=== PATIENT | female | born 1990 | race Caucasian/White ===

== ENCOUNTER 2016-08-09 14:54 | Emergency (ER) | payer MEDICAID ==
[~2016-08-09] VITALS: Ht 142.2 cm; Wt 40.8 kg
[~2016-08-09 14:54] MED LIST: ACET160E11 GT; CEFD250S3 PO; CETI10TA17 PO; CPR250T PO; DCS100C PO; DEPO-PROVERA; DEXL60CA5 PO; DIAZ2.5K GT; DIAZ2.5K PO; DOCU100T7 PO; GLYC1TAB11 PO; LACT1CAP62 PO; METO5TAB79 PO; MULT-608 PO; MULT-974 PO; NF-LEVELIQ GT; NITR-65 PO; NITR25OR6 GT; OMEP-10 GT; ONDA4SOL11 GT; ONDA4SOL2 GT; ONDN4T PO; OXCA600T3 PO; PANT40TA PO; PHEN100O GT; POLY17PO23 GT; PRM25T PR; SCR1T PO; SERT50TA PO; TOPI100T2 PO; TOPI200T19 PO; TPR100T PO; TRL300 PO; [UNRECOGNIZED DRUG - CODE] PO; [UNRECOGNIZED DRUG - OTHER]
--- OUTSIDE RECORDS SUMMARY | 2016-08-09 14:59 | XMS REPORT | Continuity of Care Document ---
Author Author [facility] Organization [facility] Address Unknown Phone Unavailable Care Team Providers Care Inspector Machined Parts Name Role Phone Cyril Ambrocio PCP [phone] Source Comments Some departments are not documenting in the electronic medical record. If you do not see the information that you expected, contact Release of Information in the Health Information Management department at [phone] for further assistance in locating additional records.[facility] Active Allergies and Adverse Reactions No Known Allergies Current Medications Prescription Sig. Disp. Refills Start End Date Status Date OXcarbazepine (TRILEPTAL) Take by mouth twice Active 300 mg/5 mL susp oral daily. 13.5 ml po in the suspension am and 15ml in the evening. pantoprazole DR Take 40 mg by mouth Active (PROTONIX) 40 mg tablet daily. lactulose 10 gram/15 mL Take 10 g by mouth twice Active oral solution daily. sertraline (ZOLOFT) 50 mg Take 50 mg by mouth Active tablet daily. diazepam (VALIUM) 5 mg Take 2.5 mg by mouth Active tablet daily. 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 Social History Tobacco Use Types Packs/Day Years Used Date Never Smoker Smokeless Tobacco: Never Used Tobacco Cessation: Counseling Given: Yes Comments: Alcohol Use Drinks/Week oz/Week Comments No 0 Standard 0.0 drinks or equivalent Last Filed Vital Signs Vital Sign Reading Time Taken Blood Pressure 144/100 10/15/2014 6:30 AM CDT Pulse 103 10/15/2014 6:30 AM CDT Temperature 36.7 C (98 F) 10/15/2014 6:30 AM CDT Respiratory Rate - - Height 1.295 m (4' 3") 01/29/2015 9:10 AM CDT Weight 38.556 kg (85 lb) 01/29/2015 9:10 AM CDT Body Mass Index 22.99 01/29/2015 9:10 AM CDT Oxygen Saturation 93% 10/15/2014 6:30 AM CDT Plan of Care Health Maintenance Due Date Last Done Comments Physical (Comprehensive) 1995 Exam Pertussis Vaccine 1999 Tetanus Vaccine 2005 Cervical Cancer Screening 2009 Influenza Vaccine 03/05/2016 Results from Last 3 Months Not on file
[2016-08-09] MEDS ORDERED: fentaNYL INJECTION 100 MCG/2 ML AMP IVP ONE (15:45)
[2016-08-09] MEDS ORDERED: ONDANSETRON 4 MG/2 ML (SDV) Z0FRAN IVP ONE (15:45)
[2016-08-09] MEDS ORDERED: NS IV 1000 ML 1,000 ML IV SCH (15:45)
--- NOTE | 2016-08-09 15:49 | ED Abdominal Pain ---
General Chief Complaint: -Female Stated Complaint: VOMITING/UNABLE TO URINATE Nursing Triage Note: MOTHER REPORTS PT HAS NOT BEEN VOIDING LIKE USUAL AND HAS HAD N/V TODAY. PT IS MR, BUT CRIES IN PAIN. PT HAS HX OF KIDNEY STONES. Sepsis Screen: No Definite Risk Source of Information: Patient, Caregiver, Family Exam Limitations: Physical Impairments History of Present Illness Time Seen By Provider: 15:47 Initial Comments This 18-year-old female presents with a history of foul-smelling urine for the last 2 days now with associated abdominal pain nausea and vomiting. Past medical history of significance includes ingestion of metallic objects in the past as well as previous kidney stones. Allergies and Home Medications Allergies Coded Allergies: No Known Drug Allergies (Verified , 04/03/15) Home Medications Acetaminophen 160 Mg/5 Ml Btl 320 MG PO Q6HR PRN (Reported) Cefdinir 250 Mg/5 Ml Susp.recon #90 1 TSP PO BID Prescribed by: JULITO NELSON on 11/18/14 1245 Cetirizine Hcl 10 Mg Tablet 10 MG PO DAILY (Reported) Diazepam 2.5 Mg/Kit Kit 20 MG RC PRN (Reported) Diazepam 2.5 Mg/Kit Kit 2.5 MG RC NEEDED (Reported) Docusate Sodium 100 Mg Capsule #30 100 MG PO DAILY Prescribed by: CLEMENCIA PETER on 12/27/13 1323 Lactobacillus Acidophilus 1 Each Capsule 1 EACH PO DAILY (Reported) Multivitamin 1 Each Tablet 1 EACH PO DAILY (Reported) Nitrofurantoin 25 Mg/5 Ml Oral.susp #400 20 ML GT BID Prescribed by: NUNO FLORES on 02/17/151939 Ondansetron HCl 4 Mg/5 Ml Solution #30 4 MG GT Q6H Prescribed by: NUNO FLORES on 02/17/151939 Ondansetron Hcl 4 Mg Tab #20 1 TAB PO QID PRN PRN (Reported) Oxcarbazepine 600 Mg Tablet 600 MG PO DAILY (Reported) Oxcarbazepine 600 Mg Tablet 700 MG PO HS (Reported) Sertraline Hcl 50 Mg Tablet 50 MG PO HS (Reported) Review of Systems Constitutional: No chills, No fever Past Pvgitmv-Sddhqk-Sxfzpt Hx Patient Social History Alcohol Use: Denies Use Recreational Drug Use: No Smoking Status: Never a Smoker 2nd Hand Smoke Exposure: No Recent Foreign Travel: No Contact w/Someone Who Travel: No Recent Infectious Disease Expo: No Recent Hopitalizations: Yes Immunizations Up To Date Tetanus Booster (TDap): Less than 5yrs Date of Pneumonia Vaccine: Dec 27, 2013 Date of Influenza Vaccine: Apr 04, 2014 Seasonal Allergies Seasonal Allergies: Yes Surgeries HX Surgeries: Yes (NEPHROSTOMY, G-TUBE, SALIVARY GLAND, MULTIPLE ORTHO SURGERIES, BMT'S,EGD'S ) Surgeries: Ear Surgery, Eye Surgery, Gallbladder, Orthopedic Respiratory Hx Respiratory Disorders: Yes Respiratory Disorders: Pneumonia Cardiovascular Hx Cardiac Disorders: No Neurological Hx Neurological Disorders: Yes (SEVERE MR) Neurological Disorders: Cerebral Palsy, Developmental Disorder, Seizure Disorder Reproductive System Hx Reproductive Disorders: No (RECIEVES SHOTS EVERY 3 MONTHS) Genitourinary Hx Genitourinary Disorders: Yes Genitourinary Disorders: Kidney Stones, UTI-Chronic Gastrointestinal Hx Gastrointestinal Disorders: Yes (S/P NABEEL) Gastrointestinal Disorders: Pancreatitis, Ulcer, Gall Bladder Disease Musculoskeletal Hx Musculoskeletal Disorders: Yes (LOW MUSCLE TONE, POINTS TOES DOWN, MULTIPLE HIP DISLOCATIONS) Endocrine Hx Endocrine Disorders: No HEENT HX ENT Disorders: Yes (CONSTANT DROOLING--S/P SALIVARY GLAND SURGERY) HEENT Disorders: Chronic Ear Infection Cancer Hx Cancer: No Psychosocial Hx Psychiatric Problems: Yes (MR/DEVELOPMENTAL DELAY) Integumentary HX Skin/Integumentary Disorder: No Blood Transfusions Hx Blood Disorders: No Family Medical History Family Medial History: Cancer Dementia Family history: Allergy Family history: Arthritis Family history: Asthma Family history: Breast disease Family history: Cardiovascular disease Family history: Diabetes mellitus Family history: Gastrointestinal disease Family history: Hypertension Family history: Osteoporosis Hearing loss Heart disease Stroke No Family History of: Abdominal aortic aneurysm Mccracken's disease Alcoholism Aphasia Cancer of colon Cataract Chest pain Congenital heart disease Congestive heart failure Cystic fibrosis Dysphagia Family history: Alzheimer's disease Family history: Coronary thrombosis Family history: Glaucoma Family history: Thyroid disorder Headache Hereditary disease History of - anemia History of - disorder History of - respiratory disease History of drug abuse Human immunodeficiency virus (HIV) seropositivity Hypercholesterolemia Infertile Kidney disease Malignant neoplasm of lung Myocardial infarction Parkinson's disease Prostate cancer Psychotic disorder Seizure disorder Tuberculosis Visual impairment Physical Exam Vital Signs VS - Last 72 Hours, by Label 08/09/16 15:35 Temp 96.0 Pulse 70 Resp 16 B/P 155/103 Pulse Ox 98 O2 Delivery Room Air Capillary Refill : Less Than 3 Seconds General Appearance: WD/WN mild distress Progress/Results/Core Measures Results/Orders Lab Results Laboratory Tests Test 08/09/16 15:25 Range/Units Alanine Aminotransferase (ALT/SGPT) 23 0-55 U/L Albumin 4.1 3.2-4.5 G/DL Alkaline Phosphatase 84 40-136 U/L Anion Gap 16 H 5-14 MMOL/L Aspartate Amino Transf (AST/SGOT) 33 5-34 U/L BUN/Creatinine Ratio 21 Basophils # (Auto) 0.0 0.0-0.1 10^3/uL Basophils (%) (Auto) 0 0-10 % Blood Urea Nitrogen 13 7-18 MG/DL Calcium Level 8.8 8.5-10.1 MG/DL Carbon Dioxide Level 15 L 21-32 MMOL/L Chloride Level 106 98-107 MMOL/L Creatinine 0.63 0.60-1.30 MG/DL Eosinophils # (Auto) 0.0 0.0-0.3 10^3/uL Eosinophils (%) (Auto) 0 0-10 % Estimat Glomerular Filtration Rate > 60 Glucose Level 155 H 70-105 MG/DL Hematocrit 41 35-52 % Hemoglobin 14.4 11.5-16.0 G/DL Lipase 145 H 8-78 U/L Lymphocytes # (Auto) 1.3 1.0-4.0 X 10^3 Lymphocytes (%) (Auto) 13 12-44 % Mean Corpuscular Hemoglobin 32 25-34 PG Mean Corpuscular Hemoglobin Concent 35 32-36 G/DL Mean Corpuscular Volume 90 80-99 FL Mean Platelet Volume 9.1 7.4-10.4 FL Monocytes # (Auto) 0.8 0.0-1.0 X 10^3 Monocytes (%) (Auto) 9 0-12 % Neutrophils # (Auto) 7.4 1.8-7.8 X 10^3 Neutrophils (%) (Auto) 78 H 42-75 % Platelet Count 292 130-400 10^3/uL Potassium Level 3.4 L 3.6-5.0 MMOL/L Red Blood Count 4.56 4.35-5.85 10^6/uL Red Cell Distribution Width 13.3 10.0-14.5 % Sodium Level 137 135-145 MMOL/L Total Bilirubin 0.3 0.1-1.0 MG/DL Total Protein 7.0 6.4-8.2 G/DL Urine Amorphous Sediment MOD RICHARD URATES H /LPF Urine Bacteria NONE /HPF Urine Bilirubin NEGATIVE NEGATIVE Urine Casts NONE /LPF Urine Clarity CLEAR Urine Color YELLOW Urine Crystals PRESENT H /LPF Urine Culture Indicated NO Urine Glucose (UA) NEGATIVE NEGATIVE Urine Ketones 3+ H NEGATIVE Urine Leukocyte Esterase 1+ H NEGATIVE Urine Mucus NEGATIVE /LPF Urine Nitrite NEGATIVE NEGATIVE Urine Protein 1+ H NEGATIVE Urine RBC NONE /HPF Urine RBC (Auto) NEGATIVE NEGATIVE Urine Specific [place] 1.015 L 1.016-1.022 Urine Squamous Epithelial Cells 0-2 /HPF Urine Urobilinogen NORMAL NORMAL MG/DL Urine WBC 0-2 /HPF Urine pH 6.5 5-9 White Blood Count 9.5 4.3-11.0 10^3/uL My Orders Orders-BRINA COPELAND MD Cbc With Automated Diff (08/09/16 15:45) Comprehensive Metabolic Panel (08/09/16 15:45) Ua Culture If Indicated (08/09/16 15:45) Ct Abdomen/Pelvis W (08/09/16 15:45) Lipase (08/09/16 15:45) Ns Iv 1000 Ml (Sodium Chloride 0.9%) (08/09/16 15:45) Ondansetron Injection (Zofran Injectio (08/09/16 15:45) Fentanyl Injection (Sublimaze Injection (08/09/16 15:45) Iohexol Injection (Omnipaque 350 Mg/Ml 1 (08/09/16 16:00) Ns (Ivpb) (Sodium Chloride 0.9% Ivpb Bag (08/09/16 16:00) Medications Given in ED Current Medications Medications Dose Ordered Sig/Fawad Route Start Time Stop Time Status Last Admin Dose Admin Fentanyl Citrate 50 mcg ONCE ONCE IVP 08/09/16 15:45 08/09/16 15:47 DC 08/09/16 15:56 50 MCG Iohexol 50 ml ONCE ONCE IV 08/09/16 16:00 08/09/16 16:01 DC 08/09/16 16:09 50 ML Ondansetron HCl 4 mg ONCE ONCE IVP 08/09/16 15:45 08/09/16 15:47 DC 08/09/16 15:55 4 MG Sodium Chloride 100 ml ONCE ONCE IV 08/09/16 16:00 08/09/16 16:01 DC 08/09/16 16:09 80 ML Vital Signs/I&O Vital Sign - Last 12Hours 08/09/16 15:35 Temp 96.0 Pulse 70 Resp 16 B/P 155/103 Pulse Ox 98 O2 Delivery Room Air Blood Pressure Mean: 120 Progress Note : Time: 18:18 Progress Note Patient's laboratory evaluation CT films demonstrate evidence of acute pathology. There was no evidence of UTI. There is no evidence of ureterolithiasis. The patient's lipase was elevated at 145. The patient's mother relates that the patient has had episodes of pancreatitis in the past without having dramatic elevation of lipase. Patient's pain and nausea subsided with fentanyl and Zofran. I discussed at length treatment options with the patient's mother. We settled on scripts of Zofran and hydrocodone for nausea and pain should they recur. Mother is planning on following up closely with her physician, Dr. Arango, on Wednesday. She will return to the emergency department in the interim if there are any further problems or questions Departure Impression Impression: Primary Impression: Abdominal pain Qualified Code: R10.84 - Generalized abdominal pain Disposition: HOME, SELF-CARE Condition: Improved Departure-Patient Inst. Decision time for Depature: 18:21 Referrals: VIJAY ARANGO DO (PCP/Family) Primary Care Physician Patient Instructions: Acute Pain, Adult Add. Discharge Instructions: Zofran and Vicodin as needed. Follow-up with your doctor on Wednesday for recheck. Return if any problems or questions in the interim. All discharge instructions reviewed with patient and/or family. Voiced understanding. BRINA COPELAND MD Aug 09, 2016 15:49
[2016-08-09 15:52] LABS: BASOPHILS % (AUTO) 0 % (0-10); EOSINOPHILS % (AUTO) 0 % (0-10); LYMPHOCYTES # (AUTO) 1.3 X 10^3 (1.0-4.0); LYMPHOCYTES % (AUTO) 13 % (12-44); MEAN CORPUSCULAR HEMOGLOBIN 32 PG (25-34); MEAN CORPUSCULAR HGB CONC 35 G/DL (32-36); MEAN CORPUSCULAR VOLUME 90 FL (80-99); MEAN PLATELET VOLUME 9.1 FL (7.4-10.4); MONOCYTES # (AUTO) 0.8 X 10^3 (0.0-1.0); MONOCYTES % (AUTO) 9 % (0-12); NEUTROPHILS # (AUTO) 7.4 X 10^3 (1.8-7.8); NEUTROPHILS % (AUTO) 78 % (42-75); PLATELET COUNT 292 10^3/uL (130-400); RED BLOOD COUNT 4.56 10^6/uL (4.35-5.85); RED CELL DISTRIBUTION WIDTH 13.3 % (10.0-14.5); WHITE BLOOD COUNT 9.5 10^3/uL (4.3-11.0)
[2016-08-09 15:53] LABS: BILIRUBIN,URINE NEGATIVE (NEGATIVE); KETONES,URINE 3+ (NEGATIVE); LEUKOCYTE ESTERASE ,URINE 1+ (NEGATIVE); NITRITE,URINE NEGATIVE (NEGATIVE); PH,URINE 6.5 (5-9); PROTEIN,URINE 1+ (NEGATIVE); UROBILINOGEN,URINE NORMAL (NORMAL)
[2016-08-09] MEDS ORDERED: IOHEXOL 350 MG/ML 100 ML (OMNIPAQUE 350) VIAL IV ONE (16:00)
[2016-08-09] MEDS ORDERED: NS 100 ML (IVPB) BAG IV ONE (16:00)
[2016-08-09 16:01] LABS: SQUAMOUS EPITHELIAL CELL,UR 0-2 /HPF; WBC,URINE 0-2 /HPF
[2016-08-09 16:08] LABS: ALANINE AMINOTRANSFERASE 23 U/L (0-55); ALBUMIN 4.1 G/DL (3.2-4.5); ANION GAP 16 MMOL/L (5-14); ASPARTATE AMINO TRANSFERASE 33 U/L (5-34); BILIRUBIN,TOTAL 0.3 MG/DL (0.1-1.0); BLOOD UREA NITROGEN 13 MG/DL (7-18); BUN/CREATININE RATIO 21; CALCIUM 8.8 MG/DL (8.5-10.1); CARBON DIOXIDE 15 MMOL/L (21-32); CHLORIDE 106 MMOL/L (98-107); CREATININE SERUM 0.63 MG/DL (0.60-1.30); GFR ESTIMATED > 60; GLUCOSE 155 MG/DL (70-105); LIPASE 145 U/L (8-78); POTASSIUM 3.4 MMOL/L (3.6-5.0); SODIUM 137 MMOL/L (135-145)
--- NOTE | 2016-08-09 16:54 | Diagnostic Imaging Report ---
Clinical indication: Patient with irregular voiding today with nausea and vomiting. Patient has history of stones. Patient has feeding tube in place. Exam: CT scan of the abdomen and pelvis performed with 50 cc of Omnipaque 300 IV contrast. Portal venous and delayed phase were obtained. Coronal reformatted images were created. Comparison: CT scan of the abdomen and pelvis performed with IV contrast dated 02/17/2015. Findings: Visualized lung bases are clear. Bones show no significant abnormality. There is interval increased size of the cyst involving the mid right kidney which now measures 6.8 cm in greatest dimension compared to the prior study measured at 6.0 cm. Stable small 5 mm hypoechoic area within the right lobe of the liver, likely representing a cyst. There is no hydronephrosis. There is a 2 mm nonobstructive stone within the inferior pole of the left kidney. Otherwise, the liver, spleen, pancreas, adrenal glands and both kidneys show no other significant abnormality. Gallbladder is surgically resected. Gastrostomy tube is again seen. There is no evidence of intestinal obstruction. Appendix is unremarkable. There is a small amount of stool within the colon. There is no intra-abdominal free air or free fluid. There is a 1.8 cm cystic structure in the right adnexa region. Otherwise, the uterus and adnexal structures are otherwise unremarkable. The bladder is partially fluid distended with no gross abnormality seen. Impression: 1: Nonobstructive left nephrolithiasis. 2: Interval increased size of the right renal cyst. 3: Stable liver cyst. 4: 1.8 cm cystic structure within the right adnexal region. Dictated by: Dictated on workstation # [id number]
[2016-08-09 18:30] VITALS: BP 130/74
== END 2016-08-09 18:30 | disposition home or self-care (01) ==
LOC: EDUNIT# 14:54 → ER 14:55
DX: R10.84 Generalized abdominal pain (principal); N20.0 Calculus of kidney; N83.201 Unspecified ovarian cyst, right side; N28.1 Cyst of kidney, acquired; K76.89 Other specified diseases of liver; G80.9 Cerebral palsy, unspecified; F72 Severe intellectual disabilities; Z93.1 Gastrostomy status; Z93.6 Other artificial openings of urinary tract status
CPT/HCPCS: 36415; 51701; 74177; 80053; 81000; 83690; 85025; 96361; 96374; 96375; 99284

== ENCOUNTER → 2016-08-11 | Outpatient (CLI) | payer MEDICAID ==
[~2016-08-11] MED LIST changes: +LACT10SO46 GT; +OXCA300O5 GT; +RANI150T15 PO
--- OUTSIDE RECORDS SUMMARY | 2016-08-11 13:46 | XMS REPORT | Continuity of Care Document ---
Author Author [facility] Organization [facility] Address Unknown Phone Unavailable Care Team Providers Care Biodiesel Process Control Technician Name Role Phone Cyril Ambrocio PCP [phone] Source Comments Some departments are not documenting in the electronic medical record. If you do not see the information that you expected, contact Release of Information in the Health Information Management department at [phone] for further assistance in locating additional records.[facility] Active Allergies and Adverse Reactions No Known [...]
[2016-08-11 14:03] LABS: MEAN PLATELET VOLUME 8.6 FL (7.4-10.4); RED BLOOD COUNT 4.43 10^6/uL (4.35-5.85); RED CELL DISTRIBUTION WIDTH 13.4 % (10.0-14.5)
[2016-08-11 14:18] LABS: ALANINE AMINOTRANSFERASE 39 U/L (0-55); AMYLASE 94 U/L (25-125); ANION GAP 6 MMOL/L (5-14); ASPARTATE AMINO TRANSFERASE 52 U/L (5-34); BILIRUBIN,TOTAL 0.2 MG/DL (0.1-1.0); BLOOD UREA NITROGEN 12 MG/DL (7-18); BUN/CREATININE RATIO 18; CALCIUM 8.6 MG/DL (8.5-10.1); CARBON DIOXIDE 28 MMOL/L (21-32); CHLORIDE 106 MMOL/L (98-107); CREATININE SERUM 0.66 MG/DL (0.60-1.30); GFR ESTIMATED > 60; GLUCOSE 91 MG/DL (70-105); LIPASE 65 U/L (8-78); POTASSIUM 3.2 MMOL/L (3.6-5.0); SODIUM 140 MMOL/L (135-145); TOTAL PROTEIN 6.5 G/DL (6.4-8.2)
== END ==
LOC: LAB 13:41
PROVIDERS: ATTEND Family Medicine
DX: R50.9 Fever, unspecified (principal); R10.9 Unspecified abdominal pain
CPT/HCPCS: 36415; 80053; 82150; 83690; 85027; 87804

== ENCOUNTER → 2016-09-08 | Outpatient (CLI) | payer MEDICAID ==
[~2016-09-08] VITALS: Ht 142.2 cm; Wt 40.8 kg
--- OUTSIDE RECORDS SUMMARY | 2016-09-08 08:39 | XMS REPORT | Continuity of Care Document ---
Author Author [facility] Organization [facility] Address Unknown Phone Unavailable Care Team Providers Care Digital Content Marketing Manager Name Role Phone Cyril Ambrocio PCP [phone] Source Comments Some departments are not documenting in the electronic medical record. If you do not see the information that you expected, contact Release of Information in the Health Information Management department at [phone] for further assistance in locating additional records.[facility] Active Allergies and Adverse Reactions No Known [...]
[2016-09-08 09:03] VITALS: BP 121/77
[2016-09-08 16:46] LABS: BILIRUBIN,URINE NEGATIVE (NEGATIVE); KETONES,URINE NEGATIVE (NEGATIVE); LEUKOCYTE ESTERASE ,URINE NEGATIVE (NEGATIVE); NITRITE,URINE NEGATIVE (NEGATIVE); PH,URINE 6.5 (5-9); PROTEIN,URINE 1+ (NEGATIVE); UROBILINOGEN,URINE NORMAL (NORMAL)
== END ==
LOC: SDC 08:36
PROVIDERS: ATTEND Family Medicine
DX: R32 Unspecified urinary incontinence (principal); R35.8 Other polyuria
CPT/HCPCS: 81000; 87077; 87088; 87186

== ENCOUNTER 2016-09-26 13:42 | Emergency (ER) | payer MEDICAID ==
[~2016-09-26] VITALS: Ht 142.2 cm; Wt 40.8 kg
[~2016-09-26 13:42] MED LIST changes: -LACT10SO46 GT; -OXCA300O5 GT; -RANI150T15 PO
[2016-09-26 14:17] LABS: BASOPHILS % (AUTO) 0 % (0-10); EOSINOPHILS % (AUTO) 0 % (0-10); LYMPHOCYTES # (AUTO) 1.8 X 10^3 (1.0-4.0); LYMPHOCYTES % (AUTO) 18 % (12-44); MEAN CORPUSCULAR HEMOGLOBIN 31 PG (25-34); MEAN CORPUSCULAR HGB CONC 34 G/DL (32-36); MEAN CORPUSCULAR VOLUME 93 FL (80-99); MEAN PLATELET VOLUME 8.5 FL (7.4-10.4); MONOCYTES # (AUTO) 0.8 X 10^3 (0.0-1.0); MONOCYTES % (AUTO) 8 % (0-12); NEUTROPHILS # (AUTO) 7.7 X 10^3 (1.8-7.8); NEUTROPHILS % (AUTO) 75 % (42-75); PLATELET COUNT 246 10^3/uL (130-400); RED BLOOD COUNT 4.46 10^6/uL (4.35-5.85); WHITE BLOOD COUNT 10.3 10^3/uL (4.3-11.0)
[2016-09-26 14:22] LABS: BILIRUBIN,URINE NEGATIVE (NEGATIVE); KETONES,URINE NEGATIVE (NEGATIVE); LEUKOCYTE ESTERASE ,URINE 1+ (NEGATIVE); NITRITE,URINE NEGATIVE (NEGATIVE); PH,URINE 6 (5-9); PROTEIN,URINE 1+ (NEGATIVE); UROBILINOGEN,URINE NORMAL (NORMAL)
[2016-09-26 14:30] LABS: SQUAMOUS EPITHELIAL CELL,UR 0-2 /HPF
[2016-09-26] MEDS ORDERED: fentaNYL INJECTION 100 MCG/2 ML AMP IVP ONE (14:30)
--- NOTE | 2016-09-26 15:37 | Diagnostic Imaging Report ---
PROCEDURE: CT urinary tract, rule out kidney stone. TECHNIQUE: Multiple contiguous axial images were obtained through the abdomen and pelvis without the use of intravenous contrast. INDICATION: Nausea and vomiting. COMPARISON: 08/09/2016. FINDINGS: Lung bases remain clear. A 2 mm calculus noted in the lower pole calyx of the left kidney is present and unchanged. There is no hydronephrosis. Large cyst in the right kidney is also present and unchanged. The liver appears normal. Bile ducts are not dilated. Pancreas and spleen are normal. The adrenal glands are normal. A gastric tube is present in good position. The small bowel is not distended. The colon shows normal stool and gas pattern. There is moderate volume of stool in the rectum suggesting some impaction. Bladder is filled with urine though not over distended. No pelvic masses. There is no free air or free fluid. IMPRESSION: 1. There has been significant increase in stool volume since previous exam. 2. No evidence of bowel obstruction. 3. Small calculus in lower pole calyx of the left kidney is unchanged with no evidence of hydronephrosis. Large cyst in right kidney, unchanged. 4. The gastric tube appears in good position. Stomach is not distended. Dictated by: Dictated on workstation # [id number]
--- NOTE | 2016-09-26 16:05 | ED Abdominal Pain ---
General Chief Complaint: Abdominal/GI Problems Stated Complaint: VOMITING, POSS KIDNEY STONES Nursing Triage Note: MOTHER REPORTS ABD PAIN, N/V SINCE THIS AM. PT HAS HX OF KIDNEY STONES. Sepsis Screen: No Definite Risk Source of Information: Caregiver Exam Limitations: No Limitations History of Present Illness Time Seen By Provider: 15:30 Initial Comments The patient is a 26-year-old white female who is intellectually and developmentally challenged. She was brought to the emergency room by her parents today they felt that she was having pain. Her past history includes kidney stones with obstruction as well as a sequence of chronic vomiting which ultimately proved to be as a function of pancreatitis and duodenal ulcer disease. She is also known to have a cyst on her right kidney. Previous CT scans suggested a intraparenchymal stone on the left kidney. She is fed by a implanted feeding tube Timing/Duration: 4-6 Hours Allergies and Home Medications Allergies Coded Allergies: No Known Drug Allergies (Verified , 04/03/15) Home Medications Acetaminophen 160 Mg/5 Ml Btl, 320 MG PO Q6HR PRN, (Reported) Cefdinir 250 Mg/5 Ml Susp.recon, 1 TSP PO BID, #90 Prescribed by: JULITO NELSON on 11/18/14 1245 Cetirizine Hcl 10 Mg Tablet, 10 MG PO DAILY, (Reported) Diazepam 2.5 Mg/Kit Kit, 20 MG RC PRN, (Reported) Diazepam 2.5 Mg/Kit Kit, 2.5 MG RC NEEDED, (Reported) Docusate Sodium 100 Mg Capsule, 100 MG PO DAILY, #30 Prescribed by: CLEMENCIA PETER on 12/27/13 1323 Lactobacillus Acidophilus 1 Each Capsule, 1 EACH PO DAILY, (Reported) Multivitamin 1 Each Tablet, 1 EACH PO DAILY, (Reported) Nitrofurantoin 25 Mg/5 Ml Oral.susp, 20 ML GT BID, #400 Prescribed by: NUNO FLORES on 02/17/151939 Ondansetron HCl 4 Mg/5 Ml Solution, 4 MG GT Q6H, #30 Prescribed by: NUNO FLORES on 02/17/151939 Ondansetron Hcl 4 Mg Tab, 1 TAB PO QID PRN, #20 (Reported) Oxcarbazepine 600 Mg Tablet, 600 MG PO DAILY, (Reported) Oxcarbazepine 600 Mg Tablet, 700 MG PO HS, (Reported) Sertraline Hcl 50 Mg Tablet, 50 MG PO HS, (Reported) Review of Systems Constitutional: see HPI EENTM: No Symptoms Reported Respiratory: No Symptoms Reported Cardiovascular: No Symptoms Reported Gastrointestinal: See HPI Genitourinary: See HPI Musculoskeletal: no symptoms reported Skin: no symptoms reported Psychiatric/Neurological: No Symptoms Reported Endocrine: No Symptoms Reported Hematologic/Lymphatic: No Symptoms Reported Past Lvyilbb-Seobls-Jkltno Hx Patient Social History Alcohol Use: Denies Use Recreational Drug Use: No Smoking Status: Never a Smoker 2nd Hand Smoke Exposure: No Recent Foreign Travel: No Contact w/Someone Who Travel: No Recent Infectious Disease Expo: No Recent Hopitalizations: No Immunizations Up To Date Tetanus Booster (TDap): Less than 5yrs Date of Pneumonia Vaccine: Dec 27, 2013 Date of Influenza Vaccine: Apr 04, 2014 Seasonal Allergies Seasonal Allergies: Yes Surgeries HX Surgeries: Yes (NEPHROSTOMY, G-TUBE, SALIVARY GLAND, MULTIPLE ORTHO SURGERIES, BMT'S,EGD'S ) Surgeries: Ear Surgery, Eye Surgery, Gallbladder, Orthopedic Respiratory Hx Respiratory Disorders: Yes Respiratory Disorders: Pneumonia Cardiovascular Hx Cardiac Disorders: No Neurological Hx Neurological Disorders: Yes (SEVERE MR) Neurological Disorders: Cerebral Palsy, Developmental Disorder, Seizure Disorder Reproductive System Hx Reproductive Disorders: No (RECIEVES SHOTS EVERY 3 MONTHS) Genitourinary Hx Genitourinary Disorders: Yes Genitourinary Disorders: Kidney Stones, UTI-Chronic Gastrointestinal Hx Gastrointestinal Disorders: Yes (S/P NABEEL) Gastrointestinal Disorders: Pancreatitis, Ulcer, Gall Bladder Disease Musculoskeletal Hx Musculoskeletal Disorders: Yes (LOW MUSCLE TONE, POINTS TOES DOWN, MULTIPLE HIP DISLOCATIONS) Endocrine Hx Endocrine Disorders: No HEENT HX ENT Disorders: Yes (CONSTANT DROOLING--S/P SALIVARY GLAND SURGERY) HEENT Disorders: Chronic Ear Infection Cancer Hx Cancer: No Psychosocial Hx Psychiatric Problems: Yes (MR/DEVELOPMENTAL DELAY) Integumentary HX Skin/Integumentary Disorder: No Blood Transfusions Hx Blood Disorders: No Family Medical History Family Medial History: Cancer Dementia Family history: Allergy Family history: Arthritis Family history: Asthma Family history: Breast disease Family history: Cardiovascular disease Family history: Diabetes mellitus Family history: Gastrointestinal disease Family history: Hypertension Family history: Osteoporosis Hearing loss Heart disease Stroke No Family History of: Abdominal aortic aneurysm Hugo's disease Alcoholism Aphasia Cancer of colon Cataract Chest pain Congenital heart disease Congestive heart failure Cystic fibrosis Dysphagia Family history: Alzheimer's disease Family history: Coronary thrombosis Family history: Glaucoma Family history: Thyroid disorder Headache Hereditary disease History of - anemia History of - disorder History of - respiratory disease History of drug abuse Human immunodeficiency virus (HIV) seropositivity Hypercholesterolemia Infertile Kidney disease Malignant neoplasm of lung Myocardial infarction Parkinson's disease Prostate cancer Psychotic disorder Seizure disorder Tuberculosis Visual impairment Physical Exam Vital Signs VS - Last 72 Hours, by Label 09/26/16 13:57 Temp 97.3 Pulse 82 Resp 16 B/P (MAP) 132/96 Pulse Ox 99 O2 Delivery Room Air Capillary Refill : Less Than 3 Seconds General Appearance: mild distress Neck: full range of motion Respiratory: chest non-tender, lungs clear, normal breath sounds, no respiratory distress, no accessory muscle use Cardiovascular: normal peripheral pulses, regular rate, rhythm, no edema, no gallop, no JVD, no murmur Gastrointestinal: abnormal bowel sounds Extremities: normal range of motion, non-tender, normal inspection, no pedal edema, no calf tenderness, normal capillary refill, pelvis stable Skin: normal color, warm/dry Lymphatic: no adenopathy Progress/Results/Core Measures Results/Orders Lab Results Laboratory Tests Test 09/26/16 14:10 09/26/16 14:12 Range/Units White Blood Count 10.3 4.3-11.0 10^3/uL Red Blood Count 4.46 4.35-5.85 10^6/uL Hemoglobin 14.0 11.5-16.0 G/DL Hematocrit 42 35-52 % Mean Corpuscular Volume 93 80-99 FL Mean Corpuscular Hemoglobin 31 25-34 PG Mean Corpuscular Hemoglobin Concent 34 32-36 G/DL Red Cell Distribution Width 13.0 10.0-14.5 % Platelet Count 246 130-400 10^3/uL Mean Platelet Volume 8.5 7.4-10.4 FL Neutrophils (%) (Auto) 75 42-75 % Lymphocytes (%) (Auto) 18 12-44 % Monocytes (%) (Auto) 8 0-12 % Eosinophils (%) (Auto) 0 0-10 % Basophils (%) (Auto) 0 0-10 % Neutrophils # (Auto) 7.7 1.8-7.8 X 10^3 Lymphocytes # (Auto) 1.8 1.0-4.0 X 10^3 Monocytes # (Auto) 0.8 0.0-1.0 X 10^3 Eosinophils # (Auto) 0.0 0.0-0.3 10^3/uL Basophils # (Auto) 0.0 0.0-0.1 10^3/uL Lipase 172 H 8-78 U/L Urine Color YELLOW Urine Clarity SLIGHTLY CLOUDY Urine pH 6 5-9 Urine Specific Jenkins 1.025 H 1.016-1.022 Urine Protein 1+ H NEGATIVE Urine Glucose (UA) NEGATIVE NEGATIVE Urine Ketones NEGATIVE NEGATIVE Urine Nitrite NEGATIVE NEGATIVE Urine Bilirubin NEGATIVE NEGATIVE Urine Urobilinogen NORMAL NORMAL MG/DL Urine Leukocyte Esterase 1+ H NEGATIVE Urine RBC (Auto) NEGATIVE NEGATIVE Urine RBC NONE /HPF Urine WBC 2-5 /HPF Urine Squamous Epithelial Cells 0-2 /HPF Urine Crystals NONE /LPF Urine Bacteria TRACE /HPF Urine Casts NONE /LPF Urine Mucus NEGATIVE /LPF Urine Culture Indicated NO My Orders Orders - JULITO NELSON MD Cbc With Automated Diff (09/26/16 13:46) Ua Culture If Indicated (09/26/16 13:46) Fentanyl Injection (Sublimaze Injection (09/26/16 14:30) Ct Abd/Pelvis Wo(Kidney Stone) (09/26/16 14:50) Lipase (09/26/16 15:57) Medications Given in ED Current Medications Medications Dose Ordered Sig/Fawad Route Start Time Stop Time Status Last Admin Dose Admin Fentanyl Citrate 50 mcg ONCE ONCE IVP 09/26/16 14:30 09/26/16 14:31 DC 09/26/16 14:28 50 MCG Vital Signs/I&O Vital Sign - Last 12Hours 09/26/16 13:57 Temp 97.3 Pulse 82 Resp 16 B/P (MAP) 132/96 Pulse Ox 99 O2 Delivery Room Air Blood Pressure Mean: 108 Departure Impression Impression: Primary Impression: Abdominal pain Additional Impression: constipation Disposition: 01 HOME, SELF-CARE Condition: Stable/Unchanged Departure-Patient Inst. Referrals: VIJAY GALVEZ DO (PCP/Family) Primary Care Physician Add. Discharge Instructions: All discharge instructions reviewed with patient and/or family. Voiced understanding. Use a rectal suppository tonight. Consult your provider for additional suggestions JULITO NELSON MD Sep 26, 2016 16:05
[2016-09-26 16:30] VITALS: BP 132/96
--- OUTSIDE RECORDS SUMMARY | 2016-10-13 11:47 | XMS REPORT | Continuity of Care Document ---
Author Author [facility] Organization [facility] Address Unknown Phone Unavailable Care Team Providers Care Controller Operations And Hr Manager Name Role Phone Cyril Ambrocio PCP [phone] Source Comments Some departments are not documenting in the electronic medical record. If you do not see the information that you expected, contact Release of Information in the Health Information Management department at [phone] for further assistance in locating additional records.[facility] [...] 2005 Cervical Cancer Screening 2009 Influenza Vaccine 03/05/2017 Results from Last 3 Months Not on file
--- OUTSIDE RECORDS SUMMARY | 2016-10-13 11:48 | XMS REPORT | Continuity of Care Document ---
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 mean corpuscular hemoglobin concentration measurement ( mass/volume) 34 g/dL 32-36 Automated erythrocyte distribution width ratio 12.9 % 10.0-14.5 Automated blood platelet count (count/volume) 271 10*3/uL 130-400 Automated blood platelet mean volume measurement 8.7 [foz_us ] 7.4-10.4 Automated blood neutrophils/100 leukocytes 40 % 42-75 Automated blood lymphocytes/100 leukocytes 43 % 12-44 Blood monocytes/100 leukocytes 15 % 0-12 Automated blood eosinophils/100 leukocytes 2 % 0-10 Automated blood basophils/100 leukocytes 0 % 0-10 Blood neutrophils automated count (number/volume) 1.9 10*3 1.8-7.8 Blood lymphocytes automated count (number/volume) 2.0 10*3 1.0-4.0 Blood monocytes automated count (number/volume) 0.7 10*3 0.0-1.0 Automated eosinophil count 0.1 10*3/uL 0.0-0.3 Automated blood basophil count (count/volume) 0.0 10*3/uL 0.0-0.1 Complete blood count (CBC) with automated white blood cell (WBC) differential - 08/09/16 15:25 Blood leukocytes automated count (number/volume) 9.5 10*3/ uL 4.3-11.0 Blood erythrocytes automated count (number/volume) 4.56 10*6 /uL 4.35-5.85 Venous blood hemoglobin measurement (mass/volume) 14.4 g/dL 11.5-16.0 Blood hematocrit (volume fraction) 41 % 35-52 Automated erythrocyte mean corpuscular volume 90 [foz_us] 80-99 Automated erythrocyte mean corpuscular hemoglobin (mass per erythrocyte) 32 pg 25-34 Automated erythrocyte mean corpuscular hemoglobin concentration measurement ( mass/volume) 35 g/dL 32-36 Automated erythrocyte distribution width ratio 13.3 % 10.0-14.5 Automated blood platelet count (count/volume) 292 10*3/uL 130-400 Automated blood platelet mean volume measurement 9.1 [foz_us ] 7.4-10.4 Automated blood neutrophils/100 leukocytes 78 % 42-75 Automated blood lymphocytes/100 leukocytes 13 % 12-44 Blood monocytes/100 leukocytes 9 % 0-12 Automated blood eosinophils/100 leukocytes 0 % 0-10 Automated blood basophils/100 leukocytes 0 % 0-10 Blood neutrophils automated count (number/volume) 7.4 10*3 1.8-7.8 Blood lymphocytes automated count (number/volume) 1.3 10*3 1.0-4.0 Blood monocytes automated count (number/volume) 0.8 10*3 0.0-1.0 Automated eosinophil count 0.0 10*3/uL 0.0-0.3 Automated blood basophil count (count/volume) 0.0 10*3/uL 0.0-0.1 Complete urinalysis with reflex to culture - 08/09/16 15:25 Urine color determination YELLOW NRG Urine clarity determination CLEAR NRG Urine pH measurement by test strip 6.5 5 -9 Specific gravity of urine by test strip 1.015 1.016-1.022 Urine protein assay by test strip, semi-quantitative 1+ NEGATIVE Urine glucose detection by automated test strip NEGATIVE NEGATIVE Erythrocytes detection in urine sediment by light microscopy NEGATIVE NEGATIVE Urine ketones detection by automated test strip 3+ NEGATIVE Urine nitrite detection by test strip NEGATIVE NEGATIVE Urine total bilirubin detection by test strip NEGATIVE NEGATIVE Urine urobilinogen measurement by automated test strip (mass/volume) NORMAL NORMAL Urine leukocyte esterase detection by dipstick 1+ NEGATIVE Automated urine sediment erythrocyte count by microscopy (number/high power field) NONE NRG Automated urine sediment leukocyte count by microscopy (number/high power field ) [HPF] NRG Bacteria detection in urine sediment by light microscopy NONE NRG Squamous epithelial cells detection in urine sediment by light microscopy 0-2 NRG Crystals detection in urine sediment by light microscopy PRESENT NRG Casts detection in urine sediment by light microscopy NONE NRG Mucus detection in urine sediment by light microscopy NEGATIVE NRG Complete urinalysis with reflex to culture NO NRG Amorphous sediment detection in urine sediment by light microscopy [facility] Comprehensive metabolic panel - 08/09/16 15:25 Serum or plasma sodium measurement (moles/volume) 137 mmol/ L 135-145 Serum or plasma potassium measurement (moles/volume) 3.4 mmol/L 3.6-5.0 Serum or plasma chloride measurement (moles/volume) 106 mmol /L 98-107 Carbon dioxide 15 mmol/L 21-32 Serum or plasma anion gap determination (moles/volume) 16 mmol/L 5-14 Serum or plasma urea nitrogen measurement (mass/volume) 13 mg/dL 7-18 Serum or plasma creatinine measurement (mass/volume) 0.63 mg /dL 0.60-1.30 Serum or plasma urea nitrogen/creatinine mass ratio 21 NRG Serum or plasma creatinine measurement with calculation of estimated glomerular filtration rate > NRG Serum or plasma glucose measurement (mass/volume) 155 mg/dL 70-105 Serum or plasma calcium measurement (mass/volume) 8.8 mg/dL 8.5-10.1 Serum or plasma total bilirubin measurement (mass/volume) 0.3 mg/dL 0.1-1.0 Serum or plasma alkaline phosphatase measurement (enzymatic activity/volume) 84 U/L 40-136 Serum or plasma aspartate aminotransferase measurement (enzymatic activity/ volume) 33 U/L 5-34 Serum or plasma alanine aminotransferase measurement (enzymatic activity/volume ) 23 U/L 0-55 Serum or plasma protein measurement (mass/volume) 7.0 g/dL 6.4-8.2 Serum or plasma albumin measurement (mass/volume) 4.1 g/dL 3.2-4.5 Lipase - 02/05/17 15:25 Lipase 145 U/L 8-78 Comprehensive metabolic panel - 08/11/16 13:50 Serum or plasma sodium measurement (moles/volume) 140 mmol/ L 135-145 Serum or plasma potassium measurement (moles/volume) 3.2 mmol/L 3.6-5.0 Serum or plasma chloride measurement (moles/volume) 106 mmol /L 98-107 Carbon dioxide 28 mmol/L 21-32 Serum or plasma anion gap determination (moles/volume) 6 mmol/L 5-14 Serum or plasma urea nitrogen measurement (mass/volume) 12 mg/dL 7-18 Serum or plasma creatinine measurement (mass/volume) 0.66 mg /dL 0.60-1.30 Serum or plasma urea nitrogen/creatinine mass ratio 18 NRG Serum or plasma creatinine measurement with calculation of estimated glomerular filtration rate > NRG Serum or plasma glucose measurement (mass/volume) 91 mg/dL 70-105 Serum or plasma calcium measurement (mass/volume) 8.6 mg/dL 8.5-10.1 Serum or plasma total bilirubin measurement (mass/volume) 0.2 mg/dL 0.1-1.0 Serum or plasma alkaline phosphatase measurement (enzymatic activity/volume) 70 U/L 40-136 Serum or plasma aspartate aminotransferase measurement (enzymatic activity/ volume) 52 U/L 5-34 Serum or plasma alanine aminotransferase measurement (enzymatic activity/volume ) 39 U/L 0-55 Serum or plasma protein measurement (mass/volume) 6.5 g/dL 6.4-8.2 Serum or plasma albumin measurement (mass/volume) 4.0 g/dL 3.2-4.5 Serum or plasma amylase measurement (enzymatic activity/volume) - 08/11/16 13: 50 Serum or plasma amylase measurement (enzymatic activity/volume) 94 U/L 25-125 Lipase - 08/11/16 13:50 Lipase 65 U/L 878 Automated blood complete blood count (hemogram) panel - 08/11/16 13:56 Blood leukocytes automated count (number/volume) 4.0 10*3/ uL 4.3-11.0 Blood erythrocytes automated count (number/volume) 4.43 10*6 /uL 4.35-5.85 Venous blood hemoglobin measurement (mass/volume) 13.8 g/dL 11.5-16.0 Blood hematocrit (volume fraction) 41 % 35-52 Automated erythrocyte mean corpuscular volume 93 [foz_us] 80-99 Automated erythrocyte mean corpuscular hemoglobin (mass per erythrocyte) 31 pg 25-34 Automated erythrocyte mean corpuscular hemoglobin concentration measurement ( mass/volume) 34 g/dL 32-36 Automated erythrocyte distribution width ratio 13.4 % 10.0-14.5 Automated blood platelet count (count/volume) 291 10*3/uL 130-400 Automated blood platelet mean volume measurement 8.6 [foz_us ] 7.4-10.4 Influenza virus A and B antigen detection - 08/11/16 13:56 FLU RESULT NEGATIVE FOR INFLUENZA A AND B ANTIGENS BY IA NRG Complete urinalysis with reflex to culture - 09/08/16 09:00 Urine color determination YELLOW NRG Urine clarity determination CLEAR NRG Urine pH measurement by test strip 6.5 5 -9 Specific gravity of urine by test strip 1.015 1.016-1.022 Urine protein assay by test strip, semi-quantitative 1+ NEGATIVE Urine glucose detection by automated test strip NEGATIVE NEGATIVE Erythrocytes detection in urine sediment by light microscopy NEGATIVE NEGATIVE Urine ketones detection by automated test strip NEGATIVE NEGATIVE Urine nitrite detection by test strip NEGATIVE NEGATIVE Urine total bilirubin detection by test strip NEGATIVE NEGATIVE Urine urobilinogen measurement by automated test strip (mass/volume) NORMAL NORMAL Urine leukocyte esterase detection by dipstick NEGATIVE NEGATIVE Automated urine sediment erythrocyte count by microscopy (number/high power field) RARE NRG Automated urine sediment leukocyte count by microscopy (number/high power field ) [HPF] NRG Bacteria detection in urine sediment by light microscopy NONE NRG Squamous epithelial cells detection in urine sediment by light microscopy 2-5 NRG Crystals detection in urine sediment by light microscopy NONE NRG Casts detection in urine sediment by light microscopy NONE NRG Mucus detection in urine sediment by light microscopy SMALL NRG Complete urinalysis with reflex to culture NO NRG Bacterial urine culture - 09/08/16 09:00 Bacterial urine culture [id number] NRG COLONY COUNT 10,000/ML - 100,000/ML NRG FTX;REPORTABLE SENSITIVITY REPORTED 09/10/16 10:45 NRG Bacterial susceptibility panel - 09/08/16 09:00 Oxacillin susceptibility test by minimum inhibitory concentration >= NRG Gentamicin susceptibility test by minimum inhibitory concentration <= NRG Trimethoprim/sulfamethoxazole susceptibility test by minimum inhibitoryconcentration <= NRG Vancomycin susceptibility test by minimum inhibitory concentration 1 NRG Levofloxacin susceptibility test by minimum inhibitory concentration >= NRG Rifampin susceptibility test by minimum inhibitory concentration <= NRG Tetracycline susceptibility test by minimum inhibitory concentration <= NRG Ciprofloxacin susceptibility test by minimum inhibitory concentration R NRG Complete blood count (CBC) with automated white blood cell (WBC) differential - 09/26/16 14:10 Blood leukocytes automated count (number/volume) 10.3 10*3/ uL 4.3-11.0 Blood erythrocytes automated count (number/volume) 4.46 10*6 /uL 4.35-5.85 Venous blood hemoglobin measurement (mass/volume) 14.0 g/dL 11.5-16.0 Blood hematocrit (volume fraction) 42 % 35-52 Automated erythrocyte mean corpuscular volume 93 [foz_us] 80-99 Automated erythrocyte mean corpuscular hemoglobin (mass per erythrocyte) 31 pg 25-34 Automated erythrocyte mean corpuscular hemoglobin concentration measurement ( mass/volume) 34 g/dL 32-36 Automated erythrocyte distribution width ratio 13.0 % 10.0-14.5 Automated blood platelet count (count/volume) 246 10*3/uL 130-400 Automated blood platelet mean volume measurement 8.5 [foz_us ] 7.4-10.4 Automated blood neutrophils/100 leukocytes 75 % 42-75 Automated blood lymphocytes/100 leukocytes 18 % 12-44 Blood monocytes/100 leukocytes 8 % 0-12 Automated blood eosinophils/100 leukocytes 0 % 0-10 Automated blood basophils/100 leukocytes 0 % 0-10 Blood neutrophils automated count (number/volume) 7.7 10*3 1.8-7.8 Blood lymphocytes automated count (number/volume) 1.8 10*3 1.0-4.0 Blood monocytes automated count (number/volume) 0.8 10*3 0.0-1.0 Automated eosinophil count 0.0 10*3/uL 0.0-0.3 Automated blood basophil count (count/volume) 0.0 10*3/uL 0.0-0.1 Lipase - 09/26/16 14:10 Lipase 172 U/L 8-78 Complete urinalysis with reflex to culture - 09/26/16 14:12 Urine color determination YELLOW NRG Urine clarity determination SLIGHTLY CLOUDY NRG Urine pH measurement by test strip 6 5- 9 Specific gravity of urine by test strip 1.025 1.016-1.022 Urine protein assay by test strip, semi-quantitative 1+ NEGATIVE Urine glucose detection by automated test strip NEGATIVE NEGATIVE Erythrocytes detection in urine sediment by light microscopy NEGATIVE NEGATIVE Urine ketones detection by automated test strip NEGATIVE NEGATIVE Urine nitrite detection by test strip NEGATIVE NEGATIVE Urine total bilirubin detection by test strip NEGATIVE NEGATIVE Urine urobilinogen measurement by automated test strip (mass/volume) NORMAL NORMAL Urine leukocyte esterase detection by dipstick 1+ NEGATIVE Automated urine sediment erythrocyte count by microscopy (number/high power field) NONE NRG Automated urine sediment leukocyte count by microscopy (number/high power field ) [HPF] NRG Bacteria detection in urine sediment by light microscopy TRACE NRG Squamous epithelial cells detection in urine sediment by light microscopy 0-2 NRG Crystals detection in urine sediment by light microscopy NONE NRG Casts detection in urine sediment by light microscopy NONE NRG Mucus detection in urine sediment by light microscopy NEGATIVE NRG Complete urinalysis with reflex to culture NO NRG Encounters ACCT No. Visit Date/Time Discharge Status Pt. Type Provider Facility Loc./Unit Complaint [id number] 04/25/2012 21:48:00 2011 15:24:00 DIS Inpatient Nicko Redd DO [facility] on [address]
== END 2016-09-26 16:30 | disposition home or self-care (01) ==
LOC: EDUNIT# 13:42 → ER 13:43
DX: R10.9 Unspecified abdominal pain (principal); K59.00 Constipation, unspecified; G80.9 Cerebral palsy, unspecified; G40.909 Epilepsy, unspecified, not intractable, without status epilepticus; F79 Unspecified intellectual disabilities; Z93.6 Other artificial openings of urinary tract status; Z93.1 Gastrostomy status
CPT/HCPCS: 36415; 51701; 74176; 81000; 83690; 85025; 96374

== ENCOUNTER → 2016-10-22 | Outpatient (CLI) | payer MEDICAID ==
[~2016-10-22] VITALS: Ht 142.2 cm; Wt 40.8 kg
[~2016-10-22] MED LIST changes: +LACT10SO46 GT; +OXCA300O5 GT; +RANI150T15 PO; +TRIAMCINOLONE ACET (KENALOG-40) 40 MG/ML 1 ML VIAL IM ONE
[2016-10-22 11:30] VITALS: BP 130/89
== END ==
LOC: SDC 11:05
PROVIDERS: ATTEND Family Medicine
DX: J30.9 Allergic rhinitis, unspecified (principal)
CPT/HCPCS: 96372

== ENCOUNTER 2016-11-11 05:39 | Outpatient (CLI) | payer MEDICAID ==
[~2016-11-11] VITALS: Ht 142.2 cm; Wt 39.5 kg
[~2016-11-11 05:39] MED LIST changes: -LACT10SO46 GT; -OXCA300O5 GT; -RANI150T15 PO; -TRIAMCINOLONE ACET (KENALOG-40) 40 MG/ML 1 ML VIAL IM ONE
[2016-11-11] MEDS ORDERED: OXCA300O5 GT ×2 (14:16→14:17)
[2016-11-11] MEDS ORDERED: RANI150T15 PO (14:17)
[2016-11-11] MEDS ORDERED: LACT10SO46 GT (14:17)
== END 2016-11-11 14:19 ==
LOC: PREOP 05:39
PROVIDERS: ATTEND Surgery Pediatric Surgery
DX: Z01.818 Encounter for other preprocedural examination (principal); K94.23 Gastrostomy malfunction

== ENCOUNTER 2016-11-13 11:30 | Day surgery (SDC) | payer MEDICAID ==
[~2016-11-13] VITALS: Ht 142.2 cm; Wt 39.5 kg
[~2016-11-13 11:30] MED LIST changes: +LACT10SO46 GT; +OXCA300O5 GT; +RANI150T15 PO
[2016-11-13] MEDS ORDERED: NALOXONE 0.4 MG/ML 1 ML (NARCAN) VIAL IVP PRN (11:45)
[2016-11-13] MEDS ORDERED: LIDOCAINE JELLY 2% (XYLOCAINE) 5 ML TUBE MM PRN (11:45)
[2016-11-13] MEDS ORDERED: FLUMAZENIL (ROMAZICON) 0.1 MG/ML 5 ML VIAL INJ PRN (11:45)
[2016-11-13] MEDS ORDERED: fentaNYL INJECTION 100 MCG/2 ML AMP IVP PRN (11:45)
[2016-11-13] MEDS ORDERED: HURRICAINE EXT TUBE (BENZOCAINE) XX PRN (11:45)
[2016-11-13 11:56] VITALS: BP 130/86
[2016-11-13] MEDS ORDERED: NS IV 500 ML 500 ML IV PRN (12:00)
[2016-11-13] MEDS ORDERED: NS IV 500 ML 500 ML ONE (13:09)
[2016-11-13] MEDS ORDERED: MIDAZOLAM 2 MG/2 ML (VERSED) VIAL ONE ×2 (13:21)
[2016-11-13 13:25] VITALS: BP 130/86
[2016-11-13] MEDS: MIDAZOLAM 2 MG/2 ML (VERSED) VIAL IVP PRN ×2 (13:28→13:30)
--- NOTE | 2016-11-13 13:57 | Conscious Sedation/ASA ---
Conscious Sedation Pre-Proced Time Reviewed: 12:30 ASA Class: 3 Airway Mallampati Classification: (zuni appropriate class) I. II. III, IV Lungs Heart ASA score ASA 1: a normal healthy patient ASA 2: a patient with a mild systemic disease (mid diabetes, controlled hypertension, obesity ASA 3: a patient with a severe systemic disease that limits activity (angina , COPD, prior Myocardial infarction) ASA 4: a patient with an incapacitating disease that is a constant threat to life (CHF, renal failure) ASA 5: a moribund patient not expected to survive 24 hrs. (ruptured aneurysm) ASA 6: a declared brain patient whose organs are being harvested. For emergent operations, add the letter E after the classification Grade 3 Sedation Plan: Analgesia, Amnesia, Plan communicated to team members, Discussed options with patient/fam, Discussed risks with patient/fam Note The patient is an appropriate candidate to undergo the planned procedure, sedation, and anesthesia. The patient immediately re-assessed prior to indication. LEE ALVAREZ MD November 13, 2016 1:57 pm
--- NOTE | 2016-11-13 13:59 | Progress Note-Post Operative ---
Post-Operative Progess Note Surgeon (s)/Geriatric Nurse Assistant (s) Surgeon LEE ALVAREZ MD Geriatric Nurse Assistant: none Pre-Operative Diagnosis dysphagia, developmental delay Post-Operative Diagnosis same Procedure & Operative Findings Date of Procedure 11/13/16 Procedure Preformed/Findings gastrostomy tube replacement under conscious sedation(14 Fr, 2.0cm length VANESSA- WATERS). Anesthesia Type CS Estimated Blood Loss Estimated blood loss (mL): minimal Specimens/Packing Specimens Removed none Packing: none LEE ALVAREZ MD November 13, 2016 1:59 pm
[2016-11-13 14:05] VITALS: BP 145/89
[2016-11-13 14:25] VITALS: BP 148/88
--- NOTE | 2016-11-14 14:25 | OPERATIVE REPORT ---
DATE OF SERVICE: 11/13/2016 ATTENDING PRIMARY CARE PHYSICIAN: Dr. Ambrocio PREPROCEDURE DIAGNOSES: Dysphagia and developmental delay. POSTPROCEDURE DIAGNOSES: Dysphagia and developmental delay. PROCEDURE: Replacement of VANESSA-WATERS low profile gastrostomy feeding tube under conscious sedation. SURGEON: Lee Alvarez MD ANESTHESIA: Conscious sedation. ESTIMATED BLOOD LOSS: Minimal. DISPOSITION: The patient tolerated the procedure well. INDICATIONS: The patient is a 26-year-old female known to us. She has had a longstanding history of dysphagia secondary to a progressive developmental delay. She has had gastrostomy tubes placed before in the past, which were switched over to a low profile gastrostomy tube. The last one was done approximately 1 year ago and has stopped functioning. We will proceed with replacement of the low profile gastrostomy tube. The current gastrostomy tube is a 20-Mauritan[place] 2 cm length 5 mm capacity balloon. DESCRIPTION OF PROCEDURE: The patient was brought to the endoscopy suite, left supine on her cart. Under conscious sedation anesthesia, we then proceeded with approximately 3 mg of Versed in a stepwise fashion with stable vital signs. Once calm, the current gastrostomy tube was removed intact. This was then replaced with the same gastrostomy tube, and the balloon insufflated to 5 mm. Good hemostasis was observed. The patient tolerated the procedure well. The tube may be accessed and used at any time. Job ID: [id number] DocumentID: [id number] Dictated Date: 11/13/2016 13:42:58 Caramel Candy Maker Helper Date: 11/14/2016 14:25:03 Dictated By: LEE ALVAREZ MD MTDD
== END 2016-11-13 14:25 | disposition home or self-care (01) ==
LOC: ENDO 11:30
PROVIDERS: ATTEND Surgery Pediatric Surgery
DX: K94.23 Gastrostomy malfunction (principal); R13.10 Dysphagia, unspecified; R62.50 Unspecified lack of expected normal physiological development in childhood; R56.9 Unspecified convulsions; Z79.899 Other long term (current) drug therapy

== ENCOUNTER → 2016-12-17 | Outpatient (CLI) | payer MEDICAID ==
--- NOTE | 2016-12-17 14:01 | Diagnostic Imaging Report ---
INDICATION: Constipation and previous ingested foreign object. Supine views of the abdomen reveal gastrostomy tube in left upper quadrant. Surgical clips are seen in the gallbladder fossa. There is moderate amount of stool throughout the colon. There is no transition point to indicate an obstruction. Sigmoid colon may be displaced superiorly. This may be on the basis of urinary bladder distention. There is no evidence of free air or intraperitoneal gas. IMPRESSION: Moderate stool content throughout colon likely reflects constipation. There is no unexpected radiopaque foreign body identified. Dictated by: Dictated on workstation # [id number]
== END ==
LOC: RAD 12:12
PROVIDERS: ATTEND Family Medicine
DX: K59.00 Constipation, unspecified (principal)
CPT/HCPCS: 74000

== ENCOUNTER → 2017-03-01 | Outpatient (CLI) | payer MEDICAID ==
[~2017-03-01] VITALS: Ht 142.2 cm; Wt 39.5 kg
[~2017-03-01] MED LIST changes: +CATHETER FLUSH 10 ML SYR IV PRN; +DIATRIZOATE MEGLUM/SODIUM 37% 120 ML (GASTROGRAFIN) PO ONE; +IOHEXOL 350 MG/ML 100 ML (OMNIPAQUE 350) VIAL IV ONE; +LIDOCAINE 1% 10 MG/ML 0.2 ML SYR (FOR IV START) ONE; +NS 100 ML (IVPB) BAG IV ONE
[2017-03-01 12:37] LABS: ALANINE AMINOTRANSFERASE 19 U/L (0-55); ALBUMIN 3.8 GM/DL (3.2-4.5); AMYLASE 77 U/L (25-125); ANION GAP 9 MMOL/L (5-14); ASPARTATE AMINO TRANSFERASE 21 U/L (5-34); BILIRUBIN,TOTAL 0.2 MG/DL (0.1-1.0); BLOOD UREA NITROGEN 11 MG/DL (7-18); BUN/CREATININE RATIO 19; CARBON DIOXIDE 26 MMOL/L (21-32); CHLORIDE 107 MMOL/L (98-107); CREATININE SERUM 0.58 MG/DL (0.60-1.30); GFR ESTIMATED > 60; GLUCOSE 104 MG/DL (70-105); LIPASE 48 U/L (8-78); POTASSIUM 3.9 MMOL/L (3.6-5.0); SODIUM 142 MMOL/L (135-145); TOTAL PROTEIN 6.3 GM/DL (6.4-8.2)
[2017-03-01 12:40] LABS: MEAN PLATELET VOLUME 9.1 FL (7.4-10.4); RED BLOOD COUNT 4.39 10^6/uL (4.35-5.85); WHITE BLOOD COUNT 4.1 10^3/uL (4.3-11.0)
[2017-03-01 12:58] LABS: BILIRUBIN,URINE NEGATIVE (NEGATIVE); KETONES,URINE NEGATIVE (NEGATIVE); LEUKOCYTE ESTERASE ,URINE 1+ (NEGATIVE); NITRITE,URINE NEGATIVE (NEGATIVE); PH,URINE 8 (5-9); PROTEIN,URINE NEGATIVE (NEGATIVE); UROBILINOGEN,URINE NORMAL (NORMAL)
[2017-03-01 13:00] VITALS: BP 110/82
[2017-03-01 13:08] LABS: SQUAMOUS EPITHELIAL CELL,UR RARE /HPF
--- NOTE | 2017-03-01 14:28 | Diagnostic Imaging Report ---
PROCEDURE: CT abdomen and pelvis with and without contrast. TECHNIQUE: Precontrast acquisitions were acquired through the abdomen and pelvis. Multiple contiguous axial images were obtained through the abdomen and pelvis after the administration of intravenous contrast. INDICATION: Abdominal pain with vomiting. COMPARISON: 09/26/2016. FINDINGS: Lower chest: The lung bases are clear. No pericardial or pleural effusion. Peritoneum: No free intraperitoneal air or fluid. Liver and biliary system: The liver is normal. Status post cholecystectomy. No biliary duct dilatation. Spleen and Pancreas: Spleen is normal. The pancreas enhances normally without mass lesion or peripancreatic inflammatory changes. Adrenals: Normal. tract: The kidneys enhance normally without suspicious mass or obstruction. Stable large cyst in the right kidney measuring up to 7 cm. Precontrast imaging demonstrates no renal or ureteral calculi. Urinary bladder is distended without wall thickening. Uterus and ovaries are normal in appearance for patient's age. GI tract: Unchanged circumferential wall thickening of the distal esophagus. Percutaneous gastrostomy tube is in place with tip in the lumen of the stomach. No gastric wall thickening. No bowel obstruction. No pericolonic inflammatory changes. Normal appendix. Vasculature and Lymph nodes: Normal caliber aorta. No abdominal or pelvic lymphadenopathy. Musculoskeletal: No concerning osseous lesion. IMPRESSION: 1. No bowel destruction. Circumferential wall thickening of the distal esophagus is unchanged since 09/26/2016 examination and may relate to chronic inflammation or neoplastic process. Correlation with patient's history is advised. 2. Percutaneous gastrostomy tube has tip appropriately positioned in the gastric lumen. 3. No urinary tract calculi or obstructive uropathy. Dictated by: Dictated on workstation # [id number]
== END ==
LOC: RAD 11:49
PROVIDERS: ATTEND Nurse Practitioner Family
DX: K22.9 Disease of esophagus, unspecified (principal); Z93.1 Gastrostomy status
CPT/HCPCS: 36415; 74178; 80053; 81000; 82150; 83690; 85027; 85652

== ENCOUNTER → 2017-03-12 | Outpatient (CLI) | payer MEDICAID ==
[~2017-03-12] MED LIST changes: -CATHETER FLUSH 10 ML SYR IV PRN; -DIATRIZOATE MEGLUM/SODIUM 37% 120 ML (GASTROGRAFIN) PO ONE; -IOHEXOL 350 MG/ML 100 ML (OMNIPAQUE 350) VIAL IV ONE; -LIDOCAINE 1% 10 MG/ML 0.2 ML SYR (FOR IV START) ONE; -NS 100 ML (IVPB) BAG IV ONE
--- NOTE | 2017-03-12 10:00 | Diagnostic Imaging Report ---
PROCEDURE: CT head without contrast. TECHNIQUE: Multiple contiguous axial images were obtained through the brain without the use of intravenous contrast. INDICATION: Dizziness. There are no prior studies available for comparison. There is no mass, shift of the midline, or hemorrhage to suggest an acute intracranial abnormality. However, the lateral ventricles and the third ventricle do seem dilated. The fourth ventricle is normal in size. This finding is of uncertain etiology but could be secondary to aqueductal stenosis either acquired or congenital. If previous CT head examinations are available they would be helpful for comparison. If there are no prior exams, then MRI would be recommended for additional study. There is also mild cortical atrophy. The degree of atrophy is somewhat greater than expected for a patient of this age. The bone window show no evidence for a fracture or for a destructive lesion. The internal auditory canals appear symmetrical. The orbits are unremarkable for an acute abnormality. The sinuses where visualized are clear. IMPRESSION: 1. There is no acute intracranial abnormality noted, and there is no sign of a mass. 2. The third and lateral ventricles are dilated, and this appearance does raise the question of aqueductal stenosis. Recommendations as above. 3. These results will be discussed with Emely at Dr. Arango's office. Dictated by: Dictated on workstation # [id number]
== END ==
LOC: RAD 09:00
PROVIDERS: ATTEND Family Medicine
DX: R93.0 Abnormal findings on diagnostic imaging of skull and head, not elsewhere classified (principal); R42 Dizziness and giddiness
CPT/HCPCS: 70450

== ENCOUNTER → 2017-04-24 | Outpatient (CLI) | payer MEDICAID ==
--- NOTE | 2017-04-24 15:24 | Diagnostic Imaging Report ---
PROCEDURE: MR imaging of the brain without contrast. TECHNIQUE: Multiplanar, multisequence MR imaging of the brain was performed without contrast. INDICATION: Dizziness. COMPARISON: There are no previous MRI examinations available for comparison. The CT head exam performed on 03/12/17 failed to show any sign of an acute intracranial abnormality. The CT head exam did note that there was dilatation of the lateral ventricles, particularly the right lateral ventricle, as well as the third ventricle. These findings did suggest aqueductal stenosis. On this exam, the lateral ventricles are again dilated, particularly the right lateral ventricle. The third ventricle is also slightly dilated. The fourth ventricle is normal in size. These findings may well be secondary to aqueductal stenosis, either congenital or acquired. There is no sign of a mass involving the aqueduct. No other mass is identified. There is no sign of hemorrhage. There is no abnormal signal arising from the brain on the diffusion series to indicate an area of acute ischemia. There are a few small areas of increased signal in the periventricular white matter, bilaterally, on the FLAIR series. These are nonspecific in appearance. The sella is not enlarged and the expected carotid flow voids are evident, bilaterally. The orbits are symmetrical and within normal limits. The sinuses are generally clear. The seventh and eighth nerve complexes are unremarkable. The cerebellar tonsils are low-lying but there is no evidence for a Chiari malformation. IMPRESSION: 1. There is no acute intracranial abnormality. 2. As noted on the prior exam, the lateral ventricles are dilated, particularly the right lateral ventricle. 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 3. These results will be discussed with Dr. Arango. Dictated on workstation # [id number]
== END ==
LOC: RAD 13:51
PROVIDERS: ATTEND Family Medicine
DX: R42 Dizziness and giddiness (principal); R11.10 Vomiting, unspecified
CPT/HCPCS: 70551

== ENCOUNTER → 2017-08-03 | Outpatient (CLI) | payer MEDICAID ==
[~2017-08-03] VITALS: Ht 142.2 cm; Wt 39.5 kg
[2017-08-03 10:44] VITALS: BP 125/100
[2017-08-03 10:50] LABS: BILIRUBIN,URINE NEGATIVE (NEGATIVE); CLARITY,URINE CLEAR; COLOR,URINE YELLOW; GLUCOSE, URINE (UA) NEGATIVE (NEGATIVE); KETONES,URINE NEGATIVE (NEGATIVE); LEUKOCYTE ESTERASE ,URINE 1+ (NEGATIVE); NITRITE,URINE POSITIVE (NEGATIVE); PH,URINE 7 (5-9); PROTEIN,URINE 1+ (NEGATIVE); UROBILINOGEN,URINE 1 MG/DL (NORMAL)
[2017-08-03 10:54] LABS: BACTERIA,URINE TRACE /HPF; WBC,URINE 0-2 /HPF
--- NOTE | 2017-08-04 13:33 | Physician Query-Final Dx ---
BERONICA DO 08/04/17 1333: Clinic Account Progress/Dx Physician Query: Please specify the location of the patients abd pain thank you Date of Service Aug 03, 2017 at 10:09 VIJAY GALVEZ DO 08/06/17 1322: Clinic Account Progress/Dx DIAGNOSIS: Diagnosis Generalized Abdominal Pain BERONICA DO Aug 04, 2017 13:33 VIJAY GALVEZ DO Aug 06, 2017 13:22
== END ==
LOC: SDC 10:09
PROVIDERS: ATTEND Family Medicine
DX: R50.9 Fever, unspecified (principal); R10.84 Generalized abdominal pain
CPT/HCPCS: 81000; 87088; 99212

== ENCOUNTER 2017-09-14 16:32 | Emergency (ER) | payer MEDICAID ==
[~2017-09-14] VITALS: Ht 152.4 cm; Wt 43.1 kg
--- NOTE | 2017-09-14 16:46 | ED Lower Extremity ---
General Stated Complaint: LEFT FOOT INJ;MULTIPLE SEIZURES Source: family Exam Limitations: no limitations History of Present Illness Date Seen by Provider: Sep 14, 2017 Time Seen by Provider: 16:43 Initial Comments This is intellectually developmentally disabled 27-year-old presents to ER accompanied by mother with reports of a left foot injury. Patient has seizures a couple times a week, today during one of her seizures she was sitting in a chair and struck the left foot against a stationary object and then began to shiver. Typically shivering indicates pain in her. Mother gave one of the patient's own prescribed Lortab from a prior ankle injury and brought her to the emergency room. She also had to be given 10 mg of Valium rectally at home to abort the seizure. Onset: just prior to arrival Severity: moderate Pain/Injury Location: left foot Method of Injury: direct blow Modifying Factors: Worse With Movement Allergies and Home Medications Allergies Coded Allergies: No Known Drug Allergies (Verified , 04/03/15) Home Medications Acetaminophen 160 Mg/5 Ml Btl, 320 MG GT Q6HR PRN, (Reported) Cetirizine Hcl 10 Mg Tablet, 10 MG PO DAILY, (Reported) Diazepam 2.5 Mg/Kit Kit, 2.5-10 MG GT PRN, (Reported) Diazepam 2.5 Mg/Kit Kit, 2.5 MG PO DAILY@1700, (Reported) Lactobacillus Acidophilus 1 Each Capsule, 1 EACH PO DAILY, (Reported) Lactulose 10 Gm/15 Ml Solution, 8-10 ML GT BID, (Reported) Multivitamin 1 Each Tablet, 1 EACH PO DAILY, (Reported) Ondansetron HCl 4 Mg/5 Ml Solution, 4 MG GT Q6H Prescribed by: NUNO FLORES on 02/17/15 1940 Oxcarbazepine 300 Mg/5 Ml Oral.susp, 13.5 ML GT DAILY, (Reported) Oxcarbazepine 300 Mg/5 Ml Oral.susp, 15 ML GT HS, (Reported) Ranitidine HCl 150 Mg Tablet, 150 MG PO DAILY, (Reported) Sertraline Hcl 50 Mg Tablet, 50 MG PO HS, (Reported) Patient Home Medication List Home Medication List Reviewed: Yes Constitutional: see HPI EENTM: see HPI Respiratory: no symptoms reported Cardiovascular: no symptoms reported Genitourinary: no symptoms reported Musculoskeletal: see HPI Skin: no symptoms reported Psychiatric/Neurological: No Symptoms Reported Past Xlcbffp-Lhyjte-Hskczv Hx Patient Social History 2nd Hand Smoke Exposure: No Recent Foreign Travel: No Contact w/Someone Who Travel: No Recent Hopitalizations: No Immunizations Up To Date Tetanus Booster (TDap): Less than 5yrs Date of Pneumonia Vaccine: Dec 27, 2013 Date of Influenza Vaccine: Apr 04, 2014 Seasonal Allergies Seasonal Allergies: Yes Surgeries Surgeries: Ear Surgery, Eye Surgery, Gallbladder, Orthopedic Respiratory Respiratory Disorders: Pneumonia Neurological Neurological Disorders: Developmental Disorder, Seizure Disorder Reproductive System Hx Reproductive Disorders: No (RECIEVES SHOTS EVERY 3 MONTHS) Genitourinary Genitourinary Disorders: Kidney Stones, UTI-Chronic Gastrointestinal Gastrointestinal Disorders: Pancreatitis, Ulcer HEENT HEENT Disorders: Chronic Ear Infection Family Medical History Family Medial History: Cancer Dementia Family history: Allergy Family history: Arthritis Family history: Asthma Family history: Breast disease Family history: Cardiovascular disease Family history: Diabetes mellitus Family history: Gastrointestinal disease Family history: Hypertension Family history: Osteoporosis Hearing loss Heart disease Stroke No Family History of: Abdominal aortic aneurysm [place]'s disease Alcoholism Aphasia Cancer of colon Cataract Chest pain Congenital heart disease Congestive heart failure Cystic fibrosis Dysphagia Family history: Alzheimer's disease Family history: Coronary thrombosis Family history: Glaucoma Family history: Thyroid disorder Headache Hereditary disease History of - anemia History of - disorder History of - respiratory disease History of drug abuse Human immunodeficiency virus (HIV) seropositivity Hypercholesterolemia Infertile Kidney disease Malignant neoplasm of lung Myocardial infarction Parkinson's disease Prostate cancer Psychotic disorder Seizure disorder Tuberculosis Visual impairment Physical Exam Vital Signs Vital Signs - First Documented 09/14/17 16:40 Temp 97.5 Pulse 106 Resp 18 B/P (MAP) 155/84 (107) Pulse Ox 99 O2 Delivery Room Air Capillary Refill : General Appearance: WD/WN, no apparent distress HEENT: PERRL/EOMI, normal ENT inspection Neck: non-tender, full range of motion Cardiovascular: regular rate, rhythm, no murmur Respiratory: normal breath sounds, no respiratory distress, no accessory muscle use Gastrointestinal: normal bowel sounds, non tender Hips: bilateral hip non-tender, bilateral hip normal inspection, bilateral hip normal range of motion Legs: bilateral leg non-tender, bilateral leg normal inspection, bilateral leg normal range of motion, bilateral leg other (the left tibia/fibula is normal in appearance without ecchymosis, abrasion, deformity, erythema or tenderness to palpation.) Knees: bilateral knee non-tender, bilateral knee normal inspection, bilateral knee normal range of motion Ankles: bilateral ankle non-tender, bilateral ankle normal inspection, bilateral ankle normal range of motion Feet: bilateral foot non-tender, right foot normal inspection, bilateral foot normal range of motion, bilateral foot other (there may be a hint of ecchymosis to the medial aspect of the left great toe but there is no deformity to any portion of the foot or ankle, no abrasion, ecchymosis, erythema or swelling to any portion of the foot or ankle other than the aforementioned medial aspect of left great toe) Neurologic/Psychiatric: alert, normal mood/affect, oriented x 3 Skin: normal color, warm/dry Progress/Results/Core Measures Results/Orders My Orders Orders - CARLYN DESIR APRN Foot, Left, 3 Views (09/14/17 16:41) Tibia/Fibula, Left, 2 Views (09/14/17 16:41) Vital Signs/I&O Vital Sign - Last 12Hours 09/14/17 16:40 Temp 97.5 Pulse 106 Resp 18 B/P (MAP) 155/84 (107) Pulse Ox 99 O2 Delivery Room Air Departure Impression Impression: Primary Impression: Contusion of foot Qualified Codes: S90.32XA - Contusion of left foot, initial encounter Disposition: 01 HOME, SELF-CARE Condition: Stable Departure-Patient Inst. Decision time for Depature: 17:10 Referrals: VIJAY GALVEZ DO (PCP/Family) Primary Care Physician Patient Instructions: Contusion (DC) Add. Discharge Instructions: 1. Return to ER for any concerns 2. Follow-up with your doctor next week 3. Copy Copies To 1: VIJAY GALVEZ PETER J APRN Sep 14, 2017 16:46
--- NOTE | 2017-09-14 17:35 | Diagnostic Imaging Report ---
INDICATION: Left lower leg pain. FINDINGS: AP and lateral views of the left tibia and fibula show no fracture or dislocation. IMPRESSION: Negative left tibia and fibula. Dictated by: Dictated on workstation # [id number]
--- NOTE | 2017-09-14 17:35 | Diagnostic Imaging Report ---
INDICATION: Left foot injury FINDINGS: Three views of the left foot show postop changes from arthrodesis of the hindfoot with screws and paola. There is no acute fracture or dislocation. Hardware appears to be intact. IMPRESSION: Postsurgical changes from fusion of the hindfoot. No acute abnormality is seen. Dictated by: Dictated on workstation # [id number]
[2017-09-14 17:55] VITALS: BP 155/84
== END 2017-09-14 17:50 | disposition home or self-care (01) ==
LOC: EDUNIT# 16:32 → ER 16:34
DX: S90.32XA Contusion of left foot, initial encounter (principal); G40.909 Epilepsy, unspecified, not intractable, without status epilepticus; Z87.442 Personal history of urinary calculi; Z87.19 Personal history of other diseases of the digestive system; Z98.890 Other specified postprocedural states; W22.09XA Striking against other stationary object, initial encounter
CPT/HCPCS: 73590; 73630

== ENCOUNTER → 2017-09-22 | Outpatient (CLI) | payer MEDICAID ==
--- NOTE | 2017-09-22 15:01 | RADIOLOGY REPORT ---
NAME: AMBROCIO PASCUAL [facility] REC#: [id number] PT STATUS: REG CLI : 1990 PHYSICIAN: CECILIO D ASILVA MD ADMIT DATE: 09/22/17/RAD Signed Date of Exam:09/22/17 CT ABDOMEN/PELVIS WO PROCEDURE: CT abdomen and pelvis without contrast. TECHNIQUE: Multiple contiguous axial images were obtained through the abdomen and pelvis without the use of intravenous contrast. INDICATION: Followup renal stone. COMPARISON: 03/01/2017. FINDINGS: The lung bases are clear. The liver appears unremarkable. There is a gastrostomy tube in the stomach. The gallbladder appears absent. The pancreas, spleen, and adrenal glands appear unremarkable. There is a 2 mm nonobstructive stone in the inferior pole of the left kidney. There is a 6.9 cm cortical cyst off the right kidney, similar to the prior study. No obstructive change is seen. There is a large amount of stool throughout the colon. No evidence of bowel obstruction or focal inflammatory process. The appendix appears normal. There is no free fluid, free air, or adenopathy. Uterus and adnexa appear unremarkable. Bladder is mildly distended but otherwise unremarkable. Abdominal aorta appears normal in caliber. The osseous structures appear unremarkable. IMPRESSION: 1. Nonobstructive left nephrolithiasis and large right renal cyst are similar to the prior study. 2. Gastrostomy tube is again seen in the stomach. 3. There is a large amount of stool in the colon. Dictated by: Dictated on workstation # [id number] Dict: 09/22/17 1326 Trans: 09/22/17 1430 [id number] Interpreted by: JAN AGUIRRE DO Electronically signed by: JAN AGUIRRE DO 09/22/17 1430 [email or web address]
== END ==
LOC: RAD 12:06
PROVIDERS: ATTEND Urology
DX: N20.0 Calculus of kidney (principal); N28.1 Cyst of kidney, acquired; Z93.1 Gastrostomy status
CPT/HCPCS: 74176

== ENCOUNTER → 2017-10-12 | Outpatient (CLI) | payer MEDICAID ==
[~2017-10-12] VITALS: Ht 142.2 cm; Wt 43.1 kg
[~2017-10-12] MED LIST changes: +DEXAMETHASONE 4 MG/ML SDV (DECADRON) IM ONE; +DEXAMETHASONE 4 MG/ML SDV (DECADRON) ONE; -RANI150T15 PO; +RANI150T46 PO
[2017-10-12 10:58] VITALS: BP 132/88
== END ==
LOC: SDC 10:23
PROVIDERS: ATTEND Nurse Practitioner Family
DX: J30.89 Other allergic rhinitis (principal)
CPT/HCPCS: 96372

== ENCOUNTER 2018-01-04 10:49 | Outpatient (CLI) | payer MEDICAID ==
[~2018-01-04] VITALS: Ht 142.2 cm; Wt 43.1 kg
[~2018-01-04 10:49] MED LIST changes: -DEXAMETHASONE 4 MG/ML SDV (DECADRON) IM ONE; -DEXAMETHASONE 4 MG/ML SDV (DECADRON) ONE
[2018-01-04 10:55] VITALS: BP 135/77
[2018-01-04 11:34] LABS: BACTERIA,URINE NEGATIVE /HPF; BILIRUBIN,URINE NEGATIVE (NEGATIVE); CLARITY,URINE CLEAR; COLOR,URINE YELLOW; GLUCOSE, URINE (UA) NEGATIVE (NEGATIVE); KETONES,URINE NEGATIVE (NEGATIVE); LEUKOCYTE ESTERASE ,URINE 1+ (NEGATIVE); NITRITE,URINE NEGATIVE (NEGATIVE); PH,URINE 8 (5-9); PROTEIN,URINE 1+ (NEGATIVE); UROBILINOGEN,URINE NORMAL (NORMAL); WBC,URINE 0-2 /HPF
[2018-01-04 11:35] LABS: AMORPHOUS SEDIMENT,UR MOD AMOR PHOSPHATE /LPF
== END 2018-01-04 11:25 | disposition home or self-care (01) ==
LOC: SDC 10:49
PROVIDERS: ATTEND Nurse Practitioner Family
DX: R34 Anuria and oliguria (principal); R53.83 Other fatigue; R11.10 Vomiting, unspecified
CPT/HCPCS: 81000

== ENCOUNTER 2018-07-13 05:40 | Outpatient (CLI) | payer MEDICAID ==
[~2018-07-13] VITALS: Ht 142.2 cm; Wt 41.7 kg
[2018-07-15] MEDS ORDERED: CEPH500C PO (19:48)
[2018-07-18] MEDS ORDERED: DIAZ5TAB3 PO (12:57)
[2018-07-18] MEDS ORDERED: MONT10TA24 PO (12:57)
[2018-07-18] MEDS ORDERED: LACT10SO46 PO (12:57)
[2018-07-18] MEDS ORDERED: MECL12.579 PO (12:57)
[2018-07-18] MEDS ORDERED: PANT40TA3 PO (12:57)
[2018-07-18] MEDS ORDERED: SERT50TA9 PO (12:57)
[2018-07-18] MEDS ORDERED: LACT1CAP87 PO (12:57)
[2018-07-18] MEDS ORDERED: CETI10TA23 PO (12:57)
== END 2018-07-18 13:01 | disposition home or self-care (01) ==
LOC: PREOP 05:40
PROVIDERS: ATTEND Surgery
DX: Z01.818 Encounter for other preprocedural examination (principal)

== ENCOUNTER 2018-07-15 17:38 | Emergency (ER) | payer MEDICAID ==
[~2018-07-15] VITALS: Ht 142.2 cm; Wt 41.3 kg
[2018-07-15] MEDS ORDERED: NS IV 1000 ML 1,000 ML IV SCH (17:55)
[2018-07-15] MEDS ORDERED: ONDANSETRON 4 MG/2 ML (SDV) Z0FRAN IVP ONE ×2 (18:00→18:15)
[2018-07-15] MEDS ORDERED: LACTATED RINGERS 1,000 ML IV ONE (18:03)
--- NOTE | 2018-07-15 18:10 | ED GU-Female ---
General Chief Complaint: Abdominal/GI Problems Stated Complaint: VOMITING Source: patient Exam Limitations: no limitations History of Present Illness Date Seen by Provider: Jul 15, 2018 Time Seen by Provider: 17:56 Initial Comments Patient presents to ER by private conveyance with her mother and chief complaint that she has been experiencing nausea vomiting all day today. She has a problem with motion sickness and they just drove home from [place] so I thought that might be part of her problems however she is received 3 doses of meclizine 2 trials of Zofran by mouth sublingual and Phenergan per rectum at 2: 00 in the afternoon. Every time she got the Zofran or any of her other medicines she threw them up. She does significantly and a history of Down syndrome and seizure disorder in mom is concerned that she will not be able to keep her antiseizure medicines down. For the past week she's been acting with some malaise but nothing they could point to. She has been having increased number of seizures this last week as well. Mom says she also noticed when she got her home that she sat on the toilet and as she was going to the bathroom she was moaning with a lot of pain and thought she might also have a urinary tract infection. Historically the patient does have a history of kidney stones and had to have lithotripsy before. She's having no hematuria that mom is aware of. Allergies and Home Medications Allergies Coded Allergies: No Known Drug Allergies (Verified , 07/13/18) Home Medications Acetaminophen 160 Mg/5 Ml Btl, 320 MG GT Q6HR PRN, (Reported) Cephalexin 500 Mg Capsule, 500 MG PO BID Prescribed by: DIANA ONEILL on 07/15/181947 Cetirizine Hcl 10 Mg Tablet, 10 MG PO DAILY, (Reported) Diazepam 2.5 Mg/Kit Kit, 2.5-10 MG GT PRN, (Reported) Diazepam 2.5 Mg/Kit Kit, 2.5 MG PO DAILY@1700, (Reported) Lactobacillus Acidophilus 1 Each Capsule, 1 EACH PO DAILY, (Reported) Lactulose 10 Gm/15 Ml Solution, 8-10 ML GT BID, (Reported) Multivitamin 1 Each Tablet, 1 EACH PO DAILY, (Reported) Ondansetron HCl 4 Mg/5 Ml Solution, 4 MG GT Q6H Prescribed by: NUNO FLORES on 02/17/151939 Oxcarbazepine 300 Mg/5 Ml Oral.susp, 13.5 ML GT DAILY, (Reported) Oxcarbazepine 300 Mg/5 Ml Oral.susp, 15 ML GT HS, (Reported) Ranitidine HCl 150 Mg Tablet, 150 MG PO DAILY, (Reported) Sertraline Hcl 50 Mg Tablet, 50 MG PO HS, (Reported) Patient Home Medication List Home Medication List Reviewed: Yes Review of Systems Review of Systems Constitutional: see HPI (review of systems difficult to obtain as the patient is nonverbal.); No chills, No diaphoresis EENTM: No ear pain, No eye pain Respiratory: No cough, No short of breath Cardiovascular: No chest pain, No edema Gastrointestinal: No abdominal pain, No constipation; nausea, vomiting Genitourinary: denies burning, denies discharge; dysuria : No Musculoskeletal: No back pain, No joint pain Skin: No pruritus, No rash Past Ceonnuo-Spifnq-Clvphu Hx Patient Social History Alcohol Use: Denies Use Recreational Drug Use: No Smoking Status: Never a Smoker 2nd Hand Smoke Exposure: No Recent Foreign Travel: No Contact w/Someone Who Travel: No Recent Hopitalizations: No Immunizations Up To Date Tetanus Booster (TDap): Less than 5yrs Date of Pneumonia Vaccine: Dec 27, 2013 Date of Influenza Vaccine: Apr 11, 2018 Seasonal Allergies Seasonal Allergies: Yes Past Medical History Surgeries: Yes (NEPHROSTOMY, G-TUBE, SALIVARY GLAND, MULTIPLE ORTHO SURGERIES, BMT'S,EGD'S ) Ear Surgery, Eye Surgery, Gallbladder, Orthopedic Respiratory: No Pneumonia Cardiac: No Neurological: Yes (SEVERE MR) Developmental Disorder, Seizure Disorder, Vertigo Reproductive Disorders: No (RECIEVES SHOTS EVERY 3 MONTHS) Genitourinary: Yes Kidney Stones, UTI-Chronic Gastrointestinal: Yes (PEG tube) Pancreatitis, Ulcer Musculoskeletal: Yes (LOW MUSCLE TONE, POINTS TOES DOWN, MULTIPLE HIP DISLOCATIONS) Endocrine: No HEENT: Yes Chronic Ear Infection Cancer: No Psychosocial: Yes (MR/DEVELOPMENTAL DELAY) Integumentary: No Blood Disorders: No Adverse Reaction/Blood Tranf: No Family Medical History Cancer Dementia Family history: Allergy Family history: Arthritis Family history: Asthma Family history: Breast disease Family history: Cardiovascular disease Family history: Diabetes mellitus Family history: Gastrointestinal disease Family history: Hypertension Family history: Osteoporosis Hearing loss Heart disease Stroke No Family History of: Abdominal aortic aneurysm [place]'s disease Alcoholism Aphasia Cancer of colon Cataract Chest pain Congenital heart disease Congestive heart failure Cystic fibrosis Dysphagia Family history: Alzheimer's disease Family history: Coronary thrombosis Family history: Glaucoma Family history: Thyroid disorder Headache Hereditary disease History of - anemia History of - disorder History of - respiratory disease History of drug abuse Human immunodeficiency virus (HIV) seropositivity Hypercholesterolemia Infertile Kidney disease Malignant neoplasm of lung Myocardial infarction Parkinson's disease Prostate cancer Psychotic disorder Seizure disorder Tuberculosis Visual impairment Physical Exam Vital Signs Vital Signs - First Documented 07/15/18 17:40 Temp 97.3 Pulse 84 Resp 18 B/P (MAP) 130/78 (95) Pulse Ox 100 O2 Delivery Room Air Capillary Refill : Height, Weight, BMI Height: 4'8.00" Weight: 92lbs. 0.0oz. [id number]; 20.6 BMI Method:Estimated General Appearance: WD/WN, no apparent distress HEENT: PERRL/EOMI, pharynx normal (mucosa is moist) Cardiovascular: normal peripheral pulses, regular rate, rhythm, no edema Respiratory: lungs clear, normal breath sounds, no respiratory distress, no accessory muscle use Gastrointestinal: normal bowel sounds, non tender, soft Back: no CVA tenderness, no vertebral tenderness Extremities: normal inspection, no pedal edema, normal capillary refill Neurologic/Psychiatric: alert, normal mood/affect Skin: normal color, warm/dry Progress/Results/Core Measures Suspected Sepsis SIRS Temperature: Pulse: Respiratory Rate: Laboratory Tests 07/15/18 18:16: White Blood Count 9.6 Blood Pressure / Mean: Laboratory Tests 07/15/18 18:16: Creatinine 0.63, Platelet Count 270, Total Bilirubin 0.2 Results/Orders Lab Results Laboratory Tests Test 07/15/18 18:16 Range/Units White Blood Count 9.6 4.3-11.0 10^3/uL Red Blood Count 4.47 4.35-5.85 10^6/uL Hemoglobin 13.2 11.5-16.0 G/DL Hematocrit 40 35-52 % Mean Corpuscular Volume 89 80-99 FL Mean Corpuscular Hemoglobin 30 25-34 PG Mean Corpuscular Hemoglobin Concent 33 32-36 G/DL Red Cell Distribution Width 14.1 10.0-14.5 % Platelet Count 270 130-400 10^3/uL Mean Platelet Volume 9.6 7.4-10.4 FL Neutrophils (%) (Auto) 87 H 42-75 % Lymphocytes (%) (Auto) 6 L 12-44 % Monocytes (%) (Auto) 7 0-12 % Eosinophils (%) (Auto) 0 0-10 % Basophils (%) (Auto) 0 0-10 % Neutrophils # (Auto) 8.3 H 1.8-7.8 X 10^3 Lymphocytes # (Auto) 0.6 L 1.0-4.0 X 10^3 Monocytes # (Auto) 0.7 0.0-1.0 X 10^3 Eosinophils # (Auto) 0.0 0.0-0.3 10^3/uL Basophils # (Auto) 0.0 0.0-0.1 10^3/uL Neutrophils % (Manual) 85 % Lymphocytes % (Manual) 7 % Monocytes % (Manual) 8 % Blood Morphology Comment NORMAL Urine Color AI H Urine Clarity SLIGHTLY CLOUDY Urine pH 7 5-9 Urine Specific [place] 1.015 L 1.016-1.022 Urine Protein 2+ H NEGATIVE Urine Glucose (UA) 1+ H NEGATIVE Urine Ketones 3+ H NEGATIVE Urine Nitrite POSITIVE H NEGATIVE Urine Bilirubin 2+ H NEGATIVE Urine Urobilinogen 8 H NORMAL MG/DL Urine Leukocyte Esterase 2+ H NEGATIVE Urine RBC (Auto) NEGATIVE NEGATIVE Urine RBC NONE /HPF Urine WBC 2-5 /HPF Urine Squamous Epithelial Cells RARE /HPF Urine Crystals NONE /LPF Urine Amorphous Sediment MOD RICHARD URATES H /LPF Urine Bacteria TRACE /HPF Urine Casts NONE /LPF Urine Mucus NEGATIVE /LPF Urine Culture Indicated NO Sodium Level 141 135-145 MMOL/L Potassium Level 3.3 L 3.6-5.0 MMOL/L Chloride Level 107 98-107 MMOL/L Carbon Dioxide Level 21 21-32 MMOL/L Anion Gap 13 5-14 MMOL/L Blood Urea Nitrogen 14 7-18 MG/DL Creatinine 0.63 0.60-1.30 MG/DL Estimat Glomerular Filtration Rate > 60 BUN/Creatinine Ratio 22 Glucose Level 105 70-105 MG/DL Calcium Level 8.8 8.5-10.1 MG/DL Corrected Calcium 8.4 L 8.5-10.1 MG/DL Total Bilirubin 0.2 0.1-1.0 MG/DL Aspartate Amino Transf (AST/SGOT) 24 5-34 U/L Alanine Aminotransferase (ALT/SGPT) 18 0-55 U/L Alkaline Phosphatase 73 40-136 U/L Total Protein 7.3 6.4-8.2 GM/DL Albumin 4.5 3.2-4.5 GM/DL My Orders Orders - DIANA ONEILL Ondansetron Injection (Zofran Injectio (07/15/18 18:15) Lactated Ringers (Lr 1000 Ml Iv Solution (07/15/18 18:03) Saline Lock/Iv-Start (07/15/18 18:03) Diphenhydramine Injection (Benadryl Inje (07/15/18 18:45) Ceftriaxone For Iv Use (Rocephin For I (07/15/18 18:45) Diphenhydramine Injection (Benadryl Inje (07/15/18 18:34) Diphenhydramine Injection (Benadryl Inje (07/15/18 18:45) Medications Given in ED Current Medications Medications Dose Ordered Sig/Fawad Route Start Time Stop Time Status Last Admin Dose Admin Lactated Ringer's 1,000 ml @ 0 mls/hr Q0M ONCE IV 07/15/18 18:03 07/15/18 18:05 DC 07/15/18 18:20 1,000 MLS/HR Ondansetron HCl 4 mg ONCE ONCE IVP 07/15/18 18:00 07/15/18 18:01 DC 07/15/18 18:21 4 MG Ondansetron HCl 4 mg ONCE ONCE IVP 07/15/18 18:15 07/15/18 18:16 DC 07/15/18 18:26 4 MG Vital Signs/I&O 07/15/18 17:40 Temp 97.3 Pulse 84 Resp 18 B/P (MAP) 130/78 (95) Pulse Ox 100 O2 Delivery Room Air Capillary Refill : Progress Note #1: Time: 18:22 Progress Note (Enteritis versus maybe a UTI. She is not very tender on her abdomen. We'll get a urine specimen by straight catheter and some blood work while giving her a bag of lactated Ringer's and 8 mg of Zofran for short observation period. Progress Note #2: Time: 18:38 Progress Note After the patient had her IV fluids started and some Zofran 8 mg IV given she began to develop on her right arm so lateral to the IV site in her right antecubital space some irregular, well demarcated, blanchable, erythematous, nonraised, nonpruritic rash is approximately 1 cm diameter. She's had no change in her respiratory status, stridor or other evidence of any anaphylaxis. She has not received any medicines besides Zofran which she has been taking in the past. Her urine has positive nitrites clinically and start her on some antibiotics and give her some Benadryl for the red rash. She does not seem to be at all uncomfortable. 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 Departure Impression Primary Impression: UTI (urinary tract infection) Qualified Codes: N30.01 - Acute cystitis with hematuria Additional Impressions: Dehydration Nausea & vomiting Qualified Codes: R11.2 - Nausea with vomiting, unspecified Rash Disposition: HOME, SELF-CARE Condition: Improved Departure-Patient Inst. Decision time for Depature: 20:31 Referrals: VIJAY GALVEZ DO (PCP/Family) Primary Care Physician Patient Instructions: Urinary Tract Infection, Adult (DC) Add. Discharge Instructions: Drink plenty of fluids. Use the Zofran and Phenergan as necessary to keep her nausea under control. supervisor partial denture department the antibiotics and start taking one capsule of Keflex twice a day for the next 5 days. If she is not getting better follow-up with primary care. If you cannot control her nausea and/or vomiting then return to the ER. All discharge instructions reviewed with patient and/or family. Voiced understanding. Scripts Cephalexin (Cephalexin) 500 Mg Capsule 500 MG PO BID for 5 Days, #10 CAP 0 Refills Prov: DIANA ONEILL 07/15/18 DIANA ONEILL Jul 15, 2018 18:10
[2018-07-15 18:22] LABS: BASOPHILS % (AUTO) 0 % (0-10); EOSINOPHILS % (AUTO) 0 % (0-10); HEMATOCRIT 40 % (35-52); HEMOGLOBIN 13.2 G/DL (11.5-16.0); LYMPHOCYTES # (AUTO) 0.6 X 10^3 (1.0-4.0); LYMPHOCYTES % (AUTO) 6 % (12-44); MEAN CORPUSCULAR HEMOGLOBIN 30 PG (25-34); MEAN CORPUSCULAR HGB CONC 33 G/DL (32-36); MEAN CORPUSCULAR VOLUME 89 FL (80-99); MEAN PLATELET VOLUME 9.6 FL (7.4-10.4); MONOCYTES # (AUTO) 0.7 X 10^3 (0.0-1.0); MONOCYTES % (AUTO) 7 % (0-12); NEUTROPHILS # (AUTO) 8.3 X 10^3 (1.8-7.8); NEUTROPHILS % (AUTO) 87 % (42-75); PLATELET COUNT 270 10^3/uL (130-400); RED BLOOD COUNT 4.47 10^6/uL (4.35-5.85); RED CELL DISTRIBUTION WIDTH 14.1 % (10.0-14.5); WHITE BLOOD COUNT 9.6 10^3/uL (4.3-11.0)
[2018-07-15 18:23] LABS: CLARITY,URINE SLIGHTLY CLOUDY; COLOR,URINE AMBER; GLUCOSE, URINE (UA) 1+ (NEGATIVE); KETONES,URINE 3+ (NEGATIVE); LEUKOCYTE ESTERASE ,URINE 2+ (NEGATIVE); NITRITE,URINE POSITIVE (NEGATIVE); PH,URINE 7 (5-9); PROTEIN,URINE 2+ (NEGATIVE); UROBILINOGEN,URINE 8 MG/DL (NORMAL)
[2018-07-15 18:30] LABS: AMORPHOUS SEDIMENT,UR MOD AMOR URATES /LPF; BACTERIA,URINE TRACE /HPF; BILIRUBIN,URINE 2+ (NEGATIVE); SQUAMOUS EPITHELIAL CELL,UR RARE /HPF
[2018-07-15] MEDS ORDERED: diphenhydrAMINE 50 MG/ML INJ (BENADRYL) ONE (18:34)
[2018-07-15 18:45] LABS: ALANINE AMINOTRANSFERASE 18 U/L (0-55); ALBUMIN 4.5 GM/DL (3.2-4.5); ALKALINE PHOSPHATASE 73 U/L (40-136); BILIRUBIN,TOTAL 0.2 MG/DL (0.1-1.0); BUN/CREATININE RATIO 22; CALCIUM 8.8 MG/DL (8.5-10.1); CARBON DIOXIDE 21 MMOL/L (21-32); CHLORIDE 107 MMOL/L (98-107); CREATININE SERUM 0.63 MG/DL (0.60-1.30); GFR ESTIMATED > 60; GLUCOSE 105 MG/DL (70-105); POTASSIUM 3.3 MMOL/L (3.6-5.0); SODIUM 141 MMOL/L (135-145); TOTAL PROTEIN 7.3 GM/DL (6.4-8.2)
[2018-07-15] MEDS ORDERED: diphenhydrAMINE 50 MG/ML INJ (BENADRYL) IM ONE (18:45)
[2018-07-15] MEDS ORDERED: cefTRIAXone FOR IV USE 1,000 MG in NS (IVPB) 50 ML IV ONE (18:45)
[2018-07-15] MEDS ORDERED: diphenhydrAMINE 50 MG/ML INJ (BENADRYL) IVP ONE (18:45)
[2018-07-15 18:49] LABS: LYMPHOCYTES % (MANUAL) 7 %; MONOCYTES % (MANUAL) 8 %; NEUTROPHILS % (MANUAL) 85 %; RBC MORPH NORMAL
[2018-07-15] MEDS ORDERED: CEPH500C PO (19:48)
[2018-07-15] MEDS ORDERED: LORazepam INJ 2 MG/ML (ATIVAN) VIAL IVP ONE (21:00)
[2018-07-15 21:46] VITALS: BP 130/78
== END 2018-07-15 21:47 | disposition home or self-care (01) ==
LOC: EDUNIT# 17:38 → ER 17:39
DX: N39.0 Urinary tract infection, site not specified (principal); E86.0 Dehydration; R21 Rash and other nonspecific skin eruption; Q90.9 Down syndrome, unspecified; G40.909 Epilepsy, unspecified, not intractable, without status epilepticus; Z82.49 Family history of ischemic heart disease and other diseases of the circulatory system; Z87.19 Personal history of other diseases of the digestive system; Z87.442 Personal history of urinary calculi; Z98.890 Other specified postprocedural states; Z93.6 Other artificial openings of urinary tract status; Z87.01 Personal history of pneumonia (recurrent)
CPT/HCPCS: 36415; 51701; 80053; 81000; 85007; 85027; 96361; 96365; 96375

== ENCOUNTER → 2018-07-20 | Day surgery (SDC) | payer MEDICAID ==
[~2018-07-20] VITALS: Ht 142.2 cm; Wt 41.3 kg
[~2018-07-20] MED LIST changes: +CEPH500C PO; +CETI10TA23 PO; +DIAZ5TAB3 PO; +LACT10SO46 PO; +LACT1CAP87 PO; +MECL12.579 PO; +MONT10TA24 PO; +PANT40TA3 PO; +SERT50TA9 PO
[2018-07-20 10:30] VITALS: BP 118/89
--- NOTE | 2018-07-20 11:58 | Progress Note-Post Operative ---
Post-Operative Progess Note Surgeon (s)/Hotel Housekeeper (s) Surgeon LEE ALVAREZ MD Hotel Housekeeper: none Pre-Operative Diagnosis dysphagia, developmental delay, malfunctioning g-tube Post-Operative Diagnosis same Procedure & Operative Findings Date of Procedure 07/20/18 Procedure Performed/Findings removal replacement qi-henry g-tube. Anesthesia Type none Estimated Blood Loss Estimated blood loss (mL): minimal Specimens/Packing Specimens Removed none LEE ALVAREZ MD Jul 20, 2018 11:58
[2018-07-20 12:42] VITALS: BP 118/89
--- OUTSIDE RECORDS SUMMARY | 2018-07-20 14:55 | XMS REPORT | Clinical Summary ---
Author Author [facility] Organization [facility] Address Unknown Phone Unavailable Care Team Providers Care Coffee Grower Name Role Phone Garth Peterson MD Unavailable Cyril Ambrocio MD PCP Gretta Herbert RN Unavailable Unavailable Aylin Tavera RN Unavailable Unavailable Geovanna Nagel APRN Unavailable Source Comments Some departments are not documenting in the electronic medical record. If you do not see the information that you expected, contact Release of Information in the Health Information Management department at [phone] for further assistance in locating additional records.[facility] Allergies No Known Allergies Medications End Date Status Medication Sig Dispensed Refills Start Date Active OXcarbazepine (TRILEPTAL) Take by 0 300 mg/5 mL susp oral mouth twice suspension daily. 13.5 ml po in the am and 15ml in the evening. Active pantoprazole DR Take 40 mg by 0 (PROTONIX) 40 mg tablet mouth daily. Active lactulose 10 gram/15 mL Take 10 g by 0 oral solution mouth twice daily. Active sertraline (ZOLOFT) 50 mg Take 50 mg by 0 tablet mouth daily. Active diazepam (VALIUM) 5 mg Take 2.5 mg 0 tablet by mouth daily. 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 Social History Date Tobacco Use Types Packs/Day Years Used Never Smoker Smokeless Tobacco: Never Used Tobacco Cessation: Counseling Given: Yes Alcohol Use Drinks/Week oz/Week Comments No 0 Standard 0.0 drinks or equivalent Sex Assigned at Date Recorded Not on file Industry Job Start Date Occupation Not on file Not on file Not on file Travel End Travel History Travel Start No recent travel history available. Last Filed Vital Signs Time Taken Vital Sign Reading 10/15/2014 6:30 AM CDT Blood Pressure 144/100 10/15/2014 6:30 AM CDT Pulse 103 10/15/2014 6:30 AM CDT Temperature 36.7 C (98 F) - Respiratory Rate - 10/15/2014 6:30 AM CDT Oxygen Saturation 93% - Inhaled Oxygen - Concentration 01/29/2015 9:10 AM CDT Weight 38.6 kg (85 lb) 01/29/2015 9:10 AM CDT Height 129.5 cm (4' 3") 01/29/2015 9:10 AM CDT Body Mass Index 22.98 Plan of Treatment Health Maintenance Due Date Last Done Comments PHYSICAL (COMPREHENSIVE) 1995 EXAM HIV SCREENING 2003 DTAP/TDAP VACCINES (1 - 2006 Tdap) INFLUENZA VACCINE 02/02/2018 CERVICAL CANCER SCREENING 2018 Results Not on filefrom Last 3 Months Advance Directives Patient has advance care planning documents, and code status on file. For more information, please contact: [facility] [address] [place] [address] Date Inactivated Comments Code Status Date Activated 10/15/2014 1:53 PM Full Code 10/12/2014 2:35 PM Provider has discussed Code Status No, discussion not w/Patient or Family? necessary based on Dx
--- OUTSIDE RECORDS SUMMARY | 2018-07-20 14:59 | XMS REPORT | Continuity of Care Document ---
Author Author [facility] Organization [facility] Address Unknown Phone Unavailable Allergies Active Description Code Type Severity Reaction Onset Reported/Identified Relationship to Patient Clinical Status Yes No Known Drug Allergies Drug Allergy 04/26/2012 Yes No Known Allergies No Known Allergies Drug Allergy Unknown N/A 2013 Yes No Known Drug Allergy Drug Allergy Unknown N/A 09/28/2016 Yes No Known Drug Allergies [id number] Drug Allergy Unknown N/A 07/13/2018 Medications Medication Packaging Start Date Stop Date Route Dosage Sig Stool Softener 100 mg capsule Capsule 09/28/2016 100 mg take 1 (one) Capsule by Oral route daily diazePAM 2.5 mg rectal kit Kit 2.5 mg take 1 (one) Kit by Rectal route daily montelukast 10 mg tablet Blister 09/28/2016 10 mg take 1 (one) Tablet by Oral route daily OXcarbazepine 150 mg tablet Tablet 09/28/2016 150 mg take 1 (one) Tablet by Oral route daily Zoloft 100 mg tablet Tablet 201609/28/2016 100 mg take 1 (one) Tablet by Oral route daily ZyrTEC 10 mg capsule Capsule 2016 10 mg take 1 ( one) Capsule by Oral route daily Generlac 10 gram/15 mL oral solution Bottle 09/27/2017 10 gram/15 mL 10 Milliliter(s) by Oral route daily meclizine 12.5 mg tablet Tablet 12.5 mg take 1 (one) Tablet by Oral route daily Problems Date Dx Coded Attending Type Code [...] Ot 789.00 ABDOMINAL PAIN, UNSPECIFIED SITE 12/27/2013 DANICA JOHNSTON MD R Ot 276.8 HYPOPOTASSEMIA 12/27/2013 DANICA JOHNSTON MD Ot 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 12/27/2013 DANICA JOHNSTON MD Ot 564.00 UNSPEC CONSTIPATION 12/27/2013 DANICA JOHNSTON MD Ot 787.01 NAUSEA WITH VOMITING 12/27/2013 DANICA JOHNSTON MD Ot 936 FB IN INTESTINE COLON 12/27/2013 DANICA JOHNSTON MD Ot E915 FB ENTERING [facility] 12/27/2013 DANIAC JOHNSTON MD Ot V44.1 GASTROSTOMY STATUS 04/03/2014 MARY EM [...] 07/23/2014 Ot 593.89 07/23/2014 Ot V13.01 07/23/2014 MANAV TORRES, MARY Schilling Ot 788.1 07/23/2014 MANAV TORRES, MARY Schilling Ot V13.01 07/23/2014 MANAV TORRES, MARY Schilling Ot 592.0 07/23/2014 MANAV TORRES, MARY Schilling Ot V13.02 07/23/2014 MANAV TORRES, MARY Schilling Ot 593.2 07/23/2014 MANAV TORRES, MARY Schilling Ot 599.0 07/23/2014 MANAV TORRES, MARY Schilling Ot V13.01 07/23/2014 MANAV TORRES, MARY Schilling Ot 599.0 07/23/2014 Ot 599.0 07/23/2014 MARY EM MD Ot 788.1 07/23/2014 MANAV TORRES, MARY Schilling Ot 593.89 07/23/2014 MARY EM MD Ot 787.01 07/23/2014 MANAV TORRES, MARY Schilling Ot 788.1 07/23/2014 MANAV TORRES, MARY Schilling Ot 788.1 07/23/2014 MARY EM MD Ot 787.91 07/23/2014 WEI TORRES, ENEDINA Ny Ot 577.0 07/23/2014 WEI TORRES, ENEDINA Ny Ot 592.0 07/23/2014 MANAV TORRES, MARY Schilling Ot 599.0 07/23/2014 WEI TORRES, ENEDINA W Ot 319 07/23/2014 WEI TORRES, ENEDINA Ny Ot 530.81 07/23/2014 WEI TORRES, ENEDINA Ny Ot 787.03 07/23/2014 WEI TORRES, ENEDINA Ny Ot V44.1 07/23/2014 MANAV TORRES, MARY Schilling Ot 789.00 07/23/2014 Ot 783.5 07/23/2014 MANAV TORRES, MARY Schilling Ot 593.2 07/23/2014 MANAV TORRES, MARY Schilling Ot 787.01 07/23/2014 MANAV TORRES, MARY Schilling Ot 788.30 07/23/2014 WEI TORRES, ENEDINA Ny Ot 787.01 07/23/2014 WEI TORRES, ENEIDNA Ny Ot V44.1 07/23/2014 ELI DO, CHANDROUTIE Ot 936 07/23/2014 ELI DO, CHANDROUTIE Ot E915 07/23/2014 ELI DO, CHANDROUTIE Ot 938 07/23/2014 EIL DO, CHANDROUTIE Ot E915 07/23/2014 MANAV TORRES, MARY Schilling Ot 789.00 07/23/2014 Ot 388.60 07/23/2014 MANAV TORRES, MARY Schilling Ot 789.00 08/04/2014 MANAV TORRES, MARY Schilling Ot 780.60 08/11/2014 JULITO NELSON MD Ot 780.60 FEVER, UNSPECIFIED 08/14/2014 JULITO NELSON MD Ot 733.00 08/14/2014 JULITO NELSON MD Ot 755.9 08/14/2014 JULITO NELSON MD Ot 758.0 08/23/2014 JULITO NELSON MD Ot 733.00 08/23/2014 JULITO NELSON MD Ot 755.9 08/23/2014 JULITO NELSON MD Ot 758.0 10/09/2014 MANAV TORRES, MARY Schilling Ot 276.8 10/09/2014 MARY EM MD Ot [...] UNSPECIFIED 01/02/2015 LEE ALVAREZ MD Ot V58.69 OT MED,LT,CURRENT USE 01/14/2015 MARY EM MD Ot 788.1 01/28/2015 MARY EM MD Ot 788.1 02/17/2015 NUNO FLORES DO Ot 599.0 URIN TRACT INFECTION NOS 02/17/2015 NUNO FLORES DO Ot 787.01 NAUSEA WITH VOMITING 02/20/2015 MARY EM MD Ot 788.1 04/03/2015 Ot V13.01 04/03/2015 Ot 599.0 04/03/2015 Ot 783.5 04/03/2015 Ot 388.60 04/12/2015 LEE ALVAREZ MD Ot 345.90 04/12/2015 LEE ALVAREZ MD Ot 536.42 04/12/2015 LEE ALVAREZ MD Ot 787.20 04/12/2015 LEE ALVAREZ MD Ot V58.69 04/19/2015 LEE ALVAREZ MD Ot 345.90 04/19/2015 LEE ALVAREZ MD Ot 536.42 04/19/2015 LEE ALVAREZ MD Ot 787.20 04/19/2015 LEE ALVAREZ MD Ot V58.69 04/25/2015 MARY EM MD Ot R50.9 04/25/2015 MANAV TORRES, MARY Schilling Ot R56.9 07/02/2015 MANAV TORRES, MARY Schilling Ot N39.0 07/31/2015 MANAV TORRES, MARY Schilling Ot R30.0 07/31/2015 MARY EM MD Ot N20.0 08/13/2015 Ot K92.0 08/13/2015 Ot Z53.21 02/27/2016 SAIRA SANJIV N CORPORATE STATISTICAL FINANCIAL ANALYST Ot R10.84 GENERALIZED ABDOMINAL PAIN 02/27/2016 SAIRA SANJIV N CORPORATE STATISTICAL FINANCIAL ANALYST Ot R30.0 DYSURIA 02/27/2016 SAIRA SANJIV N CORPORATE STATISTICAL FINANCIAL ANALYST Ot R53.83 OTHER FATIGUE 03/06/2016 SAIRA SANJIV N CORPORATE STATISTICAL FINANCIAL ANALYST Ot R10.84 GENERALIZED ABDOMINAL PAIN 03/06/2016 SAIRA SANJIV N CORPORATE STATISTICAL FINANCIAL ANALYST Ot R30.0 DYSURIA 03/06/2016 SAIRA SANJIV Aristeo CORPORATE STATISTICAL FINANCIAL ANALYST Ot R53.83 OTHER FATIGUE 03/20/2016 Ot 087.9 [...] URINARY (TRACT) INFECT 03/20/2016 Ot V58.69 OTH MED,LT, CURRENT USE 03/20/2016 Ot 592.0 CALCULUS OF KIDNEY 03/20/2016 Ot V72.84 EXAM PRE- OPERATIVE NOS 03/20/2016 Ot 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 [...] INFECTION NOS 03/20/2016 MARY EM MD Ot 788.1 DYSURIA 03/20/2016 MARY EM MD Ot 593.89 RENAL URETERAL DIS NEC 03/20/2016 MARY EM MD Ot 787.01 NAUSEA WITH VOMITING 03/20/2016 MARY EM MD Ot 788.1 DYSURIA 03/20/2016 MARY EM MD Ot 788.1 DYSURIA 03/20/2016 MARY EM MD Ot 787.91 DIARRHEA 03/20/2016 ENEDINA CARVAJAL MD Ot 577.0 ACUTE PANCREATITIS 03/20/2016 ENEDINA CARVAJAL MD Ot 592.0 CALCULUS OF KIDNEY 03/20/2016 MARY EM MD Ot 599.0 URIN TRACT INFECTION NOS 03/20/2016 ENEDINA CARVAJAL MD Ot 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 03/20/2016 ENEDINA CARVAJAL MD Ot 530.81 ESOPHAGEAL REFLUX 03/20/2016 ENEDINA CARVAJAL MD Ot 787.03 VOMITING ALONE 03/20/2016 ENEDINA CARVAJAL MD Ot V44.1 GASTROSTOMY STATUS 03/20/2016 MANAV TORRES, MARY Schilling Ot 789.00 ABDOMINAL PAIN, UNSPECIFIED SITE 03/20/2016 Ot 783.5 POLYDIPSIA 03/20/2016 MARY EM MD Ot 593.2 CYST OF KIDNEY, ACQUIRED 03/20/2016 MARY EM MD Ot 787.01 NAUSEA WITH VOMITING 03/20/2016 MARY EM MD Ot 788.30 UNSPECIFIED URINARY INCONTINENCE 03/20/2016 ENEDINA CARVAJAL MD Ot 787.01 NAUSEA WITH VOMITING 03/20/2016 ENEDINA [...] EM MD Ot 780.60 FEVER, UNSPECIFIED 03/20/2016 JULITO NELSON MD Ot 733.00 OSTEOPOROSIS NOS 03/20/2016 JULITO NELSON [...] MD Ot V72.84 EXAM PRE-OPERATIVE NOS 03/20/2016 MANAV TORRES, MARY Schilling Ot 788.1 DYSURIA 03/20/2016 MARY EM MD [...] OUT D/T PT LV BEF SEE 03/20/2016 SANJIV CHÁVEZ APRN Ot R10.84 GENERALIZED ABDOMINAL PAIN 03/20/2016 SANJIV CHÁVEZ CORPORATE STATISTICAL FINANCIAL ANALYST Ot R30.0 DYSURIA 03/20/2016 SANJIV CHÁVEZ CORPORATE STATISTICAL FINANCIAL ANALYST Ot R53.83 OTHER FATIGUE 03/20/2016 SANJIV CHÁVEZ CORPORATE STATISTICAL FINANCIAL ANALYST Ot R30.0 DYSURIA 03/20/2016 SANJIV CHÁVEZ CORPORATE STATISTICAL FINANCIAL ANALYST Ot R33.9 RETENTION OF URINE, UNSPECIFIED 03/20/2016 SANJIV CHÁVEZ CORPORATE STATISTICAL FINANCIAL ANALYST Ot R30.0 DYSURIA 03/20/2016 SANJIV CHÁVEZ CORPORATE STATISTICAL FINANCIAL ANALYST Ot R33.9 RETENTION OF URINE, UNSPECIFIED 03/20/2016 SANJIV CHÁVEZ CORPORATE STATISTICAL FINANCIAL ANALYST Ot N39.0 URINARY TRACT INFECTION, SITE NOT SPECIF 03/24/2016 KEILY ARANGO DO Ot N39.0 URINARY TRACT INFECTION, SITE NOT SPECIF 03/26/2016 SANJIV CHÁVEZ CORPORATE STATISTICAL FINANCIAL ANALYST Ot N39.0 URINARY TRACT INFECTION, SITE NOT SPECIF 03/30/2016 SANJIV CHÁVEZ CORPORATE STATISTICAL FINANCIAL ANALYST Ot R21 RASH AND OTHER NONSPECIFIC SKIN ERUPTION 04/01/2016 SANJIV CHÁVEZ CORPORATE STATISTICAL FINANCIAL ANALYST Ot R30.0 DYSURIA 04/01/2016 SANJIV CHÁVEZ CORPORATE STATISTICAL FINANCIAL ANALYST Ot R33.9 RETENTION OF URINE, UNSPECIFIED 04/01/2016 SANJIV CHÁVEZ CORPORATE STATISTICAL FINANCIAL ANALYST Ot N39.0 URINARY TRACT INFECTION, SITE NOT SPECIF 04/08/2016 SANJIV CHÁVEZ CORPORATE STATISTICAL FINANCIAL ANALYST Ot R21 RASH AND OTHER NONSPECIFIC SKIN ERUPTION 04/16/2016 KIM TORRES, LEE Ot Z01.818 ENCOUNTER FOR OTHER PREPROCEDURAL EXAMIN 04/17/2016 ORENDER DO, KEILY S Ot N39.0 URINARY TRACT INFECTION, SITE NOT SPECIF 05/20/2016 ORENDER DO, KEILY S Ot M79.672 PAIN IN LEFT FOOT 05/20/2016 ORENDER DO, KEILY S Ot M79.89 OTHER SPECIFIED SOFT TISSUE DISORDERS 06/01/2016 ORENDER DO, KEILY S Ot M79.672 PAIN IN LEFT FOOT 06/01/2016 ORENDER DO, KEILY S Ot M79.89 OTHER SPECIFIED SOFT TISSUE DISORDERS 06/21/2016 ORENDER DO, KEILY S Ot N39.0 URINARY TRACT INFECTION, SITE NOT SPECIF 06/22/2016 ORENDER DO, KEILY S Ot N39.0 URINARY TRACT INFECTION, SITE NOT SPECIF 08/09/2016 DINORAH TORRES, BRINA Mcrae Ot F72 SEVERE INTELLECTUAL DISABILITIES 08/09/2016 BRINA COPELAND MD Ot G80.9 CEREBRAL PALSY, UNSPECIFIED 08/09/2016 BRINA COPELAND MD Ot K76.89 OTHER SPECIFIED DISEASES OF LIVER 08/09/2016 BRINA COPELAND MD Ot N20.0 CALCULUS OF KIDNEY 08/09/2016 BRINA COPELAND MD Ot N28.1 CYST OF KIDNEY, ACQUIRED 08/09/2016 BRINA COPELAND MD Ot N83.201 UNSPECIFIED OVARIAN CYST, RIGHT SIDE 08/09/2016 BRINA COPELAND MD Ot R10.84 GENERALIZED ABDOMINAL PAIN 08/09/2016 BRINA COPELAND MD Ot R11.2 NAUSEA WITH VOMITING, UNSPECIFIED 08/09/2016 DINORAH TORRES, BRINA Mcrae Ot Z93.1 GASTROSTOMY STATUS 08/09/2016 DINORAH TORRES, BRINA Mcrae Ot 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 08/11/2016 DINORAH TORRES, BRINA Mcrae Ot F72 SEVERE INTELLECTUAL DISABILITIES 08/11/2016 DINORAH TORRES, BRINA Mcrae Ot G80.9 CEREBRAL PALSY, UNSPECIFIED 08/11/2016 DINORAH TORRES, BRINA Mcrae Ot K76.89 OTHER SPECIFIED DISEASES OF LIVER 08/11/2016 DINORAH TORRES, BRINA Mcrae Ot N20.0 CALCULUS OF KIDNEY 08/11/2016 DINORAH TORRES, BRINA Mcrae Ot N28.1 CYST OF KIDNEY, ACQUIRED 08/11/2016 DINORAH TORRES, BRINA Mcrae Ot N83.201 UNSPECIFIED OVARIAN CYST, RIGHT SIDE 08/11/2016 BRINA COPELAND MD Ot R10.84 GENERALIZED ABDOMINAL PAIN 08/11/2016 BRINA COPELAND MD Ot R11.2 NAUSEA WITH VOMITING, UNSPECIFIED 08/11/2016 BRINA COPELAND MD Ot Z93.1 GASTROSTOMY STATUS 08/11/2016 DINORAH TORRES, BRINA Mcrae Ot 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 08/12/2016 ORENDER DO, KEILY S Ot R10.9 UNSPECIFIED ABDOMINAL PAIN 08/12/2016 YOVANYNDER DO, KEILY S Ot R50.9 FEVER, UNSPECIFIED 08/18/2016 DINORAH TORRES, BRINA Mcrae Ot F72 SEVERE INTELLECTUAL DISABILITIES 08/18/2016 DINORAH TORRES, BRNIA Mcrae Ot G80.9 CEREBRAL PALSY, UNSPECIFIED 08/18/2016 DINORAH TORRES, BRINA Mcrae Ot K76.89 OTHER SPECIFIED DISEASES OF LIVER 08/18/2016 BRINA COPELAND MD Ot N20.0 CALCULUS OF KIDNEY 08/18/2016 BRINA COPELAND MD Ot N28.1 CYST OF KIDNEY, ACQUIRED 08/18/2016 BRINA COPELAND MD Ot N83.201 UNSPECIFIED OVARIAN CYST, RIGHT SIDE 08/18/2016 BRINA COPELAND MD Ot R10.84 GENERALIZED ABDOMINAL PAIN 08/18/2016 BRINA COPELAND MD Ot R11.2 NAUSEA WITH VOMITING, UNSPECIFIED 08/18/2016 BRINA COPELAND MD Ot Z93.1 GASTROSTOMY STATUS 08/18/2016 DINORAH TORRES, BRINA Mcrae Ot 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 08/25/2016 ORENDER DO, KEILY S Ot R10.9 UNSPECIFIED ABDOMINAL PAIN 08/25/2016 YOVANYNDER DO, KEILY S Ot R50.9 FEVER, UNSPECIFIED 09/18/2016 ORENDER DO, KEILY S Ot R32 UNSPECIFIED URINARY INCONTINENCE 09/18/2016 YOVANYNDER DO, KEILY S Ot R35.8 OTHER POLYURIA 09/26/2016 JULITO NELSON MD Ot F79 UNSPECIFIED INTELLECTUAL DISABILITIES 09/26/2016 JULITO NELSON MD Ot G40.909 EPILEPSY, UNSP, NOT INTRACTABLE, WITHOUT 09/26/2016 JULITO NELSON MD Ot G80.9 CEREBRAL PALSY, UNSPECIFIED 09/26/2016 JULITO NELSON MD Ot K59.00 CONSTIPATION, UNSPECIFIED 09/26/2016 JULITO NELSON MD Ot R10.9 UNSPECIFIED ABDOMINAL PAIN 09/26/2016 JULITO NELSON MD Ot Z93.1 GASTROSTOMY STATUS 09/26/2016 JULITO NELSON MD Ot 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 09/30/2016 REKHA TORRES, CECILIO Hodges F84.8 Other pervasive developmental disorders REKHA TORRES, CECILIO Hodges 09/30/2016 CECILIO DA SILVA MD N20.0 Calculus of kidney CECILIO DA SILVA MD 09/30/2016 CECILIO DA SILVA MD 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 CECILIO DA SILVA MD 11/05/2016 KEILY ARANGO DO S Ot J30.9 ALLERGIC RHINITIS, UNSPECIFIED 11/11/2016 LEE ALVAREZ MD Ot K94.23 GASTROSTOMY MALFUNCTION 11/11/2016 LEE ALVAREZ MD Ot Z01.818 ENCOUNTER FOR OTHER PREPROCEDURAL EXAMIN 11/13/2016 LEE ALVAREZ MD Ot K94.23 GASTROSTOMY MALFUNCTION 11/13/2016 LEE ALVAREZ MD Ot R13.10 DYSPHAGIA, UNSPECIFIED 11/13/2016 LEE ALVARZE MD, Ot R56.9 UNSPECIFIED CONVULSIONS 11/13/2016 LEE ALVAREZ MD Ot R62.50 UNSP LACK OF EXPECTED NORMAL PHYSIOL DEV 11/13/2016 LEE ALVAREZ MD Ot Z79.899 OTHER FPC (CURRENT) DRUG THERAPY 11/16/2016 LEE ALVAREZ MD Ot K94.23 GASTROSTOMY MALFUNCTION 11/16/2016 LEE ALVAREZ MD Ot R13.10 DYSPHAGIA, UNSPECIFIED 11/16/2016 LEE ALVAREZ MD Ot R56.9 UNSPECIFIED CONVULSIONS 11/16/2016 LEE ALVAREZ MD Ot R62.50 UNSP LACK OF EXPECTED NORMAL PHYSIOL DEV 11/16/2016 LEE ALVAREZ MD, Ot 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 12/10/2016 LEE ALVAREZ MD Ot K94.23 GASTROSTOMY MALFUNCTION 12/10/2016 LEE ALVAREZ MD Ot R13.10 DYSPHAGIA, UNSPECIFIED 12/10/2016 LEE ALVAREZ MD Ot R56.9 UNSPECIFIED CONVULSIONS 12/10/2016 LEE ALVAREZ MD Ot Z79.899 OTHER FPC (CURRENT) DRUG THERAPY 12/16/2016 LEE ALVAREZ MD Ot K94.23 GASTROSTOMY MALFUNCTION 12/16/2016 LEE ALVAREZ MD Ot R13.10 DYSPHAGIA, UNSPECIFIED 12/16/2016 LEE ALVAREZ MD Ot R56.9 UNSPECIFIED CONVULSIONS 12/16/2016 LEE ALVAREZ MD Ot 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 12/29/2016 KEILY ARANGO DO Ot K59.00 CONSTIPATION, UNSPECIFIED 03/04/2017 KYRA LIPSCOMB Ot K22.9 DISEASE OF ESOPHAGUS, UNSPECIFIED 03/04/2017 KYRA LIPSCOMB Ot Z93.1 GASTROSTOMY STATUS 03/15/2017 KEILY ARANGO DO Ot R42 DIZZINESS AND GIDDINESS 03/15/2017 KEILY ARANGO DO Ot R93.0 ABNORMAL FINDINGS ON DX IMAGING OF SKULL 03/30/2017 KYRA LIPSCOMB Ot K22.9 DISEASE OF ESOPHAGUS, UNSPECIFIED 03/30/2017 KYRA LIPSCOMB Ot Z93.1 GASTROSTOMY STATUS 04/06/2017 ORENDER DO, KEILY S Ot R42 DIZZINESS AND GIDDINESS 04/06/2017 ORENDER DO, KEILY S Ot R93.0 ABNORMAL FINDINGS ON DX IMAGING OF SKULL 04/27/2017 ORENDER DO, KEILY S Ot R11.10 VOMITING, UNSPECIFIED 04/27/2017 ORENDER DO, KEILY S Ot R42 DIZZINESS AND GIDDINESS 04/30/2017 ORENDER DO, KEILY S Ot R11.10 VOMITING, UNSPECIFIED 04/30/2017 ORENDER DO, KEILY S Ot R42 DIZZINESS AND GIDDINESS 05/25/2017 ORENDER DO, KEILY S Ot R11.10 VOMITING, UNSPECIFIED 05/25/2017 ORENDER DO, KEILY S Ot R42 DIZZINESS AND GIDDINESS 06/07/2017 ORENDER DO, KEILY S Ot R11.10 VOMITING, UNSPECIFIED 06/07/2017 ORENDER DO, KEILY S Ot R42 DIZZINESS AND GIDDINESS 08/17/2017 ORENDER DO, KEILY S Ot R10.84 GENERALIZED ABDOMINAL PAIN 08/17/2017 ORENDER DO, KEILY S Ot R50.9 FEVER, UNSPECIFIED 09/14/2017 CARLYN DESIR APRN Ot G40.909 EPILEPSY, UNSP, NOT INTRACTABLE, WITHOUT 09/14/2017 CARLYN DESIR APRN Ot S90.32XA CONTUSION OF LEFT FOOT, INITIAL ENCOUNTE 09/14/2017 CARLYN DESIR APRN Ot S99.922A UNSPECIFIED INJURY OF LEFT FOOT, INITIAL 09/14/2017 CARLYN DESIR APRN Ot W22.09XA STRIKING AGAINST OTHER STATIONARY OBJECT 09/14/2017 CARLYN DESIR APRN Ot Z87.19 PERSONAL HISTORY OF OTHER DISEASES OF TH 09/14/2017 CARLYN DESIR APRN Ot Z87.442 PERSONAL HISTORY OF URINARY CALCULI 09/14/2017 CARLYN DESIR APRN Ot Z98.890 OTHER SPECIFIED POSTPROCEDURAL STATES 09/16/2017 CARLYN DESIR APRN Ot G40.909 EPILEPSY, UNSP, NOT INTRACTABLE, WITHOUT 09/16/2017 DESIR, PETER J CORPORATE STATISTICAL FINANCIAL ANALYST Ot S90.32XA CONTUSION OF LEFT FOOT, INITIAL ENCOUNTE 09/16/2017 CARLYN DESIR CORPORATE STATISTICAL FINANCIAL ANALYST Ot S99.922A UNSPECIFIED INJURY OF LEFT FOOT, INITIAL 09/16/2017 CARLYN DESIR CORPORATE STATISTICAL FINANCIAL ANALYST Ot W22.09XA STRIKING AGAINST OTHER STATIONARY OBJECT 09/16/2017 CARLYN DESIR CORPORATE STATISTICAL FINANCIAL ANALYST Ot Z87.19 PERSONAL HISTORY OF OTHER DISEASES OF TH 09/16/2017 CARLYN DESIR CORPORATE STATISTICAL FINANCIAL ANALYST Ot Z87.442 PERSONAL HISTORY OF URINARY CALCULI 09/16/2017 CARLYN DESIR CORPORATE STATISTICAL FINANCIAL ANALYST Ot Z98.890 OTHER SPECIFIED POSTPROCEDURAL STATES 09/23/2017 CECILIO DA SILVA MD F Ot N20.0 CALCULUS OF KIDNEY 09/23/2017 CECILIO DA SILVA MD F Ot N28.1 CYST OF KIDNEY, ACQUIRED 09/23/2017 CECILIO DA SILVA MD F Ot Z93.1 GASTROSTOMY STATUS 09/24/2017 CECILIO DA SILVA MD F Ot N20.0 CALCULUS OF KIDNEY 09/24/2017 CECILIO DA SILVA MD F Ot N28.1 CYST OF KIDNEY, ACQUIRED 09/24/2017 CECILIO DA SILVA MD F Ot Z93.1 GASTROSTOMY STATUS 09/28/2017 REKHA TORRES, CECILIO F F84.8 Other pervasive developmental disorders REKHA TORRES, CECILIO F 09/28/2017 CECILIO DA SILVA MD F N20.0 Calculus of kidney CHARLIE DA SILVA MDORY F 09/28/2017 CECILIO DA SILVA MD F N28.1 Cyst of kidney, acquired DA SILVACECILIO BOWLES MD F 09/28/2017 CECILIO DA SILVA MD F Ot N20.0 CALCULUS OF KIDNEY 09/28/2017 CECILIO DA SILVA MD F Ot N28.1 CYST OF KIDNEY, ACQUIRED 09/28/2017 CECILIO DA SILVA MD F Ot Z93.1 GASTROSTOMY STATUS 11/02/2017 VERITO BECERRA CORPORATE STATISTICAL FINANCIAL ANALYST Ot J30.89 OTHER ALLERGIC RHINITIS 11/09/2017 VERITO BECERRA R CORPORATE STATISTICAL FINANCIAL ANALYST Ot J30.89 OTHER ALLERGIC RHINITIS 01/04/2018 VERITO BECERRA CORPORATE STATISTICAL FINANCIAL ANALYST Ot R11.10 VOMITING, UNSPECIFIED 01/04/2018 VERITO BECERRA R CORPORATE STATISTICAL FINANCIAL ANALYST Ot R34 ANURIA AND OLIGURIA 01/04/2018 VERITO BECERRA R CORPORATE STATISTICAL FINANCIAL ANALYST Ot R53.83 OTHER FATIGUE 01/06/2018 HERNANVERITO TEJADA R CORPORATE STATISTICAL FINANCIAL ANALYST Ot R11.10 VOMITING, UNSPECIFIED 01/06/2018 BLAINE BECERRAON R CORPORATE STATISTICAL FINANCIAL ANALYST Ot R34 ANURIA AND OLIGURIA 01/06/2018 HERNANVERITO TEJADA R CORPORATE STATISTICAL FINANCIAL ANALYST Ot R53.83 OTHER FATIGUE 07/13/2018 Ot 783.5 POLYDIPSIA 07/13/2018 Ot 388.60 OTORRHEA NOS 07/13/2018 LEONOR HURLEY, KEILY S Ot N39.0 URINARY TRACT INFECTION, SITE NOT SPECIF 07/14/2018 KIM TORRES, LEE Ot Z01.818 ENCOUNTER FOR OTHER PREPROCEDURAL EXAMIN 07/15/2018 MANAV TORRES, MARY Schilling Ot 788.1 DYSURIA 07/15/2018 MANAV TORRES, MARY Schilling Ot 593.89 RENAL URETERAL DIS NEC 07/15/2018 MANAV TORRES, MARY Schilling Ot 787.01 NAUSEA WITH VOMITING 07/15/2018 MANAV TORRES, MARY Schilling Ot 788.1 DYSURIA 07/15/2018 MANAV TORRES, MARY Schilling Ot 788.1 DYSURIA 07/15/2018 MANAV TORRES, MARY Schilling Ot 787.91 DIARRHEA 07/15/2018 WEI TORRES, ENEDINA Ny Ot 577.0 ACUTE PANCREATITIS 07/15/2018 WEI TORRES, ENEDINA Ny Ot 592.0 CALCULUS OF KIDNEY 07/15/2018 MANAV TORRES, MARY Schilling Ot 599.0 URIN TRACT INFECTION NOS 07/15/2018 WEI TORRES, ENEDINA Ny Ot 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 07/15/2018 ENEDINA CARVAJAL MD Ot 530.81 ESOPHAGEAL REFLUX 07/15/2018 ENEDINA CARVAJAL MD Ot 787.03 VOMITING ALONE 07/15/2018 ENEDINA CARVAJAL MD Ot V44.1 GASTROSTOMY STATUS 07/15/2018 MANAV TORRES, MARY Schilling Ot 789.00 ABDOMINAL PAIN, UNSPECIFIED SITE 07/15/2018 Ot 783.5 POLYDIPSIA 07/15/2018 MANAV TORRES, MARY Schilling Ot 593.2 CYST OF KIDNEY, ACQUIRED 07/15/2018 MANAV TORRES, MARY Schilling Ot 787.01 NAUSEA WITH VOMITING 07/15/2018 MANAV TORRES, MARY Schilling Ot 788.30 UNSPECIFIED URINARY INCONTINENCE 07/15/2018 WEI TORRES, ENEDINA Ny Ot 787.01 NAUSEA WITH VOMITING 07/15/2018 WEI TORRES, ENEDINA Ny Ot V44.1 GASTROSTOMY STATUS 07/15/2018 KENNEY BENITEZ DO Ot 936 FB IN INTESTINE COLON 07/15/2018 ELIKENNEY PATIÑO DO Ot E915 FB ENTERING OTH ORIFICE 07/15/2018 ELIKENNEY PATIÑO DO Ot 938 FOREIGN BODY GI NOS 07/15/2018 ELIKENNEY PATIÑO DO Ot E915 FB ENTERING OT ORIFICE 07/15/2018 MANAV TORRES, MARY Schilling Ot 789.00 ABDOMINAL PAIN, UNSPECIFIED SITE 07/15/2018 Ot 388.60 OTORRHEA NOS 07/15/2018 MANAV TORRES, MARY Schilling Ot 789.00 ABDOMINAL PAIN, UNSPECIFIED SITE 07/15/2018 MANAV TORRES, MARY Schilling Ot 780.60 FEVER, UNSPECIFIED 07/15/2018 LESLIE TORRES, JULITO Carr Ot 733.00 OSTEOPOROSIS NOS 07/15/2018 LESLIE TORRES, JULITO Carr Ot 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 07/15/2018 LESLIE TORRES, JULITO Carr Ot 758.0 DOWN'S SYNDROME 07/15/2018 MANAV TORRES, MARY Schilling Ot 276.8 HYPOPOTASSEMIA 07/15/2018 MANAV TORRES, MARY Schilling Ot 288.00 NEUTROPENIA, UNSPECIFIED 07/15/2018 MANAV TORRES, MARY Schilling Ot 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 07/15/2018 MARY EM MD Ot 780.39 OTHER CONVULSIONS 07/15/2018 MARY EM MD Ot 788.1 DYSURIA 07/15/2018 LEE ALVAREZ MD Ot V72.84 EXAM PRE-OPERATIVE NOS 07/15/2018 MARY EM MD Ot 788.1 DYSURIA 07/15/2018 MARY EM MD Ot 788.1 DYSURIA 07/15/2018 LEE ALVAREZ MD Ot 345.90 EPILEPSY UNSPEC W/O MENTION INTRACTABLE 07/15/2018 KIM TORRES, LEE Ot 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 07/15/2018 KIM TORRES, LEE Ot 787.20 DYSPHAGIA, UNSPECIFIED 07/15/2018 KIM TORRES, LEE Ot V58.69 OTH MED,LT,CURRENT USE 07/15/2018 MANAV TORRES, MARY Schilling Ot R50.9 FEVER, UNSPECIFIED 07/15/2018 MANAV TORRES, MARY Schilling Ot R56.9 UNSPECIFIED CONVULSIONS 07/15/2018 MARY EM MD Ot N39.0 URINARY TRACT INFECTION, SITE NOT SPECIF 07/15/2018 MARY EM MD Ot R30.0 DYSURIA 07/15/2018 MARY EM MD Ot N20.0 CALCULUS OF KIDNEY 07/15/2018 Ot K92.0 HEMATEMESIS 07/15/2018 Ot Z53.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 SEE 07/15/2018 SANJIV CHÁVEZ [employer]PORATE STATISTICAL FINANCIAL ANALYST Ot R10.84 GENERALIZED ABDOMINAL PAIN 07/15/2018 SANJIV CHÁVEZ [employer]PORATE STATISTICAL FINANCIAL ANALYST Ot R30.0 DYSURIA 07/15/2018 SANJIV CHÁVEZ [employer]PORATE STATISTICAL FINANCIAL ANALYST Ot R53.83 OTHER FATIGUE 07/15/2018 SANJIV CHÁVEZ [employer]PORATE STATISTICAL FINANCIAL ANALYST Ot R30.0 DYSURIA 07/15/2018 SANJIV CHÁVEZ CORPORATE STATISTICAL FINANCIAL ANALYST Ot R33.9 RETENTION OF URINE, UNSPECIFIED 07/15/2018 SANJIV CHÁVEZ [employer]PORATE STATISTICAL FINANCIAL ANALYST Ot N39.0 URINARY TRACT INFECTION, SITE NOT SPECIF 07/15/2018 SANJIV CHÁVEZ [employer]PORATE STATISTICAL FINANCIAL ANALYST Ot R21 RASH AND OTHER NONSPECIFIC SKIN ERUPTION 07/15/2018 KIM TORRES, LEE Ot Z01.818 ENCOUNTER FOR OTHER PREPROCEDURAL EXAMIN 07/15/2018 KEILY ARANGO DO Ot M79.672 PAIN IN LEFT FOOT 07/15/2018 KEILY ARANGO DO S Ot M79.89 OTHER SPECIFIED SOFT TISSUE DISORDERS 07/15/2018 KEILY ARANGO DO S Ot N39.0 URINARY TRACT INFECTION, SITE NOT SPECIF 07/15/2018 ORENDER DO, KEILY S Ot R10.9 UNSPECIFIED ABDOMINAL PAIN 07/15/2018 ORENDER DO, KEILY S Ot R50.9 FEVER, UNSPECIFIED 07/15/2018 ORENDER DO, KEILY S Ot R32 UNSPECIFIED URINARY INCONTINENCE 07/15/2018 ORENDER DO, KEILY S Ot R35.8 OTHER POLYURIA 07/15/2018 ORENDER DO, KEILY S Ot J30.9 ALLERGIC RHINITIS, UNSPECIFIED 07/15/2018 ORENDER DO, KEILY S Ot K59.00 CONSTIPATION, UNSPECIFIED 07/15/2018 KYRA LIPSCOMB Ot K22.9 DISEASE OF ESOPHAGUS, UNSPECIFIED 07/15/2018 KYRA LIPSCOMB Ot Z93.1 GASTROSTOMY STATUS 07/15/2018 ORENDER DO, KEILY S Ot R42 DIZZINESS AND GIDDINESS 07/15/2018 ORENDER DO, KEILY S Ot R93.0 ABNORMAL FINDINGS ON DX IMAGING OF SKULL 07/15/2018 ORENDER DO, KEILY S Ot R11.10 VOMITING, UNSPECIFIED 07/15/2018 ORENDER DO, KEILY S Ot R42 DIZZINESS AND GIDDINESS 07/15/2018 ORENDER DO, KEILY S Ot R10.84 GENERALIZED ABDOMINAL PAIN 07/15/2018 YOVANYNDER DO, KEILY S Ot R50.9 FEVER, UNSPECIFIED 07/15/2018 CECILIO DA SILVA MD Ot N20.0 CALCULUS OF KIDNEY 07/15/2018 CECILIO DA SILVA MD Ot N28.1 CYST OF KIDNEY, ACQUIRED 07/15/2018 CECILIO DA SILVA MD Ot Z93.1 GASTROSTOMY STATUS 07/15/2018 VERITO BECERRA APRN Ot J30.89 OTHER ALLERGIC RHINITIS 07/15/2018 KIM TORRES, LEE Ot Z01.818 ENCOUNTER FOR OTHER PREPROCEDURAL EXAMIN 07/15/2018 NINO TORRES, DIANA Schilling Ot E86.0 DEHYDRATION 07/15/2018 NINO TORRES, DIANA Schilling Ot G40.909 EPILEPSY, UNSP, NOT INTRACTABLE, WITHOUT 07/15/2018 NINO TORRES, DIANA Schilling Ot N39.0 URINARY TRACT INFECTION, SITE NOT SPECIF 07/15/2018 DIANA ONEILL MD Ot Q90.9 DOWN SYNDROME, UNSPECIFIED 07/15/2018 DIANA ONEILL MD Ot R11.2 NAUSEA WITH VOMITING, UNSPECIFIED 07/15/2018 DIANA ONEILL MD Ot R21 RASH AND OTHER NONSPECIFIC SKIN ERUPTION 07/15/2018 DIANA ONEILL MD Ot Z82.49 FAMILY HX OF ISCHEM HEART DIS AND OTH DI 07/15/2018 DIANA ONEILL MD Ot Z87.01 PERSONAL HISTORY OF PNEUMONIA (RECURRENT 07/15/2018 DIANA ONEILL MD Ot Z87.19 PERSONAL HISTORY OF OTHER DISEASES OF TH 07/15/2018 DIANA ONEILL MD Ot Z87.442 PERSONAL HISTORY OF URINARY CALCULI 07/15/2018 DIANA ONEILL MD Ot 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 07/15/2018 DIANA ONEILL MD Ot Z98.890 OTHER SPECIFIED POSTPROCEDURAL STATES 07/18/2018 LEE ALVAREZ MD Ot Z01.818 ENCOUNTER FOR OTHER PREPROCEDURAL EXAMIN 07/19/2018 DIANA ONEILL MD Ot E86.0 DEHYDRATION 07/19/2018 DIANA ONEILL MD Ot G40.909 EPILEPSY, UNSP, NOT INTRACTABLE, WITHOUT 07/19/2018 DIANA ONEILL MD Ot N39.0 URINARY TRACT INFECTION, SITE NOT SPECIF 07/19/2018 DIANA ONEILL MD Ot Q90.9 DOWN SYNDROME, UNSPECIFIED 07/19/2018 DIANA ONEILL MD Ot R11.2 NAUSEA WITH VOMITING, UNSPECIFIED 07/19/2018 DIANA ONEILL MD Ot R21 RASH AND OTHER NONSPECIFIC SKIN ERUPTION 07/19/2018 DIANA ONEILL MD Ot Z82.49 FAMILY HX OF ISCHEM HEART DIS AND OTH DI 07/19/2018 DIANA ONEILL MD Ot Z87.01 PERSONAL HISTORY OF PNEUMONIA (RECURRENT 07/19/2018 DIANA ONEILL MD Ot Z87.19 PERSONAL HISTORY OF OTHER DISEASES OF TH 07/19/2018 DIANA ONEILL MD Ot Z87.442 PERSONAL HISTORY OF URINARY CALCULI 07/19/2018 DIANA ONEILL MD Ot 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 07/19/2018 DIANA ONEILL MD Ot Z98.890 OTHER SPECIFIED POSTPROCEDURAL STATES 07/19/2018 MANAV TORRES, MARY Schilling Ot 788.1 DYSURIA 07/19/2018 MARY ME MD Ot 593.89 RENAL URETERAL DIS NEC 07/19/2018 MARY EM MD Ot 787.01 NAUSEA WITH VOMITING 07/19/2018 MARY EM MD Ot 788.1 DYSURIA 07/19/2018 MARY EM MD Ot 788.1 DYSURIA 07/19/2018 MARY EM MD Ot 787.91 DIARRHEA 07/19/2018 ENEDINA CARVAJAL MD Ot 577.0 ACUTE PANCREATITIS 07/19/2018 ENEDINA CARVAJAL MD Ot 592.0 CALCULUS OF KIDNEY 07/19/2018 MARY EM MD Ot 599.0 URIN TRACT INFECTION NOS 07/19/2018 WEI TORRES, ENEDINA Ny Ot 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 07/19/2018 WEI TORRES, ENEDINA Ny Ot 530.81 ESOPHAGEAL REFLUX 07/19/2018 ENEDINA CARVAJAL MD Ot 787.03 VOMITING ALONE 07/19/2018 ENEDINA CARVAJAL MD Ot V44.1 GASTROSTOMY STATUS 07/19/2018 MARY EM MD Ot 789.00 ABDOMINAL PAIN, UNSPECIFIED SITE 07/19/2018 Ot 783.5 POLYDIPSIA 07/19/2018 MARY EM MD Ot 593.2 CYST OF KIDNEY, ACQUIRED 07/19/2018 MARY EM MD Ot 787.01 NAUSEA WITH VOMITING 07/19/2018 MARY EM MD Ot 788.30 UNSPECIFIED URINARY INCONTINENCE 07/19/2018 ENEDINA CARVAJAL MD Ot 787.01 NAUSEA WITH VOMITING 07/19/2018 ENEDINA CARVAJAL MD Ot V44.1 GASTROSTOMY STATUS 07/19/2018 KENNEY BENITEZ DO Ot 936 FB IN INTESTINE COLON 07/19/2018 KENNEY BENITEZ DO Ot E915 FB ENTERING OTH ORIFICE 07/19/2018 KENNEY BENITEZ DO Ot 938 FOREIGN BODY GI NOS 07/19/2018 KENNEY BENITEZ DO Ot E915 FB ENTERING OTH ORIFICE 07/19/2018 MARY EM MD Ot 789.00 ABDOMINAL PAIN, UNSPECIFIED SITE 07/19/2018 Ot 388.60 OTORRHEA NOS 07/19/2018 MARY EM MD Ot 789.00 ABDOMINAL PAIN, UNSPECIFIED SITE 07/19/2018 MARY EM MD Ot 780.60 FEVER, UNSPECIFIED 07/19/2018 JULITO NELSON MD Ot 733.00 OSTEOPOROSIS NOS 07/19/2018 JULITO NELSON MD Ot 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 07/19/2018 JULITO NELSON MD Ot 758.0 DOWN'S SYNDROME 07/19/2018 MARY EM MD Ot 276.8 HYPOPOTASSEMIA 07/19/2018 MARY EM MD Ot 288.00 NEUTROPENIA, UNSPECIFIED 07/19/2018 MARY EM MD Ot 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 07/19/2018 MARY EM MD Ot 780.39 OTHER CONVULSIONS 07/19/2018 MARY EM MD Ot 788.1 DYSURIA 07/19/2018 LEE ALVAREZ MD Ot V72.84 EXAM PRE-OPERATIVE NOS 07/19/2018 MARY EM MD Ot 788.1 DYSURIA 07/19/2018 MARY EM MD Ot 788.1 DYSURIA 07/19/2018 LEE ALVAREZ MD Ot 345.90 EPILEPSY UNSPEC W/O MENTION INTRACTABLE 07/19/2018 LEE ALVAREZ MD Ot 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 07/19/2018 LEE ALVAREZ MD Ot 787.20 DYSPHAGIA, UNSPECIFIED 07/19/2018 LEE ALVAREZ MD Ot V58.69 OT MED,LT,CURRENT USE 07/19/2018 MARY EM MD Ot R50.9 FEVER, UNSPECIFIED 07/19/2018 MARY EM MD Ot R56.9 UNSPECIFIED CONVULSIONS 07/19/2018 MARY EM MD Ot N39.0 URINARY TRACT INFECTION, SITE NOT SPECIF 07/19/2018 MARY EM MD J Ot R30.0 DYSURIA 07/19/2018 MANAV TORRES, MARY Schilling Ot N20.0 CALCULUS OF KIDNEY 07/19/2018 Ot K92.0 HEMATEMESIS 07/19/2018 Ot Z53.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 SEE 07/19/2018 SAIRA SANJIV N CORPORATE STATISTICAL FINANCIAL ANALYST Ot R10.84 GENERALIZED ABDOMINAL PAIN 07/19/2018 SAIRA SANJIV N CORPORATE STATISTICAL FINANCIAL ANALYST Ot R30.0 DYSURIA 07/19/2018 SAIRA SANJIV N CORPORATE STATISTICAL FINANCIAL ANALYST Ot R53.83 OTHER FATIGUE 07/19/2018 SAIRA SANJIV N CORPORATE STATISTICAL FINANCIAL ANALYST Ot R30.0 DYSURIA 07/19/2018 SAIRA SANJIV N CORPORATE STATISTICAL FINANCIAL ANALYST Ot R33.9 RETENTION OF URINE, UNSPECIFIED 07/19/2018 SAIRA SANJIV N CORPORATE STATISTICAL FINANCIAL ANALYST Ot N39.0 URINARY TRACT INFECTION, SITE NOT SPECIF 07/19/2018 SAIRA SANJIV N CORPORATE STATISTICAL FINANCIAL ANALYST Ot R21 RASH AND OTHER NONSPECIFIC SKIN ERUPTION 07/19/2018 KIM TORRES, LEE Ot Z01.818 ENCOUNTER FOR OTHER PREPROCEDURAL EXAMIN 07/19/2018 YOVANYNDER , KEILY S Ot M79.672 PAIN IN LEFT FOOT 07/19/2018 YOVANYNDER DO, KEILY S Ot M79.89 OTHER SPECIFIED SOFT TISSUE DISORDERS 07/19/2018 YOVANYNDER DO, KEILY S Ot N39.0 URINARY TRACT INFECTION, SITE NOT SPECIF 07/19/2018 YOVANYNDER RENE HURLEYKEILY S Ot R10.9 UNSPECIFIED ABDOMINAL PAIN 07/19/2018 YOVANYNDOFELIA HURLEY KEILY S Ot R50.9 FEVER, UNSPECIFIED 07/19/2018 YOVANYNDER DO, KEILY S Ot R32 UNSPECIFIED URINARY INCONTINENCE 07/19/2018 YOVANYNDER DO KEILY S Ot R35.8 OTHER POLYURIA 07/19/2018 YOVANYNDER DO KEILY S Ot J30.9 ALLERGIC RHINITIS, UNSPECIFIED 07/19/2018 YOVANYNDER DO KEILY S Ot K59.00 CONSTIPATION, UNSPECIFIED 07/19/2018 KYRA LIPSCOMB Ot K22.9 DISEASE OF ESOPHAGUS, UNSPECIFIED 07/19/2018 KYRA LIPSCOMB Ot Z93.1 GASTROSTOMY STATUS 07/19/2018 ORENDER DO, KEILY S Ot R42 DIZZINESS AND GIDDINESS 07/19/2018 ORENDER DO, KEILY S Ot R93.0 ABNORMAL FINDINGS ON DX IMAGING OF SKULL 07/19/2018 ORENDER DO, KEILY S Ot R11.10 VOMITING, UNSPECIFIED 07/19/2018 ORENDER DO, KEILY S Ot R42 DIZZINESS AND GIDDINESS 07/19/2018 ORENDER DO, KEILY S Ot R10.84 GENERALIZED ABDOMINAL PAIN 07/19/2018 ORENDER DO, KEILY S Ot R50.9 FEVER, UNSPECIFIED 07/19/2018 REKHA TORRES, CECILIO Hodges Ot N20.0 CALCULUS OF KIDNEY 07/19/2018 CECILIO DA SILVA MD Ot N28.1 CYST OF KIDNEY, ACQUIRED 07/19/2018 CECILIO DA SILVA MD Ot Z93.1 GASTROSTOMY STATUS 07/19/2018 VERITO BECERRA APRN Ot J30.89 OTHER ALLERGIC RHINITIS 07/20/2018 MANAV TORRES, MARY Schilling Ot 788.1 DYSURIA 07/20/2018 MANAV TORRES, MARY Schilling Ot 593.89 RENAL URETERAL DIS NEC 07/20/2018 MANAV TORRES, MARY Schilling Ot 787.01 NAUSEA WITH VOMITING 07/20/2018 MANAV TORRES, MARY Schilling Ot 788.1 DYSURIA 07/20/2018 MANAV TORRES, MARY Schilling Ot 788.1 DYSURIA 07/20/2018 MANAV TORRES, MARY Schilling Ot 787.91 DIARRHEA 07/20/2018 WEI TORRES, ENEDINA Ny Ot 577.0 ACUTE PANCREATITIS 07/20/2018 ENEDINA CARVAJAL MD Ot 592.0 CALCULUS OF KIDNEY 07/20/2018 MARY EM MD Ot 599.0 URIN TRACT INFECTION NOS 07/20/2018 ENEDINA CARVAJAL MD Ot 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 07/20/2018 ENEDINA CARVAJAL MD Ot 530.81 ESOPHAGEAL REFLUX 07/20/2018 ENEDINA CARVAJAL MD Ot 787.03 VOMITING ALONE 07/20/2018 ENEDINA CARVAJAL MD Ot V44.1 GASTROSTOMY STATUS 07/20/2018 MANAV TORRES, MARY Schliling Ot 789.00 ABDOMINAL PAIN, UNSPECIFIED SITE 07/20/2018 Ot 783.5 POLYDIPSIA 07/20/2018 MANAV TORRES, MARY Schilling Ot 593.2 CYST OF KIDNEY, ACQUIRED 07/20/2018 MANAV TORRES, MARY Shcilling Ot 787.01 NAUSEA WITH VOMITING 07/20/2018 MANAV TORRES, MARY Schilling Ot 788.30 UNSPECIFIED URINARY INCONTINENCE 07/20/2018 WEI TORRES, ENEDINA Ny Ot 787.01 NAUSEA WITH VOMITING 07/20/2018 WEI TORRES, ENEDINA Ny Ot V44.1 GASTROSTOMY STATUS 07/20/2018 KENNEY BENITEZ DO Ot 936 FB IN INTESTINE COLON 07/20/2018 KENNEY BENITEZ DO Ot E915 FB ENTERING OTH ORIFICE 07/20/2018 KENNEY BENITEZ DO Ot 938 FOREIGN BODY GI NOS 07/20/2018 KENNEY BENITEZ DO Ot E915 FB ENTERING OTH ORIFICE 07/20/2018 MANAV TORRES, MARY Schilling Ot 789.00 ABDOMINAL PAIN, UNSPECIFIED SITE 07/20/2018 Ot 388.60 OTORRHEA NOS 07/20/2018 MARY EM MD Ot 789.00 ABDOMINAL PAIN, UNSPECIFIED SITE 07/20/2018 MANAV TORRES, MARY Schilling Ot 780.60 FEVER, UNSPECIFIED 07/20/2018 JULITO NELSON MD Ot 733.00 OSTEOPOROSIS NOS 07/20/2018 JULITO NELSON MD Ot 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 07/20/2018 JULITO NELSON MD Ot 758.0 DOWN'S SYNDROME 07/20/2018 MARY EM MD Ot 276.8 HYPOPOTASSEMIA 07/20/2018 MARY EM MD Ot 288.00 NEUTROPENIA, UNSPECIFIED 07/20/2018 MARY EM MD Ot 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 07/20/2018 MARY EM MD Ot 780.39 OTHER CONVULSIONS 07/20/2018 MARY EM MD Ot 788.1 DYSURIA 07/20/2018 LEE ALVAREZ MD Ot V72.84 EXAM PRE-OPERATIVE NOS 07/20/2018 MANAV TORRES, MARY Schilling Ot 788.1 DYSURIA 07/20/2018 MARY EM MD Ot 788.1 DYSURIA 07/20/2018 LEE ALVAREZ MD Ot 345.90 EPILEPSY UNSPEC W/O MENTION INTRACTABLE 07/20/2018 LEE ALVAREZ MD Ot 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 07/20/2018 LEE ALVAREZ MD Ot 787.20 DYSPHAGIA, UNSPECIFIED 07/20/2018 LEE ALVAREZ MD, Ot V58.69 OTH MED,LT,CURRENT USE 07/20/2018 MARY EM MD Ot R50.9 FEVER, UNSPECIFIED 07/20/2018 MARY EM MD Ot R56.9 UNSPECIFIED CONVULSIONS 07/20/2018 MARY EM MD Ot N39.0 URINARY TRACT INFECTION, SITE NOT SPECIF 07/20/2018 MARY EM MD Ot R30.0 DYSURIA 07/20/2018 MARY EM MD Ot N20.0 CALCULUS OF KIDNEY 07/20/2018 Ot K92.0 HEMATEMESIS 07/20/2018 Ot Z53.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 SEE 07/20/2018 SANJIV CHÁVEZ APRN Ot R10.84 GENERALIZED ABDOMINAL PAIN 07/20/2018 SANJIV CHÁVEZ APRN Ot R30.0 DYSURIA 07/20/2018 SANJIV CHÁVEZ APRN Ot R53.83 OTHER FATIGUE 07/20/2018 SANJIV CHÁVEZ CORPORATE STATISTICAL FINANCIAL ANALYST Ot R30.0 DYSURIA 07/20/2018 SANJIV CHÁVEZ APRN Ot R33.9 RETENTION OF URINE, UNSPECIFIED 07/20/2018 SANJIV CHÁVEZ APRN Ot N39.0 URINARY TRACT INFECTION, SITE NOT SPECIF 07/20/2018 SANJIV CHÁVEZ APRN Ot R21 RASH AND OTHER NONSPECIFIC SKIN ERUPTION 07/20/2018 LEE ALVAREZ MD Ot Z01.818 ENCOUNTER FOR OTHER PREPROCEDURAL EXAMIN 07/20/2018 KEILY ARANGO DO Ot M79.672 PAIN IN LEFT FOOT 07/20/2018 YOVANYNDER , KEILY S Ot M79.89 OTHER SPECIFIED SOFT TISSUE DISORDERS 07/20/2018 YOVANYNDER DO, KEILY S Ot N39.0 URINARY TRACT INFECTION, SITE NOT SPECIF 07/20/2018 YOVANYNDER DO, KEILY S Ot R10.9 UNSPECIFIED ABDOMINAL PAIN 07/20/2018 YOVANYNDER DO, KEILY S Ot R50.9 FEVER, UNSPECIFIED 07/20/2018 ORENDER DO, KEILY S Ot R32 UNSPECIFIED URINARY INCONTINENCE 07/20/2018 YOVANYNDER DO, KEILY S Ot R35.8 OTHER POLYURIA 07/20/2018 YOVANYNDER DO, KEILY S Ot J30.9 ALLERGIC RHINITIS, UNSPECIFIED 07/20/2018 YOVANYNDER DO, KEILY S Ot K59.00 CONSTIPATION, UNSPECIFIED 07/20/2018 KYRA LIPSCOMB Ot K22.9 DISEASE OF ESOPHAGUS, UNSPECIFIED 07/20/2018 KYRA LIPSCOMB Ot Z93.1 GASTROSTOMY STATUS 07/20/2018 YOVANYNDER DO, KEILY S Ot R42 DIZZINESS AND GIDDINESS 07/20/2018 YOVANYNDER DO, KEILY S Ot R93.0 ABNORMAL FINDINGS ON DX IMAGING OF SKULL 07/20/2018 YOVANYNDER , KEILY S Ot R11.10 VOMITING, UNSPECIFIED 07/20/2018 ORENDER DO, KEILY S Ot R42 DIZZINESS AND GIDDINESS 07/20/2018 YOVANYNDER DO, KEILY S Ot R10.84 GENERALIZED ABDOMINAL PAIN 07/20/2018 YOVANYNDER DO, KEILY S Ot R50.9 FEVER, UNSPECIFIED 07/20/2018 CECILIO DA SILVA MD Ot N20.0 CALCULUS OF KIDNEY 07/20/2018 CECILIO DA SILVA MD Ot N28.1 CYST OF KIDNEY, ACQUIRED 07/20/2018 CECILIO DA SILVA MD Ot Z93.1 GASTROSTOMY STATUS 07/20/2018 VERITO BECERRA APRN Ot J30.89 OTHER ALLERGIC RHINITIS Procedures Code Description Performed By Performed On 38.93 04/24/2012 45.16 ESOPHAGOGASTRODUODENOSCOPY [ EGD] W/CLOSE 04/04/2013 43.11 PERCUTANEOUS [ENDOSCOPIC] GASTROSTOMY [PEG] 01/15/2014 45.13 OTHER ENDOSCOPY OF SM INTEST 01/15/2014 51.23 LAPAROSCOPIC CHOLECYSTECTOMY 01/15/2014 [id number] OFFICE OR OTHER OUTPATIENT VISIT FOR THE EVALUATION AND MANAGEMENT OF ANEW PATIENT, WHICH REQUIRES CECILIO TIDWELL MD 10/08/2016 [id number] OFFICE OR OTHER OUTPATIENT VISIT FOR THE EVALUATION AND MANAGEMENT OF ANESTABLISHED PATIENT, WHICH CECILIO ACEVEDO MD 09/28/2017 [id number] OFFICE OR OTHER OUTPATIENT VISIT FOR THE EVALUATION AND MANAGEMENT OF ANESTABLISHED PATIENT, WHICH CECILIO ACEVEDO MD 10/08/2017 Results Test Result Range GLUCOSE (POC) - [...] Urine pH measurement by test strip 6 5-9 Specific gravity of urine by test strip 1.020 1.016- 1.022 Urine protein assay by test strip, semi-quantitative [...] 10:40 Blood leukocytes automated count (number/volume) 4.5 10*3/uL 4.3-11.0 Blood erythrocytes automated count (number/volume) 4.43 10*6/uL 4.35-5.85 Venous blood hemoglobin measurement (mass/volume) 14.0 [...] Automated blood platelet mean volume measurement 9.1 [foz_us] 7.4-10.4 Automated blood neutrophils/100 leukocytes 36 % [...] Serum or plasma sodium measurement (moles/volume) 139 mmol/L 135-145 Serum or plasma potassium measurement (moles/volume) 3.3 mmol/L 3.6-5.0 Serum or plasma chloride measurement (moles/volume) 107 mmol/L 98-107 Carbon dioxide 21 mmol/L 21-32 Serum or plasma anion gap determination (moles/volume) 11 mmol/L 5-14 Serum or plasma urea nitrogen measurement (mass/volume) 13 mg/dL 7-18 Serum or plasma creatinine measurement (mass/volume) 0.64 mg/dL 0.60-1.30 Serum or plasma urea nitrogen/creatinine mass [...] Urine pH measurement by test strip 6 5-9 Specific gravity of urine by test strip 1.025 1.016- 1.022 Urine protein assay by test strip, semi-quantitative [...] culture - 03/19/16 11:45 Bacterial urine culture [id number] NRG COLONY COUNT 10,000/ML - 100,000/ML NRG Complete blood count (CBC) with automated white blood cell (WBC) differential - 03/27/16 12:00 Blood leukocytes automated count (number/volume) 4.6 10*3/uL 4.3-11.0 Blood erythrocytes automated count (number/volume) 4.47 10*6/uL 4.35-5.85 Venous blood hemoglobin measurement (mass/volume) 14.2 [...] Automated blood platelet mean volume measurement 8.7 [foz_us] 7.4-10.4 Automated blood neutrophils/100 leukocytes 40 % [...] 15:25 Blood leukocytes automated count (number/volume) 9.5 10*3/uL 4.3-11.0 Blood erythrocytes automated count (number/volume) 4.56 10*6/uL 4.35-5.85 Venous blood hemoglobin measurement (mass/volume) 14.4 [...] Automated blood platelet mean volume measurement 9.1 [foz_us] 7.4-10.4 Automated blood neutrophils/100 leukocytes 78 % [...] Urine pH measurement by test strip 6.5 5-9 Specific gravity of urine by test strip 1.015 1.016- 1.022 Urine protein assay by test strip, semi-quantitative [...] sediment by light microscopy MOD RICHARD URATES [facility] Comprehensive metabolic panel - 08/09/16 15:25 Serum or plasma sodium measurement (moles/volume) 137 mmol/L 135-145 Serum or plasma potassium measurement (moles/volume) 3.4 mmol/L 3.6-5.0 Serum or plasma chloride measurement (moles/volume) 106 mmol/L 98-107 Carbon dioxide 15 mmol/L 21-32 Serum or plasma anion gap determination (moles/volume) 16 mmol/L 5-14 Serum or plasma urea nitrogen measurement (mass/volume) 13 mg/dL 7-18 Serum or plasma creatinine measurement (mass/volume) 0.63 mg/dL 0.60-1.30 Serum or plasma urea nitrogen/creatinine mass [...] measurement (mass/volume) 4.1 g/dL 3.2-4.5 Lipase - 08/09/16 15:25 Lipase 145 U/L 8-78 Comprehensive metabolic panel - 08/11/16 13:50 Serum or plasma sodium measurement (moles/volume) 140 mmol/L 135-145 Serum or plasma potassium measurement (moles/volume) 3.2 mmol/L 3.6-5.0 Serum or plasma chloride measurement (moles/volume) 106 mmol/L 98-107 Carbon dioxide 28 mmol/L 21-32 Serum or plasma anion gap determination (moles/volume) 6 mmol/L 5-14 Serum or plasma urea nitrogen measurement (mass/volume) 12 mg/dL 7-18 Serum or plasma creatinine measurement (mass/volume) 0.66 mg/dL 0.60-1.30 Serum or plasma urea nitrogen/creatinine mass [...] or plasma amylase measurement (enzymatic activity/volume) 94 U /L 25-125 Lipase - 08/11/16 13:50 Lipase 65 U/L 8-78 Automated blood complete blood count (hemogram) panel - 08/11/16 13:56 Blood leukocytes automated count (number/volume) 4.0 10*3/uL 4.3-11.0 Blood erythrocytes automated count (number/volume) 4.43 10*6/uL 4.35-5.85 Venous blood hemoglobin measurement (mass/volume) 13.8 [...] Automated blood platelet mean volume measurement 8.6 [foz_us] 7.4-10.4 Influenza virus A and B antigen detection - 08/11/16 13:56 FLU RESULT NEGATIVE FOR INFLUENZA A AND B ANTIGENS BY IA NRG Complete urinalysis with reflex to culture - 09/08/16 09:00 Urine color determination YELLOW NRG Urine clarity determination CLEAR NRG Urine pH measurement by test strip 6.5 5-9 Specific gravity of urine by test strip 1.015 1.016- 1.022 Urine protein assay by test strip, semi-quantitative [...] culture - 09/08/16 09:00 Bacterial urine culture [id number] NRG COLONY COUNT 10,000/ML - 100,000/ML NRG FTX;REPORTABLE SENSITIVITY REPORTED 09/10/16 10:45 NRG Bacterial susceptibility panel - 09/08/16 09:00 Oxacillin susceptibility test by minimum inhibitory concentration > = NRG Gentamicin susceptibility test by minimum inhibitory concentration < = NRG Trimethoprim/sulfamethoxazole susceptibility test by minimum inhibitoryconcentration [...] 14:10 Blood leukocytes automated count (number/volume) 10.3 10*3/uL 4.3-11.0 Blood erythrocytes automated count (number/volume) 4.46 10*6/uL 4.35-5.85 Venous blood hemoglobin measurement (mass/volume) 14.0 [...] Automated blood platelet mean volume measurement 8.5 [foz_us] 7.4-10.4 Automated blood neutrophils/100 leukocytes 75 % [...] Urine pH measurement by test strip 6 5-9 Specific gravity of urine by test strip 1.025 1.016- 1.022 Urine protein assay by test strip, semi-quantitative [...] urinalysis with reflex to culture NO NRG Automated blood complete blood count (hemogram) panel - 03/01/17 12:11 Blood leukocytes automated count (number/volume) 4.1 10*3/uL 4.3-11.0 Blood erythrocytes automated count (number/volume) 4.39 10*6/uL 4.35-5.85 Venous blood hemoglobin measurement (mass/volume) 13.7 g/dL 11.5-16.0 Blood hematocrit (volume fraction) 42 % 35-52 Automated erythrocyte mean corpuscular volume 96 [foz_us] 80-99 Automated erythrocyte mean corpuscular hemoglobin (mass per erythrocyte) 31 pg 25-34 Automated erythrocyte mean corpuscular hemoglobin concentration measurement ( mass/volume) 33 g/dL 32-36 Automated erythrocyte distribution width ratio 13.0 % 10.0-14.5 Automated blood platelet count (count/volume) 257 10*3/uL 130-400 Automated blood platelet mean volume measurement 9.1 [foz_us] 7.4-10.4 Erythrocyte sedimentation rate by westergren method - 03/01/17 12:11 Erythrocyte sedimentation rate by westergren method 8 mm 0-20 Complete urinalysis with reflex to culture - 03/01/17 12:45 Urine color determination YELLOW NRG Urine clarity determination CLEAR NRG Urine pH measurement by test strip 8 5-9 Specific gravity of urine by test strip 1.010 1.016- 1.022 Urine protein assay by test strip, semi-quantitative NEGATIVE NEGATIVE Urine glucose detection by automated test [...] count by microscopy (number/high power field ) NONE NRG Bacteria detection in urine sediment by light microscopy NEGATIVE NRG Squamous epithelial cells detection in urine sediment by light microscopy RARE NRG Crystals detection in urine sediment by light microscopy NONE NRG Casts detection in urine sediment by light microscopy NONE NRG Mucus detection in urine sediment by light microscopy NEGATIVE NRG Complete urinalysis with reflex to culture NO NRG Amorphous sediment detection in urine sediment by light microscopy MOD RICHARD PHOSPHATE NRG Complete urinalysis with reflex to culture - 08/03/17 10:35 Urine color determination YELLOW NRG Urine clarity determination CLEAR NRG Urine pH measurement by test strip 7 5-9 Specific gravity of urine by test strip 1.015 1.016- 1.022 Urine protein assay by test strip, semi-quantitative 1+ NEGATIVE Urine glucose detection by automated test strip NEGATIVE NEGATIVE Erythrocytes detection in urine sediment by light microscopy NEGATIVE NEGATIVE Urine ketones detection by automated test strip NEGATIVE NEGATIVE Urine nitrite detection by test strip POSITIVE NEGATIVE Urine total bilirubin detection by test strip NEGATIVE NEGATIVE Urine urobilinogen measurement by automated test strip (mass/volume) 1 mg/dL NORMAL Urine leukocyte esterase detection by dipstick [...] culture NO NRG Bacterial urine culture - 08/03/17 10:35 Bacterial urine culture NG NRG Complete urinalysis with reflex to culture - 01/04/18 11:10 Urine color determination YELLOW NRG Urine clarity determination CLEAR NRG Urine pH measurement by test strip 8 5-9 Specific gravity of urine by test strip 1.015 1.016- 1.022 Urine protein assay by test strip, semi-quantitative [...] urine sediment by light microscopy NEGATIVE NRG Squamous epithelial cells detection in urine sediment by light microscopy NONE NRG Crystals detection in urine sediment by light microscopy NONE NRG Casts detection in urine sediment by light microscopy NONE NRG Mucus detection in urine sediment by light microscopy NEGATIVE NRG Complete urinalysis with reflex to culture NO NRG Amorphous sediment detection in urine sediment by light microscopy MOD RICHARD PHOSPHATE NRG Complete blood count (CBC) with automated white blood cell (WBC) differential - 07/15/18 18:16 Blood leukocytes automated count (number/volume) 9.6 10*3/uL 4.3-11.0 Blood erythrocytes automated count (number/volume) 4.47 10*6/uL 4.35-5.85 Venous blood hemoglobin measurement (mass/volume) 13.2 g/dL 11.5-16.0 Blood hematocrit (volume fraction) 40 % 35-52 Automated erythrocyte mean corpuscular volume 89 [foz_us] 80-99 Automated erythrocyte mean corpuscular hemoglobin (mass per erythrocyte) 30 pg 25-34 Automated erythrocyte mean corpuscular hemoglobin concentration measurement ( mass/volume) 33 g/dL 32-36 Automated erythrocyte distribution width ratio 14.1 % 10.0-14.5 Automated blood platelet count (count/volume) 270 10*3/uL 130-400 Automated blood platelet mean volume measurement 9.6 [foz_us] 7.4-10.4 Automated blood neutrophils/100 leukocytes 87 % 42-75 Automated blood lymphocytes/100 leukocytes 6 % 12-44 Blood monocytes/100 leukocytes 7 % 0-12 Automated blood eosinophils/100 leukocytes 0 % 0-10 Automated blood basophils/100 leukocytes 0 % 0-10 Blood neutrophils automated count (number/volume) 8.3 10*3 1.8-7.8 Blood lymphocytes automated count (number/volume) 0.6 10*3 1.0-4.0 Blood monocytes automated count (number/volume) 0.7 10*3 0.0-1.0 Automated eosinophil count 0.0 10*3/uL 0.0-0.3 Automated blood basophil count (count/volume) 0.0 10*3/uL 0.0-0.1 Complete urinalysis with reflex to culture - 07/15/18 18:16 Urine color determination AI NRG Urine clarity determination SLIGHTLY CLOUDY NRG Urine pH measurement by test strip 7 5-9 Specific gravity of urine by test strip 1.015 1.016- 1.022 Urine protein assay by test strip, semi-quantitative 2+ NEGATIVE Urine glucose detection by automated test strip 1+ NEGATIVE Erythrocytes detection in urine sediment by light microscopy NEGATIVE NEGATIVE Urine ketones detection by automated test strip 3+ NEGATIVE Urine nitrite detection by test strip POSITIVE NEGATIVE Urine total bilirubin detection by test strip 2+ NEGATIVE Urine urobilinogen measurement by automated test strip (mass/volume) 8 mg/dL NORMAL Urine leukocyte esterase detection by dipstick 2+ NEGATIVE Automated urine sediment erythrocyte count by microscopy (number/high power field) NONE NRG Automated urine sediment leukocyte count by microscopy (number/high power field ) [HPF] NRG Bacteria detection in urine sediment by light microscopy TRACE NRG Squamous epithelial cells detection in urine sediment by light microscopy RARE NRG Crystals detection in urine sediment by light microscopy NONE NRG Casts detection in urine sediment by light microscopy NONE NRG Mucus detection in urine sediment by light microscopy NEGATIVE NRG Complete urinalysis with reflex to culture NO NRG Amorphous sediment detection in urine sediment by light microscopy MOD RICHARD URATES NRG Comprehensive metabolic panel - 07/15/18 18:16 Serum or plasma sodium measurement (moles/volume) 141 mmol/L 135-145 Serum or plasma potassium measurement (moles/volume) 3.3 mmol/L 3.6-5.0 Serum or plasma chloride measurement (moles/volume) 107 mmol/L 98-107 Carbon dioxide 21 mmol/L 21-32 Serum or plasma anion gap determination (moles/volume) 13 mmol/L 5-14 Serum or plasma urea nitrogen measurement (mass/volume) 14 mg/dL 7-18 Serum or plasma creatinine measurement (mass/volume) 0.63 mg/dL 0.60-1.30 Serum or plasma urea nitrogen/creatinine mass ratio 22 NRG Serum or plasma creatinine measurement with calculation of estimated glomerular filtration rate > NRG Serum or plasma glucose measurement (mass/volume) 105 mg/dL 70-105 Serum or plasma calcium measurement (mass/volume) 8.8 mg/dL 8.5-10.1 Serum or plasma total bilirubin measurement (mass/volume) 0.2 mg/dL 0.1-1.0 Serum or plasma alkaline phosphatase measurement (enzymatic activity/volume) 73 U/L 40-136 Serum or plasma aspartate aminotransferase measurement (enzymatic activity/ volume) 24 U/L 5-34 Serum or plasma alanine aminotransferase measurement (enzymatic activity/volume ) 18 U/L 0-55 Serum or plasma protein measurement (mass/volume) 7.3 g/dL 6.4-8.2 Serum or plasma albumin measurement (mass/volume) 4.5 g/dL 3.2-4.5 CALCIUM CORRECTED 8.4 mg/dL 8.5-10.1 Blood manual differential performed detection - 07/15/18 18:16 Blood monocytes/100 leukocytes 8 % NRG Manual blood segmented neutrophils/100 leukocytes 85 % NRG Manual blood lymphocytes/100 leukocytes 7 % NRG Blood erythrocyte morphology finding identification NORMAL NRG Encounters ACCT No. Visit Date/Time Discharge Status Pt. Type Provider Facility Loc./Unit Complaint [id number] 04/25/2012 21:48:00 05/23/2012 15:24:00 DIS Inpatient Nicko Redd DO [facility] on Amol J5IM [id number] 04/12/2015 11:23:35 ACT Document Registration [id number] 06/13/2018 15:07:15 06/13/2018 23:59:59 CLS Outpatient Keily Arango [id number] 07/13/2018 05:40:00 07/18/2018 13:01:00 DIS Outpatient LEE ALVAREZ MD [facility] PREOP EGD [id number] 07/15/2018 17:39:00 07/15/2018 21:47:00 DIS Emergency DIANA ONEILL MD [facility] ER VOMITING [id number] 01/04/2018 10:49:00 01/04/2018 11:25:00 DIS Outpatient VERITO BECERRA CORPORATE STATISTICAL FINANCIAL ANALYST Via [facility] ANURIA,FATIGUE, VOMITING [id number] 10/12/2017 10:23:00 10/12/2017 23:59:59 CLS Outpatient VERITO BECERRA CORPORATE STATISTICAL FINANCIAL ANALYST Via [facility] ALLERGY RELIEF [id number] 09/22/2017 12:06:00 09/22/2017 23:59:59 CLS Outpatient CECILIO DA SILVA MD [facility] RAD N20.0 HX OF KIDNEY [id number] 09/14/2017 16:34:00 09/14/2017 17:50:00 DIS Emergency CARLYN DESIR CORPORATE STATISTICAL FINANCIAL ANALYST [facility] ER LEFT FOOT INJ;MULTIPLE SEIZURES [id number] 08/03/2017 10:09:00 08/03/2017 23:59:59 CLS Outpatient KEILY ARANGO DO S [facility] FEBRILE ILLNESS, ABD PAIN [id number] 04/24/2017 13:51:00 04/24/2017 23:59:59 CLS Outpatient BLANCA ARANGO DOLINE S [facility] RAD VERTIGO W/ INTRACTABLE VOMITING [id number] 03/12/2017 09:00:00 03/12/2017 23:59:59 CLS Outpatient KEILY ARANGO DO S [facility] RAD DIZZINESS [id number] 03/01/2017 11:49:00 03/01/2017 23:59:59 CLS Outpatient KYRA LIPSCOMB [facility] RAD VOMITING X 5 DAYS , ABD PAIN, R RENAL CALC [id number] 12/17/2016 12:12:00 12/17/2016 23:59:59 CLS Outpatient BLANCA ARANGO DOLINE S [facility] RAD K59.00 [id number] 11/13/2016 11:30:00 11/13/2016 14:25:00 DIS Outpatient LEE ALVAREZ MD [facility] ENDO NON-FUNCTIONING PEP TUBE [id number] 11/11/2016 05:39:00 11/11/2016 14:19:00 DIS Outpatient LEE ALVAREZ MD [facility] PREOP NON-FUNCTIONING PEG TUBE [id number] 10/22/2016 11:05:00 10/22/2016 23:59:59 CLS Outpatient ANNAER DO KEILY S [facility] ALERGIC RHINITIS [id number] 09/26/2016 13:43:00 09/26/2016 16:30:00 DIS Emergency JULITO NELSON MD [facility] ER VOMITING, POSS KIDNEY STONES [id number] 09/08/2016 08:36:00 09/08/2016 23:59:59 CLS Outpatient LEONOR HURLEY KEILY S [facility] R32,R35-8 [id number] 08/11/2016 13:41:00 08/11/2016 23:59:59 CLS Outpatient YOVANYNDER DO KEILY S [facility] LAB FEBRILE ILLNESS, ABD PAIN [id number] 08/09/2016 14:55:00 08/09/2016 18:30:00 DIS Emergency DINORAH TORRES, BRINA Mcrae [facility] ER VOMITING/UNABLE TO URINATE [id number] 06/22/2016 00:09:00 06/22/2016 23:59:59 CLS Preadmit LEONOR HURLEY KEILY S [facility] UTI [id number] 03/24/2016 11:57:00 06/21/2016 00:01:00 DIS Outpatient YOVANYNDER DO KEILY S [facility] UTI [id number] 05/19/2016 14:09:00 05/19/2016 23:59:59 CLS Outpatient YOVANYNDOFELIA HURLEY KEILY S [facility] RAD LT FOOT PAIN [id number] 04/14/2016 06:34:00 04/14/2016 23:59:59 CLS Outpatient LEE ALVAREZ MD [facility] PREOP NONFUNCTIONING PEG TUBE [id number] 03/27/2016 11:54:00 03/27/2016 23:59:59 CLS Outpatient SANJIV CHÁVEZ CORPORATE STATISTICAL FINANCIAL ANALYST [facility] LAB RASH [id number] 03/20/2016 12:51:00 03/20/2016 23:59:59 CLS Outpatient SANJIV CHÁVEZ CORPORATE STATISTICAL FINANCIAL ANALYST [facility] URINARY TRACK INFECTION [id number] 03/19/2016 11:28:00 03/19/2016 23:59:59 CLS Outpatient SANJIV CHÁVEZ CORPORATE STATISTICAL FINANCIAL ANALYST [facility] DYSUNIA,URINARY RETENTION [id number] 02/24/2016 09:48:00 02/24/2016 23:59:59 CLS Outpatient SANJIV CHÁVEZ CORPORATE STATISTICAL FINANCIAL ANALYST [facility] FATIGUE,GENERALIZED ABD PAIN [id number] 09/21/2015 10:39:00 09/21/2015 23:59:59 CLS Preadmit SANJIV CHÁVEZ CORPORATE STATISTICAL FINANCIAL ANALYST [facility] R OTITIS MEDIA [id number] 07/19/2015 10:06:00 07/19/2015 23:59:59 CLS Outpatient MARY EM MD [facility] RAD ABDOMINAL PAIN - HISTORY OF KIDNEY STONES [id number] 07/18/2015 15:03:00 07/18/2015 23:59:59 CLS Outpatient MARY EM MD [facility] LAB DYSURIA [id number] 06/19/2015 12:14:00 06/19/2015 23:59:59 CLS Outpatient MARY EM MD [facility] URINARY TRACT INFECTION [id number] 04/12/2015 11:21:00 04/12/2015 23:59:59 CLS Outpatient MARY EM MD [facility] LAB FEVER [id number] 04/03/2015 08:30:00 04/03/2015 23:59:59 CLS Outpatient LEE ALVAREZ MD [facility] SDC MALFUNCTIONING GASTROSTOMY TUBE [id number] 02/17/2015 15:18:00 02/17/2015 20:16:00 DIS Emergency NUNO FLORES DO [facility] ER VOMITING [id number] 02/08/2015 11:27:00 02/08/2015 23:59:59 CLS Outpatient MARY EM MD [facility] LAB DYSURIA [id number] 01/15/2015 14:45:00 01/15/2015 23:59:59 CLS Outpatient MARY EM MD [facility] LAB DYSURIA [id number] 01/02/2015 09:33:00 01/02/2015 13:15:00 DIS Outpatient LEE ALVAREZ MD [facility] SDC MALFUNCTIONING TUBE [id number] 01/01/2015 06:40:00 01/01/2015 23:59:59 CLS Outpatient LEE ALVAREZ MD [facility] PREOP MALFUNCTIONING TUBE [id number] 12/31/2014 11:18:00 12/31/2014 23:59:59 CLS Outpatient MARY EM MD [facility] LAB DYSURIA [id number] 11/18/2014 10:21:00 11/18/2014 12:58:00 DIS Emergency JULITO NELSON MD [facility] ER FEVER VOMITING [id number] 10/25/2014 11:30:00 10/25/2014 23:59:59 CLS Outpatient MARY EM MD [facility] HH CEREBRAL PALSY, CONVULSIONS [id number] 09/26/2014 10:46:00 09/26/2014 23:59:59 CLS Outpatient MARY EM MD [facility] LAB NEUTROPENIA, HYPOTALEMIA [id number] 08/11/2014 11:28:00 08/11/2014 23:59:59 CLS Outpatient JULITO NELSON MD [facility] RAD DOWNS SYNDROME/ CONGENITAL [id number] 08/11/2014 09:12:00 08/11/2014 11:52:00 DIS Emergency LESLIE TORRES, JULITO Carr [facility] ER FEVER [id number] 07/23/2014 10:12:00 07/23/2014 23:59:59 CLS Outpatient MARY EM MD [facility] RAD FEVER [id number] 04/06/2014 11:39:00 04/06/2014 23:59:59 CLS Outpatient MARY EM MD [facility] LAB ABD PAIN [id number] 01/03/2014 11:29:00 04/03/2014 00:01:00 DIS Outpatient MARY EM MD [facility] LAB EAR DRAINAGE [id number] 01/11/2014 16:23:00 01/11/2014 23:59:59 CLS Outpatient MARY EM MD [facility] LAB ABD PAIN [id number] 01/09/2014 09:05:00 01/09/2014 23:59:59 CLS Outpatient ENEDINA CARVAJAL MD [facility] CARD NAUSEA VOMITING [id number] 12/29/2013 16:04:00 12/29/2013 23:59:59 CLS Outpatient KENNEY BENITEZ DO [facility] RAD FORIEGN BODY IN BODY PASSAGE [id number] 12/28/2013 18:14:00 12/28/2013 23:59:59 CLS Outpatient KENNEY BENITEZ DO [facility] RAD FOREIGN BODY F/U [id number] 12/24/2013 02:06:00 12/27/2013 15:45:00 DIS Inpatient PRESTON TORRES, DANICA Hunter [facility] SURGICAL GI FOREIGN BODY; NAUSEA + VOMITING [id number] 12/04/2013 09:23:00 12/04/2013 23:59:59 CLS Outpatient MARY EM MD [facility] LAB URINARY INCONTINENCE [id number] 11/06/2013 11:12:00 11/06/2013 23:59:59 CLS Outpatient MARY EM MD [facility] RAD NAUSEA/VOMITING [id number] 10/21/2013 12:27:00 10/21/2013 14:05:00 DIS Emergency RUFUS SIOMN MD [facility] ER UTI [id number] 07/07/2013 11:08:00 10/05/2013 00:01:00 DIS Outpatient MARY EM MD [facility] LAB POLYDIPSIA [id number] 09/19/2013 10:14:00 09/19/2013 23:59:59 CLS Outpatient MARY EM MD [facility] LAB ABD PAIN [id number] 09/05/2013 08:30:00 09/05/2013 23:59:59 CLS Outpatient ENEDINA CARVAJAL MD [facility] RAD REGURGITATION [id number] 08/17/2013 07:31:00 08/17/2013 23:59:59 CLS Outpatient ENEDINA CARVAJAL MD [facility] RAD STONE RISK, PANCREATITIS [id number] 08/08/2013 14:17:00 08/08/2013 23:59:59 CLS Outpatient MARY EM MD [facility] LAB RECURRENT UTI [id number] 08/04/2013 19:31:00 08/04/2013 23:59:59 CLS Outpatient MARY EM MD [facility] LAB DIARRHEA [id number] 07/25/2013 14:41:00 07/25/2013 23:59:59 CLS Outpatient MARY EM MD [facility] LAB DYSURIA [id number] 06/19/2013 10:55:00 06/19/2013 23:59:59 CLS Outpatient MARY EM MD [facility] LAB DYSURIA [id number] 05/28/2013 17:41:00 05/28/2013 19:29:00 DIS Emergency HODAN HERNANDEZ MD [facility] ER LOSS OF APPETITE/ VOMITING [id number] 04/29/2013 15:25:00 04/29/2013 16:44:00 DIS Emergency RUFUS SIMON MD [facility] ER L LEG PAIN [id number] 03/31/2013 19:17:00 04/04/2013 18:55:00 DIS Inpatient MARY EM MD [facility] 4TH ACUTE PANCREATITIS, ASPIRATION PNEUMONIA [id number] 03/07/2013 13:39:00 03/07/2013 23:59:59 CLS Outpatient MARY EM MD [facility] RAD LET RENAL PELVIC ELARGEMENT,VOMITING [id number] 02/03/2013 11:00:00 02/03/2013 23:59:59 CLS Outpatient MARY EM MD [facility] LAB DYSURIA [id number] 12/26/2012 08:27:00 12/26/2012 10:19:00 DIS Emergency RUFUS SIMON MD [facility] ER SEIZURE [id number] 12/20/2012 11:34:00 12/20/2012 23:59:59 CLS Outpatient MARY EM MD [facility] LAB UTI [id number] 11/23/2012 14:00:00 11/23/2012 23:59:59 CLS Outpatient MARY EM MD [facility] RAD HX OF NEPHROLITHIASIS WITH UTI [id number] 11/16/2012 09:51:00 11/16/2012 23:59:59 CLS Outpatient MARY EM MD [facility] LAB RECURRENT INFECTION [id number] 11/01/2012 11:45:00 11/01/2012 23:59:59 CLS Outpatient MARY EM MD [facility] LAB DYSURIA,HX OF MEPHROLITHIASIS [id number] 07/20/2018 10:27:00 ACT Outpatient LEE ALVAREZ MD [facility] ENDO NON FUNCTIONING PEG TUBE [id number] 08/13/2015 07:32:00 Document Registration [id number] 07/23/2014 10:37:00 Document Registration [id number] 07/23/2014 10:37:00 Document Registration [id number] 04/04/2014 00:00:00 Document Registration [id number] 10/06/2013 00:00:00 Document Registration [id number] 12/27/2012 00:00:00 Document Registration [id number] 10/06/2012 00:00:00 Document Registration [id number] 09/27/2012 13:45:00 Document Registration [id number] 09/12/2012 09:08:00 Document Registration [id number] 09/08/2012 15:35:00 Document Registration [id number] 09/08/2012 13:58:00 Document Registration [id number] 08/26/2012 11:05:00 Document Registration [id number] 07/12/2012 14:04:00 Document Registration [id number] 07/07/2012 12:13:00 Document Registration [id number] 07/01/2012 12:44:00 Document Registration [id number] 06/03/2012 11:30:00 Document Registration [id number] 06/01/2012 00:28:00 Document Registration [id number] 04/23/2012 14:00:00 Document Registration [id number] 04/20/2012 05:39:00 Document Registration [id number] 04/19/2012 13:32:00 Document Registration [id number] 04/11/2012 12:36:00 Document Registration [id number] 2012 14:09:00 Document Registration [id number] 2012 09:14:00 Document Registration [id number] 04/05/2012 23:28:00 Document Registration [id number] 04/03/2012 11:54:00 Document Registration [id number] 08/23/2010 13:45:00 Document Registration [id number] 09/28/2017 13:06:00 09/28/2017 23:59:59 CLS Outpatient REKHA TORRES, CECILIO Hodges [id number] 01/15/2014 13:07:00 01/16/2014 17:00:00 DIS Outpatient Fracisco TORRES, [facility] W.FOXA [id number] 12/24/2013 00:00:00 12/24/2013 00:00:00 Tej Amaral DO [facility] [id number]
--- NOTE | 2018-07-21 06:20 | OPERATIVE REPORT ---
DATE OF SERVICE: ATTENDING PRIMARY CARE PHYSICIAN: Dr. Ambrocio. PREPROCEDURE DIAGNOSES: Dysphagia, developmental delay and nonfunctioning gastrostomy tube. POSTPROCEDURE DIAGNOSES: Dysphagia, developmental delay and nonfunctioning gastrostomy tube. PROCEDURE: Removal and replacement of VANESSA-WATERS low profile gastrostomy tube, 20-[place] and 2 cm in length. SURGEON: Lee Alvarez MD. ANESTHESIA: None. ESTIMATED BLOOD LOSS: Minimal. DISPOSITION: The patient tolerated the procedure well. INDICATIONS: The patient is a 28-year-old female known to us. She has had a longstanding history of dysphagia secondary to progressive developmental delay. She has had gastrostomy tubes placed before in the past, which were eventually switched over the low profile gastrostomy tubes. She currently has a VANESSA-WATERS low profile gastrostomy tube, which is 20-[place] in luminal diameter and 2 cm in length. DESCRIPTION OF PROCEDURE: The patient remained on her cart in outpatient endoscopy. The balloon on the previous tube was then decompressed and the tube removed intact. A replacement tube of same size was then placed without any resistance and the balloon insufflated with sterile water without any resistance. Good hemostasis was observed. The patient tolerated the procedure well. The tube may be accessed and used at any time. Job ID: [id number] DocumentID: [id number] Dictated Date: 07/20/2018 12:03:18 Pool Table Operator Date: 07/20/2018 16:00:19 Dictated By: LEE ALVAREZ MD
== END | disposition home or self-care (01) ==
LOC: ENDO 10:27
PROVIDERS: ATTEND Surgery
DX: K94.23 Gastrostomy malfunction (principal); R13.10 Dysphagia, unspecified; R62.50 Unspecified lack of expected normal physiological development in childhood; R56.9 Unspecified convulsions; Z79.899 Other long term (current) drug therapy; Z87.442 Personal history of urinary calculi; Z99.3 Dependence on wheelchair; Z87.11 Personal history of peptic ulcer disease

== ENCOUNTER → 2018-11-24 | Outpatient (CLI) | payer MEDICAID ==
[~2018-11-24] VITALS: Ht 142.2 cm; Wt 41.3 kg
[2018-11-24 13:54] LABS: BILIRUBIN,URINE NEGATIVE (NEGATIVE); CLARITY,URINE CLEAR; COLOR,URINE YELLOW; GLUCOSE, URINE (UA) NEGATIVE (NEGATIVE); KETONES,URINE NEGATIVE (NEGATIVE); LEUKOCYTE ESTERASE ,URINE 1+ (NEGATIVE); NITRITE,URINE NEGATIVE (NEGATIVE); PH,URINE 6.5 (5-9); PROTEIN,URINE 1+ (NEGATIVE); UROBILINOGEN,URINE NORMAL (NORMAL)
[2018-11-24 14:01] LABS: AMORPHOUS SEDIMENT,UR FEW AMOR URATES /LPF; BACTERIA,URINE NEGATIVE /HPF
[2018-11-24 15:51] VITALS: BP 133/97
== END ==
LOC: SDC 13:10
PROVIDERS: ATTEND Family Medicine
DX: R41.82 Altered mental status, unspecified (principal); Z87.440 Personal history of urinary (tract) infections
CPT/HCPCS: 81000

== ENCOUNTER → 2018-11-25 | Outpatient (CLI) | payer MEDICAID ==
[2018-11-25 10:27] LABS: BASOPHILS % (AUTO) 0 % (0-10); EOSINOPHILS # (AUTO) 0.2 10^3/uL (0.0-0.3); EOSINOPHILS % (AUTO) 4 % (0-10); HEMATOCRIT 44 % (35-52); HEMOGLOBIN 14.8 G/DL (11.5-16.0); LYMPHOCYTES # (AUTO) 1.5 X 10^3 (1.0-4.0); LYMPHOCYTES % (AUTO) 41 % (12-44); MEAN CORPUSCULAR HEMOGLOBIN 32 PG (25-34); MEAN CORPUSCULAR HGB CONC 34 G/DL (32-36); MEAN CORPUSCULAR VOLUME 94 FL (80-99); MEAN PLATELET VOLUME 9.3 FL (7.4-10.4); MONOCYTES # (AUTO) 0.6 X 10^3 (0.0-1.0); MONOCYTES % (AUTO) 15 % (0-12); NEUTROPHILS # (AUTO) 1.5 X 10^3 (1.8-7.8); NEUTROPHILS % (AUTO) 40 % (42-75); PLATELET COUNT 236 10^3/uL (130-400); RED CELL DISTRIBUTION WIDTH 13.4 % (10.0-14.5); WHITE BLOOD COUNT 3.7 10^3/uL (4.3-11.0)
[2018-11-25 10:52] LABS: ALANINE AMINOTRANSFERASE 26 U/L (0-55); ALBUMIN 4.4 GM/DL (3.2-4.5); ALKALINE PHOSPHATASE 58 U/L (40-136); BILIRUBIN,TOTAL 0.3 MG/DL (0.1-1.0); BUN/CREATININE RATIO 22; CALCIUM 9.7 MG/DL (8.5-10.1); CARBON DIOXIDE 18 MMOL/L (21-32); CHLORIDE 111 MMOL/L (98-107); CREATININE SERUM 0.74 MG/DL (0.60-1.30); GFR ESTIMATED > 60; GLUCOSE 91 MG/DL (70-105); POTASSIUM 4.3 MMOL/L (3.6-5.0); SODIUM 139 MMOL/L (135-145); TOTAL PROTEIN 7.5 GM/DL (6.4-8.2)
[2018-11-25 10:54] LABS: ERYTHROCYTE SEDIMENTATION RATE 8 MM/HR (0-20)
== END ==
LOC: LAB 10:02
PROVIDERS: ATTEND Nurse Practitioner Family
DX: R33.9 Retention of urine, unspecified (principal); G80.9 Cerebral palsy, unspecified
CPT/HCPCS: 36415; 80053; 85025; 85652

== ENCOUNTER → 2019-02-17 | Outpatient (CLI) | payer MEDICAID ==
[~2019-02-17] VITALS: Ht 142.2 cm; Wt 41.3 kg
[~2019-02-17] MED LIST changes: +RANI-613 PO; -RANI150T46 PO
[2019-02-17 14:10] VITALS: BP 134/93
[2019-02-17 14:16] LABS: BILIRUBIN,URINE NEGATIVE (NEGATIVE); CLARITY,URINE CLEAR; COLOR,URINE YELLOW; GLUCOSE, URINE (UA) NEGATIVE (NEGATIVE); KETONES,URINE NEGATIVE (NEGATIVE); LEUKOCYTE ESTERASE ,URINE 2+ (NEGATIVE); NITRITE,URINE NEGATIVE (NEGATIVE); PH,URINE 6 (5-9); PROTEIN,URINE NEGATIVE (NEGATIVE); UROBILINOGEN,URINE NORMAL (NORMAL)
[2019-02-17 14:22] LABS: BACTERIA,URINE LARGE /HPF; RBC,URINE 0-2 /HPF; SQUAMOUS EPITHELIAL CELL,UR RARE /HPF
== END ==
LOC: SDC 13:45
PROVIDERS: ATTEND Nurse Practitioner Family
DX: Z01.89 Encounter for other specified special examinations (principal); Z87.440 Personal history of urinary (tract) infections
CPT/HCPCS: 81000; 87077; 87088; 87186

== ENCOUNTER 2019-05-03 14:05 | Emergency (ER) | payer MEDICAID ==
[~2019-05-03] VITALS: Ht 120 cm; Wt 41.3 kg
[2019-05-03] MEDS ORDERED: NS IV 1000 ML 1,000 ML IV ONE (14:49)
[2019-05-03] MEDS ORDERED: ONDANSETRON 4 MG/2 ML (SDV) Z0FRAN IVP ONE (15:00)
[2019-05-03 15:43] LABS: BASOPHILS % (AUTO) 0 % (0-10); EOSINOPHILS % (AUTO) 0 % (0-10); HEMATOCRIT 42 % (35-52); HEMOGLOBIN 13.8 G/DL (11.5-16.0); LYMPHOCYTES # (AUTO) 0.7 X 10^3 (1.0-4.0); LYMPHOCYTES % (AUTO) 8 % (12-44); MEAN CORPUSCULAR HEMOGLOBIN 31 PG (25-34); MEAN CORPUSCULAR HGB CONC 33 G/DL (32-36); MEAN CORPUSCULAR VOLUME 94 FL (80-99); MEAN PLATELET VOLUME 8.6 FL (7.4-10.4); MONOCYTES # (AUTO) 0.1 X 10^3 (0.0-1.0); MONOCYTES % (AUTO) 1 % (0-12); NEUTROPHILS # (AUTO) 7.4 X 10^3 (1.8-7.8); NEUTROPHILS % (AUTO) 91 % (42-75); PLATELET COUNT 297 10^3/uL (130-400); RED CELL DISTRIBUTION WIDTH 13.7 % (10.0-14.5); WHITE BLOOD COUNT 8.1 10^3/uL (4.3-11.0)
[2019-05-03 16:04] LABS: ALANINE AMINOTRANSFERASE 21 U/L (0-55); ALBUMIN 4.6 GM/DL (3.2-4.5); ALKALINE PHOSPHATASE 84 U/L (40-136); BILIRUBIN,TOTAL 0.2 MG/DL (0.1-1.0); BUN/CREATININE RATIO 22; CARBON DIOXIDE 24 MMOL/L (21-32); CHLORIDE 107 MMOL/L (98-107); CREATININE SERUM 0.69 MG/DL (0.60-1.30); GFR ESTIMATED > 60; GLUCOSE 194 MG/DL (70-105); POTASSIUM 3.4 MMOL/L (3.6-5.0); SODIUM 142 MMOL/L (135-145); TOTAL PROTEIN 7.4 GM/DL (6.4-8.2)
[2019-05-03 16:06] LABS: BAND NEUTROPHILS 2 %; LYMPHOCYTES % (MANUAL) 5 %; NEUTROPHILS % (MANUAL) 92 %
[2019-05-03 16:07] LABS: RBC MORPH NORMAL
[2019-05-03 16:26] LABS: BILIRUBIN,URINE NEGATIVE (NEGATIVE); CLARITY,URINE CLEAR; COLOR,URINE YELLOW; GLUCOSE, URINE (UA) 4+ (NEGATIVE); KETONES,URINE 4+ (NEGATIVE); LEUKOCYTE ESTERASE ,URINE NEGATIVE (NEGATIVE); NITRITE,URINE NEGATIVE (NEGATIVE); PH,URINE 6.5 (5-9); PROTEIN,URINE 2+ (NEGATIVE)
[2019-05-03 16:39] LABS: AMORPHOUS SEDIMENT,UR FEW AMOR URATES /LPF; BACTERIA,URINE NEGATIVE /HPF; RBC,URINE RARE /HPF; SQUAMOUS EPITHELIAL CELL,UR 0-2 /HPF; WBC,URINE RARE /HPF
[2019-05-03] MEDS ORDERED: HOLD METFORMIN - RECEIVED CONTRAST 20 ML VIAL IV SCH (17:15)
[2019-05-03] MEDS ORDERED: CATHETER FLUSH 10 ML SYR IV PRN (17:15)
[2019-05-03] MEDS ORDERED: IOHEXOL 350 MG/ML 100 ML (OMNIPAQUE 350) VIAL IV ONE (17:15)
[2019-05-03] MEDS ORDERED: NS 100 ML (IVPB) BAG IV ONE (17:15)
--- NOTE | 2019-05-03 18:29 | Diagnostic Imaging Report ---
PROCEDURE: CT head and maxillofacial without contrast. TECHNIQUE: Multiple contiguous axial images were obtained through the head and facial bones without the use of intravenous contrast. Auto Exposure Controls were utilized during the CT exam to meet ALARA standards for radiation dose reduction. INDICATION: Seizure and fall. Comparison made with CT head from 03/12/2017. 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 This is unchanged since the previous exam. The frontal horns are not significantly dilated. The third ventricle and fourth ventricle are not dilated. There is no evidence of intracranial hemorrhage. Cortical gyral pattern is unchanged from previous exam. No extra-axial fluid collection. Basal cisterns are clear. Pituitary is not enlarged. The mastoid air cells and paranasal sinuses are clear. No calvarial fracture. IMPRESSION: 1. No acute intracranial abnormalities when compared with previous examination. 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 CT FACIAL BONES: The paranasal sinuses are well aerated and clear. No evidence of facial bone fractures. Orbital rims are intact. Nasal septum is midline. The temporomandibular joints are in good alignment bilaterally. There is advanced degenerative change noted of the TMJs with flattening of the mandibular condyles bilaterally. IMPRESSION: No acute abnormalities noted of the facial bones. Dictated by: Dictated on workstation # [id number]
--- NOTE | 2019-05-03 18:32 | Diagnostic Imaging Report ---
PROCEDURE: CT chest, abdomen, and pelvis without contrast. TECHNIQUE: Multiple contiguous axial images were obtained through the chest, abdomen, and pelvis without the use of intravenous contrast. Auto Exposure Controls were utilized during the CT exam to meet ALARA standards for radiation dose reduction. INDICATION: Abdominal pain and emesis. COMPARISON: Comparison is made to previous abdominal and pelvic CT dated 09/22/2017. FINDINGS: CT chest: There is mild left basilar density likely representing pneumonitis or atypical pneumonia. There is no consolidation. No significant pleural or pericardial fluid identified. There is mural thickening within the distal esophagus with mild hiatal hernia. Gastrostomy tube is in place within the stomach. There is no significant pleural or pericardial fluid. No pathologic adenopathy is identified. There is an approximately 0.9 cm hyperdense nodule in the deep lateral right breast. IMPRESSION: Mild left basilar pneumonitis or atypical pneumonia. Note is made of an approximately 0.9 cm nodule in the right breast. This could represent hemorrhagic cyst or possible fibroadenoma. Clinical correlation with physical exam would be useful. Ultrasonography may also be of value. CT abdomen and pelvis: There is no evidence of hepatic, pancreatic or splenic abnormality on the noncontrast study. The stomach is distended with gas and fluid with gastrostomy tube in place. Gallbladder is surgically absent. Dominant 8 cm cyst is noted in the right kidney. Kidneys are otherwise unremarkable. There is no evidence of free fluid within the abdomen or pelvis. There is an approximately 0.4 cm nonobstructing stone in the lower pole of the left kidney. No ureteric stone is identified. Bladder is unremarkable on noncontrasted study. There is no evidence of acute osseous abnormality. IMPRESSION: Nonobstructing left lower pole renal calculus and persistent dominant cyst in the right kidney. Otherwise, no acute abnormality or adverse change is identified. There is mural thickening in the distal esophagus which may represent esophagitis. Dictated by: Dictated on workstation # [id number]
--- NOTE | 2019-05-03 18:51 | ED General ---
General Chief Complaint: Neurological Problems Stated Complaint: SEIZURES;VOMITING Nursing Triage Note: MOM STATES PT IS VOMITING DUE TO SEASONAL ALLERGIES AND IS UNABLE TO KEEP HER SEIZURE MEDICATIONS DOWN. X3 WEEKS AGO PT HAD E-COLI IN HER URINE AND IS BEING TREATED FOR THAT AND WAS SEEN BY HER DR THIS AM BUT HAS BECAME WORSE. MOM STATES SHE IS IN PAIN AND NEVER CRIES BUT IS CRYING NOW. Nursing Sepsis Screen: Possible Severe Sepsis Risk Source of Information: Patient Exam Limitations: No Limitations History of Present Illness Date Seen by Provider: May 03, 2019 Time Seen by Provider: 14:48 Initial Comments This 29-year-old young lady with intellectual and developmental disabilities is brought to the emergency room by her mother with concerns about vomiting and general illness worsening over the past 2-3 weeks. She seems to be in pain at times. She has been afebrile. She has had decreased urine output as well as decreased intake. She does receive some tube feeds. Patient was seen in the clinic today and started on amoxicillin. However, she began to vomit and did not keep medication in. There was concern she may have an ear infection. She has had increased seizure activity recently as well. Allergies and Home Medications Allergies Coded Allergies: No Known Drug Allergies (Verified , 07/13/18) Home Medications Cetirizine HCl 10 Mg Tab.chew, 10 MG PO DAILY, (Reported) Diazepam 5 Mg Tablet, 2.5 MG PO HS, (Reported) Lactobacillus Acidophilus 1 Each Capsule, 1 EACH PO DAILY, (Reported) Lactulose 10 Gm/15 Ml Solution, 10 GM PO BID, (Reported) Meclizine HCl 12.5 Mg Tablet, PO TID, (Reported) Montelukast Sodium 10 Mg Tablet, 10 MG PO DAILY, (Reported) Ondansetron HCl 4 Mg/5 Ml Solution, 4 MG PO Q4H PRN for NAUSEA/VOMITING Prescribed by: HODAN GRIMALDO on 05/03/191918 Oxcarbazepine 300 Mg/5 Ml Oral.susp, 13.5 ML GT DAILY, (Reported) Oxcarbazepine 300 Mg/5 Ml Oral.susp, 15 ML GT HS, (Reported) Pantoprazole Sodium 40 Mg Tablet.dr, 40 MG PO DAILY, (Reported) Sertraline HCl 50 Mg Tablet, 50 MG PO HS, (Reported) Patient Home Medication List Home Medication List Reviewed: Yes Review of Systems Review of Systems Constitutional: no symptoms reported EENTM: no symptoms reported Respiratory: no symptoms reported Cardiovascular: no symptoms reported Gastrointestinal: see HPI Genitourinary: no symptoms reported : No Musculoskeletal: no symptoms reported Skin: no symptoms reported Psychiatric/Neurological: See HPI Hematologic/Lymphatic: No Symptoms Reported Past Kjacoag-Lvazpl-Icmlza Hx Past Med/Social Hx: Reviewed and Corrections made Patient Social History 2nd Hand Smoke Exposure: No Recent Foreign Travel: No Contact w/Someone Who Travel: No Recent Infectious Disease Expo: No Recent Hopitalizations: No Physical Abuse: No Sexual Abuse: No Mistreated: No Fear: No Immunizations Up To Date Tetanus Booster (TDap): Less than 5yrs Date of Pneumonia Vaccine: Dec 27, 2013 Date of Influenza Vaccine: Apr 11, 2018 Seasonal Allergies Seasonal Allergies: Yes Past Medical History Surgeries: Yes (NEPHROSTOMY, G-TUBE, SALIVARY GLAND, MULTIPLE ORTHO SURGERIES, BMT'S,EGD'S ) Ear Surgery, Eye Surgery, Gallbladder, Orthopedic Respiratory: Yes Pneumonia Cardiac: No Neurological: Yes (SEVERE MR) Developmental Disorder, Seizure Disorder, Vertigo Reproductive Disorders: No (RECIEVES SHOTS EVERY 3 MONTHS) Genitourinary: Yes Kidney Stones, UTI-Chronic Gastrointestinal: Yes (PEG tube) Pancreatitis, Ulcer Musculoskeletal: Yes (LOW MUSCLE TONE, POINTS TOES DOWN, MULTIPLE HIP DISLOCATIONS) Endocrine: No HEENT: Yes Chronic Ear Infection Cancer: No Psychosocial: Yes (MR/DEVELOPMENTAL DELAY) Integumentary: No Blood Disorders: No Adverse Reaction/Blood Tranf: No Family Medical History Cancer Dementia Family history: Allergy Family history: Arthritis Family history: Asthma Family history: Breast disease Family history: Cardiovascular disease Family history: Diabetes mellitus Family history: Gastrointestinal disease Family history: Hypertension Family history: Osteoporosis Hearing loss Heart disease Stroke No Family History of: Abdominal aortic aneurysm [place]'s disease Alcoholism Aphasia Cancer of colon Cataract Chest pain Congenital heart disease Congestive heart failure Cystic fibrosis Dysphagia Family history: Alzheimer's disease Family history: Coronary thrombosis Family history: Glaucoma Family history: Thyroid disorder Headache Hereditary disease History of - anemia History of - disorder History of - respiratory disease History of drug abuse Human immunodeficiency virus (HIV) seropositivity Hypercholesterolemia Infertile Kidney disease Malignant neoplasm of lung Myocardial infarction Parkinson's disease Prostate cancer Psychotic disorder Seizure disorder Tuberculosis Visual impairment Physical Exam Vital Signs Vital Signs - First Documented 05/03/19 14:30 Temp 35.9 Pulse 97 Resp 16 B/P (MAP) 129/84 (99) Pulse Ox 100 O2 Delivery Room Air Capillary Refill : Less Than 3 Seconds Height, Weight, BMI Height: 4'8.00" Weight: 91lbs. 0.0oz. 41.274826ox; 28.00 BMI Method:Stated General Appearance: WD/WN, Mild Distress (Intermittently appears in pain) HEENT: PERRL/EOMI, Normal ENT Inspection, Pharynx Normal, Other (Right TM has localized destruction which appears chronic in nature without acute inflammation) Neck: Normal Inspection, Non Tender Respiratory: Lungs Clear, Normal Breath Sounds, No Accessory Muscle Use, No Respiratory Distress Cardiovascular: Regular Rate, Rhythm, No Edema, No Murmur Gastrointestinal: Normal Bowel Sounds, Non Tender, Soft Extremity: Normal Inspection, No Pedal Edema Neurologic/Psychiatric: Alert, No Motor/Sensory Deficits, Normal Mood/Affect, Other (Nystagmus and other chronic neurologic deficits) Skin: Normal Color, Warm/Dry Progress/Results/Core Measures Suspected Sepsis Recent Fever Within 48 Hours: No Infection Criteria Present: Documented Infection New/Unexplained Altered Menta: No Sepsis Screen: Possible Severe Sepsis Risk SIRS Temperature: Pulse: 97 Respiratory Rate: 16 Laboratory Tests 05/03/19 15:30: White Blood Count 8.1 Blood Pressure 129 /84 Mean: 99 Laboratory Tests 05/03/19 15:30: Creatinine 0.69, Platelet Count 297, Total Bilirubin 0.2 Results/Orders Lab Results Laboratory Tests Test 05/03/19 15:30 05/03/19 16:15 05/03/19 17:00 Range/Units White Blood Count 8.1 4.3-11.0 10^3/uL Red Blood Count 4.45 4.35-5.85 10^6/uL Hemoglobin 13.8 11.5-16.0 G/DL Hematocrit 42 35-52 % Mean Corpuscular Volume 94 80-99 FL Mean Corpuscular Hemoglobin 31 25-34 PG Mean Corpuscular Hemoglobin Concent 33 32-36 G/DL Red Cell Distribution Width 13.7 10.0-14.5 % Platelet Count 297 130-400 10^3/uL Mean Platelet Volume 8.6 7.4-10.4 FL Neutrophils (%) (Auto) 91 H 42-75 % Lymphocytes (%) (Auto) 8 L 12-44 % Monocytes (%) (Auto) 1 0-12 % Eosinophils (%) (Auto) 0 0-10 % Basophils (%) (Auto) 0 0-10 % Neutrophils # (Auto) 7.4 1.8-7.8 X 10^3 Lymphocytes # (Auto) 0.7 L 1.0-4.0 X 10^3 Monocytes # (Auto) 0.1 0.0-1.0 X 10^3 Eosinophils # (Auto) 0.0 0.0-0.3 10^3/uL Basophils # (Auto) 0.0 0.0-0.1 10^3/uL Neutrophils % (Manual) 92 % Lymphocytes % (Manual) 5 % Band Neutrophils 2 % Blood Morphology Comment NORMAL Sodium Level 142 135-145 MMOL/L Potassium Level 3.4 L 3.6-5.0 MMOL/L Chloride Level 107 98-107 MMOL/L Carbon Dioxide Level 24 21-32 MMOL/L Anion Gap 11 5-14 MMOL/L Blood Urea Nitrogen 15 7-18 MG/DL Creatinine 0.69 0.60-1.30 MG/DL Estimat Glomerular Filtration Rate > 60 BUN/Creatinine Ratio 22 Glucose Level 194 H 70-105 MG/DL Calcium Level 9.0 8.5-10.1 MG/DL Corrected Calcium 8.5-10.1 MG/DL Total Bilirubin 0.2 0.1-1.0 MG/DL Aspartate Amino Transf (AST/SGOT) 25 5-34 U/L Alanine Aminotransferase (ALT/SGPT) 21 0-55 U/L Alkaline Phosphatase 84 40-136 U/L C-Reactive Protein High Sensitivity 0.42 0.00-0.50 MG/DL Total Protein 7.4 6.4-8.2 GM/DL Albumin 4.6 H 3.2-4.5 GM/DL Urine Color YELLOW Urine Clarity CLEAR Urine pH 6.5 5-9 Urine Specific [place] 1.020 1.016-1.022 Urine Protein 2+ H NEGATIVE Urine Glucose (UA) 4+ H NEGATIVE Urine Ketones 4+ H NEGATIVE Urine Nitrite NEGATIVE NEGATIVE Urine Bilirubin NEGATIVE NEGATIVE Urine Urobilinogen NORMAL NORMAL MG/DL Urine Leukocyte Esterase NEGATIVE NEGATIVE Urine RBC (Auto) NEGATIVE NEGATIVE Urine RBC RARE /HPF Urine WBC RARE /HPF Urine Squamous Epithelial Cells 0-2 /HPF Urine Crystals PRESENT H /LPF Urine Amorphous Sediment FEW RICHARD URATES H /LPF Urine Bacteria NEGATIVE /HPF Urine Casts NONE /LPF Urine Mucus SMALL H /LPF Urine Culture Indicated NO Lipase 155 H 8-78 U/L My Orders Orders - HODAN HERNANDEZ MD Cbc With Automated Diff (05/03/19 14:49) Comprehensive Metabolic Panel (05/03/19 14:49) Hs C Reactive Protein (05/03/19 14:49) Ua Culture If Indicated (05/03/19 14:49) Ed Iv/Invasive Line Start (05/03/19 14:49) Ondansetron Injection (Zofran Injectio (05/03/19 15:00) Ns Iv 1000 Ml (Sodium Chloride 0.9%) (05/03/19 14:49) Manual Differential (05/03/19 15:30) Ct Head/Maxillofacial Wo (05/03/19 17:08) Received Contrast (Hold Metformin- Contr (05/03/19 17:15) Sodium Chloride Flush (Catheter Flush Sy (05/03/19 17:15) Lipase (05/03/19 17:44) Ct Chest/Abdomen/Pelvis Wo (05/03/19 17:44) Ceftriaxone For Iv Use (Rocephin For I (05/03/19 19:15) Pantoprazole Injection (Protonix Injecti (05/03/19 19:30) Famotidine Injection (Pepcid Injection) (05/03/19 19:30) Medications Given in ED Current Medications Medications Dose Ordered Sig/Fawad Route Start Time Stop Time Status Last Admin Dose Admin Ceftriaxone Sodium 1000 mg/ Sterile Water 10 ml @ 200 mls/hr ONCE ONCE IV 05/03/19 19:15 05/03/19 19:17 DC 05/03/19 19:31 200 MLS/HR Ondansetron HCl 4 mg ONCE ONCE IVP 05/03/19 15:00 05/03/19 15:01 DC 05/03/19 15:37 4 MG Sodium Chloride 1,000 ml @ 0 mls/hr Q0M ONCE IV 05/03/19 14:49 05/03/19 14:51 DC 05/03/19 15:38 500 MLS/HR Vital Signs/I&O 05/03/19 05/03/19 14:30 19:42 Temp 35.9 35.9 Pulse 97 97 Resp 16 16 B/P (MAP) 129/84 (99) 129/84 (99) Pulse Ox 100 100 O2 Delivery Room Air Capillary Refill : Less Than 3 Seconds Blood Pressure Mean: 99 POS Progress Note : Progress Note Lab work revealed mild elevation in lipase and elevated blood sugar that was not diagnostic for diabetes. Patient was treated with IV fluids and Zofran. She had no further vomiting while in the emergency room. Catheter urine specimen was unremarkable except for glucose and ketones. Ketones suggested hypokalemia. Because of the nondescript perception of pain and no obvious source on exam, I discussed imaging possibilities with patient's mother. We decided to CT the head and facial bones to screen for possible infectious issues related to her chronic ear problems as well as CT the chest abdomen and pelvis because of her history of swallowing foreign objects and pancreatitis. Imaging studies revealed findings as below. He has of pneumonitis on the chest CT, Rocephin was administered. There was a right breast lesion that may need followed with ultrasound. Patient is to continue on the antibiotics and observe a clear liquid diet for 24 hours. They're to check in with Dr. Arango's office tomorrow. Blood sugar could be checked again when she is feeling better and better hydrated. Diagnostic Imaging Diagonstic Imaging: CT Plain Films/CT/US/NM/MRI: facial bones, head Comments CT head and maxillofacial bones reviewed by me and report reviewed. See report below: NAME: AMBROCIO PASCUAL [facility] REC#: [id number] PT STATUS: REG ER : 1990 PHYSICIAN: HODAN HERNANDEZ MD ADMIT DATE: 05/03/19/ER Signed POSDate of Exam:05/03/19 CT HEAD/MAXILLOFACIAL WO PROCEDURE: CT head and maxillofacial without contrast. TECHNIQUE: Multiple contiguous axial images were obtained through the head and facial bones without the use of intravenous contrast. Auto Exposure Controls were utilized during the CT exam to meet ALARA standards for radiation dose reduction. INDICATION: Seizure and fall. Comparison made with CT head from 03/12/2017. 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 This is unchanged since the previous exam. The frontal horns are not significantly dilated. The third ventricle and fourth ventricle are not dilated. There is no evidence of intracranial hemorrhage. Cortical gyral pattern is unchanged from previous exam. No extra-axial fluid collection. Basal cisterns are clear. Pituitary is not enlarged. The mastoid air cells and paranasal sinuses are clear. No calvarial fracture. IMPRESSION: 1. No acute intracranial abnormalities when compared with previous examination. 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 CT FACIAL BONES: The paranasal sinuses are well aerated and clear. No evidence of facial bone fractures. Orbital rims are intact. Nasal septum is midline. The temporomandibular joints are in good alignment bilaterally. There is advanced degenerative change noted of the TMJs with flattening of the mandibular condyles bilaterally. IMPRESSION: No acute abnormalities noted of the facial bones. Dictated by: Dictated on workstation # [id number] Dict: 05/03/19 182 Trans: 05/03/191833 [facility] [id number] Interpreted by: MALGORZATA WERNER MD Electronically signed by: MALGORZATA WERNER MD 05/03/191833 Diagonstic Imaging: CT Plain Films/CT/US/NM/MRI: chest, abdomen, pelvis Comments CT chest, abdomen and pelvis viewed by me and report reviewed. See report below: NAME: AMBROCIO PASCUAL [facility] REC#: [id number] PT STATUS: REG ER : 1990 PHYSICIAN: HODAN HERNANDEZ MD ADMIT DATE: 05/03/19/ER Draft POSDate of Exam:05/03/19 CT CHEST/ABDOMEN/PELVIS WO PROCEDURE: CT chest, abdomen, and pelvis without contrast. TECHNIQUE: Multiple contiguous axial images were obtained through the chest, abdomen, and pelvis without the use of intravenous contrast. Auto Exposure Controls were utilized during the CT exam to meet ALARA standards for radiation dose reduction. INDICATION: Abdominal pain and emesis. COMPARISON: Comparison is made to previous abdominal and pelvic CT dated 09/22/2017. FINDINGS: CT chest: There is mild left basilar density likely representing pneumonitis or atypical pneumonia. There is no consolidation. No significant pleural or pericardial fluid identified. There is mural thickening within the distal esophagus with mild hiatal hernia. Gastrostomy tube is in place within the stomach. There is no significant pleural or pericardial fluid. No pathologic adenopathy is identified. There is an approximately 0.9 cm hyperdense nodule in the deep lateral right breast. IMPRESSION: Mild left basilar pneumonitis or atypical pneumonia. Note is made of an approximately 0.9 cm nodule in the right breast. This could represent hemorrhagic cyst or possible fibroadenoma. Clinical correlation with physical exam would be useful. Ultrasonography may also be of value. CT abdomen and pelvis: There is no evidence of hepatic, pancreatic or splenic abnormality on the noncontrast study. The stomach is distended with gas and fluid with gastrostomy tube in place. Gallbladder is surgically absent. Dominant 8 cm cyst is noted in the right kidney. Kidneys are otherwise unremarkable. There is no evidence of free fluid within the abdomen or pelvis. There is an approximately 0.4 cm nonobstructing stone in the lower pole of the left kidney. No ureteric stone is identified. Bladder is unremarkable on noncontrasted study. There is no evidence of acute osseous abnormality. IMPRESSION: Nonobstructing left lower pole renal calculus and persistent dominant cyst in the right kidney. Otherwise, no acute abnormality or adverse change is identified. There is mural thickening in the distal esophagus which may represent esophagitis. Dictated on workstation # [id number] Dict: 05/03/19 1821 Trans: 05/03/19 1832 [facility] [id number] Interpreted by: TRUPTI RODRIGUEZ MD Departure Impression Primary Impression: Nausea and vomiting Additional Impressions: Pneumonitis Pancreatitis Qualified Codes: K85.90 - Acute pancreatitis without necrosis or infection, unspecified Breast lesion Hypovolemia Disposition: 01 HOME, SELF-CARE Condition: Improved Departure-Patient Inst. Decision time for Depature: 19:17 Referrals: VIJAY ARANGO DO (PCP/Family) Primary Care Physician Patient Instructions: Pancreatitis Add. Discharge Instructions: Observe a clear liquid diet for the next 24 hours. Then gradually advance diet as tolerated. Continue antibiotics as prescribed. Give your next dose of antibiotics tomorrow evening. Use Zofran per feeding tube as necessary for nausea and vomiting. Call Dr. Arango's office in the morning to provide an update and arrange follow-up.. Return to the emergency room as needed for uncontrolled symptoms or worsening symptoms. All discharge instructions reviewed with patient and/or family. Voiced un derstanding. Scripts Ondansetron HCl (Ondansetron HCl) 4 Mg/5 Ml Solution 4 MG PO Q4H PRN for NAUSEA/VOMITING, #100 ML Prov: HODAN HERNANDEZ MD 05/03/19 Copy Copies To 1: VIJAY ARANGO JOSHUA T MD May 03, 2019 18:51 POS
[2019-05-03] MEDS ORDERED: cefTRIAXone FOR IV USE 1,000 MG in WATER (STERILE) FOR INJECTION 10 ML IV ONE (19:15)
[2019-05-03] MEDS ORDERED: ONDA4SOL11 PO (19:19)
[2019-05-03] MEDS ORDERED: FAMOTIDINE 20MG/2ML IV (PEPCID) IVP ONE (19:30)
[2019-05-03] MEDS ORDERED: PANTOPRAZOLE 40 MG (PROTONIX) VIAL IV ONE (19:30)
--- NOTE | 2019-05-03 19:35 | NUR ---
PT PULLED OUT HER SECOND IV AFTER THE ROCEPHIN WAS ADMINISTERED. DR. HERNANDEZ ADVISED MOTHER TO BE SURE PT GOT ANTACID MEDICATION TONIGHT WHEN SHE GOT HOME AND MOTHER STATED UNDERSTANDING.
[2019-05-03 19:42] VITALS: BP 129/84
== END 2019-05-03 19:42 | disposition home or self-care (01) ==
LOC: EDUNIT# 14:05 → ER 14:06
DX: J18.9 Pneumonia, unspecified organism (principal); K85.90 Acute pancreatitis without necrosis or infection, unspecified; N64.89 Other specified disorders of breast; E86.1 Hypovolemia; G40.909 Epilepsy, unspecified, not intractable, without status epilepticus; Z87.440 Personal history of urinary (tract) infections; Z87.442 Personal history of urinary calculi; Z93.1 Gastrostomy status; Z82.49 Family history of ischemic heart disease and other diseases of the circulatory system
CPT/HCPCS: 36415; 70450; 70486; 71250; 74176; 80053; 81000; 83690; 85007; 85027; 86141; 96361; 96374; 96375

== ENCOUNTER → 2019-05-17 | Outpatient (CLI) | payer MEDICAID ==
[~2019-05-17] MED LIST changes: +ONDA4SOL11 PO
--- NOTE | 2019-05-17 12:05 | Diagnostic Imaging Report ---
INDICATION: Right breast density noted on recent CT chest. The study is performed for further evaluation. Correlation is made with CT chest study from 05/03/2019. FINDINGS: Sonographic interrogation of the outer right breast was performed. There is an ovoid cyst at the 9 o'clock location, 3 cm from the nipple measuring 13 mm x 5 mm x 11 mm. This may account for the CT density. No other masses are seen. This appears to be fairly simple. IMPRESSION: Simple cyst at the 9 o'clock location of the right breast, likely accounting for the density noted on CT. ACR BI-RADS Category 2: Benign findings. Result letter will be mailed to the patient. Note: At least 10% of breast cancer is not imaged by mammography. Dictated by: Dictated on workstation # [id number]
== END ==
LOC: RAD 10:50
PROVIDERS: ATTEND Family Medicine
DX: N60.01 Solitary cyst of right breast (principal); N63.10 Unspecified lump in the right breast, unspecified quadrant

== ENCOUNTER → 2019-05-23 | Outpatient (CLI) | payer MEDICAID ==
[2019-05-23 14:40] LABS: BILIRUBIN,URINE NEGATIVE (NEGATIVE); CLARITY,URINE SL CLOUDY; COLOR,URINE YELLOW; GLUCOSE, URINE (UA) NEGATIVE (NEGATIVE); KETONES,URINE NEGATIVE (NEGATIVE); LEUKOCYTE ESTERASE ,URINE NEGATIVE (NEGATIVE); NITRITE,URINE NEGATIVE (NEGATIVE); PH,URINE 6.5 (5-9); PROTEIN,URINE NEGATIVE (NEGATIVE)
[2019-05-23 14:46] LABS: AMORPHOUS SEDIMENT,UR MOD AMOR URATES /LPF; BACTERIA,URINE NEGATIVE /HPF
[2019-05-23 14:47] LABS: BASOPHILS % (AUTO) 0 % (0-10); EOSINOPHILS # (AUTO) 0.2 10^3/uL (0.0-0.3); EOSINOPHILS % (AUTO) 6 % (0-10); HEMATOCRIT 39 % (35-52); HEMOGLOBIN 12.5 G/DL (11.5-16.0); LYMPHOCYTES # (AUTO) 1.5 X 10^3 (1.0-4.0); LYMPHOCYTES % (AUTO) 42 % (12-44); MEAN CORPUSCULAR HEMOGLOBIN 31 PG (25-34); MEAN CORPUSCULAR HGB CONC 33 G/DL (32-36); MEAN CORPUSCULAR VOLUME 97 FL (80-99); MEAN PLATELET VOLUME 8.7 FL (7.4-10.4); MONOCYTES # (AUTO) 0.4 X 10^3 (0.0-1.0); MONOCYTES % (AUTO) 10 % (0-12); NEUTROPHILS # (AUTO) 1.5 X 10^3 (1.8-7.8); NEUTROPHILS % (AUTO) 42 % (42-75); PLATELET COUNT 268 10^3/uL (130-400); RED CELL DISTRIBUTION WIDTH 13.4 % (10.0-14.5); WHITE BLOOD COUNT 3.6 10^3/uL (4.3-11.0)
[2019-05-23 14:55] VITALS: BP 96/77
[2019-05-23 15:08] LABS: AMYLASE 103 U/L (25-125); BUN/CREATININE RATIO 21; CALCIUM 8.6 MG/DL (8.5-10.1); CARBON DIOXIDE 26 MMOL/L (21-32); CHLORIDE 108 MMOL/L (98-107); CREATININE SERUM 0.63 MG/DL (0.60-1.30); GFR ESTIMATED > 60; GLUCOSE 105 MG/DL (70-105); LIPASE 85 U/L (8-78); POTASSIUM 3.9 MMOL/L (3.6-5.0); SODIUM 143 MMOL/L (135-145)
--- NOTE | 2019-05-23 16:14 | Diagnostic Imaging Report ---
INDICATION: Pneumonia. EXAMINATION: PA and lateral chest. FINDINGS: The heart size and pulmonary vascularity are normal. The lungs are clear. There are no effusions or pneumothoraces. IMPRESSION: Negative chest. Dictated by: Dictated on workstation # [id number]
== END ==
LOC: SDC 14:04
PROVIDERS: ATTEND Family Medicine
DX: J18.9 Pneumonia, unspecified organism (principal); N39.0 Urinary tract infection, site not specified; R74.8 Abnormal levels of other serum enzymes
CPT/HCPCS: 36415; 71046; 80048; 81000; 82150; 83690; 85025

== ENCOUNTER → 2019-07-13 | Outpatient (CLI) | payer MEDICAID ==
[2019-07-13 14:43] LABS: ALANINE AMINOTRANSFERASE 17 U/L (0-55); ALBUMIN 4.3 GM/DL (3.2-4.5); ALKALINE PHOSPHATASE 55 U/L (40-136); AMYLASE 114 U/L (25-125); BILIRUBIN,TOTAL 0.1 MG/DL (0.1-1.0); BUN/CREATININE RATIO 17; CALCIUM 9.3 MG/DL (8.5-10.1); CARBON DIOXIDE 21 MMOL/L (21-32); CHLORIDE 106 MMOL/L (98-107); CREATININE SERUM 0.63 MG/DL (0.60-1.30); GFR ESTIMATED > 60; GLUCOSE 98 MG/DL (70-105); LIPASE 113 U/L (8-78); POTASSIUM 3.8 MMOL/L (3.6-5.0); SODIUM 138 MMOL/L (135-145); TOTAL PROTEIN 6.6 GM/DL (6.4-8.2)
== END ==
LOC: LAB 14:04
PROVIDERS: ATTEND Family Medicine
DX: K86.1 Other chronic pancreatitis (principal)
CPT/HCPCS: 36415; 80053; 82150; 83690

== ENCOUNTER 2019-11-10 19:13 | Emergency (ER) | payer MEDICAID ==
[~2019-11-10] VITALS: Ht 120 cm; Wt 41.3 kg
[~2019-11-10 19:13] MED LIST changes: -DIAZ5TAB3 PO; +DIAZ5TAB49 PO; +MECL-172 PO; -MECL12.579 PO; -MONT10TA24 PO; +MONT10TA26 PO
[2019-11-10] MEDS ORDERED: LIDOCAINE UROJET 2% GEL 10 ML PKG ONE (19:15)
[2019-11-10] MEDS ORDERED: LIPA1CAP70 (19:23)
[2019-11-10] MEDS ORDERED: NF-CIPDEC (19:23)
[2019-11-10 19:24] VITALS: BP 124/86
--- OUTSIDE RECORDS SUMMARY | 2019-11-10 19:26 | XMS REPORT | Clinical Summary ---
Author Author [facility] Organization [facility] Address Unknown Phone Unavailable Care Team Providers Care Child Psychology Teacher Name Role Phone Garth Peterson MD Unavailable Cyril Ambrocio MD PCP Gretta Herbert RN Unavailable Unavailable Aylin Tavera RN Unavailable Unavailable Geovanna Nagel APRN Unavailable Source Comments Some departments are not documenting in the electronic medical record. If you d o not see the information that you expected, contact Release of Information in [facility] [employer] Information Management department at [phone] for further assistan ce in locating additional records.[facility] Allergies No Known Allergies Medications End Date [...] Never Used Tobacco Cessation: Counseling Given: Yes Drinks/Week oz/Week Comments Alcohol Use 0 Standard drinks or equivalent 0.0 No Sex Assigned at Date Recorded Not on file Industry Job Start Date Occupation Not on file Not on file Not on file Travel End Travel History Travel Start No recent travel history available. Last Filed Vital Signs Reading Time Taken Comments Vital Sign 144/100 10/15/2014 6:30 AM CDT Blood Pressure 103 10/15/2014 6:30 AM CDT Pulse 36.7 C (98 F) 10/15/2014 6:30 AM CDT Temperature - - Respiratory Rate 93% 10/15/2014 6:30 AM CDT Oxygen Saturation - - Inhaled Oxygen Concentration 38.6 kg (85 lb) 01/29/2015 9:10 AM CDT Weight 129.5 cm (4' 3") 01/29/2015 9:10 AM CDT Height 22.98 01/29/2015 9:10 AM CDT Body Mass Index Plan of Treatment Health Maintenance Due Date Last Done Comments HIV SCREENING 2003 DTAP/TDAP VACCINES (1 - 2006 Tdap) HEPATITIS C SCREENING 2006 PHYSICAL (COMPREHENSIVE) 2006 EXAM CERVICAL CANCER SCREENING 2009 INFLUENZA VACCINE 04/04/2020 Results Not on filefrom Last 3 Months Advance Directives Patient Testing Analyst Explanation Type Date Recorded Advance 09/24/2014 11:22 AM Directive/DPOA Date Inactivated Comments Code Status Date Activated 10/15/2014 1:53 PM Full Code 10/12/2014 2:35 PM Provider has discussed Code Status No, discussion no t w/Patient or Family? necessary based on Dx
--- OUTSIDE RECORDS SUMMARY | 2019-11-10 19:27 | XMS REPORT | CCD ---
Author Author Belkys Arango D.O. 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 Name Role Phone Keily Arango D.O., PP Unavailable CCM Unavailable Summary Purpose Interface Exchange Insurance Providers Payer name Policy type / Coverage type Covered republican ID Effective Begin Date Effective End Date [employer] [facility] Medicaid [id number] U nknown Family History Family History data not found Social History Social History Element Codes Description Effective Dates Marital status Unknown Single 08/21/2015 Employment Unknown Currently unemployed Physically handicapped 08/21/[address]: 780077831 Has never smoked or chewed tobacco 08/21/[address]: 464183611 Never drinks alcohol 2015 Allergies, Adverse Reactions, Alerts Substance Reaction Codes Entered Date Inactivated Date Status * NO KNOWN FOOD ALLERGIES Unknown 08/21/2015 No Inactiv e Date Active * NO KNOWN DRUG ALLERGIES Unknown 08/21/2015 No Inactiv e Date Active _ Unknown 08/21/2015 No Inactive Date Active Problems Condition Codes Effective Dates Condition Status Otalgia, bilateral ICD-9: 388.70 ICD-10: H92.03 10/23/2019 Active Allergic rhinitis, unspecified ICD-9: 477.9 ICD-10: J30.9 12/15/2015 Active Sinusitis ICD-9: 473.9 ICD-10: J32.9 07/25/2019 Active Cerebral palsy, unspecified ICD-9: 343.9 ICD-10: G80.9 08/20/2015 Active Chronic pancreatitis ICD-9: 577.1 ICD-10: K86.1 06/12/2019 Active Encounter for general adult medical examination with a bnormal findings ICD-9: V70.0 ICD-10: Z00.01 06/12/2019 Active Breast mass, right ICD-9: 611.72 ICD-10: N63.10 05/08/2019 Active Pneumonia, organism unspecified ICD-9: 486 ICD-10: J18.9 05/08/2019 Active Allergic rhinitis due to pollen ICD-9: 477.9 ICD-10: J30.1 11/10/2016 Active Irritability and anger ICD-9: 799.22 ICD-10: R45.4 11/25/2018 Active Acute suppurative otitis media without s pontaneous rupture of ear drum, bilateral ICD-9: 382.00 ICD-10: H66.003 06/13/2018 Active Acute gastritis without bleeding ICD-9: 535.00 ICD-10: K29.00 01/04/2018 Active Anuria and oliguria ICD-9: 788.5 ICD-10: R34 01/04/2018 Active Other fatigue ICD-9: 780.79 ICD-10: R53.83 02/23/2016 Active Acute bronchitis, unspecified ICD-9: 466.0 ICD-10: J20.9 12/31/2017 Active Encounter for general adult medical examination withou t abnormal findings ICD-9: V70.9 ICD-10: Z00.00 12/14/2017 Active Epilepsy, unspecified, intractable, without status epi lepticus ICD-9: 345.91 ICD-10: G40.919 08/20/2015 Active Gastric ulcer, unspecified as acute or c hronic, without hemorrhage or perforation ICD-9: 531.90 ICD-10: K25.9 08/20/2015 Active Gastro-esophageal reflux disease without esophagitis I CD-9: 530.81 ICD-10: K21.9 12/14/2017 Active Severe intellectual disabilities ICD-9: 318.1 ICD-10: F72 08/20/2015 Active Other allergic rhinitis ICD-9: 477.8 ICD-10: J30.89 10/12/2017 Active Acute suppurative otitis media without s pontaneous rupture of ear drum, recurrent, left ear ICD-9: 382.00 ICD-10: H66.005 09/17/2017 Active Hesitancy of micturition ICD-9: 788.64 ICD-10: R39.11 09/17/2017 Active Otitis media, unspecified, left ear ICD-9: 380.14 ICD-10: H66.92 08/06/2017 Active Urinary tract infection, site not specified ICD-9: 599 .0 ICD-10: N39.0 03/22/2016 Active Cyclical vomiting, intractable ICD-9: 536.2 ICD-10: G43.A1 04/21/2017 Active Dizziness and giddiness ICD-9: 780.4 ICD-10: R42 03/09/2017 Active Altered mental status, unspecified ICD-9: 780.97 ICD-10: R41.82 03/09/2017 Active Vomiting, unspecified ICD-9: 787.03 ICD-10: R11.10 03/01/2017 Active Vertigo of central origin, unspecified ear ICD-9: 386. 2 ICD-10: H81.49 04/01/2017 Active Calculus of kidney ICD-9: 592.0 ICD-10: N20.0 08/13/2016 Active Intestinal adhesions [bands] with obstruction (postpro cedural) (postinfection) ICD-9: 560.81 ICD-10: K56.5 03/01/2017 Active Personal history of urinary calculi ICD-9: V13.01 ICD-10: Z87.442 03/01/2017 Active Constipation, unspecified ICD-9: 564.00 ICD-10: K59.00 03/18/2016 Active Acute and subacute allergic otitis media (mucoid) (sanguinous) (serous), left ear ICD-9: 381.05 ICD-10: H65.112 11/10/2016 Active Other polyuria ICD-9: 788.42 ICD-10: R35.8 09/07/2016 Active Unspecified urinary incontinence ICD-9: 788.30 ICD-10: R32 09/07/2016 Active Cyst of kidney, acquired ICD-9: 753.10 ICD-10: N28.1 08/13/2016 Active Unspecified ovarian cyst, right side ICD-9: 620.2 ICD-10: N83.201 08/13/2016 Active Pain in left foot ICD-9: 729.5 ICD-10: M79.672 05/18/2016 Active Rash and other nonspecific skin eruption ICD-9: 782.1 ICD-10: R21 03/26/2016 Active Dysuria ICD-9: 788.1 ICD-10: R30.0 03/18/2016 Active Retention of urine, unspecified ICD-9: 788.20 ICD-10: R33.9 03/18/2016 Active Acute sinusitis, unspecified ICD-9: 461.9 ICD-10: J01.90 03/01/2016 Active Generalized abdominal pain ICD-9: 789.07 ICD-10: R10.84 02/23/2016 Active 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 02/23/2016 Active Chronic mucoid otitis media, right ear ICD-9: 381.20 ICD-10: H65.31 12/15/2015 Active Functional dyspepsia ICD-9: 536.8 ICD-10: K30 12/15/2015 Active Acute recurrent sinusitis, unspecified ICD-9: 461.9 ICD-10: J01.91 11/11/2015 Active Epigastric pain ICD-9: 789.06 ICD-10: R10.13 10/15/2015 Active Nausea with vomiting, unspecified ICD-9: 787.01 ICD-10: R11.2 10/15/2015 Active Other seasonal allergic rhinitis ICD-9: 477.9 ICD-10: J30.2 10/15/2015 Active Encounter for follow-up examination afte r completed treatment for conditions other than malignant neoplasm ICD-9: V67.59 ICD-10: Z09 09/22/2015 Active Generalized abdominal pain ICD-9: 789.00 ICD-10: R10.84 09/22/2015 Active Otitis media, unspecified, right ear ICD-9: 382.9 ICD-10: H66.91 09/19/2015 Active Unspecified perforation of tympanic membrane, right ea r ICD-9: 384.20 ICD-10: H72.91 09/09/2015 Active Medications Medication Codes Instructions Start Date Stop Date Status Fill Instructions meclizine 12.5 mg tablet RxNorm: 108546 TAKE 1 TABLET B Y MOUTH THREE TIMES DAILY NEEDED 10/30/2019 12/28/2019 Active cefdinir 250 mg/5 mL oral suspension RxNorm: 213008 12 Milliliter(s) Oral QD though PEG tube 10/23/2019 11/01/2019 Active Lortab Elixir 10 mg-300 mg/15 mL oral solution RxNorm: 16782 45 8 Milliliter(s) Oral Q6-8H as needed 10/23/2019 10/23/2019 Inactive Protonix 40 mg tablet,delayed release RxNorm: 838309 1 Tablet(s) Oral or per feeding tube two times a day 10/16/2019 04/12/2020 Active Zenpep 40,000 unit-126,000 unit-168,000 unit capsule,d elayed release RxNorm: 7395231 1 Capsule(s) Oral AC 10/16/2019 02/12/2020 Active Ciprodex 0.3 %-0.1 % ear drops,suspension RxNorm: 655176 SHAKE LIQUID AND INSTILL 4 DROPS IN AFFECTED EAR(S) TWICE DAILY 09/22/2019 10/15/2019 I nactive diazepam 10 mg tablet RxNorm: 787013 TAKE 1 TABLET BY M OUTH EVERY NIGHT AT BEDTIME NEEDED 09/11/2019 10/10/2019 Inactive meclizine 12.5 mg tablet RxNorm: 874327 TAKE 1 TABLET B Y MOUTH THREE TIMES DAILY NEEDED 08/31/2019 10/29/2019 Inactive Ciprodex 0.3 %-0.1 % ear drops,suspension RxNorm: 943976 SHAKE LIQUID AND INSTILL 4 DROPS IN AFFECTED EAR(S) TWICE DAILY 08/31/2019 09/07/2019 I nactive Ciprodex 0.3 %-0.1 % ear drops,suspension RxNorm: 715250 SHAKE LIQUID AND INSTILL 4 DROPS IN AFFECTED EAR(S) TWICE DAILY 08/11/2019 08/18/2019 I nactive meclizine 12.5 mg tablet RxNorm: 997375 TAKE 1 TABLET B Y MOUTH THREE TIMES DAILY NEEDED 08/04/2019 08/30/2019 Inactive cefdinir 250 mg/5 mL oral suspension RxNorm: 879740 12 Milliliter(s) Oral QD though PEG tube 07/25/2019 08/03/2019 Inactive Zenpep 40,000 unit-126,000 unit-168,000 unit capsule,d elayed release RxNorm: 8655962 1 Capsule(s) Oral AC 07/10/2019 10/15/2019 Inactive famotidine 20 mg tablet RxNorm: 718207 TAKE 1 TABLET BY MOUTH EVERY NIGHT AT BEDTIME 07/09/2019 01/04/2020 Active sertraline 50 mg tablet RxNorm: 406711 TAKE 1 TABLET BY MOUTH EVERY NIGHT AT BEDTIME 07/09/2019 09/06/2019 Inactive Zenpep 40,000 unit-126,000 unit-168,000 unit capsule,d elayed release RxNorm: 6116081 1 Capsule(s) Oral AC 06/12/2019 07/09/2019 Inactive Zenpep 40,000 unit-126,000 unit-168,000 unit capsule,d elayed release RxNorm: 1533052 1 Capsule(s) Oral AC 05/24/2019 05/23/2019 Inactive Zenpep 40,000 unit-126,000 unit-168,000 unit capsule,d elayed release RxNorm: 3198572 1 Capsule(s) Oral AC 05/24/2019 10/16/2019 Inactive Ciprodex 0.3 %-0.1 % ear drops,suspension RxNorm: 463881 DROP(S) 4 DROP(S) OTIC BID 05/22/2019 06/18/2019 Inactive oxcarbazepine 300 mg/5 mL (60 mg/mL) oral suspension RxNorm: 289731 15 Milliliter(s) Oral two times a day 05/08/2019 11/03/2019 Active meclizine 12.5 mg tablet RxNorm: 763096 1 TABLET(S) PO TID NEEDE D 05/05/2019 08/02/2019 Inactive change in quantity Zithromax 200 mg/5 mL oral suspension RxNorm: 381633 12.5 Dilcia liter(s) Oral QD 05/04/2019 05/09/2019 Inactive amoxicillin 400 mg/5 mL oral suspension RxNorm: 914520 10 Milliliter(s) Oral two times a day 05/03/2019 05/13/2019 Inactive Singulair 10 mg tablet RxNorm: 992830 1 TABLET(S) PO QD 03/28/2019 Inactive Macrobid 100 mg capsule RxNorm: 545012 1 Capsule(s) PO BID 03/16/2003/22/2019 Inactive meclizine 12.5 mg tablet RxNorm: 593777 1 Tablet(s) PO TID as neede d 03/10/2019 05/04/2019 Inactive change in quantity Ciprodex 0.3 %-0.1 % ear drops,suspension RxNorm: 452467 DROP(S) 4 DROP(S) OTIC BID 03/08/2019 04/04/2019 Inactive oxcarbazepine 300 mg/5 mL (60 mg/mL) oral suspension RxNorm: 873436 15 Milliliter(s) PO BID 03/07/2019 05/07/2019 Inactive Macrobid 100 mg capsule RxNorm: 809693 1 Capsule(s) PO BID 02/21/2003/01/2019 Inactive Macrobid 100 mg capsule RxNorm: 654509 1 Capsule(s) PO BID 02/21/2002/19/2019 Inactive meclizine 12.5 mg tablet RxNorm: 846254 1 Tablet(s) PO TID as neede d 02/06/2019 03/07/2019 Inactive change in quantity Ciprodex 0.3 %-0.1 % ear drops,suspension RxNorm: 286418 DROP(S) 4 DROP(S) OTIC BID 01/30/2019 02/12/2019 Inactive diazepam 10 mg tablet RxNorm: 311803 1 Tablet(s) PO QHS as needed 0 01/27/2019 09/10/2019 Inactive sertraline 50 mg tablet RxNorm: 066226 1 Tablet(s) PO QHS 12/29/2018 06/26/2019 Inactive famotidine 20 mg tablet RxNorm: 098269 1 Tablet(s) PO QHS 12/29/2018 06/26/2019 Inactive Ciprodex 0.3 %-0.1 % ear drops,suspension RxNorm: 563246 DROP(S) 4 DROP(S) OTIC BID 12/14/2018 12/27/2018 Inactive Generlac 10 gram/15 mL oral solution RxNorm: 372379 15 Milliliter(s) PO TWO TO THREE TIMES DAILY 12/06/2018 06/03/2019 Inactive Protonix 40 mg tablet,delayed release RxNorm: 972473 1 Tablet(s) PO or per feeding tube BID 11/24/2018 10/15/2019 Inactive meclizine 12.5 mg tablet RxNorm: 301722 1 Tablet(s) PO TID as neede d 11/11/2018 02/06/2019 Inactive change in quantity Ciprodex 0.3 %-0.1 % ear drops,suspension RxNorm: 127403 DROP(S) 4 DROP(S) OTIC BID 11/08/2018 11/21/2018 Inactive diazepam 10 mg tablet RxNorm: 510232 1 Tablet(s) PO QHS as needed 0 10/21/2018 11/19/2018 Inactive Generlac 10 gram/15 mL oral solution RxNorm: 401605 Mil liliter(s) 15 MILLILITER(S) PO TWO TO THREE TIMES DAILY 10/07/2018 11/05/2018 Inacti ve Ciprodex 0.3 %-0.1 % ear drops,suspension RxNorm: 741457 DROP(S) DROP(S) 4 DROP(S) OTIC BID 08/26/2018 03/15/2019 Inactive meclizine 12.5 mg tablet RxNorm: 322414 1 TABLET(S) PO TID NEEDE D 07/25/2018 10/22/2018 Inactive change in quantity oxcarbazepine 300 mg/5 mL (60 mg/mL) oral suspension RxNorm: 932159 15 Milliliter(s) PO BID 07/08/2018 07/07/2018 Inactive oxcarbazepine 300 mg/5 mL (60 mg/mL) oral suspension RxNorm: 339117 15 Milliliter(s) PO BID 07/08/2018 01/03/2019 Inactive sertraline 50 mg tablet RxNorm: 467008 1 TABLET(S) PO QHS 07/06/2018 12/28/2018 Inactive Singulair 10 mg tablet RxNorm: 435231 1 TABLET(S) PO QD 06/24/2018 Inactive Ciprodex 0.3 %-0.1 % ear drops,suspension RxNorm: 503610 DROP(S) 4 DROP(S) OTIC BID 06/20/2018 06/19/2018 Inactive Ciprodex 0.3 %-0.1 % ear drops,suspension RxNorm: 248114 Drop(s) DROP(S) 4 DROP(S) OTIC BID 06/20/2018 07/03/2018 Inactive cefdinir 250 mg/5 mL oral suspension RxNorm: 355808 12 Milliliter(s) PO QD though PEG tube 06/13/2018 06/22/2018 Inactive famotidine 20 mg tablet RxNorm: 465739 1 Tablet(s) PO QHS 05/31/2018 11/26/2018 Inactive famotidine 40 mg/5 mL (8 mg/mL) oral suspension RxNorm: 3102 74 2.5 Milliliter(s) PO QHS 04/29/2018 06/12/2018 Inactive meclizine 12.5 mg tablet RxNorm: 989507 1 TABLET(S) PO TID NEEDE D 04/25/2018 07/23/2018 Inactive change in quantity Generlac 10 gram/15 mL oral solution RxNorm: 154050 Mil liliter(s) 15 MILLILITER(S) PO TWO TO THREE TIMES DAILY 04/04/2018 05/03/2018 Inacti ve Ciprodex 0.3 %-0.1 % ear drops,suspension RxNorm: 481648 Drop(s) 4 DROP(S) OTIC BID 04/04/2018 04/17/2018 Inactive diazepam 10 mg tablet RxNorm: 539952 1 Tablet(s) PO QHS as needed 1 05/03/2018 Inactive famotidine 40 mg/5 mL (8 mg/mL) oral suspension RxNorm: 3102 74 2.5 Milliliter(s) PO QHS 04/04/2018 04/28/2018 Inactive Generlac 10 gram/15 mL oral solution RxNorm: 076882 15 MILLILITER(S) PO TWO TO THREE TIMES DAILY 03/24/2018 04/03/2018 Inactive Singulair 10 mg tablet RxNorm: 478289 1 TABLET(S) PO QD 03/18/2018 Inactive Ciprodex 0.3 %-0.1 % ear drops,suspension RxNorm: 298163 Drop(s) 4 DROP(S) OTIC BID 03/08/2018 03/21/2018 Inactive Generlac 10 gram/15 mL oral solution RxNorm: 784270 15 Milliliter(s) PO two to three times daily 03/03/2018 03/23/2018 Inactive meclizine 12.5 mg tablet RxNorm: 353531 1 Tablet(s) PO TID as neede d 02/10/2018 04/10/2018 Inactive change in quantity meclizine 12.5 mg tablet RxNorm: 224265 1 Tablet(s) PO BID as neede d 02/07/2018 02/09/2018 Inactive change in quantity Ciprodex 0.3 %-0.1 % ear drops,suspension RxNorm: 993568 Drop(s) 4 DROP(S) OTIC BID 02/02/2018 03/08/2018 Inactive sertraline 50 mg tablet RxNorm: 488106 1 TABLET(S) PO QHS 01/25/2018 07/05/2018 Inactive Zithromax 200 mg/5 mL oral suspension RxNorm: 773680 12.5 Dilcia liter(s) PO QD 12/31/2017 01/04/2018 Inactive Pepcid 20 mg tablet RxNorm: 611070 TABLET(S) 1 TABLET(S) PO QHS 04/29/2018 Inactive famotidine 40 mg/5 mL (8 mg/mL) oral suspension RxNorm: 3102 74 2.5 Milliliter(s) PO QHS 12/28/2017 12/27/2017 Inactive famotidine 40 mg/5 mL (8 mg/mL) oral suspension RxNorm: 3102 74 2.5 Milliliter(s) PO QHS 12/28/2017 04/03/2018 Inactive Ciprodex 0.3 %-0.1 % ear drops,suspension RxNorm: 469345 Drop(s) 4 DROP(S) OTIC BID 12/27/2017 02/02/2018 Inactive meclizine 12.5 mg tablet RxNorm: 121897 1 Tablet(s) PO BID as neede d 12/23/2017 02/06/2018 Inactive change in quantity Protonix 40 mg tablet,delayed release RxNorm: 300168 1 Tablet(s) PO or per feeding tube BID 12/16/2017 07/13/2018 Inactive oxcarbazepine 300 mg/5 mL (60 mg/mL) oral suspension RxNorm: 549805 15 Milliliter(s) PO BID 12/16/2017 07/08/2018 Inactive meclizine 12.5 mg tablet RxNorm: 346416 1 Tablet(s) PO BID as neede d 12/15/2017 02/07/2018 Inactive change in quantity Pepcid 40 mg/5 mL (8 mg/mL) oral suspension RxNorm: 489290 5 Milliliter(s) PO QHS to replace nighttime pantoprazole dose 12/14/2017 12/27/2017 Inact марина meclizine 12.5 mg tablet RxNorm: 490918 1 Tablet(s) PO BID as neede d 12/13/2017 12/23/2017 Inactive diazepam 10 mg tablet RxNorm: 862379 1 Tablet(s) PO QHS as needed 0 12/02/2017 03/01/2018 Inactive prednisolone 15 mg/5 mL oral solution RxNorm: 186701 5 Milliliter(s) PO BID for 3 days then 5ml daily for 3 days then 2.5ml daily for 3 days 12/02/2017 12/13/2017 Inactive sertraline 50 mg tablet RxNorm: 475289 1 Tablet(s) PO QHS 11/04/2017 01/24/2018 Inactive Ciprodex 0.3 %-0.1 % ear drops,suspension RxNorm: 503297 Drop(s) 4 DROP(S) OTIC BID 10/18/2017 10/31/2017 Inactive Ciprodex 0.3 %-0.1 % ear drops,suspension RxNorm: 011149 Drop(s) 4 DROP(S) OTIC BID 10/18/2017 12/27/2017 Inactive Singulair 10 mg tablet RxNorm: 977335 1 Tablet(s) PO QD 09/30/2017 Inactive diazepam 5 mg/5 mL (1 mg/mL) oral solution RxNorm: 378041 2.5 Milliliter(s) PO QD give additional 5 mg dose if seizure occurs 09/17/2017 No Stop Date A ctive Bactrim DS 800 mg-160 mg tablet RxNorm: 538487 1 Tablet(s) PO BID 0 09/17/2017 09/23/2017 Inactive Ciprodex 0.3 %-0.1 % ear drops,suspension RxNorm: 997285 4 DROP (S) OTIC BID 09/13/2017 10/18/2017 Inactive cefdinir 250 mg/5 mL oral suspension RxNorm: 032588 12 Milliliter(s) PO QD though PEG tube 08/06/2017 08/15/2017 Inactive sertraline 50 mg tablet RxNorm: 759216 1 Tablet(s) PO QHS 08/02/2017 11/04/2017 Inactive Ciprodex 0.3 %-0.1 % ear drops,suspension RxNorm: 631847 4 DROP (S) OTIC BID 07/22/2017 08/11/2017 Inactive Singulair 10 mg tablet RxNorm: 813866 1 Tablet(s) PO QD 06/30/2017 Inactive diazepam 10 mg tablet RxNorm: 585819 TAKE 1 TABLET BY M OUTH EVERY NIGHT AT BEDTIME NEEDED 06/04/2017 07/03/2017 Inactive oxcarbazepine 300 mg/5 mL (60 mg/mL) oral suspension RxNorm: 315360 15 MILLILITER(S) PO BID 05/03/2017 12/16/2017 Inactive sertraline 50 mg tablet RxNorm: 970867 1 Tablet(s) PO QHS 05/03/2017 08/02/2017 Inactive Protonix 40 mg tablet,delayed release RxNorm: 336016 1 Tablet(s) PO or per feeding tube BID 04/26/2017 12/16/2017 Inactive Ciprodex 0.3 %-0.1 % ear drops,suspension RxNorm: 065405 4 DROP (S) OTIC BID 04/26/2017 05/23/2017 Inactive Generlac 10 gram/15 mL oral solution RxNorm: 081214 Mil liliter(s) TAKE 15 ML BY MOUTH TWO-THREE TIMES DAILY 04/08/2017 03/03/2018 Inactive Singulair 10 mg tablet RxNorm: 894999 1 Tablet(s) PO QD 03/03/2017 Inactive diazepam 10 mg tablet RxNorm: 031356 1 Tablet(s) PO QHS as needed 0 02/15/2017 06/04/2017 Inactive Singulair 10 mg tablet RxNorm: 819052 1 Tablet(s) PO QD 12/01/2016 Inactive Diflucan 150 mg tablet RxNorm: 869787 Tablet(s) Give 1 tab PO now and then repeat dose in 5 days 11/10/2016 03/31/2017 Inactive Zithromax 200 mg/5 mL oral suspension RxNorm: 917087 12.5 Dilcia liter(s) PO QD 11/10/2016 11/14/2016 Inactive Singulair 10 mg tablet RxNorm: 358285 TAKE 1 TABLET BY MOUTH ON CE DAILY 11/02/2016 12/01/2016 Inactive diazepam 10 mg tablet RxNorm: 015039 TAKE 1 TABLET BY M OUTH EVERY NIGHT AT BEDTIME NEEDED 10/21/2016 11/19/2016 Inactive sertraline 50 mg tablet RxNorm: 344353 1 Tablet(s) PO QHS 10/12/2016 01/09/2017 Inactive fluconazole 100 mg tablet RxNorm: 123020 1 Tablet(s) PO QD 09/23/19 17 09/24/2016 Inactive fluconazole 100 mg tablet RxNorm: 752387 1 Tablet(s) PO QD 09/23/19 17 09/21/2016 Inactive Bactrim DS 800 mg-160 mg tablet RxNorm: 807771 1 Tablet(s) PO BID 0 09/10/2016 09/09/2016 Inactive Bactrim DS 800 mg-160 mg tablet RxNorm: 453446 1 Tablet(s) PO BID 0 09/10/2016 09/16/2016 Inactive oxcarbazepine 300 mg/5 mL (60 mg/mL) oral suspension RxNorm: 473856 15 Milliliter(s) PO BID 09/07/2016 03/05/2017 Inactive sertraline 50 mg tablet RxNorm: 963991 1 Tablet(s) PO QHS 07/06/2016 10/03/2016 Inactive Pepcid 20 mg tablet RxNorm: 948528 Tablet(s) 1 TABLET(S) PO QHS 08/201603/08/2017 Inactive sertraline 50 mg tablet RxNorm: 913539 1 Tablet(s) PO QHS 06/08/2016 05/03/2017 Inactive Generlac 10 gram/15 mL oral solution RxNorm: 143263 Mil liliter(s) TAKE 15 ML BY MOUTH TWO-THREE TIMES DAILY 06/08/2016 09/08/2016 Inactive Pepcid 20 mg tablet RxNorm: 607369 1 TABLET(S) PO QHS 06/04/201607/2016 Inactive fluconazole 100 mg tablet RxNorm: 695491 1 Tablet(s) QD through PEG tube 05/13/2016 12/01/2017 Inactive Diflucan 150 mg tablet RxNorm: 905441 Give 1 tab PO now and then repeat dose in 5 days 03/19/2016 11/09/2016 Inactive ceftriaxone 1 gram solution for injection RxNorm: 6035166 1 Gram(s) IM QD Wednesday and Wednesday03/19/2016 11/09/2016 Inactive lidocaine 10 mg/mL (1 %) injection solution RxNorm: 1469983 Use as directed to reconstitute Rocephin when needed 03/19/2016 12/13/2017 Inactive Generlac 10 gram/15 mL oral solution RxNorm: 467555 JOE E 15 ML BY MOUTH TWO- THREE TIMES DAILY 03/19/2016 06/07/2016 Inactive oxcarbazepine 300 mg/5 mL oral suspension RxNorm: 510670 15 Milliliter(s) PO BID 03/13/2016 09/07/2016 Inactive Ciprodex 0.3 %-0.1 % ear drops,suspension RxNorm: 850354 4 DROP (S) OTIC BID 03/09/2016 03/15/2016 Inactive cefdinir 250 mg/5 mL oral suspension RxNorm: 620052 11. 75 Milliliter(s) PO QD though PEG tube 03/02/2016 03/08/2016 Inactive cefdinir 250 mg/5 mL oral suspension RxNorm: 941310 11. 75 Milliliter(s) PO QD though PEG tube 02/24/2016 03/01/2016 Inactive cefdinir 250 mg/5 mL oral suspension RxNorm: 621852 11. 75 Milliliter(s) PO QD though PEG tube 02/24/2016 02/23/2016 Inactive Ciprodex 0.3 %-0.1 % ear drops,suspension RxNorm: 567968 4 Drop (s) OTIC BID 02/24/2016 03/01/2016 Inactive Generlac 10 gram/15 mL oral solution RxNorm: 477089 JOE E 15 ML BY MOUTH TWICE DAILY 02/17/2016 03/18/2016 Inactive Generlac 10 gram/15 mL oral solution RxNorm: 109987 15 Millilit er(s) PO BID 01/23/2016 02/16/2016 Inactive Pepcid 20 mg tablet RxNorm: 199922 1 TABLET(S) PO QHS 01/13/201605/07 Inactive Ciprodex 0.3 %-0.1 % ear drops,suspension RxNorm: 103736 4 Drop (s) OTIC BID 12/23/2015 12/29/2015 Inactive sertraline 50 mg tablet RxNorm: 435766 1 Tablet(s) PO QHS 12/16/2015 06/07/2016 Inactive Zithromax 500 mg tablet RxNorm: 130224 1 Tablet(s) PO QD 12/16/2015 0 12/22/2015 Inactive Pepcid 20 mg tablet RxNorm: 731252 1 Tablet(s) PO QHS 12/16/201501/02 Inactive Zithromax 500 mg tablet RxNorm: 974629 1 Tablet(s) PO QD 11/12/2015 0 11/18/2015 Inactive Singulair 10 mg tablet RxNorm: 340052 1 Tablet(s) PO BID 10/16/2015 0 11/11/2015 Inactive diazepam 10 mg tablet RxNorm: 897991 1 Tablet(s) PO QHS 10/07/2015 Inactive diazepam 10 mg tablet RxNorm: 435980 1 Tablet(s) PO QHS 10/07/2015 Inactive fexofenadine 30 mg/5 mL oral suspension RxNorm: 872495 10 Milliliter(s) PO one to two times daily PRN allergies 09/20/2015 12/15/2015 Inactive ceftriaxone 1 gram solution for injection RxNorm: 9139317 1 Gram (s) IM QD 09/20/2015 09/21/2015 Inactive Ciprodex 0.3 %-0.1 % ear drops,suspension RxNorm: 551854 4 Drop (s) OTIC BID 09/20/2015 10/03/2015 Inactive Protonix 40 mg tablet,delayed release RxNorm: 303643 1 Tablet(s) PO or per feeding tube BID 08/21/2015 12/18/2015 Inactive Carafate 100 mg/mL oral suspension RxNorm: 765797 10 Mi lliliter(s) Miscellaneous per feeding tube AC & HS 08/21/2015 09/19/2015 Inactive Zyrtec 10 mg tablet RxNorm: 6226505 1 Tablet(s) PO QD No Start Date Active diazepam 20 mg rectal kit RxNorm: 412560 RTL as needed No Start Date Active ondansetron HCl 4 mg/5 mL oral solution RxNorm: 388423 10 Milliliter(s) PO as needed and through tube No Start Date Active sertraline 50 mg tablet RxNorm: 048200 1 Tablet(s) PO QD No Start D ate 12/15/2015 Inactive Brittany 180 mg tablet RxNorm: 838544 1 Tablet(s) PO QD No Start Date 06/12/2018 Inactive Generlac 10 gram/15 mL oral solution RxNorm: 307546 15 Millilit er(s) PO BID No Start Date 01/22/2016 Inactive oxcarbazepine 300 mg/5 mL oral suspension RxNorm: 971373 13.5 Milliliter(s) PO QAM and 15ml in the evening No Start Date 12/15/2015 Inactive Singulair 10 mg tablet RxNorm: 688858 1 Tablet(s) PO QD No Start Da te 11/30/2016 Inactive meclizine 12.5 mg tablet RxNorm: 717265 1 Tablet(s) PO TID as needed for dizziness No Start Date 09/13/2017 Inactive meclizine 12.5 mg tablet RxNorm: 684999 1 Tablet(s) PO BID No Start Date 12/12/2017 Inactive fluconazole 100 mg tablet RxNorm: 322622 1 Tablet(s) QD through PEG tube No Start Date 05/12/2016 Inactive Lortab Elixir 10 mg-300 mg/15 mL oral solution RxNorm: 72641 45 8 PO Q6-8H as needed No Start Date 10/22/2019 Inactive Flomax 0.4 mg capsule RxNorm: 095023 1 Capsule(s) PO QD No Start Da te 06/12/2018 Inactive diazepam 10 mg tablet RxNorm: 288750 1 Tablet(s) PO QHS as needed N o Start Date 02/14/2017 Inactive Generlac 10 gram/15 mL oral solution RxNorm: 997944 15 Milliliter(s) PO two to three times daily No Start Date 03/02/2018 Inactive oxcarbazepine 300 mg/5 mL oral suspension RxNorm: 166453 15 Milliliter(s) PO BID No Start Date 12/15/2017 Inactive Medication Administered No Medication Administered data Immunizations Vaccine Codes Date Status Influenza CVX: 141 04/21/2019 Results No Results data Procedures Procedure Codes Date DEXAMETHASONE SODIUM PHOS CPT-4: J1100 10/06/2019 THER/PROPH/DIAG INJ SC/IM CPT-4: 61381 10/06/2019 DEXAMETHASONE SODIUM PHOS CPT-4: J1100 05/03/2019 THER/PROPH/DIAG INJ SC/IM CPT-4: 30381 05/03/2019 CEFTRIAXONE SODIUM INJECTION CPT-4: J0696 03/19/2016 THER/PROPH/DIAG INJ SC/IM CPT-4: 11833 03/19/2016 DEXAMETHASONE SODIUM PHOS CPT-4: J1100 11/12/2015 THER/PROPH/DIAG INJ SC/IM CPT-4: 00300 11/12/2015 CEFTRIAXONE SODIUM INJECTION CPT-4: J0696 09/20/2015 THER/PROPH/DIAG INJ SC/IM CPT-4: 86237 09/20/2015 THER/PROPH/DIAG INJ SC/IM CPT-4: 09916 09/10/2015 METHYLPREDNISOLONE 40 MG INJ CPT-4: J1030 09/10/2015 TRIAMCINOLONE ACET INJ NOS CPT-4: J3301 09/10/2015 Vital Signs Date Vital 07/25/2019 Blood Pressure 1: 116/80 Code: 8480-6 BMI: 23.2 Code: 11569-8 Heart Rate 1: 81 bpm Height: 4'5" Respiratory Rate: 16 bpm SpO2: 100% Tempera ture: 36.8 (C) / 98.2 (F) Weight: 92 lbs 06/12/2019 Blood Pressure 1: 112/74 Code: 8480-6 BMI: 23.2 Code: 64668-3 Heart Rate 1: 102 bpm Height: 4'5" Respiratory Rate: 20 bpm SpO2: 95% Tempera ture: 37.0 (C) / 98.6 (F) Weight: 92 lbs 05/08/2019 Blood Pressure 1: 114/72 Code: 8480-6 Heart Rate 1: 104 bpm Respiratory Rate: 20 bpm SpO2: 96% Temperature: 36.8 (C) / 98.2 (F) 05/03/2019 Blood Pressure 1: 124/80 Code: 8480-6 Heart Rate 1: 115 bpm SpO2: 97% Temperature: 36.4 (C) / 97.5 (F) Weight: 91 lbs 11/25/2018 Blood Pressure 1: 132/82 Code: 8480-6 Heart Rate 1: 124 bpm Temperature: 37.0 (C) / 98.6 (F) Weight: 91 lbs 06/13/2018 Blood Pressure 1: 104/70 Code: 8480-6 Heart Rate 1: 84 bpm Respiratory Rate: 20 bpm SpO2: 92% Temperature: 36.6 (C) / 97.8 (F) We ight: 94 lbs 01/04/2018 Blood Pressure 1: 100/66 Code: 8480-6 Heart Rate 1: 88 bpm Respiratory Rate: 24 bpm SpO2: 98% Temperature: 36.6 (C) / 97.9 (F) 12/31/2017 Blood Pressure 1: 96/48 Code: 8480-6 Heart Rate 1: 96 bpm Respiratory Rate: 22 bpm SpO2: 97% Temperature: 36.4 (C) / 97.6 (F) Weight: 95 lbs 12/14/2017 Blood Pressure 1: 124/74 Code: 8480-6 Heart Rate 1: 126 bpm Temperature: 36.8 (C) / 98.3 (F) Weight: 98 lbs 12/02/2017 Blood Pressure 1: 146/92 Code: 8480-6 Heart Rate 1: 126 bpm Temperature: 36.8 (C) / 98.3 (F) Weight: 95 lbs 10/12/2017 Heart Rate 1: 92 bpm Temperature: 36.7 (C) / 98. 1 (F) Weight: 95 lbs 09/17/2017 Blood Pressure 1: 114/68 Code: 8480-6 Heart Rate 1: 104 bpm Temperature: 36.7 (C) / 98.0 (F) 08/06/2017 Blood Pressure 1: 122/88 Code: 8480-6 Heart Rate 1: 84 bpm Respiratory Rate: 24 bpm SpO2: 96% Temperature: 36.6 (C) / 97.8 (F) We ight: 94 lbs 04/01/2017 Blood Pressure 1: 92/60 Code: 8480-6 Heart Rate 1: 92 bpm Temperature: 37.0 (C) / 98.6 (F) Weight: 90 lbs 03/01/2017 Blood Pressure 1: 114/72 Code: 8480-6 Heart Rate 1: 92 bpm Temperature: 36.8 (C) / 98.2 (F) Weight: 88 lbs 11/10/2016 Blood Pressure 1: 124/78 Code: 8480-6 Heart Rate 1: 10 0 bpm Height: Respiratory Rate: 20 bpm SpO2: 95% Temperature: 36.9 (C) / 98.4 (F) We ight: 86 lbs 08/13/2016 Blood Pressure 1: 114/68 Code: 8480-6 Heart Rate 1: 72 bpm SpO2: 99% Temperature: 36.9 (C) / 98.4 (F) Weight: 86 lbs 03/27/2016 Heart Rate 1: 86 bpm Respiratory Rate: 24 bpm Te mperature: 36.4 (C) / 97.6 (F) Weight: 92 lbs 03/23/2016 Blood Pressure 1: 124/70 Code: 8480-6 Heart Rate 1: 10 0 bpm Height: Respiratory Rate: 20 bpm Temperature: 37.0 (C) / 98.6 (F) Weight: 03/19/2016 Heart Rate 1: 84 bpm Height: Respiratory Rate: 20 bpm S pO2: 97% Temperature: 36.4 (C) / 97.6 (F) Weight: 03/02/2016 Blood Pressure 1: 102/78 Code: 8480-6 Heart Rate 1: 98 bpm Height: Respiratory Rate: 24 bpm SpO2: 98% Temperature: 35.9 (C) / 96.7 (F) We ight: 02/24/2016 Blood Pressure 1: 114/78 Code: 8480-6 Heart Rate 1: 88 bpm Respiratory Rate: 22 bpm SpO2: 94% Temperature: 35.9 (C) / 96.7 (F) We ight: 12/16/2015 Blood Pressure 1: 116/68 Code: 8480-6 Heart Rate 1: 88 bpm Respiratory Rate: 20 bpm Temperature: 36.7 (C) / 98.1 (F) Weight: 89 lbs 11/12/2015 Blood Pressure 1: 106/64 Code: 8480-6 Heart Rate 1: 84 bpm Respiratory Rate: 24 bpm SpO2: 96% Temperature: 35.9 (C) / 96.7 (F) We ight: 94 lbs 10/16/2015 Heart Rate 1: 92 bpm Respiratory Rate: 22 bpm SpO2: 97 % Temperature: 36.4 (C) / 97.6 (F) Weight: 90 lbs 09/23/2015 Blood Pressure 1: 114/70 Code: 8480-6 Heart Rate 1: 76 bpm Respiratory Rate: 20 bpm Temperature: 36.6 (C) / 97.8 (F) Weight: 102 lbs 09/20/2015 Heart Rate 1: 92 bpm Height: Respiratory Rate: 22 bpm S pO2: 99% Temperature: 35.8 (C) / 96.4 (F) Weight: 102 lbs 09/10/2015 Heart Rate 1: 88 bpm Height: Respiratory Rate: 24 bpm Temperature: 36.3 (C) / 97.4 (F) Weight: 08/21/2015 Blood Pressure 1: 114/70 Code: 8480-6 BMI: 23.1 Code: 42842-8 Heart Rate 1: 80 bpm Height: 4'6" Respiratory Rate: 20 bpm Temperature: 36 .5 (C) / 97.7 (F) Weight: 96 lbs Functional Status No Functional Status data Reason For Visit Reason For Visit Effective Dates Notes follow up 10/23/2019 nasal allergies 10/05/2019 postnasal drip 07/25/2019 well woman exam (18-39 years) 06/12/2019 Annual Wel lness follow up 05/08/2019 seizure 05/03/2019 decreased fluids, ur ination, and decrease in appetite. pain, generalized 11/25/2018 Mother says patient is just off with increased agitation. She acts like she is in pain somewhere seizure 06/13/2018 gets these when she does not feel well follow up 01/04/2018 Patient was seen las t Wednesday for acute bronchitis. Patient given zithromax and to continue allergy medications. She has been having trouble urinating intermittently this weekend. According to mother, has not urinated since 0345 this am. She has also been vomiting and irritable/uncomfortable. They were able to give her her seizure medications last night. fatigue 12/31/2017 Per mother patient h as been going "down hill for the last week". She only seems to perk up when given prednisone. She is more lethargic, is drooling more, and not wanting to eat. She is also pulling/picking at both of her ears nasal allergies 12/14/2017 seizure 12/02/2017 otalgia 10/12/2017 seizure 09/17/2017 Mother has concerns of UTI or ear infection. Stated she has had weight increase so seizure medication may need adjusted fussiness 08/06/2017 follow up 04/01/2017 vomiting 03/01/2017 nasal discharge 11/10/2016 Mother has concerns of sore throat due to not eating as well follow up 08/13/2016 rash 03/27/2016 follow up 03/23/2016 urinary retention/hesitancy 03/19/2016 Mom states s he has hving increased episodes follow up 03/02/2016 Patient finished off the Cephelexin seizure 02/24/2016 follow up 12/16/2015 4mo fwup follow up 11/12/2015 Patient's mother sta matty she messes with her ears and lip quivers with discomfort. Patient was prescribed Singulair last visit but mother does not want to proceed with that at this time follow up 10/16/2015 Patient's mother sta matty she has been pulling at ears nonstop. She inquired about possibly getting allergy injections weekly or being tested. follow up 09/23/2015 follow up 09/20/2015 otalgia 09/10/2015 ~generic 08/21/2015 New Patient----estab lishing visit Encounters Encounter Performer Location Codes Date ([id number]) OFFICE/OUTPATIENT VISIT EST Diagnosis: Otalgia, bilateral[ICD10: H92.03] Fatou Jeromedi [employer] CPT-4: 30999 10/23/2019 ([id number]) NURSE/OUTPATIENT VISIT EST Diagnosis: Allergic rhinitis, unspecified[ICD10: J30.9] Keily LINARES [employer] CPT-4: 86706 10/06/2019 ([id number]) OFFICE/OUTPATIENT VISIT EST Diagnosis: Allergic rhinitis[ICD10: J30.9] Fatou Jeromedi [employer] CPT-4: 46000 10/05/2019 ([id number]) OFFICE/OUTPATIENT VISIT EST Diagnosis: Sinusitis[ICD10: J32.9] Fatou Jemimaleno LINARES [employer] CPT-4: 73347 07/25/2019 ([id number]) PREV VISIT EST AGE 18-39 Diagnosis: Encounter for general adult medical examination with abnormal findings[ICD10: Z00.01] Diagnosis: Chronic pancreatitis[ICD10: K86.1] Diagnosis: Cerebral palsy, unspecified[ICD10: G80.9] Keily LINARES SAlicia [employer] CPT-4: 85245 06/12/2019 ([id number]) OFFICE/OUTPATIENT VISIT EST Diagnosis: Pneumonia, organism unspecified[ICD10: J18.9] Diagnosis: Breast mass, right[ICD10: N63.10] Keily ARANGO [employer] [facility] CPT-4: 29178 05/08/2019 ([id number]) OFFICE/OUTPATIENT VISIT EST Diagnosis: Allergic rhinitis due to pollen[ICD10: J30.1] Diagnosis: Otitis media, unspecified, right ear[ICD10: H66.91] Fatou ARANGO [employer] [facility] CPT-4: 95808 05/03/2019 ([id number]) OFFICE/OUTPATIENT VISIT EST Diagnosis: Irritability and anger[ICD10: R45.4] Nataliia ARANGO [employer] [facility] CPT-4: 03692 11/25/2018 ([id number]) OFFICE/OUTPATIENT VISIT EST Diagnosis: Acute suppurative otitis media without spontaneous rupture of ear drum, bilateral[ICD10: H66.003] Fatou ARANGO [employer] [facility] CPT-4: 22115 06/13/2018 ([id number]) OFFICE/OUTPATIENT VISIT EST Diagnosis: Other fatigue[ICD10: R53.83] Diagnosis: Anuria and oliguria[ICD10: R34] Diagnosis: Acute gastritis without bleeding[ICD10: K29.00] Fatou ARANGO [employer] [facility] CPT-4: 70139 01/04/2018 ([id number]) OFFICE/OUTPATIENT VISIT EST Diagnosis: Acute bronchitis, unspecified[ICD10: J20.9] Fatou ARANGO [employer] [facility] CPT-4: 94052 12/31/2017 ([id number]) PREV VISIT EST AGE 18-39 Diagnosis: Encounter for general adult medical examination without abnormal findings[ICD10: Z00.00] Diagnosis: Severe intellectual disabilities[ICD10: F72] Diagnosis: Allergic rhinitis due to pollen[ICD10: J30.1] Diagnosis: Epilepsy, unspecified, intractable, without status epilepticus[ICD10: G40.919] Diagnosis: Gastro-esophageal reflux disease without esophagitis[ICD10: K21.9] [facility]: 32087 12/14/2017 ([id number]) OFFICE/OUTPATIENT VISIT EST Diagnosis: Allergic rhinitis due to pollen[ICD10: J30.1] Diagnosis: Epilepsy, unspecified, intractable, without status epilepticus[ICD10: G40.919] [facility]ily [facility] CPT-4: 88671 12/02/2017 ([id number]) OFFICE/OUTPATIENT VISIT EST Diagnosis: Other allergic rhinitis[ICD10: J30.89] Fatou [facility] CPT-4: 93132 10/12/2017 OFFICE/OUTPATIENT VISIT EST Diagnosis: Acute suppurative otitis media without spontaneous rupture of ear drum, recurrent, left ear[ICD10: H66.005] Diagnosis: Epilepsy, unspecified, intractable, without status epilepticus[ICD10: G40.919] Diagnosis: Hesitancy of micturition[ICD10: R39.11] Fatou [facility] CPT-4: 19154 09/17/2017 OFFICE/OUTPATIENT VISIT EST Diagnosis: Otitis media, unspecified, left ear[ICD10: H66.92] Fatou [facility] CPT-4: 74116 08/06/2017 ([id number]) OFFICE/OUTPATIENT VISIT EST Diagnosis: Vertigo of central origin, 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.49] Diagnosis: Dizziness and giddiness[ICD10: R42] Keily [facility] CPT-4: 84650 04/01/2017 OFFICE/OUTPATIENT VISIT EST Diagnosis: Vomiting, unspecified[ICD10: R11.10] Diagnosis: 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)[ICD10: K56.5] Diagnosis: Personal history of urinary calculi[ICD10: Z87.442] Emely Hdz KEILY [facility] CPT-4: 17339 03/01/2017 ([id number]) OFFICE/OUTPATIENT VISIT EST Diagnosis: Allergic rhinitis due to pollen[ICD10: J30.1] Diagnosis: Acute and subacute allergic otitis media (mucoid) (sanguinous) (serous), left ear[ICD10: H65.112] Keily [facility] CPT-4: 66327 11/10/2016 ([id number]) OFFICE/OUTPATIENT VISIT EST Diagnosis: 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] Diagnosis: Unspecified ovarian cyst, right side[ICD10: N83.201] Diagnosis: Cyst of kidney, 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] Keily [facility] CPT-4: 40929 08/13/2016 ([id number]) OFFICE/OUTPATIENT VISIT EST Diagnosis: Rash and other nonspecific skin eruption[ICD10: R21] Aziza Magallanes KEILY [facility] CPT-4: 42909 03/27/2016 ([id number]) OFFICE/OUTPATIENT VISIT EST Diagnosis: Urinary tract infection, site not specified[ICD10: N39.0] Keily [facility] CPT-4: 33042 03/23/2016 ([id number]) OFFICE/OUTPATIENT VISIT EST Diagnosis: Retention of urine, unspecified[ICD10: R33.9] Diagnosis: Dysuria[ICD10: R30.0] Diagnosis: Constipation, unspecified[ICD10: K59.00] Aziza LAWTON Diamante [facility] CPT-4: 52595 03/19/2016 ([id number]) OFFICE/OUTPATIENT VISIT EST Diagnosis: Acute sinusitis, unspecified[ICD10: J01.90] Keily ARANGO [facility] CPT-4: 47120 03/02/2016 OFFICE/OUTPATIENT VISIT EST Diagnosis: Other fatigue[ICD10: R53.83] Diagnosis: Retention of urine, unspecified[ICD10: R33.9] Diagnosis: Dysuria[ICD10: R30.0] Diagnosis: Generalized abdominal pain[ICD10: R10.84] 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] Aziza LÓPEZQUELINE Diamante [facility] CPT-4: 55466 02/24/2016 ([id number]) OFFICE/OUTPATIENT VISIT EST Diagnosis: Chronic mucoid otitis media, right ear[ICD10: H65.31] Diagnosis: Allergic rhinitis, unspecified[ICD10: J30.9] Diagnosis: 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] Keily ARANGO [facility] CPT-4: 30484 12/16/2015 ([id number]) OFFICE/OUTPATIENT VISIT EST Diagnosis: Allergic rhinitis, unspecified[ICD10: J30.9] Diagnosis: Acute recurrent sinusitis, unspecified[ICD10: J01.91] Keily ARANGO [facility] CPT-4: 77617 11/12/2015 ([id number]) OFFICE/OUTPATIENT VISIT EST Diagnosis: Other seasonal allergic rhinitis[ICD10: J30.2] Diagnosis: Nausea with vomiting, unspecified[ICD10: R11.2] Diagnosis: Epigastric pain[ICD10: R10.13] Aziza ARANGO [facility] CPT-4: 08685 10/16/2015 OFFICE/OUTPATIENT VISIT EST Diagnosis: Encounter for follow-up examination after completed treatment for conditions other than malignant neoplasm[ICD10: Z09] Diagnosis: Generalized abdominal pain[ICD10: R10.84] Keily [facility] CPT-4: 04010 09/23/2015 ([id number]) OFFICE/OUTPATIENT VISIT EST Diagnosis: Otitis media, unspecified, right ear[ICD10: H66.91] Diagnosis: Constipation, unspecified[ICD10: K59.00] Diagnosis: Allergic rhinitis, unspecified[ICD10: J30.9] Aziza [facility] CPT-4: 32887 09/20/2015 OFFICE/OUTPATIENT VISIT EST Diagnosis: Allergic rhinitis, unspecified[ICD10: J30.9] Diagnosis: Unspecified perforation of tympanic membrane, right ear[ICD10: H72.91] Bibiana Garg KEILY ARANGO [facility] CPT-4: 69691 09/10/2015 OFFICE/OUTPATIENT VISIT NEW Diagnosis: Epilepsy, unspecified, intractable, without status epilepticus[ICD10: G40.919] Diagnosis: Gastric ulcer, unspecified as acute or chronic, without hemorrhage or perforation[ICD10: K25.9] Diagnosis: Severe intellectual disabilities[ICD10: F72] Keily LONGORIA CPT-4: 25975 08/21/2015 Plan of Care Planned Activity Notes Codes Status Date Visit Diagnosis Plan: Otalgia, bilateral Discussion: d ue to patient's history of recurrent ear infections and her decreased appetite/increased seizure activity, cefdinir prescribed to cover for ear infection/throat/urine infection. lortab w as refilled for patient as well since she is not sleeping well due to pain and very fussy. instructed to not give along with tylenol but can alternate tylenol and lortab every 6 hours to reduce risk of overmedication of tylenol. patient's previous lortab rx over a year ago and mother will only give to her on rare occasions. ICD-9 : 388.70 ICD-10 : H92.03 10/23/2019 Appointment: Fatou Onofre [address] [id number] pt requested [facility] TELEMEDICINE 10/23/2019 Patient Education: cefdinir- [employer] [id number] [email or web address]/resources/getResource/61/[email or web address]-[email or web address] Completed 10/23/2019 Appointment: Keily Arango [facility]el[facility] [phone] [id number] [facility] 10/06/2019 Visit Diagnosis Plan: Allergic rhinitis Discussion: in structed to bring patient in for injection. informed mother that we can give patient a shot in the parking lot so no one needs to come into the building. mother reports that she will br ing her in the morning to prevent insomnia from the injection. call office on wednesday if worsening or no improvement. continue to stay away from others to avoid getting more sick. ICD-9 : 477.9 ICD-10 : J30.9 10/05/2019 Appointment: Fatou Onofre [address] [id number] TELEMEDICINE 10/05/2019 Visit Diagnosis Plan: Sinusitis Discussion: due to [facility] of illness and symptoms, cefdinir prescribed to take as directed. call office with any new or worsening symptoms. ICD-9 : 473.9 ICD-10 : J32.9 07/25/2019 Appointment: Fatou Onofre [address] ACUTE ILLNESS 07/25/2019 Patient Education: cefdinir- [employer] C[employer]on [id number] [email or web address]/[email or web address]/resources/getResource/61/[email or web address] Completed 07/25/2019 Visit Diagnosis Plan: Chronic pancreatitis Discussion: Continue zenpep and recheck CMP with amylase/lipase in 1 month ICD-9 : 577.1 ICD-10 : K86.1 06/12/2019 Appointment: Keily Arango WPtel: [facility] Annual Well Visit 06/12/2019 Visit Diagnosis Plan: Breast mass, right Discussion: B reast US as patient would not be able to accomplish mammogram--could not understand holding breath and the discomfort with the mammogram would be very distressing to the patient Did also discuss breast MRI but patient would be unable to hold still for MRI unless she was sedated Discussed biopsy if lesion looks suspicious but will await US results and then discuss options ICD-9 : 611.72 ICD-10 : N63.10 05/08/2019 Visit Diagnosis Plan: Pneumonia, organism unspecified Discussion: Finish abx ICD-9 : 486 ICD-10 : J18.9 05/08/2019 Appointment: Keily Arango WPtel: [phone] [facility] Hospital Follow Up 05/08/2019 Visit Diagnosis Plan: Otitis media, unspecified, right ear Discussion: amoxil bid for 10 days. discussed that most likely cause of her decrease in appetite, increase in drooling, and decrease in sleep. continue with ciprodex. call office with any new or worsening symptoms or if no improvement by wednesday. to ED over the weekend with worsening ICD-9 : 382.9 ICD-10 : H66.91 05/03/2019 Visit Diagnosis Plan: Allergic rhinitis due to pollen Discussion: dexamethasone 4 mg im given in office. ICD-9 : 477.9 ICD-10 : J30.1 05/03/2019 Appointment: Fatou Onofre [address] ACUTE ILLNESS 05/03/2019 Patient Education: amoxicillin- [employer] C[employer]on [id number] [email or web address].Wyle/samplemd/resources/getResource/61/[email or web address] Completed 05/03/2019 Visit Diagnosis Plan: Irritability and anger Discussio n: Patient's mother and caregiver state she has been much more irritable over the past week. Usually her irritability indicates pain somewhere. Her UA was clear yesterday. Exam benign- ears and throat ok no pain with palpation of belly and lungs clear. Patient to proceed with labwork- CBC, CMP, ESR. Mother states understanding. ICD-9 : 799.22 ICD-10 : R45.4 11/25/2018 Appointment: Nataliia Hsieh [facility] [address] ACUTE ILLNESS 11/25/2018 Visit Diagnosis Plan: Acute suppurative otitis media without spontaneous rupture of ear drum, bilateral Discussion: cefdinir for 10 days. if wor sening symptoms later this week, call clinic. push fluids and tylenol/ibuprofen prn pain or fever. ICD-9 : 382.00 ICD-10 : H66.003 06/13/2018 Appointment: Fatou Onofre [address] [address] ACUTE ILLNESS 06/13/2018 Visit Diagnosis Plan: Anuria and oliguria Discussion: patietn sent to hospital for outpatient straight cath with C&S if indicated. will review initial urine and order additional treatments as needed. ICD-9 : 788.5 ICD-10 : R34 01/04/2018 Visit Diagnosis Plan: Acute gastritis without bleeding Discussion: see other plans. ICD-9 : 535.00 ICD-10 : K29.00 01/04/2018 Visit Diagnosis Plan: Other fatigue Discussion: conges tion and ears improved since last visit. but see other plan. ICD-9 : 780.79 ICD-10 : R53.83 01/04/2018 Appointment: Fatou Onofre 504 [facility] ACUTE ILLNESS 01/04/2018 Patient Education: Patient Medication Summary Completed 01/04/2018 Visit Diagnosis Plan: Acute bronchitis, unspecified Di scussion: zithromax prescribed to take as directed. continue with allergy meds including flonase to help dry congestion. call office next week if new or worsening symptoms. ICD-9 : 466.0 ICD-10 : J20.9 12/31/2017 Appointment: Fatou Onofre [address] [address] ACUTE ILLNESS 12/31/2017 Patient Education: Patient Medication Summary Completed 12/31/2017 Visit Diagnosis Plan: Epilepsy, unspecif ied, intractable, without status epilepticus Discussion: Stable on current regimen ICD-9 : 345.91 ICD-10 : G40.919 12/14/2017 Visit Diagnosis Plan: Encounter for [facility] medical examination without abnormal findings Discussion: Had recent lab done Follow Up: 3 months ICD-9 : V70.9 ICD-10 : Z00.00 12/14/2017 Visit Diagnosis Plan: Allergic rhinitis due to pollen Discussion: Continue current meds Change night time protonix to pepcid for total histamine blockade ICD-9 : 477.9 ICD-10 : J30.1 12/14/2017 Appointment: Keily Arango WPtel: [address] [place] [address] CHECK UP 12/14/2017 Patient Education: Patient Medication Summary Completed 12/14/2017 Visit Diagnosis Plan: Epilepsy, unspecif ied, intractable, without status epilepticus Discussion: Lab discussed If any infecti on, looks viral with WBC count being minimally decreased--will see if improves with above treatment and have fwup in 2weeks ICD-9 : 345.91 ICD-10 : G40.919 12/02/2017 Visit Diagnosis Plan: Allergic rhinitis due to pollen Discussion: Prednisilone taper and will see if symptoms improved ICD-9 : 477.9 ICD-10 : J30.1 12/02/2017 Appointment: Keily Arango WPtel: [address] [place] [address] ACUTE ILLNESS 12/02/2017 Patient Education: Patient Medication Summary Completed 12/02/2017 Visit Diagnosis Plan: Other allergic rhinitis Discussi on: symptoms most likely caused from allergies. patient sent to hospital for decadron injection. instructed to restart patient's flonase at home. if new or worsening symptoms, call or rtc. ICD-9 : 477.8 ICD-10 : J30.89 10/12/2017 Appointment: Fatou Onofre [address] [address] ACUTE ILLNESS 10/12/2017 Patient Education: Patient Medication Summary Completed 10/12/2017 Visit Diagnosis Plan: Acute suppurative otitis media without spontaneous rupture of ear drum, recurrent, left ear Discussion: bactrim ds bid for 10 days t o be given to cover for ear infection and uti. ICD-9 : 382.00 ICD-10 : H66.005 09/17/2017 Visit Diagnosis Plan: Hesitancy of micturition Discuss ion: bactrim ds bid for 10 days to cover uti and ear infection, no need for straight cath at this time but if no improvement, will perform straight cath. if worsening symptoms, go to ED. ICD-9 : 788.64 ICD-10 : R39.11 09/17/2017 Visit Diagnosis Plan: Epilepsy, unspecif ied, intractable, without status epilepticus Discussion: instructed mother and caregi vers to call us next week if no improvement. informed them that seizures most likely r/t infection but to call if no improvement after being on antibiotics. diazepam liquid refilled/called out for patient for seizure prevention/seizure management. if worsening symptoms over the weekend, go to hospital. ICD-9 : 345.91 ICD-10 : G40.919 09/17/2017 Appointment: Fatou Onofre [address] [facility] ACUTE ILLNESS 09/17/2017 Patient Education: Patient Medication Summary Completed 09/17/2017 Visit Diagnosis Plan: Otitis media, unspecified, left ear Discussion: cefdinir prescribed daily for 10 days. instructed to administer tylenol/ibuprofen for pain or fever. if no improvement, or worsening symptoms, call or rtc. ICD-9 : 380.14 ICD-10 : H66.92 08/06/2017 Appointment: Fatou Onofre [address] [place], [place] [id number] ACUTE ILLNESS 08/06/2017 Patient Education: Patient Medication Summary Completed 08/06/2017 Patient Education: Patient Medication Summary Completed 08/02/2017 Patient Education: Patient Medication Summary Completed 04/21/2017 Care Plan: MRI BRAIN STEM W/O DYE LOINC : 04325-7 Pending 04/21/2017 Patient Education: Patient Medication Summary Completed 04/20/2017 Care Plan: MRI BRAIN STEM W/O DYE LOINC : 23252-0 Pending 04/20/2017 Visit Diagnosis Plan: Vertigo of central origin, unspe cified ear Discussion: Continue meclizine at 12.5mg po BID for 2 more weeks then go to 12.5mg daily for 2 weeks then 6.25mg daily for 2 weeks then stop Notify if any symptoms return with weaning process ICD-9 : 386.2 ICD-10 : H81.49 04/01/2017 Appointment: Keily Arango [facility]Ptel: [phone] [facility] FOLLOW UP 04/01/2017 Patient Education: Patient Medication Summary Completed 04/01/2017 Patient Education: Patient Medication Summary Completed 03/09/2017 Care Plan: CT HEAD/BRAIN W/O DYE LOINC : 88973-0 Pending 03/09/2017 Visit Plan: It's difficult to evaluate t his patient and level of distress. Sent to for labs: CBC, CMP, Amylase, Lipase, ESR, Cath UA CT of abdomen/pelvis w/wo contrast (IV), with oral If no abnormalities found, discussed to let us know if pain continues and vomiting continues or any change for the worse in condition. Has Zofran at home for nausea. Will await results to determine if additional medications indicated. 03/01/2017 Appointment: Emely Hdz WPtel: [phone] [facility] ACUTE ILLNESS 03/01/2017 Patient Education: Patient Medication Summary Completed 03/01/2017 Patient Education: Patient Medication Summary Completed 12/17/2016 Visit Diagnosis Plan: Acute and subacute allergic otitis media (mucoid) (sanguinous) (serous), left ear Discussion: Zithromax ICD-9 : 381.05 ICD-10 : H65.112 11/10/2016 Visit Diagnosis Plan: Allergic rhinitis due to pollen Discussion: Continue zyrtec/singulair ICD-9 : 477.9 ICD-10 : J30.1 11/10/2016 Appointment: Keily Arango WPtel: [address] [place] [address] ACUTE ILLNESS 11/10/2016 Patient Education: Patient Medication Summary Completed 11/10/2016 Patient Education: Patient Medication Summary Completed 09/07/2016 Care Plan: URINALYSIS AUTO W/O SCOPE [place] : 50073-1 Pending 09/07/2016 Visit Diagnosis Plan: Cyst of kidney, acquired Discuss ion: Renal US in 6mos to assess stability ICD-9 : 753.10 ICD-10 : N28.1 08/13/2016 Visit Diagnosis Plan: Calculus of kidney Discussion: F inraegan cipro Finish flomax Will observe for now since pain is resolved ICD-9 : 592.0 ICD-10 : N20.0 08/13/2016 Visit Diagnosis Plan: Unspecified ovarian cyst, right side Discussion: Pain resolved so will only get pelvic US if pain or vomiting return ICD-9 : 620.2 ICD-10 : N83.201 08/13/2016 Appointment: Keily Arango WPtel: [address] [place] [address] 08/12 confirmed-sp FOLLOW UP 08/13/2016 Patient Education: Patient Medication Summary Completed 08/13/2016 Patient Education: Patient Medication Summary Completed 05/19/2016 Care Plan: X-RAY EXAM OF FOOT left foot LOINC : 26 095-0 Pending 05/19/2016 Visit Plan: Discussed with Dr Conchita MAGANA C to be drawn Order sent to Will call with results 03/27/2016 Appointment: Aziza Magallanes [address] ACUTE ILLNESS 03/27/2016 Patient Education: Patient Medication Summary Completed 03/27/2016 Visit Plan: Go for dose of rocephin 1gm IM today and tomorrow then done Diflucan 150mg x1 today Discussed with mom via phone about urology fwup--she will talk with her and let us know 03/23/2016 Appointment: Keily Arangotel: [phone] [facility] 03/23 confirmed ~sl FOLLOW UP 03/23/2016 Patient Education: Patient Medication Summary Completed 03/23/2016 Visit Plan: Per Dr Arango, straight cat h for UA and culture today Ok to have a standing order for further UA needs at for straight cath Rocephin IM today and daily through Wednesday Mom has arranged a family friend that is an [employer] to give Wednesday and Sundays injections - rxs for rocephin and lido sent to [facility] cannot order the lido in the qty patient needs) Dr Arango wants patient to be re-evaluated on Wednesday in clinic Referral to Urology for recurrent UTIs and urinary retention - mom wants to research who she wants her sent to and let us know 03/19/2016 Appointment: Aziza Magallanes [address] [place] [address] ACUTE ILLNESS 03/19/2016 Patient Education: Patient Medication Summary Completed 03/19/2016 Visit Plan: 1 more week of cefdinir 03/02/2016 Appointment: Keily Arango WPtel: [facility] 03/02 confirmed~sl WORK IN 03/02/2016 Patient Education: Patient Medication Summary Completed 03/02/2016 Visit Plan: Mom reports after discussion of patient seeming uncomfortable with abdominal exam, that she has a history of eating objects - nail clippers, brisa needles, etc Will get CXR and abdominal/KUB Straight cath, cbc and cmp All ordered stat so hopefully can call mom back today with results Addendum: Results reviewed and Lab, CXR, Abdominal X-ray all normal but UA shows leukocytes and bacteria so called out omnicef to start today and will await urine culture results but will need seen if worsening 02/24/2016 Appointment: Aziza Magallanes [address] [place], [place] [id number] ACUTE ILLNESS 02/24/2016 Patient Education: Patient Medication Summary Completed 02/24/2016 Care Plan: CHEST X-RAY 2VW FRONTAL&LATL LOINC : 37521-3 Pending 02/24/2016 Care Plan: X-RAY EXAM OF ABDOMEN LOINC : 20380-8 Pending 02/24/2016 Visit Plan: Repeat zithromax x1 week Cip rodex to right ear x1 week Add Pepcid q HS x2-4 weeks for total histamine blockade and for extra stomach protection while on zithromax 12/16/2015 Appointment: Keily Arango WPtel: [phone] [facility] US 6/9 lm~sl 6/10 lm ~sl FOLLOW UP 12/16/2015 Patient Education: Patient Medication Summary Completed 12/16/2015 Patient Education: [facility] - Saving [employer] - Sertraline HCL - 18-64 - Dynamic Portal ID Completed 12/16/2015 Visit Plan: Saline nasal flushes prn. Ty lenol/Motrin prn headache. 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 - mom states Dr Jensen is aware of both of these issues Trial limiting certain foods - dairy, gluten, etc - while awaiting to get back into previous GI and GS specialist Mom will contact us with their names so we can help arrange updated office visits for Bel[facility] 10/16/2015 [facility]ointment: [facility] [facility] 10/16/2015 Patient Education: Patient Medication Summary Completed 10/16/2015 Appointment: [facility]anes [facility] [facility] [facility] canceled, feeling better CANCELED 016 Visit Plan: No further abx needed Go mariela k to [facility] for next 3 days and restart carafate Notify if abdominal pain worsens 09/23/2015 Appointment: Keily Arango WPtel: [phone] [facility] 09/19 confirmed-sp FOLLOW UP 09/23/2015 Patient Education: Patient Medication Summary Completed 09/23/2015 Visit Plan: Mom would prefer IM antibiot ic so the oral doesn't affect her stomach. She reports Dr Salgado has treated with rocephin IM x 3 days and Belkys has done well with that. Will get 1st dose of rocephin here - orders written for [facility] to given Rocephin tomorrow and Wednesday. Mom would prefer to get rx for that to be done at home since her is a Dr and that is what they have done in the past. Order sent to [facility] since [facility] does not have in stock. Recheck in office with Dr Arango early next week to see how the right ear is doing. Try changing zyrtec over to allergra to see if any more effective for her chronic allergies. If still failing, can try adding singulair as well. Mom to work on constipation issues at home - this is a chronic complaint and she has remedies proven effective in the past to try for now. 09/20/2015 Appointment: [facility] [facility] [facility] 09/20/2015 Patient Education: Patient Medication Summary Completed 09/20/2015 Visit Plan: Depo Medrol 40mg/ Kenalog 40 mg IM today Resume Ciprodex otic gtts. bid to Rt. ear 09/10/2015 Appointment: Bibiana Garg [facility]Ptel: [phone] [facility] 09/08 confirmed-sp ACUTE ILLNESS 09/10/2015 Patient Education: Patient Medication Summary Completed 09/10/2015 Visit Plan: Increase Protonix to 40mg po BID for 1month Continue carafate at q AC dosing for full month then wean off Jevity for 2 more days then advance diet if able Continue current meds 08/21/2015 Appointment: Keily Arango [facility]Ptel: [phone] [facility] [place] NEW PATIENT 08/21/2015 Patient Education: Patient Medication Summary Completed 08/21/2015 Instructions Comment . It's difficult to evaluate this patien t and level of distress. Sent to for labs: CBC, CMP, Amylase, Lipase, ESR, Cath UA CT of abdomen/pelvis w/wo contrast (IV), with oral If no abnormalities found, discussed to let us know if pain continues and vomiting continues or any change for the worse in condition. Has Zofran at home for nausea. Will await results to determine if additional medications indicated. . Discussed with Dr Arango CBC to be drawn Order sent to Will call with results . Go for dose of rocephin 1gm IM today a nd tomorrow then done Diflucan 150mg x1 today Discussed with mom via phone about urology fwup--she will talk with her and let us know . Per Dr Arango, straight cath for UA a nd culture today Ok to have a standing order for further UA needs at for straight cath Rocephin IM today and daily through Wednesday Mom has arranged a family friend that is an [employer] to give Wednesday and Sundays injections - rxs for rocephin and lido sent to [facility] cannot order the lido in the qty patient needs) Dr Arango wants patient to be re-evaluated on Wednesday in clinic Referral to Urology for recurrent UTIs and urinary retention - mom wants to research who she wants her sent to and let us know . 1 more week of cefdinir . Mom reports after discussion of patien t seeming uncomfortable with abdominal exam, that she has a history of eating objects - nail clippers, brisa needles, etc Will get CXR and abdominal/KUB Straight cath, cbc and cmp All ordered stat so hopefully can call mom back today with results Addendum: Results reviewed and Lab, CXR, Abdominal X-ray all normal but UA shows leukocytes and bacteria so called out omnicef to start today and will await urine culture results but will need seen if worsening . Repeat zithromax x1 week Ciprodex to right ear x1 week Add Pepcid q HS x2-4 weeks for total histamine blockade and for extra stomach protection while on zithromax . Saline nasal flushes prn. Tylenol/Motr in prn headache. Notify if persists/symptoms worsens Dexamethasone given . 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 No further abx needed Go back to jevity for next 3 days and restart carafate Notify if abdominal pain worsens . Mom would prefer IM antibiotic so the oral doesn't affect her stomach. She reports Dr Salgado has treated with rocephin IM x 3 days and Belkys has done well with that. Will get 1st dose of rocephin here - orders written for [facility] to given Rocephin tomorrow and Wednesday. Mom would prefer to get rx for that to be done at home since her is a Dr and that is what they have done in the past. Order sent to [facility] since [facility] does not have in stock. Recheck in office with Dr Arango early next week to see how the right ear is doing. Try changing zyrtec over to allergra to see if any more effective for her chronic allergies. If still failing, can try adding singulair as well. Mom to work on constipation issues at home - this is a chronic complaint and she has remedies proven effective in the past to try for now. . Depo Medrol 40mg/ Kenalog 40 mg IM tod ay Resume Ciprodex otic gtts. bid to Rt. ear . Increase Protonix to 40mg po BID for 1 month Continue carafate at q AC dosing for full month then wean off Jevity for 2 more days then advance diet if able Continue current meds Medical Equipment No Medical Equipment data Health Concerns Section Health Concerns data not found Goals Section Goals data not found Interventions Section Interventions data not found Health Status Evaluations/Outcomes Section Health Status Evaluations/Outcomes data not found Advance Directives No Advance Directive data
--- OUTSIDE RECORDS SUMMARY | 2019-11-10 19:27 | XMS REPORT | CCD ---
Author Author Belkys Arango D.O. 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 Name Role Phone Keily Arango D.O., PP Unavailable CCM Unavailable Summary Purpose Interface Exchange Insurance Providers Payer name Policy type / Coverage type Covered libertarian ID Effective Begin Date Effective End Date [employer] [facility] [place] Medicaid [id number] U nknown Family History Family History data not found Social History Social History Element Codes Description Effective Dates Marital status Unknown Single 08/21/2015 Employment Unknown Currently unemployed Physically handicapped 08/21/[address]: 872519228 Has never smoked or chewed tobacco 08/21/[address]: 403731104 Never drinks alcohol 2015 Allergies, Adverse Reactions, [...] Start Date Stop Date Status Fill Instructions Lortab Elixir 10 mg-300 mg/15 mL oral solution RxNorm: 95108 45 8 Milliliter(s) Oral Q6-8H as needed 10/23/2019 10/23/2019 Inactive cefdinir 250 mg/5 mL oral suspension RxNorm: 513200 12 Milliliter(s) Oral QD though PEG tube 10/23/2019 11/01/2019 Active Protonix 40 mg tablet,delayed release RxNorm: 479341 1 Tablet(s) Oral or per feeding tube two times a day 10/16/2019 04/12/2020 Active Zenpep 40,000 unit-126,000 unit-168,000 unit capsule,d elayed release RxNorm: 3165730 1 Capsule(s) Oral AC 10/16/2019 02/12/2020 Active Ciprodex 0.3 %-0.1 % ear drops,suspension RxNorm: 607794 SHAKE LIQUID AND INSTILL 4 DROPS IN AFFECTED EAR(S) TWICE DAILY 09/22/2019 10/15/2019 I nactive diazepam 10 mg tablet RxNorm: 029923 TAKE 1 TABLET BY M OUTH EVERY NIGHT AT BEDTIME NEEDED 09/11/2019 10/10/2019 Inactive meclizine 12.5 mg tablet RxNorm: 230090 TAKE 1 TABLET B Y MOUTH THREE TIMES DAILY NEEDED 08/31/2019 10/29/2019 Active Ciprodex 0.3 %-0.1 % ear drops,suspension RxNorm: 572141 SHAKE LIQUID AND INSTILL 4 DROPS IN AFFECTED EAR(S) TWICE DAILY 08/31/2019 09/07/2019 I nactive Ciprodex 0.3 %-0.1 % ear drops,suspension RxNorm: 573020 SHAKE LIQUID AND INSTILL 4 DROPS IN AFFECTED EAR(S) TWICE DAILY 08/11/2019 08/18/2019 I nactive meclizine 12.5 mg tablet RxNorm: 122080 TAKE 1 TABLET B Y MOUTH THREE TIMES DAILY NEEDED 08/04/2019 08/30/2019 Inactive cefdinir 250 mg/5 mL oral suspension RxNorm: 689851 12 Milliliter(s) Oral QD though PEG tube 07/25/2019 08/03/2019 Inactive Zenpep 40,000 unit-126,000 unit-168,000 unit capsule,d elayed release RxNorm: 8863764 1 Capsule(s) Oral AC 07/10/2019 10/15/2019 Inactive famotidine 20 mg tablet RxNorm: 558038 TAKE 1 TABLET BY MOUTH EVERY NIGHT AT BEDTIME 07/09/2019 01/04/2020 Active sertraline 50 mg tablet RxNorm: 355389 TAKE 1 TABLET BY MOUTH EVERY NIGHT AT BEDTIME 07/09/2019 09/06/2019 Inactive Zenpep 40,000 unit-126,000 unit-168,000 unit capsule,d elayed release RxNorm: 7532765 1 Capsule(s) Oral AC 06/12/2019 07/09/2019 Inactive Zenpep 40,000 unit-126,000 unit-168,000 unit capsule,d elayed release RxNorm: 1243332 1 Capsule(s) Oral AC 05/24/2019 05/23/2019 Inactive Zenpep 40,000 unit-126,000 unit-168,000 unit capsule,d elayed release RxNorm: 9156536 1 Capsule(s) Oral AC 05/24/2019 10/16/2019 Inactive Ciprodex 0.3 %-0.1 % ear drops,suspension RxNorm: 462873 DROP(S) 4 DROP(S) OTIC BID 05/22/2019 06/18/2019 Inactive oxcarbazepine 300 mg/5 mL (60 mg/mL) oral suspension RxNorm: 327415 15 Milliliter(s) Oral two times a day 05/08/2019 11/03/2019 Active meclizine 12.5 mg tablet RxNorm: 635803 1 TABLET(S) PO TID NEEDE D 05/05/2019 08/02/2019 Inactive change in quantity Zithromax 200 mg/5 mL oral suspension RxNorm: 279945 12.5 Dilcia liter(s) Oral QD 05/04/2019 05/09/2019 Inactive amoxicillin 400 mg/5 mL oral suspension RxNorm: 390609 10 Milliliter(s) Oral two times a day 05/03/2019 05/13/2019 Inactive Singulair 10 mg tablet RxNorm: 610289 1 TABLET(S) PO QD 03/28/2019 Inactive Macrobid 100 mg capsule RxNorm: 032242 1 Capsule(s) PO BID 03/16/2003/22/2019 Inactive meclizine 12.5 mg tablet RxNorm: 161966 1 Tablet(s) PO TID as neede d 03/10/2019 05/04/2019 Inactive change in quantity Ciprodex 0.3 %-0.1 % ear drops,suspension RxNorm: 797340 DROP(S) 4 DROP(S) OTIC BID 03/08/2019 04/04/2019 Inactive oxcarbazepine 300 mg/5 mL (60 mg/mL) oral suspension RxNorm: 667608 15 Milliliter(s) PO BID 03/07/2019 05/07/2019 Inactive Macrobid 100 mg capsule RxNorm: 618931 1 Capsule(s) PO BID 02/21/2003/01/2019 Inactive Macrobid 100 mg capsule RxNorm: 063051 1 Capsule(s) PO BID 02/21/2002/19/2019 Inactive meclizine 12.5 mg tablet RxNorm: 007179 1 Tablet(s) PO TID as neede d 02/06/2019 03/07/2019 Inactive change in quantity Ciprodex 0.3 %-0.1 % ear drops,suspension RxNorm: 554446 DROP(S) 4 DROP(S) OTIC BID 01/30/2019 02/12/2019 Inactive diazepam 10 mg tablet RxNorm: 596124 1 Tablet(s) PO QHS as needed 0 01/27/2019 09/10/2019 Inactive sertraline 50 mg tablet RxNorm: 968808 1 Tablet(s) PO QHS 12/29/2018 06/26/2019 Inactive famotidine 20 mg tablet RxNorm: 868008 1 Tablet(s) PO QHS 12/29/2018 06/26/2019 Inactive Ciprodex 0.3 %-0.1 % ear drops,suspension RxNorm: 588603 DROP(S) 4 DROP(S) OTIC BID 12/14/2018 12/27/2018 Inactive Generlac 10 gram/15 mL oral solution RxNorm: 160679 15 Milliliter(s) PO TWO TO THREE TIMES DAILY 12/06/2018 06/03/2019 Inactive Protonix 40 mg tablet,delayed release RxNorm: 874118 1 Tablet(s) PO or per feeding tube BID 11/24/2018 10/15/2019 Inactive meclizine 12.5 mg tablet RxNorm: 817530 1 Tablet(s) PO TID as neede d 11/11/2018 02/06/2019 Inactive change in quantity Ciprodex 0.3 %-0.1 % ear drops,suspension RxNorm: 032208 DROP(S) 4 DROP(S) OTIC BID 11/08/2018 11/21/2018 Inactive diazepam 10 mg tablet RxNorm: 101307 1 Tablet(s) PO QHS as needed 0 10/21/2018 11/19/2018 Inactive Generlac 10 gram/15 mL oral solution RxNorm: 245537 Mil liliter(s) 15 MILLILITER(S) PO TWO TO THREE TIMES DAILY 10/07/2018 11/05/2018 Inacti ve Ciprodex 0.3 %-0.1 % ear drops,suspension RxNorm: 206394 DROP(S) DROP(S) 4 DROP(S) OTIC BID 08/26/2018 03/15/2019 Inactive meclizine 12.5 mg tablet RxNorm: 760672 1 TABLET(S) PO TID NEEDE D 07/25/2018 10/22/2018 Inactive change in quantity oxcarbazepine 300 mg/5 mL (60 mg/mL) oral suspension RxNorm: 693083 15 Milliliter(s) PO BID 07/08/2018 07/07/2018 Inactive oxcarbazepine 300 mg/5 mL (60 mg/mL) oral suspension RxNorm: 992012 15 Milliliter(s) PO BID 07/08/2018 01/03/2019 Inactive sertraline 50 mg tablet RxNorm: 437531 1 TABLET(S) PO QHS 07/06/2018 12/28/2018 Inactive Singulair 10 mg tablet RxNorm: 467524 1 TABLET(S) PO QD 06/24/2018 Inactive Ciprodex 0.3 %-0.1 % ear drops,suspension RxNorm: 837123 DROP(S) 4 DROP(S) OTIC BID 06/20/2018 06/19/2018 Inactive Ciprodex 0.3 %-0.1 % ear drops,suspension RxNorm: 777625 Drop(s) DROP(S) 4 DROP(S) OTIC BID 06/20/2018 07/03/2018 Inactive cefdinir 250 mg/5 mL oral suspension RxNorm: 358645 12 Milliliter(s) PO QD though PEG tube 06/13/2018 06/22/2018 Inactive famotidine 20 mg tablet RxNorm: 812758 1 Tablet(s) PO QHS 05/31/2018 11/26/2018 Inactive famotidine 40 mg/5 mL (8 mg/mL) oral suspension RxNorm: 3102 74 2.5 Milliliter(s) PO QHS 04/29/2018 06/12/2018 Inactive meclizine 12.5 mg tablet RxNorm: 551055 1 TABLET(S) PO TID NEEDE D 04/25/2018 07/23/2018 Inactive change in quantity Generlac 10 gram/15 mL oral solution RxNorm: 084422 Mil liliter(s) 15 MILLILITER(S) PO TWO TO THREE TIMES DAILY 04/04/2018 05/03/2018 Inacti ve Ciprodex 0.3 %-0.1 % ear drops,suspension RxNorm: 311363 Drop(s) 4 DROP(S) OTIC BID 04/04/2018 04/17/2018 Inactive diazepam 10 mg tablet RxNorm: 800953 1 Tablet(s) PO QHS as needed 1 05/03/2018 Inactive famotidine 40 mg/5 mL (8 mg/mL) oral suspension RxNorm: 3102 74 2.5 Milliliter(s) PO QHS 04/04/2018 04/28/2018 Inactive Generlac 10 gram/15 mL oral solution RxNorm: 321517 15 MILLILITER(S) PO TWO TO THREE TIMES DAILY 03/24/2018 04/03/2018 Inactive Singulair 10 mg tablet RxNorm: 106012 1 TABLET(S) PO QD 03/18/2018 Inactive Ciprodex 0.3 %-0.1 % ear drops,suspension RxNorm: 629828 Drop(s) 4 DROP(S) OTIC BID 03/08/2018 03/21/2018 Inactive Generlac 10 gram/15 mL oral solution RxNorm: 383113 15 Milliliter(s) PO two to three times daily 03/03/2018 03/23/2018 Inactive meclizine 12.5 mg tablet RxNorm: 804548 1 Tablet(s) PO TID as neede d 02/10/2018 04/10/2018 Inactive change in quantity meclizine 12.5 mg tablet RxNorm: 302195 1 Tablet(s) PO BID as neede d 02/07/2018 02/09/2018 Inactive change in quantity Ciprodex 0.3 %-0.1 % ear drops,suspension RxNorm: 009011 Drop(s) 4 DROP(S) OTIC BID 02/02/2018 03/08/2018 Inactive sertraline 50 mg tablet RxNorm: 142929 1 TABLET(S) PO QHS 01/25/2018 07/05/2018 Inactive Zithromax 200 mg/5 mL oral suspension RxNorm: 972870 12.5 Dilcia liter(s) PO QD 12/31/2017 01/04/2018 Inactive Pepcid 20 mg tablet RxNorm: 321851 TABLET(S) 1 TABLET(S) PO QHS 04/29/2018 Inactive famotidine 40 mg/5 mL (8 mg/mL) oral suspension RxNorm: 3102 74 2.5 Milliliter(s) PO QHS 12/28/2017 12/27/2017 Inactive famotidine 40 mg/5 mL (8 mg/mL) oral suspension RxNorm: 3102 74 2.5 Milliliter(s) PO QHS 12/28/2017 04/03/2018 Inactive Ciprodex 0.3 %-0.1 % ear drops,suspension RxNorm: 522459 Drop(s) 4 DROP(S) OTIC BID 12/27/2017 02/02/2018 Inactive meclizine 12.5 mg tablet RxNorm: 509399 1 Tablet(s) PO BID as neede d 12/23/2017 02/06/2018 Inactive change in quantity Protonix 40 mg tablet,delayed release RxNorm: 367790 1 Tablet(s) PO or per feeding tube BID 12/16/2017 07/13/2018 Inactive oxcarbazepine 300 mg/5 mL (60 mg/mL) oral suspension RxNorm: 838750 15 Milliliter(s) PO BID 12/16/2017 07/08/2018 Inactive meclizine 12.5 mg tablet RxNorm: 242877 1 Tablet(s) PO BID as neede d 12/15/2017 02/07/2018 Inactive change in quantity Pepcid 40 mg/5 mL (8 mg/mL) oral suspension RxNorm: 736457 5 Milliliter(s) PO QHS to replace nighttime pantoprazole dose 12/14/2017 12/27/2017 Inact марина meclizine 12.5 mg tablet RxNorm: 999439 1 Tablet(s) PO BID as neede d 12/13/2017 12/23/2017 Inactive diazepam 10 mg tablet RxNorm: 849385 1 Tablet(s) PO QHS as needed 0 12/02/2017 03/01/2018 Inactive prednisolone 15 mg/5 mL oral solution RxNorm: 670509 5 Milliliter(s) PO BID for 3 days then 5ml daily for 3 days then 2.5ml daily for 3 days 12/02/2017 12/13/2017 Inactive sertraline 50 mg tablet RxNorm: 785309 1 Tablet(s) PO QHS 11/04/2017 01/24/2018 Inactive Ciprodex 0.3 %-0.1 % ear drops,suspension RxNorm: 683552 Drop(s) 4 DROP(S) OTIC BID 10/18/2017 10/31/2017 Inactive Ciprodex 0.3 %-0.1 % ear drops,suspension RxNorm: 291470 Drop(s) 4 DROP(S) OTIC BID 10/18/2017 12/27/2017 Inactive Singulair 10 mg tablet RxNorm: 486897 1 Tablet(s) PO QD 09/30/2017 Inactive diazepam 5 mg/5 mL (1 mg/mL) oral solution RxNorm: 210150 2.5 Milliliter(s) PO QD give additional 5 mg dose if seizure occurs 09/17/2017 No Stop Date A ctive Bactrim DS 800 mg-160 mg tablet RxNorm: 215878 1 Tablet(s) PO BID 0 09/17/2017 09/23/2017 Inactive Ciprodex 0.3 %-0.1 % ear drops,suspension RxNorm: 737506 4 DROP (S) OTIC BID 09/13/2017 10/18/2017 Inactive cefdinir 250 mg/5 mL oral suspension RxNorm: 751151 12 Milliliter(s) PO QD though PEG tube 08/06/2017 08/15/2017 Inactive sertraline 50 mg tablet RxNorm: 954039 1 Tablet(s) PO QHS 08/02/2017 11/04/2017 Inactive Ciprodex 0.3 %-0.1 % ear drops,suspension RxNorm: 881961 4 DROP (S) OTIC BID 07/22/2017 08/11/2017 Inactive Singulair 10 mg tablet RxNorm: 628617 1 Tablet(s) PO QD 06/30/2017 Inactive diazepam 10 mg tablet RxNorm: 152828 TAKE 1 TABLET BY M OUTH EVERY NIGHT AT BEDTIME NEEDED 06/04/2017 07/03/2017 Inactive oxcarbazepine 300 mg/5 mL (60 mg/mL) oral suspension RxNorm: 929693 15 MILLILITER(S) PO BID 05/03/2017 12/16/2017 Inactive sertraline 50 mg tablet RxNorm: 345966 1 Tablet(s) PO QHS 05/03/2017 08/02/2017 Inactive Protonix 40 mg tablet,delayed release RxNorm: 009358 1 Tablet(s) PO or per feeding tube BID 04/26/2017 12/16/2017 Inactive Ciprodex 0.3 %-0.1 % ear drops,suspension RxNorm: 643367 4 DROP (S) OTIC BID 04/26/2017 05/23/2017 Inactive Generlac 10 gram/15 mL oral solution RxNorm: 967849 Mil liliter(s) TAKE 15 ML BY MOUTH TWO-THREE TIMES DAILY 04/08/2017 03/03/2018 Inactive Singulair 10 mg tablet RxNorm: 481728 1 Tablet(s) PO QD 03/03/2017 Inactive diazepam 10 mg tablet RxNorm: 181635 1 Tablet(s) PO QHS as needed 0 02/15/2017 06/04/2017 Inactive Singulair 10 mg tablet RxNorm: 050455 1 Tablet(s) PO QD 12/01/2016 Inactive Diflucan 150 mg tablet RxNorm: 517146 Tablet(s) Give 1 tab PO now and then repeat dose in 5 days 11/10/2016 03/31/2017 Inactive Zithromax 200 mg/5 mL oral suspension RxNorm: 465865 12.5 Dilcia liter(s) PO QD 11/10/2016 11/14/2016 Inactive Singulair 10 mg tablet RxNorm: 663426 TAKE 1 TABLET BY MOUTH ON CE DAILY 11/02/2016 12/01/2016 Inactive diazepam 10 mg tablet RxNorm: 737435 TAKE 1 TABLET BY M OUTH EVERY NIGHT AT BEDTIME NEEDED 10/21/2016 11/19/2016 Inactive sertraline 50 mg tablet RxNorm: 874228 1 Tablet(s) PO QHS 10/12/2016 01/09/2017 Inactive fluconazole 100 mg tablet RxNorm: 992972 1 Tablet(s) PO QD 09/23/19 17 09/24/2016 Inactive fluconazole 100 mg tablet RxNorm: 933639 1 Tablet(s) PO QD 09/23/19 17 09/21/2016 Inactive Bactrim DS 800 mg-160 mg tablet RxNorm: 609422 1 Tablet(s) PO BID 0 09/10/2016 09/09/2016 Inactive Bactrim DS 800 mg-160 mg tablet RxNorm: 892779 1 Tablet(s) PO BID 0 09/10/2016 09/16/2016 Inactive oxcarbazepine 300 mg/5 mL (60 mg/mL) oral suspension RxNorm: 160148 15 Milliliter(s) PO BID 09/07/2016 03/05/2017 Inactive sertraline 50 mg tablet RxNorm: 420020 1 Tablet(s) PO QHS 07/06/2016 10/03/2016 Inactive Pepcid 20 mg tablet RxNorm: 017384 Tablet(s) 1 TABLET(S) PO QHS 08/201603/08/2017 Inactive sertraline 50 mg tablet RxNorm: 129335 1 Tablet(s) PO QHS 06/08/2016 05/03/2017 Inactive Generlac 10 gram/15 mL oral solution RxNorm: 824099 Mil liliter(s) TAKE 15 ML BY MOUTH TWO-THREE TIMES DAILY 06/08/2016 09/08/2016 Inactive Pepcid 20 mg tablet RxNorm: 235623 1 TABLET(S) PO QHS 06/04/201607/2016 Inactive fluconazole 100 mg tablet RxNorm: 322186 1 Tablet(s) QD through PEG tube 05/13/2016 12/01/2017 Inactive Diflucan 150 mg tablet RxNorm: 632686 Give 1 tab PO now and then repeat dose in 5 days 03/19/2016 11/09/2016 Inactive ceftriaxone 1 gram solution for injection RxNorm: 5320773 1 Gram(s) IM QD Wednesday and Wednesday03/19/2016 11/09/2016 Inactive lidocaine 10 mg/mL (1 %) injection solution RxNorm: 3463712 Use as directed to reconstitute Rocephin when needed 03/19/2016 12/13/2017 Inactive Generlac 10 gram/15 mL oral solution RxNorm: 381534 JOE E 15 ML BY MOUTH TWO- THREE TIMES DAILY 03/19/2016 06/07/2016 Inactive oxcarbazepine 300 mg/5 mL oral suspension RxNorm: 776440 15 Milliliter(s) PO BID 03/13/2016 09/07/2016 Inactive Ciprodex 0.3 %-0.1 % ear drops,suspension RxNorm: 678934 4 DROP (S) OTIC BID 03/09/2016 03/15/2016 Inactive cefdinir 250 mg/5 mL oral suspension RxNorm: 682151 11. 75 Milliliter(s) PO QD though PEG tube 03/02/2016 03/08/2016 Inactive cefdinir 250 mg/5 mL oral suspension RxNorm: 611242 11. 75 Milliliter(s) PO QD though PEG tube 02/24/2016 03/01/2016 Inactive cefdinir 250 mg/5 mL oral suspension RxNorm: 931871 11. 75 Milliliter(s) PO QD though PEG tube 02/24/2016 02/23/2016 Inactive Ciprodex 0.3 %-0.1 % ear drops,suspension RxNorm: 271735 4 Drop (s) OTIC BID 02/24/2016 03/01/2016 Inactive Generlac 10 gram/15 mL oral solution RxNorm: 855135 JOE E 15 ML BY MOUTH TWICE DAILY 02/17/2016 03/18/2016 Inactive Generlac 10 gram/15 mL oral solution RxNorm: 124788 15 Millilit er(s) PO BID 01/23/2016 02/16/2016 Inactive Pepcid 20 mg tablet RxNorm: 737433 1 TABLET(S) PO QHS 01/13/201605/07 Inactive Ciprodex 0.3 %-0.1 % ear drops,suspension RxNorm: 700069 4 Drop (s) OTIC BID 12/23/2015 12/29/2015 Inactive sertraline 50 mg tablet RxNorm: 405295 1 Tablet(s) PO QHS 12/16/2015 06/07/2016 Inactive Zithromax 500 mg tablet RxNorm: 477540 1 Tablet(s) PO QD 12/16/2015 0 12/22/2015 Inactive Pepcid 20 mg tablet RxNorm: 829453 1 Tablet(s) PO QHS 12/16/201501/02 Inactive Zithromax 500 mg tablet RxNorm: 657269 1 Tablet(s) PO QD 11/12/2015 0 11/18/2015 Inactive Singulair 10 mg tablet RxNorm: 555414 1 Tablet(s) PO BID 10/16/2015 0 11/11/2015 Inactive diazepam 10 mg tablet RxNorm: 292742 1 Tablet(s) PO QHS 10/07/2015 Inactive diazepam 10 mg tablet RxNorm: 135321 1 Tablet(s) PO QHS 10/07/2015 Inactive fexofenadine 30 mg/5 mL oral suspension RxNorm: 688617 10 Milliliter(s) PO one to two times daily PRN allergies 09/20/2015 12/15/2015 Inactive ceftriaxone 1 gram solution for injection RxNorm: 8886506 1 Gram (s) IM QD 09/20/2015 09/21/2015 Inactive Ciprodex 0.3 %-0.1 % ear drops,suspension RxNorm: 525577 4 Drop (s) OTIC BID 09/20/2015 10/03/2015 Inactive Protonix 40 mg tablet,delayed release RxNorm: 810300 1 Tablet(s) PO or per feeding tube BID 08/21/2015 12/18/2015 Inactive Carafate 100 mg/mL oral suspension RxNorm: 484306 10 Mi lliliter(s) Miscellaneous per feeding tube AC & HS 08/21/2015 09/19/2015 Inactive Zyrtec 10 mg tablet RxNorm: 7848278 1 Tablet(s) PO QD No Start Date Active diazepam 20 mg rectal kit RxNorm: 596501 RTL as needed No Start Date Active ondansetron HCl 4 mg/5 mL oral solution RxNorm: 407516 10 Milliliter(s) PO as needed and through tube No Start Date Active sertraline 50 mg tablet RxNorm: 148374 1 Tablet(s) PO QD No Start D ate 12/15/2015 Inactive Brittany 180 mg tablet RxNorm: 808915 1 Tablet(s) PO QD No Start Date 06/12/2018 Inactive Generlac 10 gram/15 mL oral solution RxNorm: 060856 15 Millilit er(s) PO BID No Start Date 01/22/2016 Inactive oxcarbazepine 300 mg/5 mL oral suspension RxNorm: 526427 13.5 Milliliter(s) PO QAM and 15ml in the evening No Start Date 12/15/2015 Inactive Singulair 10 mg tablet RxNorm: 104124 1 Tablet(s) PO QD No Start Da te 11/30/2016 Inactive meclizine 12.5 mg tablet RxNorm: 767151 1 Tablet(s) PO TID as needed for dizziness No Start Date 09/13/2017 Inactive meclizine 12.5 mg tablet RxNorm: 327463 1 Tablet(s) PO BID No Start Date 12/12/2017 Inactive fluconazole 100 mg tablet RxNorm: 191032 1 Tablet(s) QD through PEG tube No Start Date 05/12/2016 Inactive Lortab Elixir 10 mg-300 mg/15 mL oral solution RxNorm: 43017 45 8 PO Q6-8H as needed No Start Date 10/22/2019 Inactive Flomax 0.4 mg capsule RxNorm: 025584 1 Capsule(s) PO QD No Start Da te 06/12/2018 Inactive diazepam 10 mg tablet RxNorm: 561615 1 Tablet(s) PO QHS as needed N o Start Date 02/14/2017 Inactive Generlac 10 gram/15 mL oral solution RxNorm: 887392 15 Milliliter(s) PO two to three times daily No Start Date 03/02/2018 Inactive oxcarbazepine 300 mg/5 mL oral suspension RxNorm: 674727 15 Milliliter(s) PO BID No Start Date 12/15/2017 Inactive Medication Administered No Medication Administered data Immunizations Vaccine Codes Date Status Influenza CVX: 141 04/21/2019 Results No Results data Procedures Procedure Codes Date DEXAMETHASONE SODIUM PHOS CPT-4: J1100 10/06/2019 THER/PROPH/DIAG INJ SC/IM CPT-4: 18334 10/06/2019 DEXAMETHASONE SODIUM PHOS CPT-4: J1100 05/03/2019 THER/PROPH/DIAG INJ SC/IM CPT-4: 82500 05/03/2019 CEFTRIAXONE SODIUM INJECTION CPT-4: J0696 03/19/2016 THER/PROPH/DIAG INJ SC/IM CPT-4: 16776 03/19/2016 DEXAMETHASONE SODIUM PHOS CPT-4: J1100 11/12/2015 THER/PROPH/DIAG INJ SC/IM CPT-4: 30588 11/12/2015 CEFTRIAXONE SODIUM INJECTION CPT-4: J0696 09/20/2015 THER/PROPH/DIAG INJ SC/IM CPT-4: 70942 09/20/2015 THER/PROPH/DIAG INJ SC/IM CPT-4: 85507 09/10/2015 METHYLPREDNISOLONE 40 MG INJ CPT-4: J1030 09/10/2015 TRIAMCINOLONE ACET INJ NOS CPT-4: J3301 09/10/2015 Vital Signs Date Vital 07/25/2019 Blood Pressure 1: 116/80 Code: 8480-6 BMI: 23.2 Code: 16450-4 Heart Rate 1: 81 bpm Height: 4'5" Respiratory Rate: 16 bpm SpO2: 100% Tempera ture: 36.8 (C) / 98.2 (F) Weight: 92 lbs 06/12/2019 Blood Pressure 1: 112/74 Code: 8480-6 BMI: 23.2 Code: 95651-4 Heart Rate 1: 102 bpm Height: 4'5" [...] 1: 114/70 Code: 8480-6 BMI: 23.1 Code: 65654-8 Heart Rate 1: 80 bpm Height: 4'6" [...] has been having trouble urinating intermittently this . According to mother, has not urinated since [...] 4mo fwup follow up 11/12/2015 Patient's mother feliz starr she messes with her ears and lip [...] visit Encounters Encounter Performer Location Codes Date ([id number]) OFFICE/OUTPATIENT VISIT EST Diagnosis: Otalgia, bilateral[ICD10: H92.03] Fatou Onofre [facility] CPT-4: 38809 10/23/2019 ([id number]) NURSE/OUTPATIENT VISIT EST Diagnosis: Allergic rhinitis, unspecified[ICD10: J30.9] Keily LINARES [employer] [employer] CPT-4: 29517 10/06/2019 ([id number]) OFFICE/OUTPATIENT VISIT EST Diagnosis: Allergic rhinitis[ICD10: J30.9] Fatou Onofre [facility] CPT-4: 37246 10/05/2019 ([id number]) OFFICE/OUTPATIENT VISIT EST Diagnosis: Sinusitis[ICD10: J32.9] Fatou RIOSLINE [employer]IS[facility] [employer] CPT-4: 13091 07/25/2019 ([id number]) PREV VISIT EST AGE 18-39 Diagnosis: Encounter for general adult medical examination with abnormal findings[ICD10: Z00.01] Diagnosis: Chronic pancreatitis[ICD10: K86.1] Diagnosis: Cerebral palsy, unspecified[ICD10: G80.9] Keily LINARES SAlicia VinfolioMISHAER [employer] CPT-4: 72985 06/12/2019 ([id number]) OFFICE/OUTPATIENT VISIT EST Diagnosis: Pneumonia, organism unspecified[ICD10: J18.9] Diagnosis: Breast mass, right[ICD10: N63.10] Keily ARANGO [facility] CPT-4: 61731 05/08/2019 ([id number]) OFFICE/OUTPATIENT VISIT EST Diagnosis: Allergic rhinitis due to pollen[ICD10: J30.1] Diagnosis: Otitis media, unspecified, right ear[ICD10: H66.91] Fatou ARANGO [facility] CPT-4: 27127 05/03/2019 ([id number]) OFFICE/OUTPATIENT VISIT EST Diagnosis: Irritability and anger[ICD10: R45.4] Nataliia ARANGO [facility] CPT-4: 12105 11/25/2018 ([id number]) OFFICE/OUTPATIENT VISIT EST Diagnosis: Acute suppurative otitis media without spontaneous rupture of ear drum, bilateral[ICD10: H66.003] Fatou ARANGO [facility] CPT-4: 75865 06/13/2018 ([id number]) OFFICE/OUTPATIENT VISIT EST Diagnosis: Other fatigue[ICD10: R53.83] Diagnosis: Anuria and oliguria[ICD10: R34] Diagnosis: Acute gastritis without bleeding[ICD10: K29.00] Fatou ARANGO [facility] CPT-4: 17733 01/04/2018 ([id number]) OFFICE/OUTPATIENT VISIT EST Diagnosis: Acute bronchitis, unspecified[ICD10: J20.9] Fatou [facility]ANGO [facility] CPT-4: 29849 12/31/2017 ([id number]) PREV VISIT EST AGE 18-39 Diagnosis: Encounter for general adult medical examination without abnormal findings[ICD10: Z00.00] Diagnosis: Severe intellectual disabilities[ICD10: F72] Diagnosis: Allergic rhinitis due to pollen[ICD10: J30.1] Diagnosis: Epilepsy, unspecified, intractable, without status epilepticus[ICD10: G40.919] Diagnosis: Gastro-esophageal reflux disease without esophagitis[ICD10: K21.9] Keily ARANGO [facility] CPT-4: 42701 12/14/2017 ([id number]) OFFICE/OUTPATIENT VISIT EST Diagnosis: Allergic rhinitis due to pollen[ICD10: J30.1] Diagnosis: Epilepsy, unspecified, intractable, without status epilepticus[ICD10: G40.919] Keily Burtondominique KEILY Bobby [facility] CPT-4: 47383 12/02/2017 ([id number]) OFFICE/OUTPATIENT VISIT EST Diagnosis: Other allergic rhinitis[ICD10: J30.89] Fatou Bobby [facility] CPT-4: 51121 10/12/2017 OFFICE/OUTPATIENT VISIT EST Diagnosis: Acute suppurative otitis media without spontaneous rupture of ear drum, recurrent, left ear[ICD10: H66.005] Diagnosis: Epilepsy, unspecified, intractable, without status epilepticus[ICD10: G40.919] Diagnosis: Hesitancy of micturition[ICD10: R39.11] [facility] 34697 09/17/2017 OFFICE/OUTPATIENT VISIT EST Diagnosis: Otitis media, unspecified, left ear[ICD10: H66.92] [facility] 14618 08/06/2017 ([id number]) OFFICE/OUTPATIENT VISIT EST Diagnosis: Vertigo of central origin, 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.49] Diagnosis: Dizziness and giddiness[ICD10: R42] Keily Arango RENEJODI [facility] CPT-4: 36376 04/01/2017 OFFICE/OUTPATIENT VISIT EST Diagnosis: Vomiting, unspecified[ICD10: R11.10] Diagnosis: 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)[ICD10: K56.5] Diagnosis: Personal history of urinary calculi[ICD10: Z87.442] Emely Hdz KEILY Bobby [facility] CPT-4: 61617 03/01/2017 ([id number]) OFFICE/OUTPATIENT VISIT EST Diagnosis: Allergic rhinitis due to pollen[ICD10: J30.1] Diagnosis: Acute and subacute allergic otitis media (mucoid) (sanguinous) (serous), left ear[ICD10: H65.112] Keily [facility] CPT-4: 00183 11/10/2016 ([id number]) OFFICE/OUTPATIENT VISIT EST Diagnosis: 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] Diagnosis: Unspecified ovarian cyst, right side[ICD10: N83.201] Diagnosis: Cyst of kidney, 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] [facility] 60945 08/13/2016 ([id number]) OFFICE/OUTPATIENT VISIT EST Diagnosis: Rash and other nonspecific skin eruption[ICD10: R21] [facility]: 97674 03/27/2016 ([id number]) OFFICE/OUTPATIENT VISIT EST Diagnosis: Urinary tract infection, site not specified[ICD10: N39.0] [facility]: 74699 03/23/2016 ([id number]) OFFICE/OUTPATIENT VISIT EST Diagnosis: Retention of urine, unspecified[ICD10: R33.9] Diagnosis: Dysuria[ICD10: R30.0] Diagnosis: Constipation, unspecified[ICD10: K59.00] Aziza Magallanes SIOMARA LAWTON Diamante [facility]: 40249 03/19/2016 ([id number]) OFFICE/OUTPATIENT VISIT EST Diagnosis: Acute sinusitis, unspecified[ICD10: J01.90] [facility]: 17806 03/02/2016 OFFICE/OUTPATIENT VISIT EST Diagnosis: Other fatigue[ICD10: R53.83] Diagnosis: Retention of urine, unspecified[ICD10: R33.9] Diagnosis: Dysuria[ICD10: R30.0] Diagnosis: Generalized abdominal pain[ICD10: R10.84] 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] [facility]: 57223 02/24/2016 ([id number]) OFFICE/OUTPATIENT VISIT EST Diagnosis: Chronic mucoid otitis media, right ear[ICD10: H65.31] Diagnosis: Allergic rhinitis, unspecified[ICD10: J30.9] Diagnosis: 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] Keily [facility] CPT-4: 50204 12/16/2015 ([id number]) OFFICE/OUTPATIENT VISIT EST Diagnosis: Allergic rhinitis, unspecified[ICD10: J30.9] Diagnosis: Acute recurrent sinusitis, unspecified[ICD10: J01.91] Keily ARANGO [facility] CPT-4: 45759 11/12/2015 ([id number]) OFFICE/OUTPATIENT VISIT EST Diagnosis: Other seasonal allergic rhinitis[ICD10: J30.2] Diagnosis: Nausea with vomiting, unspecified[ICD10: R11.2] Diagnosis: Epigastric pain[ICD10: R10.13] [facility]: 28731 10/16/2015 OFFICE/OUTPATIENT VISIT EST Diagnosis: Encounter for follow-up examination after completed treatment for conditions other than malignant neoplasm[ICD10: Z09] Diagnosis: Generalized abdominal pain[ICD10: R10.84] [facility]: 94527 09/23/2015 ([id number]) OFFICE/OUTPATIENT VISIT EST Diagnosis: Otitis media, unspecified, right ear[ICD10: H66.91] Diagnosis: Constipation, unspecified[ICD10: K59.00] Diagnosis: Allergic rhinitis, unspecified[ICD10: J30.9] [facility]PT[facility]: 18366 09/20/2015 OFFICE/OUTPATIENT VISIT EST Diagnosis: Allergic rhinitis, unspecified[ICD10: J30.9] Diagnosis: Unspecified perforation of tympanic membrane, right ear[ICD10: H72.91] Bibiana Garg [facility] CPT-[facility]: 57578 09/10/2015 OFFICE/OUTPATIENT VISIT NEW Diagnosis: Epilepsy, unspecified, intractable, without status epilepticus[ICD10: G40.919] Diagnosis: Gastric ulcer, unspecified as acute or chronic, without hemorrhage or perforation[ICD10: K25.9] Diagnosis: Severe intellectual disabilities[ICD10: F72] Keily [facility] CPT-4: 04995 08/21/2015 Plan of Care Planned Activity Notes Codes Status Date Visit Diagnosis Plan: Otalgia, bilateral Discussion: renee ue to patient's history of recurrent ear [...] ICD-9 : 388.70 ICD-10 : H92.03 10/23/2019 Patient Education: cefdinir- [employer] Coupon [id number] https://[email or web address].WorkHands/samplemd/resources/getResource/61/[email or web address] Completed 10/23/2019 Appointment: Keily Arango WPtel: [phone] [facility] [place] INJECTION 10/06/2019 Visit Diagnosis Plan: Allergic [...] : J30.9 10/05/2019 Appointment: Fatou Onofre [address] [facility] TELEMEDICINE 10/05/2019 Visit Diagnosis Plan: Sinusitis Discussion: due to dean h of illness and symptoms, cefdinir prescribed to take as directed. call office with any new or worsening symptoms. ICD-9 : 473.9 ICD-10 : J32.9 07/25/2019 Appointment: Fatou Onofre [address] ACUTE ILLNESS 07/25/2019 Patient Education: cefdinir- [employer] Coupon [id number] [email or web address].[email or web address].com/samplemd/resources/getResource/61/[email or web address]-[email or web address] Completed 07/25/2019 Visit Diagnosis Plan: Chronic pancreatitis Discussion: Continue zenpep and recheck CMP with amylase/lipase in 1 month ICD-9 : 577.1 ICD-10 : K86.1 06/12/2019 Appointment: Keily Arango WPtel: [phone] Annual Well Visit 06/12/2019 Visit Diagnosis [...] : J18.9 05/08/2019 Appointment: Keily Arango WPtel: [facility] [address] Hospital Follow Up 05/08/2019 Visit Diagnosis Plan: [...] ICD-10 : J30.1 05/03/2019 Appointment: Fatou Onofre [address] [place] [address] ACUTE ILLNESS 05/03/2019 Patient Education: amoxicillin- [employer] Coupon [id number] https://www.[email or web address].com/samplemd/resources/getResource/61/[email or web address] Completed 05/03/2019 Visit Diagnosis Plan: Irritability and [...] ICD-10 : R45.4 11/25/2018 Appointment: Nataliia Hsieh [address] [place] [address] ACUTE ILLNESS 11/25/2018 Visit Diagnosis Plan: Acute suppurative otitis media without spontaneous rupture of ear drum, bilateral Discussion: cefdinir for 10 days. if wor sening symptoms later this week, call clinic. push fluids and tylenol/ibuprofen prn pain or fever. ICD-9 : 382.00 ICD-10 : H66.003 06/13/2018 Appointment: Fatou Onofre [address] [place] [address] ACUTE ILLNESS 06/13/2018 Visit Diagnosis Plan: Anuria and oliguria Discussion: marcelinan sent to hospital for outpatient straight cath [...] ICD-10 : R53.83 01/04/2018 Appointment: Fatou Onofre [address] [place] [address] ACUTE ILLNESS 01/04/2018 Patient Education: Patient Medication Summary Completed 01/04/2018 Visit Diagnosis Plan: Acute bronchitis, unspecified Di scussion: zithromax prescribed to take as directed. continue with allergy meds including flonase to help dry congestion. call office next week if new or worsening symptoms. ICD-9 : 466.0 ICD-10 : J20.9 12/31/2017 Appointment: Fatou Onofre [address] [place] [address] ACUTE ILLNESS 12/31/2017 Patient Education: Patient Medication Summary Completed 12/31/2017 Visit Diagnosis Plan: Epilepsy, unspecif ied, intractable, without status epilepticus Discussion: Stable on current regimen ICD-9 : 345.91 ICD-10 : G40.919 12/14/2017 Visit Diagnosis Plan: Encounter for [facility] medical examination without abnormal findings Discussion: Had recent lab done Follow Up: 3 months ICD-9 : V70.9 ICD-10 : Z00.00 12/14/2017 Visit Diagnosis Plan: Allergic rhinitis due to pollen Discussion: Continue current meds Change night time protonix to pepcid for total histamine blockade ICD-9 : 477.9 ICD-10 : J30.1 12/14/2017 Appointment: Keily Arango WPtel: [address] [place] [address] CHECK UP 12/14/2017 Patient Education: Patient Medication [...] : J30.1 12/02/2017 Appointment: Keily Arango WPtel: [facility] ACUTE ILLNESS 12/02/2017 Patient Education: Patient Medication Summary Completed 12/02/2017 Visit Diagnosis Plan: Other allergic rhinitis Discussi on: symptoms most likely caused from allergies. patient sent to hospital for decadron injection. instructed to restart patient's flonase at home. if new or worsening symptoms, call or rtc. ICD-9 : 477.8 ICD-10 : J30.89 10/12/2017 Appointment: Fatou Onofre [address] [place] [address] ACUTE ILLNESS 10/12/2017 Patient Education: Patient Medication [...] ICD-10 : G40.919 09/17/2017 Appointment: Fatou Onofre [address] [place] [address] ACUTE ILLNESS 09/17/2017 Patient Education: Patient Medication Summary Completed 09/17/2017 Visit Diagnosis Plan: Otitis media, unspecified, left ear Discussion: cefdinir prescribed daily for 10 days. instructed to administer tylenol/ibuprofen for pain or fever. if no improvement, or worsening symptoms, call or rtc. ICD-9 : 380.14 ICD-10 : H66.92 08/06/2017 Appointment: Fatou Onofre [address] [place] [address] ACUTE ILLNESS 08/06/2017 Patient Education: Patient Medication Summary Completed 08/06/2017 Patient Education: Patient Medication Summary Completed 08/02/2017 Patient Education: Patient Medication Summary Completed 04/21/2017 Care Plan: MRI BRAIN STEM W/O DYE [facility] : 58843-6 Pending 04/21/2017 Patient Education: Patient Medication Summary Completed 04/20/2017 Care Plan: MRI BRAIN STEM W/O DYE LOINC : 97279-8 Pending 04/20/2017 Visit Diagnosis Plan: Vertigo of central origin, unspe cified ear Discussion: Continue meclizine at 12.5mg po BID for 2 more weeks then go to 12.5mg daily for 2 weeks then 6.25mg daily for 2 weeks then stop Notify if any symptoms return with weaning process ICD-9 : 386.2 ICD-10 : H81.49 04/01/2017 Appointment: Keily Arango WPtel: [address] [place], [place] [phone] FOLLOW UP 04/01/2017 Patient Education: Patient Medication Summary Completed 04/01/2017 Patient Education: Patient Medication Summary Completed 03/09/2017 Care Plan: CT HEAD/BRAIN W/O DYE LOINC : 29873-2 Pending 03/09/2017 Visit Plan: It's difficult to [...] medications indicated. 03/01/2017 Appointment: Emely Hdz WPtel: [address] [place], [place] [phone] ACUTE ILLNESS 03/01/2017 Patient Education: Patient Medication Summary Completed 03/01/2017 Patient Education: Patient Medication Summary Completed 12/17/2016 Visit Diagnosis Plan: Allergic rhinitis due to pollen Discussion: Continue zyrtec/singulair ICD-9 : 477.9 ICD-10 : J30.1 11/10/2016 Visit Diagnosis Plan: Acute and subacute allergic otitis media (mucoid) (sanguinous) (serous), left ear Discussion: Zithromax ICD-9 : 381.05 ICD-10 : H65.112 11/10/2016 Appointment: Keily Arango WPtel: [facility] [place], [place] [phone] ACUTE ILLNESS 11/10/2016 Patient Education: Patient Medication Summary Completed 11/10/2016 Patient Education: Patient Medication Summary Completed 09/07/2016 Care Plan: URINALYSIS [place] : 82087-9 Pending 09/07/2016 Visit Diagnosis Plan: Unspecified ovarian cyst, right side Discussion: Pain resolved so will only get pelvic US if pain or vomiting return ICD-9 : 620.2 ICD-10 : N83.201 08/13/2016 Visit Diagnosis Plan: Cyst of kidney, acquired Discuss ion: Renal US in 6mos to assess stability ICD-9 : 753.10 ICD-10 : N28.1 08/13/2016 Visit Diagnosis Plan: Calculus of kidney Discussion: F inraegan velez Finish flomax Will observe for now since pain is resolved ICD-9 : 592.0 ICD-10 : N20.0 08/13/2016 Appointment: Keily Arango WPtel: [address] [place], [place] [address] 08/12 confirmed-sp FOLLOW UP 08/13/2016 Patient Education: Patient Medication Summary Completed 08/13/2016 Patient Education: Patient Medication Summary Completed 05/19/2016 Care Plan: X-RAY EXAM OF FOOT left foot LOINC : 26 095-0 Pending 05/19/2016 Visit Plan: Discussed with Dr Conchita MAGANA C to be drawn Order sent to Will call with results 03/27/2016 Appointment: Elpidio Aziza [address] [id number] ACUTE ILLNESS 03/27/2016 Patient Education: Patient Medication Summary Completed 03/27/2016 Visit Plan: Go for dose of rocephin 1gm IM today and tomorrow then done Diflucan 150mg x1 today Discussed with mom via phone about urology fwup--she will talk with her and let us know 03/23/2016 Appointment: Keily Arango WPtel: [address] [place], [place] [phone] 03/23 confirmed ~sl FOLLOW UP 03/23/2016 Patient Education: Patient Medication Summary Completed 03/23/2016 Visit Plan: Per Dr Arango, straight cat h for UA and culture today Ok to have a standing order for further UA needs at for straight cath Rocephin IM today and daily through Wednesday Mom has arranged a family friend that is an BUTT [employer] to give Wednesday and Sundays injections - rxs for rocephin and lido sent [facility] cannot order the lido in the qty patient needs) Dr Arango wants patient to be re-evaluated on Wednesday in clinic Referral to Urology for recurrent UTIs and urinary retention - mom wants to research who she wants her sent to and let us know 03/19/2016 Appointment: Aziza Magallanes [address] [place], [place] [phone] ACUTE ILLNESS 03/19/2016 Patient Education: Patient Medication Summary Completed 03/19/2016 Visit Plan: 1 more week of cefdinir 03/02/2016 Appointment: Keily Arango WPtel: [address] [place], [place] [phone] 03/02 confirmed~sl WORK IN 03/02/2016 Patient Education: [...] seen if worsening 02/24/2016 Appointment: Aziza Magallanes [address] [facility] ACUTE ILLNESS 02/24/2016 Patient Education: Patient Medication Summary Completed 02/24/2016 Care Plan: CHEST X-RAY 2VW FRONTAL&LATL LOINC : 97730-3 Pending 02/24/2016 Care Plan: X-RAY EXAM OF ABDOMEN LOINC : 48886-6 Pending 02/24/2016 Visit Plan: Repeat zithromax x1 week Cip rodex to right ear x1 week Add Pepcid q HS x2-4 weeks for total histamine blockade and for extra stomach protection while on zithromax 12/16/2015 Appointment: Keily Arango WPtel: [phone] [facility] [place] 6/9 lm~sl 6/10 lm ~sl FOLLOW UP 12/16/2015 Patient Education: Patient Medication Summary Completed 12/16/2015 Patient Education: [facility] - Saving [employer] - Sertraline HCL - 18-64 - Dynamic Portal ID Completed 12/16/2015 Visit Plan: Saline nasal flushes prn. Ty lenol/Motrin prn headache. Notify if persists/symptoms worsens Dexamethasone given 11/12/2015 Appointment: Keily Arango WPtel: [phone] [facility] [place] 5/9 lm~sl 5/10 lm~sl 5/10 confirm-sp FOLLOW UP 11/12/2015 Patient Education: Patient Medication Summary Completed 11/12/2015 Visit Plan: Lengthy visit Trial singulai r in addition to zyrtec and flonase If [...] visits for Belkys 10/16/2015 Appointment: Aziza Magallanes [address] [facility] ACUTE ILLNESS 10/16/2015 Patient Education: Patient Medication Summary Completed 10/16/2015 Appointment: Aziza Magallanes [address] [facility] [place] canceled, feeling better CANCELED 016 Visit Plan: No further abx needed [facility] restart carafate Notify if abdominal pain worsens 09/23/2015 Appointment: Keily Arango WPtel: [phone] [facility] [place] 09/19 confirmed-sp FOLLOW UP 09/23/2015 Patient Education: Patient Medication Summary Completed 09/23/2015 Visit Plan: Mom would prefer IM antibiot ic so the oral doesn't affect her stomach. She reports Dr Saglado has treated with rocephin IM x 3 [...] done in the past. Order sent to [facility] since [facility] does not have in stock. Recheck in [...] try for now. 09/20/2015 Appointment: Aziza Magallanes [address] ACUTE ILLNESS 09/20/2015 Patient Education: Patient Medication Summary Completed 09/20/2015 Visit Plan: Depo Medrol 40mg/ Kenalog 40 mg IM today Resume Ciprodex otic gtts. bid to Rt. ear 09/10/2015 Appointment: Bibiana Garg WPtel: [phone] [facility] 09/08 confirmed-sp ACUTE ILLNESS 09/10/2015 Patient Education: Patient Medication Summary Completed 09/10/2015 Visit Plan: Increase Protonix to 40mg po BID for 1month Continue carafate at q AC dosing for full month then wean off Jevity for 2 more days then advance diet if able Continue current meds 08/21/2015 Appointment: Keily Arango WPtel: [phone] [facility] NEW PATIENT 08/21/2015 Patient Education: Patient Medication [...] arranged a family friend that is an [employer] to give Wednesday and Sundays injections - rxs for rocephin and lido sent to [facility] cannot order the lido in [...] done in the past. Order sent to [facility] since [facility] does not have in stock. [...]
--- OUTSIDE RECORDS SUMMARY | 2019-11-10 19:28 | XMS REPORT | CCD ---
Author Author Belkys Arango D.O. 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 Role Phone Keily Arango D.O., PP Unavailable CCM Unavailable Summary Purpose Interface Exchange Insurance Providers Payer name Policy type / Coverage type Covered democrat ID Effective Begin Date Effective End Date [employer] [facility] Medicaid [id number] U nknown Family History Family History data not found Social History Social History Element Codes Description Effective Dates Marital status Unknown Single 08/21/2015 Employment Unknown Currently unemployed Physically handicapped 08/21/[address]: 154249533 Has never smoked or chewed tobacco 08/21/[address]: 727072589 Never drinks alcohol 2015 Allergies, Adverse Reactions, [...] 10 mg-300 mg/15 mL oral solution RxNorm: 98906 45 8 Milliliter(s) Oral Q6-8H as needed 10/23/2019 10/23/2019 Inactive cefdinir 250 mg/5 mL oral suspension RxNorm: 540003 12 Milliliter(s) Oral QD though PEG tube 10/23/2019 11/01/2019 Active Protonix 40 mg tablet,delayed release RxNorm: 249416 1 Tablet(s) Oral or per feeding tube two times a day 10/16/2019 04/12/2020 Active Zenpep 40,000 unit-126,000 unit-168,000 unit capsule,d elayed release RxNorm: 2476383 1 Capsule(s) Oral AC 10/16/2019 02/12/2020 Active Ciprodex 0.3 %-0.1 % ear drops,suspension RxNorm: 971489 SHAKE LIQUID AND INSTILL 4 DROPS IN AFFECTED EAR(S) TWICE DAILY 09/22/2019 10/15/2019 I nactive diazepam 10 mg tablet RxNorm: 381003 TAKE 1 TABLET BY M OUTH EVERY NIGHT AT BEDTIME NEEDED 09/11/2019 10/10/2019 Inactive meclizine 12.5 mg tablet RxNorm: 289052 TAKE 1 TABLET B Y MOUTH THREE TIMES DAILY NEEDED 08/31/2019 10/29/2019 Active Ciprodex 0.3 %-0.1 % ear drops,suspension RxNorm: 915218 SHAKE LIQUID AND INSTILL 4 DROPS IN AFFECTED EAR(S) TWICE DAILY 08/31/2019 09/07/2019 I nactive Ciprodex 0.3 %-0.1 % ear drops,suspension RxNorm: 947956 SHAKE LIQUID AND INSTILL 4 DROPS IN AFFECTED EAR(S) TWICE DAILY 08/11/2019 08/18/2019 I nactive meclizine 12.5 mg tablet RxNorm: 791145 TAKE 1 TABLET B Y MOUTH THREE TIMES DAILY NEEDED 08/04/2019 08/30/2019 Inactive cefdinir 250 mg/5 mL oral suspension RxNorm: 584923 12 Milliliter(s) Oral QD though PEG tube 07/25/2019 08/03/2019 Inactive Zenpep 40,000 unit-126,000 unit-168,000 unit capsule,d elayed release RxNorm: 7733838 1 Capsule(s) Oral AC 07/10/2019 10/15/2019 Inactive famotidine 20 mg tablet RxNorm: 845054 TAKE 1 TABLET BY MOUTH EVERY NIGHT AT BEDTIME 07/09/2019 01/04/2020 Active sertraline 50 mg tablet RxNorm: 601936 TAKE 1 TABLET BY MOUTH EVERY NIGHT AT BEDTIME 07/09/2019 09/06/2019 Inactive Zenpep 40,000 unit-126,000 unit-168,000 unit capsule,d elayed release RxNorm: 7919215 1 Capsule(s) Oral AC 06/12/2019 07/09/2019 Inactive Zenpep 40,000 unit-126,000 unit-168,000 unit capsule,d elayed release RxNorm: 8912269 1 Capsule(s) Oral AC 05/24/2019 05/23/2019 Inactive Zenpep 40,000 unit-126,000 unit-168,000 unit capsule,d elayed release RxNorm: 4216472 1 Capsule(s) Oral AC 05/24/2019 10/16/2019 Inactive Ciprodex 0.3 %-0.1 % ear drops,suspension RxNorm: 897929 DROP(S) 4 DROP(S) OTIC BID 05/22/2019 06/18/2019 Inactive oxcarbazepine 300 mg/5 mL (60 mg/mL) oral suspension RxNorm: 389242 15 Milliliter(s) Oral two times a day 05/08/2019 11/03/2019 Active meclizine 12.5 mg tablet RxNorm: 066756 1 TABLET(S) PO TID NEEDE D 05/05/2019 08/02/2019 Inactive change in quantity Zithromax 200 mg/5 mL oral suspension RxNorm: 442034 12.5 Dilcia liter(s) Oral QD 05/04/2019 05/09/2019 Inactive amoxicillin 400 mg/5 mL oral suspension RxNorm: 941570 10 Milliliter(s) Oral two times a day 05/03/2019 05/13/2019 Inactive Singulair 10 mg tablet RxNorm: 777835 1 TABLET(S) PO QD 03/28/2019 Inactive Macrobid 100 mg capsule RxNorm: 025196 1 Capsule(s) PO BID 03/16/2003/22/2019 Inactive meclizine 12.5 mg tablet RxNorm: 367463 1 Tablet(s) PO TID as neede d 03/10/2019 05/04/2019 Inactive change in quantity Ciprodex 0.3 %-0.1 % ear drops,suspension RxNorm: 240485 DROP(S) 4 DROP(S) OTIC BID 03/08/2019 04/04/2019 Inactive oxcarbazepine 300 mg/5 mL (60 mg/mL) oral suspension RxNorm: 425717 15 Milliliter(s) PO BID 03/07/2019 05/07/2019 Inactive Macrobid 100 mg capsule RxNorm: 384599 1 Capsule(s) PO BID 02/21/2003/01/2019 Inactive Macrobid 100 mg capsule RxNorm: 757675 1 Capsule(s) PO BID 02/21/2002/19/2019 Inactive meclizine 12.5 mg tablet RxNorm: 831696 1 Tablet(s) PO TID as neede d 02/06/2019 03/07/2019 Inactive change in quantity Ciprodex 0.3 %-0.1 % ear drops,suspension RxNorm: 302742 DROP(S) 4 DROP(S) OTIC BID 01/30/2019 02/12/2019 Inactive diazepam 10 mg tablet RxNorm: 261947 1 Tablet(s) PO QHS as needed 0 01/27/2019 09/10/2019 Inactive sertraline 50 mg tablet RxNorm: 869355 1 Tablet(s) PO QHS 12/29/2018 06/26/2019 Inactive famotidine 20 mg tablet RxNorm: 607771 1 Tablet(s) PO QHS 12/29/2018 06/26/2019 Inactive Ciprodex 0.3 %-0.1 % ear drops,suspension RxNorm: 054807 DROP(S) 4 DROP(S) OTIC BID 12/14/2018 12/27/2018 Inactive Generlac 10 gram/15 mL oral solution RxNorm: 108848 15 Milliliter(s) PO TWO TO THREE TIMES DAILY 12/06/2018 06/03/2019 Inactive Protonix 40 mg tablet,delayed release RxNorm: 841571 1 Tablet(s) PO or per feeding tube BID 11/24/2018 10/15/2019 Inactive meclizine 12.5 mg tablet RxNorm: 118699 1 Tablet(s) PO TID as neede d 11/11/2018 02/06/2019 Inactive change in quantity Ciprodex 0.3 %-0.1 % ear drops,suspension RxNorm: 307425 DROP(S) 4 DROP(S) OTIC BID 11/08/2018 11/21/2018 Inactive diazepam 10 mg tablet RxNorm: 966050 1 Tablet(s) PO QHS as needed 0 10/21/2018 11/19/2018 Inactive Generlac 10 gram/15 mL oral solution RxNorm: 074273 Mil liliter(s) 15 MILLILITER(S) PO TWO TO THREE TIMES DAILY 10/07/2018 11/05/2018 Inacti ve Ciprodex 0.3 %-0.1 % ear drops,suspension RxNorm: 459887 DROP(S) DROP(S) 4 DROP(S) OTIC BID 08/26/2018 03/15/2019 Inactive meclizine 12.5 mg tablet RxNorm: 056462 1 TABLET(S) PO TID NEEDE D 07/25/2018 10/22/2018 Inactive change in quantity oxcarbazepine 300 mg/5 mL (60 mg/mL) oral suspension RxNorm: 763393 15 Milliliter(s) PO BID 07/08/2018 07/07/2018 Inactive oxcarbazepine 300 mg/5 mL (60 mg/mL) oral suspension RxNorm: 389131 15 Milliliter(s) PO BID 07/08/2018 01/03/2019 Inactive sertraline 50 mg tablet RxNorm: 863094 1 TABLET(S) PO QHS 07/06/2018 12/28/2018 Inactive Singulair 10 mg tablet RxNorm: 808091 1 TABLET(S) PO QD 06/24/2018 Inactive Ciprodex 0.3 %-0.1 % ear drops,suspension RxNorm: 225780 DROP(S) 4 DROP(S) OTIC BID 06/20/2018 06/19/2018 Inactive Ciprodex 0.3 %-0.1 % ear drops,suspension RxNorm: 151443 Drop(s) DROP(S) 4 DROP(S) OTIC BID 06/20/2018 07/03/2018 Inactive cefdinir 250 mg/5 mL oral suspension RxNorm: 844351 12 Milliliter(s) PO QD though PEG tube 06/13/2018 06/22/2018 Inactive famotidine 20 mg tablet RxNorm: 072073 1 Tablet(s) PO QHS 05/31/2018 11/26/2018 Inactive famotidine 40 mg/5 mL (8 mg/mL) oral suspension RxNorm: 3102 74 2.5 Milliliter(s) PO QHS 04/29/2018 06/12/2018 Inactive meclizine 12.5 mg tablet RxNorm: 845039 1 TABLET(S) PO TID NEEDE D 04/25/2018 07/23/2018 Inactive change in quantity Generlac 10 gram/15 mL oral solution RxNorm: 356268 Mil liliter(s) 15 MILLILITER(S) PO TWO TO THREE TIMES DAILY 04/04/2018 05/03/2018 Inacti ve Ciprodex 0.3 %-0.1 % ear drops,suspension RxNorm: 607175 Drop(s) 4 DROP(S) OTIC BID 04/04/2018 04/17/2018 Inactive diazepam 10 mg tablet RxNorm: 545730 1 Tablet(s) PO QHS as needed 1 05/03/2018 Inactive famotidine 40 mg/5 mL (8 mg/mL) oral suspension RxNorm: 3102 74 2.5 Milliliter(s) PO QHS 04/04/2018 04/28/2018 Inactive Generlac 10 gram/15 mL oral solution RxNorm: 647999 15 MILLILITER(S) PO TWO TO THREE TIMES DAILY 03/24/2018 04/03/2018 Inactive Singulair 10 mg tablet RxNorm: 906429 1 TABLET(S) PO QD 03/18/2018 Inactive Ciprodex 0.3 %-0.1 % ear drops,suspension RxNorm: 533435 Drop(s) 4 DROP(S) OTIC BID 03/08/2018 03/21/2018 Inactive Generlac 10 gram/15 mL oral solution RxNorm: 100277 15 Milliliter(s) PO two to three times daily 03/03/2018 03/23/2018 Inactive meclizine 12.5 mg tablet RxNorm: 273140 1 Tablet(s) PO TID as neede d 02/10/2018 04/10/2018 Inactive change in quantity meclizine 12.5 mg tablet RxNorm: 707044 1 Tablet(s) PO BID as neede d 02/07/2018 02/09/2018 Inactive change in quantity Ciprodex 0.3 %-0.1 % ear drops,suspension RxNorm: 327017 Drop(s) 4 DROP(S) OTIC BID 02/02/2018 03/08/2018 Inactive sertraline 50 mg tablet RxNorm: 415671 1 TABLET(S) PO QHS 01/25/2018 07/05/2018 Inactive Zithromax 200 mg/5 mL oral suspension RxNorm: 160705 12.5 Dilcia liter(s) PO QD 12/31/2017 01/04/2018 Inactive Pepcid 20 mg tablet RxNorm: 207497 TABLET(S) 1 TABLET(S) PO QHS 04/29/2018 Inactive famotidine 40 mg/5 mL (8 mg/mL) oral suspension RxNorm: 3102 74 2.5 Milliliter(s) PO QHS 12/28/2017 12/27/2017 Inactive famotidine 40 mg/5 mL (8 mg/mL) oral suspension RxNorm: 3102 74 2.5 Milliliter(s) PO QHS 12/28/2017 04/03/2018 Inactive Ciprodex 0.3 %-0.1 % ear drops,suspension RxNorm: 890829 Drop(s) 4 DROP(S) OTIC BID 12/27/2017 02/02/2018 Inactive meclizine 12.5 mg tablet RxNorm: 220977 1 Tablet(s) PO BID as neede d 12/23/2017 02/06/2018 Inactive change in quantity Protonix 40 mg tablet,delayed release RxNorm: 252515 1 Tablet(s) PO or per feeding tube BID 12/16/2017 07/13/2018 Inactive oxcarbazepine 300 mg/5 mL (60 mg/mL) oral suspension RxNorm: 457938 15 Milliliter(s) PO BID 12/16/2017 07/08/2018 Inactive meclizine 12.5 mg tablet RxNorm: 249503 1 Tablet(s) PO BID as neede d 12/15/2017 02/07/2018 Inactive change in quantity Pepcid 40 mg/5 mL (8 mg/mL) oral suspension RxNorm: 310982 5 Milliliter(s) PO QHS to replace nighttime pantoprazole dose 12/14/2017 12/27/2017 Inact марина meclizine 12.5 mg tablet RxNorm: 495882 1 Tablet(s) PO BID as neede d 12/13/2017 12/23/2017 Inactive diazepam 10 mg tablet RxNorm: 850954 1 Tablet(s) PO QHS as needed 0 12/02/2017 03/01/2018 Inactive prednisolone 15 mg/5 mL oral solution RxNorm: 550045 5 Milliliter(s) PO BID for 3 days then 5ml daily for 3 days then 2.5ml daily for 3 days 12/02/2017 12/13/2017 Inactive sertraline 50 mg tablet RxNorm: 926128 1 Tablet(s) PO QHS 11/04/2017 01/24/2018 Inactive Ciprodex 0.3 %-0.1 % ear drops,suspension RxNorm: 251968 Drop(s) 4 DROP(S) OTIC BID 10/18/2017 10/31/2017 Inactive Ciprodex 0.3 %-0.1 % ear drops,suspension RxNorm: 655630 Drop(s) 4 DROP(S) OTIC BID 10/18/2017 12/27/2017 Inactive Singulair 10 mg tablet RxNorm: 286498 1 Tablet(s) PO QD 09/30/2017 Inactive diazepam 5 mg/5 mL (1 mg/mL) oral solution RxNorm: 239206 2.5 Milliliter(s) PO QD give additional 5 mg dose if seizure occurs 09/17/2017 No Stop Date A ctive Bactrim DS 800 mg-160 mg tablet RxNorm: 039889 1 Tablet(s) PO BID 0 09/17/2017 09/23/2017 Inactive Ciprodex 0.3 %-0.1 % ear drops,suspension RxNorm: 317097 4 DROP (S) OTIC BID 09/13/2017 10/18/2017 Inactive cefdinir 250 mg/5 mL oral suspension RxNorm: 681211 12 Milliliter(s) PO QD though PEG tube 08/06/2017 08/15/2017 Inactive sertraline 50 mg tablet RxNorm: 839315 1 Tablet(s) PO QHS 08/02/2017 11/04/2017 Inactive Ciprodex 0.3 %-0.1 % ear drops,suspension RxNorm: 660664 4 DROP (S) OTIC BID 07/22/2017 08/11/2017 Inactive Singulair 10 mg tablet RxNorm: 455685 1 Tablet(s) PO QD 06/30/2017 Inactive diazepam 10 mg tablet RxNorm: 934358 TAKE 1 TABLET BY M OUTH EVERY NIGHT AT BEDTIME NEEDED 06/04/2017 07/03/2017 Inactive oxcarbazepine 300 mg/5 mL (60 mg/mL) oral suspension RxNorm: 888885 15 MILLILITER(S) PO BID 05/03/2017 12/16/2017 Inactive sertraline 50 mg tablet RxNorm: 983785 1 Tablet(s) PO QHS 05/03/2017 08/02/2017 Inactive Protonix 40 mg tablet,delayed release RxNorm: 215904 1 Tablet(s) PO or per feeding tube BID 04/26/2017 12/16/2017 Inactive Ciprodex 0.3 %-0.1 % ear drops,suspension RxNorm: 126066 4 DROP (S) OTIC BID 04/26/2017 05/23/2017 Inactive Generlac 10 gram/15 mL oral solution RxNorm: 432470 Mil liliter(s) TAKE 15 ML BY MOUTH TWO-THREE TIMES DAILY 04/08/2017 03/03/2018 Inactive Singulair 10 mg tablet RxNorm: 510341 1 Tablet(s) PO QD 03/03/2017 Inactive diazepam 10 mg tablet RxNorm: 516061 1 Tablet(s) PO QHS as needed 0 02/15/2017 06/04/2017 Inactive Singulair 10 mg tablet RxNorm: 187136 1 Tablet(s) PO QD 12/01/2016 Inactive Diflucan 150 mg tablet RxNorm: 859273 Tablet(s) Give 1 tab PO now and then repeat dose in 5 days 11/10/2016 03/31/2017 Inactive Zithromax 200 mg/5 mL oral suspension RxNorm: 095094 12.5 Dilcia liter(s) PO QD 11/10/2016 11/14/2016 Inactive Singulair 10 mg tablet RxNorm: 148836 TAKE 1 TABLET BY MOUTH ON CE DAILY 11/02/2016 12/01/2016 Inactive diazepam 10 mg tablet RxNorm: 772538 TAKE 1 TABLET BY M OUTH EVERY NIGHT AT BEDTIME NEEDED 10/21/2016 11/19/2016 Inactive sertraline 50 mg tablet RxNorm: 989781 1 Tablet(s) PO QHS 10/12/2016 01/09/2017 Inactive fluconazole 100 mg tablet RxNorm: 207866 1 Tablet(s) PO QD 09/23/19 17 09/24/2016 Inactive fluconazole 100 mg tablet RxNorm: 161307 1 Tablet(s) PO QD 09/23/19 17 09/21/2016 Inactive Bactrim DS 800 mg-160 mg tablet RxNorm: 374032 1 Tablet(s) PO BID 0 09/10/2016 09/09/2016 Inactive Bactrim DS 800 mg-160 mg tablet RxNorm: 928190 1 Tablet(s) PO BID 0 09/10/2016 09/16/2016 Inactive oxcarbazepine 300 mg/5 mL (60 mg/mL) oral suspension RxNorm: 671164 15 Milliliter(s) PO BID 09/07/2016 03/05/2017 Inactive sertraline 50 mg tablet RxNorm: 990293 1 Tablet(s) PO QHS 07/06/2016 10/03/2016 Inactive Pepcid 20 mg tablet RxNorm: 024999 Tablet(s) 1 TABLET(S) PO QHS 08/201603/08/2017 Inactive sertraline 50 mg tablet RxNorm: 126886 1 Tablet(s) PO QHS 06/08/2016 05/03/2017 Inactive Generlac 10 gram/15 mL oral solution RxNorm: 083622 Mil liliter(s) TAKE 15 ML BY MOUTH TWO-THREE TIMES DAILY 06/08/2016 09/08/2016 Inactive Pepcid 20 mg tablet RxNorm: 488561 1 TABLET(S) PO QHS 06/04/201607/2016 Inactive fluconazole 100 mg tablet RxNorm: 623251 1 Tablet(s) QD through PEG tube 05/13/2016 12/01/2017 Inactive Diflucan 150 mg tablet RxNorm: 098501 Give 1 tab PO now and then repeat dose in 5 days 03/19/2016 11/09/2016 Inactive ceftriaxone 1 gram solution for injection RxNorm: 7791227 1 Gram(s) IM QD Wednesday and Wednesday03/19/2016 11/09/2016 Inactive lidocaine 10 mg/mL (1 %) injection solution RxNorm: 8579019 Use as directed to reconstitute Rocephin when needed 03/19/2016 12/13/2017 Inactive Generlac 10 gram/15 mL oral solution RxNorm: 243227 JOE E 15 ML BY MOUTH TWO- THREE TIMES DAILY 03/19/2016 06/07/2016 Inactive oxcarbazepine 300 mg/5 mL oral suspension RxNorm: 072012 15 Milliliter(s) PO BID 03/13/2016 09/07/2016 Inactive Ciprodex 0.3 %-0.1 % ear drops,suspension RxNorm: 128670 4 DROP (S) OTIC BID 03/09/2016 03/15/2016 Inactive cefdinir 250 mg/5 mL oral suspension RxNorm: 993812 11. 75 Milliliter(s) PO QD though PEG tube 03/02/2016 03/08/2016 Inactive cefdinir 250 mg/5 mL oral suspension RxNorm: 189708 11. 75 Milliliter(s) PO QD though PEG tube 02/24/2016 03/01/2016 Inactive cefdinir 250 mg/5 mL oral suspension RxNorm: 508339 11. 75 Milliliter(s) PO QD though PEG tube 02/24/2016 02/23/2016 Inactive Ciprodex 0.3 %-0.1 % ear drops,suspension RxNorm: 586184 4 Drop (s) OTIC BID 02/24/2016 03/01/2016 Inactive Generlac 10 gram/15 mL oral solution RxNorm: 250537 JOE E 15 ML BY MOUTH TWICE DAILY 02/17/2016 03/18/2016 Inactive Generlac 10 gram/15 mL oral solution RxNorm: 227865 15 Millilit er(s) PO BID 01/23/2016 02/16/2016 Inactive Pepcid 20 mg tablet RxNorm: 493870 1 TABLET(S) PO QHS 01/13/201605/07 Inactive Ciprodex 0.3 %-0.1 % ear drops,suspension RxNorm: 935239 4 Drop (s) OTIC BID 12/23/2015 12/29/2015 Inactive sertraline 50 mg tablet RxNorm: 353624 1 Tablet(s) PO QHS 12/16/2015 06/07/2016 Inactive Zithromax 500 mg tablet RxNorm: 525035 1 Tablet(s) PO QD 12/16/2015 0 12/22/2015 Inactive Pepcid 20 mg tablet RxNorm: 935498 1 Tablet(s) PO QHS 12/16/201501/02 Inactive Zithromax 500 mg tablet RxNorm: 536659 1 Tablet(s) PO QD 11/12/2015 0 11/18/2015 Inactive Singulair 10 mg tablet RxNorm: 168336 1 Tablet(s) PO BID 10/16/2015 0 11/11/2015 Inactive diazepam 10 mg tablet RxNorm: 769589 1 Tablet(s) PO QHS 10/07/2015 Inactive diazepam 10 mg tablet RxNorm: 400887 1 Tablet(s) PO QHS 10/07/2015 Inactive fexofenadine 30 mg/5 mL oral suspension RxNorm: 773631 10 Milliliter(s) PO one to two times daily PRN allergies 09/20/2015 12/15/2015 Inactive ceftriaxone 1 gram solution for injection RxNorm: 1456402 1 Gram (s) IM QD 09/20/2015 09/21/2015 Inactive Ciprodex 0.3 %-0.1 % ear drops,suspension RxNorm: 799905 4 Drop (s) OTIC BID 09/20/2015 10/03/2015 Inactive Protonix 40 mg tablet,delayed release RxNorm: 620339 1 Tablet(s) PO or per feeding tube BID 08/21/2015 12/18/2015 Inactive Carafate 100 mg/mL oral suspension RxNorm: 288246 10 Mi lliliter(s) Miscellaneous per feeding tube AC & HS 08/21/2015 09/19/2015 Inactive Zyrtec 10 mg tablet RxNorm: 8951182 1 Tablet(s) PO QD No Start Date Active diazepam 20 mg rectal kit RxNorm: 286857 RTL as needed No Start Date Active ondansetron HCl 4 mg/5 mL oral solution RxNorm: 840497 10 Milliliter(s) PO as needed and through tube No Start Date Active sertraline 50 mg tablet RxNorm: 038394 1 Tablet(s) PO QD No Start D ate 12/15/2015 Inactive Brittany 180 mg tablet RxNorm: 623843 1 Tablet(s) PO QD No Start Date 06/12/2018 Inactive Generlac 10 gram/15 mL oral solution RxNorm: 970382 15 Millilit er(s) PO BID No Start Date 01/22/2016 Inactive oxcarbazepine 300 mg/5 mL oral suspension RxNorm: 005702 13.5 Milliliter(s) PO QAM and 15ml in the evening No Start Date 12/15/2015 Inactive Singulair 10 mg tablet RxNorm: 819612 1 Tablet(s) PO QD No Start Da te 11/30/2016 Inactive meclizine 12.5 mg tablet RxNorm: 023100 1 Tablet(s) PO TID as needed for dizziness No Start Date 09/13/2017 Inactive meclizine 12.5 mg tablet RxNorm: 883476 1 Tablet(s) PO BID No Start Date 12/12/2017 Inactive fluconazole 100 mg tablet RxNorm: 839215 1 Tablet(s) QD through PEG tube No Start Date 05/12/2016 Inactive Lortab Elixir 10 mg-300 mg/15 mL oral solution RxNorm: 99760 45 8 PO Q6-8H as needed No Start Date 10/22/2019 Inactive Flomax 0.4 mg capsule RxNorm: 522579 1 Capsule(s) PO QD No Start Da te 06/12/2018 Inactive diazepam 10 mg tablet RxNorm: 428977 1 Tablet(s) PO QHS as needed N o Start Date 02/14/2017 Inactive Generlac 10 gram/15 mL oral solution RxNorm: 127319 15 Milliliter(s) PO two to three times daily No Start Date 03/02/2018 Inactive oxcarbazepine 300 mg/5 mL oral suspension RxNorm: 425330 15 Milliliter(s) PO BID No Start Date 12/15/2017 Inactive Medication Administered No Medication Administered data Immunizations Vaccine Codes Date Status Influenza CVX: 141 04/21/2019 Results No Results data Procedures Procedure Codes Date DEXAMETHASONE SODIUM PHOS CPT-4: J1100 10/06/2019 THER/PROPH/DIAG INJ SC/IM CPT-4: 62396 10/06/2019 DEXAMETHASONE SODIUM PHOS CPT-4: J1100 05/03/2019 THER/PROPH/DIAG INJ SC/IM CPT-4: 47962 05/03/2019 CEFTRIAXONE SODIUM INJECTION CPT-4: J0696 03/19/2016 THER/PROPH/DIAG INJ SC/IM CPT-4: 00754 03/19/2016 DEXAMETHASONE SODIUM PHOS CPT-4: J1100 11/12/2015 THER/PROPH/DIAG INJ SC/IM CPT-4: 75481 11/12/2015 CEFTRIAXONE SODIUM INJECTION CPT-4: J0696 09/20/2015 THER/PROPH/DIAG INJ SC/IM CPT-4: 41464 09/20/2015 THER/PROPH/DIAG INJ SC/IM CPT-4: 93179 09/10/2015 METHYLPREDNISOLONE 40 MG INJ CPT-4: J1030 09/10/2015 TRIAMCINOLONE ACET INJ NOS CPT-4: J3301 09/10/2015 Vital Signs Date Vital 07/25/2019 Blood Pressure 1: 116/80 Code: 8480-6 BMI: 23.2 Code: 22261-7 Heart Rate 1: 81 bpm Height: 4'5" Respiratory Rate: 16 bpm SpO2: 100% Tempera ture: 36.8 (C) / 98.2 (F) Weight: 92 lbs 06/12/2019 Blood Pressure 1: 112/74 Code: 8480-6 BMI: 23.2 Code: 41574-1 Heart Rate 1: 102 bpm Height: 4'5" [...] 1: 114/70 Code: 8480-6 BMI: 23.1 Code: 86863-9 Heart Rate 1: 80 bpm Height: 4'6" [...] visit Encounters Encounter Performer Location Codes Date ([id number]) OFFICE/OUTPATIENT VISIT EST Diagnosis: Otalgia, bilateral[ICD10: H92.03] Fatou Onofre [employer] CPT-4: 33920 10/23/2019 ([id number]) NURSE/OUTPATIENT VISIT EST Diagnosis: Allergic rhinitis, unspecified[ICD10: J30.9] Keily LINARES [facility] [employer] CPT-4: 30285 10/06/2019 ([id number]) OFFICE/OUTPATIENT VISIT EST Diagnosis: Allergic rhinitis[ICD10: J30.9] Fatou Onofre [employer] CPT-4: 03730 10/05/2019 ([id number]) OFFICE/OUTPATIENT VISIT EST Diagnosis: Sinusitis[ICD10: J32.9] Fatou RIOSLINE [facility] [employer] [place] CPT-4: 22860 07/25/2019 ([id number]) PREV VISIT EST AGE 18-39 Diagnosis: Encounter for general adult medical examination with abnormal findings[ICD10: Z00.01] Diagnosis: Chronic pancreatitis[ICD10: K86.1] Diagnosis: Cerebral palsy, unspecified[ICD10: G80.9] Keily LINARES [employer] CPT-4: 31576 06/12/2019 ([id number]) OFFICE/OUTPATIENT VISIT EST Diagnosis: Pneumonia, organism unspecified[ICD10: J18.9] Diagnosis: Breast mass, right[ICD10: N63.10] Keily ARANGO OB[facility] CPT-4: 63838 05/08/2019 ([id number]) OFFICE/OUTPATIENT VISIT EST Diagnosis: Allergic rhinitis due to pollen[ICD10: J30.1] Diagnosis: Otitis media, unspecified, right ear[ICD10: H66.91] Fatou ARANGO DO [facility] CPT-4: 71184 05/03/2019 ([id number]) OFFICE/OUTPATIENT VISIT EST Diagnosis: Irritability and anger[ICD10: R45.4] Nataliia ARANGO [facility] CPT-4: 30145 11/25/2018 ([id number]) OFFICE/OUTPATIENT VISIT EST Diagnosis: Acute suppurative otitis media without spontaneous rupture of ear drum, bilateral[ICD10: H66.003] Fatou ARANGO OB[facility] CPT-4: 04636 06/13/2018 ([id number]) OFFICE/OUTPATIENT VISIT EST Diagnosis: Other fatigue[ICD10: R53.83] Diagnosis: Anuria and oliguria[ICD10: R34] Diagnosis: Acute gastritis without bleeding[ICD10: K29.00] Fatou ARANGO OB[facility] CPT-4: 67671 01/04/2018 ([id number]) OFFICE/OUTPATIENT VISIT EST Diagnosis: Acute bronchitis, unspecified[ICD10: J20.9] Fatou ARANGO DO [facility] CPT-4: 17261 12/31/2017 ([id number]) PREV VISIT EST AGE 18-39 Diagnosis: Encounter for general adult medical examination without abnormal findings[ICD10: Z00.00] Diagnosis: Severe intellectual disabilities[ICD10: F72] Diagnosis: Allergic rhinitis due to pollen[ICD10: J30.1] Diagnosis: Epilepsy, unspecified, intractable, without status epilepticus[ICD10: G40.919] Diagnosis: Gastro-esophageal reflux disease without esophagitis[ICD10: K21.9] Keily ARANGO OB[facility] CPT-4: 22154 12/14/2017 ([id number]) OFFICE/OUTPATIENT VISIT EST Diagnosis: Allergic rhinitis due to pollen[ICD10: J30.1] Diagnosis: Epilepsy, unspecified, intractable, without status epilepticus[ICD10: G40.919] Keily Burtondominique KEILY Bobby [facility] CPT-4: 01645 12/02/2017 ([id number]) OFFICE/OUTPATIENT VISIT EST Diagnosis: Other allergic rhinitis[ICD10: J30.89] Fatou Bobby [facility] CPT-4: 72145 10/12/2017 OFFICE/OUTPATIENT VISIT EST Diagnosis: Acute suppurative otitis media without spontaneous rupture of ear drum, recurrent, left ear[ICD10: H66.005] Diagnosis: Epilepsy, unspecified, intractable, without status epilepticus[ICD10: G40.919] Diagnosis: Hesitancy of micturition[ICD10: R39.11] [facility] 09/17/2017 OFFICE/OUTPATIENT VISIT EST Diagnosis: Otitis media, unspecified, left ear[ICD10: H66.92] [facility] 37995 08/06/2017 ([id number]) OFFICE/OUTPATIENT VISIT EST Diagnosis: Vertigo of central origin, 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.49] Diagnosis: Dizziness and giddiness[ICD10: R42] Keily Arango [facility] CPT-4: 54255 04/01/2017 OFFICE/OUTPATIENT VISIT EST Diagnosis: Vomiting, unspecified[ICD10: R11.10] Diagnosis: 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)[ICD10: K56.5] Diagnosis: Personal history of urinary calculi[ICD10: Z87.442] Emely Hdz KEILY Bobby [facility] CPT-4: 71628 03/01/2017 ([id number]) OFFICE/OUTPATIENT VISIT EST Diagnosis: Allergic rhinitis due to pollen[ICD10: J30.1] Diagnosis: Acute and subacute allergic otitis media (mucoid) (sanguinous) (serous), left ear[ICD10: H65.112] Keily [facility] CPT-4: 51188 11/10/2016 ([id number]) OFFICE/OUTPATIENT VISIT EST Diagnosis: 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] Diagnosis: Unspecified ovarian cyst, right side[ICD10: N83.201] Diagnosis: Cyst of kidney, 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] Keily [facility] CPT-4: 56506 08/13/2016 ([id number]) OFFICE/OUTPATIENT VISIT EST Diagnosis: Rash and other nonspecific skin eruption[ICD10: R21] Aziza [facility] CPT-4: 44678 03/27/2016 ([id number]) OFFICE/OUTPATIENT VISIT EST Diagnosis: Urinary tract infection, site not specified[ICD10: N39.0] Keily [facility] CPT-4: 88300 03/23/2016 ([id number]) OFFICE/OUTPATIENT VISIT EST Diagnosis: Retention of urine, unspecified[ICD10: R33.9] Diagnosis: Dysuria[ICD10: R30.0] Diagnosis: Constipation, unspecified[ICD10: K59.00] Aziza Magallanes SIOMARA LAWTON Diamante [facility] CPT-4: 24045 03/19/2016 ([id number]) OFFICE/OUTPATIENT VISIT EST Diagnosis: Acute sinusitis, unspecified[ICD10: J01.90] Keily [facility] CPT-4: 96849 03/02/2016 OFFICE/OUTPATIENT VISIT EST Diagnosis: Other fatigue[ICD10: R53.83] Diagnosis: Retention of urine, unspecified[ICD10: R33.9] Diagnosis: Dysuria[ICD10: R30.0] Diagnosis: Generalized abdominal pain[ICD10: R10.84] 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] Aziza [facility] CPT-4: 02293 02/24/2016 ([id number]) OFFICE/OUTPATIENT VISIT EST Diagnosis: Chronic mucoid otitis media, right ear[ICD10: H65.31] Diagnosis: Allergic rhinitis, unspecified[ICD10: J30.9] Diagnosis: 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] Keily [facility] CPT-4: 84352 12/16/2015 ([id number]) OFFICE/OUTPATIENT VISIT EST Diagnosis: Allergic rhinitis, unspecified[ICD10: J30.9] Diagnosis: Acute recurrent sinusitis, unspecified[ICD10: J01.91] Keily [facility] CPT-4: 11687 11/12/2015 ([id number]) OFFICE/OUTPATIENT VISIT EST Diagnosis: Other seasonal allergic rhinitis[ICD10: J30.2] Diagnosis: Nausea with vomiting, unspecified[ICD10: R11.2] Diagnosis: Epigastric pain[ICD10: R10.13] Aziza [facility] CPT-4: 36019 10/16/2015 OFFICE/OUTPATIENT VISIT EST Diagnosis: Encounter for follow-up examination after completed treatment for conditions other than malignant neoplasm[ICD10: Z09] Diagnosis: Generalized abdominal pain[ICD10: R10.84] Keily [facility] CPT-4: 99650 09/23/2015 ([id number]) OFFICE/OUTPATIENT VISIT EST Diagnosis: Otitis media, unspecified, right ear[ICD10: H66.91] Diagnosis: Constipation, unspecified[ICD10: K59.00] Diagnosis: Allergic rhinitis, unspecified[ICD10: J30.9] [facility] CPT-4: 39094 09/20/2015 OFFICE/OUTPATIENT VISIT EST Diagnosis: Allergic rhinitis, unspecified[ICD10: J30.9] Diagnosis: Unspecified perforation of tympanic membrane, right ear[ICD10: H72.91] Bibiana Garg KEILY [facility] CPT-4: 56879 09/10/2015 OFFICE/OUTPATIENT VISIT NEW Diagnosis: Epilepsy, unspecified, intractable, without status epilepticus[ICD10: G40.919] Diagnosis: Gastric ulcer, unspecified as acute or chronic, without hemorrhage or perforation[ICD10: K25.9] Diagnosis: Severe intellectual disabilities[ICD10: F72] Keily [facility] CPT-4: 49981 08/21/2015 Plan of Care Planned Activity Notes [...] H92.03 10/23/2019 Patient Education: cefdinir- [employer] Coupon [id number] [email or web address]/samplemd/resources/getResource/61/[email or web address]-92 Completed 10/23/2019 Appointment: Keily Arango WPtel: [phone] [facility] [place] INJECTION 10/06/2019 Visit Diagnosis Plan: Allergic [...] : J30.9 10/05/2019 Appointment: Fatou Onofre [address] [facility] TELEMEDICINE 10/05/2019 Visit Diagnosis Plan: Sinusitis Discussion: due to dean h of illness and symptoms, cefdinir prescribed to take as directed. call office with any new or worsening symptoms. ICD-9 : 473.9 ICD-10 : J32.9 07/25/2019 Appointment: Fatou Onofre [address] ACUTE ILLNESS 07/25/2019 Patient Education: cefdinir- [employer] Coupon [id number] https://[email or web address]/samplemd/resources/getResource/61/rd3l1oul-9097-5426-8z Completed 07/25/2019 Visit Diagnosis Plan: Chronic pancreatitis Discussion: Continue zenpep and recheck CMP with amylase/lipase in 1 month ICD-9 : 577.1 ICD-10 : K86.1 06/12/2019 Appointment: Keily Arango WPtel: [phone] Annual Well Visit 06/12/2019 Visit Diagnosis [...] : J18.9 05/08/2019 Appointment: Keily Arango WPtel: [facility] [address] Hospital Follow Up 05/08/2019 Visit Diagnosis [...] ICD-10 : J30.1 05/03/2019 Appointment: Fatou Onofre [address] [place] [address] ACUTE ILLNESS 05/03/2019 Patient Education: amoxicillin- [employer] Coupon [id number] https://[email or web address]/samplemd/resources/getResource/61/dxf89823-70r7-7165-01 Completed 05/03/2019 Visit Diagnosis Plan: Irritability and [...] ICD-10 : R45.4 11/25/2018 Appointment: Nataliia Hsieh [address] [place] [address] ACUTE ILLNESS 11/25/2018 Visit Diagnosis Plan: Acute suppurative otitis media without spontaneous rupture of ear drum, bilateral Discussion: cefdinir for 10 days. if wor sening symptoms later this week, call clinic. push fluids and tylenol/ibuprofen prn pain or fever. ICD-9 : 382.00 ICD-10 : H66.003 06/13/2018 Appointment: Fatou Onofre [address] [place] [address] ACUTE ILLNESS 06/13/2018 Visit Diagnosis Plan: Anuria [...] ICD-10 : R53.83 01/04/2018 Appointment: Fatou Onofre [address] [place] [address] ACUTE ILLNESS 01/04/2018 Patient Education: Patient Medication Summary Completed 01/04/2018 Visit Diagnosis Plan: Acute bronchitis, unspecified Di scussion: zithromax prescribed to take as directed. continue with allergy meds including flonase to help dry congestion. call office next week if new or worsening symptoms. ICD-9 : 466.0 ICD-10 : J20.9 12/31/2017 Appointment: Fatou Onofre [address] [place] [address] ACUTE ILLNESS 12/31/2017 Patient Education: Patient Medication Summary Completed 12/31/2017 Visit Diagnosis Plan: Epilepsy, unspecif ied, intractable, without status epilepticus Discussion: Stable on current regimen ICD-9 : 345.91 ICD-10 : G40.919 12/14/2017 Visit Diagnosis Plan: Encounter for [facility] medical examination without abnormal findings Discussion: Had recent lab done Follow Up: 3 months ICD-9 : V70.9 ICD-10 : Z00.00 12/14/2017 Visit Diagnosis Plan: Allergic rhinitis due to pollen Discussion: Continue current meds Change night time protonix to pepcid for total histamine blockade ICD-9 : 477.9 ICD-10 : J30.1 12/14/2017 Appointment: Keily Arango WPtel: [address] [place] [address] CHECK UP 12/14/2017 Patient Education: Patient Medication [...] : J30.1 12/02/2017 Appointment: Keily Arango WPtel: [facility] [address] ACUTE ILLNESS 12/02/2017 Patient Education: Patient Medication Summary Completed 12/02/2017 Visit Diagnosis Plan: Other allergic rhinitis Discussi on: symptoms most likely caused from allergies. patient sent to hospital for decadron injection. instructed to restart patient's flonase at home. if new or worsening symptoms, call or rtc. ICD-9 : 477.8 ICD-10 : J30.89 10/12/2017 Appointment: Fatou Onofre [address] [place] [address] ACUTE ILLNESS 10/12/2017 Patient Education: Patient Medication [...] ICD-10 : G40.919 09/17/2017 Appointment: Fatou Onofre [address] [place] [address] ACUTE ILLNESS 09/17/2017 Patient Education: Patient Medication Summary Completed 09/17/2017 Visit Diagnosis Plan: Otitis media, unspecified, left ear Discussion: cefdinir prescribed daily for 10 days. instructed to administer tylenol/ibuprofen for pain or fever. if no improvement, or worsening symptoms, call or rtc. ICD-9 : 380.14 ICD-10 : H66.92 08/06/2017 Appointment: Fatou Onofre [address] [place] [address] ACUTE ILLNESS 08/06/2017 Patient Education: Patient Medication Summary Completed 08/06/2017 Patient Education: Patient Medication Summary Completed 08/02/2017 Patient Education: Patient Medication Summary Completed 04/21/2017 Care Plan: MRI BRAIN STEM W/O DYE [facility] : 88794-9 Pending 04/21/2017 Patient Education: Patient Medication Summary Completed 04/20/2017 Care Plan: MRI BRAIN STEM W/O DYE LOINC : 76941-2 Pending 04/20/2017 Visit Diagnosis Plan: Vertigo of central origin, unspe cified ear Discussion: Continue meclizine at 12.5mg po BID for 2 more weeks then go to 12.5mg daily for 2 weeks then 6.25mg daily for 2 weeks then stop Notify if any symptoms return with weaning process ICD-9 : 386.2 ICD-10 : H81.49 04/01/2017 Appointment: Keily Arango WPtel: [address] [place], [place] [phone] FOLLOW UP 04/01/2017 Patient Education: Patient Medication Summary Completed 04/01/2017 Patient Education: Patient Medication Summary Completed 03/09/2017 Care Plan: CT HEAD/BRAIN W/O DYE LOINC : 86023-8 Pending 03/09/2017 Visit Plan: It's difficult to [...] medications indicated. 03/01/2017 Appointment: Emely Hdz WPtel: [address] [place], [place] [phone] ACUTE ILLNESS 03/01/2017 Patient Education: Patient Medication Summary Completed 03/01/2017 Patient Education: Patient Medication Summary Completed 12/17/2016 Visit Diagnosis Plan: Allergic rhinitis due to pollen Discussion: Continue zyrtec/singulair ICD-9 : 477.9 ICD-10 : J30.1 11/10/2016 Visit Diagnosis Plan: Acute and subacute allergic otitis media (mucoid) (sanguinous) (serous), left ear Discussion: Zithromax ICD-9 : 381.05 ICD-10 : H65.112 11/10/2016 Appointment: Keily Arango WPtel: [facility] [place], [place] [phone] ACUTE ILLNESS 11/10/2016 Patient Education: Patient Medication Summary Completed 11/10/2016 Patient Education: Patient Medication Summary Completed 09/07/2016 Care Plan: URINALYSIS [place] : 77662-6 Pending 09/07/2016 Visit Diagnosis Plan: Unspecified ovarian [...] : N20.0 08/13/2016 Appointment: Keily Arango WPtel: [address] [place], [place] [address] 08/12 confirmed-sp FOLLOW UP 08/13/2016 Patient Education: Patient Medication Summary Completed 08/13/2016 Patient Education: Patient Medication Summary Completed 05/19/2016 Care Plan: X-RAY EXAM OF FOOT left foot LOINC : 26 095-0 Pending 05/19/2016 Visit Plan: Discussed with Dr Conchita MAGANA C to be drawn Order sent to Will call with results 03/27/2016 Appointment: Elpidio Aziza [address] [id number] ACUTE ILLNESS 03/27/2016 Patient Education: Patient Medication Summary Completed 03/27/2016 Visit Plan: Go for dose of rocephin 1gm IM today and tomorrow then done Diflucan 150mg x1 today Discussed with mom via phone about urology fwup--she will talk with her and let us know 03/23/2016 Appointment: Keliy Arango WPtel: [address] [place], [place] [phone] 03/23 confirmed ~sl FOLLOW UP 03/23/2016 Patient Education: Patient Medication Summary Completed 03/23/2016 Visit Plan: Per Dr Arango, straight cat h for UA and culture today Ok to have a standing order for further UA needs at for straight cath Rocephin IM today and daily through Wednesday Mom has arranged a family friend that is an [employer] to give Wednesday and Sundays injections - [...] let us know 03/19/2016 Appointment: Aziza Magallanes [address] [place], [place] [phone] ACUTE ILLNESS 03/19/2016 Patient Education: Patient Medication Summary Completed 03/19/2016 Visit Plan: 1 more week of cefdinir 03/02/2016 Appointment: Keily Arango WPtel: [address] [place], [place] [phone] 03/02 confirmed~sl WORK IN 03/02/2016 Patient Education: [...] if worsening 02/24/2016 Appointment: Aziza Magallanes [address] [facility] ACUTE ILLNESS 02/24/2016 Patient Education: Patient Medication Summary Completed 02/24/2016 Care Plan: CHEST X-RAY 2VW FRONTAL&LATL LOINC : 25249-4 Pending 02/24/2016 Care Plan: X-RAY EXAM OF ABDOMEN LOINC : 18075-6 Pending 02/24/2016 Visit Plan: Repeat zithromax x1 week Cip rodex to right ear x1 week Add Pepcid q HS x2-4 weeks for total histamine blockade and for extra stomach protection while on zithromax 12/16/2015 Appointment: Keily Arango WPtel: [phone] [facility] [place] 6/9 lm~sl 6/10 lm ~sl FOLLOW UP 12/16/2015 Patient Education: Patient Medication Summary Completed 12/16/2015 Patient Education: [facility] - Saving [employer] - Sertraline HCL - 18-64 - Dynamic Portal ID Completed 12/16/2015 Visit Plan: Saline nasal flushes prn. Ty lenol/Motrin prn headache. Notify if persists/symptoms worsens Dexamethasone given 11/12/2015 Appointment: Keily Arango WPtel: [phone] [facility] US 5/9 lm~sl 5/10 lm~sl 5/10 confirm-sp [...] for Belkys 10/16/2015 Appointment: Aziza Magallanes [address] [facility] ACUTE ILLNESS 10/16/2015 Patient Education: Patient Medication Summary Completed 10/16/2015 Appointment: Aziza Magallanes [address] [facility] [place] canceled, feeling better CANCELED 016 Visit Plan: No further abx needed [facility] restart carafate Notify if abdominal pain worsens 09/23/2015 Appointment: Keily Arango WPtel: [phone] [facility] [place] 09/19 confirmed-sp FOLLOW UP 09/23/2015 Patient [...] done in the past. Order sent to [facility] since [facility] does not have in stock. [...] for now. 09/20/2015 Appointment: Aziza Magallanes [address] ACUTE ILLNESS 09/20/2015 Patient Education: Patient Medication Summary Completed 09/20/2015 Visit Plan: Depo Medrol 40mg/ Kenalog 40 mg IM today Resume Ciprodex otic gtts. bid to Rt. ear 09/10/2015 Appointment: Bibiana Garg WPtel: [phone] [facility] 09/08 confirmed-sp ACUTE ILLNESS 09/10/2015 Patient Education: Patient Medication Summary Completed 09/10/2015 Visit Plan: Increase Protonix to 40mg po BID for 1month Continue carafate at q AC dosing for full month then wean off Jevity for 2 more days then advance diet if able Continue current meds 08/21/2015 Appointment: Keily Arango WPtel: [phone] [facility] NEW PATIENT 08/21/2015 Patient Education: Patient Medication [...] arranged a family friend that is an [employer] to give Wednesday and Sundays injections - [...] not helpful, will need to see Dr Jensne again Per mom, ear drums are always [...] done in the past. Order sent to [facility] since [facility] does not have in [...]
--- OUTSIDE RECORDS SUMMARY | 2019-11-10 19:28 | XMS REPORT | CCD ---
Author Author Belkys Arango D.O. Organization [facility] Address [address] [place] [address] Phone Care Team Providers Care Agronomist Name Role Phone Keily Arango D.O., PP Unavailable CCM Unavailable Summary Purpose Interface Exchange Insurance Providers Payer name Policy type / Coverage type Covered alliance party ID Effective Begin Date Effective End Date [employer] [facility] Medicaid [id number] U nknown Family History Family History data not found Social History Social History Element Codes Description Effective Dates Marital status Unknown Single 08/21/2015 Employment Unknown Currently unemployed Physically handicapped 08/21/[address]: 650395761 Has never smoked or chewed tobacco 08/21/[address]: 839120107 Never drinks alcohol 2015 Allergies, Adverse Reactions, [...] 10 mg-300 mg/15 mL oral solution RxNorm: 54749 45 8 Milliliter(s) Oral Q6-8H as needed 10/23/2019 10/23/2019 Inactive cefdinir 250 mg/5 mL oral suspension RxNorm: 200907 12 Milliliter(s) Oral QD though PEG tube 10/23/2019 11/01/2019 Active Protonix 40 mg tablet,delayed release RxNorm: 021282 1 Tablet(s) Oral or per feeding tube two times a day 10/16/2019 04/12/2020 Active Zenpep 40,000 unit-126,000 unit-168,000 unit capsule,d elayed release RxNorm: 8441068 1 Capsule(s) Oral AC 10/16/2019 02/12/2020 Active Ciprodex 0.3 %-0.1 % ear drops,suspension RxNorm: 281448 SHAKE LIQUID AND INSTILL 4 DROPS IN AFFECTED EAR(S) TWICE DAILY 09/22/2019 10/15/2019 I nactive diazepam 10 mg tablet RxNorm: 297101 TAKE 1 TABLET BY M OUTH EVERY NIGHT AT BEDTIME NEEDED 09/11/2019 10/10/2019 Inactive meclizine 12.5 mg tablet RxNorm: 730984 TAKE 1 TABLET B Y MOUTH THREE TIMES DAILY NEEDED 08/31/2019 10/29/2019 Active Ciprodex 0.3 %-0.1 % ear drops,suspension RxNorm: 292369 SHAKE LIQUID AND INSTILL 4 DROPS IN AFFECTED EAR(S) TWICE DAILY 08/31/2019 09/07/2019 I nactive Ciprodex 0.3 %-0.1 % ear drops,suspension RxNorm: 562224 SHAKE LIQUID AND INSTILL 4 DROPS IN AFFECTED EAR(S) TWICE DAILY 08/11/2019 08/18/2019 I nactive meclizine 12.5 mg tablet RxNorm: 132636 TAKE 1 TABLET B Y MOUTH THREE TIMES DAILY NEEDED 08/04/2019 08/30/2019 Inactive cefdinir 250 mg/5 mL oral suspension RxNorm: 919796 12 Milliliter(s) Oral QD though PEG tube 07/25/2019 08/03/2019 Inactive Zenpep 40,000 unit-126,000 unit-168,000 unit capsule,d elayed release RxNorm: 2298037 1 Capsule(s) Oral AC 07/10/2019 10/15/2019 Inactive famotidine 20 mg tablet RxNorm: 063219 TAKE 1 TABLET BY MOUTH EVERY NIGHT AT BEDTIME 07/09/2019 01/04/2020 Active sertraline 50 mg tablet RxNorm: 006521 TAKE 1 TABLET BY MOUTH EVERY NIGHT AT BEDTIME 07/09/2019 09/06/2019 Inactive Zenpep 40,000 unit-126,000 unit-168,000 unit capsule,d elayed release RxNorm: 8514699 1 Capsule(s) Oral AC 06/12/2019 07/09/2019 Inactive Zenpep 40,000 unit-126,000 unit-168,000 unit capsule,d elayed release RxNorm: 4933910 1 Capsule(s) Oral AC 05/24/2019 05/23/2019 Inactive Zenpep 40,000 unit-126,000 unit-168,000 unit capsule,d elayed release RxNorm: 9768032 1 Capsule(s) Oral AC 05/24/2019 10/16/2019 Inactive Ciprodex 0.3 %-0.1 % ear drops,suspension RxNorm: 010158 DROP(S) 4 DROP(S) OTIC BID 05/22/2019 06/18/2019 Inactive oxcarbazepine 300 mg/5 mL (60 mg/mL) oral suspension RxNorm: 559828 15 Milliliter(s) Oral two times a day 05/08/2019 11/03/2019 Active meclizine 12.5 mg tablet RxNorm: 646135 1 TABLET(S) PO TID NEEDE D 05/05/2019 08/02/2019 Inactive change in quantity Zithromax 200 mg/5 mL oral suspension RxNorm: 219392 12.5 Dilcia liter(s) Oral QD 05/04/2019 05/09/2019 Inactive amoxicillin 400 mg/5 mL oral suspension RxNorm: 068735 10 Milliliter(s) Oral two times a day 05/03/2019 05/13/2019 Inactive Singulair 10 mg tablet RxNorm: 518189 1 TABLET(S) PO QD 03/28/2019 Inactive Macrobid 100 mg capsule RxNorm: 176390 1 Capsule(s) PO BID 03/16/2003/22/2019 Inactive meclizine 12.5 mg tablet RxNorm: 108490 1 Tablet(s) PO TID as neede d 03/10/2019 05/04/2019 Inactive change in quantity Ciprodex 0.3 %-0.1 % ear drops,suspension RxNorm: 053216 DROP(S) 4 DROP(S) OTIC BID 03/08/2019 04/04/2019 Inactive oxcarbazepine 300 mg/5 mL (60 mg/mL) oral suspension RxNorm: 489789 15 Milliliter(s) PO BID 03/07/2019 05/07/2019 Inactive Macrobid 100 mg capsule RxNorm: 405099 1 Capsule(s) PO BID 02/21/2003/01/2019 Inactive Macrobid 100 mg capsule RxNorm: 256288 1 Capsule(s) PO BID 02/21/2002/19/2019 Inactive meclizine 12.5 mg tablet RxNorm: 530343 1 Tablet(s) PO TID as neede d 02/06/2019 03/07/2019 Inactive change in quantity Ciprodex 0.3 %-0.1 % ear drops,suspension RxNorm: 164270 DROP(S) 4 DROP(S) OTIC BID 01/30/2019 02/12/2019 Inactive diazepam 10 mg tablet RxNorm: 810946 1 Tablet(s) PO QHS as needed 0 01/27/2019 09/10/2019 Inactive sertraline 50 mg tablet RxNorm: 957133 1 Tablet(s) PO QHS 12/29/2018 06/26/2019 Inactive famotidine 20 mg tablet RxNorm: 305138 1 Tablet(s) PO QHS 12/29/2018 06/26/2019 Inactive Ciprodex 0.3 %-0.1 % ear drops,suspension RxNorm: 069281 DROP(S) 4 DROP(S) OTIC BID 12/14/2018 12/27/2018 Inactive Generlac 10 gram/15 mL oral solution RxNorm: 725331 15 Milliliter(s) PO TWO TO THREE TIMES DAILY 12/06/2018 06/03/2019 Inactive Protonix 40 mg tablet,delayed release RxNorm: 555770 1 Tablet(s) PO or per feeding tube BID 11/24/2018 10/15/2019 Inactive meclizine 12.5 mg tablet RxNorm: 333829 1 Tablet(s) PO TID as neede d 11/11/2018 02/06/2019 Inactive change in quantity Ciprodex 0.3 %-0.1 % ear drops,suspension RxNorm: 999007 DROP(S) 4 DROP(S) OTIC BID 11/08/2018 11/21/2018 Inactive diazepam 10 mg tablet RxNorm: 674854 1 Tablet(s) PO QHS as needed 0 10/21/2018 11/19/2018 Inactive Generlac 10 gram/15 mL oral solution RxNorm: 515066 Mil liliter(s) 15 MILLILITER(S) PO TWO TO THREE TIMES DAILY 10/07/2018 11/05/2018 Inacti ve Ciprodex 0.3 %-0.1 % ear drops,suspension RxNorm: 838520 DROP(S) DROP(S) 4 DROP(S) OTIC BID 08/26/2018 03/15/2019 Inactive meclizine 12.5 mg tablet RxNorm: 173097 1 TABLET(S) PO TID NEEDE D 07/25/2018 10/22/2018 Inactive change in quantity oxcarbazepine 300 mg/5 mL (60 mg/mL) oral suspension RxNorm: 061273 15 Milliliter(s) PO BID 07/08/2018 07/07/2018 Inactive oxcarbazepine 300 mg/5 mL (60 mg/mL) oral suspension RxNorm: 342505 15 Milliliter(s) PO BID 07/08/2018 01/03/2019 Inactive sertraline 50 mg tablet RxNorm: 950614 1 TABLET(S) PO QHS 07/06/2018 12/28/2018 Inactive Singulair 10 mg tablet RxNorm: 741197 1 TABLET(S) PO QD 06/24/2018 Inactive Ciprodex 0.3 %-0.1 % ear drops,suspension RxNorm: 534393 DROP(S) 4 DROP(S) OTIC BID 06/20/2018 06/19/2018 Inactive Ciprodex 0.3 %-0.1 % ear drops,suspension RxNorm: 695333 Drop(s) DROP(S) 4 DROP(S) OTIC BID 06/20/2018 07/03/2018 Inactive cefdinir 250 mg/5 mL oral suspension RxNorm: 417137 12 Milliliter(s) PO QD though PEG tube 06/13/2018 06/22/2018 Inactive famotidine 20 mg tablet RxNorm: 984043 1 Tablet(s) PO QHS 05/31/2018 11/26/2018 Inactive famotidine 40 mg/5 mL (8 mg/mL) oral suspension RxNorm: 3102 74 2.5 Milliliter(s) PO QHS 04/29/2018 06/12/2018 Inactive meclizine 12.5 mg tablet RxNorm: 634854 1 TABLET(S) PO TID NEEDE D 04/25/2018 07/23/2018 Inactive change in quantity Generlac 10 gram/15 mL oral solution RxNorm: 794656 Mil liliter(s) 15 MILLILITER(S) PO TWO TO THREE TIMES DAILY 04/04/2018 05/03/2018 Inacti ve Ciprodex 0.3 %-0.1 % ear drops,suspension RxNorm: 400346 Drop(s) 4 DROP(S) OTIC BID 04/04/2018 04/17/2018 Inactive diazepam 10 mg tablet RxNorm: 400735 1 Tablet(s) PO QHS as needed 1 05/03/2018 Inactive famotidine 40 mg/5 mL (8 mg/mL) oral suspension RxNorm: 3102 74 2.5 Milliliter(s) PO QHS 04/04/2018 04/28/2018 Inactive Generlac 10 gram/15 mL oral solution RxNorm: 391919 15 MILLILITER(S) PO TWO TO THREE TIMES DAILY 03/24/2018 04/03/2018 Inactive Singulair 10 mg tablet RxNorm: 418437 1 TABLET(S) PO QD 03/18/2018 Inactive Ciprodex 0.3 %-0.1 % ear drops,suspension RxNorm: 766217 Drop(s) 4 DROP(S) OTIC BID 03/08/2018 03/21/2018 Inactive Generlac 10 gram/15 mL oral solution RxNorm: 394787 15 Milliliter(s) PO two to three times daily 03/03/2018 03/23/2018 Inactive meclizine 12.5 mg tablet RxNorm: 323246 1 Tablet(s) PO TID as neede d 02/10/2018 04/10/2018 Inactive change in quantity meclizine 12.5 mg tablet RxNorm: 599857 1 Tablet(s) PO BID as neede d 02/07/2018 02/09/2018 Inactive change in quantity Ciprodex 0.3 %-0.1 % ear drops,suspension RxNorm: 401120 Drop(s) 4 DROP(S) OTIC BID 02/02/2018 03/08/2018 Inactive sertraline 50 mg tablet RxNorm: 052460 1 TABLET(S) PO QHS 01/25/2018 07/05/2018 Inactive Zithromax 200 mg/5 mL oral suspension RxNorm: 622994 12.5 Dilcia liter(s) PO QD 12/31/2017 01/04/2018 Inactive Pepcid 20 mg tablet RxNorm: 092197 TABLET(S) 1 TABLET(S) PO QHS 04/29/2018 Inactive famotidine 40 mg/5 mL (8 mg/mL) oral suspension RxNorm: 3102 74 2.5 Milliliter(s) PO QHS 12/28/2017 12/27/2017 Inactive famotidine 40 mg/5 mL (8 mg/mL) oral suspension RxNorm: 3102 74 2.5 Milliliter(s) PO QHS 12/28/2017 04/03/2018 Inactive Ciprodex 0.3 %-0.1 % ear drops,suspension RxNorm: 167733 Drop(s) 4 DROP(S) OTIC BID 12/27/2017 02/02/2018 Inactive meclizine 12.5 mg tablet RxNorm: 395554 1 Tablet(s) PO BID as neede d 12/23/2017 02/06/2018 Inactive change in quantity Protonix 40 mg tablet,delayed release RxNorm: 166697 1 Tablet(s) PO or per feeding tube BID 12/16/2017 07/13/2018 Inactive oxcarbazepine 300 mg/5 mL (60 mg/mL) oral suspension RxNorm: 376257 15 Milliliter(s) PO BID 12/16/2017 07/08/2018 Inactive meclizine 12.5 mg tablet RxNorm: 370556 1 Tablet(s) PO BID as neede d 12/15/2017 02/07/2018 Inactive change in quantity Pepcid 40 mg/5 mL (8 mg/mL) oral suspension RxNorm: 032926 5 Milliliter(s) PO QHS to replace nighttime pantoprazole dose 12/14/2017 12/27/2017 Inact марина meclizine 12.5 mg tablet RxNorm: 195406 1 Tablet(s) PO BID as neede d 12/13/2017 12/23/2017 Inactive diazepam 10 mg tablet RxNorm: 672343 1 Tablet(s) PO QHS as needed 0 12/02/2017 03/01/2018 Inactive prednisolone 15 mg/5 mL oral solution RxNorm: 522784 5 Milliliter(s) PO BID for 3 days then 5ml daily for 3 days then 2.5ml daily for 3 days 12/02/2017 12/13/2017 Inactive sertraline 50 mg tablet RxNorm: 447141 1 Tablet(s) PO QHS 11/04/2017 01/24/2018 Inactive Ciprodex 0.3 %-0.1 % ear drops,suspension RxNorm: 034948 Drop(s) 4 DROP(S) OTIC BID 10/18/2017 10/31/2017 Inactive Ciprodex 0.3 %-0.1 % ear drops,suspension RxNorm: 357283 Drop(s) 4 DROP(S) OTIC BID 10/18/2017 12/27/2017 Inactive Singulair 10 mg tablet RxNorm: 286063 1 Tablet(s) PO QD 09/30/2017 Inactive diazepam 5 mg/5 mL (1 mg/mL) oral solution RxNorm: 934635 2.5 Milliliter(s) PO QD give additional 5 mg dose if seizure occurs 09/17/2017 No Stop Date A ctive Bactrim DS 800 mg-160 mg tablet RxNorm: 264425 1 Tablet(s) PO BID 0 09/17/2017 09/23/2017 Inactive Ciprodex 0.3 %-0.1 % ear drops,suspension RxNorm: 760688 4 DROP (S) OTIC BID 09/13/2017 10/18/2017 Inactive cefdinir 250 mg/5 mL oral suspension RxNorm: 953539 12 Milliliter(s) PO QD though PEG tube 08/06/2017 08/15/2017 Inactive sertraline 50 mg tablet RxNorm: 436590 1 Tablet(s) PO QHS 08/02/2017 11/04/2017 Inactive Ciprodex 0.3 %-0.1 % ear drops,suspension RxNorm: 023543 4 DROP (S) OTIC BID 07/22/2017 08/11/2017 Inactive Singulair 10 mg tablet RxNorm: 997849 1 Tablet(s) PO QD 06/30/2017 Inactive diazepam 10 mg tablet RxNorm: 286974 TAKE 1 TABLET BY M OUTH EVERY NIGHT AT BEDTIME NEEDED 06/04/2017 07/03/2017 Inactive oxcarbazepine 300 mg/5 mL (60 mg/mL) oral suspension RxNorm: 990383 15 MILLILITER(S) PO BID 05/03/2017 12/16/2017 Inactive sertraline 50 mg tablet RxNorm: 016268 1 Tablet(s) PO QHS 05/03/2017 08/02/2017 Inactive Protonix 40 mg tablet,delayed release RxNorm: 134815 1 Tablet(s) PO or per feeding tube BID 04/26/2017 12/16/2017 Inactive Ciprodex 0.3 %-0.1 % ear drops,suspension RxNorm: 993494 4 DROP (S) OTIC BID 04/26/2017 05/23/2017 Inactive Generlac 10 gram/15 mL oral solution RxNorm: 601037 Mil liliter(s) TAKE 15 ML BY MOUTH TWO-THREE TIMES DAILY 04/08/2017 03/03/2018 Inactive Singulair 10 mg tablet RxNorm: 393633 1 Tablet(s) PO QD 03/03/2017 Inactive diazepam 10 mg tablet RxNorm: 892390 1 Tablet(s) PO QHS as needed 0 02/15/2017 06/04/2017 Inactive Singulair 10 mg tablet RxNorm: 050087 1 Tablet(s) PO QD 12/01/2016 Inactive Diflucan 150 mg tablet RxNorm: 812992 Tablet(s) Give 1 tab PO now and then repeat dose in 5 days 11/10/2016 03/31/2017 Inactive Zithromax 200 mg/5 mL oral suspension RxNorm: 387303 12.5 Dilcia liter(s) PO QD 11/10/2016 11/14/2016 Inactive Singulair 10 mg tablet RxNorm: 258359 TAKE 1 TABLET BY MOUTH ON CE DAILY 11/02/2016 12/01/2016 Inactive diazepam 10 mg tablet RxNorm: 684156 TAKE 1 TABLET BY M OUTH EVERY NIGHT AT BEDTIME NEEDED 10/21/2016 11/19/2016 Inactive sertraline 50 mg tablet RxNorm: 934572 1 Tablet(s) PO QHS 10/12/2016 01/09/2017 Inactive fluconazole 100 mg tablet RxNorm: 083334 1 Tablet(s) PO QD 09/23/19 17 09/24/2016 Inactive fluconazole 100 mg tablet RxNorm: 717846 1 Tablet(s) PO QD 09/23/19 17 09/21/2016 Inactive Bactrim DS 800 mg-160 mg tablet RxNorm: 522419 1 Tablet(s) PO BID 0 09/10/2016 09/09/2016 Inactive Bactrim DS 800 mg-160 mg tablet RxNorm: 861306 1 Tablet(s) PO BID 0 09/10/2016 09/16/2016 Inactive oxcarbazepine 300 mg/5 mL (60 mg/mL) oral suspension RxNorm: 777927 15 Milliliter(s) PO BID 09/07/2016 03/05/2017 Inactive sertraline 50 mg tablet RxNorm: 088372 1 Tablet(s) PO QHS 07/06/2016 10/03/2016 Inactive Pepcid 20 mg tablet RxNorm: 819744 Tablet(s) 1 TABLET(S) PO QHS 08/201603/08/2017 Inactive sertraline 50 mg tablet RxNorm: 600370 1 Tablet(s) PO QHS 06/08/2016 05/03/2017 Inactive Generlac 10 gram/15 mL oral solution RxNorm: 896429 Mil liliter(s) TAKE 15 ML BY MOUTH TWO-THREE TIMES DAILY 06/08/2016 09/08/2016 Inactive Pepcid 20 mg tablet RxNorm: 599347 1 TABLET(S) PO QHS 06/04/201607/2016 Inactive fluconazole 100 mg tablet RxNorm: 388269 1 Tablet(s) QD through PEG tube 05/13/2016 12/01/2017 Inactive Diflucan 150 mg tablet RxNorm: 076280 Give 1 tab PO now and then repeat dose in 5 days 03/19/2016 11/09/2016 Inactive ceftriaxone 1 gram solution for injection RxNorm: 9760375 1 Gram(s) IM QD Wednesday and Wednesday03/19/2016 11/09/2016 Inactive lidocaine 10 mg/mL (1 %) injection solution RxNorm: 8310978 Use as directed to reconstitute Rocephin when needed 03/19/2016 12/13/2017 Inactive Generlac 10 gram/15 mL oral solution RxNorm: 510478 JOE E 15 ML BY MOUTH TWO- THREE TIMES DAILY 03/19/2016 06/07/2016 Inactive oxcarbazepine 300 mg/5 mL oral suspension RxNorm: 355261 15 Milliliter(s) PO BID 03/13/2016 09/07/2016 Inactive Ciprodex 0.3 %-0.1 % ear drops,suspension RxNorm: 000231 4 DROP (S) OTIC BID 03/09/2016 03/15/2016 Inactive cefdinir 250 mg/5 mL oral suspension RxNorm: 797654 11. 75 Milliliter(s) PO QD though PEG tube 03/02/2016 03/08/2016 Inactive cefdinir 250 mg/5 mL oral suspension RxNorm: 783250 11. 75 Milliliter(s) PO QD though PEG tube 02/24/2016 03/01/2016 Inactive cefdinir 250 mg/5 mL oral suspension RxNorm: 124855 11. 75 Milliliter(s) PO QD though PEG tube 02/24/2016 02/23/2016 Inactive Ciprodex 0.3 %-0.1 % ear drops,suspension RxNorm: 198513 4 Drop (s) OTIC BID 02/24/2016 03/01/2016 Inactive Generlac 10 gram/15 mL oral solution RxNorm: 581615 JOE E 15 ML BY MOUTH TWICE DAILY 02/17/2016 03/18/2016 Inactive Generlac 10 gram/15 mL oral solution RxNorm: 581693 15 Millilit er(s) PO BID 01/23/2016 02/16/2016 Inactive Pepcid 20 mg tablet RxNorm: 806344 1 TABLET(S) PO QHS 01/13/201605/07 Inactive Ciprodex 0.3 %-0.1 % ear drops,suspension RxNorm: 417352 4 Drop (s) OTIC BID 12/23/2015 12/29/2015 Inactive sertraline 50 mg tablet RxNorm: 214493 1 Tablet(s) PO QHS 12/16/2015 06/07/2016 Inactive Zithromax 500 mg tablet RxNorm: 003252 1 Tablet(s) PO QD 12/16/2015 0 12/22/2015 Inactive Pepcid 20 mg tablet RxNorm: 578821 1 Tablet(s) PO QHS 12/16/201501/02 Inactive Zithromax 500 mg tablet RxNorm: 989958 1 Tablet(s) PO QD 11/12/2015 0 11/18/2015 Inactive Singulair 10 mg tablet RxNorm: 954315 1 Tablet(s) PO BID 10/16/2015 0 11/11/2015 Inactive diazepam 10 mg tablet RxNorm: 695690 1 Tablet(s) PO QHS 10/07/2015 Inactive diazepam 10 mg tablet RxNorm: 178472 1 Tablet(s) PO QHS 10/07/2015 Inactive fexofenadine 30 mg/5 mL oral suspension RxNorm: 811491 10 Milliliter(s) PO one to two times daily PRN allergies 09/20/2015 12/15/2015 Inactive ceftriaxone 1 gram solution for injection RxNorm: 0353640 1 Gram (s) IM QD 09/20/2015 09/21/2015 Inactive Ciprodex 0.3 %-0.1 % ear drops,suspension RxNorm: 559094 4 Drop (s) OTIC BID 09/20/2015 10/03/2015 Inactive Protonix 40 mg tablet,delayed release RxNorm: 674742 1 Tablet(s) PO or per feeding tube BID 08/21/2015 12/18/2015 Inactive Carafate 100 mg/mL oral suspension RxNorm: 385854 10 Mi lliliter(s) Miscellaneous per feeding tube AC & HS 08/21/2015 09/19/2015 Inactive Zyrtec 10 mg tablet RxNorm: 4261213 1 Tablet(s) PO QD No Start Date Active diazepam 20 mg rectal kit RxNorm: 905059 RTL as needed No Start Date Active ondansetron HCl 4 mg/5 mL oral solution RxNorm: 842701 10 Milliliter(s) PO as needed and through tube No Start Date Active sertraline 50 mg tablet RxNorm: 315654 1 Tablet(s) PO QD No Start D ate 12/15/2015 Inactive Brittany 180 mg tablet RxNorm: 337937 1 Tablet(s) PO QD No Start Date 06/12/2018 Inactive Generlac 10 gram/15 mL oral solution RxNorm: 087698 15 Millilit er(s) PO BID No Start Date 01/22/2016 Inactive oxcarbazepine 300 mg/5 mL oral suspension RxNorm: 048937 13.5 Milliliter(s) PO QAM and 15ml in the evening No Start Date 12/15/2015 Inactive Singulair 10 mg tablet RxNorm: 070654 1 Tablet(s) PO QD No Start Da te 11/30/2016 Inactive meclizine 12.5 mg tablet RxNorm: 615365 1 Tablet(s) PO TID as needed for dizziness No Start Date 09/13/2017 Inactive meclizine 12.5 mg tablet RxNorm: 342478 1 Tablet(s) PO BID No Start Date 12/12/2017 Inactive fluconazole 100 mg tablet RxNorm: 307396 1 Tablet(s) QD through PEG tube No Start Date 05/12/2016 Inactive Lortab Elixir 10 mg-300 mg/15 mL oral solution RxNorm: 08615 45 8 PO Q6-8H as needed No Start Date 10/22/2019 Inactive Flomax 0.4 mg capsule RxNorm: 370958 1 Capsule(s) PO QD No Start Da te 06/12/2018 Inactive diazepam 10 mg tablet RxNorm: 310304 1 Tablet(s) PO QHS as needed N o Start Date 02/14/2017 Inactive Generlac 10 gram/15 mL oral solution RxNorm: 844836 15 Milliliter(s) PO two to three times daily No Start Date 03/02/2018 Inactive oxcarbazepine 300 mg/5 mL oral suspension RxNorm: 586496 15 Milliliter(s) PO BID No Start Date 12/15/2017 Inactive Medication Administered No Medication Administered data Immunizations Vaccine Codes Date Status Influenza CVX: 141 04/21/2019 Results No Results data Procedures Procedure Codes Date DEXAMETHASONE SODIUM PHOS CPT-4: J1100 10/06/2019 THER/PROPH/DIAG INJ SC/IM CPT-4: 07226 10/06/2019 DEXAMETHASONE SODIUM PHOS CPT-4: J1100 05/03/2019 THER/PROPH/DIAG INJ SC/IM CPT-4: 33208 05/03/2019 CEFTRIAXONE SODIUM INJECTION CPT-4: J0696 03/19/2016 THER/PROPH/DIAG INJ SC/IM CPT-4: 47897 03/19/2016 DEXAMETHASONE SODIUM PHOS CPT-4: J1100 11/12/2015 THER/PROPH/DIAG INJ SC/IM CPT-4: 26043 11/12/2015 CEFTRIAXONE SODIUM INJECTION CPT-4: J0696 09/20/2015 THER/PROPH/DIAG INJ SC/IM CPT-4: 34776 09/20/2015 THER/PROPH/DIAG INJ SC/IM CPT-4: 91283 09/10/2015 METHYLPREDNISOLONE 40 MG INJ CPT-4: J1030 09/10/2015 TRIAMCINOLONE ACET INJ NOS CPT-4: J3301 09/10/2015 Vital Signs Date Vital 07/25/2019 Blood Pressure 1: 116/80 Code: 8480-6 BMI: 23.2 Code: 49957-0 Heart Rate 1: 81 bpm Height: 4'5" Respiratory Rate: 16 bpm SpO2: 100% Tempera ture: 36.8 (C) / 98.2 (F) Weight: 92 lbs 06/12/2019 Blood Pressure 1: 112/74 Code: 8480-6 BMI: 23.2 Code: 33494-1 Heart Rate 1: 102 bpm Height: 4'5" [...] 1: 114/70 Code: 8480-6 BMI: 23.1 Code: 12466-0 Heart Rate 1: 80 bpm Height: 4'6" [...] visit Encounters Encounter Performer Location Codes Date ([id number]) OFFICE/OUTPATIENT VISIT EST Diagnosis: Otalgia, bilateral[ICD10: H92.03] Fatou Onofre [employer] CPT-4: 64660 10/23/2019 ([id number]) NURSE/OUTPATIENT VISIT EST Diagnosis: Allergic rhinitis, unspecified[ICD10: J30.9] Keily LINARES [employer] CPT-4: 68864 10/06/2019 ([id number]) OFFICE/OUTPATIENT VISIT EST Diagnosis: Allergic rhinitis[ICD10: J30.9] Fatou Onofre [employer] CPT-4: 27306 10/05/2019 ([id number]) OFFICE/OUTPATIENT VISIT EST Diagnosis: Sinusitis[ICD10: J32.9] Fatou RIOSLINE [employer] [employer] CPT-4: 18342 07/25/2019 ([id number]) PREV VISIT EST AGE 18-39 Diagnosis: Encounter for general adult medical examination with abnormal findings[ICD10: Z00.01] Diagnosis: Chronic pancreatitis[ICD10: K86.1] Diagnosis: Cerebral palsy, unspecified[ICD10: G80.9] Keily LINARES SAlicia VSHOREMISHAER [employer] CPT-4: 33788 06/12/2019 ([id number]) OFFICE/OUTPATIENT VISIT EST Diagnosis: Pneumonia, organism unspecified[ICD10: J18.9] Diagnosis: Breast mass, right[ICD10: N63.10] Keily ARANGO [employer] [facility] CPT-4: 87457 05/08/2019 ([id number]) OFFICE/OUTPATIENT VISIT EST Diagnosis: Allergic rhinitis due to pollen[ICD10: J30.1] Diagnosis: Otitis media, unspecified, right ear[ICD10: H66.91] Fatou ARANGO DO [facility] CPT-4: 38870 05/03/2019 ([id number]) OFFICE/OUTPATIENT VISIT EST Diagnosis: Irritability and anger[ICD10: R45.4] Nataliia ARANGO [employer] [facility] CPT-4: 90843 11/25/2018 ([id number]) OFFICE/OUTPATIENT VISIT EST Diagnosis: Acute suppurative otitis media without spontaneous rupture of ear drum, bilateral[ICD10: H66.003] Fatou ARANGO [employer] [facility] CPT-4: 22841 06/13/2018 ([id number]) OFFICE/OUTPATIENT VISIT EST Diagnosis: Other fatigue[ICD10: R53.83] Diagnosis: Anuria and oliguria[ICD10: R34] Diagnosis: Acute gastritis without bleeding[ICD10: K29.00] Fatou ARANGO [employer] [facility] CPT-4: 56859 01/04/2018 ([id number]) OFFICE/OUTPATIENT VISIT EST Diagnosis: Acute bronchitis, unspecified[ICD10: J20.9] Fatou ARANGO DO [facility] CPT-4: 69747 12/31/2017 ([id number]) PREV VISIT EST AGE 18-39 Diagnosis: Encounter for general adult medical examination without abnormal findings[ICD10: Z00.00] Diagnosis: Severe intellectual disabilities[ICD10: F72] Diagnosis: Allergic rhinitis due to pollen[ICD10: J30.1] Diagnosis: Epilepsy, unspecified, intractable, without status epilepticus[ICD10: G40.919] Diagnosis: Gastro-esophageal reflux disease without esophagitis[ICD10: K21.9] Keily ARANGO [employer] [facility] CPT-4: 78608 12/14/2017 ([id number]) OFFICE/OUTPATIENT VISIT EST Diagnosis: Allergic rhinitis due to pollen[ICD10: J30.1] Diagnosis: Epilepsy, unspecified, intractable, without status epilepticus[ICD10: G40.919] Keily Burtondominique KEILY Bobby [facility] CPT-4: 22804 12/02/2017 ([id number]) OFFICE/OUTPATIENT VISIT EST Diagnosis: Other allergic rhinitis[ICD10: J30.89] Fatou Bobby [facility] CPT-4: 42710 10/12/2017 OFFICE/OUTPATIENT VISIT EST Diagnosis: Acute suppurative otitis media without spontaneous rupture of ear drum, recurrent, left ear[ICD10: H66.005] Diagnosis: Epilepsy, unspecified, intractable, without status epilepticus[ICD10: G40.919] Diagnosis: Hesitancy of micturition[ICD10: R39.11] [facility] 39260 09/17/2017 OFFICE/OUTPATIENT VISIT EST Diagnosis: Otitis media, unspecified, left ear[ICD10: H66.92] [facility]PT[facility]: 79362 08/06/2017 ([id number]) OFFICE/OUTPATIENT VISIT EST Diagnosis: Vertigo of central origin, 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.49] Diagnosis: Dizziness and giddiness[ICD10: R42] Keily Arango [facility] CPT-4: 74754 04/01/2017 OFFICE/OUTPATIENT VISIT EST Diagnosis: Vomiting, unspecified[ICD10: R11.10] Diagnosis: 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)[ICD10: K56.5] Diagnosis: Personal history of urinary calculi[ICD10: Z87.442] Emely Hdz KEILY Bobby [facility] CPT-4: 96750 03/01/2017 ([id number]) OFFICE/OUTPATIENT VISIT EST Diagnosis: Allergic rhinitis due to pollen[ICD10: J30.1] Diagnosis: Acute and subacute allergic otitis media (mucoid) (sanguinous) (serous), left ear[ICD10: H65.112] Keily CASTILLO [facility] CPT-4: 44688 11/10/2016 ([id number]) OFFICE/OUTPATIENT VISIT EST Diagnosis: 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] Diagnosis: Unspecified ovarian cyst, right side[ICD10: N83.201] Diagnosis: Cyst of kidney, 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] Keily [facility] CPT-4: 94460 08/13/2016 ([id number]) OFFICE/OUTPATIENT VISIT EST Diagnosis: Rash and other nonspecific skin eruption[ICD10: R21] Aziza [facility] CPT-4: 97093 03/27/2016 ([id number]) OFFICE/OUTPATIENT VISIT EST Diagnosis: Urinary tract infection, site not specified[ICD10: N39.0] Keily [facility] CPT-4: 88607 03/23/2016 ([id number]) OFFICE/OUTPATIENT VISIT EST Diagnosis: Retention of urine, unspecified[ICD10: R33.9] Diagnosis: Dysuria[ICD10: R30.0] Diagnosis: Constipation, unspecified[ICD10: K59.00] Aziza Magallanes SIOMARA LAWTON Diamante [facility] CPT-4: 00005 03/19/2016 ([id number]) OFFICE/OUTPATIENT VISIT EST Diagnosis: Acute sinusitis, unspecified[ICD10: J01.90] Keily [facility] CPT-4: 48695 03/02/2016 OFFICE/OUTPATIENT VISIT EST Diagnosis: Other fatigue[ICD10: R53.83] Diagnosis: Retention of urine, unspecified[ICD10: R33.9] Diagnosis: Dysuria[ICD10: R30.0] Diagnosis: Generalized abdominal pain[ICD10: R10.84] 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] Aziza [facility] CPT-4: 04129 02/24/2016 ([id number]) OFFICE/OUTPATIENT VISIT EST Diagnosis: Chronic mucoid otitis media, right ear[ICD10: H65.31] Diagnosis: Allergic rhinitis, unspecified[ICD10: J30.9] Diagnosis: 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] Keily ARANGO [facility] CPT-4: 04734 12/16/2015 ([id number]) OFFICE/OUTPATIENT VISIT EST Diagnosis: Allergic rhinitis, unspecified[ICD10: J30.9] Diagnosis: Acute recurrent sinusitis, unspecified[ICD10: J01.91] Keily ARANGO [facility] CPT-4: 68817 11/12/2015 ([id number]) OFFICE/OUTPATIENT VISIT EST Diagnosis: Other seasonal allergic rhinitis[ICD10: J30.2] Diagnosis: Nausea with vomiting, unspecified[ICD10: R11.2] Diagnosis: Epigastric pain[ICD10: R10.13] Aziza [facility] CPT-4: 71125 10/16/2015 OFFICE/OUTPATIENT VISIT EST Diagnosis: Encounter for follow-up examination after completed treatment for conditions other than malignant neoplasm[ICD10: Z09] Diagnosis: Generalized abdominal pain[ICD10: R10.84] Keily [facility] CPT-4: 76657 09/23/2015 ([id number]) OFFICE/OUTPATIENT VISIT EST Diagnosis: Otitis media, unspecified, right ear[ICD10: H66.91] Diagnosis: Constipation, unspecified[ICD10: K59.00] Diagnosis: Allergic rhinitis, unspecified[ICD10: J30.9] Aziza [facility] CPT-4: 00829 09/20/2015 OFFICE/OUTPATIENT VISIT EST Diagnosis: Allergic rhinitis, unspecified[ICD10: J30.9] Diagnosis: Unspecified perforation of tympanic membrane, right ear[ICD10: H72.91] Bibiana Garg KEILY [facility] CPT-4: 12610 09/10/2015 OFFICE/OUTPATIENT VISIT NEW Diagnosis: Epilepsy, unspecified, intractable, without status epilepticus[ICD10: G40.919] Diagnosis: Gastric ulcer, unspecified as acute or chronic, without hemorrhage or perforation[ICD10: K25.9] Diagnosis: Severe intellectual disabilities[ICD10: F72] Keily [facility] CPT-4: 93296 08/21/2015 Plan of Care Planned Activity Notes [...] H92.03 10/23/2019 Patient Education: cefdinir- [employer] Coupon [id number] https://www.Mundi.[employer]/samplemd/resources/getResource/61/2155771y-r9jf-11eh-89 Completed 10/23/2019 Appointment: Keily Arango WPtel: [address] [facility] US INJECTION 10/06/2019 Visit Diagnosis Plan: Allergic [...] : J30.9 10/05/2019 Appointment: Fatou Onofre [facility] TELEMEDICINE 10/05/2019 Visit Diagnosis Plan: Sinusitis Discussion: due to dean h of illness and symptoms, cefdinir prescribed to take as directed. call office with any new or worsening symptoms. ICD-9 : 473.9 ICD-10 : J32.9 07/25/2019 Appointment: Fatou Onofre [address] ACUTE ILLNESS 07/25/2019 Patient Education: cefdinir- [employer] Coupon [id number] https://www.[employer]undi.com/samplemd/resources/getResource/61/my5z8ufg-9036-2533-1q Completed 07/25/2019 Visit Diagnosis Plan: Chronic pancreatitis Discussion: Continue zenpep and recheck CMP with amylase/lipase in 1 month ICD-9 : 577.1 ICD-10 : K86.1 06/12/2019 Appointment: Keily Arango WPtel: [phone] Annual Well Visit 06/12/2019 Visit Diagnosis [...] : J18.9 05/08/2019 Appointment: Keily Arango WPtel: [facility] [place] [address] Hospital Follow Up 05/08/2019 Visit Diagnosis [...] ICD-10 : J30.1 05/03/2019 Appointment: Fatou Onofre [address] [place] [address] ACUTE ILLNESS 05/03/2019 Patient Education: amoxicillin- [employer] Coupon [id number] https://www.Mundi.com/samplemd/resources/getResource/61/cew73982-92r9-4062-37 Completed 05/03/2019 Visit Diagnosis Plan: Irritability and [...] ICD-10 : R45.4 11/25/2018 Appointment: Nataliia Hsieh [address] [place] [address] ACUTE ILLNESS 11/25/2018 Visit Diagnosis Plan: Acute suppurative otitis media without spontaneous rupture of ear drum, bilateral Discussion: cefdinir for 10 days. if wor sening symptoms later this week, call clinic. push fluids and tylenol/ibuprofen prn pain or fever. ICD-9 : 382.00 ICD-10 : H66.003 06/13/2018 Appointment: Fatou Onofre [address] [place] [address] ACUTE ILLNESS 06/13/2018 Visit Diagnosis Plan: Anuria [...] ICD-10 : R53.83 01/04/2018 Appointment: Fatou Onofre [address] [place] [address] ACUTE ILLNESS 01/04/2018 Patient Education: Patient Medication Summary Completed 01/04/2018 Visit Diagnosis Plan: Acute bronchitis, unspecified Di scussion: zithromax prescribed to take as directed. continue with allergy meds including flonase to help dry congestion. call office next week if new or worsening symptoms. ICD-9 : 466.0 ICD-10 : J20.9 12/31/2017 Appointment: Fatou Onofre [address] [place] [address] ACUTE ILLNESS 12/31/2017 Patient Education: Patient Medication Summary Completed 12/31/2017 Visit Diagnosis Plan: Epilepsy, unspecif ied, intractable, without status epilepticus Discussion: Stable on current regimen ICD-9 : 345.91 ICD-10 : G40.919 12/14/2017 Visit Diagnosis Plan: Encounter for general acute hospital medical examination without abnormal findings Discussion: Had recent lab done Follow Up: 3 months ICD-9 : V70.9 ICD-10 : Z00.00 12/14/2017 Visit Diagnosis Plan: Allergic rhinitis due to pollen Discussion: Continue current meds Change night time protonix to pepcid for total histamine blockade ICD-9 : 477.9 ICD-10 : J30.1 12/14/2017 Appointment: Keily Arango WPtel: [address] [place] [address] CHECK UP 12/14/2017 Patient Education: Patient Medication [...] : J30.1 12/02/2017 Appointment: Keily Arango WPtel: [facility] [place] [address] ACUTE ILLNESS 12/02/2017 Patient Education: Patient Medication Summary Completed 12/02/2017 Visit Diagnosis Plan: Other allergic rhinitis Discussi on: symptoms most likely caused from allergies. patient sent to hospital for decadron injection. instructed to restart patient's flonase at home. if new or worsening symptoms, call or rtc. ICD-9 : 477.8 ICD-10 : J30.89 10/12/2017 Appointment: Fatou Onofre [address] [place] [address] ACUTE ILLNESS 10/12/2017 Patient Education: Patient Medication [...] ICD-10 : G40.919 09/17/2017 Appointment: Fatou Onofre [address] [place] [address] ACUTE ILLNESS 09/17/2017 Patient Education: Patient Medication Summary Completed 09/17/2017 Visit Diagnosis Plan: Otitis media, unspecified, left ear Discussion: cefdinir prescribed daily for 10 days. instructed to administer tylenol/ibuprofen for pain or fever. if no improvement, or worsening symptoms, call or rtc. ICD-9 : 380.14 ICD-10 : H66.92 08/06/2017 Appointment: Fatou Onofre [address] [place] [address] ACUTE ILLNESS 08/06/2017 Patient Education: Patient Medication Summary Completed 08/06/2017 Patient Education: Patient Medication Summary Completed 08/02/2017 Patient Education: Patient Medication Summary Completed 04/21/2017 Care Plan: MRI BRAIN STEM W/O DYE [facility] : 41663-4 Pending 04/21/2017 Patient Education: Patient Medication Summary Completed 04/20/2017 Care Plan: MRI BRAIN STEM W/O DYE LOINC : 36951-6 Pending 04/20/2017 Visit Diagnosis Plan: Vertigo of central origin, unspe cified ear Discussion: Continue meclizine at 12.5mg po BID for 2 more weeks then go to 12.5mg daily for 2 weeks then 6.25mg daily for 2 weeks then stop Notify if any symptoms return with weaning process ICD-9 : 386.2 ICD-10 : H81.49 04/01/2017 Appointment: Keily Arango WPtel: [address] [place], [place] [phone] FOLLOW UP 04/01/2017 Patient Education: Patient Medication Summary Completed 04/01/2017 Patient Education: Patient Medication Summary Completed 03/09/2017 Care Plan: CT HEAD/BRAIN W/O DYE LOINC : 11979-6 Pending 03/09/2017 Visit Plan: It's difficult to [...] medications indicated. 03/01/2017 Appointment: Emely Hdz WPtel: [address] [place], [place] [phone] ACUTE ILLNESS 03/01/2017 Patient Education: Patient Medication Summary Completed 03/01/2017 Patient Education: Patient Medication Summary Completed 12/17/2016 Visit Diagnosis Plan: Allergic rhinitis due to pollen Discussion: Continue zyrtec/singulair ICD-9 : 477.9 ICD-10 : J30.1 11/10/2016 Visit Diagnosis Plan: Acute and subacute allergic otitis media (mucoid) (sanguinous) (serous), left ear Discussion: Zithromax ICD-9 : 381.05 ICD-10 : H65.112 11/10/2016 Appointment: Keily Arango WPtel: [facility] [place] [place], [place] [phone] ACUTE ILLNESS 11/10/2016 Patient Education: Patient Medication Summary Completed 11/10/2016 Patient Education: Patient Medication Summary Completed 09/07/2016 Care Plan: URINALYSIS [place] : 46480-6 Pending 09/07/2016 Visit Diagnosis Plan: Unspecified ovarian [...] : N20.0 08/13/2016 Appointment: Keily Arango WPtel: [address] [place], [place] [phone] 08/12 confirmed-sp FOLLOW UP 08/13/2016 Patient Education: Patient Medication Summary Completed 08/13/2016 Patient Education: Patient Medication Summary Completed 05/19/2016 Care Plan: X-RAY EXAM OF FOOT left foot LOINC : 26 095-0 Pending 05/19/2016 Visit Plan: Discussed with Dr Conchita MAGANA C to be drawn Order sent to Will call with results 03/27/2016 Appointment: Elpidio Aziza [address] [id number] ACUTE ILLNESS 03/27/2016 Patient Education: Patient Medication Summary Completed 03/27/2016 Visit Plan: Go for dose of rocephin 1gm IM today and tomorrow then done Diflucan 150mg x1 today Discussed with mom via phone about urology fwup--she will talk with her and let us know 03/23/2016 Appointment: Keily Arango WPtel: [address] [place], [place] [phone] 03/23 confirmed ~sl FOLLOW UP 03/23/2016 Patient Education: Patient Medication Summary Completed 03/23/2016 Visit Plan: Per Dr Arango, straight cat h for UA and culture today Ok to have a standing order for further UA needs at for straight cath Rocephin IM today and daily through Wednesday Mom has arranged a family friend that is an HOSPITAL WELLNESS COORDINATOR to give Wednesday and Sundays injections - [...] let us know 03/19/2016 Appointment: Aziza Magallanes [address] [place], [place] [id number] ACUTE ILLNESS 03/19/2016 Patient Education: Patient Medication Summary Completed 03/19/2016 Visit Plan: 1 more week of cefdinir 03/02/2016 Appointment: Keily Arango WPtel: [address] [place], [place] [phone] 03/02 confirmed~sl WORK IN 03/02/2016 Patient Education: [...] if worsening 02/24/2016 Appointment: Aziza Magallanes [address] [facility] ACUTE ILLNESS 02/24/2016 Patient Education: Patient Medication Summary Completed 02/24/2016 Care Plan: CHEST X-RAY 2VW FRONTAL&LATL LOINC : 84512-0 Pending 02/24/2016 Care Plan: X-RAY EXAM OF ABDOMEN LOINC : 00041-0 Pending 02/24/2016 Visit Plan: Repeat zithromax x1 week Cip rodex to right ear x1 week Add Pepcid q HS x2-4 weeks for total histamine blockade and for extra stomach protection while on zithromax 12/16/2015 Appointment: Keily Arango WPtel: [address] [facility] US 6/9 lm~sl 6/10 lm ~sl FOLLOW UP 12/16/2015 Patient Education: Patient Medication Summary Completed 12/16/2015 Patient Education: [facility] - Saving Auto[employer] - Sertraline HCL - 18-64 - Dynamic Portal ID Completed 12/16/2015 Visit Plan: Saline nasal flushes prn. Ty lenol/Motrin prn headache. Notify if persists/symptoms worsens Dexamethasone given 11/12/2015 Appointment: Keily Arango WPtel: [address] [facility] US 5/9 lm~sl 5/10 lm~sl 5/10 confirm-sp [...] for Belkys 10/16/2015 Appointment: Aziza Magallanes [address] [facility] ACUTE ILLNESS 10/16/2015 Patient Education: Patient Medication Summary Completed 10/16/2015 Appointment: Aziza Magallanes [address] [facility] US canceled, feeling better CANCELED 016 Visit Plan: No further abx needed [facility] restart carafate Notify if abdominal pain worsens 09/23/2015 Appointment: Keily Arango WPtel: [address] [facility] [place] 09/19 confirmed-sp FOLLOW UP 09/23/2015 Patient [...] done in the past. Order sent to [facility] since [facility] does not have in stock. [...] for now. 09/20/2015 Appointment: Aziza Magallanes [address] ACUTE ILLNESS 09/20/2015 Patient Education: Patient Medication Summary Completed 09/20/2015 Visit Plan: Depo Medrol 40mg/ Kenalog 40 mg IM today Resume Ciprodex otic gtts. bid to Rt. ear 09/10/2015 Appointment: Bibiana Garg WPtel: [address] [facility] 09/08 confirmed-sp ACUTE ILLNESS 09/10/2015 Patient Education: Patient Medication Summary Completed 09/10/2015 Visit Plan: Increase Protonix to 40mg po BID for 1month Continue carafate at q AC dosing for full month then wean off Jevity for 2 more days then advance diet if able Continue current meds 08/21/2015 Appointment: Keily Arango WPtel: [address] [facility] NEW PATIENT 08/21/2015 Patient Education: Patient Medication [...] arranged a family friend that is an HOSPITAL WELLNESS COORDINATOR to give Wednesday and Sundays injections - [...] done in the past. Order sent to [facility] since [facility] does not have in stock. [...]
--- NOTE | 2019-11-10 19:29 | ED GI ---
General Chief Complaint: Catheter/Drain/Tube Problems Stated Complaint: SATNAM BUTTON CAME OUT Source of Information: Patient Exam Limitations: No Limitations History of Present Illness Date Seen by Provider: November 10, 2019 Time Seen by Provider: 19:25 Initial Comments To ER with reports that Satnam button came out. It fell out from Her chair about 20 minutes ago, unsure if it actually fell out of her abdomen at that time or if which it just fell out of her shirt Timing/Duration: 1-2 Days Severity/Quality: Moderate Radiation: No Radiation Activities at Onset: None Allergies and Home Medications Allergies Coded Allergies: No Known Drug Allergies (Verified , 07/13/18) Home Medications Cetirizine HCl 10 Mg Tab.chew, 10 MG PO DAILY, (Reported) Diazepam 5 Mg Tablet, 2.5 MG PO HS, (Reported) Lactobacillus Acidophilus 1 Each Capsule, 1 EACH PO DAILY, (Reported) Lactulose 10 Gm/15 Ml Solution, 10 GM PO BID, (Reported) Meclizine HCl 12.5 Mg Tablet, PO TID, (Reported) Montelukast Sodium 10 Mg Tablet, 10 MG PO DAILY, (Reported) Ondansetron HCl 4 Mg/5 Ml Solution, 4 MG PO Q4H PRN for NAUSEA/VOMITING Prescribed by: HODAN GRIMALDO on 05/03/191918 Oxcarbazepine 300 Mg/5 Ml Oral.susp, 13.5 ML GT DAILY, (Reported) Oxcarbazepine 300 Mg/5 Ml Oral.susp, 15 ML GT HS, (Reported) Pantoprazole Sodium 40 Mg Tablet.dr, 40 MG PO DAILY, (Reported) Sertraline HCl 50 Mg Tablet, 50 MG PO HS, (Reported) Patient Home Medication List Home Medication List Reviewed: Yes Review of Systems Review of Systems Constitutional: see HPI EENTM: No Symptoms Reported Respiratory: No Symptoms Reported Cardiovascular: See HPI Gastrointestinal: See HPI, Abdominal Pain Genitourinary: No Symptoms Reported Musculoskeletal: no symptoms reported Skin: no symptoms reported Psychiatric/Neurological: No Symptoms Reported Endocrine: No Symptoms Reported Hematologic/Lymphatic: No Symptoms Reported Past Biefrwp-Kimpet-Zoxlzz Hx Patient Social History 2nd Hand Smoke Exposure: No Recent Foreign Travel: No Contact w/Someone Who Travel: No Recent Hopitalizations: No Immunizations Up To Date Tetanus Booster (TDap): Less than 5yrs Date of Pneumonia Vaccine: Dec 27, 2013 Date of Influenza Vaccine: Apr 11, 2018 Seasonal Allergies Seasonal Allergies: Yes Past Medical History Surgeries: Yes (NEPHROSTOMY, G-TUBE, SALIVARY GLAND, MULTIPLE ORTHO SURGERIES, BMT'S,EGD'S ) Ear Surgery, Eye Surgery, Gallbladder, Orthopedic Respiratory: Yes Pneumonia Cardiac: No Neurological: Yes (SEVERE MR) Developmental Disorder, Seizure Disorder, Vertigo Reproductive Disorders: No (RECIEVES SHOTS EVERY 3 MONTHS) Genitourinary: Yes Kidney Stones, UTI-Chronic Gastrointestinal: Yes (PEG tube) Pancreatitis, Ulcer Musculoskeletal: Yes (LOW MUSCLE TONE, POINTS TOES DOWN, MULTIPLE HIP DISLOCATIONS) Endocrine: No HEENT: Yes Chronic Ear Infection Cancer: No Psychosocial: Yes (MR/DEVELOPMENTAL DELAY) Integumentary: No Blood Disorders: No Adverse Reaction/Blood Tranf: No Family Medical History Cancer Dementia Family history: Allergy Family history: Arthritis Family history: Asthma Family history: Breast disease Family history: Cardiovascular disease Family history: Diabetes mellitus Family history: Gastrointestinal disease Family history: Hypertension Family history: Osteoporosis Hearing loss Heart disease Stroke No Family History of: Abdominal aortic aneurysm Roxbury's disease Alcoholism Aphasia Cancer of colon Cataract Chest pain Congenital heart disease Congestive heart failure Cystic fibrosis Dysphagia Family history: Alzheimer's disease Family history: Coronary thrombosis Family history: Glaucoma Family history: Thyroid disorder Headache Hereditary disease History of - anemia History of - disorder History of - respiratory disease History of drug abuse Human immunodeficiency virus (HIV) seropositivity Hypercholesterolemia Infertile Kidney disease Malignant neoplasm of lung Myocardial infarction Parkinson's disease Prostate cancer Psychotic disorder Seizure disorder Tuberculosis Visual impairment Physical Exam Vital Signs Vital Signs - First Documented 11/10/19 19:24 Temp 36.6 Pulse 83 Resp 20 B/P (MAP) 124/86 (99) Pulse Ox 97 O2 Delivery Room Air Capillary Refill : Height/Weight/BMI Height: 4'8.00" Weight: 91lbs. 0.0oz. 41.726179ii; 28.00 BMI Method:Stated General Appearance: WD/WN, no apparent distress, other (developmentally delayed,) Neck: non-tender, full range of motion Respiratory: no respiratory distress, no accessory muscle use Gastrointestinal: normal bowel sounds, soft, other (unable to insert the 20 [place] Satnam button that she brought from home. I've applied Urojet topically, we'll use Hodgeman sounds to dilate the tract and then insert the PEG tube.) Extremities: normal range of motion, non-tender Skin: normal color, warm/dry Exam Comments History provided by mother. Progress/Results/Core Measures Results/Orders My Orders Orders - CARLYN DESIR APRN Peg Tube Check (11/10/19 19:20) Lidocaine 2% (Urojet) (Xylocaine Urojet) (11/10/19 19:30) Lidocaine 2% (Urojet) (Xylocaine Urojet) (11/10/19 19:15) Medications Given in ED Current Medications Medications Dose Ordered Sig/Fawad Route Start Time Stop Time Status Last Admin Dose Admin Lidocaine HCl 10 ml ONCE ONCE TOP 11/10/19 19:30 11/10/19 19:31 DC 11/10/19 19:24 10 ML Vital Signs/I&O 11/10/19 19:24 Temp 36.6 Pulse 83 Resp 20 B/P (MAP) 124/86 (99) Pulse Ox 97 O2 Delivery Room Air Departure Communication (Admissions) Using only the smallest dilator inserted to about 2-3 inches, I was then able to get the Satnam button gastrostomy tube in place, balloon was filled with 6 L of sterile saline. Sent over to x-ray for PEG tube check Impression Primary Impression: PEG tube malfunction Disposition: 01 HOME, SELF-CARE Condition: Stable Departure-Patient Inst. Decision time for Depature: 19:35 Referrals: VIJAY GALVEZ DO (PCP/Family) Primary Care Physician Patient Instructions: How to Care for Your PEG Tube Add. Discharge Instructions: 1. Return to ER for any concerns All discharge instructions reviewed with patient and/or family. Voiced understanding. CARLYN DESIR APRN November 10, 2019 19:29
--- OUTSIDE RECORDS SUMMARY | 2019-11-10 19:29 | XMS REPORT | CCD ---
Author Author Belkys Arango D.O. Organization KEILY ARANGO DO [facility] Address [address] [place] [address] Phone Care Team Providers Care Ink Printer Name Role Phone Keily Arango D.O., PP Unavailable CCM Unavailable Summary Purpose Interface Exchange Insurance Providers Payer name Policy type / Coverage type Covered alliance party ID Effective Begin Date Effective End Date [employer] [facility] Medicaid [id number] U nknown Family History Family History data not found Social History Social History Element Codes Description Effective Dates Marital status Unknown Single 08/21/2015 Employment Unknown Currently unemployed Physically handicapped 08/21/[address]: 665014991 Has never smoked or chewed tobacco 08/21/[address]: 769116952 Never drinks alcohol 2015 Allergies, Adverse Reactions, [...] 10 mg-300 mg/15 mL oral solution RxNorm: 64745 45 8 Milliliter(s) Oral Q6-8H as needed 10/23/2019 10/23/2019 Inactive cefdinir 250 mg/5 mL oral suspension RxNorm: 910612 12 Milliliter(s) Oral QD though PEG tube 10/23/2019 11/01/2019 Active Protonix 40 mg tablet,delayed release RxNorm: 852268 1 Tablet(s) Oral or per feeding tube two times a day 10/16/2019 04/12/2020 Active Zenpep 40,000 unit-126,000 unit-168,000 unit capsule,d elayed release RxNorm: 4462779 1 Capsule(s) Oral AC 10/16/2019 02/12/2020 Active Ciprodex 0.3 %-0.1 % ear drops,suspension RxNorm: 412148 SHAKE LIQUID AND INSTILL 4 DROPS IN AFFECTED EAR(S) TWICE DAILY 09/22/2019 10/15/2019 I nactive diazepam 10 mg tablet RxNorm: 554364 TAKE 1 TABLET BY M OUTH EVERY NIGHT AT BEDTIME NEEDED 09/11/2019 10/10/2019 Inactive meclizine 12.5 mg tablet RxNorm: 017878 TAKE 1 TABLET B Y MOUTH THREE TIMES DAILY NEEDED 08/31/2019 10/29/2019 Active Ciprodex 0.3 %-0.1 % ear drops,suspension RxNorm: 958695 SHAKE LIQUID AND INSTILL 4 DROPS IN AFFECTED EAR(S) TWICE DAILY 08/31/2019 09/07/2019 I nactive Ciprodex 0.3 %-0.1 % ear drops,suspension RxNorm: 691132 SHAKE LIQUID AND INSTILL 4 DROPS IN AFFECTED EAR(S) TWICE DAILY 08/11/2019 08/18/2019 I nactive meclizine 12.5 mg tablet RxNorm: 565751 TAKE 1 TABLET B Y MOUTH THREE TIMES DAILY NEEDED 08/04/2019 08/30/2019 Inactive cefdinir 250 mg/5 mL oral suspension RxNorm: 296460 12 Milliliter(s) Oral QD though PEG tube 07/25/2019 08/03/2019 Inactive Zenpep 40,000 unit-126,000 unit-168,000 unit capsule,d elayed release RxNorm: 3914080 1 Capsule(s) Oral AC 07/10/2019 10/15/2019 Inactive famotidine 20 mg tablet RxNorm: 230341 TAKE 1 TABLET BY MOUTH EVERY NIGHT AT BEDTIME 07/09/2019 01/04/2020 Active sertraline 50 mg tablet RxNorm: 660611 TAKE 1 TABLET BY MOUTH EVERY NIGHT AT BEDTIME 07/09/2019 09/06/2019 Inactive Zenpep 40,000 unit-126,000 unit-168,000 unit capsule,d elayed release RxNorm: 3576752 1 Capsule(s) Oral AC 06/12/2019 07/09/2019 Inactive Zenpep 40,000 unit-126,000 unit-168,000 unit capsule,d elayed release RxNorm: 9250228 1 Capsule(s) Oral AC 05/24/2019 05/23/2019 Inactive Zenpep 40,000 unit-126,000 unit-168,000 unit capsule,d elayed release RxNorm: 7724533 1 Capsule(s) Oral AC 05/24/2019 10/16/2019 Inactive Ciprodex 0.3 %-0.1 % ear drops,suspension RxNorm: 654791 DROP(S) 4 DROP(S) OTIC BID 05/22/2019 06/18/2019 Inactive oxcarbazepine 300 mg/5 mL (60 mg/mL) oral suspension RxNorm: 844728 15 Milliliter(s) Oral two times a day 05/08/2019 11/03/2019 Active meclizine 12.5 mg tablet RxNorm: 742010 1 TABLET(S) PO TID NEEDE D 05/05/2019 08/02/2019 Inactive change in quantity Zithromax 200 mg/5 mL oral suspension RxNorm: 651923 12.5 Dilcia liter(s) Oral QD 05/04/2019 05/09/2019 Inactive amoxicillin 400 mg/5 mL oral suspension RxNorm: 393184 10 Milliliter(s) Oral two times a day 05/03/2019 05/13/2019 Inactive Singulair 10 mg tablet RxNorm: 913920 1 TABLET(S) PO QD 03/28/2019 Inactive Macrobid 100 mg capsule RxNorm: 817569 1 Capsule(s) PO BID 03/16/2003/22/2019 Inactive meclizine 12.5 mg tablet RxNorm: 936949 1 Tablet(s) PO TID as neede d 03/10/2019 05/04/2019 Inactive change in quantity Ciprodex 0.3 %-0.1 % ear drops,suspension RxNorm: 621694 DROP(S) 4 DROP(S) OTIC BID 03/08/2019 04/04/2019 Inactive oxcarbazepine 300 mg/5 mL (60 mg/mL) oral suspension RxNorm: 600311 15 Milliliter(s) PO BID 03/07/2019 05/07/2019 Inactive Macrobid 100 mg capsule RxNorm: 225918 1 Capsule(s) PO BID 02/21/2003/01/2019 Inactive Macrobid 100 mg capsule RxNorm: 482909 1 Capsule(s) PO BID 02/21/2002/19/2019 Inactive meclizine 12.5 mg tablet RxNorm: 732954 1 Tablet(s) PO TID as neede d 02/06/2019 03/07/2019 Inactive change in quantity Ciprodex 0.3 %-0.1 % ear drops,suspension RxNorm: 546730 DROP(S) 4 DROP(S) OTIC BID 01/30/2019 02/12/2019 Inactive diazepam 10 mg tablet RxNorm: 343364 1 Tablet(s) PO QHS as needed 0 01/27/2019 09/10/2019 Inactive sertraline 50 mg tablet RxNorm: 065940 1 Tablet(s) PO QHS 12/29/2018 06/26/2019 Inactive famotidine 20 mg tablet RxNorm: 523065 1 Tablet(s) PO QHS 12/29/2018 06/26/2019 Inactive Ciprodex 0.3 %-0.1 % ear drops,suspension RxNorm: 550437 DROP(S) 4 DROP(S) OTIC BID 12/14/2018 12/27/2018 Inactive Generlac 10 gram/15 mL oral solution RxNorm: 455551 15 Milliliter(s) PO TWO TO THREE TIMES DAILY 12/06/2018 06/03/2019 Inactive Protonix 40 mg tablet,delayed release RxNorm: 418951 1 Tablet(s) PO or per feeding tube BID 11/24/2018 10/15/2019 Inactive meclizine 12.5 mg tablet RxNorm: 083748 1 Tablet(s) PO TID as neede d 11/11/2018 02/06/2019 Inactive change in quantity Ciprodex 0.3 %-0.1 % ear drops,suspension RxNorm: 315365 DROP(S) 4 DROP(S) OTIC BID 11/08/2018 11/21/2018 Inactive diazepam 10 mg tablet RxNorm: 165716 1 Tablet(s) PO QHS as needed 0 10/21/2018 11/19/2018 Inactive Generlac 10 gram/15 mL oral solution RxNorm: 626777 Mil liliter(s) 15 MILLILITER(S) PO TWO TO THREE TIMES DAILY 10/07/2018 11/05/2018 Inacti ve Ciprodex 0.3 %-0.1 % ear drops,suspension RxNorm: 177912 DROP(S) DROP(S) 4 DROP(S) OTIC BID 08/26/2018 03/15/2019 Inactive meclizine 12.5 mg tablet RxNorm: 647601 1 TABLET(S) PO TID NEEDE D 07/25/2018 10/22/2018 Inactive change in quantity oxcarbazepine 300 mg/5 mL (60 mg/mL) oral suspension RxNorm: 633300 15 Milliliter(s) PO BID 07/08/2018 07/07/2018 Inactive oxcarbazepine 300 mg/5 mL (60 mg/mL) oral suspension RxNorm: 891192 15 Milliliter(s) PO BID 07/08/2018 01/03/2019 Inactive sertraline 50 mg tablet RxNorm: 085718 1 TABLET(S) PO QHS 07/06/2018 12/28/2018 Inactive Singulair 10 mg tablet RxNorm: 370455 1 TABLET(S) PO QD 06/24/2018 Inactive Ciprodex 0.3 %-0.1 % ear drops,suspension RxNorm: 608326 DROP(S) 4 DROP(S) OTIC BID 06/20/2018 06/19/2018 Inactive Ciprodex 0.3 %-0.1 % ear drops,suspension RxNorm: 437327 Drop(s) DROP(S) 4 DROP(S) OTIC BID 06/20/2018 07/03/2018 Inactive cefdinir 250 mg/5 mL oral suspension RxNorm: 395667 12 Milliliter(s) PO QD though PEG tube 06/13/2018 06/22/2018 Inactive famotidine 20 mg tablet RxNorm: 092911 1 Tablet(s) PO QHS 05/31/2018 11/26/2018 Inactive famotidine 40 mg/5 mL (8 mg/mL) oral suspension RxNorm: 3102 74 2.5 Milliliter(s) PO QHS 04/29/2018 06/12/2018 Inactive meclizine 12.5 mg tablet RxNorm: 292653 1 TABLET(S) PO TID NEEDE D 04/25/2018 07/23/2018 Inactive change in quantity Generlac 10 gram/15 mL oral solution RxNorm: 668332 Mil liliter(s) 15 MILLILITER(S) PO TWO TO THREE TIMES DAILY 04/04/2018 05/03/2018 Inacti ve Ciprodex 0.3 %-0.1 % ear drops,suspension RxNorm: 725846 Drop(s) 4 DROP(S) OTIC BID 04/04/2018 04/17/2018 Inactive diazepam 10 mg tablet RxNorm: 829660 1 Tablet(s) PO QHS as needed 1 05/03/2018 Inactive famotidine 40 mg/5 mL (8 mg/mL) oral suspension RxNorm: 3102 74 2.5 Milliliter(s) PO QHS 04/04/2018 04/28/2018 Inactive Generlac 10 gram/15 mL oral solution RxNorm: 009794 15 MILLILITER(S) PO TWO TO THREE TIMES DAILY 03/24/2018 04/03/2018 Inactive Singulair 10 mg tablet RxNorm: 326549 1 TABLET(S) PO QD 03/18/2018 Inactive Ciprodex 0.3 %-0.1 % ear drops,suspension RxNorm: 340588 Drop(s) 4 DROP(S) OTIC BID 03/08/2018 03/21/2018 Inactive Generlac 10 gram/15 mL oral solution RxNorm: 373022 15 Milliliter(s) PO two to three times daily 03/03/2018 03/23/2018 Inactive meclizine 12.5 mg tablet RxNorm: 007386 1 Tablet(s) PO TID as neede d 02/10/2018 04/10/2018 Inactive change in quantity meclizine 12.5 mg tablet RxNorm: 415040 1 Tablet(s) PO BID as neede d 02/07/2018 02/09/2018 Inactive change in quantity Ciprodex 0.3 %-0.1 % ear drops,suspension RxNorm: 374912 Drop(s) 4 DROP(S) OTIC BID 02/02/2018 03/08/2018 Inactive sertraline 50 mg tablet RxNorm: 411642 1 TABLET(S) PO QHS 01/25/2018 07/05/2018 Inactive Zithromax 200 mg/5 mL oral suspension RxNorm: 065039 12.5 Dilcia liter(s) PO QD 12/31/2017 01/04/2018 Inactive Pepcid 20 mg tablet RxNorm: 542215 TABLET(S) 1 TABLET(S) PO QHS 04/29/2018 Inactive famotidine 40 mg/5 mL (8 mg/mL) oral suspension RxNorm: 3102 74 2.5 Milliliter(s) PO QHS 12/28/2017 12/27/2017 Inactive famotidine 40 mg/5 mL (8 mg/mL) oral suspension RxNorm: 3102 74 2.5 Milliliter(s) PO QHS 12/28/2017 04/03/2018 Inactive Ciprodex 0.3 %-0.1 % ear drops,suspension RxNorm: 883374 Drop(s) 4 DROP(S) OTIC BID 12/27/2017 02/02/2018 Inactive meclizine 12.5 mg tablet RxNorm: 260396 1 Tablet(s) PO BID as neede d 12/23/2017 02/06/2018 Inactive change in quantity Protonix 40 mg tablet,delayed release RxNorm: 198885 1 Tablet(s) PO or per feeding tube BID 12/16/2017 07/13/2018 Inactive oxcarbazepine 300 mg/5 mL (60 mg/mL) oral suspension RxNorm: 792235 15 Milliliter(s) PO BID 12/16/2017 07/08/2018 Inactive meclizine 12.5 mg tablet RxNorm: 087699 1 Tablet(s) PO BID as neede d 12/15/2017 02/07/2018 Inactive change in quantity Pepcid 40 mg/5 mL (8 mg/mL) oral suspension RxNorm: 727981 5 Milliliter(s) PO QHS to replace nighttime pantoprazole dose 12/14/2017 12/27/2017 Inact марина meclizine 12.5 mg tablet RxNorm: 004219 1 Tablet(s) PO BID as neede d 12/13/2017 12/23/2017 Inactive diazepam 10 mg tablet RxNorm: 934139 1 Tablet(s) PO QHS as needed 0 12/02/2017 03/01/2018 Inactive prednisolone 15 mg/5 mL oral solution RxNorm: 825926 5 Milliliter(s) PO BID for 3 days then 5ml daily for 3 days then 2.5ml daily for 3 days 12/02/2017 12/13/2017 Inactive sertraline 50 mg tablet RxNorm: 968575 1 Tablet(s) PO QHS 11/04/2017 01/24/2018 Inactive Ciprodex 0.3 %-0.1 % ear drops,suspension RxNorm: 649493 Drop(s) 4 DROP(S) OTIC BID 10/18/2017 10/31/2017 Inactive Ciprodex 0.3 %-0.1 % ear drops,suspension RxNorm: 648827 Drop(s) 4 DROP(S) OTIC BID 10/18/2017 12/27/2017 Inactive Singulair 10 mg tablet RxNorm: 463863 1 Tablet(s) PO QD 09/30/2017 Inactive diazepam 5 mg/5 mL (1 mg/mL) oral solution RxNorm: 074095 2.5 Milliliter(s) PO QD give additional 5 mg dose if seizure occurs 09/17/2017 No Stop Date A ctive Bactrim DS 800 mg-160 mg tablet RxNorm: 749629 1 Tablet(s) PO BID 0 09/17/2017 09/23/2017 Inactive Ciprodex 0.3 %-0.1 % ear drops,suspension RxNorm: 812980 4 DROP (S) OTIC BID 09/13/2017 10/18/2017 Inactive cefdinir 250 mg/5 mL oral suspension RxNorm: 445979 12 Milliliter(s) PO QD though PEG tube 08/06/2017 08/15/2017 Inactive sertraline 50 mg tablet RxNorm: 572708 1 Tablet(s) PO QHS 08/02/2017 11/04/2017 Inactive Ciprodex 0.3 %-0.1 % ear drops,suspension RxNorm: 398455 4 DROP (S) OTIC BID 07/22/2017 08/11/2017 Inactive Singulair 10 mg tablet RxNorm: 100682 1 Tablet(s) PO QD 06/30/2017 Inactive diazepam 10 mg tablet RxNorm: 393766 TAKE 1 TABLET BY M OUTH EVERY NIGHT AT BEDTIME NEEDED 06/04/2017 07/03/2017 Inactive oxcarbazepine 300 mg/5 mL (60 mg/mL) oral suspension RxNorm: 870164 15 MILLILITER(S) PO BID 05/03/2017 12/16/2017 Inactive sertraline 50 mg tablet RxNorm: 774142 1 Tablet(s) PO QHS 05/03/2017 08/02/2017 Inactive Protonix 40 mg tablet,delayed release RxNorm: 378352 1 Tablet(s) PO or per feeding tube BID 04/26/2017 12/16/2017 Inactive Ciprodex 0.3 %-0.1 % ear drops,suspension RxNorm: 594300 4 DROP (S) OTIC BID 04/26/2017 05/23/2017 Inactive Generlac 10 gram/15 mL oral solution RxNorm: 226648 Mil liliter(s) TAKE 15 ML BY MOUTH TWO-THREE TIMES DAILY 04/08/2017 03/03/2018 Inactive Singulair 10 mg tablet RxNorm: 346858 1 Tablet(s) PO QD 03/03/2017 Inactive diazepam 10 mg tablet RxNorm: 545781 1 Tablet(s) PO QHS as needed 0 02/15/2017 06/04/2017 Inactive Singulair 10 mg tablet RxNorm: 544931 1 Tablet(s) PO QD 12/01/2016 Inactive Diflucan 150 mg tablet RxNorm: 125797 Tablet(s) Give 1 tab PO now and then repeat dose in 5 days 11/10/2016 03/31/2017 Inactive Zithromax 200 mg/5 mL oral suspension RxNorm: 671599 12.5 Dilcia liter(s) PO QD 11/10/2016 11/14/2016 Inactive Singulair 10 mg tablet RxNorm: 443993 TAKE 1 TABLET BY MOUTH ON CE DAILY 11/02/2016 12/01/2016 Inactive diazepam 10 mg tablet RxNorm: 379849 TAKE 1 TABLET BY M OUTH EVERY NIGHT AT BEDTIME NEEDED 10/21/2016 11/19/2016 Inactive sertraline 50 mg tablet RxNorm: 636362 1 Tablet(s) PO QHS 10/12/2016 01/09/2017 Inactive fluconazole 100 mg tablet RxNorm: 316630 1 Tablet(s) PO QD 09/23/19 17 09/24/2016 Inactive fluconazole 100 mg tablet RxNorm: 915311 1 Tablet(s) PO QD 09/23/19 17 09/21/2016 Inactive Bactrim DS 800 mg-160 mg tablet RxNorm: 661495 1 Tablet(s) PO BID 0 09/10/2016 09/09/2016 Inactive Bactrim DS 800 mg-160 mg tablet RxNorm: 522454 1 Tablet(s) PO BID 0 09/10/2016 09/16/2016 Inactive oxcarbazepine 300 mg/5 mL (60 mg/mL) oral suspension RxNorm: 508905 15 Milliliter(s) PO BID 09/07/2016 03/05/2017 Inactive sertraline 50 mg tablet RxNorm: 019126 1 Tablet(s) PO QHS 07/06/2016 10/03/2016 Inactive Pepcid 20 mg tablet RxNorm: 554508 Tablet(s) 1 TABLET(S) PO QHS 08/201603/08/2017 Inactive sertraline 50 mg tablet RxNorm: 996481 1 Tablet(s) PO QHS 06/08/2016 05/03/2017 Inactive Generlac 10 gram/15 mL oral solution RxNorm: 452325 Mil liliter(s) TAKE 15 ML BY MOUTH TWO-THREE TIMES DAILY 06/08/2016 09/08/2016 Inactive Pepcid 20 mg tablet RxNorm: 988410 1 TABLET(S) PO QHS 06/04/201607/2016 Inactive fluconazole 100 mg tablet RxNorm: 506533 1 Tablet(s) QD through PEG tube 05/13/2016 12/01/2017 Inactive Diflucan 150 mg tablet RxNorm: 402720 Give 1 tab PO now and then repeat dose in 5 days 03/19/2016 11/09/2016 Inactive ceftriaxone 1 gram solution for injection RxNorm: 9616778 1 Gram(s) IM QD Wednesday and Wednesday03/19/2016 11/09/2016 Inactive lidocaine 10 mg/mL (1 %) injection solution RxNorm: 8053227 Use as directed to reconstitute Rocephin when needed 03/19/2016 12/13/2017 Inactive Generlac 10 gram/15 mL oral solution RxNorm: 467098 JOE E 15 ML BY MOUTH TWO- THREE TIMES DAILY 03/19/2016 06/07/2016 Inactive oxcarbazepine 300 mg/5 mL oral suspension RxNorm: 770712 15 Milliliter(s) PO BID 03/13/2016 09/07/2016 Inactive Ciprodex 0.3 %-0.1 % ear drops,suspension RxNorm: 606491 4 DROP (S) OTIC BID 03/09/2016 03/15/2016 Inactive cefdinir 250 mg/5 mL oral suspension RxNorm: 823740 11. 75 Milliliter(s) PO QD though PEG tube 03/02/2016 03/08/2016 Inactive cefdinir 250 mg/5 mL oral suspension RxNorm: 526338 11. 75 Milliliter(s) PO QD though PEG tube 02/24/2016 03/01/2016 Inactive cefdinir 250 mg/5 mL oral suspension RxNorm: 257770 11. 75 Milliliter(s) PO QD though PEG tube 02/24/2016 02/23/2016 Inactive Ciprodex 0.3 %-0.1 % ear drops,suspension RxNorm: 244608 4 Drop (s) OTIC BID 02/24/2016 03/01/2016 Inactive Generlac 10 gram/15 mL oral solution RxNorm: 504240 JOE E 15 ML BY MOUTH TWICE DAILY 02/17/2016 03/18/2016 Inactive Generlac 10 gram/15 mL oral solution RxNorm: 670777 15 Millilit er(s) PO BID 01/23/2016 02/16/2016 Inactive Pepcid 20 mg tablet RxNorm: 658425 1 TABLET(S) PO QHS 01/13/201605/07 Inactive Ciprodex 0.3 %-0.1 % ear drops,suspension RxNorm: 935621 4 Drop (s) OTIC BID 12/23/2015 12/29/2015 Inactive sertraline 50 mg tablet RxNorm: 735145 1 Tablet(s) PO QHS 12/16/2015 06/07/2016 Inactive Zithromax 500 mg tablet RxNorm: 234810 1 Tablet(s) PO QD 12/16/2015 0 12/22/2015 Inactive Pepcid 20 mg tablet RxNorm: 834471 1 Tablet(s) PO QHS 12/16/201501/02 Inactive Zithromax 500 mg tablet RxNorm: 545162 1 Tablet(s) PO QD 11/12/2015 0 11/18/2015 Inactive Singulair 10 mg tablet RxNorm: 448437 1 Tablet(s) PO BID 10/16/2015 0 11/11/2015 Inactive diazepam 10 mg tablet RxNorm: 290814 1 Tablet(s) PO QHS 10/07/2015 Inactive diazepam 10 mg tablet RxNorm: 899912 1 Tablet(s) PO QHS 10/07/2015 Inactive fexofenadine 30 mg/5 mL oral suspension RxNorm: 125972 10 Milliliter(s) PO one to two times daily PRN allergies 09/20/2015 12/15/2015 Inactive ceftriaxone 1 gram solution for injection RxNorm: 7121200 1 Gram (s) IM QD 09/20/2015 09/21/2015 Inactive Ciprodex 0.3 %-0.1 % ear drops,suspension RxNorm: 177947 4 Drop (s) OTIC BID 09/20/2015 10/03/2015 Inactive Protonix 40 mg tablet,delayed release RxNorm: 874453 1 Tablet(s) PO or per feeding tube BID 08/21/2015 12/18/2015 Inactive Carafate 100 mg/mL oral suspension RxNorm: 498539 10 Mi lliliter(s) Miscellaneous per feeding tube AC & HS 08/21/2015 09/19/2015 Inactive Zyrtec 10 mg tablet RxNorm: 6166539 1 Tablet(s) PO QD No Start Date Active diazepam 20 mg rectal kit RxNorm: 184517 RTL as needed No Start Date Active ondansetron HCl 4 mg/5 mL oral solution RxNorm: 980541 10 Milliliter(s) PO as needed and through tube No Start Date Active sertraline 50 mg tablet RxNorm: 699197 1 Tablet(s) PO QD No Start D ate 12/15/2015 Inactive Brittany 180 mg tablet RxNorm: 690723 1 Tablet(s) PO QD No Start Date 06/12/2018 Inactive Generlac 10 gram/15 mL oral solution RxNorm: 839001 15 Millilit er(s) PO BID No Start Date 01/22/2016 Inactive oxcarbazepine 300 mg/5 mL oral suspension RxNorm: 194890 13.5 Milliliter(s) PO QAM and 15ml in the evening No Start Date 12/15/2015 Inactive Singulair 10 mg tablet RxNorm: 180718 1 Tablet(s) PO QD No Start Da te 11/30/2016 Inactive meclizine 12.5 mg tablet RxNorm: 845803 1 Tablet(s) PO TID as needed for dizziness No Start Date 09/13/2017 Inactive meclizine 12.5 mg tablet RxNorm: 790663 1 Tablet(s) PO BID No Start Date 12/12/2017 Inactive fluconazole 100 mg tablet RxNorm: 737440 1 Tablet(s) QD through PEG tube No Start Date 05/12/2016 Inactive Lortab Elixir 10 mg-300 mg/15 mL oral solution RxNorm: 39465 45 8 PO Q6-8H as needed No Start Date 10/22/2019 Inactive Flomax 0.4 mg capsule RxNorm: 818402 1 Capsule(s) PO QD No Start Da te 06/12/2018 Inactive diazepam 10 mg tablet RxNorm: 383966 1 Tablet(s) PO QHS as needed N o Start Date 02/14/2017 Inactive Generlac 10 gram/15 mL oral solution RxNorm: 685258 15 Milliliter(s) PO two to three times daily No Start Date 03/02/2018 Inactive oxcarbazepine 300 mg/5 mL oral suspension RxNorm: 751727 15 Milliliter(s) PO BID No Start Date 12/15/2017 Inactive Medication Administered No Medication Administered data Immunizations Vaccine Codes Date Status Influenza CVX: 141 04/21/2019 Results No Results data Procedures Procedure Codes Date DEXAMETHASONE SODIUM PHOS CPT-4: J1100 10/06/2019 THER/PROPH/DIAG INJ SC/IM CPT-4: 54924 10/06/2019 DEXAMETHASONE SODIUM PHOS CPT-4: J1100 05/03/2019 THER/PROPH/DIAG INJ SC/IM CPT-4: 59716 05/03/2019 CEFTRIAXONE SODIUM INJECTION CPT-4: J0696 03/19/2016 THER/PROPH/DIAG INJ SC/IM CPT-4: 34436 03/19/2016 DEXAMETHASONE SODIUM PHOS CPT-4: J1100 11/12/2015 THER/PROPH/DIAG INJ SC/IM CPT-4: 90050 11/12/2015 CEFTRIAXONE SODIUM INJECTION CPT-4: J0696 09/20/2015 THER/PROPH/DIAG INJ SC/IM CPT-4: 04313 09/20/2015 THER/PROPH/DIAG INJ SC/IM CPT-4: 88795 09/10/2015 METHYLPREDNISOLONE 40 MG INJ CPT-4: J1030 09/10/2015 TRIAMCINOLONE ACET INJ NOS CPT-4: J3301 09/10/2015 Vital Signs Date Vital 07/25/2019 Blood Pressure 1: 116/80 Code: 8480-6 BMI: 23.2 Code: 82874-4 Heart Rate 1: 81 bpm Height: 4'5" Respiratory Rate: 16 bpm SpO2: 100% Tempera ture: 36.8 (C) / 98.2 (F) Weight: 92 lbs 06/12/2019 Blood Pressure 1: 112/74 Code: 8480-6 BMI: 23.2 Code: 10725-6 Heart Rate 1: 102 bpm Height: 4'5" [...] 1: 114/70 Code: 8480-6 BMI: 23.1 Code: 94916-0 Heart Rate 1: 80 bpm Height: 4'6" [...] visit Encounters Encounter Performer Location Codes Date ([id number]) OFFICE/OUTPATIENT VISIT EST Diagnosis: Otalgia, bilateral[ICD10: H92.03] Fatou Onofre [employer] CPT-4: 06522 10/23/2019 ([id number]) NURSE/OUTPATIENT VISIT EST Diagnosis: Allergic rhinitis, unspecified[ICD10: J30.9] Keily LINARES [facility] [employer] CPT-4: 26531 10/06/2019 ([id number]) OFFICE/OUTPATIENT VISIT EST Diagnosis: Allergic rhinitis[ICD10: J30.9] Fatou Onofre [employer] CPT-4: 93328 10/05/2019 ([id number]) OFFICE/OUTPATIENT VISIT EST Diagnosis: Sinusitis[ICD10: J32.9] Fatou RIOSLINE VONTRAVELAlicia [employer] CPT-4: 69388 07/25/2019 ([id number]) PREV VISIT EST AGE 18-39 Diagnosis: Encounter for general adult medical examination with abnormal findings[ICD10: Z00.01] Diagnosis: Chronic pancreatitis[ICD10: K86.1] Diagnosis: Cerebral palsy, unspecified[ICD10: G80.9] Keily LINARES SAlicia [employer] CPT-4: 01693 06/12/2019 ([id number]) OFFICE/OUTPATIENT VISIT EST Diagnosis: Pneumonia, organism unspecified[ICD10: J18.9] Diagnosis: Breast mass, right[ICD10: N63.10] Keily ARANGO [facility] CPT-4: 14230 05/08/2019 ([id number]) OFFICE/OUTPATIENT VISIT EST Diagnosis: Allergic rhinitis due to pollen[ICD10: J30.1] Diagnosis: Otitis media, unspecified, right ear[ICD10: H66.91] Fatou ARANGO DO [facility] CPT-4: 46170 05/03/2019 ([id number]) OFFICE/OUTPATIENT VISIT EST Diagnosis: Irritability and anger[ICD10: R45.4] Nataliia ARANGO [facility] CPT-4: 27058 11/25/2018 ([id number]) OFFICE/OUTPATIENT VISIT EST Diagnosis: Acute suppurative otitis media without spontaneous rupture of ear drum, bilateral[ICD10: H66.003] Fatou ARANGO [facility] CPT-4: 82173 06/13/2018 ([id number]) OFFICE/OUTPATIENT VISIT EST Diagnosis: Other fatigue[ICD10: R53.83] Diagnosis: Anuria and oliguria[ICD10: R34] Diagnosis: Acute gastritis without bleeding[ICD10: K29.00] Fatou ARANGO [facility] CPT-4: 28034 01/04/2018 ([id number]) OFFICE/OUTPATIENT VISIT EST Diagnosis: Acute bronchitis, unspecified[ICD10: J20.9] Fatou ARANGO DO [facility] CPT-4: 11789 12/31/2017 ([id number]) PREV VISIT EST AGE 18-39 Diagnosis: Encounter for general adult medical examination without abnormal findings[ICD10: Z00.00] Diagnosis: Severe intellectual disabilities[ICD10: F72] Diagnosis: Allergic rhinitis due to pollen[ICD10: J30.1] Diagnosis: Epilepsy, unspecified, intractable, without status epilepticus[ICD10: G40.919] Diagnosis: Gastro-esophageal reflux disease without esophagitis[ICD10: K21.9] Keily ARANGO [facility] CPT-4: 48993 12/14/2017 ([id number]) OFFICE/OUTPATIENT VISIT EST Diagnosis: Allergic rhinitis due to pollen[ICD10: J30.1] Diagnosis: Epilepsy, unspecified, intractable, without status epilepticus[ICD10: G40.919] Keily Burtondominique KEILY Bobby [facility] CPT-4: 74338 12/02/2017 ([id number]) OFFICE/OUTPATIENT VISIT EST Diagnosis: Other allergic rhinitis[ICD10: J30.89] Fatou Bobby [facility] CPT-4: 01221 10/12/2017 OFFICE/OUTPATIENT VISIT EST Diagnosis: Acute suppurative otitis media without spontaneous rupture of ear drum, recurrent, left ear[ICD10: H66.005] Diagnosis: Epilepsy, unspecified, intractable, without status epilepticus[ICD10: G40.919] Diagnosis: Hesitancy of micturition[ICD10: R39.11] [facility] 45189 09/17/2017 OFFICE/OUTPATIENT VISIT EST Diagnosis: Otitis media, unspecified, left ear[ICD10: H66.92] 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)[ICD10: K56.5] Diagnosis: Personal history of urinary calculi[ICD10: Z87.442] Emely Hdz KEILY Bobby [facility] CPT-4: 41876 03/01/2017 ([id number]) OFFICE/OUTPATIENT VISIT EST Diagnosis: Allergic rhinitis due to pollen[ICD10: J30.1] Diagnosis: Acute and subacute allergic otitis media (mucoid) (sanguinous) (serous), left ear[ICD10: H65.112] Keily [facility] CPT-4: 30951 11/10/2016 ([id number]) OFFICE/OUTPATIENT VISIT EST Diagnosis: 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] Diagnosis: Unspecified ovarian cyst, right side[ICD10: N83.201] Diagnosis: Cyst of kidney, 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] [facility] CPT-[facility]: 31931 08/13/2016 ([id number]) OFFICE/OUTPATIENT VISIT EST Diagnosis: Rash and other nonspecific skin eruption[ICD10: R21] Aziza [facility] CPT-4: 54571 03/27/2016 ([id number]) OFFICE/OUTPATIENT VISIT EST Diagnosis: Urinary tract infection, site not specified[ICD10: N39.0] Keily [facility] CPT-4: 59411 03/23/2016 ([id number]) OFFICE/OUTPATIENT VISIT EST Diagnosis: Retention of urine, unspecified[ICD10: R33.9] Diagnosis: Dysuria[ICD10: R30.0] Diagnosis: Constipation, unspecified[ICD10: K59.00] Aziza Magallanes SIOMARA LAWTON Diamante [facility] CPT-4: 84895 03/19/2016 ([id number]) OFFICE/OUTPATIENT VISIT EST Diagnosis: Acute sinusitis, unspecified[ICD10: J01.90] Keily [facility] CPT-4: 99613 03/02/2016 OFFICE/OUTPATIENT VISIT EST Diagnosis: Other fatigue[ICD10: R53.83] Diagnosis: Retention of urine, unspecified[ICD10: R33.9] Diagnosis: Dysuria[ICD10: R30.0] Diagnosis: Generalized abdominal pain[ICD10: R10.84] 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] Aziza [facility] CPT-4: 39279 02/24/2016 ([id number]) OFFICE/OUTPATIENT VISIT EST Diagnosis: Chronic mucoid otitis media, right ear[ICD10: H65.31] Diagnosis: Allergic rhinitis, unspecified[ICD10: J30.9] Diagnosis: 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] Keily [facility] CPT-4: 19516 12/16/2015 ([id number]) OFFICE/OUTPATIENT VISIT EST Diagnosis: Allergic rhinitis, unspecified[ICD10: J30.9] Diagnosis: Acute recurrent sinusitis, unspecified[ICD10: J01.91] Keily [facility]ANGO [facility] CPT-4: 59875 11/12/2015 ([id number]) OFFICE/OUTPATIENT VISIT EST Diagnosis: Other seasonal allergic rhinitis[ICD10: J30.2] Diagnosis: Nausea with vomiting, unspecified[ICD10: R11.2] Diagnosis: Epigastric pain[ICD10: R10.13] Aziza [facility] CPT-4: 34055 10/16/2015 OFFICE/OUTPATIENT VISIT EST Diagnosis: Encounter for follow-up examination after completed treatment for conditions other than malignant neoplasm[ICD10: Z09] Diagnosis: Generalized abdominal pain[ICD10: R10.84] Keily [facility] CPT-4: 99123 09/23/2015 ([id number]) OFFICE/OUTPATIENT VISIT EST Diagnosis: Otitis media, unspecified, right ear[ICD10: H66.91] Diagnosis: Constipation, unspecified[ICD10: K59.00] Diagnosis: Allergic rhinitis, unspecified[ICD10: J30.9] Aziza [facility] CPT-4: 79495 09/20/2015 OFFICE/OUTPATIENT VISIT EST Diagnosis: Allergic rhinitis, unspecified[ICD10: J30.9] Diagnosis: Unspecified perforation of tympanic membrane, right ear[ICD10: H72.91] Bibiana Garg KEILY [facility] CPT-4: 14298 09/10/2015 OFFICE/OUTPATIENT VISIT NEW Diagnosis: Epilepsy, unspecified, intractable, without status epilepticus[ICD10: G40.919] Diagnosis: Gastric ulcer, unspecified as acute or chronic, without hemorrhage or perforation[ICD10: K25.9] Diagnosis: Severe intellectual disabilities[ICD10: F72] Keily [facility] CPT-4: 15790 08/21/2015 Plan of Care Planned Activity Notes [...] H92.03 10/23/2019 Patient Education: cefdinir- Optimize[employer] Coupon [id number] https://www.Prosper.Intelipost/samplemd/resources/getResource/61/2138254e-a9bh-82vk-88 Completed 10/23/2019 Appointment: Keily Arango WPtel: [phone] [facility] US INJECTION 10/06/2019 Visit Diagnosis Plan: [...] : J30.9 10/05/2019 Appointment: Fatou Onofre 504 [facility] TELEMEDICINE 10/05/2019 Visit Diagnosis Plan: Sinusitis Discussion: due to dean h of illness and symptoms, cefdinir prescribed to take as directed. call office with any new or worsening symptoms. ICD-9 : 473.9 ICD-10 : J32.9 07/25/2019 Appointment: Fatou Onofre [address] ACUTE ILLNESS 07/25/2019 Patient Education: cefdinir- [employer] Coupon [id number] https://www.Prosper.com/samplemd/resources/getResource/61/li1o8wru-3703-1851-6o Completed 07/25/2019 Visit Diagnosis Plan: Chronic pancreatitis Discussion: Continue zenpep and recheck CMP with amylase/lipase in 1 month ICD-9 : 577.1 ICD-10 : K86.1 06/12/2019 Appointment: Keily Arango WPtel: [phone] Annual Well Visit 06/12/2019 Visit Diagnosis [...] : J18.9 05/08/2019 Appointment: Keily Arango WPtel: [facility] [address] Hospital Follow Up 05/08/2019 Visit Diagnosis [...] ICD-10 : J30.1 05/03/2019 Appointment: Fatou Onofre [address] [place] [address] ACUTE ILLNESS 05/03/2019 Patient Education: amoxicillin- [employer] Coupon [id number] https://www.Prosper.com/samplemd/resources/getResource/61/jki85964-03w0-2219-94 Completed 05/03/2019 Visit Diagnosis Plan: Irritability and [...] ICD-10 : R45.4 11/25/2018 Appointment: Nataliia Hsieh [address] [place] [address] ACUTE ILLNESS 11/25/2018 Visit Diagnosis Plan: Acute suppurative otitis media without spontaneous rupture of ear drum, bilateral Discussion: cefdinir for 10 days. if wor sening symptoms later this week, call clinic. push fluids and tylenol/ibuprofen prn pain or fever. ICD-9 : 382.00 ICD-10 : H66.003 06/13/2018 Appointment: Fatou Onofre [address] [place] [address] ACUTE ILLNESS 06/13/2018 Visit Diagnosis Plan: Anuria and oliguria Discussion: marcelinan sent to hospital for outpatient straight cath with C&S if indicated. will review initial urine and order additional treatments as needed. ICD-9 : 788.5 ICD-10 : R34 01/04/2018 Visit Diagnosis Plan: Other fatigue Discussion: conges tion and ears improved since last visit. but see other plan. ICD-9 : 780.79 ICD-10 : R53.83 01/04/2018 Visit Diagnosis Plan: Acute gastritis without bleeding Discussion: see other plans. ICD-9 : 535.00 ICD-10 : K29.00 01/04/2018 Appointment: Fatou Onofre [address] [place] [address] ACUTE ILLNESS 01/04/2018 Patient Education: Patient Medication Summary Completed 01/04/2018 Visit Diagnosis Plan: Acute bronchitis, unspecified Di scussion: zithromax prescribed to take as directed. continue with allergy meds including flonase to help dry congestion. call office next week if new or worsening symptoms. ICD-9 : 466.0 ICD-10 : J20.9 12/31/2017 Appointment: Fatou Onofre [address] [place] [address] ACUTE ILLNESS 12/31/2017 Patient Education: Patient Medication Summary Completed 12/31/2017 Visit Diagnosis Plan: Allergic rhinitis due to pollen Discussion: Continue current meds Change night time protonix to pepcid for total histamine blockade ICD-9 : 477.9 ICD-10 : J30.1 12/14/2017 Visit Diagnosis Plan: Epilepsy, unspecif ied, intractable, without status epilepticus Discussion: Stable on current regimen ICD-9 : 345.91 ICD-10 : G40.919 12/14/2017 Visit Diagnosis Plan: [facility]counter for [facility] medical examination without abnormal findings Discussion: Had recent lab done Follow Up: 3 months ICD-9 : V70.9 ICD-10 : Z00.00 12/14/2017 Appointment: Keily Arango WPtel: [address] [place] [address] CHECK UP 12/14/2017 Patient Education: Patient Medication [...] : J30.1 12/02/2017 Appointment: Keily Arango WPtel: [phone] ACUTE ILLNESS 12/02/2017 Patient Education: Patient Medication Summary Completed 12/02/2017 Visit Diagnosis Plan: Other allergic rhinitis Discussi on: symptoms most likely caused from allergies. patient sent to hospital for decadron injection. instructed to restart patient's flonase at home. if new or worsening symptoms, call or rtc. ICD-9 : 477.8 ICD-10 : J30.89 10/12/2017 Appointment: Fatou Onofre [address] [place] [address] ACUTE ILLNESS 10/12/2017 Patient Education: Patient Medication [...] ICD-10 : G40.919 09/17/2017 Appointment: Fatou Onofre [address] [place] [address] ACUTE ILLNESS 09/17/2017 Patient Education: Patient Medication Summary Completed 09/17/2017 Visit Diagnosis Plan: Otitis media, unspecified, left ear Discussion: cefdinir prescribed daily for 10 days. instructed to administer tylenol/ibuprofen for pain or fever. if no improvement, or worsening symptoms, call or rtc. ICD-9 : 380.14 ICD-10 : H66.92 08/06/2017 Appointment: Fatou Onofre [address] [place] [address] ACUTE ILLNESS 08/06/2017 Patient Education: Patient Medication Summary Completed 08/06/2017 Patient Education: Patient Medication Summary Completed 08/02/2017 Patient Education: Patient Medication Summary Completed 04/21/2017 Care Plan: MRI BRAIN STEM W/O DYE [facility] : 10129-8 Pending 04/21/2017 Patient Education: Patient Medication Summary Completed 04/20/2017 Care Plan: MRI BRAIN STEM W/O DYE LOINC : 45075-1 Pending 04/20/2017 Visit Diagnosis Plan: Vertigo of central origin, unspe cified ear Discussion: Continue meclizine at 12.5mg po BID for 2 more weeks then go to 12.5mg daily for 2 weeks then 6.25mg daily for 2 weeks then stop Notify if any symptoms return with weaning process ICD-9 : 386.2 ICD-10 : H81.49 04/01/2017 Appointment: Keily Arango WPtel: [address] [place], [place] [phone] FOLLOW UP 04/01/2017 Patient Education: Patient Medication Summary Completed 04/01/2017 Patient Education: Patient Medication Summary Completed 03/09/2017 Care Plan: CT HEAD/BRAIN W/O DYE LOINC : 68754-4 Pending 03/09/2017 Visit Plan: It's difficult to [...] medications indicated. 03/01/2017 Appointment: Emely Hdz WPtel: [address] [place], [place] [phone] ACUTE ILLNESS 03/01/2017 Patient Education: Patient Medication Summary Completed 03/01/2017 Patient Education: Patient Medication Summary Completed 12/17/2016 Visit Diagnosis Plan: Acute and subacute allergic otitis media (mucoid) (sanguinous) (serous), left ear Discussion: Zithromax ICD-9 : 381.05 ICD-10 : H65.112 11/10/2016 Visit Diagnosis Plan: Allergic rhinitis due to pollen Discussion: Continue zyrtec/singulair ICD-9 : 477.9 ICD-10 : J30.1 11/10/2016 Appointment: Keily Arango WPtel: [facility] ACUTE ILLNESS 11/10/2016 Patient Education: Patient Medication Summary Completed 11/10/2016 Patient Education: Patient Medication Summary Completed 09/07/2016 Care Plan: URINALYSIS [place] : 84756-0 Pending 09/07/2016 Visit Diagnosis Plan: Cyst of [...] : N83.201 08/13/2016 Appointment: Keily Arango WPtel: [address] [place], [place] [address] 08/12 confirmed-sp FOLLOW UP 08/13/2016 Patient Education: Patient Medication Summary Completed 08/13/2016 Patient Education: Patient Medication Summary Completed 05/19/2016 Care Plan: X-RAY EXAM OF FOOT left foot LOINC : 26 095-0 Pending 05/19/2016 Visit Plan: Discussed with Dr Conchita MAGANA C to be drawn Order sent to Will call with results 03/27/2016 Appointment: Elpidio Aziza [address] [facility] ACUTE ILLNESS 03/27/2016 Patient Education: Patient Medication Summary Completed 03/27/2016 Visit Plan: Go for dose of rocephin 1gm IM today and tomorrow then done Diflucan 150mg x1 today Discussed with mom via phone about urology fwup--she will talk with her and let us know 03/23/2016 Appointment: Keily Arango WPtel: [address] [place], [place] [phone] 03/23 confirmed ~sl FOLLOW UP 03/23/2016 Patient Education: Patient Medication Summary Completed 03/23/2016 Visit Plan: Per Dr Arango, straight cat h for UA and culture today Ok to have a standing order for further UA needs at for straight cath Rocephin IM today and daily through Wednesday Mom has arranged a family friend that is an HEMOTHERAPIST to give Wednesday and Sundays injections - [...] let us know 03/19/2016 Appointment: Aziza Magallanes [address] [place], [place] [phone] ACUTE ILLNESS 03/19/2016 Patient Education: Patient Medication Summary Completed 03/19/2016 Visit Plan: 1 more week of cefdinir 03/02/2016 Appointment: Keily Arango WPtel: [address] [place], [place] [phone] 03/02 confirmed~sl WORK IN 03/02/2016 Patient Education: [...] if worsening 02/24/2016 Appointment: Aziza Magallanes [address] [facility] ACUTE ILLNESS 02/24/2016 Patient Education: Patient Medication Summary Completed 02/24/2016 Care Plan: CHEST X-RAY 2VW FRONTAL&LATL LOINC : 26834-4 Pending 02/24/2016 Care Plan: X-RAY EXAM OF ABDOMEN LOINC : 17273-0 Pending 02/24/2016 Visit Plan: Repeat zithromax x1 week Cip rodex to right ear x1 week Add Pepcid q HS x2-4 weeks for total histamine blockade and for extra stomach protection while on zithromax 12/16/2015 Appointment: Keily Arango WPtel: [phone] [facility] US 6/9 lm~sl 6/10 lm ~sl FOLLOW UP 12/16/2015 Patient Education: Patient Medication Summary Completed 12/16/2015 Patient Education: [facility] - Saving AutoInj - Sertraline HCL - 18-64 - Dynamic Portal ID Completed 12/16/2015 Visit Plan: Saline nasal flushes prn. Ty lenol/Motrin prn headache. Notify if persists/symptoms worsens Dexamethasone given 11/12/2015 Appointment: Keily Arango WPtel: [phone] [facility] US 5/9 lm~sl 5/10 lm~sl 5/10 [...] for Belkys 10/16/2015 Appointment: Aziza Magallanes [address] [facility] ACUTE ILLNESS 10/16/2015 Patient Education: Patient Medication Summary Completed 10/16/2015 Appointment: Aziza Magallanes [address] [facility] US canceled, feeling better CANCELED 016 Visit Plan: No further abx needed [facility] and restart carafate Notify if abdominal pain worsens 09/23/2015 Appointment: Keily Arango WPtel: [phone] [facility] [place] 09/19 confirmed-sp FOLLOW UP 09/23/2015 [...] done in the past. Order sent to [facility] since [facility] does not have in [...] for now. 09/20/2015 Appointment: Aziza Magallanes [address] ACUTE ILLNESS 09/20/2015 Patient Education: Patient Medication Summary Completed 09/20/2015 Visit Plan: Depo Medrol 40mg/ Kenalog 40 mg IM today Resume Ciprodex otic gtts. bid to Rt. ear 09/10/2015 Appointment: Bibiana Garg WPtel: [phone] [facility] 09/08 confirmed-sp ACUTE ILLNESS 09/10/2015 Patient Education: Patient Medication Summary Completed 09/10/2015 Visit Plan: Increase Protonix to 40mg po BID for 1month Continue carafate at q AC dosing for full month then wean off Jevity for 2 more days then advance diet if able Continue current meds 08/21/2015 Appointment: Keily Arango WPtel: [phone] [facility] NEW PATIENT 08/21/2015 Patient Education: Patient [...] arranged a family friend that is an HEMOTHERAPIST to give Wednesday and Sundays injections - [...] done in the past. Order sent to [facility] since [facility] does not have in [...]
[2019-11-10] MEDS ORDERED: LIDOCAINE UROJET 2% GEL 10 ML PKG TOP ONE (19:30)
--- NOTE | 2019-11-10 19:30 | NUR ---
costa button replaced by erendira garber. pt tolerated well.
--- OUTSIDE RECORDS SUMMARY | 2019-11-10 19:30 | XMS REPORT | CCD ---
Author Author Belkys Arango D.O. Organization KEILY ARANGO DO 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 Role Phone Keily Arango D.O., PP Unavailable CCM Unavailable Summary Purpose Interface Exchange Insurance Providers Payer name Policy type / Coverage type Covered constitution party ID Effective Begin Date Effective End Date [employer] [facility] Medicaid [id number] U nknown Family History Family History data not found Social History Social History Element Codes Description Effective Dates Marital status Unknown Single 08/21/2015 Employment Unknown Currently unemployed Physically handicapped 08/21/[address]: 181379165 Has never smoked or chewed tobacco 08/21/[address]: 942496132 Never drinks alcohol 2015 Allergies, Adverse Reactions, [...] 10 mg-300 mg/15 mL oral solution RxNorm: 78189 45 8 Milliliter(s) Oral Q6-8H as needed 10/23/2019 10/23/2019 Inactive cefdinir 250 mg/5 mL oral suspension RxNorm: 132556 12 Milliliter(s) Oral QD though PEG tube 10/23/2019 11/01/2019 Active Protonix 40 mg tablet,delayed release RxNorm: 454406 1 Tablet(s) Oral or per feeding tube two times a day 10/16/2019 04/12/2020 Active Zenpep 40,000 unit-126,000 unit-168,000 unit capsule,d elayed release RxNorm: 7008908 1 Capsule(s) Oral AC 10/16/2019 02/12/2020 Active Ciprodex 0.3 %-0.1 % ear drops,suspension RxNorm: 865982 SHAKE LIQUID AND INSTILL 4 DROPS IN AFFECTED EAR(S) TWICE DAILY 09/22/2019 10/15/2019 I nactive diazepam 10 mg tablet RxNorm: 433939 TAKE 1 TABLET BY M OUTH EVERY NIGHT AT BEDTIME NEEDED 09/11/2019 10/10/2019 Inactive meclizine 12.5 mg tablet RxNorm: 496582 TAKE 1 TABLET B Y MOUTH THREE TIMES DAILY NEEDED 08/31/2019 10/29/2019 Active Ciprodex 0.3 %-0.1 % ear drops,suspension RxNorm: 133478 SHAKE LIQUID AND INSTILL 4 DROPS IN AFFECTED EAR(S) TWICE DAILY 08/31/2019 09/07/2019 I nactive Ciprodex 0.3 %-0.1 % ear drops,suspension RxNorm: 005540 SHAKE LIQUID AND INSTILL 4 DROPS IN AFFECTED EAR(S) TWICE DAILY 08/11/2019 08/18/2019 I nactive meclizine 12.5 mg tablet RxNorm: 760360 TAKE 1 TABLET B Y MOUTH THREE TIMES DAILY NEEDED 08/04/2019 08/30/2019 Inactive cefdinir 250 mg/5 mL oral suspension RxNorm: 429176 12 Milliliter(s) Oral QD though PEG tube 07/25/2019 08/03/2019 Inactive Zenpep 40,000 unit-126,000 unit-168,000 unit capsule,d elayed release RxNorm: 6845463 1 Capsule(s) Oral AC 07/10/2019 10/15/2019 Inactive famotidine 20 mg tablet RxNorm: 036822 TAKE 1 TABLET BY MOUTH EVERY NIGHT AT BEDTIME 07/09/2019 01/04/2020 Active sertraline 50 mg tablet RxNorm: 872498 TAKE 1 TABLET BY MOUTH EVERY NIGHT AT BEDTIME 07/09/2019 09/06/2019 Inactive Zenpep 40,000 unit-126,000 unit-168,000 unit capsule,d elayed release RxNorm: 8155735 1 Capsule(s) Oral AC 06/12/2019 07/09/2019 Inactive Zenpep 40,000 unit-126,000 unit-168,000 unit capsule,d elayed release RxNorm: 9004476 1 Capsule(s) Oral AC 05/24/2019 05/23/2019 Inactive Zenpep 40,000 unit-126,000 unit-168,000 unit capsule,d elayed release RxNorm: 2035211 1 Capsule(s) Oral AC 05/24/2019 10/16/2019 Inactive Ciprodex 0.3 %-0.1 % ear drops,suspension RxNorm: 050880 DROP(S) 4 DROP(S) OTIC BID 05/22/2019 06/18/2019 Inactive oxcarbazepine 300 mg/5 mL (60 mg/mL) oral suspension RxNorm: 635817 15 Milliliter(s) Oral two times a day 05/08/2019 11/03/2019 Active meclizine 12.5 mg tablet RxNorm: 699918 1 TABLET(S) PO TID NEEDE D 05/05/2019 08/02/2019 Inactive change in quantity Zithromax 200 mg/5 mL oral suspension RxNorm: 999227 12.5 Dilcia liter(s) Oral QD 05/04/2019 05/09/2019 Inactive amoxicillin 400 mg/5 mL oral suspension RxNorm: 886319 10 Milliliter(s) Oral two times a day 05/03/2019 05/13/2019 Inactive Singulair 10 mg tablet RxNorm: 363111 1 TABLET(S) PO QD 03/28/2019 Inactive Macrobid 100 mg capsule RxNorm: 142160 1 Capsule(s) PO BID 03/16/2003/22/2019 Inactive meclizine 12.5 mg tablet RxNorm: 131490 1 Tablet(s) PO TID as neede d 03/10/2019 05/04/2019 Inactive change in quantity Ciprodex 0.3 %-0.1 % ear drops,suspension RxNorm: 452935 DROP(S) 4 DROP(S) OTIC BID 03/08/2019 04/04/2019 Inactive oxcarbazepine 300 mg/5 mL (60 mg/mL) oral suspension RxNorm: 126210 15 Milliliter(s) PO BID 03/07/2019 05/07/2019 Inactive Macrobid 100 mg capsule RxNorm: 294910 1 Capsule(s) PO BID 02/21/2003/01/2019 Inactive Macrobid 100 mg capsule RxNorm: 096199 1 Capsule(s) PO BID 02/21/2002/19/2019 Inactive meclizine 12.5 mg tablet RxNorm: 613199 1 Tablet(s) PO TID as neede d 02/06/2019 03/07/2019 Inactive change in quantity Ciprodex 0.3 %-0.1 % ear drops,suspension RxNorm: 640270 DROP(S) 4 DROP(S) OTIC BID 01/30/2019 02/12/2019 Inactive diazepam 10 mg tablet RxNorm: 102138 1 Tablet(s) PO QHS as needed 0 01/27/2019 09/10/2019 Inactive sertraline 50 mg tablet RxNorm: 730887 1 Tablet(s) PO QHS 12/29/2018 06/26/2019 Inactive famotidine 20 mg tablet RxNorm: 291949 1 Tablet(s) PO QHS 12/29/2018 06/26/2019 Inactive Ciprodex 0.3 %-0.1 % ear drops,suspension RxNorm: 367356 DROP(S) 4 DROP(S) OTIC BID 12/14/2018 12/27/2018 Inactive Generlac 10 gram/15 mL oral solution RxNorm: 383028 15 Milliliter(s) PO TWO TO THREE TIMES DAILY 12/06/2018 06/03/2019 Inactive Protonix 40 mg tablet,delayed release RxNorm: 792999 1 Tablet(s) PO or per feeding tube BID 11/24/2018 10/15/2019 Inactive meclizine 12.5 mg tablet RxNorm: 575974 1 Tablet(s) PO TID as neede d 11/11/2018 02/06/2019 Inactive change in quantity Ciprodex 0.3 %-0.1 % ear drops,suspension RxNorm: 076993 DROP(S) 4 DROP(S) OTIC BID 11/08/2018 11/21/2018 Inactive diazepam 10 mg tablet RxNorm: 245650 1 Tablet(s) PO QHS as needed 0 10/21/2018 11/19/2018 Inactive Generlac 10 gram/15 mL oral solution RxNorm: 184262 Mil liliter(s) 15 MILLILITER(S) PO TWO TO THREE TIMES DAILY 10/07/2018 11/05/2018 Inacti ve Ciprodex 0.3 %-0.1 % ear drops,suspension RxNorm: 959194 DROP(S) DROP(S) 4 DROP(S) OTIC BID 08/26/2018 03/15/2019 Inactive meclizine 12.5 mg tablet RxNorm: 048705 1 TABLET(S) PO TID NEEDE D 07/25/2018 10/22/2018 Inactive change in quantity oxcarbazepine 300 mg/5 mL (60 mg/mL) oral suspension RxNorm: 189847 15 Milliliter(s) PO BID 07/08/2018 07/07/2018 Inactive oxcarbazepine 300 mg/5 mL (60 mg/mL) oral suspension RxNorm: 524504 15 Milliliter(s) PO BID 07/08/2018 01/03/2019 Inactive sertraline 50 mg tablet RxNorm: 919050 1 TABLET(S) PO QHS 07/06/2018 12/28/2018 Inactive Singulair 10 mg tablet RxNorm: 662148 1 TABLET(S) PO QD 06/24/2018 Inactive Ciprodex 0.3 %-0.1 % ear drops,suspension RxNorm: 912267 DROP(S) 4 DROP(S) OTIC BID 06/20/2018 06/19/2018 Inactive Ciprodex 0.3 %-0.1 % ear drops,suspension RxNorm: 418760 Drop(s) DROP(S) 4 DROP(S) OTIC BID 06/20/2018 07/03/2018 Inactive cefdinir 250 mg/5 mL oral suspension RxNorm: 355792 12 Milliliter(s) PO QD though PEG tube 06/13/2018 06/22/2018 Inactive famotidine 20 mg tablet RxNorm: 561682 1 Tablet(s) PO QHS 05/31/2018 11/26/2018 Inactive famotidine 40 mg/5 mL (8 mg/mL) oral suspension RxNorm: 3102 74 2.5 Milliliter(s) PO QHS 04/29/2018 06/12/2018 Inactive meclizine 12.5 mg tablet RxNorm: 289340 1 TABLET(S) PO TID NEEDE D 04/25/2018 07/23/2018 Inactive change in quantity Generlac 10 gram/15 mL oral solution RxNorm: 379120 Mil liliter(s) 15 MILLILITER(S) PO TWO TO THREE TIMES DAILY 04/04/2018 05/03/2018 Inacti ve Ciprodex 0.3 %-0.1 % ear drops,suspension RxNorm: 773491 Drop(s) 4 DROP(S) OTIC BID 04/04/2018 04/17/2018 Inactive diazepam 10 mg tablet RxNorm: 420735 1 Tablet(s) PO QHS as needed 1 05/03/2018 Inactive famotidine 40 mg/5 mL (8 mg/mL) oral suspension RxNorm: 3102 74 2.5 Milliliter(s) PO QHS 04/04/2018 04/28/2018 Inactive Generlac 10 gram/15 mL oral solution RxNorm: 563565 15 MILLILITER(S) PO TWO TO THREE TIMES DAILY 03/24/2018 04/03/2018 Inactive Singulair 10 mg tablet RxNorm: 761914 1 TABLET(S) PO QD 03/18/2018 Inactive Ciprodex 0.3 %-0.1 % ear drops,suspension RxNorm: 973970 Drop(s) 4 DROP(S) OTIC BID 03/08/2018 03/21/2018 Inactive Generlac 10 gram/15 mL oral solution RxNorm: 050957 15 Milliliter(s) PO two to three times daily 03/03/2018 03/23/2018 Inactive meclizine 12.5 mg tablet RxNorm: 153082 1 Tablet(s) PO TID as neede d 02/10/2018 04/10/2018 Inactive change in quantity meclizine 12.5 mg tablet RxNorm: 988703 1 Tablet(s) PO BID as neede d 02/07/2018 02/09/2018 Inactive change in quantity Ciprodex 0.3 %-0.1 % ear drops,suspension RxNorm: 271447 Drop(s) 4 DROP(S) OTIC BID 02/02/2018 03/08/2018 Inactive sertraline 50 mg tablet RxNorm: 850906 1 TABLET(S) PO QHS 01/25/2018 07/05/2018 Inactive Zithromax 200 mg/5 mL oral suspension RxNorm: 429708 12.5 Dilcia liter(s) PO QD 12/31/2017 01/04/2018 Inactive Pepcid 20 mg tablet RxNorm: 676363 TABLET(S) 1 TABLET(S) PO QHS 04/29/2018 Inactive famotidine 40 mg/5 mL (8 mg/mL) oral suspension RxNorm: 3102 74 2.5 Milliliter(s) PO QHS 12/28/2017 12/27/2017 Inactive famotidine 40 mg/5 mL (8 mg/mL) oral suspension RxNorm: 3102 74 2.5 Milliliter(s) PO QHS 12/28/2017 04/03/2018 Inactive Ciprodex 0.3 %-0.1 % ear drops,suspension RxNorm: 634484 Drop(s) 4 DROP(S) OTIC BID 12/27/2017 02/02/2018 Inactive meclizine 12.5 mg tablet RxNorm: 043763 1 Tablet(s) PO BID as neede d 12/23/2017 02/06/2018 Inactive change in quantity Protonix 40 mg tablet,delayed release RxNorm: 090947 1 Tablet(s) PO or per feeding tube BID 12/16/2017 07/13/2018 Inactive oxcarbazepine 300 mg/5 mL (60 mg/mL) oral suspension RxNorm: 331912 15 Milliliter(s) PO BID 12/16/2017 07/08/2018 Inactive meclizine 12.5 mg tablet RxNorm: 871285 1 Tablet(s) PO BID as neede d 12/15/2017 02/07/2018 Inactive change in quantity Pepcid 40 mg/5 mL (8 mg/mL) oral suspension RxNorm: 045394 5 Milliliter(s) PO QHS to replace nighttime pantoprazole dose 12/14/2017 12/27/2017 Inact марина meclizine 12.5 mg tablet RxNorm: 364365 1 Tablet(s) PO BID as neede d 12/13/2017 12/23/2017 Inactive diazepam 10 mg tablet RxNorm: 825304 1 Tablet(s) PO QHS as needed 0 12/02/2017 03/01/2018 Inactive prednisolone 15 mg/5 mL oral solution RxNorm: 420313 5 Milliliter(s) PO BID for 3 days then 5ml daily for 3 days then 2.5ml daily for 3 days 12/02/2017 12/13/2017 Inactive sertraline 50 mg tablet RxNorm: 005075 1 Tablet(s) PO QHS 11/04/2017 01/24/2018 Inactive Ciprodex 0.3 %-0.1 % ear drops,suspension RxNorm: 139667 Drop(s) 4 DROP(S) OTIC BID 10/18/2017 10/31/2017 Inactive Ciprodex 0.3 %-0.1 % ear drops,suspension RxNorm: 550225 Drop(s) 4 DROP(S) OTIC BID 10/18/2017 12/27/2017 Inactive Singulair 10 mg tablet RxNorm: 535136 1 Tablet(s) PO QD 09/30/2017 Inactive diazepam 5 mg/5 mL (1 mg/mL) oral solution RxNorm: 553242 2.5 Milliliter(s) PO QD give additional 5 mg dose if seizure occurs 09/17/2017 No Stop Date A ctive Bactrim DS 800 mg-160 mg tablet RxNorm: 397541 1 Tablet(s) PO BID 0 09/17/2017 09/23/2017 Inactive Ciprodex 0.3 %-0.1 % ear drops,suspension RxNorm: 174451 4 DROP (S) OTIC BID 09/13/2017 10/18/2017 Inactive cefdinir 250 mg/5 mL oral suspension RxNorm: 646853 12 Milliliter(s) PO QD though PEG tube 08/06/2017 08/15/2017 Inactive sertraline 50 mg tablet RxNorm: 599662 1 Tablet(s) PO QHS 08/02/2017 11/04/2017 Inactive Ciprodex 0.3 %-0.1 % ear drops,suspension RxNorm: 657070 4 DROP (S) OTIC BID 07/22/2017 08/11/2017 Inactive Singulair 10 mg tablet RxNorm: 843326 1 Tablet(s) PO QD 06/30/2017 Inactive diazepam 10 mg tablet RxNorm: 768207 TAKE 1 TABLET BY M OUTH EVERY NIGHT AT BEDTIME NEEDED 06/04/2017 07/03/2017 Inactive oxcarbazepine 300 mg/5 mL (60 mg/mL) oral suspension RxNorm: 492081 15 MILLILITER(S) PO BID 05/03/2017 12/16/2017 Inactive sertraline 50 mg tablet RxNorm: 857416 1 Tablet(s) PO QHS 05/03/2017 08/02/2017 Inactive Protonix 40 mg tablet,delayed release RxNorm: 241437 1 Tablet(s) PO or per feeding tube BID 04/26/2017 12/16/2017 Inactive Ciprodex 0.3 %-0.1 % ear drops,suspension RxNorm: 998255 4 DROP (S) OTIC BID 04/26/2017 05/23/2017 Inactive Generlac 10 gram/15 mL oral solution RxNorm: 669854 Mil liliter(s) TAKE 15 ML BY MOUTH TWO-THREE TIMES DAILY 04/08/2017 03/03/2018 Inactive Singulair 10 mg tablet RxNorm: 736618 1 Tablet(s) PO QD 03/03/2017 Inactive diazepam 10 mg tablet RxNorm: 731869 1 Tablet(s) PO QHS as needed 0 02/15/2017 06/04/2017 Inactive Singulair 10 mg tablet RxNorm: 092312 1 Tablet(s) PO QD 12/01/2016 Inactive Diflucan 150 mg tablet RxNorm: 846077 Tablet(s) Give 1 tab PO now and then repeat dose in 5 days 11/10/2016 03/31/2017 Inactive Zithromax 200 mg/5 mL oral suspension RxNorm: 673196 12.5 Dilcia liter(s) PO QD 11/10/2016 11/14/2016 Inactive Singulair 10 mg tablet RxNorm: 976994 TAKE 1 TABLET BY MOUTH ON CE DAILY 11/02/2016 12/01/2016 Inactive diazepam 10 mg tablet RxNorm: 510350 TAKE 1 TABLET BY M OUTH EVERY NIGHT AT BEDTIME NEEDED 10/21/2016 11/19/2016 Inactive sertraline 50 mg tablet RxNorm: 476811 1 Tablet(s) PO QHS 10/12/2016 01/09/2017 Inactive fluconazole 100 mg tablet RxNorm: 514477 1 Tablet(s) PO QD 09/23/19 17 09/24/2016 Inactive fluconazole 100 mg tablet RxNorm: 976862 1 Tablet(s) PO QD 09/23/19 17 09/21/2016 Inactive Bactrim DS 800 mg-160 mg tablet RxNorm: 608579 1 Tablet(s) PO BID 0 09/10/2016 09/09/2016 Inactive Bactrim DS 800 mg-160 mg tablet RxNorm: 050124 1 Tablet(s) PO BID 0 09/10/2016 09/16/2016 Inactive oxcarbazepine 300 mg/5 mL (60 mg/mL) oral suspension RxNorm: 766819 15 Milliliter(s) PO BID 09/07/2016 03/05/2017 Inactive sertraline 50 mg tablet RxNorm: 348703 1 Tablet(s) PO QHS 07/06/2016 10/03/2016 Inactive Pepcid 20 mg tablet RxNorm: 427622 Tablet(s) 1 TABLET(S) PO QHS 08/201603/08/2017 Inactive sertraline 50 mg tablet RxNorm: 664041 1 Tablet(s) PO QHS 06/08/2016 05/03/2017 Inactive Generlac 10 gram/15 mL oral solution RxNorm: 937284 Mil liliter(s) TAKE 15 ML BY MOUTH TWO-THREE TIMES DAILY 06/08/2016 09/08/2016 Inactive Pepcid 20 mg tablet RxNorm: 776350 1 TABLET(S) PO QHS 06/04/201607/2016 Inactive fluconazole 100 mg tablet RxNorm: 673329 1 Tablet(s) QD through PEG tube 05/13/2016 12/01/2017 Inactive Diflucan 150 mg tablet RxNorm: 352411 Give 1 tab PO now and then repeat dose in 5 days 03/19/2016 11/09/2016 Inactive ceftriaxone 1 gram solution for injection RxNorm: 7303254 1 Gram(s) IM QD Wednesday and Wednesday03/19/2016 11/09/2016 Inactive lidocaine 10 mg/mL (1 %) injection solution RxNorm: 8477080 Use as directed to reconstitute Rocephin when needed 03/19/2016 12/13/2017 Inactive Generlac 10 gram/15 mL oral solution RxNorm: 916245 JOE E 15 ML BY MOUTH TWO- THREE TIMES DAILY 03/19/2016 06/07/2016 Inactive oxcarbazepine 300 mg/5 mL oral suspension RxNorm: 116169 15 Milliliter(s) PO BID 03/13/2016 09/07/2016 Inactive Ciprodex 0.3 %-0.1 % ear drops,suspension RxNorm: 871007 4 DROP (S) OTIC BID 03/09/2016 03/15/2016 Inactive cefdinir 250 mg/5 mL oral suspension RxNorm: 049338 11. 75 Milliliter(s) PO QD though PEG tube 03/02/2016 03/08/2016 Inactive cefdinir 250 mg/5 mL oral suspension RxNorm: 396941 11. 75 Milliliter(s) PO QD though PEG tube 02/24/2016 03/01/2016 Inactive cefdinir 250 mg/5 mL oral suspension RxNorm: 713527 11. 75 Milliliter(s) PO QD though PEG tube 02/24/2016 02/23/2016 Inactive Ciprodex 0.3 %-0.1 % ear drops,suspension RxNorm: 190846 4 Drop (s) OTIC BID 02/24/2016 03/01/2016 Inactive Generlac 10 gram/15 mL oral solution RxNorm: 060629 JOE E 15 ML BY MOUTH TWICE DAILY 02/17/2016 03/18/2016 Inactive Generlac 10 gram/15 mL oral solution RxNorm: 942442 15 Millilit er(s) PO BID 01/23/2016 02/16/2016 Inactive Pepcid 20 mg tablet RxNorm: 954713 1 TABLET(S) PO QHS 01/13/201605/07 Inactive Ciprodex 0.3 %-0.1 % ear drops,suspension RxNorm: 218405 4 Drop (s) OTIC BID 12/23/2015 12/29/2015 Inactive sertraline 50 mg tablet RxNorm: 021241 1 Tablet(s) PO QHS 12/16/2015 06/07/2016 Inactive Zithromax 500 mg tablet RxNorm: 169179 1 Tablet(s) PO QD 12/16/2015 0 12/22/2015 Inactive Pepcid 20 mg tablet RxNorm: 624699 1 Tablet(s) PO QHS 12/16/201501/02 Inactive Zithromax 500 mg tablet RxNorm: 896782 1 Tablet(s) PO QD 11/12/2015 0 11/18/2015 Inactive Singulair 10 mg tablet RxNorm: 573446 1 Tablet(s) PO BID 10/16/2015 0 11/11/2015 Inactive diazepam 10 mg tablet RxNorm: 583218 1 Tablet(s) PO QHS 10/07/2015 Inactive diazepam 10 mg tablet RxNorm: 276554 1 Tablet(s) PO QHS 10/07/2015 Inactive fexofenadine 30 mg/5 mL oral suspension RxNorm: 908510 10 Milliliter(s) PO one to two times daily PRN allergies 09/20/2015 12/15/2015 Inactive ceftriaxone 1 gram solution for injection RxNorm: 0888051 1 Gram (s) IM QD 09/20/2015 09/21/2015 Inactive Ciprodex 0.3 %-0.1 % ear drops,suspension RxNorm: 784523 4 Drop (s) OTIC BID 09/20/2015 10/03/2015 Inactive Protonix 40 mg tablet,delayed release RxNorm: 193793 1 Tablet(s) PO or per feeding tube BID 08/21/2015 12/18/2015 Inactive Carafate 100 mg/mL oral suspension RxNorm: 808566 10 Mi lliliter(s) Miscellaneous per feeding tube AC & HS 08/21/2015 09/19/2015 Inactive Zyrtec 10 mg tablet RxNorm: 0148490 1 Tablet(s) PO QD No Start Date Active diazepam 20 mg rectal kit RxNorm: 277016 RTL as needed No Start Date Active ondansetron HCl 4 mg/5 mL oral solution RxNorm: 785599 10 Milliliter(s) PO as needed and through tube No Start Date Active sertraline 50 mg tablet RxNorm: 008387 1 Tablet(s) PO QD No Start D ate 12/15/2015 Inactive Brittany 180 mg tablet RxNorm: 185957 1 Tablet(s) PO QD No Start Date 06/12/2018 Inactive Generlac 10 gram/15 mL oral solution RxNorm: 835370 15 Millilit er(s) PO BID No Start Date 01/22/2016 Inactive oxcarbazepine 300 mg/5 mL oral suspension RxNorm: 720061 13.5 Milliliter(s) PO QAM and 15ml in the evening No Start Date 12/15/2015 Inactive Singulair 10 mg tablet RxNorm: 103896 1 Tablet(s) PO QD No Start Da te 11/30/2016 Inactive meclizine 12.5 mg tablet RxNorm: 332651 1 Tablet(s) PO TID as needed for dizziness No Start Date 09/13/2017 Inactive meclizine 12.5 mg tablet RxNorm: 613992 1 Tablet(s) PO BID No Start Date 12/12/2017 Inactive fluconazole 100 mg tablet RxNorm: 024105 1 Tablet(s) QD through PEG tube No Start Date 05/12/2016 Inactive Lortab Elixir 10 mg-300 mg/15 mL oral solution RxNorm: 88860 45 8 PO Q6-8H as needed No Start Date 10/22/2019 Inactive Flomax 0.4 mg capsule RxNorm: 985800 1 Capsule(s) PO QD No Start Da te 06/12/2018 Inactive diazepam 10 mg tablet RxNorm: 341698 1 Tablet(s) PO QHS as needed N o Start Date 02/14/2017 Inactive Generlac 10 gram/15 mL oral solution RxNorm: 763324 15 Milliliter(s) PO two to three times daily No Start Date 03/02/2018 Inactive oxcarbazepine 300 mg/5 mL oral suspension RxNorm: 449987 15 Milliliter(s) PO BID No Start Date 12/15/2017 Inactive Medication Administered No Medication Administered data Immunizations Vaccine Codes Date Status Influenza CVX: 141 04/21/2019 Results No Results data Procedures Procedure Codes Date DEXAMETHASONE SODIUM PHOS CPT-4: J1100 10/06/2019 THER/PROPH/DIAG INJ SC/IM CPT-4: 31175 10/06/2019 DEXAMETHASONE SODIUM PHOS CPT-4: J1100 05/03/2019 THER/PROPH/DIAG INJ SC/IM CPT-4: 57572 05/03/2019 CEFTRIAXONE SODIUM INJECTION CPT-4: J0696 03/19/2016 THER/PROPH/DIAG INJ SC/IM CPT-4: 95745 03/19/2016 DEXAMETHASONE SODIUM PHOS CPT-4: J1100 11/12/2015 THER/PROPH/DIAG INJ SC/IM CPT-4: 24074 11/12/2015 CEFTRIAXONE SODIUM INJECTION CPT-4: J0696 09/20/2015 THER/PROPH/DIAG INJ SC/IM CPT-4: 21007 09/20/2015 THER/PROPH/DIAG INJ SC/IM CPT-4: 91007 09/10/2015 METHYLPREDNISOLONE 40 MG INJ CPT-4: J1030 09/10/2015 TRIAMCINOLONE ACET INJ NOS CPT-4: J3301 09/10/2015 Vital Signs Date Vital 07/25/2019 Blood Pressure 1: 116/80 Code: 8480-6 BMI: 23.2 Code: 05193-8 Heart Rate 1: 81 bpm Height: 4'5" Respiratory Rate: 16 bpm SpO2: 100% Tempera ture: 36.8 (C) / 98.2 (F) Weight: 92 lbs 06/12/2019 Blood Pressure 1: 112/74 Code: 8480-6 BMI: 23.2 Code: 08439-9 Heart Rate 1: 102 bpm Height: 4'5" [...] 1: 114/70 Code: 8480-6 BMI: 23.1 Code: 87174-2 Heart Rate 1: 80 bpm Height: 4'6" [...] visit Encounters Encounter Performer Location Codes Date ([id number]) OFFICE/OUTPATIENT VISIT EST Diagnosis: Otalgia, bilateral[ICD10: H92.03] [facility] CPT-[facility]: 30399 10/23/2019 ([id number]) NURSE/OUTPATIENT VISIT EST Diagnosis: Allergic rhinitis, unspecified[ICD10: J30.9] Keily LINARES [employer] CPT-4: 88776 10/06/2019 ([id number]) OFFICE/OUTPATIENT VISIT EST Diagnosis: Allergic rhinitis[ICD10: J30.9] Fatou Onofre [employer] CPT-4: 31991 10/05/2019 ([id number]) OFFICE/OUTPATIENT VISIT EST Diagnosis: Sinusitis[ICD10: J32.9] Fatou RIOSLINE [employer] [employer] [employer] CPT-4: 60723 07/25/2019 ([id number]) PREV VISIT EST AGE 18-39 Diagnosis: Encounter for general adult medical examination with abnormal findings[ICD10: Z00.01] Diagnosis: Chronic pancreatitis[ICD10: K86.1] Diagnosis: Cerebral palsy, unspecified[ICD10: G80.9] Keily LINARES [employer] [email or web address] CPT-4: 77555 06/12/2019 ([id number]) OFFICE/OUTPATIENT VISIT EST Diagnosis: Pneumonia, organism unspecified[ICD10: J18.9] Diagnosis: Breast mass, right[ICD10: N63.10] Keily ARANGO [facility] [employer] [facility] CPT-4: 59077 05/08/2019 ([id number]) OFFICE/OUTPATIENT VISIT EST Diagnosis: Allergic rhinitis due to pollen[ICD10: J30.1] Diagnosis: Otitis media, unspecified, right ear[ICD10: H66.91] Fatou ARANGO DO [facility] CPT-4: 25470 05/03/2019 ([id number]) OFFICE/OUTPATIENT VISIT EST Diagnosis: Irritability and anger[ICD10: R45.4] Nataliia ARANGO [employer] CPT-4: 31834 11/25/2018 ([id number]) OFFICE/OUTPATIENT VISIT EST Diagnosis: Acute suppurative otitis media without spontaneous rupture of ear drum, bilateral[ICD10: H66.003] Fatou ARANGO [employer] CPT-4: 16275 06/13/2018 ([id number]) OFFICE/OUTPATIENT VISIT EST Diagnosis: Other fatigue[ICD10: R53.83] Diagnosis: Anuria and oliguria[ICD10: R34] Diagnosis: Acute gastritis without bleeding[ICD10: K29.00] Fatou ARANGO [employer] CPT-4: 70597 01/04/2018 ([id number]) OFFICE/OUTPATIENT VISIT EST Diagnosis: Acute bronchitis, unspecified[ICD10: J20.9] Fatou ARANGO DO [facility] CPT-4: 31447 12/31/2017 ([id number]) PREV VISIT EST AGE 18-39 Diagnosis: Encounter for general adult medical examination without abnormal findings[ICD10: Z00.00] Diagnosis: Severe intellectual disabilities[ICD10: F72] Diagnosis: Allergic rhinitis due to pollen[ICD10: J30.1] Diagnosis: Epilepsy, unspecified, intractable, without status epilepticus[ICD10: G40.919] Diagnosis: Gastro-esophageal reflux disease without esophagitis[ICD10: K21.9] Keily ARANGO [employer] CPT-4: 89961 12/14/2017 ([id number]) OFFICE/OUTPATIENT VISIT EST Diagnosis: Allergic rhinitis due to pollen[ICD10: J30.1] Diagnosis: Epilepsy, unspecified, intractable, without status epilepticus[ICD10: G40.919] Keily Burtondominique KEILY Bobby [facility] CPT-4: 32769 12/02/2017 ([id number]) OFFICE/OUTPATIENT VISIT EST Diagnosis: Other allergic rhinitis[ICD10: J30.89] Fatou Bobby [facility] CPT-4: 90782 10/12/2017 OFFICE/OUTPATIENT VISIT EST Diagnosis: Acute suppurative otitis media without spontaneous rupture of ear drum, recurrent, left ear[ICD10: H66.005] Diagnosis: Epilepsy, unspecified, intractable, without status epilepticus[ICD10: G40.919] Diagnosis: Hesitancy of micturition[ICD10: R39.11] [facility] 14054 09/17/2017 OFFICE/OUTPATIENT VISIT EST Diagnosis: Otitis media, unspecified, left ear[ICD10: H66.92] [facility]: 54522 08/06/2017 ([id number]) OFFICE/OUTPATIENT VISIT EST Diagnosis: Vertigo of central origin, 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.49] Diagnosis: Dizziness and giddiness[ICD10: R42] Keily Arango RENEJODI NARANJO [facility] CPT-4: 73742 04/01/2017 OFFICE/OUTPATIENT VISIT EST Diagnosis: Vomiting, unspecified[ICD10: R11.10] Diagnosis: 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)[ICD10: K56.5] Diagnosis: Personal history of urinary calculi[ICD10: Z87.442] Emely Hdz KEILY Bobby [facility] CPT-4: 45319 03/01/2017 ([id number]) OFFICE/OUTPATIENT VISIT EST Diagnosis: Allergic rhinitis due to pollen[ICD10: J30.1] Diagnosis: Acute and subacute allergic otitis media (mucoid) (sanguinous) (serous), left ear[ICD10: H65.112] Keily CASTILLO [facility] CPT-4: 95472 11/10/2016 ([id number]) OFFICE/OUTPATIENT VISIT EST Diagnosis: 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] Diagnosis: Unspecified ovarian cyst, right side[ICD10: N83.201] Diagnosis: Cyst of kidney, 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] [facility]: 25542 08/13/2016 ([id number]) OFFICE/OUTPATIENT VISIT EST Diagnosis: Rash and other nonspecific skin eruption[ICD10: R21] [facility]PT[facility]: 36290 03/27/2016 ([id number]) OFFICE/OUTPATIENT VISIT EST Diagnosis: Urinary tract infection, site not specified[ICD10: N39.0] [facility]: 00637 03/23/2016 ([id number]) OFFICE/OUTPATIENT VISIT EST Diagnosis: Retention of urine, unspecified[ICD10: R33.9] Diagnosis: Dysuria[ICD10: R30.0] Diagnosis: Constipation, unspecified[ICD10: K59.00] Aziza Magallanes SIOMARA LAWTON Diamante [facility] CPT-[facility]: 24472 03/19/2016 ([id number]) OFFICE/OUTPATIENT VISIT EST Diagnosis: Acute sinusitis, unspecified[ICD10: J01.90] [facility]PT[facility]: 23162 03/02/2016 OFFICE/OUTPATIENT VISIT EST Diagnosis: Other fatigue[ICD10: R53.83] Diagnosis: Retention of urine, unspecified[ICD10: R33.9] Diagnosis: Dysuria[ICD10: R30.0] Diagnosis: Generalized abdominal pain[ICD10: R10.84] 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] Aziza [facility]PT[facility]: 09502 02/24/2016 ([id number]) OFFICE/OUTPATIENT VISIT EST Diagnosis: Chronic mucoid otitis media, right ear[ICD10: H65.31] Diagnosis: Allergic rhinitis, unspecified[ICD10: J30.9] Diagnosis: 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] Keily ARANGO [facility] CPT-4: 15574 12/16/2015 ([id number]) OFFICE/OUTPATIENT VISIT EST Diagnosis: Allergic rhinitis, unspecified[ICD10: J30.9] Diagnosis: Acute recurrent sinusitis, unspecified[ICD10: J01.91] Keily ARANGO [facility] CPT-4: 75743 11/12/2015 ([id number]) OFFICE/OUTPATIENT VISIT EST Diagnosis: Other seasonal allergic rhinitis[ICD10: J30.2] Diagnosis: Nausea with vomiting, unspecified[ICD10: R11.2] Diagnosis: Epigastric pain[ICD10: R10.13] [facility]PT-[facility]: 67639 10/16/2015 OFFICE/OUTPATIENT VISIT EST Diagnosis: Encounter for follow-up examination after completed treatment for conditions other than malignant neoplasm[ICD10: Z09] Diagnosis: Generalized abdominal pain[ICD10: R10.84] [facility]: 23008 09/23/2015 ([id number]) OFFICE/OUTPATIENT VISIT EST Diagnosis: Otitis media, unspecified, right ear[ICD10: H66.91] Diagnosis: Constipation, unspecified[ICD10: K59.00] Diagnosis: Allergic rhinitis, unspecified[ICD10: J30.9] [facility] CPT-[facility]: 30064 09/20/2015 OFFICE/OUTPATIENT VISIT EST Diagnosis: Allergic rhinitis, unspecified[ICD10: J30.9] Diagnosis: Unspecified perforation of tympanic membrane, right ear[ICD10: H72.91] Bibiana Garg KEILY [facility] CPT-4: 11083 09/10/2015 OFFICE/OUTPATIENT VISIT NEW Diagnosis: Epilepsy, unspecified, intractable, without status epilepticus[ICD10: G40.919] Diagnosis: Gastric ulcer, unspecified as acute or chronic, without hemorrhage or perforation[ICD10: K25.9] Diagnosis: Severe intellectual disabilities[ICD10: F72] Keily [facility]ES [facility] CPT-4: 22648 08/21/2015 Plan of Care Planned Activity Notes [...] H92.03 10/23/2019 Patient Education: cefdinir- [employer] Coupon [id number] [email or web address]/samplemd/resources/getResource/61/[email or web address] Completed 10/23/2019 Appointment: Keily Arango WPtel: [phone] [facility] [place] INJECTION 10/06/2019 Visit Diagnosis Plan: Allergic [...] : J30.9 10/05/2019 Appointment: Fatou Onofre [address] [facility] TELEMEDICINE 10/05/2019 Visit Diagnosis Plan: Sinusitis Discussion: due to dean h of illness and symptoms, cefdinir prescribed to take as directed. call office with any new or worsening symptoms. ICD-9 : 473.9 ICD-10 : J32.9 07/25/2019 Appointment: Fatou Onofre [address] ACUTE ILLNESS 07/25/2019 Patient Education: cefdinir- [employer] Coupon [id number] https://www.[employer].com/samplemd/resources/getResource/61/vb9z1bnh-[email or web address] Completed 07/25/2019 Visit Diagnosis Plan: Chronic pancreatitis Discussion: Continue zenpep and recheck CMP with amylase/lipase in 1 month ICD-9 : 577.1 ICD-10 : K86.1 06/12/2019 Appointment: Keily Arango WPtel: [phone] Annual Well Visit 06/12/2019 Visit Diagnosis [...] : J18.9 05/08/2019 Appointment: Keily Arango WPtel: [facility] [address] Hospital Follow Up 05/08/2019 Visit Diagnosis [...] ICD-10 : J30.1 05/03/2019 Appointment: Fatou Onofre [address] [place] [address] ACUTE ILLNESS 05/03/2019 Patient Education: amoxicillin- [employer] Coupon [phone] https://www.[employer].com/samplemd/resources/getResource/61/[email or web address] Completed 05/03/2019 Visit Diagnosis Plan: Irritability and [...] ICD-10 : R45.4 11/25/2018 Appointment: Nataliia Hsieh [address] [place] [address] ACUTE ILLNESS 11/25/2018 Visit Diagnosis Plan: Acute suppurative otitis media without spontaneous rupture of ear drum, bilateral Discussion: cefdinir for 10 days. if wor sening symptoms later this week, call clinic. push fluids and tylenol/ibuprofen prn pain or fever. ICD-9 : 382.00 ICD-10 : H66.003 06/13/2018 Appointment: Fatou Onofre [address] [place] [address] ACUTE ILLNESS 06/13/2018 Visit Diagnosis Plan: Anuria [...] ICD-10 : R53.83 01/04/2018 Appointment: Fatou Onofre [address] [place] [address] ACUTE ILLNESS 01/04/2018 Patient Education: Patient Medication Summary Completed 01/04/2018 Visit Diagnosis Plan: Acute bronchitis, unspecified Di scussion: zithromax prescribed to take as directed. continue with allergy meds including flonase to help dry congestion. call office next week if new or worsening symptoms. ICD-9 : 466.0 ICD-10 : J20.9 12/31/2017 Appointment: Fatou Onofre [address] [place] [address] ACUTE ILLNESS 12/31/2017 Patient Education: Patient Medication Summary Completed 12/31/2017 Visit Diagnosis Plan: Epilepsy, unspecif ied, intractable, without status epilepticus Discussion: Stable on current regimen ICD-9 : 345.91 ICD-10 : G40.919 12/14/2017 Visit Diagnosis Plan: Encounter for [facility] medical examination without abnormal findings Discussion: Had recent lab done Follow Up: 3 months ICD-9 : V70.9 ICD-10 : Z00.00 12/14/2017 Visit Diagnosis Plan: Allergic rhinitis due to pollen Discussion: Continue current meds Change night time protonix to pepcid for total histamine blockade ICD-9 : 477.9 ICD-10 : J30.1 12/14/2017 Appointment: Keily Arango WPtel: [address] [place] [address] CHECK UP 12/14/2017 Patient Education: Patient Medication [...] : J30.1 12/02/2017 Appointment: Keily Arango WPtel: [facility] ACUTE ILLNESS 12/02/2017 Patient Education: Patient Medication Summary Completed 12/02/2017 Visit Diagnosis Plan: Other allergic rhinitis Discussi on: symptoms most likely caused from allergies. patient sent to hospital for decadron injection. instructed to restart patient's flonase at home. if new or worsening symptoms, call or rtc. ICD-9 : 477.8 ICD-10 : J30.89 10/12/2017 Appointment: Fatou Onofre [address] [place] [address] ACUTE ILLNESS 10/12/2017 Patient Education: Patient Medication [...] ICD-10 : G40.919 09/17/2017 Appointment: Fatou Onofre [address] [place] [address] ACUTE ILLNESS 09/17/2017 Patient Education: Patient Medication Summary Completed 09/17/2017 Visit Diagnosis Plan: Otitis media, unspecified, left ear Discussion: cefdinir prescribed daily for 10 days. instructed to administer tylenol/ibuprofen for pain or fever. if no improvement, or worsening symptoms, call or rtc. ICD-9 : 380.14 ICD-10 : H66.92 08/06/2017 Appointment: Fatou Onofre [address] [place] [address] ACUTE ILLNESS 08/06/2017 Patient Education: Patient Medication Summary Completed 08/06/2017 Patient Education: Patient Medication Summary Completed 08/02/2017 Patient Education: Patient Medication Summary Completed 04/21/2017 Care Plan: MRI BRAIN STEM W/O DYE [facility] : 90358-4 Pending 04/21/2017 Patient Education: Patient Medication Summary Completed 04/20/2017 Care Plan: MRI BRAIN STEM W/O DYE LOINC : 69004-7 Pending 04/20/2017 Visit Diagnosis Plan: Vertigo of central origin, unspe cified ear Discussion: Continue meclizine at 12.5mg po BID for 2 more weeks then go to 12.5mg daily for 2 weeks then 6.25mg daily for 2 weeks then stop Notify if any symptoms return with weaning process ICD-9 : 386.2 ICD-10 : H81.49 04/01/2017 Appointment: Keily Arango WPtel: [address] [place], [place] [phone] FOLLOW UP 04/01/2017 Patient Education: Patient Medication Summary Completed 04/01/2017 Patient Education: Patient Medication Summary Completed 03/09/2017 Care Plan: CT HEAD/BRAIN W/O DYE LOINC : 41454-1 Pending 03/09/2017 Visit Plan: It's difficult to [...] medications indicated. 03/01/2017 Appointment: Emely Hdz WPtel: [address] [place], [place] [phone] ACUTE ILLNESS 03/01/2017 Patient Education: Patient Medication Summary Completed 03/01/2017 Patient Education: Patient Medication Summary Completed 12/17/2016 Visit Diagnosis Plan: Allergic rhinitis due to pollen Discussion: Continue zyrtec/singulair ICD-9 : 477.9 ICD-10 : J30.1 11/10/2016 Visit Diagnosis Plan: Acute and subacute allergic otitis media (mucoid) (sanguinous) (serous), left ear Discussion: Zithromax ICD-9 : 381.05 ICD-10 : H65.112 11/10/2016 Appointment: Keily Arango WPtel: [facility] [place], [place] [phone] ACUTE ILLNESS 11/10/2016 Patient Education: Patient Medication Summary Completed 11/10/2016 Patient Education: Patient Medication Summary Completed 09/07/2016 Care Plan: URINALYSIS [place] : 98006-9 Pending 09/07/2016 Visit Diagnosis Plan: Unspecified ovarian [...] : N20.0 08/13/2016 Appointment: Keily Arango WPtel: [address] [place], [place] [phone] 08/12 confirmed-sp FOLLOW UP 08/13/2016 Patient Education: Patient Medication Summary Completed 08/13/2016 Patient Education: Patient Medication Summary Completed 05/19/2016 Care Plan: X-RAY EXAM OF FOOT left foot LOINC : 26 095-0 Pending 05/19/2016 Visit Plan: Discussed with Dr Conchita MAGANA C to be drawn Order sent to Will call with results 03/27/2016 Appointment: Elpidio Aziza [address] [id number] [place] ACUTE ILLNESS 03/27/2016 Patient Education: Patient Medication Summary Completed 03/27/2016 Visit Plan: Go for dose of rocephin 1gm IM today and tomorrow then done Diflucan 150mg x1 today Discussed with mom via phone about urology fwup--she will talk with her and let us know 03/23/2016 Appointment: Keily Arango WPtel: [address] [place], [place] [phone] 03/23 confirmed ~sl FOLLOW UP 03/23/2016 Patient Education: Patient Medication Summary Completed 03/23/2016 Visit Plan: Per Dr Arango, straight cat h for UA and culture today Ok to have a standing order for further UA needs at for straight cath Rocephin IM today and daily through Wednesday Mom has arranged a family friend that is an [employer] to give Wednesday and Sundays injections - [...] let us know 03/19/2016 Appointment: Aziza Magallanes [address] [place], [place] [phone] ACUTE ILLNESS 03/19/2016 Patient Education: Patient Medication Summary Completed 03/19/2016 Visit Plan: 1 more week of cefdinir 03/02/2016 Appointment: Keily Arango WPtel: [address] [place], [place] [phone] 03/02 confirmed~sl WORK IN 03/02/2016 Patient Education: [...] if worsening 02/24/2016 Appointment: Aziza Magallanes [address] [facility] ACUTE ILLNESS 02/24/2016 Patient Education: Patient Medication Summary Completed 02/24/2016 Care Plan: CHEST X-RAY 2VW FRONTAL&LATL LOINC : 63633-5 Pending 02/24/2016 Care Plan: X-RAY EXAM OF ABDOMEN LOINC : 09193-0 Pending 02/24/2016 Visit Plan: Repeat zithromax x1 week Cip rodex to right ear x1 week Add Pepcid q HS x2-4 weeks for total histamine blockade and for extra stomach protection while on zithromax 12/16/2015 Appointment: Keily Arango WPtel: [phone] [facility] [place] 6/9 lm~sl 6/10 lm ~sl FOLLOW UP 12/16/2015 Patient Education: Patient Medication Summary Completed 12/16/2015 Patient Education: [facility] - Saving AutoInj - Sertraline HCL - 18-64 - Dynamic Portal ID Completed 12/16/2015 Visit Plan: Saline nasal flushes prn. Ty lenol/Motrin prn headache. Notify if persists/symptoms worsens Dexamethasone given 11/12/2015 Appointment: Keily Arango WPtel: [phone] [facility] US 5/9 lm~sl 5/10 lm~sl 5/10 confirm-sp [...] for Belkys 10/16/2015 Appointment: Aziza Magallanes [address] [facility] ACUTE ILLNESS 10/16/2015 Patient Education: Patient Medication Summary Completed 10/16/2015 Appointment: Aziza Magallanes [address] [facility] US canceled, feeling better CANCELED 016 Visit Plan: No further abx needed [facility] restart carafate Notify if abdominal pain worsens 09/23/2015 Appointment: Keily Arango WPtel: [phone] [facility] [place] 09/19 confirmed-sp FOLLOW UP 09/23/2015 Patient [...] done in the past. Order sent to [facility] since [facility] does not have in [...] for now. 09/20/2015 Appointment: Aziza Magallanes [address] ACUTE ILLNESS 09/20/2015 Patient Education: Patient Medication Summary Completed 09/20/2015 Visit Plan: Depo Medrol 40mg/ Kenalog 40 mg IM today Resume Ciprodex otic gtts. bid to Rt. ear 09/10/2015 Appointment: Bibiana Garg WPtel: [phone] [facility] 09/08 confirmed-sp ACUTE ILLNESS 09/10/2015 Patient Education: Patient Medication Summary Completed 09/10/2015 Visit Plan: Increase Protonix to 40mg po BID for 1month Continue carafate at q AC dosing for full month then wean off Jevity for 2 more days then advance diet if able Continue current meds 08/21/2015 Appointment: Keily Arango WPtel: [phone] [facility] NEW PATIENT 08/21/2015 Patient Education: Patient Medication [...] arranged a family friend that is an [employer] to give Wednesday and Sundays injections - [...] done in the past. Order sent to [facility] since [facility] does not have in [...]
--- OUTSIDE RECORDS SUMMARY | 2019-11-10 19:30 | XMS REPORT | CCD ---
Author Author Belkys Arango D.O. Organization [facility] Address [address] [place] [address] Phone Care Team Providers Care Teacher Aide Name Role Phone Keily Arango D.O., PP Unavailable CCM Unavailable Summary Purpose Interface Exchange Insurance Providers Payer name Policy type / Coverage type Covered democrat ID Effective Begin Date Effective End Date [employer] [facility] Medicaid [id number] U nknown Family History Family History data not found Social History Social History Element Codes Description Effective Dates Marital status Unknown Single 08/21/2015 Employment Unknown Currently unemployed Physically handicapped 08/21/[address]: 141617925 Has never smoked or chewed tobacco 08/21/[address]: 679372821 Never drinks alcohol 2015 Allergies, Adverse Reactions, [...] 10 mg-300 mg/15 mL oral solution RxNorm: 49651 45 8 Milliliter(s) Oral Q6-8H as needed 10/23/2019 10/23/2019 Inactive cefdinir 250 mg/5 mL oral suspension RxNorm: 430900 12 Milliliter(s) Oral QD though PEG tube 10/23/2019 11/01/2019 Active Protonix 40 mg tablet,delayed release RxNorm: 495236 1 Tablet(s) Oral or per feeding tube two times a day 10/16/2019 04/12/2020 Active Zenpep 40,000 unit-126,000 unit-168,000 unit capsule,d elayed release RxNorm: 7272137 1 Capsule(s) Oral AC 10/16/2019 02/12/2020 Active Ciprodex 0.3 %-0.1 % ear drops,suspension RxNorm: 659909 SHAKE LIQUID AND INSTILL 4 DROPS IN AFFECTED EAR(S) TWICE DAILY 09/22/2019 10/15/2019 I nactive diazepam 10 mg tablet RxNorm: 046522 TAKE 1 TABLET BY M OUTH EVERY NIGHT AT BEDTIME NEEDED 09/11/2019 10/10/2019 Inactive meclizine 12.5 mg tablet RxNorm: 842550 TAKE 1 TABLET B Y MOUTH THREE TIMES DAILY NEEDED 08/31/2019 10/29/2019 Active Ciprodex 0.3 %-0.1 % ear drops,suspension RxNorm: 487167 SHAKE LIQUID AND INSTILL 4 DROPS IN AFFECTED EAR(S) TWICE DAILY 08/31/2019 09/07/2019 I nactive Ciprodex 0.3 %-0.1 % ear drops,suspension RxNorm: 262877 SHAKE LIQUID AND INSTILL 4 DROPS IN AFFECTED EAR(S) TWICE DAILY 08/11/2019 08/18/2019 I nactive meclizine 12.5 mg tablet RxNorm: 285559 TAKE 1 TABLET B Y MOUTH THREE TIMES DAILY NEEDED 08/04/2019 08/30/2019 Inactive cefdinir 250 mg/5 mL oral suspension RxNorm: 646270 12 Milliliter(s) Oral QD though PEG tube 07/25/2019 08/03/2019 Inactive Zenpep 40,000 unit-126,000 unit-168,000 unit capsule,d elayed release RxNorm: 4460562 1 Capsule(s) Oral AC 07/10/2019 10/15/2019 Inactive famotidine 20 mg tablet RxNorm: 201291 TAKE 1 TABLET BY MOUTH EVERY NIGHT AT BEDTIME 07/09/2019 01/04/2020 Active sertraline 50 mg tablet RxNorm: 012610 TAKE 1 TABLET BY MOUTH EVERY NIGHT AT BEDTIME 07/09/2019 09/06/2019 Inactive Zenpep 40,000 unit-126,000 unit-168,000 unit capsule,d elayed release RxNorm: 0695904 1 Capsule(s) Oral AC 06/12/2019 07/09/2019 Inactive Zenpep 40,000 unit-126,000 unit-168,000 unit capsule,d elayed release RxNorm: 5487669 1 Capsule(s) Oral AC 05/24/2019 05/23/2019 Inactive Zenpep 40,000 unit-126,000 unit-168,000 unit capsule,d elayed release RxNorm: 1513610 1 Capsule(s) Oral AC 05/24/2019 10/16/2019 Inactive Ciprodex 0.3 %-0.1 % ear drops,suspension RxNorm: 431246 DROP(S) 4 DROP(S) OTIC BID 05/22/2019 06/18/2019 Inactive oxcarbazepine 300 mg/5 mL (60 mg/mL) oral suspension RxNorm: 585998 15 Milliliter(s) Oral two times a day 05/08/2019 11/03/2019 Active meclizine 12.5 mg tablet RxNorm: 089284 1 TABLET(S) PO TID NEEDE D 05/05/2019 08/02/2019 Inactive change in quantity Zithromax 200 mg/5 mL oral suspension RxNorm: 635056 12.5 Dilcia liter(s) Oral QD 05/04/2019 05/09/2019 Inactive amoxicillin 400 mg/5 mL oral suspension RxNorm: 036446 10 Milliliter(s) Oral two times a day 05/03/2019 05/13/2019 Inactive Singulair 10 mg tablet RxNorm: 981883 1 TABLET(S) PO QD 03/28/2019 Inactive Macrobid 100 mg capsule RxNorm: 621076 1 Capsule(s) PO BID 03/16/2003/22/2019 Inactive meclizine 12.5 mg tablet RxNorm: 976434 1 Tablet(s) PO TID as neede d 03/10/2019 05/04/2019 Inactive change in quantity Ciprodex 0.3 %-0.1 % ear drops,suspension RxNorm: 030886 DROP(S) 4 DROP(S) OTIC BID 03/08/2019 04/04/2019 Inactive oxcarbazepine 300 mg/5 mL (60 mg/mL) oral suspension RxNorm: 257204 15 Milliliter(s) PO BID 03/07/2019 05/07/2019 Inactive Macrobid 100 mg capsule RxNorm: 070960 1 Capsule(s) PO BID 02/21/2003/01/2019 Inactive Macrobid 100 mg capsule RxNorm: 955974 1 Capsule(s) PO BID 02/21/2002/19/2019 Inactive meclizine 12.5 mg tablet RxNorm: 255433 1 Tablet(s) PO TID as neede d 02/06/2019 03/07/2019 Inactive change in quantity Ciprodex 0.3 %-0.1 % ear drops,suspension RxNorm: 393056 DROP(S) 4 DROP(S) OTIC BID 01/30/2019 02/12/2019 Inactive diazepam 10 mg tablet RxNorm: 595432 1 Tablet(s) PO QHS as needed 0 01/27/2019 09/10/2019 Inactive sertraline 50 mg tablet RxNorm: 429858 1 Tablet(s) PO QHS 12/29/2018 06/26/2019 Inactive famotidine 20 mg tablet RxNorm: 915249 1 Tablet(s) PO QHS 12/29/2018 06/26/2019 Inactive Ciprodex 0.3 %-0.1 % ear drops,suspension RxNorm: 360731 DROP(S) 4 DROP(S) OTIC BID 12/14/2018 12/27/2018 Inactive Generlac 10 gram/15 mL oral solution RxNorm: 799677 15 Milliliter(s) PO TWO TO THREE TIMES DAILY 12/06/2018 06/03/2019 Inactive Protonix 40 mg tablet,delayed release RxNorm: 411266 1 Tablet(s) PO or per feeding tube BID 11/24/2018 10/15/2019 Inactive meclizine 12.5 mg tablet RxNorm: 443301 1 Tablet(s) PO TID as neede d 11/11/2018 02/06/2019 Inactive change in quantity Ciprodex 0.3 %-0.1 % ear drops,suspension RxNorm: 095661 DROP(S) 4 DROP(S) OTIC BID 11/08/2018 11/21/2018 Inactive diazepam 10 mg tablet RxNorm: 693976 1 Tablet(s) PO QHS as needed 0 10/21/2018 11/19/2018 Inactive Generlac 10 gram/15 mL oral solution RxNorm: 318510 Mil liliter(s) 15 MILLILITER(S) PO TWO TO THREE TIMES DAILY 10/07/2018 11/05/2018 Inacti ve Ciprodex 0.3 %-0.1 % ear drops,suspension RxNorm: 107298 DROP(S) DROP(S) 4 DROP(S) OTIC BID 08/26/2018 03/15/2019 Inactive meclizine 12.5 mg tablet RxNorm: 632169 1 TABLET(S) PO TID NEEDE D 07/25/2018 10/22/2018 Inactive change in quantity oxcarbazepine 300 mg/5 mL (60 mg/mL) oral suspension RxNorm: 788137 15 Milliliter(s) PO BID 07/08/2018 07/07/2018 Inactive oxcarbazepine 300 mg/5 mL (60 mg/mL) oral suspension RxNorm: 768752 15 Milliliter(s) PO BID 07/08/2018 01/03/2019 Inactive sertraline 50 mg tablet RxNorm: 507598 1 TABLET(S) PO QHS 07/06/2018 12/28/2018 Inactive Singulair 10 mg tablet RxNorm: 938474 1 TABLET(S) PO QD 06/24/2018 Inactive Ciprodex 0.3 %-0.1 % ear drops,suspension RxNorm: 794660 DROP(S) 4 DROP(S) OTIC BID 06/20/2018 06/19/2018 Inactive Ciprodex 0.3 %-0.1 % ear drops,suspension RxNorm: 270859 Drop(s) DROP(S) 4 DROP(S) OTIC BID 06/20/2018 07/03/2018 Inactive cefdinir 250 mg/5 mL oral suspension RxNorm: 940813 12 Milliliter(s) PO QD though PEG tube 06/13/2018 06/22/2018 Inactive famotidine 20 mg tablet RxNorm: 232410 1 Tablet(s) PO QHS 05/31/2018 11/26/2018 Inactive famotidine 40 mg/5 mL (8 mg/mL) oral suspension RxNorm: 3102 74 2.5 Milliliter(s) PO QHS 04/29/2018 06/12/2018 Inactive meclizine 12.5 mg tablet RxNorm: 582560 1 TABLET(S) PO TID NEEDE D 04/25/2018 07/23/2018 Inactive change in quantity Generlac 10 gram/15 mL oral solution RxNorm: 874219 Mil liliter(s) 15 MILLILITER(S) PO TWO TO THREE TIMES DAILY 04/04/2018 05/03/2018 Inacti ve Ciprodex 0.3 %-0.1 % ear drops,suspension RxNorm: 658659 Drop(s) 4 DROP(S) OTIC BID 04/04/2018 04/17/2018 Inactive diazepam 10 mg tablet RxNorm: 401939 1 Tablet(s) PO QHS as needed 1 05/03/2018 Inactive famotidine 40 mg/5 mL (8 mg/mL) oral suspension RxNorm: 3102 74 2.5 Milliliter(s) PO QHS 04/04/2018 04/28/2018 Inactive Generlac 10 gram/15 mL oral solution RxNorm: 357384 15 MILLILITER(S) PO TWO TO THREE TIMES DAILY 03/24/2018 04/03/2018 Inactive Singulair 10 mg tablet RxNorm: 450168 1 TABLET(S) PO QD 03/18/2018 Inactive Ciprodex 0.3 %-0.1 % ear drops,suspension RxNorm: 839789 Drop(s) 4 DROP(S) OTIC BID 03/08/2018 03/21/2018 Inactive Generlac 10 gram/15 mL oral solution RxNorm: 748726 15 Milliliter(s) PO two to three times daily 03/03/2018 03/23/2018 Inactive meclizine 12.5 mg tablet RxNorm: 762882 1 Tablet(s) PO TID as neede d 02/10/2018 04/10/2018 Inactive change in quantity meclizine 12.5 mg tablet RxNorm: 857648 1 Tablet(s) PO BID as neede d 02/07/2018 02/09/2018 Inactive change in quantity Ciprodex 0.3 %-0.1 % ear drops,suspension RxNorm: 364955 Drop(s) 4 DROP(S) OTIC BID 02/02/2018 03/08/2018 Inactive sertraline 50 mg tablet RxNorm: 980207 1 TABLET(S) PO QHS 01/25/2018 07/05/2018 Inactive Zithromax 200 mg/5 mL oral suspension RxNorm: 714333 12.5 Dilcia liter(s) PO QD 12/31/2017 01/04/2018 Inactive Pepcid 20 mg tablet RxNorm: 759724 TABLET(S) 1 TABLET(S) PO QHS 04/29/2018 Inactive famotidine 40 mg/5 mL (8 mg/mL) oral suspension RxNorm: 3102 74 2.5 Milliliter(s) PO QHS 12/28/2017 12/27/2017 Inactive famotidine 40 mg/5 mL (8 mg/mL) oral suspension RxNorm: 3102 74 2.5 Milliliter(s) PO QHS 12/28/2017 04/03/2018 Inactive Ciprodex 0.3 %-0.1 % ear drops,suspension RxNorm: 822002 Drop(s) 4 DROP(S) OTIC BID 12/27/2017 02/02/2018 Inactive meclizine 12.5 mg tablet RxNorm: 013453 1 Tablet(s) PO BID as neede d 12/23/2017 02/06/2018 Inactive change in quantity Protonix 40 mg tablet,delayed release RxNorm: 072383 1 Tablet(s) PO or per feeding tube BID 12/16/2017 07/13/2018 Inactive oxcarbazepine 300 mg/5 mL (60 mg/mL) oral suspension RxNorm: 713794 15 Milliliter(s) PO BID 12/16/2017 07/08/2018 Inactive meclizine 12.5 mg tablet RxNorm: 170855 1 Tablet(s) PO BID as neede d 12/15/2017 02/07/2018 Inactive change in quantity Pepcid 40 mg/5 mL (8 mg/mL) oral suspension RxNorm: 652183 5 Milliliter(s) PO QHS to replace nighttime pantoprazole dose 12/14/2017 12/27/2017 Inact марина meclizine 12.5 mg tablet RxNorm: 434673 1 Tablet(s) PO BID as neede d 12/13/2017 12/23/2017 Inactive diazepam 10 mg tablet RxNorm: 077964 1 Tablet(s) PO QHS as needed 0 12/02/2017 03/01/2018 Inactive prednisolone 15 mg/5 mL oral solution RxNorm: 415092 5 Milliliter(s) PO BID for 3 days then 5ml daily for 3 days then 2.5ml daily for 3 days 12/02/2017 12/13/2017 Inactive sertraline 50 mg tablet RxNorm: 907795 1 Tablet(s) PO QHS 11/04/2017 01/24/2018 Inactive Ciprodex 0.3 %-0.1 % ear drops,suspension RxNorm: 372926 Drop(s) 4 DROP(S) OTIC BID 10/18/2017 10/31/2017 Inactive Ciprodex 0.3 %-0.1 % ear drops,suspension RxNorm: 055596 Drop(s) 4 DROP(S) OTIC BID 10/18/2017 12/27/2017 Inactive Singulair 10 mg tablet RxNorm: 830410 1 Tablet(s) PO QD 09/30/2017 Inactive diazepam 5 mg/5 mL (1 mg/mL) oral solution RxNorm: 393196 2.5 Milliliter(s) PO QD give additional 5 mg dose if seizure occurs 09/17/2017 No Stop Date A ctive Bactrim DS 800 mg-160 mg tablet RxNorm: 570647 1 Tablet(s) PO BID 0 09/17/2017 09/23/2017 Inactive Ciprodex 0.3 %-0.1 % ear drops,suspension RxNorm: 232419 4 DROP (S) OTIC BID 09/13/2017 10/18/2017 Inactive cefdinir 250 mg/5 mL oral suspension RxNorm: 619527 12 Milliliter(s) PO QD though PEG tube 08/06/2017 08/15/2017 Inactive sertraline 50 mg tablet RxNorm: 411412 1 Tablet(s) PO QHS 08/02/2017 11/04/2017 Inactive Ciprodex 0.3 %-0.1 % ear drops,suspension RxNorm: 983414 4 DROP (S) OTIC BID 07/22/2017 08/11/2017 Inactive Singulair 10 mg tablet RxNorm: 256415 1 Tablet(s) PO QD 06/30/2017 Inactive diazepam 10 mg tablet RxNorm: 726423 TAKE 1 TABLET BY M OUTH EVERY NIGHT AT BEDTIME NEEDED 06/04/2017 07/03/2017 Inactive oxcarbazepine 300 mg/5 mL (60 mg/mL) oral suspension RxNorm: 583474 15 MILLILITER(S) PO BID 05/03/2017 12/16/2017 Inactive sertraline 50 mg tablet RxNorm: 972866 1 Tablet(s) PO QHS 05/03/2017 08/02/2017 Inactive Protonix 40 mg tablet,delayed release RxNorm: 375682 1 Tablet(s) PO or per feeding tube BID 04/26/2017 12/16/2017 Inactive Ciprodex 0.3 %-0.1 % ear drops,suspension RxNorm: 309273 4 DROP (S) OTIC BID 04/26/2017 05/23/2017 Inactive Generlac 10 gram/15 mL oral solution RxNorm: 232740 Mil liliter(s) TAKE 15 ML BY MOUTH TWO-THREE TIMES DAILY 04/08/2017 03/03/2018 Inactive Singulair 10 mg tablet RxNorm: 516494 1 Tablet(s) PO QD 03/03/2017 Inactive diazepam 10 mg tablet RxNorm: 535813 1 Tablet(s) PO QHS as needed 0 02/15/2017 06/04/2017 Inactive Singulair 10 mg tablet RxNorm: 874231 1 Tablet(s) PO QD 12/01/2016 Inactive Diflucan 150 mg tablet RxNorm: 490895 Tablet(s) Give 1 tab PO now and then repeat dose in 5 days 11/10/2016 03/31/2017 Inactive Zithromax 200 mg/5 mL oral suspension RxNorm: 194770 12.5 Dilcia liter(s) PO QD 11/10/2016 11/14/2016 Inactive Singulair 10 mg tablet RxNorm: 404870 TAKE 1 TABLET BY MOUTH ON CE DAILY 11/02/2016 12/01/2016 Inactive diazepam 10 mg tablet RxNorm: 726390 TAKE 1 TABLET BY M OUTH EVERY NIGHT AT BEDTIME NEEDED 10/21/2016 11/19/2016 Inactive sertraline 50 mg tablet RxNorm: 595799 1 Tablet(s) PO QHS 10/12/2016 01/09/2017 Inactive fluconazole 100 mg tablet RxNorm: 342895 1 Tablet(s) PO QD 09/23/19 17 09/24/2016 Inactive fluconazole 100 mg tablet RxNorm: 014296 1 Tablet(s) PO QD 09/23/19 17 09/21/2016 Inactive Bactrim DS 800 mg-160 mg tablet RxNorm: 552911 1 Tablet(s) PO BID 0 09/10/2016 09/09/2016 Inactive Bactrim DS 800 mg-160 mg tablet RxNorm: 854685 1 Tablet(s) PO BID 0 09/10/2016 09/16/2016 Inactive oxcarbazepine 300 mg/5 mL (60 mg/mL) oral suspension RxNorm: 033767 15 Milliliter(s) PO BID 09/07/2016 03/05/2017 Inactive sertraline 50 mg tablet RxNorm: 512081 1 Tablet(s) PO QHS 07/06/2016 10/03/2016 Inactive Pepcid 20 mg tablet RxNorm: 016194 Tablet(s) 1 TABLET(S) PO QHS 08/201603/08/2017 Inactive sertraline 50 mg tablet RxNorm: 939461 1 Tablet(s) PO QHS 06/08/2016 05/03/2017 Inactive Generlac 10 gram/15 mL oral solution RxNorm: 031254 Mil liliter(s) TAKE 15 ML BY MOUTH TWO-THREE TIMES DAILY 06/08/2016 09/08/2016 Inactive Pepcid 20 mg tablet RxNorm: 752349 1 TABLET(S) PO QHS 06/04/201607/2016 Inactive fluconazole 100 mg tablet RxNorm: 612767 1 Tablet(s) QD through PEG tube 05/13/2016 12/01/2017 Inactive Diflucan 150 mg tablet RxNorm: 415406 Give 1 tab PO now and then repeat dose in 5 days 03/19/2016 11/09/2016 Inactive ceftriaxone 1 gram solution for injection RxNorm: 0344148 1 Gram(s) IM QD Wednesday and Wednesday03/19/2016 11/09/2016 Inactive lidocaine 10 mg/mL (1 %) injection solution RxNorm: 8180814 Use as directed to reconstitute Rocephin when needed 03/19/2016 12/13/2017 Inactive Generlac 10 gram/15 mL oral solution RxNorm: 976592 JOE E 15 ML BY MOUTH TWO- THREE TIMES DAILY 03/19/2016 06/07/2016 Inactive oxcarbazepine 300 mg/5 mL oral suspension RxNorm: 138585 15 Milliliter(s) PO BID 03/13/2016 09/07/2016 Inactive Ciprodex 0.3 %-0.1 % ear drops,suspension RxNorm: 043535 4 DROP (S) OTIC BID 03/09/2016 03/15/2016 Inactive cefdinir 250 mg/5 mL oral suspension RxNorm: 550907 11. 75 Milliliter(s) PO QD though PEG tube 03/02/2016 03/08/2016 Inactive cefdinir 250 mg/5 mL oral suspension RxNorm: 138482 11. 75 Milliliter(s) PO QD though PEG tube 02/24/2016 03/01/2016 Inactive cefdinir 250 mg/5 mL oral suspension RxNorm: 728349 11. 75 Milliliter(s) PO QD though PEG tube 02/24/2016 02/23/2016 Inactive Ciprodex 0.3 %-0.1 % ear drops,suspension RxNorm: 783484 4 Drop (s) OTIC BID 02/24/2016 03/01/2016 Inactive Generlac 10 gram/15 mL oral solution RxNorm: 020131 JOE E 15 ML BY MOUTH TWICE DAILY 02/17/2016 03/18/2016 Inactive Generlac 10 gram/15 mL oral solution RxNorm: 161079 15 Millilit er(s) PO BID 01/23/2016 02/16/2016 Inactive Pepcid 20 mg tablet RxNorm: 416178 1 TABLET(S) PO QHS 01/13/201605/07 Inactive Ciprodex 0.3 %-0.1 % ear drops,suspension RxNorm: 110023 4 Drop (s) OTIC BID 12/23/2015 12/29/2015 Inactive sertraline 50 mg tablet RxNorm: 416850 1 Tablet(s) PO QHS 12/16/2015 06/07/2016 Inactive Zithromax 500 mg tablet RxNorm: 610587 1 Tablet(s) PO QD 12/16/2015 0 12/22/2015 Inactive Pepcid 20 mg tablet RxNorm: 181728 1 Tablet(s) PO QHS 12/16/201501/02 Inactive Zithromax 500 mg tablet RxNorm: 173260 1 Tablet(s) PO QD 11/12/2015 0 11/18/2015 Inactive Singulair 10 mg tablet RxNorm: 549878 1 Tablet(s) PO BID 10/16/2015 0 11/11/2015 Inactive diazepam 10 mg tablet RxNorm: 129011 1 Tablet(s) PO QHS 10/07/2015 Inactive diazepam 10 mg tablet RxNorm: 992047 1 Tablet(s) PO QHS 10/07/2015 Inactive fexofenadine 30 mg/5 mL oral suspension RxNorm: 009375 10 Milliliter(s) PO one to two times daily PRN allergies 09/20/2015 12/15/2015 Inactive ceftriaxone 1 gram solution for injection RxNorm: 2340495 1 Gram (s) IM QD 09/20/2015 09/21/2015 Inactive Ciprodex 0.3 %-0.1 % ear drops,suspension RxNorm: 551246 4 Drop (s) OTIC BID 09/20/2015 10/03/2015 Inactive Protonix 40 mg tablet,delayed release RxNorm: 246304 1 Tablet(s) PO or per feeding tube BID 08/21/2015 12/18/2015 Inactive Carafate 100 mg/mL oral suspension RxNorm: 136891 10 Mi lliliter(s) Miscellaneous per feeding tube AC & HS 08/21/2015 09/19/2015 Inactive Zyrtec 10 mg tablet RxNorm: 8210999 1 Tablet(s) PO QD No Start Date Active diazepam 20 mg rectal kit RxNorm: 051862 RTL as needed No Start Date Active ondansetron HCl 4 mg/5 mL oral solution RxNorm: 896222 10 Milliliter(s) PO as needed and through tube No Start Date Active sertraline 50 mg tablet RxNorm: 307857 1 Tablet(s) PO QD No Start D ate 12/15/2015 Inactive Birttany 180 mg tablet RxNorm: 997661 1 Tablet(s) PO QD No Start Date 06/12/2018 Inactive Generlac 10 gram/15 mL oral solution RxNorm: 140655 15 Millilit er(s) PO BID No Start Date 01/22/2016 Inactive oxcarbazepine 300 mg/5 mL oral suspension RxNorm: 967897 13.5 Milliliter(s) PO QAM and 15ml in the evening No Start Date 12/15/2015 Inactive Singulair 10 mg tablet RxNorm: 075509 1 Tablet(s) PO QD No Start Da te 11/30/2016 Inactive meclizine 12.5 mg tablet RxNorm: 062740 1 Tablet(s) PO TID as needed for dizziness No Start Date 09/13/2017 Inactive meclizine 12.5 mg tablet RxNorm: 511117 1 Tablet(s) PO BID No Start Date 12/12/2017 Inactive fluconazole 100 mg tablet RxNorm: 721389 1 Tablet(s) QD through PEG tube No Start Date 05/12/2016 Inactive Lortab Elixir 10 mg-300 mg/15 mL oral solution RxNorm: 99395 45 8 PO Q6-8H as needed No Start Date 10/22/2019 Inactive Flomax 0.4 mg capsule RxNorm: 633556 1 Capsule(s) PO QD No Start Da te 06/12/2018 Inactive diazepam 10 mg tablet RxNorm: 759281 1 Tablet(s) PO QHS as needed N o Start Date 02/14/2017 Inactive Generlac 10 gram/15 mL oral solution RxNorm: 190293 15 Milliliter(s) PO two to three times daily No Start Date 03/02/2018 Inactive oxcarbazepine 300 mg/5 mL oral suspension RxNorm: 683042 15 Milliliter(s) PO BID No Start Date 12/15/2017 Inactive Medication Administered No Medication Administered data Immunizations Vaccine Codes Date Status Influenza CVX: 141 04/21/2019 Results No Results data Procedures Procedure Codes Date DEXAMETHASONE SODIUM PHOS CPT-4: J1100 10/06/2019 THER/PROPH/DIAG INJ SC/IM CPT-4: 66491 10/06/2019 DEXAMETHASONE SODIUM PHOS CPT-4: J1100 05/03/2019 THER/PROPH/DIAG INJ SC/IM CPT-4: 28305 05/03/2019 CEFTRIAXONE SODIUM INJECTION CPT-4: J0696 03/19/2016 THER/PROPH/DIAG INJ SC/IM CPT-4: 43426 03/19/2016 DEXAMETHASONE SODIUM PHOS CPT-4: J1100 11/12/2015 THER/PROPH/DIAG INJ SC/IM CPT-4: 19185 11/12/2015 CEFTRIAXONE SODIUM INJECTION CPT-4: J0696 09/20/2015 THER/PROPH/DIAG INJ SC/IM CPT-4: 79327 09/20/2015 THER/PROPH/DIAG INJ SC/IM CPT-4: 19331 09/10/2015 METHYLPREDNISOLONE 40 MG INJ CPT-4: J1030 09/10/2015 TRIAMCINOLONE ACET INJ NOS CPT-4: J3301 09/10/2015 Vital Signs Date Vital 07/25/2019 Blood Pressure 1: 116/80 Code: 8480-6 BMI: 23.2 Code: 40722-6 Heart Rate 1: 81 bpm Height: 4'5" Respiratory Rate: 16 bpm SpO2: 100% Tempera ture: 36.8 (C) / 98.2 (F) Weight: 92 lbs 06/12/2019 Blood Pressure 1: 112/74 Code: 8480-6 BMI: 23.2 Code: 46047-5 Heart Rate 1: 102 bpm Height: 4'5" [...] 1: 114/70 Code: 8480-6 BMI: 23.1 Code: 45859-3 Heart Rate 1: 80 bpm Height: 4'6" [...] visit Encounters Encounter Performer Location Codes Date ([id number]) OFFICE/OUTPATIENT VISIT EST Diagnosis: Otalgia, bilateral[ICD10: H92.03] Fatou Onofre [facility] [employer] [facility] CPT-4: 67269 10/23/2019 ([id number]) NURSE/OUTPATIENT VISIT EST Diagnosis: Allergic rhinitis, unspecified[ICD10: J30.9] Keily LINARES [employer] CPT-4: 39598 10/06/2019 ([id number]) OFFICE/OUTPATIENT VISIT EST Diagnosis: Allergic rhinitis[ICD10: J30.9] Fatou Onofre [employer] CPT-4: 72996 10/05/2019 ([id number]) OFFICE/OUTPATIENT VISIT EST Diagnosis: Sinusitis[ICD10: J32.9] Fatou RIOSLINE [employer] CPT-4: 78341 07/25/2019 ([id number]) PREV VISIT EST AGE 18-39 Diagnosis: Encounter for general adult medical examination with abnormal findings[ICD10: Z00.01] Diagnosis: Chronic pancreatitis[ICD10: K86.1] Diagnosis: Cerebral palsy, unspecified[ICD10: G80.9] Keily LINARES [employer] CPT-4: 59529 06/12/2019 ([id number]) OFFICE/OUTPATIENT VISIT EST Diagnosis: Pneumonia, organism unspecified[ICD10: J18.9] Diagnosis: Breast mass, right[ICD10: N63.10] Keily ARANGO [place] [facility] CPT-4: 66313 05/08/2019 ([id number]) OFFICE/OUTPATIENT VISIT EST Diagnosis: Allergic rhinitis due to pollen[ICD10: J30.1] Diagnosis: Otitis media, unspecified, right ear[ICD10: H66.91] Fatou ARANGO DO [facility] CPT-4: 57383 05/03/2019 ([id number]) OFFICE/OUTPATIENT VISIT EST Diagnosis: Irritability and anger[ICD10: R45.4] Nataliia ARANGO [place] [facility] CPT-4: 07608 11/25/2018 ([id number]) OFFICE/OUTPATIENT VISIT EST Diagnosis: Acute suppurative otitis media without spontaneous rupture of ear drum, bilateral[ICD10: H66.003] Fatou ARANGO [place] [facility] CPT-4: 78198 06/13/2018 ([id number]) OFFICE/OUTPATIENT VISIT EST Diagnosis: Other fatigue[ICD10: R53.83] Diagnosis: Anuria and oliguria[ICD10: R34] Diagnosis: Acute gastritis without bleeding[ICD10: K29.00] Fatou ARANGO [place] [facility] CPT-4: 91216 01/04/2018 ([id number]) OFFICE/OUTPATIENT VISIT EST Diagnosis: Acute bronchitis, unspecified[ICD10: J20.9] Fatou ARANGO DO [facility] CPT-4: 98012 12/31/2017 ([id number]) PREV VISIT EST AGE 18-39 Diagnosis: Encounter for general adult medical examination without abnormal findings[ICD10: Z00.00] Diagnosis: Severe intellectual disabilities[ICD10: F72] Diagnosis: Allergic rhinitis due to pollen[ICD10: J30.1] Diagnosis: Epilepsy, unspecified, intractable, without status epilepticus[ICD10: G40.919] Diagnosis: Gastro-esophageal reflux disease without esophagitis[ICD10: K21.9] Keily ARANGO [place] [facility] CPT-4: 47286 12/14/2017 ([id number]) OFFICE/OUTPATIENT VISIT EST Diagnosis: Allergic rhinitis due to pollen[ICD10: J30.1] Diagnosis: Epilepsy, unspecified, intractable, without status epilepticus[ICD10: G40.919] Keily Burtondominique KEILY Bobby [facility] CPT-4: 84169 12/02/2017 ([id number]) OFFICE/OUTPATIENT VISIT EST Diagnosis: Other allergic rhinitis[ICD10: J30.89] Fatou Bobby [facility] CPT-4: 91569 10/12/2017 OFFICE/OUTPATIENT VISIT EST Diagnosis: Acute suppurative otitis media without spontaneous rupture of ear drum, recurrent, left ear[ICD10: H66.005] Diagnosis: Epilepsy, unspecified, intractable, without status epilepticus[ICD10: G40.919] Diagnosis: Hesitancy of micturition[ICD10: R39.11] [facility] 12970 09/17/2017 OFFICE/OUTPATIENT VISIT EST Diagnosis: Otitis media, unspecified, left ear[ICD10: H66.92] [facility] 82665 08/06/2017 ([id number]) OFFICE/OUTPATIENT VISIT EST Diagnosis: Vertigo of central origin, 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.49] Diagnosis: Dizziness and giddiness[ICD10: R42] Keily Arango RENEJODI [facility] CPT-4: 26247 04/01/2017 OFFICE/OUTPATIENT VISIT EST Diagnosis: Vomiting, unspecified[ICD10: R11.10] Diagnosis: 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)[ICD10: K56.5] Diagnosis: Personal history of urinary calculi[ICD10: Z87.442] Emely Hdz KEILY Bobby [facility] CPT-4: 25255 03/01/2017 ([id number]) OFFICE/OUTPATIENT VISIT EST Diagnosis: Allergic rhinitis due to pollen[ICD10: J30.1] Diagnosis: Acute and subacute allergic otitis media (mucoid) (sanguinous) (serous), left ear[ICD10: H65.112] Keily [facility] CPT-4: 32723 11/10/2016 ([id number]) OFFICE/OUTPATIENT VISIT EST Diagnosis: 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] Diagnosis: Unspecified ovarian cyst, right side[ICD10: N83.201] Diagnosis: Cyst of kidney, 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] [facility]: 04512 08/13/2016 ([id number]) OFFICE/OUTPATIENT VISIT EST Diagnosis: Rash and other nonspecific skin eruption[ICD10: R21] [facility]: 28343 03/27/2016 ([id number]) OFFICE/OUTPATIENT VISIT EST Diagnosis: Urinary tract infection, site not specified[ICD10: N39.0] [facility]PT[facility]: 98697 03/23/2016 ([id number]) OFFICE/OUTPATIENT VISIT EST Diagnosis: Retention of urine, unspecified[ICD10: R33.9] Diagnosis: Dysuria[ICD10: R30.0] Diagnosis: Constipation, unspecified[ICD10: K59.00] Aziza Magallanes SIOMARA LAWTON Diamante [facility] CPT-[facility]: 06423 03/19/2016 ([id number]) OFFICE/OUTPATIENT VISIT EST Diagnosis: Acute sinusitis, unspecified[ICD10: J01.90] [facility] CPT[facility]: 74853 03/02/2016 OFFICE/OUTPATIENT VISIT EST Diagnosis: Other fatigue[ICD10: R53.83] Diagnosis: Retention of urine, unspecified[ICD10: R33.9] Diagnosis: Dysuria[ICD10: R30.0] Diagnosis: Generalized abdominal pain[ICD10: R10.84] 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] Aziza [facility] CPT[facility]: 35265 02/24/2016 ([id number]) OFFICE/OUTPATIENT VISIT EST Diagnosis: Chronic mucoid otitis media, right ear[ICD10: H65.31] Diagnosis: Allergic rhinitis, unspecified[ICD10: J30.9] Diagnosis: 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] Keily [facility] CPT-4: 88415 12/16/2015 ([id number]) OFFICE/OUTPATIENT VISIT EST Diagnosis: Allergic rhinitis, unspecified[ICD10: J30.9] Diagnosis: Acute recurrent sinusitis, unspecified[ICD10: J01.91] Keily [facility] CPT-4: 60842 11/12/2015 ([id number]) OFFICE/OUTPATIENT VISIT EST Diagnosis: Other seasonal allergic rhinitis[ICD10: J30.2] Diagnosis: Nausea with vomiting, unspecified[ICD10: R11.2] Diagnosis: Epigastric pain[ICD10: R10.13] Aziza [facility] CPT-[facility]: 48799 10/16/2015 OFFICE/OUTPATIENT VISIT EST Diagnosis: Encounter for follow-up examination after completed treatment for conditions other than malignant neoplasm[ICD10: Z09] Diagnosis: Generalized abdominal pain[ICD10: R10.84] [facility] CPT-[facility]: 61747 09/23/2015 ([id number]) OFFICE/OUTPATIENT VISIT EST Diagnosis: Otitis media, unspecified, right ear[ICD10: H66.91] Diagnosis: Constipation, unspecified[ICD10: K59.00] Diagnosis: Allergic rhinitis, unspecified[ICD10: J30.9] Aziza [facility] CPT-4: 45163 09/20/2015 OFFICE/OUTPATIENT VISIT EST Diagnosis: Allergic rhinitis, unspecified[ICD10: J30.9] Diagnosis: Unspecified perforation of tympanic membrane, right ear[ICD10: H72.91] Bibiana Garg KEILY [facility] CPT-4: 65135 09/10/2015 OFFICE/OUTPATIENT VISIT NEW Diagnosis: Epilepsy, unspecified, intractable, without status epilepticus[ICD10: G40.919] Diagnosis: Gastric ulcer, unspecified as acute or chronic, without hemorrhage or perforation[ICD10: K25.9] Diagnosis: Severe intellectual disabilities[ICD10: F72] Keily [facility] CPT-4: 97443 08/21/2015 Plan of Care Planned Activity Notes [...] H92.03 10/23/2019 Patient Education: cefdinir- [employer] Coupon [id number] https://www.[email or web address]/samplemd/resources/getResource/61/0675962f-e9bx-51pf-20 Completed 10/23/2019 Appointment: Keily Arango WPtel: [phone] [facility] US INJECTION 10/06/2019 Visit Diagnosis Plan: [...] : J30.9 10/05/2019 Appointment: Fatou Onofre [address] [facility] TELEMEDICINE 10/05/2019 Visit Diagnosis Plan: Sinusitis Discussion: due to dean h of illness and symptoms, cefdinir prescribed to take as directed. call office with any new or worsening symptoms. ICD-9 : 473.9 ICD-10 : J32.9 07/25/2019 Appointment: Fatou Onofre [address] ACUTE ILLNESS 07/25/2019 Patient Education: cefdinir- [employer] Coupon [id number] https://www.[employer].com/samplemd/resources/getResource/61/rw5l1jmp-4366-3695-6e Completed 07/25/2019 Visit Diagnosis Plan: Chronic pancreatitis Discussion: Continue zenpep and recheck CMP with amylase/lipase in 1 month ICD-9 : 577.1 ICD-10 : K86.1 06/12/2019 Appointment: Keily Arango WPtel: [phone] Annual Well Visit 06/12/2019 Visit Diagnosis [...] : J18.9 05/08/2019 Appointment: Keily Arango WPtel: [facility] [address] Hospital Follow Up 05/08/2019 Visit Diagnosis [...] : J30.1 05/03/2019 Appointment: Fatou Onofre [address] [place] [address] ACUTE ILLNESS 05/03/2019 Patient Education: amoxicillin- [employer] Coupon [id number] https://www.[employer].com/samplemd/resources/getResource/61/zpr27501-18l8-5164-81 Completed 05/03/2019 Visit Diagnosis Plan: Irritability and [...] ICD-10 : R45.4 11/25/2018 Appointment: Nataliia Hsieh [address] [place] [address] ACUTE ILLNESS 11/25/2018 Visit Diagnosis Plan: Acute suppurative otitis media without spontaneous rupture of ear drum, bilateral Discussion: cefdinir for 10 days. if wor sening symptoms later this week, call clinic. push fluids and tylenol/ibuprofen prn pain or fever. ICD-9 : 382.00 ICD-10 : H66.003 06/13/2018 Appointment: Fatou Onofre [address] [place] [address] ACUTE ILLNESS 06/13/2018 Visit Diagnosis Plan: Anuria [...] ICD-10 : R53.83 01/04/2018 Appointment: Fatou Onofre [address] [place] [address] ACUTE ILLNESS 01/04/2018 Patient Education: Patient Medication Summary Completed 01/04/2018 Visit Diagnosis Plan: Acute bronchitis, unspecified Di scussion: zithromax prescribed to take as directed. continue with allergy meds including flonase to help dry congestion. call office next week if new or worsening symptoms. ICD-9 : 466.0 ICD-10 : J20.9 12/31/2017 Appointment: Fatou Onofre [address] [place] [address] ACUTE ILLNESS 12/31/2017 Patient Education: Patient Medication Summary Completed 12/31/2017 Visit Diagnosis Plan: Epilepsy, unspecif ied, intractable, without status epilepticus Discussion: Stable on current regimen ICD-9 : 345.91 ICD-10 : G40.919 12/14/2017 Visit Diagnosis Plan: Encounter for [facility] medical examination without abnormal findings Discussion: Had recent lab done Follow Up: 3 months ICD-9 : V70.9 ICD-10 : Z00.00 12/14/2017 Visit Diagnosis Plan: Allergic rhinitis due to pollen Discussion: Continue current meds Change night time protonix to pepcid for total histamine blockade ICD-9 : 477.9 ICD-10 : J30.1 12/14/2017 Appointment: Keily Arango WPtel: [address] [place] [address] CHECK UP 12/14/2017 Patient Education: Patient Medication [...] : J30.1 12/02/2017 Appointment: Keily Arango WPtel: [facility] [address] ACUTE ILLNESS 12/02/2017 Patient Education: Patient Medication Summary Completed 12/02/2017 Visit Diagnosis Plan: Other allergic rhinitis Discussi on: symptoms most likely caused from allergies. patient sent to hospital for decadron injection. instructed to restart patient's flonase at home. if new or worsening symptoms, call or rtc. ICD-9 : 477.8 ICD-10 : J30.89 10/12/2017 Appointment: Fatou Onofre [address] [place] [address] ACUTE ILLNESS 10/12/2017 Patient Education: Patient Medication [...] : G40.919 09/17/2017 Appointment: Fatou Onofre [address] [place] [address] ACUTE ILLNESS 09/17/2017 Patient Education: Patient Medication Summary Completed 09/17/2017 Visit Diagnosis Plan: Otitis media, unspecified, left ear Discussion: cefdinir prescribed daily for 10 days. instructed to administer tylenol/ibuprofen for pain or fever. if no improvement, or worsening symptoms, call or rtc. ICD-9 : 380.14 ICD-10 : H66.92 08/06/2017 Appointment: Fatou Onofre [address] [place] [address] ACUTE ILLNESS 08/06/2017 Patient Education: Patient Medication Summary Completed 08/06/2017 Patient Education: Patient Medication Summary Completed 08/02/2017 Patient Education: Patient Medication Summary Completed 04/21/2017 Care Plan: MRI BRAIN STEM W/O DYE [facility] : 37017-6 Pending 04/21/2017 Patient Education: Patient Medication Summary Completed 04/20/2017 Care Plan: MRI BRAIN STEM W/O DYE LOINC : 44390-3 Pending 04/20/2017 Visit Diagnosis Plan: Vertigo of central origin, unspe cified ear Discussion: Continue meclizine at 12.5mg po BID for 2 more weeks then go to 12.5mg daily for 2 weeks then 6.25mg daily for 2 weeks then stop Notify if any symptoms return with weaning process ICD-9 : 386.2 ICD-10 : H81.49 04/01/2017 Appointment: Keily Arango WPtel: [address] [place], [place] [phone] FOLLOW UP 04/01/2017 Patient Education: Patient Medication Summary Completed 04/01/2017 Patient Education: Patient Medication Summary Completed 03/09/2017 Care Plan: CT HEAD/BRAIN W/O DYE LOINC : 07614-7 Pending 03/09/2017 Visit Plan: It's difficult to [...] medications indicated. 03/01/2017 Appointment: Emely Hdz WPtel: [address] [place], [place] [phone] ACUTE ILLNESS 03/01/2017 Patient Education: Patient Medication Summary Completed 03/01/2017 Patient Education: Patient Medication Summary Completed 12/17/2016 Visit Diagnosis Plan: Allergic rhinitis due to pollen Discussion: Continue zyrtec/singulair ICD-9 : 477.9 ICD-10 : J30.1 11/10/2016 Visit Diagnosis Plan: Acute and subacute allergic otitis media (mucoid) (sanguinous) (serous), left ear Discussion: Zithromax ICD-9 : 381.05 ICD-10 : H65.112 11/10/2016 Appointment: Keily Arango WPtel: [facility] [place], [place] [phone] ACUTE ILLNESS 11/10/2016 Patient Education: Patient Medication Summary Completed 11/10/2016 Patient Education: Patient Medication Summary Completed 09/07/2016 Care Plan: URINALYSIS [place] : 18414-1 Pending 09/07/2016 Visit Diagnosis Plan: Unspecified ovarian [...] : N20.0 08/13/2016 Appointment: Keily Arango WPtel: [address] [place], [place] [phone] 08/12 confirmed-sp FOLLOW UP 08/13/2016 Patient Education: Patient Medication Summary Completed 08/13/2016 Patient Education: Patient Medication Summary Completed 05/19/2016 Care Plan: X-RAY EXAM OF FOOT left foot LOINC : 26 095-0 Pending 05/19/2016 Visit Plan: Discussed with Dr Conchita MAGANA C to be drawn Order sent to Will call with results 03/27/2016 Appointment: Elpidio Aziza [address] [id number] ACUTE ILLNESS 03/27/2016 Patient Education: Patient Medication Summary Completed 03/27/2016 Visit Plan: Go for dose of rocephin 1gm IM today and tomorrow then done Diflucan 150mg x1 today Discussed with mom via phone about urology fwup--she will talk with her and let us know 03/23/2016 Appointment: Keily Arango WPtel: [address] [place], [place] [phone] 03/23 confirmed ~sl FOLLOW UP 03/23/2016 Patient Education: Patient Medication Summary Completed 03/23/2016 Visit Plan: Per Dr Arango, straight cat h for UA and culture today Ok to have a standing order for further UA needs at for straight cath Rocephin IM today and daily through Wednesday Mom has arranged a family friend that is an [employer] to give Wednesday and Sundays injections - [...] let us know 03/19/2016 Appointment: Aziza Magallanes [address] [place], [place] [phone] ACUTE ILLNESS 03/19/2016 Patient Education: Patient Medication Summary Completed 03/19/2016 Visit Plan: 1 more week of cefdinir 03/02/2016 Appointment: Keily Arango WPtel: [address] [place], [place] [phone] 03/02 confirmed~sl WORK IN 03/02/2016 Patient Education: [...] will need seen if worsening 02/24/2016 Appointment: zAiza Magallanes [address] [facility] ACUTE ILLNESS 02/24/2016 Patient Education: Patient Medication Summary Completed 02/24/2016 Care Plan: CHEST X-RAY 2VW FRONTAL&LATL LOINC : 68095-6 Pending 02/24/2016 Care Plan: X-RAY EXAM OF ABDOMEN LOINC : 91467-7 Pending 02/24/2016 Visit Plan: Repeat zithromax x1 week Cip rodex to right ear x1 week Add Pepcid q HS x2-4 weeks for total histamine blockade and for extra stomach protection while on zithromax 12/16/2015 Appointment: Keily Arango WPtel: [phone] [facility] US 6/9 lm~sl 6/10 lm ~sl FOLLOW UP 12/16/2015 Patient Education: Patient Medication Summary Completed 12/16/2015 Patient Education: [facility] - Saving AutoInj - Sertraline HCL - 18-64 - Dynamic Portal ID Completed 12/16/2015 Visit Plan: Saline nasal flushes prn. Ty lenol/Motrin prn headache. Notify if persists/symptoms worsens Dexamethasone given 11/12/2015 Appointment: Keily Arango WPtel: [phone] [facility] US 5/9 lm~sl 5/10 lm~sl 5/10 [...] for Belkys 10/16/2015 Appointment: Aziza Magallanes [address] [facility] ACUTE ILLNESS 10/16/2015 Patient Education: Patient Medication Summary Completed 10/16/2015 Appointment: Aziza Magallanes [address] [facility] US canceled, feeling better CANCELED 016 Visit Plan: No further abx needed [facility] restart carafate Notify if abdominal pain worsens 09/23/2015 Appointment: Keily Arango WPtel: [phone] [facility] [place] 09/19 confirmed-sp FOLLOW UP 09/23/2015 [...] done in the past. Order sent to [facility] since [facility] does not have in [...] for now. 09/20/2015 Appointment: Aziza Magallanes [address] ACUTE ILLNESS 09/20/2015 Patient Education: Patient Medication Summary Completed 09/20/2015 Visit Plan: Depo Medrol 40mg/ Kenalog 40 mg IM today Resume Ciprodex otic gtts. bid to Rt. ear 09/10/2015 Appointment: Bibiana Garg WPtel: [phone] [facility] 09/08 confirmed-sp ACUTE ILLNESS 09/10/2015 Patient Education: Patient Medication Summary Completed 09/10/2015 Visit Plan: Increase Protonix to 40mg po BID for 1month Continue carafate at q AC dosing for full month then wean off Jevity for 2 more days then advance diet if able Continue current meds 08/21/2015 Appointment: Keily Arango WPtel: [phone] [facility] NEW PATIENT 08/21/2015 Patient Education: Patient [...] arranged a family friend that is an [employer] to give Wednesday and Sundays injections - [...] done in the past. Order sent to [facility] since [facility] does not have in [...]
--- OUTSIDE RECORDS SUMMARY | 2019-11-10 19:31 | XMS REPORT | CCD ---
Author Author Belkys Arango D.O. 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 Role Phone Keily Arango D.O., PP Unavailable CCM Unavailable Summary Purpose Interface Exchange Insurance Providers Payer name Policy type / Coverage type Covered green party ID Effective Begin Date Effective End Date [employer] [facility] Medicaid [id number] U nknown Family History Family History data not found Social History Social History Element Codes Description Effective Dates Marital status Unknown Single 08/21/2015 Employment Unknown Currently unemployed Physically handicapped 08/21/[address]: 337755429 Has never smoked or chewed tobacco 08/21/[address]: 371910340 Never drinks alcohol 2015 Allergies, Adverse Reactions, Alerts Substance Reaction Codes Entered Date Inactivated Date Status * NO KNOWN FOOD ALLERGIES Unknown 08/21/2015 No Inactiv e Date Active * NO KNOWN DRUG ALLERGIES Unknown 08/21/2015 No Inactiv e Date Active _ Unknown 08/21/2015 No Inactive Date Active Problems Condition Codes Effective Dates Condition Status Allergic rhinitis, unspecified ICD-9: 477.9 ICD-10: J30.9 [...] Start Date Stop Date Status Fill Instructions Protonix 40 mg tablet,delayed release RxNorm: 850228 1 Tablet(s) Oral or per feeding tube two times a day 10/16/2019 04/12/2020 Active Zenpep 40,000 unit-126,000 unit-168,000 unit capsule,d elayed release RxNorm: 8633806 1 Capsule(s) Oral AC 10/16/2019 02/12/2020 Active Ciprodex 0.3 %-0.1 % ear drops,suspension RxNorm: 515764 SHAKE LIQUID AND INSTILL 4 DROPS IN AFFECTED EAR(S) TWICE DAILY 09/22/2019 10/15/2019 I nactive diazepam 10 mg tablet RxNorm: 971831 TAKE 1 TABLET BY M OUTH EVERY NIGHT AT BEDTIME NEEDED 09/11/2019 10/10/2019 Inactive meclizine 12.5 mg tablet RxNorm: 727281 TAKE 1 TABLET B Y MOUTH THREE TIMES DAILY NEEDED 08/31/2019 10/29/2019 Active Ciprodex 0.3 %-0.1 % ear drops,suspension RxNorm: 534315 SHAKE LIQUID AND INSTILL 4 DROPS IN AFFECTED EAR(S) TWICE DAILY 08/31/2019 09/07/2019 I nactive Ciprodex 0.3 %-0.1 % ear drops,suspension RxNorm: 510228 SHAKE LIQUID AND INSTILL 4 DROPS IN AFFECTED EAR(S) TWICE DAILY 08/11/2019 08/18/2019 I nactive meclizine 12.5 mg tablet RxNorm: 115196 TAKE 1 TABLET B Y MOUTH THREE TIMES DAILY NEEDED 08/04/2019 08/30/2019 Inactive cefdinir 250 mg/5 mL oral suspension RxNorm: 293354 12 Milliliter(s) Oral QD though PEG tube 07/25/2019 08/03/2019 Inactive Zenpep 40,000 unit-126,000 unit-168,000 unit capsule,d elayed release RxNorm: 4807384 1 Capsule(s) Oral AC 07/10/2019 10/15/2019 Inactive famotidine 20 mg tablet RxNorm: 703439 TAKE 1 TABLET BY MOUTH EVERY NIGHT AT BEDTIME 07/09/2019 01/04/2020 Active sertraline 50 mg tablet RxNorm: 074371 TAKE 1 TABLET BY MOUTH EVERY NIGHT AT BEDTIME 07/09/2019 09/06/2019 Inactive Zenpep 40,000 unit-126,000 unit-168,000 unit capsule,d elayed release RxNorm: 6237282 1 Capsule(s) Oral AC 06/12/2019 07/09/2019 Inactive Zenpep 40,000 unit-126,000 unit-168,000 unit capsule,d elayed release RxNorm: 0803486 1 Capsule(s) Oral AC 05/24/2019 10/16/2019 Inactive Zenpep 40,000 unit-126,000 unit-168,000 unit capsule,d elayed release RxNorm: 8423586 1 Capsule(s) Oral AC 05/24/2019 05/23/2019 Inactive Ciprodex 0.3 %-0.1 % ear drops,suspension RxNorm: 490161 DROP(S) 4 DROP(S) OTIC BID 05/22/2019 06/18/2019 Inactive oxcarbazepine 300 mg/5 mL (60 mg/mL) oral suspension RxNorm: 793732 15 Milliliter(s) Oral two times a day 05/08/2019 11/03/2019 Active meclizine 12.5 mg tablet RxNorm: 724971 1 TABLET(S) PO TID NEEDE D 05/05/2019 08/02/2019 Inactive change in quantity Zithromax 200 mg/5 mL oral suspension RxNorm: 339693 12.5 Dilcia liter(s) Oral QD 05/04/2019 05/09/2019 Inactive amoxicillin 400 mg/5 mL oral suspension RxNorm: 340239 10 Milliliter(s) Oral two times a day 05/03/2019 05/13/2019 Inactive Singulair 10 mg tablet RxNorm: 780241 1 TABLET(S) PO QD 03/28/2019 Inactive Macrobid 100 mg capsule RxNorm: 938276 1 Capsule(s) PO BID 03/16/2003/22/2019 Inactive meclizine 12.5 mg tablet RxNorm: 717436 1 Tablet(s) PO TID as neede d 03/10/2019 05/04/2019 Inactive change in quantity Ciprodex 0.3 %-0.1 % ear drops,suspension RxNorm: 589671 DROP(S) 4 DROP(S) OTIC BID 03/08/2019 04/04/2019 Inactive oxcarbazepine 300 mg/5 mL (60 mg/mL) oral suspension RxNorm: 834973 15 Milliliter(s) PO BID 03/07/2019 05/07/2019 Inactive Macrobid 100 mg capsule RxNorm: 136626 1 Capsule(s) PO BID 02/21/2003/01/2019 Inactive Macrobid 100 mg capsule RxNorm: 116588 1 Capsule(s) PO BID 02/21/20 19 02/19/2019 Inactive meclizine 12.5 mg tablet RxNorm: 449112 1 Tablet(s) PO TID as neede d 02/06/2019 03/07/2019 Inactive change in quantity Ciprodex 0.3 %-0.1 % ear drops,suspension RxNorm: 060156 DROP(S) 4 DROP(S) OTIC BID 01/30/2019 02/12/2019 Inactive diazepam 10 mg tablet RxNorm: 870405 1 Tablet(s) PO QHS as needed 0 01/27/2019 09/10/2019 Inactive sertraline 50 mg tablet RxNorm: 484476 1 Tablet(s) PO QHS 12/29/2018 06/26/2019 Inactive famotidine 20 mg tablet RxNorm: 791133 1 Tablet(s) PO QHS 12/29/2018 06/26/2019 Inactive Ciprodex 0.3 %-0.1 % ear drops,suspension RxNorm: 597749 DROP(S) 4 DROP(S) OTIC BID 12/14/2018 12/27/2018 Inactive Generlac 10 gram/15 mL oral solution RxNorm: 962308 15 Milliliter(s) PO TWO TO THREE TIMES DAILY 12/06/2018 06/03/2019 Inactive Protonix 40 mg tablet,delayed release RxNorm: 647156 1 Tablet(s) PO or per feeding tube BID 11/24/2018 10/15/2019 Inactive meclizine 12.5 mg tablet RxNorm: 682743 1 Tablet(s) PO TID as neede d 11/11/2018 02/06/2019 Inactive change in quantity Ciprodex 0.3 %-0.1 % ear drops,suspension RxNorm: 910250 DROP(S) 4 DROP(S) OTIC BID 11/08/2018 11/21/2018 Inactive diazepam 10 mg tablet RxNorm: 985727 1 Tablet(s) PO QHS as needed 0 10/21/2018 11/19/2018 Inactive Generlac 10 gram/15 mL oral solution RxNorm: 023267 Mil liliter(s) 15 MILLILITER(S) PO TWO TO THREE TIMES DAILY 10/07/2018 11/05/2018 Inacti ve Ciprodex 0.3 %-0.1 % ear drops,suspension RxNorm: 308354 DROP(S) DROP(S) 4 DROP(S) OTIC BID 08/26/2018 03/15/2019 Inactive meclizine 12.5 mg tablet RxNorm: 184976 1 TABLET(S) PO TID NEEDE D 07/25/2018 10/22/2018 Inactive change in quantity oxcarbazepine 300 mg/5 mL (60 mg/mL) oral suspension RxNorm: 371303 15 Milliliter(s) PO BID 07/08/2018 07/07/2018 Inactive oxcarbazepine 300 mg/5 mL (60 mg/mL) oral suspension RxNorm: 169212 15 Milliliter(s) PO BID 07/08/2018 01/03/2019 Inactive sertraline 50 mg tablet RxNorm: 788977 1 TABLET(S) PO QHS 07/06/2018 12/28/2018 Inactive Singulair 10 mg tablet RxNorm: 301610 1 TABLET(S) PO QD 06/24/2018 Inactive Ciprodex 0.3 %-0.1 % ear drops,suspension RxNorm: 294306 DROP(S) 4 DROP(S) OTIC BID 06/20/2018 06/19/2018 Inactive Ciprodex 0.3 %-0.1 % ear drops,suspension RxNorm: 854106 Drop(s) DROP(S) 4 DROP(S) OTIC BID 06/20/2018 07/03/2018 Inactive cefdinir 250 mg/5 mL oral suspension RxNorm: 975475 12 Milliliter(s) PO QD though PEG tube 06/13/2018 06/22/2018 Inactive famotidine 20 mg tablet RxNorm: 338994 1 Tablet(s) PO QHS 05/31/2018 11/26/2018 Inactive famotidine 40 mg/5 mL (8 mg/mL) oral suspension RxNorm: 3102 74 2.5 Milliliter(s) PO QHS 04/29/2018 06/12/2018 Inactive meclizine 12.5 mg tablet RxNorm: 249777 1 TABLET(S) PO TID NEEDE D 04/25/2018 07/23/2018 Inactive change in quantity Generlac 10 gram/15 mL oral solution RxNorm: 482854 Mil liliter(s) 15 MILLILITER(S) PO TWO TO THREE TIMES DAILY 04/04/2018 05/03/2018 Inacti ve Ciprodex 0.3 %-0.1 % ear drops,suspension RxNorm: 955425 Drop(s) 4 DROP(S) OTIC BID 04/04/2018 04/17/2018 Inactive diazepam 10 mg tablet RxNorm: 241707 1 Tablet(s) PO QHS as needed 1 05/03/2018 Inactive famotidine 40 mg/5 mL (8 mg/mL) oral suspension RxNorm: 3102 74 2.5 Milliliter(s) PO QHS 04/04/2018 04/28/2018 Inactive Generlac 10 gram/15 mL oral solution RxNorm: 196215 15 MILLILITER(S) PO TWO TO THREE TIMES DAILY 03/24/2018 04/03/2018 Inactive Singulair 10 mg tablet RxNorm: 735024 1 TABLET(S) PO QD 03/18/2018 Inactive Ciprodex 0.3 %-0.1 % ear drops,suspension RxNorm: 054713 Drop(s) 4 DROP(S) OTIC BID 03/08/2018 03/21/2018 Inactive Generlac 10 gram/15 mL oral solution RxNorm: 612978 15 Milliliter(s) PO two to three times daily 03/03/2018 03/23/2018 Inactive meclizine 12.5 mg tablet RxNorm: 067061 1 Tablet(s) PO TID as neede d 02/10/2018 04/10/2018 Inactive change in quantity meclizine 12.5 mg tablet RxNorm: 973822 1 Tablet(s) PO BID as neede d 02/07/2018 02/09/2018 Inactive change in quantity Ciprodex 0.3 %-0.1 % ear drops,suspension RxNorm: 429364 Drop(s) 4 DROP(S) OTIC BID 02/02/2018 03/08/2018 Inactive sertraline 50 mg tablet RxNorm: 657543 1 TABLET(S) PO QHS 01/25/2018 07/05/2018 Inactive Zithromax 200 mg/5 mL oral suspension RxNorm: 097049 12.5 Dilcia liter(s) PO QD 12/31/2017 01/04/2018 Inactive Pepcid 20 mg tablet RxNorm: 511728 TABLET(S) 1 TABLET(S) PO QHS 04/29/2018 Inactive famotidine 40 mg/5 mL (8 mg/mL) oral suspension RxNorm: 3102 74 2.5 Milliliter(s) PO QHS 12/28/2017 12/27/2017 Inactive famotidine 40 mg/5 mL (8 mg/mL) oral suspension RxNorm: 3102 74 2.5 Milliliter(s) PO QHS 12/28/2017 04/03/2018 Inactive Ciprodex 0.3 %-0.1 % ear drops,suspension RxNorm: 278911 Drop(s) 4 DROP(S) OTIC BID 12/27/2017 02/02/2018 Inactive meclizine 12.5 mg tablet RxNorm: 843206 1 Tablet(s) PO BID as neede d 12/23/2017 02/06/2018 Inactive change in quantity Protonix 40 mg tablet,delayed release RxNorm: 411545 1 Tablet(s) PO or per feeding tube BID 12/16/2017 07/13/2018 Inactive oxcarbazepine 300 mg/5 mL (60 mg/mL) oral suspension RxNorm: 296355 15 Milliliter(s) PO BID 12/16/2017 07/08/2018 Inactive meclizine 12.5 mg tablet RxNorm: 767949 1 Tablet(s) PO BID as neede d 12/15/2017 02/07/2018 Inactive change in quantity Pepcid 40 mg/5 mL (8 mg/mL) oral suspension RxNorm: 188291 5 Milliliter(s) PO QHS to replace nighttime pantoprazole dose 12/14/2017 12/27/2017 Inact марина meclizine 12.5 mg tablet RxNorm: 746914 1 Tablet(s) PO BID as neede d 12/13/2017 12/23/2017 Inactive diazepam 10 mg tablet RxNorm: 960648 1 Tablet(s) PO QHS as needed 0 12/02/2017 03/01/2018 Inactive prednisolone 15 mg/5 mL oral solution RxNorm: 267327 5 Milliliter(s) PO BID for 3 days then 5ml daily for 3 days then 2.5ml daily for 3 days 12/02/2017 12/13/2017 Inactive sertraline 50 mg tablet RxNorm: 792918 1 Tablet(s) PO QHS 11/04/2017 01/24/2018 Inactive Ciprodex 0.3 %-0.1 % ear drops,suspension RxNorm: 088782 Drop(s) 4 DROP(S) OTIC BID 10/18/2017 10/31/2017 Inactive Ciprodex 0.3 %-0.1 % ear drops,suspension RxNorm: 986949 Drop(s) 4 DROP(S) OTIC BID 10/18/2017 12/27/2017 Inactive Singulair 10 mg tablet RxNorm: 986783 1 Tablet(s) PO QD 09/30/2017 Inactive diazepam 5 mg/5 mL (1 mg/mL) oral solution RxNorm: 064788 2.5 Milliliter(s) PO QD give additional 5 mg dose if seizure occurs 09/17/2017 No Stop Date A ctive Bactrim DS 800 mg-160 mg tablet RxNorm: 186759 1 Tablet(s) PO BID 0 09/17/2017 09/23/2017 Inactive Ciprodex 0.3 %-0.1 % ear drops,suspension RxNorm: 402335 4 DROP (S) OTIC BID 09/13/2017 10/18/2017 Inactive cefdinir 250 mg/5 mL oral suspension RxNorm: 784455 12 Milliliter(s) PO QD though PEG tube 08/06/2017 08/15/2017 Inactive sertraline 50 mg tablet RxNorm: 936487 1 Tablet(s) PO QHS 08/02/2017 11/04/2017 Inactive Ciprodex 0.3 %-0.1 % ear drops,suspension RxNorm: 396572 4 DROP (S) OTIC BID 07/22/2017 08/11/2017 Inactive Singulair 10 mg tablet RxNorm: 408734 1 Tablet(s) PO QD 06/30/2017 Inactive diazepam 10 mg tablet RxNorm: 513223 TAKE 1 TABLET BY M OUTH EVERY NIGHT AT BEDTIME NEEDED 06/04/2017 07/03/2017 Inactive oxcarbazepine 300 mg/5 mL (60 mg/mL) oral suspension RxNorm: 611589 15 MILLILITER(S) PO BID 05/03/2017 12/16/2017 Inactive sertraline 50 mg tablet RxNorm: 584515 1 Tablet(s) PO QHS 05/03/2017 08/02/2017 Inactive Protonix 40 mg tablet,delayed release RxNorm: 019215 1 Tablet(s) PO or per feeding tube BID 04/26/2017 12/16/2017 Inactive Ciprodex 0.3 %-0.1 % ear drops,suspension RxNorm: 525007 4 DROP (S) OTIC BID 04/26/2017 05/23/2017 Inactive Generlac 10 gram/15 mL oral solution RxNorm: 072738 Mil liliter(s) TAKE 15 ML BY MOUTH TWO-THREE TIMES DAILY 04/08/2017 03/03/2018 Inactive Singulair 10 mg tablet RxNorm: 616671 1 Tablet(s) PO QD 03/03/2017 Inactive diazepam 10 mg tablet RxNorm: 624015 1 Tablet(s) PO QHS as needed 0 02/15/2017 06/04/2017 Inactive Singulair 10 mg tablet RxNorm: 568114 1 Tablet(s) PO QD 12/01/2016 Inactive Diflucan 150 mg tablet RxNorm: 008602 Tablet(s) Give 1 tab PO now and then repeat dose in 5 days 11/10/2016 03/31/2017 Inactive Zithromax 200 mg/5 mL oral suspension RxNorm: 870453 12.5 Dilcia liter(s) PO QD 11/10/2016 11/14/2016 Inactive Singulair 10 mg tablet RxNorm: 344615 TAKE 1 TABLET BY MOUTH ON CE DAILY 11/02/2016 12/01/2016 Inactive diazepam 10 mg tablet RxNorm: 550646 TAKE 1 TABLET BY M OUTH EVERY NIGHT AT BEDTIME NEEDED 10/21/2016 11/19/2016 Inactive sertraline 50 mg tablet RxNorm: 217798 1 Tablet(s) PO QHS 10/12/2016 01/09/2017 Inactive fluconazole 100 mg tablet RxNorm: 156893 1 Tablet(s) PO QD 09/23/19 17 09/24/2016 Inactive fluconazole 100 mg tablet RxNorm: 831534 1 Tablet(s) PO QD 09/23/19 17 09/21/2016 Inactive Bactrim DS 800 mg-160 mg tablet RxNorm: 279495 1 Tablet(s) PO BID 0 09/10/2016 09/09/2016 Inactive Bactrim DS 800 mg-160 mg tablet RxNorm: 165183 1 Tablet(s) PO BID 0 09/10/2016 09/16/2016 Inactive oxcarbazepine 300 mg/5 mL (60 mg/mL) oral suspension RxNorm: 460662 15 Milliliter(s) PO BID 09/07/2016 03/05/2017 Inactive sertraline 50 mg tablet RxNorm: 628089 1 Tablet(s) PO QHS 07/06/2016 10/03/2016 Inactive Pepcid 20 mg tablet RxNorm: 829190 Tablet(s) 1 TABLET(S) PO QHS 08/201603/08/2017 Inactive sertraline 50 mg tablet RxNorm: 404714 1 Tablet(s) PO QHS 06/08/2016 05/03/2017 Inactive Generlac 10 gram/15 mL oral solution RxNorm: 311254 Mil liliter(s) TAKE 15 ML BY MOUTH TWO-THREE TIMES DAILY 06/08/2016 09/08/2016 Inactive Pepcid 20 mg tablet RxNorm: 587438 1 TABLET(S) PO QHS 06/04/201607/2016 Inactive fluconazole 100 mg tablet RxNorm: 196220 1 Tablet(s) QD through PEG tube 05/13/2016 12/01/2017 Inactive Diflucan 150 mg tablet RxNorm: 582912 Give 1 tab PO now and then repeat dose in 5 days 03/19/2016 11/09/2016 Inactive ceftriaxone 1 gram solution for injection RxNorm: 2936920 1 Gram(s) IM QD Wednesday and Wednesday03/19/2016 11/09/2016 Inactive lidocaine 10 mg/mL (1 %) injection solution RxNorm: 9238627 Use as directed to reconstitute Rocephin when needed 03/19/2016 12/13/2017 Inactive Generlac 10 gram/15 mL oral solution RxNorm: 751221 JOE E 15 ML BY MOUTH TWO- THREE TIMES DAILY 03/19/2016 06/07/2016 Inactive oxcarbazepine 300 mg/5 mL oral suspension RxNorm: 771469 15 Milliliter(s) PO BID 03/13/2016 09/07/2016 Inactive Ciprodex 0.3 %-0.1 % ear drops,suspension RxNorm: 373604 4 DROP (S) OTIC BID 03/09/2016 03/15/2016 Inactive cefdinir 250 mg/5 mL oral suspension RxNorm: 209341 11. 75 Milliliter(s) PO QD though PEG tube 03/02/2016 03/08/2016 Inactive cefdinir 250 mg/5 mL oral suspension RxNorm: 333812 11. 75 Milliliter(s) PO QD though PEG tube 02/24/2016 03/01/2016 Inactive cefdinir 250 mg/5 mL oral suspension RxNorm: 218861 11. 75 Milliliter(s) PO QD though PEG tube 02/24/2016 02/23/2016 Inactive Ciprodex 0.3 %-0.1 % ear drops,suspension RxNorm: 578964 4 Drop (s) OTIC BID 02/24/2016 03/01/2016 Inactive Generlac 10 gram/15 mL oral solution RxNorm: 186521 JOE E 15 ML BY MOUTH TWICE DAILY 02/17/2016 03/18/2016 Inactive Generlac 10 gram/15 mL oral solution RxNorm: 328804 15 Millilit er(s) PO BID 01/23/2016 02/16/2016 Inactive Pepcid 20 mg tablet RxNorm: 880216 1 TABLET(S) PO QHS 01/13/201605/07 Inactive Ciprodex 0.3 %-0.1 % ear drops,suspension RxNorm: 521640 4 Drop (s) OTIC BID 12/23/2015 12/29/2015 Inactive sertraline 50 mg tablet RxNorm: 664636 1 Tablet(s) PO QHS 12/16/2015 06/07/2016 Inactive Zithromax 500 mg tablet RxNorm: 998520 1 Tablet(s) PO QD 12/16/2015 0 12/22/2015 Inactive Pepcid 20 mg tablet RxNorm: 775416 1 Tablet(s) PO QHS 12/16/201501/02 Inactive Zithromax 500 mg tablet RxNorm: 471645 1 Tablet(s) PO QD 11/12/2015 0 11/18/2015 Inactive Singulair 10 mg tablet RxNorm: 043861 1 Tablet(s) PO BID 10/16/2015 0 11/11/2015 Inactive diazepam 10 mg tablet RxNorm: 467419 1 Tablet(s) PO QHS 10/07/2015 Inactive diazepam 10 mg tablet RxNorm: 067411 1 Tablet(s) PO QHS 10/07/2015 Inactive fexofenadine 30 mg/5 mL oral suspension RxNorm: 245611 10 Milliliter(s) PO one to two times daily PRN allergies 09/20/2015 12/15/2015 Inactive ceftriaxone 1 gram solution for injection RxNorm: 5124116 1 Gram (s) IM QD 09/20/2015 09/21/2015 Inactive Ciprodex 0.3 %-0.1 % ear drops,suspension RxNorm: 995156 4 Drop (s) OTIC BID 09/20/2015 10/03/2015 Inactive Protonix 40 mg tablet,delayed release RxNorm: 621444 1 Tablet(s) PO or per feeding tube BID 08/21/2015 12/18/2015 Inactive Carafate 100 mg/mL oral suspension RxNorm: 022498 10 Mi lliliter(s) Miscellaneous per feeding tube AC & HS 08/21/2015 09/19/2015 Inactive Zyrtec 10 mg tablet RxNorm: 8817437 1 Tablet(s) PO QD No Start Date Active diazepam 20 mg rectal kit RxNorm: 646812 RTL as needed No Start Date Active Lortab Elixir 10 mg-300 mg/15 mL oral solution RxNorm: 38030 45 8 PO Q6-8H as needed No Start Date Active ondansetron HCl 4 mg/5 mL oral solution RxNorm: 923868 10 Milliliter(s) PO as needed and through tube No Start Date Active sertraline 50 mg tablet RxNorm: 156054 1 Tablet(s) PO QD No Start D ate 12/15/2015 Inactive Brittany 180 mg tablet RxNorm: 242604 1 Tablet(s) PO QD No Start Date 06/12/2018 Inactive Generlac 10 gram/15 mL oral solution RxNorm: 403176 15 Millilit er(s) PO BID No Start Date 01/22/2016 Inactive oxcarbazepine 300 mg/5 mL oral suspension RxNorm: 026114 13.5 Milliliter(s) PO QAM and 15ml in the evening No Start Date 12/15/2015 Inactive Singulair 10 mg tablet RxNorm: 237516 1 Tablet(s) PO QD No Start Da te 11/30/2016 Inactive meclizine 12.5 mg tablet RxNorm: 577383 1 Tablet(s) PO TID as needed for dizziness No Start Date 09/13/2017 Inactive meclizine 12.5 mg tablet RxNorm: 948480 1 Tablet(s) PO BID No Start Date 12/12/2017 Inactive fluconazole 100 mg tablet RxNorm: 176260 1 Tablet(s) QD through PEG tube No Start Date 05/12/2016 Inactive Flomax 0.4 mg capsule RxNorm: 504493 1 Capsule(s) PO QD No Start Da te 06/12/2018 Inactive diazepam 10 mg tablet RxNorm: 501594 1 Tablet(s) PO QHS as needed N o Start Date 02/14/2017 Inactive Generlac 10 gram/15 mL oral solution RxNorm: 377756 15 Milliliter(s) PO two to three times daily No Start Date 03/02/2018 Inactive oxcarbazepine 300 mg/5 mL oral suspension RxNorm: 278042 15 Milliliter(s) PO BID No Start Date 12/15/2017 Inactive Medication Administered No Medication Administered data Immunizations Vaccine Codes Date Status Influenza CVX: 141 04/21/2019 Results No Results data Procedures Procedure Codes Date DEXAMETHASONE SODIUM PHOS CPT-4: J1100 10/06/2019 THER/PROPH/DIAG INJ SC/IM CPT-4: 12447 10/06/2019 DEXAMETHASONE SODIUM PHOS CPT-4: J1100 05/03/2019 THER/PROPH/DIAG INJ SC/IM CPT-4: 94027 05/03/2019 CEFTRIAXONE SODIUM INJECTION CPT-4: J0696 03/19/2016 THER/PROPH/DIAG INJ SC/IM CPT-4: 72148 03/19/2016 DEXAMETHASONE SODIUM PHOS CPT-4: J1100 11/12/2015 THER/PROPH/DIAG INJ SC/IM CPT-4: 64237 11/12/2015 CEFTRIAXONE SODIUM INJECTION CPT-4: J0696 09/20/2015 THER/PROPH/DIAG INJ SC/IM CPT-4: 82594 09/20/2015 THER/PROPH/DIAG INJ SC/IM CPT-4: 45866 09/10/2015 METHYLPREDNISOLONE 40 MG INJ CPT-4: J1030 09/10/2015 TRIAMCINOLONE ACET INJ NOS CPT-4: J3301 09/10/2015 Vital Signs Date Vital 07/25/2019 Blood Pressure 1: 116/80 Code: 8480-6 BMI: 23.2 Code: 56110-5 Heart Rate 1: 81 bpm Height: 4'5" Respiratory Rate: 16 bpm SpO2: 100% Tempera ture: 36.8 (C) / 98.2 (F) Weight: 92 lbs 06/12/2019 Blood Pressure 1: 112/74 Code: 8480-6 BMI: 23.2 Code: 17154-4 Heart Rate 1: 102 bpm Height: 4'5" [...] 1: 114/70 Code: 8480-6 BMI: 23.1 Code: 56068-9 Heart Rate 1: 80 bpm Height: 4'6" Respiratory Rate: 20 bpm Temperature: 36 .5 (C) / 97.7 (F) Weight: 96 lbs Functional Status No Functional Status data Reason For Visit Reason For Visit Effective Dates Notes nasal allergies 10/05/2019 postnasal drip 07/25/2019 well [...] visit Encounters Encounter Performer Location Codes Date ([id number]) NURSE/OUTPATIENT VISIT EST Diagnosis: Allergic rhinitis, unspecified[ICD10: J30.9] Keily LINARES [facility] [employer] CPT-4: 47787 10/06/2019 ([id number]) OFFICE/OUTPATIENT VISIT EST Diagnosis: Allergic rhinitis[ICD10: J30.9] Fatou Onofre [facility] CPT-4: 06709 10/05/2019 ([id number]) OFFICE/OUTPATIENT VISIT EST Diagnosis: Sinusitis[ICD10: J32.9] Fatou RIOSLINE [facility] ANNA [facility] [employer] CPT-4: 66995 07/25/2019 ([id number]) PREV VISIT EST AGE 18-39 Diagnosis: Encounter for general adult medical examination with abnormal findings[ICD10: Z00.01] Diagnosis: Chronic pancreatitis[ICD10: K86.1] Diagnosis: Cerebral palsy, unspecified[ICD10: G80.9] Keily LINARES [facility] [employer] CPT-4: 87533 06/12/2019 ([id number]) OFFICE/OUTPATIENT VISIT EST Diagnosis: Pneumonia, organism unspecified[ICD10: J18.9] Diagnosis: Breast mass, right[ICD10: N63.10] Keily Vallejo [facility] [employer] CPT-4: 65509 05/08/2019 ([id number]) OFFICE/OUTPATIENT VISIT EST Diagnosis: Allergic rhinitis due to pollen[ICD10: J30.1] Diagnosis: Otitis media, unspecified, right ear[ICD10: H66.91] Fatou RIOSLINE [facility] [employer] CPT-4: 27489 05/03/2019 ([id number]) OFFICE/OUTPATIENT VISIT EST Diagnosis: Irritability and anger[ICD10: R45.4] Nataliia MCHUGH [facility] CPT-4: 88164 11/25/2018 ([id number]) OFFICE/OUTPATIENT VISIT EST Diagnosis: Acute suppurative otitis media without spontaneous rupture of ear drum, bilateral[ICD10: H66.003] Fatou ARANGO DO [facility] CPT-4: 90438 06/13/2018 ([id number]) OFFICE/OUTPATIENT VISIT EST Diagnosis: Other fatigue[ICD10: R53.83] Diagnosis: Anuria and oliguria[ICD10: R34] Diagnosis: Acute gastritis without bleeding[ICD10: K29.00] Fatou ARANGO DO [facility] CPT-4: 88911 01/04/2018 ([id number]) OFFICE/OUTPATIENT VISIT EST Diagnosis: Acute bronchitis, unspecified[ICD10: J20.9] Fatou ARANGO DO [facility] CPT-4: 71111 12/31/2017 ([id number]) PREV VISIT EST AGE 18-39 Diagnosis: Encounter for general adult medical examination without abnormal findings[ICD10: Z00.00] Diagnosis: Severe intellectual disabilities[ICD10: F72] Diagnosis: Allergic rhinitis due to pollen[ICD10: J30.1] Diagnosis: Epilepsy, unspecified, intractable, without status epilepticus[ICD10: G40.919] Diagnosis: Gastro-esophageal reflux disease without esophagitis[ICD10: K21.9] Keily ARANGO [employer] [employer] CPT-4: 92504 12/14/2017 ([id number]) OFFICE/OUTPATIENT VISIT EST Diagnosis: Allergic rhinitis due to pollen[ICD10: J30.1] Diagnosis: Epilepsy, unspecified, intractable, without status epilepticus[ICD10: G40.919] Keily ARANGO [facility] CPT-4: 18242 12/02/2017 ([id number]) OFFICE/OUTPATIENT VISIT EST Diagnosis: Other allergic rhinitis[ICD10: J30.89] Fatou ARANGO [facility] CPT-4: 71786 10/12/2017 OFFICE/OUTPATIENT VISIT EST Diagnosis: Acute suppurative otitis media without spontaneous rupture of ear drum, recurrent, left ear[ICD10: H66.005] Diagnosis: Epilepsy, unspecified, intractable, without status epilepticus[ICD10: G40.919] Diagnosis: Hesitancy of micturition[ICD10: R39.11] Fatou Bobby [facility] CPT-4: 33056 09/17/2017 OFFICE/OUTPATIENT VISIT EST Diagnosis: Otitis media, unspecified, left ear[ICD10: H66.92] Fatou Bobby [facility] CPT-4: 39028 08/06/2017 ([id number]) OFFICE/OUTPATIENT VISIT EST Diagnosis: Vertigo of central origin, 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.49] Diagnosis: Dizziness and giddiness[ICD10: R42] Keily NARANJO 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)[ICD10: K56.5] Diagnosis: Personal history of urinary calculi[ICD10: Z87.442] Emely Hdz KEILY Diamante [facility] [facility]ALTH CPT-4: 28729 03/01/2017 ([id number]) OFFICE/OUTPATIENT VISIT EST Diagnosis: Allergic rhinitis due to pollen[ICD10: J30.1] Diagnosis: Acute and subacute allergic otitis media (mucoid) (sanguinous) (serous), left ear[ICD10: H65.112] [facility] 22619 11/10/2016 ([id number]) OFFICE/OUTPATIENT VISIT EST Diagnosis: 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] Diagnosis: Unspecified ovarian cyst, right side[ICD10: N83.201] Diagnosis: Cyst of kidney, 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] Keily CERON Alicia [facility] CPT-4: 90676 08/13/2016 ([id number]) OFFICE/OUTPATIENT VISIT EST Diagnosis: Rash and other nonspecific skin eruption[ICD10: R21] Aziza LINARES Alicia [facility] CPT-4: 02232 03/27/2016 ([id number]) OFFICE/OUTPATIENT VISIT EST Diagnosis: Urinary tract infection, site not specified[ICD10: N39.0] Keily ARANGO [employer] [facility] CPT-4: 51783 03/23/2016 ([id number]) OFFICE/OUTPATIENT VISIT EST Diagnosis: Retention of urine, unspecified[ICD10: R33.9] Diagnosis: Dysuria[ICD10: R30.0] Diagnosis: Constipation, unspecified[ICD10: K59.00] Aziza Magallanes SIOMARA ELIZABETHOSMANY ARANGO [employer] [facility] CPT-4: 16103 03/19/2016 ([id number]) OFFICE/OUTPATIENT VISIT EST Diagnosis: Acute sinusitis, unspecified[ICD10: J01.90] Keily ARANGO 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] Aziza ARANGO [employer] [facility] CPT-4: 72018 02/24/2016 ([id number]) OFFICE/OUTPATIENT VISIT EST Diagnosis: Chronic mucoid otitis media, right ear[ICD10: H65.31] Diagnosis: Allergic rhinitis, unspecified[ICD10: J30.9] Diagnosis: 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] Keily ARANGO [employer] [facility] CPT-4: 58880 12/16/2015 ([id number]) OFFICE/OUTPATIENT VISIT EST Diagnosis: Allergic rhinitis, unspecified[ICD10: J30.9] Diagnosis: Acute recurrent sinusitis, unspecified[ICD10: J01.91] Keily ARANGO [employer] [facility] CPT-4: 35180 11/12/2015 ([id number]) OFFICE/OUTPATIENT VISIT EST Diagnosis: Other seasonal allergic rhinitis[ICD10: J30.2] Diagnosis: Nausea with vomiting, unspecified[ICD10: R11.2] Diagnosis: Epigastric pain[ICD10: R10.13] Aziza ARANGO DO [facility] CPT-4: 71788 10/16/2015 OFFICE/OUTPATIENT VISIT EST Diagnosis: Encounter for follow-up examination after completed treatment for conditions other than malignant neoplasm[ICD10: Z09] Diagnosis: Generalized abdominal pain[ICD10: R10.84] Keily Conchita ARANGO DO [facility] CPT-4: 37847 09/23/2015 ([id number]) OFFICE/OUTPATIENT VISIT EST Diagnosis: Otitis media, unspecified, right ear[ICD10: H66.91] Diagnosis: Constipation, unspecified[ICD10: K59.00] Diagnosis: Allergic rhinitis, unspecified[ICD10: J30.9] Aziza ARANGO DO [facility] CPT-4: 97619 09/20/2015 OFFICE/OUTPATIENT VISIT EST Diagnosis: Allergic rhinitis, unspecified[ICD10: J30.9] Diagnosis: Unspecified perforation of tympanic membrane, right ear[ICD10: H72.91] Bibiana ARANGO DO [facility] CPT-4: 31345 09/10/2015 OFFICE/OUTPATIENT VISIT NEW Diagnosis: Epilepsy, unspecified, intractable, without status epilepticus[ICD10: G40.919] Diagnosis: Gastric ulcer, unspecified as acute or chronic, without hemorrhage or perforation[ICD10: K25.9] Diagnosis: Severe intellectual disabilities[ICD10: F72] Keily Pepejamesdominique RIOSKEILY ThorAlicia CONCHITA HURLEY [facility] CPT-4: 95932 08/21/2015 Plan of Care Planned Activity Notes Codes Status Date Appointment: Conchita Keily Bobby WPtel: [phone] [facility] [place] INJECTION 10/06/2019 Visit Diagnosis Plan: Allergic [...] : J30.9 10/05/2019 Appointment: [facility]ou [facility]ofre [facility] [facility]LE[facility]ICINE 10/05/2019 Visit Diagnosis Plan: Sinusitis Discussion: due to [facility] of illness and symptoms, cefdinir prescribed to take as directed. call office with any new or worsening symptoms. ICD-9 : 473.9 ICD-10 : J32.9 07/25/2019 Appointment: Fatou Onofre [address] [facility] ACUTE ILLNESS 07/25/2019 Patient Education: cefdinir- [employer] Coupon [id number] https://www.[employer].Hot Hotels/sampleClustrix/resources/getResource/61/[email or web address]-[email or web address] Completed 07/25/2019 Visit Diagnosis Plan: Chronic pancreatitis Discussion: Continue zenpep and recheck CMP with amylase/lipase in 1 month ICD-9 : 577.1 ICD-10 : K86.1 06/12/2019 Appointment: Keily Arango WPtel: [facility] Annual Well Visit 06/12/2019 Visit Diagnosis [...] : J18.9 05/08/2019 Appointment: Keily Arango WPtel: [facility] Hospital Follow Up 05/08/2019 Visit Diagnosis [...] ICD-10 : J30.1 05/03/2019 Appointment: Fatou Onofre [address] [place] [address] ACUTE ILLNESS 05/03/2019 Patient Education: amoxicillin- [employer] Coupon [phone] https://www.[employer] Hotels/[employer]/resources/getResource/61/[email or web address] Completed 05/03/2019 Visit Diagnosis Plan: Irritability and [...] ICD-10 : R45.4 11/25/2018 Appointment: Nataliia Hsieh [address] [place] [address] ACUTE ILLNESS 11/25/2018 Visit Diagnosis Plan: Acute suppurative otitis media without spontaneous rupture of ear drum, bilateral Discussion: cefdinir for 10 days. if wor sening symptoms later this week, call clinic. push fluids and tylenol/ibuprofen prn pain or fever. ICD-9 : 382.00 ICD-10 : H66.003 06/13/2018 Appointment: Fatou Onofre [address] [place], [place] [id number] ACUTE ILLNESS 06/13/2018 Visit Diagnosis Plan: Anuria [...] : R53.83 01/04/2018 Appointment: Fatou Onofre [address] [place], [place] [id number] ACUTE ILLNESS 01/04/2018 Patient Education: Patient Medication Summary Completed 01/04/2018 Visit Diagnosis Plan: Acute bronchitis, unspecified Di scussion: zithromax prescribed to take as directed. continue with allergy meds including flonase to help dry congestion. call office next week if new or worsening symptoms. ICD-9 : 466.0 ICD-10 : J20.9 12/31/2017 Appointment: Fatou Oonfre [address] [place] [address] ACUTE ILLNESS 12/31/2017 Patient Education: Patient Medication Summary Completed 12/31/2017 Visit Diagnosis Plan: Epilepsy, unspecif ied, intractable, without status epilepticus Discussion: Stable on current regimen ICD-9 : 345.91 ICD-10 : G40.919 12/14/2017 Visit Diagnosis Plan: Encounter for [facility] medical examination without abnormal findings Discussion: Had recent lab done Follow Up: 3 months ICD-9 : V70.9 ICD-10 : Z00.00 12/14/2017 Visit Diagnosis Plan: Allergic rhinitis due to pollen Discussion: Continue current meds Change night time protonix to pepcid for total histamine blockade ICD-9 : 477.9 ICD-10 : J30.1 12/14/2017 Appointment: Keily Arango WPtel: [facility]8 [facility] CHECK UP 12/14/2017 Patient Education: Patient Medication [...] J30.1 12/02/2017 Appointment: Keily Arango WPtel: [phone] [id number] ACUTE ILLNESS 12/02/2017 Patient Education: Patient Medication Summary Completed 12/02/2017 Visit Diagnosis Plan: Other allergic rhinitis Discussi on: symptoms most likely caused from allergies. patient sent to hospital for decadron injection. instructed to restart patient's flonase at home. if new or worsening symptoms, call or rtc. ICD-9 : 477.8 ICD-10 : J30.89 10/12/2017 Appointment: Fatou Onofre [address] [place] [address] ACUTE ILLNESS 10/12/2017 Patient Education: Patient Medication [...] ICD-10 : G40.919 09/17/2017 Appointment: Fatou Onofre [place] [id number] ACUTE ILLNESS 09/17/2017 Patient Education: Patient Medication Summary Completed 09/17/2017 Visit Diagnosis Plan: Otitis media, unspecified, left ear Discussion: cefdinir prescribed daily for 10 days. instructed to administer tylenol/ibuprofen for pain or fever. if no improvement, or worsening symptoms, call or rtc. ICD-9 : 380.14 ICD-10 : H66.92 08/06/2017 Appointment: Fatou Onofre [address] [place] [address] ACUTE ILLNESS 08/06/2017 Patient Education: Patient Medication Summary Completed 08/06/2017 Patient Education: Patient Medication Summary Completed 08/02/2017 Patient Education: Patient Medication Summary Completed 04/21/2017 Care Plan: MRI BRAIN STEM W/O DYE LOINC : 61067-8 Pending 04/21/2017 Patient Education: Patient Medication Summary Completed 04/20/2017 Care Plan: MRI BRAIN STEM W/O DYE LOINC : 03515-4 Pending 04/20/2017 Visit Diagnosis Plan: Vertigo of central origin, unspe cified ear Discussion: Continue meclizine at 12.5mg po BID for 2 more weeks then go to 12.5mg daily for 2 weeks then 6.25mg daily for 2 weeks then stop Notify if any symptoms return with weaning process ICD-9 : 386.2 ICD-10 : H81.49 04/01/2017 Appointment: Keily Arango WPtel: [phone] FOLLOW UP 04/01/2017 Patient Education: Patient Medication Summary Completed 04/01/2017 Patient Education: Patient Medication Summary Completed 03/09/2017 Care Plan: CT HEAD/BRAIN W/O DYE LOINC : 65766-1 Pending 03/09/2017 Visit Plan: It's difficult to [...] indicated. 03/01/2017 Appointment: Emely Hdz WPtel: [phone] ACUTE ILLNESS 03/01/2017 Patient Education: Patient Medication Summary Completed 03/01/2017 Patient Education: Patient Medication Summary Completed 12/17/2016 Visit Diagnosis Plan: Allergic rhinitis due to pollen Discussion: Continue zyrtec/singulair ICD-9 : 477.9 ICD-10 : J30.1 11/10/2016 Visit Diagnosis Plan: Acute and subacute allergic otitis media (mucoid) (sanguinous) (serous), left ear Discussion: Zithromax ICD-9 : 381.05 ICD-10 : H65.112 11/10/2016 Appointment: Keily Arango WPtel: [address] [place] [address] ACUTE ILLNESS 11/10/2016 Patient Education: Patient Medication Summary Completed 11/10/2016 Patient Education: Patient Medication Summary Completed 09/07/2016 Care Plan: URINALYSIS AUTO W/[place] : 79480-1 Pending 09/07/2016 Visit Diagnosis Plan: Unspecified ovarian [...] : N20.0 08/13/2016 Appointment: Keily Arango WPtel: [address] [place], [place] [id number] 08/12 confirmed-sp FOLLOW UP 08/13/2016 Patient Education: Patient Medication Summary Completed 08/13/2016 Patient Education: Patient Medication Summary Completed 05/19/2016 Care Plan: X-RAY EXAM OF FOOT left foot LOINC : 26 095-0 Pending 05/19/2016 Visit Plan: Discussed with Dr Conchita MAGANA C to be drawn Order sent to Will call with results 03/27/2016 Appointment: Aziza Magallanes [address] [place], [place] [id number] ACUTE ILLNESS 03/27/2016 Patient Education: Patient Medication Summary Completed 03/27/2016 Visit Plan: Go for dose of rocephin 1gm IM today and tomorrow then done Diflucan 150mg x1 today Discussed with mom via phone about urology fwup--she will talk with her and let us know 03/23/2016 Appointment: Keily Arango WPtel: [phone] [facility] 03/23 confirmed ~sl FOLLOW UP 03/23/2016 Patient Education: Patient Medication Summary Completed 03/23/2016 Visit Plan: Per Dr Arango, straight cat h for UA and culture today Ok to have a standing order for further UA needs at for straight cath Rocephin IM today and daily through Wednesday Mom has arranged a family friend that is an [employer] to give Wednesday and Sundays injections - [...] us know 03/19/2016 Appointment: Aziza Magallanes [address] [place], [place] [address] ACUTE ILLNESS 03/19/2016 Patient Education: Patient Medication Summary Completed 03/19/2016 Visit Plan: 1 more week of cefdinir 03/02/2016 Appointment: Keily Arango WPtel: [phone] [facility] 03/02 confirmed~sl WORK IN 03/02/2016 Patient Education: [...] seen if worsening 02/24/2016 Appointment: Aziza Magallanes [address] [place], [place] [id number] ACUTE ILLNESS 02/24/2016 Patient Education: Patient Medication Summary Completed 02/24/2016 Care Plan: CHEST X-RAY 2VW FRONTAL&LATL LOINC : 53861-7 Pending 02/24/2016 Care Plan: X-RAY EXAM OF ABDOMEN LOINC : 43075-1 Pending 02/24/2016 Visit Plan: Repeat zithromax x1 week Cip rodex to right ear x1 week Add Pepcid q HS x2-4 weeks for total histamine blockade and for extra stomach protection while on zithromax 12/16/2015 Appointment: Keily Arango WPtel: [address] [place] [address] [place] 6/9 lm~sl 6/10 lm ~sl FOLLOW UP 12/16/2015 Patient Education: Patient Medication Summary Completed 12/16/2015 Patient Education: [facility] - Saving [employer] - Sertraline HCL - 18-64 - Dynamic Portal ID Completed 12/16/2015 Visit Plan: Saline nasal flushes prn. Ty lenol/Motrin prn headache. Notify if persists/symptoms worsens Dexamethasone given 11/12/2015 Appointment: Keily Arango WPtel: [address] [place], [place] [phone] [place] 5/9 lm~sl 5/10 lm~sl 5/10 confirm-sp [...] visits for Belkys 10/16/2015 Appointment: Aziza Magallanes [address] [place], [place] [phone] ACUTE ILLNESS 10/16/2015 Patient Education: Patient Medication Summary Completed 10/16/2015 Appointment: [facility] [facility] canceled, feeling better CANCELED 016 Visit Plan: No further abx needed Go mariela k to jevity for next 3 days and restart carafate Notify if abdominal pain worsens 09/23/2015 Appointment: Keily Arango WPtel: [phone] [facility] 09/19 confirmed-sp FOLLOW UP 09/23/2015 Patient Education: [...] done in the past. Order sent to [facility] since [facility] does not have in stock. Recheck in [...] try for now. 09/20/2015 Appointment: [facility] [address] [facility] [facility] 09/20/2015 Patient Education: Patient Medication Summary Completed 09/20/2015 Visit Plan: Depo Medrol 40mg/ Kenalog 40 mg IM today Resume Ciprodex otic gtts. bid to Rt. ear 09/10/2015 Appointment: Bibiana Garg [facility]Ptel[phone] [facility] 09/08 confirmed-sp ACUTE ILLNESS 09/10/2015 Patient Education: Patient Medication Summary Completed 09/10/2015 Visit Plan: Increase Protonix to 40mg po BID for 1month Continue carafate at q AC dosing for full month then wean off Jevity for 2 more days then advance diet if able Continue current meds 08/21/2015 Appointment: Keily Arango WPtel: [phone] [place] [place] NEW PATIENT 08/21/2015 Patient Education: Patient [...] CBC to be drawn Order sent to [facility] Will call with results . Go for [...] arranged a family friend that is an [employer] to give Wednesday and Sundays injections - [...] done in the past. Order sent to [facility] since [facility] does not have in stock. Recheck in [...]
--- OUTSIDE RECORDS SUMMARY | 2019-11-10 19:31 | XMS REPORT | CCD ---
Author Author Belkys Arango D.O. Organization [facility] ARANGO [facility] Address [address] [place] [address] Phone Care Team Providers Care Senior Support Engineer Name Role Phone Keily Arango D.O., PP Unavailable CCM Unavailable Summary Purpose Interface Exchange Insurance Providers Payer name Policy type / Coverage type Covered democrat ID Effective Begin Date Effective End Date [employer] [facility] Medicaid [id number] U nknown Family History Family History data not found Social History Social History Element Codes Description Effective Dates Marital status Unknown Single 08/21/2015 Employment Unknown Currently unemployed Physically handicapped 08/21/[address]: 709325489 Has never smoked or chewed tobacco 08/21/[address]: 145888976 Never drinks alcohol 2015 Allergies, Adverse Reactions, [...] Start Date Stop Date Status Fill Instructions Zenpep 40,000 unit-126,000 unit-168,000 unit capsule,d elayed release RxNorm: 9867814 1 Capsule(s) Oral AC 10/16/2019 02/12/2020 Active Ciprodex 0.3 %-0.1 % ear drops,suspension RxNorm: 116849 SHAKE LIQUID AND INSTILL 4 DROPS IN AFFECTED EAR(S) TWICE DAILY 09/22/2019 10/15/2019 I nactive diazepam 10 mg tablet RxNorm: 712760 TAKE 1 TABLET BY M OUTH EVERY NIGHT AT BEDTIME NEEDED 09/11/2019 10/10/2019 Inactive meclizine 12.5 mg tablet RxNorm: 606293 TAKE 1 TABLET B Y MOUTH THREE TIMES DAILY NEEDED 08/31/2019 10/29/2019 Active Ciprodex 0.3 %-0.1 % ear drops,suspension RxNorm: 346217 SHAKE LIQUID AND INSTILL 4 DROPS IN AFFECTED EAR(S) TWICE DAILY 08/31/2019 09/07/2019 I nactive Ciprodex 0.3 %-0.1 % ear drops,suspension RxNorm: 961473 SHAKE LIQUID AND INSTILL 4 DROPS IN AFFECTED EAR(S) TWICE DAILY 08/11/2019 08/18/2019 I nactive meclizine 12.5 mg tablet RxNorm: 061455 TAKE 1 TABLET B Y MOUTH THREE TIMES DAILY NEEDED 08/04/2019 08/30/2019 Inactive cefdinir 250 mg/5 mL oral suspension RxNorm: 712143 12 Milliliter(s) Oral QD though PEG tube 07/25/2019 08/03/2019 Inactive Zenpep 40,000 unit-126,000 unit-168,000 unit capsule,d elayed release RxNorm: 1657061 1 Capsule(s) Oral AC 07/10/2019 10/15/2019 Inactive famotidine 20 mg tablet RxNorm: 522554 TAKE 1 TABLET BY MOUTH EVERY NIGHT AT BEDTIME 07/09/2019 01/04/2020 Active sertraline 50 mg tablet RxNorm: 394448 TAKE 1 TABLET BY MOUTH EVERY NIGHT AT BEDTIME 07/09/2019 09/06/2019 Inactive Zenpep 40,000 unit-126,000 unit-168,000 unit capsule,d elayed release RxNorm: 1176089 1 Capsule(s) Oral AC 06/12/2019 07/09/2019 Inactive Zenpep 40,000 unit-126,000 unit-168,000 unit capsule,d elayed release RxNorm: 5258338 1 Capsule(s) Oral AC 05/24/2019 10/16/2019 Inactive Zenpep 40,000 unit-126,000 unit-168,000 unit capsule,d elayed release RxNorm: 3676649 1 Capsule(s) Oral AC 05/24/2019 05/23/2019 Inactive Ciprodex 0.3 %-0.1 % ear drops,suspension RxNorm: 063441 DROP(S) 4 DROP(S) OTIC BID 05/22/2019 06/18/2019 Inactive oxcarbazepine 300 mg/5 mL (60 mg/mL) oral suspension RxNorm: 313693 15 Milliliter(s) Oral two times a day 05/08/2019 11/03/2019 Active meclizine 12.5 mg tablet RxNorm: 135547 1 TABLET(S) PO TID NEEDE D 05/05/2019 08/02/2019 Inactive change in quantity Zithromax 200 mg/5 mL oral suspension RxNorm: 216814 12.5 Dilcia liter(s) Oral QD 05/04/2019 05/09/2019 Inactive amoxicillin 400 mg/5 mL oral suspension RxNorm: 408569 10 Milliliter(s) Oral two times a day 05/03/2019 05/13/2019 Inactive Singulair 10 mg tablet RxNorm: 349330 1 TABLET(S) PO QD 03/28/2019 Inactive Macrobid 100 mg capsule RxNorm: 689663 1 Capsule(s) PO BID 03/16/2003/22/2019 Inactive meclizine 12.5 mg tablet RxNorm: 626842 1 Tablet(s) PO TID as neede d 03/10/2019 05/04/2019 Inactive change in quantity Ciprodex 0.3 %-0.1 % ear drops,suspension RxNorm: 486515 DROP(S) 4 DROP(S) OTIC BID 03/08/2019 04/04/2019 Inactive oxcarbazepine 300 mg/5 mL (60 mg/mL) oral suspension RxNorm: 850586 15 Milliliter(s) PO BID 03/07/2019 05/07/2019 Inactive Macrobid 100 mg capsule RxNorm: 160257 1 Capsule(s) PO BID 02/21/2003/01/2019 Inactive Macrobid 100 mg capsule RxNorm: 888468 1 Capsule(s) PO BID 02/21/2002/19/2019 Inactive meclizine 12.5 mg tablet RxNorm: 513836 1 Tablet(s) PO TID as neede d 02/06/2019 03/07/2019 Inactive change in quantity Ciprodex 0.3 %-0.1 % ear drops,suspension RxNorm: 079486 DROP(S) 4 DROP(S) OTIC BID 01/30/2019 02/12/2019 Inactive diazepam 10 mg tablet RxNorm: 185099 1 Tablet(s) PO QHS as needed 0 01/27/2019 09/10/2019 Inactive sertraline 50 mg tablet RxNorm: 415948 1 Tablet(s) PO QHS 12/29/2018 06/26/2019 Inactive famotidine 20 mg tablet RxNorm: 265693 1 Tablet(s) PO QHS 12/29/2018 06/26/2019 Inactive Ciprodex 0.3 %-0.1 % ear drops,suspension RxNorm: 119501 DROP(S) 4 DROP(S) OTIC BID 12/14/2018 12/27/2018 Inactive Generlac 10 gram/15 mL oral solution RxNorm: 444445 15 Milliliter(s) PO TWO TO THREE TIMES DAILY 12/06/2018 06/03/2019 Inactive Protonix 40 mg tablet,delayed release RxNorm: 097924 1 Tablet(s) PO or per feeding tube BID 11/24/2018 05/22/2019 Inactive meclizine 12.5 mg tablet RxNorm: 435907 1 Tablet(s) PO TID as neede d 11/11/2018 02/06/2019 Inactive change in quantity Ciprodex 0.3 %-0.1 % ear drops,suspension RxNorm: 010035 DROP(S) 4 DROP(S) OTIC BID 11/08/2018 11/21/2018 Inactive diazepam 10 mg tablet RxNorm: 199642 1 Tablet(s) PO QHS as needed 0 10/21/2018 11/19/2018 Inactive Generlac 10 gram/15 mL oral solution RxNorm: 464112 Mil liliter(s) 15 MILLILITER(S) PO TWO TO THREE TIMES DAILY 10/07/2018 11/05/2018 Inacti ve Ciprodex 0.3 %-0.1 % ear drops,suspension RxNorm: 866131 DROP(S) DROP(S) 4 DROP(S) OTIC BID 08/26/2018 03/15/2019 Inactive meclizine 12.5 mg tablet RxNorm: 246912 1 TABLET(S) PO TID NEEDE D 07/25/2018 10/22/2018 Inactive change in quantity oxcarbazepine 300 mg/5 mL (60 mg/mL) oral suspension RxNorm: 339166 15 Milliliter(s) PO BID 07/08/2018 07/07/2018 Inactive oxcarbazepine 300 mg/5 mL (60 mg/mL) oral suspension RxNorm: 363354 15 Milliliter(s) PO BID 07/08/2018 01/03/2019 Inactive sertraline 50 mg tablet RxNorm: 628860 1 TABLET(S) PO QHS 07/06/2018 12/28/2018 Inactive Singulair 10 mg tablet RxNorm: 659880 1 TABLET(S) PO QD 06/24/2018 Inactive Ciprodex 0.3 %-0.1 % ear drops,suspension RxNorm: 150934 DROP(S) 4 DROP(S) OTIC BID 06/20/2018 06/19/2018 Inactive Ciprodex 0.3 %-0.1 % ear drops,suspension RxNorm: 565861 Drop(s) DROP(S) 4 DROP(S) OTIC BID 06/20/2018 07/03/2018 Inactive cefdinir 250 mg/5 mL oral suspension RxNorm: 856092 12 Milliliter(s) PO QD though PEG tube 06/13/2018 06/22/2018 Inactive famotidine 20 mg tablet RxNorm: 807319 1 Tablet(s) PO QHS 05/31/2018 11/26/2018 Inactive famotidine 40 mg/5 mL (8 mg/mL) oral suspension RxNorm: 3102 74 2.5 Milliliter(s) PO QHS 04/29/2018 06/12/2018 Inactive meclizine 12.5 mg tablet RxNorm: 432424 1 TABLET(S) PO TID NEEDE D 04/25/2018 07/23/2018 Inactive change in quantity Generlac 10 gram/15 mL oral solution RxNorm: 815562 Mil liliter(s) 15 MILLILITER(S) PO TWO TO THREE TIMES DAILY 04/04/2018 05/03/2018 Inacti ve Ciprodex 0.3 %-0.1 % ear drops,suspension RxNorm: 107991 Drop(s) 4 DROP(S) OTIC BID 04/04/2018 04/17/2018 Inactive diazepam 10 mg tablet RxNorm: 704590 1 Tablet(s) PO QHS as needed 1 05/03/2018 Inactive famotidine 40 mg/5 mL (8 mg/mL) oral suspension RxNorm: 3102 74 2.5 Milliliter(s) PO QHS 04/04/2018 04/28/2018 Inactive Generlac 10 gram/15 mL oral solution RxNorm: 470278 15 MILLILITER(S) PO TWO TO THREE TIMES DAILY 03/24/2018 04/03/2018 Inactive Singulair 10 mg tablet RxNorm: 526070 1 TABLET(S) PO QD 03/18/2018 Inactive Ciprodex 0.3 %-0.1 % ear drops,suspension RxNorm: 922769 Drop(s) 4 DROP(S) OTIC BID 03/08/2018 03/21/2018 Inactive Generlac 10 gram/15 mL oral solution RxNorm: 214271 15 Milliliter(s) PO two to three times daily 03/03/2018 03/23/2018 Inactive meclizine 12.5 mg tablet RxNorm: 401325 1 Tablet(s) PO TID as neede d 02/10/2018 04/10/2018 Inactive change in quantity meclizine 12.5 mg tablet RxNorm: 843201 1 Tablet(s) PO BID as neede d 02/07/2018 02/09/2018 Inactive change in quantity Ciprodex 0.3 %-0.1 % ear drops,suspension RxNorm: 877127 Drop(s) 4 DROP(S) OTIC BID 02/02/2018 03/08/2018 Inactive sertraline 50 mg tablet RxNorm: 383821 1 TABLET(S) PO QHS 01/25/2018 07/05/2018 Inactive Zithromax 200 mg/5 mL oral suspension RxNorm: 535055 12.5 Dilcia liter(s) PO QD 12/31/2017 01/04/2018 Inactive Pepcid 20 mg tablet RxNorm: 095008 TABLET(S) 1 TABLET(S) PO QHS 04/29/2018 Inactive famotidine 40 mg/5 mL (8 mg/mL) oral suspension RxNorm: 3102 74 2.5 Milliliter(s) PO QHS 12/28/2017 12/27/2017 Inactive famotidine 40 mg/5 mL (8 mg/mL) oral suspension RxNorm: 3102 74 2.5 Milliliter(s) PO QHS 12/28/2017 04/03/2018 Inactive Ciprodex 0.3 %-0.1 % ear drops,suspension RxNorm: 340266 Drop(s) 4 DROP(S) OTIC BID 12/27/2017 02/02/2018 Inactive meclizine 12.5 mg tablet RxNorm: 081569 1 Tablet(s) PO BID as neede d 12/23/2017 02/06/2018 Inactive change in quantity Protonix 40 mg tablet,delayed release RxNorm: 911245 1 Tablet(s) PO or per feeding tube BID 12/16/2017 07/13/2018 Inactive oxcarbazepine 300 mg/5 mL (60 mg/mL) oral suspension RxNorm: 663468 15 Milliliter(s) PO BID 12/16/2017 07/08/2018 Inactive meclizine 12.5 mg tablet RxNorm: 543332 1 Tablet(s) PO BID as neede d 12/15/2017 02/07/2018 Inactive change in quantity Pepcid 40 mg/5 mL (8 mg/mL) oral suspension RxNorm: 545420 5 Milliliter(s) PO QHS to replace nighttime pantoprazole dose 12/14/2017 12/27/2017 Inact марина meclizine 12.5 mg tablet RxNorm: 576246 1 Tablet(s) PO BID as neede d 12/13/2017 12/23/2017 Inactive diazepam 10 mg tablet RxNorm: 858083 1 Tablet(s) PO QHS as needed 0 12/02/2017 03/01/2018 Inactive prednisolone 15 mg/5 mL oral solution RxNorm: 681301 5 Milliliter(s) PO BID for 3 days then 5ml daily for 3 days then 2.5ml daily for 3 days 12/02/2017 12/13/2017 Inactive sertraline 50 mg tablet RxNorm: 129629 1 Tablet(s) PO QHS 11/04/2017 01/24/2018 Inactive Ciprodex 0.3 %-0.1 % ear drops,suspension RxNorm: 787065 Drop(s) 4 DROP(S) OTIC BID 10/18/2017 10/31/2017 Inactive Ciprodex 0.3 %-0.1 % ear drops,suspension RxNorm: 397812 Drop(s) 4 DROP(S) OTIC BID 10/18/2017 12/27/2017 Inactive Singulair 10 mg tablet RxNorm: 561538 1 Tablet(s) PO QD 09/30/2017 Inactive diazepam 5 mg/5 mL (1 mg/mL) oral solution RxNorm: 314061 2.5 Milliliter(s) PO QD give additional 5 mg dose if seizure occurs 09/17/2017 No Stop Date A ctive Bactrim DS 800 mg-160 mg tablet RxNorm: 842050 1 Tablet(s) PO BID 0 09/17/2017 09/23/2017 Inactive Ciprodex 0.3 %-0.1 % ear drops,suspension RxNorm: 410206 4 DROP (S) OTIC BID 09/13/2017 10/18/2017 Inactive cefdinir 250 mg/5 mL oral suspension RxNorm: 474846 12 Milliliter(s) PO QD though PEG tube 08/06/2017 08/15/2017 Inactive sertraline 50 mg tablet RxNorm: 211971 1 Tablet(s) PO QHS 08/02/2017 11/04/2017 Inactive Ciprodex 0.3 %-0.1 % ear drops,suspension RxNorm: 114393 4 DROP (S) OTIC BID 07/22/2017 08/11/2017 Inactive Singulair 10 mg tablet RxNorm: 092358 1 Tablet(s) PO QD 06/30/2017 Inactive diazepam 10 mg tablet RxNorm: 171608 TAKE 1 TABLET BY M OUTH EVERY NIGHT AT BEDTIME NEEDED 06/04/2017 07/03/2017 Inactive oxcarbazepine 300 mg/5 mL (60 mg/mL) oral suspension RxNorm: 488071 15 MILLILITER(S) PO BID 05/03/2017 12/16/2017 Inactive sertraline 50 mg tablet RxNorm: 501790 1 Tablet(s) PO QHS 05/03/2017 08/02/2017 Inactive Protonix 40 mg tablet,delayed release RxNorm: 899225 1 Tablet(s) PO or per feeding tube BID 04/26/2017 12/16/2017 Inactive Ciprodex 0.3 %-0.1 % ear drops,suspension RxNorm: 994640 4 DROP (S) OTIC BID 04/26/2017 05/23/2017 Inactive Generlac 10 gram/15 mL oral solution RxNorm: 293997 Mil liliter(s) TAKE 15 ML BY MOUTH TWO-THREE TIMES DAILY 04/08/2017 03/03/2018 Inactive Singulair 10 mg tablet RxNorm: 052698 1 Tablet(s) PO QD 03/03/2017 Inactive diazepam 10 mg tablet RxNorm: 252465 1 Tablet(s) PO QHS as needed 0 02/15/2017 06/04/2017 Inactive Singulair 10 mg tablet RxNorm: 428272 1 Tablet(s) PO QD 12/01/2016 Inactive Diflucan 150 mg tablet RxNorm: 521605 Tablet(s) Give 1 tab PO now and then repeat dose in 5 days 11/10/2016 03/31/2017 Inactive Zithromax 200 mg/5 mL oral suspension RxNorm: 646721 12.5 Dilcia liter(s) PO QD 11/10/2016 11/14/2016 Inactive Singulair 10 mg tablet RxNorm: 502824 TAKE 1 TABLET BY MOUTH ON CE DAILY 11/02/2016 12/01/2016 Inactive diazepam 10 mg tablet RxNorm: 030462 TAKE 1 TABLET BY M OUTH EVERY NIGHT AT BEDTIME NEEDED 10/21/2016 11/19/2016 Inactive sertraline 50 mg tablet RxNorm: 965904 1 Tablet(s) PO QHS 10/12/2016 01/09/2017 Inactive fluconazole 100 mg tablet RxNorm: 071674 1 Tablet(s) PO QD 09/23/19 17 09/24/2016 Inactive fluconazole 100 mg tablet RxNorm: 792128 1 Tablet(s) PO QD 09/23/19 17 09/21/2016 Inactive Bactrim DS 800 mg-160 mg tablet RxNorm: 019271 1 Tablet(s) PO BID 0 09/10/2016 09/09/2016 Inactive Bactrim DS 800 mg-160 mg tablet RxNorm: 518144 1 Tablet(s) PO BID 0 09/10/2016 09/16/2016 Inactive oxcarbazepine 300 mg/5 mL (60 mg/mL) oral suspension RxNorm: 507216 15 Milliliter(s) PO BID 09/07/2016 03/05/2017 Inactive sertraline 50 mg tablet RxNorm: 103489 1 Tablet(s) PO QHS 07/06/2016 10/03/2016 Inactive Pepcid 20 mg tablet RxNorm: 434766 Tablet(s) 1 TABLET(S) PO QHS 08/201603/08/2017 Inactive sertraline 50 mg tablet RxNorm: 043971 1 Tablet(s) PO QHS 06/08/2016 05/03/2017 Inactive Generlac 10 gram/15 mL oral solution RxNorm: 757510 Mil liliter(s) TAKE 15 ML BY MOUTH TWO-THREE TIMES DAILY 06/08/2016 09/08/2016 Inactive Pepcid 20 mg tablet RxNorm: 076880 1 TABLET(S) PO QHS 06/04/201607/2016 Inactive fluconazole 100 mg tablet RxNorm: 292240 1 Tablet(s) QD through PEG tube 05/13/2016 12/01/2017 Inactive Diflucan 150 mg tablet RxNorm: 444164 Give 1 tab PO now and then repeat dose in 5 days 03/19/2016 11/09/2016 Inactive ceftriaxone 1 gram solution for injection RxNorm: 9713596 1 Gram(s) IM QD Wednesday and Wednesday03/19/2016 11/09/2016 Inactive lidocaine 10 mg/mL (1 %) injection solution RxNorm: 2227012 Use as directed to reconstitute Rocephin when needed 03/19/2016 12/13/2017 Inactive Generlac 10 gram/15 mL oral solution RxNorm: 478808 JOE E 15 ML BY MOUTH TWO- THREE TIMES DAILY 03/19/2016 06/07/2016 Inactive oxcarbazepine 300 mg/5 mL oral suspension RxNorm: 541619 15 Milliliter(s) PO BID 03/13/2016 09/07/2016 Inactive Ciprodex 0.3 %-0.1 % ear drops,suspension RxNorm: 185745 4 DROP (S) OTIC BID 03/09/2016 03/15/2016 Inactive cefdinir 250 mg/5 mL oral suspension RxNorm: 152816 11. 75 Milliliter(s) PO QD though PEG tube 03/02/2016 03/08/2016 Inactive cefdinir 250 mg/5 mL oral suspension RxNorm: 380470 11. 75 Milliliter(s) PO QD though PEG tube 02/24/2016 03/01/2016 Inactive cefdinir 250 mg/5 mL oral suspension RxNorm: 862851 11. 75 Milliliter(s) PO QD though PEG tube 02/24/2016 02/23/2016 Inactive Ciprodex 0.3 %-0.1 % ear drops,suspension RxNorm: 221736 4 Drop (s) OTIC BID 02/24/2016 03/01/2016 Inactive Generlac 10 gram/15 mL oral solution RxNorm: 894965 JOE E 15 ML BY MOUTH TWICE DAILY 02/17/2016 03/18/2016 Inactive Generlac 10 gram/15 mL oral solution RxNorm: 926478 15 Millilit er(s) PO BID 01/23/2016 02/16/2016 Inactive Pepcid 20 mg tablet RxNorm: 522455 1 TABLET(S) PO QHS 01/13/201605/07 Inactive Ciprodex 0.3 %-0.1 % ear drops,suspension RxNorm: 158331 4 Drop (s) OTIC BID 12/23/2015 12/29/2015 Inactive sertraline 50 mg tablet RxNorm: 742963 1 Tablet(s) PO QHS 12/16/2015 06/07/2016 Inactive Zithromax 500 mg tablet RxNorm: 139462 1 Tablet(s) PO QD 12/16/2015 0 12/22/2015 Inactive Pepcid 20 mg tablet RxNorm: 970629 1 Tablet(s) PO QHS 12/16/201501/02 Inactive Zithromax 500 mg tablet RxNorm: 968953 1 Tablet(s) PO QD 11/12/2015 0 11/18/2015 Inactive Singulair 10 mg tablet RxNorm: 748576 1 Tablet(s) PO BID 10/16/2015 0 11/11/2015 Inactive diazepam 10 mg tablet RxNorm: 755990 1 Tablet(s) PO QHS 10/07/2015 Inactive diazepam 10 mg tablet RxNorm: 348929 1 Tablet(s) PO QHS 10/07/2015 Inactive fexofenadine 30 mg/5 mL oral suspension RxNorm: 790087 10 Milliliter(s) PO one to two times daily PRN allergies 09/20/2015 12/15/2015 Inactive ceftriaxone 1 gram solution for injection RxNorm: 5688184 1 Gram (s) IM QD 09/20/2015 09/21/2015 Inactive Ciprodex 0.3 %-0.1 % ear drops,suspension RxNorm: 034959 4 Drop (s) OTIC BID 09/20/2015 10/03/2015 Inactive Protonix 40 mg tablet,delayed release RxNorm: 805883 1 Tablet(s) PO or per feeding tube BID 08/21/2015 12/18/2015 Inactive Carafate 100 mg/mL oral suspension RxNorm: 169392 10 Mi lliliter(s) Miscellaneous per feeding tube AC & HS 08/21/2015 09/19/2015 Inactive Zyrtec 10 mg tablet RxNorm: 7474444 1 Tablet(s) PO QD No Start Date Active diazepam 20 mg rectal kit RxNorm: 851628 RTL as needed No Start Date Active Lortab Elixir 10 mg-300 mg/15 mL oral solution RxNorm: 88097 45 8 PO Q6-8H as needed No Start Date Active ondansetron HCl 4 mg/5 mL oral solution RxNorm: 507085 10 Milliliter(s) PO as needed and through tube No Start Date Active sertraline 50 mg tablet RxNorm: 329374 1 Tablet(s) PO QD No Start D ate 12/15/2015 Inactive Brittany 180 mg tablet RxNorm: 329229 1 Tablet(s) PO QD No Start Date 06/12/2018 Inactive Generlac 10 gram/15 mL oral solution RxNorm: 528717 15 Millilit er(s) PO BID No Start Date 01/22/2016 Inactive oxcarbazepine 300 mg/5 mL oral suspension RxNorm: 333142 13.5 Milliliter(s) PO QAM and 15ml in the evening No Start Date 12/15/2015 Inactive Singulair 10 mg tablet RxNorm: 822254 1 Tablet(s) PO QD No Start Da te 11/30/2016 Inactive meclizine 12.5 mg tablet RxNorm: 296979 1 Tablet(s) PO TID as needed for dizziness No Start Date 09/13/2017 Inactive meclizine 12.5 mg tablet RxNorm: 742820 1 Tablet(s) PO BID No Start Date 12/12/2017 Inactive fluconazole 100 mg tablet RxNorm: 090139 1 Tablet(s) QD through PEG tube No Start Date 05/12/2016 Inactive Flomax 0.4 mg capsule RxNorm: 188302 1 Capsule(s) PO QD No Start Da te 06/12/2018 Inactive diazepam 10 mg tablet RxNorm: 646298 1 Tablet(s) PO QHS as needed N o Start Date 02/14/2017 Inactive Generlac 10 gram/15 mL oral solution RxNorm: 147192 15 Milliliter(s) PO two to three times daily No Start Date 03/02/2018 Inactive oxcarbazepine 300 mg/5 mL oral suspension RxNorm: 824193 15 Milliliter(s) PO BID No Start Date 12/15/2017 Inactive Medication Administered No Medication Administered data Immunizations Vaccine Codes Date Status Influenza CVX: 141 04/21/2019 Results No Results data Procedures Procedure Codes Date DEXAMETHASONE SODIUM PHOS CPT-4: J1100 10/06/2019 THER/PROPH/DIAG INJ SC/IM CPT-4: 09290 10/06/2019 DEXAMETHASONE SODIUM PHOS CPT-4: J1100 05/03/2019 THER/PROPH/DIAG INJ SC/IM CPT-4: 87601 05/03/2019 CEFTRIAXONE SODIUM INJECTION CPT-4: J0696 03/19/2016 THER/PROPH/DIAG INJ SC/IM CPT-4: 04027 03/19/2016 DEXAMETHASONE SODIUM PHOS CPT-4: J1100 11/12/2015 THER/PROPH/DIAG INJ SC/IM CPT-4: 99225 11/12/2015 CEFTRIAXONE SODIUM INJECTION CPT-4: J0696 09/20/2015 THER/PROPH/DIAG INJ SC/IM CPT-4: 63555 09/20/2015 THER/PROPH/DIAG INJ SC/IM CPT-4: 63693 09/10/2015 METHYLPREDNISOLONE 40 MG INJ CPT-4: J1030 09/10/2015 TRIAMCINOLONE ACET INJ NOS CPT-4: J3301 09/10/2015 Vital Signs Date Vital 07/25/2019 Blood Pressure 1: 116/80 Code: 8480-6 BMI: 23.2 Code: 94370-6 Heart Rate 1: 81 bpm Height: 4'5" Respiratory Rate: 16 bpm SpO2: 100% Tempera ture: 36.8 (C) / 98.2 (F) Weight: 92 lbs 06/12/2019 Blood Pressure 1: 112/74 Code: 8480-6 BMI: 23.2 Code: 08295-2 Heart Rate 1: 102 bpm Height: 4'5" [...] 1: 114/70 Code: 8480-6 BMI: 23.1 Code: 08936-8 Heart Rate 1: 80 bpm Height: 4'6" [...] visit Encounters Encounter Performer Location Codes Date ([id number]) NURSE/OUTPATIENT VISIT EST Diagnosis: Allergic rhinitis, unspecified[ICD10: J30.9] Keily RIOSLINE Diamante ARAN[address] CPT-4: 99760 10/06/2019 ([id number]) OFFICE/OUTPATIENT VISIT EST Diagnosis: Allergic rhinitis[ICD10: J30.9] Fatou Onofre Located Within [facility] CPT-4: 40180 10/05/2019 ([id number]) OFFICE/OUTPATIENT VISIT EST Diagnosis: Sinusitis[ICD10: J32.9] Fatou GILBERT [address] CPT-4: 12917 07/25/2019 ([id number]) PREV VISIT EST AGE 18-39 Diagnosis: Encounter for general adult medical examination with abnormal findings[ICD10: Z00.01] Diagnosis: Chronic pancreatitis[ICD10: K86.1] Diagnosis: Cerebral palsy, unspecified[ICD10: G80.9] Keily Pepemishadominique RIOSKEILY Diamante [facility] CPT-4: 50237 06/12/2019 ([id number]) OFFICE/OUTPATIENT VISIT EST Diagnosis: Pneumonia, organism unspecified[ICD10: J18.9] Diagnosis: Breast mass, right[ICD10: N63.10] Keily Pepemishadominique RIOSMI Vallejo Diamante [facility] CPT-4: 45869 05/08/2019 ([id number]) OFFICE/OUTPATIENT VISIT EST Diagnosis: Allergic rhinitis due to pollen[ICD10: J30.1] Diagnosis: Otitis media, unspecified, right ear[ICD10: H66.91] Fatou [address] CPT-4: 11761 05/03/2019 ([id number]) OFFICE/OUTPATIENT VISIT EST Diagnosis: Irritability and anger[ICD10: R45.4] Nataliia Hsieh BLANCA KYUNG Diamante [address] CPT-4: 24369 11/25/2018 ([id number]) OFFICE/OUTPATIENT VISIT EST Diagnosis: Acute suppurative otitis media without spontaneous rupture of ear drum, bilateral[ICD10: H66.003] Fatou ARANGO DO [facility] CPT-4: 48383 06/13/2018 ([id number]) OFFICE/OUTPATIENT VISIT EST Diagnosis: Other fatigue[ICD10: R53.83] Diagnosis: Anuria and oliguria[ICD10: R34] Diagnosis: Acute gastritis without bleeding[ICD10: K29.00] Fatou ARANGO DO [facility] CPT-4: 56853 01/04/2018 ([id number]) OFFICE/OUTPATIENT VISIT EST Diagnosis: Acute bronchitis, unspecified[ICD10: J20.9] Fatou ARANGO DO [facility] CPT-4: 45286 12/31/2017 ([id number]) PREV VISIT EST AGE 18-39 Diagnosis: Encounter for general adult medical examination without abnormal findings[ICD10: Z00.00] Diagnosis: Severe intellectual disabilities[ICD10: F72] Diagnosis: Allergic rhinitis due to pollen[ICD10: J30.1] Diagnosis: Epilepsy, unspecified, intractable, without status epilepticus[ICD10: G40.919] Diagnosis: Gastro-esophageal reflux disease without esophagitis[ICD10: K21.9] Keily ARANGO Alicanto [facility] CPT-4: 84384 12/14/2017 ([id number]) OFFICE/OUTPATIENT VISIT EST Diagnosis: Allergic rhinitis due to pollen[ICD10: J30.1] Diagnosis: Epilepsy, unspecified, intractable, without status epilepticus[ICD10: G40.919] Keily ARANGO Alicanto [facility] CPT-4: 40059 12/02/2017 ([id number]) OFFICE/OUTPATIENT VISIT EST Diagnosis: Other allergic rhinitis[ICD10: J30.89] Fatou ARANGO Alicanto [facility] CPT-4: 24710 10/12/2017 OFFICE/OUTPATIENT VISIT EST Diagnosis: Acute suppurative otitis media without spontaneous rupture of ear drum, recurrent, left ear[ICD10: H66.005] Diagnosis: Epilepsy, unspecified, intractable, without status epilepticus[ICD10: G40.919] Diagnosis: Hesitancy of micturition[ICD10: R39.11] [facility]: 32234 09/17/2017 OFFICE/OUTPATIENT VISIT EST Diagnosis: Otitis media, unspecified, left ear[ICD10: H66.92] Fatou [facility] CPT[facility]: 50486 08/06/2017 ([id number]) OFFICE/OUTPATIENT VISIT EST Diagnosis: Vertigo of central origin, 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.49] Diagnosis: Dizziness and giddiness[ICD10: R42] Keily RIOSAliya Bobby [facility] CPT-4: 45216 04/01/2017 OFFICE/OUTPATIENT VISIT EST Diagnosis: Vomiting, unspecified[ICD10: R11.10] Diagnosis: 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)[ICD10: K56.5] Diagnosis: Personal history of urinary calculi[ICD10: Z87.442] Emely Hdz KEILY Bobby [facility] CPT-4: 21507 03/01/2017 ([id number]) OFFICE/OUTPATIENT VISIT EST Diagnosis: Allergic rhinitis due to pollen[ICD10: J30.1] Diagnosis: Acute and subacute allergic otitis media (mucoid) (sanguinous) (serous), left ear[ICD10: H65.112] Keily LÓPEZQUELINE Diamante [facility] CPT-4: 88950 11/10/2016 ([id number]) OFFICE/OUTPATIENT VISIT EST Diagnosis: 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] Diagnosis: Unspecified ovarian cyst, right side[ICD10: N83.201] Diagnosis: Cyst of kidney, 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] Keily CERON Diamante [facility] CPT-4: 61357 08/13/2016 ([id number]) OFFICE/OUTPATIENT VISIT EST Diagnosis: Rash and other nonspecific skin eruption[ICD10: R21] Aziza Magallanes KEILY Bobby [facility] CPT-4: 42978 03/27/2016 ([id number]) OFFICE/OUTPATIENT VISIT EST Diagnosis: Urinary tract infection, site not specified[ICD10: N39.0] Keilykyung [facility]AN[facility] CPT-4: 69363 03/23/2016 ([id number]) OFFICE/OUTPATIENT VISIT EST Diagnosis: Retention of urine, unspecified[ICD10: R33.9] Diagnosis: Dysuria[ICD10: R30.0] Diagnosis: Constipation, unspecified[ICD10: K59.00] Aziza Magallanes SIOMARA ELIZABETHKARTHIKEYANMARCELLA Diamante [facility] CPT-4: 18848 03/19/2016 ([id number]) OFFICE/OUTPATIENT VISIT EST Diagnosis: Acute sinusitis, unspecified[ICD10: J01.90] Keily [facility] CPT-4: 99202 03/02/2016 OFFICE/OUTPATIENT VISIT EST Diagnosis: Other fatigue[ICD10: R53.83] Diagnosis: Retention of urine, unspecified[ICD10: R33.9] Diagnosis: Dysuria[ICD10: R30.0] Diagnosis: Generalized abdominal pain[ICD10: R10.84] 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] Aziza [facility] CPT-4: 48051 02/24/2016 ([id number]) OFFICE/OUTPATIENT VISIT EST Diagnosis: Chronic mucoid otitis media, right ear[ICD10: H65.31] Diagnosis: Allergic rhinitis, unspecified[ICD10: J30.9] Diagnosis: 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] Keily [facility] CPT-4: 45197 12/16/2015 ([id number]) OFFICE/OUTPATIENT VISIT EST Diagnosis: Allergic rhinitis, unspecified[ICD10: J30.9] Diagnosis: Acute recurrent sinusitis, unspecified[ICD10: J01.91] Keily [facility] CPT-4: 17365 11/12/2015 ([id number]) OFFICE/OUTPATIENT VISIT EST Diagnosis: Other seasonal allergic rhinitis[ICD10: J30.2] Diagnosis: Nausea with vomiting, unspecified[ICD10: R11.2] Diagnosis: Epigastric pain[ICD10: R10.13] Aziza [facility] CPT-4: 07018 10/16/2015 OFFICE/OUTPATIENT VISIT EST Diagnosis: Encounter for follow-up examination after completed treatment for conditions other than malignant neoplasm[ICD10: Z09] Diagnosis: Generalized abdominal pain[ICD10: R10.84] Keily Conchita McraeAlicia CONCHITA HURLEY [facility] CPT-4: 17337 09/23/2015 ([id number]) OFFICE/OUTPATIENT VISIT EST Diagnosis: Otitis media, unspecified, right ear[ICD10: H66.91] Diagnosis: Constipation, unspecified[ICD10: K59.00] Diagnosis: Allergic rhinitis, unspecified[ICD10: J30.9] Aziza Magallanes KEILY ThorAlicia CONCHITA Alicanto [facility] CPT-4: 02003 09/20/2015 OFFICE/OUTPATIENT VISIT EST Diagnosis: Allergic rhinitis, unspecified[ICD10: J30.9] Diagnosis: Unspecified perforation of tympanic membrane, right ear[ICD10: H72.91] Bibiana RiosAprilmason KEILY ThorAlicia CONCHITA Alicanto [facility] CPT-4: 20112 09/10/2015 OFFICE/OUTPATIENT VISIT NEW Diagnosis: Epilepsy, unspecified, intractable, without status epilepticus[ICD10: G40.919] Diagnosis: Gastric ulcer, unspecified as acute or chronic, without hemorrhage or perforation[ICD10: K25.9] Diagnosis: Severe intellectual disabilities[ICD10: F72] Keily Conchita RIOSLINE ThorAlicia CONCHITA Alicanto [facility] CPT-4: 10446 08/21/2015 Plan of Care Planned Activity Notes Codes Status Date Appointment: Keily [phone] [facility] [place] [facility] 10/06/2019 Visit Diagnosis Plan: Allergic [...] ICD-10 : J30.9 10/05/2019 Appointment: Fatou Onofre [address] [place], [place] [id number] US TELEMEDICINE 10/05/2019 Visit Diagnosis Plan: Sinusitis Discussion: due to [facility] of illness and symptoms, cefdinir prescribed to take as directed. call office with any new or worsening symptoms. ICD-9 : 473.9 ICD-10 : J32.9 07/25/2019 Appointment: Fatou Onofre [address] [id number] US ACUTE ILLNESS 07/25/2019 Patient Education: cefdinir- [employer] Coupon [id number] [email or web address]/getResource/61/[email or web address] Completed 07/25/2019 Visit Diagnosis Plan: Chronic pancreatitis Discussion: Continue zenpep and recheck CMP with amylase/lipase in 1 month ICD-9 : 577.1 ICD-10 : K86.1 06/12/2019 Appointment: Keily Arango WPtel: [facility] Annual Well Visit 06/12/2019 Visit [...] J18.9 05/08/2019 Appointment: Keily Arango WPtel: [phone] Hospital Follow Up 05/08/2019 Visit Diagnosis Plan: Allergic rhinitis due to pollen Discussion: dexamethasone 4 mg im given in office. ICD-9 : 477.9 ICD-10 : J30.1 05/03/2019 Visit Diagnosis Plan: Otitis media, unspecified, right ear Discussion: amoxil bid for 10 days. discussed that most likely cause of her decrease in appetite, increase in drooling, and decrease in sleep. continue with ciprodex. call office with any new or worsening symptoms or if no improvement by wednesday. to ED over the weekend with worsening ICD-9 : 382.9 ICD-10 : H66.91 05/03/2019 Appointment: Fatou Onofre [address] [place] [address] ACUTE ILLNESS 05/03/2019 Patient Education: amoxicillin- [employer] Coupon [id number] [email or web address]/resources/getResource/61/[email or web address] Completed 05/03/2019 Visit Diagnosis Plan: Irritability and [...] ICD-10 : R45.4 11/25/2018 Appointment: Nataliia Hsieh [address] [place] [address] ACUTE ILLNESS 11/25/2018 Visit Diagnosis Plan: Acute suppurative otitis media without spontaneous rupture of ear drum, bilateral Discussion: cefdinir for 10 days. if wor sening symptoms later this week, call clinic. push fluids and tylenol/ibuprofen prn pain or fever. ICD-9 : 382.00 ICD-10 : H66.003 06/13/2018 Appointment: Fatou Onofre [address] [place] [address] ACUTE ILLNESS 06/13/2018 Visit Diagnosis Plan: Anuria [...] ICD-10 : K29.00 01/04/2018 Appointment: Fatou Onofre [address] [place] [address] ACUTE ILLNESS 01/04/2018 Patient Education: Patient Medication Summary Completed 01/04/2018 Visit Diagnosis Plan: Acute bronchitis, unspecified Di scussion: zithromax prescribed to take as directed. continue with allergy meds including flonase to help dry congestion. call office next week if new or worsening symptoms. ICD-9 : 466.0 ICD-10 : J20.9 12/31/2017 Appointment: Fatou Onofre [address] ACUTE ILLNESS 12/31/2017 Patient Education: Patient Medication [...] G40.919 12/14/2017 Visit Diagnosis Plan: Encounter for [facility] medical examination without abnormal findings Discussion: Had recent lab done Follow Up: 3 months ICD-9 : V70.9 ICD-10 : Z00.00 12/14/2017 Appointment: Keily Arango WPtel: [address] [place] [address] CHECK UP 12/14/2017 Patient Education: Patient Medication [...] : J30.1 12/02/2017 Appointment: Keily Arango WPtel: [facility] [place] [address] ACUTE ILLNESS 12/02/2017 Patient Education: Patient Medication Summary Completed 12/02/2017 Visit Diagnosis Plan: Other allergic rhinitis Discussi on: symptoms most likely caused from allergies. patient sent to hospital for decadron injection. instructed to restart patient's flonase at home. if new or worsening symptoms, call or rtc. ICD-9 : 477.8 ICD-10 : J30.89 10/12/2017 Appointment: Fatou Onofre [address] ACUTE ILLNESS 10/12/2017 Patient Education: Patient Medication [...] ICD-10 : G40.919 09/17/2017 Appointment: Fatou Onofre [facility] ACUTE ILLNESS 09/17/2017 Patient Education: Patient Medication Summary Completed 09/17/2017 Visit Diagnosis Plan: Otitis media, unspecified, left ear Discussion: cefdinir prescribed daily for 10 days. instructed to administer tylenol/ibuprofen for pain or fever. if no improvement, or worsening symptoms, call or rtc. ICD-9 : 380.14 ICD-10 : H66.92 08/06/2017 Appointment: Jemima, Fatou R. [address] [place], [place] [address] ACUTE ILLNESS 08/06/2017 Patient Education: Patient Medication Summary Completed 08/06/2017 Patient Education: Patient Medication Summary Completed 08/02/2017 Patient Education: Patient Medication Summary Completed 04/21/2017 Care Plan: MRI BRAIN STEM W/O DYE LOINC : 99995-8 Pending 04/21/2017 Patient Education: Patient Medication Summary Completed 04/20/2017 Care Plan: MRI BRAIN STEM W/O DYE LOINC : 06753-7 Pending 04/20/2017 Visit Diagnosis Plan: Vertigo of central origin, unspe cified ear Discussion: Continue meclizine at 12.5mg po BID for 2 more weeks then go to 12.5mg daily for 2 weeks then 6.25mg daily for 2 weeks then stop Notify if any symptoms return with weaning process ICD-9 : 386.2 ICD-10 : H81.49 04/01/2017 Appointment: Keily Arango WPtel: [phone] [place] [phone] FOLLOW UP 04/01/2017 Patient Education: Patient Medication Summary Completed 04/01/2017 Patient Education: Patient Medication Summary Completed 03/09/2017 Care Plan: CT HEAD/BRAIN W/O DYE LOINC : 45011-4 Pending 03/09/2017 Visit Plan: It's difficult to [...] indicated. 03/01/2017 Appointment: Emely Hdz WPtel: [phone] [facility] ACUTE ILLNESS 03/01/2017 Patient Education: Patient Medication Summary Completed 03/01/2017 Patient Education: Patient Medication Summary Completed 12/17/2016 Visit Diagnosis Plan: Acute and subacute allergic otitis media (mucoid) (sanguinous) (serous), left ear Discussion: Zithromax ICD-9 : 381.05 ICD-10 : H65.112 11/10/2016 Visit Diagnosis Plan: Allergic rhinitis due to pollen Discussion: Continue zyrtec/singulair ICD-9 : 477.9 ICD-10 : J30.1 11/10/2016 Appointment: Keily Arango WPtel: [address] [place] [address] ACUTE ILLNESS 11/10/2016 Patient Education: Patient Medication Summary Completed 11/10/2016 Patient Education: Patient Medication Summary Completed 09/07/2016 Care Plan: URINALYSIS [place] W/[place] : 63417-6 Pending 09/07/2016 Visit Diagnosis Plan: Cyst of [...] : N83.201 08/13/2016 Appointment: Keily Arango WPtel: [address] [place] [address] 08/12 confirmed-sp FOLLOW UP 08/13/2016 Patient Education: Patient Medication Summary Completed 08/13/2016 Patient Education: Patient Medication Summary Completed 05/19/2016 Care Plan: X-RAY EXAM OF FOOT left foot LOINC : 26 095-0 Pending 05/19/2016 Visit Plan: Discussed with Dr Conchita MAGANA C to be drawn Order sent to Will call with results 03/27/2016 Appointment: Aziza Magallanes [address] [place] [address] ACUTE ILLNESS 03/27/2016 Patient Education: Patient Medication Summary Completed 03/27/2016 Visit Plan: Go for dose of rocephin 1gm IM today and tomorrow then done Diflucan 150mg x1 today Discussed with mom via phone about urology fwup--she will talk with her and let us know 03/23/2016 Appointment: Keily Arango WPtel: [phone] [facility] 03/23 confirmed ~sl FOLLOW UP 03/23/2016 Patient Education: Patient Medication Summary Completed 03/23/2016 Visit Plan: Per Dr Arango, straight cat h for UA and culture today Ok to have a standing order for further UA needs at for straight cath Rocephin IM today and daily through Wednesday Mom has arranged a family friend that is an [employer] to give Wednesday and Sundays injections - [...] let us know 03/19/2016 Appointment: Aziza Magallanes [address] [place] [address] ACUTE ILLNESS 03/19/2016 Patient Education: Patient Medication Summary Completed 03/19/2016 Visit Plan: 1 more week of cefdinir 03/02/2016 Appointment: Keily Arango WPtel: [facility] 03/02 confirmed~sl WORK IN 03/02/2016 Patient Education: [...] seen if worsening 02/24/2016 Appointment: Aziza Magallanes [address] [place] [address] ACUTE ILLNESS 02/24/2016 Patient Education: Patient Medication Summary Completed 02/24/2016 Care Plan: CHEST X-RAY 2VW FRONTAL&LATL LOINC : 39598-7 Pending 02/24/2016 Care Plan: X-RAY EXAM OF ABDOMEN LOINC : 68395-4 Pending 02/24/2016 Visit Plan: Repeat zithromax x1 week Cip rodex to right ear x1 week Add Pepcid q HS x2-4 weeks for total histamine blockade and for extra stomach protection while on zithromax 12/16/2015 Appointment: Keily [phone] [facility] [place] 6/9 lm~sl 6/10 lm ~sl FOLLOW UP 12/16/2015 Patient Education: Patient Medication Summary Completed 12/16/2015 Patient Education: [facility] [employer] - Sertraline HCL - 18-64 - Dynamic Portal ID Completed 12/16/2015 Visit Plan: Saline nasal flushes prn. Ty lenol/Motrin prn headache. Notify if persists/symptoms worsens Dexamethasone given 11/12/2015 Appointment: Keily Arango [facility]Ptel: [phone] [facility] [place] 5/9 lm~sl 5/10 lm~sl 5/10 confirm-sp [...] visits for Belkys 10/16/2015 Appointment: Aziza Magallanes [address] [place], [place] [id number] ACUTE ILLNESS 10/16/2015 Patient Education: Patient Medication Summary Completed 10/16/2015 Appointment: Aziza Magallanes [address] [place], [place] [id number] canceled, feeling better CANCELED 016 Visit Plan: No further abx needed Go mariela k to jevity for next 3 days and restart carafate Notify if abdominal pain worsens 09/23/2015 Appointment: Keily Arango [facility]el: [phone] [facility] 09/19 confirmed-sp FOLLOW UP 09/23/2015 Patient Education: [...] done in the past. Order sent to [facility] since [facility] does not have in [...] try for now. 09/20/2015 Appointment: Aziza Magallanes [address] [facility] ACUTE ILLNESS 09/20/2015 Patient Education: Patient Medication Summary Completed 09/20/2015 Visit Plan: Depo Medrol 40mg/ Kenalog 40 mg IM today Resume Ciprodex otic gtts. bid to Rt. ear 09/10/2015 Appointment: Bibiana [phone] 09/08 confirmed-sp ACUTE ILLNESS 09/10/2015 Patient [...] arranged a family friend that is an [employer] to give Wednesday and Sundays injections - rxs for rocephin and lido sent to [facility] cannot order the lido in the qty patient needs) Dr Arango wants patient to be re-evaluated on Wednesday in clinic Referral to Urology for recurrent UTIs and urinary retention - mom wants to research who she wants her sent to and let us know . 1 more week of cefdinir . Mom reports after discussion of patikuldip pittman seeming uncomfortable with abdominal exam, that she [...] done in the past. Order sent to [facility] since [facility] does not have in [...]
--- OUTSIDE RECORDS SUMMARY | 2019-11-10 19:32 | XMS REPORT | CCD ---
Author Author Belkys Arango D.O. Organization KEILY ARANGO DO [facility] Address [address] [place] [address] Phone Care Team Providers Care Enamel Buffer Name Role Phone Keily Arango D.O., PP Unavailable CCM Unavailable Summary Purpose Interface Exchange Insurance Providers Payer name Policy type / Coverage type Covered green party ID Effective Begin Date Effective End Date [employer] [facility] [place] Medicaid [id number] U nknown Family History Family History data not found Social History Social History Element Codes Description Effective Dates Marital status Unknown Single 08/21/2015 Employment Unknown Currently unemployed Physically handicapped 08/21/[address]: 127220712 Has never smoked or chewed tobacco 08/21/[address]: 285618466 Never drinks alcohol 2015 Allergies, Adverse Reactions, [...] Start Date Stop Date Status Fill Instructions Ciprodex 0.3 %-0.1 % ear drops,suspension RxNorm: 562850 SHAKE LIQUID AND INSTILL 4 DROPS IN AFFECTED EAR(S) TWICE DAILY 09/22/2019 10/15/2019 A ctive diazepam 10 mg tablet RxNorm: 962575 TAKE 1 TABLET BY M OUTH EVERY NIGHT AT BEDTIME NEEDED 09/11/2019 10/10/2019 Active meclizine 12.5 mg tablet RxNorm: 553826 TAKE 1 TABLET B Y MOUTH THREE TIMES DAILY NEEDED 08/31/2019 10/29/2019 Active Ciprodex 0.3 %-0.1 % ear drops,suspension RxNorm: 205222 SHAKE LIQUID AND INSTILL 4 DROPS IN AFFECTED EAR(S) TWICE DAILY 08/31/2019 09/07/2019 I nactive Ciprodex 0.3 %-0.1 % ear drops,suspension RxNorm: 088746 SHAKE LIQUID AND INSTILL 4 DROPS IN AFFECTED EAR(S) TWICE DAILY 08/11/2019 08/18/2019 I nactive meclizine 12.5 mg tablet RxNorm: 229355 TAKE 1 TABLET B Y MOUTH THREE TIMES DAILY NEEDED 08/04/2019 08/30/2019 Inactive cefdinir 250 mg/5 mL oral suspension RxNorm: 212680 12 Milliliter(s) Oral QD though PEG tube 07/25/2019 08/03/2019 Inactive Zenpep 40,000 unit-126,000 unit-168,000 unit capsule,d elayed release RxNorm: 6712098 1 Capsule(s) Oral AC 07/10/2019 11/06/2019 Active famotidine 20 mg tablet RxNorm: 946512 TAKE 1 TABLET BY MOUTH EVERY NIGHT AT BEDTIME 07/09/2019 01/04/2020 Active sertraline 50 mg tablet RxNorm: 179147 TAKE 1 TABLET BY MOUTH EVERY NIGHT AT BEDTIME 07/09/2019 09/06/2019 Inactive Zenpep 40,000 unit-126,000 unit-168,000 unit capsule,d elayed release RxNorm: 3109392 1 Capsule(s) Oral AC 06/12/2019 07/09/2019 Inactive Zenpep 40,000 unit-126,000 unit-168,000 unit capsule,d elayed release RxNorm: 2252696 1 Capsule(s) Oral AC 05/24/2019 05/23/2019 Inactive Zenpep 40,000 unit-126,000 unit-168,000 unit capsule,d elayed release RxNorm: 7520452 1 Capsule(s) Oral AC 05/24/2019 06/11/2019 Inactive Ciprodex 0.3 %-0.1 % ear drops,suspension RxNorm: 736093 DROP(S) 4 DROP(S) OTIC BID 05/22/2019 06/18/2019 Inactive oxcarbazepine 300 mg/5 mL (60 mg/mL) oral suspension RxNorm: 529685 15 Milliliter(s) Oral two times a day 05/08/2019 11/03/2019 Active meclizine 12.5 mg tablet RxNorm: 670881 1 TABLET(S) PO TID NEEDE D 05/05/2019 08/02/2019 Inactive change in quantity Zithromax 200 mg/5 mL oral suspension RxNorm: 154932 12.5 Dilcia liter(s) Oral QD 05/04/2019 05/09/2019 Inactive amoxicillin 400 mg/5 mL oral suspension RxNorm: 195202 10 Milliliter(s) Oral two times a day 05/03/2019 05/13/2019 Inactive Singulair 10 mg tablet RxNorm: 032710 1 TABLET(S) PO QD 03/28/2019 Inactive Macrobid 100 mg capsule RxNorm: 764409 1 Capsule(s) PO BID 03/16/2003/22/2019 Inactive meclizine 12.5 mg tablet RxNorm: 378497 1 Tablet(s) PO TID as neede d 03/10/2019 05/04/2019 Inactive change in quantity Ciprodex 0.3 %-0.1 % ear drops,suspension RxNorm: 149705 DROP(S) 4 DROP(S) OTIC BID 03/08/2019 04/04/2019 Inactive oxcarbazepine 300 mg/5 mL (60 mg/mL) oral suspension RxNorm: 201207 15 Milliliter(s) PO BID 03/07/2019 05/07/2019 Inactive Macrobid 100 mg capsule RxNorm: 213731 1 Capsule(s) PO BID 02/21/2003/01/2019 Inactive Macrobid 100 mg capsule RxNorm: 973679 1 Capsule(s) PO BID 02/21/2002/19/2019 Inactive meclizine 12.5 mg tablet RxNorm: 929123 1 Tablet(s) PO TID as neede d 02/06/2019 03/07/2019 Inactive change in quantity Ciprodex 0.3 %-0.1 % ear drops,suspension RxNorm: 989651 DROP(S) 4 DROP(S) OTIC BID 01/30/2019 02/12/2019 Inactive diazepam 10 mg tablet RxNorm: 347528 1 Tablet(s) PO QHS as needed 0 01/27/2019 09/10/2019 Inactive sertraline 50 mg tablet RxNorm: 216190 1 Tablet(s) PO QHS 12/29/2018 06/26/2019 Inactive famotidine 20 mg tablet RxNorm: 265527 1 Tablet(s) PO QHS 12/29/2018 06/26/2019 Inactive Ciprodex 0.3 %-0.1 % ear drops,suspension RxNorm: 358687 DROP(S) 4 DROP(S) OTIC BID 12/14/2018 12/27/2018 Inactive Generlac 10 gram/15 mL oral solution RxNorm: 740092 15 Milliliter(s) PO TWO TO THREE TIMES DAILY 12/06/2018 06/03/2019 Inactive Protonix 40 mg tablet,delayed release RxNorm: 308384 1 Tablet(s) PO or per feeding tube BID 11/24/2018 05/22/2019 Inactive meclizine 12.5 mg tablet RxNorm: 914459 1 Tablet(s) PO TID as neede d 11/11/2018 02/06/2019 Inactive change in quantity Ciprodex 0.3 %-0.1 % ear drops,suspension RxNorm: 955862 DROP(S) 4 DROP(S) OTIC BID 11/08/2018 11/21/2018 Inactive diazepam 10 mg tablet RxNorm: 953981 1 Tablet(s) PO QHS as needed 0 10/21/2018 11/19/2018 Inactive Generlac 10 gram/15 mL oral solution RxNorm: 405493 Mil liliter(s) 15 MILLILITER(S) PO TWO TO THREE TIMES DAILY 10/07/2018 11/05/2018 Inacti ve Ciprodex 0.3 %-0.1 % ear drops,suspension RxNorm: 097212 DROP(S) DROP(S) 4 DROP(S) OTIC BID 08/26/2018 03/15/2019 Inactive meclizine 12.5 mg tablet RxNorm: 229333 1 TABLET(S) PO TID NEEDE D 07/25/2018 10/22/2018 Inactive change in quantity oxcarbazepine 300 mg/5 mL (60 mg/mL) oral suspension RxNorm: 901469 15 Milliliter(s) PO BID 07/08/2018 07/07/2018 Inactive oxcarbazepine 300 mg/5 mL (60 mg/mL) oral suspension RxNorm: 411703 15 Milliliter(s) PO BID 07/08/2018 01/03/2019 Inactive sertraline 50 mg tablet RxNorm: 278218 1 TABLET(S) PO QHS 07/06/2018 12/28/2018 Inactive Singulair 10 mg tablet RxNorm: 905544 1 TABLET(S) PO QD 06/24/2018 Inactive Ciprodex 0.3 %-0.1 % ear drops,suspension RxNorm: 538949 DROP(S) 4 DROP(S) OTIC BID 06/20/2018 06/19/2018 Inactive Ciprodex 0.3 %-0.1 % ear drops,suspension RxNorm: 187092 Drop(s) DROP(S) 4 DROP(S) OTIC BID 06/20/2018 07/03/2018 Inactive cefdinir 250 mg/5 mL oral suspension RxNorm: 153151 12 Milliliter(s) PO QD though PEG tube 06/13/2018 06/22/2018 Inactive famotidine 20 mg tablet RxNorm: 167488 1 Tablet(s) PO QHS 05/31/2018 11/26/2018 Inactive famotidine 40 mg/5 mL (8 mg/mL) oral suspension RxNorm: 3102 74 2.5 Milliliter(s) PO QHS 04/29/2018 06/12/2018 Inactive meclizine 12.5 mg tablet RxNorm: 551145 1 TABLET(S) PO TID NEEDE D 04/25/2018 07/23/2018 Inactive change in quantity Generlac 10 gram/15 mL oral solution RxNorm: 301295 Mil liliter(s) 15 MILLILITER(S) PO TWO TO THREE TIMES DAILY 04/04/2018 05/03/2018 Inacti ve Ciprodex 0.3 %-0.1 % ear drops,suspension RxNorm: 417019 Drop(s) 4 DROP(S) OTIC BID 04/04/2018 04/17/2018 Inactive diazepam 10 mg tablet RxNorm: 486792 1 Tablet(s) PO QHS as needed 1 05/03/2018 Inactive famotidine 40 mg/5 mL (8 mg/mL) oral suspension RxNorm: 3102 74 2.5 Milliliter(s) PO QHS 04/04/2018 04/28/2018 Inactive Generlac 10 gram/15 mL oral solution RxNorm: 857184 15 MILLILITER(S) PO TWO TO THREE TIMES DAILY 03/24/2018 04/03/2018 Inactive Singulair 10 mg tablet RxNorm: 462002 1 TABLET(S) PO QD 03/18/2018 Inactive Ciprodex 0.3 %-0.1 % ear drops,suspension RxNorm: 076461 Drop(s) 4 DROP(S) OTIC BID 03/08/2018 03/21/2018 Inactive Generlac 10 gram/15 mL oral solution RxNorm: 482482 15 Milliliter(s) PO two to three times daily 03/03/2018 03/23/2018 Inactive meclizine 12.5 mg tablet RxNorm: 008288 1 Tablet(s) PO TID as neede d 02/10/2018 04/10/2018 Inactive change in quantity meclizine 12.5 mg tablet RxNorm: 888192 1 Tablet(s) PO BID as neede d 02/07/2018 02/09/2018 Inactive change in quantity Ciprodex 0.3 %-0.1 % ear drops,suspension RxNorm: 991297 Drop(s) 4 DROP(S) OTIC BID 02/02/2018 03/08/2018 Inactive sertraline 50 mg tablet RxNorm: 201755 1 TABLET(S) PO QHS 01/25/2018 07/05/2018 Inactive Zithromax 200 mg/5 mL oral suspension RxNorm: 826152 12.5 Dilcia liter(s) PO QD 12/31/2017 01/04/2018 Inactive Pepcid 20 mg tablet RxNorm: 327986 TABLET(S) 1 TABLET(S) PO QHS 04/29/2018 Inactive famotidine 40 mg/5 mL (8 mg/mL) oral suspension RxNorm: 3102 74 2.5 Milliliter(s) PO QHS 12/28/2017 12/27/2017 Inactive famotidine 40 mg/5 mL (8 mg/mL) oral suspension RxNorm: 3102 74 2.5 Milliliter(s) PO QHS 12/28/2017 04/03/2018 Inactive Ciprodex 0.3 %-0.1 % ear drops,suspension RxNorm: 866233 Drop(s) 4 DROP(S) OTIC BID 12/27/2017 02/02/2018 Inactive meclizine 12.5 mg tablet RxNorm: 455111 1 Tablet(s) PO BID as neede d 12/23/2017 02/06/2018 Inactive change in quantity Protonix 40 mg tablet,delayed release RxNorm: 961865 1 Tablet(s) PO or per feeding tube BID 12/16/2017 07/13/2018 Inactive oxcarbazepine 300 mg/5 mL (60 mg/mL) oral suspension RxNorm: 789193 15 Milliliter(s) PO BID 12/16/2017 07/08/2018 Inactive meclizine 12.5 mg tablet RxNorm: 552245 1 Tablet(s) PO BID as neede d 12/15/2017 02/07/2018 Inactive change in quantity Pepcid 40 mg/5 mL (8 mg/mL) oral suspension RxNorm: 423198 5 Milliliter(s) PO QHS to replace nighttime pantoprazole dose 12/14/2017 12/27/2017 Inact марина meclizine 12.5 mg tablet RxNorm: 296843 1 Tablet(s) PO BID as neede d 12/13/2017 12/23/2017 Inactive diazepam 10 mg tablet RxNorm: 812101 1 Tablet(s) PO QHS as needed 0 12/02/2017 03/01/2018 Inactive prednisolone 15 mg/5 mL oral solution RxNorm: 736656 5 Milliliter(s) PO BID for 3 days then 5ml daily for 3 days then 2.5ml daily for 3 days 12/02/2017 12/13/2017 Inactive sertraline 50 mg tablet RxNorm: 765334 1 Tablet(s) PO QHS 11/04/2017 01/24/2018 Inactive Ciprodex 0.3 %-0.1 % ear drops,suspension RxNorm: 255422 Drop(s) 4 DROP(S) OTIC BID 10/18/2017 10/31/2017 Inactive Ciprodex 0.3 %-0.1 % ear drops,suspension RxNorm: 734547 Drop(s) 4 DROP(S) OTIC BID 10/18/2017 12/27/2017 Inactive Singulair 10 mg tablet RxNorm: 945567 1 Tablet(s) PO QD 09/30/2017 Inactive diazepam 5 mg/5 mL (1 mg/mL) oral solution RxNorm: 608922 2.5 Milliliter(s) PO QD give additional 5 mg dose if seizure occurs 09/17/2017 No Stop Date A ctive Bactrim DS 800 mg-160 mg tablet RxNorm: 274441 1 Tablet(s) PO BID 0 09/17/2017 09/23/2017 Inactive Ciprodex 0.3 %-0.1 % ear drops,suspension RxNorm: 328848 4 DROP (S) OTIC BID 09/13/2017 10/18/2017 Inactive cefdinir 250 mg/5 mL oral suspension RxNorm: 278417 12 Milliliter(s) PO QD though PEG tube 08/06/2017 08/15/2017 Inactive sertraline 50 mg tablet RxNorm: 300252 1 Tablet(s) PO QHS 08/02/2017 11/04/2017 Inactive Ciprodex 0.3 %-0.1 % ear drops,suspension RxNorm: 428991 4 DROP (S) OTIC BID 07/22/2017 08/11/2017 Inactive Singulair 10 mg tablet RxNorm: 549361 1 Tablet(s) PO QD 06/30/2017 Inactive diazepam 10 mg tablet RxNorm: 882983 TAKE 1 TABLET BY M OUTH EVERY NIGHT AT BEDTIME NEEDED 06/04/2017 07/03/2017 Inactive oxcarbazepine 300 mg/5 mL (60 mg/mL) oral suspension RxNorm: 008223 15 MILLILITER(S) PO BID 05/03/2017 12/16/2017 Inactive sertraline 50 mg tablet RxNorm: 193146 1 Tablet(s) PO QHS 05/03/2017 08/02/2017 Inactive Protonix 40 mg tablet,delayed release RxNorm: 663067 1 Tablet(s) PO or per feeding tube BID 04/26/2017 12/16/2017 Inactive Ciprodex 0.3 %-0.1 % ear drops,suspension RxNorm: 042092 4 DROP (S) OTIC BID 04/26/2017 05/23/2017 Inactive Generlac 10 gram/15 mL oral solution RxNorm: 171722 Mil liliter(s) TAKE 15 ML BY MOUTH TWO-THREE TIMES DAILY 04/08/2017 03/03/2018 Inactive Singulair 10 mg tablet RxNorm: 736233 1 Tablet(s) PO QD 03/03/2017 Inactive diazepam 10 mg tablet RxNorm: 521103 1 Tablet(s) PO QHS as needed 0 02/15/2017 06/04/2017 Inactive Singulair 10 mg tablet RxNorm: 833435 1 Tablet(s) PO QD 12/01/2016 Inactive Diflucan 150 mg tablet RxNorm: 794943 Tablet(s) Give 1 tab PO now and then repeat dose in 5 days 11/10/2016 03/31/2017 Inactive Zithromax 200 mg/5 mL oral suspension RxNorm: 525897 12.5 Dilcia liter(s) PO QD 11/10/2016 11/14/2016 Inactive Singulair 10 mg tablet RxNorm: 729003 TAKE 1 TABLET BY MOUTH ON CE DAILY 11/02/2016 12/01/2016 Inactive diazepam 10 mg tablet RxNorm: 891571 TAKE 1 TABLET BY M OUTH EVERY NIGHT AT BEDTIME NEEDED 10/21/2016 11/19/2016 Inactive sertraline 50 mg tablet RxNorm: 600309 1 Tablet(s) PO QHS 10/12/2016 01/09/2017 Inactive fluconazole 100 mg tablet RxNorm: 184582 1 Tablet(s) PO QD 09/23/19 17 09/24/2016 Inactive fluconazole 100 mg tablet RxNorm: 142314 1 Tablet(s) PO QD 09/23/19 17 09/21/2016 Inactive Bactrim DS 800 mg-160 mg tablet RxNorm: 184845 1 Tablet(s) PO BID 0 09/10/2016 09/09/2016 Inactive Bactrim DS 800 mg-160 mg tablet RxNorm: 304462 1 Tablet(s) PO BID 0 09/10/2016 09/16/2016 Inactive oxcarbazepine 300 mg/5 mL (60 mg/mL) oral suspension RxNorm: 732596 15 Milliliter(s) PO BID 09/07/2016 03/05/2017 Inactive sertraline 50 mg tablet RxNorm: 693227 1 Tablet(s) PO QHS 07/06/2016 10/03/2016 Inactive Pepcid 20 mg tablet RxNorm: 494706 Tablet(s) 1 TABLET(S) PO QHS 08/201603/08/2017 Inactive sertraline 50 mg tablet RxNorm: 859202 1 Tablet(s) PO QHS 06/08/2016 05/03/2017 Inactive Generlac 10 gram/15 mL oral solution RxNorm: 036056 Mil liliter(s) TAKE 15 ML BY MOUTH TWO-THREE TIMES DAILY 06/08/2016 09/08/2016 Inactive Pepcid 20 mg tablet RxNorm: 675293 1 TABLET(S) PO QHS 06/04/201607/2016 Inactive fluconazole 100 mg tablet RxNorm: 920232 1 Tablet(s) QD through PEG tube 05/13/2016 12/01/2017 Inactive Diflucan 150 mg tablet RxNorm: 600156 Give 1 tab PO now and then repeat dose in 5 days 03/19/2016 11/09/2016 Inactive ceftriaxone 1 gram solution for injection RxNorm: 4869176 1 Gram(s) IM QD Wednesday and Wednesday03/19/2016 11/09/2016 Inactive lidocaine 10 mg/mL (1 %) injection solution RxNorm: 1695627 Use as directed to reconstitute Rocephin when needed 03/19/2016 12/13/2017 Inactive Generlac 10 gram/15 mL oral solution RxNorm: 717791 JOE E 15 ML BY MOUTH TWO- THREE TIMES DAILY 03/19/2016 06/07/2016 Inactive oxcarbazepine 300 mg/5 mL oral suspension RxNorm: 333796 15 Milliliter(s) PO BID 03/13/2016 09/07/2016 Inactive Ciprodex 0.3 %-0.1 % ear drops,suspension RxNorm: 586717 4 DROP (S) OTIC BID 03/09/2016 03/15/2016 Inactive cefdinir 250 mg/5 mL oral suspension RxNorm: 354685 11. 75 Milliliter(s) PO QD though PEG tube 03/02/2016 03/08/2016 Inactive cefdinir 250 mg/5 mL oral suspension RxNorm: 580753 11. 75 Milliliter(s) PO QD though PEG tube 02/24/2016 03/01/2016 Inactive cefdinir 250 mg/5 mL oral suspension RxNorm: 243421 11. 75 Milliliter(s) PO QD though PEG tube 02/24/2016 02/23/2016 Inactive Ciprodex 0.3 %-0.1 % ear drops,suspension RxNorm: 290665 4 Drop (s) OTIC BID 02/24/2016 03/01/2016 Inactive Generlac 10 gram/15 mL oral solution RxNorm: 213539 JOE E 15 ML BY MOUTH TWICE DAILY 02/17/2016 03/18/2016 Inactive Generlac 10 gram/15 mL oral solution RxNorm: 345213 15 Millilit er(s) PO BID 01/23/2016 02/16/2016 Inactive Pepcid 20 mg tablet RxNorm: 005054 1 TABLET(S) PO QHS 01/13/201605/07 Inactive Ciprodex 0.3 %-0.1 % ear drops,suspension RxNorm: 983947 4 Drop (s) OTIC BID 12/23/2015 12/29/2015 Inactive sertraline 50 mg tablet RxNorm: 808882 1 Tablet(s) PO QHS 12/16/2015 06/07/2016 Inactive Zithromax 500 mg tablet RxNorm: 191586 1 Tablet(s) PO QD 12/16/2015 0 12/22/2015 Inactive Pepcid 20 mg tablet RxNorm: 852856 1 Tablet(s) PO QHS 12/16/201501/02 Inactive Zithromax 500 mg tablet RxNorm: 967701 1 Tablet(s) PO QD 11/12/2015 0 11/18/2015 Inactive Singulair 10 mg tablet RxNorm: 585312 1 Tablet(s) PO BID 10/16/2015 0 11/11/2015 Inactive diazepam 10 mg tablet RxNorm: 780821 1 Tablet(s) PO QHS 10/07/2015 Inactive diazepam 10 mg tablet RxNorm: 248960 1 Tablet(s) PO QHS 10/07/2015 Inactive fexofenadine 30 mg/5 mL oral suspension RxNorm: 550259 10 Milliliter(s) PO one to two times daily PRN allergies 09/20/2015 12/15/2015 Inactive ceftriaxone 1 gram solution for injection RxNorm: 2609898 1 Gram (s) IM QD 09/20/2015 09/21/2015 Inactive Ciprodex 0.3 %-0.1 % ear drops,suspension RxNorm: 296351 4 Drop (s) OTIC BID 09/20/2015 10/03/2015 Inactive Protonix 40 mg tablet,delayed release RxNorm: 475132 1 Tablet(s) PO or per feeding tube BID 08/21/2015 12/18/2015 Inactive Carafate 100 mg/mL oral suspension RxNorm: 414144 10 Mi lliliter(s) Miscellaneous per feeding tube AC & HS 08/21/2015 09/19/2015 Inactive Zyrtec 10 mg tablet RxNorm: 9497458 1 Tablet(s) PO QD No Start Date Active diazepam 20 mg rectal kit RxNorm: 683020 RTL as needed No Start Date Active Lortab Elixir 10 mg-300 mg/15 mL oral solution RxNorm: 90715 45 8 PO Q6-8H as needed No Start Date Active ondansetron HCl 4 mg/5 mL oral solution RxNorm: 614231 10 Milliliter(s) PO as needed and through tube No Start Date Active sertraline 50 mg tablet RxNorm: 734230 1 Tablet(s) PO QD No Start D ate 12/15/2015 Inactive Brittany 180 mg tablet RxNorm: 912720 1 Tablet(s) PO QD No Start Date 06/12/2018 Inactive Generlac 10 gram/15 mL oral solution RxNorm: 428942 15 Millilit er(s) PO BID No Start Date 01/22/2016 Inactive oxcarbazepine 300 mg/5 mL oral suspension RxNorm: 296208 13.5 Milliliter(s) PO QAM and 15ml in the evening No Start Date 12/15/2015 Inactive Singulair 10 mg tablet RxNorm: 204237 1 Tablet(s) PO QD No Start Da te 11/30/2016 Inactive meclizine 12.5 mg tablet RxNorm: 735436 1 Tablet(s) PO TID as needed for dizziness No Start Date 09/13/2017 Inactive meclizine 12.5 mg tablet RxNorm: 010124 1 Tablet(s) PO BID No Start Date 12/12/2017 Inactive fluconazole 100 mg tablet RxNorm: 277977 1 Tablet(s) QD through PEG tube No Start Date 05/12/2016 Inactive Flomax 0.4 mg capsule RxNorm: 373506 1 Capsule(s) PO QD No Start Da te 06/12/2018 Inactive diazepam 10 mg tablet RxNorm: 978552 1 Tablet(s) PO QHS as needed N o Start Date 02/14/2017 Inactive Generlac 10 gram/15 mL oral solution RxNorm: 641129 15 Milliliter(s) PO two to three times daily No Start Date 03/02/2018 Inactive oxcarbazepine 300 mg/5 mL oral suspension RxNorm: 727127 15 Milliliter(s) PO BID No Start Date 12/15/2017 Inactive Medication Administered No Medication Administered data Immunizations Vaccine Codes Date Status Influenza CVX: 141 04/21/2019 Results No Results data Procedures Procedure Codes Date DEXAMETHASONE SODIUM PHOS CPT-4: J1100 10/06/2019 THER/PROPH/DIAG INJ SC/IM CPT-4: 33901 10/06/2019 DEXAMETHASONE SODIUM PHOS CPT-4: J1100 05/03/2019 THER/PROPH/DIAG INJ SC/IM CPT-4: 01716 05/03/2019 CEFTRIAXONE SODIUM INJECTION CPT-4: J0696 03/19/2016 THER/PROPH/DIAG INJ SC/IM CPT-4: 12256 03/19/2016 DEXAMETHASONE SODIUM PHOS CPT-4: J1100 11/12/2015 THER/PROPH/DIAG INJ SC/IM CPT-4: 20387 11/12/2015 CEFTRIAXONE SODIUM INJECTION CPT-4: J0696 09/20/2015 THER/PROPH/DIAG INJ SC/IM CPT-4: 83925 09/20/2015 THER/PROPH/DIAG INJ SC/IM CPT-4: 12553 09/10/2015 METHYLPREDNISOLONE 40 MG INJ CPT-4: J1030 09/10/2015 TRIAMCINOLONE ACET INJ NOS CPT-4: J3301 09/10/2015 Vital Signs Date Vital 07/25/2019 Blood Pressure 1: 116/80 Code: 8480-6 BMI: 23.2 Code: 98337-4 Heart Rate 1: 81 bpm Height: 4'5" Respiratory Rate: 16 bpm SpO2: 100% Tempera ture: 36.8 (C) / 98.2 (F) Weight: 92 lbs 06/12/2019 Blood Pressure 1: 112/74 Code: 8480-6 BMI: 23.2 Code: 04433-2 Heart Rate 1: 102 bpm Height: 4'5" [...] 1: 114/70 Code: 8480-6 BMI: 23.1 Code: 10814-6 Heart Rate 1: 80 bpm Height: 4'6" [...] visit Encounters Encounter Performer Location Codes Date ([id number]) NURSE/OUTPATIENT VISIT EST Diagnosis: Allergic rhinitis, unspecified[ICD10: J30.9] Keily ARANGO DO [facility] CPT-4: 79135 10/06/2019 ([id number]) OFFICE/OUTPATIENT VISIT EST Diagnosis: Allergic rhinitis[ICD10: J30.9] Fatou [facility] CPT-4: 85284 10/05/2019 ([id number]) OFFICE/OUTPATIENT VISIT EST Diagnosis: Sinusitis[ICD10: J32.9] Fatou GILBERT [employer] [facility] CPT-4: 93531 07/25/2019 ([id number]) PREV VISIT EST AGE 18-39 Diagnosis: Encounter for general adult medical examination with abnormal findings[ICD10: Z00.01] Diagnosis: Chronic pancreatitis[ICD10: K86.1] Diagnosis: Cerebral palsy, unspecified[ICD10: G80.9] Keily ARANGO [employer] [facility] CPT-4: 78949 06/12/2019 ([id number]) OFFICE/OUTPATIENT VISIT EST Diagnosis: Pneumonia, organism unspecified[ICD10: J18.9] Diagnosis: Breast mass, right[ICD10: N63.10] Keily ARANGO [employer] [facility] CPT-4: 69900 05/08/2019 ([id number]) OFFICE/OUTPATIENT VISIT EST Diagnosis: Allergic rhinitis due to pollen[ICD10: J30.1] Diagnosis: Otitis media, unspecified, right ear[ICD10: H66.91] Fatou ARANGO DO [facility] CPT-4: 26384 05/03/2019 ([id number]) OFFICE/OUTPATIENT VISIT EST Diagnosis: Irritability and anger[ICD10: R45.4] Nataliia Hsieh BLANCA ARANGO [employer] [facility] CPT-4: 38529 11/25/2018 ([id number]) OFFICE/OUTPATIENT VISIT EST Diagnosis: Acute suppurative otitis media without spontaneous rupture of ear drum, bilateral[ICD10: H66.003] Fatou ARANGO DO [facility] CPT-4: 01433 06/13/2018 ([id number]) OFFICE/OUTPATIENT VISIT EST Diagnosis: Other fatigue[ICD10: R53.83] Diagnosis: Anuria and oliguria[ICD10: R34] Diagnosis: Acute gastritis without bleeding[ICD10: K29.00] Fatou ARANGO DO [facility] CPT-4: 55249 01/04/2018 ([id number]) OFFICE/OUTPATIENT VISIT EST Diagnosis: Acute bronchitis, unspecified[ICD10: J20.9] Fatou ARANGO DO [facility] CPT-4: 96404 12/31/2017 ([id number]) PREV VISIT EST AGE 18-39 Diagnosis: Encounter for general adult medical examination without abnormal findings[ICD10: Z00.00] Diagnosis: Severe intellectual disabilities[ICD10: F72] Diagnosis: Allergic rhinitis due to pollen[ICD10: J30.1] Diagnosis: Epilepsy, unspecified, intractable, without status epilepticus[ICD10: G40.919] Diagnosis: Gastro-esophageal reflux disease without esophagitis[ICD10: K21.9] [facility] 07883 12/14/2017 ([id number]) OFFICE/OUTPATIENT VISIT EST Diagnosis: Allergic rhinitis due to pollen[ICD10: J30.1] Diagnosis: Epilepsy, unspecified, intractable, without status epilepticus[ICD10: G40.919] [facility]: 75502 12/02/2017 ([id number]) OFFICE/OUTPATIENT VISIT EST Diagnosis: Other allergic rhinitis[ICD10: J30.89] [facility]PT[facility]: 94739 10/12/2017 OFFICE/OUTPATIENT VISIT EST Diagnosis: Acute suppurative otitis media without spontaneous rupture of ear drum, recurrent, left ear[ICD10: H66.005] Diagnosis: Epilepsy, unspecified, intractable, without status epilepticus[ICD10: G40.919] Diagnosis: Hesitancy of micturition[ICD10: R39.11] Fatou ARANGO DO [facility] CPT-4: 78360 09/17/2017 OFFICE/OUTPATIENT VISIT EST Diagnosis: Otitis media, unspecified, left ear[ICD10: H66.92] [facility] 87836 08/06/2017 ([id number]) OFFICE/OUTPATIENT VISIT EST Diagnosis: Vertigo of central origin, 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.49] Diagnosis: Dizziness and giddiness[ICD10: R42] Keily NARANJO Diamante [facility] CPT-[facility]: 80466 04/01/2017 OFFICE/OUTPATIENT VISIT EST Diagnosis: Vomiting, unspecified[ICD10: R11.10] Diagnosis: 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)[ICD10: K56.5] Diagnosis: Personal history of urinary calculi[ICD10: Z87.442] Emely Hdz KEILY [facility] CPT-[facility]: 01917 03/01/2017 ([id number]) OFFICE/OUTPATIENT VISIT EST Diagnosis: Allergic rhinitis due to pollen[ICD10: J30.1] Diagnosis: Acute and subacute allergic otitis media (mucoid) (sanguinous) (serous), left ear[ICD10: H65.112] [facility] CPT[facility]: 22924 11/10/2016 ([id number]) OFFICE/OUTPATIENT VISIT EST Diagnosis: 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] Diagnosis: Unspecified ovarian cyst, right side[ICD10: N83.201] Diagnosis: Cyst of kidney, 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] Keily CERON [facility]amante [facility] CPT-[facility]: 86754 08/13/2016 ([id number]) OFFICE/OUTPATIENT VISIT EST Diagnosis: Rash and other nonspecific skin eruption[ICD10: R21] Aziza Magallanes KEILY Diamante [facility] CPT-[facility]: 07069 03/27/2016 ([id number]) OFFICE/OUTPATIENT VISIT EST Diagnosis: Urinary tract infection, site not specified[ICD10: N39.0] Keily [facility] CPT[facility]: 91919 03/23/2016 ([id number]) OFFICE/OUTPATIENT VISIT EST Diagnosis: Retention of urine, unspecified[ICD10: R33.9] Diagnosis: Dysuria[ICD10: R30.0] Diagnosis: Constipation, unspecified[ICD10: K59.00] Aziza Magallanes SIOMARA LAWTON Diamante [facility] CPT-4: 35630 03/19/2016 ([id number]) OFFICE/OUTPATIENT VISIT EST Diagnosis: Acute sinusitis, unspecified[ICD10: J01.90] Keily [facility] CPT-4: 63137 03/02/2016 OFFICE/OUTPATIENT VISIT EST Diagnosis: Other fatigue[ICD10: R53.83] Diagnosis: Retention of urine, unspecified[ICD10: R33.9] Diagnosis: Dysuria[ICD10: R30.0] Diagnosis: Generalized abdominal pain[ICD10: R10.84] 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] Aziza [facility] CPT-4: 10479 02/24/2016 ([id number]) OFFICE/OUTPATIENT VISIT EST Diagnosis: Chronic mucoid otitis media, right ear[ICD10: H65.31] Diagnosis: Allergic rhinitis, unspecified[ICD10: J30.9] Diagnosis: 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] Keily [facility] CPT-4: 32933 12/16/2015 ([id number]) OFFICE/OUTPATIENT VISIT EST Diagnosis: Allergic rhinitis, unspecified[ICD10: J30.9] Diagnosis: Acute recurrent sinusitis, unspecified[ICD10: J01.91] Keily [facility] CPT-4: 48619 11/12/2015 ([id number]) OFFICE/OUTPATIENT VISIT EST Diagnosis: Other seasonal allergic rhinitis[ICD10: J30.2] Diagnosis: Nausea with vomiting, unspecified[ICD10: R11.2] Diagnosis: Epigastric pain[ICD10: R10.13] Aziza [facility] CPT-4: 05085 10/16/2015 OFFICE/OUTPATIENT VISIT EST Diagnosis: Encounter for follow-up examination after completed treatment for conditions other than malignant neoplasm[ICD10: Z09] Diagnosis: Generalized abdominal pain[ICD10: R10.84] Keily [facility] [employer] [facility] CPT-4: 56893 09/23/2015 ([id number]) OFFICE/OUTPATIENT VISIT EST Diagnosis: Otitis media, unspecified, right ear[ICD10: H66.91] Diagnosis: Constipation, unspecified[ICD10: K59.00] Diagnosis: Allergic rhinitis, unspecified[ICD10: J30.9] Aziza ARAN[facility] [employer] [facility] CPT-4: 63350 09/20/2015 OFFICE/OUTPATIENT VISIT EST Diagnosis: Allergic rhinitis, unspecified[ICD10: J30.9] Diagnosis: Unspecified perforation of tympanic membrane, right ear[ICD10: H72.91] Bibiana [facility] [employer] [facility] CPT-4: 25881 09/10/2015 OFFICE/OUTPATIENT VISIT NEW Diagnosis: Epilepsy, unspecified, intractable, without status epilepticus[ICD10: G40.919] Diagnosis: Gastric ulcer, unspecified as acute or chronic, without hemorrhage or perforation[ICD10: K25.9] Diagnosis: Severe intellectual disabilities[ICD10: F72] Keily [facility]AN[facility] [employer] [facility] CPT-4: 14141 08/21/2015 Plan of Care Planned Activity Notes Codes Status Date Visit Diagnosis Plan: Allergic rhinitis Discussion: in [...] ICD-10 : J30.9 10/05/2019 Appointment: Fatou Onofre [address] [place], [place] [address]a [address] TELEMEDICINE 10/05/2019 Visit Diagnosis Plan: Sinusitis Discussion: due to dean h of illness and symptoms, cefdinir prescribed to take as directed. call office with any new or worsening symptoms. ICD-9 : 473.9 ICD-10 : J32.9 07/25/2019 Appointment: Fatou Onofre [address] [place], [place] [address] [address] ACUTE ILLNESS 07/25/2019 Patient Education: cefdinir- [employer] Coupon [id number] [email or web address].com/samplemd/resources/getResource/61/lk2f0exw-[email or web address] Completed 07/25/2019 Visit Diagnosis Plan: Chronic pancreatitis Discussion: Continue zenpep and recheck CMP with amylase/lipase in 1 month ICD-9 : 577.1 ICD-10 : K86.1 06/12/2019 Appointment: Keily [facility] [phone] [facility] [facility] 06/12/2019 Visit Diagnosis Plan: [...] : J18.9 05/08/2019 Appointment: Keily Arango [facility]el: [facility] [facility] Up 05/08/2019 Visit Diagnosis Plan: [...] ICD-10 : J30.1 05/03/2019 Appointment: Fatou Onofre [address] [place], [place] [address] ACUTE ILLNESS 05/03/2019 Patient Education: amoxicillin- [employer] Coupon [id number] https://www.[employer]/samplevt/resources/getResource/61/[email or web address] Completed 05/03/2019 Visit Diagnosis Plan: Irritability and [...] ICD-10 : R45.4 11/25/2018 Appointment: Nataliia Hsieh [facility] [address] ACUTE ILLNESS 11/25/2018 Visit Diagnosis Plan: Acute suppurative otitis media without spontaneous rupture of ear drum, bilateral Discussion: cefdinir for 10 days. if wor sening symptoms later this week, call clinic. push fluids and tylenol/ibuprofen prn pain or fever. ICD-9 : 382.00 ICD-10 : H66.003 06/13/2018 Appointment: Fatou Onofre [address] [place] [address] ACUTE ILLNESS 06/13/2018 Visit Diagnosis Plan: Anuria and oliguria Discussion: [place] sent to hospital for outpatient straight cath [...] ICD-10 : R53.83 01/04/2018 Appointment: Fatou Onofre [address] [place] [address] ACUTE ILLNESS 01/04/2018 Patient Education: Patient Medication Summary Completed 01/04/2018 Visit Diagnosis Plan: Acute bronchitis, unspecified Di scussion: zithromax prescribed to take as directed. continue with allergy meds including flonase to help dry congestion. call office next week if new or worsening symptoms. ICD-9 : 466.0 ICD-10 : J20.9 12/31/2017 Appointment: Fatou Onofre [address] [place] [address] ACUTE ILLNESS 12/31/2017 Patient Education: Patient Medication Summary Completed 12/31/2017 Visit Diagnosis Plan: Epilepsy, unspecif ied, intractable, without status epilepticus Discussion: Stable on current regimen ICD-9 : 345.91 ICD-10 : G40.919 12/14/2017 Visit Diagnosis Plan: Encounter for [facility] medical examination without abnormal findings Discussion: Had recent lab done Follow Up: 3 months ICD-9 : V70.9 ICD-10 : Z00.00 12/14/2017 Visit Diagnosis Plan: Allergic rhinitis due to pollen Discussion: Continue current meds Change night time protonix to pepcid for total histamine blockade ICD-9 : 477.9 ICD-10 : J30.1 12/14/2017 Appointment: Keily Arango WPtel: [address] [place] [address] CHECK UP 12/14/2017 Patient Education: Patient Medication [...] J30.1 12/02/2017 Appointment: Keily Arango WPtel: [phone] ACUTE ILLNESS 12/02/2017 Patient Education: Patient Medication Summary Completed 12/02/2017 Visit Diagnosis Plan: Other allergic rhinitis Discussi on: symptoms most likely caused from allergies. patient sent to hospital for decadron injection. instructed to restart patient's flonase at home. if new or worsening symptoms, call or rtc. ICD-9 : 477.8 ICD-10 : J30.89 10/12/2017 Appointment: Fatou Onofre [address] [place], [place] [address] ACUTE ILLNESS 10/12/2017 Patient Education: Patient Medication [...] ICD-10 : G40.919 09/17/2017 Appointment: Fatou Onofre [address] [place] [address] ACUTE ILLNESS 09/17/2017 Patient Education: Patient Medication Summary Completed 09/17/2017 Visit Diagnosis Plan: Otitis media, unspecified, left ear Discussion: cefdinir prescribed daily for 10 days. instructed to administer tylenol/ibuprofen for pain or fever. if no improvement, or worsening symptoms, call or rtc. ICD-9 : 380.14 ICD-10 : H66.92 08/06/2017 Appointment: Fatou Onofre [address] [place] [address] ACUTE ILLNESS 08/06/2017 Patient Education: Patient Medication Summary Completed 08/06/2017 Patient Education: Patient Medication Summary Completed 08/02/2017 Patient Education: Patient Medication Summary Completed 04/21/2017 Care Plan: MRI BRAIN STEM W/O DYE [facility] : 04966-7 Pending 04/21/2017 Patient Education: Patient Medication Summary Completed 04/20/2017 Care Plan: MRI BRAIN STEM W/O DYE LOINC : 77982-8 Pending 04/20/2017 Visit Diagnosis Plan: Vertigo of central origin, unspe cified ear Discussion: Continue meclizine at 12.5mg po BID for 2 more weeks then go to 12.5mg daily for 2 weeks then 6.25mg daily for 2 weeks then stop Notify if any symptoms return with weaning process ICD-9 : 386.2 ICD-10 : H81.49 04/01/2017 Appointment: Keily Arango WPtel: [address] [place], [place] [phone] FOLLOW UP 04/01/2017 Patient Education: Patient Medication Summary Completed 04/01/2017 Patient Education: Patient Medication Summary Completed 03/09/2017 Care Plan: CT HEAD/BRAIN W/O DYE LOINC : 97882-5 Pending 03/09/2017 Visit Plan: It's difficult to [...] medications indicated. 03/01/2017 Appointment: Emely Hdz WPtel: [address] [place] [address] ACUTE ILLNESS 03/01/2017 Patient Education: Patient Medication Summary Completed 03/01/2017 Patient Education: Patient Medication Summary Completed 12/17/2016 Visit Diagnosis Plan: Allergic rhinitis due to pollen Discussion: Continue zyrtec/singulair ICD-9 : 477.9 ICD-10 : J30.1 11/10/2016 Visit Diagnosis Plan: Acute and subacute allergic otitis media (mucoid) (sanguinous) (serous), left ear Discussion: Zithromax ICD-9 : 381.05 ICD-10 : H65.112 11/10/2016 Appointment: Keily Arango WPtel: [facility] [place] [phone] ACUTE ILLNESS 11/10/2016 Patient Education: Patient Medication Summary Completed 11/10/2016 Patient Education: Patient Medication Summary Completed 09/07/2016 Care Plan: URINALYSIS AUTO W/[place] : 46234-6 Pending 09/07/2016 Visit Diagnosis Plan: Unspecified ovarian cyst, right side Discussion: Pain resolved so will only get pelvic US if pain or vomiting return ICD-9 : 620.2 ICD-10 : N83.201 08/13/2016 Visit Diagnosis Plan: Cyst of kidney, acquired Discuss ion: Renal US in 6mos to assess stability ICD-9 : 753.10 ICD-10 : N28.1 08/13/2016 Visit Diagnosis Plan: Calculus of kidney Discussion: F inish cipro Finish flomax Will observe for now since pain is resolved ICD-9 : 592.0 ICD-10 : N20.0 08/13/2016 Appointment: Keily Arango WPtel: [address] [place] [address] 08/12 confirmed-sp FOLLOW UP 08/13/2016 Patient Education: Patient Medication Summary Completed 08/13/2016 Patient Education: Patient Medication Summary Completed 05/19/2016 Care Plan: X-RAY EXAM OF FOOT left foot LOINC : 26 095-0 Pending 05/19/2016 Visit Plan: Discussed with Dr Conchita MAGANA C to be drawn Order sent to Will call with results 03/27/2016 Appointment: Aziza Magallanes [address] [place] [address] ACUTE ILLNESS 03/27/2016 Patient Education: Patient Medication Summary Completed 03/27/2016 Visit Plan: Go for dose of rocephin 1gm IM today and tomorrow then done Diflucan 150mg x1 today Discussed with mom via phone about urology fwup--she will talk with her and let us know 03/23/2016 Appointment: Keily Arango WPtel: [address] [place], [place] [phone] 03/23 confirmed ~sl FOLLOW UP 03/23/2016 Patient Education: Patient Medication Summary Completed 03/23/2016 Visit Plan: Per Dr Arango, straight cat h for UA and culture today Ok to have a standing order for further UA needs at for straight cath Rocephin IM today and daily through Wednesday Mom has arranged a family friend that is an HEALTH SCREENER to give Wednesday and Sundays injections - [...] let us know 03/19/2016 Appointment: Aziza Magallanes [address] [facility] ACUTE ILLNESS 03/19/2016 Patient Education: Patient Medication Summary Completed 03/19/2016 Visit Plan: 1 more week of cefdinir 03/02/2016 Appointment: Keily Arango WPtel: [address] [place], [place] [phone] 03/02 confirmed~sl WORK IN 03/02/2016 Patient Education: [...] seen if worsening 02/24/2016 Appointment: Aziza Magallanes [address] [place] [phone] ACUTE ILLNESS 02/24/2016 Patient Education: Patient Medication Summary Completed 02/24/2016 Care Plan: CHEST X-RAY 2VW FRONTAL&LATL LOINC : 66632-1 Pending 02/24/2016 Care Plan: X-RAY EXAM OF ABDOMEN LOINC : 36763-8 Pending 02/24/2016 Visit Plan: Repeat zithromax x1 week Cip rodex to right ear x1 week Add Pepcid q HS x2-4 weeks for total histamine blockade and for extra stomach protection while on zithromax 12/16/2015 Appointment: Keily Arango WPtel: [phone] [facility] US 6/9 lm~sl 6/10 lm ~sl FOLLOW UP 12/16/2015 Patient Education: Patient Medication Summary Completed 12/16/2015 Patient Education: [facility] - Saving [employer] - Sertraline HCL - 18-64 - Dynamic Portal ID Completed 12/16/2015 Visit Plan: Saline nasal flushes prn. Ty lenol/Motrin prn headache. Notify if persists/symptoms worsens Dexamethasone given 11/12/2015 Appointment: Keily Arango WPtel: [phone] [facility] US 5/9 lm~sl 5/10 lm~sl 5/10 confirm-sp [...] visits for Belkys 10/16/2015 Appointment: Aziza Magallanes [address] [place], [place] [id number] ACUTE ILLNESS 10/16/2015 Patient Education: Patient Medication Summary Completed 10/16/2015 Appointment: Aziza Magallanes [address] [place], [place] [phone] [place] canceled, feeling better CANCELED 016 Visit Plan: No further abx needed Go mariela k to jevity for next 3 days and restart carafate Notify if abdominal pain worsens 09/23/2015 Appointment: Keily Arango WPtel: [phone] [facility] 09/19 confirmed-sp FOLLOW UP 09/23/2015 Patient Education: [...] done in the past. Order sent to [facility] since [facility] does not have in [...] try for now. 09/20/2015 Appointment: Aziza Magallanes [address] [place] [id number] ACUTE ILLNESS 09/20/2015 Patient Education: Patient Medication Summary Completed 09/20/2015 Visit Plan: Depo Medrol 40mg/ Kenalog 40 mg IM today Resume Ciprodex otic gtts. bid to Rt. ear 09/10/2015 Appointment: Bibiana Garg WPtel: [phone] [facility] 09/08 confirmed-sp ACUTE ILLNESS 09/10/2015 Patient Education: Patient Medication Summary Completed 09/10/2015 Visit Plan: Increase Protonix to 40mg po BID for 1month Continue carafate at q AC dosing for full month then wean off Jevity for 2 more days then advance diet if able Continue current meds 08/21/2015 Appointment: Keily Arango WPtel: [phone] [facility] [place] NEW PATIENT 08/21/2015 Patient Education: Patient [...] arranged a family friend that is an HEALTH SCRE[employer] to give Wednesday and Sundays injections - rxs for rocephin and lido sent to [facility] cannot order the lido in the qty [...] done in the past. Order sent to [facility] since [facility] does not have in [...]
--- OUTSIDE RECORDS SUMMARY | 2019-11-10 19:32 | XMS REPORT | CCD ---
Author Author Belkys Arango D.O. Organization [facility] ARANGO [facility] Address [address] [place] [address] Phone Care Team Providers Care Seo Executive Name Role Phone Keily Arango D.O., PP Unavailable CCM Unavailable Summary Purpose Interface Exchange Insurance Providers Payer name Policy type / Coverage type Covered republican ID Effective Begin Date Effective End Date [employer] [facility] [place] Medicaid [id number] U nknown Family History Family History data not found Social History Social History Element Codes Description Effective Dates Marital status Unknown Single 08/21/2015 Employment Unknown Currently unemployed Physically handicapped 08/21/[address]: 062724021 Has never smoked or chewed tobacco 08/21/[address]: 947732221 Never drinks alcohol 2015 Allergies, Adverse Reactions, [...] Ciprodex 0.3 %-0.1 % ear drops,suspension RxNorm: 436778 SHAKE LIQUID AND INSTILL 4 DROPS IN AFFECTED EAR(S) TWICE DAILY 09/22/2019 10/15/2019 A ctive diazepam 10 mg tablet RxNorm: 811592 TAKE 1 TABLET BY M OUTH EVERY NIGHT AT BEDTIME NEEDED 09/11/2019 10/10/2019 Active meclizine 12.5 mg tablet RxNorm: 594399 TAKE 1 TABLET B Y MOUTH THREE TIMES DAILY NEEDED 08/31/2019 10/29/2019 Active Ciprodex 0.3 %-0.1 % ear drops,suspension RxNorm: 534193 SHAKE LIQUID AND INSTILL 4 DROPS IN AFFECTED EAR(S) TWICE DAILY 08/31/2019 09/07/2019 I nactive Ciprodex 0.3 %-0.1 % ear drops,suspension RxNorm: 176398 SHAKE LIQUID AND INSTILL 4 DROPS IN AFFECTED EAR(S) TWICE DAILY 08/11/2019 08/18/2019 I nactive meclizine 12.5 mg tablet RxNorm: 567206 TAKE 1 TABLET B Y MOUTH THREE TIMES DAILY NEEDED 08/04/2019 08/30/2019 Inactive cefdinir 250 mg/5 mL oral suspension RxNorm: 243128 12 Milliliter(s) Oral QD though PEG tube 07/25/2019 08/03/2019 Inactive Zenpep 40,000 unit-126,000 unit-168,000 unit capsule,d elayed release RxNorm: 8166469 1 Capsule(s) Oral AC 07/10/2019 11/06/2019 Active famotidine 20 mg tablet RxNorm: 975929 TAKE 1 TABLET BY MOUTH EVERY NIGHT AT BEDTIME 07/09/2019 01/04/2020 Active sertraline 50 mg tablet RxNorm: 688015 TAKE 1 TABLET BY MOUTH EVERY NIGHT AT BEDTIME 07/09/2019 09/06/2019 Inactive Zenpep 40,000 unit-126,000 unit-168,000 unit capsule,d elayed release RxNorm: 9027193 1 Capsule(s) Oral AC 06/12/2019 07/09/2019 Inactive Zenpep 40,000 unit-126,000 unit-168,000 unit capsule,d elayed release RxNorm: 9950663 1 Capsule(s) Oral AC 05/24/2019 05/23/2019 Inactive Zenpep 40,000 unit-126,000 unit-168,000 unit capsule,d elayed release RxNorm: 1810847 1 Capsule(s) Oral AC 05/24/2019 06/11/2019 Inactive Ciprodex 0.3 %-0.1 % ear drops,suspension RxNorm: 223268 DROP(S) 4 DROP(S) OTIC BID 05/22/2019 06/18/2019 Inactive oxcarbazepine 300 mg/5 mL (60 mg/mL) oral suspension RxNorm: 379432 15 Milliliter(s) Oral two times a day 05/08/2019 11/03/2019 Active meclizine 12.5 mg tablet RxNorm: 697953 1 TABLET(S) PO TID NEEDE D 05/05/2019 08/02/2019 Inactive change in quantity Zithromax 200 mg/5 mL oral suspension RxNorm: 300314 12.5 Dilcia liter(s) Oral QD 05/04/2019 05/09/2019 Inactive amoxicillin 400 mg/5 mL oral suspension RxNorm: 984105 10 Milliliter(s) Oral two times a day 05/03/2019 05/13/2019 Inactive Singulair 10 mg tablet RxNorm: 440240 1 TABLET(S) PO QD 03/28/2019 Inactive Macrobid 100 mg capsule RxNorm: 006972 1 Capsule(s) PO BID 03/16/2003/22/2019 Inactive meclizine 12.5 mg tablet RxNorm: 061157 1 Tablet(s) PO TID as neede d 03/10/2019 05/04/2019 Inactive change in quantity Ciprodex 0.3 %-0.1 % ear drops,suspension RxNorm: 646133 DROP(S) 4 DROP(S) OTIC BID 03/08/2019 04/04/2019 Inactive oxcarbazepine 300 mg/5 mL (60 mg/mL) oral suspension RxNorm: 588753 15 Milliliter(s) PO BID 03/07/2019 05/07/2019 Inactive Macrobid 100 mg capsule RxNorm: 404139 1 Capsule(s) PO BID 02/21/2003/01/2019 Inactive Macrobid 100 mg capsule RxNorm: 677311 1 Capsule(s) PO BID 02/21/2002/19/2019 Inactive meclizine 12.5 mg tablet RxNorm: 575020 1 Tablet(s) PO TID as neede d 02/06/2019 03/07/2019 Inactive change in quantity Ciprodex 0.3 %-0.1 % ear drops,suspension RxNorm: 061010 DROP(S) 4 DROP(S) OTIC BID 01/30/2019 02/12/2019 Inactive diazepam 10 mg tablet RxNorm: 309207 1 Tablet(s) PO QHS as needed 0 01/27/2019 09/10/2019 Inactive sertraline 50 mg tablet RxNorm: 818769 1 Tablet(s) PO QHS 12/29/2018 06/26/2019 Inactive famotidine 20 mg tablet RxNorm: 476049 1 Tablet(s) PO QHS 12/29/2018 06/26/2019 Inactive Ciprodex 0.3 %-0.1 % ear drops,suspension RxNorm: 850996 DROP(S) 4 DROP(S) OTIC BID 12/14/2018 12/27/2018 Inactive Generlac 10 gram/15 mL oral solution RxNorm: 077709 15 Milliliter(s) PO TWO TO THREE TIMES DAILY 12/06/2018 06/03/2019 Inactive Protonix 40 mg tablet,delayed release RxNorm: 500476 1 Tablet(s) PO or per feeding tube BID 11/24/2018 05/22/2019 Inactive meclizine 12.5 mg tablet RxNorm: 724860 1 Tablet(s) PO TID as neede d 11/11/2018 02/06/2019 Inactive change in quantity Ciprodex 0.3 %-0.1 % ear drops,suspension RxNorm: 451788 DROP(S) 4 DROP(S) OTIC BID 11/08/2018 11/21/2018 Inactive diazepam 10 mg tablet RxNorm: 891186 1 Tablet(s) PO QHS as needed 0 10/21/2018 11/19/2018 Inactive Generlac 10 gram/15 mL oral solution RxNorm: 458878 Mil liliter(s) 15 MILLILITER(S) PO TWO TO THREE TIMES DAILY 10/07/2018 11/05/2018 Inacti ve Ciprodex 0.3 %-0.1 % ear drops,suspension RxNorm: 980379 DROP(S) DROP(S) 4 DROP(S) OTIC BID 08/26/2018 03/15/2019 Inactive meclizine 12.5 mg tablet RxNorm: 341208 1 TABLET(S) PO TID NEEDE D 07/25/2018 10/22/2018 Inactive change in quantity oxcarbazepine 300 mg/5 mL (60 mg/mL) oral suspension RxNorm: 816021 15 Milliliter(s) PO BID 07/08/2018 07/07/2018 Inactive oxcarbazepine 300 mg/5 mL (60 mg/mL) oral suspension RxNorm: 501669 15 Milliliter(s) PO BID 07/08/2018 01/03/2019 Inactive sertraline 50 mg tablet RxNorm: 576280 1 TABLET(S) PO QHS 07/06/2018 12/28/2018 Inactive Singulair 10 mg tablet RxNorm: 821931 1 TABLET(S) PO QD 06/24/2018 Inactive Ciprodex 0.3 %-0.1 % ear drops,suspension RxNorm: 617352 DROP(S) 4 DROP(S) OTIC BID 06/20/2018 06/19/2018 Inactive Ciprodex 0.3 %-0.1 % ear drops,suspension RxNorm: 164115 Drop(s) DROP(S) 4 DROP(S) OTIC BID 06/20/2018 07/03/2018 Inactive cefdinir 250 mg/5 mL oral suspension RxNorm: 315204 12 Milliliter(s) PO QD though PEG tube 06/13/2018 06/22/2018 Inactive famotidine 20 mg tablet RxNorm: 050755 1 Tablet(s) PO QHS 05/31/2018 11/26/2018 Inactive famotidine 40 mg/5 mL (8 mg/mL) oral suspension RxNorm: 3102 74 2.5 Milliliter(s) PO QHS 04/29/2018 06/12/2018 Inactive meclizine 12.5 mg tablet RxNorm: 726872 1 TABLET(S) PO TID NEEDE D 04/25/2018 07/23/2018 Inactive change in quantity Generlac 10 gram/15 mL oral solution RxNorm: 478964 Mil liliter(s) 15 MILLILITER(S) PO TWO TO THREE TIMES DAILY 04/04/2018 05/03/2018 Inacti ve Ciprodex 0.3 %-0.1 % ear drops,suspension RxNorm: 806257 Drop(s) 4 DROP(S) OTIC BID 04/04/2018 04/17/2018 Inactive diazepam 10 mg tablet RxNorm: 511057 1 Tablet(s) PO QHS as needed 1 05/03/2018 Inactive famotidine 40 mg/5 mL (8 mg/mL) oral suspension RxNorm: 3102 74 2.5 Milliliter(s) PO QHS 04/04/2018 04/28/2018 Inactive Generlac 10 gram/15 mL oral solution RxNorm: 367576 15 MILLILITER(S) PO TWO TO THREE TIMES DAILY 03/24/2018 04/03/2018 Inactive Singulair 10 mg tablet RxNorm: 441809 1 TABLET(S) PO QD 03/18/2018 Inactive Ciprodex 0.3 %-0.1 % ear drops,suspension RxNorm: 613251 Drop(s) 4 DROP(S) OTIC BID 03/08/2018 03/21/2018 Inactive Generlac 10 gram/15 mL oral solution RxNorm: 923184 15 Milliliter(s) PO two to three times daily 03/03/2018 03/23/2018 Inactive meclizine 12.5 mg tablet RxNorm: 455832 1 Tablet(s) PO TID as neede d 02/10/2018 04/10/2018 Inactive change in quantity meclizine 12.5 mg tablet RxNorm: 878406 1 Tablet(s) PO BID as neede d 02/07/2018 02/09/2018 Inactive change in quantity Ciprodex 0.3 %-0.1 % ear drops,suspension RxNorm: 258177 Drop(s) 4 DROP(S) OTIC BID 02/02/2018 03/08/2018 Inactive sertraline 50 mg tablet RxNorm: 760798 1 TABLET(S) PO QHS 01/25/2018 07/05/2018 Inactive Zithromax 200 mg/5 mL oral suspension RxNorm: 608507 12.5 Dilcia liter(s) PO QD 12/31/2017 01/04/2018 Inactive Pepcid 20 mg tablet RxNorm: 495246 TABLET(S) 1 TABLET(S) PO QHS 04/29/2018 Inactive famotidine 40 mg/5 mL (8 mg/mL) oral suspension RxNorm: 3102 74 2.5 Milliliter(s) PO QHS 12/28/2017 12/27/2017 Inactive famotidine 40 mg/5 mL (8 mg/mL) oral suspension RxNorm: 3102 74 2.5 Milliliter(s) PO QHS 12/28/2017 04/03/2018 Inactive Ciprodex 0.3 %-0.1 % ear drops,suspension RxNorm: 690150 Drop(s) 4 DROP(S) OTIC BID 12/27/2017 02/02/2018 Inactive meclizine 12.5 mg tablet RxNorm: 598148 1 Tablet(s) PO BID as neede d 12/23/2017 02/06/2018 Inactive change in quantity Protonix 40 mg tablet,delayed release RxNorm: 152359 1 Tablet(s) PO or per feeding tube BID 12/16/2017 07/13/2018 Inactive oxcarbazepine 300 mg/5 mL (60 mg/mL) oral suspension RxNorm: 375002 15 Milliliter(s) PO BID 12/16/2017 07/08/2018 Inactive meclizine 12.5 mg tablet RxNorm: 798922 1 Tablet(s) PO BID as neede d 12/15/2017 02/07/2018 Inactive change in quantity Pepcid 40 mg/5 mL (8 mg/mL) oral suspension RxNorm: 265511 5 Milliliter(s) PO QHS to replace nighttime pantoprazole dose 12/14/2017 12/27/2017 Inact марина meclizine 12.5 mg tablet RxNorm: 531562 1 Tablet(s) PO BID as neede d 12/13/2017 12/23/2017 Inactive diazepam 10 mg tablet RxNorm: 471224 1 Tablet(s) PO QHS as needed 0 12/02/2017 03/01/2018 Inactive prednisolone 15 mg/5 mL oral solution RxNorm: 081437 5 Milliliter(s) PO BID for 3 days then 5ml daily for 3 days then 2.5ml daily for 3 days 12/02/2017 12/13/2017 Inactive sertraline 50 mg tablet RxNorm: 634077 1 Tablet(s) PO QHS 11/04/2017 01/24/2018 Inactive Ciprodex 0.3 %-0.1 % ear drops,suspension RxNorm: 670422 Drop(s) 4 DROP(S) OTIC BID 10/18/2017 10/31/2017 Inactive Ciprodex 0.3 %-0.1 % ear drops,suspension RxNorm: 630728 Drop(s) 4 DROP(S) OTIC BID 10/18/2017 12/27/2017 Inactive Singulair 10 mg tablet RxNorm: 020107 1 Tablet(s) PO QD 09/30/2017 Inactive diazepam 5 mg/5 mL (1 mg/mL) oral solution RxNorm: 999191 2.5 Milliliter(s) PO QD give additional 5 mg dose if seizure occurs 09/17/2017 No Stop Date A ctive Bactrim DS 800 mg-160 mg tablet RxNorm: 284576 1 Tablet(s) PO BID 0 09/17/2017 09/23/2017 Inactive Ciprodex 0.3 %-0.1 % ear drops,suspension RxNorm: 099979 4 DROP (S) OTIC BID 09/13/2017 10/18/2017 Inactive cefdinir 250 mg/5 mL oral suspension RxNorm: 033149 12 Milliliter(s) PO QD though PEG tube 08/06/2017 08/15/2017 Inactive sertraline 50 mg tablet RxNorm: 557528 1 Tablet(s) PO QHS 08/02/2017 11/04/2017 Inactive Ciprodex 0.3 %-0.1 % ear drops,suspension RxNorm: 055666 4 DROP (S) OTIC BID 07/22/2017 08/11/2017 Inactive Singulair 10 mg tablet RxNorm: 424495 1 Tablet(s) PO QD 06/30/2017 Inactive diazepam 10 mg tablet RxNorm: 158057 TAKE 1 TABLET BY M OUTH EVERY NIGHT AT BEDTIME NEEDED 06/04/2017 07/03/2017 Inactive oxcarbazepine 300 mg/5 mL (60 mg/mL) oral suspension RxNorm: 887969 15 MILLILITER(S) PO BID 05/03/2017 12/16/2017 Inactive sertraline 50 mg tablet RxNorm: 747631 1 Tablet(s) PO QHS 05/03/2017 08/02/2017 Inactive Protonix 40 mg tablet,delayed release RxNorm: 916753 1 Tablet(s) PO or per feeding tube BID 04/26/2017 12/16/2017 Inactive Ciprodex 0.3 %-0.1 % ear drops,suspension RxNorm: 267924 4 DROP (S) OTIC BID 04/26/2017 05/23/2017 Inactive Generlac 10 gram/15 mL oral solution RxNorm: 038199 Mil liliter(s) TAKE 15 ML BY MOUTH TWO-THREE TIMES DAILY 04/08/2017 03/03/2018 Inactive Singulair 10 mg tablet RxNorm: 536690 1 Tablet(s) PO QD 03/03/2017 Inactive diazepam 10 mg tablet RxNorm: 520824 1 Tablet(s) PO QHS as needed 0 02/15/2017 06/04/2017 Inactive Singulair 10 mg tablet RxNorm: 095472 1 Tablet(s) PO QD 12/01/2016 Inactive Diflucan 150 mg tablet RxNorm: 043285 Tablet(s) Give 1 tab PO now and then repeat dose in 5 days 11/10/2016 03/31/2017 Inactive Zithromax 200 mg/5 mL oral suspension RxNorm: 473733 12.5 Dilcia liter(s) PO QD 11/10/2016 11/14/2016 Inactive Singulair 10 mg tablet RxNorm: 972312 TAKE 1 TABLET BY MOUTH ON CE DAILY 11/02/2016 12/01/2016 Inactive diazepam 10 mg tablet RxNorm: 127995 TAKE 1 TABLET BY M OUTH EVERY NIGHT AT BEDTIME NEEDED 10/21/2016 11/19/2016 Inactive sertraline 50 mg tablet RxNorm: 308787 1 Tablet(s) PO QHS 10/12/2016 01/09/2017 Inactive fluconazole 100 mg tablet RxNorm: 018233 1 Tablet(s) PO QD 09/23/19 17 09/24/2016 Inactive fluconazole 100 mg tablet RxNorm: 682485 1 Tablet(s) PO QD 09/23/19 17 09/21/2016 Inactive Bactrim DS 800 mg-160 mg tablet RxNorm: 755421 1 Tablet(s) PO BID 0 09/10/2016 09/09/2016 Inactive Bactrim DS 800 mg-160 mg tablet RxNorm: 926043 1 Tablet(s) PO BID 0 09/10/2016 09/16/2016 Inactive oxcarbazepine 300 mg/5 mL (60 mg/mL) oral suspension RxNorm: 461231 15 Milliliter(s) PO BID 09/07/2016 03/05/2017 Inactive sertraline 50 mg tablet RxNorm: 516969 1 Tablet(s) PO QHS 07/06/2016 10/03/2016 Inactive Pepcid 20 mg tablet RxNorm: 558057 Tablet(s) 1 TABLET(S) PO QHS 08/201603/08/2017 Inactive sertraline 50 mg tablet RxNorm: 960002 1 Tablet(s) PO QHS 06/08/2016 05/03/2017 Inactive Generlac 10 gram/15 mL oral solution RxNorm: 422607 Mil liliter(s) TAKE 15 ML BY MOUTH TWO-THREE TIMES DAILY 06/08/2016 09/08/2016 Inactive Pepcid 20 mg tablet RxNorm: 479158 1 TABLET(S) PO QHS 06/04/201607/2016 Inactive fluconazole 100 mg tablet RxNorm: 623555 1 Tablet(s) QD through PEG tube 05/13/2016 12/01/2017 Inactive Diflucan 150 mg tablet RxNorm: 392690 Give 1 tab PO now and then repeat dose in 5 days 03/19/2016 11/09/2016 Inactive ceftriaxone 1 gram solution for injection RxNorm: 3593542 1 Gram(s) IM QD Wednesday and Wednesday03/19/2016 11/09/2016 Inactive lidocaine 10 mg/mL (1 %) injection solution RxNorm: 4585690 Use as directed to reconstitute Rocephin when needed 03/19/2016 12/13/2017 Inactive Generlac 10 gram/15 mL oral solution RxNorm: 307257 JOE E 15 ML BY MOUTH TWO- THREE TIMES DAILY 03/19/2016 06/07/2016 Inactive oxcarbazepine 300 mg/5 mL oral suspension RxNorm: 887470 15 Milliliter(s) PO BID 03/13/2016 09/07/2016 Inactive Ciprodex 0.3 %-0.1 % ear drops,suspension RxNorm: 934640 4 DROP (S) OTIC BID 03/09/2016 03/15/2016 Inactive cefdinir 250 mg/5 mL oral suspension RxNorm: 478171 11. 75 Milliliter(s) PO QD though PEG tube 03/02/2016 03/08/2016 Inactive cefdinir 250 mg/5 mL oral suspension RxNorm: 175231 11. 75 Milliliter(s) PO QD though PEG tube 02/24/2016 03/01/2016 Inactive cefdinir 250 mg/5 mL oral suspension RxNorm: 773156 11. 75 Milliliter(s) PO QD though PEG tube 02/24/2016 02/23/2016 Inactive Ciprodex 0.3 %-0.1 % ear drops,suspension RxNorm: 475292 4 Drop (s) OTIC BID 02/24/2016 03/01/2016 Inactive Generlac 10 gram/15 mL oral solution RxNorm: 326993 JOE E 15 ML BY MOUTH TWICE DAILY 02/17/2016 03/18/2016 Inactive Generlac 10 gram/15 mL oral solution RxNorm: 271490 15 Millilit er(s) PO BID 01/23/2016 02/16/2016 Inactive Pepcid 20 mg tablet RxNorm: 949423 1 TABLET(S) PO QHS 01/13/201605/07 Inactive Ciprodex 0.3 %-0.1 % ear drops,suspension RxNorm: 872530 4 Drop (s) OTIC BID 12/23/2015 12/29/2015 Inactive sertraline 50 mg tablet RxNorm: 850798 1 Tablet(s) PO QHS 12/16/2015 06/07/2016 Inactive Zithromax 500 mg tablet RxNorm: 130470 1 Tablet(s) PO QD 12/16/2015 0 12/22/2015 Inactive Pepcid 20 mg tablet RxNorm: 252753 1 Tablet(s) PO QHS 12/16/201501/02 Inactive Zithromax 500 mg tablet RxNorm: 747244 1 Tablet(s) PO QD 11/12/2015 0 11/18/2015 Inactive Singulair 10 mg tablet RxNorm: 845952 1 Tablet(s) PO BID 10/16/2015 0 11/11/2015 Inactive diazepam 10 mg tablet RxNorm: 308723 1 Tablet(s) PO QHS 10/07/2015 Inactive diazepam 10 mg tablet RxNorm: 791454 1 Tablet(s) PO QHS 10/07/2015 Inactive fexofenadine 30 mg/5 mL oral suspension RxNorm: 594830 10 Milliliter(s) PO one to two times daily PRN allergies 09/20/2015 12/15/2015 Inactive ceftriaxone 1 gram solution for injection RxNorm: 1080851 1 Gram (s) IM QD 09/20/2015 09/21/2015 Inactive Ciprodex 0.3 %-0.1 % ear drops,suspension RxNorm: 616359 4 Drop (s) OTIC BID 09/20/2015 10/03/2015 Inactive Protonix 40 mg tablet,delayed release RxNorm: 865280 1 Tablet(s) PO or per feeding tube BID 08/21/2015 12/18/2015 Inactive Carafate 100 mg/mL oral suspension RxNorm: 605362 10 Mi lliliter(s) Miscellaneous per feeding tube AC & HS 08/21/2015 09/19/2015 Inactive Zyrtec 10 mg tablet RxNorm: 1286705 1 Tablet(s) PO QD No Start Date Active diazepam 20 mg rectal kit RxNorm: 658591 RTL as needed No Start Date Active Lortab Elixir 10 mg-300 mg/15 mL oral solution RxNorm: 77435 45 8 PO Q6-8H as needed No Start Date Active ondansetron HCl 4 mg/5 mL oral solution RxNorm: 426063 10 Milliliter(s) PO as needed and through tube No Start Date Active sertraline 50 mg tablet RxNorm: 868370 1 Tablet(s) PO QD No Start D ate 12/15/2015 Inactive Brittany 180 mg tablet RxNorm: 490104 1 Tablet(s) PO QD No Start Date 06/12/2018 Inactive Generlac 10 gram/15 mL oral solution RxNorm: 043601 15 Millilit er(s) PO BID No Start Date 01/22/2016 Inactive oxcarbazepine 300 mg/5 mL oral suspension RxNorm: 410921 13.5 Milliliter(s) PO QAM and 15ml in the evening No Start Date 12/15/2015 Inactive Singulair 10 mg tablet RxNorm: 668254 1 Tablet(s) PO QD No Start Da te 11/30/2016 Inactive meclizine 12.5 mg tablet RxNorm: 520365 1 Tablet(s) PO TID as needed for dizziness No Start Date 09/13/2017 Inactive meclizine 12.5 mg tablet RxNorm: 922722 1 Tablet(s) PO BID No Start Date 12/12/2017 Inactive fluconazole 100 mg tablet RxNorm: 897824 1 Tablet(s) QD through PEG tube No Start Date 05/12/2016 Inactive Flomax 0.4 mg capsule RxNorm: 292086 1 Capsule(s) PO QD No Start Da te 06/12/2018 Inactive diazepam 10 mg tablet RxNorm: 149953 1 Tablet(s) PO QHS as needed N o Start Date 02/14/2017 Inactive Generlac 10 gram/15 mL oral solution RxNorm: 464022 15 Milliliter(s) PO two to three times daily No Start Date 03/02/2018 Inactive oxcarbazepine 300 mg/5 mL oral suspension RxNorm: 011070 15 Milliliter(s) PO BID No Start Date 12/15/2017 Inactive Medication Administered No Medication Administered data Immunizations Vaccine Codes Date Status Influenza CVX: 141 04/21/2019 Results No Results data Procedures Procedure Codes Date DEXAMETHASONE SODIUM PHOS CPT-4: J1100 10/06/2019 THER/PROPH/DIAG INJ SC/IM CPT-4: 69134 10/06/2019 DEXAMETHASONE SODIUM PHOS CPT-4: J1100 05/03/2019 THER/PROPH/DIAG INJ SC/IM CPT-4: 61866 05/03/2019 CEFTRIAXONE SODIUM INJECTION CPT-4: J0696 03/19/2016 THER/PROPH/DIAG INJ SC/IM CPT-4: 22262 03/19/2016 DEXAMETHASONE SODIUM PHOS CPT-4: J1100 11/12/2015 THER/PROPH/DIAG INJ SC/IM CPT-4: 16055 11/12/2015 CEFTRIAXONE SODIUM INJECTION CPT-4: J0696 09/20/2015 THER/PROPH/DIAG INJ SC/IM CPT-4: 03618 09/20/2015 THER/PROPH/DIAG INJ SC/IM CPT-4: 73541 09/10/2015 METHYLPREDNISOLONE 40 MG INJ CPT-4: J1030 09/10/2015 TRIAMCINOLONE ACET INJ NOS CPT-4: J3301 09/10/2015 Vital Signs Date Vital 07/25/2019 Blood Pressure 1: 116/80 Code: 8480-6 BMI: 23.2 Code: 51836-8 Heart Rate 1: 81 bpm Height: 4'5" Respiratory Rate: 16 bpm SpO2: 100% Tempera ture: 36.8 (C) / 98.2 (F) Weight: 92 lbs 06/12/2019 Blood Pressure 1: 112/74 Code: 8480-6 BMI: 23.2 Code: 48592-5 Heart Rate 1: 102 bpm Height: 4'5" [...] 1: 114/70 Code: 8480-6 BMI: 23.1 Code: 35518-2 Heart Rate 1: 80 bpm Height: 4'6" [...] visit Encounters Encounter Performer Location Codes Date ([id number]) NURSE/OUTPATIENT VISIT EST Diagnosis: Allergic rhinitis, unspecified[ICD10: J30.9] Keily ARANGO DO [facility] CPT-4: 32890 10/06/2019 ([id number]) OFFICE/OUTPATIENT VISIT EST Diagnosis: Allergic rhinitis[ICD10: J30.9] Fatou Limathe [facility] CPT-4: 63452 10/05/2019 ([id number]) OFFICE/OUTPATIENT VISIT EST Diagnosis: Sinusitis[ICD10: J32.9] Fatou GILBERT [facility] CPT-4: 64773 07/25/2019 ([id number]) PREV VISIT EST AGE 18-39 Diagnosis: Encounter for general adult medical examination with abnormal findings[ICD10: Z00.01] Diagnosis: Chronic pancreatitis[ICD10: K86.1] Diagnosis: Cerebral palsy, unspecified[ICD10: G80.9] Keily ARANGO [facility] CPT-4: 07605 06/12/2019 ([id number]) OFFICE/OUTPATIENT VISIT EST Diagnosis: Pneumonia, organism unspecified[ICD10: J18.9] Diagnosis: Breast mass, right[ICD10: N63.10] Keily ARANGO [facility] CPT-4: 69314 05/08/2019 ([id number]) OFFICE/OUTPATIENT VISIT EST Diagnosis: Allergic rhinitis due to pollen[ICD10: J30.1] Diagnosis: Otitis media, unspecified, right ear[ICD10: H66.91] Fatou ARANGO DO [facility] CPT-4: 93925 05/03/2019 ([id number]) OFFICE/OUTPATIENT VISIT EST Diagnosis: Irritability and anger[ICD10: R45.4] Nataliia Hsieh BLANCA ARANGO [facility] CPT-4: 36344 11/25/2018 ([id number]) OFFICE/OUTPATIENT VISIT EST Diagnosis: Acute suppurative otitis media without spontaneous rupture of ear drum, bilateral[ICD10: H66.003] Fatou ARANGO DO [facility] CPT-4: 40399 06/13/2018 ([id number]) OFFICE/OUTPATIENT VISIT EST Diagnosis: Other fatigue[ICD10: R53.83] Diagnosis: Anuria and oliguria[ICD10: R34] Diagnosis: Acute gastritis without bleeding[ICD10: K29.00] Fatou ARANGO DO [facility] CPT-4: 10700 01/04/2018 ([id number]) OFFICE/OUTPATIENT VISIT EST Diagnosis: Acute bronchitis, unspecified[ICD10: J20.9] Fatou ARANGO DO [facility] CPT-4: 22584 12/31/2017 ([id number]) PREV VISIT EST AGE 18-39 Diagnosis: Encounter for general adult medical examination without abnormal findings[ICD10: Z00.00] Diagnosis: Severe intellectual disabilities[ICD10: F72] Diagnosis: Allergic rhinitis due to pollen[ICD10: J30.1] Diagnosis: Epilepsy, unspecified, intractable, without status epilepticus[ICD10: G40.919] Diagnosis: Gastro-esophageal reflux disease without esophagitis[ICD10: K21.9] [facility] CPT-4: 47602 12/14/2017 ([id number]) OFFICE/OUTPATIENT VISIT EST Diagnosis: Allergic rhinitis due to pollen[ICD10: J30.1] Diagnosis: Epilepsy, unspecified, intractable, without status epilepticus[ICD10: G40.919] Keily [facility] CPT-4: 13474 12/02/2017 ([id number]) OFFICE/OUTPATIENT VISIT EST Diagnosis: Other allergic rhinitis[ICD10: J30.89] Fatou [facility] CPT-4: 45683 10/12/2017 OFFICE/OUTPATIENT VISIT EST Diagnosis: Acute suppurative otitis media without spontaneous rupture of ear drum, recurrent, left ear[ICD10: H66.005] Diagnosis: Epilepsy, unspecified, intractable, without status epilepticus[ICD10: G40.919] Diagnosis: Hesitancy of micturition[ICD10: R39.11] Fatou ARANGO DO [facility] CPT-4: 32816 09/17/2017 OFFICE/OUTPATIENT VISIT EST Diagnosis: Otitis media, unspecified, left ear[ICD10: H66.92] Fatou [facility] CPT-4: 61567 08/06/2017 ([id number]) OFFICE/OUTPATIENT VISIT EST Diagnosis: Vertigo of central origin, 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.49] Diagnosis: Dizziness and giddiness[ICD10: R42] Keily NARANJO Diamante [facility] CPT-4: 53980 04/01/2017 OFFICE/OUTPATIENT VISIT EST Diagnosis: Vomiting, unspecified[ICD10: R11.10] Diagnosis: 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 CPT[facility]: 57930 11/10/2016 ([id number]) OFFICE/OUTPATIENT VISIT EST Diagnosis: 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] Diagnosis: Unspecified ovarian cyst, right side[ICD10: N83.201] Diagnosis: Cyst of kidney, 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] Keily CERON Diamante [facility] CPT-4: 73238 08/13/2016 ([id number]) OFFICE/OUTPATIENT VISIT EST Diagnosis: Rash and other nonspecific skin eruption[ICD10: R21] Aziza Magallanes KEILY Diamante [facility] CPT-4: 32799 03/27/2016 ([id number]) OFFICE/OUTPATIENT VISIT EST Diagnosis: Urinary tract infection, site not specified[ICD10: N39.0] Keily LINARES Diamante [facility] CPT-4: 23626 03/23/2016 ([id number]) OFFICE/OUTPATIENT VISIT EST Diagnosis: Retention of urine, unspecified[ICD10: R33.9] Diagnosis: Dysuria[ICD10: R30.0] Diagnosis: Constipation, unspecified[ICD10: K59.00] Aziza Magallanes SIOMARA LAWTON Diamante [facility] CPT-4: 50638 03/19/2016 ([id number]) OFFICE/OUTPATIENT VISIT EST Diagnosis: Acute sinusitis, unspecified[ICD10: J01.90] Keily [facility] CPT-4: 88796 03/02/2016 OFFICE/OUTPATIENT VISIT EST Diagnosis: Other fatigue[ICD10: R53.83] Diagnosis: Retention of urine, unspecified[ICD10: R33.9] Diagnosis: Dysuria[ICD10: R30.0] Diagnosis: Generalized abdominal pain[ICD10: R10.84] 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] Aziza [facility] CPT-4: 95395 02/24/2016 ([id number]) OFFICE/OUTPATIENT VISIT EST Diagnosis: Chronic mucoid otitis media, right ear[ICD10: H65.31] Diagnosis: Allergic rhinitis, unspecified[ICD10: J30.9] Diagnosis: 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] Keily [facility] CPT-4: 54129 12/16/2015 ([id number]) OFFICE/OUTPATIENT VISIT EST Diagnosis: Allergic rhinitis, unspecified[ICD10: J30.9] Diagnosis: Acute recurrent sinusitis, unspecified[ICD10: J01.91] Keily [facility] CPT-4: 31661 11/12/2015 ([id number]) OFFICE/OUTPATIENT VISIT EST Diagnosis: Other seasonal allergic rhinitis[ICD10: J30.2] Diagnosis: Nausea with vomiting, unspecified[ICD10: R11.2] Diagnosis: Epigastric pain[ICD10: R10.13] Aziza [facility] CPT-4: 11359 10/16/2015 OFFICE/OUTPATIENT VISIT EST Diagnosis: Encounter for follow-up examination after completed treatment for conditions other than malignant neoplasm[ICD10: Z09] Diagnosis: Generalized abdominal pain[ICD10: R10.84] Keily [facility] CPT-4: 51624 09/23/2015 ([id number]) OFFICE/OUTPATIENT VISIT EST Diagnosis: Otitis media, unspecified, right ear[ICD10: H66.91] Diagnosis: Constipation, unspecified[ICD10: K59.00] Diagnosis: Allergic rhinitis, unspecified[ICD10: J30.9] Aziza [facility] CPT-4: 68874 09/20/2015 OFFICE/OUTPATIENT VISIT EST Diagnosis: Allergic rhinitis, unspecified[ICD10: J30.9] Diagnosis: Unspecified perforation of tympanic membrane, right ear[ICD10: H72.91] Bibiana [facility] CPT-4: 96089 09/10/2015 OFFICE/OUTPATIENT VISIT NEW Diagnosis: Epilepsy, unspecified, intractable, without status epilepticus[ICD10: G40.919] Diagnosis: Gastric ulcer, unspecified as acute or chronic, without hemorrhage or perforation[ICD10: K25.9] Diagnosis: Severe intellectual disabilities[ICD10: F72] Keily [facility] CPT-4: 12849 08/21/2015 Plan of Care Planned Activity Notes [...] ICD-10 : J30.9 10/05/2019 Appointment: Fatou Onofre [address] [place] [address] [place], [place] [address]a [address] TELEMEDICINE 10/05/2019 Visit Diagnosis Plan: Sinusitis Discussion: due to dean h of illness and symptoms, cefdinir prescribed to take as directed. call office with any new or worsening symptoms. ICD-9 : 473.9 ICD-10 : J32.9 07/25/2019 Appointment: Fatou Onofre [address] [place], [place] [address] [address] ACUTE ILLNESS 07/25/2019 Patient Education: cefdinir- [employer] Coupon [id number] [email or web address] Completed 07/25/2019 Visit Diagnosis Plan: Chronic pancreatitis Discussion: Continue zenpep and recheck CMP with amylase/lipase in 1 month ICD-9 : 577.1 ICD-10 : K86.1 06/12/2019 Appointment: [facility] [phone] [facility] [facility] 06/12/2019 Visit Diagnosis Plan: [...] : J18.9 05/08/2019 Appointment: Keily Arango WPtel[facility] [facility] Up 05/08/2019 Visit Diagnosis Plan: [...] ICD-10 : J30.1 05/03/2019 Appointment: Fatou Onofre [address] [place], [place] [address] ACUTE ILLNESS 05/03/2019 Patient Education: amoxicillin- [employer] Coupon [id number] [email or web address]/samplesc/resources/getResource/61/[email or web address] Completed 05/03/2019 Visit Diagnosis Plan: Irritability and [...] ICD-10 : R45.4 11/25/2018 Appointment: Nataliia Hsieh [facility] [address] ACUTE ILLNESS 11/25/2018 Visit Diagnosis Plan: Acute suppurative otitis media without spontaneous rupture of ear drum, bilateral Discussion: cefdinir for 10 days. if wor sening symptoms later this week, call clinic. push fluids and tylenol/ibuprofen prn pain or fever. ICD-9 : 382.00 ICD-10 : H66.003 06/13/2018 Appointment: Fatou Onofre [address] [place] [address] ACUTE ILLNESS 06/13/2018 Visit Diagnosis Plan: Anuria [...] ICD-10 : R53.83 01/04/2018 Appointment: Fatou Onofre [address] [place] [address] ACUTE ILLNESS 01/04/2018 Patient Education: Patient Medication Summary Completed 01/04/2018 Visit Diagnosis Plan: Acute bronchitis, unspecified Di scussion: zithromax prescribed to take as directed. continue with allergy meds including flonase to help dry congestion. call office next week if new or worsening symptoms. ICD-9 : 466.0 ICD-10 : J20.9 12/31/2017 Appointment: Fatou Onofre [address] [place] [address] ACUTE ILLNESS 12/31/2017 Patient Education: Patient Medication Summary Completed 12/31/2017 Visit Diagnosis Plan: Epilepsy, unspecif ied, intractable, without status epilepticus Discussion: Stable on current regimen ICD-9 : 345.91 ICD-10 : G40.919 12/14/2017 Visit Diagnosis Plan: Encounter for [facility] medical examination without abnormal findings Discussion: Had recent lab done Follow Up: 3 months ICD-9 : V70.9 ICD-10 : Z00.00 12/14/2017 Visit Diagnosis Plan: Allergic rhinitis due to pollen Discussion: Continue current meds Change night time protonix to pepcid for total histamine blockade ICD-9 : 477.9 ICD-10 : J30.1 12/14/2017 Appointment: Keily Arango WPtel: [address] [place] [address] CHECK UP 12/14/2017 Patient Education: Patient Medication [...] J30.1 12/02/2017 Appointment: Keily Arango WPtel: [phone] ACUTE ILLNESS 12/02/2017 Patient Education: Patient Medication Summary Completed 12/02/2017 Visit Diagnosis Plan: Other allergic rhinitis Discussi on: symptoms most likely caused from allergies. patient sent to hospital for decadron injection. instructed to restart patient's flonase at home. if new or worsening symptoms, call or rtc. ICD-9 : 477.8 ICD-10 : J30.89 10/12/2017 Appointment: Fatou Onofre [address] [place], [place] [address] ACUTE ILLNESS 10/12/2017 Patient Education: Patient Medication [...] 345.91 ICD-10 : G40.919 09/17/2017 Appointment: Fatou Onorfe [address] [place] [address] ACUTE ILLNESS 09/17/2017 Patient Education: Patient Medication Summary Completed 09/17/2017 Visit Diagnosis Plan: Otitis media, unspecified, left ear Discussion: cefdinir prescribed daily for 10 days. instructed to administer tylenol/ibuprofen for pain or fever. if no improvement, or worsening symptoms, call or rtc. ICD-9 : 380.14 ICD-10 : H66.92 08/06/2017 Appointment: Fatou Onofre [address] [place] [address] ACUTE ILLNESS 08/06/2017 Patient Education: Patient Medication Summary Completed 08/06/2017 Patient Education: Patient Medication Summary Completed 08/02/2017 Patient Education: Patient Medication Summary Completed 04/21/2017 Care Plan: MRI BRAIN STEM W/O DYE [facility] : 83344-0 Pending 04/21/2017 Patient Education: Patient Medication Summary Completed 04/20/2017 Care Plan: MRI BRAIN STEM W/O DYE LOINC : 26431-2 Pending 04/20/2017 Visit Diagnosis Plan: Vertigo of central origin, unspe cified ear Discussion: Continue meclizine at 12.5mg po BID for 2 more weeks then go to 12.5mg daily for 2 weeks then 6.25mg daily for 2 weeks then stop Notify if any symptoms return with weaning process ICD-9 : 386.2 ICD-10 : H81.49 04/01/2017 Appointment: Keily Arango WPtel: [address] [place], [place] [phone] FOLLOW UP 04/01/2017 Patient Education: Patient Medication Summary Completed 04/01/2017 Patient Education: Patient Medication Summary Completed 03/09/2017 Care Plan: CT HEAD/BRAIN W/O DYE LOINC : 42767-3 Pending 03/09/2017 Visit Plan: It's difficult to [...] medications indicated. 03/01/2017 Appointment: Emely Hdz WPtel: [address] [place] [address] ACUTE ILLNESS 03/01/2017 Patient Education: Patient Medication Summary Completed 03/01/2017 Patient Education: Patient Medication Summary Completed 12/17/2016 Visit Diagnosis Plan: Allergic rhinitis due to pollen Discussion: Continue zyrtec/singulair ICD-9 : 477.9 ICD-10 : J30.1 11/10/2016 Visit Diagnosis Plan: Acute and subacute allergic otitis media (mucoid) (sanguinous) (serous), left ear Discussion: Zithromax ICD-9 : 381.05 ICD-10 : H65.112 11/10/2016 Appointment: Keily Arango WPtel: [facility] [place] [phone] ACUTE ILLNESS 11/10/2016 Patient Education: Patient Medication Summary Completed 11/10/2016 Patient Education: Patient Medication Summary Completed 09/07/2016 Care Plan: URINALYSIS AUTO W/[place] : 15573-1 Pending 09/07/2016 Visit Diagnosis Plan: Unspecified ovarian [...] : N20.0 08/13/2016 Appointment: Keily Arango WPtel: [address] [place] [address] 08/12 confirmed-sp FOLLOW UP 08/13/2016 Patient Education: Patient Medication Summary Completed 08/13/2016 Patient Education: Patient Medication Summary Completed 05/19/2016 Care Plan: X-RAY EXAM OF FOOT left foot LOINC : 26 095-0 Pending 05/19/2016 Visit Plan: Discussed with Dr Conchita MAGANA C to be drawn Order sent to Will call with results 03/27/2016 Appointment: Aziza Magallanes [address] [place] [address] ACUTE ILLNESS 03/27/2016 Patient Education: Patient Medication Summary Completed 03/27/2016 Visit Plan: Go for dose of rocephin 1gm IM today and tomorrow then done Diflucan 150mg x1 today Discussed with mom via phone about urology fwup--she will talk with her and let us know 03/23/2016 Appointment: Keily Arango WPtel: [address] [place], [place] [phone] 03/23 confirmed ~sl FOLLOW UP 03/23/2016 Patient Education: Patient Medication Summary Completed 03/23/2016 Visit Plan: Per Dr Arango, straight cat h for UA and culture today Ok to have a standing order for further UA needs at for straight cath Rocephin IM today and daily through Wednesday Mom has arranged a family friend that is an [employer] to give Wednesday and Sundays injections - [...] us know 03/19/2016 Appointment: Aziza Magallanes [address] [facility] ACUTE ILLNESS 03/19/2016 Patient Education: Patient Medication Summary Completed 03/19/2016 Visit Plan: 1 more week of cefdinir 03/02/2016 Appointment: Keily Arango WPtel: [address] [place], [place] [phone] 03/02 confirmed~sl WORK IN 03/02/2016 Patient Education: [...] seen if worsening 02/24/2016 Appointment: Aziza Magallanes [address] [place] [phone] ACUTE ILLNESS 02/24/2016 Patient Education: Patient Medication Summary Completed 02/24/2016 Care Plan: CHEST X-RAY 2VW FRONTAL&LATL LOINC : 76275-5 Pending 02/24/2016 Care Plan: X-RAY EXAM OF ABDOMEN LOINC : 36915-1 Pending 02/24/2016 Visit Plan: Repeat zithromax x1 week Cip rodex to right ear x1 week Add Pepcid q HS x2-4 weeks for total histamine blockade and for extra stomach protection while on zithromax 12/16/2015 Appointment: Keily Arango WPtel: [phone] [facility] US 6/9 lm~sl 6/10 lm ~sl FOLLOW UP 12/16/2015 Patient Education: Patient Medication Summary Completed 12/16/2015 Patient Education: [facility] - Saving Auto[employer]j - Sertraline HCL - 18-64 - Dynamic Portal ID Completed 12/16/2015 Visit Plan: Saline nasal flushes prn. Ty lenol/Motrin prn headache. Notify if persists/symptoms worsens Dexamethasone given 11/12/2015 Appointment: Keily Arango WPtel: [phone] [facility] [place] 5/9 lm~sl 5/10 lm~sl 5/10 [...] visits for Belkys 10/16/2015 Appointment: Aziza Magallanes [address] [place], [place] [id number] ACUTE ILLNESS 10/16/2015 Patient Education: Patient Medication Summary Completed 10/16/2015 Appointment: Aziza Magallanes [address] [place], [place] [phone] [place] canceled, feeling better CANCELED 016 Visit Plan: No further abx needed Go mariela k to jevity for next 3 days and restart carafate Notify if abdominal pain worsens 09/23/2015 Appointment: Keily Arango WPtel: [phone] [facility] 09/19 confirmed-sp FOLLOW UP 09/23/2015 Patient Education: [...] sent to [facility] since [facility] does not have in stock. [...] try for now. 09/20/2015 Appointment: Aziza Magallanes [address] [place] [phone] ACUTE ILLNESS 09/20/2015 Patient Education: Patient Medication Summary Completed 09/20/2015 Visit Plan: Depo Medrol 40mg/ Kenalog 40 mg IM today Resume Ciprodex otic gtts. bid to Rt. ear 09/10/2015 Appointment: Bibiana Garg WPtel: [phone] [facility] 09/08 confirmed-sp ACUTE ILLNESS 09/10/2015 Patient Education: Patient Medication Summary Completed 09/10/2015 Visit Plan: Increase Protonix to 40mg po BID for 1month Continue carafate at q AC dosing for full month then wean off Jevity for 2 more days then advance diet if able Continue current meds 08/21/2015 Appointment: Keily Arango WPtel: [phone] [facility] [place] NEW PATIENT 08/21/2015 Patient Education: Patient [...] arranged a family friend that is an WE[employer] SOFTWARE [employer] to give Wednesday and Sundays injections - [...] sent to [facility] since [facility] does not have in stock. [...]
--- OUTSIDE RECORDS SUMMARY | 2019-11-10 19:33 | XMS REPORT | CCD ---
Author Author Belkys Arango D.O. 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 Name Role Phone Keily Arango D.O., PP Unavailable CCM Unavailable Summary Purpose Interface Exchange Insurance Providers Payer name Policy type / Coverage type Covered green party ID Effective Begin Date Effective End Date [employer] [facility] Medicaid [id number] U nknown Family History Family History data not found Social History Social History Element Codes Description Effective Dates Marital status Unknown Single 08/21/2015 Employment Unknown Currently unemployed Physically handicapped 08/21/[address]: 946074807 Has never smoked or chewed tobacco 08/21/[address]: 077432292 Never drinks alcohol 2015 Allergies, Adverse Reactions, [...] Ciprodex 0.3 %-0.1 % ear drops,suspension RxNorm: 349774 SHAKE LIQUID AND INSTILL 4 DROPS IN AFFECTED EAR(S) TWICE DAILY 09/22/2019 10/15/2019 A ctive diazepam 10 mg tablet RxNorm: 524201 TAKE 1 TABLET BY M OUTH EVERY NIGHT AT BEDTIME NEEDED 09/11/2019 10/10/2019 Active meclizine 12.5 mg tablet RxNorm: 230285 TAKE 1 TABLET B Y MOUTH THREE TIMES DAILY NEEDED 08/31/2019 10/29/2019 Active Ciprodex 0.3 %-0.1 % ear drops,suspension RxNorm: 788904 SHAKE LIQUID AND INSTILL 4 DROPS IN AFFECTED EAR(S) TWICE DAILY 08/31/2019 09/07/2019 I nactive Ciprodex 0.3 %-0.1 % ear drops,suspension RxNorm: 721252 SHAKE LIQUID AND INSTILL 4 DROPS IN AFFECTED EAR(S) TWICE DAILY 08/11/2019 08/18/2019 I nactive meclizine 12.5 mg tablet RxNorm: 360691 TAKE 1 TABLET B Y MOUTH THREE TIMES DAILY NEEDED 08/04/2019 08/30/2019 Inactive cefdinir 250 mg/5 mL oral suspension RxNorm: 330873 12 Milliliter(s) Oral QD though PEG tube 07/25/2019 08/03/2019 Inactive Zenpep 40,000 unit-126,000 unit-168,000 unit capsule,d elayed release RxNorm: 3729759 1 Capsule(s) Oral AC 07/10/2019 11/06/2019 Active famotidine 20 mg tablet RxNorm: 389919 TAKE 1 TABLET BY MOUTH EVERY NIGHT AT BEDTIME 07/09/2019 01/04/2020 Active sertraline 50 mg tablet RxNorm: 652608 TAKE 1 TABLET BY MOUTH EVERY NIGHT AT BEDTIME 07/09/2019 09/06/2019 Inactive Zenpep 40,000 unit-126,000 unit-168,000 unit capsule,d elayed release RxNorm: 1255342 1 Capsule(s) Oral AC 06/12/2019 07/09/2019 Inactive Zenpep 40,000 unit-126,000 unit-168,000 unit capsule,d elayed release RxNorm: 3198292 1 Capsule(s) Oral AC 05/24/2019 05/23/2019 Inactive Zenpep 40,000 unit-126,000 unit-168,000 unit capsule,d elayed release RxNorm: 0539512 1 Capsule(s) Oral AC 05/24/2019 06/11/2019 Inactive Ciprodex 0.3 %-0.1 % ear drops,suspension RxNorm: 503602 DROP(S) 4 DROP(S) OTIC BID 05/22/2019 06/18/2019 Inactive oxcarbazepine 300 mg/5 mL (60 mg/mL) oral suspension RxNorm: 985857 15 Milliliter(s) Oral two times a day 05/08/2019 11/03/2019 Active meclizine 12.5 mg tablet RxNorm: 785702 1 TABLET(S) PO TID NEEDE D 05/05/2019 08/02/2019 Inactive change in quantity Zithromax 200 mg/5 mL oral suspension RxNorm: 492885 12.5 Dilcia liter(s) Oral QD 05/04/2019 05/09/2019 Inactive amoxicillin 400 mg/5 mL oral suspension RxNorm: 316469 10 Milliliter(s) Oral two times a day 05/03/2019 05/13/2019 Inactive Singulair 10 mg tablet RxNorm: 709897 1 TABLET(S) PO QD 03/28/2019 Inactive Macrobid 100 mg capsule RxNorm: 171144 1 Capsule(s) PO BID 03/16/2003/22/2019 Inactive meclizine 12.5 mg tablet RxNorm: 604585 1 Tablet(s) PO TID as neede d 03/10/2019 05/04/2019 Inactive change in quantity Ciprodex 0.3 %-0.1 % ear drops,suspension RxNorm: 815214 DROP(S) 4 DROP(S) OTIC BID 03/08/2019 04/04/2019 Inactive oxcarbazepine 300 mg/5 mL (60 mg/mL) oral suspension RxNorm: 008490 15 Milliliter(s) PO BID 03/07/2019 05/07/2019 Inactive Macrobid 100 mg capsule RxNorm: 855730 1 Capsule(s) PO BID 02/21/2003/01/2019 Inactive Macrobid 100 mg capsule RxNorm: 590701 1 Capsule(s) PO BID 02/21/2002/19/2019 Inactive meclizine 12.5 mg tablet RxNorm: 975132 1 Tablet(s) PO TID as neede d 02/06/2019 03/07/2019 Inactive change in quantity Ciprodex 0.3 %-0.1 % ear drops,suspension RxNorm: 579522 DROP(S) 4 DROP(S) OTIC BID 01/30/2019 02/12/2019 Inactive diazepam 10 mg tablet RxNorm: 075018 1 Tablet(s) PO QHS as needed 0 01/27/2019 09/10/2019 Inactive sertraline 50 mg tablet RxNorm: 244406 1 Tablet(s) PO QHS 12/29/2018 06/26/2019 Inactive famotidine 20 mg tablet RxNorm: 238447 1 Tablet(s) PO QHS 12/29/2018 06/26/2019 Inactive Ciprodex 0.3 %-0.1 % ear drops,suspension RxNorm: 841972 DROP(S) 4 DROP(S) OTIC BID 12/14/2018 12/27/2018 Inactive Generlac 10 gram/15 mL oral solution RxNorm: 345090 15 Milliliter(s) PO TWO TO THREE TIMES DAILY 12/06/2018 06/03/2019 Inactive Protonix 40 mg tablet,delayed release RxNorm: 370360 1 Tablet(s) PO or per feeding tube BID 11/24/2018 05/22/2019 Inactive meclizine 12.5 mg tablet RxNorm: 581444 1 Tablet(s) PO TID as neede d 11/11/2018 02/06/2019 Inactive change in quantity Ciprodex 0.3 %-0.1 % ear drops,suspension RxNorm: 860350 DROP(S) 4 DROP(S) OTIC BID 11/08/2018 11/21/2018 Inactive diazepam 10 mg tablet RxNorm: 968965 1 Tablet(s) PO QHS as needed 0 10/21/2018 11/19/2018 Inactive Generlac 10 gram/15 mL oral solution RxNorm: 244823 Mil liliter(s) 15 MILLILITER(S) PO TWO TO THREE TIMES DAILY 10/07/2018 11/05/2018 Inacti ve Ciprodex 0.3 %-0.1 % ear drops,suspension RxNorm: 185519 DROP(S) DROP(S) 4 DROP(S) OTIC BID 08/26/2018 03/15/2019 Inactive meclizine 12.5 mg tablet RxNorm: 041587 1 TABLET(S) PO TID NEEDE D 07/25/2018 10/22/2018 Inactive change in quantity oxcarbazepine 300 mg/5 mL (60 mg/mL) oral suspension RxNorm: 056431 15 Milliliter(s) PO BID 07/08/2018 07/07/2018 Inactive oxcarbazepine 300 mg/5 mL (60 mg/mL) oral suspension RxNorm: 990932 15 Milliliter(s) PO BID 07/08/2018 01/03/2019 Inactive sertraline 50 mg tablet RxNorm: 771550 1 TABLET(S) PO QHS 07/06/2018 12/28/2018 Inactive Singulair 10 mg tablet RxNorm: 062809 1 TABLET(S) PO QD 06/24/2018 Inactive Ciprodex 0.3 %-0.1 % ear drops,suspension RxNorm: 286349 DROP(S) 4 DROP(S) OTIC BID 06/20/2018 06/19/2018 Inactive Ciprodex 0.3 %-0.1 % ear drops,suspension RxNorm: 823986 Drop(s) DROP(S) 4 DROP(S) OTIC BID 06/20/2018 07/03/2018 Inactive cefdinir 250 mg/5 mL oral suspension RxNorm: 124322 12 Milliliter(s) PO QD though PEG tube 06/13/2018 06/22/2018 Inactive famotidine 20 mg tablet RxNorm: 635377 1 Tablet(s) PO QHS 05/31/2018 11/26/2018 Inactive famotidine 40 mg/5 mL (8 mg/mL) oral suspension RxNorm: 3102 74 2.5 Milliliter(s) PO QHS 04/29/2018 06/12/2018 Inactive meclizine 12.5 mg tablet RxNorm: 738308 1 TABLET(S) PO TID NEEDE D 04/25/2018 07/23/2018 Inactive change in quantity Generlac 10 gram/15 mL oral solution RxNorm: 807192 Mil liliter(s) 15 MILLILITER(S) PO TWO TO THREE TIMES DAILY 04/04/2018 05/03/2018 Inacti ve Ciprodex 0.3 %-0.1 % ear drops,suspension RxNorm: 425652 Drop(s) 4 DROP(S) OTIC BID 04/04/2018 04/17/2018 Inactive diazepam 10 mg tablet RxNorm: 642787 1 Tablet(s) PO QHS as needed 1 05/03/2018 Inactive famotidine 40 mg/5 mL (8 mg/mL) oral suspension RxNorm: 3102 74 2.5 Milliliter(s) PO QHS 04/04/2018 04/28/2018 Inactive Generlac 10 gram/15 mL oral solution RxNorm: 938814 15 MILLILITER(S) PO TWO TO THREE TIMES DAILY 03/24/2018 04/03/2018 Inactive Singulair 10 mg tablet RxNorm: 363916 1 TABLET(S) PO QD 03/18/2018 Inactive Ciprodex 0.3 %-0.1 % ear drops,suspension RxNorm: 656555 Drop(s) 4 DROP(S) OTIC BID 03/08/2018 03/21/2018 Inactive Generlac 10 gram/15 mL oral solution RxNorm: 228845 15 Milliliter(s) PO two to three times daily 03/03/2018 03/23/2018 Inactive meclizine 12.5 mg tablet RxNorm: 131925 1 Tablet(s) PO TID as neede d 02/10/2018 04/10/2018 Inactive change in quantity meclizine 12.5 mg tablet RxNorm: 043823 1 Tablet(s) PO BID as neede d 02/07/2018 02/09/2018 Inactive change in quantity Ciprodex 0.3 %-0.1 % ear drops,suspension RxNorm: 629777 Drop(s) 4 DROP(S) OTIC BID 02/02/2018 03/08/2018 Inactive sertraline 50 mg tablet RxNorm: 753710 1 TABLET(S) PO QHS 01/25/2018 07/05/2018 Inactive Zithromax 200 mg/5 mL oral suspension RxNorm: 271760 12.5 Dilcia liter(s) PO QD 12/31/2017 01/04/2018 Inactive Pepcid 20 mg tablet RxNorm: 513721 TABLET(S) 1 TABLET(S) PO QHS 04/29/2018 Inactive famotidine 40 mg/5 mL (8 mg/mL) oral suspension RxNorm: 3102 74 2.5 Milliliter(s) PO QHS 12/28/2017 12/27/2017 Inactive famotidine 40 mg/5 mL (8 mg/mL) oral suspension RxNorm: 3102 74 2.5 Milliliter(s) PO QHS 12/28/2017 04/03/2018 Inactive Ciprodex 0.3 %-0.1 % ear drops,suspension RxNorm: 307323 Drop(s) 4 DROP(S) OTIC BID 12/27/2017 02/02/2018 Inactive meclizine 12.5 mg tablet RxNorm: 989208 1 Tablet(s) PO BID as neede d 12/23/2017 02/06/2018 Inactive change in quantity Protonix 40 mg tablet,delayed release RxNorm: 550264 1 Tablet(s) PO or per feeding tube BID 12/16/2017 07/13/2018 Inactive oxcarbazepine 300 mg/5 mL (60 mg/mL) oral suspension RxNorm: 633277 15 Milliliter(s) PO BID 12/16/2017 07/08/2018 Inactive meclizine 12.5 mg tablet RxNorm: 619640 1 Tablet(s) PO BID as neede d 12/15/2017 02/07/2018 Inactive change in quantity Pepcid 40 mg/5 mL (8 mg/mL) oral suspension RxNorm: 608295 5 Milliliter(s) PO QHS to replace nighttime pantoprazole dose 12/14/2017 12/27/2017 Inact марина meclizine 12.5 mg tablet RxNorm: 738195 1 Tablet(s) PO BID as neede d 12/13/2017 12/23/2017 Inactive diazepam 10 mg tablet RxNorm: 447164 1 Tablet(s) PO QHS as needed 0 12/02/2017 03/01/2018 Inactive prednisolone 15 mg/5 mL oral solution RxNorm: 660146 5 Milliliter(s) PO BID for 3 days then 5ml daily for 3 days then 2.5ml daily for 3 days 12/02/2017 12/13/2017 Inactive sertraline 50 mg tablet RxNorm: 647662 1 Tablet(s) PO QHS 11/04/2017 01/24/2018 Inactive Ciprodex 0.3 %-0.1 % ear drops,suspension RxNorm: 727551 Drop(s) 4 DROP(S) OTIC BID 10/18/2017 10/31/2017 Inactive Ciprodex 0.3 %-0.1 % ear drops,suspension RxNorm: 656591 Drop(s) 4 DROP(S) OTIC BID 10/18/2017 12/27/2017 Inactive Singulair 10 mg tablet RxNorm: 452844 1 Tablet(s) PO QD 09/30/2017 Inactive diazepam 5 mg/5 mL (1 mg/mL) oral solution RxNorm: 744698 2.5 Milliliter(s) PO QD give additional 5 mg dose if seizure occurs 09/17/2017 No Stop Date A ctive Bactrim DS 800 mg-160 mg tablet RxNorm: 556387 1 Tablet(s) PO BID 0 09/17/2017 09/23/2017 Inactive Ciprodex 0.3 %-0.1 % ear drops,suspension RxNorm: 124097 4 DROP (S) OTIC BID 09/13/2017 10/18/2017 Inactive cefdinir 250 mg/5 mL oral suspension RxNorm: 729472 12 Milliliter(s) PO QD though PEG tube 08/06/2017 08/15/2017 Inactive sertraline 50 mg tablet RxNorm: 836698 1 Tablet(s) PO QHS 08/02/2017 11/04/2017 Inactive Ciprodex 0.3 %-0.1 % ear drops,suspension RxNorm: 588525 4 DROP (S) OTIC BID 07/22/2017 08/11/2017 Inactive Singulair 10 mg tablet RxNorm: 510751 1 Tablet(s) PO QD 06/30/2017 Inactive diazepam 10 mg tablet RxNorm: 964687 TAKE 1 TABLET BY M OUTH EVERY NIGHT AT BEDTIME NEEDED 06/04/2017 07/03/2017 Inactive oxcarbazepine 300 mg/5 mL (60 mg/mL) oral suspension RxNorm: 823069 15 MILLILITER(S) PO BID 05/03/2017 12/16/2017 Inactive sertraline 50 mg tablet RxNorm: 837265 1 Tablet(s) PO QHS 05/03/2017 08/02/2017 Inactive Protonix 40 mg tablet,delayed release RxNorm: 650977 1 Tablet(s) PO or per feeding tube BID 04/26/2017 12/16/2017 Inactive Ciprodex 0.3 %-0.1 % ear drops,suspension RxNorm: 263653 4 DROP (S) OTIC BID 04/26/2017 05/23/2017 Inactive Generlac 10 gram/15 mL oral solution RxNorm: 229290 Mil liliter(s) TAKE 15 ML BY MOUTH TWO-THREE TIMES DAILY 04/08/2017 03/03/2018 Inactive Singulair 10 mg tablet RxNorm: 246061 1 Tablet(s) PO QD 03/03/2017 Inactive diazepam 10 mg tablet RxNorm: 126607 1 Tablet(s) PO QHS as needed 0 02/15/2017 06/04/2017 Inactive Singulair 10 mg tablet RxNorm: 091207 1 Tablet(s) PO QD 12/01/2016 Inactive Diflucan 150 mg tablet RxNorm: 819265 Tablet(s) Give 1 tab PO now and then repeat dose in 5 days 11/10/2016 03/31/2017 Inactive Zithromax 200 mg/5 mL oral suspension RxNorm: 207244 12.5 Dilcia liter(s) PO QD 11/10/2016 11/14/2016 Inactive Singulair 10 mg tablet RxNorm: 826597 TAKE 1 TABLET BY MOUTH ON CE DAILY 11/02/2016 12/01/2016 Inactive diazepam 10 mg tablet RxNorm: 799661 TAKE 1 TABLET BY M OUTH EVERY NIGHT AT BEDTIME NEEDED 10/21/2016 11/19/2016 Inactive sertraline 50 mg tablet RxNorm: 594133 1 Tablet(s) PO QHS 10/12/2016 01/09/2017 Inactive fluconazole 100 mg tablet RxNorm: 842127 1 Tablet(s) PO QD 09/23/19 17 09/24/2016 Inactive fluconazole 100 mg tablet RxNorm: 025232 1 Tablet(s) PO QD 09/23/19 17 09/21/2016 Inactive Bactrim DS 800 mg-160 mg tablet RxNorm: 258201 1 Tablet(s) PO BID 0 09/10/2016 09/09/2016 Inactive Bactrim DS 800 mg-160 mg tablet RxNorm: 100314 1 Tablet(s) PO BID 0 09/10/2016 09/16/2016 Inactive oxcarbazepine 300 mg/5 mL (60 mg/mL) oral suspension RxNorm: 203891 15 Milliliter(s) PO BID 09/07/2016 03/05/2017 Inactive sertraline 50 mg tablet RxNorm: 953059 1 Tablet(s) PO QHS 07/06/2016 10/03/2016 Inactive Pepcid 20 mg tablet RxNorm: 424294 Tablet(s) 1 TABLET(S) PO QHS 08/201603/08/2017 Inactive sertraline 50 mg tablet RxNorm: 041590 1 Tablet(s) PO QHS 06/08/2016 05/03/2017 Inactive Generlac 10 gram/15 mL oral solution RxNorm: 855700 Mil liliter(s) TAKE 15 ML BY MOUTH TWO-THREE TIMES DAILY 06/08/2016 09/08/2016 Inactive Pepcid 20 mg tablet RxNorm: 090882 1 TABLET(S) PO QHS 06/04/201607/2016 Inactive fluconazole 100 mg tablet RxNorm: 305986 1 Tablet(s) QD through PEG tube 05/13/2016 12/01/2017 Inactive Diflucan 150 mg tablet RxNorm: 394126 Give 1 tab PO now and then repeat dose in 5 days 03/19/2016 11/09/2016 Inactive ceftriaxone 1 gram solution for injection RxNorm: 8296553 1 Gram(s) IM QD Wednesday and Wednesday03/19/2016 11/09/2016 Inactive lidocaine 10 mg/mL (1 %) injection solution RxNorm: 9344508 Use as directed to reconstitute Rocephin when needed 03/19/2016 12/13/2017 Inactive Generlac 10 gram/15 mL oral solution RxNorm: 900677 JOE E 15 ML BY MOUTH TWO- THREE TIMES DAILY 03/19/2016 06/07/2016 Inactive oxcarbazepine 300 mg/5 mL oral suspension RxNorm: 607928 15 Milliliter(s) PO BID 03/13/2016 09/07/2016 Inactive Ciprodex 0.3 %-0.1 % ear drops,suspension RxNorm: 376072 4 DROP (S) OTIC BID 03/09/2016 03/15/2016 Inactive cefdinir 250 mg/5 mL oral suspension RxNorm: 250634 11. 75 Milliliter(s) PO QD though PEG tube 03/02/2016 03/08/2016 Inactive cefdinir 250 mg/5 mL oral suspension RxNorm: 451463 11. 75 Milliliter(s) PO QD though PEG tube 02/24/2016 03/01/2016 Inactive cefdinir 250 mg/5 mL oral suspension RxNorm: 821178 11. 75 Milliliter(s) PO QD though PEG tube 02/24/2016 02/23/2016 Inactive Ciprodex 0.3 %-0.1 % ear drops,suspension RxNorm: 400564 4 Drop (s) OTIC BID 02/24/2016 03/01/2016 Inactive Generlac 10 gram/15 mL oral solution RxNorm: 095050 JOE E 15 ML BY MOUTH TWICE DAILY 02/17/2016 03/18/2016 Inactive Generlac 10 gram/15 mL oral solution RxNorm: 591865 15 Millilit er(s) PO BID 01/23/2016 02/16/2016 Inactive Pepcid 20 mg tablet RxNorm: 731859 1 TABLET(S) PO QHS 01/13/201605/07 Inactive Ciprodex 0.3 %-0.1 % ear drops,suspension RxNorm: 355257 4 Drop (s) OTIC BID 12/23/2015 12/29/2015 Inactive sertraline 50 mg tablet RxNorm: 395932 1 Tablet(s) PO QHS 12/16/2015 06/07/2016 Inactive Zithromax 500 mg tablet RxNorm: 622512 1 Tablet(s) PO QD 12/16/2015 0 12/22/2015 Inactive Pepcid 20 mg tablet RxNorm: 087588 1 Tablet(s) PO QHS 12/16/201501/02 Inactive Zithromax 500 mg tablet RxNorm: 712012 1 Tablet(s) PO QD 11/12/2015 0 11/18/2015 Inactive Singulair 10 mg tablet RxNorm: 986851 1 Tablet(s) PO BID 10/16/2015 0 11/11/2015 Inactive diazepam 10 mg tablet RxNorm: 126861 1 Tablet(s) PO QHS 10/07/2015 Inactive diazepam 10 mg tablet RxNorm: 441059 1 Tablet(s) PO QHS 10/07/2015 Inactive fexofenadine 30 mg/5 mL oral suspension RxNorm: 094209 10 Milliliter(s) PO one to two times daily PRN allergies 09/20/2015 12/15/2015 Inactive ceftriaxone 1 gram solution for injection RxNorm: 3755984 1 Gram (s) IM QD 09/20/2015 09/21/2015 Inactive Ciprodex 0.3 %-0.1 % ear drops,suspension RxNorm: 291379 4 Drop (s) OTIC BID 09/20/2015 10/03/2015 Inactive Protonix 40 mg tablet,delayed release RxNorm: 308660 1 Tablet(s) PO or per feeding tube BID 08/21/2015 12/18/2015 Inactive Carafate 100 mg/mL oral suspension RxNorm: 299909 10 Mi lliliter(s) Miscellaneous per feeding tube AC & HS 08/21/2015 09/19/2015 Inactive Zyrtec 10 mg tablet RxNorm: 5486783 1 Tablet(s) PO QD No Start Date Active diazepam 20 mg rectal kit RxNorm: 270954 RTL as needed No Start Date Active Lortab Elixir 10 mg-300 mg/15 mL oral solution RxNorm: 28800 45 8 PO Q6-8H as needed No Start Date Active ondansetron HCl 4 mg/5 mL oral solution RxNorm: 689262 10 Milliliter(s) PO as needed and through tube No Start Date Active sertraline 50 mg tablet RxNorm: 801008 1 Tablet(s) PO QD No Start D ate 12/15/2015 Inactive Brittany 180 mg tablet RxNorm: 772733 1 Tablet(s) PO QD No Start Date 06/12/2018 Inactive Generlac 10 gram/15 mL oral solution RxNorm: 159677 15 Millilit er(s) PO BID No Start Date 01/22/2016 Inactive oxcarbazepine 300 mg/5 mL oral suspension RxNorm: 888635 13.5 Milliliter(s) PO QAM and 15ml in the evening No Start Date 12/15/2015 Inactive Singulair 10 mg tablet RxNorm: 201045 1 Tablet(s) PO QD No Start Da te 11/30/2016 Inactive meclizine 12.5 mg tablet RxNorm: 043392 1 Tablet(s) PO TID as needed for dizziness No Start Date 09/13/2017 Inactive meclizine 12.5 mg tablet RxNorm: 061228 1 Tablet(s) PO BID No Start Date 12/12/2017 Inactive fluconazole 100 mg tablet RxNorm: 701221 1 Tablet(s) QD through PEG tube No Start Date 05/12/2016 Inactive Flomax 0.4 mg capsule RxNorm: 803763 1 Capsule(s) PO QD No Start Da te 06/12/2018 Inactive diazepam 10 mg tablet RxNorm: 640735 1 Tablet(s) PO QHS as needed N o Start Date 02/14/2017 Inactive Generlac 10 gram/15 mL oral solution RxNorm: 262459 15 Milliliter(s) PO two to three times daily No Start Date 03/02/2018 Inactive oxcarbazepine 300 mg/5 mL oral suspension RxNorm: 081279 15 Milliliter(s) PO BID No Start Date 12/15/2017 Inactive Medication Administered No Medication Administered data Immunizations Vaccine Codes Date Status Influenza CVX: 141 04/21/2019 Results No Results data Procedures Procedure Codes Date DEXAMETHASONE SODIUM PHOS CPT-4: J1100 10/06/2019 THER/PROPH/DIAG INJ SC/IM CPT-4: 74511 10/06/2019 DEXAMETHASONE SODIUM PHOS CPT-4: J1100 05/03/2019 THER/PROPH/DIAG INJ SC/IM CPT-4: 02177 05/03/2019 CEFTRIAXONE SODIUM INJECTION CPT-4: J0696 03/19/2016 THER/PROPH/DIAG INJ SC/IM CPT-4: 11848 03/19/2016 DEXAMETHASONE SODIUM PHOS CPT-4: J1100 11/12/2015 THER/PROPH/DIAG INJ SC/IM CPT-4: 90171 11/12/2015 CEFTRIAXONE SODIUM INJECTION CPT-4: J0696 09/20/2015 THER/PROPH/DIAG INJ SC/IM CPT-4: 59081 09/20/2015 THER/PROPH/DIAG INJ SC/IM CPT-4: 38500 09/10/2015 METHYLPREDNISOLONE 40 MG INJ CPT-4: J1030 09/10/2015 TRIAMCINOLONE ACET INJ NOS CPT-4: J3301 09/10/2015 Vital Signs Date Vital 07/25/2019 Blood Pressure 1: 116/80 Code: 8480-6 BMI: 23.2 Code: 50577-8 Heart Rate 1: 81 bpm Height: 4'5" Respiratory Rate: 16 bpm SpO2: 100% Tempera ture: 36.8 (C) / 98.2 (F) Weight: 92 lbs 06/12/2019 Blood Pressure 1: 112/74 Code: 8480-6 BMI: 23.2 Code: 96311-1 Heart Rate 1: 102 bpm Height: 4'5" [...] 1: 114/70 Code: 8480-6 BMI: 23.1 Code: 52929-4 Heart Rate 1: 80 bpm Height: 4'6" [...] visit Encounters Encounter Performer Location Codes Date ([id number]) NURSE/OUTPATIENT VISIT EST Diagnosis: Allergic rhinitis, unspecified[ICD10: J30.9] Keily [facility] CPT-4: 42471 10/06/2019 ([id number]) OFFICE/OUTPATIENT VISIT EST Diagnosis: Allergic rhinitis[ICD10: J30.9] [facility] CPT[facility]: 03907 10/05/2019 ([id number]) OFFICE/OUTPATIENT VISIT EST Diagnosis: Sinusitis[ICD10: J32.9] Fatou GILBERT [employer] [facility] CPT-4: 48292 07/25/2019 ([id number]) PREV VISIT EST AGE 18-39 Diagnosis: Encounter for general adult medical examination with abnormal findings[ICD10: Z00.01] Diagnosis: Chronic pancreatitis[ICD10: K86.1] Diagnosis: Cerebral palsy, unspecified[ICD10: G80.9] Keily ARANGO [employer] [facility] CPT-4: 10942 06/12/2019 ([id number]) OFFICE/OUTPATIENT VISIT EST Diagnosis: Pneumonia, organism unspecified[ICD10: J18.9] Diagnosis: Breast mass, right[ICD10: N63.10] Keily [facility]ANGO [employer] [facility] CPT-4: 96186 05/08/2019 ([id number]) OFFICE/OUTPATIENT VISIT EST Diagnosis: Allergic rhinitis due to pollen[ICD10: J30.1] Diagnosis: Otitis media, unspecified, right ear[ICD10: H66.91] Fatou [facility] CPT-4: 68952 05/03/2019 ([id number]) OFFICE/OUTPATIENT VISIT EST Diagnosis: Irritability and anger[ICD10: R45.4] Nataliia Hsieh BLANCA [facility] [employer] [facility] CPT-4: 01772 11/25/2018 ([id number]) OFFICE/OUTPATIENT VISIT EST Diagnosis: Acute suppurative otitis media without spontaneous rupture of ear drum, bilateral[ICD10: H66.003] Fatou [facility] CPT-4: 29601 06/13/2018 ([id number]) OFFICE/OUTPATIENT VISIT EST Diagnosis: Other fatigue[ICD10: R53.83] Diagnosis: Anuria and oliguria[ICD10: R34] Diagnosis: Acute gastritis without bleeding[ICD10: K29.00] Fatou [facility] CPT-4: 01835 01/04/2018 ([id number]) OFFICE/OUTPATIENT VISIT EST Diagnosis: Acute bronchitis, unspecified[ICD10: J20.9] Fatou [facility] CPT-4: 40953 12/31/2017 ([id number]) PREV VISIT EST AGE 18-39 Diagnosis: Encounter for general adult medical examination without abnormal findings[ICD10: Z00.00] Diagnosis: Severe intellectual disabilities[ICD10: F72] Diagnosis: Allergic rhinitis due to pollen[ICD10: J30.1] Diagnosis: Epilepsy, unspecified, intractable, without status epilepticus[ICD10: G40.919] Diagnosis: Gastro-esophageal reflux disease without esophagitis[ICD10: K21.9] [facility] 855[facility] 12/14/2017 ([id number]) OFFICE/OUTPATIENT VISIT EST Diagnosis: Allergic rhinitis due to pollen[ICD10: J30.1] Diagnosis: Epilepsy, unspecified, intractable, without status epilepticus[ICD10: G40.919] [facility]: 37244 12/02/2017 ([id number]) OFFICE/OUTPATIENT VISIT EST Diagnosis: Other allergic rhinitis[ICD10: J30.89] [facility]: 13674 10/12/2017 OFFICE/OUTPATIENT VISIT EST Diagnosis: Acute suppurative otitis media without spontaneous rupture of ear drum, recurrent, left ear[ICD10: H66.005] Diagnosis: Epilepsy, unspecified, intractable, without status epilepticus[ICD10: G40.919] Diagnosis: Hesitancy of micturition[ICD10: R39.11] Fatou [facility] CPT-4: 77665 09/17/2017 OFFICE/OUTPATIENT VISIT EST Diagnosis: Otitis media, unspecified, left ear[ICD10: H66.92] [facility]: 21088 08/06/2017 ([id number]) OFFICE/OUTPATIENT VISIT EST Diagnosis: Vertigo of central origin, 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.49] Diagnosis: Dizziness and giddiness[ICD10: R42] Keily NARANJO [facility]amante [facility] CPT[facility]: 54891 04/01/2017 OFFICE/OUTPATIENT VISIT EST Diagnosis: Vomiting, unspecified[ICD10: R11.10] Diagnosis: 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)[ICD10: K56.5] Diagnosis: Personal history of urinary calculi[ICD10: Z87.442] Emely Hdz KEILY [facility] CPT[facility]: 16201 03/01/2017 ([id number]) OFFICE/OUTPATIENT VISIT EST Diagnosis: Allergic rhinitis due to pollen[ICD10: J30.1] Diagnosis: Acute and subacute allergic otitis media (mucoid) (sanguinous) (serous), left ear[ICD10: H65.112] [facility] CPT-4: 00222 11/10/2016 ([id number]) OFFICE/OUTPATIENT VISIT EST Diagnosis: 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] Diagnosis: Unspecified ovarian cyst, right side[ICD10: N83.201] Diagnosis: Cyst of kidney, 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] Keily CERON Diamante [facility] CPT-[facility]: 42000 08/13/2016 ([id number]) OFFICE/OUTPATIENT VISIT EST Diagnosis: Rash and other nonspecific skin eruption[ICD10: R21] Aziza Magallanes KEILY [facility]amante [facility] CPT[facility]: 75217 03/27/2016 ([id number]) OFFICE/OUTPATIENT VISIT EST Diagnosis: Urinary tract infection, site not specified[ICD10: N39.0] Keily LINARES [facility] CPT[facility]: 90698 03/23/2016 ([id number]) OFFICE/OUTPATIENT VISIT EST Diagnosis: Retention of urine, unspecified[ICD10: R33.9] Diagnosis: Dysuria[ICD10: R30.0] Diagnosis: Constipation, unspecified[ICD10: K59.00] Aziza Magallanes SIOMARA LAWTON Diamante [facility] CPT-4: 57743 03/19/2016 ([id number]) OFFICE/OUTPATIENT VISIT EST Diagnosis: Acute sinusitis, unspecified[ICD10: J01.90] Keily [facility] CPT-4: 58046 03/02/2016 OFFICE/OUTPATIENT VISIT EST Diagnosis: Other fatigue[ICD10: R53.83] Diagnosis: Retention of urine, unspecified[ICD10: R33.9] Diagnosis: Dysuria[ICD10: R30.0] Diagnosis: Generalized abdominal pain[ICD10: R10.84] 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] Aziza [facility] CPT-4: 54536 02/24/2016 ([id number]) OFFICE/OUTPATIENT VISIT EST Diagnosis: Chronic mucoid otitis media, right ear[ICD10: H65.31] Diagnosis: Allergic rhinitis, unspecified[ICD10: J30.9] Diagnosis: 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] Keily [facility] CPT-4: 17294 12/16/2015 ([id number]) OFFICE/OUTPATIENT VISIT EST Diagnosis: Allergic rhinitis, unspecified[ICD10: J30.9] Diagnosis: Acute recurrent sinusitis, unspecified[ICD10: J01.91] Keily [facility] CPT-4: 98810 11/12/2015 ([id number]) OFFICE/OUTPATIENT VISIT EST Diagnosis: Other seasonal allergic rhinitis[ICD10: J30.2] Diagnosis: Nausea with vomiting, unspecified[ICD10: R11.2] Diagnosis: Epigastric pain[ICD10: R10.13] Aziza [facility] CPT-4: 06662 10/16/2015 OFFICE/OUTPATIENT VISIT EST Diagnosis: Encounter for follow-up examination after completed treatment for conditions other than malignant neoplasm[ICD10: Z09] Diagnosis: Generalized abdominal pain[ICD10: R10.84] Keily [facility] CPT-4: 75592 09/23/2015 ([id number]) OFFICE/OUTPATIENT VISIT EST Diagnosis: Otitis media, unspecified, right ear[ICD10: H66.91] Diagnosis: Constipation, unspecified[ICD10: K59.00] Diagnosis: Allergic rhinitis, unspecified[ICD10: J30.9] Aziza [facility] CPT-4: 45549 09/20/2015 OFFICE/OUTPATIENT VISIT EST Diagnosis: Allergic rhinitis, unspecified[ICD10: J30.9] Diagnosis: Unspecified perforation of tympanic membrane, right ear[ICD10: H72.91] Bibiana [facility] CPT-4: 84905 09/10/2015 OFFICE/OUTPATIENT VISIT NEW Diagnosis: Epilepsy, unspecified, intractable, without status epilepticus[ICD10: G40.919] Diagnosis: Gastric ulcer, unspecified as acute or chronic, without hemorrhage or perforation[ICD10: K25.9] Diagnosis: Severe intellectual disabilities[ICD10: F72] Keily [facility] CPT-4: 15230 08/21/2015 Plan of Care Planned Activity Notes [...] ICD-10 : J30.9 10/05/2019 Appointment: Fatou Onofre [address] [place], [place] [address]a [address] TELEMEDICINE 10/05/2019 Visit Diagnosis Plan: Sinusitis Discussion: due to dean h of illness and symptoms, cefdinir prescribed to take as directed. call office with any new or worsening symptoms. ICD-9 : 473.9 ICD-10 : J32.9 07/25/2019 Appointment: Fatou Onofre [address] [place], [place] [address] [address] ACUTE ILLNESS 07/25/2019 Patient Education: cefdinir- [employer] Coupon [id number] [email or web address] Completed 07/25/2019 Visit Diagnosis Plan: Chronic pancreatitis Discussion: Continue zenpep and recheck CMP with amylase/lipase in 1 month ICD-9 : 577.1 ICD-10 : K86.1 06/12/2019 Appointment: Keily Arango WPtel: [phone] [facility] Annual Well Visit 06/12/2019 Visit Diagnosis Plan: [...] : J18.9 05/08/2019 Appointment: Keily Arango WPtel: [facility] [place] Hospital Follow Up 05/08/2019 Visit Diagnosis Plan: [...] ICD-10 : H66.91 05/03/2019 Appointment: Fatou Onofre [address] [place], [place] [address] ACUTE ILLNESS 05/03/2019 Patient Education: amoxicillin- [employer] Coupon [phone] [email or web address] Completed 05/03/2019 Visit Diagnosis Plan: Irritability and [...] ICD-10 : R45.4 11/25/2018 Appointment: Nataliia Hsieh [facility] [address] ACUTE ILLNESS 11/25/2018 Visit Diagnosis Plan: Acute suppurative otitis media without spontaneous rupture of ear drum, bilateral Discussion: cefdinir for 10 days. if wor sening symptoms later this week, call clinic. push fluids and tylenol/ibuprofen prn pain or fever. ICD-9 : 382.00 ICD-10 : H66.003 06/13/2018 Appointment: Fatou Onofre [address] [place] [address] ACUTE ILLNESS 06/13/2018 Visit Diagnosis Plan: Anuria [...] : K29.00 01/04/2018 Appointment: Fatou Onofre [address] [place] [address] ACUTE ILLNESS 01/04/2018 Patient Education: Patient Medication Summary Completed 01/04/2018 Visit Diagnosis Plan: Acute bronchitis, unspecified Di scussion: zithromax prescribed to take as directed. continue with allergy meds including flonase to help dry congestion. call office next week if new or worsening symptoms. ICD-9 : 466.0 ICD-10 : J20.9 12/31/2017 Appointment: Fatou Onofre [address] [place] [address] ACUTE ILLNESS 12/31/2017 Patient Education: Patient Medication [...] G40.919 12/14/2017 Visit Diagnosis Plan: Encounter for [facility] medical examination without abnormal findings Discussion: Had recent lab done Follow Up: 3 months ICD-9 : V70.9 ICD-10 : Z00.00 12/14/2017 Appointment: Keily Arango WPtel: [address] [place] [address] CHECK UP 12/14/2017 Patient Education: Patient Medication [...] J30.1 12/02/2017 Appointment: Keily Arango WPtel: [phone] ACUTE ILLNESS 12/02/2017 Patient Education: Patient Medication Summary Completed 12/02/2017 Visit Diagnosis Plan: Other allergic rhinitis Discussi on: symptoms most likely caused from allergies. patient sent to hospital for decadron injection. instructed to restart patient's flonase at home. if new or worsening symptoms, call or rtc. ICD-9 : 477.8 ICD-10 : J30.89 10/12/2017 Appointment: Fatou Onofre [address] [place], [place] [address] ACUTE ILLNESS 10/12/2017 Patient Education: Patient Medication [...] : G40.919 09/17/2017 Appointment: Fatou Onofre [address] [place] [address] ACUTE ILLNESS 09/17/2017 Patient Education: Patient Medication Summary Completed 09/17/2017 Visit Diagnosis Plan: Otitis media, unspecified, left ear Discussion: cefdinir prescribed daily for 10 days. instructed to administer tylenol/ibuprofen for pain or fever. if no improvement, or worsening symptoms, call or rtc. ICD-9 : 380.14 ICD-10 : H66.92 08/06/2017 Appointment: Fatou Onofre [address] [place] [address] ACUTE ILLNESS 08/06/2017 Patient Education: Patient Medication Summary Completed 08/06/2017 Patient Education: Patient Medication Summary Completed 08/02/2017 Patient Education: Patient Medication Summary Completed 04/21/2017 Care Plan: MRI BRAIN STEM W/O DYE [facility] : 88373-4 Pending 04/21/2017 Patient Education: Patient Medication Summary Completed 04/20/2017 Care Plan: MRI BRAIN STEM W/O DYE LOINC : 00435-9 Pending 04/20/2017 Visit Diagnosis Plan: Vertigo of central origin, unspe cified ear Discussion: Continue meclizine at 12.5mg po BID for 2 more weeks then go to 12.5mg daily for 2 weeks then 6.25mg daily for 2 weeks then stop Notify if any symptoms return with weaning process ICD-9 : 386.2 ICD-10 : H81.49 04/01/2017 Appointment: Keily Arango WPtel: [address] [place], [place] [phone] FOLLOW UP 04/01/2017 Patient Education: Patient Medication Summary Completed 04/01/2017 Patient Education: Patient Medication Summary Completed 03/09/2017 Care Plan: CT HEAD/BRAIN W/O DYE LOINC : 56445-8 Pending 03/09/2017 Visit Plan: It's difficult to [...] indicated. 03/01/2017 Appointment: Emely Hdz WPtel: [address] [place] [address] ACUTE ILLNESS 03/01/2017 Patient Education: Patient Medication Summary Completed 03/01/2017 Patient Education: Patient Medication Summary Completed 12/17/2016 Visit Diagnosis Plan: Acute and subacute allergic otitis media (mucoid) (sanguinous) (serous), left ear Discussion: Zithromax ICD-9 : 381.05 ICD-10 : H65.112 11/10/2016 Visit Diagnosis Plan: Allergic rhinitis due to pollen Discussion: Continue zyrtec/singulair ICD-9 : 477.9 ICD-10 : J30.1 11/10/2016 Appointment: Keily Arango WPtel: [facility] [place] [place] [phone] ACUTE ILLNESS 11/10/2016 Patient Education: Patient Medication Summary Completed 11/10/2016 Patient Education: Patient Medication Summary Completed 09/07/2016 Care Plan: URINALYSIS AUTO W/[place] : 40984-7 Pending 09/07/2016 Visit Diagnosis Plan: Cyst of kidney, acquired Discuss ion: Renal US in 6mos to assess stability ICD-9 : 753.10 ICD-10 : N28.1 08/13/2016 Visit Diagnosis Plan: Calculus of kidney Discussion: Carroll velez Finish flomax Will observe for now since pain is resolved ICD-9 : 592.0 ICD-10 : N20.0 08/13/2016 Visit Diagnosis Plan: Unspecified ovarian cyst, right side Discussion: Pain resolved so will only get pelvic US if pain or vomiting return ICD-9 : 620.2 ICD-10 : N83.201 08/13/2016 Appointment: Keily Arango WPtel: [address] [place] [address] 08/12 confirmed-sp FOLLOW UP 08/13/2016 Patient Education: Patient Medication Summary Completed 08/13/2016 Patient Education: Patient Medication Summary Completed 05/19/2016 Care Plan: X-RAY EXAM OF FOOT left foot LOINC : 26 095-0 Pending 05/19/2016 Visit Plan: Discussed with Dr Conchita MAGANA C to be drawn Order sent to Will call with results 03/27/2016 Appointment: Aziza Magallanes [address] ACUTE ILLNESS 03/27/2016 Patient Education: Patient Medication Summary Completed 03/27/2016 Visit Plan: Go for dose of rocephin 1gm IM today and tomorrow then done Diflucan 150mg x1 today Discussed with mom via phone about urology fwup--she will talk with her and let us know 03/23/2016 Appointment: Keily Arango WPtel: [facility] [place] 03/23 confirmed ~sl FOLLOW UP 03/23/2016 Patient Education: Patient Medication Summary Completed 03/23/2016 Visit Plan: Per Dr Arango, straight cat h for UA and culture today Ok to have a standing order for further UA needs at for straight cath Rocephin IM today and daily through Wednesday Mom has arranged a family friend that is an [employer] to give Wednesday and Sundays injections - [...] us know 03/19/2016 Appointment: Aziza Magallanes [address] [facility] ACUTE ILLNESS 03/19/2016 Patient Education: Patient Medication Summary Completed 03/19/2016 Visit Plan: 1 more week of cefdinir 03/02/2016 Appointment: Keily Arango WPtel: [address] [place], [place] [phone] 03/02 confirmed~sl WORK IN 03/02/2016 Patient Education: [...] seen if worsening 02/24/2016 Appointment: Aziza Magallanes [address] [place] [phone] ACUTE ILLNESS 02/24/2016 Patient Education: Patient Medication Summary Completed 02/24/2016 Care Plan: CHEST X-RAY 2VW FRONTAL&LATL LOINC : 81643-5 Pending 02/24/2016 Care Plan: X-RAY EXAM OF ABDOMEN LOINC : 06763-6 Pending 02/24/2016 Visit Plan: Repeat zithromax x1 week Cip rodex to right ear x1 week Add Pepcid q HS x2-4 weeks for total histamine blockade and for extra stomach protection while on zithromax 12/16/2015 Appointment: Keily Arango WPtel: [phone] [facility] US 6/9 lm~sl 6/10 lm ~sl FOLLOW UP 12/16/2015 Patient Education: Patient Medication Summary Completed 12/16/2015 Patient Education: [facility] - Saving AutoInj - Sertraline HCL - 18-64 - Dynamic Portal ID Completed 12/16/2015 Visit Plan: Saline nasal flushes prn. Ty lenol/Motrin prn headache. Notify if persists/symptoms worsens Dexamethasone given 11/12/2015 Appointment: Keily Arango WPtel: [phone] [facility] US 5/9 lm~sl 5/10 lm~sl 5/10 confirm-sp [...] visits for Belkys 10/16/2015 Appointment: Aziza Magallanes [address] [place], [place] [phone] ACUTE ILLNESS 10/16/2015 Patient Education: Patient Medication Summary Completed 10/16/2015 Appointment: Aziza Magallanes [address] [place], [place] [phone] [place] canceled, feeling better CANCELED 016 Visit Plan: No further abx needed Go mariela k to jevity for next 3 days and restart carafate Notify if abdominal pain worsens 09/23/2015 Appointment: Keily Arango WPtel: [phone] [facility] 09/19 confirmed-sp FOLLOW UP 09/23/2015 Patient Education: [...] Order sent to [facility] since [facility] does not have in [...] try for now. 09/20/2015 Appointment: Aziza Magallanes [address] [place] [phone] ACUTE ILLNESS 09/20/2015 Patient Education: Patient Medication Summary Completed 09/20/2015 Visit Plan: Depo Medrol 40mg/ Kenalog 40 mg IM today Resume Ciprodex otic gtts. bid to Rt. ear 09/10/2015 Appointment: Bibiana Garg WPtel: [phone] [facility] 09/08 confirmed-sp ACUTE ILLNESS 09/10/2015 Patient Education: Patient Medication Summary Completed 09/10/2015 Visit Plan: Increase Protonix to 40mg po BID for 1month Continue carafate at q AC dosing for full month then wean off Jevity for 2 more days then advance diet if able Continue current meds 08/21/2015 Appointment: Keily Arango WPtel: [phone] [facility] [place] NEW PATIENT 08/21/2015 Patient Education: Patient [...] arranged a family friend that is an [employer] to give Wednesday and Sundays injections - [...] Order sent to [facility] since [facility] does not have in [...]
--- OUTSIDE RECORDS SUMMARY | 2019-11-10 19:33 | XMS REPORT | CCD ---
Author Author Belkys Arango D.O. 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 Name Role Phone Keily Arango D.O., PP Unavailable CCM Unavailable Summary Purpose Interface Exchange Insurance Providers Payer name Policy type / Coverage type Covered green party ID Effective Begin Date Effective End Date [employer] [facility] [place] Medicaid [id number] U nknown Family History Family History data not found Social History Social History Element Codes Description Effective Dates Marital status Unknown Single 08/21/2015 Employment Unknown Currently unemployed Physically handicapped 08/21/[address]: 702331021 Has never smoked or chewed tobacco 08/21/[address]: 642949268 Never drinks alcohol 2015 Allergies, Adverse Reactions, [...] Ciprodex 0.3 %-0.1 % ear drops,suspension RxNorm: 863337 SHAKE LIQUID AND INSTILL 4 DROPS IN AFFECTED EAR(S) TWICE DAILY 09/22/2019 10/15/2019 A ctive diazepam 10 mg tablet RxNorm: 679858 TAKE 1 TABLET BY M OUTH EVERY NIGHT AT BEDTIME NEEDED 09/11/2019 10/10/2019 Active meclizine 12.5 mg tablet RxNorm: 476492 TAKE 1 TABLET B Y MOUTH THREE TIMES DAILY NEEDED 08/31/2019 10/29/2019 Active Ciprodex 0.3 %-0.1 % ear drops,suspension RxNorm: 477426 SHAKE LIQUID AND INSTILL 4 DROPS IN AFFECTED EAR(S) TWICE DAILY 08/31/2019 09/07/2019 I nactive Ciprodex 0.3 %-0.1 % ear drops,suspension RxNorm: 760648 SHAKE LIQUID AND INSTILL 4 DROPS IN AFFECTED EAR(S) TWICE DAILY 08/11/2019 08/18/2019 I nactive meclizine 12.5 mg tablet RxNorm: 183329 TAKE 1 TABLET B Y MOUTH THREE TIMES DAILY NEEDED 08/04/2019 08/30/2019 Inactive cefdinir 250 mg/5 mL oral suspension RxNorm: 750987 12 Milliliter(s) Oral QD though PEG tube 07/25/2019 08/03/2019 Inactive Zenpep 40,000 unit-126,000 unit-168,000 unit capsule,d elayed release RxNorm: 2030995 1 Capsule(s) Oral AC 07/10/2019 11/06/2019 Active famotidine 20 mg tablet RxNorm: 602739 TAKE 1 TABLET BY MOUTH EVERY NIGHT AT BEDTIME 07/09/2019 01/04/2020 Active sertraline 50 mg tablet RxNorm: 685479 TAKE 1 TABLET BY MOUTH EVERY NIGHT AT BEDTIME 07/09/2019 09/06/2019 Inactive Zenpep 40,000 unit-126,000 unit-168,000 unit capsule,d elayed release RxNorm: 8376422 1 Capsule(s) Oral AC 06/12/2019 07/09/2019 Inactive Zenpep 40,000 unit-126,000 unit-168,000 unit capsule,d elayed release RxNorm: 4536861 1 Capsule(s) Oral AC 05/24/2019 05/23/2019 Inactive Zenpep 40,000 unit-126,000 unit-168,000 unit capsule,d elayed release RxNorm: 3747575 1 Capsule(s) Oral AC 05/24/2019 06/11/2019 Inactive Ciprodex 0.3 %-0.1 % ear drops,suspension RxNorm: 081182 DROP(S) 4 DROP(S) OTIC BID 05/22/2019 06/18/2019 Inactive oxcarbazepine 300 mg/5 mL (60 mg/mL) oral suspension RxNorm: 050601 15 Milliliter(s) Oral two times a day 05/08/2019 11/03/2019 Active meclizine 12.5 mg tablet RxNorm: 655637 1 TABLET(S) PO TID NEEDE D 05/05/2019 08/02/2019 Inactive change in quantity Zithromax 200 mg/5 mL oral suspension RxNorm: 492890 12.5 Dilcia liter(s) Oral QD 05/04/2019 05/09/2019 Inactive amoxicillin 400 mg/5 mL oral suspension RxNorm: 125105 10 Milliliter(s) Oral two times a day 05/03/2019 05/13/2019 Inactive Singulair 10 mg tablet RxNorm: 949785 1 TABLET(S) PO QD 03/28/2019 Inactive Macrobid 100 mg capsule RxNorm: 906803 1 Capsule(s) PO BID 03/16/2003/22/2019 Inactive meclizine 12.5 mg tablet RxNorm: 356622 1 Tablet(s) PO TID as neede d 03/10/2019 05/04/2019 Inactive change in quantity Ciprodex 0.3 %-0.1 % ear drops,suspension RxNorm: 429891 DROP(S) 4 DROP(S) OTIC BID 03/08/2019 04/04/2019 Inactive oxcarbazepine 300 mg/5 mL (60 mg/mL) oral suspension RxNorm: 511649 15 Milliliter(s) PO BID 03/07/2019 05/07/2019 Inactive Macrobid 100 mg capsule RxNorm: 603650 1 Capsule(s) PO BID 02/21/2003/01/2019 Inactive Macrobid 100 mg capsule RxNorm: 219563 1 Capsule(s) PO BID 02/21/2002/19/2019 Inactive meclizine 12.5 mg tablet RxNorm: 756196 1 Tablet(s) PO TID as neede d 02/06/2019 03/07/2019 Inactive change in quantity Ciprodex 0.3 %-0.1 % ear drops,suspension RxNorm: 277093 DROP(S) 4 DROP(S) OTIC BID 01/30/2019 02/12/2019 Inactive diazepam 10 mg tablet RxNorm: 807336 1 Tablet(s) PO QHS as needed 0 01/27/2019 09/10/2019 Inactive sertraline 50 mg tablet RxNorm: 093072 1 Tablet(s) PO QHS 12/29/2018 06/26/2019 Inactive famotidine 20 mg tablet RxNorm: 618775 1 Tablet(s) PO QHS 12/29/2018 06/26/2019 Inactive Ciprodex 0.3 %-0.1 % ear drops,suspension RxNorm: 045442 DROP(S) 4 DROP(S) OTIC BID 12/14/2018 12/27/2018 Inactive Generlac 10 gram/15 mL oral solution RxNorm: 709775 15 Milliliter(s) PO TWO TO THREE TIMES DAILY 12/06/2018 06/03/2019 Inactive Protonix 40 mg tablet,delayed release RxNorm: 237899 1 Tablet(s) PO or per feeding tube BID 11/24/2018 05/22/2019 Inactive meclizine 12.5 mg tablet RxNorm: 624529 1 Tablet(s) PO TID as neede d 11/11/2018 02/06/2019 Inactive change in quantity Ciprodex 0.3 %-0.1 % ear drops,suspension RxNorm: 354430 DROP(S) 4 DROP(S) OTIC BID 11/08/2018 11/21/2018 Inactive diazepam 10 mg tablet RxNorm: 343857 1 Tablet(s) PO QHS as needed 0 10/21/2018 11/19/2018 Inactive Generlac 10 gram/15 mL oral solution RxNorm: 431695 Mil liliter(s) 15 MILLILITER(S) PO TWO TO THREE TIMES DAILY 10/07/2018 11/05/2018 Inacti ve Ciprodex 0.3 %-0.1 % ear drops,suspension RxNorm: 284625 DROP(S) DROP(S) 4 DROP(S) OTIC BID 08/26/2018 03/15/2019 Inactive meclizine 12.5 mg tablet RxNorm: 039848 1 TABLET(S) PO TID NEEDE D 07/25/2018 10/22/2018 Inactive change in quantity oxcarbazepine 300 mg/5 mL (60 mg/mL) oral suspension RxNorm: 012808 15 Milliliter(s) PO BID 07/08/2018 07/07/2018 Inactive oxcarbazepine 300 mg/5 mL (60 mg/mL) oral suspension RxNorm: 177365 15 Milliliter(s) PO BID 07/08/2018 01/03/2019 Inactive sertraline 50 mg tablet RxNorm: 675210 1 TABLET(S) PO QHS 07/06/2018 12/28/2018 Inactive Singulair 10 mg tablet RxNorm: 787712 1 TABLET(S) PO QD 06/24/2018 Inactive Ciprodex 0.3 %-0.1 % ear drops,suspension RxNorm: 409937 DROP(S) 4 DROP(S) OTIC BID 06/20/2018 06/19/2018 Inactive Ciprodex 0.3 %-0.1 % ear drops,suspension RxNorm: 066276 Drop(s) DROP(S) 4 DROP(S) OTIC BID 06/20/2018 07/03/2018 Inactive cefdinir 250 mg/5 mL oral suspension RxNorm: 758451 12 Milliliter(s) PO QD though PEG tube 06/13/2018 06/22/2018 Inactive famotidine 20 mg tablet RxNorm: 190150 1 Tablet(s) PO QHS 05/31/2018 11/26/2018 Inactive famotidine 40 mg/5 mL (8 mg/mL) oral suspension RxNorm: 3102 74 2.5 Milliliter(s) PO QHS 04/29/2018 06/12/2018 Inactive meclizine 12.5 mg tablet RxNorm: 840307 1 TABLET(S) PO TID NEEDE D 04/25/2018 07/23/2018 Inactive change in quantity Generlac 10 gram/15 mL oral solution RxNorm: 199236 Mil liliter(s) 15 MILLILITER(S) PO TWO TO THREE TIMES DAILY 04/04/2018 05/03/2018 Inacti ve Ciprodex 0.3 %-0.1 % ear drops,suspension RxNorm: 620852 Drop(s) 4 DROP(S) OTIC BID 04/04/2018 04/17/2018 Inactive diazepam 10 mg tablet RxNorm: 333326 1 Tablet(s) PO QHS as needed 1 05/03/2018 Inactive famotidine 40 mg/5 mL (8 mg/mL) oral suspension RxNorm: 3102 74 2.5 Milliliter(s) PO QHS 04/04/2018 04/28/2018 Inactive Generlac 10 gram/15 mL oral solution RxNorm: 591982 15 MILLILITER(S) PO TWO TO THREE TIMES DAILY 03/24/2018 04/03/2018 Inactive Singulair 10 mg tablet RxNorm: 244047 1 TABLET(S) PO QD 03/18/2018 Inactive Ciprodex 0.3 %-0.1 % ear drops,suspension RxNorm: 738345 Drop(s) 4 DROP(S) OTIC BID 03/08/2018 03/21/2018 Inactive Generlac 10 gram/15 mL oral solution RxNorm: 334375 15 Milliliter(s) PO two to three times daily 03/03/2018 03/23/2018 Inactive meclizine 12.5 mg tablet RxNorm: 517861 1 Tablet(s) PO TID as neede d 02/10/2018 04/10/2018 Inactive change in quantity meclizine 12.5 mg tablet RxNorm: 412880 1 Tablet(s) PO BID as neede d 02/07/2018 02/09/2018 Inactive change in quantity Ciprodex 0.3 %-0.1 % ear drops,suspension RxNorm: 650720 Drop(s) 4 DROP(S) OTIC BID 02/02/2018 03/08/2018 Inactive sertraline 50 mg tablet RxNorm: 077524 1 TABLET(S) PO QHS 01/25/2018 07/05/2018 Inactive Zithromax 200 mg/5 mL oral suspension RxNorm: 497863 12.5 Dilcia liter(s) PO QD 12/31/2017 01/04/2018 Inactive Pepcid 20 mg tablet RxNorm: 969595 TABLET(S) 1 TABLET(S) PO QHS 04/29/2018 Inactive famotidine 40 mg/5 mL (8 mg/mL) oral suspension RxNorm: 3102 74 2.5 Milliliter(s) PO QHS 12/28/2017 12/27/2017 Inactive famotidine 40 mg/5 mL (8 mg/mL) oral suspension RxNorm: 3102 74 2.5 Milliliter(s) PO QHS 12/28/2017 04/03/2018 Inactive Ciprodex 0.3 %-0.1 % ear drops,suspension RxNorm: 016000 Drop(s) 4 DROP(S) OTIC BID 12/27/2017 02/02/2018 Inactive meclizine 12.5 mg tablet RxNorm: 043236 1 Tablet(s) PO BID as neede d 12/23/2017 02/06/2018 Inactive change in quantity Protonix 40 mg tablet,delayed release RxNorm: 225438 1 Tablet(s) PO or per feeding tube BID 12/16/2017 07/13/2018 Inactive oxcarbazepine 300 mg/5 mL (60 mg/mL) oral suspension RxNorm: 403976 15 Milliliter(s) PO BID 12/16/2017 07/08/2018 Inactive meclizine 12.5 mg tablet RxNorm: 636311 1 Tablet(s) PO BID as neede d 12/15/2017 02/07/2018 Inactive change in quantity Pepcid 40 mg/5 mL (8 mg/mL) oral suspension RxNorm: 647983 5 Milliliter(s) PO QHS to replace nighttime pantoprazole dose 12/14/2017 12/27/2017 Inact марина meclizine 12.5 mg tablet RxNorm: 896445 1 Tablet(s) PO BID as neede d 12/13/2017 12/23/2017 Inactive diazepam 10 mg tablet RxNorm: 729631 1 Tablet(s) PO QHS as needed 0 12/02/2017 03/01/2018 Inactive prednisolone 15 mg/5 mL oral solution RxNorm: 129308 5 Milliliter(s) PO BID for 3 days then 5ml daily for 3 days then 2.5ml daily for 3 days 12/02/2017 12/13/2017 Inactive sertraline 50 mg tablet RxNorm: 284833 1 Tablet(s) PO QHS 11/04/2017 01/24/2018 Inactive Ciprodex 0.3 %-0.1 % ear drops,suspension RxNorm: 283915 Drop(s) 4 DROP(S) OTIC BID 10/18/2017 10/31/2017 Inactive Ciprodex 0.3 %-0.1 % ear drops,suspension RxNorm: 320081 Drop(s) 4 DROP(S) OTIC BID 10/18/2017 12/27/2017 Inactive Singulair 10 mg tablet RxNorm: 128457 1 Tablet(s) PO QD 09/30/2017 Inactive diazepam 5 mg/5 mL (1 mg/mL) oral solution RxNorm: 262418 2.5 Milliliter(s) PO QD give additional 5 mg dose if seizure occurs 09/17/2017 No Stop Date A ctive Bactrim DS 800 mg-160 mg tablet RxNorm: 265845 1 Tablet(s) PO BID 0 09/17/2017 09/23/2017 Inactive Ciprodex 0.3 %-0.1 % ear drops,suspension RxNorm: 707025 4 DROP (S) OTIC BID 09/13/2017 10/18/2017 Inactive cefdinir 250 mg/5 mL oral suspension RxNorm: 773161 12 Milliliter(s) PO QD though PEG tube 08/06/2017 08/15/2017 Inactive sertraline 50 mg tablet RxNorm: 275311 1 Tablet(s) PO QHS 08/02/2017 11/04/2017 Inactive Ciprodex 0.3 %-0.1 % ear drops,suspension RxNorm: 098274 4 DROP (S) OTIC BID 07/22/2017 08/11/2017 Inactive Singulair 10 mg tablet RxNorm: 401760 1 Tablet(s) PO QD 06/30/2017 Inactive diazepam 10 mg tablet RxNorm: 043486 TAKE 1 TABLET BY M OUTH EVERY NIGHT AT BEDTIME NEEDED 06/04/2017 07/03/2017 Inactive oxcarbazepine 300 mg/5 mL (60 mg/mL) oral suspension RxNorm: 707226 15 MILLILITER(S) PO BID 05/03/2017 12/16/2017 Inactive sertraline 50 mg tablet RxNorm: 653762 1 Tablet(s) PO QHS 05/03/2017 08/02/2017 Inactive Protonix 40 mg tablet,delayed release RxNorm: 309988 1 Tablet(s) PO or per feeding tube BID 04/26/2017 12/16/2017 Inactive Ciprodex 0.3 %-0.1 % ear drops,suspension RxNorm: 176863 4 DROP (S) OTIC BID 04/26/2017 05/23/2017 Inactive Generlac 10 gram/15 mL oral solution RxNorm: 885491 Mil liliter(s) TAKE 15 ML BY MOUTH TWO-THREE TIMES DAILY 04/08/2017 03/03/2018 Inactive Singulair 10 mg tablet RxNorm: 268189 1 Tablet(s) PO QD 03/03/2017 Inactive diazepam 10 mg tablet RxNorm: 759035 1 Tablet(s) PO QHS as needed 0 02/15/2017 06/04/2017 Inactive Singulair 10 mg tablet RxNorm: 886684 1 Tablet(s) PO QD 12/01/2016 Inactive Diflucan 150 mg tablet RxNorm: 593630 Tablet(s) Give 1 tab PO now and then repeat dose in 5 days 11/10/2016 03/31/2017 Inactive Zithromax 200 mg/5 mL oral suspension RxNorm: 515103 12.5 Dilcia liter(s) PO QD 11/10/2016 11/14/2016 Inactive Singulair 10 mg tablet RxNorm: 177915 TAKE 1 TABLET BY MOUTH ON CE DAILY 11/02/2016 12/01/2016 Inactive diazepam 10 mg tablet RxNorm: 081114 TAKE 1 TABLET BY M OUTH EVERY NIGHT AT BEDTIME NEEDED 10/21/2016 11/19/2016 Inactive sertraline 50 mg tablet RxNorm: 444257 1 Tablet(s) PO QHS 10/12/2016 01/09/2017 Inactive fluconazole 100 mg tablet RxNorm: 397682 1 Tablet(s) PO QD 09/23/19 17 09/24/2016 Inactive fluconazole 100 mg tablet RxNorm: 736530 1 Tablet(s) PO QD 09/23/19 17 09/21/2016 Inactive Bactrim DS 800 mg-160 mg tablet RxNorm: 043643 1 Tablet(s) PO BID 0 09/10/2016 09/09/2016 Inactive Bactrim DS 800 mg-160 mg tablet RxNorm: 927046 1 Tablet(s) PO BID 0 09/10/2016 09/16/2016 Inactive oxcarbazepine 300 mg/5 mL (60 mg/mL) oral suspension RxNorm: 062040 15 Milliliter(s) PO BID 09/07/2016 03/05/2017 Inactive sertraline 50 mg tablet RxNorm: 405109 1 Tablet(s) PO QHS 07/06/2016 10/03/2016 Inactive Pepcid 20 mg tablet RxNorm: 245148 Tablet(s) 1 TABLET(S) PO QHS 08/201603/08/2017 Inactive sertraline 50 mg tablet RxNorm: 873739 1 Tablet(s) PO QHS 06/08/2016 05/03/2017 Inactive Generlac 10 gram/15 mL oral solution RxNorm: 326671 Mil liliter(s) TAKE 15 ML BY MOUTH TWO-THREE TIMES DAILY 06/08/2016 09/08/2016 Inactive Pepcid 20 mg tablet RxNorm: 442881 1 TABLET(S) PO QHS 06/04/201607/2016 Inactive fluconazole 100 mg tablet RxNorm: 494903 1 Tablet(s) QD through PEG tube 05/13/2016 12/01/2017 Inactive Diflucan 150 mg tablet RxNorm: 289795 Give 1 tab PO now and then repeat dose in 5 days 03/19/2016 11/09/2016 Inactive ceftriaxone 1 gram solution for injection RxNorm: 5829358 1 Gram(s) IM QD Wednesday and Wednesday03/19/2016 11/09/2016 Inactive lidocaine 10 mg/mL (1 %) injection solution RxNorm: 1683129 Use as directed to reconstitute Rocephin when needed 03/19/2016 12/13/2017 Inactive Generlac 10 gram/15 mL oral solution RxNorm: 384471 JOE E 15 ML BY MOUTH TWO- THREE TIMES DAILY 03/19/2016 06/07/2016 Inactive oxcarbazepine 300 mg/5 mL oral suspension RxNorm: 222169 15 Milliliter(s) PO BID 03/13/2016 09/07/2016 Inactive Ciprodex 0.3 %-0.1 % ear drops,suspension RxNorm: 570343 4 DROP (S) OTIC BID 03/09/2016 03/15/2016 Inactive cefdinir 250 mg/5 mL oral suspension RxNorm: 146952 11. 75 Milliliter(s) PO QD though PEG tube 03/02/2016 03/08/2016 Inactive cefdinir 250 mg/5 mL oral suspension RxNorm: 219362 11. 75 Milliliter(s) PO QD though PEG tube 02/24/2016 03/01/2016 Inactive cefdinir 250 mg/5 mL oral suspension RxNorm: 311600 11. 75 Milliliter(s) PO QD though PEG tube 02/24/2016 02/23/2016 Inactive Ciprodex 0.3 %-0.1 % ear drops,suspension RxNorm: 164234 4 Drop (s) OTIC BID 02/24/2016 03/01/2016 Inactive Generlac 10 gram/15 mL oral solution RxNorm: 335771 JOE E 15 ML BY MOUTH TWICE DAILY 02/17/2016 03/18/2016 Inactive Generlac 10 gram/15 mL oral solution RxNorm: 343020 15 Millilit er(s) PO BID 01/23/2016 02/16/2016 Inactive Pepcid 20 mg tablet RxNorm: 531891 1 TABLET(S) PO QHS 01/13/201605/07 Inactive Ciprodex 0.3 %-0.1 % ear drops,suspension RxNorm: 705075 4 Drop (s) OTIC BID 12/23/2015 12/29/2015 Inactive sertraline 50 mg tablet RxNorm: 273867 1 Tablet(s) PO QHS 12/16/2015 06/07/2016 Inactive Zithromax 500 mg tablet RxNorm: 287449 1 Tablet(s) PO QD 12/16/2015 0 12/22/2015 Inactive Pepcid 20 mg tablet RxNorm: 384035 1 Tablet(s) PO QHS 12/16/201501/02 Inactive Zithromax 500 mg tablet RxNorm: 654368 1 Tablet(s) PO QD 11/12/2015 0 11/18/2015 Inactive Singulair 10 mg tablet RxNorm: 197920 1 Tablet(s) PO BID 10/16/2015 0 11/11/2015 Inactive diazepam 10 mg tablet RxNorm: 716219 1 Tablet(s) PO QHS 10/07/2015 Inactive diazepam 10 mg tablet RxNorm: 999889 1 Tablet(s) PO QHS 10/07/2015 Inactive fexofenadine 30 mg/5 mL oral suspension RxNorm: 397941 10 Milliliter(s) PO one to two times daily PRN allergies 09/20/2015 12/15/2015 Inactive ceftriaxone 1 gram solution for injection RxNorm: 9316449 1 Gram (s) IM QD 09/20/2015 09/21/2015 Inactive Ciprodex 0.3 %-0.1 % ear drops,suspension RxNorm: 955928 4 Drop (s) OTIC BID 09/20/2015 10/03/2015 Inactive Protonix 40 mg tablet,delayed release RxNorm: 497674 1 Tablet(s) PO or per feeding tube BID 08/21/2015 12/18/2015 Inactive Carafate 100 mg/mL oral suspension RxNorm: 293688 10 Mi lliliter(s) Miscellaneous per feeding tube AC & HS 08/21/2015 09/19/2015 Inactive Zyrtec 10 mg tablet RxNorm: 7060550 1 Tablet(s) PO QD No Start Date Active diazepam 20 mg rectal kit RxNorm: 640603 RTL as needed No Start Date Active Lortab Elixir 10 mg-300 mg/15 mL oral solution RxNorm: 07043 45 8 PO Q6-8H as needed No Start Date Active ondansetron HCl 4 mg/5 mL oral solution RxNorm: 987016 10 Milliliter(s) PO as needed and through tube No Start Date Active sertraline 50 mg tablet RxNorm: 331400 1 Tablet(s) PO QD No Start D ate 12/15/2015 Inactive Brittany 180 mg tablet RxNorm: 315967 1 Tablet(s) PO QD No Start Date 06/12/2018 Inactive Generlac 10 gram/15 mL oral solution RxNorm: 272499 15 Millilit er(s) PO BID No Start Date 01/22/2016 Inactive oxcarbazepine 300 mg/5 mL oral suspension RxNorm: 488421 13.5 Milliliter(s) PO QAM and 15ml in the evening No Start Date 12/15/2015 Inactive Singulair 10 mg tablet RxNorm: 740619 1 Tablet(s) PO QD No Start Da te 11/30/2016 Inactive meclizine 12.5 mg tablet RxNorm: 086674 1 Tablet(s) PO TID as needed for dizziness No Start Date 09/13/2017 Inactive meclizine 12.5 mg tablet RxNorm: 527633 1 Tablet(s) PO BID No Start Date 12/12/2017 Inactive fluconazole 100 mg tablet RxNorm: 266486 1 Tablet(s) QD through PEG tube No Start Date 05/12/2016 Inactive Flomax 0.4 mg capsule RxNorm: 228136 1 Capsule(s) PO QD No Start Da te 06/12/2018 Inactive diazepam 10 mg tablet RxNorm: 017004 1 Tablet(s) PO QHS as needed N o Start Date 02/14/2017 Inactive Generlac 10 gram/15 mL oral solution RxNorm: 018143 15 Milliliter(s) PO two to three times daily No Start Date 03/02/2018 Inactive oxcarbazepine 300 mg/5 mL oral suspension RxNorm: 168706 15 Milliliter(s) PO BID No Start Date 12/15/2017 Inactive Medication Administered No Medication Administered data Immunizations Vaccine Codes Date Status Influenza CVX: 141 04/21/2019 Results No Results data Procedures Procedure Codes Date DEXAMETHASONE SODIUM PHOS CPT-4: J1100 10/06/2019 THER/PROPH/DIAG INJ SC/IM CPT-4: 45446 10/06/2019 DEXAMETHASONE SODIUM PHOS CPT-4: J1100 05/03/2019 THER/PROPH/DIAG INJ SC/IM CPT-4: 92447 05/03/2019 CEFTRIAXONE SODIUM INJECTION CPT-4: J0696 03/19/2016 THER/PROPH/DIAG INJ SC/IM CPT-4: 91076 03/19/2016 DEXAMETHASONE SODIUM PHOS CPT-4: J1100 11/12/2015 THER/PROPH/DIAG INJ SC/IM CPT-4: 76302 11/12/2015 CEFTRIAXONE SODIUM INJECTION CPT-4: J0696 09/20/2015 THER/PROPH/DIAG INJ SC/IM CPT-4: 70793 09/20/2015 THER/PROPH/DIAG INJ SC/IM CPT-4: 50081 09/10/2015 METHYLPREDNISOLONE 40 MG INJ CPT-4: J1030 09/10/2015 TRIAMCINOLONE ACET INJ NOS CPT-4: J3301 09/10/2015 Vital Signs Date Vital 07/25/2019 Blood Pressure 1: 116/80 Code: 8480-6 BMI: 23.2 Code: 92887-7 Heart Rate 1: 81 bpm Height: 4'5" Respiratory Rate: 16 bpm SpO2: 100% Tempera ture: 36.8 (C) / 98.2 (F) Weight: 92 lbs 06/12/2019 Blood Pressure 1: 112/74 Code: 8480-6 BMI: 23.2 Code: 13497-3 Heart Rate 1: 102 bpm Height: 4'5" [...] 1: 114/70 Code: 8480-6 BMI: 23.1 Code: 24789-2 Heart Rate 1: 80 bpm Height: 4'6" [...] visit Encounters Encounter Performer Location Codes Date ([id number]) NURSE/OUTPATIENT VISIT EST Diagnosis: Allergic rhinitis, unspecified[ICD10: J30.9] Keily ARANGO DO [facility] CPT-4: 79952 10/06/2019 ([id number]) OFFICE/OUTPATIENT VISIT EST Diagnosis: Allergic rhinitis[ICD10: J30.9] [facility] 10464 10/05/2019 ([id number]) OFFICE/OUTPATIENT VISIT EST Diagnosis: Sinusitis[ICD10: J32.9] Fatou GILBERT [employer] [facility] CPT-4: 00055 07/25/2019 ([id number]) PREV VISIT EST AGE 18-39 Diagnosis: Encounter for general adult medical examination with abnormal findings[ICD10: Z00.01] Diagnosis: Chronic pancreatitis[ICD10: K86.1] Diagnosis: Cerebral palsy, unspecified[ICD10: G80.9] Keily ARANGO [employer] [facility] CPT-4: 43564 06/12/2019 ([id number]) OFFICE/OUTPATIENT VISIT EST Diagnosis: Pneumonia, organism unspecified[ICD10: J18.9] Diagnosis: Breast mass, right[ICD10: N63.10] Keily ARANGO [employer] [facility] CPT-4: 77685 05/08/2019 ([id number]) OFFICE/OUTPATIENT VISIT EST Diagnosis: Allergic rhinitis due to pollen[ICD10: J30.1] Diagnosis: Otitis media, unspecified, right ear[ICD10: H66.91] Fatou [facility]ANGO DO [facility] CPT-4: 63955 05/03/2019 ([id number]) OFFICE/OUTPATIENT VISIT EST Diagnosis: Irritability and anger[ICD10: R45.4] Nataliia Hsieh BLANCA ARANGO [employer] [facility] CPT-4: 06040 11/25/2018 ([id number]) OFFICE/OUTPATIENT VISIT EST Diagnosis: Acute suppurative otitis media without spontaneous rupture of ear drum, bilateral[ICD10: H66.003] Fatou [facility]ANGO DO [facility] CPT-4: 74589 06/13/2018 ([id number]) OFFICE/OUTPATIENT VISIT EST Diagnosis: Other fatigue[ICD10: R53.83] Diagnosis: Anuria and oliguria[ICD10: R34] Diagnosis: Acute gastritis without bleeding[ICD10: K29.00] Fatou ARANGO DO [facility] CPT-4: 78915 01/04/2018 ([id number]) OFFICE/OUTPATIENT VISIT EST Diagnosis: Acute bronchitis, unspecified[ICD10: J20.9] Fatou [facility]ANGO DO [facility] CPT-4: 74904 12/31/2017 ([id number]) PREV VISIT EST AGE 18-39 Diagnosis: Encounter for general adult medical examination without abnormal findings[ICD10: Z00.00] Diagnosis: Severe intellectual disabilities[ICD10: F72] Diagnosis: Allergic rhinitis due to pollen[ICD10: J30.1] Diagnosis: Epilepsy, unspecified, intractable, without status epilepticus[ICD10: G40.919] Diagnosis: Gastro-esophageal reflux disease without esophagitis[ICD10: K21.9] [facility]ily [facility] CPT-4: 44895 12/14/2017 ([id number]) OFFICE/OUTPATIENT VISIT EST Diagnosis: Allergic rhinitis due to pollen[ICD10: J30.1] Diagnosis: Epilepsy, unspecified, intractable, without status epilepticus[ICD10: G40.919] [facility]ily [facility] CPT-4: 17341 12/02/2017 ([id number]) OFFICE/OUTPATIENT VISIT EST Diagnosis: Other allergic rhinitis[ICD10: J30.89] Fatou [facility] CPT-4: 97013 10/12/2017 OFFICE/OUTPATIENT VISIT EST Diagnosis: Acute suppurative otitis media without spontaneous rupture of ear drum, recurrent, left ear[ICD10: H66.005] Diagnosis: Epilepsy, unspecified, intractable, without status epilepticus[ICD10: G40.919] Diagnosis: Hesitancy of micturition[ICD10: R39.11] Fatou ARANGO DO [facility] CPT-4: 50774 09/17/2017 OFFICE/OUTPATIENT VISIT EST Diagnosis: Otitis media, unspecified, left ear[ICD10: H66.92] Fatou [facility] CPT-4: 38515 08/06/2017 ([id number]) OFFICE/OUTPATIENT VISIT EST Diagnosis: Vertigo of central origin, 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.49] Diagnosis: Dizziness and giddiness[ICD10: R42] Keily NARANJO Diamante [facility] CPT-4: 52652 04/01/2017 OFFICE/OUTPATIENT VISIT EST Diagnosis: Vomiting, unspecified[ICD10: R11.10] Diagnosis: 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)[ICD10: K56.5] Diagnosis: Personal history of urinary calculi[ICD10: Z87.442] Emely Hdz KEILY [facility] CPT-4: 11008 03/01/2017 ([id number]) OFFICE/OUTPATIENT VISIT EST Diagnosis: Allergic rhinitis due to pollen[ICD10: J30.1] Diagnosis: Acute and subacute allergic otitis media (mucoid) (sanguinous) (serous), left ear[ICD10: H65.112] [facility] CPT-4: 06997 11/10/2016 ([id number]) OFFICE/OUTPATIENT VISIT EST Diagnosis: 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] Diagnosis: Unspecified ovarian cyst, right side[ICD10: N83.201] Diagnosis: Cyst of kidney, 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] Keily CERON Diamante [facility] CPT-4: 16409 08/13/2016 ([id number]) OFFICE/OUTPATIENT VISIT EST Diagnosis: Rash and other nonspecific skin eruption[ICD10: R21] Aziza Magallanes KEILY Diamante [facility] CPT-4: 01983 03/27/2016 ([id number]) OFFICE/OUTPATIENT VISIT EST Diagnosis: Urinary tract infection, site not specified[ICD10: N39.0] Keily LINARES Diamante [facility] CPT-4: 15837 03/23/2016 ([id number]) OFFICE/OUTPATIENT VISIT EST Diagnosis: Retention of urine, unspecified[ICD10: R33.9] Diagnosis: Dysuria[ICD10: R30.0] Diagnosis: Constipation, unspecified[ICD10: K59.00] Aziza Magallanes SIOMARA LAWTON Diamante [facility] CPT-4: 82923 03/19/2016 ([id number]) OFFICE/OUTPATIENT VISIT EST Diagnosis: Acute sinusitis, unspecified[ICD10: J01.90] Keily [facility] CPT-4: 49736 03/02/2016 OFFICE/OUTPATIENT VISIT EST Diagnosis: Other fatigue[ICD10: R53.83] Diagnosis: Retention of urine, unspecified[ICD10: R33.9] Diagnosis: Dysuria[ICD10: R30.0] Diagnosis: Generalized abdominal pain[ICD10: R10.84] 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] Aziza [facility] CPT-4: 27364 02/24/2016 ([id number]) OFFICE/OUTPATIENT VISIT EST Diagnosis: Chronic mucoid otitis media, right ear[ICD10: H65.31] Diagnosis: Allergic rhinitis, unspecified[ICD10: J30.9] Diagnosis: 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] Keily [facility] CPT-4: 93026 12/16/2015 ([id number]) OFFICE/OUTPATIENT VISIT EST Diagnosis: Allergic rhinitis, unspecified[ICD10: J30.9] Diagnosis: Acute recurrent sinusitis, unspecified[ICD10: J01.91] Keily [facility] CPT-4: 93169 11/12/2015 ([id number]) OFFICE/OUTPATIENT VISIT EST Diagnosis: Other seasonal allergic rhinitis[ICD10: J30.2] Diagnosis: Nausea with vomiting, unspecified[ICD10: R11.2] Diagnosis: Epigastric pain[ICD10: R10.13] Aziza [facility] CPT-4: 76208 10/16/2015 OFFICE/OUTPATIENT VISIT EST Diagnosis: Encounter for follow-up examination after completed treatment for conditions other than malignant neoplasm[ICD10: Z09] Diagnosis: Generalized abdominal pain[ICD10: R10.84] Keily [facility] [employer] [facility] CPT-4: 72360 09/23/2015 ([id number]) OFFICE/OUTPATIENT VISIT EST Diagnosis: Otitis media, unspecified, right ear[ICD10: H66.91] Diagnosis: Constipation, unspecified[ICD10: K59.00] Diagnosis: Allergic rhinitis, unspecified[ICD10: J30.9] Aziza [facility] [employer] [facility] CPT-4: 23518 09/20/2015 OFFICE/OUTPATIENT VISIT EST Diagnosis: Allergic rhinitis, unspecified[ICD10: J30.9] Diagnosis: Unspecified perforation of tympanic membrane, right ear[ICD10: H72.91] Bibiana [facility] [employer] [facility] CPT-4: 07711 09/10/2015 OFFICE/OUTPATIENT VISIT NEW Diagnosis: Epilepsy, unspecified, intractable, without status epilepticus[ICD10: G40.919] Diagnosis: Gastric ulcer, unspecified as acute or chronic, without hemorrhage or perforation[ICD10: K25.9] Diagnosis: Severe intellectual disabilities[ICD10: F72] Keily [facility] [employer] [facility] CPT-4: 72097 08/21/2015 Plan of Care Planned Activity Notes [...] ICD-10 : J30.9 10/05/2019 Appointment: Fatou Onofre [address] [place], [place] [address]a [address] TELEMEDICINE 10/05/2019 Visit Diagnosis Plan: Sinusitis Discussion: due to dean h of illness and symptoms, cefdinir prescribed to take as directed. call office with any new or worsening symptoms. ICD-9 : 473.9 ICD-10 : J32.9 07/25/2019 Appointment: Fatou Onofre [address] [place], [place] [address] [address] ACUTE ILLNESS 07/25/2019 Patient Education: cefdinir- [employer] Coupon [id number] https://www.[employer].com/samplemd/resources/getResource/61/vy0z8mbq-0778-7668-9r Completed 07/25/2019 Visit Diagnosis Plan: Chronic pancreatitis Discussion: Continue zenpep and recheck CMP with amylase/lipase in 1 month ICD-9 : 577.1 ICD-10 : K86.1 06/12/2019 Appointment: Keily Arango [phone] [facility] [facility] Well Visit 06/12/2019 Visit Diagnosis Plan: [...] J18.9 05/08/2019 Appointment: Keily Arango WPtel: [facility] [facility] Follow Up 05/08/2019 Visit Diagnosis Plan: [...] ICD-10 : J30.1 05/03/2019 Appointment: Fatou Onofre [address] [place], [place] [address] ACUTE ILLNESS 05/03/2019 Patient Education: amoxicillin- [employer] Coupon [id number] https://www.[employer]/samplems/resources/getResource/61/cwm90477-09n7-1918-20 Completed 05/03/2019 Visit Diagnosis Plan: Irritability and [...] ICD-10 : R45.4 11/25/2018 Appointment: [facility] [address] ACUTE ILLNESS 11/25/2018 Visit Diagnosis Plan: Acute suppurative otitis media without spontaneous rupture of ear drum, bilateral Discussion: cefdinir for 10 days. if wor sening symptoms later this week, call clinic. push fluids and tylenol/ibuprofen prn pain or fever. ICD-9 : 382.00 ICD-10 : H66.003 06/13/2018 Appointment: Fatou Onofre [address] [place] [address] ACUTE ILLNESS 06/13/2018 Visit Diagnosis Plan: Anuria [...] ICD-10 : R53.83 01/04/2018 Appointment: Fatou Onofre [address] [place] [address] ACUTE ILLNESS 01/04/2018 Patient Education: Patient Medication Summary Completed 01/04/2018 Visit Diagnosis Plan: Acute bronchitis, unspecified Di scussion: zithromax prescribed to take as directed. continue with allergy meds including flonase to help dry congestion. call office next week if new or worsening symptoms. ICD-9 : 466.0 ICD-10 : J20.9 12/31/2017 Appointment: Fatou Onofre [address] [place] [address] ACUTE ILLNESS 12/31/2017 Patient Education: Patient Medication Summary Completed 12/31/2017 Visit Diagnosis Plan: Epilepsy, unspecif ied, intractable, without status epilepticus Discussion: Stable on current regimen ICD-9 : 345.91 ICD-10 : G40.919 12/14/2017 Visit Diagnosis Plan: Encounter for [facility] medical examination without abnormal findings Discussion: Had recent lab done Follow Up: 3 months ICD-9 : V70.9 ICD-10 : Z00.00 12/14/2017 Visit Diagnosis Plan: Allergic rhinitis due to pollen Discussion: Continue current meds Change night time protonix to pepcid for total histamine blockade ICD-9 : 477.9 ICD-10 : J30.1 12/14/2017 Appointment: Keily Arnago WPtel: [address] [place] [address] CHECK UP 12/14/2017 Patient Education: Patient Medication [...] J30.1 12/02/2017 Appointment: Keily Arango WPtel: [phone] ACUTE ILLNESS 12/02/2017 Patient Education: Patient Medication Summary Completed 12/02/2017 Visit Diagnosis Plan: Other allergic rhinitis Discussi on: symptoms most likely caused from allergies. patient sent to hospital for decadron injection. instructed to restart patient's flonase at home. if new or worsening symptoms, call or rtc. ICD-9 : 477.8 ICD-10 : J30.89 10/12/2017 Appointment: Fatou Onofre [address] [place], [place] [phone] ACUTE ILLNESS 10/12/2017 Patient Education: Patient Medication [...] ICD-10 : G40.919 09/17/2017 Appointment: Fatou Onofre [address] [place] [address] ACUTE ILLNESS 09/17/2017 Patient Education: Patient Medication Summary Completed 09/17/2017 Visit Diagnosis Plan: Otitis media, unspecified, left ear Discussion: cefdinir prescribed daily for 10 days. instructed to administer tylenol/ibuprofen for pain or fever. if no improvement, or worsening symptoms, call or rtc. ICD-9 : 380.14 ICD-10 : H66.92 08/06/2017 Appointment: Fatou Onofre [address] [place] [address] ACUTE ILLNESS 08/06/2017 Patient Education: Patient Medication Summary Completed 08/06/2017 Patient Education: Patient Medication Summary Completed 08/02/2017 Patient Education: Patient Medication Summary Completed 04/21/2017 Care Plan: MRI BRAIN STEM W/O DYE [facility] : 71315-4 Pending 04/21/2017 Patient Education: Patient Medication Summary Completed 04/20/2017 Care Plan: MRI BRAIN STEM W/O DYE LOINC : 84810-3 Pending 04/20/2017 Visit Diagnosis Plan: Vertigo of central origin, unspe cified ear Discussion: Continue meclizine at 12.5mg po BID for 2 more weeks then go to 12.5mg daily for 2 weeks then 6.25mg daily for 2 weeks then stop Notify if any symptoms return with weaning process ICD-9 : 386.2 ICD-10 : H81.49 04/01/2017 Appointment: Keily Arango WPtel: [address] [place], [place] [phone] FOLLOW UP 04/01/2017 Patient Education: Patient Medication Summary Completed 04/01/2017 Patient Education: Patient Medication Summary Completed 03/09/2017 Care Plan: CT HEAD/BRAIN W/O DYE LOINC : 17791-7 Pending 03/09/2017 Visit Plan: It's difficult to [...] medications indicated. 03/01/2017 Appointment: Emely Hdz WPtel: [address] [place] [address] ACUTE ILLNESS 03/01/2017 Patient Education: Patient Medication Summary Completed 03/01/2017 Patient Education: Patient Medication Summary Completed 12/17/2016 Visit Diagnosis Plan: Allergic rhinitis due to pollen Discussion: Continue zyrtec/singulair ICD-9 : 477.9 ICD-10 : J30.1 11/10/2016 Visit Diagnosis Plan: Acute and subacute allergic otitis media (mucoid) (sanguinous) (serous), left ear Discussion: Zithromax ICD-9 : 381.05 ICD-10 : H65.112 11/10/2016 Appointment: Keily Arango WPtel: [facility] [place] [phone] ACUTE ILLNESS 11/10/2016 Patient Education: Patient Medication Summary Completed 11/10/2016 Patient Education: Patient Medication Summary Completed 09/07/2016 Care Plan: URINALYSIS [place] : 53859-2 Pending 09/07/2016 Visit Diagnosis Plan: Unspecified ovarian [...] : N20.0 08/13/2016 Appointment: Keily Arango WPtel: [address] [place] [address] 08/12 confirmed-sp FOLLOW UP 08/13/2016 Patient Education: Patient Medication Summary Completed 08/13/2016 Patient Education: Patient Medication Summary Completed 05/19/2016 Care Plan: X-RAY EXAM OF FOOT left foot LOINC : 26 095-0 Pending 05/19/2016 Visit Plan: Discussed with Dr Conchita MAGANA C to be drawn Order sent to Will call with results 03/27/2016 Appointment: Aziza Magallanes [address] [place] [address] ACUTE ILLNESS 03/27/2016 Patient Education: Patient Medication Summary Completed 03/27/2016 Visit Plan: Go for dose of rocephin 1gm IM today and tomorrow then done Diflucan 150mg x1 today Discussed with mom via phone about urology fwup--she will talk with her and let us know 03/23/2016 Appointment: Keily Arango WPtel: [address] [place], [place] [phone] 03/23 confirmed ~sl FOLLOW UP 03/23/2016 Patient Education: Patient Medication Summary Completed 03/23/2016 Visit Plan: Per Dr Arango, straight cat h for UA and culture today Ok to have a standing order for further UA needs at for straight cath Rocephin IM today and daily through Wednesday Mom has arranged a family friend that is an [employer] to give Wednesday and Sundays injections - [...] us know 03/19/2016 Appointment: Aziza Magallanes [address] [facility] ACUTE ILLNESS 03/19/2016 Patient Education: Patient Medication Summary Completed 03/19/2016 Visit Plan: 1 more week of cefdinir 03/02/2016 Appointment: Keily Arango WPtel: [address] [place], [place] [phone] 03/02 confirmed~sl WORK IN 03/02/2016 Patient Education: [...] seen if worsening 02/24/2016 Appointment: Aziza Magallanes [address] [place] [phone] ACUTE ILLNESS 02/24/2016 Patient Education: Patient Medication Summary Completed 02/24/2016 Care Plan: CHEST X-RAY 2VW FRONTAL&LATL LOINC : 39021-4 Pending 02/24/2016 Care Plan: X-RAY EXAM OF ABDOMEN LOINC : 52228-4 Pending 02/24/2016 Visit Plan: Repeat zithromax x1 week Cip rodex to right ear x1 week Add Pepcid q HS x2-4 weeks for total histamine blockade and for extra stomach protection while on zithromax 12/16/2015 Appointment: Keily Arango WPtel: [phone] [facility] US 6/9 lm~sl 6/10 lm ~sl FOLLOW UP 12/16/2015 Patient Education: Patient Medication Summary Completed 12/16/2015 Patient Education: [facility] - Saving [employer] - Sertraline HCL - 18-64 - Dynamic Portal ID Completed 12/16/2015 Visit Plan: Saline nasal flushes prn. Ty lenol/Motrin prn headache. Notify if persists/symptoms worsens Dexamethasone given 11/12/2015 Appointment: Keily Arango WPtel: [phone] [facility] US 5/9 lm~sl 5/10 lm~sl 5/10 [...] visits for Belkys 10/16/2015 Appointment: Aziza Magallanes [address] [place], [place] [phone] ACUTE ILLNESS 10/16/2015 Patient Education: Patient Medication Summary Completed 10/16/2015 Appointment: Aziza Magallanes [address] [place], [place] [phone] [place] canceled, feeling better CANCELED 016 Visit Plan: No further abx needed Go mariela k to jevity for next 3 days and restart carafate Notify if abdominal pain worsens 09/23/2015 Appointment: Keily Arango WPtel: [phone] [facility] 09/19 confirmed-sp FOLLOW UP 09/23/2015 Patient Education: [...] sent to [facility] since [facility] does not have in [...] try for now. 09/20/2015 Appointment: Aziza Magallanes [address] [place] [phone] ACUTE ILLNESS 09/20/2015 Patient Education: Patient Medication Summary Completed 09/20/2015 Visit Plan: Depo Medrol 40mg/ Kenalog 40 mg IM today Resume Ciprodex otic gtts. bid to Rt. ear 09/10/2015 Appointment: Bibiana Garg WPtel: [phone] [facility] 09/08 confirmed-sp ACUTE ILLNESS 09/10/2015 Patient Education: Patient Medication Summary Completed 09/10/2015 Visit Plan: Increase Protonix to 40mg po BID for 1month Continue carafate at q AC dosing for full month then wean off Jevity for 2 more days then advance diet if able Continue current meds 08/21/2015 Appointment: Keiyl Arango WPtel: [phone] [facility] [place] NEW PATIENT 08/21/2015 Patient Education: Patient [...] arranged a family friend that is an [employer] to give Wednesday and Sundays injections - [...] sent to [facility] since [facility] does not have in [...]
--- OUTSIDE RECORDS SUMMARY | 2019-11-10 19:34 | XMS REPORT | CCD ---
Author Author Belkys Arango D.O. 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 Name Role Phone Keily Arango D.O., PP Unavailable CCM Unavailable Summary Purpose Interface Exchange Insurance Providers Payer name Policy type / Coverage type Covered republican ID Effective Begin Date Effective End Date [employer] [facility] Medicaid [id number] U nknown Family History Family History data not found Social History Social History Element Codes Description Effective Dates Marital status Unknown Single 08/21/2015 Employment Unknown Currently unemployed Physically handicapped 08/21/[address]: 565053999 Has never smoked or chewed tobacco 08/21/[address]: 709867711 Never drinks alcohol 2015 Allergies, Adverse Reactions, Alerts Substance Reaction Codes Entered Date Inactivated Date Status * NO KNOWN FOOD ALLERGIES Unknown 08/21/2015 No Inactiv e Date Active * NO KNOWN DRUG ALLERGIES Unknown 08/21/2015 No Inactiv e Date Active _ Unknown 08/21/2015 No Inactive Date Active Problems Condition Codes Effective Dates Condition Status Allergic rhinitis ICD-9: 477.9 ICD-10: J30.9 12/15/2015 Active Sinusitis [...] Ciprodex 0.3 %-0.1 % ear drops,suspension RxNorm: 929459 SHAKE LIQUID AND INSTILL 4 DROPS IN AFFECTED EAR(S) TWICE DAILY 09/22/2019 10/15/2019 A ctive diazepam 10 mg tablet RxNorm: 738097 TAKE 1 TABLET BY M OUTH EVERY NIGHT AT BEDTIME NEEDED 09/11/2019 10/10/2019 Active meclizine 12.5 mg tablet RxNorm: 190593 TAKE 1 TABLET B Y MOUTH THREE TIMES DAILY NEEDED 08/31/2019 10/29/2019 Active Ciprodex 0.3 %-0.1 % ear drops,suspension RxNorm: 285885 SHAKE LIQUID AND INSTILL 4 DROPS IN AFFECTED EAR(S) TWICE DAILY 08/31/2019 09/07/2019 I nactive Ciprodex 0.3 %-0.1 % ear drops,suspension RxNorm: 708421 SHAKE LIQUID AND INSTILL 4 DROPS IN AFFECTED EAR(S) TWICE DAILY 08/11/2019 08/18/2019 I nactive meclizine 12.5 mg tablet RxNorm: 475524 TAKE 1 TABLET B Y MOUTH THREE TIMES DAILY NEEDED 08/04/2019 08/30/2019 Inactive cefdinir 250 mg/5 mL oral suspension RxNorm: 367601 12 Milliliter(s) Oral QD though PEG tube 07/25/2019 08/03/2019 Inactive Zenpep 40,000 unit-126,000 unit-168,000 unit capsule,d elayed release RxNorm: 2274572 1 Capsule(s) Oral AC 07/10/2019 11/06/2019 Active famotidine 20 mg tablet RxNorm: 231919 TAKE 1 TABLET BY MOUTH EVERY NIGHT AT BEDTIME 07/09/2019 01/04/2020 Active sertraline 50 mg tablet RxNorm: 221770 TAKE 1 TABLET BY MOUTH EVERY NIGHT AT BEDTIME 07/09/2019 09/06/2019 Inactive Zenpep 40,000 unit-126,000 unit-168,000 unit capsule,d elayed release RxNorm: 5861967 1 Capsule(s) Oral AC 06/12/2019 07/09/2019 Inactive Zenpep 40,000 unit-126,000 unit-168,000 unit capsule,d elayed release RxNorm: 7671563 1 Capsule(s) Oral AC 05/24/2019 05/23/2019 Inactive Zenpep 40,000 unit-126,000 unit-168,000 unit capsule,d elayed release RxNorm: 7941925 1 Capsule(s) Oral AC 05/24/2019 06/11/2019 Inactive Ciprodex 0.3 %-0.1 % ear drops,suspension RxNorm: 551716 DROP(S) 4 DROP(S) OTIC BID 05/22/2019 06/18/2019 Inactive oxcarbazepine 300 mg/5 mL (60 mg/mL) oral suspension RxNorm: 621266 15 Milliliter(s) Oral two times a day 05/08/2019 11/03/2019 Active meclizine 12.5 mg tablet RxNorm: 822954 1 TABLET(S) PO TID NEEDE D 05/05/2019 08/02/2019 Inactive change in quantity Zithromax 200 mg/5 mL oral suspension RxNorm: 915041 12.5 Dilcia liter(s) Oral QD 05/04/2019 05/09/2019 Inactive amoxicillin 400 mg/5 mL oral suspension RxNorm: 157542 10 Milliliter(s) Oral two times a day 05/03/2019 05/13/2019 Inactive Singulair 10 mg tablet RxNorm: 576959 1 TABLET(S) PO QD 03/28/2019 Inactive Macrobid 100 mg capsule RxNorm: 383457 1 Capsule(s) PO BID 03/16/2003/22/2019 Inactive meclizine 12.5 mg tablet RxNorm: 022056 1 Tablet(s) PO TID as neede d 03/10/2019 05/04/2019 Inactive change in quantity Ciprodex 0.3 %-0.1 % ear drops,suspension RxNorm: 303728 DROP(S) 4 DROP(S) OTIC BID 03/08/2019 04/04/2019 Inactive oxcarbazepine 300 mg/5 mL (60 mg/mL) oral suspension RxNorm: 179042 15 Milliliter(s) PO BID 03/07/2019 05/07/2019 Inactive Macrobid 100 mg capsule RxNorm: 466994 1 Capsule(s) PO BID 02/21/2003/01/2019 Inactive Macrobid 100 mg capsule RxNorm: 646392 1 Capsule(s) PO BID 02/21/2002/19/2019 Inactive meclizine 12.5 mg tablet RxNorm: 273077 1 Tablet(s) PO TID as neede d 02/06/2019 03/07/2019 Inactive change in quantity Ciprodex 0.3 %-0.1 % ear drops,suspension RxNorm: 190949 DROP(S) 4 DROP(S) OTIC BID 01/30/2019 02/12/2019 Inactive diazepam 10 mg tablet RxNorm: 138490 1 Tablet(s) PO QHS as needed 0 01/27/2019 09/10/2019 Inactive sertraline 50 mg tablet RxNorm: 954773 1 Tablet(s) PO QHS 12/29/2018 06/26/2019 Inactive famotidine 20 mg tablet RxNorm: 426208 1 Tablet(s) PO QHS 12/29/2018 06/26/2019 Inactive Ciprodex 0.3 %-0.1 % ear drops,suspension RxNorm: 765404 DROP(S) 4 DROP(S) OTIC BID 12/14/2018 12/27/2018 Inactive Generlac 10 gram/15 mL oral solution RxNorm: 769954 15 Milliliter(s) PO TWO TO THREE TIMES DAILY 12/06/2018 06/03/2019 Inactive Protonix 40 mg tablet,delayed release RxNorm: 985676 1 Tablet(s) PO or per feeding tube BID 11/24/2018 05/22/2019 Inactive meclizine 12.5 mg tablet RxNorm: 219366 1 Tablet(s) PO TID as neede d 11/11/2018 02/06/2019 Inactive change in quantity Ciprodex 0.3 %-0.1 % ear drops,suspension RxNorm: 358781 DROP(S) 4 DROP(S) OTIC BID 11/08/2018 11/21/2018 Inactive diazepam 10 mg tablet RxNorm: 819270 1 Tablet(s) PO QHS as needed 0 10/21/2018 11/19/2018 Inactive Generlac 10 gram/15 mL oral solution RxNorm: 684000 Mil liliter(s) 15 MILLILITER(S) PO TWO TO THREE TIMES DAILY 10/07/2018 11/05/2018 Inacti ve Ciprodex 0.3 %-0.1 % ear drops,suspension RxNorm: 629853 DROP(S) DROP(S) 4 DROP(S) OTIC BID 08/26/2018 03/15/2019 Inactive meclizine 12.5 mg tablet RxNorm: 077753 1 TABLET(S) PO TID NEEDE D 07/25/2018 10/22/2018 Inactive change in quantity oxcarbazepine 300 mg/5 mL (60 mg/mL) oral suspension RxNorm: 396038 15 Milliliter(s) PO BID 07/08/2018 07/07/2018 Inactive oxcarbazepine 300 mg/5 mL (60 mg/mL) oral suspension RxNorm: 254527 15 Milliliter(s) PO BID 07/08/2018 01/03/2019 Inactive sertraline 50 mg tablet RxNorm: 921794 1 TABLET(S) PO QHS 07/06/2018 12/28/2018 Inactive Singulair 10 mg tablet RxNorm: 169957 1 TABLET(S) PO QD 06/24/2018 Inactive Ciprodex 0.3 %-0.1 % ear drops,suspension RxNorm: 578610 DROP(S) 4 DROP(S) OTIC BID 06/20/2018 06/19/2018 Inactive Ciprodex 0.3 %-0.1 % ear drops,suspension RxNorm: 227873 Drop(s) DROP(S) 4 DROP(S) OTIC BID 06/20/2018 07/03/2018 Inactive cefdinir 250 mg/5 mL oral suspension RxNorm: 659237 12 Milliliter(s) PO QD though PEG tube 06/13/2018 06/22/2018 Inactive famotidine 20 mg tablet RxNorm: 871830 1 Tablet(s) PO QHS 05/31/2018 11/26/2018 Inactive famotidine 40 mg/5 mL (8 mg/mL) oral suspension RxNorm: 3102 74 2.5 Milliliter(s) PO QHS 04/29/2018 06/12/2018 Inactive meclizine 12.5 mg tablet RxNorm: 909606 1 TABLET(S) PO TID NEEDE D 04/25/2018 07/23/2018 Inactive change in quantity Generlac 10 gram/15 mL oral solution RxNorm: 463168 Mil liliter(s) 15 MILLILITER(S) PO TWO TO THREE TIMES DAILY 04/04/2018 05/03/2018 Inacti ve Ciprodex 0.3 %-0.1 % ear drops,suspension RxNorm: 322791 Drop(s) 4 DROP(S) OTIC BID 04/04/2018 04/17/2018 Inactive diazepam 10 mg tablet RxNorm: 159993 1 Tablet(s) PO QHS as needed 1 05/03/2018 Inactive famotidine 40 mg/5 mL (8 mg/mL) oral suspension RxNorm: 3102 74 2.5 Milliliter(s) PO QHS 04/04/2018 04/28/2018 Inactive Generlac 10 gram/15 mL oral solution RxNorm: 917587 15 MILLILITER(S) PO TWO TO THREE TIMES DAILY 03/24/2018 04/03/2018 Inactive Singulair 10 mg tablet RxNorm: 110852 1 TABLET(S) PO QD 03/18/2018 Inactive Ciprodex 0.3 %-0.1 % ear drops,suspension RxNorm: 556706 Drop(s) 4 DROP(S) OTIC BID 03/08/2018 03/21/2018 Inactive Generlac 10 gram/15 mL oral solution RxNorm: 124131 15 Milliliter(s) PO two to three times daily 03/03/2018 03/23/2018 Inactive meclizine 12.5 mg tablet RxNorm: 976956 1 Tablet(s) PO TID as neede d 02/10/2018 04/10/2018 Inactive change in quantity meclizine 12.5 mg tablet RxNorm: 227169 1 Tablet(s) PO BID as neede d 02/07/2018 02/09/2018 Inactive change in quantity Ciprodex 0.3 %-0.1 % ear drops,suspension RxNorm: 622822 Drop(s) 4 DROP(S) OTIC BID 02/02/2018 03/08/2018 Inactive sertraline 50 mg tablet RxNorm: 840992 1 TABLET(S) PO QHS 01/25/2018 07/05/2018 Inactive Zithromax 200 mg/5 mL oral suspension RxNorm: 492852 12.5 Dilcia liter(s) PO QD 12/31/2017 01/04/2018 Inactive Pepcid 20 mg tablet RxNorm: 950234 TABLET(S) 1 TABLET(S) PO QHS 04/29/2018 Inactive famotidine 40 mg/5 mL (8 mg/mL) oral suspension RxNorm: 3102 74 2.5 Milliliter(s) PO QHS 12/28/2017 12/27/2017 Inactive famotidine 40 mg/5 mL (8 mg/mL) oral suspension RxNorm: 3102 74 2.5 Milliliter(s) PO QHS 12/28/2017 04/03/2018 Inactive Ciprodex 0.3 %-0.1 % ear drops,suspension RxNorm: 107883 Drop(s) 4 DROP(S) OTIC BID 12/27/2017 02/02/2018 Inactive meclizine 12.5 mg tablet RxNorm: 979669 1 Tablet(s) PO BID as neede d 12/23/2017 02/06/2018 Inactive change in quantity Protonix 40 mg tablet,delayed release RxNorm: 339544 1 Tablet(s) PO or per feeding tube BID 12/16/2017 07/13/2018 Inactive oxcarbazepine 300 mg/5 mL (60 mg/mL) oral suspension RxNorm: 084334 15 Milliliter(s) PO BID 12/16/2017 07/08/2018 Inactive meclizine 12.5 mg tablet RxNorm: 278376 1 Tablet(s) PO BID as neede d 12/15/2017 02/07/2018 Inactive change in quantity Pepcid 40 mg/5 mL (8 mg/mL) oral suspension RxNorm: 162068 5 Milliliter(s) PO QHS to replace nighttime pantoprazole dose 12/14/2017 12/27/2017 Inact марина meclizine 12.5 mg tablet RxNorm: 657818 1 Tablet(s) PO BID as neede d 12/13/2017 12/23/2017 Inactive diazepam 10 mg tablet RxNorm: 100269 1 Tablet(s) PO QHS as needed 0 12/02/2017 03/01/2018 Inactive prednisolone 15 mg/5 mL oral solution RxNorm: 999981 5 Milliliter(s) PO BID for 3 days then 5ml daily for 3 days then 2.5ml daily for 3 days 12/02/2017 12/13/2017 Inactive sertraline 50 mg tablet RxNorm: 491202 1 Tablet(s) PO QHS 11/04/2017 01/24/2018 Inactive Ciprodex 0.3 %-0.1 % ear drops,suspension RxNorm: 880268 Drop(s) 4 DROP(S) OTIC BID 10/18/2017 10/31/2017 Inactive Ciprodex 0.3 %-0.1 % ear drops,suspension RxNorm: 020971 Drop(s) 4 DROP(S) OTIC BID 10/18/2017 12/27/2017 Inactive Singulair 10 mg tablet RxNorm: 397474 1 Tablet(s) PO QD 09/30/2017 Inactive diazepam 5 mg/5 mL (1 mg/mL) oral solution RxNorm: 087874 2.5 Milliliter(s) PO QD give additional 5 mg dose if seizure occurs 09/17/2017 No Stop Date A ctive Bactrim DS 800 mg-160 mg tablet RxNorm: 049137 1 Tablet(s) PO BID 0 09/17/2017 09/23/2017 Inactive Ciprodex 0.3 %-0.1 % ear drops,suspension RxNorm: 198615 4 DROP (S) OTIC BID 09/13/2017 10/18/2017 Inactive cefdinir 250 mg/5 mL oral suspension RxNorm: 978558 12 Milliliter(s) PO QD though PEG tube 08/06/2017 08/15/2017 Inactive sertraline 50 mg tablet RxNorm: 719293 1 Tablet(s) PO QHS 08/02/2017 11/04/2017 Inactive Ciprodex 0.3 %-0.1 % ear drops,suspension RxNorm: 386043 4 DROP (S) OTIC BID 07/22/2017 08/11/2017 Inactive Singulair 10 mg tablet RxNorm: 370105 1 Tablet(s) PO QD 06/30/2017 Inactive diazepam 10 mg tablet RxNorm: 012745 TAKE 1 TABLET BY M OUTH EVERY NIGHT AT BEDTIME NEEDED 06/04/2017 07/03/2017 Inactive oxcarbazepine 300 mg/5 mL (60 mg/mL) oral suspension RxNorm: 421589 15 MILLILITER(S) PO BID 05/03/2017 12/16/2017 Inactive sertraline 50 mg tablet RxNorm: 913830 1 Tablet(s) PO QHS 05/03/2017 08/02/2017 Inactive Protonix 40 mg tablet,delayed release RxNorm: 971162 1 Tablet(s) PO or per feeding tube BID 04/26/2017 12/16/2017 Inactive Ciprodex 0.3 %-0.1 % ear drops,suspension RxNorm: 786457 4 DROP (S) OTIC BID 04/26/2017 05/23/2017 Inactive Generlac 10 gram/15 mL oral solution RxNorm: 513623 Mil liliter(s) TAKE 15 ML BY MOUTH TWO-THREE TIMES DAILY 04/08/2017 03/03/2018 Inactive Singulair 10 mg tablet RxNorm: 558385 1 Tablet(s) PO QD 03/03/2017 Inactive diazepam 10 mg tablet RxNorm: 643302 1 Tablet(s) PO QHS as needed 0 02/15/2017 06/04/2017 Inactive Singulair 10 mg tablet RxNorm: 158013 1 Tablet(s) PO QD 12/01/2016 Inactive Diflucan 150 mg tablet RxNorm: 422553 Tablet(s) Give 1 tab PO now and then repeat dose in 5 days 11/10/2016 03/31/2017 Inactive Zithromax 200 mg/5 mL oral suspension RxNorm: 274329 12.5 Dilcia liter(s) PO QD 11/10/2016 11/14/2016 Inactive Singulair 10 mg tablet RxNorm: 679616 TAKE 1 TABLET BY MOUTH ON CE DAILY 11/02/2016 12/01/2016 Inactive diazepam 10 mg tablet RxNorm: 633196 TAKE 1 TABLET BY M OUTH EVERY NIGHT AT BEDTIME NEEDED 10/21/2016 11/19/2016 Inactive sertraline 50 mg tablet RxNorm: 150456 1 Tablet(s) PO QHS 10/12/2016 01/09/2017 Inactive fluconazole 100 mg tablet RxNorm: 739381 1 Tablet(s) PO QD 09/23/19 17 09/24/2016 Inactive fluconazole 100 mg tablet RxNorm: 897324 1 Tablet(s) PO QD 09/23/19 17 09/21/2016 Inactive Bactrim DS 800 mg-160 mg tablet RxNorm: 149057 1 Tablet(s) PO BID 0 09/10/2016 09/09/2016 Inactive Bactrim DS 800 mg-160 mg tablet RxNorm: 882611 1 Tablet(s) PO BID 0 09/10/2016 09/16/2016 Inactive oxcarbazepine 300 mg/5 mL (60 mg/mL) oral suspension RxNorm: 600975 15 Milliliter(s) PO BID 09/07/2016 03/05/2017 Inactive sertraline 50 mg tablet RxNorm: 206226 1 Tablet(s) PO QHS 07/06/2016 10/03/2016 Inactive Pepcid 20 mg tablet RxNorm: 789276 Tablet(s) 1 TABLET(S) PO QHS 08/201603/08/2017 Inactive sertraline 50 mg tablet RxNorm: 100065 1 Tablet(s) PO QHS 06/08/2016 05/03/2017 Inactive Generlac 10 gram/15 mL oral solution RxNorm: 827605 Mil liliter(s) TAKE 15 ML BY MOUTH TWO-THREE TIMES DAILY 06/08/2016 09/08/2016 Inactive Pepcid 20 mg tablet RxNorm: 651210 1 TABLET(S) PO QHS 06/04/201607/2016 Inactive fluconazole 100 mg tablet RxNorm: 072273 1 Tablet(s) QD through PEG tube 05/13/2016 12/01/2017 Inactive Diflucan 150 mg tablet RxNorm: 170879 Give 1 tab PO now and then repeat dose in 5 days 03/19/2016 11/09/2016 Inactive ceftriaxone 1 gram solution for injection RxNorm: 9904637 1 Gram(s) IM QD Wednesday and Wednesday03/19/2016 11/09/2016 Inactive lidocaine 10 mg/mL (1 %) injection solution RxNorm: 1833213 Use as directed to reconstitute Rocephin when needed 03/19/2016 12/13/2017 Inactive Generlac 10 gram/15 mL oral solution RxNorm: 962804 JOE E 15 ML BY MOUTH TWO- THREE TIMES DAILY 03/19/2016 06/07/2016 Inactive oxcarbazepine 300 mg/5 mL oral suspension RxNorm: 133097 15 Milliliter(s) PO BID 03/13/2016 09/07/2016 Inactive Ciprodex 0.3 %-0.1 % ear drops,suspension RxNorm: 700905 4 DROP (S) OTIC BID 03/09/2016 03/15/2016 Inactive cefdinir 250 mg/5 mL oral suspension RxNorm: 635827 11. 75 Milliliter(s) PO QD though PEG tube 03/02/2016 03/08/2016 Inactive cefdinir 250 mg/5 mL oral suspension RxNorm: 160414 11. 75 Milliliter(s) PO QD though PEG tube 02/24/2016 03/01/2016 Inactive cefdinir 250 mg/5 mL oral suspension RxNorm: 171841 11. 75 Milliliter(s) PO QD though PEG tube 02/24/2016 02/23/2016 Inactive Ciprodex 0.3 %-0.1 % ear drops,suspension RxNorm: 722987 4 Drop (s) OTIC BID 02/24/2016 03/01/2016 Inactive Generlac 10 gram/15 mL oral solution RxNorm: 966600 JOE E 15 ML BY MOUTH TWICE DAILY 02/17/2016 03/18/2016 Inactive Generlac 10 gram/15 mL oral solution RxNorm: 012793 15 Millilit er(s) PO BID 01/23/2016 02/16/2016 Inactive Pepcid 20 mg tablet RxNorm: 464432 1 TABLET(S) PO QHS 01/13/201605/07 Inactive Ciprodex 0.3 %-0.1 % ear drops,suspension RxNorm: 427563 4 Drop (s) OTIC BID 12/23/2015 12/29/2015 Inactive sertraline 50 mg tablet RxNorm: 732147 1 Tablet(s) PO QHS 12/16/2015 06/07/2016 Inactive Zithromax 500 mg tablet RxNorm: 649164 1 Tablet(s) PO QD 12/16/2015 0 12/22/2015 Inactive Pepcid 20 mg tablet RxNorm: 685949 1 Tablet(s) PO QHS 12/16/201501/02 Inactive Zithromax 500 mg tablet RxNorm: 930475 1 Tablet(s) PO QD 11/12/2015 0 11/18/2015 Inactive Singulair 10 mg tablet RxNorm: 037216 1 Tablet(s) PO BID 10/16/2015 0 11/11/2015 Inactive diazepam 10 mg tablet RxNorm: 316262 1 Tablet(s) PO QHS 10/07/2015 Inactive diazepam 10 mg tablet RxNorm: 478124 1 Tablet(s) PO QHS 10/07/2015 Inactive fexofenadine 30 mg/5 mL oral suspension RxNorm: 758098 10 Milliliter(s) PO one to two times daily PRN allergies 09/20/2015 12/15/2015 Inactive ceftriaxone 1 gram solution for injection RxNorm: 3552825 1 Gram (s) IM QD 09/20/2015 09/21/2015 Inactive Ciprodex 0.3 %-0.1 % ear drops,suspension RxNorm: 927012 4 Drop (s) OTIC BID 09/20/2015 10/03/2015 Inactive Protonix 40 mg tablet,delayed release RxNorm: 103142 1 Tablet(s) PO or per feeding tube BID 08/21/2015 12/18/2015 Inactive Carafate 100 mg/mL oral suspension RxNorm: 659968 10 Mi lliliter(s) Miscellaneous per feeding tube AC & HS 08/21/2015 09/19/2015 Inactive Zyrtec 10 mg tablet RxNorm: 4570780 1 Tablet(s) PO QD No Start Date Active diazepam 20 mg rectal kit RxNorm: 352033 RTL as needed No Start Date Active Lortab Elixir 10 mg-300 mg/15 mL oral solution RxNorm: 08718 45 8 PO Q6-8H as needed No Start Date Active ondansetron HCl 4 mg/5 mL oral solution RxNorm: 655718 10 Milliliter(s) PO as needed and through tube No Start Date Active sertraline 50 mg tablet RxNorm: 014134 1 Tablet(s) PO QD No Start D ate 12/15/2015 Inactive Brittany 180 mg tablet RxNorm: 880080 1 Tablet(s) PO QD No Start Date 06/12/2018 Inactive Generlac 10 gram/15 mL oral solution RxNorm: 082132 15 Millilit er(s) PO BID No Start Date 01/22/2016 Inactive oxcarbazepine 300 mg/5 mL oral suspension RxNorm: 755014 13.5 Milliliter(s) PO QAM and 15ml in the evening No Start Date 12/15/2015 Inactive Singulair 10 mg tablet RxNorm: 328933 1 Tablet(s) PO QD No Start Da te 11/30/2016 Inactive meclizine 12.5 mg tablet RxNorm: 947990 1 Tablet(s) PO TID as needed for dizziness No Start Date 09/13/2017 Inactive meclizine 12.5 mg tablet RxNorm: 537945 1 Tablet(s) PO BID No Start Date 12/12/2017 Inactive fluconazole 100 mg tablet RxNorm: 329008 1 Tablet(s) QD through PEG tube No Start Date 05/12/2016 Inactive Flomax 0.4 mg capsule RxNorm: 455989 1 Capsule(s) PO QD No Start Da te 06/12/2018 Inactive diazepam 10 mg tablet RxNorm: 686368 1 Tablet(s) PO QHS as needed N o Start Date 02/14/2017 Inactive Generlac 10 gram/15 mL oral solution RxNorm: 416891 15 Milliliter(s) PO two to three times daily No Start Date 03/02/2018 Inactive oxcarbazepine 300 mg/5 mL oral suspension RxNorm: 270227 15 Milliliter(s) PO BID No Start Date 12/15/2017 Inactive Medication Administered No Medication Administered data Immunizations Vaccine Codes Date Status Influenza CVX: 141 04/21/2019 Results No Results data Procedures Procedure Codes Date DEXAMETHASONE SODIUM PHOS CPT-4: J1100 05/03/2019 THER/PROPH/DIAG INJ SC/IM CPT-4: 92944 05/03/2019 CEFTRIAXONE SODIUM INJECTION CPT-4: J0696 03/19/2016 THER/PROPH/DIAG INJ SC/IM CPT-4: 15164 03/19/2016 DEXAMETHASONE SODIUM PHOS CPT-4: J1100 11/12/2015 THER/PROPH/DIAG INJ SC/IM CPT-4: 80530 11/12/2015 CEFTRIAXONE SODIUM INJECTION CPT-4: J0696 09/20/2015 THER/PROPH/DIAG INJ SC/IM CPT-4: 63745 09/20/2015 THER/PROPH/DIAG INJ SC/IM CPT-4: 84618 09/10/2015 METHYLPREDNISOLONE 40 MG INJ CPT-4: J1030 09/10/2015 TRIAMCINOLONE ACET INJ NOS CPT-4: J3301 09/10/2015 Vital Signs Date Vital 07/25/2019 Blood Pressure 1: 116/80 Code: 8480-6 BMI: 23.2 Code: 80623-3 Heart Rate 1: 81 bpm Height: 4'5" Respiratory Rate: 16 bpm SpO2: 100% Tempera ture: 36.8 (C) / 98.2 (F) Weight: 92 lbs 06/12/2019 Blood Pressure 1: 112/74 Code: 8480-6 BMI: 23.2 Code: 39748-8 Heart Rate 1: 102 bpm Height: 4'5" [...] 1: 114/70 Code: 8480-6 BMI: 23.1 Code: 82470-4 Heart Rate 1: 80 bpm Height: 4'6" [...] 09/20/2015 otalgia 09/10/2015 ~generic 08/21/2015 New Patient----[facility] visit Encounters Encounter Performer Location Codes Date () OFFICE/OUTPATIENT VISIT EST Diagnosis: Allergic rhinitis[ICD10: J30.9] Fatou Onofre [facility] CPT-4: 20286 10/05/2019 ([id number]) OFFICE/OUTPATIENT VISIT EST Diagnosis: Sinusitis[ICD10: J32.9] Fatou GILBERT [facility] CPT-4: 23234 07/25/2019 ([id number]) PREV VISIT EST AGE 18-39 Diagnosis: Encounter for general adult medical examination with abnormal findings[ICD10: Z00.01] Diagnosis: Chronic pancreatitis[ICD10: K86.1] Diagnosis: Cerebral palsy, unspecified[ICD10: G80.9] Keily ARANGO [facility] CPT-4: 16167 06/12/2019 ([id number]) OFFICE/OUTPATIENT VISIT EST Diagnosis: Pneumonia, organism unspecified[ICD10: J18.9] Diagnosis: Breast mass, right[ICD10: N63.10] Keily ARANGO [facility] CPT-4: 25343 05/08/2019 ([id number]) OFFICE/OUTPATIENT VISIT EST Diagnosis: Allergic rhinitis due to pollen[ICD10: J30.1] Diagnosis: Otitis media, unspecified, right ear[ICD10: H66.91] Fatou ARANGO [facility] CPT-4: 23110 05/03/2019 ([id number]) OFFICE/OUTPATIENT VISIT EST Diagnosis: Irritability and anger[ICD10: R45.4] [facility] 10504 11/25/2018 ([id number]) OFFICE/OUTPATIENT VISIT EST Diagnosis: Acute suppurative otitis media without spontaneous rupture of ear drum, bilateral[ICD10: H66.003] Fatou ARANGO [facility] CPT-4: 95489 06/13/2018 ([id number]) OFFICE/OUTPATIENT VISIT EST Diagnosis: Other fatigue[ICD10: R53.83] Diagnosis: Anuria and oliguria[ICD10: R34] Diagnosis: Acute gastritis without bleeding[ICD10: K29.00] Fatou ARANGO [facility] CPT-4: 85817 01/04/2018 ([id number]) OFFICE/OUTPATIENT VISIT EST Diagnosis: Acute bronchitis, unspecified[ICD10: J20.9] Fatou ARANGO [facility] CPT-4: 83028 12/31/2017 ([id number]) PREV VISIT EST AGE 18-39 Diagnosis: Encounter for general adult medical examination without abnormal findings[ICD10: Z00.00] Diagnosis: Severe intellectual disabilities[ICD10: F72] Diagnosis: Allergic rhinitis due to pollen[ICD10: J30.1] Diagnosis: Epilepsy, unspecified, intractable, without status epilepticus[ICD10: G40.919] Diagnosis: Gastro-esophageal reflux disease without esophagitis[ICD10: K21.9] Keily Pepenicole LÓPEZKEILY Diamante [employer] [facility] CPT-4: 78443 12/14/2017 ([id number]) OFFICE/OUTPATIENT VISIT EST Diagnosis: Allergic rhinitis due to pollen[ICD10: J30.1] Diagnosis: Epilepsy, unspecified, intractable, without status epilepticus[ICD10: G40.919] Keily Pepenicole LÓPEZKEILY Diamante [employer] [facility] CPT-4: 55675 12/02/2017 ([id number]) OFFICE/OUTPATIENT VISIT EST Diagnosis: Other allergic rhinitis[ICD10: J30.89] Fatou JUDD OSMANY [employer] [facility] CPT-4: 08842 10/12/2017 OFFICE/OUTPATIENT VISIT EST Diagnosis: Acute suppurative otitis media without spontaneous rupture of ear drum, recurrent, left ear[ICD10: H66.005] Diagnosis: Epilepsy, unspecified, intractable, without status epilepticus[ICD10: G40.919] Diagnosis: Hesitancy of micturition[ICD10: R39.11] Fatou ARANGO [employer] [facility] CPT-4: 09633 09/17/2017 OFFICE/OUTPATIENT VISIT EST Diagnosis: Otitis media, unspecified, left ear[ICD10: H66.92] Fatou Bobby [employer] [facility] CPT-4: 51651 08/06/2017 ([id number]) OFFICE/OUTPATIENT VISIT EST Diagnosis: Vertigo of central origin, 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.49] Diagnosis: Dizziness and giddiness[ICD10: R42] Keily NARANJO [employer] [facility] CPT-4: 71767 04/01/2017 OFFICE/OUTPATIENT VISIT EST Diagnosis: Vomiting, unspecified[ICD10: R11.10] Diagnosis: 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)[ICD10: K56.5] Diagnosis: Personal history of urinary calculi[ICD10: Z87.442] Emely HobbsSanchez [facility] CPT[facility]: 42622 03/01/2017 ([id number]) OFFICE/OUTPATIENT VISIT EST Diagnosis: Allergic rhinitis due to pollen[ICD10: J30.1] Diagnosis: Acute and subacute allergic otitis media (mucoid) (sanguinous) (serous), left ear[ICD10: H65.112] Keily RIOSLINE Diamante [facility] CPT-4: 94940 11/10/2016 ([id number]) OFFICE/OUTPATIENT VISIT EST Diagnosis: 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] Diagnosis: Unspecified ovarian cyst, right side[ICD10: N83.201] Diagnosis: Cyst of kidney, 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] Keily Arango BINTA CERON Diamante [facility] CPT-4: 43616 08/13/2016 ([id number]) OFFICE/OUTPATIENT VISIT EST Diagnosis: Rash and other nonspecific skin eruption[ICD10: R21] Aziza LINARES Diamante [facility] CPT-4: 16397 03/27/2016 ([id number]) OFFICE/OUTPATIENT VISIT EST Diagnosis: Urinary tract infection, site not specified[ICD10: N39.0] Keily Conchita KEILY [facility] CPT-4: 45314 03/23/2016 ([id number]) OFFICE/OUTPATIENT VISIT EST Diagnosis: Retention of urine, unspecified[ICD10: R33.9] Diagnosis: Dysuria[ICD10: R30.0] Diagnosis: Constipation, unspecified[ICD10: K59.00] Aziza LAWTON [facility]amante [facility] CPT-4: 00512 03/19/2016 ([id number]) OFFICE/OUTPATIENT VISIT EST Diagnosis: Acute sinusitis, unspecified[ICD10: J01.90] Keily Pepenicole LINARES [facility] CPT-4: 43946 03/02/2016 OFFICE/OUTPATIENT VISIT EST Diagnosis: Other fatigue[ICD10: R53.83] Diagnosis: Retention of urine, unspecified[ICD10: R33.9] Diagnosis: Dysuria[ICD10: R30.0] Diagnosis: Generalized abdominal pain[ICD10: R10.84] 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] Aziza ARANGO [facility] CPT-4: 47071 02/24/2016 ([id number]) OFFICE/OUTPATIENT VISIT EST Diagnosis: Chronic mucoid otitis media, right ear[ICD10: H65.31] Diagnosis: Allergic rhinitis, unspecified[ICD10: J30.9] Diagnosis: 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] Keily ARANGO [facility] CPT-4: 68144 12/16/2015 ([id number]) OFFICE/OUTPATIENT VISIT EST Diagnosis: Allergic rhinitis, unspecified[ICD10: J30.9] Diagnosis: Acute recurrent sinusitis, unspecified[ICD10: J01.91] Keily ARANGO [facility] CPT-4: 13763 11/12/2015 ([id number]) OFFICE/OUTPATIENT VISIT EST Diagnosis: Other seasonal allergic rhinitis[ICD10: J30.2] Diagnosis: Nausea with vomiting, unspecified[ICD10: R11.2] Diagnosis: Epigastric pain[ICD10: R10.13] Aziza RIOSLINE Thor ARANGO [facility] CPT-4: 36396 10/16/2015 OFFICE/OUTPATIENT VISIT EST Diagnosis: Encounter for follow-up examination after completed treatment for conditions other than malignant neoplasm[ICD10: Z09] Diagnosis: Generalized abdominal pain[ICD10: R10.84] Keily ARANGO [facility] CPT-4: 53575 09/23/2015 ([id number]) OFFICE/OUTPATIENT VISIT EST Diagnosis: Otitis media, unspecified, right ear[ICD10: H66.91] Diagnosis: Constipation, unspecified[ICD10: K59.00] Diagnosis: Allergic rhinitis, unspecified[ICD10: J30.9] Aziza RIOSLINE Diamante ARANGO [facility] CPT-4: 12610 09/20/2015 OFFICE/OUTPATIENT VISIT EST Diagnosis: Allergic rhinitis, unspecified[ICD10: J30.9] Diagnosis: Unspecified perforation of tympanic membrane, right ear[ICD10: H72.91] Bibiana ARANGO DO [facility] CPT-4: 88913 09/10/2015 OFFICE/OUTPATIENT VISIT NEW Diagnosis: Epilepsy, unspecified, intractable, without status epilepticus[ICD10: G40.919] Diagnosis: Gastric ulcer, unspecified as acute or chronic, without hemorrhage or perforation[ICD10: K25.9] Diagnosis: Severe intellectual disabilities[ICD10: F72] Keilykatie Arango KEILY ARANGO [facility] CPT-4: 89017 08/21/2015 Plan of Care Planned Activity Notes [...] ICD-9 : 477.9 ICD-10 : J30.9 10/05/2019 Visit Diagnosis Plan: Sinusitis Discussion: due to dean gth of illness and symptoms, cefdinir prescribed to take as directed. call office with any new or worsening symptoms. ICD-9 : 473.9 ICD-10 : J32.9 07/25/2019 Appointment: Fatou Onofre [address] [place], [place] [id number] ACUTE ILLNESS 07/25/2019 Patient Education: cefdinir- [employer] Coupon [id number] https://[email or web address].com/samplemd/resources/getResource/61/[email or web address]-[email or web address] Completed 07/25/2019 Visit Diagnosis Plan: Chronic pancreatitis Discussion: Continue zenpep and recheck CMP with amylase/lipase in 1 month ICD-9 : 577.1 ICD-10 : K86.1 06/12/2019 Appointment: Keily Arango WPtel: [phone] [facility] Annual Well Visit 06/12/2019 Visit Diagnosis Plan: [...] J18.9 05/08/2019 Appointment: Keily Arango WPtel: [phone] [facility] Hospital Follow Up 05/08/2019 Visit Diagnosis Plan: [...] ICD-10 : H66.91 05/03/2019 Appointment: Fatou Onofre [address] [place] [address] ACUTE ILLNESS 05/03/2019 Patient Education: amoxicillin- [employer] Coupon [id number] https://[email or web address].com/samplemd/resources/getResource/61/[email or web address] Completed 05/03/2019 Visit Diagnosis Plan: Irritability and [...] ICD-10 : R45.4 11/25/2018 Appointment: Nataliia Hsieh [address] ACUTE ILLNESS 11/25/2018 Visit Diagnosis Plan: Acute suppurative otitis media without spontaneous rupture of ear drum, bilateral Discussion: cefdinir for 10 days. if wor sening symptoms later this week, call clinic. push fluids and tylenol/ibuprofen prn pain or fever. ICD-9 : 382.00 ICD-10 : H66.003 06/13/2018 Appointment: Fatou Onofre [address] [place] [address] ACUTE ILLNESS 06/13/2018 Visit Diagnosis Plan: Anuria [...] ICD-10 : K29.00 01/04/2018 Appointment: Fatou Onofre [address] [place] [address] ACUTE ILLNESS 01/04/2018 Patient Education: Patient Medication Summary Completed 01/04/2018 Visit Diagnosis Plan: Acute bronchitis, unspecified Di scussion: zithromax prescribed to take as directed. continue with allergy meds including flonase to help dry congestion. call office next week if new or worsening symptoms. ICD-9 : 466.0 ICD-10 : J20.9 12/31/2017 Appointment: Fatou Onofre [address] [place] [address] ACUTE ILLNESS 12/31/2017 Patient Education: Patient Medication [...] G40.919 12/14/2017 Visit Diagnosis Plan: Encounter for [facility] adult medical examination without abnormal findings Discussion: Had recent lab done Follow Up: 3 months ICD-9 : V70.9 ICD-10 : Z00.00 12/14/2017 Appointment: Keily Arango WPtel: [address] [place] [address] CHECK UP 12/14/2017 Patient Education: Patient Medication [...] : J30.1 12/02/2017 Appointment: Keily Arango WPtel: [address] [place] [address] ACUTE ILLNESS 12/02/2017 Patient Education: Patient Medication Summary Completed 12/02/2017 Visit Diagnosis Plan: Other allergic rhinitis Discussi on: symptoms most likely caused from allergies. patient sent to hospital for decadron injection. instructed to restart patient's flonase at home. if new or worsening symptoms, call or rtc. ICD-9 : 477.8 ICD-10 : J30.89 10/12/2017 Appointment: Fatou Onofre [address] [place] [address] ACUTE ILLNESS 10/12/2017 Patient Education: Patient Medication [...] ICD-10 : G40.919 09/17/2017 Appointment: Fatou Onofre [address] [place] [address] ACUTE ILLNESS 09/17/2017 Patient Education: Patient Medication Summary Completed 09/17/2017 Visit Diagnosis Plan: Otitis media, unspecified, left ear Discussion: cefdinir prescribed daily for 10 days. instructed to administer tylenol/ibuprofen for pain or fever. if no improvement, or worsening symptoms, call or rtc. ICD-9 : 380.14 ICD-10 : H66.92 08/06/2017 Appointment: Fatou Onofre [address] [place] [address] ACUTE ILLNESS 08/06/2017 Patient Education: Patient Medication Summary Completed 08/06/2017 Patient Education: Patient Medication Summary Completed 08/02/2017 Patient Education: Patient Medication Summary Completed 04/21/2017 Care Plan: MRI BRAIN STEM W/O DYE LOINC : 62126-6 Pending 04/21/2017 Patient Education: Patient Medication Summary Completed 04/20/2017 Care Plan: MRI BRAIN STEM W/O DYE LOINC : 99254-9 Pending 04/20/2017 Visit Diagnosis Plan: Vertigo of central origin, unspe cified ear Discussion: Continue meclizine at 12.5mg po BID for 2 more weeks then go to 12.5mg daily for 2 weeks then 6.25mg daily for 2 weeks then stop Notify if any symptoms return with weaning process ICD-9 : 386.2 ICD-10 : H81.49 04/01/2017 Appointment: Keily Arango WPtel: [phone] [facility] FOLLOW UP 04/01/2017 Patient Education: Patient Medication Summary Completed 04/01/2017 Patient Education: Patient Medication Summary Completed 03/09/2017 Care Plan: CT HEAD/BRAIN W/O DYE LOINC : 93345-9 Pending 03/09/2017 Visit Plan: It's difficult to [...] medications indicated. 03/01/2017 Appointment: Emely Hdz WPtel: [address] [place] [address] ACUTE ILLNESS 03/01/2017 Patient Education: Patient Medication Summary Completed 03/01/2017 Patient Education: Patient Medication Summary Completed 12/17/2016 Visit Diagnosis Plan: Acute and subacute allergic otitis media (mucoid) (sanguinous) (serous), left ear Discussion: Zithromax ICD-9 : 381.05 ICD-10 : H65.112 11/10/2016 Visit Diagnosis Plan: Allergic rhinitis due to pollen Discussion: Continue zyrtec/singulair ICD-9 : 477.9 ICD-10 : J30.1 11/10/2016 Appointment: Keily Arango WPtel: [address] [place], [place] [phone] ACUTE ILLNESS 11/10/2016 Patient Education: Patient Medication Summary Completed 11/10/2016 Patient Education: Patient Medication Summary Completed 09/07/2016 Care Plan: URINALYSIS [place] : 76418-9 Pending 09/07/2016 Visit Diagnosis Plan: Cyst of [...] : N83.201 08/13/2016 Appointment: Keily Arango [facility]el[facility] [phone] [facility] 08/12 confirmed-sp FOLLOW UP 08/13/2016 Patient Education: Patient Medication Summary Completed 08/13/2016 Patient Education: Patient Medication Summary Completed 05/19/2016 Care Plan: X-RAY EXAM OF FOOT left foot LOINC : 26 095-0 Pending 05/19/2016 Visit Plan: Discussed with Dr Conchita MAGANA C to be drawn Order sent to Will call with results 03/27/2016 Appointment: Aziza Magallanes [address] [place], [place] [id number] ACUTE ILLNESS 03/27/2016 Patient Education: Patient Medication Summary Completed 03/27/2016 Visit Plan: Go for dose of rocephin 1gm IM today and tomorrow then done Diflucan 150mg x1 today Discussed with mom via phone about urology fwup--she will talk with her and let us know 03/23/2016 Appointment: Keily Arango WPtel: [phone] [facility] 03/23 confirmed ~sl FOLLOW UP 03/23/2016 Patient Education: Patient Medication Summary Completed 03/23/2016 Visit Plan: Per Dr Arango, mauro cat h for UA and culture today Ok to have a standing order for further UA needs at for straight cath Rocephin IM today and daily through Wednesday Mom has arranged a family friend that is an DIGITAL [employer]INTER to give Wednesday and Sundays injections - rxs for rocephin and lido sent to [facility] cannot order the lido in the qty patient needs) Dr Arango wants patient to be re-evaluated on Wednesday in clinic Referral to Urology for recurrent UTIs and urinary retention - mom wants to research who she wants her sent to and let us know 03/19/2016 Appointment: Aziza Magallanes [address] [place], [place] [address] ACUTE ILLNESS 03/19/2016 Patient Education: Patient Medication Summary Completed 03/19/2016 Visit Plan: 1 more week of cefdinir 03/02/2016 Appointment: Keily Arango WPtel: [facility] [facility] 03/02 confirmed~sl WORK IN 03/02/2016 Patient Education: [...] seen if worsening 02/24/2016 Appointment: Aziza Magallanes [address] [place] [address] ACUTE ILLNESS 02/24/2016 Patient Education: Patient Medication Summary Completed 02/24/2016 Care Plan: CHEST X-RAY 2VW FRONTAL&LATL LOINC : 65648-6 Pending 02/24/2016 Care Plan: X-RAY EXAM OF ABDOMEN LOINC : 85424-8 Pending 02/24/2016 Visit Plan: Repeat zithromax x1 week Cip rodex to right ear x1 week Add Pepcid q HS x2-4 weeks for total histamine blockade and for extra stomach protection while on zithromax 12/16/2015 Appointment: Keily Arango WPtel: [phone] [facility] US 6/9 lm~sl /10 lm ~sl FOLLOW UP 12/16/2015 Patient Education: Patient Medication Summary Completed 12/16/2015 Patient Education: [facility] Saving Auto[employer] - Sertraline HCL - 18-64 - Dynamic Portal ID Completed 12/16/2015 Visit Plan: Saline nasal flushes prn. Ty lenol/Motrin prn headache. Notify if persists/symptoms worsens Dexamethasone given 11/12/2015 Appointment: Keily Arango WPtel: [phone] [facility] US 5 lm~sl 11/11 lm~sl 10 confirm-sp FOLLOW UP 11/12/2015 Patient Education: Patient [...] visits for Belkys 10/16/2015 Appointment: Aziza Magallanes [address] [place], [place] [phone] ACUTE ILLNESS 10/16/2015 Patient Education: Patient Medication Summary Completed 10/16/2015 Appointment: Aziza Magallanes [address] [place] [address] [place] canceled, feeling better CANCELED 016 Visit Plan: No further abx needed [facility] restart carafate Notify if abdominal pain worsens 09/23/2015 Appointment: Keily Arango WPtel: [phone] [facility] 09/19 confirmed-sp FOLLOW UP 09/23/2015 Patient Education: [...] done in the past. Order sent to [facility] since [facility] does not have in stock. Recheck in [...] past to try for now. 09/20/2015 Appointment: Elpidio Aziza [address] [phone] ACUTE ILLNESS 09/20/2015 Patient Education: Patient Medication Summary Completed 09/20/2015 Visit Plan: Depo Medrol 40mg/ Kenalog 40 mg IM today Resume Ciprodex otic gtts. bid to Rt. ear 09/10/2015 Appointment: Bibiana Garg WPtel: [phone] [phone] 09/08 confirmed-sp ACUTE ILLNESS 09/10/2015 Patient Education: Patient Medication Summary Completed 09/10/2015 Visit Plan: Increase Protonix to 40mg po BID for 1month Continue carafate at q AC dosing for full month then wean off Jevity for 2 more days then advance diet if able Continue current meds 08/21/2015 Appointment: Keily Arango WPtel: [phone] [phone] NEW PATIENT 08/21/2015 Patient Education: Patient Medication [...] arranged a family friend that is an DIGITAL PRINTER to give Wednesday and Sundays injections - rxs for rocephin and lido [facility] cannot order the lido in [...] No further abx needed Go back to [facility] for next 3 days and restart [...] done in the past. Order sent to [facility] since [facility] does not have in [...]
--- OUTSIDE RECORDS SUMMARY | 2019-11-10 19:34 | XMS REPORT | CCD ---
Author Author Belkys Arango D.O. Organization [facility] Address [address] [place] [address] Phone Care Team Providers Care Crm Dynamics Developer Name Role Phone Keily Arango D.O., PP Unavailable CCM Unavailable Summary Purpose Interface Exchange Insurance Providers Payer name Policy type / Coverage type Covered alliance party ID Effective Begin Date Effective End Date [employer] [facility] Medicaid [id number] U nknown Family History Family History data not found Social History Social History Element Codes Description Effective Dates Marital status Unknown Single 08/21/2015 Employment Unknown Currently unemployed Physically handicapped 08/21/[address]: 138397912 Has never smoked or chewed tobacco 08/21/[address]: 717689551 Never drinks alcohol 2015 Allergies, Adverse Reactions, [...] Ciprodex 0.3 %-0.1 % ear drops,suspension RxNorm: 272552 SHAKE LIQUID AND INSTILL 4 DROPS IN AFFECTED EAR(S) TWICE DAILY 09/22/2019 10/15/2019 A ctive diazepam 10 mg tablet RxNorm: 461343 TAKE 1 TABLET BY M OUTH EVERY NIGHT AT BEDTIME NEEDED 09/11/2019 10/10/2019 Active meclizine 12.5 mg tablet RxNorm: 126016 TAKE 1 TABLET B Y MOUTH THREE TIMES DAILY NEEDED 08/31/2019 10/29/2019 Active Ciprodex 0.3 %-0.1 % ear drops,suspension RxNorm: 448861 SHAKE LIQUID AND INSTILL 4 DROPS IN AFFECTED EAR(S) TWICE DAILY 08/31/2019 09/07/2019 I nactive Ciprodex 0.3 %-0.1 % ear drops,suspension RxNorm: 491056 SHAKE LIQUID AND INSTILL 4 DROPS IN AFFECTED EAR(S) TWICE DAILY 08/11/2019 08/18/2019 I nactive meclizine 12.5 mg tablet RxNorm: 155576 TAKE 1 TABLET B Y MOUTH THREE TIMES DAILY NEEDED 08/04/2019 08/30/2019 Inactive cefdinir 250 mg/5 mL oral suspension RxNorm: 093777 12 Milliliter(s) Oral QD though PEG tube 07/25/2019 08/03/2019 Inactive Zenpep 40,000 unit-126,000 unit-168,000 unit capsule,d elayed release RxNorm: 2420644 1 Capsule(s) Oral AC 07/10/2019 11/06/2019 Active famotidine 20 mg tablet RxNorm: 150592 TAKE 1 TABLET BY MOUTH EVERY NIGHT AT BEDTIME 07/09/2019 01/04/2020 Active sertraline 50 mg tablet RxNorm: 485935 TAKE 1 TABLET BY MOUTH EVERY NIGHT AT BEDTIME 07/09/2019 09/06/2019 Inactive Zenpep 40,000 unit-126,000 unit-168,000 unit capsule,d elayed release RxNorm: 7646012 1 Capsule(s) Oral AC 06/12/2019 07/09/2019 Inactive Zenpep 40,000 unit-126,000 unit-168,000 unit capsule,d elayed release RxNorm: 2015614 1 Capsule(s) Oral AC 05/24/2019 05/23/2019 Inactive Zenpep 40,000 unit-126,000 unit-168,000 unit capsule,d elayed release RxNorm: 6721285 1 Capsule(s) Oral AC 05/24/2019 06/11/2019 Inactive Ciprodex 0.3 %-0.1 % ear drops,suspension RxNorm: 697596 DROP(S) 4 DROP(S) OTIC BID 05/22/2019 06/18/2019 Inactive oxcarbazepine 300 mg/5 mL (60 mg/mL) oral suspension RxNorm: 593922 15 Milliliter(s) Oral two times a day 05/08/2019 11/03/2019 Active meclizine 12.5 mg tablet RxNorm: 922482 1 TABLET(S) PO TID NEEDE D 05/05/2019 08/02/2019 Inactive change in quantity Zithromax 200 mg/5 mL oral suspension RxNorm: 808761 12.5 Dilcia liter(s) Oral QD 05/04/2019 05/09/2019 Inactive amoxicillin 400 mg/5 mL oral suspension RxNorm: 121756 10 Milliliter(s) Oral two times a day 05/03/2019 05/13/2019 Inactive Singulair 10 mg tablet RxNorm: 794264 1 TABLET(S) PO QD 03/28/2019 Inactive Macrobid 100 mg capsule RxNorm: 326130 1 Capsule(s) PO BID 03/16/2003/22/2019 Inactive meclizine 12.5 mg tablet RxNorm: 985493 1 Tablet(s) PO TID as neede d 03/10/2019 05/04/2019 Inactive change in quantity Ciprodex 0.3 %-0.1 % ear drops,suspension RxNorm: 188292 DROP(S) 4 DROP(S) OTIC BID 03/08/2019 04/04/2019 Inactive oxcarbazepine 300 mg/5 mL (60 mg/mL) oral suspension RxNorm: 190570 15 Milliliter(s) PO BID 03/07/2019 05/07/2019 Inactive Macrobid 100 mg capsule RxNorm: 016086 1 Capsule(s) PO BID 02/21/2003/01/2019 Inactive Macrobid 100 mg capsule RxNorm: 204796 1 Capsule(s) PO BID 02/21/2002/19/2019 Inactive meclizine 12.5 mg tablet RxNorm: 018159 1 Tablet(s) PO TID as neede d 02/06/2019 03/07/2019 Inactive change in quantity Ciprodex 0.3 %-0.1 % ear drops,suspension RxNorm: 905107 DROP(S) 4 DROP(S) OTIC BID 01/30/2019 02/12/2019 Inactive diazepam 10 mg tablet RxNorm: 069745 1 Tablet(s) PO QHS as needed 0 01/27/2019 09/10/2019 Inactive sertraline 50 mg tablet RxNorm: 205934 1 Tablet(s) PO QHS 12/29/2018 06/26/2019 Inactive famotidine 20 mg tablet RxNorm: 284895 1 Tablet(s) PO QHS 12/29/2018 06/26/2019 Inactive Ciprodex 0.3 %-0.1 % ear drops,suspension RxNorm: 843386 DROP(S) 4 DROP(S) OTIC BID 12/14/2018 12/27/2018 Inactive Generlac 10 gram/15 mL oral solution RxNorm: 665432 15 Milliliter(s) PO TWO TO THREE TIMES DAILY 12/06/2018 06/03/2019 Inactive Protonix 40 mg tablet,delayed release RxNorm: 260080 1 Tablet(s) PO or per feeding tube BID 11/24/2018 05/22/2019 Inactive meclizine 12.5 mg tablet RxNorm: 341399 1 Tablet(s) PO TID as neede d 11/11/2018 02/06/2019 Inactive change in quantity Ciprodex 0.3 %-0.1 % ear drops,suspension RxNorm: 129935 DROP(S) 4 DROP(S) OTIC BID 11/08/2018 11/21/2018 Inactive diazepam 10 mg tablet RxNorm: 035840 1 Tablet(s) PO QHS as needed 0 10/21/2018 11/19/2018 Inactive Generlac 10 gram/15 mL oral solution RxNorm: 011919 Mil liliter(s) 15 MILLILITER(S) PO TWO TO THREE TIMES DAILY 10/07/2018 11/05/2018 Inacti ve Ciprodex 0.3 %-0.1 % ear drops,suspension RxNorm: 194463 DROP(S) DROP(S) 4 DROP(S) OTIC BID 08/26/2018 03/15/2019 Inactive meclizine 12.5 mg tablet RxNorm: 348210 1 TABLET(S) PO TID NEEDE D 07/25/2018 10/22/2018 Inactive change in quantity oxcarbazepine 300 mg/5 mL (60 mg/mL) oral suspension RxNorm: 798304 15 Milliliter(s) PO BID 07/08/2018 07/07/2018 Inactive oxcarbazepine 300 mg/5 mL (60 mg/mL) oral suspension RxNorm: 605586 15 Milliliter(s) PO BID 07/08/2018 01/03/2019 Inactive sertraline 50 mg tablet RxNorm: 127505 1 TABLET(S) PO QHS 07/06/2018 12/28/2018 Inactive Singulair 10 mg tablet RxNorm: 503283 1 TABLET(S) PO QD 06/24/2018 Inactive Ciprodex 0.3 %-0.1 % ear drops,suspension RxNorm: 891341 DROP(S) 4 DROP(S) OTIC BID 06/20/2018 06/19/2018 Inactive Ciprodex 0.3 %-0.1 % ear drops,suspension RxNorm: 085502 Drop(s) DROP(S) 4 DROP(S) OTIC BID 06/20/2018 07/03/2018 Inactive cefdinir 250 mg/5 mL oral suspension RxNorm: 725191 12 Milliliter(s) PO QD though PEG tube 06/13/2018 06/22/2018 Inactive famotidine 20 mg tablet RxNorm: 800518 1 Tablet(s) PO QHS 05/31/2018 11/26/2018 Inactive famotidine 40 mg/5 mL (8 mg/mL) oral suspension RxNorm: 3102 74 2.5 Milliliter(s) PO QHS 04/29/2018 06/12/2018 Inactive meclizine 12.5 mg tablet RxNorm: 822391 1 TABLET(S) PO TID NEEDE D 04/25/2018 07/23/2018 Inactive change in quantity Generlac 10 gram/15 mL oral solution RxNorm: 118396 Mil liliter(s) 15 MILLILITER(S) PO TWO TO THREE TIMES DAILY 04/04/2018 05/03/2018 Inacti ve Ciprodex 0.3 %-0.1 % ear drops,suspension RxNorm: 122332 Drop(s) 4 DROP(S) OTIC BID 04/04/2018 04/17/2018 Inactive diazepam 10 mg tablet RxNorm: 491552 1 Tablet(s) PO QHS as needed 1 05/03/2018 Inactive famotidine 40 mg/5 mL (8 mg/mL) oral suspension RxNorm: 3102 74 2.5 Milliliter(s) PO QHS 04/04/2018 04/28/2018 Inactive Generlac 10 gram/15 mL oral solution RxNorm: 641533 15 MILLILITER(S) PO TWO TO THREE TIMES DAILY 03/24/2018 04/03/2018 Inactive Singulair 10 mg tablet RxNorm: 002998 1 TABLET(S) PO QD 03/18/2018 Inactive Ciprodex 0.3 %-0.1 % ear drops,suspension RxNorm: 668776 Drop(s) 4 DROP(S) OTIC BID 03/08/2018 03/21/2018 Inactive Generlac 10 gram/15 mL oral solution RxNorm: 187773 15 Milliliter(s) PO two to three times daily 03/03/2018 03/23/2018 Inactive meclizine 12.5 mg tablet RxNorm: 876844 1 Tablet(s) PO TID as neede d 02/10/2018 04/10/2018 Inactive change in quantity meclizine 12.5 mg tablet RxNorm: 946442 1 Tablet(s) PO BID as neede d 02/07/2018 02/09/2018 Inactive change in quantity Ciprodex 0.3 %-0.1 % ear drops,suspension RxNorm: 237132 Drop(s) 4 DROP(S) OTIC BID 02/02/2018 03/08/2018 Inactive sertraline 50 mg tablet RxNorm: 264457 1 TABLET(S) PO QHS 01/25/2018 07/05/2018 Inactive Zithromax 200 mg/5 mL oral suspension RxNorm: 541476 12.5 Dilcia liter(s) PO QD 12/31/2017 01/04/2018 Inactive Pepcid 20 mg tablet RxNorm: 816086 TABLET(S) 1 TABLET(S) PO QHS 04/29/2018 Inactive famotidine 40 mg/5 mL (8 mg/mL) oral suspension RxNorm: 3102 74 2.5 Milliliter(s) PO QHS 12/28/2017 12/27/2017 Inactive famotidine 40 mg/5 mL (8 mg/mL) oral suspension RxNorm: 3102 74 2.5 Milliliter(s) PO QHS 12/28/2017 04/03/2018 Inactive Ciprodex 0.3 %-0.1 % ear drops,suspension RxNorm: 913519 Drop(s) 4 DROP(S) OTIC BID 12/27/2017 02/02/2018 Inactive meclizine 12.5 mg tablet RxNorm: 795258 1 Tablet(s) PO BID as neede d 12/23/2017 02/06/2018 Inactive change in quantity Protonix 40 mg tablet,delayed release RxNorm: 001888 1 Tablet(s) PO or per feeding tube BID 12/16/2017 07/13/2018 Inactive oxcarbazepine 300 mg/5 mL (60 mg/mL) oral suspension RxNorm: 036067 15 Milliliter(s) PO BID 12/16/2017 07/08/2018 Inactive meclizine 12.5 mg tablet RxNorm: 909320 1 Tablet(s) PO BID as neede d 12/15/2017 02/07/2018 Inactive change in quantity Pepcid 40 mg/5 mL (8 mg/mL) oral suspension RxNorm: 845864 5 Milliliter(s) PO QHS to replace nighttime pantoprazole dose 12/14/2017 12/27/2017 Inact марина meclizine 12.5 mg tablet RxNorm: 144986 1 Tablet(s) PO BID as neede d 12/13/2017 12/23/2017 Inactive diazepam 10 mg tablet RxNorm: 828041 1 Tablet(s) PO QHS as needed 0 12/02/2017 03/01/2018 Inactive prednisolone 15 mg/5 mL oral solution RxNorm: 825128 5 Milliliter(s) PO BID for 3 days then 5ml daily for 3 days then 2.5ml daily for 3 days 12/02/2017 12/13/2017 Inactive sertraline 50 mg tablet RxNorm: 986836 1 Tablet(s) PO QHS 11/04/2017 01/24/2018 Inactive Ciprodex 0.3 %-0.1 % ear drops,suspension RxNorm: 318133 Drop(s) 4 DROP(S) OTIC BID 10/18/2017 10/31/2017 Inactive Ciprodex 0.3 %-0.1 % ear drops,suspension RxNorm: 305478 Drop(s) 4 DROP(S) OTIC BID 10/18/2017 12/27/2017 Inactive Singulair 10 mg tablet RxNorm: 009693 1 Tablet(s) PO QD 09/30/2017 Inactive diazepam 5 mg/5 mL (1 mg/mL) oral solution RxNorm: 261292 2.5 Milliliter(s) PO QD give additional 5 mg dose if seizure occurs 09/17/2017 No Stop Date A ctive Bactrim DS 800 mg-160 mg tablet RxNorm: 247699 1 Tablet(s) PO BID 0 09/17/2017 09/23/2017 Inactive Ciprodex 0.3 %-0.1 % ear drops,suspension RxNorm: 529434 4 DROP (S) OTIC BID 09/13/2017 10/18/2017 Inactive cefdinir 250 mg/5 mL oral suspension RxNorm: 103957 12 Milliliter(s) PO QD though PEG tube 08/06/2017 08/15/2017 Inactive sertraline 50 mg tablet RxNorm: 670780 1 Tablet(s) PO QHS 08/02/2017 11/04/2017 Inactive Ciprodex 0.3 %-0.1 % ear drops,suspension RxNorm: 349283 4 DROP (S) OTIC BID 07/22/2017 08/11/2017 Inactive Singulair 10 mg tablet RxNorm: 074241 1 Tablet(s) PO QD 06/30/2017 Inactive diazepam 10 mg tablet RxNorm: 202807 TAKE 1 TABLET BY M OUTH EVERY NIGHT AT BEDTIME NEEDED 06/04/2017 07/03/2017 Inactive oxcarbazepine 300 mg/5 mL (60 mg/mL) oral suspension RxNorm: 425784 15 MILLILITER(S) PO BID 05/03/2017 12/16/2017 Inactive sertraline 50 mg tablet RxNorm: 038980 1 Tablet(s) PO QHS 05/03/2017 08/02/2017 Inactive Protonix 40 mg tablet,delayed release RxNorm: 436293 1 Tablet(s) PO or per feeding tube BID 04/26/2017 12/16/2017 Inactive Ciprodex 0.3 %-0.1 % ear drops,suspension RxNorm: 729265 4 DROP (S) OTIC BID 04/26/2017 05/23/2017 Inactive Generlac 10 gram/15 mL oral solution RxNorm: 441213 Mil liliter(s) TAKE 15 ML BY MOUTH TWO-THREE TIMES DAILY 04/08/2017 03/03/2018 Inactive Singulair 10 mg tablet RxNorm: 153106 1 Tablet(s) PO QD 03/03/2017 Inactive diazepam 10 mg tablet RxNorm: 450552 1 Tablet(s) PO QHS as needed 0 02/15/2017 06/04/2017 Inactive Singulair 10 mg tablet RxNorm: 194696 1 Tablet(s) PO QD 12/01/2016 Inactive Diflucan 150 mg tablet RxNorm: 442595 Tablet(s) Give 1 tab PO now and then repeat dose in 5 days 11/10/2016 03/31/2017 Inactive Zithromax 200 mg/5 mL oral suspension RxNorm: 509860 12.5 Dilcia liter(s) PO QD 11/10/2016 11/14/2016 Inactive Singulair 10 mg tablet RxNorm: 351079 TAKE 1 TABLET BY MOUTH ON CE DAILY 11/02/2016 12/01/2016 Inactive diazepam 10 mg tablet RxNorm: 407460 TAKE 1 TABLET BY M OUTH EVERY NIGHT AT BEDTIME NEEDED 10/21/2016 11/19/2016 Inactive sertraline 50 mg tablet RxNorm: 684823 1 Tablet(s) PO QHS 10/12/2016 01/09/2017 Inactive fluconazole 100 mg tablet RxNorm: 240098 1 Tablet(s) PO QD 09/23/19 17 09/24/2016 Inactive fluconazole 100 mg tablet RxNorm: 551612 1 Tablet(s) PO QD 09/23/19 17 09/21/2016 Inactive Bactrim DS 800 mg-160 mg tablet RxNorm: 492816 1 Tablet(s) PO BID 0 09/10/2016 09/09/2016 Inactive Bactrim DS 800 mg-160 mg tablet RxNorm: 063815 1 Tablet(s) PO BID 0 09/10/2016 09/16/2016 Inactive oxcarbazepine 300 mg/5 mL (60 mg/mL) oral suspension RxNorm: 497023 15 Milliliter(s) PO BID 09/07/2016 03/05/2017 Inactive sertraline 50 mg tablet RxNorm: 466498 1 Tablet(s) PO QHS 07/06/2016 10/03/2016 Inactive Pepcid 20 mg tablet RxNorm: 568207 Tablet(s) 1 TABLET(S) PO QHS 08/201603/08/2017 Inactive sertraline 50 mg tablet RxNorm: 733066 1 Tablet(s) PO QHS 06/08/2016 05/03/2017 Inactive Generlac 10 gram/15 mL oral solution RxNorm: 232826 Mil liliter(s) TAKE 15 ML BY MOUTH TWO-THREE TIMES DAILY 06/08/2016 09/08/2016 Inactive Pepcid 20 mg tablet RxNorm: 046931 1 TABLET(S) PO QHS 06/04/201607/2016 Inactive fluconazole 100 mg tablet RxNorm: 513940 1 Tablet(s) QD through PEG tube 05/13/2016 12/01/2017 Inactive Diflucan 150 mg tablet RxNorm: 455537 Give 1 tab PO now and then repeat dose in 5 days 03/19/2016 11/09/2016 Inactive ceftriaxone 1 gram solution for injection RxNorm: 3670595 1 Gram(s) IM QD Wednesday and Wednesday03/19/2016 11/09/2016 Inactive lidocaine 10 mg/mL (1 %) injection solution RxNorm: 2131806 Use as directed to reconstitute Rocephin when needed 03/19/2016 12/13/2017 Inactive Generlac 10 gram/15 mL oral solution RxNorm: 756048 JOE E 15 ML BY MOUTH TWO- THREE TIMES DAILY 03/19/2016 06/07/2016 Inactive oxcarbazepine 300 mg/5 mL oral suspension RxNorm: 841929 15 Milliliter(s) PO BID 03/13/2016 09/07/2016 Inactive Ciprodex 0.3 %-0.1 % ear drops,suspension RxNorm: 128692 4 DROP (S) OTIC BID 03/09/2016 03/15/2016 Inactive cefdinir 250 mg/5 mL oral suspension RxNorm: 715728 11. 75 Milliliter(s) PO QD though PEG tube 03/02/2016 03/08/2016 Inactive cefdinir 250 mg/5 mL oral suspension RxNorm: 865977 11. 75 Milliliter(s) PO QD though PEG tube 02/24/2016 03/01/2016 Inactive cefdinir 250 mg/5 mL oral suspension RxNorm: 850682 11. 75 Milliliter(s) PO QD though PEG tube 02/24/2016 02/23/2016 Inactive Ciprodex 0.3 %-0.1 % ear drops,suspension RxNorm: 245108 4 Drop (s) OTIC BID 02/24/2016 03/01/2016 Inactive Generlac 10 gram/15 mL oral solution RxNorm: 458661 JOE E 15 ML BY MOUTH TWICE DAILY 02/17/2016 03/18/2016 Inactive Generlac 10 gram/15 mL oral solution RxNorm: 144689 15 Millilit er(s) PO BID 01/23/2016 02/16/2016 Inactive Pepcid 20 mg tablet RxNorm: 124877 1 TABLET(S) PO QHS 01/13/201605/07 Inactive Ciprodex 0.3 %-0.1 % ear drops,suspension RxNorm: 366677 4 Drop (s) OTIC BID 12/23/2015 12/29/2015 Inactive sertraline 50 mg tablet RxNorm: 465302 1 Tablet(s) PO QHS 12/16/2015 06/07/2016 Inactive Zithromax 500 mg tablet RxNorm: 530837 1 Tablet(s) PO QD 12/16/2015 0 12/22/2015 Inactive Pepcid 20 mg tablet RxNorm: 385063 1 Tablet(s) PO QHS 12/16/201501/02 Inactive Zithromax 500 mg tablet RxNorm: 253364 1 Tablet(s) PO QD 11/12/2015 0 11/18/2015 Inactive Singulair 10 mg tablet RxNorm: 120876 1 Tablet(s) PO BID 10/16/2015 0 11/11/2015 Inactive diazepam 10 mg tablet RxNorm: 469167 1 Tablet(s) PO QHS 10/07/2015 Inactive diazepam 10 mg tablet RxNorm: 744946 1 Tablet(s) PO QHS 10/07/2015 Inactive fexofenadine 30 mg/5 mL oral suspension RxNorm: 150781 10 Milliliter(s) PO one to two times daily PRN allergies 09/20/2015 12/15/2015 Inactive ceftriaxone 1 gram solution for injection RxNorm: 4665692 1 Gram (s) IM QD 09/20/2015 09/21/2015 Inactive Ciprodex 0.3 %-0.1 % ear drops,suspension RxNorm: 724807 4 Drop (s) OTIC BID 09/20/2015 10/03/2015 Inactive Protonix 40 mg tablet,delayed release RxNorm: 186394 1 Tablet(s) PO or per feeding tube BID 08/21/2015 12/18/2015 Inactive Carafate 100 mg/mL oral suspension RxNorm: 374384 10 Mi lliliter(s) Miscellaneous per feeding tube AC & HS 08/21/2015 09/19/2015 Inactive Zyrtec 10 mg tablet RxNorm: 5480435 1 Tablet(s) PO QD No Start Date Active diazepam 20 mg rectal kit RxNorm: 522738 RTL as needed No Start Date Active Lortab Elixir 10 mg-300 mg/15 mL oral solution RxNorm: 89863 45 8 PO Q6-8H as needed No Start Date Active ondansetron HCl 4 mg/5 mL oral solution RxNorm: 446849 10 Milliliter(s) PO as needed and through tube No Start Date Active sertraline 50 mg tablet RxNorm: 199082 1 Tablet(s) PO QD No Start D ate 12/15/2015 Inactive Brittany 180 mg tablet RxNorm: 832665 1 Tablet(s) PO QD No Start Date 06/12/2018 Inactive Generlac 10 gram/15 mL oral solution RxNorm: 987198 15 Millilit er(s) PO BID No Start Date 01/22/2016 Inactive oxcarbazepine 300 mg/5 mL oral suspension RxNorm: 046660 13.5 Milliliter(s) PO QAM and 15ml in the evening No Start Date 12/15/2015 Inactive Singulair 10 mg tablet RxNorm: 992826 1 Tablet(s) PO QD No Start Da te 11/30/2016 Inactive meclizine 12.5 mg tablet RxNorm: 366344 1 Tablet(s) PO TID as needed for dizziness No Start Date 09/13/2017 Inactive meclizine 12.5 mg tablet RxNorm: 073595 1 Tablet(s) PO BID No Start Date 12/12/2017 Inactive fluconazole 100 mg tablet RxNorm: 738794 1 Tablet(s) QD through PEG tube No Start Date 05/12/2016 Inactive Flomax 0.4 mg capsule RxNorm: 154002 1 Capsule(s) PO QD No Start Da te 06/12/2018 Inactive diazepam 10 mg tablet RxNorm: 584982 1 Tablet(s) PO QHS as needed N o Start Date 02/14/2017 Inactive Generlac 10 gram/15 mL oral solution RxNorm: 022953 15 Milliliter(s) PO two to three times daily No Start Date 03/02/2018 Inactive oxcarbazepine 300 mg/5 mL oral suspension RxNorm: 245088 15 Milliliter(s) PO BID No Start Date 12/15/2017 Inactive Medication Administered No Medication Administered data Immunizations Vaccine Codes Date Status Influenza CVX: 141 04/21/2019 Results No Results data Procedures Procedure Codes Date DEXAMETHASONE SODIUM PHOS CPT-4: J1100 05/03/2019 THER/PROPH/DIAG INJ SC/IM CPT-4: 49801 05/03/2019 CEFTRIAXONE SODIUM INJECTION CPT-4: J0696 03/19/2016 THER/PROPH/DIAG INJ SC/IM CPT-4: 22841 03/19/2016 DEXAMETHASONE SODIUM PHOS CPT-4: J1100 11/12/2015 THER/PROPH/DIAG INJ SC/IM CPT-4: 44166 11/12/2015 CEFTRIAXONE SODIUM INJECTION CPT-4: J0696 09/20/2015 THER/PROPH/DIAG INJ SC/IM CPT-4: 93150 09/20/2015 THER/PROPH/DIAG INJ SC/IM CPT-4: 16010 09/10/2015 METHYLPREDNISOLONE 40 MG INJ CPT-4: J1030 09/10/2015 TRIAMCINOLONE ACET INJ NOS CPT-4: J3301 09/10/2015 Vital Signs Date Vital 07/25/2019 Blood Pressure 1: 116/80 Code: 8480-6 BMI: 23.2 Code: 67309-4 Heart Rate 1: 81 bpm Height: 4'5" Respiratory Rate: 16 bpm SpO2: 100% Tempera ture: 36.8 (C) / 98.2 (F) Weight: 92 lbs 06/12/2019 Blood Pressure 1: 112/74 Code: 8480-6 BMI: 23.2 Code: 67983-1 Heart Rate 1: 102 bpm Height: 4'5" [...] 1: 114/70 Code: 8480-6 BMI: 23.1 Code: 41589-1 Heart Rate 1: 80 bpm Height: 4'6" [...] 09/20/2015 otalgia 09/10/2015 ~generic 08/21/2015 New Patient----[facility] visit Encounters Encounter Performer Location Codes Date () OFFICE/OUTPATIENT VISIT EST Diagnosis: Allergic rhinitis[ICD10: J30.9] Fatou Onofre [facility] CPT-4: 65278 10/05/2019 ([id number]) OFFICE/OUTPATIENT VISIT EST Diagnosis: Sinusitis[ICD10: J32.9] Fatou [facility] CPT-4: 47220 07/25/2019 ([id number]) PREV VISIT EST AGE 18-39 Diagnosis: Encounter for general adult medical examination with abnormal findings[ICD10: Z00.01] Diagnosis: Chronic pancreatitis[ICD10: K86.1] Diagnosis: Cerebral palsy, unspecified[ICD10: G80.9] Keily [facility]ANGO [facility] CPT-4: 65872 06/12/2019 ([id number]) OFFICE/OUTPATIENT VISIT EST Diagnosis: Pneumonia, organism unspecified[ICD10: J18.9] Diagnosis: Breast mass, right[ICD10: N63.10] Keliy [facility]ANGO [facility] CPT-4: 02496 05/08/2019 ([id number]) OFFICE/OUTPATIENT VISIT EST Diagnosis: Allergic rhinitis due to pollen[ICD10: J30.1] Diagnosis: Otitis media, unspecified, right ear[ICD10: H66.91] Fatou [facility] CPT-4: 59219 05/03/2019 ([id number]) OFFICE/OUTPATIENT VISIT EST Diagnosis: Irritability and anger[ICD10: R45.4] [facility] 89335 11/25/2018 ([id number]) OFFICE/OUTPATIENT VISIT EST Diagnosis: Acute suppurative otitis media without spontaneous rupture of ear drum, bilateral[ICD10: H66.003] Fatou [facility] CPT-4: 85033 06/13/2018 ([id number]) OFFICE/OUTPATIENT VISIT EST Diagnosis: Other fatigue[ICD10: R53.83] Diagnosis: Anuria and oliguria[ICD10: R34] Diagnosis: Acute gastritis without bleeding[ICD10: K29.00] Fatou [facility] CPT-4: 13474 01/04/2018 ([id number]) OFFICE/OUTPATIENT VISIT EST Diagnosis: Acute bronchitis, unspecified[ICD10: J20.9] Fatou [facility] CPT-4: 73556 12/31/2017 ([id number]) PREV VISIT EST AGE 18-39 Diagnosis: Encounter for general adult medical examination without abnormal findings[ICD10: Z00.00] Diagnosis: Severe intellectual disabilities[ICD10: F72] Diagnosis: Allergic rhinitis due to pollen[ICD10: J30.1] Diagnosis: Epilepsy, unspecified, intractable, without status epilepticus[ICD10: G40.919] Diagnosis: Gastro-esophageal reflux disease without esophagitis[ICD10: K21.9] Keily Pepenicole LÓPEZKEILY Diamante [employer] [facility] CPT-4: 17873 12/14/2017 ([id number]) OFFICE/OUTPATIENT VISIT EST Diagnosis: Allergic rhinitis due to pollen[ICD10: J30.1] Diagnosis: Epilepsy, unspecified, intractable, without status epilepticus[ICD10: G40.919] Keily Pepenicole LÓPEZKEILY Diamante [employer] [facility] CPT-4: 23929 12/02/2017 ([id number]) OFFICE/OUTPATIENT VISIT EST Diagnosis: Other allergic rhinitis[ICD10: J30.89] Fatou JUDD [employer] [facility] CPT-4: 64020 10/12/2017 OFFICE/OUTPATIENT VISIT EST Diagnosis: Acute suppurative otitis media without spontaneous rupture of ear drum, recurrent, left ear[ICD10: H66.005] Diagnosis: Epilepsy, unspecified, intractable, without status epilepticus[ICD10: G40.919] Diagnosis: Hesitancy of micturition[ICD10: R39.11] Fatou ARANGO [employer] [facility] CPT-4: 23530 09/17/2017 OFFICE/OUTPATIENT VISIT EST Diagnosis: Otitis media, unspecified, left ear[ICD10: H66.92] Fatou Bobby [employer] [facility] CPT-4: 01817 08/06/2017 ([id number]) OFFICE/OUTPATIENT VISIT EST Diagnosis: Vertigo of central origin, 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.49] Diagnosis: Dizziness and giddiness[ICD10: R42] Keily NARANJO [employer] [facility] CPT-4: 13313 04/01/2017 OFFICE/OUTPATIENT VISIT EST Diagnosis: Vomiting, unspecified[ICD10: R11.10] Diagnosis: 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)[ICD10: K56.5] Diagnosis: Personal history of urinary calculi[ICD10: Z87.442] [facility] HobbsSanchez [facility] 76570 03/01/2017 ([id number]) OFFICE/OUTPATIENT VISIT EST Diagnosis: Allergic rhinitis due to pollen[ICD10: J30.1] Diagnosis: Acute and subacute allergic otitis media (mucoid) (sanguinous) (serous), left ear[ICD10: H65.112] Keily RIOSLINE Diamante [facility] CPT-4: 78702 11/10/2016 ([id number]) OFFICE/OUTPATIENT VISIT EST Diagnosis: 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] Diagnosis: Unspecified ovarian cyst, right side[ICD10: N83.201] Diagnosis: Cyst of kidney, 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] Keily Arango BINTA CERON [facility] CPT-[facility]: 71451 08/13/2016 ([id number]) OFFICE/OUTPATIENT VISIT EST Diagnosis: Rash and other nonspecific skin eruption[ICD10: R21] Aziza LINARES [facility] CPT-4: 99199 03/27/2016 ([id number]) OFFICE/OUTPATIENT VISIT EST Diagnosis: Urinary tract infection, site not specified[ICD10: N39.0] Keily Conchita EKILY [facility]am[facility] CPT[facility]: 74209 03/23/2016 ([id number]) OFFICE/OUTPATIENT VISIT EST Diagnosis: Retention of urine, unspecified[ICD10: R33.9] Diagnosis: Dysuria[ICD10: R30.0] Diagnosis: Constipation, unspecified[ICD10: K59.00] Aziza ALWTON [facility] CPT-4: 43452 03/19/2016 ([id number]) OFFICE/OUTPATIENT VISIT EST Diagnosis: Acute sinusitis, unspecified[ICD10: J01.90] Keily Pepenicole [facility] CPT-4: 31061 03/02/2016 OFFICE/OUTPATIENT VISIT EST Diagnosis: Other fatigue[ICD10: R53.83] Diagnosis: Retention of urine, unspecified[ICD10: R33.9] Diagnosis: Dysuria[ICD10: R30.0] Diagnosis: Generalized abdominal pain[ICD10: R10.84] 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] Aziza ARANGO [facility] CPT-4: 22874 02/24/2016 ([id number]) OFFICE/OUTPATIENT VISIT EST Diagnosis: Chronic mucoid otitis media, right ear[ICD10: H65.31] Diagnosis: Allergic rhinitis, unspecified[ICD10: J30.9] Diagnosis: 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] Keily ARANGO [facility] CPT-4: 19191 12/16/2015 ([id number]) OFFICE/OUTPATIENT VISIT EST Diagnosis: Allergic rhinitis, unspecified[ICD10: J30.9] Diagnosis: Acute recurrent sinusitis, unspecified[ICD10: J01.91] Keily ARANGO [facility] CPT-4: 83228 11/12/2015 ([id number]) OFFICE/OUTPATIENT VISIT EST Diagnosis: Other seasonal allergic rhinitis[ICD10: J30.2] Diagnosis: Nausea with vomiting, unspecified[ICD10: R11.2] Diagnosis: Epigastric pain[ICD10: R10.13] Aziza RIOSLINE Thor ARANGO [facility] CPT-4: 25334 10/16/2015 OFFICE/OUTPATIENT VISIT EST Diagnosis: Encounter for follow-up examination after completed treatment for conditions other than malignant neoplasm[ICD10: Z09] Diagnosis: Generalized abdominal pain[ICD10: R10.84] Keily ARANGO [facility] CPT-4: 63435 09/23/2015 ([id number]) OFFICE/OUTPATIENT VISIT EST Diagnosis: Otitis media, unspecified, right ear[ICD10: H66.91] Diagnosis: Constipation, unspecified[ICD10: K59.00] Diagnosis: Allergic rhinitis, unspecified[ICD10: J30.9] Aziza RIOSLINE Diamante ARANGO [facility] CPT-4: 01908 09/20/2015 OFFICE/OUTPATIENT VISIT EST Diagnosis: Allergic rhinitis, unspecified[ICD10: J30.9] Diagnosis: Unspecified perforation of tympanic membrane, right ear[ICD10: H72.91] Bibiana ARANGO DO [employer] CPT-4: 99926 09/10/2015 OFFICE/OUTPATIENT VISIT NEW Diagnosis: Epilepsy, unspecified, intractable, without status epilepticus[ICD10: G40.919] Diagnosis: Gastric ulcer, unspecified as acute or chronic, without hemorrhage or perforation[ICD10: K25.9] Diagnosis: Severe intellectual disabilities[ICD10: F72] Keilykatie Arango KEILY ARANGO Scan CPT-4: 24399 08/21/2015 Plan of Care Planned Activity Notes [...] ICD-10 : J32.9 07/25/2019 Appointment: Fatou Onofre [address] [place], [place] [id number] ACUTE ILLNESS 07/25/2019 Patient Education: cefdinir- [employer] Coupon [id number] https://www.[employer]Rely[employer].com/samplemd/resources/getResource/61/op2w8alw-2268-8391-8u Completed 07/25/2019 Visit Diagnosis Plan: Chronic pancreatitis Discussion: Continue zenpep and recheck CMP with amylase/lipase in 1 month ICD-9 : 577.1 ICD-10 : K86.1 06/12/2019 Appointment: Keily Arango WPtel: [phone] [facility] Annual Well Visit 06/12/2019 Visit Diagnosis [...] J18.9 05/08/2019 Appointment: Keily Arango WPtel: [phone] [facility] Hospital Follow Up 05/08/2019 Visit Diagnosis Plan: [...] ICD-10 : H66.91 05/03/2019 Appointment: Fatou Onofre [address] [place] [address] ACUTE ILLNESS 05/03/2019 Patient Education: amoxicillin- [employer] Coupon [id number] https://www.eRelyx.com/samplemd/resources/getResource/61/[email or web address] Completed 05/03/2019 Visit Diagnosis Plan: Irritability and [...] : R45.4 11/25/2018 Appointment: Nataliia Hsieh [address] ACUTE ILLNESS 11/25/2018 Visit Diagnosis Plan: Acute suppurative otitis media without spontaneous rupture of ear drum, bilateral Discussion: cefdinir for 10 days. if wor sening symptoms later this week, call clinic. push fluids and tylenol/ibuprofen prn pain or fever. ICD-9 : 382.00 ICD-10 : H66.003 06/13/2018 Appointment: Fatou Onofre [address] [place] [address] ACUTE ILLNESS 06/13/2018 Visit Diagnosis Plan: Anuria [...] ICD-10 : K29.00 01/04/2018 Appointment: Fatou Onofre [address] [place] [address] ACUTE ILLNESS 01/04/2018 Patient Education: Patient Medication Summary Completed 01/04/2018 Visit Diagnosis Plan: Acute bronchitis, unspecified Di scussion: zithromax prescribed to take as directed. continue with allergy meds including flonase to help dry congestion. call office next week if new or worsening symptoms. ICD-9 : 466.0 ICD-10 : J20.9 12/31/2017 Appointment: Fatou Onofre [address] [place] [address] ACUTE ILLNESS 12/31/2017 Patient Education: Patient Medication [...] Visit Diagnosis Plan: Encounter for [facility] adult medical examination without abnormal findings Discussion: Had recent lab done Follow Up: 3 months ICD-9 : V70.9 ICD-10 : Z00.00 12/14/2017 Appointment: Keily Arango WPtel: [address] [place] [address] CHECK UP 12/14/2017 Patient Education: Patient Medication [...] : J30.1 12/02/2017 Appointment: Keily Arango WPtel: [address] [place] [address] ACUTE ILLNESS 12/02/2017 Patient Education: Patient Medication Summary Completed 12/02/2017 Visit Diagnosis Plan: Other allergic rhinitis Discussi on: symptoms most likely caused from allergies. patient sent to hospital for decadron injection. instructed to restart patient's flonase at home. if new or worsening symptoms, call or rtc. ICD-9 : 477.8 ICD-10 : J30.89 10/12/2017 Appointment: Fatou Onofre [address] [place] [address] ACUTE ILLNESS 10/12/2017 Patient Education: Patient Medication [...] ICD-10 : G40.919 09/17/2017 Appointment: Fatou Onofre [address] [place] [address] ACUTE ILLNESS 09/17/2017 Patient Education: Patient Medication Summary Completed 09/17/2017 Visit Diagnosis Plan: Otitis media, unspecified, left ear Discussion: cefdinir prescribed daily for 10 days. instructed to administer tylenol/ibuprofen for pain or fever. if no improvement, or worsening symptoms, call or rtc. ICD-9 : 380.14 ICD-10 : H66.92 08/06/2017 Appointment: Fatou Onofre [address] [place] [address] ACUTE ILLNESS 08/06/2017 Patient Education: Patient Medication Summary Completed 08/06/2017 Patient Education: Patient Medication Summary Completed 08/02/2017 Patient Education: Patient Medication Summary Completed 04/21/2017 Care Plan: MRI BRAIN STEM W/O DYE LOINC : 84350-3 Pending 04/21/2017 Patient Education: Patient Medication Summary Completed 04/20/2017 Care Plan: MRI BRAIN STEM W/O DYE LOINC : 55405-8 Pending 04/20/2017 Visit Diagnosis Plan: Vertigo of central origin, unspe cified ear Discussion: Continue meclizine at 12.5mg po BID for 2 more weeks then go to 12.5mg daily for 2 weeks then 6.25mg daily for 2 weeks then stop Notify if any symptoms return with weaning process ICD-9 : 386.2 ICD-10 : H81.49 04/01/2017 Appointment: Keily Arango WPtel: [phone] [facility] FOLLOW UP 04/01/2017 Patient Education: Patient Medication Summary Completed 04/01/2017 Patient Education: Patient Medication Summary Completed 03/09/2017 Care Plan: CT HEAD/BRAIN W/O DYE LOINC : 40358-4 Pending 03/09/2017 Visit Plan: It's difficult to [...] medications indicated. 03/01/2017 Appointment: Emely Hdz WPtel: [address] [place] [address] ACUTE ILLNESS 03/01/2017 Patient Education: Patient Medication Summary Completed 03/01/2017 Patient Education: Patient Medication Summary Completed 12/17/2016 Visit Diagnosis Plan: Acute and subacute allergic otitis media (mucoid) (sanguinous) (serous), left ear Discussion: Zithromax ICD-9 : 381.05 ICD-10 : H65.112 11/10/2016 Visit Diagnosis Plan: Allergic rhinitis due to pollen Discussion: Continue zyrtec/singulair ICD-9 : 477.9 ICD-10 : J30.1 11/10/2016 Appointment: Keily Arango WPtel: [address] [place], [place] [phone] ACUTE ILLNESS 11/10/2016 Patient Education: Patient Medication Summary Completed 11/10/2016 Patient Education: Patient Medication Summary Completed 09/07/2016 Care Plan: URINALYSIS AUTO W/[place] : 49655-3 Pending 09/07/2016 Visit Diagnosis Plan: Cyst of [...] : N83.201 08/13/2016 [facility]ment[phone] [facility]/12 confirmed-sp FOLLOW UP 08/13/2016 Patient Education: Patient Medication Summary Completed 08/13/2016 Patient Education: Patient Medication Summary Completed 05/19/2016 Care Plan: X-RAY EXAM OF FOOT left foot LOINC : 26 095-0 Pending 05/19/2016 Visit Plan: Discussed with Dr Conchita MAGANA C to be drawn Order sent to Will call with results 03/27/2016 Appointment: Aziza Magallanes [address] [place], [place] [address] ACUTE ILLNESS 03/27/2016 Patient Education: Patient Medication Summary Completed 03/27/2016 Visit Plan: Go for dose of rocephin 1gm IM today and tomorrow then done Diflucan 150mg x1 today Discussed with mom via phone about urology fwup--she will talk with her and let us know 03/23/2016 Appointment: [phone] [facility] 03/23 confirmed ~sl FOLLOW UP 03/23/2016 Patient Education: Patient Medication Summary Completed 03/23/2016 Visit Plan: Per Dr Arango, mauro cat h for UA and culture today Ok to have a standing order for further UA needs at for straight cath Rocephin IM today and daily through Wednesday Mom has arranged a family friend that is an [employer] to give Wednesday and Sundays injections - rxs for rocephin and lido sent to [facility] cannot order the lido in the qty patient needs) Dr Arango wants patient to be re-evaluated on Wednesday in clinic Referral to Urology for recurrent UTIs and urinary retention - mom wants to research who she wants her sent to and let us know 03/19/2016 Appointment: Aziza Magallanes [address] [place], [place] [address] ACUTE ILLNESS 03/19/2016 Patient Education: Patient Medication Summary Completed 03/19/2016 Visit Plan: 1 more week of cefdinir 03/02/2016 Appointment: Keily Arango WPtel: [facility] 03/02 confirmed~sl WORK IN 03/02/2016 Patient [...] seen if worsening 02/24/2016 Appointment: Aziza Magallanes [address] [place] [address] ACUTE ILLNESS 02/24/2016 Patient Education: Patient Medication Summary Completed 02/24/2016 Care Plan: CHEST X-RAY 2VW FRONTAL&LATL LOINC : 26662-5 Pending 02/24/2016 Care Plan: X-RAY EXAM OF ABDOMEN LOINC : 38749-4 Pending 02/24/2016 Visit Plan: Repeat zithromax x1 week Cip rodex to right ear x1 week Add Pepcid q HS x2-4 weeks for total histamine blockade and for extra stomach protection while on zithromax 12/16/2015 Appointment: Keily Arango WPtel: [phone] [facility] US 6/9 lm~sl /10 lm ~sl FOLLOW UP 12/16/2015 Patient Education: Patient Medication Summary Completed 12/16/2015 Patient Education: [facility] Saving [employer] - Sertraline HCL - 18-64 - Dynamic Portal ID Completed 12/16/2015 Visit Plan: Saline nasal flushes prn. Ty lenol/Motrin prn headache. Notify if persists/symptoms worsens Dexamethasone given 11/12/2015 Appointment: [phone] [facility] [facility] 5 lm~sl 11/11 lm~sl 10 confirm-sp [...] visits for Belkys 10/16/2015 Appointment: Aziza Magallanes [address] [place], [place] [phone] ACUTE ILLNESS 10/16/2015 Patient Education: Patient Medication Summary Completed 10/16/2015 Appointment: Aziza Magallanes [address] [place] [address] [place] canceled, feeling better CANCELED 016 Visit Plan: No further abx needed [facility] and restart carafate Notify if abdominal pain worsens 09/23/2015 Appointment: [facility]ily [phone] [facility] 09/19 confirmed-sp FOLLOW UP 09/23/2015 Patient Education: [...] done in the past. Order sent to [facility] since [facility] does not have in stock. Recheck in [...] try for now. 09/20/2015 Appointment: Elpidio Aziza [address] [id number] ACUTE ILLNESS 09/20/2015 Patient Education: Patient Medication Summary Completed 09/20/2015 Visit Plan: Depo Medrol 40mg/ Kenalog 40 mg IM today Resume Ciprodex otic gtts. bid to Rt. ear 09/10/2015 Appointment: Bibiana Garg WPtel: [phone] [phone] 09/08 confirmed-sp ACUTE ILLNESS 09/10/2015 Patient Education: Patient Medication Summary Completed 09/10/2015 Visit Plan: Increase Protonix to 40mg po BID for 1month Continue carafate at q AC dosing for full month then wean off Jevity for 2 more days then advance diet if able Continue current meds 08/21/2015 Appointment: Keily Arango WPtel: [phone] [phone] NEW PATIENT 08/21/2015 Patient Education: Patient Medication [...] arranged a family friend that is an [employer] to give Wednesday and Sundays injections - [...] No further abx needed [facility] back [facility] and [...] done in the past. Order sent to [facility] since [facility] does not have in [...]
--- OUTSIDE RECORDS SUMMARY | 2019-11-10 19:35 | XMS REPORT | CCD ---
Author Author Belkys Arango D.O. 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 Name Role Phone Keily Arango D.O., PP Unavailable CCM Unavailable Summary Purpose Interface Exchange Insurance Providers Payer name Policy type / Coverage type Covered libertarian ID Effective Begin Date Effective End Date [employer] [facility] [place] Medicaid [id number] U nknown Family History Family History data not found Social History Social History Element Codes Description Effective Dates Marital status Unknown Single 08/21/2015 Employment Unknown Currently unemployed Physically handicapped 08/21/[address]: 316922701 Has never smoked or chewed tobacco 08/21/[address]: 395577464 Never drinks alcohol 2015 Allergies, Adverse Reactions, [...] Ciprodex 0.3 %-0.1 % ear drops,suspension RxNorm: 314845 SHAKE LIQUID AND INSTILL 4 DROPS IN AFFECTED EAR(S) TWICE DAILY 09/22/2019 10/15/2019 A ctive diazepam 10 mg tablet RxNorm: 804020 TAKE 1 TABLET BY M OUTH EVERY NIGHT AT BEDTIME NEEDED 09/11/2019 10/10/2019 Active meclizine 12.5 mg tablet RxNorm: 989369 TAKE 1 TABLET B Y MOUTH THREE TIMES DAILY NEEDED 08/31/2019 10/29/2019 Active Ciprodex 0.3 %-0.1 % ear drops,suspension RxNorm: 910641 SHAKE LIQUID AND INSTILL 4 DROPS IN AFFECTED EAR(S) TWICE DAILY 08/31/2019 09/07/2019 I nactive Ciprodex 0.3 %-0.1 % ear drops,suspension RxNorm: 793550 SHAKE LIQUID AND INSTILL 4 DROPS IN AFFECTED EAR(S) TWICE DAILY 08/11/2019 08/18/2019 I nactive meclizine 12.5 mg tablet RxNorm: 715377 TAKE 1 TABLET B Y MOUTH THREE TIMES DAILY NEEDED 08/04/2019 08/30/2019 Inactive cefdinir 250 mg/5 mL oral suspension RxNorm: 131687 12 Milliliter(s) Oral QD though PEG tube 07/25/2019 08/03/2019 Inactive Zenpep 40,000 unit-126,000 unit-168,000 unit capsule,d elayed release RxNorm: 5545128 1 Capsule(s) Oral AC 07/10/2019 11/06/2019 Active famotidine 20 mg tablet RxNorm: 333919 TAKE 1 TABLET BY MOUTH EVERY NIGHT AT BEDTIME 07/09/2019 01/04/2020 Active sertraline 50 mg tablet RxNorm: 248148 TAKE 1 TABLET BY MOUTH EVERY NIGHT AT BEDTIME 07/09/2019 09/06/2019 Inactive Zenpep 40,000 unit-126,000 unit-168,000 unit capsule,d elayed release RxNorm: 4963095 1 Capsule(s) Oral AC 06/12/2019 07/09/2019 Inactive Zenpep 40,000 unit-126,000 unit-168,000 unit capsule,d elayed release RxNorm: 4642720 1 Capsule(s) Oral AC 05/24/2019 05/23/2019 Inactive Zenpep 40,000 unit-126,000 unit-168,000 unit capsule,d elayed release RxNorm: 8517996 1 Capsule(s) Oral AC 05/24/2019 06/11/2019 Inactive Ciprodex 0.3 %-0.1 % ear drops,suspension RxNorm: 872889 DROP(S) 4 DROP(S) OTIC BID 05/22/2019 06/18/2019 Inactive oxcarbazepine 300 mg/5 mL (60 mg/mL) oral suspension RxNorm: 494362 15 Milliliter(s) Oral two times a day 05/08/2019 11/03/2019 Active meclizine 12.5 mg tablet RxNorm: 734719 1 TABLET(S) PO TID NEEDE D 05/05/2019 08/02/2019 Inactive change in quantity Zithromax 200 mg/5 mL oral suspension RxNorm: 502213 12.5 Dilcia liter(s) Oral QD 05/04/2019 05/09/2019 Inactive amoxicillin 400 mg/5 mL oral suspension RxNorm: 231703 10 Milliliter(s) Oral two times a day 05/03/2019 05/13/2019 Inactive Singulair 10 mg tablet RxNorm: 661472 1 TABLET(S) PO QD 03/28/2019 Inactive Macrobid 100 mg capsule RxNorm: 475560 1 Capsule(s) PO BID 03/16/2003/22/2019 Inactive meclizine 12.5 mg tablet RxNorm: 138476 1 Tablet(s) PO TID as neede d 03/10/2019 05/04/2019 Inactive change in quantity Ciprodex 0.3 %-0.1 % ear drops,suspension RxNorm: 866222 DROP(S) 4 DROP(S) OTIC BID 03/08/2019 04/04/2019 Inactive oxcarbazepine 300 mg/5 mL (60 mg/mL) oral suspension RxNorm: 797742 15 Milliliter(s) PO BID 03/07/2019 05/07/2019 Inactive Macrobid 100 mg capsule RxNorm: 173706 1 Capsule(s) PO BID 02/21/2003/01/2019 Inactive Macrobid 100 mg capsule RxNorm: 239992 1 Capsule(s) PO BID 02/21/2002/19/2019 Inactive meclizine 12.5 mg tablet RxNorm: 904616 1 Tablet(s) PO TID as neede d 02/06/2019 03/07/2019 Inactive change in quantity Ciprodex 0.3 %-0.1 % ear drops,suspension RxNorm: 175110 DROP(S) 4 DROP(S) OTIC BID 01/30/2019 02/12/2019 Inactive diazepam 10 mg tablet RxNorm: 560813 1 Tablet(s) PO QHS as needed 0 01/27/2019 09/10/2019 Inactive sertraline 50 mg tablet RxNorm: 762658 1 Tablet(s) PO QHS 12/29/2018 06/26/2019 Inactive famotidine 20 mg tablet RxNorm: 584637 1 Tablet(s) PO QHS 12/29/2018 06/26/2019 Inactive Ciprodex 0.3 %-0.1 % ear drops,suspension RxNorm: 411852 DROP(S) 4 DROP(S) OTIC BID 12/14/2018 12/27/2018 Inactive Generlac 10 gram/15 mL oral solution RxNorm: 978165 15 Milliliter(s) PO TWO TO THREE TIMES DAILY 12/06/2018 06/03/2019 Inactive Protonix 40 mg tablet,delayed release RxNorm: 021714 1 Tablet(s) PO or per feeding tube BID 11/24/2018 05/22/2019 Inactive meclizine 12.5 mg tablet RxNorm: 409662 1 Tablet(s) PO TID as neede d 11/11/2018 02/06/2019 Inactive change in quantity Ciprodex 0.3 %-0.1 % ear drops,suspension RxNorm: 802047 DROP(S) 4 DROP(S) OTIC BID 11/08/2018 11/21/2018 Inactive diazepam 10 mg tablet RxNorm: 598847 1 Tablet(s) PO QHS as needed 0 10/21/2018 11/19/2018 Inactive Generlac 10 gram/15 mL oral solution RxNorm: 317541 Mil liliter(s) 15 MILLILITER(S) PO TWO TO THREE TIMES DAILY 10/07/2018 11/05/2018 Inacti ve Ciprodex 0.3 %-0.1 % ear drops,suspension RxNorm: 005549 DROP(S) DROP(S) 4 DROP(S) OTIC BID 08/26/2018 03/15/2019 Inactive meclizine 12.5 mg tablet RxNorm: 905677 1 TABLET(S) PO TID NEEDE D 07/25/2018 10/22/2018 Inactive change in quantity oxcarbazepine 300 mg/5 mL (60 mg/mL) oral suspension RxNorm: 486021 15 Milliliter(s) PO BID 07/08/2018 07/07/2018 Inactive oxcarbazepine 300 mg/5 mL (60 mg/mL) oral suspension RxNorm: 764398 15 Milliliter(s) PO BID 07/08/2018 01/03/2019 Inactive sertraline 50 mg tablet RxNorm: 986117 1 TABLET(S) PO QHS 07/06/2018 12/28/2018 Inactive Singulair 10 mg tablet RxNorm: 545191 1 TABLET(S) PO QD 06/24/2018 Inactive Ciprodex 0.3 %-0.1 % ear drops,suspension RxNorm: 850675 DROP(S) 4 DROP(S) OTIC BID 06/20/2018 06/19/2018 Inactive Ciprodex 0.3 %-0.1 % ear drops,suspension RxNorm: 470249 Drop(s) DROP(S) 4 DROP(S) OTIC BID 06/20/2018 07/03/2018 Inactive cefdinir 250 mg/5 mL oral suspension RxNorm: 655033 12 Milliliter(s) PO QD though PEG tube 06/13/2018 06/22/2018 Inactive famotidine 20 mg tablet RxNorm: 638273 1 Tablet(s) PO QHS 05/31/2018 11/26/2018 Inactive famotidine 40 mg/5 mL (8 mg/mL) oral suspension RxNorm: 3102 74 2.5 Milliliter(s) PO QHS 04/29/2018 06/12/2018 Inactive meclizine 12.5 mg tablet RxNorm: 865341 1 TABLET(S) PO TID NEEDE D 04/25/2018 07/23/2018 Inactive change in quantity Generlac 10 gram/15 mL oral solution RxNorm: 053477 Mil liliter(s) 15 MILLILITER(S) PO TWO TO THREE TIMES DAILY 04/04/2018 05/03/2018 Inacti ve Ciprodex 0.3 %-0.1 % ear drops,suspension RxNorm: 186735 Drop(s) 4 DROP(S) OTIC BID 04/04/2018 04/17/2018 Inactive diazepam 10 mg tablet RxNorm: 073696 1 Tablet(s) PO QHS as needed 1 05/03/2018 Inactive famotidine 40 mg/5 mL (8 mg/mL) oral suspension RxNorm: 3102 74 2.5 Milliliter(s) PO QHS 04/04/2018 04/28/2018 Inactive Generlac 10 gram/15 mL oral solution RxNorm: 039215 15 MILLILITER(S) PO TWO TO THREE TIMES DAILY 03/24/2018 04/03/2018 Inactive Singulair 10 mg tablet RxNorm: 182582 1 TABLET(S) PO QD 03/18/2018 Inactive Ciprodex 0.3 %-0.1 % ear drops,suspension RxNorm: 312668 Drop(s) 4 DROP(S) OTIC BID 03/08/2018 03/21/2018 Inactive Generlac 10 gram/15 mL oral solution RxNorm: 663760 15 Milliliter(s) PO two to three times daily 03/03/2018 03/23/2018 Inactive meclizine 12.5 mg tablet RxNorm: 347450 1 Tablet(s) PO TID as neede d 02/10/2018 04/10/2018 Inactive change in quantity meclizine 12.5 mg tablet RxNorm: 057310 1 Tablet(s) PO BID as neede d 02/07/2018 02/09/2018 Inactive change in quantity Ciprodex 0.3 %-0.1 % ear drops,suspension RxNorm: 498626 Drop(s) 4 DROP(S) OTIC BID 02/02/2018 03/08/2018 Inactive sertraline 50 mg tablet RxNorm: 325870 1 TABLET(S) PO QHS 01/25/2018 07/05/2018 Inactive Zithromax 200 mg/5 mL oral suspension RxNorm: 144902 12.5 Dilcia liter(s) PO QD 12/31/2017 01/04/2018 Inactive Pepcid 20 mg tablet RxNorm: 973127 TABLET(S) 1 TABLET(S) PO QHS 04/29/2018 Inactive famotidine 40 mg/5 mL (8 mg/mL) oral suspension RxNorm: 3102 74 2.5 Milliliter(s) PO QHS 12/28/2017 12/27/2017 Inactive famotidine 40 mg/5 mL (8 mg/mL) oral suspension RxNorm: 3102 74 2.5 Milliliter(s) PO QHS 12/28/2017 04/03/2018 Inactive Ciprodex 0.3 %-0.1 % ear drops,suspension RxNorm: 851913 Drop(s) 4 DROP(S) OTIC BID 12/27/2017 02/02/2018 Inactive meclizine 12.5 mg tablet RxNorm: 245817 1 Tablet(s) PO BID as neede d 12/23/2017 02/06/2018 Inactive change in quantity Protonix 40 mg tablet,delayed release RxNorm: 197996 1 Tablet(s) PO or per feeding tube BID 12/16/2017 07/13/2018 Inactive oxcarbazepine 300 mg/5 mL (60 mg/mL) oral suspension RxNorm: 894297 15 Milliliter(s) PO BID 12/16/2017 07/08/2018 Inactive meclizine 12.5 mg tablet RxNorm: 438256 1 Tablet(s) PO BID as neede d 12/15/2017 02/07/2018 Inactive change in quantity Pepcid 40 mg/5 mL (8 mg/mL) oral suspension RxNorm: 072704 5 Milliliter(s) PO QHS to replace nighttime pantoprazole dose 12/14/2017 12/27/2017 Inact марина meclizine 12.5 mg tablet RxNorm: 531977 1 Tablet(s) PO BID as neede d 12/13/2017 12/23/2017 Inactive diazepam 10 mg tablet RxNorm: 518827 1 Tablet(s) PO QHS as needed 0 12/02/2017 03/01/2018 Inactive prednisolone 15 mg/5 mL oral solution RxNorm: 754584 5 Milliliter(s) PO BID for 3 days then 5ml daily for 3 days then 2.5ml daily for 3 days 12/02/2017 12/13/2017 Inactive sertraline 50 mg tablet RxNorm: 647458 1 Tablet(s) PO QHS 11/04/2017 01/24/2018 Inactive Ciprodex 0.3 %-0.1 % ear drops,suspension RxNorm: 085503 Drop(s) 4 DROP(S) OTIC BID 10/18/2017 10/31/2017 Inactive Ciprodex 0.3 %-0.1 % ear drops,suspension RxNorm: 850390 Drop(s) 4 DROP(S) OTIC BID 10/18/2017 12/27/2017 Inactive Singulair 10 mg tablet RxNorm: 800719 1 Tablet(s) PO QD 09/30/2017 Inactive diazepam 5 mg/5 mL (1 mg/mL) oral solution RxNorm: 443760 2.5 Milliliter(s) PO QD give additional 5 mg dose if seizure occurs 09/17/2017 No Stop Date A ctive Bactrim DS 800 mg-160 mg tablet RxNorm: 781013 1 Tablet(s) PO BID 0 09/17/2017 09/23/2017 Inactive Ciprodex 0.3 %-0.1 % ear drops,suspension RxNorm: 989881 4 DROP (S) OTIC BID 09/13/2017 10/18/2017 Inactive cefdinir 250 mg/5 mL oral suspension RxNorm: 388954 12 Milliliter(s) PO QD though PEG tube 08/06/2017 08/15/2017 Inactive sertraline 50 mg tablet RxNorm: 115508 1 Tablet(s) PO QHS 08/02/2017 11/04/2017 Inactive Ciprodex 0.3 %-0.1 % ear drops,suspension RxNorm: 473249 4 DROP (S) OTIC BID 07/22/2017 08/11/2017 Inactive Singulair 10 mg tablet RxNorm: 966792 1 Tablet(s) PO QD 06/30/2017 Inactive diazepam 10 mg tablet RxNorm: 434422 TAKE 1 TABLET BY M OUTH EVERY NIGHT AT BEDTIME NEEDED 06/04/2017 07/03/2017 Inactive oxcarbazepine 300 mg/5 mL (60 mg/mL) oral suspension RxNorm: 202230 15 MILLILITER(S) PO BID 05/03/2017 12/16/2017 Inactive sertraline 50 mg tablet RxNorm: 377090 1 Tablet(s) PO QHS 05/03/2017 08/02/2017 Inactive Protonix 40 mg tablet,delayed release RxNorm: 906640 1 Tablet(s) PO or per feeding tube BID 04/26/2017 12/16/2017 Inactive Ciprodex 0.3 %-0.1 % ear drops,suspension RxNorm: 019186 4 DROP (S) OTIC BID 04/26/2017 05/23/2017 Inactive Generlac 10 gram/15 mL oral solution RxNorm: 521587 Mil liliter(s) TAKE 15 ML BY MOUTH TWO-THREE TIMES DAILY 04/08/2017 03/03/2018 Inactive Singulair 10 mg tablet RxNorm: 891171 1 Tablet(s) PO QD 03/03/2017 Inactive diazepam 10 mg tablet RxNorm: 469581 1 Tablet(s) PO QHS as needed 0 02/15/2017 06/04/2017 Inactive Singulair 10 mg tablet RxNorm: 506431 1 Tablet(s) PO QD 12/01/2016 Inactive Diflucan 150 mg tablet RxNorm: 637312 Tablet(s) Give 1 tab PO now and then repeat dose in 5 days 11/10/2016 03/31/2017 Inactive Zithromax 200 mg/5 mL oral suspension RxNorm: 685487 12.5 Dilcia liter(s) PO QD 11/10/2016 11/14/2016 Inactive Singulair 10 mg tablet RxNorm: 018738 TAKE 1 TABLET BY MOUTH ON CE DAILY 11/02/2016 12/01/2016 Inactive diazepam 10 mg tablet RxNorm: 268610 TAKE 1 TABLET BY M OUTH EVERY NIGHT AT BEDTIME NEEDED 10/21/2016 11/19/2016 Inactive sertraline 50 mg tablet RxNorm: 783170 1 Tablet(s) PO QHS 10/12/2016 01/09/2017 Inactive fluconazole 100 mg tablet RxNorm: 026363 1 Tablet(s) PO QD 09/23/19 17 09/24/2016 Inactive fluconazole 100 mg tablet RxNorm: 812930 1 Tablet(s) PO QD 09/23/19 17 09/21/2016 Inactive Bactrim DS 800 mg-160 mg tablet RxNorm: 848973 1 Tablet(s) PO BID 0 09/10/2016 09/09/2016 Inactive Bactrim DS 800 mg-160 mg tablet RxNorm: 060344 1 Tablet(s) PO BID 0 09/10/2016 09/16/2016 Inactive oxcarbazepine 300 mg/5 mL (60 mg/mL) oral suspension RxNorm: 096716 15 Milliliter(s) PO BID 09/07/2016 03/05/2017 Inactive sertraline 50 mg tablet RxNorm: 851031 1 Tablet(s) PO QHS 07/06/2016 10/03/2016 Inactive Pepcid 20 mg tablet RxNorm: 491587 Tablet(s) 1 TABLET(S) PO QHS 08/201603/08/2017 Inactive sertraline 50 mg tablet RxNorm: 282751 1 Tablet(s) PO QHS 06/08/2016 05/03/2017 Inactive Generlac 10 gram/15 mL oral solution RxNorm: 822764 Mil liliter(s) TAKE 15 ML BY MOUTH TWO-THREE TIMES DAILY 06/08/2016 09/08/2016 Inactive Pepcid 20 mg tablet RxNorm: 508173 1 TABLET(S) PO QHS 06/04/201607/2016 Inactive fluconazole 100 mg tablet RxNorm: 377912 1 Tablet(s) QD through PEG tube 05/13/2016 12/01/2017 Inactive Diflucan 150 mg tablet RxNorm: 515004 Give 1 tab PO now and then repeat dose in 5 days 03/19/2016 11/09/2016 Inactive ceftriaxone 1 gram solution for injection RxNorm: 4535871 1 Gram(s) IM QD Wednesday and Wednesday03/19/2016 11/09/2016 Inactive lidocaine 10 mg/mL (1 %) injection solution RxNorm: 6946211 Use as directed to reconstitute Rocephin when needed 03/19/2016 12/13/2017 Inactive Generlac 10 gram/15 mL oral solution RxNorm: 503392 JOE E 15 ML BY MOUTH TWO- THREE TIMES DAILY 03/19/2016 06/07/2016 Inactive oxcarbazepine 300 mg/5 mL oral suspension RxNorm: 585661 15 Milliliter(s) PO BID 03/13/2016 09/07/2016 Inactive Ciprodex 0.3 %-0.1 % ear drops,suspension RxNorm: 195642 4 DROP (S) OTIC BID 03/09/2016 03/15/2016 Inactive cefdinir 250 mg/5 mL oral suspension RxNorm: 451102 11. 75 Milliliter(s) PO QD though PEG tube 03/02/2016 03/08/2016 Inactive cefdinir 250 mg/5 mL oral suspension RxNorm: 882501 11. 75 Milliliter(s) PO QD though PEG tube 02/24/2016 03/01/2016 Inactive cefdinir 250 mg/5 mL oral suspension RxNorm: 899432 11. 75 Milliliter(s) PO QD though PEG tube 02/24/2016 02/23/2016 Inactive Ciprodex 0.3 %-0.1 % ear drops,suspension RxNorm: 947292 4 Drop (s) OTIC BID 02/24/2016 03/01/2016 Inactive Generlac 10 gram/15 mL oral solution RxNorm: 594331 JOE E 15 ML BY MOUTH TWICE DAILY 02/17/2016 03/18/2016 Inactive Generlac 10 gram/15 mL oral solution RxNorm: 955579 15 Millilit er(s) PO BID 01/23/2016 02/16/2016 Inactive Pepcid 20 mg tablet RxNorm: 905426 1 TABLET(S) PO QHS 01/13/201605/07 Inactive Ciprodex 0.3 %-0.1 % ear drops,suspension RxNorm: 711750 4 Drop (s) OTIC BID 12/23/2015 12/29/2015 Inactive sertraline 50 mg tablet RxNorm: 785142 1 Tablet(s) PO QHS 12/16/2015 06/07/2016 Inactive Zithromax 500 mg tablet RxNorm: 313409 1 Tablet(s) PO QD 12/16/2015 0 12/22/2015 Inactive Pepcid 20 mg tablet RxNorm: 062723 1 Tablet(s) PO QHS 12/16/201501/02 Inactive Zithromax 500 mg tablet RxNorm: 326436 1 Tablet(s) PO QD 11/12/2015 0 11/18/2015 Inactive Singulair 10 mg tablet RxNorm: 892286 1 Tablet(s) PO BID 10/16/2015 0 11/11/2015 Inactive diazepam 10 mg tablet RxNorm: 210667 1 Tablet(s) PO QHS 10/07/2015 Inactive diazepam 10 mg tablet RxNorm: 902054 1 Tablet(s) PO QHS 10/07/2015 Inactive fexofenadine 30 mg/5 mL oral suspension RxNorm: 203173 10 Milliliter(s) PO one to two times daily PRN allergies 09/20/2015 12/15/2015 Inactive ceftriaxone 1 gram solution for injection RxNorm: 0373428 1 Gram (s) IM QD 09/20/2015 09/21/2015 Inactive Ciprodex 0.3 %-0.1 % ear drops,suspension RxNorm: 876998 4 Drop (s) OTIC BID 09/20/2015 10/03/2015 Inactive Protonix 40 mg tablet,delayed release RxNorm: 782147 1 Tablet(s) PO or per feeding tube BID 08/21/2015 12/18/2015 Inactive Carafate 100 mg/mL oral suspension RxNorm: 073738 10 Mi lliliter(s) Miscellaneous per feeding tube AC & HS 08/21/2015 09/19/2015 Inactive Zyrtec 10 mg tablet RxNorm: 2730327 1 Tablet(s) PO QD No Start Date Active diazepam 20 mg rectal kit RxNorm: 839318 RTL as needed No Start Date Active Lortab Elixir 10 mg-300 mg/15 mL oral solution RxNorm: 12009 45 8 PO Q6-8H as needed No Start Date Active ondansetron HCl 4 mg/5 mL oral solution RxNorm: 594117 10 Milliliter(s) PO as needed and through tube No Start Date Active sertraline 50 mg tablet RxNorm: 832946 1 Tablet(s) PO QD No Start D ate 12/15/2015 Inactive Brittany 180 mg tablet RxNorm: 894819 1 Tablet(s) PO QD No Start Date 06/12/2018 Inactive Generlac 10 gram/15 mL oral solution RxNorm: 250514 15 Millilit er(s) PO BID No Start Date 01/22/2016 Inactive oxcarbazepine 300 mg/5 mL oral suspension RxNorm: 921115 13.5 Milliliter(s) PO QAM and 15ml in the evening No Start Date 12/15/2015 Inactive Singulair 10 mg tablet RxNorm: 818724 1 Tablet(s) PO QD No Start Da te 11/30/2016 Inactive meclizine 12.5 mg tablet RxNorm: 125846 1 Tablet(s) PO TID as needed for dizziness No Start Date 09/13/2017 Inactive meclizine 12.5 mg tablet RxNorm: 924327 1 Tablet(s) PO BID No Start Date 12/12/2017 Inactive fluconazole 100 mg tablet RxNorm: 997594 1 Tablet(s) QD through PEG tube No Start Date 05/12/2016 Inactive Flomax 0.4 mg capsule RxNorm: 113008 1 Capsule(s) PO QD No Start Da te 06/12/2018 Inactive diazepam 10 mg tablet RxNorm: 794202 1 Tablet(s) PO QHS as needed N o Start Date 02/14/2017 Inactive Generlac 10 gram/15 mL oral solution RxNorm: 553280 15 Milliliter(s) PO two to three times daily No Start Date 03/02/2018 Inactive oxcarbazepine 300 mg/5 mL oral suspension RxNorm: 545407 15 Milliliter(s) PO BID No Start Date 12/15/2017 Inactive Medication Administered No Medication Administered data Immunizations Vaccine Codes Date Status Influenza CVX: 141 04/21/2019 Results No Results data Procedures Procedure Codes Date DEXAMETHASONE SODIUM PHOS CPT-4: J1100 05/03/2019 THER/PROPH/DIAG INJ SC/IM CPT-4: 76056 05/03/2019 CEFTRIAXONE SODIUM INJECTION CPT-4: J0696 03/19/2016 THER/PROPH/DIAG INJ SC/IM CPT-4: 07122 03/19/2016 DEXAMETHASONE SODIUM PHOS CPT-4: J1100 11/12/2015 THER/PROPH/DIAG INJ SC/IM CPT-4: 09769 11/12/2015 CEFTRIAXONE SODIUM INJECTION CPT-4: J0696 09/20/2015 THER/PROPH/DIAG INJ SC/IM CPT-4: 36090 09/20/2015 THER/PROPH/DIAG INJ SC/IM CPT-4: 47183 09/10/2015 METHYLPREDNISOLONE 40 MG INJ CPT-4: J1030 09/10/2015 TRIAMCINOLONE ACET INJ NOS CPT-4: J3301 09/10/2015 Vital Signs Date Vital 07/25/2019 Blood Pressure 1: 116/80 Code: 8480-6 BMI: 23.2 Code: 73050-2 Heart Rate 1: 81 bpm Height: 4'5" Respiratory Rate: 16 bpm SpO2: 100% Tempera ture: 36.8 (C) / 98.2 (F) Weight: 92 lbs 06/12/2019 Blood Pressure 1: 112/74 Code: 8480-6 BMI: 23.2 Code: 48543-2 Heart Rate 1: 102 bpm Height: 4'5" [...] 1: 114/70 Code: 8480-6 BMI: 23.1 Code: 64338-0 Heart Rate 1: 80 bpm Height: 4'6" [...] 09/20/2015 otalgia 09/10/2015 ~generic 08/21/2015 New Patient----estab [facility] visit Encounters Encounter Performer Location Codes Date () OFFICE/OUTPATIENT VISIT EST Diagnosis: Allergic rhinitis[ICD10: J30.9] Fatou Onofre [facility] CPT-4: 98783 10/05/2019 ([id number]) OFFICE/OUTPATIENT VISIT EST Diagnosis: Sinusitis[ICD10: J32.9] Fatou GILBERT [facility] CPT-4: 01647 07/25/2019 ([id number]) PREV VISIT EST AGE 18-39 Diagnosis: Encounter for general adult medical examination with abnormal findings[ICD10: Z00.01] Diagnosis: Chronic pancreatitis[ICD10: K86.1] Diagnosis: Cerebral palsy, unspecified[ICD10: G80.9] Keily ARANGO [facility] CPT-4: 05582 06/12/2019 ([id number]) OFFICE/OUTPATIENT VISIT EST Diagnosis: Pneumonia, organism unspecified[ICD10: J18.9] Diagnosis: Breast mass, right[ICD10: N63.10] Keily ARANGO [facility] CPT-4: 84348 05/08/2019 ([id number]) OFFICE/OUTPATIENT VISIT EST Diagnosis: Allergic rhinitis due to pollen[ICD10: J30.1] Diagnosis: Otitis media, unspecified, right ear[ICD10: H66.91] Fatou ARANGO [facility] CPT-4: 30007 05/03/2019 ([id number]) OFFICE/OUTPATIENT VISIT EST Diagnosis: Irritability and anger[ICD10: R45.4] [facility] 51647 11/25/2018 ([id number]) OFFICE/OUTPATIENT VISIT EST Diagnosis: Acute suppurative otitis media without spontaneous rupture of ear drum, bilateral[ICD10: H66.003] Fatou ARANGO [facility] CPT-4: 39630 06/13/2018 ([id number]) OFFICE/OUTPATIENT VISIT EST Diagnosis: Other fatigue[ICD10: R53.83] Diagnosis: Anuria and oliguria[ICD10: R34] Diagnosis: Acute gastritis without bleeding[ICD10: K29.00] Fatou ARANGO [facility] CPT-4: 48245 01/04/2018 ([id number]) OFFICE/OUTPATIENT VISIT EST Diagnosis: Acute bronchitis, unspecified[ICD10: J20.9] Fatou ARANGO [facility] CPT-4: 29503 12/31/2017 ([id number]) PREV VISIT EST AGE 18-39 Diagnosis: Encounter for general adult medical examination without abnormal findings[ICD10: Z00.00] Diagnosis: Severe intellectual disabilities[ICD10: F72] Diagnosis: Allergic rhinitis due to pollen[ICD10: J30.1] Diagnosis: Epilepsy, unspecified, intractable, without status epilepticus[ICD10: G40.919] Diagnosis: Gastro-esophageal reflux disease without esophagitis[ICD10: K21.9] Keily Pepenicole LÓPEZKEILY Diamante [employer] [facility] CPT-4: 37336 12/14/2017 ([id number]) OFFICE/OUTPATIENT VISIT EST Diagnosis: Allergic rhinitis due to pollen[ICD10: J30.1] Diagnosis: Epilepsy, unspecified, intractable, without status epilepticus[ICD10: G40.919] Keily Pepenicole LÓPEZKEILY Diamante [employer] [facility] CPT-4: 58789 12/02/2017 ([id number]) OFFICE/OUTPATIENT VISIT EST Diagnosis: Other allergic rhinitis[ICD10: J30.89] Fatou JUDD OSMANY [employer] [facility] CPT-4: 66159 10/12/2017 OFFICE/OUTPATIENT VISIT EST Diagnosis: Acute suppurative otitis media without spontaneous rupture of ear drum, recurrent, left ear[ICD10: H66.005] Diagnosis: Epilepsy, unspecified, intractable, without status epilepticus[ICD10: G40.919] Diagnosis: Hesitancy of micturition[ICD10: R39.11] Fatou ARANGO [employer] [facility] CPT-4: 05971 09/17/2017 OFFICE/OUTPATIENT VISIT EST Diagnosis: Otitis media, unspecified, left ear[ICD10: H66.92] Fatou Bobby [employer] [facility] CPT-4: 91628 08/06/2017 ([id number]) OFFICE/OUTPATIENT VISIT EST Diagnosis: Vertigo of central origin, 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.49] Diagnosis: Dizziness and giddiness[ICD10: R42] Keily NARANJO MoonshadoAlicia [employer] [facility] CPT-4: 47912 04/01/2017 OFFICE/OUTPATIENT VISIT EST Diagnosis: Vomiting, unspecified[ICD10: R11.10] Diagnosis: 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)[ICD10: K56.5] Diagnosis: Personal history of urinary calculi[ICD10: Z87.442] [facility] HobbsSanchez [facility]: 45481 03/01/2017 ([id number]) OFFICE/OUTPATIENT VISIT EST Diagnosis: Allergic rhinitis due to pollen[ICD10: J30.1] Diagnosis: Acute and subacute allergic otitis media (mucoid) (sanguinous) (serous), left ear[ICD10: H65.112] Keily RIOSLINE Diamante [facility] CPT-4: 58074 11/10/2016 ([id number]) OFFICE/OUTPATIENT VISIT EST Diagnosis: 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] Diagnosis: Unspecified ovarian cyst, right side[ICD10: N83.201] Diagnosis: Cyst of kidney, 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] Keily Arango BINTA CERON Diamante [facility] CPT-4: 50998 08/13/2016 ([id number]) OFFICE/OUTPATIENT VISIT EST Diagnosis: Rash and other nonspecific skin eruption[ICD10: R21] Aziza LINARES [facility]: 43201 03/27/2016 ([id number]) OFFICE/OUTPATIENT VISIT EST Diagnosis: Urinary tract infection, site not specified[ICD10: N39.0] Keily Conchita KEILY [facility]am[facility] CPT[facility]: 16876 03/23/2016 ([id number]) OFFICE/OUTPATIENT VISIT EST Diagnosis: Retention of urine, unspecified[ICD10: R33.9] Diagnosis: Dysuria[ICD10: R30.0] Diagnosis: Constipation, unspecified[ICD10: K59.00] Aziza LAWTON [facility]am[facility] CPT-4: 26020 03/19/2016 ([id number]) OFFICE/OUTPATIENT VISIT EST Diagnosis: Acute sinusitis, unspecified[ICD10: J01.90] Keily Pepenicole [facility] CPT-4: 96305 03/02/2016 OFFICE/OUTPATIENT VISIT EST Diagnosis: Other fatigue[ICD10: R53.83] Diagnosis: Retention of urine, unspecified[ICD10: R33.9] Diagnosis: Dysuria[ICD10: R30.0] Diagnosis: Generalized abdominal pain[ICD10: R10.84] 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] Aziza ARANGO [facility] CPT-4: 52560 02/24/2016 ([id number]) OFFICE/OUTPATIENT VISIT EST Diagnosis: Chronic mucoid otitis media, right ear[ICD10: H65.31] Diagnosis: Allergic rhinitis, unspecified[ICD10: J30.9] Diagnosis: 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] Keily ARANGO [facility] CPT-4: 55693 12/16/2015 ([id number]) OFFICE/OUTPATIENT VISIT EST Diagnosis: Allergic rhinitis, unspecified[ICD10: J30.9] Diagnosis: Acute recurrent sinusitis, unspecified[ICD10: J01.91] Keily ARANGO [facility] CPT-4: 08636 11/12/2015 ([id number]) OFFICE/OUTPATIENT VISIT EST Diagnosis: Other seasonal allergic rhinitis[ICD10: J30.2] Diagnosis: Nausea with vomiting, unspecified[ICD10: R11.2] Diagnosis: Epigastric pain[ICD10: R10.13] Aziza RIOSLINE Thor ARANGO [facility] CPT-4: 72273 10/16/2015 OFFICE/OUTPATIENT VISIT EST Diagnosis: Encounter for follow-up examination after completed treatment for conditions other than malignant neoplasm[ICD10: Z09] Diagnosis: Generalized abdominal pain[ICD10: R10.84] Keily ARANGO [facility] CPT-4: 90256 09/23/2015 ([id number]) OFFICE/OUTPATIENT VISIT EST Diagnosis: Otitis media, unspecified, right ear[ICD10: H66.91] Diagnosis: Constipation, unspecified[ICD10: K59.00] Diagnosis: Allergic rhinitis, unspecified[ICD10: J30.9] Aziza RIOSLINE Diamante ARANGO [facility] CPT-4: 17606 09/20/2015 OFFICE/OUTPATIENT VISIT EST Diagnosis: Allergic rhinitis, unspecified[ICD10: J30.9] Diagnosis: Unspecified perforation of tympanic membrane, right ear[ICD10: H72.91] Bibiana ARANGO DO [facility] CPT-4: 36531 09/10/2015 OFFICE/OUTPATIENT VISIT NEW Diagnosis: Epilepsy, unspecified, intractable, without status epilepticus[ICD10: G40.919] Diagnosis: Gastric ulcer, unspecified as acute or chronic, without hemorrhage or perforation[ICD10: K25.9] Diagnosis: Severe intellectual disabilities[ICD10: F72] Keilykatie Arango KEILY ARANGO [facility] CPT-4: 04712 08/21/2015 Plan of Care Planned Activity Notes [...] ICD-10 : J32.9 07/25/2019 Appointment: Fatou Onofre [address] [place], [place] [id number] ACUTE ILLNESS 07/25/2019 Patient Education: cefdinir- [employer] Coupon [id number] [email or web address]/resources/[email or web address] Completed 07/25/2019 Visit Diagnosis Plan: Chronic pancreatitis Discussion: Continue zenpep and recheck CMP with amylase/lipase in 1 month ICD-9 : 577.1 ICD-10 : K86.1 06/12/2019 Appointment: Keily Arango WPtel: [phone] [facility] Annual Well Visit 06/12/2019 Visit Diagnosis Plan: [...] J18.9 05/08/2019 Appointment: Keily Arango WPtel: [phone] [facility] Hospital Follow Up 05/08/2019 Visit Diagnosis [...] ICD-10 : J30.1 05/03/2019 Appointment: Fatou Onofre [address] [place] [address] ACUTE ILLNESS 05/03/2019 Patient Education: amoxicillin- [employer] Coupon [id number] [email or web address]/resources/getResource/61/[email or web address] Completed 05/03/2019 Visit Diagnosis Plan: Irritability and [...] : R45.4 11/25/2018 Appointment: Nataliia Hsieh [address] ACUTE ILLNESS 11/25/2018 Visit Diagnosis Plan: Acute suppurative otitis media without spontaneous rupture of ear drum, bilateral Discussion: cefdinir for 10 days. if wor sening symptoms later this week, call clinic. push fluids and tylenol/ibuprofen prn pain or fever. ICD-9 : 382.00 ICD-10 : H66.003 06/13/2018 Appointment: Fatou Onofre [address] [place] [address] ACUTE ILLNESS 06/13/2018 Visit Diagnosis Plan: Anuria [...] ICD-10 : R53.83 01/04/2018 Appointment: Fatou Onofre [address] [place] [address] ACUTE ILLNESS 01/04/2018 Patient Education: Patient Medication Summary Completed 01/04/2018 Visit Diagnosis Plan: Acute bronchitis, unspecified Di scussion: zithromax prescribed to take as directed. continue with allergy meds including flonase to help dry congestion. call office next week if new or worsening symptoms. ICD-9 : 466.0 ICD-10 : J20.9 12/31/2017 Appointment: Fatou Onofre [address] [place] [address] ACUTE ILLNESS 12/31/2017 Patient Education: Patient Medication Summary Completed 12/31/2017 Visit Diagnosis Plan: Epilepsy, unspecif ied, intractable, without status epilepticus Discussion: Stable on current regimen ICD-9 : 345.91 ICD-10 : G40.919 12/14/2017 Visit Diagnosis Plan: Encounter for [facility] medical examination without abnormal findings Discussion: Had recent lab done Follow Up: 3 months ICD-9 : V70.9 ICD-10 : Z00.00 12/14/2017 Visit Diagnosis Plan: Allergic rhinitis due to pollen Discussion: Continue current meds Change night time protonix to pepcid for total histamine blockade ICD-9 : 477.9 ICD-10 : J30.1 12/14/2017 Appointment: Keily Arango WPtel: [address] [place] [address] CHECK UP 12/14/2017 Patient Education: Patient Medication [...] : J30.1 12/02/2017 Appointment: Keily Arango WPtel: [address] [place] [address] ACUTE ILLNESS 12/02/2017 Patient Education: Patient Medication Summary Completed 12/02/2017 Visit Diagnosis Plan: Other allergic rhinitis Discussi on: symptoms most likely caused from allergies. patient sent to hospital for decadron injection. instructed to restart patient's flonase at home. if new or worsening symptoms, call or rtc. ICD-9 : 477.8 ICD-10 : J30.89 10/12/2017 Appointment: Fatou Onofre [address] [place] [address] ACUTE ILLNESS 10/12/2017 Patient Education: Patient Medication [...] ICD-10 : G40.919 09/17/2017 Appointment: Fatou Onofre [address] [place] [address] ACUTE ILLNESS 09/17/2017 Patient Education: Patient Medication Summary Completed 09/17/2017 Visit Diagnosis Plan: Otitis media, unspecified, left ear Discussion: cefdinir prescribed daily for 10 days. instructed to administer tylenol/ibuprofen for pain or fever. if no improvement, or worsening symptoms, call or rtc. ICD-9 : 380.14 ICD-10 : H66.92 08/06/2017 Appointment: Fatou Onofre [address] [place] [address] ACUTE ILLNESS 08/06/2017 Patient Education: Patient Medication Summary Completed 08/06/2017 Patient Education: Patient Medication Summary Completed 08/02/2017 Patient Education: Patient Medication Summary Completed 04/21/2017 Care Plan: MRI BRAIN STEM W/O DYE LOINC : 04995-6 Pending 04/21/2017 Patient Education: Patient Medication Summary Completed 04/20/2017 Care Plan: MRI BRAIN STEM W/O DYE LOINC : 76869-5 Pending 04/20/2017 Visit Diagnosis Plan: Vertigo of central origin, unspe cified ear Discussion: Continue meclizine at 12.5mg po BID for 2 more weeks then go to 12.5mg daily for 2 weeks then 6.25mg daily for 2 weeks then stop Notify if any symptoms return with weaning process ICD-9 : 386.2 ICD-10 : H81.49 04/01/2017 Appointment: Keily Arango WPtel: [phone] [facility] FOLLOW UP 04/01/2017 Patient Education: Patient Medication Summary Completed 04/01/2017 Patient Education: Patient Medication Summary Completed 03/09/2017 Care Plan: CT HEAD/BRAIN W/O DYE LOINC : 93801-1 Pending 03/09/2017 Visit Plan: It's difficult to [...] medications indicated. 03/01/2017 Appointment: Emely Hdz WPtel: [facility] [address] ACUTE ILLNESS 03/01/2017 Patient Education: Patient Medication Summary Completed 03/01/2017 Patient Education: Patient Medication Summary Completed 12/17/2016 Visit Diagnosis Plan: Allergic rhinitis due to pollen Discussion: Continue zyrtec/singulair ICD-9 : 477.9 ICD-10 : J30.1 11/10/2016 Visit Diagnosis Plan: Acute and subacute allergic otitis media (mucoid) (sanguinous) (serous), left ear Discussion: Zithromax ICD-9 : 381.05 ICD-10 : H65.112 11/10/2016 Appointment: Keily Arango WPtel: [address] [place], [place] [phone] ACUTE ILLNESS 11/10/2016 Patient Education: Patient Medication Summary Completed 11/10/2016 Patient Education: Patient Medication Summary Completed 09/07/2016 Care Plan: URINALYSIS AUTO W/O SCOPE [place] : 00074-6 Pending 09/07/2016 Visit Diagnosis Plan: Unspecified ovarian cyst, right side Discussion: Pain resolved so will only get pelvic US if pain or vomiting return ICD-9 : 620.2 ICD-10 : N83.201 08/13/2016 Visit Diagnosis Plan: Cyst of kidney, acquired Discuss ion: Renal US in 6mos to assess stability ICD-9 : 753.10 ICD-10 : N28.1 08/13/2016 Visit Diagnosis Plan: Calculus of kidney Discussion: Carroll Mann flomax Will observe for now since pain is resolved ICD-9 : 592.0 ICD-10 : N20.0 08/13/2016 Appointment[phone] 08/12 confirmed-sp FOLLOW UP 08/13/2016 Patient Education: Patient Medication Summary Completed 08/13/2016 Patient Education: Patient Medication Summary Completed 05/19/2016 Care Plan: X-RAY EXAM OF FOOT left foot LOINC : 26 095-0 Pending 05/19/2016 Visit Plan: Discussed with Dr Conchita MAGANA C to be drawn Order sent to Will call with results 03/27/2016 Appointment: Aziza Magallanes [address] [place], [place] [phone] ACUTE ILLNESS 03/27/2016 Patient Education: Patient Medication Summary Completed 03/27/2016 Visit Plan: Go for dose of rocephin 1gm IM today and tomorrow then done Diflucan 150mg x1 today Discussed with mom via phone about urology fwup--she will talk with her and let us know 03/23/2016 Appointment: Keily [facility]el[phone] [facility] 03/23 confirmed ~sl FOLLOW UP 03/23/2016 Patient Education: Patient Medication Summary Completed 03/23/2016 Visit Plan: Per Dr Arango, mauro cat h for UA and culture today Ok to have a standing order for further UA needs at for straight cath Rocephin IM today and daily through Wednesday Mom has arranged a family friend that is an BABBITTER to give Wednesday and Sundays injections - rxs for rocephin and lido sent to [facility] cannot order the lido in the qty patient needs) Dr Arango wants patient to be re-evaluated on Wednesday in clinic Referral to Urology for recurrent UTIs and urinary retention - mom wants to research who she wants her sent to and let us know 03/19/2016 Appointment: Aziza Magallanes [address] [place], [place] [id number] ACUTE ILLNESS 03/19/2016 Patient Education: Patient Medication Summary Completed 03/19/2016 Visit Plan: 1 more week of cefdinir 03/02/2016 Appointment: Keily Arango WPtel: [facility] [facility] 03/02 confirmed~sl WORK IN 03/02/2016 Patient Education: [...] seen if worsening 02/24/2016 Appointment: Aziza Magallanes [address] [place] [address] ACUTE ILLNESS 02/24/2016 Patient Education: Patient Medication Summary Completed 02/24/2016 Care Plan: CHEST X-RAY 2VW FRONTAL&LATL LOINC : 05063-8 Pending 02/24/2016 Care Plan: X-RAY EXAM OF ABDOMEN LOINC : 64209-3 Pending 02/24/2016 Visit Plan: Repeat zithromax x1 week Cip rodex to right ear x1 week Add Pepcid q HS x2-4 weeks for total histamine blockade and for extra stomach protection while on zithromax 12/16/2015 Appointment: Keily Arango WPtel: [phone] [facility] US 6/9 lm~sl /10 lm ~sl FOLLOW UP 12/16/2015 Patient Education: Patient Medication Summary Completed 12/16/2015 Patient Education: [facility] - [employer] - Sertraline HCL - 18-64 - Dynamic Portal ID Completed 12/16/2015 Visit Plan: Saline nasal flushes prn. Ty lenol/Motrin prn headache. Notify if persists/symptoms worsens Dexamethasone given 11/12/2015 Appointment: Keily Ar[facility]el[phone] [facility] [facility] 5 lm~sl 11/11 lm~sl 10 confirm-sp [...] visits for Belkys 10/16/2015 Appointment: Aziza Magallanes [address] [place], [place] [phone] ACUTE ILLNESS 10/16/2015 Patient Education: Patient Medication Summary Completed 10/16/2015 Appointment: Aziza Magallanes [address] [place], [place] [address] [place] canceled, feeling better CANCELED 016 Visit Plan: No further abx needed [facility] restart carafate Notify if abdominal pain worsens 09/23/2015 Appointment: Keily Arango [facility]el[phone] [facility] 09/19 confirmed-sp FOLLOW UP 09/23/2015 Patient Education: [...] done in the past. Order sent to [facility] since [facility] does not have in stock. Recheck in [...] for now. 09/20/2015 Appointment: Elpidio Aziza [address] [place] [phone] ACUTE ILLNESS 09/20/2015 Patient Education: Patient Medication Summary Completed 09/20/2015 Visit Plan: Depo Medrol 40mg/ Kenalog 40 mg IM today Resume Ciprodex otic gtts. bid to Rt. ear 09/10/2015 Appointment: Bibiana Garg WPtel: [phone] [place] [phone] 09/08 confirmed-sp ACUTE ILLNESS 09/10/2015 Patient Education: Patient Medication Summary Completed 09/10/2015 Visit Plan: Increase Protonix to 40mg po BID for 1month Continue carafate at q AC dosing for full month then wean off Jevity for 2 more days then advance diet if able Continue current meds 08/21/2015 Appointment: Keily Arango WPtel: [phone] [place] [phone] NEW PATIENT 08/21/2015 Patient Education: Patient Medication [...] arranged a family friend that is an BABBITTER to give Wednesday and Sundays injections - [...] No further abx needed Go back to [facility] for [facility] 3 days and [...] done in the past. Order sent to [facility] since [facility] does not have [...]
--- OUTSIDE RECORDS SUMMARY | 2019-11-10 19:35 | XMS REPORT | CCD ---
Author Author Belkys Arango D.O. Organization KEILY ARANGO DO [facility] Address [address] [place] [address] Phone Care Team Providers Care Detail Technician Name Role Phone Keily Arango D.O., PP Unavailable CCM Unavailable Summary Purpose Interface Exchange Insurance Providers Payer name Policy type / Coverage type Covered green party ID Effective Begin Date Effective End Date [employer] [facility] Medicaid [id number] U nknown Family History Family History data not found Social History Social History Element Codes Description Effective Dates Marital status Unknown Single 08/21/2015 Employment Unknown Currently unemployed Physically handicapped 08/21/[address]: 947557081 Has never smoked or chewed tobacco 08/21/[address]: 713649466 Never drinks alcohol 2015 Allergies, Adverse Reactions, [...] Ciprodex 0.3 %-0.1 % ear drops,suspension RxNorm: 218958 SHAKE LIQUID AND INSTILL 4 DROPS IN AFFECTED EAR(S) TWICE DAILY 09/22/2019 10/15/2019 A ctive diazepam 10 mg tablet RxNorm: 063866 TAKE 1 TABLET BY M OUTH EVERY NIGHT AT BEDTIME NEEDED 09/11/2019 10/10/2019 Active meclizine 12.5 mg tablet RxNorm: 662240 TAKE 1 TABLET B Y MOUTH THREE TIMES DAILY NEEDED 08/31/2019 10/29/2019 Active Ciprodex 0.3 %-0.1 % ear drops,suspension RxNorm: 777289 SHAKE LIQUID AND INSTILL 4 DROPS IN AFFECTED EAR(S) TWICE DAILY 08/31/2019 09/07/2019 I nactive Ciprodex 0.3 %-0.1 % ear drops,suspension RxNorm: 760636 SHAKE LIQUID AND INSTILL 4 DROPS IN AFFECTED EAR(S) TWICE DAILY 08/11/2019 08/18/2019 I nactive meclizine 12.5 mg tablet RxNorm: 790000 TAKE 1 TABLET B Y MOUTH THREE TIMES DAILY NEEDED 08/04/2019 08/30/2019 Inactive cefdinir 250 mg/5 mL oral suspension RxNorm: 591770 12 Milliliter(s) Oral QD though PEG tube 07/25/2019 08/03/2019 Inactive Zenpep 40,000 unit-126,000 unit-168,000 unit capsule,d elayed release RxNorm: 9381546 1 Capsule(s) Oral AC 07/10/2019 11/06/2019 Active famotidine 20 mg tablet RxNorm: 342699 TAKE 1 TABLET BY MOUTH EVERY NIGHT AT BEDTIME 07/09/2019 01/04/2020 Active sertraline 50 mg tablet RxNorm: 677998 TAKE 1 TABLET BY MOUTH EVERY NIGHT AT BEDTIME 07/09/2019 09/06/2019 Inactive Zenpep 40,000 unit-126,000 unit-168,000 unit capsule,d elayed release RxNorm: 7925903 1 Capsule(s) Oral AC 06/12/2019 07/09/2019 Inactive Zenpep 40,000 unit-126,000 unit-168,000 unit capsule,d elayed release RxNorm: 7278561 1 Capsule(s) Oral AC 05/24/2019 05/23/2019 Inactive Zenpep 40,000 unit-126,000 unit-168,000 unit capsule,d elayed release RxNorm: 5186537 1 Capsule(s) Oral AC 05/24/2019 06/11/2019 Inactive Ciprodex 0.3 %-0.1 % ear drops,suspension RxNorm: 807542 DROP(S) 4 DROP(S) OTIC BID 05/22/2019 06/18/2019 Inactive oxcarbazepine 300 mg/5 mL (60 mg/mL) oral suspension RxNorm: 102890 15 Milliliter(s) Oral two times a day 05/08/2019 11/03/2019 Active meclizine 12.5 mg tablet RxNorm: 329786 1 TABLET(S) PO TID NEEDE D 05/05/2019 08/02/2019 Inactive change in quantity Zithromax 200 mg/5 mL oral suspension RxNorm: 622653 12.5 Dilcia liter(s) Oral QD 05/04/2019 05/09/2019 Inactive amoxicillin 400 mg/5 mL oral suspension RxNorm: 597920 10 Milliliter(s) Oral two times a day 05/03/2019 05/13/2019 Inactive Singulair 10 mg tablet RxNorm: 333766 1 TABLET(S) PO QD 03/28/2019 Inactive Macrobid 100 mg capsule RxNorm: 017410 1 Capsule(s) PO BID 03/16/2003/22/2019 Inactive meclizine 12.5 mg tablet RxNorm: 003715 1 Tablet(s) PO TID as neede d 03/10/2019 05/04/2019 Inactive change in quantity Ciprodex 0.3 %-0.1 % ear drops,suspension RxNorm: 847395 DROP(S) 4 DROP(S) OTIC BID 03/08/2019 04/04/2019 Inactive oxcarbazepine 300 mg/5 mL (60 mg/mL) oral suspension RxNorm: 600132 15 Milliliter(s) PO BID 03/07/2019 05/07/2019 Inactive Macrobid 100 mg capsule RxNorm: 940483 1 Capsule(s) PO BID 02/21/2003/01/2019 Inactive Macrobid 100 mg capsule RxNorm: 757420 1 Capsule(s) PO BID 02/21/2002/19/2019 Inactive meclizine 12.5 mg tablet RxNorm: 802889 1 Tablet(s) PO TID as neede d 02/06/2019 03/07/2019 Inactive change in quantity Ciprodex 0.3 %-0.1 % ear drops,suspension RxNorm: 100749 DROP(S) 4 DROP(S) OTIC BID 01/30/2019 02/12/2019 Inactive diazepam 10 mg tablet RxNorm: 497335 1 Tablet(s) PO QHS as needed 0 01/27/2019 09/10/2019 Inactive sertraline 50 mg tablet RxNorm: 707362 1 Tablet(s) PO QHS 12/29/2018 06/26/2019 Inactive famotidine 20 mg tablet RxNorm: 536247 1 Tablet(s) PO QHS 12/29/2018 06/26/2019 Inactive Ciprodex 0.3 %-0.1 % ear drops,suspension RxNorm: 937599 DROP(S) 4 DROP(S) OTIC BID 12/14/2018 12/27/2018 Inactive Generlac 10 gram/15 mL oral solution RxNorm: 574227 15 Milliliter(s) PO TWO TO THREE TIMES DAILY 12/06/2018 06/03/2019 Inactive Protonix 40 mg tablet,delayed release RxNorm: 039866 1 Tablet(s) PO or per feeding tube BID 11/24/2018 05/22/2019 Inactive meclizine 12.5 mg tablet RxNorm: 206490 1 Tablet(s) PO TID as neede d 11/11/2018 02/06/2019 Inactive change in quantity Ciprodex 0.3 %-0.1 % ear drops,suspension RxNorm: 617742 DROP(S) 4 DROP(S) OTIC BID 11/08/2018 11/21/2018 Inactive diazepam 10 mg tablet RxNorm: 236627 1 Tablet(s) PO QHS as needed 0 10/21/2018 11/19/2018 Inactive Generlac 10 gram/15 mL oral solution RxNorm: 873786 Mil liliter(s) 15 MILLILITER(S) PO TWO TO THREE TIMES DAILY 10/07/2018 11/05/2018 Inacti ve Ciprodex 0.3 %-0.1 % ear drops,suspension RxNorm: 955340 DROP(S) DROP(S) 4 DROP(S) OTIC BID 08/26/2018 03/15/2019 Inactive meclizine 12.5 mg tablet RxNorm: 282794 1 TABLET(S) PO TID NEEDE D 07/25/2018 10/22/2018 Inactive change in quantity oxcarbazepine 300 mg/5 mL (60 mg/mL) oral suspension RxNorm: 306147 15 Milliliter(s) PO BID 07/08/2018 07/07/2018 Inactive oxcarbazepine 300 mg/5 mL (60 mg/mL) oral suspension RxNorm: 596475 15 Milliliter(s) PO BID 07/08/2018 01/03/2019 Inactive sertraline 50 mg tablet RxNorm: 071973 1 TABLET(S) PO QHS 07/06/2018 12/28/2018 Inactive Singulair 10 mg tablet RxNorm: 955646 1 TABLET(S) PO QD 06/24/2018 Inactive Ciprodex 0.3 %-0.1 % ear drops,suspension RxNorm: 225953 DROP(S) 4 DROP(S) OTIC BID 06/20/2018 06/19/2018 Inactive Ciprodex 0.3 %-0.1 % ear drops,suspension RxNorm: 181789 Drop(s) DROP(S) 4 DROP(S) OTIC BID 06/20/2018 07/03/2018 Inactive cefdinir 250 mg/5 mL oral suspension RxNorm: 226029 12 Milliliter(s) PO QD though PEG tube 06/13/2018 06/22/2018 Inactive famotidine 20 mg tablet RxNorm: 059147 1 Tablet(s) PO QHS 05/31/2018 11/26/2018 Inactive famotidine 40 mg/5 mL (8 mg/mL) oral suspension RxNorm: 3102 74 2.5 Milliliter(s) PO QHS 04/29/2018 06/12/2018 Inactive meclizine 12.5 mg tablet RxNorm: 699276 1 TABLET(S) PO TID NEEDE D 04/25/2018 07/23/2018 Inactive change in quantity Generlac 10 gram/15 mL oral solution RxNorm: 239738 Mil liliter(s) 15 MILLILITER(S) PO TWO TO THREE TIMES DAILY 04/04/2018 05/03/2018 Inacti ve Ciprodex 0.3 %-0.1 % ear drops,suspension RxNorm: 411486 Drop(s) 4 DROP(S) OTIC BID 04/04/2018 04/17/2018 Inactive diazepam 10 mg tablet RxNorm: 474579 1 Tablet(s) PO QHS as needed 1 05/03/2018 Inactive famotidine 40 mg/5 mL (8 mg/mL) oral suspension RxNorm: 3102 74 2.5 Milliliter(s) PO QHS 04/04/2018 04/28/2018 Inactive Generlac 10 gram/15 mL oral solution RxNorm: 962069 15 MILLILITER(S) PO TWO TO THREE TIMES DAILY 03/24/2018 04/03/2018 Inactive Singulair 10 mg tablet RxNorm: 998734 1 TABLET(S) PO QD 03/18/2018 Inactive Ciprodex 0.3 %-0.1 % ear drops,suspension RxNorm: 415984 Drop(s) 4 DROP(S) OTIC BID 03/08/2018 03/21/2018 Inactive Generlac 10 gram/15 mL oral solution RxNorm: 764668 15 Milliliter(s) PO two to three times daily 03/03/2018 03/23/2018 Inactive meclizine 12.5 mg tablet RxNorm: 873404 1 Tablet(s) PO TID as neede d 02/10/2018 04/10/2018 Inactive change in quantity meclizine 12.5 mg tablet RxNorm: 158897 1 Tablet(s) PO BID as neede d 02/07/2018 02/09/2018 Inactive change in quantity Ciprodex 0.3 %-0.1 % ear drops,suspension RxNorm: 339245 Drop(s) 4 DROP(S) OTIC BID 02/02/2018 03/08/2018 Inactive sertraline 50 mg tablet RxNorm: 482039 1 TABLET(S) PO QHS 01/25/2018 07/05/2018 Inactive Zithromax 200 mg/5 mL oral suspension RxNorm: 839545 12.5 Dilcia liter(s) PO QD 12/31/2017 01/04/2018 Inactive Pepcid 20 mg tablet RxNorm: 399166 TABLET(S) 1 TABLET(S) PO QHS 04/29/2018 Inactive famotidine 40 mg/5 mL (8 mg/mL) oral suspension RxNorm: 3102 74 2.5 Milliliter(s) PO QHS 12/28/2017 12/27/2017 Inactive famotidine 40 mg/5 mL (8 mg/mL) oral suspension RxNorm: 3102 74 2.5 Milliliter(s) PO QHS 12/28/2017 04/03/2018 Inactive Ciprodex 0.3 %-0.1 % ear drops,suspension RxNorm: 399640 Drop(s) 4 DROP(S) OTIC BID 12/27/2017 02/02/2018 Inactive meclizine 12.5 mg tablet RxNorm: 215557 1 Tablet(s) PO BID as neede d 12/23/2017 02/06/2018 Inactive change in quantity Protonix 40 mg tablet,delayed release RxNorm: 259402 1 Tablet(s) PO or per feeding tube BID 12/16/2017 07/13/2018 Inactive oxcarbazepine 300 mg/5 mL (60 mg/mL) oral suspension RxNorm: 367298 15 Milliliter(s) PO BID 12/16/2017 07/08/2018 Inactive meclizine 12.5 mg tablet RxNorm: 216365 1 Tablet(s) PO BID as neede d 12/15/2017 02/07/2018 Inactive change in quantity Pepcid 40 mg/5 mL (8 mg/mL) oral suspension RxNorm: 128336 5 Milliliter(s) PO QHS to replace nighttime pantoprazole dose 12/14/2017 12/27/2017 Inact марина meclizine 12.5 mg tablet RxNorm: 584685 1 Tablet(s) PO BID as neede d 12/13/2017 12/23/2017 Inactive diazepam 10 mg tablet RxNorm: 690902 1 Tablet(s) PO QHS as needed 0 12/02/2017 03/01/2018 Inactive prednisolone 15 mg/5 mL oral solution RxNorm: 823929 5 Milliliter(s) PO BID for 3 days then 5ml daily for 3 days then 2.5ml daily for 3 days 12/02/2017 12/13/2017 Inactive sertraline 50 mg tablet RxNorm: 800238 1 Tablet(s) PO QHS 11/04/2017 01/24/2018 Inactive Ciprodex 0.3 %-0.1 % ear drops,suspension RxNorm: 313071 Drop(s) 4 DROP(S) OTIC BID 10/18/2017 10/31/2017 Inactive Ciprodex 0.3 %-0.1 % ear drops,suspension RxNorm: 488904 Drop(s) 4 DROP(S) OTIC BID 10/18/2017 12/27/2017 Inactive Singulair 10 mg tablet RxNorm: 645899 1 Tablet(s) PO QD 09/30/2017 Inactive diazepam 5 mg/5 mL (1 mg/mL) oral solution RxNorm: 456544 2.5 Milliliter(s) PO QD give additional 5 mg dose if seizure occurs 09/17/2017 No Stop Date A ctive Bactrim DS 800 mg-160 mg tablet RxNorm: 742683 1 Tablet(s) PO BID 0 09/17/2017 09/23/2017 Inactive Ciprodex 0.3 %-0.1 % ear drops,suspension RxNorm: 053709 4 DROP (S) OTIC BID 09/13/2017 10/18/2017 Inactive cefdinir 250 mg/5 mL oral suspension RxNorm: 008772 12 Milliliter(s) PO QD though PEG tube 08/06/2017 08/15/2017 Inactive sertraline 50 mg tablet RxNorm: 531577 1 Tablet(s) PO QHS 08/02/2017 11/04/2017 Inactive Ciprodex 0.3 %-0.1 % ear drops,suspension RxNorm: 071705 4 DROP (S) OTIC BID 07/22/2017 08/11/2017 Inactive Singulair 10 mg tablet RxNorm: 724382 1 Tablet(s) PO QD 06/30/2017 Inactive diazepam 10 mg tablet RxNorm: 992080 TAKE 1 TABLET BY M OUTH EVERY NIGHT AT BEDTIME NEEDED 06/04/2017 07/03/2017 Inactive oxcarbazepine 300 mg/5 mL (60 mg/mL) oral suspension RxNorm: 441469 15 MILLILITER(S) PO BID 05/03/2017 12/16/2017 Inactive sertraline 50 mg tablet RxNorm: 689636 1 Tablet(s) PO QHS 05/03/2017 08/02/2017 Inactive Protonix 40 mg tablet,delayed release RxNorm: 847695 1 Tablet(s) PO or per feeding tube BID 04/26/2017 12/16/2017 Inactive Ciprodex 0.3 %-0.1 % ear drops,suspension RxNorm: 595120 4 DROP (S) OTIC BID 04/26/2017 05/23/2017 Inactive Generlac 10 gram/15 mL oral solution RxNorm: 400913 Mil liliter(s) TAKE 15 ML BY MOUTH TWO-THREE TIMES DAILY 04/08/2017 03/03/2018 Inactive Singulair 10 mg tablet RxNorm: 393341 1 Tablet(s) PO QD 03/03/2017 Inactive diazepam 10 mg tablet RxNorm: 720724 1 Tablet(s) PO QHS as needed 0 02/15/2017 06/04/2017 Inactive Singulair 10 mg tablet RxNorm: 031294 1 Tablet(s) PO QD 12/01/2016 Inactive Diflucan 150 mg tablet RxNorm: 076936 Tablet(s) Give 1 tab PO now and then repeat dose in 5 days 11/10/2016 03/31/2017 Inactive Zithromax 200 mg/5 mL oral suspension RxNorm: 664189 12.5 Dilcia liter(s) PO QD 11/10/2016 11/14/2016 Inactive Singulair 10 mg tablet RxNorm: 859309 TAKE 1 TABLET BY MOUTH ON CE DAILY 11/02/2016 12/01/2016 Inactive diazepam 10 mg tablet RxNorm: 987652 TAKE 1 TABLET BY M OUTH EVERY NIGHT AT BEDTIME NEEDED 10/21/2016 11/19/2016 Inactive sertraline 50 mg tablet RxNorm: 928008 1 Tablet(s) PO QHS 10/12/2016 01/09/2017 Inactive fluconazole 100 mg tablet RxNorm: 396756 1 Tablet(s) PO QD 09/23/19 17 09/24/2016 Inactive fluconazole 100 mg tablet RxNorm: 970728 1 Tablet(s) PO QD 09/23/19 17 09/21/2016 Inactive Bactrim DS 800 mg-160 mg tablet RxNorm: 877569 1 Tablet(s) PO BID 0 09/10/2016 09/09/2016 Inactive Bactrim DS 800 mg-160 mg tablet RxNorm: 242960 1 Tablet(s) PO BID 0 09/10/2016 09/16/2016 Inactive oxcarbazepine 300 mg/5 mL (60 mg/mL) oral suspension RxNorm: 041015 15 Milliliter(s) PO BID 09/07/2016 03/05/2017 Inactive sertraline 50 mg tablet RxNorm: 815258 1 Tablet(s) PO QHS 07/06/2016 10/03/2016 Inactive Pepcid 20 mg tablet RxNorm: 025125 Tablet(s) 1 TABLET(S) PO QHS 08/201603/08/2017 Inactive sertraline 50 mg tablet RxNorm: 645563 1 Tablet(s) PO QHS 06/08/2016 05/03/2017 Inactive Generlac 10 gram/15 mL oral solution RxNorm: 791304 Mil liliter(s) TAKE 15 ML BY MOUTH TWO-THREE TIMES DAILY 06/08/2016 09/08/2016 Inactive Pepcid 20 mg tablet RxNorm: 355115 1 TABLET(S) PO QHS 06/04/201607/2016 Inactive fluconazole 100 mg tablet RxNorm: 107302 1 Tablet(s) QD through PEG tube 05/13/2016 12/01/2017 Inactive Diflucan 150 mg tablet RxNorm: 273033 Give 1 tab PO now and then repeat dose in 5 days 03/19/2016 11/09/2016 Inactive ceftriaxone 1 gram solution for injection RxNorm: 7660675 1 Gram(s) IM QD Wednesday and Wednesday03/19/2016 11/09/2016 Inactive lidocaine 10 mg/mL (1 %) injection solution RxNorm: 4171499 Use as directed to reconstitute Rocephin when needed 03/19/2016 12/13/2017 Inactive Generlac 10 gram/15 mL oral solution RxNorm: 895350 JOE E 15 ML BY MOUTH TWO- THREE TIMES DAILY 03/19/2016 06/07/2016 Inactive oxcarbazepine 300 mg/5 mL oral suspension RxNorm: 198310 15 Milliliter(s) PO BID 03/13/2016 09/07/2016 Inactive Ciprodex 0.3 %-0.1 % ear drops,suspension RxNorm: 782516 4 DROP (S) OTIC BID 03/09/2016 03/15/2016 Inactive cefdinir 250 mg/5 mL oral suspension RxNorm: 145189 11. 75 Milliliter(s) PO QD though PEG tube 03/02/2016 03/08/2016 Inactive cefdinir 250 mg/5 mL oral suspension RxNorm: 990650 11. 75 Milliliter(s) PO QD though PEG tube 02/24/2016 03/01/2016 Inactive cefdinir 250 mg/5 mL oral suspension RxNorm: 353695 11. 75 Milliliter(s) PO QD though PEG tube 02/24/2016 02/23/2016 Inactive Ciprodex 0.3 %-0.1 % ear drops,suspension RxNorm: 903983 4 Drop (s) OTIC BID 02/24/2016 03/01/2016 Inactive Generlac 10 gram/15 mL oral solution RxNorm: 482326 JOE E 15 ML BY MOUTH TWICE DAILY 02/17/2016 03/18/2016 Inactive Generlac 10 gram/15 mL oral solution RxNorm: 145697 15 Millilit er(s) PO BID 01/23/2016 02/16/2016 Inactive Pepcid 20 mg tablet RxNorm: 161385 1 TABLET(S) PO QHS 01/13/201605/07 Inactive Ciprodex 0.3 %-0.1 % ear drops,suspension RxNorm: 494543 4 Drop (s) OTIC BID 12/23/2015 12/29/2015 Inactive sertraline 50 mg tablet RxNorm: 911038 1 Tablet(s) PO QHS 12/16/2015 06/07/2016 Inactive Zithromax 500 mg tablet RxNorm: 508748 1 Tablet(s) PO QD 12/16/2015 0 12/22/2015 Inactive Pepcid 20 mg tablet RxNorm: 815909 1 Tablet(s) PO QHS 12/16/201501/02 Inactive Zithromax 500 mg tablet RxNorm: 888716 1 Tablet(s) PO QD 11/12/2015 0 11/18/2015 Inactive Singulair 10 mg tablet RxNorm: 086428 1 Tablet(s) PO BID 10/16/2015 0 11/11/2015 Inactive diazepam 10 mg tablet RxNorm: 939259 1 Tablet(s) PO QHS 10/07/2015 Inactive diazepam 10 mg tablet RxNorm: 935508 1 Tablet(s) PO QHS 10/07/2015 Inactive fexofenadine 30 mg/5 mL oral suspension RxNorm: 673062 10 Milliliter(s) PO one to two times daily PRN allergies 09/20/2015 12/15/2015 Inactive ceftriaxone 1 gram solution for injection RxNorm: 0991908 1 Gram (s) IM QD 09/20/2015 09/21/2015 Inactive Ciprodex 0.3 %-0.1 % ear drops,suspension RxNorm: 811182 4 Drop (s) OTIC BID 09/20/2015 10/03/2015 Inactive Protonix 40 mg tablet,delayed release RxNorm: 381730 1 Tablet(s) PO or per feeding tube BID 08/21/2015 12/18/2015 Inactive Carafate 100 mg/mL oral suspension RxNorm: 583653 10 Mi lliliter(s) Miscellaneous per feeding tube AC & HS 08/21/2015 09/19/2015 Inactive Zyrtec 10 mg tablet RxNorm: 3427213 1 Tablet(s) PO QD No Start Date Active diazepam 20 mg rectal kit RxNorm: 335877 RTL as needed No Start Date Active Lortab Elixir 10 mg-300 mg/15 mL oral solution RxNorm: 21936 45 8 PO Q6-8H as needed No Start Date Active ondansetron HCl 4 mg/5 mL oral solution RxNorm: 263165 10 Milliliter(s) PO as needed and through tube No Start Date Active sertraline 50 mg tablet RxNorm: 297824 1 Tablet(s) PO QD No Start D ate 12/15/2015 Inactive Brittany 180 mg tablet RxNorm: 693387 1 Tablet(s) PO QD No Start Date 06/12/2018 Inactive Generlac 10 gram/15 mL oral solution RxNorm: 875316 15 Millilit er(s) PO BID No Start Date 01/22/2016 Inactive oxcarbazepine 300 mg/5 mL oral suspension RxNorm: 836772 13.5 Milliliter(s) PO QAM and 15ml in the evening No Start Date 12/15/2015 Inactive Singulair 10 mg tablet RxNorm: 826594 1 Tablet(s) PO QD No Start Da te 11/30/2016 Inactive meclizine 12.5 mg tablet RxNorm: 576825 1 Tablet(s) PO TID as needed for dizziness No Start Date 09/13/2017 Inactive meclizine 12.5 mg tablet RxNorm: 333525 1 Tablet(s) PO BID No Start Date 12/12/2017 Inactive fluconazole 100 mg tablet RxNorm: 314768 1 Tablet(s) QD through PEG tube No Start Date 05/12/2016 Inactive Flomax 0.4 mg capsule RxNorm: 126902 1 Capsule(s) PO QD No Start Da te 06/12/2018 Inactive diazepam 10 mg tablet RxNorm: 504330 1 Tablet(s) PO QHS as needed N o Start Date 02/14/2017 Inactive Generlac 10 gram/15 mL oral solution RxNorm: 287018 15 Milliliter(s) PO two to three times daily No Start Date 03/02/2018 Inactive oxcarbazepine 300 mg/5 mL oral suspension RxNorm: 047527 15 Milliliter(s) PO BID No Start Date 12/15/2017 Inactive Medication Administered No Medication Administered data Immunizations Vaccine Codes Date Status Influenza CVX: 141 04/21/2019 Results No Results data Procedures Procedure Codes Date DEXAMETHASONE SODIUM PHOS CPT-4: J1100 05/03/2019 THER/PROPH/DIAG INJ SC/IM CPT-4: 76314 05/03/2019 CEFTRIAXONE SODIUM INJECTION CPT-4: J0696 03/19/2016 THER/PROPH/DIAG INJ SC/IM CPT-4: 67576 03/19/2016 DEXAMETHASONE SODIUM PHOS CPT-4: J1100 11/12/2015 THER/PROPH/DIAG INJ SC/IM CPT-4: 35770 11/12/2015 CEFTRIAXONE SODIUM INJECTION CPT-4: J0696 09/20/2015 THER/PROPH/DIAG INJ SC/IM CPT-4: 56788 09/20/2015 THER/PROPH/DIAG INJ SC/IM CPT-4: 57280 09/10/2015 METHYLPREDNISOLONE 40 MG INJ CPT-4: J1030 09/10/2015 TRIAMCINOLONE ACET INJ NOS CPT-4: J3301 09/10/2015 Vital Signs Date Vital 07/25/2019 Blood Pressure 1: 116/80 Code: 8480-6 BMI: 23.2 Code: 86722-9 Heart Rate 1: 81 bpm Height: 4'5" Respiratory Rate: 16 bpm SpO2: 100% Tempera ture: 36.8 (C) / 98.2 (F) Weight: 92 lbs 06/12/2019 Blood Pressure 1: 112/74 Code: 8480-6 BMI: 23.2 Code: 85563-4 Heart Rate 1: 102 bpm Height: 4'5" [...] 1: 114/70 Code: 8480-6 BMI: 23.1 Code: 65409-1 Heart Rate 1: 80 bpm Height: 4'6" [...] otalgia 09/10/2015 ~generic 08/21/2015 New Patient----[facility] visit Encounters Encounter Performer Location Codes Date () OFFICE/OUTPATIENT VISIT EST Diagnosis: Allergic rhinitis[ICD10: J30.9] Fatou [facility] CPT-4: 49730 10/05/2019 ([id number]) OFFICE/OUTPATIENT VISIT EST Diagnosis: Sinusitis[ICD10: J32.9] Fatou [facility] CPT-4: 68942 07/25/2019 ([id number]) PREV VISIT EST AGE 18-39 Diagnosis: Encounter for general adult medical examination with abnormal findings[ICD10: Z00.01] Diagnosis: Chronic pancreatitis[ICD10: K86.1] Diagnosis: Cerebral palsy, unspecified[ICD10: G80.9] Keily [facility]ANGO [facility] CPT-4: 05414 06/12/2019 ([id number]) OFFICE/OUTPATIENT VISIT EST Diagnosis: Pneumonia, organism unspecified[ICD10: J18.9] Diagnosis: Breast mass, right[ICD10: N63.10] Keily [facility]ANGO [facility] CPT-4: 30493 05/08/2019 ([id number]) OFFICE/OUTPATIENT VISIT EST Diagnosis: Allergic rhinitis due to pollen[ICD10: J30.1] Diagnosis: Otitis media, unspecified, right ear[ICD10: H66.91] Fatou [facility] CPT-4: 89126 05/03/2019 ([id number]) OFFICE/OUTPATIENT VISIT EST Diagnosis: Irritability and anger[ICD10: R45.4] [facility] 488[facility] 11/25/2018 ([id number]) OFFICE/OUTPATIENT VISIT EST Diagnosis: Acute suppurative otitis media without spontaneous rupture of ear drum, bilateral[ICD10: H66.003] Fatou [facility] CPT-4: 81596 06/13/2018 ([id number]) OFFICE/OUTPATIENT VISIT EST Diagnosis: Other fatigue[ICD10: R53.83] Diagnosis: Anuria and oliguria[ICD10: R34] Diagnosis: Acute gastritis without bleeding[ICD10: K29.00] Fatou [facility] CPT-4: 25978 01/04/2018 ([id number]) OFFICE/OUTPATIENT VISIT EST Diagnosis: Acute bronchitis, unspecified[ICD10: J20.9] Fatou [facility] CPT-4: 63804 12/31/2017 ([id number]) PREV VISIT EST AGE 18-39 Diagnosis: Encounter for general adult medical examination without abnormal findings[ICD10: Z00.00] Diagnosis: Severe intellectual disabilities[ICD10: F72] Diagnosis: Allergic rhinitis due to pollen[ICD10: J30.1] Diagnosis: Epilepsy, unspecified, intractable, without status epilepticus[ICD10: G40.919] Diagnosis: Gastro-esophageal reflux disease without esophagitis[ICD10: K21.9] Keily Pepenicole LÓPEZKEILY [employer] [facility] CPT-4: 06299 12/14/2017 ([id number]) OFFICE/OUTPATIENT VISIT EST Diagnosis: Allergic rhinitis due to pollen[ICD10: J30.1] Diagnosis: Epilepsy, unspecified, intractable, without status epilepticus[ICD10: G40.919] Keily Pepenicole LÓPEZKEILY [employer] [facility] CPT-4: 06729 12/02/2017 ([id number]) OFFICE/OUTPATIENT VISIT EST Diagnosis: Other allergic rhinitis[ICD10: J30.89] Fatou JUDD OSMANY [employer] [facility] CPT-4: 52498 10/12/2017 OFFICE/OUTPATIENT VISIT EST Diagnosis: Acute suppurative otitis media without spontaneous rupture of ear drum, recurrent, left ear[ICD10: H66.005] Diagnosis: Epilepsy, unspecified, intractable, without status epilepticus[ICD10: G40.919] Diagnosis: Hesitancy of micturition[ICD10: R39.11] Fatou ARANGO [employer] [facility] CPT-4: 90875 09/17/2017 OFFICE/OUTPATIENT VISIT EST Diagnosis: Otitis media, unspecified, left ear[ICD10: H66.92] Fatou Bobby [employer] [facility] CPT-4: 78757 08/06/2017 ([id number]) OFFICE/OUTPATIENT VISIT EST Diagnosis: Vertigo of central origin, 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.49] Diagnosis: Dizziness and giddiness[ICD10: R42] Keily NARANJO [employer] [facility] CPT-4: 37815 04/01/2017 OFFICE/OUTPATIENT VISIT EST Diagnosis: Vomiting, unspecified[ICD10: R11.10] Diagnosis: 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)[ICD10: K56.5] Diagnosis: Personal history of urinary calculi[ICD10: Z87.442] Emely HobbsSanchez [facility] CPT-[facility]: 90434 03/01/2017 ([id number]) OFFICE/OUTPATIENT VISIT EST Diagnosis: Allergic rhinitis due to pollen[ICD10: J30.1] Diagnosis: Acute and subacute allergic otitis media (mucoid) (sanguinous) (serous), left ear[ICD10: H65.112] Keily RIOSLINE Diamante [facility] CPT-4: 77776 11/10/2016 ([id number]) OFFICE/OUTPATIENT VISIT EST Diagnosis: 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] Diagnosis: Unspecified ovarian cyst, right side[ICD10: N83.201] Diagnosis: Cyst of kidney, 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] Keily Arango BINTA CERON Diamante [facility] CPT-[facility]: 46512 08/13/2016 ([id number]) OFFICE/OUTPATIENT VISIT EST Diagnosis: Rash and other nonspecific skin eruption[ICD10: R21] Aziza LINARES [facility] CPT[facility]: 15580 03/27/2016 ([id number]) OFFICE/OUTPATIENT VISIT EST Diagnosis: Urinary tract infection, site not specified[ICD10: N39.0] Keily Conchita KEILY [facility] [facility] CPT-4: 80806 03/23/2016 ([id number]) OFFICE/OUTPATIENT VISIT EST Diagnosis: Retention of urine, unspecified[ICD10: R33.9] Diagnosis: Dysuria[ICD10: R30.0] Diagnosis: Constipation, unspecified[ICD10: K59.00] Aziza LAWTON Diamante [facility] CPT-4: 52619 03/19/2016 ([id number]) OFFICE/OUTPATIENT VISIT EST Diagnosis: Acute sinusitis, unspecified[ICD10: J01.90] Keily Pepenicole LINARES [facility] CPT-4: 03861 03/02/2016 OFFICE/OUTPATIENT VISIT EST Diagnosis: Other fatigue[ICD10: R53.83] Diagnosis: Retention of urine, unspecified[ICD10: R33.9] Diagnosis: Dysuria[ICD10: R30.0] Diagnosis: Generalized abdominal pain[ICD10: R10.84] 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] Aziza ARANGO [facility] CPT-4: 14647 02/24/2016 ([id number]) OFFICE/OUTPATIENT VISIT EST Diagnosis: Chronic mucoid otitis media, right ear[ICD10: H65.31] Diagnosis: Allergic rhinitis, unspecified[ICD10: J30.9] Diagnosis: 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] Keily ARANGO [facility] CPT-4: 26266 12/16/2015 ([id number]) OFFICE/OUTPATIENT VISIT EST Diagnosis: Allergic rhinitis, unspecified[ICD10: J30.9] Diagnosis: Acute recurrent sinusitis, unspecified[ICD10: J01.91] Keily ARANGO [facility] CPT-4: 58566 11/12/2015 ([id number]) OFFICE/OUTPATIENT VISIT EST Diagnosis: Other seasonal allergic rhinitis[ICD10: J30.2] Diagnosis: Nausea with vomiting, unspecified[ICD10: R11.2] Diagnosis: Epigastric pain[ICD10: R10.13] Aziza RIOSLINE Thor ARANGO [facility] CPT-4: 49640 10/16/2015 OFFICE/OUTPATIENT VISIT EST Diagnosis: Encounter for follow-up examination after completed treatment for conditions other than malignant neoplasm[ICD10: Z09] Diagnosis: Generalized abdominal pain[ICD10: R10.84] Keily ARANGO [facility] CPT-4: 34988 09/23/2015 ([id number]) OFFICE/OUTPATIENT VISIT EST Diagnosis: Otitis media, unspecified, right ear[ICD10: H66.91] Diagnosis: Constipation, unspecified[ICD10: K59.00] Diagnosis: Allergic rhinitis, unspecified[ICD10: J30.9] Aziza RIOSLINE Diamante ARANGO [facility] CPT-4: 19039 09/20/2015 OFFICE/OUTPATIENT VISIT EST Diagnosis: Allergic rhinitis, unspecified[ICD10: J30.9] Diagnosis: Unspecified perforation of tympanic membrane, right ear[ICD10: H72.91] Bibiana ARANGO DO [employer] CPT-4: 03184 09/10/2015 OFFICE/OUTPATIENT VISIT NEW Diagnosis: Epilepsy, unspecified, intractable, without status epilepticus[ICD10: G40.919] Diagnosis: Gastric ulcer, unspecified as acute or chronic, without hemorrhage or perforation[ICD10: K25.9] Diagnosis: Severe intellectual disabilities[ICD10: F72] Keilykatie Arango KEILY ARANGO [employer] CPT-4: 72864 08/21/2015 Plan of Care Planned Activity Notes [...] 473.9 ICD-10 : J32.9 07/25/2019 Appointment: Fatou nOofre [address] [place], [place] [id number] ACUTE ILLNESS 07/25/2019 Patient Education: cefdinir- [employer] Coupon [id number] [email or web address]/samplemd/resources/getResource/61/[email or web address]-[email or web address] Completed 07/25/2019 Visit Diagnosis Plan: Chronic pancreatitis Discussion: Continue zenpep and recheck CMP with amylase/lipase in 1 month ICD-9 : 577.1 ICD-10 : K86.1 06/12/2019 Appointment: Keily Arango WPtel: [phone] [facility] Annual Well Visit 06/12/2019 Visit Diagnosis Plan: [...] J18.9 05/08/2019 Appointment: Keily Arango WPtel: [phone] [facility] Hospital Follow Up 05/08/2019 Visit [...] ICD-10 : H66.91 05/03/2019 Appointment: Fatou Onofre [address] [place] [address] ACUTE ILLNESS 05/03/2019 Patient Education: amoxicillin- [employer] Coupon [id number] [email or web address]/samplemd/resources/getResource/61/[email or web address] Completed 05/03/2019 Visit Diagnosis Plan: Irritability and [...] : R45.4 11/25/2018 Appointment: Nataliia Hsieh [address] ACUTE ILLNESS 11/25/2018 Visit Diagnosis Plan: Acute suppurative otitis media without spontaneous rupture of ear drum, bilateral Discussion: cefdinir for 10 days. if wor sening symptoms later this week, call clinic. push fluids and tylenol/ibuprofen prn pain or fever. ICD-9 : 382.00 ICD-10 : H66.003 06/13/2018 Appointment: Fatou Onofre [address] [place] [address] ACUTE ILLNESS 06/13/2018 Visit Diagnosis Plan: Anuria [...] ICD-10 : K29.00 01/04/2018 Appointment: Fatou Onofre [address] [place] [address] ACUTE ILLNESS 01/04/2018 Patient Education: Patient Medication Summary Completed 01/04/2018 Visit Diagnosis Plan: Acute bronchitis, unspecified Di scussion: zithromax prescribed to take as directed. continue with allergy meds including flonase to help dry congestion. call office next week if new or worsening symptoms. ICD-9 : 466.0 ICD-10 : J20.9 12/31/2017 Appointment: Fatou Onofre [address] [place] [address] ACUTE ILLNESS 12/31/2017 Patient Education: Patient Medication [...] G40.919 12/14/2017 Visit Diagnosis Plan: Encounter for [facility] adult medical examination without abnormal findings Discussion: Had recent lab done Follow Up: 3 months ICD-9 : V70.9 ICD-10 : Z00.00 12/14/2017 Appointment: Keily Arango WPtel: [address] [place] [address] CHECK UP 12/14/2017 Patient Education: Patient Medication [...] J30.1 12/02/2017 Appointment: Keily Arango WPtel: [address] [place] [address] ACUTE ILLNESS 12/02/2017 Patient Education: Patient Medication Summary Completed 12/02/2017 Visit Diagnosis Plan: Other allergic rhinitis Discussi on: symptoms most likely caused from allergies. patient sent to hospital for decadron injection. instructed to restart patient's flonase at home. if new or worsening symptoms, call or rtc. ICD-9 : 477.8 ICD-10 : J30.89 10/12/2017 Appointment: Fatou Onofre [address] [place] [address] ACUTE ILLNESS 10/12/2017 Patient Education: Patient Medication [...] ICD-10 : G40.919 09/17/2017 Appointment: Fatou Onofre [address] [place] [address] ACUTE ILLNESS 09/17/2017 Patient Education: Patient Medication Summary Completed 09/17/2017 Visit Diagnosis Plan: Otitis media, unspecified, left ear Discussion: cefdinir prescribed daily for 10 days. instructed to administer tylenol/ibuprofen for pain or fever. if no improvement, or worsening symptoms, call or rtc. ICD-9 : 380.14 ICD-10 : H66.92 08/06/2017 Appointment: Fatou Onofre [address] [place] [address] ACUTE ILLNESS 08/06/2017 Patient Education: Patient Medication Summary Completed 08/06/2017 Patient Education: Patient Medication Summary Completed 08/02/2017 Patient Education: Patient Medication Summary Completed 04/21/2017 Care Plan: MRI BRAIN STEM W/O DYE LOINC : 54401-2 Pending 04/21/2017 Patient Education: Patient Medication Summary Completed 04/20/2017 Care Plan: MRI BRAIN STEM W/O DYE LOINC : 83411-8 Pending 04/20/2017 Visit Diagnosis Plan: Vertigo of central origin, unspe cified ear Discussion: Continue meclizine at 12.5mg po BID for 2 more weeks then go to 12.5mg daily for 2 weeks then 6.25mg daily for 2 weeks then stop Notify if any symptoms return with weaning process ICD-9 : 386.2 ICD-10 : H81.49 04/01/2017 Appointment: Keily Arango WPtel: [facility] FOLLOW UP 04/01/2017 Patient Education: Patient Medication Summary Completed 04/01/2017 Patient Education: Patient Medication Summary Completed 03/09/2017 Care Plan: CT HEAD/BRAIN W/O DYE LOINC : 62513-5 Pending 03/09/2017 Visit Plan: It's difficult to [...] medications indicated. 03/01/2017 Appointment: Emely Hdz WPtel: [address] [place] [address] ACUTE ILLNESS 03/01/2017 Patient Education: Patient Medication Summary Completed 03/01/2017 Patient Education: Patient Medication Summary Completed 12/17/2016 Visit Diagnosis Plan: Acute and subacute allergic otitis media (mucoid) (sanguinous) (serous), left ear Discussion: Zithromax ICD-9 : 381.05 ICD-10 : H65.112 11/10/2016 Visit Diagnosis Plan: Allergic rhinitis due to pollen Discussion: Continue zyrtec/singulair ICD-9 : 477.9 ICD-10 : J30.1 11/10/2016 Appointment: Keily Arango WPtel: [address] [place], [place] [phone] ACUTE ILLNESS 11/10/2016 Patient Education: Patient Medication Summary Completed 11/10/2016 Patient Education: Patient Medication Summary Completed 09/07/2016 Care Plan: URINALYSIS [place] W/[place] : 76415-6 Pending 09/07/2016 Visit Diagnosis Plan: Unspecified ovarian [...] N20.0 08/13/2016 Appointment: Keily [facility]Ptel[phone] [facility] 08/12 confirmed-sp FOLLOW UP 08/13/2016 Patient Education: Patient Medication Summary Completed 08/13/2016 Patient Education: Patient Medication Summary Completed 05/19/2016 Care Plan: X-RAY EXAM OF FOOT left foot LOINC : 26 095-0 Pending 05/19/2016 Visit Plan: Discussed with Dr Conchita MAGANA C to be drawn Order sent to Will call with results 03/27/2016 Appointment: Aziza Magallanes [address] [place], [place] [id number] ACUTE ILLNESS 03/27/2016 Patient Education: Patient Medication Summary Completed 03/27/2016 Visit Plan: Go for dose of rocephin 1gm IM today and tomorrow then done Diflucan 150mg x1 today Discussed with mom via phone about urology fwup--she will talk with her and let us know 03/23/2016 Appointment: Keily Arnago WPtel[facility] [phone] [facility] 03/23 confirmed ~sl FOLLOW UP 03/23/2016 Patient Education: Patient Medication Summary Completed 03/23/2016 Visit Plan: Per Dr Arango, mauro cat h for UA and culture today Ok to have a standing order for further UA needs at for straight cath Rocephin IM today and daily through Wednesday Mom has arranged a family friend that is an [employer]LO[employer] C[employer]ING [employer] ASSISTANT to give Wednesday and Sundays injections - rxs for rocephin and lido sent to [facility] cannot order the lido in the qty patient needs) Dr Arango wants patient to be re-evaluated on Wednesday in clinic Referral to Urology for recurrent UTIs and urinary retention - mom wants to research who she wants her sent to and let us know 03/19/2016 Appointment: Aziza Magallanes [address] [place] [id number] ACUTE ILLNESS 03/19/2016 Patient Education: Patient Medication Summary Completed 03/19/2016 Visit Plan: 1 more week of cefdinir 03/02/2016 Appointment: Keily Arango WPtel: [facility] 03/02 confirmed~sl WORK IN 03/02/2016 Patient Education: [...] seen if worsening 02/24/2016 Appointment: Aziza Magallanes [address] [place] [address] ACUTE ILLNESS 02/24/2016 Patient Education: Patient Medication Summary Completed 02/24/2016 Care Plan: CHEST X-RAY 2VW FRONTAL&LATL LOINC : 01812-9 Pending 02/24/2016 Care Plan: X-RAY EXAM OF ABDOMEN LOINC : 73376-2 Pending 02/24/2016 Visit Plan: Repeat zithromax x1 week Cip rodex to right ear x1 week Add Pepcid q HS x2-4 weeks for total histamine blockade and for extra stomach protection while on zithromax 12/16/2015 Appointment: Keily Arango WPtel: [phone] [facility] US 6/9 lm~sl /10 lm ~sl FOLLOW UP 12/16/2015 Patient Education: Patient Medication Summary Completed 12/16/2015 Patient Education: [facility] - [employer] - Sertraline HCL - 18-64 - Dynamic Portal ID Completed 12/16/2015 Visit Plan: Saline nasal flushes prn. Ty lenol/Motrin prn headache. Notify if persists/symptoms worsens Dexamethasone given 11/12/2015 Appointment: Keily Arango WPtel: [phone] [facility] [place] 5 lm~sl 11/11 lm~sl 10 confirm-sp [...] visits for Belkys 10/16/2015 Appointment: Aziza Magallanes [address] [place], [place] [phone] ACUTE ILLNESS 10/16/2015 Patient Education: Patient Medication Summary Completed 10/16/2015 Appointment: Aziza Magallanes [address] [place] [id number] [place] canceled, feeling better CANCELED 016 Visit Plan: No further abx needed [facility] and restart carafate Notify if abdominal pain worsens 09/23/2015 Appointment: Keily Arango WPtel: [phone] [facility] 09/19 confirmed-sp FOLLOW UP 09/23/2015 Patient Education: [...] Order sent to [facility] since [facility] does not have in stock. Recheck in [...] try for now. 09/20/2015 Appointment: Elpidio Aziza [address] [id number] ACUTE ILLNESS 09/20/2015 Patient Education: Patient Medication Summary Completed 09/20/2015 Visit Plan: Depo Medrol 40mg/ Kenalog 40 mg IM today Resume Ciprodex otic gtts. bid to Rt. ear 09/10/2015 Appointment: Bibiana Garg WPtel: [phone] [phone] 09/08 confirmed-sp ACUTE ILLNESS 09/10/2015 Patient Education: Patient Medication Summary Completed 09/10/2015 Visit Plan: Increase Protonix to 40mg po BID for 1month Continue carafate at q AC dosing for full month then wean off Jevity for 2 more days then advance diet if able Continue current meds 08/21/2015 Appointment: Keily Arango WPtel: [phone] [phone] NEW PATIENT 08/21/2015 Patient Education: Patient Medication [...] arranged a family friend that is an F[employer] C[employer]ING [employer] ASSISTANT to give Wednesday and Sundays injections - [...] No further abx needed [facility] and [...] Order sent to [facility] since [facility] does not have in [...]
--- OUTSIDE RECORDS SUMMARY | 2019-11-10 19:36 | XMS REPORT | CCD ---
Author Author Belkys Arango D.O. Organization [facility]ILY ARANGO [facility] Address [address] [place] [address] Phone Care Team Providers Care Energy Administrator Name Role Phone Keily Arango D.O., PP Unavailable CCM Unavailable Summary Purpose Interface Exchange Insurance Providers Payer name Policy type / Coverage type Covered alliance party ID Effective Begin Date Effective End Date [employer] [facility] [place] Medicaid [id number] U nknown Family History Family History data not found Social History Social History Element Codes Description Effective Dates Marital status Unknown Single 08/21/2015 Employment Unknown Currently unemployed Physically handicapped 08/21/[address]: 908302957 Has never smoked or chewed tobacco 08/21/[address]: 271288579 Never drinks alcohol 2015 Allergies, Adverse Reactions, [...] Ciprodex 0.3 %-0.1 % ear drops,suspension RxNorm: 526988 SHAKE LIQUID AND INSTILL 4 DROPS IN AFFECTED EAR(S) TWICE DAILY 09/22/2019 10/15/2019 A ctive diazepam 10 mg tablet RxNorm: 959269 TAKE 1 TABLET BY M OUTH EVERY NIGHT AT BEDTIME NEEDED 09/11/2019 10/10/2019 Active meclizine 12.5 mg tablet RxNorm: 563972 TAKE 1 TABLET B Y MOUTH THREE TIMES DAILY NEEDED 08/31/2019 10/29/2019 Active Ciprodex 0.3 %-0.1 % ear drops,suspension RxNorm: 985081 SHAKE LIQUID AND INSTILL 4 DROPS IN AFFECTED EAR(S) TWICE DAILY 08/31/2019 09/07/2019 I nactive Ciprodex 0.3 %-0.1 % ear drops,suspension RxNorm: 477657 SHAKE LIQUID AND INSTILL 4 DROPS IN AFFECTED EAR(S) TWICE DAILY 08/11/2019 08/18/2019 I nactive meclizine 12.5 mg tablet RxNorm: 044358 TAKE 1 TABLET B Y MOUTH THREE TIMES DAILY NEEDED 08/04/2019 08/30/2019 Inactive cefdinir 250 mg/5 mL oral suspension RxNorm: 247335 12 Milliliter(s) Oral QD though PEG tube 07/25/2019 08/03/2019 Inactive Zenpep 40,000 unit-126,000 unit-168,000 unit capsule,d elayed release RxNorm: 6001541 1 Capsule(s) Oral AC 07/10/2019 11/06/2019 Active famotidine 20 mg tablet RxNorm: 150009 TAKE 1 TABLET BY MOUTH EVERY NIGHT AT BEDTIME 07/09/2019 01/04/2020 Active sertraline 50 mg tablet RxNorm: 657874 TAKE 1 TABLET BY MOUTH EVERY NIGHT AT BEDTIME 07/09/2019 09/06/2019 Inactive Zenpep 40,000 unit-126,000 unit-168,000 unit capsule,d elayed release RxNorm: 2490149 1 Capsule(s) Oral AC 06/12/2019 07/09/2019 Inactive Zenpep 40,000 unit-126,000 unit-168,000 unit capsule,d elayed release RxNorm: 2827130 1 Capsule(s) Oral AC 05/24/2019 05/23/2019 Inactive Zenpep 40,000 unit-126,000 unit-168,000 unit capsule,d elayed release RxNorm: 1062873 1 Capsule(s) Oral AC 05/24/2019 06/11/2019 Inactive Ciprodex 0.3 %-0.1 % ear drops,suspension RxNorm: 425250 DROP(S) 4 DROP(S) OTIC BID 05/22/2019 06/18/2019 Inactive oxcarbazepine 300 mg/5 mL (60 mg/mL) oral suspension RxNorm: 542560 15 Milliliter(s) Oral two times a day 05/08/2019 11/03/2019 Active meclizine 12.5 mg tablet RxNorm: 158770 1 TABLET(S) PO TID NEEDE D 05/05/2019 08/02/2019 Inactive change in quantity Zithromax 200 mg/5 mL oral suspension RxNorm: 383123 12.5 Dilcia liter(s) Oral QD 05/04/2019 05/09/2019 Inactive amoxicillin 400 mg/5 mL oral suspension RxNorm: 732287 10 Milliliter(s) Oral two times a day 05/03/2019 05/13/2019 Inactive Singulair 10 mg tablet RxNorm: 500955 1 TABLET(S) PO QD 03/28/2019 Inactive Macrobid 100 mg capsule RxNorm: 542608 1 Capsule(s) PO BID 03/16/2003/22/2019 Inactive meclizine 12.5 mg tablet RxNorm: 348215 1 Tablet(s) PO TID as neede d 03/10/2019 05/04/2019 Inactive change in quantity Ciprodex 0.3 %-0.1 % ear drops,suspension RxNorm: 998925 DROP(S) 4 DROP(S) OTIC BID 03/08/2019 04/04/2019 Inactive oxcarbazepine 300 mg/5 mL (60 mg/mL) oral suspension RxNorm: 071658 15 Milliliter(s) PO BID 03/07/2019 05/07/2019 Inactive Macrobid 100 mg capsule RxNorm: 861633 1 Capsule(s) PO BID 02/21/2003/01/2019 Inactive Macrobid 100 mg capsule RxNorm: 850470 1 Capsule(s) PO BID 02/21/2002/19/2019 Inactive meclizine 12.5 mg tablet RxNorm: 325388 1 Tablet(s) PO TID as neede d 02/06/2019 03/07/2019 Inactive change in quantity Ciprodex 0.3 %-0.1 % ear drops,suspension RxNorm: 143351 DROP(S) 4 DROP(S) OTIC BID 01/30/2019 02/12/2019 Inactive diazepam 10 mg tablet RxNorm: 971421 1 Tablet(s) PO QHS as needed 0 01/27/2019 09/10/2019 Inactive sertraline 50 mg tablet RxNorm: 556232 1 Tablet(s) PO QHS 12/29/2018 06/26/2019 Inactive famotidine 20 mg tablet RxNorm: 734112 1 Tablet(s) PO QHS 12/29/2018 06/26/2019 Inactive Ciprodex 0.3 %-0.1 % ear drops,suspension RxNorm: 815216 DROP(S) 4 DROP(S) OTIC BID 12/14/2018 12/27/2018 Inactive Generlac 10 gram/15 mL oral solution RxNorm: 291874 15 Milliliter(s) PO TWO TO THREE TIMES DAILY 12/06/2018 06/03/2019 Inactive Protonix 40 mg tablet,delayed release RxNorm: 298923 1 Tablet(s) PO or per feeding tube BID 11/24/2018 05/22/2019 Inactive meclizine 12.5 mg tablet RxNorm: 148973 1 Tablet(s) PO TID as neede d 11/11/2018 02/06/2019 Inactive change in quantity Ciprodex 0.3 %-0.1 % ear drops,suspension RxNorm: 879568 DROP(S) 4 DROP(S) OTIC BID 11/08/2018 11/21/2018 Inactive diazepam 10 mg tablet RxNorm: 497144 1 Tablet(s) PO QHS as needed 0 10/21/2018 11/19/2018 Inactive Generlac 10 gram/15 mL oral solution RxNorm: 668970 Mil liliter(s) 15 MILLILITER(S) PO TWO TO THREE TIMES DAILY 10/07/2018 11/05/2018 Inacti ve Ciprodex 0.3 %-0.1 % ear drops,suspension RxNorm: 442424 DROP(S) DROP(S) 4 DROP(S) OTIC BID 08/26/2018 03/15/2019 Inactive meclizine 12.5 mg tablet RxNorm: 581613 1 TABLET(S) PO TID NEEDE D 07/25/2018 10/22/2018 Inactive change in quantity oxcarbazepine 300 mg/5 mL (60 mg/mL) oral suspension RxNorm: 867126 15 Milliliter(s) PO BID 07/08/2018 07/07/2018 Inactive oxcarbazepine 300 mg/5 mL (60 mg/mL) oral suspension RxNorm: 237001 15 Milliliter(s) PO BID 07/08/2018 01/03/2019 Inactive sertraline 50 mg tablet RxNorm: 140077 1 TABLET(S) PO QHS 07/06/2018 12/28/2018 Inactive Singulair 10 mg tablet RxNorm: 322386 1 TABLET(S) PO QD 06/24/2018 Inactive Ciprodex 0.3 %-0.1 % ear drops,suspension RxNorm: 763566 DROP(S) 4 DROP(S) OTIC BID 06/20/2018 06/19/2018 Inactive Ciprodex 0.3 %-0.1 % ear drops,suspension RxNorm: 227688 Drop(s) DROP(S) 4 DROP(S) OTIC BID 06/20/2018 07/03/2018 Inactive cefdinir 250 mg/5 mL oral suspension RxNorm: 940092 12 Milliliter(s) PO QD though PEG tube 06/13/2018 06/22/2018 Inactive famotidine 20 mg tablet RxNorm: 230843 1 Tablet(s) PO QHS 05/31/2018 11/26/2018 Inactive famotidine 40 mg/5 mL (8 mg/mL) oral suspension RxNorm: 3102 74 2.5 Milliliter(s) PO QHS 04/29/2018 06/12/2018 Inactive meclizine 12.5 mg tablet RxNorm: 151985 1 TABLET(S) PO TID NEEDE D 04/25/2018 07/23/2018 Inactive change in quantity Generlac 10 gram/15 mL oral solution RxNorm: 100297 Mil liliter(s) 15 MILLILITER(S) PO TWO TO THREE TIMES DAILY 04/04/2018 05/03/2018 Inacti ve Ciprodex 0.3 %-0.1 % ear drops,suspension RxNorm: 717712 Drop(s) 4 DROP(S) OTIC BID 04/04/2018 04/17/2018 Inactive diazepam 10 mg tablet RxNorm: 886237 1 Tablet(s) PO QHS as needed 1 05/03/2018 Inactive famotidine 40 mg/5 mL (8 mg/mL) oral suspension RxNorm: 3102 74 2.5 Milliliter(s) PO QHS 04/04/2018 04/28/2018 Inactive Generlac 10 gram/15 mL oral solution RxNorm: 532516 15 MILLILITER(S) PO TWO TO THREE TIMES DAILY 03/24/2018 04/03/2018 Inactive Singulair 10 mg tablet RxNorm: 358547 1 TABLET(S) PO QD 03/18/2018 Inactive Ciprodex 0.3 %-0.1 % ear drops,suspension RxNorm: 686781 Drop(s) 4 DROP(S) OTIC BID 03/08/2018 03/21/2018 Inactive Generlac 10 gram/15 mL oral solution RxNorm: 871555 15 Milliliter(s) PO two to three times daily 03/03/2018 03/23/2018 Inactive meclizine 12.5 mg tablet RxNorm: 852460 1 Tablet(s) PO TID as neede d 02/10/2018 04/10/2018 Inactive change in quantity meclizine 12.5 mg tablet RxNorm: 665099 1 Tablet(s) PO BID as neede d 02/07/2018 02/09/2018 Inactive change in quantity Ciprodex 0.3 %-0.1 % ear drops,suspension RxNorm: 648944 Drop(s) 4 DROP(S) OTIC BID 02/02/2018 03/08/2018 Inactive sertraline 50 mg tablet RxNorm: 319887 1 TABLET(S) PO QHS 01/25/2018 07/05/2018 Inactive Zithromax 200 mg/5 mL oral suspension RxNorm: 007670 12.5 Dlicia liter(s) PO QD 12/31/2017 01/04/2018 Inactive Pepcid 20 mg tablet RxNorm: 540262 TABLET(S) 1 TABLET(S) PO QHS 04/29/2018 Inactive famotidine 40 mg/5 mL (8 mg/mL) oral suspension RxNorm: 3102 74 2.5 Milliliter(s) PO QHS 12/28/2017 12/27/2017 Inactive famotidine 40 mg/5 mL (8 mg/mL) oral suspension RxNorm: 3102 74 2.5 Milliliter(s) PO QHS 12/28/2017 04/03/2018 Inactive Ciprodex 0.3 %-0.1 % ear drops,suspension RxNorm: 188107 Drop(s) 4 DROP(S) OTIC BID 12/27/2017 02/02/2018 Inactive meclizine 12.5 mg tablet RxNorm: 303774 1 Tablet(s) PO BID as neede d 12/23/2017 02/06/2018 Inactive change in quantity Protonix 40 mg tablet,delayed release RxNorm: 347776 1 Tablet(s) PO or per feeding tube BID 12/16/2017 07/13/2018 Inactive oxcarbazepine 300 mg/5 mL (60 mg/mL) oral suspension RxNorm: 473758 15 Milliliter(s) PO BID 12/16/2017 07/08/2018 Inactive meclizine 12.5 mg tablet RxNorm: 499676 1 Tablet(s) PO BID as neede d 12/15/2017 02/07/2018 Inactive change in quantity Pepcid 40 mg/5 mL (8 mg/mL) oral suspension RxNorm: 272959 5 Milliliter(s) PO QHS to replace nighttime pantoprazole dose 12/14/2017 12/27/2017 Inact марина meclizine 12.5 mg tablet RxNorm: 048069 1 Tablet(s) PO BID as neede d 12/13/2017 12/23/2017 Inactive diazepam 10 mg tablet RxNorm: 417484 1 Tablet(s) PO QHS as needed 0 12/02/2017 03/01/2018 Inactive prednisolone 15 mg/5 mL oral solution RxNorm: 052029 5 Milliliter(s) PO BID for 3 days then 5ml daily for 3 days then 2.5ml daily for 3 days 12/02/2017 12/13/2017 Inactive sertraline 50 mg tablet RxNorm: 976001 1 Tablet(s) PO QHS 11/04/2017 01/24/2018 Inactive Ciprodex 0.3 %-0.1 % ear drops,suspension RxNorm: 559163 Drop(s) 4 DROP(S) OTIC BID 10/18/2017 10/31/2017 Inactive Ciprodex 0.3 %-0.1 % ear drops,suspension RxNorm: 560174 Drop(s) 4 DROP(S) OTIC BID 10/18/2017 12/27/2017 Inactive Singulair 10 mg tablet RxNorm: 979866 1 Tablet(s) PO QD 09/30/2017 Inactive diazepam 5 mg/5 mL (1 mg/mL) oral solution RxNorm: 017457 2.5 Milliliter(s) PO QD give additional 5 mg dose if seizure occurs 09/17/2017 No Stop Date A ctive Bactrim DS 800 mg-160 mg tablet RxNorm: 401678 1 Tablet(s) PO BID 0 09/17/2017 09/23/2017 Inactive Ciprodex 0.3 %-0.1 % ear drops,suspension RxNorm: 374093 4 DROP (S) OTIC BID 09/13/2017 10/18/2017 Inactive cefdinir 250 mg/5 mL oral suspension RxNorm: 699186 12 Milliliter(s) PO QD though PEG tube 08/06/2017 08/15/2017 Inactive sertraline 50 mg tablet RxNorm: 429696 1 Tablet(s) PO QHS 08/02/2017 11/04/2017 Inactive Ciprodex 0.3 %-0.1 % ear drops,suspension RxNorm: 621856 4 DROP (S) OTIC BID 07/22/2017 08/11/2017 Inactive Singulair 10 mg tablet RxNorm: 667373 1 Tablet(s) PO QD 06/30/2017 Inactive diazepam 10 mg tablet RxNorm: 870647 TAKE 1 TABLET BY M OUTH EVERY NIGHT AT BEDTIME NEEDED 06/04/2017 07/03/2017 Inactive oxcarbazepine 300 mg/5 mL (60 mg/mL) oral suspension RxNorm: 613245 15 MILLILITER(S) PO BID 05/03/2017 12/16/2017 Inactive sertraline 50 mg tablet RxNorm: 465339 1 Tablet(s) PO QHS 05/03/2017 08/02/2017 Inactive Protonix 40 mg tablet,delayed release RxNorm: 467189 1 Tablet(s) PO or per feeding tube BID 04/26/2017 12/16/2017 Inactive Ciprodex 0.3 %-0.1 % ear drops,suspension RxNorm: 463220 4 DROP (S) OTIC BID 04/26/2017 05/23/2017 Inactive Generlac 10 gram/15 mL oral solution RxNorm: 621111 Mil liliter(s) TAKE 15 ML BY MOUTH TWO-THREE TIMES DAILY 04/08/2017 03/03/2018 Inactive Singulair 10 mg tablet RxNorm: 463936 1 Tablet(s) PO QD 03/03/2017 Inactive diazepam 10 mg tablet RxNorm: 628590 1 Tablet(s) PO QHS as needed 0 02/15/2017 06/04/2017 Inactive Singulair 10 mg tablet RxNorm: 931352 1 Tablet(s) PO QD 12/01/2016 Inactive Diflucan 150 mg tablet RxNorm: 193868 Tablet(s) Give 1 tab PO now and then repeat dose in 5 days 11/10/2016 03/31/2017 Inactive Zithromax 200 mg/5 mL oral suspension RxNorm: 127127 12.5 Dilcia liter(s) PO QD 11/10/2016 11/14/2016 Inactive Singulair 10 mg tablet RxNorm: 720769 TAKE 1 TABLET BY MOUTH ON CE DAILY 11/02/2016 12/01/2016 Inactive diazepam 10 mg tablet RxNorm: 981292 TAKE 1 TABLET BY M OUTH EVERY NIGHT AT BEDTIME NEEDED 10/21/2016 11/19/2016 Inactive sertraline 50 mg tablet RxNorm: 031298 1 Tablet(s) PO QHS 10/12/2016 01/09/2017 Inactive fluconazole 100 mg tablet RxNorm: 770873 1 Tablet(s) PO QD 09/23/19 17 09/24/2016 Inactive fluconazole 100 mg tablet RxNorm: 864366 1 Tablet(s) PO QD 09/23/19 17 09/21/2016 Inactive Bactrim DS 800 mg-160 mg tablet RxNorm: 494133 1 Tablet(s) PO BID 0 09/10/2016 09/09/2016 Inactive Bactrim DS 800 mg-160 mg tablet RxNorm: 513076 1 Tablet(s) PO BID 0 09/10/2016 09/16/2016 Inactive oxcarbazepine 300 mg/5 mL (60 mg/mL) oral suspension RxNorm: 163906 15 Milliliter(s) PO BID 09/07/2016 03/05/2017 Inactive sertraline 50 mg tablet RxNorm: 565889 1 Tablet(s) PO QHS 07/06/2016 10/03/2016 Inactive Pepcid 20 mg tablet RxNorm: 669867 Tablet(s) 1 TABLET(S) PO QHS 08/201603/08/2017 Inactive sertraline 50 mg tablet RxNorm: 317553 1 Tablet(s) PO QHS 06/08/2016 05/03/2017 Inactive Generlac 10 gram/15 mL oral solution RxNorm: 434347 Mil liliter(s) TAKE 15 ML BY MOUTH TWO-THREE TIMES DAILY 06/08/2016 09/08/2016 Inactive Pepcid 20 mg tablet RxNorm: 597510 1 TABLET(S) PO QHS 06/04/201607/2016 Inactive fluconazole 100 mg tablet RxNorm: 547666 1 Tablet(s) QD through PEG tube 05/13/2016 12/01/2017 Inactive Diflucan 150 mg tablet RxNorm: 465585 Give 1 tab PO now and then repeat dose in 5 days 03/19/2016 11/09/2016 Inactive ceftriaxone 1 gram solution for injection RxNorm: 9322393 1 Gram(s) IM QD Wednesday and Wednesday03/19/2016 11/09/2016 Inactive lidocaine 10 mg/mL (1 %) injection solution RxNorm: 7909976 Use as directed to reconstitute Rocephin when needed 03/19/2016 12/13/2017 Inactive Generlac 10 gram/15 mL oral solution RxNorm: 543026 JOE E 15 ML BY MOUTH TWO- THREE TIMES DAILY 03/19/2016 06/07/2016 Inactive oxcarbazepine 300 mg/5 mL oral suspension RxNorm: 559425 15 Milliliter(s) PO BID 03/13/2016 09/07/2016 Inactive Ciprodex 0.3 %-0.1 % ear drops,suspension RxNorm: 942760 4 DROP (S) OTIC BID 03/09/2016 03/15/2016 Inactive cefdinir 250 mg/5 mL oral suspension RxNorm: 221117 11. 75 Milliliter(s) PO QD though PEG tube 03/02/2016 03/08/2016 Inactive cefdinir 250 mg/5 mL oral suspension RxNorm: 789621 11. 75 Milliliter(s) PO QD though PEG tube 02/24/2016 03/01/2016 Inactive cefdinir 250 mg/5 mL oral suspension RxNorm: 078361 11. 75 Milliliter(s) PO QD though PEG tube 02/24/2016 02/23/2016 Inactive Ciprodex 0.3 %-0.1 % ear drops,suspension RxNorm: 378239 4 Drop (s) OTIC BID 02/24/2016 03/01/2016 Inactive Generlac 10 gram/15 mL oral solution RxNorm: 250128 JOE E 15 ML BY MOUTH TWICE DAILY 02/17/2016 03/18/2016 Inactive Generlac 10 gram/15 mL oral solution RxNorm: 893113 15 Millilit er(s) PO BID 01/23/2016 02/16/2016 Inactive Pepcid 20 mg tablet RxNorm: 797193 1 TABLET(S) PO QHS 01/13/201605/07 Inactive Ciprodex 0.3 %-0.1 % ear drops,suspension RxNorm: 411102 4 Drop (s) OTIC BID 12/23/2015 12/29/2015 Inactive sertraline 50 mg tablet RxNorm: 829018 1 Tablet(s) PO QHS 12/16/2015 06/07/2016 Inactive Zithromax 500 mg tablet RxNorm: 168936 1 Tablet(s) PO QD 12/16/2015 0 12/22/2015 Inactive Pepcid 20 mg tablet RxNorm: 060377 1 Tablet(s) PO QHS 12/16/201501/02 Inactive Zithromax 500 mg tablet RxNorm: 399533 1 Tablet(s) PO QD 11/12/2015 0 11/18/2015 Inactive Singulair 10 mg tablet RxNorm: 492688 1 Tablet(s) PO BID 10/16/2015 0 11/11/2015 Inactive diazepam 10 mg tablet RxNorm: 728058 1 Tablet(s) PO QHS 10/07/2015 Inactive diazepam 10 mg tablet RxNorm: 069422 1 Tablet(s) PO QHS 10/07/2015 Inactive fexofenadine 30 mg/5 mL oral suspension RxNorm: 873039 10 Milliliter(s) PO one to two times daily PRN allergies 09/20/2015 12/15/2015 Inactive ceftriaxone 1 gram solution for injection RxNorm: 1643209 1 Gram (s) IM QD 09/20/2015 09/21/2015 Inactive Ciprodex 0.3 %-0.1 % ear drops,suspension RxNorm: 995331 4 Drop (s) OTIC BID 09/20/2015 10/03/2015 Inactive Protonix 40 mg tablet,delayed release RxNorm: 841529 1 Tablet(s) PO or per feeding tube BID 08/21/2015 12/18/2015 Inactive Carafate 100 mg/mL oral suspension RxNorm: 334478 10 Mi lliliter(s) Miscellaneous per feeding tube AC & HS 08/21/2015 09/19/2015 Inactive Zyrtec 10 mg tablet RxNorm: 9574670 1 Tablet(s) PO QD No Start Date Active diazepam 20 mg rectal kit RxNorm: 613322 RTL as needed No Start Date Active Lortab Elixir 10 mg-300 mg/15 mL oral solution RxNorm: 54967 45 8 PO Q6-8H as needed No Start Date Active ondansetron HCl 4 mg/5 mL oral solution RxNorm: 091841 10 Milliliter(s) PO as needed and through tube No Start Date Active sertraline 50 mg tablet RxNorm: 835205 1 Tablet(s) PO QD No Start D ate 12/15/2015 Inactive Brittany 180 mg tablet RxNorm: 495031 1 Tablet(s) PO QD No Start Date 06/12/2018 Inactive Generlac 10 gram/15 mL oral solution RxNorm: 465539 15 Millilit er(s) PO BID No Start Date 01/22/2016 Inactive oxcarbazepine 300 mg/5 mL oral suspension RxNorm: 469336 13.5 Milliliter(s) PO QAM and 15ml in the evening No Start Date 12/15/2015 Inactive Singulair 10 mg tablet RxNorm: 075155 1 Tablet(s) PO QD No Start Da te 11/30/2016 Inactive meclizine 12.5 mg tablet RxNorm: 808793 1 Tablet(s) PO TID as needed for dizziness No Start Date 09/13/2017 Inactive meclizine 12.5 mg tablet RxNorm: 059390 1 Tablet(s) PO BID No Start Date 12/12/2017 Inactive fluconazole 100 mg tablet RxNorm: 811346 1 Tablet(s) QD through PEG tube No Start Date 05/12/2016 Inactive Flomax 0.4 mg capsule RxNorm: 349014 1 Capsule(s) PO QD No Start Da te 06/12/2018 Inactive diazepam 10 mg tablet RxNorm: 676053 1 Tablet(s) PO QHS as needed N o Start Date 02/14/2017 Inactive Generlac 10 gram/15 mL oral solution RxNorm: 045270 15 Milliliter(s) PO two to three times daily No Start Date 03/02/2018 Inactive oxcarbazepine 300 mg/5 mL oral suspension RxNorm: 005746 15 Milliliter(s) PO BID No Start Date 12/15/2017 Inactive Medication Administered No Medication Administered data Immunizations Vaccine Codes Date Status Influenza CVX: 141 04/21/2019 Results No Results data Procedures Procedure Codes Date DEXAMETHASONE SODIUM PHOS CPT-4: J1100 05/03/2019 THER/PROPH/DIAG INJ SC/IM CPT-4: 29682 05/03/2019 CEFTRIAXONE SODIUM INJECTION CPT-4: J0696 03/19/2016 THER/PROPH/DIAG INJ SC/IM CPT-4: 90083 03/19/2016 DEXAMETHASONE SODIUM PHOS CPT-4: J1100 11/12/2015 THER/PROPH/DIAG INJ SC/IM CPT-4: 48611 11/12/2015 CEFTRIAXONE SODIUM INJECTION CPT-4: J0696 09/20/2015 THER/PROPH/DIAG INJ SC/IM CPT-4: 61977 09/20/2015 THER/PROPH/DIAG INJ SC/IM CPT-4: 84073 09/10/2015 METHYLPREDNISOLONE 40 MG INJ CPT-4: J1030 09/10/2015 TRIAMCINOLONE ACET INJ NOS CPT-4: J3301 09/10/2015 Vital Signs Date Vital 07/25/2019 Blood Pressure 1: 116/80 Code: 8480-6 BMI: 23.2 Code: 55265-8 Heart Rate 1: 81 bpm Height: 4'5" Respiratory Rate: 16 bpm SpO2: 100% Tempera ture: 36.8 (C) / 98.2 (F) Weight: 92 lbs 06/12/2019 Blood Pressure 1: 112/74 Code: 8480-6 BMI: 23.2 Code: 43262-6 Heart Rate 1: 102 bpm Height: 4'5" [...] 1: 114/70 Code: 8480-6 BMI: 23.1 Code: 60910-1 Heart Rate 1: 80 bpm Height: 4'6" [...] 09/20/2015 otalgia 09/10/2015 ~generic 08/21/2015 New Patient----[facility] visit Encounters Encounter Performer Location Codes Date () OFFICE/OUTPATIENT VISIT EST Diagnosis: Allergic rhinitis[ICD10: J30.9] Fatou Onofre [facility] CPT-4: 19058 10/05/2019 ([id number]) OFFICE/OUTPATIENT VISIT EST Diagnosis: Sinusitis[ICD10: J32.9] Fatou GILBERT [facility] CPT-4: 49709 07/25/2019 ([id number]) PREV VISIT EST AGE 18-39 Diagnosis: Encounter for general adult medical examination with abnormal findings[ICD10: Z00.01] Diagnosis: Chronic pancreatitis[ICD10: K86.1] Diagnosis: Cerebral palsy, unspecified[ICD10: G80.9] Keily ARANGO [facility] CPT-4: 62476 06/12/2019 ([id number]) OFFICE/OUTPATIENT VISIT EST Diagnosis: Pneumonia, organism unspecified[ICD10: J18.9] Diagnosis: Breast mass, right[ICD10: N63.10] Keily ARANGO [facility] CPT-4: 50593 05/08/2019 ([id number]) OFFICE/OUTPATIENT VISIT EST Diagnosis: Allergic rhinitis due to pollen[ICD10: J30.1] Diagnosis: Otitis media, unspecified, right ear[ICD10: H66.91] Fatou ARANGO [facility] CPT-4: 20708 05/03/2019 ([id number]) OFFICE/OUTPATIENT VISIT EST Diagnosis: Irritability and anger[ICD10: R45.4] [facility]: 54748 11/25/2018 ([id number]) OFFICE/OUTPATIENT VISIT EST Diagnosis: Acute suppurative otitis media without spontaneous rupture of ear drum, bilateral[ICD10: H66.003] Fatou ARANGO [facility] CPT-4: 73069 06/13/2018 ([id number]) OFFICE/OUTPATIENT VISIT EST Diagnosis: Other fatigue[ICD10: R53.83] Diagnosis: Anuria and oliguria[ICD10: R34] Diagnosis: Acute gastritis without bleeding[ICD10: K29.00] Fatou ARANGO [facility] CPT-4: 24607 01/04/2018 ([id number]) OFFICE/OUTPATIENT VISIT EST Diagnosis: Acute bronchitis, unspecified[ICD10: J20.9] Fatou ARANGO [facility] CPT-4: 72440 12/31/2017 ([id number]) PREV VISIT EST AGE 18-39 Diagnosis: Encounter for general adult medical examination without abnormal findings[ICD10: Z00.00] Diagnosis: Severe intellectual disabilities[ICD10: F72] Diagnosis: Allergic rhinitis due to pollen[ICD10: J30.1] Diagnosis: Epilepsy, unspecified, intractable, without status epilepticus[ICD10: G40.919] Diagnosis: Gastro-esophageal reflux disease without esophagitis[ICD10: K21.9] Keily Pepenicole LÓPEZKEILY Diamante [employer] [facility] CPT-4: 78714 12/14/2017 ([id number]) OFFICE/OUTPATIENT VISIT EST Diagnosis: Allergic rhinitis due to pollen[ICD10: J30.1] Diagnosis: Epilepsy, unspecified, intractable, without status epilepticus[ICD10: G40.919] Keily Pepenicole LÓPEZKEILY Diamante [employer] [facility] CPT-4: 58412 12/02/2017 ([id number]) OFFICE/OUTPATIENT VISIT EST Diagnosis: Other allergic rhinitis[ICD10: J30.89] Fatou JUDD OSMANY [employer] [facility] CPT-4: 55193 10/12/2017 OFFICE/OUTPATIENT VISIT EST Diagnosis: Acute suppurative otitis media without spontaneous rupture of ear drum, recurrent, left ear[ICD10: H66.005] Diagnosis: Epilepsy, unspecified, intractable, without status epilepticus[ICD10: G40.919] Diagnosis: Hesitancy of micturition[ICD10: R39.11] Fatou [facility]AN[facility] [employer] [facility] CPT-4: 56107 09/17/2017 OFFICE/OUTPATIENT VISIT EST Diagnosis: Otitis media, unspecified, left ear[ICD10: H66.92] Fatou Bobby [employer] [facility] CPT-4: 53400 08/06/2017 ([id number]) OFFICE/OUTPATIENT VISIT EST Diagnosis: Vertigo of central origin, 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.49] Diagnosis: Dizziness and giddiness[ICD10: R42] Keily NARANJO [employer] [employer] [facility] CPT-4: 20527 04/01/2017 OFFICE/OUTPATIENT VISIT EST Diagnosis: Vomiting, unspecified[ICD10: R11.10] Diagnosis: 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)[ICD10: K56.5] Diagnosis: Personal history of urinary calculi[ICD10: Z87.442] Emely HobbsSanchez [facility] CPT-4: 55880 03/01/2017 ([id number]) OFFICE/OUTPATIENT VISIT EST Diagnosis: Allergic rhinitis due to pollen[ICD10: J30.1] Diagnosis: Acute and subacute allergic otitis media (mucoid) (sanguinous) (serous), left ear[ICD10: H65.112] Keily RIOSLINE Diamante [facility] CPT-4: 26462 11/10/2016 ([id number]) OFFICE/OUTPATIENT VISIT EST Diagnosis: 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] Diagnosis: Unspecified ovarian cyst, right side[ICD10: N83.201] Diagnosis: Cyst of kidney, 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] Keily Arango BINTA CERON [facility] CPT-4: 13906 08/13/2016 ([id number]) OFFICE/OUTPATIENT VISIT EST Diagnosis: Rash and other nonspecific skin eruption[ICD10: R21] Aziza LINARES [facility] CPT-[facility]: 08254 03/27/2016 ([id number]) OFFICE/OUTPATIENT VISIT EST Diagnosis: Urinary tract infection, site not specified[ICD10: N39.0] Keily Conchita KEILY [facility]am[facility] CPT-4: 09697 03/23/2016 ([id number]) OFFICE/OUTPATIENT VISIT EST Diagnosis: Retention of urine, unspecified[ICD10: R33.9] Diagnosis: Dysuria[ICD10: R30.0] Diagnosis: Constipation, unspecified[ICD10: K59.00] Aziza LAWTON Diamante [facility] CPT-4: 95151 03/19/2016 ([id number]) OFFICE/OUTPATIENT VISIT EST Diagnosis: Acute sinusitis, unspecified[ICD10: J01.90] Keily Pepenicole LINARES [facility] CPT-4: 19001 03/02/2016 OFFICE/OUTPATIENT VISIT EST Diagnosis: Other fatigue[ICD10: R53.83] Diagnosis: Retention of urine, unspecified[ICD10: R33.9] Diagnosis: Dysuria[ICD10: R30.0] Diagnosis: Generalized abdominal pain[ICD10: R10.84] 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] Aziza ARANGO [facility] CPT-4: 59371 02/24/2016 ([id number]) OFFICE/OUTPATIENT VISIT EST Diagnosis: Chronic mucoid otitis media, right ear[ICD10: H65.31] Diagnosis: Allergic rhinitis, unspecified[ICD10: J30.9] Diagnosis: 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] Keily ARANGO [facility] CPT-4: 18480 12/16/2015 ([id number]) OFFICE/OUTPATIENT VISIT EST Diagnosis: Allergic rhinitis, unspecified[ICD10: J30.9] Diagnosis: Acute recurrent sinusitis, unspecified[ICD10: J01.91] Keily ARANGO [facility] CPT-4: 55953 11/12/2015 ([id number]) OFFICE/OUTPATIENT VISIT EST Diagnosis: Other seasonal allergic rhinitis[ICD10: J30.2] Diagnosis: Nausea with vomiting, unspecified[ICD10: R11.2] Diagnosis: Epigastric pain[ICD10: R10.13] Aziza RIOSLINE Thor ARANGO [facility] CPT-4: 58136 10/16/2015 OFFICE/OUTPATIENT VISIT EST Diagnosis: Encounter for follow-up examination after completed treatment for conditions other than malignant neoplasm[ICD10: Z09] Diagnosis: Generalized abdominal pain[ICD10: R10.84] Keily ARANGO [facility] CPT-4: 43941 09/23/2015 ([id number]) OFFICE/OUTPATIENT VISIT EST Diagnosis: Otitis media, unspecified, right ear[ICD10: H66.91] Diagnosis: Constipation, unspecified[ICD10: K59.00] Diagnosis: Allergic rhinitis, unspecified[ICD10: J30.9] Aziza RIOSLINE Diamante ARANGO [facility] CPT-4: 33394 09/20/2015 OFFICE/OUTPATIENT VISIT EST Diagnosis: Allergic rhinitis, unspecified[ICD10: J30.9] Diagnosis: Unspecified perforation of tympanic membrane, right ear[ICD10: H72.91] Bibiana ARANGO DO [facility] CPT-4: 76751 09/10/2015 OFFICE/OUTPATIENT VISIT NEW Diagnosis: Epilepsy, unspecified, intractable, without status epilepticus[ICD10: G40.919] Diagnosis: Gastric ulcer, unspecified as acute or chronic, without hemorrhage or perforation[ICD10: K25.9] Diagnosis: Severe intellectual disabilities[ICD10: F72] Keilykatie Arango KEILY ARANGO [facility] CPT-4: 49465 08/21/2015 Plan of Care Planned Activity Notes [...] ICD-10 : J32.9 07/25/2019 Appointment: Fatou Onofre [address] [place], [place] [id number] ACUTE ILLNESS 07/25/2019 Patient Education: cefdinir- [employer] Coupon [id number] [email or web address]/samplemd/resources/getResource/61/[email or web address]-[email or web address] Completed 07/25/2019 Visit Diagnosis Plan: Chronic pancreatitis Discussion: Continue zenpep and recheck CMP with amylase/lipase in 1 month ICD-9 : 577.1 ICD-10 : K86.1 06/12/2019 Appointment: Keily Arango WPtel: [phone] [facility] Annual Well Visit 06/12/2019 Visit Diagnosis [...] J18.9 05/08/2019 Appointment: Keily Arango WPtel: [phone] [facility] Hospital Follow Up 05/08/2019 Visit [...] ICD-10 : J30.1 05/03/2019 Appointment: Fatou Onofre [address] [place] [address] ACUTE ILLNESS 05/03/2019 Patient Education: amoxicillin- [employer] Coupon [phone] https://[email or web address]/samplemd/resources/getResource/61/[email or web address] Completed 05/03/2019 Visit Diagnosis Plan: Irritability and [...] : R45.4 11/25/2018 Appointment: Nataliia Hsieh [address] ACUTE ILLNESS 11/25/2018 Visit Diagnosis Plan: Acute suppurative otitis media without spontaneous rupture of ear drum, bilateral Discussion: cefdinir for 10 days. if wor sening symptoms later this week, call clinic. push fluids and tylenol/ibuprofen prn pain or fever. ICD-9 : 382.00 ICD-10 : H66.003 06/13/2018 Appointment: Fatou Onofre [address] [place] [address] ACUTE ILLNESS 06/13/2018 Visit Diagnosis Plan: Anuria [...] ICD-10 : K29.00 01/04/2018 Appointment: Fatou Onofre [address] [place] [address] ACUTE ILLNESS 01/04/2018 Patient Education: Patient Medication Summary Completed 01/04/2018 Visit Diagnosis Plan: Acute bronchitis, unspecified Di scussion: zithromax prescribed to take as directed. continue with allergy meds including flonase to help dry congestion. call office next week if new or worsening symptoms. ICD-9 : 466.0 ICD-10 : J20.9 12/31/2017 Appointment: Fatou Onofre [address] [place] [address] ACUTE ILLNESS 12/31/2017 Patient Education: Patient Medication [...] G40.919 12/14/2017 Visit Diagnosis Plan: Encounter for [facility] adult medical examination without abnormal findings Discussion: Had recent lab done Follow Up: 3 months ICD-9 : V70.9 ICD-10 : Z00.00 12/14/2017 Appointment: Keily Arango WPtel: [address] [place] [address] CHECK UP 12/14/2017 Patient Education: Patient Medication [...] J30.1 12/02/2017 Appointment: Keily Arango WPtel: [address] [place] [address] ACUTE ILLNESS 12/02/2017 Patient Education: Patient Medication Summary Completed 12/02/2017 Visit Diagnosis Plan: Other allergic rhinitis Discussi on: symptoms most likely caused from allergies. patient sent to hospital for decadron injection. instructed to restart patient's flonase at home. if new or worsening symptoms, call or rtc. ICD-9 : 477.8 ICD-10 : J30.89 10/12/2017 Appointment: Fatou Onofre [address] [place] [address] ACUTE ILLNESS 10/12/2017 Patient Education: Patient Medication [...] ICD-10 : G40.919 09/17/2017 Appointment: Fatou Onofre [address] [place] [address] ACUTE ILLNESS 09/17/2017 Patient Education: Patient Medication Summary Completed 09/17/2017 Visit Diagnosis Plan: Otitis media, unspecified, left ear Discussion: cefdinir prescribed daily for 10 days. instructed to administer tylenol/ibuprofen for pain or fever. if no improvement, or worsening symptoms, call or rtc. ICD-9 : 380.14 ICD-10 : H66.92 08/06/2017 Appointment: Fatou Onofre [address] [place] [address] ACUTE ILLNESS 08/06/2017 Patient Education: Patient Medication Summary Completed 08/06/2017 Patient Education: Patient Medication Summary Completed 08/02/2017 Patient Education: Patient Medication Summary Completed 04/21/2017 Care Plan: MRI BRAIN STEM W/O DYE LOINC : 53913-2 Pending 04/21/2017 Patient Education: Patient Medication Summary Completed 04/20/2017 Care Plan: MRI BRAIN STEM W/O DYE LOINC : 94294-0 Pending 04/20/2017 Visit Diagnosis Plan: Vertigo of central origin, unspe cified ear Discussion: Continue meclizine at 12.5mg po BID for 2 more weeks then go to 12.5mg daily for 2 weeks then 6.25mg daily for 2 weeks then stop Notify if any symptoms return with weaning process ICD-9 : 386.2 ICD-10 : H81.49 04/01/2017 Appointment: Keily Arango WPtel: [phone] [facility] FOLLOW UP 04/01/2017 Patient Education: Patient Medication Summary Completed 04/01/2017 Patient Education: Patient Medication Summary Completed 03/09/2017 Care Plan: CT HEAD/BRAIN W/O DYE LOINC : 87770-3 Pending 03/09/2017 Visit Plan: It's difficult to [...] medications indicated. 03/01/2017 Appointment: Emely Hdz WPtel: [address] [place] [address] ACUTE ILLNESS 03/01/2017 Patient Education: Patient Medication Summary Completed 03/01/2017 Patient Education: Patient Medication Summary Completed 12/17/2016 Visit Diagnosis Plan: Acute and subacute allergic otitis media (mucoid) (sanguinous) (serous), left ear Discussion: Zithromax ICD-9 : 381.05 ICD-10 : H65.112 11/10/2016 Visit Diagnosis Plan: Allergic rhinitis due to pollen Discussion: Continue zyrtec/singulair ICD-9 : 477.9 ICD-10 : J30.1 11/10/2016 Appointment: Keily Arango WPtel: [address] [place], [place] [phone] ACUTE ILLNESS 11/10/2016 Patient Education: Patient Medication Summary Completed 11/10/2016 Patient Education: Patient Medication Summary Completed 09/07/2016 Care Plan: URINALYSIS AUTO W/[place] : 64943-3 Pending 09/07/2016 Visit Diagnosis Plan: Cyst of [...] : N83.201 08/13/2016 [facility]ment[phone] [facility] 08/12 confirmed-sp FOLLOW UP 08/13/2016 Patient Education: Patient Medication Summary Completed 08/13/2016 Patient Education: Patient Medication Summary Completed 05/19/2016 Care Plan: X-RAY EXAM OF FOOT left foot LOINC : 26 095-0 Pending 05/19/2016 Visit Plan: Discussed with Dr Conchita MAGANA C to be drawn Order sent to Will call with results 03/27/2016 Appointment: Aziza Magallanes [address] [place], [place] [id number] ACUTE ILLNESS 03/27/2016 Patient Education: Patient Medication Summary Completed 03/27/2016 Visit Plan: Go for dose of rocephin 1gm IM today and tomorrow then done Diflucan 150mg x1 today Discussed with mom via phone about urology fwup--she will talk with her and let us know 03/23/2016 Appointment: Keily [facility]el[phone] [facility] 03/23 confirmed ~sl FOLLOW UP 03/23/2016 Patient Education: Patient Medication Summary Completed 03/23/2016 Visit Plan: Per Dr Arango, mauro cat h for UA and culture today Ok to have a standing order for further UA needs at for straight cath Rocephin IM today and daily through Wednesday Mom has arranged a family friend that is an [employer] to give Wednesday and Sundays injections - [...] us know 03/19/2016 Appointment: Aziza Magallanes [address] [place], [place] [id number] ACUTE ILLNESS 03/19/2016 Patient Education: Patient Medication Summary Completed 03/19/2016 Visit Plan: 1 more week of cefdinir 03/02/2016 Appointment: Keily Arango WPtel: [facility] 03/02 confirmed~sl WORK IN 03/02/2016 Patient [...] seen if worsening 02/24/2016 Appointment: Aziza Magallanes [address] [place] [address] ACUTE ILLNESS 02/24/2016 Patient Education: Patient Medication Summary Completed 02/24/2016 Care Plan: CHEST X-RAY 2VW FRONTAL&LATL LOINC : 50901-6 Pending 02/24/2016 Care Plan: X-RAY EXAM OF ABDOMEN LOINC : 71809-4 Pending 02/24/2016 Visit Plan: Repeat zithromax x1 week Cip rodex to right ear x1 week Add Pepcid q HS x2-4 weeks for total histamine blockade and for extra stomach protection while on zithromax 12/16/2015 Appointment: Keily Arango WPtel: [phone] [facility] US 6/9 lm~sl /10 lm ~sl FOLLOW UP 12/16/2015 Patient Education: Patient Medication Summary Completed 12/16/2015 [facility] Education: [facility] [employer]aving [employer] - Sertraline HCL - 18-64 - Dynamic Portal ID Completed 12/16/2015 Visit Plan: Saline nasal flushes prn. Ty lenol/Motrin prn headache. Notify if persists/symptoms worsens Dexamethasone given 11/12/2015 Appointment: [facility]el[phone] [facility] US 5 lm~sl 11/11 lm~sl 10 [...] visits for Belk[facility] 10/16/2015 Appointment: Aziza Magallanes [address] [place], [place] [phone] ACUTE ILLNESS 10/16/2015 Patient Education: Patient Medication Summary Completed 10/16/2015 Appointment: Aziza Magallanes [address] [place] [address] US canceled, feeling better CANCELED 016 Visit Plan: No further abx needed Go [facility] 3 [facility] and restart carafate Notify if abdominal pain worsens 09/23/2015 Appointment: Keiyl Arango [facility]el[phone] [facility] 09/19 confirmed-sp FOLLOW UP 09/23/2015 Patient [...] the past. Order sent to [facility] since [employer] does not have in stock. Recheck in [...] try for now. 09/20/2015 Appointment: Elpidio Aziza [phone] [place] [id number] ACUTE ILLNESS 09/20/2015 Patient Education: Patient Medication Summary Completed 09/20/2015 Visit Plan: Depo Medrol 40mg/ Kenalog 40 mg IM today Resume Ciprodex otic gtts. bid to Rt. ear 09/10/2015 Appointment: Bibiana Garg WPtel: [phone] [place] [phone] 09/08 confirmed-sp ACUTE ILLNESS 09/10/2015 Patient Education: Patient Medication Summary Completed 09/10/2015 Visit Plan: Increase Protonix to 40mg po BID for 1month Continue carafate at q AC dosing for full month then wean off Jevity for 2 more days then advance diet if able Continue current meds 08/21/2015 Appointment: Keily Arango WPtel: [phone] [place] [phone] NEW PATIENT 08/21/2015 Patient Education: Patient Medication [...] arranged a family friend that is an [employer] to give Wednesday and Sundays injections - [...] No further abx needed Go back to [facility] for next 3 days and restart [...] the past. Order sent to [facility] since [facility] does not have [...]
--- OUTSIDE RECORDS SUMMARY | 2019-11-10 19:37 | XMS REPORT | CCD ---
Author Author Belkys Arango D.O. Organization KEILY ARANGO DO [facility] Address [address] [place] [address] Phone Care Team Providers Care Media Specialist Name Role Phone Keily Arango D.O., PP Unavailable CCM Unavailable Summary Purpose Interface Exchange Insurance Providers Payer name Policy type / Coverage type Covered republican ID Effective Begin Date Effective End Date [employer] [facility] [place] Medicaid [id number] U nknown Family History Family History data not found Social History Social History Element Codes Description Effective Dates Marital status Unknown Single 08/21/2015 Employment Unknown Currently unemployed Physically handicapped 08/21/[address]: 052809471 Has never smoked or chewed tobacco 08/21/[address]: 081836300 Never drinks alcohol 2015 Allergies, Adverse Reactions, Alerts Substance Reaction Codes Entered Date Inactivated Date Status * NO KNOWN FOOD ALLERGIES Unknown 08/21/2015 No Inactiv e Date Active * NO KNOWN DRUG ALLERGIES Unknown 08/21/2015 No Inactiv e Date Active _ Unknown 08/21/2015 No Inactive Date Active Problems Condition Codes Effective Dates Condition Status Sinusitis ICD-9: 473.9 ICD-10: J32.9 07/25/2019 Active [...] childhood ICD-9: 307.52 ICD-10: F98.3 02/23/2016 Active Allergic rhinitis, unspecified ICD-9: 477.9 ICD-10: J30.9 12/15/2015 Active Chronic mucoid otitis media, right ear [...] Ciprodex 0.3 %-0.1 % ear drops,suspension RxNorm: 793336 SHAKE LIQUID AND INSTILL 4 DROPS IN AFFECTED EAR(S) TWICE DAILY 09/22/2019 10/15/2019 A ctive diazepam 10 mg tablet RxNorm: 468527 TAKE 1 TABLET BY M OUTH EVERY NIGHT AT BEDTIME NEEDED 09/11/2019 10/10/2019 Active meclizine 12.5 mg tablet RxNorm: 769429 TAKE 1 TABLET B Y MOUTH THREE TIMES DAILY NEEDED 08/31/2019 10/29/2019 Active Ciprodex 0.3 %-0.1 % ear drops,suspension RxNorm: 026193 SHAKE LIQUID AND INSTILL 4 DROPS IN AFFECTED EAR(S) TWICE DAILY 08/31/2019 09/07/2019 I nactive Ciprodex 0.3 %-0.1 % ear drops,suspension RxNorm: 600025 SHAKE LIQUID AND INSTILL 4 DROPS IN AFFECTED EAR(S) TWICE DAILY 08/11/2019 08/18/2019 I nactive meclizine 12.5 mg tablet RxNorm: 269437 TAKE 1 TABLET B Y MOUTH THREE TIMES DAILY NEEDED 08/04/2019 08/30/2019 Inactive cefdinir 250 mg/5 mL oral suspension RxNorm: 387992 12 Milliliter(s) Oral QD though PEG tube 07/25/2019 08/03/2019 Inactive Zenpep 40,000 unit-126,000 unit-168,000 unit capsule,d elayed release RxNorm: 2531861 1 Capsule(s) Oral AC 07/10/2019 11/06/2019 Active famotidine 20 mg tablet RxNorm: 865860 TAKE 1 TABLET BY MOUTH EVERY NIGHT AT BEDTIME 07/09/2019 01/04/2020 Active sertraline 50 mg tablet RxNorm: 530159 TAKE 1 TABLET BY MOUTH EVERY NIGHT AT BEDTIME 07/09/2019 09/06/2019 Inactive Zenpep 40,000 unit-126,000 unit-168,000 unit capsule,d elayed release RxNorm: 8050830 1 Capsule(s) Oral AC 06/12/2019 07/09/2019 Inactive Zenpep 40,000 unit-126,000 unit-168,000 unit capsule,d elayed release RxNorm: 8854537 1 Capsule(s) Oral AC 05/24/2019 05/23/2019 Inactive Zenpep 40,000 unit-126,000 unit-168,000 unit capsule,d elayed release RxNorm: 8219165 1 Capsule(s) Oral AC 05/24/2019 06/11/2019 Inactive Ciprodex 0.3 %-0.1 % ear drops,suspension RxNorm: 624688 DROP(S) 4 DROP(S) OTIC BID 05/22/2019 06/18/2019 Inactive oxcarbazepine 300 mg/5 mL (60 mg/mL) oral suspension RxNorm: 709509 15 Milliliter(s) Oral two times a day 05/08/2019 11/03/2019 Active meclizine 12.5 mg tablet RxNorm: 265446 1 TABLET(S) PO TID NEEDE D 05/05/2019 08/02/2019 Inactive change in quantity Zithromax 200 mg/5 mL oral suspension RxNorm: 364155 12.5 Dilcia liter(s) Oral QD 05/04/2019 05/09/2019 Inactive amoxicillin 400 mg/5 mL oral suspension RxNorm: 631986 10 Milliliter(s) Oral two times a day 05/03/2019 05/13/2019 Inactive Singulair 10 mg tablet RxNorm: 141158 1 TABLET(S) PO QD 03/28/2019 Active Macrobid 100 mg capsule RxNorm: 801612 1 Capsule(s) PO BID 03/16/2003/22/2019 Inactive meclizine 12.5 mg tablet RxNorm: 426115 1 Tablet(s) PO TID as neede d 03/10/2019 05/04/2019 Inactive change in quantity Ciprodex 0.3 %-0.1 % ear drops,suspension RxNorm: 435168 DROP(S) 4 DROP(S) OTIC BID 03/08/2019 04/04/2019 Inactive oxcarbazepine 300 mg/5 mL (60 mg/mL) oral suspension RxNorm: 993676 15 Milliliter(s) PO BID 03/07/2019 05/07/2019 Inactive Macrobid 100 mg capsule RxNorm: 903492 1 Capsule(s) PO BID 02/21/2003/01/2019 Inactive Macrobid 100 mg capsule RxNorm: 937421 1 Capsule(s) PO BID 02/21/2002/19/2019 Inactive meclizine 12.5 mg tablet RxNorm: 713041 1 Tablet(s) PO TID as neede d 02/06/2019 03/07/2019 Inactive change in quantity Ciprodex 0.3 %-0.1 % ear drops,suspension RxNorm: 312827 DROP(S) 4 DROP(S) OTIC BID 01/30/2019 02/12/2019 Inactive diazepam 10 mg tablet RxNorm: 220864 1 Tablet(s) PO QHS as needed 0 01/27/2019 09/10/2019 Inactive sertraline 50 mg tablet RxNorm: 430962 1 Tablet(s) PO QHS 12/29/2018 06/26/2019 Inactive famotidine 20 mg tablet RxNorm: 358054 1 Tablet(s) PO QHS 12/29/2018 06/26/2019 Inactive Ciprodex 0.3 %-0.1 % ear drops,suspension RxNorm: 374400 DROP(S) 4 DROP(S) OTIC BID 12/14/2018 12/27/2018 Inactive Generlac 10 gram/15 mL oral solution RxNorm: 292847 15 Milliliter(s) PO TWO TO THREE TIMES DAILY 12/06/2018 06/03/2019 Inactive Protonix 40 mg tablet,delayed release RxNorm: 312312 1 Tablet(s) PO or per feeding tube BID 11/24/2018 05/22/2019 Inactive meclizine 12.5 mg tablet RxNorm: 881526 1 Tablet(s) PO TID as neede d 11/11/2018 02/06/2019 Inactive change in quantity Ciprodex 0.3 %-0.1 % ear drops,suspension RxNorm: 109422 DROP(S) 4 DROP(S) OTIC BID 11/08/2018 11/21/2018 Inactive diazepam 10 mg tablet RxNorm: 163998 1 Tablet(s) PO QHS as needed 0 10/21/2018 11/19/2018 Inactive Generlac 10 gram/15 mL oral solution RxNorm: 634851 Mil liliter(s) 15 MILLILITER(S) PO TWO TO THREE TIMES DAILY 10/07/2018 11/05/2018 Inacti ve Ciprodex 0.3 %-0.1 % ear drops,suspension RxNorm: 706812 DROP(S) DROP(S) 4 DROP(S) OTIC BID 08/26/2018 03/15/2019 Inactive meclizine 12.5 mg tablet RxNorm: 533274 1 TABLET(S) PO TID NEEDE D 07/25/2018 10/22/2018 Inactive change in quantity oxcarbazepine 300 mg/5 mL (60 mg/mL) oral suspension RxNorm: 170664 15 Milliliter(s) PO BID 07/08/2018 07/07/2018 Inactive oxcarbazepine 300 mg/5 mL (60 mg/mL) oral suspension RxNorm: 716857 15 Milliliter(s) PO BID 07/08/2018 01/03/2019 Inactive sertraline 50 mg tablet RxNorm: 887768 1 TABLET(S) PO QHS 07/06/2018 12/28/2018 Inactive Singulair 10 mg tablet RxNorm: 863574 1 TABLET(S) PO QD 06/24/2018 Inactive Ciprodex 0.3 %-0.1 % ear drops,suspension RxNorm: 605894 DROP(S) 4 DROP(S) OTIC BID 06/20/2018 06/19/2018 Inactive Ciprodex 0.3 %-0.1 % ear drops,suspension RxNorm: 708977 Drop(s) DROP(S) 4 DROP(S) OTIC BID 06/20/2018 07/03/2018 Inactive cefdinir 250 mg/5 mL oral suspension RxNorm: 720756 12 Milliliter(s) PO QD though PEG tube 06/13/2018 06/22/2018 Inactive famotidine 20 mg tablet RxNorm: 960765 1 Tablet(s) PO QHS 05/31/2018 11/26/2018 Inactive famotidine 40 mg/5 mL (8 mg/mL) oral suspension RxNorm: 3102 74 2.5 Milliliter(s) PO QHS 04/29/2018 06/12/2018 Inactive meclizine 12.5 mg tablet RxNorm: 739728 1 TABLET(S) PO TID NEEDE D 04/25/2018 07/23/2018 Inactive change in quantity Generlac 10 gram/15 mL oral solution RxNorm: 199323 Mil liliter(s) 15 MILLILITER(S) PO TWO TO THREE TIMES DAILY 04/04/2018 05/03/2018 Inacti ve Ciprodex 0.3 %-0.1 % ear drops,suspension RxNorm: 549174 Drop(s) 4 DROP(S) OTIC BID 04/04/2018 04/17/2018 Inactive diazepam 10 mg tablet RxNorm: 874087 1 Tablet(s) PO QHS as needed 1 05/03/2018 Inactive famotidine 40 mg/5 mL (8 mg/mL) oral suspension RxNorm: 3102 74 2.5 Milliliter(s) PO QHS 04/04/2018 04/28/2018 Inactive Generlac 10 gram/15 mL oral solution RxNorm: 405969 15 MILLILITER(S) PO TWO TO THREE TIMES DAILY 03/24/2018 04/03/2018 Inactive Singulair 10 mg tablet RxNorm: 078629 1 TABLET(S) PO QD 03/18/2018 Inactive Ciprodex 0.3 %-0.1 % ear drops,suspension RxNorm: 216313 Drop(s) 4 DROP(S) OTIC BID 03/08/2018 03/21/2018 Inactive Generlac 10 gram/15 mL oral solution RxNorm: 078942 15 Milliliter(s) PO two to three times daily 03/03/2018 03/23/2018 Inactive meclizine 12.5 mg tablet RxNorm: 071516 1 Tablet(s) PO TID as neede d 02/10/2018 04/10/2018 Inactive change in quantity meclizine 12.5 mg tablet RxNorm: 202998 1 Tablet(s) PO BID as neede d 02/07/2018 02/09/2018 Inactive change in quantity Ciprodex 0.3 %-0.1 % ear drops,suspension RxNorm: 424683 Drop(s) 4 DROP(S) OTIC BID 02/02/2018 03/08/2018 Inactive sertraline 50 mg tablet RxNorm: 670822 1 TABLET(S) PO QHS 01/25/2018 07/05/2018 Inactive Zithromax 200 mg/5 mL oral suspension RxNorm: 027694 12.5 Dilcia liter(s) PO QD 12/31/2017 01/04/2018 Inactive Pepcid 20 mg tablet RxNorm: 781035 TABLET(S) 1 TABLET(S) PO QHS 04/29/2018 Inactive famotidine 40 mg/5 mL (8 mg/mL) oral suspension RxNorm: 3102 74 2.5 Milliliter(s) PO QHS 12/28/2017 12/27/2017 Inactive famotidine 40 mg/5 mL (8 mg/mL) oral suspension RxNorm: 3102 74 2.5 Milliliter(s) PO QHS 12/28/2017 04/03/2018 Inactive Ciprodex 0.3 %-0.1 % ear drops,suspension RxNorm: 151279 Drop(s) 4 DROP(S) OTIC BID 12/27/2017 02/02/2018 Inactive meclizine 12.5 mg tablet RxNorm: 518982 1 Tablet(s) PO BID as neede d 12/23/2017 02/06/2018 Inactive change in quantity Protonix 40 mg tablet,delayed release RxNorm: 431282 1 Tablet(s) PO or per feeding tube BID 12/16/2017 07/13/2018 Inactive oxcarbazepine 300 mg/5 mL (60 mg/mL) oral suspension RxNorm: 456135 15 Milliliter(s) PO BID 12/16/2017 07/08/2018 Inactive meclizine 12.5 mg tablet RxNorm: 883684 1 Tablet(s) PO BID as neede d 12/15/2017 02/07/2018 Inactive change in quantity Pepcid 40 mg/5 mL (8 mg/mL) oral suspension RxNorm: 859863 5 Milliliter(s) PO QHS to replace nighttime pantoprazole dose 12/14/2017 12/27/2017 Inact марина meclizine 12.5 mg tablet RxNorm: 700751 1 Tablet(s) PO BID as neede d 12/13/2017 12/23/2017 Inactive diazepam 10 mg tablet RxNorm: 206272 1 Tablet(s) PO QHS as needed 0 12/02/2017 03/01/2018 Inactive prednisolone 15 mg/5 mL oral solution RxNorm: 772017 5 Milliliter(s) PO BID for 3 days then 5ml daily for 3 days then 2.5ml daily for 3 days 12/02/2017 12/13/2017 Inactive sertraline 50 mg tablet RxNorm: 542475 1 Tablet(s) PO QHS 11/04/2017 01/24/2018 Inactive Ciprodex 0.3 %-0.1 % ear drops,suspension RxNorm: 091121 Drop(s) 4 DROP(S) OTIC BID 10/18/2017 10/31/2017 Inactive Ciprodex 0.3 %-0.1 % ear drops,suspension RxNorm: 089697 Drop(s) 4 DROP(S) OTIC BID 10/18/2017 12/27/2017 Inactive Singulair 10 mg tablet RxNorm: 126193 1 Tablet(s) PO QD 09/30/2017 Inactive diazepam 5 mg/5 mL (1 mg/mL) oral solution RxNorm: 994301 2.5 Milliliter(s) PO QD give additional 5 mg dose if seizure occurs 09/17/2017 No Stop Date A ctive Bactrim DS 800 mg-160 mg tablet RxNorm: 761829 1 Tablet(s) PO BID 0 09/17/2017 09/23/2017 Inactive Ciprodex 0.3 %-0.1 % ear drops,suspension RxNorm: 993685 4 DROP (S) OTIC BID 09/13/2017 10/18/2017 Inactive cefdinir 250 mg/5 mL oral suspension RxNorm: 439413 12 Milliliter(s) PO QD though PEG tube 08/06/2017 08/15/2017 Inactive sertraline 50 mg tablet RxNorm: 571448 1 Tablet(s) PO QHS 08/02/2017 11/04/2017 Inactive Ciprodex 0.3 %-0.1 % ear drops,suspension RxNorm: 804415 4 DROP (S) OTIC BID 07/22/2017 08/11/2017 Inactive Singulair 10 mg tablet RxNorm: 676401 1 Tablet(s) PO QD 06/30/2017 Inactive diazepam 10 mg tablet RxNorm: 292875 TAKE 1 TABLET BY M OUTH EVERY NIGHT AT BEDTIME NEEDED 06/04/2017 07/03/2017 Inactive oxcarbazepine 300 mg/5 mL (60 mg/mL) oral suspension RxNorm: 000303 15 MILLILITER(S) PO BID 05/03/2017 12/16/2017 Inactive sertraline 50 mg tablet RxNorm: 347882 1 Tablet(s) PO QHS 05/03/2017 08/02/2017 Inactive Protonix 40 mg tablet,delayed release RxNorm: 477726 1 Tablet(s) PO or per feeding tube BID 04/26/2017 12/16/2017 Inactive Ciprodex 0.3 %-0.1 % ear drops,suspension RxNorm: 488086 4 DROP (S) OTIC BID 04/26/2017 05/23/2017 Inactive Generlac 10 gram/15 mL oral solution RxNorm: 876243 Mil liliter(s) TAKE 15 ML BY MOUTH TWO-THREE TIMES DAILY 04/08/2017 03/03/2018 Inactive Singulair 10 mg tablet RxNorm: 111910 1 Tablet(s) PO QD 03/03/2017 Inactive diazepam 10 mg tablet RxNorm: 371020 1 Tablet(s) PO QHS as needed 0 02/15/2017 06/04/2017 Inactive Singulair 10 mg tablet RxNorm: 927427 1 Tablet(s) PO QD 12/01/2016 Inactive Diflucan 150 mg tablet RxNorm: 292558 Tablet(s) Give 1 tab PO now and then repeat dose in 5 days 11/10/2016 03/31/2017 Inactive Zithromax 200 mg/5 mL oral suspension RxNorm: 961460 12.5 Dilcia liter(s) PO QD 11/10/2016 11/14/2016 Inactive Singulair 10 mg tablet RxNorm: 572092 TAKE 1 TABLET BY MOUTH ON CE DAILY 11/02/2016 12/01/2016 Inactive diazepam 10 mg tablet RxNorm: 288296 TAKE 1 TABLET BY M OUTH EVERY NIGHT AT BEDTIME NEEDED 10/21/2016 11/19/2016 Inactive sertraline 50 mg tablet RxNorm: 855537 1 Tablet(s) PO QHS 10/12/2016 01/09/2017 Inactive fluconazole 100 mg tablet RxNorm: 574351 1 Tablet(s) PO QD 09/23/19 17 09/24/2016 Inactive fluconazole 100 mg tablet RxNorm: 310307 1 Tablet(s) PO QD 09/23/19 17 09/21/2016 Inactive Bactrim DS 800 mg-160 mg tablet RxNorm: 834596 1 Tablet(s) PO BID 0 09/10/2016 09/09/2016 Inactive Bactrim DS 800 mg-160 mg tablet RxNorm: 629245 1 Tablet(s) PO BID 0 09/10/2016 09/16/2016 Inactive oxcarbazepine 300 mg/5 mL (60 mg/mL) oral suspension RxNorm: 845659 15 Milliliter(s) PO BID 09/07/2016 03/05/2017 Inactive sertraline 50 mg tablet RxNorm: 895315 1 Tablet(s) PO QHS 07/06/2016 10/03/2016 Inactive Pepcid 20 mg tablet RxNorm: 238293 Tablet(s) 1 TABLET(S) PO QHS 08/201603/08/2017 Inactive sertraline 50 mg tablet RxNorm: 209035 1 Tablet(s) PO QHS 06/08/2016 05/03/2017 Inactive Generlac 10 gram/15 mL oral solution RxNorm: 545538 Mil liliter(s) TAKE 15 ML BY MOUTH TWO-THREE TIMES DAILY 06/08/2016 09/08/2016 Inactive Pepcid 20 mg tablet RxNorm: 181070 1 TABLET(S) PO QHS 06/04/201607/2016 Inactive fluconazole 100 mg tablet RxNorm: 757879 1 Tablet(s) QD through PEG tube 05/13/2016 12/01/2017 Inactive Diflucan 150 mg tablet RxNorm: 286895 Give 1 tab PO now and then repeat dose in 5 days 03/19/2016 11/09/2016 Inactive ceftriaxone 1 gram solution for injection RxNorm: 2668721 1 Gram(s) IM QD Wednesday and Wednesday03/19/2016 11/09/2016 Inactive lidocaine 10 mg/mL (1 %) injection solution RxNorm: 2311115 Use as directed to reconstitute Rocephin when needed 03/19/2016 12/13/2017 Inactive Generlac 10 gram/15 mL oral solution RxNorm: 883549 JOE E 15 ML BY MOUTH TWO- THREE TIMES DAILY 03/19/2016 06/07/2016 Inactive oxcarbazepine 300 mg/5 mL oral suspension RxNorm: 550549 15 Milliliter(s) PO BID 03/13/2016 09/07/2016 Inactive Ciprodex 0.3 %-0.1 % ear drops,suspension RxNorm: 602917 4 DROP (S) OTIC BID 03/09/2016 03/15/2016 Inactive cefdinir 250 mg/5 mL oral suspension RxNorm: 441647 11. 75 Milliliter(s) PO QD though PEG tube 03/02/2016 03/08/2016 Inactive cefdinir 250 mg/5 mL oral suspension RxNorm: 984375 11. 75 Milliliter(s) PO QD though PEG tube 02/24/2016 03/01/2016 Inactive cefdinir 250 mg/5 mL oral suspension RxNorm: 510372 11. 75 Milliliter(s) PO QD though PEG tube 02/24/2016 02/23/2016 Inactive Ciprodex 0.3 %-0.1 % ear drops,suspension RxNorm: 338077 4 Drop (s) OTIC BID 02/24/2016 03/01/2016 Inactive Generlac 10 gram/15 mL oral solution RxNorm: 934331 JOE E 15 ML BY MOUTH TWICE DAILY 02/17/2016 03/18/2016 Inactive Generlac 10 gram/15 mL oral solution RxNorm: 646578 15 Millilit er(s) PO BID 01/23/2016 02/16/2016 Inactive Pepcid 20 mg tablet RxNorm: 589704 1 TABLET(S) PO QHS 01/13/201605/07 Inactive Ciprodex 0.3 %-0.1 % ear drops,suspension RxNorm: 862808 4 Drop (s) OTIC BID 12/23/2015 12/29/2015 Inactive sertraline 50 mg tablet RxNorm: 280376 1 Tablet(s) PO QHS 12/16/2015 06/07/2016 Inactive Zithromax 500 mg tablet RxNorm: 803005 1 Tablet(s) PO QD 12/16/2015 0 12/22/2015 Inactive Pepcid 20 mg tablet RxNorm: 987347 1 Tablet(s) PO QHS 12/16/201501/02 Inactive Zithromax 500 mg tablet RxNorm: 503308 1 Tablet(s) PO QD 11/12/2015 0 11/18/2015 Inactive Singulair 10 mg tablet RxNorm: 773733 1 Tablet(s) PO BID 10/16/2015 0 11/11/2015 Inactive diazepam 10 mg tablet RxNorm: 600838 1 Tablet(s) PO QHS 10/07/2015 Inactive diazepam 10 mg tablet RxNorm: 592998 1 Tablet(s) PO QHS 10/07/2015 Inactive fexofenadine 30 mg/5 mL oral suspension RxNorm: 421105 10 Milliliter(s) PO one to two times daily PRN allergies 09/20/2015 12/15/2015 Inactive ceftriaxone 1 gram solution for injection RxNorm: 7745070 1 Gram (s) IM QD 09/20/2015 09/21/2015 Inactive Ciprodex 0.3 %-0.1 % ear drops,suspension RxNorm: 173199 4 Drop (s) OTIC BID 09/20/2015 10/03/2015 Inactive Protonix 40 mg tablet,delayed release RxNorm: 735906 1 Tablet(s) PO or per feeding tube BID 08/21/2015 12/18/2015 Inactive Carafate 100 mg/mL oral suspension RxNorm: 638793 10 Mi lliliter(s) Miscellaneous per feeding tube AC & HS 08/21/2015 09/19/2015 Inactive Zyrtec 10 mg tablet RxNorm: 4550512 1 Tablet(s) PO QD No Start Date Active diazepam 20 mg rectal kit RxNorm: 253210 RTL as needed No Start Date Active Lortab Elixir 10 mg-300 mg/15 mL oral solution RxNorm: 64252 45 8 PO Q6-8H as needed No Start Date Active ondansetron HCl 4 mg/5 mL oral solution RxNorm: 239029 10 Milliliter(s) PO as needed and through tube No Start Date Active sertraline 50 mg tablet RxNorm: 983293 1 Tablet(s) PO QD No Start D ate 12/15/2015 Inactive Brittany 180 mg tablet RxNorm: 826344 1 Tablet(s) PO QD No Start Date 06/12/2018 Inactive Generlac 10 gram/15 mL oral solution RxNorm: 541931 15 Millilit er(s) PO BID No Start Date 01/22/2016 Inactive oxcarbazepine 300 mg/5 mL oral suspension RxNorm: 962854 13.5 Milliliter(s) PO QAM and 15ml in the evening No Start Date 12/15/2015 Inactive Singulair 10 mg tablet RxNorm: 190706 1 Tablet(s) PO QD No Start Da te 11/30/2016 Inactive meclizine 12.5 mg tablet RxNorm: 921583 1 Tablet(s) PO TID as needed for dizziness No Start Date 09/13/2017 Inactive meclizine 12.5 mg tablet RxNorm: 660364 1 Tablet(s) PO BID No Start Date 12/12/2017 Inactive fluconazole 100 mg tablet RxNorm: 172536 1 Tablet(s) QD through PEG tube No Start Date 05/12/2016 Inactive Flomax 0.4 mg capsule RxNorm: 122245 1 Capsule(s) PO QD No Start Da te 06/12/2018 Inactive diazepam 10 mg tablet RxNorm: 210520 1 Tablet(s) PO QHS as needed N o Start Date 02/14/2017 Inactive Generlac 10 gram/15 mL oral solution RxNorm: 363957 15 Milliliter(s) PO two to three times daily No Start Date 03/02/2018 Inactive oxcarbazepine 300 mg/5 mL oral suspension RxNorm: 131222 15 Milliliter(s) PO BID No Start Date 12/15/2017 Inactive Medication Administered No Medication Administered data Immunizations Vaccine Codes Date Status Influenza CVX: 141 04/21/2019 Results No Results data Procedures Procedure Codes Date DEXAMETHASONE SODIUM PHOS CPT-4: J1100 05/03/2019 THER/PROPH/DIAG INJ SC/IM CPT-4: 00058 05/03/2019 CEFTRIAXONE SODIUM INJECTION CPT-4: J0696 03/19/2016 THER/PROPH/DIAG INJ SC/IM CPT-4: 19762 03/19/2016 DEXAMETHASONE SODIUM PHOS CPT-4: J1100 11/12/2015 THER/PROPH/DIAG INJ SC/IM CPT-4: 58084 11/12/2015 CEFTRIAXONE SODIUM INJECTION CPT-4: J0696 09/20/2015 THER/PROPH/DIAG INJ SC/IM CPT-4: 11542 09/20/2015 THER/PROPH/DIAG INJ SC/IM CPT-4: 50643 09/10/2015 METHYLPREDNISOLONE 40 MG INJ CPT-4: J1030 09/10/2015 TRIAMCINOLONE ACET INJ NOS CPT-4: J3301 09/10/2015 Vital Signs Date Vital 07/25/2019 Blood Pressure 1: 116/80 Code: 8480-6 BMI: 23.2 Code: 84473-7 Heart Rate 1: 81 bpm Height: 4'5" Respiratory Rate: 16 bpm SpO2: 100% Tempera ture: 36.8 (C) / 98.2 (F) Weight: 92 lbs 06/12/2019 Blood Pressure 1: 112/74 Code: 8480-6 BMI: 23.2 Code: 63736-3 Heart Rate 1: 102 bpm Height: 4'5" [...] 1: 114/70 Code: 8480-6 BMI: 23.1 Code: 11191-5 Heart Rate 1: 80 bpm Height: 4'6" Respiratory Rate: 20 bpm Temperature: 36 .5 (C) / 97.7 (F) Weight: 96 lbs Functional Status No Functional Status data Reason For Visit Reason For Visit Effective Dates Notes postnasal drip 07/25/2019 well woman exam (18-39 [...] 09/20/2015 otalgia 09/10/2015 ~generic 08/21/2015 New Patient----[facility] visit Encounters Encounter Performer Location Codes Date () OFFICE/OUTPATIENT VISIT EST Diagnosis: Sinusitis[ICD10: J32.9] Fatou Jemima [facility] CPT-4: 07410 07/25/2019 ([id number]) PREV VISIT EST AGE 18-39 Diagnosis: Encounter for general adult medical examination with abnormal findings[ICD10: Z00.01] Diagnosis: Chronic pancreatitis[ICD10: K86.1] Diagnosis: Cerebral palsy, unspecified[ICD10: G80.9] Keily ARANGO [facility] CPT-4: 28803 06/12/2019 ([id number]) OFFICE/OUTPATIENT VISIT EST Diagnosis: Pneumonia, organism unspecified[ICD10: J18.9] Diagnosis: Breast mass, right[ICD10: N63.10] Keily ARANGO [place] [facility] CPT-4: 45871 05/08/2019 ([id number]) OFFICE/OUTPATIENT VISIT EST Diagnosis: Allergic rhinitis due to pollen[ICD10: J30.1] Diagnosis: Otitis media, unspecified, right ear[ICD10: H66.91] Fatou ARANGO [place] [facility] CPT-4: 68726 05/03/2019 ([id number]) OFFICE/OUTPATIENT VISIT EST Diagnosis: Irritability and anger[ICD10: R45.4] Nataliia ARANGO [place] [facility] CPT-4: 91591 11/25/2018 ([id number]) OFFICE/OUTPATIENT VISIT EST Diagnosis: Acute suppurative otitis media without spontaneous rupture of ear drum, bilateral[ICD10: H66.003] Fatou ARANGO [place] [facility] CPT-4: 95277 06/13/2018 ([id number]) OFFICE/OUTPATIENT VISIT EST Diagnosis: Other fatigue[ICD10: R53.83] Diagnosis: Anuria and oliguria[ICD10: R34] Diagnosis: Acute gastritis without bleeding[ICD10: K29.00] Fatou ARANGO [place] [facility] CPT-4: 20845 01/04/2018 ([id number]) OFFICE/OUTPATIENT VISIT EST Diagnosis: Acute bronchitis, unspecified[ICD10: J20.9] Fatou ARANGO DO [facility] CPT-4: 88120 12/31/2017 ([id number]) PREV VISIT EST AGE 18-39 Diagnosis: Encounter for general adult medical examination without abnormal findings[ICD10: Z00.00] Diagnosis: Severe intellectual disabilities[ICD10: F72] Diagnosis: Allergic rhinitis due to pollen[ICD10: J30.1] Diagnosis: Epilepsy, unspecified, intractable, without status epilepticus[ICD10: G40.919] Diagnosis: Gastro-esophageal reflux disease without esophagitis[ICD10: K21.9] [facility]: 17829 12/14/2017 ([id number]) OFFICE/OUTPATIENT VISIT EST Diagnosis: Allergic rhinitis due to pollen[ICD10: J30.1] Diagnosis: Epilepsy, unspecified, intractable, without status epilepticus[ICD10: G40.919] Keily Bobby [facility] CPT-4: 39542 12/02/2017 ([id number]) OFFICE/OUTPATIENT VISIT EST Diagnosis: Other allergic rhinitis[ICD10: J30.89] Fatou [facility] CPT-4: 18059 10/12/2017 OFFICE/OUTPATIENT VISIT EST Diagnosis: Acute suppurative otitis media without spontaneous rupture of ear drum, recurrent, left ear[ICD10: H66.005] Diagnosis: Epilepsy, unspecified, intractable, without status epilepticus[ICD10: G40.919] Diagnosis: Hesitancy of micturition[ICD10: R39.11] [facility]RO [facility] CPT[facility]: 71890 09/17/2017 OFFICE/OUTPATIENT VISIT EST Diagnosis: Otitis media, unspecified, left ear[ICD10: H66.92] [facility]: 59635 08/06/2017 ([id number]) OFFICE/OUTPATIENT VISIT EST Diagnosis: Vertigo of central origin, 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.49] Diagnosis: Dizziness and giddiness[ICD10: R42] Keily LÓPEZFANTASMAAliya MARCELLA [facility] CPT-4: 93560 04/01/2017 OFFICE/OUTPATIENT VISIT EST Diagnosis: Vomiting, unspecified[ICD10: R11.10] Diagnosis: 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)[ICD10: K56.5] Diagnosis: Personal history of urinary calculi[ICD10: Z87.442] Emely SerratoAj [facility] C[facility]: 87425 03/01/2017 ([id number]) OFFICE/OUTPATIENT VISIT EST Diagnosis: Allergic rhinitis due to pollen[ICD10: J30.1] Diagnosis: Acute and subacute allergic otitis media (mucoid) (sanguinous) (serous), left ear[ICD10: H65.112] Keily CA[facility]ILLO [facility] CPT-4: 78786 11/10/2016 ([id number]) OFFICE/OUTPATIENT VISIT EST Diagnosis: 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] Diagnosis: Unspecified ovarian cyst, right side[ICD10: N83.201] Diagnosis: Cyst of kidney, 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] Keily [facility]: 69942 08/13/2016 ([id number]) OFFICE/OUTPATIENT VISIT EST Diagnosis: Rash and other nonspecific skin eruption[ICD10: R21] Aziza Magallanes [facility] CPT-[facility]: 02088 03/27/2016 ([id number]) OFFICE/OUTPATIENT VISIT EST Diagnosis: Urinary tract infection, site not specified[ICD10: N39.0] [facility]ily [facility] CPT-[facility]: 89439 03/23/2016 ([id number]) OFFICE/OUTPATIENT VISIT EST Diagnosis: Retention of urine, unspecified[ICD10: R33.9] Diagnosis: Dysuria[ICD10: R30.0] Diagnosis: Constipation, unspecified[ICD10: K59.00] Aziza [facility]ON [facility] CPT-4: 58764 03/19/2016 ([id number]) OFFICE/OUTPATIENT VISIT EST Diagnosis: Acute sinusitis, unspecified[ICD10: J01.90] [facility] CPT-[facility]: 73910 03/02/2016 OFFICE/OUTPATIENT VISIT EST Diagnosis: Other fatigue[ICD10: R53.83] Diagnosis: Retention of urine, unspecified[ICD10: R33.9] Diagnosis: Dysuria[ICD10: R30.0] Diagnosis: Generalized abdominal pain[ICD10: R10.84] 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] Aziza ARANGO [facility] CPT-4: 06339 02/24/2016 ([id number]) OFFICE/OUTPATIENT VISIT EST Diagnosis: Chronic mucoid otitis media, right ear[ICD10: H65.31] Diagnosis: Allergic rhinitis, unspecified[ICD10: J30.9] Diagnosis: 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] Keily ARANGO [facility] CPT-4: 69247 12/16/2015 ([id number]) OFFICE/OUTPATIENT VISIT EST Diagnosis: Allergic rhinitis, unspecified[ICD10: J30.9] Diagnosis: Acute recurrent sinusitis, unspecified[ICD10: J01.91] Keily ARANGO [facility] CPT-4: 53003 11/12/2015 ([id number]) OFFICE/OUTPATIENT VISIT EST Diagnosis: Other seasonal allergic rhinitis[ICD10: J30.2] Diagnosis: Nausea with vomiting, unspecified[ICD10: R11.2] Diagnosis: Epigastric pain[ICD10: R10.13] Aziza ARANGO [facility] CPT-4: 10139 10/16/2015 OFFICE/OUTPATIENT VISIT EST Diagnosis: Encounter for follow-up examination after completed treatment for conditions other than malignant neoplasm[ICD10: Z09] Diagnosis: Generalized abdominal pain[ICD10: R10.84] Keily ARANGO [facility] CPT-4: 10296 09/23/2015 ([id number]) OFFICE/OUTPATIENT VISIT EST Diagnosis: Otitis media, unspecified, right ear[ICD10: H66.91] Diagnosis: Constipation, unspecified[ICD10: K59.00] Diagnosis: Allergic rhinitis, unspecified[ICD10: J30.9] Aziza ARANGO [facility] CPT-4: 73369 09/20/2015 OFFICE/OUTPATIENT VISIT EST Diagnosis: Allergic rhinitis, unspecified[ICD10: J30.9] Diagnosis: Unspecified perforation of tympanic membrane, right ear[ICD10: H72.91] Bibiana ARANGO [employer] CPT-4: 18178 09/10/2015 OFFICE/OUTPATIENT VISIT NEW Diagnosis: Epilepsy, unspecified, intractable, without status epilepticus[ICD10: G40.919] Diagnosis: Gastric ulcer, unspecified as acute or chronic, without hemorrhage or perforation[ICD10: K25.9] Diagnosis: Severe intellectual disabilities[ICD10: F72] Keily Arango KEILY ARANGO [employer] CPT-4: 43545 08/21/2015 Plan of Care Planned Activity Notes Codes Status Date Visit Diagnosis Plan: Sinusitis Discussion: due to [facility] of illness and symptoms, cefdinir prescribed to take as directed. call office with any new or worsening symptoms. ICD-9 : 473.9 ICD-10 : J32.9 07/25/2019 Appointment: Fatou Onofre [address] [place], [place] [id number] ACUTE ILLNESS 07/25/2019 Patient Education: cefdinir- [employer] Coupon [id number] [email or web address]/samplemd/resources/getResource/61/wn1y1txd-[email or web address] Completed 07/25/2019 Visit Diagnosis Plan: Chronic pancreatitis Discussion: Continue zenpep and recheck CMP with amylase/lipase in 1 month ICD-9 : 577.1 ICD-10 : K86.1 06/12/2019 Appointment: Keily Arango WPtel: [facility]4 [facility] Annual Well Visit 06/12/2019 Visit Diagnosis [...] J18.9 05/08/2019 Appointment: Keily Arango WPtel: [phone] [id number] Hospital Follow Up 05/08/2019 Visit Diagnosis Plan: [...] ICD-10 : J30.1 05/03/2019 Appointment: Fatou Onofre [address] [place], [place] [id number] ACUTE ILLNESS 05/03/2019 Patient Education: amoxicillin- [employer] Coupon [id number] [email or web address]/samplemd/resources/getResource/61/[email or web address] Completed 05/03/2019 Visit Diagnosis Plan: Irritability and [...] ICD-10 : R45.4 11/25/2018 Appointment: Natal[facility]sie[facility] [facility] 11/25/2018 Visit Diagnosis Plan: Acute suppurative otitis media without spontaneous rupture of ear drum, bilateral Discussion: cefdinir for 10 days. if wor sening symptoms later this week, call clinic. push fluids and tylenol/ibuprofen prn pain or fever. ICD-9 : 382.00 ICD-10 : H66.003 06/13/2018 Appointment: Fatou Onofre [address] [place], [place] [id number] ACUTE ILLNESS 06/13/2018 Visit Diagnosis Plan: Anuria [...] ICD-10 : R53.83 01/04/2018 Appointment: Fatou Onofre [address] [place], [place] [address] ACUTE ILLNESS 01/04/2018 Patient Education: Patient Medication Summary Completed 01/04/2018 Visit Diagnosis Plan: Acute bronchitis, unspecified Di scussion: zithromax prescribed to take as directed. continue with allergy meds including flonase to help dry congestion. call office next week if new or worsening symptoms. ICD-9 : 466.0 ICD-10 : J20.9 12/31/2017 Appointment: Fatou Onofre [address] [place], [place] [id number] ACUTE ILLNESS 12/31/2017 Patient Education: Patient Medication Summary Completed 12/31/2017 Visit Diagnosis Plan: Epilepsy, unspecif ied, intractable, without status epilepticus Discussion: Stable on current regimen ICD-9 : 345.91 ICD-10 : G40.919 12/14/2017 Visit Diagnosis Plan: Encounter for [facility] adult medical examination without abnormal findings Discussion: Had recent lab done Follow Up: 3 months ICD-9 : V70.9 ICD-10 : Z00.00 12/14/2017 Visit Diagnosis Plan: Allergic rhinitis due to pollen Discussion: Continue current meds Change night time protonix to pepcid for total histamine blockade ICD-9 : 477.9 ICD-10 : J30.1 12/14/2017 Appointment: Keily Arango WPtel: [phone] [facility] CHECK UP 12/14/2017 Patient Education: Patient [...] J30.1 12/02/2017 Appointment: Keily Arango WPtel: [phone] ACUTE ILLNESS 12/02/2017 Patient Education: Patient Medication Summary Completed 12/02/2017 Visit Diagnosis Plan: Other allergic rhinitis Discussi on: symptoms most likely caused from allergies. patient sent to hospital for decadron injection. instructed to restart patient's flonase at home. if new or worsening symptoms, call or rtc. ICD-9 : 477.8 ICD-10 : J30.89 10/12/2017 Appointment: Fatou Onofre [address] [place] [address] ACUTE ILLNESS 10/12/2017 Patient Education: Patient Medication [...] : 345.91 ICD-10 : G40.919 09/17/2017 Appointment: Faotu Onofre [address] [place], [place] [address] ACUTE ILLNESS 09/17/2017 Patient Education: Patient Medication Summary Completed 09/17/2017 Visit Diagnosis Plan: Otitis media, unspecified, left ear Discussion: cefdinir prescribed daily for 10 days. instructed to administer tylenol/ibuprofen for pain or fever. if no improvement, or worsening symptoms, call or rtc. ICD-9 : 380.14 ICD-10 : H66.92 08/06/2017 App[facility]ment[facility] [facility] 08/06/2017 Patient Education: Patient Medication Summary Completed 08/06/2017 Patient Education: Patient Medication Summary Completed 08/02/2017 Patient Education: Patient Medication Summary Completed 04/21/2017 Care Plan: MRI BRAIN STEM W/O DYE LOINC : 90153-9 Pending 04/21/2017 Patient Education: Patient Medication Summary Completed 04/20/2017 Care Plan: MRI BRAIN STEM W/O DYE LOINC : 38141-7 Pending 04/20/2017 Visit Diagnosis Plan: Vertigo of central origin, unspe cified ear Discussion: Continue meclizine at 12.5mg po BID for 2 more weeks then go to 12.5mg daily for 2 weeks then 6.25mg daily for 2 weeks then stop Notify if any symptoms return with weaning process ICD-9 : 386.2 ICD-10 : H81.49 04/01/2017 Appointment: Keily Arango [facility]Ptel[phone] [facility] [facility] 04/01/2017 Patient Education: Patient Medication Summary Completed 04/01/2017 Patient Education: Patient Medication Summary Completed 03/09/2017 Care Plan: CT HEAD/BRAIN W/O DYE LOINC : 07069-5 Pending 03/09/2017 Visit Plan: It's difficult to evaluate t his patient and level of distress. Sent to for labs: CBC, CMP, Amylase, Lipase, ESR, Cath UA CT of abdomen/pelvis w/wo contrast (IV), with oral If no abnormalities found, discussed to let us know if pain continues and vomiting continues or any change for the worse in condition. Has Ana M at home for nausea. Will await results to determine if additional medications indicated. 03/01/2017 Appointment: Emely Hdz WPtel: [address] [place], [place] [id number] ACUTE ILLNESS 03/01/2017 Patient Education: Patient Medication Summary Completed 03/01/2017 Patient Education: Patient Medication Summary Completed 12/17/2016 Visit Diagnosis Plan: Allergic rhinitis due to pollen Discussion: Continue zyrtec/singulair ICD-9 : 477.9 ICD-10 : J30.1 11/10/2016 Visit Diagnosis Plan: Acute and subacute allergic otitis media (mucoid) (sanguinous) (serous), left ear Discussion: Zithromax ICD-9 : 381.05 ICD-10 : H65.112 11/10/2016 Appointment: Keily Arango WPtel: [facility] [address] ACUTE ILLNESS 11/10/2016 Patient Education: Patient Medication Summary Completed 11/10/2016 Patient Education: Patient Medication Summary Completed 09/07/2016 Care Plan: URINALYSIS [place]O W/[place] : 73151-4 Pending 09/07/2016 Visit Diagnosis Plan: Unspecified ovarian [...] : N20.0 08/13/2016 Appointment: Keily Arango WPtel: [facility] [address] 08/12 confirmed-sp FOLLOW UP 08/13/2016 Patient Education: Patient Medication Summary Completed 08/13/2016 Patient Education: Patient Medication Summary Completed 05/19/2016 Care Plan: X-RAY EXAM OF FOOT left foot LOINC : 26 095-0 Pending 05/19/2016 Visit Plan: Discussed with Dr Arango CB C to be drawn Order sent to Will call with results 03/27/2016 [facility]ment[facility] [facility] 03/27/2016 Patient Education: Patient Medication Summary Completed 03/27/2016 Visit Plan: Go for dose of rocephin 1gm IM today and tomorrow then done Diflucan 150mg x1 today Discussed with mom via phone about urology fwup--she will talk with her and let us know 03/23/2016 Appointment: Keily Arango WPtel: [phone] [facility] 03/23 confirmed ~sl FOLLOW UP 03/23/2016 Patient Education: Patient Medication Summary Completed 03/23/2016 Visit Plan: Per Dr Arango, straight cat h for UA and culture today Ok to have a standing order for further UA needs at for straight cath Rocephin IM today and daily through Wednesday Mom has arranged a family friend that is an LEGAL REFEREE to give Wednesday and Sundays injections - rxs for rocephin and lido sent to [facility] cannot order the lido in the qty patient needs) Dr Arango wants patient to be re-evaluated on Wednesday in clinic Referral to Urology for recurrent UTIs and urinary retention - mom wants to research who she wants her sent to and let us know 03/19/2016 Appointment: [facility] [facility] 03/19/2016 Patient Education: Patient Medication Summary Completed 03/19/2016 Visit Plan: 1 more week of cefdinir 03/02/2016 Appointment: Keily Arango WPtel: [phone] [facility] 03/02 confirmed~sl WORK IN 03/02/2016 Patient [...] if worsening 02/24/2016 Appointment: Aziza Magallanes [facility] [facility] [facility] 02/24/2016 Patient Education: Patient Medication Summary Completed 02/24/2016 Care Plan: CHEST X-RAY 2VW FRONTAL&LATL LOINC : 07073-2 Pending 02/24/2016 Care Plan: X-RAY EXAM OF ABDOMEN LOINC : 52261-2 Pending 02/24/2016 Visit Plan: Repeat zithromax x1 week Cip rodex to right ear x1 week Add Pepcid q HS x2-4 weeks for total histamine blockade and for extra stomach protection while on zithromax 12/16/2015 Appointment: Keily Arango WPtel: [address] [place], [place] [id number] [place] 6/9 lm~sl 6/10 lm ~sl FOLLOW UP 12/16/2015 Patient Education: Patient Medication Summary Completed 12/16/2015 Patient Education: [facility] - Saving Auto[employer]j - Sertraline HCL - 18-64 - Dynamic Portal ID Completed 12/16/2015 Visit Plan: Saline nasal flushes prn. Ty lenol/Motrin prn headache. Notify if persists/symptoms worsens Dexamethasone given 11/12/2015 Appointment: Keily Arango WPtel[facility] [phone] [facility] [place] 5/9 lm~sl 5/10 lm~sl 5/10 confirm-sp [...] updated office visits for [facility] 10/16/2015 Appointment: ElpidioCurtisAziza [facility] [facility] [facility] 10/16/2015 Patient Education: Patient Medication Summary Completed 10/16/2015 Appointment: Elpidio Aziza [address] [facility] canceled, feeling better CANCELED 016 Visit Plan: No further abx needed [facility] restart carafate Notify if abdominal pain worsens 09/23/2015 Appointment: Keily Arango WPtel: [address] [place], [place] [phone] 09/19 confirmed-sp FOLLOW UP 09/23/2015 Patient Education: [...] [facility] since [facility] does not have in stock. Recheck [...] for now. 09/20/2015 Appointment: Aziza Magallanes [address] [facility] [facility] 09/20/2015 Patient Education: Patient Medication Summary Completed 09/20/2015 Visit Plan: Depo Medrol 40mg/ Kenalog 40 mg IM today Resume Ciprodex otic gtts. bid to Rt. ear 09/10/2015 Appointment: Bibiana Garg WPtel: [phone] [facility] [place] 09/08 confirmed-sp ACUTE ILLNESS 09/10/2015 Patient Education: Patient Medication Summary Completed 09/10/2015 Visit Plan: Increase Protonix to 40mg po BID for 1month Continue carafate at q AC dosing for full month then wean off Jevity for 2 more days then advance diet if able Continue current meds 08/21/2015 Appointment: Keily Arango WPtel: [phone] [facility] NEW PATIENT 08/21/2015 Patient Education: Patient Medication [...] standing order for further UA needs at [facility] for straight cath Rocephin IM today and daily through Wednesday Mom has arranged a family friend that is an LEGAL REFEREE to give Wednesday and Sundays injections - [...] No further abx needed Go back to [facility] for next 3 days and [...] [facility] since [facility] does not have in [...]
--- OUTSIDE RECORDS SUMMARY | 2019-11-10 19:37 | XMS REPORT | CCD ---
Author Author Belkys Arango D.O. Organization [facility] Address [address] [place] [address] Phone Care Team Providers Care Gang Supervisor Name Role Phone Keily Arango D.O., PP Unavailable CCM Unavailable Summary Purpose Interface Exchange Insurance Providers Payer name Policy type / Coverage type Covered libertarian ID Effective Begin Date Effective End Date [employer] [facility] [place] Medicaid [id number] U nknown Family History Family History data not found Social History Social History Element Codes Description Effective Dates Marital status Unknown Single 08/21/2015 Employment Unknown Currently unemployed Physically handicapped 08/21/[address]: 408931157 Has never smoked or chewed tobacco 08/21/[address]: 172553776 Never drinks alcohol 2015 Allergies, Adverse Reactions, [...] Start Date Stop Date Status Fill Instructions diazepam 10 mg tablet RxNorm: 115792 TAKE 1 TABLET BY M OUTH EVERY NIGHT AT BEDTIME NEEDED 09/11/2019 10/10/2019 Active meclizine 12.5 mg tablet RxNorm: 492680 TAKE 1 TABLET B Y MOUTH THREE TIMES DAILY NEEDED 08/31/2019 10/29/2019 Active Ciprodex 0.3 %-0.1 % ear drops,suspension RxNorm: 430033 SHAKE LIQUID AND INSTILL 4 DROPS IN AFFECTED EAR(S) TWICE DAILY 08/31/2019 09/07/2019 I nactive Ciprodex 0.3 %-0.1 % ear drops,suspension RxNorm: 035493 SHAKE LIQUID AND INSTILL 4 DROPS IN AFFECTED EAR(S) TWICE DAILY 08/11/2019 08/18/2019 I nactive meclizine 12.5 mg tablet RxNorm: 672251 TAKE 1 TABLET B Y MOUTH THREE TIMES DAILY NEEDED 08/04/2019 08/30/2019 Inactive cefdinir 250 mg/5 mL oral suspension RxNorm: 307553 12 Milliliter(s) Oral QD though PEG tube 07/25/2019 08/03/2019 Inactive Zenpep 40,000 unit-126,000 unit-168,000 unit capsule,d elayed release RxNorm: 2629815 1 Capsule(s) Oral AC 07/10/2019 11/06/2019 Active famotidine 20 mg tablet RxNorm: 969067 TAKE 1 TABLET BY MOUTH EVERY NIGHT AT BEDTIME 07/09/2019 01/04/2020 Active sertraline 50 mg tablet RxNorm: 488478 TAKE 1 TABLET BY MOUTH EVERY NIGHT AT BEDTIME 07/09/2019 09/06/2019 Inactive Zenpep 40,000 unit-126,000 unit-168,000 unit capsule,d elayed release RxNorm: 8290231 1 Capsule(s) Oral AC 06/12/2019 07/09/2019 Inactive Zenpep 40,000 unit-126,000 unit-168,000 unit capsule,d elayed release RxNorm: 0892736 1 Capsule(s) Oral AC 05/24/2019 05/23/2019 Inactive Zenpep 40,000 unit-126,000 unit-168,000 unit capsule,d elayed release RxNorm: 4880993 1 Capsule(s) Oral AC 05/24/2019 06/11/2019 Inactive Ciprodex 0.3 %-0.1 % ear drops,suspension RxNorm: 535861 DROP(S) 4 DROP(S) OTIC BID 05/22/2019 06/18/2019 Inactive oxcarbazepine 300 mg/5 mL (60 mg/mL) oral suspension RxNorm: 961240 15 Milliliter(s) Oral two times a day 05/08/2019 11/03/2019 Active meclizine 12.5 mg tablet RxNorm: 450804 1 TABLET(S) PO TID NEEDE D 05/05/2019 08/02/2019 Inactive change in quantity Zithromax 200 mg/5 mL oral suspension RxNorm: 114642 12.5 Dilcia liter(s) Oral QD 05/04/2019 05/09/2019 Inactive amoxicillin 400 mg/5 mL oral suspension RxNorm: 005076 10 Milliliter(s) Oral two times a day 05/03/2019 05/13/2019 Inactive Singulair 10 mg tablet RxNorm: 518215 1 TABLET(S) PO QD 03/28/2019 Active Macrobid 100 mg capsule RxNorm: 839672 1 Capsule(s) PO BID 03/16/2003/22/2019 Inactive meclizine 12.5 mg tablet RxNorm: 148070 1 Tablet(s) PO TID as neede d 03/10/2019 05/04/2019 Inactive change in quantity Ciprodex 0.3 %-0.1 % ear drops,suspension RxNorm: 722278 DROP(S) 4 DROP(S) OTIC BID 03/08/2019 04/04/2019 Inactive oxcarbazepine 300 mg/5 mL (60 mg/mL) oral suspension RxNorm: 723235 15 Milliliter(s) PO BID 03/07/2019 05/07/2019 Inactive Macrobid 100 mg capsule RxNorm: 997583 1 Capsule(s) PO BID 02/21/2003/01/2019 Inactive Macrobid 100 mg capsule RxNorm: 924222 1 Capsule(s) PO BID 02/21/2002/19/2019 Inactive meclizine 12.5 mg tablet RxNorm: 910207 1 Tablet(s) PO TID as neede d 02/06/2019 03/07/2019 Inactive change in quantity Ciprodex 0.3 %-0.1 % ear drops,suspension RxNorm: 567288 DROP(S) 4 DROP(S) OTIC BID 01/30/2019 02/12/2019 Inactive diazepam 10 mg tablet RxNorm: 926561 1 Tablet(s) PO QHS as needed 0 01/27/2019 09/10/2019 Inactive sertraline 50 mg tablet RxNorm: 178535 1 Tablet(s) PO QHS 12/29/2018 06/26/2019 Inactive famotidine 20 mg tablet RxNorm: 981925 1 Tablet(s) PO QHS 12/29/2018 06/26/2019 Inactive Ciprodex 0.3 %-0.1 % ear drops,suspension RxNorm: 930749 DROP(S) 4 DROP(S) OTIC BID 12/14/2018 12/27/2018 Inactive Generlac 10 gram/15 mL oral solution RxNorm: 902564 15 Milliliter(s) PO TWO TO THREE TIMES DAILY 12/06/2018 06/03/2019 Inactive Protonix 40 mg tablet,delayed release RxNorm: 838660 1 Tablet(s) PO or per feeding tube BID 11/24/2018 05/22/2019 Inactive meclizine 12.5 mg tablet RxNorm: 277483 1 Tablet(s) PO TID as neede d 11/11/2018 02/06/2019 Inactive change in quantity Ciprodex 0.3 %-0.1 % ear drops,suspension RxNorm: 351036 DROP(S) 4 DROP(S) OTIC BID 11/08/2018 11/21/2018 Inactive diazepam 10 mg tablet RxNorm: 123557 1 Tablet(s) PO QHS as needed 0 10/21/2018 11/19/2018 Inactive Generlac 10 gram/15 mL oral solution RxNorm: 519080 Mil liliter(s) 15 MILLILITER(S) PO TWO TO THREE TIMES DAILY 10/07/2018 11/05/2018 Inacti ve Ciprodex 0.3 %-0.1 % ear drops,suspension RxNorm: 204370 DROP(S) DROP(S) 4 DROP(S) OTIC BID 08/26/2018 03/15/2019 Inactive meclizine 12.5 mg tablet RxNorm: 890497 1 TABLET(S) PO TID NEEDE D 07/25/2018 10/22/2018 Inactive change in quantity oxcarbazepine 300 mg/5 mL (60 mg/mL) oral suspension RxNorm: 164729 15 Milliliter(s) PO BID 07/08/2018 07/07/2018 Inactive oxcarbazepine 300 mg/5 mL (60 mg/mL) oral suspension RxNorm: 829570 15 Milliliter(s) PO BID 07/08/2018 01/03/2019 Inactive sertraline 50 mg tablet RxNorm: 394206 1 TABLET(S) PO QHS 07/06/2018 12/28/2018 Inactive Singulair 10 mg tablet RxNorm: 917140 1 TABLET(S) PO QD 06/24/2018 Inactive Ciprodex 0.3 %-0.1 % ear drops,suspension RxNorm: 848362 DROP(S) 4 DROP(S) OTIC BID 06/20/2018 06/19/2018 Inactive Ciprodex 0.3 %-0.1 % ear drops,suspension RxNorm: 274896 Drop(s) DROP(S) 4 DROP(S) OTIC BID 06/20/2018 07/03/2018 Inactive cefdinir 250 mg/5 mL oral suspension RxNorm: 023346 12 Milliliter(s) PO QD though PEG tube 06/13/2018 06/22/2018 Inactive famotidine 20 mg tablet RxNorm: 334037 1 Tablet(s) PO QHS 05/31/2018 11/26/2018 Inactive famotidine 40 mg/5 mL (8 mg/mL) oral suspension RxNorm: 3102 74 2.5 Milliliter(s) PO QHS 04/29/2018 06/12/2018 Inactive meclizine 12.5 mg tablet RxNorm: 065335 1 TABLET(S) PO TID NEEDE D 04/25/2018 07/23/2018 Inactive change in quantity Generlac 10 gram/15 mL oral solution RxNorm: 503267 Mil liliter(s) 15 MILLILITER(S) PO TWO TO THREE TIMES DAILY 04/04/2018 05/03/2018 Inacti ve Ciprodex 0.3 %-0.1 % ear drops,suspension RxNorm: 142521 Drop(s) 4 DROP(S) OTIC BID 04/04/2018 04/17/2018 Inactive diazepam 10 mg tablet RxNorm: 358631 1 Tablet(s) PO QHS as needed 1 05/03/2018 Inactive famotidine 40 mg/5 mL (8 mg/mL) oral suspension RxNorm: 3102 74 2.5 Milliliter(s) PO QHS 04/04/2018 04/28/2018 Inactive Generlac 10 gram/15 mL oral solution RxNorm: 170977 15 MILLILITER(S) PO TWO TO THREE TIMES DAILY 03/24/2018 04/03/2018 Inactive Singulair 10 mg tablet RxNorm: 496234 1 TABLET(S) PO QD 03/18/2018 Inactive Ciprodex 0.3 %-0.1 % ear drops,suspension RxNorm: 519294 Drop(s) 4 DROP(S) OTIC BID 03/08/2018 03/21/2018 Inactive Generlac 10 gram/15 mL oral solution RxNorm: 493976 15 Milliliter(s) PO two to three times daily 03/03/2018 03/23/2018 Inactive meclizine 12.5 mg tablet RxNorm: 681435 1 Tablet(s) PO TID as neede d 02/10/2018 04/10/2018 Inactive change in quantity meclizine 12.5 mg tablet RxNorm: 888381 1 Tablet(s) PO BID as neede d 02/07/2018 02/09/2018 Inactive change in quantity Ciprodex 0.3 %-0.1 % ear drops,suspension RxNorm: 470336 Drop(s) 4 DROP(S) OTIC BID 02/02/2018 03/08/2018 Inactive sertraline 50 mg tablet RxNorm: 221855 1 TABLET(S) PO QHS 01/25/2018 07/05/2018 Inactive Zithromax 200 mg/5 mL oral suspension RxNorm: 659253 12.5 Dilcia liter(s) PO QD 12/31/2017 01/04/2018 Inactive Pepcid 20 mg tablet RxNorm: 163676 TABLET(S) 1 TABLET(S) PO QHS 04/29/2018 Inactive famotidine 40 mg/5 mL (8 mg/mL) oral suspension RxNorm: 3102 74 2.5 Milliliter(s) PO QHS 12/28/2017 12/27/2017 Inactive famotidine 40 mg/5 mL (8 mg/mL) oral suspension RxNorm: 3102 74 2.5 Milliliter(s) PO QHS 12/28/2017 04/03/2018 Inactive Ciprodex 0.3 %-0.1 % ear drops,suspension RxNorm: 390101 Drop(s) 4 DROP(S) OTIC BID 12/27/2017 02/02/2018 Inactive meclizine 12.5 mg tablet RxNorm: 720271 1 Tablet(s) PO BID as neede d 12/23/2017 02/06/2018 Inactive change in quantity Protonix 40 mg tablet,delayed release RxNorm: 219940 1 Tablet(s) PO or per feeding tube BID 12/16/2017 07/13/2018 Inactive oxcarbazepine 300 mg/5 mL (60 mg/mL) oral suspension RxNorm: 751748 15 Milliliter(s) PO BID 12/16/2017 07/08/2018 Inactive meclizine 12.5 mg tablet RxNorm: 065442 1 Tablet(s) PO BID as neede d 12/15/2017 02/07/2018 Inactive change in quantity Pepcid 40 mg/5 mL (8 mg/mL) oral suspension RxNorm: 328254 5 Milliliter(s) PO QHS to replace nighttime pantoprazole dose 12/14/2017 12/27/2017 Inact марина meclizine 12.5 mg tablet RxNorm: 362985 1 Tablet(s) PO BID as neede d 12/13/2017 12/23/2017 Inactive diazepam 10 mg tablet RxNorm: 032865 1 Tablet(s) PO QHS as needed 0 12/02/2017 03/01/2018 Inactive prednisolone 15 mg/5 mL oral solution RxNorm: 209191 5 Milliliter(s) PO BID for 3 days then 5ml daily for 3 days then 2.5ml daily for 3 days 12/02/2017 12/13/2017 Inactive sertraline 50 mg tablet RxNorm: 440721 1 Tablet(s) PO QHS 11/04/2017 01/24/2018 Inactive Ciprodex 0.3 %-0.1 % ear drops,suspension RxNorm: 253925 Drop(s) 4 DROP(S) OTIC BID 10/18/2017 10/31/2017 Inactive Ciprodex 0.3 %-0.1 % ear drops,suspension RxNorm: 891263 Drop(s) 4 DROP(S) OTIC BID 10/18/2017 12/27/2017 Inactive Singulair 10 mg tablet RxNorm: 347597 1 Tablet(s) PO QD 09/30/2017 Inactive diazepam 5 mg/5 mL (1 mg/mL) oral solution RxNorm: 609778 2.5 Milliliter(s) PO QD give additional 5 mg dose if seizure occurs 09/17/2017 No Stop Date A ctive Bactrim DS 800 mg-160 mg tablet RxNorm: 783537 1 Tablet(s) PO BID 0 09/17/2017 09/23/2017 Inactive Ciprodex 0.3 %-0.1 % ear drops,suspension RxNorm: 198701 4 DROP (S) OTIC BID 09/13/2017 10/18/2017 Inactive cefdinir 250 mg/5 mL oral suspension RxNorm: 711908 12 Milliliter(s) PO QD though PEG tube 08/06/2017 08/15/2017 Inactive sertraline 50 mg tablet RxNorm: 771672 1 Tablet(s) PO QHS 08/02/2017 11/04/2017 Inactive Ciprodex 0.3 %-0.1 % ear drops,suspension RxNorm: 636512 4 DROP (S) OTIC BID 07/22/2017 08/11/2017 Inactive Singulair 10 mg tablet RxNorm: 896518 1 Tablet(s) PO QD 06/30/2017 Inactive diazepam 10 mg tablet RxNorm: 517629 TAKE 1 TABLET BY M OUTH EVERY NIGHT AT BEDTIME NEEDED 06/04/2017 07/03/2017 Inactive oxcarbazepine 300 mg/5 mL (60 mg/mL) oral suspension RxNorm: 195108 15 MILLILITER(S) PO BID 05/03/2017 12/16/2017 Inactive sertraline 50 mg tablet RxNorm: 539417 1 Tablet(s) PO QHS 05/03/2017 08/02/2017 Inactive Protonix 40 mg tablet,delayed release RxNorm: 652816 1 Tablet(s) PO or per feeding tube BID 04/26/2017 12/16/2017 Inactive Ciprodex 0.3 %-0.1 % ear drops,suspension RxNorm: 477722 4 DROP (S) OTIC BID 04/26/2017 05/23/2017 Inactive Generlac 10 gram/15 mL oral solution RxNorm: 092059 Mil liliter(s) TAKE 15 ML BY MOUTH TWO-THREE TIMES DAILY 04/08/2017 03/03/2018 Inactive Singulair 10 mg tablet RxNorm: 395347 1 Tablet(s) PO QD 03/03/2017 Inactive diazepam 10 mg tablet RxNorm: 252047 1 Tablet(s) PO QHS as needed 0 02/15/2017 06/04/2017 Inactive Singulair 10 mg tablet RxNorm: 397584 1 Tablet(s) PO QD 12/01/2016 Inactive Diflucan 150 mg tablet RxNorm: 401053 Tablet(s) Give 1 tab PO now and then repeat dose in 5 days 11/10/2016 03/31/2017 Inactive Zithromax 200 mg/5 mL oral suspension RxNorm: 365720 12.5 Dilcia liter(s) PO QD 11/10/2016 11/14/2016 Inactive Singulair 10 mg tablet RxNorm: 444465 TAKE 1 TABLET BY MOUTH ON CE DAILY 11/02/2016 12/01/2016 Inactive diazepam 10 mg tablet RxNorm: 238361 TAKE 1 TABLET BY M OUTH EVERY NIGHT AT BEDTIME NEEDED 10/21/2016 11/19/2016 Inactive sertraline 50 mg tablet RxNorm: 919830 1 Tablet(s) PO QHS 10/12/2016 01/09/2017 Inactive fluconazole 100 mg tablet RxNorm: 124086 1 Tablet(s) PO QD 09/23/19 17 09/24/2016 Inactive fluconazole 100 mg tablet RxNorm: 848654 1 Tablet(s) PO QD 09/23/19 17 09/21/2016 Inactive Bactrim DS 800 mg-160 mg tablet RxNorm: 415906 1 Tablet(s) PO BID 0 09/10/2016 09/09/2016 Inactive Bactrim DS 800 mg-160 mg tablet RxNorm: 619337 1 Tablet(s) PO BID 0 09/10/2016 09/16/2016 Inactive oxcarbazepine 300 mg/5 mL (60 mg/mL) oral suspension RxNorm: 521428 15 Milliliter(s) PO BID 09/07/2016 03/05/2017 Inactive sertraline 50 mg tablet RxNorm: 765735 1 Tablet(s) PO QHS 07/06/2016 10/03/2016 Inactive Pepcid 20 mg tablet RxNorm: 251200 Tablet(s) 1 TABLET(S) PO QHS 08/201603/08/2017 Inactive sertraline 50 mg tablet RxNorm: 711853 1 Tablet(s) PO QHS 06/08/2016 05/03/2017 Inactive Generlac 10 gram/15 mL oral solution RxNorm: 781165 Mil liliter(s) TAKE 15 ML BY MOUTH TWO-THREE TIMES DAILY 06/08/2016 09/08/2016 Inactive Pepcid 20 mg tablet RxNorm: 361835 1 TABLET(S) PO QHS 06/04/201607/2016 Inactive fluconazole 100 mg tablet RxNorm: 559432 1 Tablet(s) QD through PEG tube 05/13/2016 12/01/2017 Inactive Diflucan 150 mg tablet RxNorm: 800472 Give 1 tab PO now and then repeat dose in 5 days 03/19/2016 11/09/2016 Inactive ceftriaxone 1 gram solution for injection RxNorm: 6453540 1 Gram(s) IM QD Wednesday and Wednesday03/19/2016 11/09/2016 Inactive lidocaine 10 mg/mL (1 %) injection solution RxNorm: 7195474 Use as directed to reconstitute Rocephin when needed 03/19/2016 12/13/2017 Inactive Generlac 10 gram/15 mL oral solution RxNorm: 873501 JOE E 15 ML BY MOUTH TWO- THREE TIMES DAILY 03/19/2016 06/07/2016 Inactive oxcarbazepine 300 mg/5 mL oral suspension RxNorm: 281406 15 Milliliter(s) PO BID 03/13/2016 09/07/2016 Inactive Ciprodex 0.3 %-0.1 % ear drops,suspension RxNorm: 656977 4 DROP (S) OTIC BID 03/09/2016 03/15/2016 Inactive cefdinir 250 mg/5 mL oral suspension RxNorm: 724128 11. 75 Milliliter(s) PO QD though PEG tube 03/02/2016 03/08/2016 Inactive cefdinir 250 mg/5 mL oral suspension RxNorm: 003790 11. 75 Milliliter(s) PO QD though PEG tube 02/24/2016 03/01/2016 Inactive cefdinir 250 mg/5 mL oral suspension RxNorm: 035217 11. 75 Milliliter(s) PO QD though PEG tube 02/24/2016 02/23/2016 Inactive Ciprodex 0.3 %-0.1 % ear drops,suspension RxNorm: 226933 4 Drop (s) OTIC BID 02/24/2016 03/01/2016 Inactive Generlac 10 gram/15 mL oral solution RxNorm: 063015 JOE E 15 ML BY MOUTH TWICE DAILY 02/17/2016 03/18/2016 Inactive Generlac 10 gram/15 mL oral solution RxNorm: 281997 15 Millilit er(s) PO BID 01/23/2016 02/16/2016 Inactive Pepcid 20 mg tablet RxNorm: 150426 1 TABLET(S) PO QHS 01/13/201605/07 Inactive Ciprodex 0.3 %-0.1 % ear drops,suspension RxNorm: 071243 4 Drop (s) OTIC BID 12/23/2015 12/29/2015 Inactive sertraline 50 mg tablet RxNorm: 367573 1 Tablet(s) PO QHS 12/16/2015 06/07/2016 Inactive Zithromax 500 mg tablet RxNorm: 614818 1 Tablet(s) PO QD 12/16/2015 0 12/22/2015 Inactive Pepcid 20 mg tablet RxNorm: 556902 1 Tablet(s) PO QHS 12/16/201501/02 Inactive Zithromax 500 mg tablet RxNorm: 942045 1 Tablet(s) PO QD 11/12/2015 0 11/18/2015 Inactive Singulair 10 mg tablet RxNorm: 441694 1 Tablet(s) PO BID 10/16/2015 0 11/11/2015 Inactive diazepam 10 mg tablet RxNorm: 752639 1 Tablet(s) PO QHS 10/07/2015 Inactive diazepam 10 mg tablet RxNorm: 757311 1 Tablet(s) PO QHS 10/07/2015 Inactive fexofenadine 30 mg/5 mL oral suspension RxNorm: 427903 10 Milliliter(s) PO one to two times daily PRN allergies 09/20/2015 12/15/2015 Inactive ceftriaxone 1 gram solution for injection RxNorm: 1991762 1 Gram (s) IM QD 09/20/2015 09/21/2015 Inactive Ciprodex 0.3 %-0.1 % ear drops,suspension RxNorm: 932353 4 Drop (s) OTIC BID 09/20/2015 10/03/2015 Inactive Protonix 40 mg tablet,delayed release RxNorm: 426009 1 Tablet(s) PO or per feeding tube BID 08/21/2015 12/18/2015 Inactive Carafate 100 mg/mL oral suspension RxNorm: 005568 10 Mi lliliter(s) Miscellaneous per feeding tube AC & HS 08/21/2015 09/19/2015 Inactive Zyrtec 10 mg tablet RxNorm: 0821348 1 Tablet(s) PO QD No Start Date Active diazepam 20 mg rectal kit RxNorm: 097402 RTL as needed No Start Date Active Lortab Elixir 10 mg-300 mg/15 mL oral solution RxNorm: 82844 45 8 PO Q6-8H as needed No Start Date Active ondansetron HCl 4 mg/5 mL oral solution RxNorm: 282912 10 Milliliter(s) PO as needed and through tube No Start Date Active sertraline 50 mg tablet RxNorm: 209286 1 Tablet(s) PO QD No Start D ate 12/15/2015 Inactive Brittany 180 mg tablet RxNorm: 451321 1 Tablet(s) PO QD No Start Date 06/12/2018 Inactive Generlac 10 gram/15 mL oral solution RxNorm: 378087 15 Millilit er(s) PO BID No Start Date 01/22/2016 Inactive oxcarbazepine 300 mg/5 mL oral suspension RxNorm: 036433 13.5 Milliliter(s) PO QAM and 15ml in the evening No Start Date 12/15/2015 Inactive Singulair 10 mg tablet RxNorm: 783609 1 Tablet(s) PO QD No Start Da te 11/30/2016 Inactive meclizine 12.5 mg tablet RxNorm: 578625 1 Tablet(s) PO TID as needed for dizziness No Start Date 09/13/2017 Inactive meclizine 12.5 mg tablet RxNorm: 463073 1 Tablet(s) PO BID No Start Date 12/12/2017 Inactive fluconazole 100 mg tablet RxNorm: 168030 1 Tablet(s) QD through PEG tube No Start Date 05/12/2016 Inactive Flomax 0.4 mg capsule RxNorm: 607009 1 Capsule(s) PO QD No Start Da te 06/12/2018 Inactive diazepam 10 mg tablet RxNorm: 656839 1 Tablet(s) PO QHS as needed N o Start Date 02/14/2017 Inactive Generlac 10 gram/15 mL oral solution RxNorm: 523548 15 Milliliter(s) PO two to three times daily No Start Date 03/02/2018 Inactive oxcarbazepine 300 mg/5 mL oral suspension RxNorm: 271633 15 Milliliter(s) PO BID No Start Date 12/15/2017 Inactive Medication Administered No Medication Administered data Immunizations Vaccine Codes Date Status Influenza CVX: 141 04/21/2019 Results No Results data Procedures Procedure Codes Date DEXAMETHASONE SODIUM PHOS CPT-4: J1100 05/03/2019 THER/PROPH/DIAG INJ SC/IM CPT-4: 53732 05/03/2019 CEFTRIAXONE SODIUM INJECTION CPT-4: J0696 03/19/2016 THER/PROPH/DIAG INJ SC/IM CPT-4: 08651 03/19/2016 DEXAMETHASONE SODIUM PHOS CPT-4: J1100 11/12/2015 THER/PROPH/DIAG INJ SC/IM CPT-4: 48885 11/12/2015 CEFTRIAXONE SODIUM INJECTION CPT-4: J0696 09/20/2015 THER/PROPH/DIAG INJ SC/IM CPT-4: 31835 09/20/2015 THER/PROPH/DIAG INJ SC/IM CPT-4: 03434 09/10/2015 METHYLPREDNISOLONE 40 MG INJ CPT-4: J1030 09/10/2015 TRIAMCINOLONE ACET INJ NOS CPT-4: J3301 09/10/2015 Vital Signs Date Vital 07/25/2019 Blood Pressure 1: 116/80 Code: 8480-6 BMI: 23.2 Code: 25659-5 Heart Rate 1: 81 bpm Height: 4'5" Respiratory Rate: 16 bpm SpO2: 100% Tempera ture: 36.8 (C) / 98.2 (F) Weight: 92 lbs 06/12/2019 Blood Pressure 1: 112/74 Code: 8480-6 BMI: 23.2 Code: 95892-9 Heart Rate 1: 102 bpm Height: 4'5" [...] 1: 114/70 Code: 8480-6 BMI: 23.1 Code: 28904-9 Heart Rate 1: 80 bpm Height: 4'6" [...] visit Encounters Encounter Performer Location Codes Date ([id number]) OFFICE/OUTPATIENT VISIT EST Diagnosis: Sinusitis[ICD10: J32.9] Fatou Jemima [facility] CPT-4: 17223 07/25/2019 ([id number]) PREV VISIT EST AGE 18-39 Diagnosis: Encounter for general adult medical examination with abnormal findings[ICD10: Z00.01] Diagnosis: Chronic pancreatitis[ICD10: K86.1] Diagnosis: Cerebral palsy, unspecified[ICD10: G80.9] Keilykatie ARANGO [facility] CPT-4: 31550 06/12/2019 ([id number]) OFFICE/OUTPATIENT VISIT EST Diagnosis: Pneumonia, organism unspecified[ICD10: J18.9] Diagnosis: Breast mass, right[ICD10: N63.10] Keily [facility]ANGO [facility] CPT-4: 72590 05/08/2019 ([id number]) OFFICE/OUTPATIENT VISIT EST Diagnosis: Allergic rhinitis due to pollen[ICD10: J30.1] Diagnosis: Otitis media, unspecified, right ear[ICD10: H66.91] Fatou [facility]ANGO [facility] CPT-4: 37087 05/03/2019 ([id number]) OFFICE/OUTPATIENT VISIT EST Diagnosis: Irritability and anger[ICD10: R45.4] Nataliia ARANGO [facility] CPT-4: 89846 11/25/2018 ([id number]) OFFICE/OUTPATIENT VISIT EST Diagnosis: Acute suppurative otitis media without spontaneous rupture of ear drum, bilateral[ICD10: H66.003] Fatou ARANGO [facility] CPT-4: 56151 06/13/2018 ([id number]) OFFICE/OUTPATIENT VISIT EST Diagnosis: Other fatigue[ICD10: R53.83] Diagnosis: Anuria and oliguria[ICD10: R34] Diagnosis: Acute gastritis without bleeding[ICD10: K29.00] Fatou [facility]ANGO [facility] CPT-4: 57098 01/04/2018 ([id number]) OFFICE/OUTPATIENT VISIT EST Diagnosis: Acute bronchitis, unspecified[ICD10: J20.9] Fatou [facility]ANGO [facility] CPT-4: 20247 12/31/2017 ([id number]) PREV VISIT EST AGE 18-39 Diagnosis: Encounter for general adult medical examination without abnormal findings[ICD10: Z00.00] Diagnosis: Severe intellectual disabilities[ICD10: F72] Diagnosis: Allergic rhinitis due to pollen[ICD10: J30.1] Diagnosis: Epilepsy, unspecified, intractable, without status epilepticus[ICD10: G40.919] Diagnosis: Gastro-esophageal reflux disease without esophagitis[ICD10: K21.9] Keily ARANGO [facility] CPT-4: 17543 12/14/2017 ([id number]) OFFICE/OUTPATIENT VISIT EST Diagnosis: Allergic rhinitis due to pollen[ICD10: J30.1] Diagnosis: Epilepsy, unspecified, intractable, without status epilepticus[ICD10: G40.919] [facility]: 635[facility] 12/02/2017 ([id number]) OFFICE/OUTPATIENT VISIT EST Diagnosis: Other allergic rhinitis[ICD10: J30.89] Fatou ARANGO [facility] CPT-4: 80828 10/12/2017 OFFICE/OUTPATIENT VISIT EST Diagnosis: Acute suppurative otitis media without spontaneous rupture of ear drum, recurrent, left ear[ICD10: H66.005] Diagnosis: Epilepsy, unspecified, intractable, without status epilepticus[ICD10: G40.919] Diagnosis: Hesitancy of micturition[ICD10: R39.11] Fatou ARANGO [facility] CPT-4: 11401 09/17/2017 OFFICE/OUTPATIENT VISIT EST Diagnosis: Otitis media, unspecified, left ear[ICD10: H66.92] Fatou ARANGO [facility] CPT-4: 53532 08/06/2017 ([id number]) OFFICE/OUTPATIENT VISIT EST Diagnosis: Vertigo of central origin, 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.49] Diagnosis: Dizziness and giddiness[ICD10: R42] [facility] 17813 04/01/2017 OFFICE/OUTPATIENT VISIT EST Diagnosis: Vomiting, unspecified[ICD10: R11.10] Diagnosis: 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)[ICD10: K56.5] Diagnosis: Personal history of urinary calculi[ICD10: Z87.442] Emely Hdz KEILY ARANGO [facility] CPT-4: 18922 03/01/2017 ([id number]) OFFICE/OUTPATIENT VISIT EST Diagnosis: Allergic rhinitis due to pollen[ICD10: J30.1] Diagnosis: Acute and subacute allergic otitis media (mucoid) (sanguinous) (serous), left ear[ICD10: H65.112] Keily [facility] CPT-4: 46307 11/10/2016 ([id number]) OFFICE/OUTPATIENT VISIT EST Diagnosis: 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] Diagnosis: Unspecified ovarian cyst, right side[ICD10: N83.201] Diagnosis: Cyst of kidney, 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] [facility] CPT-4: 34684 08/13/2016 ([id number]) OFFICE/OUTPATIENT VISIT EST Diagnosis: Rash and other nonspecific skin eruption[ICD10: R21] Aziza Magallanes [facility] CPT-4: 26306 03/27/2016 ([id number]) OFFICE/OUTPATIENT VISIT EST Diagnosis: Urinary tract infection, site not specified[ICD10: N39.0] [facility] CPT-4: 97420 03/23/2016 ([id number]) OFFICE/OUTPATIENT VISIT EST Diagnosis: Retention of urine, unspecified[ICD10: R33.9] Diagnosis: Dysuria[ICD10: R30.0] Diagnosis: Constipation, unspecified[ICD10: K59.00] Aziza LAWTON Diamante [facility] CPT-4: 94700 03/19/2016 ([id number]) OFFICE/OUTPATIENT VISIT EST Diagnosis: Acute sinusitis, unspecified[ICD10: J01.90] Keily [facility] CPT-4: 70173 03/02/2016 OFFICE/OUTPATIENT VISIT EST Diagnosis: Other fatigue[ICD10: R53.83] Diagnosis: Retention of urine, unspecified[ICD10: R33.9] Diagnosis: Dysuria[ICD10: R30.0] Diagnosis: Generalized abdominal pain[ICD10: R10.84] 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] Aziza Elpidio [facility] CPT-4: 18011 02/24/2016 ([id number]) OFFICE/OUTPATIENT VISIT EST Diagnosis: Chronic mucoid otitis media, right ear[ICD10: H65.31] Diagnosis: Allergic rhinitis, unspecified[ICD10: J30.9] Diagnosis: 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] Keily ARANGO [facility] CPT-4: 71457 12/16/2015 ([id number]) OFFICE/OUTPATIENT VISIT EST Diagnosis: Allergic rhinitis, unspecified[ICD10: J30.9] Diagnosis: Acute recurrent sinusitis, unspecified[ICD10: J01.91] Keily ARANGO [facility] CPT-4: 58812 11/12/2015 ([id number]) OFFICE/OUTPATIENT VISIT EST Diagnosis: Other seasonal allergic rhinitis[ICD10: J30.2] Diagnosis: Nausea with vomiting, unspecified[ICD10: R11.2] Diagnosis: Epigastric pain[ICD10: R10.13] Aziza [facility] CPT-4: 86023 10/16/2015 OFFICE/OUTPATIENT VISIT EST Diagnosis: Encounter for follow-up examination after completed treatment for conditions other than malignant neoplasm[ICD10: Z09] Diagnosis: Generalized abdominal pain[ICD10: R10.84] Keily [facility] CPT-4: 65091 09/23/2015 ([id number]) OFFICE/OUTPATIENT VISIT EST Diagnosis: Otitis media, unspecified, right ear[ICD10: H66.91] Diagnosis: Constipation, unspecified[ICD10: K59.00] Diagnosis: Allergic rhinitis, unspecified[ICD10: J30.9] Aziza [facility] CPT-4: 47801 09/20/2015 OFFICE/OUTPATIENT VISIT EST Diagnosis: Allergic rhinitis, unspecified[ICD10: J30.9] Diagnosis: Unspecified perforation of tympanic membrane, right ear[ICD10: H72.91] Bibiana Garg KEILY [facility] CPT-4: 12816 09/10/2015 OFFICE/OUTPATIENT VISIT NEW Diagnosis: Epilepsy, unspecified, intractable, without status epilepticus[ICD10: G40.919] Diagnosis: Gastric ulcer, unspecified as acute or chronic, without hemorrhage or perforation[ICD10: K25.9] Diagnosis: Severe intellectual disabilities[ICD10: F72] Keily ARANGO DO [facility] CPT-4: 96378 08/21/2015 Plan of Care Planned Activity Notes Codes Status Date Visit Diagnosis Plan: Sinusitis Discussion: due to [facility] of illness and symptoms, cefdinir prescribed to take as directed. call office with any new or worsening symptoms. ICD-9 : 473.9 ICD-10 : J32.9 07/25/2019 Appointment: Fatou Onofre [address] [place] [address] ACUTE ILLNESS 07/25/2019 Patient Education: cefdinir- [employer] Coupon [id number] https://www.[employer]/samplemd/resources/getResource/61/fw8o7tet-6383-4180-3d Completed 07/25/2019 Visit Diagnosis Plan: Chronic pancreatitis Discussion: Continue zenpep and recheck CMP with amylase/lipase in 1 month ICD-9 : 577.1 ICD-10 : K86.1 06/12/2019 Appointment: Keily Arango WPtel: [address] [place] [address] Annual Well Visit 06/12/2019 Visit Diagnosis Plan: [...] : J18.9 05/08/2019 Appointment: Keily Arango WPtel: [address] [place] [address] Hospital Follow Up 05/08/2019 Visit Diagnosis Plan: [...] ICD-10 : H66.91 05/03/2019 Appointment: Fatou Onofre [address] [place], [place] [id number] ACUTE ILLNESS 05/03/2019 Patient Education: amoxicillin- Opt[employer] Coupon [id number] https://www.[employer]/samplemd/resources/getResource/61/[email or web address] Completed 05/03/2019 Visit Diagnosis Plan: Irritability and [...] 11/25/2018 Appointment: Nataliia Hsieh [facility] ACUTE ILLNESS 11/25/2018 Visit Diagnosis Plan: Acute suppurative otitis media without spontaneous rupture of ear drum, bilateral Discussion: cefdinir for 10 days. if wor sening symptoms later this week, call clinic. push fluids and tylenol/ibuprofen prn pain or fever. ICD-9 : 382.00 ICD-10 : H66.003 06/13/2018 Appointment: Fatou Onofre [address] [place], [place] [id number] ACUTE ILLNESS 06/13/2018 Visit Diagnosis Plan: Anuria [...] ICD-10 : K29.00 01/04/2018 Appointment: Fatou Onofre [address] [place] [address] ACUTE ILLNESS 01/04/2018 Patient Education: Patient Medication Summary Completed 01/04/2018 Visit Diagnosis Plan: Acute bronchitis, unspecified Di scussion: zithromax prescribed to take as directed. continue with allergy meds including flonase to help dry congestion. call office next week if new or worsening symptoms. ICD-9 : 466.0 ICD-10 : J20.9 12/31/2017 Appointment: Fatou Onofre [address] [place] [address] ACUTE ILLNESS 12/31/2017 Patient Education: Patient Medication [...] : Z00.00 12/14/2017 Appointment: Keily Arango WPtel: [phone] [facility] CHECK UP 12/14/2017 Patient Education: Patient [...] Appointment: Keily Arango WPtel: [phone] [id number] ACUTE ILLNESS 12/02/2017 Patient Education: Patient Medication Summary Completed 12/02/2017 Visit Diagnosis Plan: Other allergic rhinitis Discussi on: symptoms most likely caused from allergies. patient sent to hospital for decadron injection. instructed to restart patient's flonase at home. if new or worsening symptoms, call or rtc. ICD-9 : 477.8 ICD-10 : J30.89 10/12/2017 Appointment: Fatou Onofre [address] ACUTE ILLNESS 10/12/2017 Patient Education: Patient [...] ICD-10 : G40.919 09/17/2017 Appointment: Fatou Onofre [address] ACUTE ILLNESS 09/17/2017 Patient Education: Patient Medication Summary Completed 09/17/2017 Visit Diagnosis Plan: Otitis media, unspecified, left ear Discussion: cefdinir prescribed daily for 10 days. instructed to administer tylenol/ibuprofen for pain or fever. if no improvement, or worsening symptoms, call or rtc. ICD-9 : 380.14 ICD-10 : H66.92 08/06/2017 Appointment: Fatuo Onofre [address] [place], [place] [id number] ACUTE ILLNESS 08/06/2017 Patient Education: Patient Medication Summary Completed 08/06/2017 Patient Education: Patient Medication Summary Completed 08/02/2017 Patient Education: Patient Medication Summary Completed 04/21/2017 Care Plan: MRI BRAIN STEM W/O DYE LOINC : 50287-8 Pending 04/21/2017 Patient Education: Patient Medication Summary Completed 04/20/2017 Care Plan: MRI BRAIN STEM W/O DYE LOINC : 04426-0 Pending 04/20/2017 Visit Diagnosis Plan: Vertigo of central origin, unspe cified ear Discussion: Continue meclizine at 12.5mg po BID for 2 more weeks then go to 12.5mg daily for 2 weeks then 6.25mg daily for 2 weeks then stop Notify if any symptoms return with weaning process ICD-9 : 386.2 ICD-10 : H81.49 04/01/2017 Appointment: Keily Arango WPtel: [phone] FOLLOW UP 04/01/2017 Patient Education: Patient Medication Summary Completed 04/01/2017 Patient Education: Patient Medication Summary Completed 03/09/2017 Care Plan: CT HEAD/BRAIN W/O DYE LOINC : 31575-8 Pending 03/09/2017 Visit Plan: It's difficult to [...] indicated. 03/01/2017 Appointment: Emely Hdz WPtel: [phone] [facility] ACUTE ILLNESS 03/01/2017 Patient Education: Patient Medication Summary Completed 03/01/2017 Patient Education: Patient Medication Summary Completed 12/17/2016 Visit Diagnosis Plan: Acute and subacute allergic otitis media (mucoid) (sanguinous) (serous), left ear Discussion: Zithromax ICD-9 : 381.05 ICD-10 : H65.112 11/10/2016 Visit Diagnosis Plan: Allergic rhinitis due to pollen Discussion: Continue zyrtec/singulair ICD-9 : 477.9 ICD-10 : J30.1 11/10/2016 Appointment: Keily Arango WPtel: [address] [place] [address] ACUTE ILLNESS 11/10/2016 Patient Education: Patient Medication Summary Completed 11/10/2016 Patient Education: Patient Medication Summary Completed 09/07/2016 Care Plan: URINALYSIS AUTO W/[place] : 65966-7 Pending 09/07/2016 Visit Diagnosis Plan: Cyst of [...] : N83.201 08/13/2016 Appointment: Keily Arango WPtel: [address] [place], [place] [phone] 08/12 confirmed-sp FOLLOW UP 08/13/2016 Patient Education: Patient Medication Summary Completed 08/13/2016 Patient Education: Patient Medication Summary Completed 05/19/2016 Care Plan: X-RAY EXAM OF FOOT left foot LOINC : 26 095-0 Pending 05/19/2016 Visit Plan: Discussed with Dr Conchita MAGANA C to be drawn Order sent to Will call with results 03/27/2016 Appointment: Aziza Magallanes [phone] [facility] ACUTE ILLNESS 03/27/2016 Patient Education: Patient Medication Summary Completed 03/27/2016 Visit Plan: Go for dose of rocephin 1gm IM today and tomorrow then done Diflucan 150mg x1 today Discussed with mom via phone about urology fwup--she will talk with her and let us know 03/23/2016 Appointment: Keily Arango WPtel: [address] [place], [place] [phone] 03/23 confirmed ~sl FOLLOW UP 03/23/2016 Patient Education: Patient Medication Summary Completed 03/23/2016 Visit Plan: Per Dr Arango, straight cat h for UA and culture today Ok to have a standing order for further UA needs at for straight cath Rocephin IM today and daily through Wednesday Mom has arranged a family friend that is an HAND [employer] to give Wednesday and Sundays injections - rxs for rocephin and lido sent to [facility] cannot order the lido in the qty patient needs) Dr Arango wants patient to be re-evaluated on Wednesday in clinic Referral to Urology for recurrent UTIs and urinary retention - mom wants to research who she wants her sent to and let us know 03/19/2016 Appointment: Aziza Magallanes [address] [place], [place] [phone] ACUTE ILLNESS 03/19/2016 Patient Education: Patient Medication Summary Completed 03/19/2016 Visit Plan: 1 more week of cefdinir 03/02/2016 Appointment: Keily Arango WPtel: [phone] [facility] 03/02 confirmed~sl WORK IN 03/02/2016 Patient [...] seen if worsening 02/24/2016 Appointment: Aziza Magallanes [address] [place], [place] [phone] ACUTE ILLNESS 02/24/2016 Patient Education: Patient Medication Summary Completed 02/24/2016 Care Plan: CHEST X-RAY 2VW FRONTAL&LATL LOINC : 56301-4 Pending 02/24/2016 Care Plan: X-RAY EXAM OF ABDOMEN LOINC : 83753-3 Pending 02/24/2016 Visit Plan: Repeat zithromax x1 week Cip rodex to right ear x1 week Add Pepcid q HS x2-4 weeks for total histamine blockade and for extra stomach protection while on zithromax 12/16/2015 Appointment: Keily Arango WPtel: [address] [place], [place] [phone] [place] 6/9 lm~sl 6/10 lm ~sl FOLLOW UP 12/16/2015 Patient Education: Patient Medication Summary Completed 12/16/2015 Patient Education: [facility] - Saving Auto[employer]j - Sertraline HCL - 18-64 - Dynamic Portal ID Completed 12/16/2015 Visit Plan: Saline nasal flushes prn. Ty lenol/Motrin prn headache. Notify if persists/symptoms worsens Dexamethasone given 11/12/2015 Appointment: Keily Arango WPtel: [address] [place], [place] [id number] [place] 5/9 lm~sl 5/10 lm~sl 5/10 confirm-sp [...] visits for Belkys 10/16/2015 Appointment: [phone] [facility] 10/16/2015 Patient Education: Patient Medication Summary Completed 10/16/2015 Appointment: Aziza [facility]allanes [phone] [facility] canceled, feeling better CANCELED 016 Visit Plan: No further abx needed Go mariela k to [facility] for next 3 days and restart carafate Notify if abdominal pain worsens 09/23/2015 Appointment: [phone] [facility] 09/19 confirmed-sp FOLLOW UP 09/23/2015 Patient Education: [...] done in the past. [facility] Recheck in [...] to try for now. 09/20/2015 Appointment: [facility] [facility] 09/20/2015 Patient Education: Patient Medication Summary Completed 09/20/2015 Visit Plan: Depo Medrol 40mg/ Kenalog 40 mg IM today Resume Ciprodex otic gtts. bid to Rt. ear 09/10/2015 Appointment: Bibiana Garg WPtel: [phone] [facility] 09/08 confirmed-sp ACUTE ILLNESS 09/10/2015 Patient Education: Patient Medication Summary Completed 09/10/2015 Visit Plan: Increase Protonix to 40mg po BID for 1month Continue carafate at q AC dosing for full month then wean off Jevity for 2 more days then advance diet if able Continue current meds 08/21/2015 Appointment: Keily Arango WPtel: [phone] [place] NEW PATIENT 08/21/2015 Patient Education: Patient Medication [...] arranged a family friend that is an [employer] to give Wednesday and Sundays injections - [...] No further abx needed Go back to [facility] for next 3 days and restart carafate [...] done in the past. Order sent to [facility] since [facility] does not have in stock. Recheck in [...]
--- OUTSIDE RECORDS SUMMARY | 2019-11-10 19:38 | XMS REPORT | CCD ---
Author Author Belkys Arango D.O. 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 Name Role Phone Keily Arango D.O., PP Unavailable CCM Unavailable Summary Purpose Interface Exchange Insurance Providers Payer name Policy type / Coverage type Covered constitution party ID Effective Begin Date Effective End Date [employer] [facility] Medicaid [id number] U nknown Family History Family History data not found Social History Social History Element Codes Description Effective Dates Marital status Unknown Single 08/21/2015 Employment Unknown Currently unemployed Physically handicapped 08/21/[address]: 520459763 Has never smoked or chewed tobacco 08/21/[address]: 417879215 Never drinks alcohol 2015 Allergies, Adverse Reactions, [...] Fill Instructions meclizine 12.5 mg tablet RxNorm: 575312 TAKE 1 TABLET B Y MOUTH THREE TIMES DAILY NEEDED 08/31/2019 10/29/2019 Active Ciprodex 0.3 %-0.1 % ear drops,suspension RxNorm: 813948 SHAKE LIQUID AND INSTILL 4 DROPS IN AFFECTED EAR(S) TWICE DAILY 08/31/2019 09/07/2019 A ctive Ciprodex 0.3 %-0.1 % ear drops,suspension RxNorm: 019854 SHAKE LIQUID AND INSTILL 4 DROPS IN AFFECTED EAR(S) TWICE DAILY 08/11/2019 08/18/2019 I nactive meclizine 12.5 mg tablet RxNorm: 836409 TAKE 1 TABLET B Y MOUTH THREE TIMES DAILY NEEDED 08/04/2019 08/30/2019 Inactive cefdinir 250 mg/5 mL oral suspension RxNorm: 140597 12 Milliliter(s) Oral QD though PEG tube 07/25/2019 08/03/2019 Inactive Zenpep 40,000 unit-126,000 unit-168,000 unit capsule,d elayed release RxNorm: 9954628 1 Capsule(s) Oral AC 07/10/2019 11/06/2019 Active famotidine 20 mg tablet RxNorm: 195137 TAKE 1 TABLET BY MOUTH EVERY NIGHT AT BEDTIME 07/09/2019 01/04/2020 Active sertraline 50 mg tablet RxNorm: 647044 TAKE 1 TABLET BY MOUTH EVERY NIGHT AT BEDTIME 07/09/2019 09/06/2019 Active Zenpep 40,000 unit-126,000 unit-168,000 unit capsule,d elayed release RxNorm: 8506415 1 Capsule(s) Oral AC 06/12/2019 07/09/2019 Inactive Zenpep 40,000 unit-126,000 unit-168,000 unit capsule,d elayed release RxNorm: 5142247 1 Capsule(s) Oral AC 05/24/2019 05/23/2019 Inactive Zenpep 40,000 unit-126,000 unit-168,000 unit capsule,d elayed release RxNorm: 3925808 1 Capsule(s) Oral AC 05/24/2019 06/11/2019 Inactive Ciprodex 0.3 %-0.1 % ear drops,suspension RxNorm: 867438 DROP(S) 4 DROP(S) OTIC BID 05/22/2019 06/18/2019 Inactive oxcarbazepine 300 mg/5 mL (60 mg/mL) oral suspension RxNorm: 709394 15 Milliliter(s) Oral two times a day 05/08/2019 11/03/2019 Active meclizine 12.5 mg tablet RxNorm: 960730 1 TABLET(S) PO TID NEEDE D 05/05/2019 08/02/2019 Inactive change in quantity Zithromax 200 mg/5 mL oral suspension RxNorm: 747143 12.5 Dilcia liter(s) Oral QD 05/04/2019 05/09/2019 Inactive amoxicillin 400 mg/5 mL oral suspension RxNorm: 382014 10 Milliliter(s) Oral two times a day 05/03/2019 05/13/2019 Inactive Singulair 10 mg tablet RxNorm: 481549 1 TABLET(S) PO QD 03/28/2019 Active Macrobid 100 mg capsule RxNorm: 063418 1 Capsule(s) PO BID 03/16/2003/22/2019 Inactive meclizine 12.5 mg tablet RxNorm: 106187 1 Tablet(s) PO TID as neede d 03/10/2019 05/04/2019 Inactive change in quantity Ciprodex 0.3 %-0.1 % ear drops,suspension RxNorm: 777141 DROP(S) 4 DROP(S) OTIC BID 03/08/2019 04/04/2019 Inactive oxcarbazepine 300 mg/5 mL (60 mg/mL) oral suspension RxNorm: 186716 15 Milliliter(s) PO BID 03/07/2019 05/07/2019 Inactive Macrobid 100 mg capsule RxNorm: 522037 1 Capsule(s) PO BID 02/21/2003/01/2019 Inactive Macrobid 100 mg capsule RxNorm: 933706 1 Capsule(s) PO BID 02/21/2002/19/2019 Inactive meclizine 12.5 mg tablet RxNorm: 059200 1 Tablet(s) PO TID as neede d 02/06/2019 03/07/2019 Inactive change in quantity Ciprodex 0.3 %-0.1 % ear drops,suspension RxNorm: 715269 DROP(S) 4 DROP(S) OTIC BID 01/30/2019 02/12/2019 Inactive diazepam 10 mg tablet RxNorm: 720685 1 Tablet(s) PO QHS as needed 0 01/27/2019 03/27/2019 Inactive sertraline 50 mg tablet RxNorm: 799480 1 Tablet(s) PO QHS 12/29/2018 06/26/2019 Inactive famotidine 20 mg tablet RxNorm: 964687 1 Tablet(s) PO QHS 12/29/2018 06/26/2019 Inactive Ciprodex 0.3 %-0.1 % ear drops,suspension RxNorm: 209090 DROP(S) 4 DROP(S) OTIC BID 12/14/2018 12/27/2018 Inactive Generlac 10 gram/15 mL oral solution RxNorm: 961499 15 Milliliter(s) PO TWO TO THREE TIMES DAILY 12/06/2018 06/03/2019 Inactive Protonix 40 mg tablet,delayed release RxNorm: 526876 1 Tablet(s) PO or per feeding tube BID 11/24/2018 05/22/2019 Inactive meclizine 12.5 mg tablet RxNorm: 072389 1 Tablet(s) PO TID as neede d 11/11/2018 02/06/2019 Inactive change in quantity Ciprodex 0.3 %-0.1 % ear drops,suspension RxNorm: 687685 DROP(S) 4 DROP(S) OTIC BID 11/08/2018 11/21/2018 Inactive diazepam 10 mg tablet RxNorm: 611042 1 Tablet(s) PO QHS as needed 0 10/21/2018 11/19/2018 Inactive Generlac 10 gram/15 mL oral solution RxNorm: 091206 Mil liliter(s) 15 MILLILITER(S) PO TWO TO THREE TIMES DAILY 10/07/2018 11/05/2018 Inacti ve Ciprodex 0.3 %-0.1 % ear drops,suspension RxNorm: 139414 DROP(S) DROP(S) 4 DROP(S) OTIC BID 08/26/2018 03/15/2019 Inactive meclizine 12.5 mg tablet RxNorm: 928852 1 TABLET(S) PO TID NEEDE D 07/25/2018 10/22/2018 Inactive change in quantity oxcarbazepine 300 mg/5 mL (60 mg/mL) oral suspension RxNorm: 535372 15 Milliliter(s) PO BID 07/08/2018 07/07/2018 Inactive oxcarbazepine 300 mg/5 mL (60 mg/mL) oral suspension RxNorm: 840505 15 Milliliter(s) PO BID 07/08/2018 01/03/2019 Inactive sertraline 50 mg tablet RxNorm: 388748 1 TABLET(S) PO QHS 07/06/2018 12/28/2018 Inactive Singulair 10 mg tablet RxNorm: 958039 1 TABLET(S) PO QD 06/24/2018 Inactive Ciprodex 0.3 %-0.1 % ear drops,suspension RxNorm: 621691 DROP(S) 4 DROP(S) OTIC BID 06/20/2018 06/19/2018 Inactive Ciprodex 0.3 %-0.1 % ear drops,suspension RxNorm: 508207 Drop(s) DROP(S) 4 DROP(S) OTIC BID 06/20/2018 07/03/2018 Inactive cefdinir 250 mg/5 mL oral suspension RxNorm: 763504 12 Milliliter(s) PO QD though PEG tube 06/13/2018 06/22/2018 Inactive famotidine 20 mg tablet RxNorm: 148695 1 Tablet(s) PO QHS 05/31/2018 11/26/2018 Inactive famotidine 40 mg/5 mL (8 mg/mL) oral suspension RxNorm: 3102 74 2.5 Milliliter(s) PO QHS 04/29/2018 06/12/2018 Inactive meclizine 12.5 mg tablet RxNorm: 215914 1 TABLET(S) PO TID NEEDE D 04/25/2018 07/23/2018 Inactive change in quantity Generlac 10 gram/15 mL oral solution RxNorm: 368825 Mil liliter(s) 15 MILLILITER(S) PO TWO TO THREE TIMES DAILY 04/04/2018 05/03/2018 Inacti ve Ciprodex 0.3 %-0.1 % ear drops,suspension RxNorm: 140617 Drop(s) 4 DROP(S) OTIC BID 04/04/2018 04/17/2018 Inactive diazepam 10 mg tablet RxNorm: 020542 1 Tablet(s) PO QHS as needed 1 05/03/2018 Inactive famotidine 40 mg/5 mL (8 mg/mL) oral suspension RxNorm: 3102 74 2.5 Milliliter(s) PO QHS 04/04/2018 04/28/2018 Inactive Generlac 10 gram/15 mL oral solution RxNorm: 986966 15 MILLILITER(S) PO TWO TO THREE TIMES DAILY 03/24/2018 04/03/2018 Inactive Singulair 10 mg tablet RxNorm: 135685 1 TABLET(S) PO QD 03/18/2018 Inactive Ciprodex 0.3 %-0.1 % ear drops,suspension RxNorm: 908778 Drop(s) 4 DROP(S) OTIC BID 03/08/2018 03/21/2018 Inactive Generlac 10 gram/15 mL oral solution RxNorm: 610482 15 Milliliter(s) PO two to three times daily 03/03/2018 03/23/2018 Inactive meclizine 12.5 mg tablet RxNorm: 831564 1 Tablet(s) PO TID as neede d 02/10/2018 04/10/2018 Inactive change in quantity meclizine 12.5 mg tablet RxNorm: 722229 1 Tablet(s) PO BID as neede d 02/07/2018 02/09/2018 Inactive change in quantity Ciprodex 0.3 %-0.1 % ear drops,suspension RxNorm: 016538 Drop(s) 4 DROP(S) OTIC BID 02/02/2018 03/08/2018 Inactive sertraline 50 mg tablet RxNorm: 181502 1 TABLET(S) PO QHS 01/25/2018 07/05/2018 Inactive Zithromax 200 mg/5 mL oral suspension RxNorm: 715230 12.5 Dilcia liter(s) PO QD 12/31/2017 01/04/2018 Inactive Pepcid 20 mg tablet RxNorm: 385715 TABLET(S) 1 TABLET(S) PO QHS 04/29/2018 Inactive famotidine 40 mg/5 mL (8 mg/mL) oral suspension RxNorm: 3102 74 2.5 Milliliter(s) PO QHS 12/28/2017 12/27/2017 Inactive famotidine 40 mg/5 mL (8 mg/mL) oral suspension RxNorm: 3102 74 2.5 Milliliter(s) PO QHS 12/28/2017 04/03/2018 Inactive Ciprodex 0.3 %-0.1 % ear drops,suspension RxNorm: 344877 Drop(s) 4 DROP(S) OTIC BID 12/27/2017 02/02/2018 Inactive meclizine 12.5 mg tablet RxNorm: 043820 1 Tablet(s) PO BID as neede d 12/23/2017 02/06/2018 Inactive change in quantity Protonix 40 mg tablet,delayed release RxNorm: 004120 1 Tablet(s) PO or per feeding tube BID 12/16/2017 07/13/2018 Inactive oxcarbazepine 300 mg/5 mL (60 mg/mL) oral suspension RxNorm: 609433 15 Milliliter(s) PO BID 12/16/2017 07/08/2018 Inactive meclizine 12.5 mg tablet RxNorm: 466787 1 Tablet(s) PO BID as neede d 12/15/2017 02/07/2018 Inactive change in quantity Pepcid 40 mg/5 mL (8 mg/mL) oral suspension RxNorm: 618003 5 Milliliter(s) PO QHS to replace nighttime pantoprazole dose 12/14/2017 12/27/2017 Inact марина meclizine 12.5 mg tablet RxNorm: 155826 1 Tablet(s) PO BID as neede d 12/13/2017 12/23/2017 Inactive diazepam 10 mg tablet RxNorm: 148300 1 Tablet(s) PO QHS as needed 0 12/02/2017 03/01/2018 Inactive prednisolone 15 mg/5 mL oral solution RxNorm: 095729 5 Milliliter(s) PO BID for 3 days then 5ml daily for 3 days then 2.5ml daily for 3 days 12/02/2017 12/13/2017 Inactive sertraline 50 mg tablet RxNorm: 925661 1 Tablet(s) PO QHS 11/04/2017 01/24/2018 Inactive Ciprodex 0.3 %-0.1 % ear drops,suspension RxNorm: 243309 Drop(s) 4 DROP(S) OTIC BID 10/18/2017 10/31/2017 Inactive Ciprodex 0.3 %-0.1 % ear drops,suspension RxNorm: 558859 Drop(s) 4 DROP(S) OTIC BID 10/18/2017 12/27/2017 Inactive Singulair 10 mg tablet RxNorm: 286705 1 Tablet(s) PO QD 09/30/2017 Inactive diazepam 5 mg/5 mL (1 mg/mL) oral solution RxNorm: 995884 2.5 Milliliter(s) PO QD give additional 5 mg dose if seizure occurs 09/17/2017 No Stop Date A ctive Bactrim DS 800 mg-160 mg tablet RxNorm: 994787 1 Tablet(s) PO BID 0 09/17/2017 09/23/2017 Inactive Ciprodex 0.3 %-0.1 % ear drops,suspension RxNorm: 892051 4 DROP (S) OTIC BID 09/13/2017 10/18/2017 Inactive cefdinir 250 mg/5 mL oral suspension RxNorm: 746053 12 Milliliter(s) PO QD though PEG tube 08/06/2017 08/15/2017 Inactive sertraline 50 mg tablet RxNorm: 948197 1 Tablet(s) PO QHS 08/02/2017 11/04/2017 Inactive Ciprodex 0.3 %-0.1 % ear drops,suspension RxNorm: 597571 4 DROP (S) OTIC BID 07/22/2017 08/11/2017 Inactive Singulair 10 mg tablet RxNorm: 897365 1 Tablet(s) PO QD 06/30/2017 Inactive diazepam 10 mg tablet RxNorm: 491192 TAKE 1 TABLET BY M OUTH EVERY NIGHT AT BEDTIME NEEDED 06/04/2017 07/03/2017 Inactive oxcarbazepine 300 mg/5 mL (60 mg/mL) oral suspension RxNorm: 776706 15 MILLILITER(S) PO BID 05/03/2017 12/16/2017 Inactive sertraline 50 mg tablet RxNorm: 256033 1 Tablet(s) PO QHS 05/03/2017 08/02/2017 Inactive Protonix 40 mg tablet,delayed release RxNorm: 808464 1 Tablet(s) PO or per feeding tube BID 04/26/2017 12/16/2017 Inactive Ciprodex 0.3 %-0.1 % ear drops,suspension RxNorm: 773041 4 DROP (S) OTIC BID 04/26/2017 05/23/2017 Inactive Generlac 10 gram/15 mL oral solution RxNorm: 756825 Mil liliter(s) TAKE 15 ML BY MOUTH TWO-THREE TIMES DAILY 04/08/2017 03/03/2018 Inactive Singulair 10 mg tablet RxNorm: 341853 1 Tablet(s) PO QD 03/03/2017 Inactive diazepam 10 mg tablet RxNorm: 948654 1 Tablet(s) PO QHS as needed 0 02/15/2017 06/04/2017 Inactive Singulair 10 mg tablet RxNorm: 348632 1 Tablet(s) PO QD 12/01/2016 Inactive Diflucan 150 mg tablet RxNorm: 165494 Tablet(s) Give 1 tab PO now and then repeat dose in 5 days 11/10/2016 03/31/2017 Inactive Zithromax 200 mg/5 mL oral suspension RxNorm: 403774 12.5 Dilcia liter(s) PO QD 11/10/2016 11/14/2016 Inactive Singulair 10 mg tablet RxNorm: 142107 TAKE 1 TABLET BY MOUTH ON CE DAILY 11/02/2016 12/01/2016 Inactive diazepam 10 mg tablet RxNorm: 401477 TAKE 1 TABLET BY M OUTH EVERY NIGHT AT BEDTIME NEEDED 10/21/2016 11/19/2016 Inactive sertraline 50 mg tablet RxNorm: 309984 1 Tablet(s) PO QHS 10/12/2016 01/09/2017 Inactive fluconazole 100 mg tablet RxNorm: 527004 1 Tablet(s) PO QD 09/23/19 17 09/24/2016 Inactive fluconazole 100 mg tablet RxNorm: 773236 1 Tablet(s) PO QD 09/23/19 17 09/21/2016 Inactive Bactrim DS 800 mg-160 mg tablet RxNorm: 894213 1 Tablet(s) PO BID 0 09/10/2016 09/09/2016 Inactive Bactrim DS 800 mg-160 mg tablet RxNorm: 420318 1 Tablet(s) PO BID 0 09/10/2016 09/16/2016 Inactive oxcarbazepine 300 mg/5 mL (60 mg/mL) oral suspension RxNorm: 651441 15 Milliliter(s) PO BID 09/07/2016 03/05/2017 Inactive sertraline 50 mg tablet RxNorm: 094123 1 Tablet(s) PO QHS 07/06/2016 10/03/2016 Inactive Pepcid 20 mg tablet RxNorm: 613778 Tablet(s) 1 TABLET(S) PO QHS 08/201603/08/2017 Inactive sertraline 50 mg tablet RxNorm: 026484 1 Tablet(s) PO QHS 06/08/2016 05/03/2017 Inactive Generlac 10 gram/15 mL oral solution RxNorm: 447328 Mil liliter(s) TAKE 15 ML BY MOUTH TWO-THREE TIMES DAILY 06/08/2016 09/08/2016 Inactive Pepcid 20 mg tablet RxNorm: 918089 1 TABLET(S) PO QHS 06/04/201607/2016 Inactive fluconazole 100 mg tablet RxNorm: 342797 1 Tablet(s) QD through PEG tube 05/13/2016 12/01/2017 Inactive Diflucan 150 mg tablet RxNorm: 540137 Give 1 tab PO now and then repeat dose in 5 days 03/19/2016 11/09/2016 Inactive ceftriaxone 1 gram solution for injection RxNorm: 4167762 1 Gram(s) IM QD Wednesday and Wednesday03/19/2016 11/09/2016 Inactive lidocaine 10 mg/mL (1 %) injection solution RxNorm: 5995328 Use as directed to reconstitute Rocephin when needed 03/19/2016 12/13/2017 Inactive Generlac 10 gram/15 mL oral solution RxNorm: 513808 JOE E 15 ML BY MOUTH TWO- THREE TIMES DAILY 03/19/2016 06/07/2016 Inactive oxcarbazepine 300 mg/5 mL oral suspension RxNorm: 508530 15 Milliliter(s) PO BID 03/13/2016 09/07/2016 Inactive Ciprodex 0.3 %-0.1 % ear drops,suspension RxNorm: 567830 4 DROP (S) OTIC BID 03/09/2016 03/15/2016 Inactive cefdinir 250 mg/5 mL oral suspension RxNorm: 796478 11. 75 Milliliter(s) PO QD though PEG tube 03/02/2016 03/08/2016 Inactive cefdinir 250 mg/5 mL oral suspension RxNorm: 824189 11. 75 Milliliter(s) PO QD though PEG tube 02/24/2016 03/01/2016 Inactive cefdinir 250 mg/5 mL oral suspension RxNorm: 429396 11. 75 Milliliter(s) PO QD though PEG tube 02/24/2016 02/23/2016 Inactive Ciprodex 0.3 %-0.1 % ear drops,suspension RxNorm: 211638 4 Drop (s) OTIC BID 02/24/2016 03/01/2016 Inactive Generlac 10 gram/15 mL oral solution RxNorm: 247814 JOE E 15 ML BY MOUTH TWICE DAILY 02/17/2016 03/18/2016 Inactive Generlac 10 gram/15 mL oral solution RxNorm: 334846 15 Millilit er(s) PO BID 01/23/2016 02/16/2016 Inactive Pepcid 20 mg tablet RxNorm: 779995 1 TABLET(S) PO QHS 01/13/201605/07 Inactive Ciprodex 0.3 %-0.1 % ear drops,suspension RxNorm: 133495 4 Drop (s) OTIC BID 12/23/2015 12/29/2015 Inactive sertraline 50 mg tablet RxNorm: 360670 1 Tablet(s) PO QHS 12/16/2015 06/07/2016 Inactive Zithromax 500 mg tablet RxNorm: 360470 1 Tablet(s) PO QD 12/16/2015 0 12/22/2015 Inactive Pepcid 20 mg tablet RxNorm: 867128 1 Tablet(s) PO QHS 12/16/201501/02 Inactive Zithromax 500 mg tablet RxNorm: 286723 1 Tablet(s) PO QD 11/12/2015 0 11/18/2015 Inactive Singulair 10 mg tablet RxNorm: 856198 1 Tablet(s) PO BID 10/16/2015 0 11/11/2015 Inactive diazepam 10 mg tablet RxNorm: 590386 1 Tablet(s) PO QHS 10/07/2015 Inactive diazepam 10 mg tablet RxNorm: 795164 1 Tablet(s) PO QHS 10/07/2015 Inactive fexofenadine 30 mg/5 mL oral suspension RxNorm: 116174 10 Milliliter(s) PO one to two times daily PRN allergies 09/20/2015 12/15/2015 Inactive ceftriaxone 1 gram solution for injection RxNorm: 9896775 1 Gram (s) IM QD 09/20/2015 09/21/2015 Inactive Ciprodex 0.3 %-0.1 % ear drops,suspension RxNorm: 998690 4 Drop (s) OTIC BID 09/20/2015 10/03/2015 Inactive Protonix 40 mg tablet,delayed release RxNorm: 508033 1 Tablet(s) PO or per feeding tube BID 08/21/2015 12/18/2015 Inactive Carafate 100 mg/mL oral suspension RxNorm: 075681 10 Mi lliliter(s) Miscellaneous per feeding tube AC & HS 08/21/2015 09/19/2015 Inactive Zyrtec 10 mg tablet RxNorm: 9947433 1 Tablet(s) PO QD No Start Date Active diazepam 20 mg rectal kit RxNorm: 521698 RTL as needed No Start Date Active Lortab Elixir 10 mg-300 mg/15 mL oral solution RxNorm: 51774 45 8 PO Q6-8H as needed No Start Date Active ondansetron HCl 4 mg/5 mL oral solution RxNorm: 738794 10 Milliliter(s) PO as needed and through tube No Start Date Active sertraline 50 mg tablet RxNorm: 482042 1 Tablet(s) PO QD No Start D ate 12/15/2015 Inactive Brittany 180 mg tablet RxNorm: 371084 1 Tablet(s) PO QD No Start Date 06/12/2018 Inactive Generlac 10 gram/15 mL oral solution RxNorm: 699679 15 Millilit er(s) PO BID No Start Date 01/22/2016 Inactive oxcarbazepine 300 mg/5 mL oral suspension RxNorm: 234883 13.5 Milliliter(s) PO QAM and 15ml in the evening No Start Date 12/15/2015 Inactive Singulair 10 mg tablet RxNorm: 754518 1 Tablet(s) PO QD No Start Da te 11/30/2016 Inactive meclizine 12.5 mg tablet RxNorm: 415661 1 Tablet(s) PO TID as needed for dizziness No Start Date 09/13/2017 Inactive meclizine 12.5 mg tablet RxNorm: 802992 1 Tablet(s) PO BID No Start Date 12/12/2017 Inactive fluconazole 100 mg tablet RxNorm: 446327 1 Tablet(s) QD through PEG tube No Start Date 05/12/2016 Inactive Flomax 0.4 mg capsule RxNorm: 688469 1 Capsule(s) PO QD No Start Da te 06/12/2018 Inactive diazepam 10 mg tablet RxNorm: 249807 1 Tablet(s) PO QHS as needed N o Start Date 02/14/2017 Inactive Generlac 10 gram/15 mL oral solution RxNorm: 051245 15 Milliliter(s) PO two to three times daily No Start Date 03/02/2018 Inactive oxcarbazepine 300 mg/5 mL oral suspension RxNorm: 657291 15 Milliliter(s) PO BID No Start Date 12/15/2017 Inactive Medication Administered No Medication Administered data Immunizations Vaccine Codes Date Status Influenza CVX: 141 04/21/2019 Results No Results data Procedures Procedure Codes Date DEXAMETHASONE SODIUM PHOS CPT-4: J1100 05/03/2019 THER/PROPH/DIAG INJ SC/IM CPT-4: 22128 05/03/2019 CEFTRIAXONE SODIUM INJECTION CPT-4: J0696 03/19/2016 THER/PROPH/DIAG INJ SC/IM CPT-4: 00780 03/19/2016 DEXAMETHASONE SODIUM PHOS CPT-4: J1100 11/12/2015 THER/PROPH/DIAG INJ SC/IM CPT-4: 14728 11/12/2015 CEFTRIAXONE SODIUM INJECTION CPT-4: J0696 09/20/2015 THER/PROPH/DIAG INJ SC/IM CPT-4: 26531 09/20/2015 THER/PROPH/DIAG INJ SC/IM CPT-4: 04277 09/10/2015 METHYLPREDNISOLONE 40 MG INJ CPT-4: J1030 09/10/2015 TRIAMCINOLONE ACET INJ NOS CPT-4: J3301 09/10/2015 Vital Signs Date Vital 07/25/2019 Blood Pressure 1: 116/80 Code: 8480-6 BMI: 23.2 Code: 82147-3 Heart Rate 1: 81 bpm Height: 4'5" Respiratory Rate: 16 bpm SpO2: 100% Tempera ture: 36.8 (C) / 98.2 (F) Weight: 92 lbs 06/12/2019 Blood Pressure 1: 112/74 Code: 8480-6 BMI: 23.2 Code: 49316-3 Heart Rate 1: 102 bpm Height: 4'5" [...] 1: 114/70 Code: 8480-6 BMI: 23.1 Code: 29521-1 Heart Rate 1: 80 bpm Height: 4'6" Respiratory Rate: 20 bpm Temperature: 36 .5 (C) / 97.7 (F) Weight: 96 lbs Functional Status No Functional Status data Reason For Visit Reason For Visit Effective Dates Notes postnasal drip 07/25/2019 well woman exam (18-39 years) 06/12/2019 Annual Wel ess follow up 05/08/2019 seizure 05/03/2019 decreased fluids, [...] OFFICE/OUTPATIENT VISIT EST Diagnosis: Sinusitis[ICD10: J32.9] Fatou Onofre [facility] CPT-4: 91253 07/25/2019 ([id number]) PREV VISIT EST AGE 18-39 Diagnosis: Encounter for general adult medical examination with abnormal findings[ICD10: Z00.01] Diagnosis: Chronic pancreatitis[ICD10: K86.1] Diagnosis: Cerebral palsy, unspecified[ICD10: G80.9] Keily ARANGO [employer] CPT-4: 14959 06/12/2019 ([id number]) OFFICE/OUTPATIENT VISIT EST Diagnosis: Pneumonia, organism unspecified[ICD10: J18.9] Diagnosis: Breast mass, right[ICD10: N63.10] Keily ARANGO Cur[facility] CPT-4: 89261 05/08/2019 ([id number]) OFFICE/OUTPATIENT VISIT EST Diagnosis: Allergic rhinitis due to pollen[ICD10: J30.1] Diagnosis: Otitis media, unspecified, right ear[ICD10: H66.91] Fatou ARANGO Curiosidy [facility] CPT-4: 66266 05/03/2019 ([id number]) OFFICE/OUTPATIENT VISIT EST Diagnosis: Irritability and anger[ICD10: R45.4] Nataliia ARANGO [facility] CPT-4: 22343 11/25/2018 ([id number]) OFFICE/OUTPATIENT VISIT EST Diagnosis: Acute suppurative otitis media without spontaneous rupture of ear drum, bilateral[ICD10: H66.003] Fatou ARANGO Curiosidy [facility] CPT-4: 77874 06/13/2018 ([id number]) OFFICE/OUTPATIENT VISIT EST Diagnosis: Other fatigue[ICD10: R53.83] Diagnosis: Anuria and oliguria[ICD10: R34] Diagnosis: Acute gastritis without bleeding[ICD10: K29.00] Fatou ARANGO Curiosidy [facility] CPT-4: 56095 01/04/2018 ([id number]) OFFICE/OUTPATIENT VISIT EST Diagnosis: Acute bronchitis, unspecified[ICD10: J20.9] Fatou ARANGO DO [facility] CPT-4: 16328 12/31/2017 ([id number]) PREV VISIT EST AGE 18-39 Diagnosis: Encounter for general adult medical examination without abnormal findings[ICD10: Z00.00] Diagnosis: Severe intellectual disabilities[ICD10: F72] Diagnosis: Allergic rhinitis due to pollen[ICD10: J30.1] Diagnosis: Epilepsy, unspecified, intractable, without status epilepticus[ICD10: G40.919] Diagnosis: Gastro-esophageal reflux disease without esophagitis[ICD10: K21.9] Keily ARANGO [facility] CPT-4: 33935 12/14/2017 ([id number]) OFFICE/OUTPATIENT VISIT EST Diagnosis: Allergic rhinitis due to pollen[ICD10: J30.1] Diagnosis: Epilepsy, unspecified, intractable, without status epilepticus[ICD10: G40.919] [facility] CPT-[facility]: 65274 12/02/2017 ([id number]) OFFICE/OUTPATIENT VISIT EST Diagnosis: Other allergic rhinitis[ICD10: J30.89] [facility]ou [facility] CPT-[facility]: 63643 10/12/2017 OFFICE/OUTPATIENT VISIT EST Diagnosis: Acute suppurative otitis media without spontaneous rupture of ear drum, recurrent, left ear[ICD10: H66.005] Diagnosis: Epilepsy, unspecified, intractable, without status epilepticus[ICD10: G40.919] Diagnosis: Hesitancy of micturition[ICD10: R39.11] Fatou Bobby [facility] CPT-4: 78724 09/17/2017 OFFICE/OUTPATIENT VISIT EST Diagnosis: Otitis media, unspecified, left ear[ICD10: H66.92] Fatou Bobby [facility] CPT-4: 34879 08/06/2017 ([id number]) OFFICE/OUTPATIENT VISIT EST Diagnosis: Vertigo of central origin, 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.49] Diagnosis: Dizziness and giddiness[ICD10: R42] Keily Conchita Bobby [facility] CPT-4: 32376 04/01/2017 OFFICE/OUTPATIENT VISIT EST Diagnosis: Vomiting, unspecified[ICD10: R11.10] Diagnosis: 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)[ICD10: K56.5] Diagnosis: Personal history of urinary calculi[ICD10: Z87.442] Emely Hdz KEILY Bobby [facility] CPT-4: 23585 03/01/2017 ([id number]) OFFICE/OUTPATIENT VISIT EST Diagnosis: Allergic rhinitis due to pollen[ICD10: J30.1] Diagnosis: Acute and subacute allergic otitis media (mucoid) (sanguinous) (serous), left ear[ICD10: H65.112] Keily CASTILLO [facility] CPT-4: 86295 11/10/2016 ([id number]) OFFICE/OUTPATIENT VISIT EST Diagnosis: 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] Diagnosis: Unspecified ovarian cyst, right side[ICD10: N83.201] Diagnosis: Cyst of kidney, 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] [facility] CPT[facility]: 47840 08/13/2016 ([id number]) OFFICE/OUTPATIENT VISIT EST Diagnosis: Rash and other nonspecific skin eruption[ICD10: R21] [facility] CPT[facility]: 33436 03/27/2016 ([id number]) OFFICE/OUTPATIENT VISIT EST Diagnosis: Urinary tract infection, site not specified[ICD10: N39.0] Keily [facility] CPT-4: 00373 03/23/2016 ([id number]) OFFICE/OUTPATIENT VISIT EST Diagnosis: Retention of urine, unspecified[ICD10: R33.9] Diagnosis: Dysuria[ICD10: R30.0] Diagnosis: Constipation, unspecified[ICD10: K59.00] Aziza Magallanes SIOMARA LAWTON Diamante [facility] CPT-4: 86090 03/19/2016 ([id number]) OFFICE/OUTPATIENT VISIT EST Diagnosis: Acute sinusitis, unspecified[ICD10: J01.90] [facility]PT[facility]: 34412 03/02/2016 OFFICE/OUTPATIENT VISIT EST Diagnosis: Other fatigue[ICD10: R53.83] Diagnosis: Retention of urine, unspecified[ICD10: R33.9] Diagnosis: Dysuria[ICD10: R30.0] Diagnosis: Generalized abdominal pain[ICD10: R10.84] 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] Aziza RIOSLINE [facility]am[facility] CPT-4: 46709 02/24/2016 ([id number]) OFFICE/OUTPATIENT VISIT EST Diagnosis: Chronic mucoid otitis media, right ear[ICD10: H65.31] Diagnosis: Allergic rhinitis, unspecified[ICD10: J30.9] Diagnosis: 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] Keily ARANGO [facility] CPT-4: 14892 12/16/2015 ([id number]) OFFICE/OUTPATIENT VISIT EST Diagnosis: Allergic rhinitis, unspecified[ICD10: J30.9] Diagnosis: Acute recurrent sinusitis, unspecified[ICD10: J01.91] Keily ARANGO [facility] CPT-4: 51869 11/12/2015 ([id number]) OFFICE/OUTPATIENT VISIT EST Diagnosis: Other seasonal allergic rhinitis[ICD10: J30.2] Diagnosis: Nausea with vomiting, unspecified[ICD10: R11.2] Diagnosis: Epigastric pain[ICD10: R10.13] [facility] CPT-4: 46777 10/16/2015 OFFICE/OUTPATIENT VISIT EST Diagnosis: Encounter for follow-up examination after completed treatment for conditions other than malignant neoplasm[ICD10: Z09] Diagnosis: Generalized abdominal pain[ICD10: R10.84] Keily ARANGO [facility] CPT-4: 22207 09/23/2015 ([id number]) OFFICE/OUTPATIENT VISIT EST Diagnosis: Otitis media, unspecified, right ear[ICD10: H66.91] Diagnosis: Constipation, unspecified[ICD10: K59.00] Diagnosis: Allergic rhinitis, unspecified[ICD10: J30.9] Aziza ARANGO [facility] CPT-4: 56782 09/20/2015 OFFICE/OUTPATIENT VISIT EST Diagnosis: Allergic rhinitis, unspecified[ICD10: J30.9] Diagnosis: Unspecified perforation of tympanic membrane, right ear[ICD10: H72.91] Bibiana Garg KEILY ARANGO [facility] CPT-4: 63533 09/10/2015 OFFICE/OUTPATIENT VISIT NEW Diagnosis: Epilepsy, unspecified, intractable, without status epilepticus[ICD10: G40.919] Diagnosis: Gastric ulcer, unspecified as acute or chronic, without hemorrhage or perforation[ICD10: K25.9] Diagnosis: Severe intellectual disabilities[ICD10: F72] Keily ARANGO DO [facility] CPT-4: 64673 08/21/2015 Plan of Care Planned Activity Notes Codes Status Date Visit Diagnosis Plan: Sinusitis Discussion: due to [facility] of illness and symptoms, cefdinir prescribed to take as directed. call office with any new or worsening symptoms. ICD-9 : 473.9 ICD-10 : J32.9 07/25/2019 Appointment: Fatou Onofre [address] [place] [address] ACUTE ILLNESS 07/25/2019 Patient Education: cefdinir- [employer] Coupon [id number] [email or web address] Completed 07/25/2019 Visit Diagnosis Plan: Chronic pancreatitis Discussion: Continue zenpep and recheck CMP with amylase/lipase in 1 month ICD-9 : 577.1 ICD-10 : K86.1 06/12/2019 Appointment: Keily Arango WPtel: [address] [place] [address] Annual Well Visit 06/12/2019 Visit Diagnosis Plan: [...] : J18.9 05/08/2019 Appointment: Keily Arango WPtel: [facility] [address] Hospital Follow Up 05/08/2019 Visit Diagnosis [...] ICD-10 : H66.91 05/03/2019 Appointment: Fatou Onofre [address] [place] [address] ACUTE ILLNESS 05/03/2019 Patient Education: amoxicillin- [employer] Coupon [id number] [email or web address] Completed 05/03/2019 Visit Diagnosis Plan: Irritability and [...] ICD-10 : R45.4 11/25/2018 Appointment: Nataliia Hsieh [address] [place] [address] ACUTE ILLNESS 11/25/2018 Visit Diagnosis Plan: Acute suppurative otitis media without spontaneous rupture of ear drum, bilateral Discussion: cefdinir for 10 days. if wor sening symptoms later this week, call clinic. push fluids and tylenol/ibuprofen prn pain or fever. ICD-9 : 382.00 ICD-10 : H66.003 06/13/2018 Appointment: Fatou Onofre [address] [place], [place] [id number] ACUTE ILLNESS 06/13/2018 Visit Diagnosis Plan: Anuria [...] ICD-10 : K29.00 01/04/2018 Appointment: Fatou Onofre [address] [place], [place] [id number] ACUTE ILLNESS 01/04/2018 Patient Education: Patient Medication Summary Completed 01/04/2018 Visit Diagnosis Plan: Acute bronchitis, unspecified Di scussion: zithromax prescribed to take as directed. continue with allergy meds including flonase to help dry congestion. call office next week if new or worsening symptoms. ICD-9 : 466.0 ICD-10 : J20.9 12/31/2017 Appointment: Fatou Onofre [address] [place], [place] [id number] ACUTE ILLNESS 12/31/2017 Patient Education: Patient Medication [...] G40.919 12/14/2017 Visit Diagnosis Plan: Encounter for [facility] adult medical examination without abnormal findings Discussion: Had recent lab done Follow Up: 3 months ICD-9 : V70.9 ICD-10 : Z00.00 12/14/2017 Appointment: Keily Arango WPtel: [phone] [facility] CHECK UP 12/14/2017 Patient Education: Patient [...] Appointment: Keily Arango WPtel: [phone] [id number] ACUTE ILLNESS 12/02/2017 Patient Education: Patient Medication Summary Completed 12/02/2017 Visit Diagnosis Plan: Other allergic rhinitis Discussi on: symptoms most likely caused from allergies. patient sent to hospital for decadron injection. instructed to restart patient's flonase at home. if new or worsening symptoms, call or rtc. ICD-9 : 477.8 ICD-10 : J30.89 10/12/2017 Appointment: Fatou Onofre [place] [id number] ACUTE ILLNESS 10/12/2017 Patient Education: Patient Medication [...] ICD-10 : G40.919 09/17/2017 Appointment: Fatou Onofre [place] [phone] ACUTE ILLNESS 09/17/2017 Patient Education: Patient Medication Summary Completed 09/17/2017 Visit Diagnosis Plan: Otitis media, unspecified, left ear Discussion: cefdinir prescribed daily for 10 days. instructed to administer tylenol/ibuprofen for pain or fever. if no improvement, or worsening symptoms, call or rtc. ICD-9 : 380.14 ICD-10 : H66.92 08/06/2017 Appointment: Fatou Onofre [address] [place] [address] ACUTE ILLNESS 08/06/2017 Patient Education: Patient Medication Summary Completed 08/06/2017 Patient Education: Patient Medication Summary Completed 08/02/2017 Patient Education: Patient Medication Summary Completed 04/21/2017 Care Plan: MRI BRAIN STEM W/O DYE LOINC : 97534-5 Pending 04/21/2017 Patient Education: Patient Medication Summary Completed 04/20/2017 Care Plan: MRI BRAIN STEM W/O DYE LOINC : 71758-1 Pending 04/20/2017 Visit Diagnosis Plan: Vertigo of central origin, unspe cified ear Discussion: Continue meclizine at 12.5mg po BID for 2 more weeks then go to 12.5mg daily for 2 weeks then 6.25mg daily for 2 weeks then stop Notify if any symptoms return with weaning process ICD-9 : 386.2 ICD-10 : H81.49 04/01/2017 Appointment: Keily Arango WPtel: [phone] FOLLOW UP 04/01/2017 Patient Education: Patient Medication Summary Completed 04/01/2017 Patient Education: Patient Medication Summary Completed 03/09/2017 Care Plan: CT HEAD/BRAIN W/O DYE LOINC : 46640-3 Pending 03/09/2017 Visit Plan: It's difficult to [...] indicated. 03/01/2017 Appointment: Emely Hdz WPtel: [phone] [place] [phone] ACUTE ILLNESS 03/01/2017 Patient Education: Patient Medication Summary Completed 03/01/2017 Patient Education: Patient Medication Summary Completed 12/17/2016 Visit Diagnosis Plan: Acute and subacute allergic otitis media (mucoid) (sanguinous) (serous), left ear Discussion: Zithromax ICD-9 : 381.05 ICD-10 : H65.112 11/10/2016 Visit Diagnosis Plan: Allergic rhinitis due to pollen Discussion: Continue zyrtec/singulair ICD-9 : 477.9 ICD-10 : J30.1 11/10/2016 Appointment: Keily Arango WPtel: [address] [place] [address] ACUTE ILLNESS 11/10/2016 Patient Education: Patient Medication Summary Completed 11/10/2016 Patient Education: Patient Medication Summary Completed 09/07/2016 Care Plan: URINALYSIS AUTO W/[place] : 26575-5 Pending 09/07/2016 Visit Diagnosis Plan: Cyst of kidney, acquired Discuss ion: Renal US in 6mos to assess stability ICD-9 : 753.10 ICD-10 : N28.1 08/13/2016 Visit Diagnosis Plan: Calculus of kidney Discussion: F romi lozanoro Finish flomax Will observe for now since pain is resolved ICD-9 : 592.0 ICD-10 : N20.0 08/13/2016 Visit Diagnosis Plan: Unspecified ovarian cyst, right side Discussion: Pain resolved so will only get pelvic US if pain or vomiting return ICD-9 : 620.2 ICD-10 : N83.201 08/13/2016 Appointment: Keily Arango WPtel: [address] [place] [address] 08/12 confirmed-sp FOLLOW UP 08/13/2016 Patient Education: Patient Medication Summary Completed 08/13/2016 Patient Education: Patient Medication Summary Completed 05/19/2016 Care Plan: X-RAY EXAM OF FOOT left foot LOINC : 26 095-0 Pending 05/19/2016 Visit Plan: Discussed with Dr Conchita MAGANA C to be drawn Order sent to Will call with results 03/27/2016 Appointment: Aziza Magallanes [address] [place] [address] ACUTE ILLNESS 03/27/2016 Patient Education: Patient Medication Summary Completed 03/27/2016 Visit Plan: Go for dose of rocephin 1gm IM today and tomorrow then done Diflucan 150mg x1 today Discussed with mom via phone about urology fwup--she will talk with her and let us know 03/23/2016 Appointment: [phone] [facility] 03/23 confirmed ~sl FOLLOW UP 03/23/2016 Patient Education: Patient Medication Summary Completed 03/23/2016 Visit Plan: Per Dr Arango, straight cat h for UA and culture today Ok to have a standing order for further UA needs at for straight cath Rocephin IM today and daily through Wednesday Mom has arranged a family friend that is an [employer] to give Wednesday and Sundays injections - rxs for rocephin and lido sent to [facility] cannot order the lido in the qty patient needs) Dr Arango wants patient to be re-evaluated on Wednesday in clinic Referral to Urology for recurrent UTIs and urinary retention - mom wants to research who she wants her sent to and let us know 03/19/2016 Appointment: Aziza Magallanes [phone] [facility] ACUTE ILLNESS 03/19/2016 Patient Education: Patient Medication Summary Completed 03/19/2016 Visit Plan: 1 more week of cefdinir 03/02/2016 Appointment: [phone] [facility] 03/02 confirmed~sl WORK IN 03/02/2016 Patient Education: [...] if worsening 02/24/2016 Appointment: Aziza Magallanes [phone] [facility] ACUTE ILLNESS 02/24/2016 Patient Education: Patient Medication Summary Completed 02/24/2016 Care Plan: CHEST X-RAY 2VW FRONTAL&LATL LOINC : 97355-2 Pending 02/24/2016 Care Plan: X-RAY EXAM OF ABDOMEN LOINC : 25468-4 Pending 02/24/2016 Visit Plan: Repeat zithromax x1 week Cip rodex to right ear x1 week Add Pepcid q HS x2-4 weeks for total histamine blockade and for extra stomach protection while on zithromax 12/16/2015 Appointment: Keily Arango WPtel: [address] [place], [place] [phone] [place] 6/9 lm~sl 6/10 lm ~sl FOLLOW UP 12/16/2015 Patient Education: Patient Medication Summary Completed 12/16/2015 Patient Education: [facility] - Saving [employer] - Sertraline HCL - 18-64 - Dynamic Portal ID Completed 12/16/2015 Visit Plan: Saline nasal flushes prn. Ty lenol/Motrin prn headache. Notify if persists/symptoms worsens Dexamethasone given 11/12/2015 Appointment: Keily Arango WPtel: [address] [place], [place] [phone] [place] 5/9 lm~sl 5/10 lm~sl 5/10 confirm-sp FOLLOW UP 11/12/2015 Patient Education: Patient Medication Summary Completed 11/12/2015 Visit Plan: Lengthy visit Trial singulai nathaniel in addition to zyrtec and flonase [...] visits for Belkys 10/16/2015 Appointment: Aziza Magallanes [phone] [facility] ACUTE ILLNESS 10/16/2015 Patient Education: Patient Medication Summary Completed 10/16/2015 [facility]ment: [facility]anes [facility] [facility] [place] canceled, feeling better CANCELED 016 Visit Plan: No further abx needed Go mariela k to [facility] for next 3 days and restart carafate Notify if abdominal pain worsens 09/23/2015 Appointment: [phone] [facility] 09/19 confirmed-sp FOLLOW UP 09/23/2015 Patient Education: [...] sent to [facility] since [facility] does not have in stock. Recheck in [...] try for now. 09/20/2015 Appointment: [facility]anes [address] [facility] [facility] 09/20/2015 Patient Education: Patient Medication Summary Completed 09/20/2015 Visit Plan: Depo Medrol 40mg/ Kenalog 40 mg IM today Resume Ciprodex otic gtts. bid to Rt. ear 09/10/2015 Appointment: Bibiana Garg WPtel[facility] [phone] [facility] 09/08 confirmed-sp ACUTE ILLNESS 09/10/2015 Patient Education: Patient Medication Summary Completed 09/10/2015 Visit Plan: Increase Protonix to 40mg po BID for 1month Continue carafate at q AC dosing for full month then wean off Jevity for 2 more days then advance diet if able Continue current meds 08/21/2015 Appointment: Keily Arango [place]el: [phone] [place] [place] NEW PATIENT 08/21/2015 Patient Education: Patient [...] arranged a family friend that is an [employer] to give Wednesday and Sundays injections - [...] sent to [facility] since [facility] does not have in [...]
--- OUTSIDE RECORDS SUMMARY | 2019-11-10 19:38 | XMS REPORT | CCD ---
Author Author Belkys Arango D.O. Organization KEILY ARANGO DO [facility] Address [address] [place] [address] Phone Care Team Providers Care [employer] Assistant Name Role Phone Keily Arango D.O., PP Unavailable CCM Unavailable Summary Purpose Interface Exchange Insurance Providers Payer name Policy type / Coverage type Covered green party ID Effective Begin Date Effective End Date [employer] [facility] [place] Medicaid [id number] U nknown Family History Family History data not found Social History Social History Element Codes Description Effective Dates Marital status Unknown Single 08/21/2015 Employment Unknown Currently unemployed Physically handicapped 08/21/[address]: 895699017 Has never smoked or chewed tobacco 08/21/[address]: 697717500 Never drinks alcohol 2015 Allergies, Adverse Reactions, [...] Ciprodex 0.3 %-0.1 % ear drops,suspension RxNorm: 107926 SHAKE LIQUID AND INSTILL 4 DROPS IN AFFECTED EAR(S) TWICE DAILY 08/31/2019 09/07/2019 A ctive Ciprodex 0.3 %-0.1 % ear drops,suspension RxNorm: 840010 SHAKE LIQUID AND INSTILL 4 DROPS IN AFFECTED EAR(S) TWICE DAILY 08/11/2019 08/18/2019 I nactive meclizine 12.5 mg tablet RxNorm: 283724 TAKE 1 TABLET B Y MOUTH THREE TIMES DAILY NEEDED 08/04/2019 09/02/2019 Active cefdinir 250 mg/5 mL oral suspension RxNorm: 262321 12 Milliliter(s) Oral QD though PEG tube 07/25/2019 08/03/2019 Inactive Zenpep 40,000 unit-126,000 unit-168,000 unit capsule,d elayed release RxNorm: 9790669 1 Capsule(s) Oral AC 07/10/2019 11/06/2019 Active famotidine 20 mg tablet RxNorm: 351130 TAKE 1 TABLET BY MOUTH EVERY NIGHT AT BEDTIME 07/09/2019 01/04/2020 Active sertraline 50 mg tablet RxNorm: 862024 TAKE 1 TABLET BY MOUTH EVERY NIGHT AT BEDTIME 07/09/2019 09/06/2019 Active Zenpep 40,000 unit-126,000 unit-168,000 unit capsule,d elayed release RxNorm: 3911870 1 Capsule(s) Oral AC 06/12/2019 07/09/2019 Inactive Zenpep 40,000 unit-126,000 unit-168,000 unit capsule,d elayed release RxNorm: 1775374 1 Capsule(s) Oral AC 05/24/2019 05/23/2019 Inactive Zenpep 40,000 unit-126,000 unit-168,000 unit capsule,d elayed release RxNorm: 9123944 1 Capsule(s) Oral AC 05/24/2019 06/11/2019 Inactive Ciprodex 0.3 %-0.1 % ear drops,suspension RxNorm: 819509 DROP(S) 4 DROP(S) OTIC BID 05/22/2019 06/18/2019 Inactive oxcarbazepine 300 mg/5 mL (60 mg/mL) oral suspension RxNorm: 439878 15 Milliliter(s) Oral two times a day 05/08/2019 11/03/2019 Active meclizine 12.5 mg tablet RxNorm: 820698 1 TABLET(S) PO TID NEEDE D 05/05/2019 08/02/2019 Inactive change in quantity Zithromax 200 mg/5 mL oral suspension RxNorm: 037238 12.5 Dilcia liter(s) Oral QD 05/04/2019 05/09/2019 Inactive amoxicillin 400 mg/5 mL oral suspension RxNorm: 906940 10 Milliliter(s) Oral two times a day 05/03/2019 05/13/2019 Inactive Singulair 10 mg tablet RxNorm: 679062 1 TABLET(S) PO QD 03/28/2019 Active Macrobid 100 mg capsule RxNorm: 178528 1 Capsule(s) PO BID 03/16/2003/22/2019 Inactive meclizine 12.5 mg tablet RxNorm: 497182 1 Tablet(s) PO TID as neede d 03/10/2019 05/04/2019 Inactive change in quantity Ciprodex 0.3 %-0.1 % ear drops,suspension RxNorm: 125295 DROP(S) 4 DROP(S) OTIC BID 03/08/2019 04/04/2019 Inactive oxcarbazepine 300 mg/5 mL (60 mg/mL) oral suspension RxNorm: 604687 15 Milliliter(s) PO BID 03/07/2019 05/07/2019 Inactive Macrobid 100 mg capsule RxNorm: 471687 1 Capsule(s) PO BID 02/21/20 19 03/01/2019 Inactive Macrobid 100 mg capsule RxNorm: 239093 1 Capsule(s) PO BID 02/21/20 19 02/19/2019 Inactive meclizine 12.5 mg tablet RxNorm: 289889 1 Tablet(s) PO TID as neede d 02/06/2019 03/07/2019 Inactive change in quantity Ciprodex 0.3 %-0.1 % ear drops,suspension RxNorm: 131441 DROP(S) 4 DROP(S) OTIC BID 01/30/2019 02/12/2019 Inactive diazepam 10 mg tablet RxNorm: 424628 1 Tablet(s) PO QHS as needed 0 01/27/2019 03/27/2019 Inactive sertraline 50 mg tablet RxNorm: 981217 1 Tablet(s) PO QHS 12/29/2018 06/26/2019 Inactive famotidine 20 mg tablet RxNorm: 221725 1 Tablet(s) PO QHS 12/29/2018 06/26/2019 Inactive Ciprodex 0.3 %-0.1 % ear drops,suspension RxNorm: 563607 DROP(S) 4 DROP(S) OTIC BID 12/14/2018 12/27/2018 Inactive Generlac 10 gram/15 mL oral solution RxNorm: 404142 15 Milliliter(s) PO TWO TO THREE TIMES DAILY 12/06/2018 06/03/2019 Inactive Protonix 40 mg tablet,delayed release RxNorm: 458855 1 Tablet(s) PO or per feeding tube BID 11/24/2018 05/22/2019 Inactive meclizine 12.5 mg tablet RxNorm: 116513 1 Tablet(s) PO TID as neede d 11/11/2018 02/06/2019 Inactive change in quantity Ciprodex 0.3 %-0.1 % ear drops,suspension RxNorm: 841254 DROP(S) 4 DROP(S) OTIC BID 11/08/2018 11/21/2018 Inactive diazepam 10 mg tablet RxNorm: 137463 1 Tablet(s) PO QHS as needed 0 10/21/2018 11/19/2018 Inactive Generlac 10 gram/15 mL oral solution RxNorm: 218433 Mil liliter(s) 15 MILLILITER(S) PO TWO TO THREE TIMES DAILY 10/07/2018 11/05/2018 Inacti ve Ciprodex 0.3 %-0.1 % ear drops,suspension RxNorm: 572607 DROP(S) DROP(S) 4 DROP(S) OTIC BID 08/26/2018 03/15/2019 Inactive meclizine 12.5 mg tablet RxNorm: 689781 1 TABLET(S) PO TID NEEDE D 07/25/2018 10/22/2018 Inactive change in quantity oxcarbazepine 300 mg/5 mL (60 mg/mL) oral suspension RxNorm: 535754 15 Milliliter(s) PO BID 07/08/2018 07/07/2018 Inactive oxcarbazepine 300 mg/5 mL (60 mg/mL) oral suspension RxNorm: 519994 15 Milliliter(s) PO BID 07/08/2018 01/03/2019 Inactive sertraline 50 mg tablet RxNorm: 365130 1 TABLET(S) PO QHS 07/06/2018 12/28/2018 Inactive Singulair 10 mg tablet RxNorm: 614963 1 TABLET(S) PO QD 06/24/2018 Inactive Ciprodex 0.3 %-0.1 % ear drops,suspension RxNorm: 984355 DROP(S) 4 DROP(S) OTIC BID 06/20/2018 06/19/2018 Inactive Ciprodex 0.3 %-0.1 % ear drops,suspension RxNorm: 915740 Drop(s) DROP(S) 4 DROP(S) OTIC BID 06/20/2018 07/03/2018 Inactive cefdinir 250 mg/5 mL oral suspension RxNorm: 731986 12 Milliliter(s) PO QD though PEG tube 06/13/2018 06/22/2018 Inactive famotidine 20 mg tablet RxNorm: 183424 1 Tablet(s) PO QHS 05/31/2018 11/26/2018 Inactive famotidine 40 mg/5 mL (8 mg/mL) oral suspension RxNorm: 3102 74 2.5 Milliliter(s) PO QHS 04/29/2018 06/12/2018 Inactive meclizine 12.5 mg tablet RxNorm: 722355 1 TABLET(S) PO TID NEEDE D 04/25/2018 07/23/2018 Inactive change in quantity Generlac 10 gram/15 mL oral solution RxNorm: 930967 Mil liliter(s) 15 MILLILITER(S) PO TWO TO THREE TIMES DAILY 04/04/2018 05/03/2018 Inacti ve Ciprodex 0.3 %-0.1 % ear drops,suspension RxNorm: 770241 Drop(s) 4 DROP(S) OTIC BID 04/04/2018 04/17/2018 Inactive diazepam 10 mg tablet RxNorm: 208224 1 Tablet(s) PO QHS as needed 1 05/03/2018 Inactive famotidine 40 mg/5 mL (8 mg/mL) oral suspension RxNorm: 3102 74 2.5 Milliliter(s) PO QHS 04/04/2018 04/28/2018 Inactive Generlac 10 gram/15 mL oral solution RxNorm: 956836 15 MILLILITER(S) PO TWO TO THREE TIMES DAILY 03/24/2018 04/03/2018 Inactive Singulair 10 mg tablet RxNorm: 841593 1 TABLET(S) PO QD 03/18/2018 Inactive Ciprodex 0.3 %-0.1 % ear drops,suspension RxNorm: 511946 Drop(s) 4 DROP(S) OTIC BID 03/08/2018 03/21/2018 Inactive Generlac 10 gram/15 mL oral solution RxNorm: 731139 15 Milliliter(s) PO two to three times daily 03/03/2018 03/23/2018 Inactive meclizine 12.5 mg tablet RxNorm: 322499 1 Tablet(s) PO TID as neede d 02/10/2018 04/10/2018 Inactive change in quantity meclizine 12.5 mg tablet RxNorm: 200730 1 Tablet(s) PO BID as neede d 02/07/2018 02/09/2018 Inactive change in quantity Ciprodex 0.3 %-0.1 % ear drops,suspension RxNorm: 915894 Drop(s) 4 DROP(S) OTIC BID 02/02/2018 03/08/2018 Inactive sertraline 50 mg tablet RxNorm: 631593 1 TABLET(S) PO QHS 01/25/2018 07/05/2018 Inactive Zithromax 200 mg/5 mL oral suspension RxNorm: 852146 12.5 Dilcia liter(s) PO QD 12/31/2017 01/04/2018 Inactive Pepcid 20 mg tablet RxNorm: 869533 TABLET(S) 1 TABLET(S) PO QHS 04/29/2018 Inactive famotidine 40 mg/5 mL (8 mg/mL) oral suspension RxNorm: 3102 74 2.5 Milliliter(s) PO QHS 12/28/2017 12/27/2017 Inactive famotidine 40 mg/5 mL (8 mg/mL) oral suspension RxNorm: 3102 74 2.5 Milliliter(s) PO QHS 12/28/2017 04/03/2018 Inactive Ciprodex 0.3 %-0.1 % ear drops,suspension RxNorm: 831513 Drop(s) 4 DROP(S) OTIC BID 12/27/2017 02/02/2018 Inactive meclizine 12.5 mg tablet RxNorm: 764254 1 Tablet(s) PO BID as neede d 12/23/2017 02/06/2018 Inactive change in quantity Protonix 40 mg tablet,delayed release RxNorm: 824917 1 Tablet(s) PO or per feeding tube BID 12/16/2017 07/13/2018 Inactive oxcarbazepine 300 mg/5 mL (60 mg/mL) oral suspension RxNorm: 771811 15 Milliliter(s) PO BID 12/16/2017 07/08/2018 Inactive meclizine 12.5 mg tablet RxNorm: 209497 1 Tablet(s) PO BID as neede d 12/15/2017 02/07/2018 Inactive change in quantity Pepcid 40 mg/5 mL (8 mg/mL) oral suspension RxNorm: 524421 5 Milliliter(s) PO QHS to replace nighttime pantoprazole dose 12/14/2017 12/27/2017 Inact марина meclizine 12.5 mg tablet RxNorm: 693775 1 Tablet(s) PO BID as neede d 12/13/2017 12/23/2017 Inactive diazepam 10 mg tablet RxNorm: 883039 1 Tablet(s) PO QHS as needed 0 12/02/2017 03/01/2018 Inactive prednisolone 15 mg/5 mL oral solution RxNorm: 249115 5 Milliliter(s) PO BID for 3 days then 5ml daily for 3 days then 2.5ml daily for 3 days 12/02/2017 12/13/2017 Inactive sertraline 50 mg tablet RxNorm: 451907 1 Tablet(s) PO QHS 11/04/2017 01/24/2018 Inactive Ciprodex 0.3 %-0.1 % ear drops,suspension RxNorm: 463316 Drop(s) 4 DROP(S) OTIC BID 10/18/2017 10/31/2017 Inactive Ciprodex 0.3 %-0.1 % ear drops,suspension RxNorm: 591654 Drop(s) 4 DROP(S) OTIC BID 10/18/2017 12/27/2017 Inactive Singulair 10 mg tablet RxNorm: 091055 1 Tablet(s) PO QD 09/30/2017 Inactive diazepam 5 mg/5 mL (1 mg/mL) oral solution RxNorm: 169690 2.5 Milliliter(s) PO QD give additional 5 mg dose if seizure occurs 09/17/2017 No Stop Date A ctive Bactrim DS 800 mg-160 mg tablet RxNorm: 228436 1 Tablet(s) PO BID 0 09/17/2017 09/23/2017 Inactive Ciprodex 0.3 %-0.1 % ear drops,suspension RxNorm: 472910 4 DROP (S) OTIC BID 09/13/2017 10/18/2017 Inactive cefdinir 250 mg/5 mL oral suspension RxNorm: 090895 12 Milliliter(s) PO QD though PEG tube 08/06/2017 08/15/2017 Inactive sertraline 50 mg tablet RxNorm: 757833 1 Tablet(s) PO QHS 08/02/2017 11/04/2017 Inactive Ciprodex 0.3 %-0.1 % ear drops,suspension RxNorm: 813633 4 DROP (S) OTIC BID 07/22/2017 08/11/2017 Inactive Singulair 10 mg tablet RxNorm: 366208 1 Tablet(s) PO QD 06/30/2017 Inactive diazepam 10 mg tablet RxNorm: 258360 TAKE 1 TABLET BY M OUTH EVERY NIGHT AT BEDTIME NEEDED 06/04/2017 07/03/2017 Inactive oxcarbazepine 300 mg/5 mL (60 mg/mL) oral suspension RxNorm: 808450 15 MILLILITER(S) PO BID 05/03/2017 12/16/2017 Inactive sertraline 50 mg tablet RxNorm: 197471 1 Tablet(s) PO QHS 05/03/2017 08/02/2017 Inactive Protonix 40 mg tablet,delayed release RxNorm: 665353 1 Tablet(s) PO or per feeding tube BID 04/26/2017 12/16/2017 Inactive Ciprodex 0.3 %-0.1 % ear drops,suspension RxNorm: 718962 4 DROP (S) OTIC BID 04/26/2017 05/23/2017 Inactive Generlac 10 gram/15 mL oral solution RxNorm: 892856 Mil liliter(s) TAKE 15 ML BY MOUTH TWO-THREE TIMES DAILY 04/08/2017 03/03/2018 Inactive Singulair 10 mg tablet RxNorm: 352681 1 Tablet(s) PO QD 03/03/2017 Inactive diazepam 10 mg tablet RxNorm: 432887 1 Tablet(s) PO QHS as needed 0 02/15/2017 06/04/2017 Inactive Singulair 10 mg tablet RxNorm: 354261 1 Tablet(s) PO QD 12/01/2016 Inactive Diflucan 150 mg tablet RxNorm: 582367 Tablet(s) Give 1 tab PO now and then repeat dose in 5 days 11/10/2016 03/31/2017 Inactive Zithromax 200 mg/5 mL oral suspension RxNorm: 961780 12.5 Dilcia liter(s) PO QD 11/10/2016 11/14/2016 Inactive Singulair 10 mg tablet RxNorm: 938309 TAKE 1 TABLET BY MOUTH ON CE DAILY 11/02/2016 12/01/2016 Inactive diazepam 10 mg tablet RxNorm: 165186 TAKE 1 TABLET BY M OUTH EVERY NIGHT AT BEDTIME NEEDED 10/21/2016 11/19/2016 Inactive sertraline 50 mg tablet RxNorm: 999469 1 Tablet(s) PO QHS 10/12/2016 01/09/2017 Inactive fluconazole 100 mg tablet RxNorm: 221375 1 Tablet(s) PO QD 09/23/19 17 09/24/2016 Inactive fluconazole 100 mg tablet RxNorm: 019225 1 Tablet(s) PO QD 09/23/19 17 09/21/2016 Inactive Bactrim DS 800 mg-160 mg tablet RxNorm: 881156 1 Tablet(s) PO BID 0 09/10/2016 09/09/2016 Inactive Bactrim DS 800 mg-160 mg tablet RxNorm: 823580 1 Tablet(s) PO BID 0 09/10/2016 09/16/2016 Inactive oxcarbazepine 300 mg/5 mL (60 mg/mL) oral suspension RxNorm: 524161 15 Milliliter(s) PO BID 09/07/2016 03/05/2017 Inactive sertraline 50 mg tablet RxNorm: 473179 1 Tablet(s) PO QHS 07/06/2016 10/03/2016 Inactive Pepcid 20 mg tablet RxNorm: 843745 Tablet(s) 1 TABLET(S) PO QHS 08/201603/08/2017 Inactive sertraline 50 mg tablet RxNorm: 177246 1 Tablet(s) PO QHS 06/08/2016 05/03/2017 Inactive Generlac 10 gram/15 mL oral solution RxNorm: 711312 Mil liliter(s) TAKE 15 ML BY MOUTH TWO-THREE TIMES DAILY 06/08/2016 09/08/2016 Inactive Pepcid 20 mg tablet RxNorm: 606540 1 TABLET(S) PO QHS 06/04/201607/2016 Inactive fluconazole 100 mg tablet RxNorm: 358082 1 Tablet(s) QD through PEG tube 05/13/2016 12/01/2017 Inactive Diflucan 150 mg tablet RxNorm: 958442 Give 1 tab PO now and then repeat dose in 5 days 03/19/2016 11/09/2016 Inactive ceftriaxone 1 gram solution for injection RxNorm: 9574118 1 Gram(s) IM QD Wednesday and Wednesday03/19/2016 11/09/2016 Inactive lidocaine 10 mg/mL (1 %) injection solution RxNorm: 9781886 Use as directed to reconstitute Rocephin when needed 03/19/2016 12/13/2017 Inactive Generlac 10 gram/15 mL oral solution RxNorm: 413960 JOE E 15 ML BY MOUTH TWO- THREE TIMES DAILY 03/19/2016 06/07/2016 Inactive oxcarbazepine 300 mg/5 mL oral suspension RxNorm: 789744 15 Milliliter(s) PO BID 03/13/2016 09/07/2016 Inactive Ciprodex 0.3 %-0.1 % ear drops,suspension RxNorm: 573064 4 DROP (S) OTIC BID 03/09/2016 03/15/2016 Inactive cefdinir 250 mg/5 mL oral suspension RxNorm: 404231 11. 75 Milliliter(s) PO QD though PEG tube 03/02/2016 03/08/2016 Inactive cefdinir 250 mg/5 mL oral suspension RxNorm: 680455 11. 75 Milliliter(s) PO QD though PEG tube 02/24/2016 03/01/2016 Inactive cefdinir 250 mg/5 mL oral suspension RxNorm: 332837 11. 75 Milliliter(s) PO QD though PEG tube 02/24/2016 02/23/2016 Inactive Ciprodex 0.3 %-0.1 % ear drops,suspension RxNorm: 430081 4 Drop (s) OTIC BID 02/24/2016 03/01/2016 Inactive Generlac 10 gram/15 mL oral solution RxNorm: 945659 JOE E 15 ML BY MOUTH TWICE DAILY 02/17/2016 03/18/2016 Inactive Generlac 10 gram/15 mL oral solution RxNorm: 765264 15 Millilit er(s) PO BID 01/23/2016 02/16/2016 Inactive Pepcid 20 mg tablet RxNorm: 513861 1 TABLET(S) PO QHS 01/13/201605/07 Inactive Ciprodex 0.3 %-0.1 % ear drops,suspension RxNorm: 747226 4 Drop (s) OTIC BID 12/23/2015 12/29/2015 Inactive sertraline 50 mg tablet RxNorm: 207759 1 Tablet(s) PO QHS 12/16/2015 06/07/2016 Inactive Zithromax 500 mg tablet RxNorm: 602185 1 Tablet(s) PO QD 12/16/2015 0 12/22/2015 Inactive Pepcid 20 mg tablet RxNorm: 802218 1 Tablet(s) PO QHS 12/16/201501/02 Inactive Zithromax 500 mg tablet RxNorm: 405668 1 Tablet(s) PO QD 11/12/2015 0 11/18/2015 Inactive Singulair 10 mg tablet RxNorm: 295292 1 Tablet(s) PO BID 10/16/2015 0 11/11/2015 Inactive diazepam 10 mg tablet RxNorm: 192147 1 Tablet(s) PO QHS 10/07/2015 Inactive diazepam 10 mg tablet RxNorm: 648006 1 Tablet(s) PO QHS 10/07/2015 Inactive fexofenadine 30 mg/5 mL oral suspension RxNorm: 443509 10 Milliliter(s) PO one to two times daily PRN allergies 09/20/2015 12/15/2015 Inactive ceftriaxone 1 gram solution for injection RxNorm: 7827571 1 Gram (s) IM QD 09/20/2015 09/21/2015 Inactive Ciprodex 0.3 %-0.1 % ear drops,suspension RxNorm: 583754 4 Drop (s) OTIC BID 09/20/2015 10/03/2015 Inactive Protonix 40 mg tablet,delayed release RxNorm: 701973 1 Tablet(s) PO or per feeding tube BID 08/21/2015 12/18/2015 Inactive Carafate 100 mg/mL oral suspension RxNorm: 415041 10 Mi lliliter(s) Miscellaneous per feeding tube AC & HS 08/21/2015 09/19/2015 Inactive Zyrtec 10 mg tablet RxNorm: 8149581 1 Tablet(s) PO QD No Start Date Active diazepam 20 mg rectal kit RxNorm: 327585 RTL as needed No Start Date Active Lortab Elixir 10 mg-300 mg/15 mL oral solution RxNorm: 00950 45 8 PO Q6-8H as needed No Start Date Active ondansetron HCl 4 mg/5 mL oral solution RxNorm: 421363 10 Milliliter(s) PO as needed and through tube No Start Date Active sertraline 50 mg tablet RxNorm: 259253 1 Tablet(s) PO QD No Start D ate 12/15/2015 Inactive Brittany 180 mg tablet RxNorm: 022689 1 Tablet(s) PO QD No Start Date 06/12/2018 Inactive Generlac 10 gram/15 mL oral solution RxNorm: 196397 15 Millilit er(s) PO BID No Start Date 01/22/2016 Inactive oxcarbazepine 300 mg/5 mL oral suspension RxNorm: 894232 13.5 Milliliter(s) PO QAM and 15ml in the evening No Start Date 12/15/2015 Inactive Singulair 10 mg tablet RxNorm: 765661 1 Tablet(s) PO QD No Start Da te 11/30/2016 Inactive meclizine 12.5 mg tablet RxNorm: 050453 1 Tablet(s) PO TID as needed for dizziness No Start Date 09/13/2017 Inactive meclizine 12.5 mg tablet RxNorm: 104074 1 Tablet(s) PO BID No Start Date 12/12/2017 Inactive fluconazole 100 mg tablet RxNorm: 810133 1 Tablet(s) QD through PEG tube No Start Date 05/12/2016 Inactive Flomax 0.4 mg capsule RxNorm: 272929 1 Capsule(s) PO QD No Start Da te 06/12/2018 Inactive diazepam 10 mg tablet RxNorm: 845242 1 Tablet(s) PO QHS as needed N o Start Date 02/14/2017 Inactive Generlac 10 gram/15 mL oral solution RxNorm: 845947 15 Milliliter(s) PO two to three times daily No Start Date 03/02/2018 Inactive oxcarbazepine 300 mg/5 mL oral suspension RxNorm: 494932 15 Milliliter(s) PO BID No Start Date 12/15/2017 Inactive Medication Administered No Medication Administered data Immunizations Vaccine Codes Date Status Influenza CVX: 141 04/21/2019 Results No Results data Procedures Procedure Codes Date DEXAMETHASONE SODIUM PHOS CPT-4: J1100 05/03/2019 THER/PROPH/DIAG INJ SC/IM CPT-4: 63108 05/03/2019 CEFTRIAXONE SODIUM INJECTION CPT-4: J0696 03/19/2016 THER/PROPH/DIAG INJ SC/IM CPT-4: 26308 03/19/2016 DEXAMETHASONE SODIUM PHOS CPT-4: J1100 11/12/2015 THER/PROPH/DIAG INJ SC/IM CPT-4: 05988 11/12/2015 CEFTRIAXONE SODIUM INJECTION CPT-4: J0696 09/20/2015 THER/PROPH/DIAG INJ SC/IM CPT-4: 16389 09/20/2015 THER/PROPH/DIAG INJ SC/IM CPT-4: 40721 09/10/2015 METHYLPREDNISOLONE 40 MG INJ CPT-4: J1030 09/10/2015 TRIAMCINOLONE ACET INJ NOS CPT-4: J3301 09/10/2015 Vital Signs Date Vital 07/25/2019 Blood Pressure 1: 116/80 Code: 8480-6 BMI: 23.2 Code: 65480-7 Heart Rate 1: 81 bpm Height: 4'5" Respiratory Rate: 16 bpm SpO2: 100% Tempera ture: 36.8 (C) / 98.2 (F) Weight: 92 lbs 06/12/2019 Blood Pressure 1: 112/74 Code: 8480-6 BMI: 23.2 Code: 23666-1 Heart Rate 1: 102 bpm Height: 4'5" [...] 1: 114/70 Code: 8480-6 BMI: 23.1 Code: 07745-2 Heart Rate 1: 80 bpm Height: 4'6" Respiratory Rate: 20 bpm Temperature: 36 .5 (C) / 97.7 (F) Weight: 96 lbs Functional Status No Functional Status data Reason For Visit Reason For Visit Effective Dates Notes postnasal drip 07/25/2019 well woman exam (18-39 years) 06/12/2019 Annual [facility] follow up 05/08/2019 seizure 05/03/2019 decreased fluids, [...] visit Encounters Encounter Performer Location Codes Date ([id number]) OFFICE/OUTPATIENT VISIT EST Diagnosis: Sinusitis[ICD10: J32.9] Fatou Onofre KEILY GILBERT [employer] CPT-4: 01095 07/25/2019 ([id number]) PREV VISIT EST AGE 18-39 Diagnosis: Encounter for general adult medical examination with abnormal findings[ICD10: Z00.01] Diagnosis: Chronic pancreatitis[ICD10: K86.1] Diagnosis: Cerebral palsy, unspecified[ICD10: G80.9] Keily ARANGO DO [employer] CPT-4: 18094 06/12/2019 ([id number]) OFFICE/OUTPATIENT VISIT EST Diagnosis: Pneumonia, organism unspecified[ICD10: J18.9] Diagnosis: Breast mass, right[ICD10: N63.10] Keily ARANGO [employer] [facility] CPT-4: 14708 05/08/2019 ([id number]) OFFICE/OUTPATIENT VISIT EST Diagnosis: Allergic rhinitis due to pollen[ICD10: J30.1] Diagnosis: Otitis media, unspecified, right ear[ICD10: H66.91] Fatou ARANGO DO [facility] CPT-4: 78578 05/03/2019 ([id number]) OFFICE/OUTPATIENT VISIT EST Diagnosis: Irritability and anger[ICD10: R45.4] Nataliia ARANGO [employer] [facility] CPT-4: 91957 11/25/2018 ([id number]) OFFICE/OUTPATIENT VISIT EST Diagnosis: Acute suppurative otitis media without spontaneous rupture of ear drum, bilateral[ICD10: H66.003] Fatou ARANGO [employer] [facility] CPT-4: 61919 06/13/2018 ([id number]) OFFICE/OUTPATIENT VISIT EST Diagnosis: Other fatigue[ICD10: R53.83] Diagnosis: Anuria and oliguria[ICD10: R34] Diagnosis: Acute gastritis without bleeding[ICD10: K29.00] Fatou ARANGO [employer] [facility] CPT-4: 40433 01/04/2018 ([id number]) OFFICE/OUTPATIENT VISIT EST Diagnosis: Acute bronchitis, unspecified[ICD10: J20.9] Fatou ARANGO DO [facility] CPT-4: 38193 12/31/2017 ([id number]) PREV VISIT EST AGE 18-39 Diagnosis: Encounter for general adult medical examination without abnormal findings[ICD10: Z00.00] Diagnosis: Severe intellectual disabilities[ICD10: F72] Diagnosis: Allergic rhinitis due to pollen[ICD10: J30.1] Diagnosis: Epilepsy, unspecified, intractable, without status epilepticus[ICD10: G40.919] Diagnosis: Gastro-esophageal reflux disease without esophagitis[ICD10: K21.9] Keily ARANGO [employer] [facility] CPT-4: 11528 12/14/2017 ([id number]) OFFICE/OUTPATIENT VISIT EST Diagnosis: Allergic rhinitis due to pollen[ICD10: J30.1] Diagnosis: Epilepsy, unspecified, intractable, without status epilepticus[ICD10: G40.919] [facility]enicole [facility]: 42054 12/02/2017 ([id number]) OFFICE/OUTPATIENT VISIT EST Diagnosis: Other allergic rhinitis[ICD10: J30.89] [facility] CPT-4: 85499 10/12/2017 OFFICE/OUTPATIENT VISIT EST Diagnosis: Acute suppurative otitis media without spontaneous rupture of ear drum, recurrent, left ear[ICD10: H66.005] Diagnosis: Epilepsy, unspecified, intractable, without status epilepticus[ICD10: G40.919] Diagnosis: Hesitancy of micturition[ICD10: R39.11] Fatou [facility] CPT-4: 06716 09/17/2017 OFFICE/OUTPATIENT VISIT EST Diagnosis: Otitis media, unspecified, left ear[ICD10: H66.92] [facility]: 22865 08/06/2017 ([id number]) OFFICE/OUTPATIENT VISIT EST Diagnosis: Vertigo of central origin, 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.49] Diagnosis: Dizziness and giddiness[ICD10: R42] Keily NARANJO [facility] CPT-4: 03829 04/01/2017 OFFICE/OUTPATIENT VISIT EST Diagnosis: Vomiting, unspecified[ICD10: R11.10] Diagnosis: 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)[ICD10: K56.5] Diagnosis: Personal history of urinary calculi[ICD10: Z87.442] [facility]ely Hdz [facility]: 14122 03/01/2017 ([id number]) OFFICE/OUTPATIENT VISIT EST Diagnosis: Allergic rhinitis due to pollen[ICD10: J30.1] Diagnosis: Acute and subacute allergic otitis media (mucoid) (sanguinous) (serous), left ear[ICD10: H65.112] [facility]PT[facility]: 79152 11/10/2016 ([id number]) OFFICE/OUTPATIENT VISIT EST Diagnosis: 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] Diagnosis: Unspecified ovarian cyst, right side[ICD10: N83.201] Diagnosis: Cyst of kidney, 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] Keily ARANGO [facility] CPT-4: 84150 08/13/2016 ([id number]) OFFICE/OUTPATIENT VISIT EST Diagnosis: Rash and other nonspecific skin eruption[ICD10: R21] Aziza ARANGO [facility] CPT-4: 45142 03/27/2016 ([id number]) OFFICE/OUTPATIENT VISIT EST Diagnosis: Urinary tract infection, site not specified[ICD10: N39.0] Keily ARANGO [facility] CPT-4: 60134 03/23/2016 ([id number]) OFFICE/OUTPATIENT VISIT EST Diagnosis: Retention of urine, unspecified[ICD10: R33.9] Diagnosis: Dysuria[ICD10: R30.0] Diagnosis: Constipation, unspecified[ICD10: K59.00] Aziza Magallanes [facility]OMARA LAWTON [facility] CPT-[facility]: 58797 03/19/2016 ([id number]) OFFICE/OUTPATIENT VISIT EST Diagnosis: Acute sinusitis, unspecified[ICD10: J01.90] Keily ARANGO [facility] CPT-4: 35915 03/02/2016 OFFICE/OUTPATIENT VISIT EST Diagnosis: Other fatigue[ICD10: R53.83] Diagnosis: Retention of urine, unspecified[ICD10: R33.9] Diagnosis: Dysuria[ICD10: R30.0] Diagnosis: Generalized abdominal pain[ICD10: R10.84] 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] Aziza ARANGO [facility] CPT-4: 55687 02/24/2016 ([id number]) OFFICE/OUTPATIENT VISIT EST Diagnosis: Chronic mucoid otitis media, right ear[ICD10: 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] Diagnosis: Allergic rhinitis, unspecified[ICD10: J30.9] Diagnosis: 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] Keily ARANGO [facility] CPT-4: 13340 12/16/2015 ([id number]) OFFICE/OUTPATIENT VISIT EST Diagnosis: Allergic rhinitis, unspecified[ICD10: J30.9] Diagnosis: Acute recurrent sinusitis, unspecified[ICD10: J01.91] Keily ARANGO [facility] CPT-4: 03079 11/12/2015 ([id number]) OFFICE/OUTPATIENT VISIT EST Diagnosis: Other seasonal allergic rhinitis[ICD10: J30.2] Diagnosis: Nausea with vomiting, unspecified[ICD10: R11.2] Diagnosis: Epigastric pain[ICD10: R10.13] [facility] CPT-4: 86000 10/16/2015 OFFICE/OUTPATIENT VISIT EST Diagnosis: Encounter for follow-up examination after completed treatment for conditions other than malignant neoplasm[ICD10: Z09] Diagnosis: Generalized abdominal pain[ICD10: R10.84] [facility] CPT-4: 51185 09/23/2015 ([id number]) OFFICE/OUTPATIENT VISIT EST Diagnosis: Otitis media, unspecified, right ear[ICD10: H66.91] Diagnosis: Constipation, unspecified[ICD10: K59.00] Diagnosis: Allergic rhinitis, unspecified[ICD10: J30.9] Aziza [facility] CPT-4: 38990 09/20/2015 OFFICE/OUTPATIENT VISIT EST Diagnosis: Allergic rhinitis, unspecified[ICD10: J30.9] Diagnosis: Unspecified perforation of tympanic membrane, right ear[ICD10: H72.91] Bibiana Garg KEILY [facility] CPT-4: 35081 09/10/2015 OFFICE/OUTPATIENT VISIT NEW Diagnosis: Epilepsy, unspecified, intractable, without status epilepticus[ICD10: G40.919] Diagnosis: Gastric ulcer, unspecified as acute or chronic, without hemorrhage or perforation[ICD10: K25.9] Diagnosis: Severe intellectual disabilities[ICD10: F72] Keily [facility] CPT-4: 39798 08/21/2015 Plan of Care Planned Activity Notes Codes Status Date Visit Diagnosis Plan: Sinusitis Discussion: due to [facility] of illness and symptoms, cefdinir prescribed to take as directed. call office with any new or worsening symptoms. ICD-9 : 473.9 ICD-10 : J32.9 07/25/2019 Appointment: Fatou Onofre [address] [place], [place] [address] ACUTE ILLNESS 07/25/2019 Patient Education: cefdinir- [employer] Coupon [id number] [email or web address]/sampleGlycode/resources/getResource/61/[email or web address]-[email or web address] Completed 07/25/2019 Visit Diagnosis Plan: Chronic pancreatitis Discussion: Continue zenpep and recheck CMP with amylase/lipase in 1 month ICD-9 : 577.1 ICD-10 : K86.1 06/12/2019 Appointment: Keily Arango WPtel: [address] [place] [address] Annual Well Visit 06/12/2019 Visit Diagnosis Plan: [...] J18.9 05/08/2019 Appointment: Keily Arango WPtel: [phone] [facility] Follow Up 05/08/2019 Visit Diagnosis [...] ICD-10 : H66.91 05/03/2019 Appointment: Fatou Onofre [address] [place] [address] ACUTE ILLNESS 05/03/2019 Patient Education: amoxicillin- [employer] Coupon [id number] https://[email or web address].Spaces 2 Host/samplemd/resources/getResource/61/[email or web address] Completed 05/03/2019 Visit Diagnosis Plan: Irritability and [...] : R45.4 11/25/2018 Appointment: Nataliia Hsieh [address] ACUTE ILLNESS 11/25/2018 Visit Diagnosis Plan: Acute suppurative otitis media without spontaneous rupture of ear drum, bilateral Discussion: cefdinir for 10 days. if wor sening symptoms later this week, call clinic. push fluids and tylenol/ibuprofen prn pain or fever. ICD-9 : 382.00 ICD-10 : H66.003 06/13/2018 Appointment: Fatou Onofre [address] [place] [address] ACUTE ILLNESS 06/13/2018 Visit Diagnosis Plan: Anuria [...] ICD-10 : K29.00 01/04/2018 Appointment: Fatou Onofre [address] [place] [address] ACUTE ILLNESS 01/04/2018 Patient Education: Patient Medication Summary Completed 01/04/2018 Visit Diagnosis Plan: Acute bronchitis, unspecified Di scussion: zithromax prescribed to take as directed. continue with allergy meds including flonase to help dry congestion. call office next week if new or worsening symptoms. ICD-9 : 466.0 ICD-10 : J20.9 12/31/2017 Appointment: Fatou Onofre [address] [facility] ACUTE ILLNESS 12/31/2017 Patient Education: Patient Medication [...] G40.919 12/14/2017 Visit Diagnosis Plan: Encounter for [facility] medical examination without abnormal findings Discussion: Had recent lab done Follow Up: 3 months ICD-9 : V70.9 ICD-10 : Z00.00 12/14/2017 Appointment: Keily Arango WPtel: [address] [place] [address] CHECK UP 12/14/2017 Patient Education: Patient Medication [...] Keily [facility]el[facility] [facility] 12/02/2017 Patient Education: Patient Medication Summary Completed 12/02/2017 Visit Diagnosis Plan: Other allergic rhinitis Discussi on: symptoms most likely caused from allergies. patient sent to hospital for decadron injection. instructed to restart patient's flonase at home. if new or worsening symptoms, call or rtc. ICD-9 : 477.8 ICD-10 : J30.89 10/12/2017 Appointment: Fatou Onofre [address] [facility] ACUTE ILLNESS 10/12/2017 Patient Education: Patient [...] : G40.919 09/17/2017 Appointment: Fatou Onofre [address] [facility] ACUTE ILLNESS 09/17/2017 Patient Education: Patient Medication Summary Completed 09/17/2017 Visit Diagnosis Plan: Otitis media, unspecified, left ear Discussion: cefdinir prescribed daily for 10 days. instructed to administer tylenol/ibuprofen for pain or fever. if no improvement, or worsening symptoms, call or rtc. ICD-9 : 380.14 ICD-10 : H66.92 08/06/2017 App[facility]ment[facility] [facility] 08/06/2017 Patient Education: Patient Medication Summary Completed 08/06/2017 Patient Education: Patient Medication Summary Completed 08/02/2017 Patient Education: Patient Medication Summary Completed 04/21/2017 Care Plan: MRI BRAIN STEM W/O DYE LOINC : 06715-2 Pending 04/21/2017 Patient Education: Patient Medication Summary Completed 04/20/2017 Care Plan: MRI BRAIN STEM W/O DYE LOINC : 77790-9 Pending 04/20/2017 Visit Diagnosis Plan: Vertigo of central origin, unspe cified ear Discussion: Continue meclizine at 12.5mg po BID for 2 more weeks then go to 12.5mg daily for 2 weeks then 6.25mg daily for 2 weeks then stop Notify if any symptoms return with weaning process ICD-9 : 386.2 ICD-10 : H81.49 04/01/2017 Appointment: Keily Arango WPtel: [phone] [facility] FOLLOW UP 04/01/2017 Patient Education: Patient Medication Summary Completed 04/01/2017 Patient Education: Patient Medication Summary Completed 03/09/2017 Care Plan: CT HEAD/BRAIN W/O DYE LOINC : 71630-4 Pending 03/09/2017 Visit Plan: It's difficult to [...] indicated. 03/01/2017 Appointment: Emely Hdz WPtel: [phone] [facility] ACUTE ILLNESS 03/01/2017 Patient Education: Patient Medication Summary Completed 03/01/2017 Patient Education: Patient Medication Summary Completed 12/17/2016 Visit Diagnosis Plan: Acute and subacute allergic otitis media (mucoid) (sanguinous) (serous), left ear Discussion: Zithromax ICD-9 : 381.05 ICD-10 : H65.112 11/10/2016 Visit Diagnosis Plan: Allergic rhinitis due to pollen Discussion: Continue zyrtec/singulair ICD-9 : 477.9 ICD-10 : J30.1 11/10/2016 Appointment: Keily Arango WPtel: [address] [place] [address] ACUTE ILLNESS 11/10/2016 Patient Education: Patient Medication Summary Completed 11/10/2016 Patient Education: Patient Medication Summary Completed 09/07/2016 Care Plan: URINALYSIS AUTO W/[place] : 40078-8 Pending 09/07/2016 Visit Diagnosis Plan: Cyst of [...] : N83.201 08/13/2016 Appointment: Keily Arango WPtel: [address] [place] [address] 08/12 confirmed-sp FOLLOW UP 08/13/2016 Patient Education: Patient Medication Summary Completed 08/13/2016 Patient Education: Patient Medication Summary Completed 05/19/2016 Care Plan: X-RAY EXAM OF FOOT left foot LOINC : 26 095-0 Pending 05/19/2016 Visit Plan: Discussed with Dr Conchita MAGANA C to be drawn Order sent to Will call with results 03/27/2016 Appointment: Aziza Magallanes [address] [place] [address] ACUTE ILLNESS 03/27/2016 Patient Education: Patient Medication Summary Completed 03/27/2016 Visit Plan: Go for dose of rocephin 1gm IM today and tomorrow then done Diflucan 150mg x1 today Discussed with mom via phone about urology fwup--she will talk with her and let us know 03/23/2016 Appointment: Keily Arango WPtel: [phone] [facility] 03/23 confirmed ~sl FOLLOW UP 03/23/2016 Patient Education: Patient Medication Summary Completed 03/23/2016 Visit Plan: Per Dr Arango, straight cat h for UA and culture today Ok to have a standing order for further UA needs at for straight cath Rocephin IM today and daily through Wednesday Mom has arranged a family friend that is an [employer] COUNSELOR to give Wednesday and Sundays injections - [...] let us know 03/19/2016 Appointment: Aziza Magallanes [address] [place], [place] [address] ACUTE [facility] 03/19/2016 Patient Education: Patient Medication Summary Completed 03/19/2016 Visit Plan: 1 more week of cefdinir 03/02/2016 Appointment: Keily Arango WPtel: [phone] [facility] 03/02 confirmed~sl WORK IN 03/02/2016 Patient Education: [...] seen if worsening 02/24/2016 Appointment: Aziza Magallanes [address] [place], [place] [address] ACUTE ILLNESS 02/24/2016 Patient Education: Patient Medication Summary Completed 02/24/2016 Care Plan: CHEST X-RAY 2VW FRONTAL&LATL LOINC : 52987-2 Pending 02/24/2016 Care Plan: X-RAY EXAM OF ABDOMEN LOINC : 13885-5 Pending 02/24/2016 Visit Plan: Repeat zithromax x1 week Cip rodex to right ear x1 week Add Pepcid q HS x2-4 weeks for total histamine blockade and for extra stomach protection while on zithromax 12/16/2015 Appointment: [facility]el[phone] [facility] [facility] 6/9 lm~sl 6/10 lm ~sl FOLLOW UP 12/16/2015 Patient Education: Patient Medication Summary Completed 12/16/2015 Patient Education: [facility] - [employer]aving [employer] - Sertraline HCL - 18-64 - Dynamic Portal ID Completed 12/16/2015 Visit Plan: Saline nasal flushes prn. Ty lenol/Motrin prn headache. Notify if persists/symptoms worsens Dexamethasone given 11/12/2015 Appointment: Keily [facility]ango [facility]Ptel[phone] [facility] [place] 5/9 lm~sl 5/10 lm~sl 5/10 confirm-sp [...] visits for Belkys 10/16/2015 Appointment: Aziza Magallanes [address] [place], [place] [address] ACUTE ILLNESS 10/16/2015 Patient Education: Patient Medication Summary Completed 10/16/2015 Appointment: Aziza Magallanes [address] [place], [place] [address] [place] canceled, feeling better CANCELED 016 Visit Plan: No further abx needed Go mariela k to jevity for next 3 days and restart carafate Notify if abdominal pain worsens 09/23/2015 Appointment: Keily Arango WPtel: [phone] [facility] 09/19 confirmed-sp FOLLOW UP 09/23/2015 Patient Education: [...] done in the past. Order sent to [facility] since [facility] does not have in stock. Recheck in [...] try for now. 09/20/2015 Appointment: Aziza Magallanes [address] [facility] ACUTE ILLNESS 09/20/2015 Patient Education: Patient Medication Summary Completed 09/20/2015 Visit Plan: Depo Medrol 40mg/ Kenalog 40 mg IM today Resume Ciprodex otic gtts. bid to Rt. ear 09/10/2015 Appointment: Bibiana [facility]arg [facility]Ptel[phone] [facility] 09/08 confirmed-sp ACUTE ILLNESS 09/10/2015 Patient [...] arranged a family friend that is an C[employer] AND GUIDANCE COUNSELOR to give Wednesday and Sundays injections - rxs for rocephin and lido sent to [facility] cannot order the lido in the qty [...] done in the past. Order sent to [facility] since [employer] does not have in stock. Recheck in [...]
--- OUTSIDE RECORDS SUMMARY | 2019-11-10 19:39 | XMS REPORT | CCD ---
Author Author Belkys Arango D.O. 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 Name Role Phone Keily Arango D.O., PP Unavailable CCM Unavailable Summary Purpose Interface Exchange Insurance Providers Payer name Policy type / Coverage type Covered democrat ID Effective Begin Date Effective End Date [employer] [facility] Medicaid [id number] U nknown Family History Family History data not found Social History Social History Element Codes Description Effective Dates Marital status Unknown Single 08/21/2015 Employment Unknown Currently unemployed Physically handicapped 08/21/[address]: 063629836 Has never smoked or chewed tobacco 08/21/[address]: 962956703 Never drinks alcohol 2015 Allergies, Adverse Reactions, [...] Start Date Stop Date Status Fill Instructions cefdinir 250 mg/5 mL oral suspension RxNorm: 308351 12 Milliliter(s) Oral QD though PEG tube 07/25/2019 08/03/2019 Active Zenpep 40,000 unit-126,000 unit-168,000 unit capsule,d elayed release RxNorm: 9769838 1 Capsule(s) Oral AC 07/10/2019 11/06/2019 Active famotidine 20 mg tablet RxNorm: 894812 TAKE 1 TABLET BY MOUTH EVERY NIGHT AT BEDTIME 07/09/2019 01/04/2020 Active sertraline 50 mg tablet RxNorm: 963234 TAKE 1 TABLET BY MOUTH EVERY NIGHT AT BEDTIME 07/09/2019 09/06/2019 Active Zenpep 40,000 unit-126,000 unit-168,000 unit capsule,d elayed release RxNorm: 1137499 1 Capsule(s) Oral AC 06/12/2019 07/09/2019 Inactive Zenpep 40,000 unit-126,000 unit-168,000 unit capsule,d elayed release RxNorm: 5521178 1 Capsule(s) Oral AC 05/24/2019 05/23/2019 Inactive Zenpep 40,000 unit-126,000 unit-168,000 unit capsule,d elayed release RxNorm: 6537544 1 Capsule(s) Oral AC 05/24/2019 06/11/2019 Inactive Ciprodex 0.3 %-0.1 % ear drops,suspension RxNorm: 090667 DROP(S) 4 DROP(S) OTIC BID 05/22/2019 06/18/2019 Inactive oxcarbazepine 300 mg/5 mL (60 mg/mL) oral suspension RxNorm: 341616 15 Milliliter(s) Oral two times a day 05/08/2019 11/03/2019 Active meclizine 12.5 mg tablet RxNorm: 876001 1 TABLET(S) PO TID NEEDE D 05/05/2019 08/02/2019 Active change in quantity Zithromax 200 mg/5 mL oral suspension RxNorm: 828726 12.5 Dilcia liter(s) Oral QD 05/04/2019 05/09/2019 Inactive amoxicillin 400 mg/5 mL oral suspension RxNorm: 787402 10 Milliliter(s) Oral two times a day 05/03/2019 05/13/2019 Inactive Singulair 10 mg tablet RxNorm: 193203 1 TABLET(S) PO QD 03/28/2019 Active Macrobid 100 mg capsule RxNorm: 542797 1 Capsule(s) PO BID 03/16/2003/22/2019 Inactive meclizine 12.5 mg tablet RxNorm: 960811 1 Tablet(s) PO TID as neede d 03/10/2019 05/04/2019 Inactive change in quantity Ciprodex 0.3 %-0.1 % ear drops,suspension RxNorm: 834877 DROP(S) 4 DROP(S) OTIC BID 03/08/2019 04/04/2019 Inactive oxcarbazepine 300 mg/5 mL (60 mg/mL) oral suspension RxNorm: 867775 15 Milliliter(s) PO BID 03/07/2019 05/07/2019 Inactive Macrobid 100 mg capsule RxNorm: 729116 1 Capsule(s) PO BID 02/21/2003/01/2019 Inactive Macrobid 100 mg capsule RxNorm: 781771 1 Capsule(s) PO BID 02/21/2002/19/2019 Inactive meclizine 12.5 mg tablet RxNorm: 458833 1 Tablet(s) PO TID as neede d 02/06/2019 03/07/2019 Inactive change in quantity Ciprodex 0.3 %-0.1 % ear drops,suspension RxNorm: 959369 DROP(S) 4 DROP(S) OTIC BID 01/30/2019 02/12/2019 Inactive diazepam 10 mg tablet RxNorm: 063833 1 Tablet(s) PO QHS as needed 0 01/27/2019 03/27/2019 Inactive sertraline 50 mg tablet RxNorm: 126376 1 Tablet(s) PO QHS 12/29/2018 06/26/2019 Inactive famotidine 20 mg tablet RxNorm: 007023 1 Tablet(s) PO QHS 12/29/2018 06/26/2019 Inactive Ciprodex 0.3 %-0.1 % ear drops,suspension RxNorm: 914878 DROP(S) 4 DROP(S) OTIC BID 12/14/2018 12/27/2018 Inactive Generlac 10 gram/15 mL oral solution RxNorm: 127273 15 Milliliter(s) PO TWO TO THREE TIMES DAILY 12/06/2018 06/03/2019 Inactive Protonix 40 mg tablet,delayed release RxNorm: 167902 1 Tablet(s) PO or per feeding tube BID 11/24/2018 05/22/2019 Inactive meclizine 12.5 mg tablet RxNorm: 101613 1 Tablet(s) PO TID as neede d 11/11/2018 02/06/2019 Inactive change in quantity Ciprodex 0.3 %-0.1 % ear drops,suspension RxNorm: 983031 DROP(S) 4 DROP(S) OTIC BID 11/08/2018 11/21/2018 Inactive diazepam 10 mg tablet RxNorm: 033580 1 Tablet(s) PO QHS as needed 0 10/21/2018 11/19/2018 Inactive Generlac 10 gram/15 mL oral solution RxNorm: 573932 Mil liliter(s) 15 MILLILITER(S) PO TWO TO THREE TIMES DAILY 10/07/2018 11/05/2018 Inacti ve Ciprodex 0.3 %-0.1 % ear drops,suspension RxNorm: 326637 DROP(S) DROP(S) 4 DROP(S) OTIC BID 08/26/2018 03/15/2019 Inactive meclizine 12.5 mg tablet RxNorm: 161879 1 TABLET(S) PO TID NEEDE D 07/25/2018 10/22/2018 Inactive change in quantity oxcarbazepine 300 mg/5 mL (60 mg/mL) oral suspension RxNorm: 399364 15 Milliliter(s) PO BID 07/08/2018 07/07/2018 Inactive oxcarbazepine 300 mg/5 mL (60 mg/mL) oral suspension RxNorm: 904581 15 Milliliter(s) PO BID 07/08/2018 01/03/2019 Inactive sertraline 50 mg tablet RxNorm: 032733 1 TABLET(S) PO QHS 07/06/2018 12/28/2018 Inactive Singulair 10 mg tablet RxNorm: 752735 1 TABLET(S) PO QD 06/24/2018 Inactive Ciprodex 0.3 %-0.1 % ear drops,suspension RxNorm: 292451 DROP(S) 4 DROP(S) OTIC BID 06/20/2018 06/19/2018 Inactive Ciprodex 0.3 %-0.1 % ear drops,suspension RxNorm: 851761 Drop(s) DROP(S) 4 DROP(S) OTIC BID 06/20/2018 07/03/2018 Inactive cefdinir 250 mg/5 mL oral suspension RxNorm: 066774 12 Milliliter(s) PO QD though PEG tube 06/13/2018 06/22/2018 Inactive famotidine 20 mg tablet RxNorm: 049962 1 Tablet(s) PO QHS 05/31/2018 11/26/2018 Inactive famotidine 40 mg/5 mL (8 mg/mL) oral suspension RxNorm: 3102 74 2.5 Milliliter(s) PO QHS 04/29/2018 06/12/2018 Inactive meclizine 12.5 mg tablet RxNorm: 736596 1 TABLET(S) PO TID NEEDE D 04/25/2018 07/23/2018 Inactive change in quantity Generlac 10 gram/15 mL oral solution RxNorm: 616336 Mil liliter(s) 15 MILLILITER(S) PO TWO TO THREE TIMES DAILY 04/04/2018 05/03/2018 Inacti ve Ciprodex 0.3 %-0.1 % ear drops,suspension RxNorm: 917177 Drop(s) 4 DROP(S) OTIC BID 04/04/2018 04/17/2018 Inactive diazepam 10 mg tablet RxNorm: 796526 1 Tablet(s) PO QHS as needed 1 05/03/2018 Inactive famotidine 40 mg/5 mL (8 mg/mL) oral suspension RxNorm: 3102 74 2.5 Milliliter(s) PO QHS 04/04/2018 04/28/2018 Inactive Generlac 10 gram/15 mL oral solution RxNorm: 610874 15 MILLILITER(S) PO TWO TO THREE TIMES DAILY 03/24/2018 04/03/2018 Inactive Singulair 10 mg tablet RxNorm: 895615 1 TABLET(S) PO QD 03/18/2018 Inactive Ciprodex 0.3 %-0.1 % ear drops,suspension RxNorm: 441136 Drop(s) 4 DROP(S) OTIC BID 03/08/2018 03/21/2018 Inactive Generlac 10 gram/15 mL oral solution RxNorm: 788008 15 Milliliter(s) PO two to three times daily 03/03/2018 03/23/2018 Inactive meclizine 12.5 mg tablet RxNorm: 712037 1 Tablet(s) PO TID as neede d 02/10/2018 04/10/2018 Inactive change in quantity meclizine 12.5 mg tablet RxNorm: 183508 1 Tablet(s) PO BID as neede d 02/07/2018 02/09/2018 Inactive change in quantity Ciprodex 0.3 %-0.1 % ear drops,suspension RxNorm: 184076 Drop(s) 4 DROP(S) OTIC BID 02/02/2018 03/08/2018 Inactive sertraline 50 mg tablet RxNorm: 033306 1 TABLET(S) PO QHS 01/25/2018 07/05/2018 Inactive Zithromax 200 mg/5 mL oral suspension RxNorm: 512421 12.5 Dilcia liter(s) PO QD 12/31/2017 01/04/2018 Inactive Pepcid 20 mg tablet RxNorm: 265197 TABLET(S) 1 TABLET(S) PO QHS 04/29/2018 Inactive famotidine 40 mg/5 mL (8 mg/mL) oral suspension RxNorm: 3102 74 2.5 Milliliter(s) PO QHS 12/28/2017 12/27/2017 Inactive famotidine 40 mg/5 mL (8 mg/mL) oral suspension RxNorm: 3102 74 2.5 Milliliter(s) PO QHS 12/28/2017 04/03/2018 Inactive Ciprodex 0.3 %-0.1 % ear drops,suspension RxNorm: 295559 Drop(s) 4 DROP(S) OTIC BID 12/27/2017 02/02/2018 Inactive meclizine 12.5 mg tablet RxNorm: 462232 1 Tablet(s) PO BID as neede d 12/23/2017 02/06/2018 Inactive change in quantity Protonix 40 mg tablet,delayed release RxNorm: 467305 1 Tablet(s) PO or per feeding tube BID 12/16/2017 07/13/2018 Inactive oxcarbazepine 300 mg/5 mL (60 mg/mL) oral suspension RxNorm: 473349 15 Milliliter(s) PO BID 12/16/2017 07/08/2018 Inactive meclizine 12.5 mg tablet RxNorm: 547371 1 Tablet(s) PO BID as neede d 12/15/2017 02/07/2018 Inactive change in quantity Pepcid 40 mg/5 mL (8 mg/mL) oral suspension RxNorm: 430798 5 Milliliter(s) PO QHS to replace nighttime pantoprazole dose 12/14/2017 12/27/2017 Inact марина meclizine 12.5 mg tablet RxNorm: 838161 1 Tablet(s) PO BID as neede d 12/13/2017 12/23/2017 Inactive diazepam 10 mg tablet RxNorm: 556078 1 Tablet(s) PO QHS as needed 0 12/02/2017 03/01/2018 Inactive prednisolone 15 mg/5 mL oral solution RxNorm: 669066 5 Milliliter(s) PO BID for 3 days then 5ml daily for 3 days then 2.5ml daily for 3 days 12/02/2017 12/13/2017 Inactive sertraline 50 mg tablet RxNorm: 416544 1 Tablet(s) PO QHS 11/04/2017 01/24/2018 Inactive Ciprodex 0.3 %-0.1 % ear drops,suspension RxNorm: 811715 Drop(s) 4 DROP(S) OTIC BID 10/18/2017 10/31/2017 Inactive Ciprodex 0.3 %-0.1 % ear drops,suspension RxNorm: 202215 Drop(s) 4 DROP(S) OTIC BID 10/18/2017 12/27/2017 Inactive Singulair 10 mg tablet RxNorm: 426482 1 Tablet(s) PO QD 09/30/2017 Inactive diazepam 5 mg/5 mL (1 mg/mL) oral solution RxNorm: 305985 2.5 Milliliter(s) PO QD give additional 5 mg dose if seizure occurs 09/17/2017 No Stop Date A ctive Bactrim DS 800 mg-160 mg tablet RxNorm: 025752 1 Tablet(s) PO BID 0 09/17/2017 09/23/2017 Inactive Ciprodex 0.3 %-0.1 % ear drops,suspension RxNorm: 216774 4 DROP (S) OTIC BID 09/13/2017 10/18/2017 Inactive cefdinir 250 mg/5 mL oral suspension RxNorm: 020469 12 Milliliter(s) PO QD though PEG tube 08/06/2017 08/15/2017 Inactive sertraline 50 mg tablet RxNorm: 472059 1 Tablet(s) PO QHS 08/02/2017 11/04/2017 Inactive Ciprodex 0.3 %-0.1 % ear drops,suspension RxNorm: 683524 4 DROP (S) OTIC BID 07/22/2017 08/11/2017 Inactive Singulair 10 mg tablet RxNorm: 894509 1 Tablet(s) PO QD 06/30/2017 Inactive diazepam 10 mg tablet RxNorm: 553579 TAKE 1 TABLET BY M OUTH EVERY NIGHT AT BEDTIME NEEDED 06/04/2017 07/03/2017 Inactive oxcarbazepine 300 mg/5 mL (60 mg/mL) oral suspension RxNorm: 692886 15 MILLILITER(S) PO BID 05/03/2017 12/16/2017 Inactive sertraline 50 mg tablet RxNorm: 941278 1 Tablet(s) PO QHS 05/03/2017 08/02/2017 Inactive Protonix 40 mg tablet,delayed release RxNorm: 878114 1 Tablet(s) PO or per feeding tube BID 04/26/2017 12/16/2017 Inactive Ciprodex 0.3 %-0.1 % ear drops,suspension RxNorm: 886106 4 DROP (S) OTIC BID 04/26/2017 05/23/2017 Inactive Generlac 10 gram/15 mL oral solution RxNorm: 506415 Mil liliter(s) TAKE 15 ML BY MOUTH TWO-THREE TIMES DAILY 04/08/2017 03/03/2018 Inactive Singulair 10 mg tablet RxNorm: 397842 1 Tablet(s) PO QD 03/03/2017 Inactive diazepam 10 mg tablet RxNorm: 402538 1 Tablet(s) PO QHS as needed 0 02/15/2017 06/04/2017 Inactive Singulair 10 mg tablet RxNorm: 148251 1 Tablet(s) PO QD 12/01/2016 Inactive Diflucan 150 mg tablet RxNorm: 966662 Tablet(s) Give 1 tab PO now and then repeat dose in 5 days 11/10/2016 03/31/2017 Inactive Zithromax 200 mg/5 mL oral suspension RxNorm: 247974 12.5 Dilcia liter(s) PO QD 11/10/2016 11/14/2016 Inactive Singulair 10 mg tablet RxNorm: 685543 TAKE 1 TABLET BY MOUTH ON CE DAILY 11/02/2016 12/01/2016 Inactive diazepam 10 mg tablet RxNorm: 250790 TAKE 1 TABLET BY M OUTH EVERY NIGHT AT BEDTIME NEEDED 10/21/2016 11/19/2016 Inactive sertraline 50 mg tablet RxNorm: 394326 1 Tablet(s) PO QHS 10/12/2016 01/09/2017 Inactive fluconazole 100 mg tablet RxNorm: 887603 1 Tablet(s) PO QD 09/23/19 17 09/24/2016 Inactive fluconazole 100 mg tablet RxNorm: 964338 1 Tablet(s) PO QD 09/23/19 17 09/21/2016 Inactive Bactrim DS 800 mg-160 mg tablet RxNorm: 005967 1 Tablet(s) PO BID 0 09/10/2016 09/09/2016 Inactive Bactrim DS 800 mg-160 mg tablet RxNorm: 313085 1 Tablet(s) PO BID 0 09/10/2016 09/16/2016 Inactive oxcarbazepine 300 mg/5 mL (60 mg/mL) oral suspension RxNorm: 457411 15 Milliliter(s) PO BID 09/07/2016 03/05/2017 Inactive sertraline 50 mg tablet RxNorm: 341091 1 Tablet(s) PO QHS 07/06/2016 10/03/2016 Inactive Pepcid 20 mg tablet RxNorm: 420766 Tablet(s) 1 TABLET(S) PO QHS 08/201603/08/2017 Inactive sertraline 50 mg tablet RxNorm: 112304 1 Tablet(s) PO QHS 06/08/2016 05/03/2017 Inactive Generlac 10 gram/15 mL oral solution RxNorm: 127912 Mil liliter(s) TAKE 15 ML BY MOUTH TWO-THREE TIMES DAILY 06/08/2016 09/08/2016 Inactive Pepcid 20 mg tablet RxNorm: 228455 1 TABLET(S) PO QHS 06/04/201607/2016 Inactive fluconazole 100 mg tablet RxNorm: 399306 1 Tablet(s) QD through PEG tube 05/13/2016 12/01/2017 Inactive Diflucan 150 mg tablet RxNorm: 021174 Give 1 tab PO now and then repeat dose in 5 days 03/19/2016 11/09/2016 Inactive ceftriaxone 1 gram solution for injection RxNorm: 3386680 1 Gram(s) IM QD Wednesday and Wednesday03/19/2016 11/09/2016 Inactive lidocaine 10 mg/mL (1 %) injection solution RxNorm: 7424428 Use as directed to reconstitute Rocephin when needed 03/19/2016 12/13/2017 Inactive Generlac 10 gram/15 mL oral solution RxNorm: 025963 JOE E 15 ML BY MOUTH TWO- THREE TIMES DAILY 03/19/2016 06/07/2016 Inactive oxcarbazepine 300 mg/5 mL oral suspension RxNorm: 881815 15 Milliliter(s) PO BID 03/13/2016 09/07/2016 Inactive Ciprodex 0.3 %-0.1 % ear drops,suspension RxNorm: 584266 4 DROP (S) OTIC BID 03/09/2016 03/15/2016 Inactive cefdinir 250 mg/5 mL oral suspension RxNorm: 952934 11. 75 Milliliter(s) PO QD though PEG tube 03/02/2016 03/08/2016 Inactive cefdinir 250 mg/5 mL oral suspension RxNorm: 582496 11. 75 Milliliter(s) PO QD though PEG tube 02/24/2016 03/01/2016 Inactive cefdinir 250 mg/5 mL oral suspension RxNorm: 523080 11. 75 Milliliter(s) PO QD though PEG tube 02/24/2016 02/23/2016 Inactive Ciprodex 0.3 %-0.1 % ear drops,suspension RxNorm: 282628 4 Drop (s) OTIC BID 02/24/2016 03/01/2016 Inactive Generlac 10 gram/15 mL oral solution RxNorm: 362828 JOE E 15 ML BY MOUTH TWICE DAILY 02/17/2016 03/18/2016 Inactive Generlac 10 gram/15 mL oral solution RxNorm: 146124 15 Millilit er(s) PO BID 01/23/2016 02/16/2016 Inactive Pepcid 20 mg tablet RxNorm: 308470 1 TABLET(S) PO QHS 01/13/201605/07 Inactive Ciprodex 0.3 %-0.1 % ear drops,suspension RxNorm: 268239 4 Drop (s) OTIC BID 12/23/2015 12/29/2015 Inactive sertraline 50 mg tablet RxNorm: 612669 1 Tablet(s) PO QHS 12/16/2015 06/07/2016 Inactive Zithromax 500 mg tablet RxNorm: 451806 1 Tablet(s) PO QD 12/16/2015 0 12/22/2015 Inactive Pepcid 20 mg tablet RxNorm: 956793 1 Tablet(s) PO QHS 12/16/201501/02 Inactive Zithromax 500 mg tablet RxNorm: 340491 1 Tablet(s) PO QD 11/12/2015 0 11/18/2015 Inactive Singulair 10 mg tablet RxNorm: 271769 1 Tablet(s) PO BID 10/16/2015 0 11/11/2015 Inactive diazepam 10 mg tablet RxNorm: 183656 1 Tablet(s) PO QHS 10/07/2015 Inactive diazepam 10 mg tablet RxNorm: 109432 1 Tablet(s) PO QHS 10/07/2015 Inactive fexofenadine 30 mg/5 mL oral suspension RxNorm: 761972 10 Milliliter(s) PO one to two times daily PRN allergies 09/20/2015 12/15/2015 Inactive ceftriaxone 1 gram solution for injection RxNorm: 4648270 1 Gram (s) IM QD 09/20/2015 09/21/2015 Inactive Ciprodex 0.3 %-0.1 % ear drops,suspension RxNorm: 019784 4 Drop (s) OTIC BID 09/20/2015 10/03/2015 Inactive Protonix 40 mg tablet,delayed release RxNorm: 321930 1 Tablet(s) PO or per feeding tube BID 08/21/2015 12/18/2015 Inactive Carafate 100 mg/mL oral suspension RxNorm: 565198 10 Mi lliliter(s) Miscellaneous per feeding tube AC & HS 08/21/2015 09/19/2015 Inactive Zyrtec 10 mg tablet RxNorm: 5159305 1 Tablet(s) PO QD No Start Date Active diazepam 20 mg rectal kit RxNorm: 224136 RTL as needed No Start Date Active Lortab Elixir 10 mg-300 mg/15 mL oral solution RxNorm: 02154 45 8 PO Q6-8H as needed No Start Date Active ondansetron HCl 4 mg/5 mL oral solution RxNorm: 563414 10 Milliliter(s) PO as needed and through tube No Start Date Active sertraline 50 mg tablet RxNorm: 745839 1 Tablet(s) PO QD No Start D ate 12/15/2015 Inactive Brittany 180 mg tablet RxNorm: 487285 1 Tablet(s) PO QD No Start Date 06/12/2018 Inactive Generlac 10 gram/15 mL oral solution RxNorm: 447249 15 Millilit er(s) PO BID No Start Date 01/22/2016 Inactive oxcarbazepine 300 mg/5 mL oral suspension RxNorm: 888660 13.5 Milliliter(s) PO QAM and 15ml in the evening No Start Date 12/15/2015 Inactive Singulair 10 mg tablet RxNorm: 075067 1 Tablet(s) PO QD No Start Da te 11/30/2016 Inactive meclizine 12.5 mg tablet RxNorm: 314644 1 Tablet(s) PO TID as needed for dizziness No Start Date 09/13/2017 Inactive meclizine 12.5 mg tablet RxNorm: 511399 1 Tablet(s) PO BID No Start Date 12/12/2017 Inactive fluconazole 100 mg tablet RxNorm: 475933 1 Tablet(s) QD through PEG tube No Start Date 05/12/2016 Inactive Flomax 0.4 mg capsule RxNorm: 063899 1 Capsule(s) PO QD No Start Da te 06/12/2018 Inactive diazepam 10 mg tablet RxNorm: 027198 1 Tablet(s) PO QHS as needed N o Start Date 02/14/2017 Inactive Generlac 10 gram/15 mL oral solution RxNorm: 991621 15 Milliliter(s) PO two to three times daily No Start Date 03/02/2018 Inactive oxcarbazepine 300 mg/5 mL oral suspension RxNorm: 220528 15 Milliliter(s) PO BID No Start Date 12/15/2017 Inactive Medication Administered No Medication Administered data Immunizations Vaccine Codes Date Status Influenza CVX: 141 04/21/2019 Results No Results data Procedures Procedure Codes Date DEXAMETHASONE SODIUM PHOS CPT-4: J1100 05/03/2019 THER/PROPH/DIAG INJ SC/IM CPT-4: 03117 05/03/2019 CEFTRIAXONE SODIUM INJECTION CPT-4: J0696 03/19/2016 THER/PROPH/DIAG INJ SC/IM CPT-4: 52034 03/19/2016 DEXAMETHASONE SODIUM PHOS CPT-4: J1100 11/12/2015 THER/PROPH/DIAG INJ SC/IM CPT-4: 72901 11/12/2015 CEFTRIAXONE SODIUM INJECTION CPT-4: J0696 09/20/2015 THER/PROPH/DIAG INJ SC/IM CPT-4: 71012 09/20/2015 THER/PROPH/DIAG INJ SC/IM CPT-4: 01426 09/10/2015 METHYLPREDNISOLONE 40 MG INJ CPT-4: J1030 09/10/2015 TRIAMCINOLONE ACET INJ NOS CPT-4: J3301 09/10/2015 Vital Signs Date Vital 07/25/2019 Blood Pressure 1: 116/80 Code: 8480-6 BMI: 23.2 Code: 67784-8 Heart Rate 1: 81 bpm Height: 4'5" Respiratory Rate: 16 bpm SpO2: 100% Tempera ture: 36.8 (C) / 98.2 (F) Weight: 92 lbs 06/12/2019 Blood Pressure 1: 112/74 Code: 8480-6 BMI: 23.2 Code: 15115-9 Heart Rate 1: 102 bpm Height: 4'5" [...] 1: 114/70 Code: 8480-6 BMI: 23.1 Code: 77154-5 Heart Rate 1: 80 bpm Height: 4'6" [...] this time follow up 10/16/2015 Patient's mother feliz starr she has been pulling at ears nonstop. She inquired about possibly getting allergy injections weekly or being tested. follow up 09/23/2015 follow up 09/20/2015 otalgia 09/10/2015 ~generic 08/21/2015 New Patient----estab lishing visit Encounters Encounter Performer Location Codes Date ([id number]) OFFICE/OUTPATIENT VISIT EST Diagnosis: Sinusitis[ICD10: J32.9] Fatou Bobby UrjanetMISHA GILBERT [employer] CPT-4: 70501 07/25/2019 ([id number]) PREV VISIT EST AGE 18-39 Diagnosis: Encounter for general adult medical examination with abnormal findings[ICD10: Z00.01] Diagnosis: Chronic pancreatitis[ICD10: K86.1] Diagnosis: Cerebral palsy, unspecified[ICD10: G80.9] Keily Bobby [employer] CPT-4: 12579 06/12/2019 ([id number]) OFFICE/OUTPATIENT VISIT EST Diagnosis: Pneumonia, organism unspecified[ICD10: J18.9] Diagnosis: Breast mass, right[ICD10: N63.10] Keily Bobby UrjanetMISHAHelishopter CPT-4: 60620 05/08/2019 ([id number]) OFFICE/OUTPATIENT VISIT EST Diagnosis: Allergic rhinitis due to pollen[ICD10: J30.1] Diagnosis: Otitis media, unspecified, right ear[ICD10: H66.91] Fatou LINARES SAlicia UrjanetMISHAER [employer] CPT-4: 98418 05/03/2019 ([id number]) OFFICE/OUTPATIENT VISIT EST Diagnosis: Irritability and anger[ICD10: R45.4] Nataliia MCHUGH [employer]licia [employer] CPT-4: 40003 11/25/2018 ([id number]) OFFICE/OUTPATIENT VISIT EST Diagnosis: Acute suppurative otitis media without spontaneous rupture of ear drum, bilateral[ICD10: H66.003] Fatou ARANGO DO [facility] CPT-4: 38099 06/13/2018 ([id number]) OFFICE/OUTPATIENT VISIT EST Diagnosis: Other fatigue[ICD10: R53.83] Diagnosis: Anuria and oliguria[ICD10: R34] Diagnosis: Acute gastritis without bleeding[ICD10: K29.00] Fatou ARANGO DO [facility] CPT-4: 00476 01/04/2018 ([id number]) OFFICE/OUTPATIENT VISIT EST Diagnosis: Acute bronchitis, unspecified[ICD10: J20.9] Fatou ARANGO DO [facility] CPT-4: 10596 12/31/2017 ([id number]) PREV VISIT EST AGE 18-39 Diagnosis: Encounter for general adult medical examination without abnormal findings[ICD10: Z00.00] Diagnosis: Severe intellectual disabilities[ICD10: F72] Diagnosis: Allergic rhinitis due to pollen[ICD10: J30.1] Diagnosis: Epilepsy, unspecified, intractable, without status epilepticus[ICD10: G40.919] Diagnosis: Gastro-esophageal reflux disease without esophagitis[ICD10: K21.9] Keily ARANGO Predect [facility] CPT-4: 33711 12/14/2017 ([id number]) OFFICE/OUTPATIENT VISIT EST Diagnosis: Allergic rhinitis due to pollen[ICD10: J30.1] Diagnosis: Epilepsy, unspecified, intractable, without status epilepticus[ICD10: G40.919] Keily ARANGO [facility] CPT-4: 49424 12/02/2017 ([id number]) OFFICE/OUTPATIENT VISIT EST Diagnosis: Other allergic rhinitis[ICD10: J30.89] Fatou ARANGO [facility] CPT-4: 19021 10/12/2017 OFFICE/OUTPATIENT VISIT EST Diagnosis: Acute suppurative otitis media without spontaneous rupture of ear drum, recurrent, left ear[ICD10: H66.005] Diagnosis: Epilepsy, unspecified, intractable, without status epilepticus[ICD10: G40.919] Diagnosis: Hesitancy of micturition[ICD10: R39.11] Fatou Bobby [facility] CPT-4: 15825 09/17/2017 OFFICE/OUTPATIENT VISIT EST Diagnosis: Otitis media, unspecified, left ear[ICD10: H66.92] Fatou Bobby [facility] CPT-4: 97605 08/06/2017 ([id number]) OFFICE/OUTPATIENT VISIT EST Diagnosis: Vertigo of central origin, 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.49] Diagnosis: Dizziness and giddiness[ICD10: R42] Keily NARANJO [facility] CPT-4: 24708 04/01/2017 OFFICE/OUTPATIENT VISIT EST Diagnosis: Vomiting, unspecified[ICD10: R11.10] Diagnosis: 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)[ICD10: K56.5] Diagnosis: Personal history of urinary calculi[ICD10: Z87.442] [facility] 32166 03/01/2017 ([id number]) OFFICE/OUTPATIENT VISIT EST Diagnosis: Allergic rhinitis due to pollen[ICD10: J30.1] Diagnosis: Acute and subacute allergic otitis media (mucoid) (sanguinous) (serous), left ear[ICD10: H65.112] [facility]: 81288 11/10/2016 ([id number]) OFFICE/OUTPATIENT VISIT EST Diagnosis: 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] Diagnosis: Unspecified ovarian cyst, right side[ICD10: N83.201] Diagnosis: Cyst of kidney, 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] Keily CERON Alicia [facility] CPT-4: 84061 08/13/2016 ([id number]) OFFICE/OUTPATIENT VISIT EST Diagnosis: Rash and other nonspecific skin eruption[ICD10: R21] Aziza LINARES [facility] CPT-4: 08843 03/27/2016 ([id number]) OFFICE/OUTPATIENT VISIT EST Diagnosis: Urinary tract infection, site not specified[ICD10: N39.0] Keily ARANGO [facility] CPT-4: 66489 03/23/2016 ([id number]) OFFICE/OUTPATIENT VISIT EST Diagnosis: Retention of urine, unspecified[ICD10: R33.9] Diagnosis: Dysuria[ICD10: R30.0] Diagnosis: Constipation, unspecified[ICD10: K59.00] Aziza Magallanes SIOMARA ELIZABETHOSMANY ARANGO [facility] CPT-4: 18989 03/19/2016 ([id number]) OFFICE/OUTPATIENT VISIT EST Diagnosis: Acute sinusitis, unspecified[ICD10: J01.90] Keily ARANGO [facility] CPT-4: 89887 03/02/2016 OFFICE/OUTPATIENT VISIT EST Diagnosis: Other fatigue[ICD10: R53.83] Diagnosis: Retention of urine, unspecified[ICD10: R33.9] Diagnosis: Dysuria[ICD10: R30.0] Diagnosis: Generalized abdominal pain[ICD10: R10.84] 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] Aziza ARANGO [facility] CPT-4: 04913 02/24/2016 ([id number]) OFFICE/OUTPATIENT VISIT EST Diagnosis: Chronic mucoid otitis media, right ear[ICD10: H65.31] Diagnosis: Allergic rhinitis, unspecified[ICD10: J30.9] Diagnosis: 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] Keily ARANGO [facility] CPT-4: 41468 12/16/2015 ([id number]) OFFICE/OUTPATIENT VISIT EST Diagnosis: Allergic rhinitis, unspecified[ICD10: J30.9] Diagnosis: Acute recurrent sinusitis, unspecified[ICD10: J01.91] Keily ARANGO [facility] CPT-4: 82019 11/12/2015 ([id number]) OFFICE/OUTPATIENT VISIT EST Diagnosis: Other seasonal allergic rhinitis[ICD10: J30.2] Diagnosis: Nausea with vomiting, unspecified[ICD10: R11.2] Diagnosis: Epigastric pain[ICD10: R10.13] Aziza ARANGO [facility] CPT-4: 87501 10/16/2015 OFFICE/OUTPATIENT VISIT EST Diagnosis: Encounter for follow-up examination after completed treatment for conditions other than malignant neoplasm[ICD10: Z09] Diagnosis: Generalized abdominal pain[ICD10: R10.84] Keily ARANGO [facility] CPT-4: 80320 09/23/2015 ([id number]) OFFICE/OUTPATIENT VISIT EST Diagnosis: Otitis media, unspecified, right ear[ICD10: H66.91] Diagnosis: Constipation, unspecified[ICD10: K59.00] Diagnosis: Allergic rhinitis, unspecified[ICD10: J30.9] Aziza ARANGO [facility] CPT-4: 01524 09/20/2015 OFFICE/OUTPATIENT VISIT EST Diagnosis: Allergic rhinitis, unspecified[ICD10: J30.9] Diagnosis: Unspecified perforation of tympanic membrane, right ear[ICD10: H72.91] Bibiana ARANGO [facility] CPT-4: 04028 09/10/2015 OFFICE/OUTPATIENT VISIT NEW Diagnosis: Epilepsy, unspecified, intractable, without status epilepticus[ICD10: G40.919] Diagnosis: Gastric ulcer, unspecified as acute or chronic, without hemorrhage or perforation[ICD10: K25.9] Diagnosis: Severe intellectual disabilities[ICD10: F72] Keily ARANGO [facility] CPT-4: 57861 08/21/2015 Plan of Care Planned Activity Notes Codes Status Date Visit Diagnosis Plan: Sinusitis Discussion: due to dean h of illness and symptoms, cefdinir prescribed to take as directed. call office with any new or worsening symptoms. ICD-9 : 473.9 ICD-10 : J32.9 07/25/2019 Patient Education: cefdinir- [employer] Eder [id number] https://[email or web address]/Unruly/resources/getResource/61/nb0g7asj-[email or web address] Completed 07/25/2019 Visit Diagnosis Plan: Chronic pancreatitis Discussion: Continue zenpep and recheck CMP with amylase/lipase in 1 month ICD-9 : 577.1 ICD-10 : K86.1 06/12/2019 Appointment: Keily Arango WPtel: [address] [place] [address] Annual Well Visit 06/12/2019 Visit Diagnosis Plan: [...] J18.9 05/08/2019 Appointment: Keily Arango WPtel: [phone] [facility] [address] Hospital Follow Up 05/08/2019 Visit Diagnosis [...] ICD-10 : J30.1 05/03/2019 Appointment: Fatou Onofre [address] [place] [address] ACUTE ILLNESS 05/03/2019 Patient Education: amoxicillin- [employer] Coupon [id number] https://www.Unruly.com/samplemd/resources/getResource/61/[email or web address] Completed 05/03/2019 Visit Diagnosis Plan: Irritability and [...] : R45.4 11/25/2018 Appointment: Nataliia Hsieh [address] ACUTE ILLNESS 11/25/2018 Visit Diagnosis Plan: Acute suppurative otitis media without spontaneous rupture of ear drum, bilateral Discussion: cefdinir for 10 days. if wor sening symptoms later this week, call clinic. push fluids and tylenol/ibuprofen prn pain or fever. ICD-9 : 382.00 ICD-10 : H66.003 06/13/2018 Appointment: Fatou Onofre [address] [place] [address] ACUTE ILLNESS 06/13/2018 Visit Diagnosis Plan: Anuria [...] ICD-10 : R53.83 01/04/2018 Appointment: Fatou Onofre [address] [place] [address] ACUTE ILLNESS 01/04/2018 Patient Education: Patient Medication Summary Completed 01/04/2018 Visit Diagnosis Plan: Acute bronchitis, unspecified Di scussion: zithromax prescribed to take as directed. continue with allergy meds including flonase to help dry congestion. call office next week if new or worsening symptoms. ICD-9 : 466.0 ICD-10 : J20.9 12/31/2017 Appointment: Fatou Onofre [address] [place], [place] [address] ACUTE ILLNESS 12/31/2017 Patient Education: Patient Medication Summary Completed 12/31/2017 Visit Diagnosis Plan: Epilepsy, unspecif ied, intractable, without status epilepticus Discussion: Stable on current regimen ICD-9 : 345.91 ICD-10 : G40.919 12/14/2017 Visit Diagnosis Plan: Encounter for [facility] adult medical examination without abnormal findings Discussion: Had recent lab done Follow Up: 3 months ICD-9 : V70.9 ICD-10 : Z00.00 12/14/2017 Visit Diagnosis Plan: Allergic rhinitis due to pollen Discussion: Continue current meds Change night time protonix to pepcid for total histamine blockade ICD-9 : 477.9 ICD-10 : J30.1 12/14/2017 Appointment: Keily Arango WPtel: [address] [place] [address] CHECK UP 12/14/2017 Patient Education: Patient Medication [...] : J30.1 12/02/2017 Appointment: Keily Arango WPtel: [address] [place] [address] ACUTE ILLNESS 12/02/2017 Patient Education: Patient Medication Summary Completed 12/02/2017 Visit Diagnosis Plan: Other allergic rhinitis Discussi on: symptoms most likely caused from allergies. patient sent to hospital for decadron injection. instructed to restart patient's flonase at home. if new or worsening symptoms, call or rtc. ICD-9 : 477.8 ICD-10 : J30.89 10/12/2017 Appointment: Fatou Onofre [address] [place] [address] ACUTE ILLNESS 10/12/2017 Patient Education: Patient Medication [...] ICD-10 : G40.919 09/17/2017 Appointment: Fatou Onofre [address] [place] [address] ACUTE ILLNESS 09/17/2017 Patient Education: Patient Medication Summary Completed 09/17/2017 Visit Diagnosis Plan: Otitis media, unspecified, left ear Discussion: cefdinir prescribed daily for 10 days. instructed to administer tylenol/ibuprofen for pain or fever. if no improvement, or worsening symptoms, call or rtc. ICD-9 : 380.14 ICD-10 : H66.92 08/06/2017 Appointment: Fatou Onofre [address] [place] [address] ACUTE ILLNESS 08/06/2017 Patient Education: Patient Medication Summary Completed 08/06/2017 Patient Education: Patient Medication Summary Completed 08/02/2017 Patient Education: Patient Medication Summary Completed 04/21/2017 Care Plan: MRI BRAIN STEM W/O DYE LOINC : 14646-1 Pending 04/21/2017 Patient Education: Patient Medication Summary Completed 04/20/2017 Care Plan: MRI BRAIN STEM W/O DYE LOINC : 10097-5 Pending 04/20/2017 Visit Diagnosis Plan: Vertigo of central origin, unspe cified ear Discussion: Continue meclizine at 12.5mg po BID for 2 more weeks then go to 12.5mg daily for 2 weeks then 6.25mg daily for 2 weeks then stop Notify if any symptoms return with weaning process ICD-9 : 386.2 ICD-10 : H81.49 04/01/2017 Appointment: Keily Arango WPtel: [address] [place] [address] FOLLOW UP 04/01/2017 Patient Education: Patient Medication Summary Completed 04/01/2017 Patient Education: Patient Medication Summary Completed 03/09/2017 Care Plan: CT HEAD/BRAIN W/O DYE LOINC : 64818-1 Pending 03/09/2017 Visit Plan: It's difficult to [...] medications indicated. 03/01/2017 Appointment: Emely Hdz WPtel: [address] [place] [address] ACUTE ILLNESS 03/01/2017 Patient Education: Patient Medication Summary Completed 03/01/2017 Patient Education: Patient Medication Summary Completed 12/17/2016 Visit Diagnosis Plan: Allergic rhinitis due to pollen Discussion: Continue zyrtec/singulair ICD-9 : 477.9 ICD-10 : J30.1 11/10/2016 Visit Diagnosis Plan: Acute and subacute allergic otitis media (mucoid) (sanguinous) (serous), left ear Discussion: Zithromax ICD-9 : 381.05 ICD-10 : H65.112 11/10/2016 Appointment: Keily Arango WPtel: [address] [place] [address] ACUTE ILLNESS 11/10/2016 Patient Education: Patient Medication Summary Completed 11/10/2016 Patient Education: Patient Medication Summary Completed 09/07/2016 Care Plan: URINALYSIS AUTO W/[place] : 65783-0 Pending 09/07/2016 Visit Diagnosis Plan: Unspecified ovarian [...] N20.0 08/13/2016 Appointment: Keily Arango WPtel: [phone] [facility] [address] 08/12 confirmed-sp FOLLOW UP 08/13/2016 Patient Education: Patient Medication Summary Completed 08/13/2016 Patient Education: Patient Medication Summary Completed 05/19/2016 Care Plan: X-RAY EXAM OF FOOT left foot LOINC : 26 095-0 Pending 05/19/2016 Visit Plan: Discussed with Dr Arango CB C to be drawn Order sent to Will call with results 03/27/2016 [facility]ment[facility] [facility] 03/27/2016 Patient Education: Patient Medication Summary Completed 03/27/2016 Visit Plan: Go for dose of rocephin 1gm IM today and tomorrow then done Diflucan 150mg x1 today Discussed with mom via phone about urology fwup--she will talk with her and let us know 03/23/2016 Appointment: [phone] 03/23 confirmed ~sl FOLLOW UP 03/23/2016 Patient Education: Patient Medication Summary Completed 03/23/2016 Visit Plan: Per Dr Arango, straight cat h for UA and culture today Ok to have a standing order for further UA needs at for straight cath Rocephin IM today and daily through Wednesday Mom has arranged a family friend that is an [employer]INE [employer] to give Wednesday and Sundays injections - [...] let us know 03/19/2016 Appointment: Aziza Magallanes [address] [place] [address] ACUTE ILLNESS 03/19/2016 Patient Education: Patient Medication Summary Completed 03/19/2016 Visit Plan: 1 more week of cefdinir 03/02/2016 Appointment: Keily Arango WPtel: [address] [place] [address] 03/02 confirmed~sl WORK IN 03/02/2016 Patient Education: [...] seen if worsening 02/24/2016 Appointment: Aziza Magallanes [address] [place] [address] ACUTE ILLNESS 02/24/2016 Patient Education: Patient Medication Summary Completed 02/24/2016 Care Plan: CHEST X-RAY 2VW FRONTAL&LATL LOINC : 03917-4 Pending 02/24/2016 Care Plan: X-RAY EXAM OF ABDOMEN LOINC : 96658-0 Pending 02/24/2016 Visit Plan: Repeat zithromax x1 week Cip rodex to right ear x1 week Add Pepcid q HS x2-4 weeks for total histamine blockade and for extra stomach protection while on zithromax 12/16/2015 Appointment: Keily Arango WPtel: [address] [place], [place] [id number] [place] 6/9 lm~sl 6/10 lm ~sl FOLLOW UP 12/16/2015 Patient Education: Patient Medication Summary Completed 12/16/2015 Patient Education: [facility] - Saving AutoInj - Sertraline HCL - 18-64 - Dynamic Portal ID Completed 12/16/2015 Visit Plan: Saline nasal flushes prn. Ty lenol/Motrin prn headache. Notify if persists/symptoms worsens Dexamethasone given 11/12/2015 Appointment: Keily Arango [facility]el[phone] [facility] [place] 11/10 lm~sl 11/11 lm~sl 11/11 confirm-sp FOLLOW UP 11/12/2015 Patient Education: Patient [...] Belkys 10/16/2015 Appointment: [facility] [facility] [facility] 10/16/2015 Patient Education: Patient Medication Summary Completed 10/16/2015 Appointment: Aziza [facility]anes [address] [facility] [place] canceled, feeling better CANCELED 016 Visit Plan: No further abx needed [facility] and restart carafate Notify if abdominal pain worsens 09/23/2015 Appointment: Keily Arango [facility]Ptel: [phone] [facility] 09/19 confirmed-sp FOLLOW UP 09/23/2015 Patient Education: [...] for now. 09/20/2015 Appointment: Aziza Magallanes [address] [facility] ACUTE ILLNESS 09/20/2015 Patient Education: Patient Medication Summary Completed 09/20/2015 Visit Plan: Depo Medrol 40mg/ Kenalog 40 mg IM today Resume Ciprodex otic gtts. bid to Rt. ear 09/10/2015 Appointment: Bibiana Garg WPtel: [phone] [facility] 09/08 confirmed-sp ACUTE ILLNESS 09/10/2015 Patient Education: Patient Medication Summary Completed 09/10/2015 Visit Plan: Increase Protonix to 40mg po BID for 1month Continue carafate at q AC dosing for full month then wean off Jevity for 2 more days then advance diet if able Continue current meds 08/21/2015 Appointment: Keily Arango WPtel: [phone] [facility] [address] NEW PATIENT 08/21/2015 Patient Education: Patient Medication [...] arranged a family friend that is an 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
--- OUTSIDE RECORDS SUMMARY | 2019-11-10 19:39 | XMS REPORT | CCD ---
Author Author Belkys Arango D.O. Organization KEILY ARANGO DO [facility] Address [address] [place] [address] Phone Care Team Providers Care Diet Consultant Name Role Phone Keily Arango D.O., PP Unavailable CCM Unavailable Summary Purpose Interface Exchange Insurance Providers Payer name Policy type / Coverage type Covered constitution party ID Effective Begin Date Effective End Date [employer] [facility] Medicaid [id number] U nknown Family History Family History data not found Social History Social History Element Codes Description Effective Dates Marital status Unknown Single 08/21/2015 Employment Unknown Currently unemployed Physically handicapped 08/21/[address]: 658972389 Has never smoked or chewed tobacco 08/21/[address]: 861325584 Never drinks alcohol 2015 Allergies, Adverse Reactions, [...] Fill Instructions meclizine 12.5 mg tablet RxNorm: 958730 TAKE 1 TABLET B Y MOUTH THREE TIMES DAILY NEEDED 08/04/2019 09/02/2019 Active cefdinir 250 mg/5 mL oral suspension RxNorm: 460147 12 Milliliter(s) Oral QD though PEG tube 07/25/2019 08/03/2019 Inactive Zenpep 40,000 unit-126,000 unit-168,000 unit capsule,d elayed release RxNorm: 6239527 1 Capsule(s) Oral AC 07/10/2019 11/06/2019 Active famotidine 20 mg tablet RxNorm: 697676 TAKE 1 TABLET BY MOUTH EVERY NIGHT AT BEDTIME 07/09/2019 01/04/2020 Active sertraline 50 mg tablet RxNorm: 012107 TAKE 1 TABLET BY MOUTH EVERY NIGHT AT BEDTIME 07/09/2019 09/06/2019 Active Zenpep 40,000 unit-126,000 unit-168,000 unit capsule,d elayed release RxNorm: 6307908 1 Capsule(s) Oral AC 06/12/2019 07/09/2019 Inactive Zenpep 40,000 unit-126,000 unit-168,000 unit capsule,d elayed release RxNorm: 4283050 1 Capsule(s) Oral AC 05/24/2019 05/23/2019 Inactive Zenpep 40,000 unit-126,000 unit-168,000 unit capsule,d elayed release RxNorm: 3072375 1 Capsule(s) Oral AC 05/24/2019 06/11/2019 Inactive Ciprodex 0.3 %-0.1 % ear drops,suspension RxNorm: 102885 DROP(S) 4 DROP(S) OTIC BID 05/22/2019 06/18/2019 Inactive oxcarbazepine 300 mg/5 mL (60 mg/mL) oral suspension RxNorm: 485808 15 Milliliter(s) Oral two times a day 05/08/2019 11/03/2019 Active meclizine 12.5 mg tablet RxNorm: 492033 1 TABLET(S) PO TID NEEDE D 05/05/2019 08/02/2019 Inactive change in quantity Zithromax 200 mg/5 mL oral suspension RxNorm: 905850 12.5 Dilcia liter(s) Oral QD 05/04/2019 05/09/2019 Inactive amoxicillin 400 mg/5 mL oral suspension RxNorm: 994780 10 Milliliter(s) Oral two times a day 05/03/2019 05/13/2019 Inactive Singulair 10 mg tablet RxNorm: 976460 1 TABLET(S) PO QD 03/28/2019 Active Macrobid 100 mg capsule RxNorm: 966683 1 Capsule(s) PO BID 03/16/2003/22/2019 Inactive meclizine 12.5 mg tablet RxNorm: 933942 1 Tablet(s) PO TID as neede d 03/10/2019 05/04/2019 Inactive change in quantity Ciprodex 0.3 %-0.1 % ear drops,suspension RxNorm: 655144 DROP(S) 4 DROP(S) OTIC BID 03/08/2019 04/04/2019 Inactive oxcarbazepine 300 mg/5 mL (60 mg/mL) oral suspension RxNorm: 554041 15 Milliliter(s) PO BID 03/07/2019 05/07/2019 Inactive Macrobid 100 mg capsule RxNorm: 648232 1 Capsule(s) PO BID 02/21/2003/01/2019 Inactive Macrobid 100 mg capsule RxNorm: 919061 1 Capsule(s) PO BID 02/21/2002/19/2019 Inactive meclizine 12.5 mg tablet RxNorm: 757604 1 Tablet(s) PO TID as neede d 02/06/2019 03/07/2019 Inactive change in quantity Ciprodex 0.3 %-0.1 % ear drops,suspension RxNorm: 846576 DROP(S) 4 DROP(S) OTIC BID 01/30/2019 02/12/2019 Inactive diazepam 10 mg tablet RxNorm: 073479 1 Tablet(s) PO QHS as needed 0 01/27/2019 03/27/2019 Inactive sertraline 50 mg tablet RxNorm: 718473 1 Tablet(s) PO QHS 12/29/2018 06/26/2019 Inactive famotidine 20 mg tablet RxNorm: 567393 1 Tablet(s) PO QHS 12/29/2018 06/26/2019 Inactive Ciprodex 0.3 %-0.1 % ear drops,suspension RxNorm: 529078 DROP(S) 4 DROP(S) OTIC BID 12/14/2018 12/27/2018 Inactive Generlac 10 gram/15 mL oral solution RxNorm: 976597 15 Milliliter(s) PO TWO TO THREE TIMES DAILY 12/06/2018 06/03/2019 Inactive Protonix 40 mg tablet,delayed release RxNorm: 516885 1 Tablet(s) PO or per feeding tube BID 11/24/2018 05/22/2019 Inactive meclizine 12.5 mg tablet RxNorm: 860707 1 Tablet(s) PO TID as neede d 11/11/2018 02/06/2019 Inactive change in quantity Ciprodex 0.3 %-0.1 % ear drops,suspension RxNorm: 661345 DROP(S) 4 DROP(S) OTIC BID 11/08/2018 11/21/2018 Inactive diazepam 10 mg tablet RxNorm: 885047 1 Tablet(s) PO QHS as needed 0 10/21/2018 11/19/2018 Inactive Generlac 10 gram/15 mL oral solution RxNorm: 808315 Mil liliter(s) 15 MILLILITER(S) PO TWO TO THREE TIMES DAILY 10/07/2018 11/05/2018 Inacti ve Ciprodex 0.3 %-0.1 % ear drops,suspension RxNorm: 021471 DROP(S) DROP(S) 4 DROP(S) OTIC BID 08/26/2018 03/15/2019 Inactive meclizine 12.5 mg tablet RxNorm: 274904 1 TABLET(S) PO TID NEEDE D 07/25/2018 10/22/2018 Inactive change in quantity oxcarbazepine 300 mg/5 mL (60 mg/mL) oral suspension RxNorm: 788719 15 Milliliter(s) PO BID 07/08/2018 07/07/2018 Inactive oxcarbazepine 300 mg/5 mL (60 mg/mL) oral suspension RxNorm: 543994 15 Milliliter(s) PO BID 07/08/2018 01/03/2019 Inactive sertraline 50 mg tablet RxNorm: 998090 1 TABLET(S) PO QHS 07/06/2018 12/28/2018 Inactive Singulair 10 mg tablet RxNorm: 331696 1 TABLET(S) PO QD 06/24/2018 Inactive Ciprodex 0.3 %-0.1 % ear drops,suspension RxNorm: 570945 DROP(S) 4 DROP(S) OTIC BID 06/20/2018 06/19/2018 Inactive Ciprodex 0.3 %-0.1 % ear drops,suspension RxNorm: 696638 Drop(s) DROP(S) 4 DROP(S) OTIC BID 06/20/2018 07/03/2018 Inactive cefdinir 250 mg/5 mL oral suspension RxNorm: 616693 12 Milliliter(s) PO QD though PEG tube 06/13/2018 06/22/2018 Inactive famotidine 20 mg tablet RxNorm: 741245 1 Tablet(s) PO QHS 05/31/2018 11/26/2018 Inactive famotidine 40 mg/5 mL (8 mg/mL) oral suspension RxNorm: 3102 74 2.5 Milliliter(s) PO QHS 04/29/2018 06/12/2018 Inactive meclizine 12.5 mg tablet RxNorm: 086728 1 TABLET(S) PO TID NEEDE D 04/25/2018 07/23/2018 Inactive change in quantity Generlac 10 gram/15 mL oral solution RxNorm: 736682 Mil liliter(s) 15 MILLILITER(S) PO TWO TO THREE TIMES DAILY 04/04/2018 05/03/2018 Inacti ve Ciprodex 0.3 %-0.1 % ear drops,suspension RxNorm: 631985 Drop(s) 4 DROP(S) OTIC BID 04/04/2018 04/17/2018 Inactive diazepam 10 mg tablet RxNorm: 783529 1 Tablet(s) PO QHS as needed 1 05/03/2018 Inactive famotidine 40 mg/5 mL (8 mg/mL) oral suspension RxNorm: 3102 74 2.5 Milliliter(s) PO QHS 04/04/2018 04/28/2018 Inactive Generlac 10 gram/15 mL oral solution RxNorm: 352168 15 MILLILITER(S) PO TWO TO THREE TIMES DAILY 03/24/2018 04/03/2018 Inactive Singulair 10 mg tablet RxNorm: 863948 1 TABLET(S) PO QD 03/18/2018 Inactive Ciprodex 0.3 %-0.1 % ear drops,suspension RxNorm: 131245 Drop(s) 4 DROP(S) OTIC BID 03/08/2018 03/21/2018 Inactive Generlac 10 gram/15 mL oral solution RxNorm: 558875 15 Milliliter(s) PO two to three times daily 03/03/2018 03/23/2018 Inactive meclizine 12.5 mg tablet RxNorm: 117210 1 Tablet(s) PO TID as neede d 02/10/2018 04/10/2018 Inactive change in quantity meclizine 12.5 mg tablet RxNorm: 585299 1 Tablet(s) PO BID as neede d 02/07/2018 02/09/2018 Inactive change in quantity Ciprodex 0.3 %-0.1 % ear drops,suspension RxNorm: 758504 Drop(s) 4 DROP(S) OTIC BID 02/02/2018 03/08/2018 Inactive sertraline 50 mg tablet RxNorm: 761998 1 TABLET(S) PO QHS 01/25/2018 07/05/2018 Inactive Zithromax 200 mg/5 mL oral suspension RxNorm: 733677 12.5 Dilcia liter(s) PO QD 12/31/2017 01/04/2018 Inactive Pepcid 20 mg tablet RxNorm: 215823 TABLET(S) 1 TABLET(S) PO QHS 04/29/2018 Inactive famotidine 40 mg/5 mL (8 mg/mL) oral suspension RxNorm: 3102 74 2.5 Milliliter(s) PO QHS 12/28/2017 12/27/2017 Inactive famotidine 40 mg/5 mL (8 mg/mL) oral suspension RxNorm: 3102 74 2.5 Milliliter(s) PO QHS 12/28/2017 04/03/2018 Inactive Ciprodex 0.3 %-0.1 % ear drops,suspension RxNorm: 769546 Drop(s) 4 DROP(S) OTIC BID 12/27/2017 02/02/2018 Inactive meclizine 12.5 mg tablet RxNorm: 144952 1 Tablet(s) PO BID as neede d 12/23/2017 02/06/2018 Inactive change in quantity Protonix 40 mg tablet,delayed release RxNorm: 069521 1 Tablet(s) PO or per feeding tube BID 12/16/2017 07/13/2018 Inactive oxcarbazepine 300 mg/5 mL (60 mg/mL) oral suspension RxNorm: 378485 15 Milliliter(s) PO BID 12/16/2017 07/08/2018 Inactive meclizine 12.5 mg tablet RxNorm: 370828 1 Tablet(s) PO BID as neede d 12/15/2017 02/07/2018 Inactive change in quantity Pepcid 40 mg/5 mL (8 mg/mL) oral suspension RxNorm: 156417 5 Milliliter(s) PO QHS to replace nighttime pantoprazole dose 12/14/2017 12/27/2017 Inact марина meclizine 12.5 mg tablet RxNorm: 435926 1 Tablet(s) PO BID as neede d 12/13/2017 12/23/2017 Inactive diazepam 10 mg tablet RxNorm: 606480 1 Tablet(s) PO QHS as needed 0 12/02/2017 03/01/2018 Inactive prednisolone 15 mg/5 mL oral solution RxNorm: 943202 5 Milliliter(s) PO BID for 3 days then 5ml daily for 3 days then 2.5ml daily for 3 days 12/02/2017 12/13/2017 Inactive sertraline 50 mg tablet RxNorm: 515351 1 Tablet(s) PO QHS 11/04/2017 01/24/2018 Inactive Ciprodex 0.3 %-0.1 % ear drops,suspension RxNorm: 047361 Drop(s) 4 DROP(S) OTIC BID 10/18/2017 10/31/2017 Inactive Ciprodex 0.3 %-0.1 % ear drops,suspension RxNorm: 714200 Drop(s) 4 DROP(S) OTIC BID 10/18/2017 12/27/2017 Inactive Singulair 10 mg tablet RxNorm: 455670 1 Tablet(s) PO QD 09/30/2017 Inactive diazepam 5 mg/5 mL (1 mg/mL) oral solution RxNorm: 295531 2.5 Milliliter(s) PO QD give additional 5 mg dose if seizure occurs 09/17/2017 No Stop Date A ctive Bactrim DS 800 mg-160 mg tablet RxNorm: 148987 1 Tablet(s) PO BID 0 09/17/2017 09/23/2017 Inactive Ciprodex 0.3 %-0.1 % ear drops,suspension RxNorm: 268822 4 DROP (S) OTIC BID 09/13/2017 10/18/2017 Inactive cefdinir 250 mg/5 mL oral suspension RxNorm: 926011 12 Milliliter(s) PO QD though PEG tube 08/06/2017 08/15/2017 Inactive sertraline 50 mg tablet RxNorm: 015681 1 Tablet(s) PO QHS 08/02/2017 11/04/2017 Inactive Ciprodex 0.3 %-0.1 % ear drops,suspension RxNorm: 282523 4 DROP (S) OTIC BID 07/22/2017 08/11/2017 Inactive Singulair 10 mg tablet RxNorm: 807597 1 Tablet(s) PO QD 06/30/2017 Inactive diazepam 10 mg tablet RxNorm: 772259 TAKE 1 TABLET BY M OUTH EVERY NIGHT AT BEDTIME NEEDED 06/04/2017 07/03/2017 Inactive oxcarbazepine 300 mg/5 mL (60 mg/mL) oral suspension RxNorm: 078810 15 MILLILITER(S) PO BID 05/03/2017 12/16/2017 Inactive sertraline 50 mg tablet RxNorm: 537985 1 Tablet(s) PO QHS 05/03/2017 08/02/2017 Inactive Protonix 40 mg tablet,delayed release RxNorm: 332284 1 Tablet(s) PO or per feeding tube BID 04/26/2017 12/16/2017 Inactive Ciprodex 0.3 %-0.1 % ear drops,suspension RxNorm: 299901 4 DROP (S) OTIC BID 04/26/2017 05/23/2017 Inactive Generlac 10 gram/15 mL oral solution RxNorm: 527612 Mil liliter(s) TAKE 15 ML BY MOUTH TWO-THREE TIMES DAILY 04/08/2017 03/03/2018 Inactive Singulair 10 mg tablet RxNorm: 837285 1 Tablet(s) PO QD 03/03/2017 Inactive diazepam 10 mg tablet RxNorm: 939659 1 Tablet(s) PO QHS as needed 0 02/15/2017 06/04/2017 Inactive Singulair 10 mg tablet RxNorm: 598546 1 Tablet(s) PO QD 12/01/2016 Inactive Diflucan 150 mg tablet RxNorm: 569727 Tablet(s) Give 1 tab PO now and then repeat dose in 5 days 11/10/2016 03/31/2017 Inactive Zithromax 200 mg/5 mL oral suspension RxNorm: 000799 12.5 Dilcia liter(s) PO QD 11/10/2016 11/14/2016 Inactive Singulair 10 mg tablet RxNorm: 944369 TAKE 1 TABLET BY MOUTH ON CE DAILY 11/02/2016 12/01/2016 Inactive diazepam 10 mg tablet RxNorm: 973780 TAKE 1 TABLET BY M OUTH EVERY NIGHT AT BEDTIME NEEDED 10/21/2016 11/19/2016 Inactive sertraline 50 mg tablet RxNorm: 047005 1 Tablet(s) PO QHS 10/12/2016 01/09/2017 Inactive fluconazole 100 mg tablet RxNorm: 277958 1 Tablet(s) PO QD 09/23/19 17 09/24/2016 Inactive fluconazole 100 mg tablet RxNorm: 814567 1 Tablet(s) PO QD 09/23/19 17 09/21/2016 Inactive Bactrim DS 800 mg-160 mg tablet RxNorm: 860190 1 Tablet(s) PO BID 0 09/10/2016 09/09/2016 Inactive Bactrim DS 800 mg-160 mg tablet RxNorm: 238955 1 Tablet(s) PO BID 0 09/10/2016 09/16/2016 Inactive oxcarbazepine 300 mg/5 mL (60 mg/mL) oral suspension RxNorm: 186591 15 Milliliter(s) PO BID 09/07/2016 03/05/2017 Inactive sertraline 50 mg tablet RxNorm: 719105 1 Tablet(s) PO QHS 07/06/2016 10/03/2016 Inactive Pepcid 20 mg tablet RxNorm: 815955 Tablet(s) 1 TABLET(S) PO QHS 08/201603/08/2017 Inactive sertraline 50 mg tablet RxNorm: 330066 1 Tablet(s) PO QHS 06/08/2016 05/03/2017 Inactive Generlac 10 gram/15 mL oral solution RxNorm: 179916 Mil liliter(s) TAKE 15 ML BY MOUTH TWO-THREE TIMES DAILY 06/08/2016 09/08/2016 Inactive Pepcid 20 mg tablet RxNorm: 042955 1 TABLET(S) PO QHS 06/04/201607/2016 Inactive fluconazole 100 mg tablet RxNorm: 678709 1 Tablet(s) QD through PEG tube 05/13/2016 12/01/2017 Inactive Diflucan 150 mg tablet RxNorm: 248260 Give 1 tab PO now and then repeat dose in 5 days 03/19/2016 11/09/2016 Inactive ceftriaxone 1 gram solution for injection RxNorm: 9275337 1 Gram(s) IM QD Wednesday and Wednesday03/19/2016 11/09/2016 Inactive lidocaine 10 mg/mL (1 %) injection solution RxNorm: 9168123 Use as directed to reconstitute Rocephin when needed 03/19/2016 12/13/2017 Inactive Generlac 10 gram/15 mL oral solution RxNorm: 365751 JOE E 15 ML BY MOUTH TWO- THREE TIMES DAILY 03/19/2016 06/07/2016 Inactive oxcarbazepine 300 mg/5 mL oral suspension RxNorm: 058112 15 Milliliter(s) PO BID 03/13/2016 09/07/2016 Inactive Ciprodex 0.3 %-0.1 % ear drops,suspension RxNorm: 056562 4 DROP (S) OTIC BID 03/09/2016 03/15/2016 Inactive cefdinir 250 mg/5 mL oral suspension RxNorm: 231909 11. 75 Milliliter(s) PO QD though PEG tube 03/02/2016 03/08/2016 Inactive cefdinir 250 mg/5 mL oral suspension RxNorm: 282740 11. 75 Milliliter(s) PO QD though PEG tube 02/24/2016 03/01/2016 Inactive cefdinir 250 mg/5 mL oral suspension RxNorm: 971611 11. 75 Milliliter(s) PO QD though PEG tube 02/24/2016 02/23/2016 Inactive Ciprodex 0.3 %-0.1 % ear drops,suspension RxNorm: 586409 4 Drop (s) OTIC BID 02/24/2016 03/01/2016 Inactive Generlac 10 gram/15 mL oral solution RxNorm: 064832 JOE E 15 ML BY MOUTH TWICE DAILY 02/17/2016 03/18/2016 Inactive Generlac 10 gram/15 mL oral solution RxNorm: 050195 15 Millilit er(s) PO BID 01/23/2016 02/16/2016 Inactive Pepcid 20 mg tablet RxNorm: 122387 1 TABLET(S) PO QHS 01/13/201605/07 Inactive Ciprodex 0.3 %-0.1 % ear drops,suspension RxNorm: 033121 4 Drop (s) OTIC BID 12/23/2015 12/29/2015 Inactive sertraline 50 mg tablet RxNorm: 713043 1 Tablet(s) PO QHS 12/16/2015 06/07/2016 Inactive Zithromax 500 mg tablet RxNorm: 119371 1 Tablet(s) PO QD 12/16/2015 0 12/22/2015 Inactive Pepcid 20 mg tablet RxNorm: 043179 1 Tablet(s) PO QHS 12/16/201501/02 Inactive Zithromax 500 mg tablet RxNorm: 239931 1 Tablet(s) PO QD 11/12/2015 0 11/18/2015 Inactive Singulair 10 mg tablet RxNorm: 715038 1 Tablet(s) PO BID 10/16/2015 0 11/11/2015 Inactive diazepam 10 mg tablet RxNorm: 309406 1 Tablet(s) PO QHS 10/07/2015 Inactive diazepam 10 mg tablet RxNorm: 829324 1 Tablet(s) PO QHS 10/07/2015 Inactive fexofenadine 30 mg/5 mL oral suspension RxNorm: 793296 10 Milliliter(s) PO one to two times daily PRN allergies 09/20/2015 12/15/2015 Inactive ceftriaxone 1 gram solution for injection RxNorm: 8781679 1 Gram (s) IM QD 09/20/2015 09/21/2015 Inactive Ciprodex 0.3 %-0.1 % ear drops,suspension RxNorm: 168968 4 Drop (s) OTIC BID 09/20/2015 10/03/2015 Inactive Protonix 40 mg tablet,delayed release RxNorm: 587918 1 Tablet(s) PO or per feeding tube BID 08/21/2015 12/18/2015 Inactive Carafate 100 mg/mL oral suspension RxNorm: 212258 10 Mi lliliter(s) Miscellaneous per feeding tube AC & HS 08/21/2015 09/19/2015 Inactive Zyrtec 10 mg tablet RxNorm: 5314029 1 Tablet(s) PO QD No Start Date Active diazepam 20 mg rectal kit RxNorm: 977997 RTL as needed No Start Date Active Lortab Elixir 10 mg-300 mg/15 mL oral solution RxNorm: 70587 45 8 PO Q6-8H as needed No Start Date Active ondansetron HCl 4 mg/5 mL oral solution RxNorm: 586323 10 Milliliter(s) PO as needed and through tube No Start Date Active sertraline 50 mg tablet RxNorm: 748778 1 Tablet(s) PO QD No Start D ate 12/15/2015 Inactive Brittany 180 mg tablet RxNorm: 604046 1 Tablet(s) PO QD No Start Date 06/12/2018 Inactive Generlac 10 gram/15 mL oral solution RxNorm: 380339 15 Millilit er(s) PO BID No Start Date 01/22/2016 Inactive oxcarbazepine 300 mg/5 mL oral suspension RxNorm: 048763 13.5 Milliliter(s) PO QAM and 15ml in the evening No Start Date 12/15/2015 Inactive Singulair 10 mg tablet RxNorm: 953018 1 Tablet(s) PO QD No Start Da te 11/30/2016 Inactive meclizine 12.5 mg tablet RxNorm: 851231 1 Tablet(s) PO TID as needed for dizziness No Start Date 09/13/2017 Inactive meclizine 12.5 mg tablet RxNorm: 092385 1 Tablet(s) PO BID No Start Date 12/12/2017 Inactive fluconazole 100 mg tablet RxNorm: 555276 1 Tablet(s) QD through PEG tube No Start Date 05/12/2016 Inactive Flomax 0.4 mg capsule RxNorm: 962109 1 Capsule(s) PO QD No Start Da te 06/12/2018 Inactive diazepam 10 mg tablet RxNorm: 476778 1 Tablet(s) PO QHS as needed N o Start Date 02/14/2017 Inactive Generlac 10 gram/15 mL oral solution RxNorm: 206975 15 Milliliter(s) PO two to three times daily No Start Date 03/02/2018 Inactive oxcarbazepine 300 mg/5 mL oral suspension RxNorm: 278123 15 Milliliter(s) PO BID No Start Date 12/15/2017 Inactive Medication Administered No Medication Administered data Immunizations Vaccine Codes Date Status Influenza CVX: 141 04/21/2019 Results No Results data Procedures Procedure Codes Date DEXAMETHASONE SODIUM PHOS CPT-4: J1100 05/03/2019 THER/PROPH/DIAG INJ SC/IM CPT-4: 76441 05/03/2019 CEFTRIAXONE SODIUM INJECTION CPT-4: J0696 03/19/2016 THER/PROPH/DIAG INJ SC/IM CPT-4: 76282 03/19/2016 DEXAMETHASONE SODIUM PHOS CPT-4: J1100 11/12/2015 THER/PROPH/DIAG INJ SC/IM CPT-4: 98764 11/12/2015 CEFTRIAXONE SODIUM INJECTION CPT-4: J0696 09/20/2015 THER/PROPH/DIAG INJ SC/IM CPT-4: 93572 09/20/2015 THER/PROPH/DIAG INJ SC/IM CPT-4: 95341 09/10/2015 METHYLPREDNISOLONE 40 MG INJ CPT-4: J1030 09/10/2015 TRIAMCINOLONE ACET INJ NOS CPT-4: J3301 09/10/2015 Vital Signs Date Vital 07/25/2019 Blood Pressure 1: 116/80 Code: 8480-6 BMI: 23.2 Code: 06127-5 Heart Rate 1: 81 bpm Height: 4'5" Respiratory Rate: 16 bpm SpO2: 100% Tempera ture: 36.8 (C) / 98.2 (F) Weight: 92 lbs 06/12/2019 Blood Pressure 1: 112/74 Code: 8480-6 BMI: 23.2 Code: 84382-3 Heart Rate 1: 102 bpm Height: 4'5" [...] 1: 114/70 Code: 8480-6 BMI: 23.1 Code: 61342-3 Heart Rate 1: 80 bpm Height: 4'6" [...] visit Encounters Encounter Performer Location Codes Date ([id number]) OFFICE/OUTPATIENT VISIT EST Diagnosis: Sinusitis[ICD10: J32.9] Fatou LINARES [employer] [employer] CPT-4: 62751 07/25/2019 ([id number]) PREV VISIT EST AGE 18-39 Diagnosis: Encounter for general adult medical examination with abnormal findings[ICD10: Z00.01] Diagnosis: Chronic pancreatitis[ICD10: K86.1] Diagnosis: Cerebral palsy, unspecified[ICD10: G80.9] Keily LINARES [employer] [employer] CPT-4: 40605 06/12/2019 ([id number]) OFFICE/OUTPATIENT VISIT EST Diagnosis: Pneumonia, organism unspecified[ICD10: J18.9] Diagnosis: Breast mass, right[ICD10: N63.10] Keily Vallejo [employer] [employer] CPT-4: 70723 05/08/2019 ([id number]) OFFICE/OUTPATIENT VISIT EST Diagnosis: Allergic rhinitis due to pollen[ICD10: J30.1] Diagnosis: Otitis media, unspecified, right ear[ICD10: H66.91] Fatou LINARES [employer] CPT-4: 82764 05/03/2019 ([id number]) OFFICE/OUTPATIENT VISIT EST Diagnosis: Irritability and anger[ICD10: R45.4] Nataliia ARANGO [employer] [facility] CPT-4: 53084 11/25/2018 ([id number]) OFFICE/OUTPATIENT VISIT EST Diagnosis: Acute suppurative otitis media without spontaneous rupture of ear drum, bilateral[ICD10: H66.003] Fatou ARANGO [employer] [facility] CPT-4: 99070 06/13/2018 ([id number]) OFFICE/OUTPATIENT VISIT EST Diagnosis: Other fatigue[ICD10: R53.83] Diagnosis: Anuria and oliguria[ICD10: R34] Diagnosis: Acute gastritis without bleeding[ICD10: K29.00] Fatou ARANGO [employer] [facility] CPT-4: 73608 01/04/2018 ([id number]) OFFICE/OUTPATIENT VISIT EST Diagnosis: Acute bronchitis, unspecified[ICD10: J20.9] Fatou ARANGO [employer] [facility] CPT-4: 12658 12/31/2017 ([id number]) PREV VISIT EST AGE 18-39 Diagnosis: Encounter for general adult medical examination without abnormal findings[ICD10: Z00.00] Diagnosis: Severe intellectual disabilities[ICD10: F72] Diagnosis: Allergic rhinitis due to pollen[ICD10: J30.1] Diagnosis: Epilepsy, unspecified, intractable, without status epilepticus[ICD10: G40.919] Diagnosis: Gastro-esophageal reflux disease without esophagitis[ICD10: K21.9] Keily CASTILLO [employer] [facility] CPT-4: 77810 12/14/2017 ([id number]) OFFICE/OUTPATIENT VISIT EST Diagnosis: Allergic rhinitis due to pollen[ICD10: J30.1] Diagnosis: Epilepsy, unspecified, intractable, without status epilepticus[ICD10: G40.919] Keily CASTILLO [employer] [facility] CPT-4: 07706 12/02/2017 ([id number]) OFFICE/OUTPATIENT VISIT EST Diagnosis: Other allergic rhinitis[ICD10: J30.89] Fatou ARANGO [employer] [facility] CPT-4: 79241 10/12/2017 OFFICE/OUTPATIENT VISIT EST Diagnosis: Acute suppurative otitis media without spontaneous rupture of ear drum, recurrent, left ear[ICD10: H66.005] Diagnosis: Epilepsy, unspecified, intractable, without status epilepticus[ICD10: G40.919] Diagnosis: Hesitancy of micturition[ICD10: R39.11] Fatou Bobby [facility] CPT-4: 41989 09/17/2017 OFFICE/OUTPATIENT VISIT EST Diagnosis: Otitis media, unspecified, left ear[ICD10: H66.92] Fatou Bobby [facility] CPT-4: 05994 08/06/2017 ([id number]) OFFICE/OUTPATIENT VISIT EST Diagnosis: Vertigo of central origin, 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.49] Diagnosis: Dizziness and giddiness[ICD10: R42] Keily Pepenicole [facility]ARAN[facility] CPT-4: 54568 04/01/2017 OFFICE/OUTPATIENT VISIT EST Diagnosis: Vomiting, unspecified[ICD10: R11.10] Diagnosis: 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)[ICD10: K56.5] Diagnosis: Personal history of urinary calculi[ICD10: Z87.442] Emely Hdz [facility] CPT-4: 69402 03/01/2017 ([id number]) OFFICE/OUTPATIENT VISIT EST Diagnosis: Allergic rhinitis due to pollen[ICD10: J30.1] Diagnosis: Acute and subacute allergic otitis media (mucoid) (sanguinous) (serous), left ear[ICD10: H65.112] [facility] 81376 11/10/2016 ([id number]) OFFICE/OUTPATIENT VISIT EST Diagnosis: 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] Diagnosis: Unspecified ovarian cyst, right side[ICD10: N83.201] Diagnosis: Cyst of kidney, 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] Keily CERON [facility] CPT-4: 12258 08/13/2016 ([id number]) OFFICE/OUTPATIENT VISIT EST Diagnosis: Rash and other nonspecific skin eruption[ICD10: R21] Aziza ARANGO DO [facility] CPT-4: 62930 03/27/2016 ([id number]) OFFICE/OUTPATIENT VISIT EST Diagnosis: Urinary tract infection, site not specified[ICD10: N39.0] Keily ARANGO DO [facility] CPT-4: 23020 03/23/2016 ([id number]) OFFICE/OUTPATIENT VISIT EST Diagnosis: Retention of urine, unspecified[ICD10: R33.9] Diagnosis: Dysuria[ICD10: R30.0] Diagnosis: Constipation, unspecified[ICD10: K59.00] Aziza Magallanes SIOMARA LAWTON Diamante ARANGO DO [facility] CPT-4: 84471 03/19/2016 ([id number]) OFFICE/OUTPATIENT VISIT EST Diagnosis: Acute sinusitis, unspecified[ICD10: J01.90] Keily ARANGO DO [facility] CPT-4: 45714 03/02/2016 OFFICE/OUTPATIENT VISIT EST Diagnosis: Other fatigue[ICD10: R53.83] Diagnosis: Retention of urine, unspecified[ICD10: R33.9] Diagnosis: Dysuria[ICD10: R30.0] Diagnosis: Generalized abdominal pain[ICD10: R10.84] 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] Aziza ARANGO DO [facility] CPT-4: 52242 02/24/2016 ([id number]) OFFICE/OUTPATIENT VISIT EST Diagnosis: Chronic mucoid otitis media, right ear[ICD10: H65.31] Diagnosis: Allergic rhinitis, unspecified[ICD10: J30.9] Diagnosis: 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] Keily ARANGO DO [facility] CPT-4: 85859 12/16/2015 ([id number]) OFFICE/OUTPATIENT VISIT EST Diagnosis: Allergic rhinitis, unspecified[ICD10: J30.9] Diagnosis: Acute recurrent sinusitis, unspecified[ICD10: J01.91] Keily ARANGO DO [facility] CPT-4: 81333 11/12/2015 ([id number]) OFFICE/OUTPATIENT VISIT EST Diagnosis: Other seasonal allergic rhinitis[ICD10: J30.2] Diagnosis: Nausea with vomiting, unspecified[ICD10: R11.2] Diagnosis: Epigastric pain[ICD10: R10.13] Aziza ARANGO [employer] [facility] CPT-4: 81667 10/16/2015 OFFICE/OUTPATIENT VISIT EST Diagnosis: Encounter for follow-up examination after completed treatment for conditions other than malignant neoplasm[ICD10: Z09] Diagnosis: Generalized abdominal pain[ICD10: R10.84] Keily ARANGO [facility] CPT-4: 12575 09/23/2015 ([id number]) OFFICE/OUTPATIENT VISIT EST Diagnosis: Otitis media, unspecified, right ear[ICD10: H66.91] Diagnosis: Constipation, unspecified[ICD10: K59.00] Diagnosis: Allergic rhinitis, unspecified[ICD10: J30.9] Aziza CASTILLO [employer] [facility] CPT-4: 58038 09/20/2015 OFFICE/OUTPATIENT VISIT EST Diagnosis: Allergic rhinitis, unspecified[ICD10: J30.9] Diagnosis: Unspecified perforation of tympanic membrane, right ear[ICD10: H72.91] Bibiana Britany KEILY CASTILLO [employer] [facility] CPT-4: 68095 09/10/2015 OFFICE/OUTPATIENT VISIT NEW Diagnosis: Epilepsy, unspecified, intractable, without status epilepticus[ICD10: G40.919] Diagnosis: Gastric ulcer, unspecified as acute or chronic, without hemorrhage or perforation[ICD10: K25.9] Diagnosis: Severe intellectual disabilities[ICD10: F72] Keily Castillo KEILY CASTILLO [employer] [facility] CPT-4: 64031 08/21/2015 Plan of Care Planned Activity Notes Codes Status Date Visit Diagnosis Plan: Sinusitis Discussion: due to dean h of illness and symptoms, cefdinir prescribed to take as directed. call office with any new or worsening symptoms. ICD-9 : 473.9 ICD-10 : J32.9 07/25/2019 Appointment: Fatou Onofre [address] [place], [place] [address] ACUTE [facility]NESS 07/25/2019 Patient Education: cefdinir- [employer] Coupon [id number] [email or web address]/resources/getResource/[email or web address]/[email or web address] Completed 07/25/2019 Visit Diagnosis Plan: Chronic pancreatitis Discussion: Continue zenpep and recheck CMP with amylase/lipase in 1 month ICD-9 : 577.1 ICD-10 : K86.1 06/12/2019 Appointment: Keily Arango WPtel: [phone] [facility] Annual Well Visit 06/12/2019 Visit Diagnosis Plan: [...] : J18.9 05/08/2019 Appointment: Keily Arango WPtel: [facility] Hospital Follow Up 05/08/2019 Visit Diagnosis Plan: [...] ICD-10 : J30.1 05/03/2019 Appointment: Fatou Onofre [address] [place], [place] [address] ACUTE ILLNESS 05/03/2019 Patient Education: amoxicillin- [employer] Coupon [id number] [email or web address]/samplemd/resources/getResource/[email or web address] Completed 05/03/2019 Visit Diagnosis Plan: Irritability and [...] ICD-10 : R45.4 11/25/2018 Appointment: Nataliia Hsieh [facility] [address] ACUTE ILLNESS 11/25/2018 Visit Diagnosis Plan: Acute suppurative otitis media without spontaneous rupture of ear drum, bilateral Discussion: cefdinir for 10 days. if wor sening symptoms later this week, call clinic. push fluids and tylenol/ibuprofen prn pain or fever. ICD-9 : 382.00 ICD-10 : H66.003 06/13/2018 Appointment: Fatou Onofre [address] ACUTE ILLNESS 06/13/2018 Visit Diagnosis Plan: Anuria [...] ICD-10 : R53.83 01/04/2018 Appointment: Fatou Onofre [address] [place] [address] ACUTE ILLNESS 01/04/2018 Patient Education: Patient Medication Summary Completed 01/04/2018 Visit Diagnosis Plan: Acute bronchitis, unspecified Di scussion: zithromax prescribed to take as directed. continue with allergy meds including flonase to help dry congestion. call office next week if new or worsening symptoms. ICD-9 : 466.0 ICD-10 : J20.9 12/31/2017 Appointment: Fatou Onofre [address] [place] [address] ACUTE ILLNESS 12/31/2017 Patient Education: Patient Medication Summary Completed 12/31/2017 Visit Diagnosis Plan: Epilepsy, unspecif ied, intractable, without status epilepticus Discussion: Stable on current regimen ICD-9 : 345.91 ICD-10 : G40.919 12/14/2017 Visit Diagnosis Plan: Encounter for [facility] medical examination without abnormal findings Discussion: Had recent lab done Follow Up: 3 months ICD-9 : V70.9 ICD-10 : Z00.00 12/14/2017 Visit Diagnosis Plan: Allergic rhinitis due to pollen Discussion: Continue current meds Change night time protonix to pepcid for total histamine blockade ICD-9 : 477.9 ICD-10 : J30.1 12/14/2017 Appointment: Keily Arango WPtel: [address] [place] [address] CHECK UP 12/14/2017 Patient Education: Patient Medication [...] : J30.1 12/02/2017 Appointment: Keily Arango WPtel: [facility] ACUTE ILLNESS 12/02/2017 Patient Education: Patient Medication Summary Completed 12/02/2017 Visit Diagnosis Plan: Other allergic rhinitis Discussi on: symptoms most likely caused from allergies. patient sent to hospital for decadron injection. instructed to restart patient's flonase at home. if new or worsening symptoms, call or rtc. ICD-9 : 477.8 ICD-10 : J30.89 10/12/2017 Appointment: Fatou Onofre [address] [place], [place] [phone] ACUTE ILLNESS 10/12/2017 Patient Education: Patient Medication [...] ICD-10 : G40.919 09/17/2017 Appointment: Fatou Onofre [address] [place] [address] ACUTE ILLNESS 09/17/2017 Patient Education: Patient Medication Summary Completed 09/17/2017 Visit Diagnosis Plan: Otitis media, unspecified, left ear Discussion: cefdinir prescribed daily for 10 days. instructed to administer tylenol/ibuprofen for pain or fever. if no improvement, or worsening symptoms, call or rtc. ICD-9 : 380.14 ICD-10 : H66.92 08/06/2017 Appointment: Fatou Onofre [address] [place], [place] [address] ACUTE ILLNESS 08/06/2017 Patient Education: Patient Medication Summary Completed 08/06/2017 Patient Education: Patient Medication Summary Completed 08/02/2017 Patient Education: Patient Medication Summary Completed 04/21/2017 Care Plan: MRI BRAIN STEM W/O DYE LOINC : 15842-5 Pending 04/21/2017 Patient Education: Patient Medication Summary Completed 04/20/2017 Care Plan: MRI BRAIN STEM W/O DYE LOINC : 21906-5 Pending 04/20/2017 Visit Diagnosis Plan: Vertigo of central origin, unspe cified ear Discussion: Continue meclizine at 12.5mg po BID for 2 more weeks then go to 12.5mg daily for 2 weeks then 6.25mg daily for 2 weeks then stop Notify if any symptoms return with weaning process ICD-9 : 386.2 ICD-10 : H81.49 04/01/2017 Appointment: Keily Arango WPtel: [address] [place], [place] [phone] FOLLOW UP 04/01/2017 Patient Education: Patient Medication Summary Completed 04/01/2017 Patient Education: Patient Medication Summary Completed 03/09/2017 Care Plan: CT HEAD/BRAIN W/O DYE LOINC : 23713-6 Pending 03/09/2017 Visit Plan: It's difficult to [...] medications indicated. 03/01/2017 Appointment: Emely Hdz WPtel: [address] [place], [place] [phone] ACUTE ILLNESS 03/01/2017 Patient Education: Patient Medication Summary Completed 03/01/2017 Patient Education: Patient Medication Summary Completed 12/17/2016 Visit Diagnosis Plan: Allergic rhinitis due to pollen Discussion: Continue zyrtec/singulair ICD-9 : 477.9 ICD-10 : J30.1 11/10/2016 Visit Diagnosis Plan: Acute and subacute allergic otitis media (mucoid) (sanguinous) (serous), left ear Discussion: Zithromax ICD-9 : 381.05 ICD-10 : H65.112 11/10/2016 Appointment: Keily Arango WPtel: [facility] ACUTE ILLNESS 11/10/2016 Patient Education: Patient Medication Summary Completed 11/10/2016 Patient Education: Patient Medication Summary Completed 09/07/2016 Care Plan: URINALYSIS AUTO W/O [place] : 94387-7 Pending 09/07/2016 Visit Diagnosis Plan: Unspecified ovarian [...] : N20.0 08/13/2016 Appointment: Keily Arango WPtel: [address] [place], [place] [phone] 08/12 confirmed-sp FOLLOW UP 08/13/2016 Patient Education: Patient Medication Summary Completed 08/13/2016 Patient Education: Patient Medication Summary Completed 05/19/2016 Care Plan: X-RAY EXAM OF FOOT left foot LOINC : 26 095-0 Pending 05/19/2016 Visit Plan: Discussed with Dr Conchita MAGANA C to be drawn Order sent to Will call with results 03/27/2016 Appointment: Aziza Magallanes [address] [id number] ACUTE ILLNESS 03/27/2016 Patient Education: Patient Medication Summary Completed 03/27/2016 Visit Plan: Go for dose of rocephin 1gm IM today and tomorrow then done Diflucan 150mg x1 today Discussed with mom via phone about urology fwup--she will talk with her and let us know 03/23/2016 Appointment: Keily Arango WPtel: [address] [place], [place] [phone] 03/23 confirmed ~sl FOLLOW UP 03/23/2016 Patient Education: Patient Medication Summary Completed 03/23/2016 Visit Plan: Per Dr Arango, straight cat h for UA and culture today Ok to have a standing order for further UA needs at for straight cath Rocephin IM today and daily through Wednesday Mom has arranged a family friend that is an [employer] to give Wednesday and Sundays injections - rxs for rocephin and lido sent to [facility] cannot order the lido in the qty patient needs) Dr Arango wants patient to be re-evaluated on Wednesday in clinic Referral to Urology for recurrent UTIs and urinary retention - mom wants to research who she wants her sent to and let us know 03/19/2016 Appointment: Aziza Magallanes [phone] [id number] ACUTE ILLNESS 03/19/2016 Patient Education: Patient Medication Summary Completed 03/19/2016 Visit Plan: 1 more week of cefdinir 03/02/2016 Appointment: Keily Arangotel: [address] [place], [place] [phone] 03/02 confirmed~sl WORK IN 03/02/2016 Patient Education: [...] if worsening 02/24/2016 Appointment: Aziza Magallanes [address] [id number] ACUTE ILLNESS 02/24/2016 Patient Education: Patient Medication Summary Completed 02/24/2016 Care Plan: CHEST X-RAY 2VW FRONTAL&LATL LOINC : 79824-1 Pending 02/24/2016 Care Plan: X-RAY EXAM OF ABDOMEN LOINC : 74181-7 Pending 02/24/2016 Visit Plan: Repeat zithromax x1 week Cip rodex to right ear x1 week Add Pepcid q HS x2-4 weeks for total histamine blockade and for extra stomach protection while on zithromax 12/16/2015 App[facility]ment: [facility] [facility] [facility] 6/9 lm~sl 6/10 lm ~sl FOLLOW UP 12/16/2015 Patient Education: Patient Medication Summary Completed 12/16/2015 Patient Education: [facility] - Saving [employer] - Sertraline HCL - 18-64 - Dynamic Portal ID Completed 12/16/2015 Visit Plan: Saline nasal flushes prn. Ty lenol/Motrin prn headache. Notify if persists/symptoms worsens Dexamethasone given 11/12/2015 Appointment: Keily Arango WPtel: [facility]3 [facility] US 5/9 lm~sl 5/10 lm~sl 5/10 confirm-sp [...] visits for Belk[facility] 10/16/2015 Appointment: Aziza Magallanes [address] [place], [place] [phone] ACUTE ILLNESS 10/16/2015 Patient Education: Patient Medication Summary Completed 10/16/2015 Appointment: Aziza Magallanes [address] [place], [place] [phone] [place] canceled, feeling better CANCELED 016 Visit Plan: No further abx needed Go mariela k to jevity for next 3 days and restart carafate Notify if abdominal pain worsens 09/23/2015 Appointment: Keily Arango WPtel: [phone] [facility] 318 confirmed-sp FOLLOW UP 09/23/2015 Patient Education: Patient [...] done in the past. Order sent to [facility] since [facility] does not have [...] for now. 09/20/2015 Appointment: Aziza Magallanes [address] ACUTE ILLNESS 09/20/2015 Patient Education: Patient Medication Summary Completed 09/20/2015 Visit Plan: Depo Medrol 40mg/ Kenalog 40 mg IM today Resume Ciprodex otic gtts. bid to Rt. ear 09/10/2015 Appointment: Bibiana Garg WPtel: [phone] [place] [phone] 09/08 confirmed-sp ACUTE ILLNESS 09/10/2015 Patient Education: Patient Medication Summary Completed 09/10/2015 Visit Plan: Increase Protonix to 40mg po BID for 1month Continue carafate at q AC dosing for full month then wean off Jevity for 2 more days then advance diet if able Continue current meds 08/21/2015 Appointment: Keily Arango WPtel: [phone] [place] [phone] [place] NEW PATIENT 08/21/2015 Patient Education: Patient [...] arranged a family friend that is an [employer] to give Wednesday and Sundays injections [...] done in the past. Order sent to [facility] since [facility] does not have [...]
--- OUTSIDE RECORDS SUMMARY | 2019-11-10 19:40 | XMS REPORT | CCD ---
Author Author Belkys Arango D.O. 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 Name Role Phone Keily Arango D.O., PP Unavailable CCM Unavailable Summary Purpose Interface Exchange Insurance Providers Payer name Policy type / Coverage type Covered alliance party ID Effective Begin Date Effective End Date [employer] [facility] [place] Medicaid [id number] U nknown Family History Family History data not found Social History Social History Element Codes Description Effective Dates Marital status Unknown Single 08/21/2015 Employment Unknown Currently unemployed Physically handicapped 08/21/[address]: 459787469 Has never smoked or chewed tobacco 08/21/[address]: 107184860 Never drinks alcohol 2015 Allergies, Adverse Reactions, [...] cefdinir 250 mg/5 mL oral suspension RxNorm: 131764 12 Milliliter(s) Oral QD though PEG tube 07/25/2019 08/03/2019 Active Zenpep 40,000 unit-126,000 unit-168,000 unit capsule,d elayed release RxNorm: 5273830 1 Capsule(s) Oral AC 07/10/2019 11/06/2019 Active famotidine 20 mg tablet RxNorm: 829681 TAKE 1 TABLET BY MOUTH EVERY NIGHT AT BEDTIME 07/09/2019 01/04/2020 Active sertraline 50 mg tablet RxNorm: 362834 TAKE 1 TABLET BY MOUTH EVERY NIGHT AT BEDTIME 07/09/2019 09/06/2019 Active Zenpep 40,000 unit-126,000 unit-168,000 unit capsule,d elayed release RxNorm: 4271666 1 Capsule(s) Oral AC 06/12/2019 07/09/2019 Inactive Zenpep 40,000 unit-126,000 unit-168,000 unit capsule,d elayed release RxNorm: 9031210 1 Capsule(s) Oral AC 05/24/2019 05/23/2019 Inactive Zenpep 40,000 unit-126,000 unit-168,000 unit capsule,d elayed release RxNorm: 7235508 1 Capsule(s) Oral AC 05/24/2019 06/11/2019 Inactive Ciprodex 0.3 %-0.1 % ear drops,suspension RxNorm: 003561 DROP(S) 4 DROP(S) OTIC BID 05/22/2019 06/18/2019 Inactive oxcarbazepine 300 mg/5 mL (60 mg/mL) oral suspension RxNorm: 537387 15 Milliliter(s) Oral two times a day 05/08/2019 11/03/2019 Active meclizine 12.5 mg tablet RxNorm: 850393 1 TABLET(S) PO TID NEEDE D 05/05/2019 08/02/2019 Active change in quantity Zithromax 200 mg/5 mL oral suspension RxNorm: 283976 12.5 Dilcia liter(s) Oral QD 05/04/2019 05/09/2019 Inactive amoxicillin 400 mg/5 mL oral suspension RxNorm: 815381 10 Milliliter(s) Oral two times a day 05/03/2019 05/13/2019 Inactive Singulair 10 mg tablet RxNorm: 845738 1 TABLET(S) PO QD 03/28/2019 Active Macrobid 100 mg capsule RxNorm: 700644 1 Capsule(s) PO BID 03/16/2003/22/2019 Inactive meclizine 12.5 mg tablet RxNorm: 794079 1 Tablet(s) PO TID as neede d 03/10/2019 05/04/2019 Inactive change in quantity Ciprodex 0.3 %-0.1 % ear drops,suspension RxNorm: 646671 DROP(S) 4 DROP(S) OTIC BID 03/08/2019 04/04/2019 Inactive oxcarbazepine 300 mg/5 mL (60 mg/mL) oral suspension RxNorm: 194370 15 Milliliter(s) PO BID 03/07/2019 05/07/2019 Inactive Macrobid 100 mg capsule RxNorm: 101756 1 Capsule(s) PO BID 02/21/2003/01/2019 Inactive Macrobid 100 mg capsule RxNorm: 444391 1 Capsule(s) PO BID 02/21/2002/19/2019 Inactive meclizine 12.5 mg tablet RxNorm: 765021 1 Tablet(s) PO TID as neede d 02/06/2019 03/07/2019 Inactive change in quantity Ciprodex 0.3 %-0.1 % ear drops,suspension RxNorm: 495984 DROP(S) 4 DROP(S) OTIC BID 01/30/2019 02/12/2019 Inactive diazepam 10 mg tablet RxNorm: 410814 1 Tablet(s) PO QHS as needed 0 01/27/2019 03/27/2019 Inactive sertraline 50 mg tablet RxNorm: 941192 1 Tablet(s) PO QHS 12/29/2018 06/26/2019 Inactive famotidine 20 mg tablet RxNorm: 330430 1 Tablet(s) PO QHS 12/29/2018 06/26/2019 Inactive Ciprodex 0.3 %-0.1 % ear drops,suspension RxNorm: 912810 DROP(S) 4 DROP(S) OTIC BID 12/14/2018 12/27/2018 Inactive Generlac 10 gram/15 mL oral solution RxNorm: 930411 15 Milliliter(s) PO TWO TO THREE TIMES DAILY 12/06/2018 06/03/2019 Inactive Protonix 40 mg tablet,delayed release RxNorm: 583324 1 Tablet(s) PO or per feeding tube BID 11/24/2018 05/22/2019 Inactive meclizine 12.5 mg tablet RxNorm: 524597 1 Tablet(s) PO TID as neede d 11/11/2018 02/06/2019 Inactive change in quantity Ciprodex 0.3 %-0.1 % ear drops,suspension RxNorm: 526050 DROP(S) 4 DROP(S) OTIC BID 11/08/2018 11/21/2018 Inactive diazepam 10 mg tablet RxNorm: 139545 1 Tablet(s) PO QHS as needed 0 10/21/2018 11/19/2018 Inactive Generlac 10 gram/15 mL oral solution RxNorm: 433666 Mil liliter(s) 15 MILLILITER(S) PO TWO TO THREE TIMES DAILY 10/07/2018 11/05/2018 Inacti ve Ciprodex 0.3 %-0.1 % ear drops,suspension RxNorm: 655162 DROP(S) DROP(S) 4 DROP(S) OTIC BID 08/26/2018 03/15/2019 Inactive meclizine 12.5 mg tablet RxNorm: 094506 1 TABLET(S) PO TID NEEDE D 07/25/2018 10/22/2018 Inactive change in quantity oxcarbazepine 300 mg/5 mL (60 mg/mL) oral suspension RxNorm: 799681 15 Milliliter(s) PO BID 07/08/2018 07/07/2018 Inactive oxcarbazepine 300 mg/5 mL (60 mg/mL) oral suspension RxNorm: 605636 15 Milliliter(s) PO BID 07/08/2018 01/03/2019 Inactive sertraline 50 mg tablet RxNorm: 226342 1 TABLET(S) PO QHS 07/06/2018 12/28/2018 Inactive Singulair 10 mg tablet RxNorm: 033357 1 TABLET(S) PO QD 06/24/2018 Inactive Ciprodex 0.3 %-0.1 % ear drops,suspension RxNorm: 617092 DROP(S) 4 DROP(S) OTIC BID 06/20/2018 06/19/2018 Inactive Ciprodex 0.3 %-0.1 % ear drops,suspension RxNorm: 541338 Drop(s) DROP(S) 4 DROP(S) OTIC BID 06/20/2018 07/03/2018 Inactive cefdinir 250 mg/5 mL oral suspension RxNorm: 684322 12 Milliliter(s) PO QD though PEG tube 06/13/2018 06/22/2018 Inactive famotidine 20 mg tablet RxNorm: 533501 1 Tablet(s) PO QHS 05/31/2018 11/26/2018 Inactive famotidine 40 mg/5 mL (8 mg/mL) oral suspension RxNorm: 3102 74 2.5 Milliliter(s) PO QHS 04/29/2018 06/12/2018 Inactive meclizine 12.5 mg tablet RxNorm: 363100 1 TABLET(S) PO TID NEEDE D 04/25/2018 07/23/2018 Inactive change in quantity Generlac 10 gram/15 mL oral solution RxNorm: 274830 Mil liliter(s) 15 MILLILITER(S) PO TWO TO THREE TIMES DAILY 04/04/2018 05/03/2018 Inacti ve Ciprodex 0.3 %-0.1 % ear drops,suspension RxNorm: 036251 Drop(s) 4 DROP(S) OTIC BID 04/04/2018 04/17/2018 Inactive diazepam 10 mg tablet RxNorm: 841222 1 Tablet(s) PO QHS as needed 1 05/03/2018 Inactive famotidine 40 mg/5 mL (8 mg/mL) oral suspension RxNorm: 3102 74 2.5 Milliliter(s) PO QHS 04/04/2018 04/28/2018 Inactive Generlac 10 gram/15 mL oral solution RxNorm: 576529 15 MILLILITER(S) PO TWO TO THREE TIMES DAILY 03/24/2018 04/03/2018 Inactive Singulair 10 mg tablet RxNorm: 155742 1 TABLET(S) PO QD 03/18/2018 Inactive Ciprodex 0.3 %-0.1 % ear drops,suspension RxNorm: 339465 Drop(s) 4 DROP(S) OTIC BID 03/08/2018 03/21/2018 Inactive Generlac 10 gram/15 mL oral solution RxNorm: 236860 15 Milliliter(s) PO two to three times daily 03/03/2018 03/23/2018 Inactive meclizine 12.5 mg tablet RxNorm: 969517 1 Tablet(s) PO TID as neede d 02/10/2018 04/10/2018 Inactive change in quantity meclizine 12.5 mg tablet RxNorm: 923935 1 Tablet(s) PO BID as neede d 02/07/2018 02/09/2018 Inactive change in quantity Ciprodex 0.3 %-0.1 % ear drops,suspension RxNorm: 229741 Drop(s) 4 DROP(S) OTIC BID 02/02/2018 03/08/2018 Inactive sertraline 50 mg tablet RxNorm: 984563 1 TABLET(S) PO QHS 01/25/2018 07/05/2018 Inactive Zithromax 200 mg/5 mL oral suspension RxNorm: 360436 12.5 Dilcia liter(s) PO QD 12/31/2017 01/04/2018 Inactive Pepcid 20 mg tablet RxNorm: 454521 TABLET(S) 1 TABLET(S) PO QHS 04/29/2018 Inactive famotidine 40 mg/5 mL (8 mg/mL) oral suspension RxNorm: 3102 74 2.5 Milliliter(s) PO QHS 12/28/2017 12/27/2017 Inactive famotidine 40 mg/5 mL (8 mg/mL) oral suspension RxNorm: 3102 74 2.5 Milliliter(s) PO QHS 12/28/2017 04/03/2018 Inactive Ciprodex 0.3 %-0.1 % ear drops,suspension RxNorm: 925197 Drop(s) 4 DROP(S) OTIC BID 12/27/2017 02/02/2018 Inactive meclizine 12.5 mg tablet RxNorm: 205733 1 Tablet(s) PO BID as neede d 12/23/2017 02/06/2018 Inactive change in quantity Protonix 40 mg tablet,delayed release RxNorm: 440714 1 Tablet(s) PO or per feeding tube BID 12/16/2017 07/13/2018 Inactive oxcarbazepine 300 mg/5 mL (60 mg/mL) oral suspension RxNorm: 876038 15 Milliliter(s) PO BID 12/16/2017 07/08/2018 Inactive meclizine 12.5 mg tablet RxNorm: 258180 1 Tablet(s) PO BID as neede d 12/15/2017 02/07/2018 Inactive change in quantity Pepcid 40 mg/5 mL (8 mg/mL) oral suspension RxNorm: 149409 5 Milliliter(s) PO QHS to replace nighttime pantoprazole dose 12/14/2017 12/27/2017 Inact марина meclizine 12.5 mg tablet RxNorm: 698245 1 Tablet(s) PO BID as neede d 12/13/2017 12/23/2017 Inactive diazepam 10 mg tablet RxNorm: 036368 1 Tablet(s) PO QHS as needed 0 12/02/2017 03/01/2018 Inactive prednisolone 15 mg/5 mL oral solution RxNorm: 877274 5 Milliliter(s) PO BID for 3 days then 5ml daily for 3 days then 2.5ml daily for 3 days 12/02/2017 12/13/2017 Inactive sertraline 50 mg tablet RxNorm: 399494 1 Tablet(s) PO QHS 11/04/2017 01/24/2018 Inactive Ciprodex 0.3 %-0.1 % ear drops,suspension RxNorm: 946782 Drop(s) 4 DROP(S) OTIC BID 10/18/2017 10/31/2017 Inactive Ciprodex 0.3 %-0.1 % ear drops,suspension RxNorm: 504223 Drop(s) 4 DROP(S) OTIC BID 10/18/2017 12/27/2017 Inactive Singulair 10 mg tablet RxNorm: 097524 1 Tablet(s) PO QD 09/30/2017 Inactive diazepam 5 mg/5 mL (1 mg/mL) oral solution RxNorm: 005495 2.5 Milliliter(s) PO QD give additional 5 mg dose if seizure occurs 09/17/2017 No Stop Date A ctive Bactrim DS 800 mg-160 mg tablet RxNorm: 020474 1 Tablet(s) PO BID 0 09/17/2017 09/23/2017 Inactive Ciprodex 0.3 %-0.1 % ear drops,suspension RxNorm: 825975 4 DROP (S) OTIC BID 09/13/2017 10/18/2017 Inactive cefdinir 250 mg/5 mL oral suspension RxNorm: 738618 12 Milliliter(s) PO QD though PEG tube 08/06/2017 08/15/2017 Inactive sertraline 50 mg tablet RxNorm: 121253 1 Tablet(s) PO QHS 08/02/2017 11/04/2017 Inactive Ciprodex 0.3 %-0.1 % ear drops,suspension RxNorm: 045427 4 DROP (S) OTIC BID 07/22/2017 08/11/2017 Inactive Singulair 10 mg tablet RxNorm: 764168 1 Tablet(s) PO QD 06/30/2017 Inactive diazepam 10 mg tablet RxNorm: 176576 TAKE 1 TABLET BY M OUTH EVERY NIGHT AT BEDTIME NEEDED 06/04/2017 07/03/2017 Inactive oxcarbazepine 300 mg/5 mL (60 mg/mL) oral suspension RxNorm: 921649 15 MILLILITER(S) PO BID 05/03/2017 12/16/2017 Inactive sertraline 50 mg tablet RxNorm: 618235 1 Tablet(s) PO QHS 05/03/2017 08/02/2017 Inactive Protonix 40 mg tablet,delayed release RxNorm: 176665 1 Tablet(s) PO or per feeding tube BID 04/26/2017 12/16/2017 Inactive Ciprodex 0.3 %-0.1 % ear drops,suspension RxNorm: 043927 4 DROP (S) OTIC BID 04/26/2017 05/23/2017 Inactive Generlac 10 gram/15 mL oral solution RxNorm: 360565 Mil liliter(s) TAKE 15 ML BY MOUTH TWO-THREE TIMES DAILY 04/08/2017 03/03/2018 Inactive Singulair 10 mg tablet RxNorm: 708470 1 Tablet(s) PO QD 03/03/2017 Inactive diazepam 10 mg tablet RxNorm: 610565 1 Tablet(s) PO QHS as needed 0 02/15/2017 06/04/2017 Inactive Singulair 10 mg tablet RxNorm: 586997 1 Tablet(s) PO QD 12/01/2016 Inactive Diflucan 150 mg tablet RxNorm: 138826 Tablet(s) Give 1 tab PO now and then repeat dose in 5 days 11/10/2016 03/31/2017 Inactive Zithromax 200 mg/5 mL oral suspension RxNorm: 978279 12.5 Dilcia liter(s) PO QD 11/10/2016 11/14/2016 Inactive Singulair 10 mg tablet RxNorm: 557658 TAKE 1 TABLET BY MOUTH ON CE DAILY 11/02/2016 12/01/2016 Inactive diazepam 10 mg tablet RxNorm: 575419 TAKE 1 TABLET BY M OUTH EVERY NIGHT AT BEDTIME NEEDED 10/21/2016 11/19/2016 Inactive sertraline 50 mg tablet RxNorm: 711083 1 Tablet(s) PO QHS 10/12/2016 01/09/2017 Inactive fluconazole 100 mg tablet RxNorm: 274852 1 Tablet(s) PO QD 09/23/19 17 09/24/2016 Inactive fluconazole 100 mg tablet RxNorm: 627795 1 Tablet(s) PO QD 09/23/19 17 09/21/2016 Inactive Bactrim DS 800 mg-160 mg tablet RxNorm: 191303 1 Tablet(s) PO BID 0 09/10/2016 09/09/2016 Inactive Bactrim DS 800 mg-160 mg tablet RxNorm: 782698 1 Tablet(s) PO BID 0 09/10/2016 09/16/2016 Inactive oxcarbazepine 300 mg/5 mL (60 mg/mL) oral suspension RxNorm: 979612 15 Milliliter(s) PO BID 09/07/2016 03/05/2017 Inactive sertraline 50 mg tablet RxNorm: 486589 1 Tablet(s) PO QHS 07/06/2016 10/03/2016 Inactive Pepcid 20 mg tablet RxNorm: 811622 Tablet(s) 1 TABLET(S) PO QHS 08/201603/08/2017 Inactive sertraline 50 mg tablet RxNorm: 896389 1 Tablet(s) PO QHS 06/08/2016 05/03/2017 Inactive Generlac 10 gram/15 mL oral solution RxNorm: 397817 Mil liliter(s) TAKE 15 ML BY MOUTH TWO-THREE TIMES DAILY 06/08/2016 09/08/2016 Inactive Pepcid 20 mg tablet RxNorm: 607927 1 TABLET(S) PO QHS 06/04/201607/2016 Inactive fluconazole 100 mg tablet RxNorm: 495099 1 Tablet(s) QD through PEG tube 05/13/2016 12/01/2017 Inactive Diflucan 150 mg tablet RxNorm: 834193 Give 1 tab PO now and then repeat dose in 5 days 03/19/2016 11/09/2016 Inactive ceftriaxone 1 gram solution for injection RxNorm: 2053863 1 Gram(s) IM QD Wednesday and Wednesday03/19/2016 11/09/2016 Inactive lidocaine 10 mg/mL (1 %) injection solution RxNorm: 4167645 Use as directed to reconstitute Rocephin when needed 03/19/2016 12/13/2017 Inactive Generlac 10 gram/15 mL oral solution RxNorm: 602290 JOE E 15 ML BY MOUTH TWO- THREE TIMES DAILY 03/19/2016 06/07/2016 Inactive oxcarbazepine 300 mg/5 mL oral suspension RxNorm: 247694 15 Milliliter(s) PO BID 03/13/2016 09/07/2016 Inactive Ciprodex 0.3 %-0.1 % ear drops,suspension RxNorm: 499447 4 DROP (S) OTIC BID 03/09/2016 03/15/2016 Inactive cefdinir 250 mg/5 mL oral suspension RxNorm: 979210 11. 75 Milliliter(s) PO QD though PEG tube 03/02/2016 03/08/2016 Inactive cefdinir 250 mg/5 mL oral suspension RxNorm: 777467 11. 75 Milliliter(s) PO QD though PEG tube 02/24/2016 03/01/2016 Inactive cefdinir 250 mg/5 mL oral suspension RxNorm: 144877 11. 75 Milliliter(s) PO QD though PEG tube 02/24/2016 02/23/2016 Inactive Ciprodex 0.3 %-0.1 % ear drops,suspension RxNorm: 323075 4 Drop (s) OTIC BID 02/24/2016 03/01/2016 Inactive Generlac 10 gram/15 mL oral solution RxNorm: 767452 JOE E 15 ML BY MOUTH TWICE DAILY 02/17/2016 03/18/2016 Inactive Generlac 10 gram/15 mL oral solution RxNorm: 036939 15 Millilit er(s) PO BID 01/23/2016 02/16/2016 Inactive Pepcid 20 mg tablet RxNorm: 599098 1 TABLET(S) PO QHS 01/13/201605/07 Inactive Ciprodex 0.3 %-0.1 % ear drops,suspension RxNorm: 681436 4 Drop (s) OTIC BID 12/23/2015 12/29/2015 Inactive sertraline 50 mg tablet RxNorm: 983633 1 Tablet(s) PO QHS 12/16/2015 06/07/2016 Inactive Zithromax 500 mg tablet RxNorm: 857507 1 Tablet(s) PO QD 12/16/2015 0 12/22/2015 Inactive Pepcid 20 mg tablet RxNorm: 580985 1 Tablet(s) PO QHS 12/16/201501/02 Inactive Zithromax 500 mg tablet RxNorm: 237353 1 Tablet(s) PO QD 11/12/2015 0 11/18/2015 Inactive Singulair 10 mg tablet RxNorm: 911527 1 Tablet(s) PO BID 10/16/2015 0 11/11/2015 Inactive diazepam 10 mg tablet RxNorm: 882769 1 Tablet(s) PO QHS 10/07/2015 Inactive diazepam 10 mg tablet RxNorm: 633161 1 Tablet(s) PO QHS 10/07/2015 Inactive fexofenadine 30 mg/5 mL oral suspension RxNorm: 675560 10 Milliliter(s) PO one to two times daily PRN allergies 09/20/2015 12/15/2015 Inactive ceftriaxone 1 gram solution for injection RxNorm: 8241258 1 Gram (s) IM QD 09/20/2015 09/21/2015 Inactive Ciprodex 0.3 %-0.1 % ear drops,suspension RxNorm: 122306 4 Drop (s) OTIC BID 09/20/2015 10/03/2015 Inactive Protonix 40 mg tablet,delayed release RxNorm: 356013 1 Tablet(s) PO or per feeding tube BID 08/21/2015 12/18/2015 Inactive Carafate 100 mg/mL oral suspension RxNorm: 509473 10 Mi lliliter(s) Miscellaneous per feeding tube AC & HS 08/21/2015 09/19/2015 Inactive Zyrtec 10 mg tablet RxNorm: 2610862 1 Tablet(s) PO QD No Start Date Active diazepam 20 mg rectal kit RxNorm: 749729 RTL as needed No Start Date Active Lortab Elixir 10 mg-300 mg/15 mL oral solution RxNorm: 54403 45 8 PO Q6-8H as needed No Start Date Active ondansetron HCl 4 mg/5 mL oral solution RxNorm: 054505 10 Milliliter(s) PO as needed and through tube No Start Date Active sertraline 50 mg tablet RxNorm: 546371 1 Tablet(s) PO QD No Start D ate 12/15/2015 Inactive Brittany 180 mg tablet RxNorm: 609998 1 Tablet(s) PO QD No Start Date 06/12/2018 Inactive Generlac 10 gram/15 mL oral solution RxNorm: 013196 15 Millilit er(s) PO BID No Start Date 01/22/2016 Inactive oxcarbazepine 300 mg/5 mL oral suspension RxNorm: 470769 13.5 Milliliter(s) PO QAM and 15ml in the evening No Start Date 12/15/2015 Inactive Singulair 10 mg tablet RxNorm: 973372 1 Tablet(s) PO QD No Start Da te 11/30/2016 Inactive meclizine 12.5 mg tablet RxNorm: 716218 1 Tablet(s) PO TID as needed for dizziness No Start Date 09/13/2017 Inactive meclizine 12.5 mg tablet RxNorm: 006595 1 Tablet(s) PO BID No Start Date 12/12/2017 Inactive fluconazole 100 mg tablet RxNorm: 976225 1 Tablet(s) QD through PEG tube No Start Date 05/12/2016 Inactive Flomax 0.4 mg capsule RxNorm: 127454 1 Capsule(s) PO QD No Start Da te 06/12/2018 Inactive diazepam 10 mg tablet RxNorm: 593731 1 Tablet(s) PO QHS as needed N o Start Date 02/14/2017 Inactive Generlac 10 gram/15 mL oral solution RxNorm: 652152 15 Milliliter(s) PO two to three times daily No Start Date 03/02/2018 Inactive oxcarbazepine 300 mg/5 mL oral suspension RxNorm: 750852 15 Milliliter(s) PO BID No Start Date 12/15/2017 Inactive Medication Administered No Medication Administered data Immunizations Vaccine Codes Date Status Influenza CVX: 141 04/21/2019 Results No Results data Procedures Procedure Codes Date DEXAMETHASONE SODIUM PHOS CPT-4: J1100 05/03/2019 THER/PROPH/DIAG INJ SC/IM CPT-4: 90544 05/03/2019 CEFTRIAXONE SODIUM INJECTION CPT-4: J0696 03/19/2016 THER/PROPH/DIAG INJ SC/IM CPT-4: 75235 03/19/2016 DEXAMETHASONE SODIUM PHOS CPT-4: J1100 11/12/2015 THER/PROPH/DIAG INJ SC/IM CPT-4: 24360 11/12/2015 CEFTRIAXONE SODIUM INJECTION CPT-4: J0696 09/20/2015 THER/PROPH/DIAG INJ SC/IM CPT-4: 31522 09/20/2015 THER/PROPH/DIAG INJ SC/IM CPT-4: 76473 09/10/2015 METHYLPREDNISOLONE 40 MG INJ CPT-4: J1030 09/10/2015 TRIAMCINOLONE ACET INJ NOS CPT-4: J3301 09/10/2015 Vital Signs Date Vital 07/25/2019 Blood Pressure 1: 116/80 Code: 8480-6 BMI: 23.2 Code: 83835-2 Heart Rate 1: 81 bpm Height: 4'5" Respiratory Rate: 16 bpm SpO2: 100% Tempera ture: 36.8 (C) / 98.2 (F) Weight: 92 lbs 06/12/2019 Blood Pressure 1: 112/74 Code: 8480-6 BMI: 23.2 Code: 40112-5 Heart Rate 1: 102 bpm Height: 4'5" [...] 1: 114/70 Code: 8480-6 BMI: 23.1 Code: 20345-2 Heart Rate 1: 80 bpm Height: 4'6" [...] visit Encounters Encounter Performer Location Codes Date ([id number]) OFFICE/OUTPATIENT VISIT EST Diagnosis: Sinusitis[ICD10: J32.9] Fatou Bobby [employer] [facility] CPT-4: 06360 07/25/2019 ([id number]) PREV VISIT EST AGE 18-39 Diagnosis: Encounter for general adult medical examination with abnormal findings[ICD10: Z00.01] Diagnosis: Chronic pancreatitis[ICD10: K86.1] Diagnosis: Cerebral palsy, unspecified[ICD10: G80.9] Keily Bobby [facility] CPT-4: 92375 06/12/2019 ([id number]) OFFICE/OUTPATIENT VISIT EST Diagnosis: Pneumonia, organism unspecified[ICD10: J18.9] Diagnosis: Breast mass, right[ICD10: N63.10] Keily Bobby [employer] [facility] CPT-4: 83792 05/08/2019 ([id number]) OFFICE/OUTPATIENT VISIT EST Diagnosis: Allergic rhinitis due to pollen[ICD10: J30.1] Diagnosis: Otitis media, unspecified, right ear[ICD10: H66.91] Fatou LINARES SAlicia [employer] [facility] CPT-4: 48721 05/03/2019 ([id number]) OFFICE/OUTPATIENT VISIT EST Diagnosis: Irritability and anger[ICD10: R45.4] Nataliia MCHUGH [facility] [place] CPT-4: 71748 11/25/2018 ([id number]) OFFICE/OUTPATIENT VISIT EST Diagnosis: Acute suppurative otitis media without spontaneous rupture of ear drum, bilateral[ICD10: H66.003] Fatou ARANGO DO [facility] CPT-4: 43146 06/13/2018 ([id number]) OFFICE/OUTPATIENT VISIT EST Diagnosis: Other fatigue[ICD10: R53.83] Diagnosis: Anuria and oliguria[ICD10: R34] Diagnosis: Acute gastritis without bleeding[ICD10: K29.00] Fatou ARANGO DO [facility] CPT-4: 82100 01/04/2018 ([id number]) OFFICE/OUTPATIENT VISIT EST Diagnosis: Acute bronchitis, unspecified[ICD10: J20.9] Fatou ARANGO DO [facility] CPT-4: 78090 12/31/2017 ([id number]) PREV VISIT EST AGE 18-39 Diagnosis: Encounter for general adult medical examination without abnormal findings[ICD10: Z00.00] Diagnosis: Severe intellectual disabilities[ICD10: F72] Diagnosis: Allergic rhinitis due to pollen[ICD10: J30.1] Diagnosis: Epilepsy, unspecified, intractable, without status epilepticus[ICD10: G40.919] Diagnosis: Gastro-esophageal reflux disease without esophagitis[ICD10: K21.9] Keily ARANGO [employer] [facility] CPT-4: 25493 12/14/2017 ([id number]) OFFICE/OUTPATIENT VISIT EST Diagnosis: Allergic rhinitis due to pollen[ICD10: J30.1] Diagnosis: Epilepsy, unspecified, intractable, without status epilepticus[ICD10: G40.919] Keily ARANGO [employer] [facility] CPT-4: 05519 12/02/2017 ([id number]) OFFICE/OUTPATIENT VISIT EST Diagnosis: Other allergic rhinitis[ICD10: J30.89] Fatou ARANGO [employer] [facility] CPT-4: 33457 10/12/2017 OFFICE/OUTPATIENT VISIT EST Diagnosis: Acute suppurative otitis media without spontaneous rupture of ear drum, recurrent, left ear[ICD10: H66.005] Diagnosis: Epilepsy, unspecified, intractable, without status epilepticus[ICD10: G40.919] Diagnosis: Hesitancy of micturition[ICD10: R39.11] Fatou Bobby [facility] CPT-4: 77739 09/17/2017 OFFICE/OUTPATIENT VISIT EST Diagnosis: Otitis media, unspecified, left ear[ICD10: H66.92] Fatou Bobby [facility] CPT-4: 46196 08/06/2017 ([id number]) OFFICE/OUTPATIENT VISIT EST Diagnosis: Vertigo of central origin, 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.49] Diagnosis: Dizziness and giddiness[ICD10: R42] Keily NARANJO [facility] CPT-4: 32115 04/01/2017 OFFICE/OUTPATIENT VISIT EST Diagnosis: Vomiting, unspecified[ICD10: R11.10] Diagnosis: 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)[ICD10: K56.5] Diagnosis: Personal history of urinary calculi[ICD10: Z87.442] Emely [facility] CPT-[facility]: 39586 03/01/2017 ([id number]) OFFICE/OUTPATIENT VISIT EST Diagnosis: Allergic rhinitis due to pollen[ICD10: J30.1] Diagnosis: Acute and subacute allergic otitis media (mucoid) (sanguinous) (serous), left ear[ICD10: H65.112] [facility] 60180 11/10/2016 ([id number]) OFFICE/OUTPATIENT VISIT EST Diagnosis: 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] Diagnosis: Unspecified ovarian cyst, right side[ICD10: N83.201] Diagnosis: Cyst of kidney, 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] Keily CERON Alicia [facility] CPT-4: 48742 08/13/2016 ([id number]) OFFICE/OUTPATIENT VISIT EST Diagnosis: Rash and other nonspecific skin eruption[ICD10: R21] Aziza LINARES [facility] CPT-4: 40176 03/27/2016 ([id number]) OFFICE/OUTPATIENT VISIT EST Diagnosis: Urinary tract infection, site not specified[ICD10: N39.0] Keily ARANGO [employer] [facility] CPT-4: 33392 03/23/2016 ([id number]) OFFICE/OUTPATIENT VISIT EST Diagnosis: Retention of urine, unspecified[ICD10: R33.9] Diagnosis: Dysuria[ICD10: R30.0] Diagnosis: Constipation, unspecified[ICD10: K59.00] Aziza Magallanes SIOMARA ELIZABETHOSMANY ARANGO [employer] [facility] CPT-4: 22840 03/19/2016 ([id number]) OFFICE/OUTPATIENT VISIT EST Diagnosis: Acute sinusitis, unspecified[ICD10: J01.90] Keily ARANGO [facility] CPT-4: 31983 03/02/2016 OFFICE/OUTPATIENT VISIT EST Diagnosis: Other fatigue[ICD10: R53.83] Diagnosis: Retention of urine, unspecified[ICD10: R33.9] Diagnosis: Dysuria[ICD10: R30.0] Diagnosis: Generalized abdominal pain[ICD10: R10.84] 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] Aziza ARANGO [employer] [facility] CPT-4: 71782 02/24/2016 ([id number]) OFFICE/OUTPATIENT VISIT EST Diagnosis: Chronic mucoid otitis media, right ear[ICD10: H65.31] Diagnosis: Allergic rhinitis, unspecified[ICD10: J30.9] Diagnosis: 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] Keily ARANGO [employer] [facility] CPT-4: 82666 12/16/2015 ([id number]) OFFICE/OUTPATIENT VISIT EST Diagnosis: Allergic rhinitis, unspecified[ICD10: J30.9] Diagnosis: Acute recurrent sinusitis, unspecified[ICD10: J01.91] Keily [facility]AN[facility] [employer] [facility] [facility] CPT-4: 23024 11/12/2015 ([id number]) OFFICE/OUTPATIENT VISIT EST Diagnosis: Other seasonal allergic rhinitis[ICD10: J30.2] Diagnosis: Nausea with vomiting, unspecified[ICD10: R11.2] Diagnosis: Epigastric pain[ICD10: R10.13] Aziza [facility]ANGO [facility] CPT-4: 95889 10/16/2015 OFFICE/OUTPATIENT VISIT EST Diagnosis: Encounter for follow-up examination after completed treatment for conditions other than malignant neoplasm[ICD10: Z09] Diagnosis: Generalized abdominal pain[ICD10: R10.84] Keily [facility]AN[facility] CPT-4: 72476 09/23/2015 ([id number]) OFFICE/OUTPATIENT VISIT EST Diagnosis: Otitis media, unspecified, right ear[ICD10: H66.91] Diagnosis: Constipation, unspecified[ICD10: K59.00] Diagnosis: Allergic rhinitis, unspecified[ICD10: J30.9] Aziza [facility] CPT-4: 25900 09/20/2015 OFFICE/OUTPATIENT VISIT EST Diagnosis: Allergic rhinitis, unspecified[ICD10: J30.9] Diagnosis: Unspecified perforation of tympanic membrane, right ear[ICD10: H72.91] Bibiana [facility]ANGO [facility] CPT-4: 51562 09/10/2015 OFFICE/OUTPATIENT VISIT NEW Diagnosis: Epilepsy, unspecified, intractable, without status epilepticus[ICD10: G40.919] Diagnosis: Gastric ulcer, unspecified as acute or chronic, without hemorrhage or perforation[ICD10: K25.9] Diagnosis: Severe intellectual disabilities[ICD10: F72] Keily ARANGO [facility] CPT-4: 36999 08/21/2015 Plan of Care Planned Activity Notes Codes Status Date Visit Diagnosis Plan: Sinusitis Discussion: due to dean h of illness and symptoms, cefdinir prescribed to take as directed. call office with any new or worsening symptoms. ICD-9 : 473.9 ICD-10 : J32.9 07/25/2019 Patient Education: cefdinir- [employer] Eder [id number] [email or web address]/getResource/[email or web address] Completed 07/25/2019 Visit Diagnosis Plan: Chronic pancreatitis Discussion: Continue zenpep and recheck CMP with amylase/lipase in 1 month ICD-9 : 577.1 ICD-10 : K86.1 06/12/2019 Appointment: Keily Arango WPtel: [address] [place] [address] Annual Well Visit 06/12/2019 Visit Diagnosis Plan: [...] WPtel: [phone] [facility] [address] Hospital Follow Up 05/08/2019 Visit Diagnosis Plan: [...] ICD-10 : J30.1 05/03/2019 Appointment: Fatou Onofre [address] [place] [address] ACUTE ILLNESS 05/03/2019 Patient Education: amoxicillin- [employer] Coupon 1999 [id number] [email or web address] Completed 05/03/2019 Visit Diagnosis Plan: Irritability and [...] : R45.4 11/25/2018 Appointment: Nataliia Hsieh [address] ACUTE ILLNESS 11/25/2018 Visit Diagnosis Plan: Acute suppurative otitis media without spontaneous rupture of ear drum, bilateral Discussion: cefdinir for 10 days. if wor sening symptoms later this week, call clinic. push fluids and tylenol/ibuprofen prn pain or fever. ICD-9 : 382.00 ICD-10 : H66.003 06/13/2018 Appointment: Fatou Onofre [address] [place] [address] ACUTE ILLNESS 06/13/2018 Visit Diagnosis Plan: Anuria [...] ICD-10 : R53.83 01/04/2018 Appointment: Fatou Onofre [address] [place] [address] ACUTE ILLNESS 01/04/2018 Patient Education: Patient Medication Summary Completed 01/04/2018 Visit Diagnosis Plan: Acute bronchitis, unspecified Di scussion: zithromax prescribed to take as directed. continue with allergy meds including flonase to help dry congestion. call office next week if new or worsening symptoms. ICD-9 : 466.0 ICD-10 : J20.9 12/31/2017 Appointment: Fatou Onofre [address] [place], [place] [address] ACUTE ILLNESS 12/31/2017 Patient Education: Patient Medication Summary Completed 12/31/2017 Visit Diagnosis Plan: Epilepsy, unspecif ied, intractable, without status epilepticus Discussion: Stable on current regimen ICD-9 : 345.91 ICD-10 : G40.919 12/14/2017 Visit Diagnosis Plan: Encounter for [facility] adult medical examination without abnormal findings Discussion: Had recent lab done Follow Up: 3 months ICD-9 : V70.9 ICD-10 : Z00.00 12/14/2017 Visit Diagnosis Plan: Allergic rhinitis due to pollen Discussion: Continue current meds Change night time protonix to pepcid for total histamine blockade ICD-9 : 477.9 ICD-10 : J30.1 12/14/2017 Appointment: Keily Arango WPtel: [address] [place] [address] CHECK UP 12/14/2017 Patient Education: Patient Medication [...] : J30.1 12/02/2017 Appointment: Keily Arango WPtel: [address] [place] [address] ACUTE ILLNESS 12/02/2017 Patient Education: Patient Medication Summary Completed 12/02/2017 Visit Diagnosis Plan: Other allergic rhinitis Discussi on: symptoms most likely caused from allergies. patient sent to hospital for decadron injection. instructed to restart patient's flonase at home. if new or worsening symptoms, call or rtc. ICD-9 : 477.8 ICD-10 : J30.89 10/12/2017 Appointment: Fatou Onofre [address] [place] [address] ACUTE ILLNESS 10/12/2017 Patient Education: Patient Medication [...] ICD-10 : G40.919 09/17/2017 Appointment: Fatou Onofre [address] [place] [address] ACUTE ILLNESS 09/17/2017 Patient Education: Patient Medication Summary Completed 09/17/2017 Visit Diagnosis Plan: Otitis media, unspecified, left ear Discussion: cefdinir prescribed daily for 10 days. instructed to administer tylenol/ibuprofen for pain or fever. if no improvement, or worsening symptoms, call or rtc. ICD-9 : 380.14 ICD-10 : H66.92 08/06/2017 Appointment: Fatou Onofre [address] [place] [address] ACUTE ILLNESS 08/06/2017 Patient Education: Patient Medication Summary Completed 08/06/2017 Patient Education: Patient Medication Summary Completed 08/02/2017 Patient Education: Patient Medication Summary Completed 04/21/2017 Care Plan: MRI BRAIN STEM W/O DYE LOINC : 87910-3 Pending 04/21/2017 Patient Education: Patient Medication Summary Completed 04/20/2017 Care Plan: MRI BRAIN STEM W/O DYE LOINC : 08128-1 Pending 04/20/2017 Visit Diagnosis Plan: Vertigo of central origin, unspe cified ear Discussion: Continue meclizine at 12.5mg po BID for 2 more weeks then go to 12.5mg daily for 2 weeks then 6.25mg daily for 2 weeks then stop Notify if any symptoms return with weaning process ICD-9 : 386.2 ICD-10 : H81.49 04/01/2017 Appointment: Keily Arango WPtel: [address] [place] [address] FOLLOW UP 04/01/2017 Patient Education: Patient Medication Summary Completed 04/01/2017 Patient Education: Patient Medication Summary Completed 03/09/2017 Care Plan: CT HEAD/BRAIN W/O DYE LOINC : 55699-1 Pending 03/09/2017 Visit Plan: It's difficult to [...] medications indicated. 03/01/2017 Appointment: Emely Hdz WPtel: [address] [place] [address] ACUTE ILLNESS 03/01/2017 Patient Education: Patient Medication Summary Completed 03/01/2017 Patient Education: Patient Medication Summary Completed 12/17/2016 Visit Diagnosis Plan: Allergic rhinitis due to pollen Discussion: Continue zyrtec/singulair ICD-9 : 477.9 ICD-10 : J30.1 11/10/2016 Visit Diagnosis Plan: Acute and subacute allergic otitis media (mucoid) (sanguinous) (serous), left ear Discussion: Zithromax ICD-9 : 381.05 ICD-10 : H65.112 11/10/2016 Appointment: Keily Arango WPtel: [address] [place] [address] ACUTE ILLNESS 11/10/2016 Patient Education: Patient Medication Summary Completed 11/10/2016 Patient Education: Patient Medication Summary Completed 09/07/2016 Care Plan: URINALYSIS AUTO W/[place] : 97854-7 Pending 09/07/2016 Visit Diagnosis Plan: Unspecified ovarian [...] WPtel: [address] [facility] [address] 08/12 confirmed-sp FOLLOW UP 08/13/2016 Patient Education: Patient Medication Summary Completed 08/13/2016 Patient Education: Patient Medication Summary Completed 05/19/2016 Care Plan: X-RAY EXAM OF FOOT left foot LOINC : 26 095-0 Pending 05/19/2016 Visit Plan: Discussed with Dr Arango CB C to be drawn Order sent to Will call with results 03/27/2016 [facility]ment[facility] [facility] 03/27/2016 Patient Education: Patient Medication Summary Completed 03/27/2016 Visit Plan: Go for dose of rocephin 1gm IM today and tomorrow then done Diflucan 150mg x1 today Discussed with mom via phone about urology fwup--she will talk with her and let us know 03/23/2016 App[facility]ment: [facility] [facility] 03/23 confirmed ~sl FOLLOW UP 03/23/2016 Patient Education: Patient Medication Summary Completed 03/23/2016 Visit Plan: Per Dr Arango, straight cat h for UA and culture today Ok to have a standing order for further UA needs at for straight cath Rocephin IM today and daily through Wednesday Mom has arranged a family friend that is an HEMATOLOGY ONCOLOGY CONSULTANT to give Wednesday and Sundays injections - [...] let us know 03/19/2016 Appointment: Aziza Magallanes [address] [place] [address] ACUTE ILLNESS 03/19/2016 Patient Education: Patient Medication Summary Completed 03/19/2016 Visit Plan: 1 more week of cefdinir 03/02/2016 Appointment: Keily Arango WPtel: [address] [place] [address] 03/02 confirmed~sl WORK IN 03/02/2016 Patient Education: [...] seen if worsening 02/24/2016 Appointment: Aziza Magallanes [address] [place] [address] ACUTE ILLNESS 02/24/2016 Patient Education: Patient Medication Summary Completed 02/24/2016 Care Plan: CHEST X-RAY 2VW FRONTAL&LATL LOINC : 28749-1 Pending 02/24/2016 Care Plan: X-RAY EXAM OF ABDOMEN LOINC : 85906-9 Pending 02/24/2016 Visit Plan: Repeat zithromax x1 week Cip rodex to right ear x1 week Add Pepcid q HS x2-4 weeks for total histamine blockade and for extra stomach protection while on zithromax 12/16/2015 Appointment: Keily Arango WPtel: [address] [place], [place] [id number] [place] 6/9 lm~sl 6/10 lm ~sl FOLLOW UP 12/16/2015 Patient Education: Patient Medication Summary Completed 12/16/2015 Patient Education: [facility] - Saving AutoInj - Sertraline HCL - 18-64 - Dynamic Portal ID Completed 12/16/2015 Visit Plan: Saline nasal flushes prn. Ty lenol/Motrin prn headache. Notify if persists/symptoms worsens Dexamethasone given 11/12/2015 Appointment: [facility] [facility] [place] 11/10 lm~sl 11/11 lm~sl 11/11 confirm-sp [...] for Belkys 10/16/2015 Appointment: Aziza [facility] [facility] [place] [facility] 10/16/2015 Patient Education: Patient Medication Summary Completed 10/16/2015 Appointment: Aziza [facility] [facility] [place] canceled, feeling better CANCELED 016 Visit Plan: No further abx needed Go [facility] and restart carafate Notify if abdominal pain worsens 09/23/2015 Appointment: [facility]ily [facility]el[facility] [address] [facility] 09/19 confirmed-sp FOLLOW UP 09/23/2015 Patient [...] past. Order sent to [facility] since [facility] does not have in [...] for now. 09/20/2015 Appointment: Aziza Magallanes [address] [facility] ACUTE ILLNESS 09/20/2015 Patient Education: Patient Medication Summary Completed 09/20/2015 Visit Plan: Depo Medrol 40mg/ Kenalog 40 mg IM today Resume Ciprodex otic gtts. bid to Rt. ear 09/10/2015 Appointment: Bibiaan Garg WPtel: [address] [facility] 09/08 confirmed-sp ACUTE ILLNESS 09/10/2015 Patient Education: Patient Medication Summary Completed 09/10/2015 Visit Plan: Increase Protonix to 40mg po BID for 1month Continue carafate at q AC dosing for full month then wean off Jevity for 2 more days then advance diet if able Continue current meds 08/21/2015 Appointment: Keily Arango WPtel: [address] [facility] [address] NEW PATIENT 08/21/2015 Patient Education: Patient [...] arranged a family friend that is an HEMATOLOGY ONCOLOGY CONSULTANT to give Wednesday and Sundays injections - [...] No further abx needed [facility] and restart [...] past. Order sent to [facility] since [facility] does not have in stock. Recheck in [...]
--- OUTSIDE RECORDS SUMMARY | 2019-11-10 19:40 | XMS REPORT | CCD ---
Author Author Belkys Arango D.O. 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 Name Role Phone Keily Arango D.O., PP Unavailable CCM Unavailable Summary Purpose Interface Exchange Insurance Providers Payer name Policy type / Coverage type Covered green party ID Effective Begin Date Effective End Date [employer] [facility] Medicaid [id number] U nknown Family History Family History data not found Social History Social History Element Codes Description Effective Dates Marital status Unknown Single 08/21/2015 Employment Unknown Currently unemployed Physically handicapped 08/21/[address]: 831238994 Has never smoked or chewed tobacco 08/21/[address]: 503359668 Never drinks alcohol 2015 Allergies, Adverse Reactions, [...] cefdinir 250 mg/5 mL oral suspension RxNorm: 370929 12 Milliliter(s) Oral QD though PEG tube 07/25/2019 08/03/2019 Active Zenpep 40,000 unit-126,000 unit-168,000 unit capsule,d elayed release RxNorm: 7875182 1 Capsule(s) Oral AC 07/10/2019 11/06/2019 Active famotidine 20 mg tablet RxNorm: 317431 TAKE 1 TABLET BY MOUTH EVERY NIGHT AT BEDTIME 07/09/2019 01/04/2020 Active sertraline 50 mg tablet RxNorm: 990479 TAKE 1 TABLET BY MOUTH EVERY NIGHT AT BEDTIME 07/09/2019 09/06/2019 Active Zenpep 40,000 unit-126,000 unit-168,000 unit capsule,d elayed release RxNorm: 2813301 1 Capsule(s) Oral AC 06/12/2019 07/09/2019 Inactive Zenpep 40,000 unit-126,000 unit-168,000 unit capsule,d elayed release RxNorm: 2409477 1 Capsule(s) Oral AC 05/24/2019 05/23/2019 Inactive Zenpep 40,000 unit-126,000 unit-168,000 unit capsule,d elayed release RxNorm: 2955084 1 Capsule(s) Oral AC 05/24/2019 06/11/2019 Inactive Ciprodex 0.3 %-0.1 % ear drops,suspension RxNorm: 848882 DROP(S) 4 DROP(S) OTIC BID 05/22/2019 06/18/2019 Inactive oxcarbazepine 300 mg/5 mL (60 mg/mL) oral suspension RxNorm: 152458 15 Milliliter(s) Oral two times a day 05/08/2019 11/03/2019 Active meclizine 12.5 mg tablet RxNorm: 660510 1 TABLET(S) PO TID NEEDE D 05/05/2019 08/02/2019 Active change in quantity Zithromax 200 mg/5 mL oral suspension RxNorm: 066236 12.5 Dilcia liter(s) Oral QD 05/04/2019 05/09/2019 Inactive amoxicillin 400 mg/5 mL oral suspension RxNorm: 303429 10 Milliliter(s) Oral two times a day 05/03/2019 05/13/2019 Inactive Singulair 10 mg tablet RxNorm: 897321 1 TABLET(S) PO QD 03/28/2019 Active Macrobid 100 mg capsule RxNorm: 371315 1 Capsule(s) PO BID 03/16/2003/22/2019 Inactive meclizine 12.5 mg tablet RxNorm: 983476 1 Tablet(s) PO TID as neede d 03/10/2019 05/04/2019 Inactive change in quantity Ciprodex 0.3 %-0.1 % ear drops,suspension RxNorm: 597594 DROP(S) 4 DROP(S) OTIC BID 03/08/2019 04/04/2019 Inactive oxcarbazepine 300 mg/5 mL (60 mg/mL) oral suspension RxNorm: 539501 15 Milliliter(s) PO BID 03/07/2019 05/07/2019 Inactive Macrobid 100 mg capsule RxNorm: 677100 1 Capsule(s) PO BID 02/21/2003/01/2019 Inactive Macrobid 100 mg capsule RxNorm: 949176 1 Capsule(s) PO BID 02/21/2002/19/2019 Inactive meclizine 12.5 mg tablet RxNorm: 591645 1 Tablet(s) PO TID as neede d 02/06/2019 03/07/2019 Inactive change in quantity Ciprodex 0.3 %-0.1 % ear drops,suspension RxNorm: 642940 DROP(S) 4 DROP(S) OTIC BID 01/30/2019 02/12/2019 Inactive diazepam 10 mg tablet RxNorm: 194176 1 Tablet(s) PO QHS as needed 0 01/27/2019 03/27/2019 Inactive sertraline 50 mg tablet RxNorm: 208375 1 Tablet(s) PO QHS 12/29/2018 06/26/2019 Inactive famotidine 20 mg tablet RxNorm: 500402 1 Tablet(s) PO QHS 12/29/2018 06/26/2019 Inactive Ciprodex 0.3 %-0.1 % ear drops,suspension RxNorm: 373404 DROP(S) 4 DROP(S) OTIC BID 12/14/2018 12/27/2018 Inactive Generlac 10 gram/15 mL oral solution RxNorm: 666184 15 Milliliter(s) PO TWO TO THREE TIMES DAILY 12/06/2018 06/03/2019 Inactive Protonix 40 mg tablet,delayed release RxNorm: 493807 1 Tablet(s) PO or per feeding tube BID 11/24/2018 05/22/2019 Inactive meclizine 12.5 mg tablet RxNorm: 710028 1 Tablet(s) PO TID as neede d 11/11/2018 02/06/2019 Inactive change in quantity Ciprodex 0.3 %-0.1 % ear drops,suspension RxNorm: 604530 DROP(S) 4 DROP(S) OTIC BID 11/08/2018 11/21/2018 Inactive diazepam 10 mg tablet RxNorm: 806172 1 Tablet(s) PO QHS as needed 0 10/21/2018 11/19/2018 Inactive Generlac 10 gram/15 mL oral solution RxNorm: 207395 Mil liliter(s) 15 MILLILITER(S) PO TWO TO THREE TIMES DAILY 10/07/2018 11/05/2018 Inacti ve Ciprodex 0.3 %-0.1 % ear drops,suspension RxNorm: 824274 DROP(S) DROP(S) 4 DROP(S) OTIC BID 08/26/2018 03/15/2019 Inactive meclizine 12.5 mg tablet RxNorm: 202509 1 TABLET(S) PO TID NEEDE D 07/25/2018 10/22/2018 Inactive change in quantity oxcarbazepine 300 mg/5 mL (60 mg/mL) oral suspension RxNorm: 258342 15 Milliliter(s) PO BID 07/08/2018 07/07/2018 Inactive oxcarbazepine 300 mg/5 mL (60 mg/mL) oral suspension RxNorm: 500923 15 Milliliter(s) PO BID 07/08/2018 01/03/2019 Inactive sertraline 50 mg tablet RxNorm: 642937 1 TABLET(S) PO QHS 07/06/2018 12/28/2018 Inactive Singulair 10 mg tablet RxNorm: 174956 1 TABLET(S) PO QD 06/24/2018 Inactive Ciprodex 0.3 %-0.1 % ear drops,suspension RxNorm: 766067 DROP(S) 4 DROP(S) OTIC BID 06/20/2018 06/19/2018 Inactive Ciprodex 0.3 %-0.1 % ear drops,suspension RxNorm: 199067 Drop(s) DROP(S) 4 DROP(S) OTIC BID 06/20/2018 07/03/2018 Inactive cefdinir 250 mg/5 mL oral suspension RxNorm: 859544 12 Milliliter(s) PO QD though PEG tube 06/13/2018 06/22/2018 Inactive famotidine 20 mg tablet RxNorm: 103295 1 Tablet(s) PO QHS 05/31/2018 11/26/2018 Inactive famotidine 40 mg/5 mL (8 mg/mL) oral suspension RxNorm: 3102 74 2.5 Milliliter(s) PO QHS 04/29/2018 06/12/2018 Inactive meclizine 12.5 mg tablet RxNorm: 165657 1 TABLET(S) PO TID NEEDE D 04/25/2018 07/23/2018 Inactive change in quantity Generlac 10 gram/15 mL oral solution RxNorm: 896034 Mil liliter(s) 15 MILLILITER(S) PO TWO TO THREE TIMES DAILY 04/04/2018 05/03/2018 Inacti ve Ciprodex 0.3 %-0.1 % ear drops,suspension RxNorm: 433202 Drop(s) 4 DROP(S) OTIC BID 04/04/2018 04/17/2018 Inactive diazepam 10 mg tablet RxNorm: 766551 1 Tablet(s) PO QHS as needed 1 05/03/2018 Inactive famotidine 40 mg/5 mL (8 mg/mL) oral suspension RxNorm: 3102 74 2.5 Milliliter(s) PO QHS 04/04/2018 04/28/2018 Inactive Generlac 10 gram/15 mL oral solution RxNorm: 003630 15 MILLILITER(S) PO TWO TO THREE TIMES DAILY 03/24/2018 04/03/2018 Inactive Singulair 10 mg tablet RxNorm: 337217 1 TABLET(S) PO QD 03/18/2018 Inactive Ciprodex 0.3 %-0.1 % ear drops,suspension RxNorm: 818931 Drop(s) 4 DROP(S) OTIC BID 03/08/2018 03/21/2018 Inactive Generlac 10 gram/15 mL oral solution RxNorm: 764643 15 Milliliter(s) PO two to three times daily 03/03/2018 03/23/2018 Inactive meclizine 12.5 mg tablet RxNorm: 855156 1 Tablet(s) PO TID as neede d 02/10/2018 04/10/2018 Inactive change in quantity meclizine 12.5 mg tablet RxNorm: 980810 1 Tablet(s) PO BID as neede d 02/07/2018 02/09/2018 Inactive change in quantity Ciprodex 0.3 %-0.1 % ear drops,suspension RxNorm: 083210 Drop(s) 4 DROP(S) OTIC BID 02/02/2018 03/08/2018 Inactive sertraline 50 mg tablet RxNorm: 268509 1 TABLET(S) PO QHS 01/25/2018 07/05/2018 Inactive Zithromax 200 mg/5 mL oral suspension RxNorm: 990080 12.5 Dilcia liter(s) PO QD 12/31/2017 01/04/2018 Inactive Pepcid 20 mg tablet RxNorm: 838917 TABLET(S) 1 TABLET(S) PO QHS 04/29/2018 Inactive famotidine 40 mg/5 mL (8 mg/mL) oral suspension RxNorm: 3102 74 2.5 Milliliter(s) PO QHS 12/28/2017 12/27/2017 Inactive famotidine 40 mg/5 mL (8 mg/mL) oral suspension RxNorm: 3102 74 2.5 Milliliter(s) PO QHS 12/28/2017 04/03/2018 Inactive Ciprodex 0.3 %-0.1 % ear drops,suspension RxNorm: 776018 Drop(s) 4 DROP(S) OTIC BID 12/27/2017 02/02/2018 Inactive meclizine 12.5 mg tablet RxNorm: 797524 1 Tablet(s) PO BID as neede d 12/23/2017 02/06/2018 Inactive change in quantity Protonix 40 mg tablet,delayed release RxNorm: 533657 1 Tablet(s) PO or per feeding tube BID 12/16/2017 07/13/2018 Inactive oxcarbazepine 300 mg/5 mL (60 mg/mL) oral suspension RxNorm: 668773 15 Milliliter(s) PO BID 12/16/2017 07/08/2018 Inactive meclizine 12.5 mg tablet RxNorm: 650544 1 Tablet(s) PO BID as neede d 12/15/2017 02/07/2018 Inactive change in quantity Pepcid 40 mg/5 mL (8 mg/mL) oral suspension RxNorm: 249997 5 Milliliter(s) PO QHS to replace nighttime pantoprazole dose 12/14/2017 12/27/2017 Inact марина meclizine 12.5 mg tablet RxNorm: 483409 1 Tablet(s) PO BID as neede d 12/13/2017 12/23/2017 Inactive diazepam 10 mg tablet RxNorm: 584372 1 Tablet(s) PO QHS as needed 0 12/02/2017 03/01/2018 Inactive prednisolone 15 mg/5 mL oral solution RxNorm: 423351 5 Milliliter(s) PO BID for 3 days then 5ml daily for 3 days then 2.5ml daily for 3 days 12/02/2017 12/13/2017 Inactive sertraline 50 mg tablet RxNorm: 265491 1 Tablet(s) PO QHS 11/04/2017 01/24/2018 Inactive Ciprodex 0.3 %-0.1 % ear drops,suspension RxNorm: 152094 Drop(s) 4 DROP(S) OTIC BID 10/18/2017 10/31/2017 Inactive Ciprodex 0.3 %-0.1 % ear drops,suspension RxNorm: 488863 Drop(s) 4 DROP(S) OTIC BID 10/18/2017 12/27/2017 Inactive Singulair 10 mg tablet RxNorm: 453018 1 Tablet(s) PO QD 09/30/2017 Inactive diazepam 5 mg/5 mL (1 mg/mL) oral solution RxNorm: 985962 2.5 Milliliter(s) PO QD give additional 5 mg dose if seizure occurs 09/17/2017 No Stop Date A ctive Bactrim DS 800 mg-160 mg tablet RxNorm: 461069 1 Tablet(s) PO BID 0 09/17/2017 09/23/2017 Inactive Ciprodex 0.3 %-0.1 % ear drops,suspension RxNorm: 949103 4 DROP (S) OTIC BID 09/13/2017 10/18/2017 Inactive cefdinir 250 mg/5 mL oral suspension RxNorm: 929727 12 Milliliter(s) PO QD though PEG tube 08/06/2017 08/15/2017 Inactive sertraline 50 mg tablet RxNorm: 143020 1 Tablet(s) PO QHS 08/02/2017 11/04/2017 Inactive Ciprodex 0.3 %-0.1 % ear drops,suspension RxNorm: 065040 4 DROP (S) OTIC BID 07/22/2017 08/11/2017 Inactive Singulair 10 mg tablet RxNorm: 619799 1 Tablet(s) PO QD 06/30/2017 Inactive diazepam 10 mg tablet RxNorm: 149215 TAKE 1 TABLET BY M OUTH EVERY NIGHT AT BEDTIME NEEDED 06/04/2017 07/03/2017 Inactive oxcarbazepine 300 mg/5 mL (60 mg/mL) oral suspension RxNorm: 784187 15 MILLILITER(S) PO BID 05/03/2017 12/16/2017 Inactive sertraline 50 mg tablet RxNorm: 256549 1 Tablet(s) PO QHS 05/03/2017 08/02/2017 Inactive Protonix 40 mg tablet,delayed release RxNorm: 657652 1 Tablet(s) PO or per feeding tube BID 04/26/2017 12/16/2017 Inactive Ciprodex 0.3 %-0.1 % ear drops,suspension RxNorm: 330662 4 DROP (S) OTIC BID 04/26/2017 05/23/2017 Inactive Generlac 10 gram/15 mL oral solution RxNorm: 139148 Mil liliter(s) TAKE 15 ML BY MOUTH TWO-THREE TIMES DAILY 04/08/2017 03/03/2018 Inactive Singulair 10 mg tablet RxNorm: 973504 1 Tablet(s) PO QD 03/03/2017 Inactive diazepam 10 mg tablet RxNorm: 255128 1 Tablet(s) PO QHS as needed 0 02/15/2017 06/04/2017 Inactive Singulair 10 mg tablet RxNorm: 232423 1 Tablet(s) PO QD 12/01/2016 Inactive Diflucan 150 mg tablet RxNorm: 117241 Tablet(s) Give 1 tab PO now and then repeat dose in 5 days 11/10/2016 03/31/2017 Inactive Zithromax 200 mg/5 mL oral suspension RxNorm: 325273 12.5 Dilcia liter(s) PO QD 11/10/2016 11/14/2016 Inactive Singulair 10 mg tablet RxNorm: 823973 TAKE 1 TABLET BY MOUTH ON CE DAILY 11/02/2016 12/01/2016 Inactive diazepam 10 mg tablet RxNorm: 806060 TAKE 1 TABLET BY M OUTH EVERY NIGHT AT BEDTIME NEEDED 10/21/2016 11/19/2016 Inactive sertraline 50 mg tablet RxNorm: 820112 1 Tablet(s) PO QHS 10/12/2016 01/09/2017 Inactive fluconazole 100 mg tablet RxNorm: 518366 1 Tablet(s) PO QD 09/23/19 17 09/24/2016 Inactive fluconazole 100 mg tablet RxNorm: 347524 1 Tablet(s) PO QD 09/23/19 17 09/21/2016 Inactive Bactrim DS 800 mg-160 mg tablet RxNorm: 499268 1 Tablet(s) PO BID 0 09/10/2016 09/09/2016 Inactive Bactrim DS 800 mg-160 mg tablet RxNorm: 091195 1 Tablet(s) PO BID 0 09/10/2016 09/16/2016 Inactive oxcarbazepine 300 mg/5 mL (60 mg/mL) oral suspension RxNorm: 316917 15 Milliliter(s) PO BID 09/07/2016 03/05/2017 Inactive sertraline 50 mg tablet RxNorm: 538166 1 Tablet(s) PO QHS 07/06/2016 10/03/2016 Inactive Pepcid 20 mg tablet RxNorm: 410963 Tablet(s) 1 TABLET(S) PO QHS 08/201603/08/2017 Inactive sertraline 50 mg tablet RxNorm: 324843 1 Tablet(s) PO QHS 06/08/2016 05/03/2017 Inactive Generlac 10 gram/15 mL oral solution RxNorm: 277618 Mil liliter(s) TAKE 15 ML BY MOUTH TWO-THREE TIMES DAILY 06/08/2016 09/08/2016 Inactive Pepcid 20 mg tablet RxNorm: 963772 1 TABLET(S) PO QHS 06/04/201607/2016 Inactive fluconazole 100 mg tablet RxNorm: 521646 1 Tablet(s) QD through PEG tube 05/13/2016 12/01/2017 Inactive Diflucan 150 mg tablet RxNorm: 474916 Give 1 tab PO now and then repeat dose in 5 days 03/19/2016 11/09/2016 Inactive ceftriaxone 1 gram solution for injection RxNorm: 4812523 1 Gram(s) IM QD Wednesday and Wednesday03/19/2016 11/09/2016 Inactive lidocaine 10 mg/mL (1 %) injection solution RxNorm: 7603455 Use as directed to reconstitute Rocephin when needed 03/19/2016 12/13/2017 Inactive Generlac 10 gram/15 mL oral solution RxNorm: 212185 JOE E 15 ML BY MOUTH TWO- THREE TIMES DAILY 03/19/2016 06/07/2016 Inactive oxcarbazepine 300 mg/5 mL oral suspension RxNorm: 615699 15 Milliliter(s) PO BID 03/13/2016 09/07/2016 Inactive Ciprodex 0.3 %-0.1 % ear drops,suspension RxNorm: 434477 4 DROP (S) OTIC BID 03/09/2016 03/15/2016 Inactive cefdinir 250 mg/5 mL oral suspension RxNorm: 142803 11. 75 Milliliter(s) PO QD though PEG tube 03/02/2016 03/08/2016 Inactive cefdinir 250 mg/5 mL oral suspension RxNorm: 832854 11. 75 Milliliter(s) PO QD though PEG tube 02/24/2016 03/01/2016 Inactive cefdinir 250 mg/5 mL oral suspension RxNorm: 323859 11. 75 Milliliter(s) PO QD though PEG tube 02/24/2016 02/23/2016 Inactive Ciprodex 0.3 %-0.1 % ear drops,suspension RxNorm: 972042 4 Drop (s) OTIC BID 02/24/2016 03/01/2016 Inactive Generlac 10 gram/15 mL oral solution RxNorm: 715808 JOE E 15 ML BY MOUTH TWICE DAILY 02/17/2016 03/18/2016 Inactive Generlac 10 gram/15 mL oral solution RxNorm: 753787 15 Millilit er(s) PO BID 01/23/2016 02/16/2016 Inactive Pepcid 20 mg tablet RxNorm: 308859 1 TABLET(S) PO QHS 01/13/201605/07 Inactive Ciprodex 0.3 %-0.1 % ear drops,suspension RxNorm: 028214 4 Drop (s) OTIC BID 12/23/2015 12/29/2015 Inactive sertraline 50 mg tablet RxNorm: 825555 1 Tablet(s) PO QHS 12/16/2015 06/07/2016 Inactive Zithromax 500 mg tablet RxNorm: 301562 1 Tablet(s) PO QD 12/16/2015 0 12/22/2015 Inactive Pepcid 20 mg tablet RxNorm: 103013 1 Tablet(s) PO QHS 12/16/201501/02 Inactive Zithromax 500 mg tablet RxNorm: 348269 1 Tablet(s) PO QD 11/12/2015 0 11/18/2015 Inactive Singulair 10 mg tablet RxNorm: 226837 1 Tablet(s) PO BID 10/16/2015 0 11/11/2015 Inactive diazepam 10 mg tablet RxNorm: 941952 1 Tablet(s) PO QHS 10/07/2015 Inactive diazepam 10 mg tablet RxNorm: 744055 1 Tablet(s) PO QHS 10/07/2015 Inactive fexofenadine 30 mg/5 mL oral suspension RxNorm: 398728 10 Milliliter(s) PO one to two times daily PRN allergies 09/20/2015 12/15/2015 Inactive ceftriaxone 1 gram solution for injection RxNorm: 5900385 1 Gram (s) IM QD 09/20/2015 09/21/2015 Inactive Ciprodex 0.3 %-0.1 % ear drops,suspension RxNorm: 145521 4 Drop (s) OTIC BID 09/20/2015 10/03/2015 Inactive Protonix 40 mg tablet,delayed release RxNorm: 252894 1 Tablet(s) PO or per feeding tube BID 08/21/2015 12/18/2015 Inactive Carafate 100 mg/mL oral suspension RxNorm: 490148 10 Mi lliliter(s) Miscellaneous per feeding tube AC & HS 08/21/2015 09/19/2015 Inactive Zyrtec 10 mg tablet RxNorm: 5963677 1 Tablet(s) PO QD No Start Date Active diazepam 20 mg rectal kit RxNorm: 647608 RTL as needed No Start Date Active Lortab Elixir 10 mg-300 mg/15 mL oral solution RxNorm: 75744 45 8 PO Q6-8H as needed No Start Date Active ondansetron HCl 4 mg/5 mL oral solution RxNorm: 502423 10 Milliliter(s) PO as needed and through tube No Start Date Active sertraline 50 mg tablet RxNorm: 905797 1 Tablet(s) PO QD No Start D ate 12/15/2015 Inactive Brittany 180 mg tablet RxNorm: 681397 1 Tablet(s) PO QD No Start Date 06/12/2018 Inactive Generlac 10 gram/15 mL oral solution RxNorm: 312562 15 Millilit er(s) PO BID No Start Date 01/22/2016 Inactive oxcarbazepine 300 mg/5 mL oral suspension RxNorm: 986301 13.5 Milliliter(s) PO QAM and 15ml in the evening No Start Date 12/15/2015 Inactive Singulair 10 mg tablet RxNorm: 687156 1 Tablet(s) PO QD No Start Da te 11/30/2016 Inactive meclizine 12.5 mg tablet RxNorm: 906937 1 Tablet(s) PO TID as needed for dizziness No Start Date 09/13/2017 Inactive meclizine 12.5 mg tablet RxNorm: 143303 1 Tablet(s) PO BID No Start Date 12/12/2017 Inactive fluconazole 100 mg tablet RxNorm: 081912 1 Tablet(s) QD through PEG tube No Start Date 05/12/2016 Inactive Flomax 0.4 mg capsule RxNorm: 714491 1 Capsule(s) PO QD No Start Da te 06/12/2018 Inactive diazepam 10 mg tablet RxNorm: 149638 1 Tablet(s) PO QHS as needed N o Start Date 02/14/2017 Inactive Generlac 10 gram/15 mL oral solution RxNorm: 049809 15 Milliliter(s) PO two to three times daily No Start Date 03/02/2018 Inactive oxcarbazepine 300 mg/5 mL oral suspension RxNorm: 139202 15 Milliliter(s) PO BID No Start Date 12/15/2017 Inactive Medication Administered No Medication Administered data Immunizations Vaccine Codes Date Status Influenza CVX: 141 04/21/2019 Results No Results data Procedures Procedure Codes Date DEXAMETHASONE SODIUM PHOS CPT-4: J1100 05/03/2019 THER/PROPH/DIAG INJ SC/IM CPT-4: 62260 05/03/2019 CEFTRIAXONE SODIUM INJECTION CPT-4: J0696 03/19/2016 THER/PROPH/DIAG INJ SC/IM CPT-4: 79859 03/19/2016 DEXAMETHASONE SODIUM PHOS CPT-4: J1100 11/12/2015 THER/PROPH/DIAG INJ SC/IM CPT-4: 87150 11/12/2015 CEFTRIAXONE SODIUM INJECTION CPT-4: J0696 09/20/2015 THER/PROPH/DIAG INJ SC/IM CPT-4: 16022 09/20/2015 THER/PROPH/DIAG INJ SC/IM CPT-4: 42449 09/10/2015 METHYLPREDNISOLONE 40 MG INJ CPT-4: J1030 09/10/2015 TRIAMCINOLONE ACET INJ NOS CPT-4: J3301 09/10/2015 Vital Signs Date Vital 07/25/2019 Blood Pressure 1: 116/80 Code: 8480-6 BMI: 23.2 Code: 89687-6 Heart Rate 1: 81 bpm Height: 4'5" Respiratory Rate: 16 bpm SpO2: 100% Tempera ture: 36.8 (C) / 98.2 (F) Weight: 92 lbs 06/12/2019 Blood Pressure 1: 112/74 Code: 8480-6 BMI: 23.2 Code: 02324-9 Heart Rate 1: 102 bpm Height: 4'5" [...] 1: 114/70 Code: 8480-6 BMI: 23.1 Code: 77303-8 Heart Rate 1: 80 bpm Height: 4'6" [...] visit Encounters Encounter Performer Location Codes Date ([id number]) OFFICE/OUTPATIENT VISIT EST Diagnosis: Sinusitis[ICD10: J32.9] Fatou Bobby [employer] CPT-4: 28164 07/25/2019 ([id number]) PREV VISIT EST AGE 18-39 Diagnosis: Encounter for general adult medical examination with abnormal findings[ICD10: Z00.01] Diagnosis: Chronic pancreatitis[ICD10: K86.1] Diagnosis: Cerebral palsy, unspecified[ICD10: G80.9] Keily Bobby [employer] CPT-4: 50423 06/12/2019 ([id number]) OFFICE/OUTPATIENT VISIT EST Diagnosis: Pneumonia, organism unspecified[ICD10: J18.9] Diagnosis: Breast mass, right[ICD10: N63.10] Keily Bobby [employer] CPT-4: 40158 05/08/2019 ([id number]) OFFICE/OUTPATIENT VISIT EST Diagnosis: Allergic rhinitis due to pollen[ICD10: J30.1] Diagnosis: Otitis media, unspecified, right ear[ICD10: H66.91] Fatou LINARES SAlicia [employer]ISHAER [employer] CPT-4: 20840 05/03/2019 ([id number]) OFFICE/OUTPATIENT VISIT EST Diagnosis: Irritability and anger[ICD10: R45.4] Nataliia MCHUGH [employer] CPT-4: 62023 11/25/2018 ([id number]) OFFICE/OUTPATIENT VISIT EST Diagnosis: Acute suppurative otitis media without spontaneous rupture of ear drum, bilateral[ICD10: H66.003] Fatou ARANGO DO [facility] CPT-4: 74044 06/13/2018 ([id number]) OFFICE/OUTPATIENT VISIT EST Diagnosis: Other fatigue[ICD10: R53.83] Diagnosis: Anuria and oliguria[ICD10: R34] Diagnosis: Acute gastritis without bleeding[ICD10: K29.00] Fatou ARANGO DO [facility] CPT-4: 54380 01/04/2018 ([id number]) OFFICE/OUTPATIENT VISIT EST Diagnosis: Acute bronchitis, unspecified[ICD10: J20.9] Fatou ARANGO DO [facility] CPT-4: 24332 12/31/2017 ([id number]) PREV VISIT EST AGE 18-39 Diagnosis: Encounter for general adult medical examination without abnormal findings[ICD10: Z00.00] Diagnosis: Severe intellectual disabilities[ICD10: F72] Diagnosis: Allergic rhinitis due to pollen[ICD10: J30.1] Diagnosis: Epilepsy, unspecified, intractable, without status epilepticus[ICD10: G40.919] Diagnosis: Gastro-esophageal reflux disease without esophagitis[ICD10: K21.9] Keily ARANGO [employer] [facility] CPT-4: 59521 12/14/2017 ([id number]) OFFICE/OUTPATIENT VISIT EST Diagnosis: Allergic rhinitis due to pollen[ICD10: J30.1] Diagnosis: Epilepsy, unspecified, intractable, without status epilepticus[ICD10: G40.919] Keily ARANGO [employer] [facility] CPT-4: 74247 12/02/2017 ([id number]) OFFICE/OUTPATIENT VISIT EST Diagnosis: Other allergic rhinitis[ICD10: J30.89] Fatou ARANGO [employer] [facility] CPT-4: 33422 10/12/2017 OFFICE/OUTPATIENT VISIT EST Diagnosis: Acute suppurative otitis media without spontaneous rupture of ear drum, recurrent, left ear[ICD10: H66.005] Diagnosis: Epilepsy, unspecified, intractable, without status epilepticus[ICD10: G40.919] Diagnosis: Hesitancy of micturition[ICD10: R39.11] Fatou Bobby [facility] CPT-4: 21468 09/17/2017 OFFICE/OUTPATIENT VISIT EST Diagnosis: Otitis media, unspecified, left ear[ICD10: H66.92] Fatou Bobby [facility] CPT-4: 43070 08/06/2017 ([id number]) OFFICE/OUTPATIENT VISIT EST Diagnosis: Vertigo of central origin, 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.49] Diagnosis: Dizziness and giddiness[ICD10: R42] Keily NARANJO [facility] CPT-4: 64052 04/01/2017 OFFICE/OUTPATIENT VISIT EST Diagnosis: Vomiting, unspecified[ICD10: R11.10] Diagnosis: 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)[ICD10: K56.5] Diagnosis: Personal history of urinary calculi[ICD10: Z87.442] [facility] 45336 03/01/2017 ([id number]) OFFICE/OUTPATIENT VISIT EST Diagnosis: Allergic rhinitis due to pollen[ICD10: J30.1] Diagnosis: Acute and subacute allergic otitis media (mucoid) (sanguinous) (serous), left ear[ICD10: H65.112] [facility] 97872 11/10/2016 ([id number]) OFFICE/OUTPATIENT VISIT EST Diagnosis: 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] Diagnosis: Unspecified ovarian cyst, right side[ICD10: N83.201] Diagnosis: Cyst of kidney, 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] Keily CERON Alicia [facility] CPT-4: 41448 08/13/2016 ([id number]) OFFICE/OUTPATIENT VISIT EST Diagnosis: Rash and other nonspecific skin eruption[ICD10: R21] Aziza LINARES [facility] CPT-4: 06560 03/27/2016 ([id number]) OFFICE/OUTPATIENT VISIT EST Diagnosis: Urinary tract infection, site not specified[ICD10: N39.0] Keily ARANGO [employer] [facility] CPT-4: 01889 03/23/2016 ([id number]) OFFICE/OUTPATIENT VISIT EST Diagnosis: Retention of urine, unspecified[ICD10: R33.9] Diagnosis: Dysuria[ICD10: R30.0] Diagnosis: Constipation, unspecified[ICD10: K59.00] Aziza Magallanes SIOMARA ELIZABETHOSMANY ARANGO [facility] CPT-4: 51599 03/19/2016 ([id number]) OFFICE/OUTPATIENT VISIT EST Diagnosis: Acute sinusitis, unspecified[ICD10: J01.90] Keily ARANGO [facility] CPT-4: 08285 03/02/2016 OFFICE/OUTPATIENT VISIT EST Diagnosis: Other fatigue[ICD10: R53.83] Diagnosis: Retention of urine, unspecified[ICD10: R33.9] Diagnosis: Dysuria[ICD10: R30.0] Diagnosis: Generalized abdominal pain[ICD10: R10.84] 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] Aziza ARANGO [facility] CPT-4: 96468 02/24/2016 ([id number]) OFFICE/OUTPATIENT VISIT EST Diagnosis: Chronic mucoid otitis media, right ear[ICD10: H65.31] Diagnosis: Allergic rhinitis, unspecified[ICD10: J30.9] Diagnosis: 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] Keily ARANGO [facility] CPT-4: 05589 12/16/2015 ([id number]) OFFICE/OUTPATIENT VISIT EST Diagnosis: Allergic rhinitis, unspecified[ICD10: J30.9] Diagnosis: Acute recurrent sinusitis, unspecified[ICD10: J01.91] Keily ARANGO [facility] CPT-4: 38154 11/12/2015 ([id number]) OFFICE/OUTPATIENT VISIT EST Diagnosis: Other seasonal allergic rhinitis[ICD10: J30.2] Diagnosis: Nausea with vomiting, unspecified[ICD10: R11.2] Diagnosis: Epigastric pain[ICD10: R10.13] Aziza [facility] CPT-4: 06036 10/16/2015 OFFICE/OUTPATIENT VISIT EST Diagnosis: Encounter for follow-up examination after completed treatment for conditions other than malignant neoplasm[ICD10: Z09] Diagnosis: Generalized abdominal pain[ICD10: R10.84] Keily [facility] CPT-4: 17534 09/23/2015 ([id number]) OFFICE/OUTPATIENT VISIT EST Diagnosis: Otitis media, unspecified, right ear[ICD10: H66.91] Diagnosis: Constipation, unspecified[ICD10: K59.00] Diagnosis: Allergic rhinitis, unspecified[ICD10: J30.9] Aziza [facility] CPT-4: 61612 09/20/2015 OFFICE/OUTPATIENT VISIT EST Diagnosis: Allergic rhinitis, unspecified[ICD10: J30.9] Diagnosis: Unspecified perforation of tympanic membrane, right ear[ICD10: H72.91] Bibiana [facility] CPT-4: 34815 09/10/2015 OFFICE/OUTPATIENT VISIT NEW Diagnosis: Epilepsy, unspecified, intractable, without status epilepticus[ICD10: G40.919] Diagnosis: Gastric ulcer, unspecified as acute or chronic, without hemorrhage or perforation[ICD10: K25.9] Diagnosis: Severe intellectual disabilities[ICD10: F72] Keily [facility] CPT-4: 52189 08/21/2015 Plan of Care Planned Activity Notes Codes Status Date Visit Diagnosis Plan: Sinusitis Discussion: due to dean h of illness and symptoms, cefdinir prescribed to take as directed. call office with any new or worsening symptoms. ICD-9 : 473.9 ICD-10 : J32.9 07/25/2019 Patient Education: cefdinir- [employer] Eder [id number] [email or web address] Completed 07/25/2019 Visit Diagnosis Plan: Chronic pancreatitis Discussion: Continue zenpep and recheck CMP with amylase/lipase in 1 month ICD-9 : 577.1 ICD-10 : K86.1 06/12/2019 Appointment: Keily Arango WPtel: [address] [place] [address] Annual Well Visit 06/12/2019 Visit Diagnosis Plan: [...] J18.9 05/08/2019 Appointment: Keily Arango WPtel: [phone] [facility] Hospital Follow Up 05/08/2019 Visit [...] : 477.9 ICD-10 : J30.1 05/03/2019 Appointment: aFtou Onofre [address] [place] [address] ACUTE ILLNESS 05/03/2019 Patient Education: amoxicillin- [employer] Coupon [id number] [email or web address] Completed 05/03/2019 Visit Diagnosis Plan: Irritability and [...] R45.4 11/25/2018 Appointment: Nataliia Hsieh [address] ACUTE ILLNESS 11/25/2018 Visit Diagnosis Plan: Acute suppurative otitis media without spontaneous rupture of ear drum, bilateral Discussion: cefdinir for 10 days. if wor sening symptoms later this week, call clinic. push fluids and tylenol/ibuprofen prn pain or fever. ICD-9 : 382.00 ICD-10 : H66.003 06/13/2018 Appointment: Fatou Onofre [address] [place] [address] ACUTE ILLNESS 06/13/2018 Visit Diagnosis Plan: Anuria [...] ICD-10 : R53.83 01/04/2018 Appointment: Fatou Onofre [address] [place] [address] ACUTE ILLNESS 01/04/2018 Patient Education: Patient Medication Summary Completed 01/04/2018 Visit Diagnosis Plan: Acute bronchitis, unspecified Di scussion: zithromax prescribed to take as directed. continue with allergy meds including flonase to help dry congestion. call office next week if new or worsening symptoms. ICD-9 : 466.0 ICD-10 : J20.9 12/31/2017 Appointment: Fatou Onofre [address] [place], [place] [address] ACUTE ILLNESS 12/31/2017 Patient Education: Patient Medication Summary Completed 12/31/2017 Visit Diagnosis Plan: Epilepsy, unspecif ied, intractable, without status epilepticus Discussion: Stable on current regimen ICD-9 : 345.91 ICD-10 : G40.919 12/14/2017 Visit Diagnosis Plan: Encounter for [facility] adult medical examination without abnormal findings Discussion: Had recent lab done Follow Up: 3 months ICD-9 : V70.9 ICD-10 : Z00.00 12/14/2017 Visit Diagnosis Plan: Allergic rhinitis due to pollen Discussion: Continue current meds Change night time protonix to pepcid for total histamine blockade ICD-9 : 477.9 ICD-10 : J30.1 12/14/2017 Appointment: Keily Arango WPtel: [address] [place] [address] CHECK UP 12/14/2017 Patient Education: Patient Medication [...] : J30.1 12/02/2017 Appointment: Keily Arango WPtel: [address] [place] [address] ACUTE ILLNESS 12/02/2017 Patient Education: Patient Medication Summary Completed 12/02/2017 Visit Diagnosis Plan: Other allergic rhinitis Discussi on: symptoms most likely caused from allergies. patient sent to hospital for decadron injection. instructed to restart patient's flonase at home. if new or worsening symptoms, call or rtc. ICD-9 : 477.8 ICD-10 : J30.89 10/12/2017 Appointment: Fatou Onofre [address] [place] [address] ACUTE ILLNESS 10/12/2017 Patient Education: Patient Medication [...] ICD-10 : G40.919 09/17/2017 Appointment: Fatou Onofre [address] [place] [address] ACUTE ILLNESS 09/17/2017 Patient Education: Patient Medication Summary Completed 09/17/2017 Visit Diagnosis Plan: Otitis media, unspecified, left ear Discussion: cefdinir prescribed daily for 10 days. instructed to administer tylenol/ibuprofen for pain or fever. if no improvement, or worsening symptoms, call or rtc. ICD-9 : 380.14 ICD-10 : H66.92 08/06/2017 Appointment: Fatou Onofre [address] [place] [address] ACUTE ILLNESS 08/06/2017 Patient Education: Patient Medication Summary Completed 08/06/2017 Patient Education: Patient Medication Summary Completed 08/02/2017 Patient Education: Patient Medication Summary Completed 04/21/2017 Care Plan: MRI BRAIN STEM W/O DYE LOINC : 49550-8 Pending 04/21/2017 Patient Education: Patient Medication Summary Completed 04/20/2017 Care Plan: MRI BRAIN STEM W/O DYE LOINC : 88561-9 Pending 04/20/2017 Visit Diagnosis Plan: Vertigo of central origin, unspe cified ear Discussion: Continue meclizine at 12.5mg po BID for 2 more weeks then go to 12.5mg daily for 2 weeks then 6.25mg daily for 2 weeks then stop Notify if any symptoms return with weaning process ICD-9 : 386.2 ICD-10 : H81.49 04/01/2017 Appointment: Keily Arango WPtel: [address] [place] [address] FOLLOW UP 04/01/2017 Patient Education: Patient Medication Summary Completed 04/01/2017 Patient Education: Patient Medication Summary Completed 03/09/2017 Care Plan: CT HEAD/BRAIN W/O DYE LOINC : 73856-7 Pending 03/09/2017 Visit Plan: It's difficult to [...] medications indicated. 03/01/2017 Appointment: Emely Hdz WPtel: [address] [place] [address] ACUTE ILLNESS 03/01/2017 Patient Education: Patient Medication Summary Completed 03/01/2017 Patient Education: Patient Medication Summary Completed 12/17/2016 Visit Diagnosis Plan: Allergic rhinitis due to pollen Discussion: Continue zyrtec/singulair ICD-9 : 477.9 ICD-10 : J30.1 11/10/2016 Visit Diagnosis Plan: Acute and subacute allergic otitis media (mucoid) (sanguinous) (serous), left ear Discussion: Zithromax ICD-9 : 381.05 ICD-10 : H65.112 11/10/2016 Appointment: Keily Arango WPtel: [address] [place] [address] ACUTE ILLNESS 11/10/2016 Patient Education: Patient Medication Summary Completed 11/10/2016 Patient Education: Patient Medication Summary Completed 09/07/2016 Care Plan: URINALYSIS AUTO W/[place] : 83100-1 Pending 09/07/2016 Visit Diagnosis Plan: Unspecified ovarian [...] : 592.0 ICD-10 : N20.0 08/13/2016 Appointment: Keliy Arango WPtel: [phone] [facility] 08/12 confirmed-sp FOLLOW UP 08/13/2016 Patient Education: Patient Medication Summary Completed 08/13/2016 Patient Education: Patient Medication Summary Completed 05/19/2016 Care Plan: X-RAY EXAM OF FOOT left foot LOINC : 26 095-0 Pending 05/19/2016 Visit Plan: Discussed with Dr Arango CB C to be drawn Order sent to Will call with results 03/27/2016 Appointment: [facility] [facility] 03/27/2016 Patient Education: Patient Medication Summary Completed 03/27/2016 Visit Plan: Go for dose of rocephin 1gm IM today and tomorrow then done Diflucan 150mg x1 today Discussed with mom via phone about urology fwup--she will talk with her and let us know 03/23/2016 Appointment: [facility]el[phone] [facility] 03/23 confirmed ~sl FOLLOW UP 03/23/2016 Patient Education: Patient Medication Summary Completed 03/23/2016 Visit Plan: Per Dr Arango, straight cat h for UA and culture today Ok to have a standing order for further UA needs at for straight cath Rocephin IM today and daily through Wednesday Mom has arranged a family friend that is an ATTENUATOR to give Wednesday and Sundays injections - [...] let us know 03/19/2016 Appointment: Aziza Magallanes [address] [place] [address] ACUTE ILLNESS 03/19/2016 Patient Education: Patient Medication Summary Completed 03/19/2016 Visit Plan: 1 more week of cefdinir 03/02/2016 Appointment: Keily Arango WPtel: [address] [place] [address] 03/02 confirmed~sl WORK IN 03/02/2016 Patient Education: [...] seen if worsening 02/24/2016 Appointment: Aziza Magallanes [address] [place] [address] ACUTE ILLNESS 02/24/2016 Patient Education: Patient Medication Summary Completed 02/24/2016 Care Plan: CHEST X-RAY 2VW FRONTAL&LATL LOINC : 17625-8 Pending 02/24/2016 Care Plan: X-RAY EXAM OF ABDOMEN LOINC : 84054-9 Pending 02/24/2016 Visit Plan: Repeat zithromax x1 week Cip rodex to right ear x1 week Add Pepcid q HS x2-4 weeks for total histamine blockade and for extra stomach protection while on zithromax 12/16/2015 Appointment: Keily Arango WPtel: [address] [place], [place] [id number] [place] 6/9 lm~sl 6/10 lm ~sl FOLLOW UP 12/16/2015 Patient Education: Patient Medication Summary Completed 12/16/2015 Patient Education: [facility] - Saving AutoInj - Sertraline HCL - 18-64 - Dynamic Portal ID Completed 12/16/2015 Visit Plan: Saline nasal flushes prn. Ty lenol/Motrin prn headache. Notify if persists/symptoms worsens Dexamethasone given 11/12/2015 Appointment: [facility]ily [facility]el[facility] [phone] [facility] [place] 11/10 lm~sl 11/11 lm~sl 11/11 confirm-sp [...] for Belkys 10/16/2015 Appointment: [facility] [facility] [facility] 10/16/2015 Patient Education: Patient Medication Summary Completed 10/16/2015 Appointment: Az[facility] [facility] [place] canceled, feeling better CANCELED 016 Visit Plan: No further abx needed [facility] restart carafate Notify if abdominal pain worsens 09/23/2015 Appointment: [facility]ily [facility]el[phone] [facility] 09/19 confirmed-sp FOLLOW UP 09/23/2015 Patient Education: [...] for now. 09/20/2015 Appointment: Aziza Magallanes [address] [facility] ACUTE ILLNESS 09/20/2015 Patient Education: Patient Medication Summary Completed 09/20/2015 Visit Plan: Depo Medrol 40mg/ Kenalog 40 mg IM today Resume Ciprodex otic gtts. bid to Rt. ear 09/10/2015 Appointment: Bibiana Garg WPtel: [phone] [facility] 09/08 confirmed-sp ACUTE ILLNESS 09/10/2015 Patient Education: Patient Medication Summary Completed 09/10/2015 Visit Plan: Increase Protonix to 40mg po BID for 1month Continue carafate at q AC dosing for full month then wean off Jevity for 2 more days then advance diet if able Continue current meds 08/21/2015 Appointment: Keily Arango WPtel: [phone] [facility] NEW PATIENT 08/21/2015 Patient Education: Patient [...] arranged a family friend that is an ATTENUATOR to give Wednesday and Sundays injections - [...] No further abx needed Go back to [facility] for next 3 days and restart carafate [...]
--- OUTSIDE RECORDS SUMMARY | 2019-11-10 19:41 | XMS REPORT | CCD ---
Author Author Belkys Arango D.O. Organization [facility] Address [address] [place] [address] Phone Care Team Providers Care Supervisor Malted Milk Name Role Phone Keily Arango D.O., PP Unavailable CCM Unavailable Summary Purpose Interface Exchange Insurance Providers Payer name Policy type / Coverage type Covered democrat ID Effective Begin Date Effective End Date [employer] [facility] Medicaid [id number] U nknown Family History Family History data not found Social History Social History Element Codes Description Effective Dates Marital status Unknown Single 08/21/2015 Employment Unknown Currently unemployed Physically handicapped 08/21/[address]: 348035124 Has never smoked or chewed tobacco 08/21/[address]: 773262657 Never drinks alcohol 2015 Allergies, Adverse Reactions, Alerts Substance Reaction Codes Entered Date Inactivated Date Status * NO KNOWN FOOD ALLERGIES Unknown 08/21/2015 No Inactiv e Date Active * NO KNOWN DRUG ALLERGIES Unknown 08/21/2015 No Inactiv e Date Active _ Unknown 08/21/2015 No Inactive Date Active Problems Condition Codes Effective Dates Condition Status Cerebral palsy, unspecified ICD-9: 343.9 ICD-10: G80.9 [...] unit-126,000 unit-168,000 unit capsule,d elayed release RxNorm: 6506957 1 Capsule(s) Oral AC 07/10/2019 11/06/2019 Active famotidine 20 mg tablet RxNorm: 309195 TAKE 1 TABLET BY MOUTH EVERY NIGHT AT BEDTIME 07/09/2019 01/04/2020 Active sertraline 50 mg tablet RxNorm: 757229 TAKE 1 TABLET BY MOUTH EVERY NIGHT AT BEDTIME 07/09/2019 09/06/2019 Active Zenpep 40,000 unit-126,000 unit-168,000 unit capsule,d elayed release RxNorm: 0512712 1 Capsule(s) Oral AC 06/12/2019 07/09/2019 Inactive Zenpep 40,000 unit-126,000 unit-168,000 unit capsule,d elayed release RxNorm: 0391366 1 Capsule(s) Oral AC 05/24/2019 05/23/2019 Inactive Zenpep 40,000 unit-126,000 unit-168,000 unit capsule,d elayed release RxNorm: 7184394 1 Capsule(s) Oral AC 05/24/2019 06/11/2019 Inactive Ciprodex 0.3 %-0.1 % ear drops,suspension RxNorm: 680388 DROP(S) 4 DROP(S) OTIC BID 05/22/2019 06/18/2019 Inactive oxcarbazepine 300 mg/5 mL (60 mg/mL) oral suspension RxNorm: 924092 15 Milliliter(s) Oral two times a day 05/08/2019 11/03/2019 Active meclizine 12.5 mg tablet RxNorm: 170633 1 TABLET(S) PO TID NEEDE D 05/05/2019 08/02/2019 Active change in quantity Zithromax 200 mg/5 mL oral suspension RxNorm: 123501 12.5 Dilcia liter(s) Oral QD 05/04/2019 05/09/2019 Inactive amoxicillin 400 mg/5 mL oral suspension RxNorm: 253016 10 Milliliter(s) Oral two times a day 05/03/2019 05/13/2019 Inactive Singulair 10 mg tablet RxNorm: 824113 1 TABLET(S) PO QD 03/28/2019 Active Macrobid 100 mg capsule RxNorm: 607646 1 Capsule(s) PO BID 03/16/2003/22/2019 Inactive meclizine 12.5 mg tablet RxNorm: 700452 1 Tablet(s) PO TID as neede d 03/10/2019 05/04/2019 Inactive change in quantity Ciprodex 0.3 %-0.1 % ear drops,suspension RxNorm: 303659 DROP(S) 4 DROP(S) OTIC BID 03/08/2019 04/04/2019 Inactive oxcarbazepine 300 mg/5 mL (60 mg/mL) oral suspension RxNorm: 024738 15 Milliliter(s) PO BID 03/07/2019 05/07/2019 Inactive Macrobid 100 mg capsule RxNorm: 648250 1 Capsule(s) PO BID 02/21/2003/01/2019 Inactive Macrobid 100 mg capsule RxNorm: 211093 1 Capsule(s) PO BID 02/21/2002/19/2019 Inactive meclizine 12.5 mg tablet RxNorm: 360990 1 Tablet(s) PO TID as neede d 02/06/2019 03/07/2019 Inactive change in quantity Ciprodex 0.3 %-0.1 % ear drops,suspension RxNorm: 243622 DROP(S) 4 DROP(S) OTIC BID 01/30/2019 02/12/2019 Inactive diazepam 10 mg tablet RxNorm: 058814 1 Tablet(s) PO QHS as needed 0 01/27/2019 03/27/2019 Inactive sertraline 50 mg tablet RxNorm: 180370 1 Tablet(s) PO QHS 12/29/2018 06/26/2019 Inactive famotidine 20 mg tablet RxNorm: 129574 1 Tablet(s) PO QHS 12/29/2018 06/26/2019 Inactive Ciprodex 0.3 %-0.1 % ear drops,suspension RxNorm: 658038 DROP(S) 4 DROP(S) OTIC BID 12/14/2018 12/27/2018 Inactive Generlac 10 gram/15 mL oral solution RxNorm: 292531 15 Milliliter(s) PO TWO TO THREE TIMES DAILY 12/06/2018 06/03/2019 Inactive Protonix 40 mg tablet,delayed release RxNorm: 653484 1 Tablet(s) PO or per feeding tube BID 11/24/2018 05/22/2019 Inactive meclizine 12.5 mg tablet RxNorm: 494610 1 Tablet(s) PO TID as neede d 11/11/2018 02/06/2019 Inactive change in quantity Ciprodex 0.3 %-0.1 % ear drops,suspension RxNorm: 043075 DROP(S) 4 DROP(S) OTIC BID 11/08/2018 11/21/2018 Inactive diazepam 10 mg tablet RxNorm: 306446 1 Tablet(s) PO QHS as needed 0 10/21/2018 11/19/2018 Inactive Generlac 10 gram/15 mL oral solution RxNorm: 084562 Mil liliter(s) 15 MILLILITER(S) PO TWO TO THREE TIMES DAILY 10/07/2018 11/05/2018 Inacti ve Ciprodex 0.3 %-0.1 % ear drops,suspension RxNorm: 709378 DROP(S) DROP(S) 4 DROP(S) OTIC BID 08/26/2018 03/15/2019 Inactive meclizine 12.5 mg tablet RxNorm: 087546 1 TABLET(S) PO TID NEEDE D 07/25/2018 10/22/2018 Inactive change in quantity oxcarbazepine 300 mg/5 mL (60 mg/mL) oral suspension RxNorm: 376100 15 Milliliter(s) PO BID 07/08/2018 07/07/2018 Inactive oxcarbazepine 300 mg/5 mL (60 mg/mL) oral suspension RxNorm: 857836 15 Milliliter(s) PO BID 07/08/2018 01/03/2019 Inactive sertraline 50 mg tablet RxNorm: 880037 1 TABLET(S) PO QHS 07/06/2018 12/28/2018 Inactive Singulair 10 mg tablet RxNorm: 243646 1 TABLET(S) PO QD 06/24/2018 Inactive Ciprodex 0.3 %-0.1 % ear drops,suspension RxNorm: 166813 DROP(S) 4 DROP(S) OTIC BID 06/20/2018 06/19/2018 Inactive Ciprodex 0.3 %-0.1 % ear drops,suspension RxNorm: 158626 Drop(s) DROP(S) 4 DROP(S) OTIC BID 06/20/2018 07/03/2018 Inactive cefdinir 250 mg/5 mL oral suspension RxNorm: 356035 12 Milliliter(s) PO QD though PEG tube 06/13/2018 06/22/2018 Inactive famotidine 20 mg tablet RxNorm: 211893 1 Tablet(s) PO QHS 05/31/2018 11/26/2018 Inactive famotidine 40 mg/5 mL (8 mg/mL) oral suspension RxNorm: 3102 74 2.5 Milliliter(s) PO QHS 04/29/2018 06/12/2018 Inactive meclizine 12.5 mg tablet RxNorm: 237566 1 TABLET(S) PO TID NEEDE D 04/25/2018 07/23/2018 Inactive change in quantity Generlac 10 gram/15 mL oral solution RxNorm: 816161 Mil liliter(s) 15 MILLILITER(S) PO TWO TO THREE TIMES DAILY 04/04/2018 05/03/2018 Inacti ve Ciprodex 0.3 %-0.1 % ear drops,suspension RxNorm: 379739 Drop(s) 4 DROP(S) OTIC BID 04/04/2018 04/17/2018 Inactive diazepam 10 mg tablet RxNorm: 914711 1 Tablet(s) PO QHS as needed 1 05/03/2018 Inactive famotidine 40 mg/5 mL (8 mg/mL) oral suspension RxNorm: 3102 74 2.5 Milliliter(s) PO QHS 04/04/2018 04/28/2018 Inactive Generlac 10 gram/15 mL oral solution RxNorm: 628868 15 MILLILITER(S) PO TWO TO THREE TIMES DAILY 03/24/2018 04/03/2018 Inactive Singulair 10 mg tablet RxNorm: 913507 1 TABLET(S) PO QD 03/18/2018 Inactive Ciprodex 0.3 %-0.1 % ear drops,suspension RxNorm: 905502 Drop(s) 4 DROP(S) OTIC BID 03/08/2018 03/21/2018 Inactive Generlac 10 gram/15 mL oral solution RxNorm: 220570 15 Milliliter(s) PO two to three times daily 03/03/2018 03/23/2018 Inactive meclizine 12.5 mg tablet RxNorm: 428717 1 Tablet(s) PO TID as neede d 02/10/2018 04/10/2018 Inactive change in quantity meclizine 12.5 mg tablet RxNorm: 244399 1 Tablet(s) PO BID as neede d 02/07/2018 02/09/2018 Inactive change in quantity Ciprodex 0.3 %-0.1 % ear drops,suspension RxNorm: 355298 Drop(s) 4 DROP(S) OTIC BID 02/02/2018 03/08/2018 Inactive sertraline 50 mg tablet RxNorm: 587832 1 TABLET(S) PO QHS 01/25/2018 07/05/2018 Inactive Zithromax 200 mg/5 mL oral suspension RxNorm: 858987 12.5 Dilcia liter(s) PO QD 12/31/2017 01/04/2018 Inactive Pepcid 20 mg tablet RxNorm: 480168 TABLET(S) 1 TABLET(S) PO QHS 04/29/2018 Inactive famotidine 40 mg/5 mL (8 mg/mL) oral suspension RxNorm: 3102 74 2.5 Milliliter(s) PO QHS 12/28/2017 12/27/2017 Inactive famotidine 40 mg/5 mL (8 mg/mL) oral suspension RxNorm: 3102 74 2.5 Milliliter(s) PO QHS 12/28/2017 04/03/2018 Inactive Ciprodex 0.3 %-0.1 % ear drops,suspension RxNorm: 852637 Drop(s) 4 DROP(S) OTIC BID 12/27/2017 02/02/2018 Inactive meclizine 12.5 mg tablet RxNorm: 971648 1 Tablet(s) PO BID as neede d 12/23/2017 02/06/2018 Inactive change in quantity Protonix 40 mg tablet,delayed release RxNorm: 498313 1 Tablet(s) PO or per feeding tube BID 12/16/2017 07/13/2018 Inactive oxcarbazepine 300 mg/5 mL (60 mg/mL) oral suspension RxNorm: 069939 15 Milliliter(s) PO BID 12/16/2017 07/08/2018 Inactive meclizine 12.5 mg tablet RxNorm: 580134 1 Tablet(s) PO BID as neede d 12/15/2017 02/07/2018 Inactive change in quantity Pepcid 40 mg/5 mL (8 mg/mL) oral suspension RxNorm: 854607 5 Milliliter(s) PO QHS to replace nighttime pantoprazole dose 12/14/2017 12/27/2017 Inact марина meclizine 12.5 mg tablet RxNorm: 821702 1 Tablet(s) PO BID as neede d 12/13/2017 12/23/2017 Inactive diazepam 10 mg tablet RxNorm: 942896 1 Tablet(s) PO QHS as needed 0 12/02/2017 03/01/2018 Inactive prednisolone 15 mg/5 mL oral solution RxNorm: 423233 5 Milliliter(s) PO BID for 3 days then 5ml daily for 3 days then 2.5ml daily for 3 days 12/02/2017 12/13/2017 Inactive sertraline 50 mg tablet RxNorm: 903642 1 Tablet(s) PO QHS 11/04/2017 01/24/2018 Inactive Ciprodex 0.3 %-0.1 % ear drops,suspension RxNorm: 092677 Drop(s) 4 DROP(S) OTIC BID 10/18/2017 10/31/2017 Inactive Ciprodex 0.3 %-0.1 % ear drops,suspension RxNorm: 638805 Drop(s) 4 DROP(S) OTIC BID 10/18/2017 12/27/2017 Inactive Singulair 10 mg tablet RxNorm: 205984 1 Tablet(s) PO QD 09/30/2017 Inactive diazepam 5 mg/5 mL (1 mg/mL) oral solution RxNorm: 535772 2.5 Milliliter(s) PO QD give additional 5 mg dose if seizure occurs 09/17/2017 No Stop Date A ctive Bactrim DS 800 mg-160 mg tablet RxNorm: 345684 1 Tablet(s) PO BID 0 09/17/2017 09/23/2017 Inactive Ciprodex 0.3 %-0.1 % ear drops,suspension RxNorm: 849778 4 DROP (S) OTIC BID 09/13/2017 10/18/2017 Inactive cefdinir 250 mg/5 mL oral suspension RxNorm: 333463 12 Milliliter(s) PO QD though PEG tube 08/06/2017 08/15/2017 Inactive sertraline 50 mg tablet RxNorm: 691792 1 Tablet(s) PO QHS 08/02/2017 11/04/2017 Inactive Ciprodex 0.3 %-0.1 % ear drops,suspension RxNorm: 399232 4 DROP (S) OTIC BID 07/22/2017 08/11/2017 Inactive Singulair 10 mg tablet RxNorm: 565677 1 Tablet(s) PO QD 06/30/2017 Inactive diazepam 10 mg tablet RxNorm: 262438 TAKE 1 TABLET BY M OUTH EVERY NIGHT AT BEDTIME NEEDED 06/04/2017 07/03/2017 Inactive oxcarbazepine 300 mg/5 mL (60 mg/mL) oral suspension RxNorm: 928385 15 MILLILITER(S) PO BID 05/03/2017 12/16/2017 Inactive sertraline 50 mg tablet RxNorm: 165579 1 Tablet(s) PO QHS 05/03/2017 08/02/2017 Inactive Protonix 40 mg tablet,delayed release RxNorm: 542471 1 Tablet(s) PO or per feeding tube BID 04/26/2017 12/16/2017 Inactive Ciprodex 0.3 %-0.1 % ear drops,suspension RxNorm: 637041 4 DROP (S) OTIC BID 04/26/2017 05/23/2017 Inactive Generlac 10 gram/15 mL oral solution RxNorm: 925622 Mil liliter(s) TAKE 15 ML BY MOUTH TWO-THREE TIMES DAILY 04/08/2017 03/03/2018 Inactive Singulair 10 mg tablet RxNorm: 517917 1 Tablet(s) PO QD 03/03/2017 Inactive diazepam 10 mg tablet RxNorm: 710328 1 Tablet(s) PO QHS as needed 0 02/15/2017 06/04/2017 Inactive Singulair 10 mg tablet RxNorm: 313840 1 Tablet(s) PO QD 12/01/2016 Inactive Diflucan 150 mg tablet RxNorm: 726125 Tablet(s) Give 1 tab PO now and then repeat dose in 5 days 11/10/2016 03/31/2017 Inactive Zithromax 200 mg/5 mL oral suspension RxNorm: 437873 12.5 Dilcia liter(s) PO QD 11/10/2016 11/14/2016 Inactive Singulair 10 mg tablet RxNorm: 832062 TAKE 1 TABLET BY MOUTH ON CE DAILY 11/02/2016 12/01/2016 Inactive diazepam 10 mg tablet RxNorm: 154364 TAKE 1 TABLET BY M OUTH EVERY NIGHT AT BEDTIME NEEDED 10/21/2016 11/19/2016 Inactive sertraline 50 mg tablet RxNorm: 324433 1 Tablet(s) PO QHS 10/12/2016 01/09/2017 Inactive fluconazole 100 mg tablet RxNorm: 491639 1 Tablet(s) PO QD 09/23/19 17 09/24/2016 Inactive fluconazole 100 mg tablet RxNorm: 569365 1 Tablet(s) PO QD 09/23/19 17 09/21/2016 Inactive Bactrim DS 800 mg-160 mg tablet RxNorm: 986901 1 Tablet(s) PO BID 0 09/10/2016 09/09/2016 Inactive Bactrim DS 800 mg-160 mg tablet RxNorm: 808530 1 Tablet(s) PO BID 0 09/10/2016 09/16/2016 Inactive oxcarbazepine 300 mg/5 mL (60 mg/mL) oral suspension RxNorm: 865366 15 Milliliter(s) PO BID 09/07/2016 03/05/2017 Inactive sertraline 50 mg tablet RxNorm: 511798 1 Tablet(s) PO QHS 07/06/2016 10/03/2016 Inactive Pepcid 20 mg tablet RxNorm: 199220 Tablet(s) 1 TABLET(S) PO QHS 08/201603/08/2017 Inactive sertraline 50 mg tablet RxNorm: 051977 1 Tablet(s) PO QHS 06/08/2016 05/03/2017 Inactive Generlac 10 gram/15 mL oral solution RxNorm: 287668 Mil liliter(s) TAKE 15 ML BY MOUTH TWO-THREE TIMES DAILY 06/08/2016 09/08/2016 Inactive Pepcid 20 mg tablet RxNorm: 716711 1 TABLET(S) PO QHS 06/04/201607/2016 Inactive fluconazole 100 mg tablet RxNorm: 018627 1 Tablet(s) QD through PEG tube 05/13/2016 12/01/2017 Inactive Diflucan 150 mg tablet RxNorm: 669231 Give 1 tab PO now and then repeat dose in 5 days 03/19/2016 11/09/2016 Inactive ceftriaxone 1 gram solution for injection RxNorm: 7514316 1 Gram(s) IM QD Wednesday and Wednesday03/19/2016 11/09/2016 Inactive lidocaine 10 mg/mL (1 %) injection solution RxNorm: 6987423 Use as directed to reconstitute Rocephin when needed 03/19/2016 12/13/2017 Inactive Generlac 10 gram/15 mL oral solution RxNorm: 873894 JOE E 15 ML BY MOUTH TWO- THREE TIMES DAILY 03/19/2016 06/07/2016 Inactive oxcarbazepine 300 mg/5 mL oral suspension RxNorm: 123852 15 Milliliter(s) PO BID 03/13/2016 09/07/2016 Inactive Ciprodex 0.3 %-0.1 % ear drops,suspension RxNorm: 493102 4 DROP (S) OTIC BID 03/09/2016 03/15/2016 Inactive cefdinir 250 mg/5 mL oral suspension RxNorm: 344543 11. 75 Milliliter(s) PO QD though PEG tube 03/02/2016 03/08/2016 Inactive cefdinir 250 mg/5 mL oral suspension RxNorm: 786114 11. 75 Milliliter(s) PO QD though PEG tube 02/24/2016 03/01/2016 Inactive cefdinir 250 mg/5 mL oral suspension RxNorm: 432903 11. 75 Milliliter(s) PO QD though PEG tube 02/24/2016 02/23/2016 Inactive Ciprodex 0.3 %-0.1 % ear drops,suspension RxNorm: 892401 4 Drop (s) OTIC BID 02/24/2016 03/01/2016 Inactive Generlac 10 gram/15 mL oral solution RxNorm: 388051 JOE E 15 ML BY MOUTH TWICE DAILY 02/17/2016 03/18/2016 Inactive Generlac 10 gram/15 mL oral solution RxNorm: 684848 15 Millilit er(s) PO BID 01/23/2016 02/16/2016 Inactive Pepcid 20 mg tablet RxNorm: 132408 1 TABLET(S) PO QHS 01/13/201605/07 Inactive Ciprodex 0.3 %-0.1 % ear drops,suspension RxNorm: 876744 4 Drop (s) OTIC BID 12/23/2015 12/29/2015 Inactive sertraline 50 mg tablet RxNorm: 832505 1 Tablet(s) PO QHS 12/16/2015 06/07/2016 Inactive Zithromax 500 mg tablet RxNorm: 475659 1 Tablet(s) PO QD 12/16/2015 0 12/22/2015 Inactive Pepcid 20 mg tablet RxNorm: 179692 1 Tablet(s) PO QHS 12/16/201501/02 Inactive Zithromax 500 mg tablet RxNorm: 985891 1 Tablet(s) PO QD 11/12/2015 0 11/18/2015 Inactive Singulair 10 mg tablet RxNorm: 532349 1 Tablet(s) PO BID 10/16/2015 0 11/11/2015 Inactive diazepam 10 mg tablet RxNorm: 090290 1 Tablet(s) PO QHS 10/07/2015 Inactive diazepam 10 mg tablet RxNorm: 702058 1 Tablet(s) PO QHS 10/07/2015 Inactive fexofenadine 30 mg/5 mL oral suspension RxNorm: 283341 10 Milliliter(s) PO one to two times daily PRN allergies 09/20/2015 12/15/2015 Inactive ceftriaxone 1 gram solution for injection RxNorm: 8642516 1 Gram (s) IM QD 09/20/2015 09/21/2015 Inactive Ciprodex 0.3 %-0.1 % ear drops,suspension RxNorm: 866406 4 Drop (s) OTIC BID 09/20/2015 10/03/2015 Inactive Protonix 40 mg tablet,delayed release RxNorm: 840185 1 Tablet(s) PO or per feeding tube BID 08/21/2015 12/18/2015 Inactive Carafate 100 mg/mL oral suspension RxNorm: 026745 10 Mi lliliter(s) Miscellaneous per feeding tube AC & HS 08/21/2015 09/19/2015 Inactive Zyrtec 10 mg tablet RxNorm: 4568822 1 Tablet(s) PO QD No Start Date Active diazepam 20 mg rectal kit RxNorm: 163828 RTL as needed No Start Date Active Lortab Elixir 10 mg-300 mg/15 mL oral solution RxNorm: 57695 45 8 PO Q6-8H as needed No Start Date Active ondansetron HCl 4 mg/5 mL oral solution RxNorm: 063542 10 Milliliter(s) PO as needed and through tube No Start Date Active sertraline 50 mg tablet RxNorm: 045992 1 Tablet(s) PO QD No Start D ate 12/15/2015 Inactive Brittany 180 mg tablet RxNorm: 694659 1 Tablet(s) PO QD No Start Date 06/12/2018 Inactive Generlac 10 gram/15 mL oral solution RxNorm: 604660 15 Millilit er(s) PO BID No Start Date 01/22/2016 Inactive oxcarbazepine 300 mg/5 mL oral suspension RxNorm: 829022 13.5 Milliliter(s) PO QAM and 15ml in the evening No Start Date 12/15/2015 Inactive Singulair 10 mg tablet RxNorm: 395407 1 Tablet(s) PO QD No Start Da te 11/30/2016 Inactive meclizine 12.5 mg tablet RxNorm: 084026 1 Tablet(s) PO TID as needed for dizziness No Start Date 09/13/2017 Inactive meclizine 12.5 mg tablet RxNorm: 493542 1 Tablet(s) PO BID No Start Date 12/12/2017 Inactive fluconazole 100 mg tablet RxNorm: 904845 1 Tablet(s) QD through PEG tube No Start Date 05/12/2016 Inactive Flomax 0.4 mg capsule RxNorm: 694299 1 Capsule(s) PO QD No Start Da te 06/12/2018 Inactive diazepam 10 mg tablet RxNorm: 630817 1 Tablet(s) PO QHS as needed N o Start Date 02/14/2017 Inactive Generlac 10 gram/15 mL oral solution RxNorm: 704413 15 Milliliter(s) PO two to three times daily No Start Date 03/02/2018 Inactive oxcarbazepine 300 mg/5 mL oral suspension RxNorm: 635038 15 Milliliter(s) PO BID No Start Date 12/15/2017 Inactive Medication Administered No Medication Administered data Immunizations Vaccine Codes Date Status Influenza CVX: 141 04/21/2019 Results No Results data Procedures Procedure Codes Date DEXAMETHASONE SODIUM PHOS CPT-4: J1100 05/03/2019 THER/PROPH/DIAG INJ SC/IM CPT-4: 94404 05/03/2019 CEFTRIAXONE SODIUM INJECTION CPT-4: J0696 03/19/2016 THER/PROPH/DIAG INJ SC/IM CPT-4: 54934 03/19/2016 DEXAMETHASONE SODIUM PHOS CPT-4: J1100 11/12/2015 THER/PROPH/DIAG INJ SC/IM CPT-4: 09106 11/12/2015 CEFTRIAXONE SODIUM INJECTION CPT-4: J0696 09/20/2015 THER/PROPH/DIAG INJ SC/IM CPT-4: 62309 09/20/2015 THER/PROPH/DIAG INJ SC/IM CPT-4: 84110 09/10/2015 METHYLPREDNISOLONE 40 MG INJ CPT-4: J1030 09/10/2015 TRIAMCINOLONE ACET INJ NOS CPT-4: J3301 09/10/2015 Vital Signs Date Vital 06/12/2019 Blood Pressure 1: 112/74 Code: 8480-6 BMI: 23.2 Code: 54224-6 Heart Rate 1: 102 bpm Height: 4'5" [...] 1: 114/70 Code: 8480-6 BMI: 23.1 Code: 70495-6 Heart Rate 1: 80 bpm Height: 4'6" Respiratory Rate: 20 bpm Temperature: 36 .5 (C) / 97.7 (F) Weight: 96 lbs Functional Status No Functional Status data Reason For Visit Reason For Visit Effective Dates Notes well woman exam (18-39 years) 06/12/2019 Annual [...] otalgia 09/10/2015 ~generic 08/21/2015 New Patient----[facility]ab [facility] visit Encounters Encounter Performer Location Codes Date ([id number]) PREV VISIT EST AGE 18-39 Diagnosis: Encounter for general adult medical examination with abnormal findings[ICD10: Z00.01] Diagnosis: Chronic pancreatitis[ICD10: K86.1] Diagnosis: Cerebral palsy, unspecified[ICD10: G80.9] Keily LINARES ThorAlicia CONCHITA [employer] [facility] CPT-4: 42316 06/12/2019 ([id number]) OFFICE/OUTPATIENT VISIT EST Diagnosis: Pneumonia, organism unspecified[ICD10: J18.9] Diagnosis: Breast mass, right[ICD10: N63.10] Keily Pepenicole LÓPEZFRANNY E ThorAlicia CONCHITA [employer] CPT-4: 45420 05/08/2019 ([id number]) OFFICE/OUTPATIENT VISIT EST Diagnosis: Allergic rhinitis due to pollen[ICD10: J30.1] Diagnosis: Otitis media, unspecified, right ear[ICD10: H66.91] Fatou ARANGO [employer] CPT-4: 94591 05/03/2019 ([id number]) OFFICE/OUTPATIENT VISIT EST Diagnosis: Irritability and anger[ICD10: R45.4] Nataliia Clayman BLANCA LOLITA ThorAlicia [employer] [facility] CPT-4: 74555 11/25/2018 ([id number]) OFFICE/OUTPATIENT VISIT EST Diagnosis: Acute suppurative otitis media without spontaneous rupture of ear drum, bilateral[ICD10: H66.003] Fatou RIOSLINE Diamante ARANGO [employer] [facility] CPT-4: 03396 06/13/2018 ([id number]) OFFICE/OUTPATIENT VISIT EST Diagnosis: Other fatigue[ICD10: R53.83] Diagnosis: Anuria and oliguria[ICD10: R34] Diagnosis: Acute gastritis without bleeding[ICD10: K29.00] Fatou RIOSLINE ThorAlicia CONCHITA [employer] [facility] CPT-4: 51096 01/04/2018 ([id number]) OFFICE/OUTPATIENT VISIT EST Diagnosis: Acute bronchitis, unspecified[ICD10: J20.9] Fatou RIOSLINE Diamante ARANGO [employer] CPT-4: 52210 12/31/2017 ([id number]) PREV VISIT EST AGE 18-39 Diagnosis: Encounter for general adult medical examination without abnormal findings[ICD10: Z00.00] Diagnosis: Severe intellectual disabilities[ICD10: F72] Diagnosis: Allergic rhinitis due to pollen[ICD10: J30.1] Diagnosis: Epilepsy, unspecified, intractable, without status epilepticus[ICD10: G40.919] Diagnosis: Gastro-esophageal reflux disease without esophagitis[ICD10: K21.9] Keily RIOSLINE Diamante [employer] [facility] CPT-4: 22454 12/14/2017 ([id number]) OFFICE/OUTPATIENT VISIT EST Diagnosis: Allergic rhinitis due to pollen[ICD10: J30.1] Diagnosis: Epilepsy, unspecified, intractable, without status epilepticus[ICD10: G40.919] Keily CASTILLO [employer] [facility] CPT-4: 52255 12/02/2017 ([id number]) OFFICE/OUTPATIENT VISIT EST Diagnosis: Other allergic rhinitis[ICD10: J30.89] Fatou JUDD OSMANY [employer] [facility] CPT-4: 01492 10/12/2017 OFFICE/OUTPATIENT VISIT EST Diagnosis: Acute suppurative otitis media without spontaneous rupture of ear drum, recurrent, left ear[ICD10: H66.005] Diagnosis: Epilepsy, unspecified, intractable, without status epilepticus[ICD10: G40.919] Diagnosis: Hesitancy of micturition[ICD10: R39.11] Faotu Bobby [employer] [facility] CPT-4: 34695 09/17/2017 OFFICE/OUTPATIENT VISIT EST Diagnosis: Otitis media, unspecified, left ear[ICD10: H66.92] Fatou Bobby [employer] [facility] CPT-4: 48035 08/06/2017 ([id number]) OFFICE/OUTPATIENT VISIT EST Diagnosis: Vertigo of central origin, 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.49] Diagnosis: Dizziness and giddiness[ICD10: R42] Keily NARANJO [employer] [facility] CPT-4: 67086 04/01/2017 OFFICE/OUTPATIENT VISIT EST Diagnosis: Vomiting, unspecified[ICD10: R11.10] Diagnosis: 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)[ICD10: K56.5] Diagnosis: Personal history of urinary calculi[ICD10: Z87.442] [facility]ely Andreina [facility] 60043 03/01/2017 ([id number]) OFFICE/OUTPATIENT VISIT EST Diagnosis: Allergic rhinitis due to pollen[ICD10: J30.1] Diagnosis: Acute and subacute allergic otitis media (mucoid) (sanguinous) (serous), left ear[ICD10: H65.112] Keily [facility] CPT-4: 31737 11/10/2016 ([id number]) OFFICE/OUTPATIENT VISIT EST Diagnosis: 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] Diagnosis: Unspecified ovarian cyst, right side[ICD10: N83.201] Diagnosis: Cyst of kidney, 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] Keily Conchita BINTA CERON [facility]: 80252 08/13/2016 ([id number]) OFFICE/OUTPATIENT VISIT EST Diagnosis: Rash and other nonspecific skin eruption[ICD10: R21] Aziza LINARES [facility] CPT-4: 77831 03/27/2016 ([id number]) OFFICE/OUTPATIENT VISIT EST Diagnosis: Urinary tract infection, site not specified[ICD10: N39.0] Keily Castillo KEILY Diamante [facility] CPT-4: 42160 03/23/2016 ([id number]) OFFICE/OUTPATIENT VISIT EST Diagnosis: Retention of urine, unspecified[ICD10: R33.9] Diagnosis: Dysuria[ICD10: R30.0] Diagnosis: Constipation, unspecified[ICD10: K59.00] Aziza LAWTON Diamante [facility] CPT-4: 15789 03/19/2016 ([id number]) OFFICE/OUTPATIENT VISIT EST Diagnosis: Acute sinusitis, unspecified[ICD10: J01.90] Keily Pepejamesdominique KEILY ThorAlicia [facility] CPT-4: 22733 03/02/2016 OFFICE/OUTPATIENT VISIT EST Diagnosis: Other fatigue[ICD10: R53.83] Diagnosis: Retention of urine, unspecified[ICD10: R33.9] Diagnosis: Dysuria[ICD10: R30.0] Diagnosis: Generalized abdominal pain[ICD10: R10.84] 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] Aziza ARANGO [facility] CPT-4: 76069 02/24/2016 ([id number]) OFFICE/OUTPATIENT VISIT EST Diagnosis: Chronic mucoid otitis media, right ear[ICD10: H65.31] Diagnosis: Allergic rhinitis, unspecified[ICD10: J30.9] Diagnosis: 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] Keily ARANGO [facility] CPT-4: 30651 12/16/2015 ([id number]) OFFICE/OUTPATIENT VISIT EST Diagnosis: Allergic rhinitis, unspecified[ICD10: J30.9] Diagnosis: Acute recurrent sinusitis, unspecified[ICD10: J01.91] Keily [facility] CPT-4: 28342 11/12/2015 ([id number]) OFFICE/OUTPATIENT VISIT EST Diagnosis: Other seasonal allergic rhinitis[ICD10: J30.2] Diagnosis: Nausea with vomiting, unspecified[ICD10: R11.2] Diagnosis: Epigastric pain[ICD10: R10.13] Aziza RIOSLINE Thor [facility] CPT-4: 79913 10/16/2015 OFFICE/OUTPATIENT VISIT EST Diagnosis: Encounter for follow-up examination after completed treatment for conditions other than malignant neoplasm[ICD10: Z09] Diagnosis: Generalized abdominal pain[ICD10: R10.84] Keily ARANGO [facility] CPT-4: 15513 09/23/2015 ([id number]) OFFICE/OUTPATIENT VISIT EST Diagnosis: Otitis media, unspecified, right ear[ICD10: H66.91] Diagnosis: Constipation, unspecified[ICD10: K59.00] Diagnosis: Allergic rhinitis, unspecified[ICD10: J30.9] Aziza Magallanes KEILY Diamante [facility] CPT-4: 36922 09/20/2015 OFFICE/OUTPATIENT VISIT EST Diagnosis: Allergic rhinitis, unspecified[ICD10: J30.9] Diagnosis: Unspecified perforation of tympanic membrane, right ear[ICD10: H72.91] Bibiana ARANGO DO [employer] CPT-4: 79189 09/10/2015 OFFICE/OUTPATIENT VISIT NEW Diagnosis: Epilepsy, unspecified, intractable, without status epilepticus[ICD10: G40.919] Diagnosis: Gastric ulcer, unspecified as acute or chronic, without hemorrhage or perforation[ICD10: K25.9] Diagnosis: Severe intellectual disabilities[ICD10: F72] Keily LINARES ThorAlicia CONCHITA [employer] CPT-4: 58239 08/21/2015 Plan of Care Planned Activity Notes Codes Status Date Visit Diagnosis Plan: Chronic pancreatitis Discussion: Continue zenpep and recheck CMP with amylase/lipase in 1 month ICD-9 : 577.1 ICD-10 : K86.1 06/12/2019 Appointment: Keily Arango WPtel: [address] [place] [address] Annual Well Visit 06/12/2019 Visit Diagnosis Plan: [...] : J18.9 05/08/2019 Appointment: Keily Arango WPtel: [address] [place] [address] Hospital Follow Up 05/08/2019 Visit Diagnosis Plan: [...] ICD-10 : H66.91 05/03/2019 Appointment: Fatou Onofre [address] [place] [address] ACUTE ILLNESS 05/03/2019 Patient Education: amoxicillin- [employer] C[employer]on [phone] [email or web address] Completed 05/03/2019 Visit Diagnosis Plan: Irritability and [...] ICD-10 : R45.4 11/25/2018 Appointment: Nataliia Hsieh [facility] [address] ACUTE ILLNESS 11/25/2018 Visit Diagnosis Plan: Acute suppurative otitis media without spontaneous rupture of ear drum, bilateral Discussion: cefdinir for 10 days. if wor sening symptoms later this week, call clinic. push fluids and tylenol/ibuprofen prn pain or fever. ICD-9 : 382.00 ICD-10 : H66.003 06/13/2018 Appointment: Fatou Onofre [address] [place], [place] [id number] ACUTE ILLNESS 06/13/2018 Visit Diagnosis Plan: Anuria [...] ICD-10 : K29.00 01/04/2018 Appointment: Fatou Onofre [address] [place] [address] ACUTE ILLNESS 01/04/2018 Patient Education: Patient Medication Summary Completed 01/04/2018 Visit Diagnosis Plan: Acute bronchitis, unspecified Di scussion: zithromax prescribed to take as directed. continue with allergy meds including flonase to help dry congestion. call office next week if new or worsening symptoms. ICD-9 : 466.0 ICD-10 : J20.9 12/31/2017 Appointment: Fatou Onofre [address] ACUTE ILLNESS 12/31/2017 Patient Education: Patient [...] G40.919 12/14/2017 Visit Diagnosis Plan: Encounter for [facility] adult medical examination without abnormal findings Discussion: Had recent lab done Follow Up: 3 months ICD-9 : V70.9 ICD-10 : Z00.00 12/14/2017 Appointment: Keily Arangol: [facility] CHECK UP 12/14/2017 Patient Education: Patient Medication [...] 477.9 ICD-10 : J30.1 12/02/2017 Appointment: Keily Arangol: [id number] ACUTE ILLNESS 12/02/2017 Patient Education: Patient Medication Summary Completed 12/02/2017 Visit Diagnosis Plan: Other allergic rhinitis Discussi on: symptoms most likely caused from allergies. patient sent to hospital for decadron injection. instructed to restart patient's flonase at home. if new or worsening symptoms, call or rtc. ICD-9 : 477.8 ICD-10 : J30.89 10/12/2017 Appointment: Fatou Onofre [address] [place], [place] [id number] ACUTE ILLNESS 10/12/2017 Patient Education: Patient Medication [...] ICD-10 : G40.919 09/17/2017 Appointment: Fatou Onofre [address] [place], [place] [id number] ACUTE ILLNESS 09/17/2017 Patient Education: Patient Medication Summary Completed 09/17/2017 Visit Diagnosis Plan: Otitis media, unspecified, left ear Discussion: cefdinir prescribed daily for 10 days. instructed to administer tylenol/ibuprofen for pain or fever. if no improvement, or worsening symptoms, call or rtc. ICD-9 : 380.14 ICD-10 : H66.92 08/06/2017 Appointment: Fatou Onofre [address] [place] [address] ACUTE ILLNESS 08/06/2017 Patient Education: Patient Medication Summary Completed 08/06/2017 Patient Education: Patient Medication Summary Completed 08/02/2017 Patient Education: Patient Medication Summary Completed 04/21/2017 Care Plan: MRI BRAIN STEM W/O DYE LOINC : 12365-2 Pending 04/21/2017 Patient Education: Patient Medication Summary Completed 04/20/2017 Care Plan: MRI BRAIN STEM W/O DYE LOINC : 77760-8 Pending 04/20/2017 Visit Diagnosis Plan: Vertigo of central origin, unspe cified ear Discussion: Continue meclizine at 12.5mg po BID for 2 more weeks then go to 12.5mg daily for 2 weeks then 6.25mg daily for 2 weeks then stop Notify if any symptoms return with weaning process ICD-9 : 386.2 ICD-10 : H81.49 04/01/2017 Appointment: Keily Arango WPtel: [phone] FOLLOW UP 04/01/2017 Patient Education: Patient Medication Summary Completed 04/01/2017 Patient Education: Patient Medication Summary Completed 03/09/2017 Care Plan: CT HEAD/BRAIN W/O DYE LOINC : 82908-1 Pending 03/09/2017 Visit Plan: It's difficult to [...] indicated. 03/01/2017 Appointment: Emely Hdz WPtel: [phone] ACUTE ILLNESS 03/01/2017 Patient Education: Patient Medication Summary Completed 03/01/2017 Patient Education: Patient Medication Summary Completed 12/17/2016 Visit Diagnosis Plan: Acute and subacute allergic otitis media (mucoid) (sanguinous) (serous), left ear Discussion: Zithromax ICD-9 : 381.05 ICD-10 : H65.112 11/10/2016 Visit Diagnosis Plan: Allergic rhinitis due to pollen Discussion: Continue zyrtec/singulair ICD-9 : 477.9 ICD-10 : J30.1 11/10/2016 Appointment: Keily Arango WPtel: [address] [place] [address] ACUTE ILLNESS 11/10/2016 Patient Education: Patient Medication Summary Completed 11/10/2016 Patient Education: Patient Medication Summary Completed 09/07/2016 Care Plan: URINALYSIS AUTO W/[place] : 16657-8 Pending 09/07/2016 Visit Diagnosis Plan: Cyst of [...] : N83.201 08/13/2016 Appointment: Keily Arango WPtel: [address] [place], [place] [phone] 08/12 confirmed-sp FOLLOW UP 08/13/2016 Patient Education: Patient Medication Summary Completed 08/13/2016 Patient Education: Patient Medication Summary Completed 05/19/2016 Care Plan: X-RAY EXAM OF FOOT left foot LOINC : 26 095-0 Pending 05/19/2016 Visit Plan: Discussed with Dr Conchita MAGANA C to be drawn Order sent to Will call with results 03/27/2016 Appointment: Aziza Magallanes [address] ACUTE ILLNESS 03/27/2016 Patient Education: Patient Medication Summary Completed 03/27/2016 Visit Plan: Go for dose of rocephin 1gm IM today and tomorrow then done Diflucan 150mg x1 today Discussed with mom via phone about urology fwup--she will talk with her and let us know 03/23/2016 Appointment: Keily Arango WPtel: [facility] 03/23 confirmed ~sl FOLLOW UP 03/23/2016 Patient Education: Patient Medication Summary Completed 03/23/2016 Visit Plan: Per Dr Arango, straight cat h for UA and culture today Ok to have a standing order for further UA needs at for straight cath Rocephin IM today and daily through Wednesday Mom has arranged a family friend that is an REHABILITATION SERVICES DIRECTOR to give Wednesday and Sundays injections - [...] let us know 03/19/2016 Appointment: Aziza Magallanes [address] [place], [place] [id number] ACUTE ILLNESS 03/19/2016 Patient Education: Patient Medication Summary Completed 03/19/2016 Visit Plan: 1 more week of cefdinir 03/02/2016 Appointment: Keily Arango WPtel: [phone] [facility] 03/02 confirmed~sl WORK IN 03/02/2016 Patient Education: [...] seen if worsening 02/24/2016 Appointment: Aziza Magallanes [address] [place] [address] ACUTE ILLNESS 02/24/2016 Patient Education: Patient Medication Summary Completed 02/24/2016 Care Plan: CHEST X-RAY 2VW FRONTAL&LATL LOINC : 32508-2 Pending 02/24/2016 Care Plan: X-RAY EXAM OF ABDOMEN LOINC : 96602-8 Pending 02/24/2016 Visit Plan: Repeat zithromax x1 week Cip rodex to right ear x1 week Add Pepcid q HS x2-4 weeks for total histamine blockade and for extra stomach protection while on zithromax 12/16/2015 [facility]ment[phone] [facility]9 lm~sl 6/10 lm ~sl FOLLOW UP 12/16/2015 Patient Education: Patient Medication Summary Completed 12/16/2015 Patient Education: [facility] - [employer] - Sertraline HCL - 18-64 - Dynamic Portal ID Completed 12/16/2015 Visit Plan: Saline nasal flushes prn. Ty lenol/Motrin prn headache. Notify if persists/symptoms worsens Dexamethasone given 11/12/2015 Appointment: [phone] [facility] [facility] 5/9 lm~sl 5/10 lm~sl [...] for Belkys 10/16/2015 Appointment: Aziza Magallanes [address] [facility] ACUTE ILLNESS 10/16/2015 Patient Education: Patient Medication Summary Completed 10/16/2015 Appointment: Aziza Magallanes [address] [place], [place] [id number] [place] canceled, feeling better CANCELED 016 Visit Plan: No further abx needed Go mariela k to jevity for next 3 days and restart carafate Notify if abdominal pain worsens 09/23/2015 Appointment: [facility]ily [facility]ango [facility]el[phone] [facility] 09/19 confirmed-sp FOLLOW UP 09/23/2015 [...] done in the past. [facility] Recheck in [...] try for now. 09/20/2015 Appointment: [facility] [facility] [facility] 09/20/2015 Patient Education: Patient Medication Summary Completed 09/20/2015 Visit Plan: Depo Medrol 40mg/ Kenalog 40 mg IM today Resume Ciprodex otic gtts. bid to Rt. ear 09/10/2015 Appointment: Bibiana Garg [facility]Ptel[facility] [phone] [facility] 09/08 confirmed-sp ACUTE ILLNESS 09/10/2015 Patient Education: [...] arranged a family friend that is an REHABILITATION SERVICES DIRECTOR to give Wednesday and Sundays injections - [...] done in the past. Order sent to [facility] since [facility] does not have [...]
--- OUTSIDE RECORDS SUMMARY | 2019-11-10 19:41 | XMS REPORT | CCD ---
Author Author Belkys Arango D.O. Organization [facility] Address [address] [place] [address] Phone Care Team Providers Care Mail Service Coordinator Name Role Phone Keily Arango D.O., PP Unavailable CCM Unavailable Summary Purpose Interface Exchange Insurance Providers Payer name Policy type / Coverage type Covered constitution party ID Effective Begin Date Effective End Date [employer] [facility] Medicaid [id number] U nknown Family History Family History data not found Social History Social History Element Codes Description Effective Dates Marital status Unknown Single 08/21/2015 Employment Unknown Currently unemployed Physically handicapped 08/21/[address]: 059818840 Has never smoked or chewed tobacco 08/21/[address]: 929788681 Never drinks alcohol 2015 Allergies, Adverse Reactions, [...] Start Date Stop Date Status Fill Instructions famotidine 20 mg tablet RxNorm: 867253 TAKE 1 TABLET BY MOUTH EVERY NIGHT AT BEDTIME 07/09/2019 01/04/2020 Active sertraline 50 mg tablet RxNorm: 828532 TAKE 1 TABLET BY MOUTH EVERY NIGHT AT BEDTIME 07/09/2019 09/06/2019 Active Zenpep 40,000 unit-126,000 unit-168,000 unit capsule,d elayed release RxNorm: 7706006 1 Capsule(s) Oral AC 06/12/2019 10/10/2019 Active Zenpep 40,000 unit-126,000 unit-168,000 unit capsule,d elayed release RxNorm: 8280286 1 Capsule(s) Oral AC 05/24/2019 05/23/2019 Inactive Zenpep 40,000 unit-126,000 unit-168,000 unit capsule,d elayed release RxNorm: 3056469 1 Capsule(s) Oral AC 05/24/2019 06/11/2019 Inactive Ciprodex 0.3 %-0.1 % ear drops,suspension RxNorm: 097374 DROP(S) 4 DROP(S) OTIC BID 05/22/2019 06/18/2019 Inactive oxcarbazepine 300 mg/5 mL (60 mg/mL) oral suspension RxNorm: 777091 15 Milliliter(s) Oral two times a day 05/08/2019 11/03/2019 Active meclizine 12.5 mg tablet RxNorm: 900691 1 TABLET(S) PO TID NEEDE D 05/05/2019 08/02/2019 Active change in quantity Zithromax 200 mg/5 mL oral suspension RxNorm: 309991 12.5 Dilcia liter(s) Oral QD 05/04/2019 05/09/2019 Inactive amoxicillin 400 mg/5 mL oral suspension RxNorm: 743756 10 Milliliter(s) Oral two times a day 05/03/2019 05/13/2019 Inactive Singulair 10 mg tablet RxNorm: 891929 1 TABLET(S) PO QD 03/28/2019 Active Macrobid 100 mg capsule RxNorm: 383505 1 Capsule(s) PO BID 03/16/2003/22/2019 Inactive meclizine 12.5 mg tablet RxNorm: 555621 1 Tablet(s) PO TID as neede d 03/10/2019 05/04/2019 Inactive change in quantity Ciprodex 0.3 %-0.1 % ear drops,suspension RxNorm: 392845 DROP(S) 4 DROP(S) OTIC BID 03/08/2019 04/04/2019 Inactive oxcarbazepine 300 mg/5 mL (60 mg/mL) oral suspension RxNorm: 088643 15 Milliliter(s) PO BID 03/07/2019 05/07/2019 Inactive Macrobid 100 mg capsule RxNorm: 176965 1 Capsule(s) PO BID 02/21/20 19 03/01/2019 Inactive Macrobid 100 mg capsule RxNorm: 833378 1 Capsule(s) PO BID 02/21/20 19 02/19/2019 Inactive meclizine 12.5 mg tablet RxNorm: 382264 1 Tablet(s) PO TID as neede d 02/06/2019 03/07/2019 Inactive change in quantity Ciprodex 0.3 %-0.1 % ear drops,suspension RxNorm: 229917 DROP(S) 4 DROP(S) OTIC BID 01/30/2019 02/12/2019 Inactive diazepam 10 mg tablet RxNorm: 397717 1 Tablet(s) PO QHS as needed 0 01/27/2019 03/27/2019 Inactive sertraline 50 mg tablet RxNorm: 190371 1 Tablet(s) PO QHS 12/29/2018 06/26/2019 Inactive famotidine 20 mg tablet RxNorm: 254799 1 Tablet(s) PO QHS 12/29/2018 06/26/2019 Inactive Ciprodex 0.3 %-0.1 % ear drops,suspension RxNorm: 111270 DROP(S) 4 DROP(S) OTIC BID 12/14/2018 12/27/2018 Inactive Generlac 10 gram/15 mL oral solution RxNorm: 218568 15 Milliliter(s) PO TWO TO THREE TIMES DAILY 12/06/2018 06/03/2019 Inactive Protonix 40 mg tablet,delayed release RxNorm: 936477 1 Tablet(s) PO or per feeding tube BID 11/24/2018 05/22/2019 Inactive meclizine 12.5 mg tablet RxNorm: 281105 1 Tablet(s) PO TID as neede d 11/11/2018 02/06/2019 Inactive change in quantity Ciprodex 0.3 %-0.1 % ear drops,suspension RxNorm: 112560 DROP(S) 4 DROP(S) OTIC BID 11/08/2018 11/21/2018 Inactive diazepam 10 mg tablet RxNorm: 061364 1 Tablet(s) PO QHS as needed 0 10/21/2018 11/19/2018 Inactive Generlac 10 gram/15 mL oral solution RxNorm: 088065 Mil liliter(s) 15 MILLILITER(S) PO TWO TO THREE TIMES DAILY 10/07/2018 11/05/2018 Inacti ve Ciprodex 0.3 %-0.1 % ear drops,suspension RxNorm: 231850 DROP(S) DROP(S) 4 DROP(S) OTIC BID 08/26/2018 03/15/2019 Inactive meclizine 12.5 mg tablet RxNorm: 188379 1 TABLET(S) PO TID NEEDE D 07/25/2018 10/22/2018 Inactive change in quantity oxcarbazepine 300 mg/5 mL (60 mg/mL) oral suspension RxNorm: 453695 15 Milliliter(s) PO BID 07/08/2018 07/07/2018 Inactive oxcarbazepine 300 mg/5 mL (60 mg/mL) oral suspension RxNorm: 915294 15 Milliliter(s) PO BID 07/08/2018 01/03/2019 Inactive sertraline 50 mg tablet RxNorm: 065355 1 TABLET(S) PO QHS 07/06/2018 12/28/2018 Inactive Singulair 10 mg tablet RxNorm: 327825 1 TABLET(S) PO QD 06/24/2018 Inactive Ciprodex 0.3 %-0.1 % ear drops,suspension RxNorm: 290631 DROP(S) 4 DROP(S) OTIC BID 06/20/2018 06/19/2018 Inactive Ciprodex 0.3 %-0.1 % ear drops,suspension RxNorm: 841508 Drop(s) DROP(S) 4 DROP(S) OTIC BID 06/20/2018 07/03/2018 Inactive cefdinir 250 mg/5 mL oral suspension RxNorm: 862919 12 Milliliter(s) PO QD though PEG tube 06/13/2018 06/22/2018 Inactive famotidine 20 mg tablet RxNorm: 578480 1 Tablet(s) PO QHS 05/31/2018 11/26/2018 Inactive famotidine 40 mg/5 mL (8 mg/mL) oral suspension RxNorm: 3102 74 2.5 Milliliter(s) PO QHS 04/29/2018 06/12/2018 Inactive meclizine 12.5 mg tablet RxNorm: 726366 1 TABLET(S) PO TID NEEDE D 04/25/2018 07/23/2018 Inactive change in quantity Generlac 10 gram/15 mL oral solution RxNorm: 834146 Mil liliter(s) 15 MILLILITER(S) PO TWO TO THREE TIMES DAILY 04/04/2018 05/03/2018 Inacti ve Ciprodex 0.3 %-0.1 % ear drops,suspension RxNorm: 658845 Drop(s) 4 DROP(S) OTIC BID 04/04/2018 04/17/2018 Inactive diazepam 10 mg tablet RxNorm: 735877 1 Tablet(s) PO QHS as needed 1 05/03/2018 Inactive famotidine 40 mg/5 mL (8 mg/mL) oral suspension RxNorm: 3102 74 2.5 Milliliter(s) PO QHS 04/04/2018 04/28/2018 Inactive Generlac 10 gram/15 mL oral solution RxNorm: 317463 15 MILLILITER(S) PO TWO TO THREE TIMES DAILY 03/24/2018 04/03/2018 Inactive Singulair 10 mg tablet RxNorm: 734686 1 TABLET(S) PO QD 03/18/2018 Inactive Ciprodex 0.3 %-0.1 % ear drops,suspension RxNorm: 809348 Drop(s) 4 DROP(S) OTIC BID 03/08/2018 03/21/2018 Inactive Generlac 10 gram/15 mL oral solution RxNorm: 709418 15 Milliliter(s) PO two to three times daily 03/03/2018 03/23/2018 Inactive meclizine 12.5 mg tablet RxNorm: 905314 1 Tablet(s) PO TID as neede d 02/10/2018 04/10/2018 Inactive change in quantity meclizine 12.5 mg tablet RxNorm: 042599 1 Tablet(s) PO BID as neede d 02/07/2018 02/09/2018 Inactive change in quantity Ciprodex 0.3 %-0.1 % ear drops,suspension RxNorm: 014836 Drop(s) 4 DROP(S) OTIC BID 02/02/2018 03/08/2018 Inactive sertraline 50 mg tablet RxNorm: 623034 1 TABLET(S) PO QHS 01/25/2018 07/05/2018 Inactive Zithromax 200 mg/5 mL oral suspension RxNorm: 673408 12.5 Dilcia liter(s) PO QD 12/31/2017 01/04/2018 Inactive Pepcid 20 mg tablet RxNorm: 745409 TABLET(S) 1 TABLET(S) PO QHS 04/29/2018 Inactive famotidine 40 mg/5 mL (8 mg/mL) oral suspension RxNorm: 3102 74 2.5 Milliliter(s) PO QHS 12/28/2017 12/27/2017 Inactive famotidine 40 mg/5 mL (8 mg/mL) oral suspension RxNorm: 3102 74 2.5 Milliliter(s) PO QHS 12/28/2017 04/03/2018 Inactive Ciprodex 0.3 %-0.1 % ear drops,suspension RxNorm: 775276 Drop(s) 4 DROP(S) OTIC BID 12/27/2017 02/02/2018 Inactive meclizine 12.5 mg tablet RxNorm: 737939 1 Tablet(s) PO BID as neede d 12/23/2017 02/06/2018 Inactive change in quantity Protonix 40 mg tablet,delayed release RxNorm: 876989 1 Tablet(s) PO or per feeding tube BID 12/16/2017 07/13/2018 Inactive oxcarbazepine 300 mg/5 mL (60 mg/mL) oral suspension RxNorm: 114023 15 Milliliter(s) PO BID 12/16/2017 07/08/2018 Inactive meclizine 12.5 mg tablet RxNorm: 369827 1 Tablet(s) PO BID as neede d 12/15/2017 02/07/2018 Inactive change in quantity Pepcid 40 mg/5 mL (8 mg/mL) oral suspension RxNorm: 205989 5 Milliliter(s) PO QHS to replace nighttime pantoprazole dose 12/14/2017 12/27/2017 Inact марина meclizine 12.5 mg tablet RxNorm: 890861 1 Tablet(s) PO BID as neede d 12/13/2017 12/23/2017 Inactive diazepam 10 mg tablet RxNorm: 383247 1 Tablet(s) PO QHS as needed 0 12/02/2017 03/01/2018 Inactive prednisolone 15 mg/5 mL oral solution RxNorm: 312310 5 Milliliter(s) PO BID for 3 days then 5ml daily for 3 days then 2.5ml daily for 3 days 12/02/2017 12/13/2017 Inactive sertraline 50 mg tablet RxNorm: 716934 1 Tablet(s) PO QHS 11/04/2017 01/24/2018 Inactive Ciprodex 0.3 %-0.1 % ear drops,suspension RxNorm: 700030 Drop(s) 4 DROP(S) OTIC BID 10/18/2017 10/31/2017 Inactive Ciprodex 0.3 %-0.1 % ear drops,suspension RxNorm: 896347 Drop(s) 4 DROP(S) OTIC BID 10/18/2017 12/27/2017 Inactive Singulair 10 mg tablet RxNorm: 019925 1 Tablet(s) PO QD 09/30/2017 Inactive diazepam 5 mg/5 mL (1 mg/mL) oral solution RxNorm: 756167 2.5 Milliliter(s) PO QD give additional 5 mg dose if seizure occurs 09/17/2017 No Stop Date A ctive Bactrim DS 800 mg-160 mg tablet RxNorm: 411361 1 Tablet(s) PO BID 0 09/17/2017 09/23/2017 Inactive Ciprodex 0.3 %-0.1 % ear drops,suspension RxNorm: 263706 4 DROP (S) OTIC BID 09/13/2017 10/18/2017 Inactive cefdinir 250 mg/5 mL oral suspension RxNorm: 774671 12 Milliliter(s) PO QD though PEG tube 08/06/2017 08/15/2017 Inactive sertraline 50 mg tablet RxNorm: 048800 1 Tablet(s) PO QHS 08/02/2017 11/04/2017 Inactive Ciprodex 0.3 %-0.1 % ear drops,suspension RxNorm: 564707 4 DROP (S) OTIC BID 07/22/2017 08/11/2017 Inactive Singulair 10 mg tablet RxNorm: 315864 1 Tablet(s) PO QD 06/30/2017 Inactive diazepam 10 mg tablet RxNorm: 787788 TAKE 1 TABLET BY M OUTH EVERY NIGHT AT BEDTIME NEEDED 06/04/2017 07/03/2017 Inactive oxcarbazepine 300 mg/5 mL (60 mg/mL) oral suspension RxNorm: 179029 15 MILLILITER(S) PO BID 05/03/2017 12/16/2017 Inactive sertraline 50 mg tablet RxNorm: 666416 1 Tablet(s) PO QHS 05/03/2017 08/02/2017 Inactive Protonix 40 mg tablet,delayed release RxNorm: 142545 1 Tablet(s) PO or per feeding tube BID 04/26/2017 12/16/2017 Inactive Ciprodex 0.3 %-0.1 % ear drops,suspension RxNorm: 745618 4 DROP (S) OTIC BID 04/26/2017 05/23/2017 Inactive Generlac 10 gram/15 mL oral solution RxNorm: 637750 Mil liliter(s) TAKE 15 ML BY MOUTH TWO-THREE TIMES DAILY 04/08/2017 03/03/2018 Inactive Singulair 10 mg tablet RxNorm: 629328 1 Tablet(s) PO QD 03/03/2017 Inactive diazepam 10 mg tablet RxNorm: 370240 1 Tablet(s) PO QHS as needed 0 02/15/2017 06/04/2017 Inactive Singulair 10 mg tablet RxNorm: 740985 1 Tablet(s) PO QD 12/01/2016 Inactive Diflucan 150 mg tablet RxNorm: 932402 Tablet(s) Give 1 tab PO now and then repeat dose in 5 days 11/10/2016 03/31/2017 Inactive Zithromax 200 mg/5 mL oral suspension RxNorm: 258146 12.5 Dilcia liter(s) PO QD 11/10/2016 11/14/2016 Inactive Singulair 10 mg tablet RxNorm: 881067 TAKE 1 TABLET BY MOUTH ON CE DAILY 11/02/2016 12/01/2016 Inactive diazepam 10 mg tablet RxNorm: 992983 TAKE 1 TABLET BY M OUTH EVERY NIGHT AT BEDTIME NEEDED 10/21/2016 11/19/2016 Inactive sertraline 50 mg tablet RxNorm: 620052 1 Tablet(s) PO QHS 10/12/2016 01/09/2017 Inactive fluconazole 100 mg tablet RxNorm: 598269 1 Tablet(s) PO QD 09/23/19 17 09/24/2016 Inactive fluconazole 100 mg tablet RxNorm: 101612 1 Tablet(s) PO QD 09/23/19 17 09/21/2016 Inactive Bactrim DS 800 mg-160 mg tablet RxNorm: 703052 1 Tablet(s) PO BID 0 09/10/2016 09/09/2016 Inactive Bactrim DS 800 mg-160 mg tablet RxNorm: 797542 1 Tablet(s) PO BID 0 09/10/2016 09/16/2016 Inactive oxcarbazepine 300 mg/5 mL (60 mg/mL) oral suspension RxNorm: 103754 15 Milliliter(s) PO BID 09/07/2016 03/05/2017 Inactive sertraline 50 mg tablet RxNorm: 309797 1 Tablet(s) PO QHS 07/06/2016 10/03/2016 Inactive Pepcid 20 mg tablet RxNorm: 093974 Tablet(s) 1 TABLET(S) PO QHS 08/201603/08/2017 Inactive sertraline 50 mg tablet RxNorm: 195486 1 Tablet(s) PO QHS 06/08/2016 05/03/2017 Inactive Generlac 10 gram/15 mL oral solution RxNorm: 714939 Mil liliter(s) TAKE 15 ML BY MOUTH TWO-THREE TIMES DAILY 06/08/2016 09/08/2016 Inactive Pepcid 20 mg tablet RxNorm: 261972 1 TABLET(S) PO QHS 06/04/201607/2016 Inactive fluconazole 100 mg tablet RxNorm: 663704 1 Tablet(s) QD through PEG tube 05/13/2016 12/01/2017 Inactive Diflucan 150 mg tablet RxNorm: 439451 Give 1 tab PO now and then repeat dose in 5 days 03/19/2016 11/09/2016 Inactive ceftriaxone 1 gram solution for injection RxNorm: 1566759 1 Gram(s) IM QD Wednesday and Wednesday03/19/2016 11/09/2016 Inactive lidocaine 10 mg/mL (1 %) injection solution RxNorm: 9937299 Use as directed to reconstitute Rocephin when needed 03/19/2016 12/13/2017 Inactive Generlac 10 gram/15 mL oral solution RxNorm: 788343 JOE E 15 ML BY MOUTH TWO- THREE TIMES DAILY 03/19/2016 06/07/2016 Inactive oxcarbazepine 300 mg/5 mL oral suspension RxNorm: 585456 15 Milliliter(s) PO BID 03/13/2016 09/07/2016 Inactive Ciprodex 0.3 %-0.1 % ear drops,suspension RxNorm: 052695 4 DROP (S) OTIC BID 03/09/2016 03/15/2016 Inactive cefdinir 250 mg/5 mL oral suspension RxNorm: 183601 11. 75 Milliliter(s) PO QD though PEG tube 03/02/2016 03/08/2016 Inactive cefdinir 250 mg/5 mL oral suspension RxNorm: 328517 11. 75 Milliliter(s) PO QD though PEG tube 02/24/2016 03/01/2016 Inactive cefdinir 250 mg/5 mL oral suspension RxNorm: 323079 11. 75 Milliliter(s) PO QD though PEG tube 02/24/2016 02/23/2016 Inactive Ciprodex 0.3 %-0.1 % ear drops,suspension RxNorm: 128379 4 Drop (s) OTIC BID 02/24/2016 03/01/2016 Inactive Generlac 10 gram/15 mL oral solution RxNorm: 641623 JOE E 15 ML BY MOUTH TWICE DAILY 02/17/2016 03/18/2016 Inactive Generlac 10 gram/15 mL oral solution RxNorm: 948685 15 Millilit er(s) PO BID 01/23/2016 02/16/2016 Inactive Pepcid 20 mg tablet RxNorm: 641410 1 TABLET(S) PO QHS 01/13/201605/07 Inactive Ciprodex 0.3 %-0.1 % ear drops,suspension RxNorm: 554485 4 Drop (s) OTIC BID 12/23/2015 12/29/2015 Inactive sertraline 50 mg tablet RxNorm: 679678 1 Tablet(s) PO QHS 12/16/2015 06/07/2016 Inactive Zithromax 500 mg tablet RxNorm: 410832 1 Tablet(s) PO QD 12/16/2015 0 12/22/2015 Inactive Pepcid 20 mg tablet RxNorm: 659048 1 Tablet(s) PO QHS 12/16/201501/02 Inactive Zithromax 500 mg tablet RxNorm: 332987 1 Tablet(s) PO QD 11/12/2015 0 11/18/2015 Inactive Singulair 10 mg tablet RxNorm: 213217 1 Tablet(s) PO BID 10/16/2015 0 11/11/2015 Inactive diazepam 10 mg tablet RxNorm: 046695 1 Tablet(s) PO QHS 10/07/2015 Inactive diazepam 10 mg tablet RxNorm: 179990 1 Tablet(s) PO QHS 10/07/2015 Inactive fexofenadine 30 mg/5 mL oral suspension RxNorm: 340620 10 Milliliter(s) PO one to two times daily PRN allergies 09/20/2015 12/15/2015 Inactive ceftriaxone 1 gram solution for injection RxNorm: 0554029 1 Gram (s) IM QD 09/20/2015 09/21/2015 Inactive Ciprodex 0.3 %-0.1 % ear drops,suspension RxNorm: 151100 4 Drop (s) OTIC BID 09/20/2015 10/03/2015 Inactive Protonix 40 mg tablet,delayed release RxNorm: 626259 1 Tablet(s) PO or per feeding tube BID 08/21/2015 12/18/2015 Inactive Carafate 100 mg/mL oral suspension RxNorm: 729824 10 Mi lliliter(s) Miscellaneous per feeding tube AC & HS 08/21/2015 09/19/2015 Inactive Zyrtec 10 mg tablet RxNorm: 7782299 1 Tablet(s) PO QD No Start Date Active diazepam 20 mg rectal kit RxNorm: 760897 RTL as needed No Start Date Active Lortab Elixir 10 mg-300 mg/15 mL oral solution RxNorm: 14606 45 8 PO Q6-8H as needed No Start Date Active ondansetron HCl 4 mg/5 mL oral solution RxNorm: 172910 10 Milliliter(s) PO as needed and through tube No Start Date Active sertraline 50 mg tablet RxNorm: 184024 1 Tablet(s) PO QD No Start D ate 12/15/2015 Inactive Brittany 180 mg tablet RxNorm: 261391 1 Tablet(s) PO QD No Start Date 06/12/2018 Inactive Generlac 10 gram/15 mL oral solution RxNorm: 665758 15 Millilit er(s) PO BID No Start Date 01/22/2016 Inactive oxcarbazepine 300 mg/5 mL oral suspension RxNorm: 780453 13.5 Milliliter(s) PO QAM and 15ml in the evening No Start Date 12/15/2015 Inactive Singulair 10 mg tablet RxNorm: 470845 1 Tablet(s) PO QD No Start Da te 11/30/2016 Inactive meclizine 12.5 mg tablet RxNorm: 481002 1 Tablet(s) PO TID as needed for dizziness No Start Date 09/13/2017 Inactive meclizine 12.5 mg tablet RxNorm: 333849 1 Tablet(s) PO BID No Start Date 12/12/2017 Inactive fluconazole 100 mg tablet RxNorm: 552402 1 Tablet(s) QD through PEG tube No Start Date 05/12/2016 Inactive Flomax 0.4 mg capsule RxNorm: 993715 1 Capsule(s) PO QD No Start Da te 06/12/2018 Inactive diazepam 10 mg tablet RxNorm: 298302 1 Tablet(s) PO QHS as needed N o Start Date 02/14/2017 Inactive Generlac 10 gram/15 mL oral solution RxNorm: 737277 15 Milliliter(s) PO two to three times daily No Start Date 03/02/2018 Inactive oxcarbazepine 300 mg/5 mL oral suspension RxNorm: 058123 15 Milliliter(s) PO BID No Start Date 12/15/2017 Inactive Medication Administered No Medication Administered data Immunizations Vaccine Codes Date Status Influenza CVX: 141 04/21/2019 Results No Results data Procedures Procedure Codes Date DEXAMETHASONE SODIUM PHOS CPT-4: J1100 05/03/2019 THER/PROPH/DIAG INJ SC/IM CPT-4: 82687 05/03/2019 CEFTRIAXONE SODIUM INJECTION CPT-4: J0696 03/19/2016 THER/PROPH/DIAG INJ SC/IM CPT-4: 84613 03/19/2016 DEXAMETHASONE SODIUM PHOS CPT-4: J1100 11/12/2015 THER/PROPH/DIAG INJ SC/IM CPT-4: 71502 11/12/2015 CEFTRIAXONE SODIUM INJECTION CPT-4: J0696 09/20/2015 THER/PROPH/DIAG INJ SC/IM CPT-4: 49127 09/20/2015 THER/PROPH/DIAG INJ SC/IM CPT-4: 71703 09/10/2015 METHYLPREDNISOLONE 40 MG INJ CPT-4: J1030 09/10/2015 TRIAMCINOLONE ACET INJ NOS CPT-4: J3301 09/10/2015 Vital Signs Date Vital 06/12/2019 Blood Pressure 1: 112/74 Code: 8480-6 BMI: 23.2 Code: 64812-5 Heart Rate 1: 102 bpm Height: 4'5" [...] 1: 114/70 Code: 8480-6 BMI: 23.1 Code: 33429-1 Heart Rate 1: 80 bpm Height: 4'6" [...] visit Encounters Encounter Performer Location Codes Date (44000) PREV VISIT EST AGE 18-39 Diagnosis: Encounter for general adult medical examination with abnormal findings[ICD10: Z00.01] Diagnosis: Chronic pancreatitis[ICD10: K86.1] Diagnosis: Cerebral palsy, unspecified[ICD10: G80.9] [facility] 80975 06/12/2019 ([id number]) OFFICE/OUTPATIENT VISIT EST Diagnosis: Pneumonia, organism unspecified[ICD10: J18.9] Diagnosis: Breast mass, right[ICD10: N63.10] [facility]PT[facility]: 28135 05/08/2019 ([id number]) OFFICE/OUTPATIENT VISIT EST Diagnosis: Allergic rhinitis due to pollen[ICD10: J30.1] Diagnosis: Otitis media, unspecified, right ear[ICD10: H66.91] [facility]: 66146 05/03/2019 ([id number]) OFFICE/OUTPATIENT VISIT EST Diagnosis: Irritability and anger[ICD10: R45.4] Nataliia Марияsilvio Bobby [facility] CPT-[facility]: 24763 11/25/2018 ([id number]) OFFICE/OUTPATIENT VISIT EST Diagnosis: Acute suppurative otitis media without spontaneous rupture of ear drum, bilateral[ICD10: H66.003] [facility]PT[facility]: 54000 06/13/2018 ([id number]) OFFICE/OUTPATIENT VISIT EST Diagnosis: Other fatigue[ICD10: R53.83] Diagnosis: Anuria and oliguria[ICD10: R34] Diagnosis: Acute gastritis without bleeding[ICD10: K29.00] Fatou CASTILLO [facility] CPT-4: 99732 01/04/2018 ([id number]) OFFICE/OUTPATIENT VISIT EST Diagnosis: Acute bronchitis, unspecified[ICD10: J20.9] Fatou ARANGO [facility] CPT-4: 56103 12/31/2017 ([id number]) PREV VISIT EST AGE 18-39 Diagnosis: Encounter for general adult medical examination without abnormal findings[ICD10: Z00.00] Diagnosis: Severe intellectual disabilities[ICD10: F72] Diagnosis: Allergic rhinitis due to pollen[ICD10: J30.1] Diagnosis: Epilepsy, unspecified, intractable, without status epilepticus[ICD10: G40.919] Diagnosis: Gastro-esophageal reflux disease without esophagitis[ICD10: K21.9] [facility] CPT-[facility]: 16363 12/14/2017 ([id number]) OFFICE/OUTPATIENT VISIT EST Diagnosis: Allergic rhinitis due to pollen[ICD10: J30.1] Diagnosis: Epilepsy, unspecified, intractable, without status epilepticus[ICD10: G40.919] [facility]: 57613 12/02/2017 ([id number]) OFFICE/OUTPATIENT VISIT EST Diagnosis: Other allergic rhinitis[ICD10: J30.89] Fatou CERON Alicia [facility] CPT-[facility]: 84064 10/12/2017 OFFICE/OUTPATIENT VISIT EST Diagnosis: Acute suppurative otitis media without spontaneous rupture of ear drum, recurrent, left ear[ICD10: H66.005] Diagnosis: Epilepsy, unspecified, intractable, without status epilepticus[ICD10: G40.919] Diagnosis: Hesitancy of micturition[ICD10: R39.11] [facility]: 59687 09/17/2017 OFFICE/OUTPATIENT VISIT EST Diagnosis: Otitis media, unspecified, left ear[ICD10: H66.92] [facility] 19635 08/06/2017 ([id number]) OFFICE/OUTPATIENT VISIT EST Diagnosis: Vertigo of central origin, 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.49] Diagnosis: Dizziness and giddiness[ICD10: R42] [facility] 24313 04/01/2017 OFFICE/OUTPATIENT VISIT EST Diagnosis: Vomiting, unspecified[ICD10: R11.10] Diagnosis: 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)[ICD10: K56.5] Diagnosis: Personal history of urinary calculi[ICD10: Z87.442] Emely HobbsSanchez [facility] CPT[facility]: 18990 03/01/2017 ([id number]) OFFICE/OUTPATIENT VISIT EST Diagnosis: Allergic rhinitis due to pollen[ICD10: J30.1] Diagnosis: Acute and subacute allergic otitis media (mucoid) (sanguinous) (serous), left ear[ICD10: H65.112] [facility]ily [facility] CPT-[facility]: 23780 11/10/2016 ([id number]) OFFICE/OUTPATIENT VISIT EST Diagnosis: 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] Diagnosis: Unspecified ovarian cyst, right side[ICD10: N83.201] Diagnosis: Cyst of kidney, 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] Keily CERON Alicia [facility] CPT[facility]: 95411 08/13/2016 ([id number]) OFFICE/OUTPATIENT VISIT EST Diagnosis: Rash and other nonspecific skin eruption[ICD10: R21] Aziza Magallanes KEILY Bobby [facility] CPT-4: 89093 03/27/2016 ([id number]) OFFICE/OUTPATIENT VISIT EST Diagnosis: Urinary tract infection, site not specified[ICD10: N39.0] [facility]PT[facility]: 68047 03/23/2016 ([id number]) OFFICE/OUTPATIENT VISIT EST Diagnosis: Retention of urine, unspecified[ICD10: R33.9] Diagnosis: Dysuria[ICD10: R30.0] Diagnosis: Constipation, unspecified[ICD10: K59.00] Aziza LAWTON Diamante [facility] CPT-4: 18114 03/19/2016 ([id number]) OFFICE/OUTPATIENT VISIT EST Diagnosis: Acute sinusitis, unspecified[ICD10: J01.90] Keily Bobby [facility] CPT-4: 47247 03/02/2016 OFFICE/OUTPATIENT VISIT EST Diagnosis: Other fatigue[ICD10: R53.83] Diagnosis: Retention of urine, unspecified[ICD10: R33.9] Diagnosis: Dysuria[ICD10: R30.0] Diagnosis: Generalized abdominal pain[ICD10: R10.84] 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] [facility]: 87827 02/24/2016 ([id number]) OFFICE/OUTPATIENT VISIT EST Diagnosis: Chronic mucoid otitis media, right ear[ICD10: H65.31] Diagnosis: Allergic rhinitis, unspecified[ICD10: J30.9] Diagnosis: 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] [facility] CPT-[facility]: 67483 12/16/2015 ([id number]) OFFICE/OUTPATIENT VISIT EST Diagnosis: Allergic rhinitis, unspecified[ICD10: J30.9] Diagnosis: Acute recurrent sinusitis, unspecified[ICD10: J01.91] [facility] CPT[facility]: 71020 11/12/2015 ([id number]) OFFICE/OUTPATIENT VISIT EST Diagnosis: Other seasonal allergic rhinitis[ICD10: J30.2] Diagnosis: Nausea with vomiting, unspecified[ICD10: R11.2] Diagnosis: Epigastric pain[ICD10: R10.13] [facility] CPT-4: 33389 10/16/2015 OFFICE/OUTPATIENT VISIT EST Diagnosis: Encounter for follow-up examination after completed treatment for conditions other than malignant neoplasm[ICD10: Z09] Diagnosis: Generalized abdominal pain[ICD10: R10.84] Keily Bobby [facility] CPT-4: 81205 09/23/2015 ([id number]) OFFICE/OUTPATIENT VISIT EST Diagnosis: Otitis media, unspecified, right ear[ICD10: H66.91] Diagnosis: Constipation, unspecified[ICD10: K59.00] Diagnosis: Allergic rhinitis, unspecified[ICD10: J30.9] [facility] CPT[facility]: 37432 09/20/2015 OFFICE/OUTPATIENT VISIT EST Diagnosis: Allergic rhinitis, unspecified[ICD10: J30.9] Diagnosis: Unspecified perforation of tympanic membrane, right ear[ICD10: H72.91] Bibiana LÓPEZQUELINE S. ORENDOFELIA HURLEY [facility] CPT-4: 31637 09/10/2015 OFFICE/OUTPATIENT VISIT NEW Diagnosis: Epilepsy, unspecified, intractable, without status epilepticus[ICD10: G40.919] Diagnosis: Gastric ulcer, unspecified as acute or chronic, without hemorrhage or perforation[ICD10: K25.9] Diagnosis: Severe intellectual disabilities[ICD10: F72] Keily LINARES ThorAlicia CONCHITA HURLEY [facility] CPT-4: 44634 08/21/2015 Plan of Care Planned Activity Notes Codes Status Date Visit Diagnosis Plan: Chronic pancreatitis Discussion: Continue zenpep and recheck CMP with amylase/lipase in 1 month ICD-9 : 577.1 ICD-10 : K86.1 06/12/2019 Appointment: Keily Arango WPtel: [phone] [facility] Annual Well Visit 06/12/2019 Visit Diagnosis [...] : J18.9 05/08/2019 Appointment: Keily Arango WPtel: [facility] [facility] [facility] Follow Up 05/08/2019 Visit Diagnosis [...] ICD-10 : J30.1 05/03/2019 Appointment: Fatou Onofre [address] [place] [address] ACUTE ILLNESS 05/03/2019 Patient Education: amoxicillin- [employer] Coupon [phone] [email or web address]/[email or web address] Completed 05/03/2019 Visit Diagnosis Plan: Irritability and [...] ICD-10 : R45.4 11/25/2018 Appointment: Nataliia Hsieh [address] [place] [address] ACUTE ILLNESS 11/25/2018 Visit Diagnosis Plan: Acute suppurative otitis media without spontaneous rupture of ear drum, bilateral Discussion: cefdinir for 10 days. if wor sening symptoms later this week, call clinic. push fluids and tylenol/ibuprofen prn pain or fever. ICD-9 : 382.00 ICD-10 : H66.003 06/13/2018 Appointment: Fatou Onofre [address] [place] [address] ACUTE ILLNESS 06/13/2018 Visit Diagnosis Plan: Anuria [...] ICD-10 : R53.83 01/04/2018 Appointment: Fatou Onofre [address] [place] [address] ACUTE ILLNESS 01/04/2018 Patient Education: Patient Medication Summary Completed 01/04/2018 Visit Diagnosis Plan: Acute bronchitis, unspecified Di scussion: zithromax prescribed to take as directed. continue with allergy meds including flonase to help dry congestion. call office next week if new or worsening symptoms. ICD-9 : 466.0 ICD-10 : J20.9 12/31/2017 Appointment: Fatou Onofre [address] [place] [address] ACUTE ILLNESS 12/31/2017 Patient Education: Patient Medication Summary Completed 12/31/2017 Visit Diagnosis Plan: Epilepsy, unspecif ied, intractable, without status epilepticus Discussion: Stable on current regimen ICD-9 : 345.91 ICD-10 : G40.919 12/14/2017 Visit Diagnosis Plan: Encounter for [facility] medical examination without abnormal findings Discussion: Had recent lab done Follow Up: 3 months ICD-9 : V70.9 ICD-10 : Z00.00 12/14/2017 Visit Diagnosis Plan: Allergic rhinitis due to pollen Discussion: Continue current meds Change night time protonix to pepcid for total histamine blockade ICD-9 : 477.9 ICD-10 : J30.1 12/14/2017 Appointment: Keily Arango WPtel: [address] [place] [address] CHECK UP 12/14/2017 Patient Education: Patient Medication Summary Completed 12/14/2017 Visit Diagnosis Plan: Allergic rhinitis due to pollen Discussion: Prednisilone taper and will see if symptoms improved ICD-9 : 477.9 ICD-10 : J30.1 12/02/2017 Visit Diagnosis Plan: Epilepsy, unspecif ied, intractable, without status epilepticus Discussion: Lab discussed If any infecti on, looks viral with WBC count being minimally decreased--will see if improves with above treatment and have fwup in 2weeks ICD-9 : 345.91 ICD-10 : G40.919 12/02/2017 Appointment: Keily Arango WPtel: [facility] [address] ACUTE ILLNESS 12/02/2017 Patient Education: Patient Medication Summary Completed 12/02/2017 Visit Diagnosis Plan: Other allergic rhinitis Discussi on: symptoms most likely caused from allergies. patient sent to hospital for decadron injection. instructed to restart patient's flonase at home. if new or worsening symptoms, call or rtc. ICD-9 : 477.8 ICD-10 : J30.89 10/12/2017 Appointment: Fatou Onofre [address] [place] [address] ACUTE ILLNESS 10/12/2017 Patient Education: Patient Medication Summary Completed 10/12/2017 Visit Diagnosis Plan: Acute suppurative otitis media without spontaneous rupture of ear drum, recurrent, left ear Discussion: bactrim ds bid for 10 days t o be given to cover for ear infection and uti. ICD-9 : 382.00 ICD-10 : H66.005 09/17/2017 Visit Diagnosis Plan: Epilepsy, unspecif ied, [...] ICD-9 : 345.91 ICD-10 : G40.919 09/17/2017 Visit Diagnosis Plan: Hesitancy of micturition Discuss ion: bactrim ds bid for 10 days to cover uti and ear infection, no need for straight cath at this time but if no improvement, will perform straight cath. if worsening symptoms, go to ED. ICD-9 : 788.64 ICD-10 : R39.11 09/17/2017 Appointment: Fatou Onofre [address] [place], [place] [address] ACUTE ILLNESS 09/17/2017 Patient Education: Patient Medication Summary Completed 09/17/2017 Visit Diagnosis Plan: Otitis media, unspecified, left ear Discussion: cefdinir prescribed daily for 10 days. instructed to administer tylenol/ibuprofen for pain or fever. if no improvement, or worsening symptoms, call or rtc. ICD-9 : 380.14 ICD-10 : H66.92 08/06/2017 Appointment: Fatou Onofre [address] [place] [address] ACUTE ILLNESS 08/06/2017 Patient Education: Patient Medication Summary Completed 08/06/2017 Patient Education: Patient Medication Summary Completed 08/02/2017 Patient Education: Patient Medication Summary Completed 04/21/2017 Care Plan: MRI BRAIN STEM W/O DYE LOINC : 47725-1 Pending 04/21/2017 Patient Education: Patient Medication Summary Completed 04/20/2017 Care Plan: MRI BRAIN STEM W/O DYE LOINC : 56163-9 Pending 04/20/2017 Visit Diagnosis Plan: Vertigo of central origin, unspe cified ear Discussion: Continue meclizine at 12.5mg po BID for 2 more weeks then go to 12.5mg daily for 2 weeks then 6.25mg daily for 2 weeks then stop Notify if any symptoms return with weaning process ICD-9 : 386.2 ICD-10 : H81.49 04/01/2017 Appointment: Keily Arango [facility]Ptel: [phone] [facility] 04/01/2017 Patient Education: Patient Medication Summary Completed 04/01/2017 Patient Education: Patient Medication Summary Completed 03/09/2017 Care Plan: CT HEAD/BRAIN W/O DYE LOINC : 28681-6 Pending 03/09/2017 Visit Plan: It's difficult to [...] indicated. 03/01/2017 Appointment: [facility]dz [phone] [facility] 03/01/2017 Patient Education: Patient Medication Summary Completed 03/01/2017 Patient Education: Patient Medication Summary Completed 12/17/2016 Visit Diagnosis Plan: Allergic rhinitis due to pollen Discussion: Continue zyrtec/singulair ICD-9 : 477.9 ICD-10 : J30.1 11/10/2016 Visit Diagnosis Plan: Acute and subacute allergic otitis media (mucoid) (sanguinous) (serous), left ear Discussion: Everettthromax ICD-9 : 381.05 ICD-10 : H65.112 11/10/2016 Appointment: Keily Arango WPtel: [phone] ACUTE ILLNESS 11/10/2016 Patient Education: Patient Medication Summary Completed 11/10/2016 Patient Education: Patient Medication Summary Completed 09/07/2016 Care Plan: URINALYSIS AUTO W/O SCOPE [place] : 65507-6 Pending 09/07/2016 Visit Diagnosis Plan: Unspecified ovarian [...] : N20.0 08/13/2016 Appointment: Keily Arango WPtel: [facility] [address] 08/12 confirmed-sp FOLLOW UP 08/13/2016 Patient Education: Patient Medication Summary Completed 08/13/2016 Patient Education: Patient Medication Summary Completed 05/19/2016 Care Plan: X-RAY EXAM OF FOOT left foot LOINC : 26 095-0 Pending 05/19/2016 Visit Plan: Discussed with Dr Conchita MAGANA C to be drawn Order sent to Will call with results 03/27/2016 Appointment: Aziza Magallanes [phone] ACUTE ILLNESS 03/27/2016 Patient Education: Patient Medication Summary Completed 03/27/2016 Visit Plan: Go for dose of rocephin 1gm IM today and tomorrow then done Diflucan 150mg x1 today Discussed with mom via phone about urology fwup--she will talk with her and let us know 03/23/2016 Appointment: Keily Arango [facility]Ptel: [phone] [address] 03/23 confirmed ~sl FOLLOW UP 03/23/2016 Patient Education: Patient Medication Summary Completed 03/23/2016 Visit Plan: Per Dr Arango, straight cat h for UA and culture today Ok to have a standing order for further UA needs at for straight cath Rocephin IM today and daily through Wednesday Mom has arranged a family friend that is an PATIENT PARTNER to give Wednesday and Sundays injections - [...] let us know 03/19/2016 Appointment: Aziza Magallanes [address] [place], [place] [address] ACUTE ILLNESS 03/19/2016 Patient Education: Patient Medication Summary Completed 03/19/2016 Visit Plan: 1 more week of cefdinir 03/02/2016 Appointment: Keily Arango WPtel: [phone] [address] 03/02 confirmed~sl WORK IN 03/02/2016 Patient Education: [...] seen if worsening 02/24/2016 Appointment: Aziza Magallanes [address] [facility] ACUTE ILLNESS 02/24/2016 Patient Education: Patient Medication Summary Completed 02/24/2016 Care Plan: CHEST X-RAY 2VW FRONTAL&LATL LOINC : 77424-4 Pending 02/24/2016 Care Plan: X-RAY EXAM OF ABDOMEN LOINC : 49541-9 Pending 02/24/2016 Visit Plan: Repeat zithromax x1 week Cip rodex to right ear x1 week Add Pepcid q HS x2-4 weeks for total histamine blockade and for extra stomach protection while on zithromax 12/16/2015 Appointment: Keily Arango WPtel: [phone] US 6/9 lm~sl 6/10 lm ~sl FOLLOW UP 12/16/2015 Patient Education: Patient Medication Summary Completed 12/16/2015 Patient Education: [facility] - Saving AutoInj - Sertraline HCL - 18-64 - Dynamic Portal ID Completed 12/16/2015 Visit Plan: Saline nasal flushes prn. Ty lenol/Motrin prn headache. Notify if persists/symptoms worsens Dexamethasone given 11/12/2015 Appointment: Keily Arango WPtel: [phone] US 5/9 lm~sl 5/10 lm~sl 5/10 [...] for Belkys 10/16/2015 Appointment: Aziza Magallanes [address] [facility] ACUTE ILLNESS 10/16/2015 Patient Education: Patient Medication Summary Completed 10/16/2015 Appointment: Aziza Magallanes [address] [facility] US canceled, feeling better CANCELED 016 Visit Plan: No further abx needed Go mariela k to [facility] for next 3 days and restart carafate Notify if abdominal pain worsens 09/23/2015 Appointment: Keily Arango WPtel: [phone] 09/19 confirmed-sp FOLLOW UP 09/23/2015 Patient [...] done in the past. Order sent to [facility] since [facility] does not have in stock. [...] try for now. 09/20/2015 Appointment: Aziza Magallanes [address] [facility] ACUTE ILLNESS 09/20/2015 Patient Education: Patient Medication Summary Completed 09/20/2015 Visit Plan: Depo Medrol 40mg/ Kenalog 40 mg IM today Resume Ciprodex otic gtts. bid to Rt. ear 09/10/2015 Appointment: Bibiana Garg [facility]el[phone] 09/08 confirmed-sp ACUTE ILLNESS 09/10/2015 Patient Education: Patient Medication Summary Completed 09/10/2015 Visit Plan: Increase Protonix to 40mg po BID for 1month Continue carafate at q AC dosing for full month then wean off Jevity for 2 more days then advance diet if able Continue current meds 08/21/2015 Appointment: Keily Arango WPtel: [phone] [facility] NEW PATIENT 08/21/2015 Patient Education: [...] arranged a family friend that is an PATIENT PARTNER to give Wednesday and Sundays injections - [...] done in the past. Order sent to [facility] since [facility] does not have in stock. [...]
--- OUTSIDE RECORDS SUMMARY | 2019-11-10 19:42 | XMS REPORT | CCD ---
Author Author Belkys Arango D.O. 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 Name Role Phone Keily Arango D.O., PP Unavailable CCM Unavailable Summary Purpose Interface Exchange Insurance Providers Payer name Policy type / Coverage type Covered republican ID Effective Begin Date Effective End Date [employer] [facility] [place] Medicaid [id number] U nknown Family History Family History data not found Social History Social History Element Codes Description Effective Dates Marital status Unknown Single 08/21/2015 Employment Unknown Currently unemployed Physically handicapped 08/21/[address]: 007671412 Has never smoked or chewed tobacco 08/21/[address]: 901810126 Never drinks alcohol 2015 Allergies, Adverse Reactions, [...] unit-126,000 unit-168,000 unit capsule,d elayed release RxNorm: 4447227 1 Capsule(s) Oral AC 06/12/2019 10/10/2019 Active Zenpep 40,000 unit-126,000 unit-168,000 unit capsule,d elayed release RxNorm: 4952202 1 Capsule(s) Oral AC 05/24/2019 05/23/2019 Inactive Zenpep 40,000 unit-126,000 unit-168,000 unit capsule,d elayed release RxNorm: 0028843 1 Capsule(s) Oral AC 05/24/2019 06/11/2019 Inactive Ciprodex 0.3 %-0.1 % ear drops,suspension RxNorm: 056046 DROP(S) 4 DROP(S) OTIC BID 05/22/2019 06/18/2019 Active oxcarbazepine 300 mg/5 mL (60 mg/mL) oral suspension RxNorm: 492556 15 Milliliter(s) Oral two times a day 05/08/2019 11/03/2019 Active meclizine 12.5 mg tablet RxNorm: 001697 1 TABLET(S) PO TID NEEDE D 05/05/2019 08/02/2019 Active change in quantity Zithromax 200 mg/5 mL oral suspension RxNorm: 101295 12.5 Dilcia liter(s) Oral QD 05/04/2019 05/09/2019 Inactive amoxicillin 400 mg/5 mL oral suspension RxNorm: 571648 10 Milliliter(s) Oral two times a day 05/03/2019 05/13/2019 Inactive Singulair 10 mg tablet RxNorm: 461557 1 TABLET(S) PO QD 03/28/2019 Active Macrobid 100 mg capsule RxNorm: 603779 1 Capsule(s) PO BID 03/16/2003/22/2019 Inactive meclizine 12.5 mg tablet RxNorm: 411575 1 Tablet(s) PO TID as neede d 03/10/2019 05/04/2019 Inactive change in quantity Ciprodex 0.3 %-0.1 % ear drops,suspension RxNorm: 260365 DROP(S) 4 DROP(S) OTIC BID 03/08/2019 04/04/2019 Inactive oxcarbazepine 300 mg/5 mL (60 mg/mL) oral suspension RxNorm: 947868 15 Milliliter(s) PO BID 03/07/2019 05/07/2019 Inactive Macrobid 100 mg capsule RxNorm: 789226 1 Capsule(s) PO BID 02/21/2003/01/2019 Inactive Macrobid 100 mg capsule RxNorm: 235908 1 Capsule(s) PO BID 02/21/2002/19/2019 Inactive meclizine 12.5 mg tablet RxNorm: 247376 1 Tablet(s) PO TID as neede d 02/06/2019 03/07/2019 Inactive change in quantity Ciprodex 0.3 %-0.1 % ear drops,suspension RxNorm: 902533 DROP(S) 4 DROP(S) OTIC BID 01/30/2019 02/12/2019 Inactive diazepam 10 mg tablet RxNorm: 076243 1 Tablet(s) PO QHS as needed 0 01/27/2019 03/27/2019 Inactive sertraline 50 mg tablet RxNorm: 927996 1 Tablet(s) PO QHS 12/29/2018 06/26/2019 Active famotidine 20 mg tablet RxNorm: 335413 1 Tablet(s) PO QHS 12/29/2018 06/26/2019 Active Ciprodex 0.3 %-0.1 % ear drops,suspension RxNorm: 779817 DROP(S) 4 DROP(S) OTIC BID 12/14/2018 12/27/2018 Inactive Generlac 10 gram/15 mL oral solution RxNorm: 208217 15 Milliliter(s) PO TWO TO THREE TIMES DAILY 12/06/2018 06/03/2019 Inactive Protonix 40 mg tablet,delayed release RxNorm: 497921 1 Tablet(s) PO or per feeding tube BID 11/24/2018 05/22/2019 Inactive meclizine 12.5 mg tablet RxNorm: 309615 1 Tablet(s) PO TID as neede d 11/11/2018 02/06/2019 Inactive change in quantity Ciprodex 0.3 %-0.1 % ear drops,suspension RxNorm: 576496 DROP(S) 4 DROP(S) OTIC BID 11/08/2018 11/21/2018 Inactive diazepam 10 mg tablet RxNorm: 770157 1 Tablet(s) PO QHS as needed 0 10/21/2018 11/19/2018 Inactive Generlac 10 gram/15 mL oral solution RxNorm: 852545 Mil liliter(s) 15 MILLILITER(S) PO TWO TO THREE TIMES DAILY 10/07/2018 11/05/2018 Inacti ve Ciprodex 0.3 %-0.1 % ear drops,suspension RxNorm: 698274 DROP(S) DROP(S) 4 DROP(S) OTIC BID 08/26/2018 03/15/2019 Inactive meclizine 12.5 mg tablet RxNorm: 196105 1 TABLET(S) PO TID NEEDE D 07/25/2018 10/22/2018 Inactive change in quantity oxcarbazepine 300 mg/5 mL (60 mg/mL) oral suspension RxNorm: 747044 15 Milliliter(s) PO BID 07/08/2018 07/07/2018 Inactive oxcarbazepine 300 mg/5 mL (60 mg/mL) oral suspension RxNorm: 757219 15 Milliliter(s) PO BID 07/08/2018 01/03/2019 Inactive sertraline 50 mg tablet RxNorm: 845722 1 TABLET(S) PO QHS 07/06/2018 12/28/2018 Inactive Singulair 10 mg tablet RxNorm: 187443 1 TABLET(S) PO QD 06/24/2018 Inactive Ciprodex 0.3 %-0.1 % ear drops,suspension RxNorm: 968320 DROP(S) 4 DROP(S) OTIC BID 06/20/2018 06/19/2018 Inactive Ciprodex 0.3 %-0.1 % ear drops,suspension RxNorm: 385511 Drop(s) DROP(S) 4 DROP(S) OTIC BID 06/20/2018 07/03/2018 Inactive cefdinir 250 mg/5 mL oral suspension RxNorm: 922096 12 Milliliter(s) PO QD though PEG tube 06/13/2018 06/22/2018 Inactive famotidine 20 mg tablet RxNorm: 275834 1 Tablet(s) PO QHS 05/31/2018 11/26/2018 Inactive famotidine 40 mg/5 mL (8 mg/mL) oral suspension RxNorm: 3102 74 2.5 Milliliter(s) PO QHS 04/29/2018 06/12/2018 Inactive meclizine 12.5 mg tablet RxNorm: 094860 1 TABLET(S) PO TID NEEDE D 04/25/2018 07/23/2018 Inactive change in quantity Generlac 10 gram/15 mL oral solution RxNorm: 163272 Mil liliter(s) 15 MILLILITER(S) PO TWO TO THREE TIMES DAILY 04/04/2018 05/03/2018 Inacti ve Ciprodex 0.3 %-0.1 % ear drops,suspension RxNorm: 699149 Drop(s) 4 DROP(S) OTIC BID 04/04/2018 04/17/2018 Inactive diazepam 10 mg tablet RxNorm: 412413 1 Tablet(s) PO QHS as needed 1 05/03/2018 Inactive famotidine 40 mg/5 mL (8 mg/mL) oral suspension RxNorm: 3102 74 2.5 Milliliter(s) PO QHS 04/04/2018 04/28/2018 Inactive Generlac 10 gram/15 mL oral solution RxNorm: 480338 15 MILLILITER(S) PO TWO TO THREE TIMES DAILY 03/24/2018 04/03/2018 Inactive Singulair 10 mg tablet RxNorm: 144559 1 TABLET(S) PO QD 03/18/2018 Inactive Ciprodex 0.3 %-0.1 % ear drops,suspension RxNorm: 512785 Drop(s) 4 DROP(S) OTIC BID 03/08/2018 03/21/2018 Inactive Generlac 10 gram/15 mL oral solution RxNorm: 269988 15 Milliliter(s) PO two to three times daily 03/03/2018 03/23/2018 Inactive meclizine 12.5 mg tablet RxNorm: 261963 1 Tablet(s) PO TID as neede d 02/10/2018 04/10/2018 Inactive change in quantity meclizine 12.5 mg tablet RxNorm: 849195 1 Tablet(s) PO BID as neede d 02/07/2018 02/09/2018 Inactive change in quantity Ciprodex 0.3 %-0.1 % ear drops,suspension RxNorm: 883213 Drop(s) 4 DROP(S) OTIC BID 02/02/2018 03/08/2018 Inactive sertraline 50 mg tablet RxNorm: 188861 1 TABLET(S) PO QHS 01/25/2018 07/05/2018 Inactive Zithromax 200 mg/5 mL oral suspension RxNorm: 803783 12.5 Dilcia liter(s) PO QD 12/31/2017 01/04/2018 Inactive Pepcid 20 mg tablet RxNorm: 956053 TABLET(S) 1 TABLET(S) PO QHS 04/29/2018 Inactive famotidine 40 mg/5 mL (8 mg/mL) oral suspension RxNorm: 3102 74 2.5 Milliliter(s) PO QHS 12/28/2017 12/27/2017 Inactive famotidine 40 mg/5 mL (8 mg/mL) oral suspension RxNorm: 3102 74 2.5 Milliliter(s) PO QHS 12/28/2017 04/03/2018 Inactive Ciprodex 0.3 %-0.1 % ear drops,suspension RxNorm: 863575 Drop(s) 4 DROP(S) OTIC BID 12/27/2017 02/02/2018 Inactive meclizine 12.5 mg tablet RxNorm: 716908 1 Tablet(s) PO BID as neede d 12/23/2017 02/06/2018 Inactive change in quantity Protonix 40 mg tablet,delayed release RxNorm: 302859 1 Tablet(s) PO or per feeding tube BID 12/16/2017 07/13/2018 Inactive oxcarbazepine 300 mg/5 mL (60 mg/mL) oral suspension RxNorm: 254643 15 Milliliter(s) PO BID 12/16/2017 07/08/2018 Inactive meclizine 12.5 mg tablet RxNorm: 126912 1 Tablet(s) PO BID as neede d 12/15/2017 02/07/2018 Inactive change in quantity Pepcid 40 mg/5 mL (8 mg/mL) oral suspension RxNorm: 575583 5 Milliliter(s) PO QHS to replace nighttime pantoprazole dose 12/14/2017 12/27/2017 Inact марина meclizine 12.5 mg tablet RxNorm: 964148 1 Tablet(s) PO BID as neede d 12/13/2017 12/23/2017 Inactive diazepam 10 mg tablet RxNorm: 935679 1 Tablet(s) PO QHS as needed 0 12/02/2017 03/01/2018 Inactive prednisolone 15 mg/5 mL oral solution RxNorm: 811762 5 Milliliter(s) PO BID for 3 days then 5ml daily for 3 days then 2.5ml daily for 3 days 12/02/2017 12/13/2017 Inactive sertraline 50 mg tablet RxNorm: 218427 1 Tablet(s) PO QHS 11/04/2017 01/24/2018 Inactive Ciprodex 0.3 %-0.1 % ear drops,suspension RxNorm: 171640 Drop(s) 4 DROP(S) OTIC BID 10/18/2017 10/31/2017 Inactive Ciprodex 0.3 %-0.1 % ear drops,suspension RxNorm: 161506 Drop(s) 4 DROP(S) OTIC BID 10/18/2017 12/27/2017 Inactive Singulair 10 mg tablet RxNorm: 342500 1 Tablet(s) PO QD 09/30/2017 Inactive diazepam 5 mg/5 mL (1 mg/mL) oral solution RxNorm: 772933 2.5 Milliliter(s) PO QD give additional 5 mg dose if seizure occurs 09/17/2017 No Stop Date A ctive Bactrim DS 800 mg-160 mg tablet RxNorm: 535031 1 Tablet(s) PO BID 0 09/17/2017 09/23/2017 Inactive Ciprodex 0.3 %-0.1 % ear drops,suspension RxNorm: 239154 4 DROP (S) OTIC BID 09/13/2017 10/18/2017 Inactive cefdinir 250 mg/5 mL oral suspension RxNorm: 577258 12 Milliliter(s) PO QD though PEG tube 08/06/2017 08/15/2017 Inactive sertraline 50 mg tablet RxNorm: 753159 1 Tablet(s) PO QHS 08/02/2017 11/04/2017 Inactive Ciprodex 0.3 %-0.1 % ear drops,suspension RxNorm: 593091 4 DROP (S) OTIC BID 07/22/2017 08/11/2017 Inactive Singulair 10 mg tablet RxNorm: 802869 1 Tablet(s) PO QD 06/30/2017 Inactive diazepam 10 mg tablet RxNorm: 548409 TAKE 1 TABLET BY M OUTH EVERY NIGHT AT BEDTIME NEEDED 06/04/2017 07/03/2017 Inactive oxcarbazepine 300 mg/5 mL (60 mg/mL) oral suspension RxNorm: 782398 15 MILLILITER(S) PO BID 05/03/2017 12/16/2017 Inactive sertraline 50 mg tablet RxNorm: 083744 1 Tablet(s) PO QHS 05/03/2017 08/02/2017 Inactive Protonix 40 mg tablet,delayed release RxNorm: 735056 1 Tablet(s) PO or per feeding tube BID 04/26/2017 12/16/2017 Inactive Ciprodex 0.3 %-0.1 % ear drops,suspension RxNorm: 995282 4 DROP (S) OTIC BID 04/26/2017 05/23/2017 Inactive Generlac 10 gram/15 mL oral solution RxNorm: 524310 Mil liliter(s) TAKE 15 ML BY MOUTH TWO-THREE TIMES DAILY 04/08/2017 03/03/2018 Inactive Singulair 10 mg tablet RxNorm: 021950 1 Tablet(s) PO QD 03/03/2017 Inactive diazepam 10 mg tablet RxNorm: 668636 1 Tablet(s) PO QHS as needed 0 02/15/2017 06/04/2017 Inactive Singulair 10 mg tablet RxNorm: 616106 1 Tablet(s) PO QD 12/01/2016 Inactive Diflucan 150 mg tablet RxNorm: 923261 Tablet(s) Give 1 tab PO now and then repeat dose in 5 days 11/10/2016 03/31/2017 Inactive Zithromax 200 mg/5 mL oral suspension RxNorm: 218917 12.5 Dilcia liter(s) PO QD 11/10/2016 11/14/2016 Inactive Singulair 10 mg tablet RxNorm: 644703 TAKE 1 TABLET BY MOUTH ON CE DAILY 11/02/2016 12/01/2016 Inactive diazepam 10 mg tablet RxNorm: 954293 TAKE 1 TABLET BY M OUTH EVERY NIGHT AT BEDTIME NEEDED 10/21/2016 11/19/2016 Inactive sertraline 50 mg tablet RxNorm: 649902 1 Tablet(s) PO QHS 10/12/2016 01/09/2017 Inactive fluconazole 100 mg tablet RxNorm: 667753 1 Tablet(s) PO QD 09/23/19 17 09/24/2016 Inactive fluconazole 100 mg tablet RxNorm: 307425 1 Tablet(s) PO QD 09/23/19 17 09/21/2016 Inactive Bactrim DS 800 mg-160 mg tablet RxNorm: 668042 1 Tablet(s) PO BID 0 09/10/2016 09/09/2016 Inactive Bactrim DS 800 mg-160 mg tablet RxNorm: 033810 1 Tablet(s) PO BID 0 09/10/2016 09/16/2016 Inactive oxcarbazepine 300 mg/5 mL (60 mg/mL) oral suspension RxNorm: 486811 15 Milliliter(s) PO BID 09/07/2016 03/05/2017 Inactive sertraline 50 mg tablet RxNorm: 929124 1 Tablet(s) PO QHS 07/06/2016 10/03/2016 Inactive Pepcid 20 mg tablet RxNorm: 671886 Tablet(s) 1 TABLET(S) PO QHS 08/201603/08/2017 Inactive sertraline 50 mg tablet RxNorm: 206848 1 Tablet(s) PO QHS 06/08/2016 05/03/2017 Inactive Generlac 10 gram/15 mL oral solution RxNorm: 280360 Mil liliter(s) TAKE 15 ML BY MOUTH TWO-THREE TIMES DAILY 06/08/2016 09/08/2016 Inactive Pepcid 20 mg tablet RxNorm: 852968 1 TABLET(S) PO QHS 06/04/201607/2016 Inactive fluconazole 100 mg tablet RxNorm: 703930 1 Tablet(s) QD through PEG tube 05/13/2016 12/01/2017 Inactive Diflucan 150 mg tablet RxNorm: 748940 Give 1 tab PO now and then repeat dose in 5 days 03/19/2016 11/09/2016 Inactive ceftriaxone 1 gram solution for injection RxNorm: 7888857 1 Gram(s) IM QD Wednesday and Wednesday03/19/2016 11/09/2016 Inactive lidocaine 10 mg/mL (1 %) injection solution RxNorm: 8396105 Use as directed to reconstitute Rocephin when needed 03/19/2016 12/13/2017 Inactive Generlac 10 gram/15 mL oral solution RxNorm: 303095 JOE E 15 ML BY MOUTH TWO- THREE TIMES DAILY 03/19/2016 06/07/2016 Inactive oxcarbazepine 300 mg/5 mL oral suspension RxNorm: 332790 15 Milliliter(s) PO BID 03/13/2016 09/07/2016 Inactive Ciprodex 0.3 %-0.1 % ear drops,suspension RxNorm: 141683 4 DROP (S) OTIC BID 03/09/2016 03/15/2016 Inactive cefdinir 250 mg/5 mL oral suspension RxNorm: 272919 11. 75 Milliliter(s) PO QD though PEG tube 03/02/2016 03/08/2016 Inactive cefdinir 250 mg/5 mL oral suspension RxNorm: 993605 11. 75 Milliliter(s) PO QD though PEG tube 02/24/2016 03/01/2016 Inactive cefdinir 250 mg/5 mL oral suspension RxNorm: 088794 11. 75 Milliliter(s) PO QD though PEG tube 02/24/2016 02/23/2016 Inactive Ciprodex 0.3 %-0.1 % ear drops,suspension RxNorm: 966884 4 Drop (s) OTIC BID 02/24/2016 03/01/2016 Inactive Generlac 10 gram/15 mL oral solution RxNorm: 087263 JOE E 15 ML BY MOUTH TWICE DAILY 02/17/2016 03/18/2016 Inactive Generlac 10 gram/15 mL oral solution RxNorm: 460563 15 Millilit er(s) PO BID 01/23/2016 02/16/2016 Inactive Pepcid 20 mg tablet RxNorm: 757213 1 TABLET(S) PO QHS 01/13/201605/07 Inactive Ciprodex 0.3 %-0.1 % ear drops,suspension RxNorm: 695927 4 Drop (s) OTIC BID 12/23/2015 12/29/2015 Inactive sertraline 50 mg tablet RxNorm: 465881 1 Tablet(s) PO QHS 12/16/2015 06/07/2016 Inactive Zithromax 500 mg tablet RxNorm: 702495 1 Tablet(s) PO QD 12/16/2015 0 12/22/2015 Inactive Pepcid 20 mg tablet RxNorm: 407458 1 Tablet(s) PO QHS 12/16/201501/02 Inactive Zithromax 500 mg tablet RxNorm: 992314 1 Tablet(s) PO QD 11/12/2015 0 11/18/2015 Inactive Singulair 10 mg tablet RxNorm: 557492 1 Tablet(s) PO BID 10/16/2015 0 11/11/2015 Inactive diazepam 10 mg tablet RxNorm: 287290 1 Tablet(s) PO QHS 10/07/2015 Inactive diazepam 10 mg tablet RxNorm: 896573 1 Tablet(s) PO QHS 10/07/2015 Inactive fexofenadine 30 mg/5 mL oral suspension RxNorm: 317833 10 Milliliter(s) PO one to two times daily PRN allergies 09/20/2015 12/15/2015 Inactive ceftriaxone 1 gram solution for injection RxNorm: 7439268 1 Gram (s) IM QD 09/20/2015 09/21/2015 Inactive Ciprodex 0.3 %-0.1 % ear drops,suspension RxNorm: 160077 4 Drop (s) OTIC BID 09/20/2015 10/03/2015 Inactive Protonix 40 mg tablet,delayed release RxNorm: 669069 1 Tablet(s) PO or per feeding tube BID 08/21/2015 12/18/2015 Inactive Carafate 100 mg/mL oral suspension RxNorm: 817062 10 Mi lliliter(s) Miscellaneous per feeding tube AC & HS 08/21/2015 09/19/2015 Inactive Zyrtec 10 mg tablet RxNorm: 6442781 1 Tablet(s) PO QD No Start Date Active diazepam 20 mg rectal kit RxNorm: 511530 RTL as needed No Start Date Active Lortab Elixir 10 mg-300 mg/15 mL oral solution RxNorm: 01593 45 8 PO Q6-8H as needed No Start Date Active ondansetron HCl 4 mg/5 mL oral solution RxNorm: 875807 10 Milliliter(s) PO as needed and through tube No Start Date Active sertraline 50 mg tablet RxNorm: 021463 1 Tablet(s) PO QD No Start D ate 12/15/2015 Inactive Brittany 180 mg tablet RxNorm: 566803 1 Tablet(s) PO QD No Start Date 06/12/2018 Inactive Generlac 10 gram/15 mL oral solution RxNorm: 197981 15 Millilit er(s) PO BID No Start Date 01/22/2016 Inactive oxcarbazepine 300 mg/5 mL oral suspension RxNorm: 098650 13.5 Milliliter(s) PO QAM and 15ml in the evening No Start Date 12/15/2015 Inactive Singulair 10 mg tablet RxNorm: 343558 1 Tablet(s) PO QD No Start Da te 11/30/2016 Inactive meclizine 12.5 mg tablet RxNorm: 826469 1 Tablet(s) PO TID as needed for dizziness No Start Date 09/13/2017 Inactive meclizine 12.5 mg tablet RxNorm: 107367 1 Tablet(s) PO BID No Start Date 12/12/2017 Inactive fluconazole 100 mg tablet RxNorm: 911590 1 Tablet(s) QD through PEG tube No Start Date 05/12/2016 Inactive Flomax 0.4 mg capsule RxNorm: 326437 1 Capsule(s) PO QD No Start Da te 06/12/2018 Inactive diazepam 10 mg tablet RxNorm: 255769 1 Tablet(s) PO QHS as needed N o Start Date 02/14/2017 Inactive Generlac 10 gram/15 mL oral solution RxNorm: 179046 15 Milliliter(s) PO two to three times daily No Start Date 03/02/2018 Inactive oxcarbazepine 300 mg/5 mL oral suspension RxNorm: 384103 15 Milliliter(s) PO BID No Start Date 12/15/2017 Inactive Medication Administered No Medication Administered data Immunizations Vaccine Codes Date Status Influenza CVX: 141 04/21/2019 Results No Results data Procedures Procedure Codes Date DEXAMETHASONE SODIUM PHOS CPT-4: J1100 05/03/2019 THER/PROPH/DIAG INJ SC/IM CPT-4: 67754 05/03/2019 CEFTRIAXONE SODIUM INJECTION CPT-4: J0696 03/19/2016 THER/PROPH/DIAG INJ SC/IM CPT-4: 68767 03/19/2016 DEXAMETHASONE SODIUM PHOS CPT-4: J1100 11/12/2015 THER/PROPH/DIAG INJ SC/IM CPT-4: 94324 11/12/2015 CEFTRIAXONE SODIUM INJECTION CPT-4: J0696 09/20/2015 THER/PROPH/DIAG INJ SC/IM CPT-4: 65380 09/20/2015 THER/PROPH/DIAG INJ SC/IM CPT-4: 93463 09/10/2015 METHYLPREDNISOLONE 40 MG INJ CPT-4: J1030 09/10/2015 TRIAMCINOLONE ACET INJ NOS CPT-4: J3301 09/10/2015 Vital Signs Date Vital 06/12/2019 Blood Pressure 1: 112/74 Code: 8480-6 BMI: 23.2 Code: 83355-4 Heart Rate 1: 102 bpm Height: 4'5" [...] 1: 114/70 Code: 8480-6 BMI: 23.1 Code: 00078-5 Heart Rate 1: 80 bpm Height: 4'6" [...] well follow up 01/04/2018 Patient was seen t Wednesday for acute bronchitis. Patient given [...] 09/20/2015 otalgia 09/10/2015 ~generic 08/21/2015 New Patient----[facility] visit Encounters Encounter Performer Location Codes Date (91448) PREV VISIT EST AGE 18-39 Diagnosis: Encounter for general adult medical examination with abnormal findings[ICD10: Z00.01] Diagnosis: Chronic pancreatitis[ICD10: K86.1] Diagnosis: Cerebral palsy, unspecified[ICD10: G80.9] Keily ARANGO DO [facility] CPT-4: 33689 06/12/2019 ([id number]) OFFICE/OUTPATIENT VISIT EST Diagnosis: Pneumonia, organism unspecified[ICD10: J18.9] Diagnosis: Breast mass, right[ICD10: N63.10] Keily ARANGO [facility] CPT-4: 90554 05/08/2019 ([id number]) OFFICE/OUTPATIENT VISIT EST Diagnosis: Allergic rhinitis due to pollen[ICD10: J30.1] Diagnosis: Otitis media, unspecified, right ear[ICD10: H66.91] Fatou ARANGO [facility] CPT-4: 47779 05/03/2019 ([id number]) OFFICE/OUTPATIENT VISIT EST Diagnosis: Irritability and anger[ICD10: R45.4] Nataliia ARANGO [facility] CPT-4: 00446 11/25/2018 ([id number]) OFFICE/OUTPATIENT VISIT EST Diagnosis: Acute suppurative otitis media without spontaneous rupture of ear drum, bilateral[ICD10: H66.003] Fatou ARANGO [facility] CPT-4: 19339 06/13/2018 ([id number]) OFFICE/OUTPATIENT VISIT EST Diagnosis: Other fatigue[ICD10: R53.83] Diagnosis: Anuria and oliguria[ICD10: R34] Diagnosis: Acute gastritis without bleeding[ICD10: K29.00] Fatou ARANGO [facility] CPT-4: 00423 01/04/2018 ([id number]) OFFICE/OUTPATIENT VISIT EST Diagnosis: Acute bronchitis, unspecified[ICD10: J20.9] Fatou ARANGO [facility] CPT-4: 77470 12/31/2017 ([id number]) PREV VISIT EST AGE 18-39 Diagnosis: Encounter for general adult medical examination without abnormal findings[ICD10: Z00.00] Diagnosis: Severe intellectual disabilities[ICD10: F72] Diagnosis: Allergic rhinitis due to pollen[ICD10: J30.1] Diagnosis: Epilepsy, unspecified, intractable, without status epilepticus[ICD10: G40.919] Diagnosis: Gastro-esophageal reflux disease without esophagitis[ICD10: K21.9] Keily Conchita [facility]ANGO [facility] CPT-4: 96150 12/14/2017 ([id number]) OFFICE/OUTPATIENT VISIT EST Diagnosis: Allergic rhinitis due to pollen[ICD10: J30.1] Diagnosis: Epilepsy, unspecified, intractable, without status epilepticus[ICD10: G40.919] [facility] C[facility]: 95135 12/02/2017 ([id number]) OFFICE/OUTPATIENT VISIT EST Diagnosis: Other allergic rhinitis[ICD10: J30.89] Fatou [facility] CPT-[facility]: 49500 10/12/2017 OFFICE/OUTPATIENT VISIT EST Diagnosis: Acute suppurative otitis media without spontaneous rupture of ear drum, recurrent, left ear[ICD10: H66.005] Diagnosis: Epilepsy, unspecified, intractable, without status epilepticus[ICD10: G40.919] Diagnosis: Hesitancy of micturition[ICD10: R39.11] [facility] CPT-[facility]: 23621 09/17/2017 OFFICE/OUTPATIENT VISIT EST Diagnosis: Otitis media, unspecified, left ear[ICD10: H66.92] Fatou Bobby [facility] CPT-4: 61969 08/06/2017 ([id number]) OFFICE/OUTPATIENT VISIT EST Diagnosis: Vertigo of central origin, 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.49] Diagnosis: Dizziness and giddiness[ICD10: R42] Keily Bobby [facility] CPT-4: 14911 04/01/2017 OFFICE/OUTPATIENT VISIT EST Diagnosis: Vomiting, unspecified[ICD10: R11.10] Diagnosis: 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)[ICD10: K56.5] Diagnosis: Personal history of urinary calculi[ICD10: Z87.442] Emely Hdz KEILY Bobby [facility] CPT-4: 06459 03/01/2017 ([id number]) OFFICE/OUTPATIENT VISIT EST Diagnosis: Allergic rhinitis due to pollen[ICD10: J30.1] Diagnosis: Acute and subacute allergic otitis media (mucoid) (sanguinous) (serous), left ear[ICD10: H65.112] [facility] CPT-4: 81563 11/10/2016 ([id number]) OFFICE/OUTPATIENT VISIT EST Diagnosis: 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] Diagnosis: Unspecified ovarian cyst, right side[ICD10: N83.201] Diagnosis: Cyst of kidney, 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] [facility] CPT-4: 02307 08/13/2016 ([id number]) OFFICE/OUTPATIENT VISIT EST Diagnosis: Rash and other nonspecific skin eruption[ICD10: R21] Aziza [facility] CPT-[facility]: 27150 03/27/2016 ([id number]) OFFICE/OUTPATIENT VISIT EST Diagnosis: Urinary tract infection, site not specified[ICD10: N39.0] [facility] CPT-[facility]: 90802 03/23/2016 ([id number]) OFFICE/OUTPATIENT VISIT EST Diagnosis: Retention of urine, unspecified[ICD10: R33.9] Diagnosis: Dysuria[ICD10: R30.0] Diagnosis: Constipation, unspecified[ICD10: K59.00] Aziza Elpidio [facility] CPT-4: 17448 03/19/2016 ([id number]) OFFICE/OUTPATIENT VISIT EST Diagnosis: Acute sinusitis, unspecified[ICD10: J01.90] [facility] CPT-[facility]: 32337 03/02/2016 OFFICE/OUTPATIENT VISIT EST Diagnosis: Other fatigue[ICD10: R53.83] Diagnosis: Retention of urine, unspecified[ICD10: R33.9] Diagnosis: Dysuria[ICD10: R30.0] Diagnosis: Generalized abdominal pain[ICD10: R10.84] 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] Aziza Magallanes KEILY Diamante [facility] CPT[facility]: 02387 02/24/2016 ([id number]) OFFICE/OUTPATIENT VISIT EST Diagnosis: Chronic mucoid otitis media, right ear[ICD10: H65.31] Diagnosis: Allergic rhinitis, unspecified[ICD10: J30.9] Diagnosis: 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] [facility]: 67331 12/16/2015 ([id number]) OFFICE/OUTPATIENT VISIT EST Diagnosis: Allergic rhinitis, unspecified[ICD10: J30.9] Diagnosis: Acute recurrent sinusitis, unspecified[ICD10: J01.91] [facility] 49332 11/12/2015 ([id number]) OFFICE/OUTPATIENT VISIT EST Diagnosis: Other seasonal allergic rhinitis[ICD10: J30.2] Diagnosis: Nausea with vomiting, unspecified[ICD10: R11.2] Diagnosis: Epigastric pain[ICD10: R10.13] [facility]: 15379 10/16/2015 OFFICE/OUTPATIENT VISIT EST Diagnosis: Encounter for follow-up examination after completed treatment for conditions other than malignant neoplasm[ICD10: Z09] Diagnosis: Generalized abdominal pain[ICD10: R10.84] [facility]ily [facility] 27359 09/23/2015 ([id number]) OFFICE/OUTPATIENT VISIT EST Diagnosis: Otitis media, unspecified, right ear[ICD10: H66.91] Diagnosis: Constipation, unspecified[ICD10: K59.00] Diagnosis: Allergic rhinitis, unspecified[ICD10: J30.9] [facility] 65908 09/20/2015 OFFICE/OUTPATIENT VISIT EST Diagnosis: Allergic rhinitis, unspecified[ICD10: J30.9] Diagnosis: Unspecified perforation of tympanic membrane, right ear[ICD10: H72.91] [facility] CPT[facility]: 12514 09/10/2015 OFFICE/OUTPATIENT VISIT NEW Diagnosis: Epilepsy, unspecified, intractable, without status epilepticus[ICD10: G40.919] Diagnosis: Gastric ulcer, unspecified as acute or chronic, without hemorrhage or perforation[ICD10: K25.9] Diagnosis: Severe intellectual disabilities[ICD10: F72] Keily ARANGO DO [facility] CPT-4: 18450 08/21/2015 Plan of Care Planned Activity Notes Codes Status Date Visit Diagnosis Plan: Chronic pancreatitis Discussion: Continue zenpep and recheck CMP with amylase/lipase in 1 month ICD-9 : 577.1 ICD-10 : K86.1 06/12/2019 Visit Diagnosis Plan: Breast mass, right [...] J18.9 05/08/2019 Appointment: Keily Arango [phone] [id number] [facility] Up 05/08/2019 Visit Diagnosis Plan: [...] ICD-10 : J30.1 05/03/2019 Appointment: Fatou Onofre [address] [place], [place] [id number] ACUTE ILLNESS 05/03/2019 Patient Education: amoxicillin- [employer] Coupon [phone] [email or web address]://[email or web address]/samplemd/resources/getResource/61/[email or web address] Completed 05/03/2019 Visit Diagnosis Plan: Irritability and [...] : R45.4 11/25/2018 Appointment: Nataliia Hsieh [address] ACUTE ILLNESS 11/25/2018 Visit Diagnosis Plan: Acute suppurative otitis media without spontaneous rupture of ear drum, bilateral Discussion: cefdinir for 10 days. if wor sening symptoms later this week, call clinic. push fluids and tylenol/ibuprofen prn pain or fever. ICD-9 : 382.00 ICD-10 : H66.003 06/13/2018 Appointment: Fatou Onofre [address] [place] [address] ACUTE ILLNESS 06/13/2018 Visit Diagnosis Plan: Anuria [...] ICD-10 : R53.83 01/04/2018 Appointment: Fatou Onofre [address] [place], [place] [id number] ACUTE ILLNESS 01/04/2018 Patient Education: Patient Medication Summary Completed 01/04/2018 Visit Diagnosis Plan: Acute bronchitis, unspecified Di scussion: zithromax prescribed to take as directed. continue with allergy meds including flonase to help dry congestion. call office next week if new or worsening symptoms. ICD-9 : 466.0 ICD-10 : J20.9 12/31/2017 Appointment: Fatou Onofre [address] [place], [place] [address] ACUTE ILLNESS 12/31/2017 Patient Education: Patient Medication Summary Completed 12/31/2017 Visit Diagnosis Plan: Epilepsy, unspecif ied, intractable, without status epilepticus Discussion: Stable on current regimen ICD-9 : 345.91 ICD-10 : G40.919 12/14/2017 Visit Diagnosis Plan: Encounter for [facility] adult medical examination without abnormal findings Discussion: Had recent lab done Follow Up: 3 months ICD-9 : V70.9 ICD-10 : Z00.00 12/14/2017 Visit Diagnosis Plan: Allergic rhinitis due to pollen Discussion: Continue current meds Change night time protonix to pepcid for total histamine blockade ICD-9 : 477.9 ICD-10 : J30.1 12/14/2017 Appointment: Keily Arango WPtel: [address] [place] [address] CHECK UP 12/14/2017 Patient Education: Patient Medication [...] : G40.919 12/02/2017 Appointment: Keily Arango WPtel: [address] [place] [address] ACUTE ILLNESS 12/02/2017 Patient Education: Patient Medication Summary Completed 12/02/2017 Visit Diagnosis Plan: Other allergic rhinitis Discussi on: symptoms most likely caused from allergies. patient sent to hospital for decadron injection. instructed to restart patient's flonase at home. if new or worsening symptoms, call or rtc. ICD-9 : 477.8 ICD-10 : J30.89 10/12/2017 Appointment: Fatou Onofre [address] [place] [address] ACUTE ILLNESS 10/12/2017 Patient Education: Patient Medication [...] ICD-10 : R39.11 09/17/2017 Appointment: Fatou Onofre [address] [place] [address] ACUTE ILLNESS 09/17/2017 Patient Education: Patient Medication Summary Completed 09/17/2017 Visit Diagnosis Plan: Otitis media, unspecified, left ear Discussion: cefdinir prescribed daily for 10 days. instructed to administer tylenol/ibuprofen for pain or fever. if no improvement, or worsening symptoms, call or rtc. ICD-9 : 380.14 ICD-10 : H66.92 08/06/2017 Appointment: Fatou Onofre [address] [place] [address] ACUTE ILLNESS 08/06/2017 Patient Education: Patient Medication Summary Completed 08/06/2017 Patient Education: Patient Medication Summary Completed 08/02/2017 Patient Education: Patient Medication Summary Completed 04/21/2017 Care Plan: MRI BRAIN STEM W/O DYE LOINC : 65983-9 Pending 04/21/2017 Patient Education: Patient Medication Summary Completed 04/20/2017 Care Plan: MRI BRAIN STEM W/O DYE LOINC : 87512-6 Pending 04/20/2017 Visit Diagnosis Plan: Vertigo of central origin, unspe cified ear Discussion: Continue meclizine at 12.5mg po BID for 2 more weeks then go to 12.5mg daily for 2 weeks then 6.25mg daily for 2 weeks then stop Notify if any symptoms return with weaning process ICD-9 : 386.2 ICD-10 : H81.49 04/01/2017 Appointment: Keily Arango WPtel: [id number] FOLLOW UP 04/01/2017 Patient Education: Patient Medication Summary Completed 04/01/2017 Patient Education: Patient Medication Summary Completed 03/09/2017 Care Plan: CT HEAD/BRAIN W/O DYE LOINC : 84824-0 Pending 03/09/2017 Visit Plan: It's difficult to [...] medications indicated. 03/01/2017 Appointment: Emely Hdz WPtel: [address] [place] [address] ACUTE ILLNESS 03/01/2017 Patient Education: Patient Medication Summary Completed 03/01/2017 Patient Education: Patient Medication Summary Completed 12/17/2016 Visit Diagnosis Plan: Allergic rhinitis due to pollen Discussion: Continue zyrtec/singulair ICD-9 : 477.9 ICD-10 : J30.1 11/10/2016 Visit Diagnosis Plan: Acute and subacute allergic otitis media (mucoid) (sanguinous) (serous), left ear Discussion: Zithromax ICD-9 : 381.05 ICD-10 : H65.112 11/10/2016 Appointment: Keily Arango WPtel: [id number] ACUTE ILLNESS 11/10/2016 Patient Education: Patient Medication Summary Completed 11/10/2016 Patient Education: Patient Medication Summary Completed 09/07/2016 Care Plan: URINALYSIS AUTO W/[place] : 08401-0 Pending 09/07/2016 Visit Diagnosis Plan: Unspecified ovarian [...] N20.0 08/13/2016 Appointment: Keily Arango WPtel: [phone] [id number] 08/12 confirmed-sp FOLLOW UP 08/13/2016 Patient Education: Patient Medication Summary Completed 08/13/2016 Patient Education: Patient Medication Summary Completed 05/19/2016 Care Plan: X-RAY EXAM OF FOOT left foot LOINC : 26 095-0 Pending 05/19/2016 Visit Plan: Discussed with Dr Arango CB C to be drawn Order sent to Will call with results 03/27/2016 Appointment: Aziza Magallanes [address] [id number] ACUTE ILLNESS 03/27/2016 Patient Education: Patient Medication Summary Completed 03/27/2016 Visit Plan: Go for dose of rocephin 1gm IM today and tomorrow then done Diflucan 150mg x1 today Discussed with mom via phone about urology fwup--she will talk with her and let us know 03/23/2016 Appointment: Keily [facility]ango [facility]el[phone] [id number] 03/23 confirmed ~sl FOLLOW UP 03/23/2016 Patient Education: Patient Medication Summary Completed 03/23/2016 Visit Plan: Per Dr Arango, straight cat h for UA and culture today Ok to have a standing order for further UA needs at for straight cath Rocephin IM today and daily through Wednesday Mom has arranged a family friend that is an [employer] to give Wednesday and Sundays injections - rxs for rocephin and lido sent to [facility] cannot order the lido in the qty patient needs) Dr Arango wants patient to be re-evaluated on Wednesday in clinic Referral to Urology for recurrent UTIs and urinary retention - mom wants to research who she wants her sent to and let us know 03/19/2016 Appointment: Aziza Magallanes [address] [place], [place] [id number] ACUTE ILLNESS 03/19/2016 Patient Education: Patient Medication Summary Completed 03/19/2016 Visit Plan: 1 more week of cefdinir 03/02/2016 Appointment: Keily Arango WPtel: [address] [place], [place] [id number] 03/02 confirmed~sl WORK IN 03/02/2016 Patient Education: [...] seen if worsening 02/24/2016 Appointment: Aziza Magallanes [address] [place], [place] [id number] ACUTE ILLNESS 02/24/2016 Patient Education: Patient Medication Summary Completed 02/24/2016 Care Plan: CHEST X-RAY 2VW FRONTAL&LATL LOINC : 29374-8 Pending 02/24/2016 Care Plan: X-RAY EXAM OF ABDOMEN LOINC : 84250-5 Pending 02/24/2016 Visit Plan: Repeat zithromax x1 week Cip rodex to right ear x1 week Add Pepcid q HS x2-4 weeks for total histamine blockade and for extra stomach protection while on zithromax 12/16/2015 Appointment: Keily Arango WPtel: [id number] 12/11 lm~sl 12/12 lm ~sl FOLLOW UP 12/16/2015 Patient Education: Patient Medication Summary Completed 12/16/2015 Patient Education: [facility] - Saving Auto[employer]j - Sertraline HCL - 18-64 - Dynamic Portal ID Completed 12/16/2015 Visit Plan: Saline nasal flushes prn. Ty lenol/Motrin prn headache. Notify if persists/symptoms worsens Dexamethasone given 11/12/2015 Appointment: Keily Arango WPtel: [address] [place], [place] [phone] [place] 5/ lm~sl 11/11 lm~sl 11/11 confirm-sp FOLLOW UP [...] visits for Belkys 10/16/2015 Appointment: Aziza Magallanes [address] [place], [place] [id number] ACUTE ILLNESS 10/16/2015 Patient Education: Patient Medication Summary Completed 10/16/2015 Appointment: Aziza Magallanes [address] [place], [place] [phone] [place] canceled, feeling better CANCELED 016 Visit Plan: No further abx needed Go mariela k to jevity for next 3 days and restart carafate Notify if abdominal pain worsens 09/23/2015 Appointment: Keily Arango WPtel: [id number] 09/19 confirmed-sp FOLLOW UP 09/23/2015 Patient Education: [...] sent to [facility] since [facility] does not have in [...] try for now. 09/20/2015 Appointment: Aziza Magallanes [address] [facility] ACUTE ILLNESS 09/20/2015 Patient Education: Patient Medication Summary Completed 09/20/2015 Visit Plan: Depo Medrol 40mg/ Kenalog 40 mg IM today Resume Ciprodex otic gtts. bid to Rt. ear 09/10/2015 Appointment: Bibiana Garg WPtel: [phone] [facility] 09/08 confirmed-sp ACUTE ILLNESS 09/10/2015 Patient Education: Patient Medication Summary Completed 09/10/2015 Visit Plan: Increase Protonix to 40mg po BID for 1month Continue carafate at q AC dosing for full month then wean off Jevity for 2 more days then advance diet if able Continue current meds 08/21/2015 Appointment: Keily Arango [facility]el[phone] [id number] [place] NEW PATIENT 08/21/2015 Patient Education: Patient [...] arranged a family friend that is an [employer] to give Wednesday and Sundays injections - [...] sent to [facility] since [facility] does not have in [...]
--- OUTSIDE RECORDS SUMMARY | 2019-11-10 19:42 | XMS REPORT | CCD ---
Author Author Belkys Arango D.O. Organization [facility] Address [address] [place] [address] Phone Care Team Providers Care Wedding Consultant Name Role Phone Keily Arango D.O., PP Unavailable CCM Unavailable Summary Purpose Interface Exchange Insurance Providers Payer name Policy type / Coverage type Covered constitution party ID Effective Begin Date Effective End Date [employer] [facility] [place] Medicaid [id number] U nknown Family History Family History data not found Social History Social History Element Codes Description Effective Dates Marital status Unknown Single 08/21/2015 Employment Unknown Currently unemployed Physically handicapped 08/21/[address]: 098807513 Has never smoked or chewed tobacco 08/21/[address]: 058307567 Never drinks alcohol 2015 Allergies, Adverse Reactions, [...] Fill Instructions famotidine 20 mg tablet RxNorm: 904827 TAKE 1 TABLET BY MOUTH EVERY NIGHT AT BEDTIME 07/09/2019 01/04/2020 Active sertraline 50 mg tablet RxNorm: 771443 TAKE 1 TABLET BY MOUTH EVERY NIGHT AT BEDTIME 07/09/2019 09/06/2019 Active Zenpep 40,000 unit-126,000 unit-168,000 unit capsule,d elayed release RxNorm: 8734043 1 Capsule(s) Oral AC 06/12/2019 10/10/2019 Active Zenpep 40,000 unit-126,000 unit-168,000 unit capsule,d elayed release RxNorm: 1208473 1 Capsule(s) Oral AC 05/24/2019 05/23/2019 Inactive Zenpep 40,000 unit-126,000 unit-168,000 unit capsule,d elayed release RxNorm: 9287283 1 Capsule(s) Oral AC 05/24/2019 06/11/2019 Inactive Ciprodex 0.3 %-0.1 % ear drops,suspension RxNorm: 649046 DROP(S) 4 DROP(S) OTIC BID 05/22/2019 06/18/2019 Inactive oxcarbazepine 300 mg/5 mL (60 mg/mL) oral suspension RxNorm: 976346 15 Milliliter(s) Oral two times a day 05/08/2019 11/03/2019 Active meclizine 12.5 mg tablet RxNorm: 287005 1 TABLET(S) PO TID NEEDE D 05/05/2019 08/02/2019 Active change in quantity Zithromax 200 mg/5 mL oral suspension RxNorm: 076795 12.5 Dilcia liter(s) Oral QD 05/04/2019 05/09/2019 Inactive amoxicillin 400 mg/5 mL oral suspension RxNorm: 076235 10 Milliliter(s) Oral two times a day 05/03/2019 05/13/2019 Inactive Singulair 10 mg tablet RxNorm: 372462 1 TABLET(S) PO QD 03/28/2019 Active Macrobid 100 mg capsule RxNorm: 697068 1 Capsule(s) PO BID 03/16/2003/22/2019 Inactive meclizine 12.5 mg tablet RxNorm: 874829 1 Tablet(s) PO TID as neede d 03/10/2019 05/04/2019 Inactive change in quantity Ciprodex 0.3 %-0.1 % ear drops,suspension RxNorm: 518761 DROP(S) 4 DROP(S) OTIC BID 03/08/2019 04/04/2019 Inactive oxcarbazepine 300 mg/5 mL (60 mg/mL) oral suspension RxNorm: 851624 15 Milliliter(s) PO BID 03/07/2019 05/07/2019 Inactive Macrobid 100 mg capsule RxNorm: 970765 1 Capsule(s) PO BID 02/21/20 19 03/01/2019 Inactive Macrobid 100 mg capsule RxNorm: 785941 1 Capsule(s) PO BID 02/21/20 19 02/19/2019 Inactive meclizine 12.5 mg tablet RxNorm: 928787 1 Tablet(s) PO TID as neede d 02/06/2019 03/07/2019 Inactive change in quantity Ciprodex 0.3 %-0.1 % ear drops,suspension RxNorm: 149617 DROP(S) 4 DROP(S) OTIC BID 01/30/2019 02/12/2019 Inactive diazepam 10 mg tablet RxNorm: 365234 1 Tablet(s) PO QHS as needed 0 01/27/2019 03/27/2019 Inactive sertraline 50 mg tablet RxNorm: 586642 1 Tablet(s) PO QHS 12/29/2018 06/26/2019 Inactive famotidine 20 mg tablet RxNorm: 144759 1 Tablet(s) PO QHS 12/29/2018 06/26/2019 Inactive Ciprodex 0.3 %-0.1 % ear drops,suspension RxNorm: 413468 DROP(S) 4 DROP(S) OTIC BID 12/14/2018 12/27/2018 Inactive Generlac 10 gram/15 mL oral solution RxNorm: 233438 15 Milliliter(s) PO TWO TO THREE TIMES DAILY 12/06/2018 06/03/2019 Inactive Protonix 40 mg tablet,delayed release RxNorm: 840464 1 Tablet(s) PO or per feeding tube BID 11/24/2018 05/22/2019 Inactive meclizine 12.5 mg tablet RxNorm: 439325 1 Tablet(s) PO TID as neede d 11/11/2018 02/06/2019 Inactive change in quantity Ciprodex 0.3 %-0.1 % ear drops,suspension RxNorm: 054360 DROP(S) 4 DROP(S) OTIC BID 11/08/2018 11/21/2018 Inactive diazepam 10 mg tablet RxNorm: 768279 1 Tablet(s) PO QHS as needed 0 10/21/2018 11/19/2018 Inactive Generlac 10 gram/15 mL oral solution RxNorm: 507006 Mil liliter(s) 15 MILLILITER(S) PO TWO TO THREE TIMES DAILY 10/07/2018 11/05/2018 Inacti ve Ciprodex 0.3 %-0.1 % ear drops,suspension RxNorm: 878287 DROP(S) DROP(S) 4 DROP(S) OTIC BID 08/26/2018 03/15/2019 Inactive meclizine 12.5 mg tablet RxNorm: 354035 1 TABLET(S) PO TID NEEDE D 07/25/2018 10/22/2018 Inactive change in quantity oxcarbazepine 300 mg/5 mL (60 mg/mL) oral suspension RxNorm: 588851 15 Milliliter(s) PO BID 07/08/2018 07/07/2018 Inactive oxcarbazepine 300 mg/5 mL (60 mg/mL) oral suspension RxNorm: 556304 15 Milliliter(s) PO BID 07/08/2018 01/03/2019 Inactive sertraline 50 mg tablet RxNorm: 342458 1 TABLET(S) PO QHS 07/06/2018 12/28/2018 Inactive Singulair 10 mg tablet RxNorm: 285369 1 TABLET(S) PO QD 06/24/2018 Inactive Ciprodex 0.3 %-0.1 % ear drops,suspension RxNorm: 754438 DROP(S) 4 DROP(S) OTIC BID 06/20/2018 06/19/2018 Inactive Ciprodex 0.3 %-0.1 % ear drops,suspension RxNorm: 445868 Drop(s) DROP(S) 4 DROP(S) OTIC BID 06/20/2018 07/03/2018 Inactive cefdinir 250 mg/5 mL oral suspension RxNorm: 283992 12 Milliliter(s) PO QD though PEG tube 06/13/2018 06/22/2018 Inactive famotidine 20 mg tablet RxNorm: 875004 1 Tablet(s) PO QHS 05/31/2018 11/26/2018 Inactive famotidine 40 mg/5 mL (8 mg/mL) oral suspension RxNorm: 3102 74 2.5 Milliliter(s) PO QHS 04/29/2018 06/12/2018 Inactive meclizine 12.5 mg tablet RxNorm: 449902 1 TABLET(S) PO TID NEEDE D 04/25/2018 07/23/2018 Inactive change in quantity Generlac 10 gram/15 mL oral solution RxNorm: 857467 Mil liliter(s) 15 MILLILITER(S) PO TWO TO THREE TIMES DAILY 04/04/2018 05/03/2018 Inacti ve Ciprodex 0.3 %-0.1 % ear drops,suspension RxNorm: 701210 Drop(s) 4 DROP(S) OTIC BID 04/04/2018 04/17/2018 Inactive diazepam 10 mg tablet RxNorm: 778538 1 Tablet(s) PO QHS as needed 1 05/03/2018 Inactive famotidine 40 mg/5 mL (8 mg/mL) oral suspension RxNorm: 3102 74 2.5 Milliliter(s) PO QHS 04/04/2018 04/28/2018 Inactive Generlac 10 gram/15 mL oral solution RxNorm: 584430 15 MILLILITER(S) PO TWO TO THREE TIMES DAILY 03/24/2018 04/03/2018 Inactive Singulair 10 mg tablet RxNorm: 119593 1 TABLET(S) PO QD 03/18/2018 Inactive Ciprodex 0.3 %-0.1 % ear drops,suspension RxNorm: 737919 Drop(s) 4 DROP(S) OTIC BID 03/08/2018 03/21/2018 Inactive Generlac 10 gram/15 mL oral solution RxNorm: 695777 15 Milliliter(s) PO two to three times daily 03/03/2018 03/23/2018 Inactive meclizine 12.5 mg tablet RxNorm: 087986 1 Tablet(s) PO TID as neede d 02/10/2018 04/10/2018 Inactive change in quantity meclizine 12.5 mg tablet RxNorm: 556210 1 Tablet(s) PO BID as neede d 02/07/2018 02/09/2018 Inactive change in quantity Ciprodex 0.3 %-0.1 % ear drops,suspension RxNorm: 665480 Drop(s) 4 DROP(S) OTIC BID 02/02/2018 03/08/2018 Inactive sertraline 50 mg tablet RxNorm: 432417 1 TABLET(S) PO QHS 01/25/2018 07/05/2018 Inactive Zithromax 200 mg/5 mL oral suspension RxNorm: 832160 12.5 Dilcia liter(s) PO QD 12/31/2017 01/04/2018 Inactive Pepcid 20 mg tablet RxNorm: 319553 TABLET(S) 1 TABLET(S) PO QHS 04/29/2018 Inactive famotidine 40 mg/5 mL (8 mg/mL) oral suspension RxNorm: 3102 74 2.5 Milliliter(s) PO QHS 12/28/2017 12/27/2017 Inactive famotidine 40 mg/5 mL (8 mg/mL) oral suspension RxNorm: 3102 74 2.5 Milliliter(s) PO QHS 12/28/2017 04/03/2018 Inactive Ciprodex 0.3 %-0.1 % ear drops,suspension RxNorm: 573544 Drop(s) 4 DROP(S) OTIC BID 12/27/2017 02/02/2018 Inactive meclizine 12.5 mg tablet RxNorm: 961577 1 Tablet(s) PO BID as neede d 12/23/2017 02/06/2018 Inactive change in quantity Protonix 40 mg tablet,delayed release RxNorm: 848527 1 Tablet(s) PO or per feeding tube BID 12/16/2017 07/13/2018 Inactive oxcarbazepine 300 mg/5 mL (60 mg/mL) oral suspension RxNorm: 096503 15 Milliliter(s) PO BID 12/16/2017 07/08/2018 Inactive meclizine 12.5 mg tablet RxNorm: 493654 1 Tablet(s) PO BID as neede d 12/15/2017 02/07/2018 Inactive change in quantity Pepcid 40 mg/5 mL (8 mg/mL) oral suspension RxNorm: 297055 5 Milliliter(s) PO QHS to replace nighttime pantoprazole dose 12/14/2017 12/27/2017 Inact марина meclizine 12.5 mg tablet RxNorm: 775682 1 Tablet(s) PO BID as neede d 12/13/2017 12/23/2017 Inactive diazepam 10 mg tablet RxNorm: 234213 1 Tablet(s) PO QHS as needed 0 12/02/2017 03/01/2018 Inactive prednisolone 15 mg/5 mL oral solution RxNorm: 568616 5 Milliliter(s) PO BID for 3 days then 5ml daily for 3 days then 2.5ml daily for 3 days 12/02/2017 12/13/2017 Inactive sertraline 50 mg tablet RxNorm: 933864 1 Tablet(s) PO QHS 11/04/2017 01/24/2018 Inactive Ciprodex 0.3 %-0.1 % ear drops,suspension RxNorm: 022385 Drop(s) 4 DROP(S) OTIC BID 10/18/2017 10/31/2017 Inactive Ciprodex 0.3 %-0.1 % ear drops,suspension RxNorm: 749132 Drop(s) 4 DROP(S) OTIC BID 10/18/2017 12/27/2017 Inactive Singulair 10 mg tablet RxNorm: 157993 1 Tablet(s) PO QD 09/30/2017 Inactive diazepam 5 mg/5 mL (1 mg/mL) oral solution RxNorm: 355926 2.5 Milliliter(s) PO QD give additional 5 mg dose if seizure occurs 09/17/2017 No Stop Date A ctive Bactrim DS 800 mg-160 mg tablet RxNorm: 262956 1 Tablet(s) PO BID 0 09/17/2017 09/23/2017 Inactive Ciprodex 0.3 %-0.1 % ear drops,suspension RxNorm: 066033 4 DROP (S) OTIC BID 09/13/2017 10/18/2017 Inactive cefdinir 250 mg/5 mL oral suspension RxNorm: 239390 12 Milliliter(s) PO QD though PEG tube 08/06/2017 08/15/2017 Inactive sertraline 50 mg tablet RxNorm: 404316 1 Tablet(s) PO QHS 08/02/2017 11/04/2017 Inactive Ciprodex 0.3 %-0.1 % ear drops,suspension RxNorm: 000365 4 DROP (S) OTIC BID 07/22/2017 08/11/2017 Inactive Singulair 10 mg tablet RxNorm: 480647 1 Tablet(s) PO QD 06/30/2017 Inactive diazepam 10 mg tablet RxNorm: 826120 TAKE 1 TABLET BY M OUTH EVERY NIGHT AT BEDTIME NEEDED 06/04/2017 07/03/2017 Inactive oxcarbazepine 300 mg/5 mL (60 mg/mL) oral suspension RxNorm: 066743 15 MILLILITER(S) PO BID 05/03/2017 12/16/2017 Inactive sertraline 50 mg tablet RxNorm: 432827 1 Tablet(s) PO QHS 05/03/2017 08/02/2017 Inactive Protonix 40 mg tablet,delayed release RxNorm: 572651 1 Tablet(s) PO or per feeding tube BID 04/26/2017 12/16/2017 Inactive Ciprodex 0.3 %-0.1 % ear drops,suspension RxNorm: 279667 4 DROP (S) OTIC BID 04/26/2017 05/23/2017 Inactive Generlac 10 gram/15 mL oral solution RxNorm: 297211 Mil liliter(s) TAKE 15 ML BY MOUTH TWO-THREE TIMES DAILY 04/08/2017 03/03/2018 Inactive Singulair 10 mg tablet RxNorm: 811953 1 Tablet(s) PO QD 03/03/2017 Inactive diazepam 10 mg tablet RxNorm: 756504 1 Tablet(s) PO QHS as needed 0 02/15/2017 06/04/2017 Inactive Singulair 10 mg tablet RxNorm: 293592 1 Tablet(s) PO QD 12/01/2016 Inactive Diflucan 150 mg tablet RxNorm: 373211 Tablet(s) Give 1 tab PO now and then repeat dose in 5 days 11/10/2016 03/31/2017 Inactive Zithromax 200 mg/5 mL oral suspension RxNorm: 918295 12.5 Dilcia liter(s) PO QD 11/10/2016 11/14/2016 Inactive Singulair 10 mg tablet RxNorm: 167602 TAKE 1 TABLET BY MOUTH ON CE DAILY 11/02/2016 12/01/2016 Inactive diazepam 10 mg tablet RxNorm: 748526 TAKE 1 TABLET BY M OUTH EVERY NIGHT AT BEDTIME NEEDED 10/21/2016 11/19/2016 Inactive sertraline 50 mg tablet RxNorm: 749452 1 Tablet(s) PO QHS 10/12/2016 01/09/2017 Inactive fluconazole 100 mg tablet RxNorm: 508344 1 Tablet(s) PO QD 09/23/19 17 09/24/2016 Inactive fluconazole 100 mg tablet RxNorm: 943427 1 Tablet(s) PO QD 09/23/19 17 09/21/2016 Inactive Bactrim DS 800 mg-160 mg tablet RxNorm: 798193 1 Tablet(s) PO BID 0 09/10/2016 09/09/2016 Inactive Bactrim DS 800 mg-160 mg tablet RxNorm: 137438 1 Tablet(s) PO BID 0 09/10/2016 09/16/2016 Inactive oxcarbazepine 300 mg/5 mL (60 mg/mL) oral suspension RxNorm: 830847 15 Milliliter(s) PO BID 09/07/2016 03/05/2017 Inactive sertraline 50 mg tablet RxNorm: 000609 1 Tablet(s) PO QHS 07/06/2016 10/03/2016 Inactive Pepcid 20 mg tablet RxNorm: 463379 Tablet(s) 1 TABLET(S) PO QHS 08/201603/08/2017 Inactive sertraline 50 mg tablet RxNorm: 294193 1 Tablet(s) PO QHS 06/08/2016 05/03/2017 Inactive Generlac 10 gram/15 mL oral solution RxNorm: 766993 Mil liliter(s) TAKE 15 ML BY MOUTH TWO-THREE TIMES DAILY 06/08/2016 09/08/2016 Inactive Pepcid 20 mg tablet RxNorm: 993198 1 TABLET(S) PO QHS 06/04/201607/2016 Inactive fluconazole 100 mg tablet RxNorm: 346181 1 Tablet(s) QD through PEG tube 05/13/2016 12/01/2017 Inactive Diflucan 150 mg tablet RxNorm: 272299 Give 1 tab PO now and then repeat dose in 5 days 03/19/2016 11/09/2016 Inactive ceftriaxone 1 gram solution for injection RxNorm: 5122202 1 Gram(s) IM QD Wednesday and Wednesday03/19/2016 11/09/2016 Inactive lidocaine 10 mg/mL (1 %) injection solution RxNorm: 2659192 Use as directed to reconstitute Rocephin when needed 03/19/2016 12/13/2017 Inactive Generlac 10 gram/15 mL oral solution RxNorm: 994600 JOE E 15 ML BY MOUTH TWO- THREE TIMES DAILY 03/19/2016 06/07/2016 Inactive oxcarbazepine 300 mg/5 mL oral suspension RxNorm: 302744 15 Milliliter(s) PO BID 03/13/2016 09/07/2016 Inactive Ciprodex 0.3 %-0.1 % ear drops,suspension RxNorm: 052743 4 DROP (S) OTIC BID 03/09/2016 03/15/2016 Inactive cefdinir 250 mg/5 mL oral suspension RxNorm: 644881 11. 75 Milliliter(s) PO QD though PEG tube 03/02/2016 03/08/2016 Inactive cefdinir 250 mg/5 mL oral suspension RxNorm: 836944 11. 75 Milliliter(s) PO QD though PEG tube 02/24/2016 03/01/2016 Inactive cefdinir 250 mg/5 mL oral suspension RxNorm: 490596 11. 75 Milliliter(s) PO QD though PEG tube 02/24/2016 02/23/2016 Inactive Ciprodex 0.3 %-0.1 % ear drops,suspension RxNorm: 790690 4 Drop (s) OTIC BID 02/24/2016 03/01/2016 Inactive Generlac 10 gram/15 mL oral solution RxNorm: 455548 JOE E 15 ML BY MOUTH TWICE DAILY 02/17/2016 03/18/2016 Inactive Generlac 10 gram/15 mL oral solution RxNorm: 059021 15 Millilit er(s) PO BID 01/23/2016 02/16/2016 Inactive Pepcid 20 mg tablet RxNorm: 253246 1 TABLET(S) PO QHS 01/13/201605/07 Inactive Ciprodex 0.3 %-0.1 % ear drops,suspension RxNorm: 724607 4 Drop (s) OTIC BID 12/23/2015 12/29/2015 Inactive sertraline 50 mg tablet RxNorm: 169372 1 Tablet(s) PO QHS 12/16/2015 06/07/2016 Inactive Zithromax 500 mg tablet RxNorm: 007928 1 Tablet(s) PO QD 12/16/2015 0 12/22/2015 Inactive Pepcid 20 mg tablet RxNorm: 149341 1 Tablet(s) PO QHS 12/16/201501/02 Inactive Zithromax 500 mg tablet RxNorm: 696330 1 Tablet(s) PO QD 11/12/2015 0 11/18/2015 Inactive Singulair 10 mg tablet RxNorm: 080330 1 Tablet(s) PO BID 10/16/2015 0 11/11/2015 Inactive diazepam 10 mg tablet RxNorm: 134397 1 Tablet(s) PO QHS 10/07/2015 Inactive diazepam 10 mg tablet RxNorm: 166644 1 Tablet(s) PO QHS 10/07/2015 Inactive fexofenadine 30 mg/5 mL oral suspension RxNorm: 299879 10 Milliliter(s) PO one to two times daily PRN allergies 09/20/2015 12/15/2015 Inactive ceftriaxone 1 gram solution for injection RxNorm: 8530599 1 Gram (s) IM QD 09/20/2015 09/21/2015 Inactive Ciprodex 0.3 %-0.1 % ear drops,suspension RxNorm: 289015 4 Drop (s) OTIC BID 09/20/2015 10/03/2015 Inactive Protonix 40 mg tablet,delayed release RxNorm: 056233 1 Tablet(s) PO or per feeding tube BID 08/21/2015 12/18/2015 Inactive Carafate 100 mg/mL oral suspension RxNorm: 416349 10 Mi lliliter(s) Miscellaneous per feeding tube AC & HS 08/21/2015 09/19/2015 Inactive Zyrtec 10 mg tablet RxNorm: 5499544 1 Tablet(s) PO QD No Start Date Active diazepam 20 mg rectal kit RxNorm: 744664 RTL as needed No Start Date Active Lortab Elixir 10 mg-300 mg/15 mL oral solution RxNorm: 49798 45 8 PO Q6-8H as needed No Start Date Active ondansetron HCl 4 mg/5 mL oral solution RxNorm: 846549 10 Milliliter(s) PO as needed and through tube No Start Date Active sertraline 50 mg tablet RxNorm: 194858 1 Tablet(s) PO QD No Start D ate 12/15/2015 Inactive Brittany 180 mg tablet RxNorm: 779333 1 Tablet(s) PO QD No Start Date 06/12/2018 Inactive Generlac 10 gram/15 mL oral solution RxNorm: 575110 15 Millilit er(s) PO BID No Start Date 01/22/2016 Inactive oxcarbazepine 300 mg/5 mL oral suspension RxNorm: 207987 13.5 Milliliter(s) PO QAM and 15ml in the evening No Start Date 12/15/2015 Inactive Singulair 10 mg tablet RxNorm: 513579 1 Tablet(s) PO QD No Start Da te 11/30/2016 Inactive meclizine 12.5 mg tablet RxNorm: 324670 1 Tablet(s) PO TID as needed for dizziness No Start Date 09/13/2017 Inactive meclizine 12.5 mg tablet RxNorm: 976501 1 Tablet(s) PO BID No Start Date 12/12/2017 Inactive fluconazole 100 mg tablet RxNorm: 802555 1 Tablet(s) QD through PEG tube No Start Date 05/12/2016 Inactive Flomax 0.4 mg capsule RxNorm: 975845 1 Capsule(s) PO QD No Start Da te 06/12/2018 Inactive diazepam 10 mg tablet RxNorm: 593205 1 Tablet(s) PO QHS as needed N o Start Date 02/14/2017 Inactive Generlac 10 gram/15 mL oral solution RxNorm: 742762 15 Milliliter(s) PO two to three times daily No Start Date 03/02/2018 Inactive oxcarbazepine 300 mg/5 mL oral suspension RxNorm: 883775 15 Milliliter(s) PO BID No Start Date 12/15/2017 Inactive Medication Administered No Medication Administered data Immunizations Vaccine Codes Date Status Influenza CVX: 141 04/21/2019 Results No Results data Procedures Procedure Codes Date DEXAMETHASONE SODIUM PHOS CPT-4: J1100 05/03/2019 THER/PROPH/DIAG INJ SC/IM CPT-4: 16255 05/03/2019 CEFTRIAXONE SODIUM INJECTION CPT-4: J0696 03/19/2016 THER/PROPH/DIAG INJ SC/IM CPT-4: 82731 03/19/2016 DEXAMETHASONE SODIUM PHOS CPT-4: J1100 11/12/2015 THER/PROPH/DIAG INJ SC/IM CPT-4: 22712 11/12/2015 CEFTRIAXONE SODIUM INJECTION CPT-4: J0696 09/20/2015 THER/PROPH/DIAG INJ SC/IM CPT-4: 31865 09/20/2015 THER/PROPH/DIAG INJ SC/IM CPT-4: 65318 09/10/2015 METHYLPREDNISOLONE 40 MG INJ CPT-4: J1030 09/10/2015 TRIAMCINOLONE ACET INJ NOS CPT-4: J3301 09/10/2015 Vital Signs Date Vital 06/12/2019 Blood Pressure 1: 112/74 Code: 8480-6 BMI: 23.2 Code: 37155-8 Heart Rate 1: 102 bpm Height: 4'5" [...] 1: 114/70 Code: 8480-6 BMI: 23.1 Code: 74364-0 Heart Rate 1: 80 bpm Height: 4'6" [...] visit Encounters Encounter Performer Location Codes Date ([id number]) PREV VISIT EST AGE 18-39 Diagnosis: Encounter for general adult medical examination with abnormal findings[ICD10: Z00.01] Diagnosis: Chronic pancreatitis[ICD10: K86.1] Diagnosis: Cerebral palsy, unspecified[ICD10: G80.9] [facility] 74909 06/12/2019 ([id number]) OFFICE/OUTPATIENT VISIT EST Diagnosis: Pneumonia, organism unspecified[ICD10: J18.9] Diagnosis: Breast mass, right[ICD10: N63.10] [facility]: 80259 05/08/2019 ([id number]) OFFICE/OUTPATIENT VISIT EST Diagnosis: Allergic rhinitis due to pollen[ICD10: J30.1] Diagnosis: Otitis media, unspecified, right ear[ICD10: H66.91] [facility]: 26426 05/03/2019 ([id number]) OFFICE/OUTPATIENT VISIT EST Diagnosis: Irritability and anger[ICD10: R45.4] Nataliia Марияsilvio Bobby [facility] CPT-[facility]: 49587 11/25/2018 ([id number]) OFFICE/OUTPATIENT VISIT EST Diagnosis: Acute suppurative otitis media without spontaneous rupture of ear drum, bilateral[ICD10: H66.003] [facility]PT[facility]: 99926 06/13/2018 ([id number]) OFFICE/OUTPATIENT VISIT EST Diagnosis: Other fatigue[ICD10: R53.83] Diagnosis: Anuria and oliguria[ICD10: R34] Diagnosis: Acute gastritis without bleeding[ICD10: K29.00] Fatou CASTILLO [facility] CPT-4: 34509 01/04/2018 ([id number]) OFFICE/OUTPATIENT VISIT EST Diagnosis: Acute bronchitis, unspecified[ICD10: J20.9] Fatou ARANGO [facility] CPT-4: 68942 12/31/2017 ([id number]) PREV VISIT EST AGE 18-39 Diagnosis: Encounter for general adult medical examination without abnormal findings[ICD10: Z00.00] Diagnosis: Severe intellectual disabilities[ICD10: F72] Diagnosis: Allergic rhinitis due to pollen[ICD10: J30.1] Diagnosis: Epilepsy, unspecified, intractable, without status epilepticus[ICD10: G40.919] Diagnosis: Gastro-esophageal reflux disease without esophagitis[ICD10: K21.9] [facility] 49729 12/14/2017 ([id number]) OFFICE/OUTPATIENT VISIT EST Diagnosis: Allergic rhinitis due to pollen[ICD10: J30.1] Diagnosis: Epilepsy, unspecified, intractable, without status epilepticus[ICD10: G40.919] [facility]PT[facility]: 93076 12/02/2017 ([id number]) OFFICE/OUTPATIENT VISIT EST Diagnosis: Other allergic rhinitis[ICD10: J30.89] Fatou CERON Alicia [facility] CPT-4: 29493 10/12/2017 OFFICE/OUTPATIENT VISIT EST Diagnosis: Acute suppurative otitis media without spontaneous rupture of ear drum, recurrent, left ear[ICD10: H66.005] Diagnosis: Epilepsy, unspecified, intractable, without status epilepticus[ICD10: G40.919] Diagnosis: Hesitancy of micturition[ICD10: R39.11] [facility]PT[facility]: 69613 09/17/2017 OFFICE/OUTPATIENT VISIT EST Diagnosis: Otitis media, unspecified, left ear[ICD10: H66.92] [facility] 32359 08/06/2017 ([id number]) OFFICE/OUTPATIENT VISIT EST Diagnosis: Vertigo of central origin, 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.49] Diagnosis: Dizziness and giddiness[ICD10: R42] [facility] 81378 04/01/2017 OFFICE/OUTPATIENT VISIT EST Diagnosis: Vomiting, unspecified[ICD10: R11.10] Diagnosis: 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)[ICD10: K56.5] Diagnosis: Personal history of urinary calculi[ICD10: Z87.442] Emely HobbsSanchez [facility]PT[facility]: 04153 03/01/2017 ([id number]) OFFICE/OUTPATIENT VISIT EST Diagnosis: Allergic rhinitis due to pollen[ICD10: J30.1] Diagnosis: Acute and subacute allergic otitis media (mucoid) (sanguinous) (serous), left ear[ICD10: H65.112] Keily [facility] CPT-4: 41608 11/10/2016 ([id number]) OFFICE/OUTPATIENT VISIT EST Diagnosis: 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] Diagnosis: Unspecified ovarian cyst, right side[ICD10: N83.201] Diagnosis: Cyst of kidney, 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] Keily CERON Alicia [facility] CPT-[facility]: 90735 08/13/2016 ([id number]) OFFICE/OUTPATIENT VISIT EST Diagnosis: Rash and other nonspecific skin eruption[ICD10: R21] Aziza Magallanes KEILY Bobby [facility] CPT-4: 15669 03/27/2016 ([id number]) OFFICE/OUTPATIENT VISIT EST Diagnosis: Urinary tract infection, site not specified[ICD10: N39.0] [facility] CPT-[facility]: 04734 03/23/2016 ([id number]) OFFICE/OUTPATIENT VISIT EST Diagnosis: Retention of urine, unspecified[ICD10: R33.9] Diagnosis: Dysuria[ICD10: R30.0] Diagnosis: Constipation, unspecified[ICD10: K59.00] Aziza LAWTON Diamante [facility] CPT-4: 98851 03/19/2016 ([id number]) OFFICE/OUTPATIENT VISIT EST Diagnosis: Acute sinusitis, unspecified[ICD10: J01.90] Keily Bobby [facility] CPT-4: 23686 03/02/2016 OFFICE/OUTPATIENT VISIT EST Diagnosis: Other fatigue[ICD10: R53.83] Diagnosis: Retention of urine, unspecified[ICD10: R33.9] Diagnosis: Dysuria[ICD10: R30.0] Diagnosis: Generalized abdominal pain[ICD10: R10.84] 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] Aziza [facility] CPT-4: 24069 02/24/2016 ([id number]) OFFICE/OUTPATIENT VISIT EST Diagnosis: Chronic mucoid otitis media, right ear[ICD10: H65.31] Diagnosis: Allergic rhinitis, unspecified[ICD10: J30.9] Diagnosis: 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] Keily [facility] CPT-4: 14595 12/16/2015 ([id number]) OFFICE/OUTPATIENT VISIT EST Diagnosis: Allergic rhinitis, unspecified[ICD10: J30.9] Diagnosis: Acute recurrent sinusitis, unspecified[ICD10: J01.91] Keily [facility] CPT-4: 25857 11/12/2015 ([id number]) OFFICE/OUTPATIENT VISIT EST Diagnosis: Other seasonal allergic rhinitis[ICD10: J30.2] Diagnosis: Nausea with vomiting, unspecified[ICD10: R11.2] Diagnosis: Epigastric pain[ICD10: R10.13] Aziza [facility] CPT-4: 19698 10/16/2015 OFFICE/OUTPATIENT VISIT EST Diagnosis: Encounter for follow-up examination after completed treatment for conditions other than malignant neoplasm[ICD10: Z09] Diagnosis: Generalized abdominal pain[ICD10: R10.84] Keily Bobby [facility] CPT-4: 66824 09/23/2015 ([id number]) OFFICE/OUTPATIENT VISIT EST Diagnosis: Otitis media, unspecified, right ear[ICD10: H66.91] Diagnosis: Constipation, unspecified[ICD10: K59.00] Diagnosis: Allergic rhinitis, unspecified[ICD10: J30.9] Aziza [facility] CPT-4: 40011 09/20/2015 OFFICE/OUTPATIENT VISIT EST Diagnosis: Allergic rhinitis, unspecified[ICD10: J30.9] Diagnosis: Unspecified perforation of tympanic membrane, right ear[ICD10: H72.91] Bibiana LÓPEZQUELINE S. ORENDOFELIA HURLEY [employer] CPT-4: 26261 09/10/2015 OFFICE/OUTPATIENT VISIT NEW Diagnosis: Epilepsy, unspecified, intractable, without status epilepticus[ICD10: G40.919] Diagnosis: Gastric ulcer, unspecified as acute or chronic, without hemorrhage or perforation[ICD10: K25.9] Diagnosis: Severe intellectual disabilities[ICD10: F72] Keily LINARES ThorAlicia CONCHITA HURLEY [employer] CPT-4: 81710 08/21/2015 Plan of Care Planned Activity Notes Codes Status Date Visit Diagnosis Plan: Chronic pancreatitis Discussion: Continue zenpep and recheck CMP with amylase/lipase in 1 month ICD-9 : 577.1 ICD-10 : K86.1 06/12/2019 Appointment: Keily Arango WPtel: [phone] [facility] Annual Well Visit 06/12/2019 Visit Diagnosis Plan: [...] : J18.9 05/08/2019 Appointment: Keily Arango WPtel: [facility] [facility] Follow Up 05/08/2019 Visit Diagnosis Plan: [...] ICD-10 : J30.1 05/03/2019 Appointment: Fatou Onofre [address] [place] [address] ACUTE ILLNESS 05/03/2019 Patient Education: amoxicillin- [employer] Coupon [phone] [email or web address]/[email or web address] Completed 05/03/2019 Visit Diagnosis Plan: Irritability and [...] ICD-10 : R45.4 11/25/2018 Appointment: Nataliia Hsieh [address] [place] [address] ACUTE ILLNESS 11/25/2018 Visit Diagnosis Plan: Acute suppurative otitis media without spontaneous rupture of ear drum, bilateral Discussion: cefdinir for 10 days. if wor sening symptoms later this week, call clinic. push fluids and tylenol/ibuprofen prn pain or fever. ICD-9 : 382.00 ICD-10 : H66.003 06/13/2018 Appointment: Fatou Onofre [address] [place] [address] ACUTE ILLNESS 06/13/2018 Visit Diagnosis Plan: Anuria [...] ICD-10 : R53.83 01/04/2018 Appointment: Fatou Onofre [address] [place] [address] ACUTE ILLNESS 01/04/2018 Patient Education: Patient Medication Summary Completed 01/04/2018 Visit Diagnosis Plan: Acute bronchitis, unspecified Di scussion: zithromax prescribed to take as directed. continue with allergy meds including flonase to help dry congestion. call office next week if new or worsening symptoms. ICD-9 : 466.0 ICD-10 : J20.9 12/31/2017 Appointment: Fatou Onofre [address] [place] [address] ACUTE ILLNESS 12/31/2017 Patient Education: Patient Medication Summary Completed 12/31/2017 Visit Diagnosis Plan: Epilepsy, unspecif ied, intractable, without status epilepticus Discussion: Stable on current regimen ICD-9 : 345.91 ICD-10 : G40.919 12/14/2017 Visit Diagnosis Plan: Encounter for [facility] medical examination without abnormal findings Discussion: Had recent lab done Follow Up: 3 months ICD-9 : V70.9 ICD-10 : Z00.00 12/14/2017 Visit Diagnosis Plan: Allergic rhinitis due to pollen Discussion: Continue current meds Change night time protonix to pepcid for total histamine blockade ICD-9 : 477.9 ICD-10 : J30.1 12/14/2017 Appointment: Keily Arango WPtel: [address] [place] [address] CHECK UP 12/14/2017 Patient Education: Patient Medication [...] : G40.919 12/02/2017 Appointment: Keily Arango WPtel: [facility] ACUTE ILLNESS 12/02/2017 Patient Education: Patient Medication Summary Completed 12/02/2017 Visit Diagnosis Plan: Other allergic rhinitis Discussi on: symptoms most likely caused from allergies. patient sent to hospital for decadron injection. instructed to restart patient's flonase at home. if new or worsening symptoms, call or rtc. ICD-9 : 477.8 ICD-10 : J30.89 10/12/2017 Appointment: Fatou Onofre [address] [place] [address] ACUTE ILLNESS 10/12/2017 Patient Education: Patient Medication [...] ICD-10 : R39.11 09/17/2017 Appointment: Fatou Onofre [address] [place], [place] [address] ACUTE ILLNESS 09/17/2017 Patient Education: Patient Medication Summary Completed 09/17/2017 Visit Diagnosis Plan: Otitis media, unspecified, left ear Discussion: cefdinir prescribed daily for 10 days. instructed to administer tylenol/ibuprofen for pain or fever. if no improvement, or worsening symptoms, call or rtc. ICD-9 : 380.14 ICD-10 : H66.92 08/06/2017 Appointment: Fatou Onofre [address] [place] [address] ACUTE ILLNESS 08/06/2017 Patient Education: Patient Medication Summary Completed 08/06/2017 Patient Education: Patient Medication Summary Completed 08/02/2017 Patient Education: Patient Medication Summary Completed 04/21/2017 Care Plan: MRI BRAIN STEM W/O DYE LOINC : 08767-5 Pending 04/21/2017 Patient Education: Patient Medication Summary Completed 04/20/2017 Care Plan: MRI BRAIN STEM W/O DYE LOINC : 98799-6 Pending 04/20/2017 Visit Diagnosis Plan: Vertigo of central origin, unspe cified ear Discussion: Continue meclizine at 12.5mg po BID for 2 more weeks then go to 12.5mg daily for 2 weeks then 6.25mg daily for 2 weeks then stop Notify if any symptoms return with weaning process ICD-9 : 386.2 ICD-10 : H81.49 04/01/2017 Appointment: Keily Arango WPtel: [phone] FOLLOW UP 04/01/2017 Patient Education: Patient Medication Summary Completed 04/01/2017 Patient Education: Patient Medication Summary Completed 03/09/2017 Care Plan: CT HEAD/BRAIN W/O DYE LOINC : 00909-5 Pending 03/09/2017 Visit Plan: It's difficult to [...] indicated. 03/01/2017 Appointment[facility] Hdz [phone] [facility] 03/01/2017 Patient Education: Patient Medication Summary Completed 03/01/2017 Patient Education: Patient Medication Summary Completed 12/17/2016 Visit Diagnosis Plan: Allergic rhinitis due to pollen Discussion: Continue zyrtec/singulair ICD-9 : 477.9 ICD-10 : J30.1 11/10/2016 Visit Diagnosis Plan: Acute and subacute allergic otitis media (mucoid) (sanguinous) (serous), left ear Discussion: Everettthromax ICD-9 : 381.05 ICD-10 : H65.112 11/10/2016 Appointment: Keily Arango WPtel: [phone] ACUTE ILLNESS 11/10/2016 Patient Education: Patient Medication Summary Completed 11/10/2016 Patient Education: Patient Medication Summary Completed 09/07/2016 Care Plan: URINALYSIS AUTO W/[place] : 97454-3 Pending 09/07/2016 Visit Diagnosis Plan: Unspecified ovarian [...] : N20.0 08/13/2016 Appointment: Keily Arango WPtel: [facility] 08/12 confirmed-sp FOLLOW UP 08/13/2016 Patient Education: Patient Medication Summary Completed 08/13/2016 Patient Education: Patient Medication Summary Completed 05/19/2016 Care Plan: X-RAY EXAM OF FOOT left foot LOINC : 26 095-0 Pending 05/19/2016 Visit Plan: Discussed with Dr Conchita MAGANA C to be drawn Order sent to Will call with results 03/27/2016 Appointment: Aziza Magallanes [phone] ACUTE ILLNESS 03/27/2016 Patient Education: Patient Medication Summary Completed 03/27/2016 Visit Plan: Go for dose of rocephin 1gm IM today and tomorrow then done Diflucan 150mg x1 today Discussed with mom via phone about urology fwup--she will talk with her and let us know 03/23/2016 Appointment: Keily Arango [facility]Ptel: [phone] [facility] 03/23 confirmed ~sl FOLLOW UP 03/23/2016 Patient Education: Patient Medication Summary Completed 03/23/2016 Visit Plan: Per Dr Arango, straight cat h for UA and culture today Ok to have a standing order for further UA needs at for straight cath Rocephin IM today and daily through Wednesday Mom has arranged a family friend that is an [employer] to give Wednesday and Sundays injections - [...] let us know 03/19/2016 Appointment: Aziza Magallanes [address] [place], [place] [address] ACUTE ILLNESS 03/19/2016 Patient Education: Patient Medication Summary Completed 03/19/2016 Visit Plan: 1 more week of cefdinir 03/02/2016 Appointment: Keily Arango WPtel: [phone] [facility] 03/02 confirmed~sl WORK IN 03/02/2016 Patient Education: [...] seen if worsening 02/24/2016 Appointment: Aziza Magallanes [address] [facility] ACUTE ILLNESS 02/24/2016 Patient Education: Patient Medication Summary Completed 02/24/2016 Care Plan: CHEST X-RAY 2VW FRONTAL&LATL LOINC : 17372-3 Pending 02/24/2016 Care Plan: X-RAY EXAM OF ABDOMEN LOINC : 43721-3 Pending 02/24/2016 Visit Plan: Repeat zithromax x1 week Cip rodex to right ear x1 week Add Pepcid q HS x2-4 weeks for total histamine blockade and for extra stomach protection while on zithromax 12/16/2015 Appointment: Keily Arango WPtel: [phone] [facility] US 6/9 lm~sl 6/10 lm ~sl FOLLOW UP 12/16/2015 Patient Education: Patient Medication Summary Completed 12/16/2015 Patient Education: [facility] - Saving Auto[employer]j - Sertraline HCL - 18-64 - Dynamic Portal ID Completed 12/16/2015 Visit Plan: Saline nasal flushes prn. Ty lenol/Motrin prn headache. Notify if persists/symptoms worsens Dexamethasone given 11/12/2015 Appointment: Keily Arango WPtel: [phone] [facility] US 5/9 lm~sl 5/10 lm~sl 5/10 confirm-sp [...] Belkys 10/16/2015 Appointment: Aziza Magallanes [phone] [facility] ACUTE ILLNESS 10/16/2015 Patient Education: Patient Medication Summary Completed 10/16/2015 Appointment: Aziza Magallanes [phone] [facility] US canceled, feeling better CANCELED 016 Visit Plan: No further abx needed Go mariela k to [facility] for next 3 days and restart carafate Notify if abdominal pain worsens 09/23/2015 Appointment: Keily Arango WPtel: [phone] [facility] 09/19 confirmed-sp FOLLOW UP 09/23/2015 Patient Education: [...] past to try for now. 09/20/2015 Appointment: Aizza Magallanes [address] [facility] ACUTE ILLNESS 09/20/2015 Patient Education: Patient Medication Summary Completed 09/20/2015 Visit Plan: Depo Medrol 40mg/ Kenalog 40 mg IM today Resume Ciprodex otic gtts. bid to Rt. ear 09/10/2015 Appointment: Bibiana Garg [facility]el[phone] 09/08 confirmed-sp ACUTE ILLNESS 09/10/2015 Patient Education: Patient Medication Summary Completed 09/10/2015 Visit Plan: Increase Protonix to 40mg po BID for 1month Continue carafate at q AC dosing for full month then wean off Jevity for 2 more days then advance diet if able Continue current meds 08/21/2015 Appointment: Keily Arango WPtel: [phone] [facility] NEW PATIENT 08/21/2015 Patient Education: Patient [...] arranged a family friend that is an [employer] to give Wednesday and Sundays injections - [...]
--- OUTSIDE RECORDS SUMMARY | 2019-11-10 19:43 | XMS REPORT | CCD ---
Author Author Belkys Arango D.O. Organization [facility] Address [address] [place] [address] Phone Care Team Providers Care Paleologist Name Role Phone Keily Arango D.O., PP Unavailable CCM Unavailable Summary Purpose Interface Exchange Insurance Providers Payer name Policy type / Coverage type Covered green party ID Effective Begin Date Effective End Date [employer] [facility] [employer] [place] Medicaid [id number] U nknown Family History Family History data not found Social History Social History Element Codes Description Effective Dates Marital status Unknown Single 08/21/2015 Employment Unknown Currently unemployed Physically handicapped 08/21/[address]: 544718365 Has never smoked or chewed tobacco 08/21/[address]: 524429670 Never drinks alcohol 2015 Allergies, Adverse Reactions, [...] unit-126,000 unit-168,000 unit capsule,d elayed release RxNorm: 1841173 1 Capsule(s) Oral AC 06/12/2019 10/10/2019 Active Zenpep 40,000 unit-126,000 unit-168,000 unit capsule,d elayed release RxNorm: 6279677 1 Capsule(s) Oral AC 05/24/2019 05/23/2019 Inactive Zenpep 40,000 unit-126,000 unit-168,000 unit capsule,d elayed release RxNorm: 7379212 1 Capsule(s) Oral AC 05/24/2019 06/11/2019 Inactive Ciprodex 0.3 %-0.1 % ear drops,suspension RxNorm: 152336 DROP(S) 4 DROP(S) OTIC BID 05/22/2019 06/18/2019 Active oxcarbazepine 300 mg/5 mL (60 mg/mL) oral suspension RxNorm: 892663 15 Milliliter(s) Oral two times a day 05/08/2019 11/03/2019 Active meclizine 12.5 mg tablet RxNorm: 481829 1 TABLET(S) PO TID NEEDE D 05/05/2019 08/02/2019 Active change in quantity Zithromax 200 mg/5 mL oral suspension RxNorm: 646528 12.5 Dilcia liter(s) Oral QD 05/04/2019 05/09/2019 Inactive amoxicillin 400 mg/5 mL oral suspension RxNorm: 545105 10 Milliliter(s) Oral two times a day 05/03/2019 05/13/2019 Inactive Singulair 10 mg tablet RxNorm: 366508 1 TABLET(S) PO QD 03/28/2019 Active Macrobid 100 mg capsule RxNorm: 855561 1 Capsule(s) PO BID 03/16/2003/22/2019 Inactive meclizine 12.5 mg tablet RxNorm: 627092 1 Tablet(s) PO TID as neede d 03/10/2019 05/04/2019 Inactive change in quantity Ciprodex 0.3 %-0.1 % ear drops,suspension RxNorm: 552881 DROP(S) 4 DROP(S) OTIC BID 03/08/2019 04/04/2019 Inactive oxcarbazepine 300 mg/5 mL (60 mg/mL) oral suspension RxNorm: 649672 15 Milliliter(s) PO BID 03/07/2019 05/07/2019 Inactive Macrobid 100 mg capsule RxNorm: 202410 1 Capsule(s) PO BID 02/21/2003/01/2019 Inactive Macrobid 100 mg capsule RxNorm: 344250 1 Capsule(s) PO BID 02/21/2002/19/2019 Inactive meclizine 12.5 mg tablet RxNorm: 336904 1 Tablet(s) PO TID as neede d 02/06/2019 03/07/2019 Inactive change in quantity Ciprodex 0.3 %-0.1 % ear drops,suspension RxNorm: 064868 DROP(S) 4 DROP(S) OTIC BID 01/30/2019 02/12/2019 Inactive diazepam 10 mg tablet RxNorm: 043932 1 Tablet(s) PO QHS as needed 0 01/27/2019 03/27/2019 Inactive sertraline 50 mg tablet RxNorm: 429438 1 Tablet(s) PO QHS 12/29/2018 06/26/2019 Active famotidine 20 mg tablet RxNorm: 191394 1 Tablet(s) PO QHS 12/29/2018 06/26/2019 Active Ciprodex 0.3 %-0.1 % ear drops,suspension RxNorm: 448692 DROP(S) 4 DROP(S) OTIC BID 12/14/2018 12/27/2018 Inactive Generlac 10 gram/15 mL oral solution RxNorm: 724558 15 Milliliter(s) PO TWO TO THREE TIMES DAILY 12/06/2018 06/03/2019 Inactive Protonix 40 mg tablet,delayed release RxNorm: 192629 1 Tablet(s) PO or per feeding tube BID 11/24/2018 05/22/2019 Inactive meclizine 12.5 mg tablet RxNorm: 281506 1 Tablet(s) PO TID as neede d 11/11/2018 02/06/2019 Inactive change in quantity Ciprodex 0.3 %-0.1 % ear drops,suspension RxNorm: 500097 DROP(S) 4 DROP(S) OTIC BID 11/08/2018 11/21/2018 Inactive diazepam 10 mg tablet RxNorm: 834963 1 Tablet(s) PO QHS as needed 0 10/21/2018 11/19/2018 Inactive Generlac 10 gram/15 mL oral solution RxNorm: 205996 Mil liliter(s) 15 MILLILITER(S) PO TWO TO THREE TIMES DAILY 10/07/2018 11/05/2018 Inacti ve Ciprodex 0.3 %-0.1 % ear drops,suspension RxNorm: 160212 DROP(S) DROP(S) 4 DROP(S) OTIC BID 08/26/2018 03/15/2019 Inactive meclizine 12.5 mg tablet RxNorm: 291211 1 TABLET(S) PO TID NEEDE D 07/25/2018 10/22/2018 Inactive change in quantity oxcarbazepine 300 mg/5 mL (60 mg/mL) oral suspension RxNorm: 335785 15 Milliliter(s) PO BID 07/08/2018 07/07/2018 Inactive oxcarbazepine 300 mg/5 mL (60 mg/mL) oral suspension RxNorm: 321938 15 Milliliter(s) PO BID 07/08/2018 01/03/2019 Inactive sertraline 50 mg tablet RxNorm: 035345 1 TABLET(S) PO QHS 07/06/2018 12/28/2018 Inactive Singulair 10 mg tablet RxNorm: 158223 1 TABLET(S) PO QD 06/24/2018 Inactive Ciprodex 0.3 %-0.1 % ear drops,suspension RxNorm: 487584 DROP(S) 4 DROP(S) OTIC BID 06/20/2018 06/19/2018 Inactive Ciprodex 0.3 %-0.1 % ear drops,suspension RxNorm: 016966 Drop(s) DROP(S) 4 DROP(S) OTIC BID 06/20/2018 07/03/2018 Inactive cefdinir 250 mg/5 mL oral suspension RxNorm: 218130 12 Milliliter(s) PO QD though PEG tube 06/13/2018 06/22/2018 Inactive famotidine 20 mg tablet RxNorm: 178406 1 Tablet(s) PO QHS 05/31/2018 11/26/2018 Inactive famotidine 40 mg/5 mL (8 mg/mL) oral suspension RxNorm: 3102 74 2.5 Milliliter(s) PO QHS 04/29/2018 06/12/2018 Inactive meclizine 12.5 mg tablet RxNorm: 263602 1 TABLET(S) PO TID NEEDE D 04/25/2018 07/23/2018 Inactive change in quantity Generlac 10 gram/15 mL oral solution RxNorm: 161641 Mil liliter(s) 15 MILLILITER(S) PO TWO TO THREE TIMES DAILY 04/04/2018 05/03/2018 Inacti ve Ciprodex 0.3 %-0.1 % ear drops,suspension RxNorm: 645201 Drop(s) 4 DROP(S) OTIC BID 04/04/2018 04/17/2018 Inactive diazepam 10 mg tablet RxNorm: 443010 1 Tablet(s) PO QHS as needed 1 05/03/2018 Inactive famotidine 40 mg/5 mL (8 mg/mL) oral suspension RxNorm: 3102 74 2.5 Milliliter(s) PO QHS 04/04/2018 04/28/2018 Inactive Generlac 10 gram/15 mL oral solution RxNorm: 602222 15 MILLILITER(S) PO TWO TO THREE TIMES DAILY 03/24/2018 04/03/2018 Inactive Singulair 10 mg tablet RxNorm: 144230 1 TABLET(S) PO QD 03/18/2018 Inactive Ciprodex 0.3 %-0.1 % ear drops,suspension RxNorm: 662543 Drop(s) 4 DROP(S) OTIC BID 03/08/2018 03/21/2018 Inactive Generlac 10 gram/15 mL oral solution RxNorm: 735737 15 Milliliter(s) PO two to three times daily 03/03/2018 03/23/2018 Inactive meclizine 12.5 mg tablet RxNorm: 479232 1 Tablet(s) PO TID as neede d 02/10/2018 04/10/2018 Inactive change in quantity meclizine 12.5 mg tablet RxNorm: 741468 1 Tablet(s) PO BID as neede d 02/07/2018 02/09/2018 Inactive change in quantity Ciprodex 0.3 %-0.1 % ear drops,suspension RxNorm: 591346 Drop(s) 4 DROP(S) OTIC BID 02/02/2018 03/08/2018 Inactive sertraline 50 mg tablet RxNorm: 145443 1 TABLET(S) PO QHS 01/25/2018 07/05/2018 Inactive Zithromax 200 mg/5 mL oral suspension RxNorm: 968819 12.5 Dilcia liter(s) PO QD 12/31/2017 01/04/2018 Inactive Pepcid 20 mg tablet RxNorm: 900629 TABLET(S) 1 TABLET(S) PO QHS 04/29/2018 Inactive famotidine 40 mg/5 mL (8 mg/mL) oral suspension RxNorm: 3102 74 2.5 Milliliter(s) PO QHS 12/28/2017 12/27/2017 Inactive famotidine 40 mg/5 mL (8 mg/mL) oral suspension RxNorm: 3102 74 2.5 Milliliter(s) PO QHS 12/28/2017 04/03/2018 Inactive Ciprodex 0.3 %-0.1 % ear drops,suspension RxNorm: 216714 Drop(s) 4 DROP(S) OTIC BID 12/27/2017 02/02/2018 Inactive meclizine 12.5 mg tablet RxNorm: 187531 1 Tablet(s) PO BID as neede d 12/23/2017 02/06/2018 Inactive change in quantity Protonix 40 mg tablet,delayed release RxNorm: 926668 1 Tablet(s) PO or per feeding tube BID 12/16/2017 07/13/2018 Inactive oxcarbazepine 300 mg/5 mL (60 mg/mL) oral suspension RxNorm: 534841 15 Milliliter(s) PO BID 12/16/2017 07/08/2018 Inactive meclizine 12.5 mg tablet RxNorm: 072098 1 Tablet(s) PO BID as neede d 12/15/2017 02/07/2018 Inactive change in quantity Pepcid 40 mg/5 mL (8 mg/mL) oral suspension RxNorm: 385672 5 Milliliter(s) PO QHS to replace nighttime pantoprazole dose 12/14/2017 12/27/2017 Inact марина meclizine 12.5 mg tablet RxNorm: 484511 1 Tablet(s) PO BID as neede d 12/13/2017 12/23/2017 Inactive diazepam 10 mg tablet RxNorm: 760612 1 Tablet(s) PO QHS as needed 0 12/02/2017 03/01/2018 Inactive prednisolone 15 mg/5 mL oral solution RxNorm: 535075 5 Milliliter(s) PO BID for 3 days then 5ml daily for 3 days then 2.5ml daily for 3 days 12/02/2017 12/13/2017 Inactive sertraline 50 mg tablet RxNorm: 023137 1 Tablet(s) PO QHS 11/04/2017 01/24/2018 Inactive Ciprodex 0.3 %-0.1 % ear drops,suspension RxNorm: 158268 Drop(s) 4 DROP(S) OTIC BID 10/18/2017 10/31/2017 Inactive Ciprodex 0.3 %-0.1 % ear drops,suspension RxNorm: 349041 Drop(s) 4 DROP(S) OTIC BID 10/18/2017 12/27/2017 Inactive Singulair 10 mg tablet RxNorm: 997888 1 Tablet(s) PO QD 09/30/2017 Inactive diazepam 5 mg/5 mL (1 mg/mL) oral solution RxNorm: 637757 2.5 Milliliter(s) PO QD give additional 5 mg dose if seizure occurs 09/17/2017 No Stop Date A ctive Bactrim DS 800 mg-160 mg tablet RxNorm: 845809 1 Tablet(s) PO BID 0 09/17/2017 09/23/2017 Inactive Ciprodex 0.3 %-0.1 % ear drops,suspension RxNorm: 961511 4 DROP (S) OTIC BID 09/13/2017 10/18/2017 Inactive cefdinir 250 mg/5 mL oral suspension RxNorm: 814402 12 Milliliter(s) PO QD though PEG tube 08/06/2017 08/15/2017 Inactive sertraline 50 mg tablet RxNorm: 969660 1 Tablet(s) PO QHS 08/02/2017 11/04/2017 Inactive Ciprodex 0.3 %-0.1 % ear drops,suspension RxNorm: 642838 4 DROP (S) OTIC BID 07/22/2017 08/11/2017 Inactive Singulair 10 mg tablet RxNorm: 543049 1 Tablet(s) PO QD 06/30/2017 Inactive diazepam 10 mg tablet RxNorm: 561178 TAKE 1 TABLET BY M OUTH EVERY NIGHT AT BEDTIME NEEDED 06/04/2017 07/03/2017 Inactive oxcarbazepine 300 mg/5 mL (60 mg/mL) oral suspension RxNorm: 302070 15 MILLILITER(S) PO BID 05/03/2017 12/16/2017 Inactive sertraline 50 mg tablet RxNorm: 486230 1 Tablet(s) PO QHS 05/03/2017 08/02/2017 Inactive Protonix 40 mg tablet,delayed release RxNorm: 533893 1 Tablet(s) PO or per feeding tube BID 04/26/2017 12/16/2017 Inactive Ciprodex 0.3 %-0.1 % ear drops,suspension RxNorm: 169107 4 DROP (S) OTIC BID 04/26/2017 05/23/2017 Inactive Generlac 10 gram/15 mL oral solution RxNorm: 227915 Mil liliter(s) TAKE 15 ML BY MOUTH TWO-THREE TIMES DAILY 04/08/2017 03/03/2018 Inactive Singulair 10 mg tablet RxNorm: 514512 1 Tablet(s) PO QD 03/03/2017 Inactive diazepam 10 mg tablet RxNorm: 614167 1 Tablet(s) PO QHS as needed 0 02/15/2017 06/04/2017 Inactive Singulair 10 mg tablet RxNorm: 234200 1 Tablet(s) PO QD 12/01/2016 Inactive Diflucan 150 mg tablet RxNorm: 353751 Tablet(s) Give 1 tab PO now and then repeat dose in 5 days 11/10/2016 03/31/2017 Inactive Zithromax 200 mg/5 mL oral suspension RxNorm: 449669 12.5 Dilcia liter(s) PO QD 11/10/2016 11/14/2016 Inactive Singulair 10 mg tablet RxNorm: 909856 TAKE 1 TABLET BY MOUTH ON CE DAILY 11/02/2016 12/01/2016 Inactive diazepam 10 mg tablet RxNorm: 401223 TAKE 1 TABLET BY M OUTH EVERY NIGHT AT BEDTIME NEEDED 10/21/2016 11/19/2016 Inactive sertraline 50 mg tablet RxNorm: 668253 1 Tablet(s) PO QHS 10/12/2016 01/09/2017 Inactive fluconazole 100 mg tablet RxNorm: 376411 1 Tablet(s) PO QD 09/23/19 17 09/24/2016 Inactive fluconazole 100 mg tablet RxNorm: 129215 1 Tablet(s) PO QD 09/23/19 17 09/21/2016 Inactive Bactrim DS 800 mg-160 mg tablet RxNorm: 643102 1 Tablet(s) PO BID 0 09/10/2016 09/09/2016 Inactive Bactrim DS 800 mg-160 mg tablet RxNorm: 465796 1 Tablet(s) PO BID 0 09/10/2016 09/16/2016 Inactive oxcarbazepine 300 mg/5 mL (60 mg/mL) oral suspension RxNorm: 472890 15 Milliliter(s) PO BID 09/07/2016 03/05/2017 Inactive sertraline 50 mg tablet RxNorm: 402513 1 Tablet(s) PO QHS 07/06/2016 10/03/2016 Inactive Pepcid 20 mg tablet RxNorm: 739430 Tablet(s) 1 TABLET(S) PO QHS 08/201603/08/2017 Inactive sertraline 50 mg tablet RxNorm: 104813 1 Tablet(s) PO QHS 06/08/2016 05/03/2017 Inactive Generlac 10 gram/15 mL oral solution RxNorm: 832910 Mil liliter(s) TAKE 15 ML BY MOUTH TWO-THREE TIMES DAILY 06/08/2016 09/08/2016 Inactive Pepcid 20 mg tablet RxNorm: 083767 1 TABLET(S) PO QHS 06/04/201607/2016 Inactive fluconazole 100 mg tablet RxNorm: 707952 1 Tablet(s) QD through PEG tube 05/13/2016 12/01/2017 Inactive Diflucan 150 mg tablet RxNorm: 957067 Give 1 tab PO now and then repeat dose in 5 days 03/19/2016 11/09/2016 Inactive ceftriaxone 1 gram solution for injection RxNorm: 4064819 1 Gram(s) IM QD Wednesday and Wednesday03/19/2016 11/09/2016 Inactive lidocaine 10 mg/mL (1 %) injection solution RxNorm: 9899656 Use as directed to reconstitute Rocephin when needed 03/19/2016 12/13/2017 Inactive Generlac 10 gram/15 mL oral solution RxNorm: 232115 JOE E 15 ML BY MOUTH TWO- THREE TIMES DAILY 03/19/2016 06/07/2016 Inactive oxcarbazepine 300 mg/5 mL oral suspension RxNorm: 120777 15 Milliliter(s) PO BID 03/13/2016 09/07/2016 Inactive Ciprodex 0.3 %-0.1 % ear drops,suspension RxNorm: 805708 4 DROP (S) OTIC BID 03/09/2016 03/15/2016 Inactive cefdinir 250 mg/5 mL oral suspension RxNorm: 599708 11. 75 Milliliter(s) PO QD though PEG tube 03/02/2016 03/08/2016 Inactive cefdinir 250 mg/5 mL oral suspension RxNorm: 261163 11. 75 Milliliter(s) PO QD though PEG tube 02/24/2016 03/01/2016 Inactive cefdinir 250 mg/5 mL oral suspension RxNorm: 443223 11. 75 Milliliter(s) PO QD though PEG tube 02/24/2016 02/23/2016 Inactive Ciprodex 0.3 %-0.1 % ear drops,suspension RxNorm: 071327 4 Drop (s) OTIC BID 02/24/2016 03/01/2016 Inactive Generlac 10 gram/15 mL oral solution RxNorm: 313908 JOE E 15 ML BY MOUTH TWICE DAILY 02/17/2016 03/18/2016 Inactive Generlac 10 gram/15 mL oral solution RxNorm: 321383 15 Millilit er(s) PO BID 01/23/2016 02/16/2016 Inactive Pepcid 20 mg tablet RxNorm: 184750 1 TABLET(S) PO QHS 01/13/201605/07 Inactive Ciprodex 0.3 %-0.1 % ear drops,suspension RxNorm: 122337 4 Drop (s) OTIC BID 12/23/2015 12/29/2015 Inactive sertraline 50 mg tablet RxNorm: 249757 1 Tablet(s) PO QHS 12/16/2015 06/07/2016 Inactive Zithromax 500 mg tablet RxNorm: 735196 1 Tablet(s) PO QD 12/16/2015 0 12/22/2015 Inactive Pepcid 20 mg tablet RxNorm: 008630 1 Tablet(s) PO QHS 12/16/201501/02 Inactive Zithromax 500 mg tablet RxNorm: 144888 1 Tablet(s) PO QD 11/12/2015 0 11/18/2015 Inactive Singulair 10 mg tablet RxNorm: 723415 1 Tablet(s) PO BID 10/16/2015 0 11/11/2015 Inactive diazepam 10 mg tablet RxNorm: 562781 1 Tablet(s) PO QHS 10/07/2015 Inactive diazepam 10 mg tablet RxNorm: 341422 1 Tablet(s) PO QHS 10/07/2015 Inactive fexofenadine 30 mg/5 mL oral suspension RxNorm: 330221 10 Milliliter(s) PO one to two times daily PRN allergies 09/20/2015 12/15/2015 Inactive ceftriaxone 1 gram solution for injection RxNorm: 6065105 1 Gram (s) IM QD 09/20/2015 09/21/2015 Inactive Ciprodex 0.3 %-0.1 % ear drops,suspension RxNorm: 787508 4 Drop (s) OTIC BID 09/20/2015 10/03/2015 Inactive Protonix 40 mg tablet,delayed release RxNorm: 100820 1 Tablet(s) PO or per feeding tube BID 08/21/2015 12/18/2015 Inactive Carafate 100 mg/mL oral suspension RxNorm: 699869 10 Mi lliliter(s) Miscellaneous per feeding tube AC & HS 08/21/2015 09/19/2015 Inactive Zyrtec 10 mg tablet RxNorm: 4298514 1 Tablet(s) PO QD No Start Date Active diazepam 20 mg rectal kit RxNorm: 676853 RTL as needed No Start Date Active Lortab Elixir 10 mg-300 mg/15 mL oral solution RxNorm: 94583 45 8 PO Q6-8H as needed No Start Date Active ondansetron HCl 4 mg/5 mL oral solution RxNorm: 737077 10 Milliliter(s) PO as needed and through tube No Start Date Active sertraline 50 mg tablet RxNorm: 554208 1 Tablet(s) PO QD No Start D ate 12/15/2015 Inactive Brittany 180 mg tablet RxNorm: 937037 1 Tablet(s) PO QD No Start Date 06/12/2018 Inactive Generlac 10 gram/15 mL oral solution RxNorm: 353280 15 Millilit er(s) PO BID No Start Date 01/22/2016 Inactive oxcarbazepine 300 mg/5 mL oral suspension RxNorm: 366321 13.5 Milliliter(s) PO QAM and 15ml in the evening No Start Date 12/15/2015 Inactive Singulair 10 mg tablet RxNorm: 271678 1 Tablet(s) PO QD No Start Da te 11/30/2016 Inactive meclizine 12.5 mg tablet RxNorm: 953235 1 Tablet(s) PO TID as needed for dizziness No Start Date 09/13/2017 Inactive meclizine 12.5 mg tablet RxNorm: 191473 1 Tablet(s) PO BID No Start Date 12/12/2017 Inactive fluconazole 100 mg tablet RxNorm: 321151 1 Tablet(s) QD through PEG tube No Start Date 05/12/2016 Inactive Flomax 0.4 mg capsule RxNorm: 288288 1 Capsule(s) PO QD No Start Da te 06/12/2018 Inactive diazepam 10 mg tablet RxNorm: 164391 1 Tablet(s) PO QHS as needed N o Start Date 02/14/2017 Inactive Generlac 10 gram/15 mL oral solution RxNorm: 040297 15 Milliliter(s) PO two to three times daily No Start Date 03/02/2018 Inactive oxcarbazepine 300 mg/5 mL oral suspension RxNorm: 804958 15 Milliliter(s) PO BID No Start Date 12/15/2017 Inactive Medication Administered No Medication Administered data Immunizations Vaccine Codes Date Status Influenza CVX: 141 04/21/2019 Results No Results data Procedures Procedure Codes Date DEXAMETHASONE SODIUM PHOS CPT-4: J1100 05/03/2019 THER/PROPH/DIAG INJ SC/IM CPT-4: 63114 05/03/2019 CEFTRIAXONE SODIUM INJECTION CPT-4: J0696 03/19/2016 THER/PROPH/DIAG INJ SC/IM CPT-4: 69960 03/19/2016 DEXAMETHASONE SODIUM PHOS CPT-4: J1100 11/12/2015 THER/PROPH/DIAG INJ SC/IM CPT-4: 80217 11/12/2015 CEFTRIAXONE SODIUM INJECTION CPT-4: J0696 09/20/2015 THER/PROPH/DIAG INJ SC/IM CPT-4: 09052 09/20/2015 THER/PROPH/DIAG INJ SC/IM CPT-4: 66853 09/10/2015 METHYLPREDNISOLONE 40 MG INJ CPT-4: J1030 09/10/2015 TRIAMCINOLONE ACET INJ NOS CPT-4: J3301 09/10/2015 Vital Signs Date Vital 06/12/2019 Blood Pressure 1: 112/74 Code: 8480-6 BMI: 23.2 Code: 46570-9 Heart Rate 1: 102 bpm Height: 4'5" [...] 1: 114/70 Code: 8480-6 BMI: 23.1 Code: 35409-7 Heart Rate 1: 80 bpm Height: 4'6" [...] 09/20/2015 otalgia 09/10/2015 ~generic 08/21/2015 New Patient----[facility] visit Encounters Encounter Performer Location Codes Date ([id number]) PREV VISIT EST AGE 18-39 Diagnosis: Encounter for general adult medical examination with abnormal findings[ICD10: Z00.01] Diagnosis: Chronic pancreatitis[ICD10: K86.1] Diagnosis: Cerebral palsy, unspecified[ICD10: G80.9] [facility]ily [facility] CPT-4: 50475 06/12/2019 ([id number]) OFFICE/OUTPATIENT VISIT EST Diagnosis: Pneumonia, organism unspecified[ICD10: J18.9] Diagnosis: Breast mass, right[ICD10: N63.10] Keily [facility] [employer] [facility] CPT-4: 70155 05/08/2019 ([id number]) OFFICE/OUTPATIENT VISIT EST Diagnosis: Allergic rhinitis due to pollen[ICD10: J30.1] Diagnosis: Otitis media, unspecified, right ear[ICD10: H66.91] Fatou [facility] [employer] [facility] CPT-4: 08407 05/03/2019 ([id number]) OFFICE/OUTPATIENT VISIT EST Diagnosis: Irritability and anger[ICD10: R45.4] Nataliia [facility] [employer] [facility] CPT-4: 04166 11/25/2018 ([id number]) OFFICE/OUTPATIENT VISIT EST Diagnosis: Acute suppurative otitis media without spontaneous rupture of ear drum, bilateral[ICD10: H66.003] Fatou [facility] [employer] [facility] CPT-4: 42539 06/13/2018 ([id number]) OFFICE/OUTPATIENT VISIT EST Diagnosis: Other fatigue[ICD10: R53.83] Diagnosis: Anuria and oliguria[ICD10: R34] Diagnosis: Acute gastritis without bleeding[ICD10: K29.00] Fatou [facility] [employer] [facility] CPT-4: 59903 01/04/2018 ([id number]) OFFICE/OUTPATIENT VISIT EST Diagnosis: Acute bronchitis, unspecified[ICD10: J20.9] Fatou [facility] [employer] [facility] CPT-4: 38079 12/31/2017 ([id number]) PREV VISIT EST AGE 18-39 Diagnosis: Encounter for general adult medical examination without abnormal findings[ICD10: Z00.00] Diagnosis: Severe intellectual disabilities[ICD10: F72] Diagnosis: Allergic rhinitis due to pollen[ICD10: J30.1] Diagnosis: Epilepsy, unspecified, intractable, without status epilepticus[ICD10: G40.919] Diagnosis: Gastro-esophageal reflux disease without esophagitis[ICD10: K21.9] Keily Conchita [facility] [employer] CPT-4: 09407 12/14/2017 ([id number]) OFFICE/OUTPATIENT VISIT EST Diagnosis: Allergic rhinitis due to pollen[ICD10: J30.1] Diagnosis: Epilepsy, unspecified, intractable, without status epilepticus[ICD10: G40.919] [facility] 45606 12/02/2017 ([id number]) OFFICE/OUTPATIENT VISIT EST Diagnosis: Other allergic rhinitis[ICD10: J30.89] [facility]ou [facility]: 44978 10/12/2017 OFFICE/OUTPATIENT VISIT EST Diagnosis: Acute suppurative otitis media without spontaneous rupture of ear drum, recurrent, left ear[ICD10: H66.005] Diagnosis: Epilepsy, unspecified, intractable, without status epilepticus[ICD10: G40.919] Diagnosis: Hesitancy of micturition[ICD10: R39.11] [facility]ou [facility] CPT-[facility]: 59235 09/17/2017 OFFICE/OUTPATIENT VISIT EST Diagnosis: Otitis media, unspecified, left ear[ICD10: H66.92] Fatou Bobby [facility] CPT-4: 01600 08/06/2017 ([id number]) OFFICE/OUTPATIENT VISIT EST Diagnosis: Vertigo of central origin, 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.49] Diagnosis: Dizziness and giddiness[ICD10: R42] Keily Bobby [facility] CPT-4: 11354 04/01/2017 OFFICE/OUTPATIENT VISIT EST Diagnosis: Vomiting, unspecified[ICD10: R11.10] Diagnosis: 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)[ICD10: K56.5] Diagnosis: Personal history of urinary calculi[ICD10: Z87.442] Emely Hdz [facility]ILY [facility] CPT-4: 97382 03/01/2017 ([id number]) OFFICE/OUTPATIENT VISIT EST Diagnosis: Allergic rhinitis due to pollen[ICD10: J30.1] Diagnosis: Acute and subacute allergic otitis media (mucoid) (sanguinous) (serous), left ear[ICD10: H65.112] [facility] CPT-4: 47968 11/10/2016 ([id number]) OFFICE/OUTPATIENT VISIT EST Diagnosis: 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] Diagnosis: Unspecified ovarian cyst, right side[ICD10: N83.201] Diagnosis: Cyst of kidney, 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] [facility] CPT-[facility]: 61524 08/13/2016 ([id number]) OFFICE/OUTPATIENT VISIT EST Diagnosis: Rash and other nonspecific skin eruption[ICD10: R21] Aziza [facility] CPT-[facility]: 99373 03/27/2016 ([id number]) OFFICE/OUTPATIENT VISIT EST Diagnosis: Urinary tract infection, site not specified[ICD10: N39.0] [facility] CPT-[facility]: 17350 03/23/2016 ([id number]) OFFICE/OUTPATIENT VISIT EST Diagnosis: Retention of urine, unspecified[ICD10: R33.9] Diagnosis: Dysuria[ICD10: R30.0] Diagnosis: Constipation, unspecified[ICD10: K59.00] Aziza Elpidio [facility] CPT-[facility]: 24060 03/19/2016 ([id number]) OFFICE/OUTPATIENT VISIT EST Diagnosis: Acute sinusitis, unspecified[ICD10: J01.90] [facility] CPT-[facility]: 47645 03/02/2016 OFFICE/OUTPATIENT VISIT EST Diagnosis: Other fatigue[ICD10: R53.83] Diagnosis: Retention of urine, unspecified[ICD10: R33.9] Diagnosis: Dysuria[ICD10: R30.0] Diagnosis: Generalized abdominal pain[ICD10: R10.84] 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] Aziza Magallanes KEILY [facility]amante [facility] CPT-4: 16581 02/24/2016 ([id number]) OFFICE/OUTPATIENT VISIT EST Diagnosis: Chronic mucoid otitis media, right ear[ICD10: H65.31] Diagnosis: Allergic rhinitis, unspecified[ICD10: J30.9] Diagnosis: 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] [facility]: 69308 12/16/2015 ([id number]) OFFICE/OUTPATIENT VISIT EST Diagnosis: Allergic rhinitis, unspecified[ICD10: J30.9] Diagnosis: Acute recurrent sinusitis, unspecified[ICD10: J01.91] [facility]PT[facility]: 80168 11/12/2015 ([id number]) OFFICE/OUTPATIENT VISIT EST Diagnosis: Other seasonal allergic rhinitis[ICD10: J30.2] Diagnosis: Nausea with vomiting, unspecified[ICD10: R11.2] Diagnosis: Epigastric pain[ICD10: R10.13] [facility]: 79113 10/16/2015 OFFICE/OUTPATIENT VISIT EST Diagnosis: Encounter for follow-up examination after completed treatment for conditions other than malignant neoplasm[ICD10: Z09] Diagnosis: Generalized abdominal pain[ICD10: R10.84] [facility]ily [facility]: 65344 09/23/2015 ([id number]) OFFICE/OUTPATIENT VISIT EST Diagnosis: Otitis media, unspecified, right ear[ICD10: H66.91] Diagnosis: Constipation, unspecified[ICD10: K59.00] Diagnosis: Allergic rhinitis, unspecified[ICD10: J30.9] [facility]LINE [facility] 72070 09/20/2015 OFFICE/OUTPATIENT VISIT EST Diagnosis: Allergic rhinitis, unspecified[ICD10: J30.9] Diagnosis: Unspecified perforation of tympanic membrane, right ear[ICD10: H72.91] Bibiana Garg [facility]: 15702 09/10/2015 OFFICE/OUTPATIENT VISIT NEW Diagnosis: Epilepsy, unspecified, intractable, without status epilepticus[ICD10: G40.919] Diagnosis: Gastric ulcer, unspecified as acute or chronic, without hemorrhage or perforation[ICD10: K25.9] Diagnosis: Severe intellectual disabilities[ICD10: F72] Keily ARANGO DO [facility] CPT-4: 74845 08/21/2015 Plan of Care Planned Activity Notes [...] J18.9 05/08/2019 Appointment: [phone] [facility] [facility] 05/08/2019 Visit Diagnosis [...] : J30.1 05/03/2019 Appointment: Fatou Onofre [address] [place], [place] [id number] 05/03/2019 Patient Education: amoxicillin- Opt[employer] Coupon [phone] [email or web address]/samplemd/resources/getResource/[email or web address] Completed 05/03/2019 Visit Diagnosis Plan: Irritability and [...] R45.4 11/25/2018 Appointment: Nataliia Hsieh [address] ACUTE ILLNESS 11/25/2018 Visit Diagnosis Plan: Acute suppurative otitis media without spontaneous rupture of ear drum, bilateral Discussion: cefdinir for 10 days. if wor sening symptoms later this week, call clinic. push fluids and tylenol/ibuprofen prn pain or fever. ICD-9 : 382.00 ICD-10 : H66.003 06/13/2018 Appointment: Fatou Onofre [address] [place] [address] ACUTE ILLNESS 06/13/2018 Visit Diagnosis Plan: Anuria [...] ICD-10 : R53.83 01/04/2018 Appointment: Fatou Onofre [address] [place], [place] [id number] ACUTE ILLNESS 01/04/2018 Patient Education: Patient Medication Summary Completed 01/04/2018 Visit Diagnosis Plan: Acute bronchitis, unspecified Di scussion: zithromax prescribed to take as directed. continue with allergy meds including flonase to help dry congestion. call office next week if new or worsening symptoms. ICD-9 : 466.0 ICD-10 : J20.9 12/31/2017 Appointment: Fatou Onofre [address] [place], [place] [id number] ACUTE ILLNESS 12/31/2017 Patient Education: Patient Medication Summary Completed 12/31/2017 Visit Diagnosis Plan: Epilepsy, unspecif ied, intractable, without status epilepticus Discussion: Stable on current regimen ICD-9 : 345.91 ICD-10 : G40.919 12/14/2017 Visit Diagnosis Plan: [facility] without abnormal findings Discussion: Had recent lab done Follow Up: 3 months ICD-9 : V70.9 ICD-10 : Z00.00 12/14/2017 Visit Diagnosis Plan: Allergic rhinitis due to pollen Discussion: Continue current meds Change night time protonix to pepcid for total histamine blockade ICD-9 : 477.9 ICD-10 : J30.1 12/14/2017 Appointment: Keily Arango WPtel: [address] [place] [address] CHECK UP 12/14/2017 Patient Education: Patient Medication [...] : G40.919 12/02/2017 Appointment: Keily Arango WPtel: [address] [place] [address] ACUTE ILLNESS 12/02/2017 Patient Education: Patient Medication Summary Completed 12/02/2017 Visit Diagnosis Plan: Other allergic rhinitis Discussi on: symptoms most likely caused from allergies. patient sent to hospital for decadron injection. instructed to restart patient's flonase at home. if new or worsening symptoms, call or rtc. ICD-9 : 477.8 ICD-10 : J30.89 10/12/2017 Appointment: Fatou Onofre [address] [place] [address] ACUTE ILLNESS 10/12/2017 Patient Education: Patient Medication [...] ICD-10 : R39.11 09/17/2017 Appointment: Fatou Onofre [address] [place] [address] ACUTE ILLNESS 09/17/2017 Patient Education: Patient Medication Summary Completed 09/17/2017 Visit Diagnosis Plan: Otitis media, unspecified, left ear Discussion: cefdinir prescribed daily for 10 days. instructed to administer tylenol/ibuprofen for pain or fever. if no improvement, or worsening symptoms, call or rtc. ICD-9 : 380.14 ICD-10 : H66.92 08/06/2017 Appointment: Fatou Onofre [address] [place] [address] ACUTE ILLNESS 08/06/2017 Patient Education: Patient Medication Summary Completed 08/06/2017 Patient Education: Patient Medication Summary Completed 08/02/2017 Patient Education: Patient Medication Summary Completed 04/21/2017 Care Plan: MRI BRAIN STEM W/O DYE LOINC : 65129-7 Pending 04/21/2017 Patient Education: Patient Medication Summary Completed 04/20/2017 Care Plan: MRI BRAIN STEM W/O DYE LOINC : 36918-8 Pending 04/20/2017 Visit Diagnosis Plan: Vertigo of central origin, unspe cified ear Discussion: Continue meclizine at 12.5mg po BID for 2 more weeks then go to 12.5mg daily for 2 weeks then 6.25mg daily for 2 weeks then stop Notify if any symptoms return with weaning process ICD-9 : 386.2 ICD-10 : H81.49 04/01/2017 Appointment: Keily Arango WPtel: [id number] FOLLOW UP 04/01/2017 Patient Education: Patient Medication Summary Completed 04/01/2017 Patient Education: Patient Medication Summary Completed 03/09/2017 Care Plan: CT HEAD/BRAIN W/O DYE LOINC : 23154-1 Pending 03/09/2017 Visit Plan: It's difficult to [...] indicated. 03/01/2017 Appointment: Emely Hdz WPtel: [address] [place] [address] ACUTE ILLNESS 03/01/2017 Patient Education: Patient Medication Summary Completed 03/01/2017 Patient Education: Patient Medication Summary Completed 12/17/2016 Visit Diagnosis Plan: Allergic rhinitis due to pollen Discussion: Continue zyrtec/singulair ICD-9 : 477.9 ICD-10 : J30.1 11/10/2016 Visit Diagnosis Plan: Acute and subacute allergic otitis media (mucoid) (sanguinous) (serous), left ear Discussion: Zithromax ICD-9 : 381.05 ICD-10 : H65.112 11/10/2016 Appointment: Keily Arango WPtel: [id number] ACUTE ILLNESS 11/10/2016 Patient Education: Patient Medication Summary Completed 11/10/2016 Patient Education: Patient Medication Summary Completed 09/07/2016 Care Plan: URINALYSIS AUTO W/[place] : 93325-3 Pending 09/07/2016 Visit Diagnosis Plan: Unspecified ovarian [...] with results 03/27/2016 Appointment: Aziza Magallanes [address] [id number] 03/27/2016 Patient Education: Patient Medication Summary Completed 03/27/2016 Visit Plan: Go for dose of rocephin 1gm IM today and tomorrow then done Diflucan 150mg x1 today Discussed with mom via phone about urology fwup--she will talk with her and let us know 03/23/2016 Appointment: [phone] [facility] 03/23 confirmed ~sl FOLLOW UP 03/23/2016 Patient Education: Patient Medication Summary Completed 03/23/2016 Visit Plan: Per Dr Arango, straight cat h for UA and culture today Ok to have a standing order for further UA needs at for straight cath Rocephin IM today and daily through Wednesday Mom has arranged a family friend that is an [employer] to give Wednesday and Sundays injections - rxs for rocephin and lido sent to [facility] cannot order the lido in the qty patient needs) Dr Arango wants patient to be re-evaluated on Wednesday in clinic Referral to Urology for recurrent UTIs and urinary retention - mom wants to research who she wants her sent to and let us know 03/19/2016 Appointment: Aziza Magallanes [address] [place], [place] [id number] 03/19/2016 Patient Education: Patient Medication Summary Completed 03/19/2016 Visit Plan: 1 more week of cefdinir 03/02/2016 Appointment: Keily Arango WPtel: [address] [place], [place] [phone] 03/02 confirmed~sl WORK IN 03/02/2016 Patient Education: [...] seen if worsening 02/24/2016 Appointment: Aziza Magallanes [address] [place], [place] [id number] 02/24/2016 Patient Education: Patient Medication Summary Completed 02/24/2016 Care Plan: CHEST X-RAY 2VW FRONTAL&LATL LOINC : 90187-7 Pending 02/24/2016 Care Plan: X-RAY EXAM OF ABDOMEN LOINC : 71449-9 Pending 02/24/2016 Visit Plan: Repeat zithromax x1 week Cip rodex to right ear x1 week Add Pepcid q HS x2-4 weeks for total histamine blockade and for extra stomach protection while on zithromax 12/16/2015 Appointment: Keily Arango WPtel: [id number] 12/11 lm~sl 12/12 lm ~sl FOLLOW UP 12/16/2015 Patient Education: Patient Medication Summary Completed 12/16/2015 Patient Education: [facility] - Saving [employer] - Sertraline HCL - 18-64 - Dynamic Portal ID Completed 12/16/2015 Visit Plan: Saline nasal flushes prn. Ty lenol/Motrin prn headache. Notify if persists/symptoms worsens Dexamethasone given 11/12/2015 Appointment: Keily Arango WPtel: [address] [place], [place] [phone] [place] 5/ lm~sl 11/11 lm~sl 11/11 confirm-sp [...] visits for Belkys 10/16/2015 Appointment: Aziza Magallanes [address] [place], [place] [phone] ACUTE ILLNESS 10/16/2015 Patient Education: Patient Medication Summary Completed 10/16/2015 Appointment: Aziza Magallanes [address] [place], [place] [phone] [place] canceled, feeling better CANCELED 016 Visit Plan: No further abx needed Go mariela k to jevity for next 3 days and restart carafate Notify if abdominal pain worsens 09/23/2015 Appointment: Keily Arango WPtel: [id number] 09/19 confirmed-sp FOLLOW [...] sent to [facility] since [facility] does not have in stock. [...] try for now. 09/20/2015 Appointment: Aziza Magallanes [address] [facility] ACUTE ILLNESS 09/20/2015 Patient Education: Patient Medication Summary Completed 09/20/2015 Visit Plan: Depo Medrol 40mg/ Kenalog 40 mg IM today Resume Ciprodex otic gtts. bid to Rt. ear 09/10/2015 Appointment: Bibiana Garg WPtel: [phone] [facility] 09/08 confirmed-sp ACUTE ILLNESS 09/10/2015 Patient Education: Patient Medication Summary Completed 09/10/2015 Visit Plan: Increase Protonix to 40mg po BID for 1month Continue carafate at q AC dosing for full month then wean off Jevity for 2 more days then advance diet if able Continue current meds 08/21/2015 Appointment: [phone] [facility] [facility] NEW PATIENT 08/21/2015 Patient Education: Patient [...] arranged a family friend that is an [employer] to give Wednesday and Sundays injections - [...] sent to [facility] since [facility] does not have in stock. [...]
--- OUTSIDE RECORDS SUMMARY | 2019-11-10 19:43 | XMS REPORT | CCD ---
Author Author Belkys Arango D.O. Organization KEILY ARANGO DO [facility] Address [address] [place] [address] Phone Care Team Providers Care Publication Editor Name Role Phone Keily Arango D.O., PP Unavailable CCM Unavailable Summary Purpose Interface Exchange Insurance Providers Payer name Policy type / Coverage type Covered alliance party ID Effective Begin Date Effective End Date [employer] [facility] [place] Medicaid [id number] U nknown Family History Family History data not found Social History Social History Element Codes Description Effective Dates Marital status Unknown Single 08/21/2015 Employment Unknown Currently unemployed Physically handicapped 08/21/[address]: 261047685 Has never smoked or chewed tobacco 08/21/[address]: 617279267 Never drinks alcohol 2015 Allergies, Adverse Reactions, [...] unit-126,000 unit-168,000 unit capsule,d elayed release RxNorm: 7061252 1 Capsule(s) Oral AC 06/12/2019 10/10/2019 Active Zenpep 40,000 unit-126,000 unit-168,000 unit capsule,d elayed release RxNorm: 6309414 1 Capsule(s) Oral AC 05/24/2019 05/23/2019 Inactive Zenpep 40,000 unit-126,000 unit-168,000 unit capsule,d elayed release RxNorm: 6042427 1 Capsule(s) Oral AC 05/24/2019 06/11/2019 Inactive Ciprodex 0.3 %-0.1 % ear drops,suspension RxNorm: 734757 DROP(S) 4 DROP(S) OTIC BID 05/22/2019 06/18/2019 Active oxcarbazepine 300 mg/5 mL (60 mg/mL) oral suspension RxNorm: 933320 15 Milliliter(s) Oral two times a day 05/08/2019 11/03/2019 Active meclizine 12.5 mg tablet RxNorm: 001652 1 TABLET(S) PO TID NEEDE D 05/05/2019 08/02/2019 Active change in quantity Zithromax 200 mg/5 mL oral suspension RxNorm: 050708 12.5 Dilcia liter(s) Oral QD 05/04/2019 05/09/2019 Inactive amoxicillin 400 mg/5 mL oral suspension RxNorm: 079840 10 Milliliter(s) Oral two times a day 05/03/2019 05/13/2019 Inactive Singulair 10 mg tablet RxNorm: 149558 1 TABLET(S) PO QD 03/28/2019 Active Macrobid 100 mg capsule RxNorm: 437985 1 Capsule(s) PO BID 03/16/2003/22/2019 Inactive meclizine 12.5 mg tablet RxNorm: 238527 1 Tablet(s) PO TID as neede d 03/10/2019 05/04/2019 Inactive change in quantity Ciprodex 0.3 %-0.1 % ear drops,suspension RxNorm: 802038 DROP(S) 4 DROP(S) OTIC BID 03/08/2019 04/04/2019 Inactive oxcarbazepine 300 mg/5 mL (60 mg/mL) oral suspension RxNorm: 577541 15 Milliliter(s) PO BID 03/07/2019 05/07/2019 Inactive Macrobid 100 mg capsule RxNorm: 314125 1 Capsule(s) PO BID 02/21/2003/01/2019 Inactive Macrobid 100 mg capsule RxNorm: 038649 1 Capsule(s) PO BID 02/21/2002/19/2019 Inactive meclizine 12.5 mg tablet RxNorm: 854351 1 Tablet(s) PO TID as neede d 02/06/2019 03/07/2019 Inactive change in quantity Ciprodex 0.3 %-0.1 % ear drops,suspension RxNorm: 922661 DROP(S) 4 DROP(S) OTIC BID 01/30/2019 02/12/2019 Inactive diazepam 10 mg tablet RxNorm: 782976 1 Tablet(s) PO QHS as needed 0 01/27/2019 03/27/2019 Inactive sertraline 50 mg tablet RxNorm: 711270 1 Tablet(s) PO QHS 12/29/2018 06/26/2019 Active famotidine 20 mg tablet RxNorm: 525593 1 Tablet(s) PO QHS 12/29/2018 06/26/2019 Active Ciprodex 0.3 %-0.1 % ear drops,suspension RxNorm: 613288 DROP(S) 4 DROP(S) OTIC BID 12/14/2018 12/27/2018 Inactive Generlac 10 gram/15 mL oral solution RxNorm: 877716 15 Milliliter(s) PO TWO TO THREE TIMES DAILY 12/06/2018 06/03/2019 Inactive Protonix 40 mg tablet,delayed release RxNorm: 290771 1 Tablet(s) PO or per feeding tube BID 11/24/2018 05/22/2019 Inactive meclizine 12.5 mg tablet RxNorm: 091500 1 Tablet(s) PO TID as neede d 11/11/2018 02/06/2019 Inactive change in quantity Ciprodex 0.3 %-0.1 % ear drops,suspension RxNorm: 307609 DROP(S) 4 DROP(S) OTIC BID 11/08/2018 11/21/2018 Inactive diazepam 10 mg tablet RxNorm: 480515 1 Tablet(s) PO QHS as needed 0 10/21/2018 11/19/2018 Inactive Generlac 10 gram/15 mL oral solution RxNorm: 920784 Mil liliter(s) 15 MILLILITER(S) PO TWO TO THREE TIMES DAILY 10/07/2018 11/05/2018 Inacti ve Ciprodex 0.3 %-0.1 % ear drops,suspension RxNorm: 109476 DROP(S) DROP(S) 4 DROP(S) OTIC BID 08/26/2018 03/15/2019 Inactive meclizine 12.5 mg tablet RxNorm: 688528 1 TABLET(S) PO TID NEEDE D 07/25/2018 10/22/2018 Inactive change in quantity oxcarbazepine 300 mg/5 mL (60 mg/mL) oral suspension RxNorm: 290276 15 Milliliter(s) PO BID 07/08/2018 07/07/2018 Inactive oxcarbazepine 300 mg/5 mL (60 mg/mL) oral suspension RxNorm: 300887 15 Milliliter(s) PO BID 07/08/2018 01/03/2019 Inactive sertraline 50 mg tablet RxNorm: 114516 1 TABLET(S) PO QHS 07/06/2018 12/28/2018 Inactive Singulair 10 mg tablet RxNorm: 123858 1 TABLET(S) PO QD 06/24/2018 Inactive Ciprodex 0.3 %-0.1 % ear drops,suspension RxNorm: 778931 DROP(S) 4 DROP(S) OTIC BID 06/20/2018 06/19/2018 Inactive Ciprodex 0.3 %-0.1 % ear drops,suspension RxNorm: 999253 Drop(s) DROP(S) 4 DROP(S) OTIC BID 06/20/2018 07/03/2018 Inactive cefdinir 250 mg/5 mL oral suspension RxNorm: 625274 12 Milliliter(s) PO QD though PEG tube 06/13/2018 06/22/2018 Inactive famotidine 20 mg tablet RxNorm: 363113 1 Tablet(s) PO QHS 05/31/2018 11/26/2018 Inactive famotidine 40 mg/5 mL (8 mg/mL) oral suspension RxNorm: 3102 74 2.5 Milliliter(s) PO QHS 04/29/2018 06/12/2018 Inactive meclizine 12.5 mg tablet RxNorm: 869036 1 TABLET(S) PO TID NEEDE D 04/25/2018 07/23/2018 Inactive change in quantity Generlac 10 gram/15 mL oral solution RxNorm: 607832 Mil liliter(s) 15 MILLILITER(S) PO TWO TO THREE TIMES DAILY 04/04/2018 05/03/2018 Inacti ve Ciprodex 0.3 %-0.1 % ear drops,suspension RxNorm: 463844 Drop(s) 4 DROP(S) OTIC BID 04/04/2018 04/17/2018 Inactive diazepam 10 mg tablet RxNorm: 392625 1 Tablet(s) PO QHS as needed 1 05/03/2018 Inactive famotidine 40 mg/5 mL (8 mg/mL) oral suspension RxNorm: 3102 74 2.5 Milliliter(s) PO QHS 04/04/2018 04/28/2018 Inactive Generlac 10 gram/15 mL oral solution RxNorm: 877900 15 MILLILITER(S) PO TWO TO THREE TIMES DAILY 03/24/2018 04/03/2018 Inactive Singulair 10 mg tablet RxNorm: 783055 1 TABLET(S) PO QD 03/18/2018 Inactive Ciprodex 0.3 %-0.1 % ear drops,suspension RxNorm: 629273 Drop(s) 4 DROP(S) OTIC BID 03/08/2018 03/21/2018 Inactive Generlac 10 gram/15 mL oral solution RxNorm: 122145 15 Milliliter(s) PO two to three times daily 03/03/2018 03/23/2018 Inactive meclizine 12.5 mg tablet RxNorm: 453193 1 Tablet(s) PO TID as neede d 02/10/2018 04/10/2018 Inactive change in quantity meclizine 12.5 mg tablet RxNorm: 190033 1 Tablet(s) PO BID as neede d 02/07/2018 02/09/2018 Inactive change in quantity Ciprodex 0.3 %-0.1 % ear drops,suspension RxNorm: 136018 Drop(s) 4 DROP(S) OTIC BID 02/02/2018 03/08/2018 Inactive sertraline 50 mg tablet RxNorm: 241790 1 TABLET(S) PO QHS 01/25/2018 07/05/2018 Inactive Zithromax 200 mg/5 mL oral suspension RxNorm: 752723 12.5 Dilcia liter(s) PO QD 12/31/2017 01/04/2018 Inactive Pepcid 20 mg tablet RxNorm: 490737 TABLET(S) 1 TABLET(S) PO QHS 04/29/2018 Inactive famotidine 40 mg/5 mL (8 mg/mL) oral suspension RxNorm: 3102 74 2.5 Milliliter(s) PO QHS 12/28/2017 12/27/2017 Inactive famotidine 40 mg/5 mL (8 mg/mL) oral suspension RxNorm: 3102 74 2.5 Milliliter(s) PO QHS 12/28/2017 04/03/2018 Inactive Ciprodex 0.3 %-0.1 % ear drops,suspension RxNorm: 916171 Drop(s) 4 DROP(S) OTIC BID 12/27/2017 02/02/2018 Inactive meclizine 12.5 mg tablet RxNorm: 747264 1 Tablet(s) PO BID as neede d 12/23/2017 02/06/2018 Inactive change in quantity Protonix 40 mg tablet,delayed release RxNorm: 675222 1 Tablet(s) PO or per feeding tube BID 12/16/2017 07/13/2018 Inactive oxcarbazepine 300 mg/5 mL (60 mg/mL) oral suspension RxNorm: 009341 15 Milliliter(s) PO BID 12/16/2017 07/08/2018 Inactive meclizine 12.5 mg tablet RxNorm: 684501 1 Tablet(s) PO BID as neede d 12/15/2017 02/07/2018 Inactive change in quantity Pepcid 40 mg/5 mL (8 mg/mL) oral suspension RxNorm: 511218 5 Milliliter(s) PO QHS to replace nighttime pantoprazole dose 12/14/2017 12/27/2017 Inact марина meclizine 12.5 mg tablet RxNorm: 977810 1 Tablet(s) PO BID as neede d 12/13/2017 12/23/2017 Inactive diazepam 10 mg tablet RxNorm: 327946 1 Tablet(s) PO QHS as needed 0 12/02/2017 03/01/2018 Inactive prednisolone 15 mg/5 mL oral solution RxNorm: 820325 5 Milliliter(s) PO BID for 3 days then 5ml daily for 3 days then 2.5ml daily for 3 days 12/02/2017 12/13/2017 Inactive sertraline 50 mg tablet RxNorm: 201631 1 Tablet(s) PO QHS 11/04/2017 01/24/2018 Inactive Ciprodex 0.3 %-0.1 % ear drops,suspension RxNorm: 005365 Drop(s) 4 DROP(S) OTIC BID 10/18/2017 10/31/2017 Inactive Ciprodex 0.3 %-0.1 % ear drops,suspension RxNorm: 827358 Drop(s) 4 DROP(S) OTIC BID 10/18/2017 12/27/2017 Inactive Singulair 10 mg tablet RxNorm: 477589 1 Tablet(s) PO QD 09/30/2017 Inactive diazepam 5 mg/5 mL (1 mg/mL) oral solution RxNorm: 922231 2.5 Milliliter(s) PO QD give additional 5 mg dose if seizure occurs 09/17/2017 No Stop Date A ctive Bactrim DS 800 mg-160 mg tablet RxNorm: 398428 1 Tablet(s) PO BID 0 09/17/2017 09/23/2017 Inactive Ciprodex 0.3 %-0.1 % ear drops,suspension RxNorm: 487443 4 DROP (S) OTIC BID 09/13/2017 10/18/2017 Inactive cefdinir 250 mg/5 mL oral suspension RxNorm: 106718 12 Milliliter(s) PO QD though PEG tube 08/06/2017 08/15/2017 Inactive sertraline 50 mg tablet RxNorm: 550465 1 Tablet(s) PO QHS 08/02/2017 11/04/2017 Inactive Ciprodex 0.3 %-0.1 % ear drops,suspension RxNorm: 711292 4 DROP (S) OTIC BID 07/22/2017 08/11/2017 Inactive Singulair 10 mg tablet RxNorm: 425910 1 Tablet(s) PO QD 06/30/2017 Inactive diazepam 10 mg tablet RxNorm: 739153 TAKE 1 TABLET BY M OUTH EVERY NIGHT AT BEDTIME NEEDED 06/04/2017 07/03/2017 Inactive oxcarbazepine 300 mg/5 mL (60 mg/mL) oral suspension RxNorm: 725650 15 MILLILITER(S) PO BID 05/03/2017 12/16/2017 Inactive sertraline 50 mg tablet RxNorm: 120511 1 Tablet(s) PO QHS 05/03/2017 08/02/2017 Inactive Protonix 40 mg tablet,delayed release RxNorm: 223020 1 Tablet(s) PO or per feeding tube BID 04/26/2017 12/16/2017 Inactive Ciprodex 0.3 %-0.1 % ear drops,suspension RxNorm: 815578 4 DROP (S) OTIC BID 04/26/2017 05/23/2017 Inactive Generlac 10 gram/15 mL oral solution RxNorm: 415395 Mil liliter(s) TAKE 15 ML BY MOUTH TWO-THREE TIMES DAILY 04/08/2017 03/03/2018 Inactive Singulair 10 mg tablet RxNorm: 800734 1 Tablet(s) PO QD 03/03/2017 Inactive diazepam 10 mg tablet RxNorm: 693120 1 Tablet(s) PO QHS as needed 0 02/15/2017 06/04/2017 Inactive Singulair 10 mg tablet RxNorm: 483912 1 Tablet(s) PO QD 12/01/2016 Inactive Diflucan 150 mg tablet RxNorm: 859678 Tablet(s) Give 1 tab PO now and then repeat dose in 5 days 11/10/2016 03/31/2017 Inactive Zithromax 200 mg/5 mL oral suspension RxNorm: 297039 12.5 Dilcia liter(s) PO QD 11/10/2016 11/14/2016 Inactive Singulair 10 mg tablet RxNorm: 688955 TAKE 1 TABLET BY MOUTH ON CE DAILY 11/02/2016 12/01/2016 Inactive diazepam 10 mg tablet RxNorm: 660973 TAKE 1 TABLET BY M OUTH EVERY NIGHT AT BEDTIME NEEDED 10/21/2016 11/19/2016 Inactive sertraline 50 mg tablet RxNorm: 538822 1 Tablet(s) PO QHS 10/12/2016 01/09/2017 Inactive fluconazole 100 mg tablet RxNorm: 922950 1 Tablet(s) PO QD 09/23/19 17 09/24/2016 Inactive fluconazole 100 mg tablet RxNorm: 785241 1 Tablet(s) PO QD 09/23/19 17 09/21/2016 Inactive Bactrim DS 800 mg-160 mg tablet RxNorm: 994629 1 Tablet(s) PO BID 0 09/10/2016 09/09/2016 Inactive Bactrim DS 800 mg-160 mg tablet RxNorm: 185079 1 Tablet(s) PO BID 0 09/10/2016 09/16/2016 Inactive oxcarbazepine 300 mg/5 mL (60 mg/mL) oral suspension RxNorm: 156812 15 Milliliter(s) PO BID 09/07/2016 03/05/2017 Inactive sertraline 50 mg tablet RxNorm: 351657 1 Tablet(s) PO QHS 07/06/2016 10/03/2016 Inactive Pepcid 20 mg tablet RxNorm: 169824 Tablet(s) 1 TABLET(S) PO QHS 08/201603/08/2017 Inactive sertraline 50 mg tablet RxNorm: 630974 1 Tablet(s) PO QHS 06/08/2016 05/03/2017 Inactive Generlac 10 gram/15 mL oral solution RxNorm: 038152 Mil liliter(s) TAKE 15 ML BY MOUTH TWO-THREE TIMES DAILY 06/08/2016 09/08/2016 Inactive Pepcid 20 mg tablet RxNorm: 867857 1 TABLET(S) PO QHS 06/04/201607/2016 Inactive fluconazole 100 mg tablet RxNorm: 819097 1 Tablet(s) QD through PEG tube 05/13/2016 12/01/2017 Inactive Diflucan 150 mg tablet RxNorm: 179962 Give 1 tab PO now and then repeat dose in 5 days 03/19/2016 11/09/2016 Inactive ceftriaxone 1 gram solution for injection RxNorm: 8656641 1 Gram(s) IM QD Wednesday and Wednesday03/19/2016 11/09/2016 Inactive lidocaine 10 mg/mL (1 %) injection solution RxNorm: 6169881 Use as directed to reconstitute Rocephin when needed 03/19/2016 12/13/2017 Inactive Generlac 10 gram/15 mL oral solution RxNorm: 359153 JOE E 15 ML BY MOUTH TWO- THREE TIMES DAILY 03/19/2016 06/07/2016 Inactive oxcarbazepine 300 mg/5 mL oral suspension RxNorm: 476507 15 Milliliter(s) PO BID 03/13/2016 09/07/2016 Inactive Ciprodex 0.3 %-0.1 % ear drops,suspension RxNorm: 537371 4 DROP (S) OTIC BID 03/09/2016 03/15/2016 Inactive cefdinir 250 mg/5 mL oral suspension RxNorm: 514857 11. 75 Milliliter(s) PO QD though PEG tube 03/02/2016 03/08/2016 Inactive cefdinir 250 mg/5 mL oral suspension RxNorm: 724676 11. 75 Milliliter(s) PO QD though PEG tube 02/24/2016 03/01/2016 Inactive cefdinir 250 mg/5 mL oral suspension RxNorm: 213507 11. 75 Milliliter(s) PO QD though PEG tube 02/24/2016 02/23/2016 Inactive Ciprodex 0.3 %-0.1 % ear drops,suspension RxNorm: 674473 4 Drop (s) OTIC BID 02/24/2016 03/01/2016 Inactive Generlac 10 gram/15 mL oral solution RxNorm: 650745 JOE E 15 ML BY MOUTH TWICE DAILY 02/17/2016 03/18/2016 Inactive Generlac 10 gram/15 mL oral solution RxNorm: 195034 15 Millilit er(s) PO BID 01/23/2016 02/16/2016 Inactive Pepcid 20 mg tablet RxNorm: 044891 1 TABLET(S) PO QHS 01/13/201605/07 Inactive Ciprodex 0.3 %-0.1 % ear drops,suspension RxNorm: 291059 4 Drop (s) OTIC BID 12/23/2015 12/29/2015 Inactive sertraline 50 mg tablet RxNorm: 407358 1 Tablet(s) PO QHS 12/16/2015 06/07/2016 Inactive Zithromax 500 mg tablet RxNorm: 929872 1 Tablet(s) PO QD 12/16/2015 0 12/22/2015 Inactive Pepcid 20 mg tablet RxNorm: 807983 1 Tablet(s) PO QHS 12/16/201501/02 Inactive Zithromax 500 mg tablet RxNorm: 709040 1 Tablet(s) PO QD 11/12/2015 0 11/18/2015 Inactive Singulair 10 mg tablet RxNorm: 057139 1 Tablet(s) PO BID 10/16/2015 0 11/11/2015 Inactive diazepam 10 mg tablet RxNorm: 430743 1 Tablet(s) PO QHS 10/07/2015 Inactive diazepam 10 mg tablet RxNorm: 814259 1 Tablet(s) PO QHS 10/07/2015 Inactive fexofenadine 30 mg/5 mL oral suspension RxNorm: 611570 10 Milliliter(s) PO one to two times daily PRN allergies 09/20/2015 12/15/2015 Inactive ceftriaxone 1 gram solution for injection RxNorm: 7708301 1 Gram (s) IM QD 09/20/2015 09/21/2015 Inactive Ciprodex 0.3 %-0.1 % ear drops,suspension RxNorm: 531524 4 Drop (s) OTIC BID 09/20/2015 10/03/2015 Inactive Protonix 40 mg tablet,delayed release RxNorm: 962328 1 Tablet(s) PO or per feeding tube BID 08/21/2015 12/18/2015 Inactive Carafate 100 mg/mL oral suspension RxNorm: 253832 10 Mi lliliter(s) Miscellaneous per feeding tube AC & HS 08/21/2015 09/19/2015 Inactive Zyrtec 10 mg tablet RxNorm: 5197306 1 Tablet(s) PO QD No Start Date Active diazepam 20 mg rectal kit RxNorm: 336352 RTL as needed No Start Date Active Lortab Elixir 10 mg-300 mg/15 mL oral solution RxNorm: 03105 45 8 PO Q6-8H as needed No Start Date Active ondansetron HCl 4 mg/5 mL oral solution RxNorm: 386298 10 Milliliter(s) PO as needed and through tube No Start Date Active sertraline 50 mg tablet RxNorm: 858996 1 Tablet(s) PO QD No Start D ate 12/15/2015 Inactive Brittany 180 mg tablet RxNorm: 075967 1 Tablet(s) PO QD No Start Date 06/12/2018 Inactive Generlac 10 gram/15 mL oral solution RxNorm: 754124 15 Millilit er(s) PO BID No Start Date 01/22/2016 Inactive oxcarbazepine 300 mg/5 mL oral suspension RxNorm: 823041 13.5 Milliliter(s) PO QAM and 15ml in the evening No Start Date 12/15/2015 Inactive Singulair 10 mg tablet RxNorm: 925712 1 Tablet(s) PO QD No Start Da te 11/30/2016 Inactive meclizine 12.5 mg tablet RxNorm: 237283 1 Tablet(s) PO TID as needed for dizziness No Start Date 09/13/2017 Inactive meclizine 12.5 mg tablet RxNorm: 359468 1 Tablet(s) PO BID No Start Date 12/12/2017 Inactive fluconazole 100 mg tablet RxNorm: 991073 1 Tablet(s) QD through PEG tube No Start Date 05/12/2016 Inactive Flomax 0.4 mg capsule RxNorm: 301802 1 Capsule(s) PO QD No Start Da te 06/12/2018 Inactive diazepam 10 mg tablet RxNorm: 979452 1 Tablet(s) PO QHS as needed N o Start Date 02/14/2017 Inactive Generlac 10 gram/15 mL oral solution RxNorm: 372075 15 Milliliter(s) PO two to three times daily No Start Date 03/02/2018 Inactive oxcarbazepine 300 mg/5 mL oral suspension RxNorm: 482504 15 Milliliter(s) PO BID No Start Date 12/15/2017 Inactive Medication Administered No Medication Administered data Immunizations Vaccine Codes Date Status Influenza CVX: 141 04/21/2019 Results No Results data Procedures Procedure Codes Date DEXAMETHASONE SODIUM PHOS CPT-4: J1100 05/03/2019 THER/PROPH/DIAG INJ SC/IM CPT-4: 65023 05/03/2019 CEFTRIAXONE SODIUM INJECTION CPT-4: J0696 03/19/2016 THER/PROPH/DIAG INJ SC/IM CPT-4: 65073 03/19/2016 DEXAMETHASONE SODIUM PHOS CPT-4: J1100 11/12/2015 THER/PROPH/DIAG INJ SC/IM CPT-4: 28480 11/12/2015 CEFTRIAXONE SODIUM INJECTION CPT-4: J0696 09/20/2015 THER/PROPH/DIAG INJ SC/IM CPT-4: 63287 09/20/2015 THER/PROPH/DIAG INJ SC/IM CPT-4: 22309 09/10/2015 METHYLPREDNISOLONE 40 MG INJ CPT-4: J1030 09/10/2015 TRIAMCINOLONE ACET INJ NOS CPT-4: J3301 09/10/2015 Vital Signs Date Vital 06/12/2019 Blood Pressure 1: 112/74 Code: 8480-6 BMI: 23.2 Code: 21287-0 Heart Rate 1: 102 bpm Height: 4'5" [...] 1: 114/70 Code: 8480-6 BMI: 23.1 Code: 47675-9 Heart Rate 1: 80 bpm Height: 4'6" [...] 09/20/2015 otalgia 09/10/2015 ~generic 08/21/2015 New Patient----[facility] visit Encounters Encounter Performer Location Codes Date ([id number]) PREV VISIT EST AGE 18-39 Diagnosis: Encounter for general adult medical examination with abnormal findings[ICD10: Z00.01] Diagnosis: Chronic pancreatitis[ICD10: K86.1] Diagnosis: Cerebral palsy, unspecified[ICD10: G80.9] Keily ARANGO [facility] CPT-4: 38582 06/12/2019 ([id number]) OFFICE/OUTPATIENT VISIT EST Diagnosis: Pneumonia, organism unspecified[ICD10: J18.9] Diagnosis: Breast mass, right[ICD10: N63.10] Keily ARANGO [facility] CPT-4: 73381 05/08/2019 ([id number]) OFFICE/OUTPATIENT VISIT EST Diagnosis: Allergic rhinitis due to pollen[ICD10: J30.1] Diagnosis: Otitis media, unspecified, right ear[ICD10: H66.91] Fatou ARANGO [facility] CPT-4: 74195 05/03/2019 ([id number]) OFFICE/OUTPATIENT VISIT EST Diagnosis: Irritability and anger[ICD10: R45.4] Nataliia ARANGO [facility] CPT-4: 11489 11/25/2018 ([id number]) OFFICE/OUTPATIENT VISIT EST Diagnosis: Acute suppurative otitis media without spontaneous rupture of ear drum, bilateral[ICD10: H66.003] Fatou ARANGO [facility] CPT-4: 96905 06/13/2018 ([id number]) OFFICE/OUTPATIENT VISIT EST Diagnosis: Other fatigue[ICD10: R53.83] Diagnosis: Anuria and oliguria[ICD10: R34] Diagnosis: Acute gastritis without bleeding[ICD10: K29.00] Fatou ARANGO [facility] CPT-4: 63047 01/04/2018 ([id number]) OFFICE/OUTPATIENT VISIT EST Diagnosis: Acute bronchitis, unspecified[ICD10: J20.9] Fatou ARANGO [facility] CPT-4: 65729 12/31/2017 ([id number]) PREV VISIT EST AGE 18-39 Diagnosis: Encounter for general adult medical examination without abnormal findings[ICD10: Z00.00] Diagnosis: Severe intellectual disabilities[ICD10: F72] Diagnosis: Allergic rhinitis due to pollen[ICD10: J30.1] Diagnosis: Epilepsy, unspecified, intractable, without status epilepticus[ICD10: G40.919] Diagnosis: Gastro-esophageal reflux disease without esophagitis[ICD10: K21.9] Keily Conchita ARANGO [facility] CPT-4: 15755 12/14/2017 ([id number]) OFFICE/OUTPATIENT VISIT EST Diagnosis: Allergic rhinitis due to pollen[ICD10: J30.1] Diagnosis: Epilepsy, unspecified, intractable, without status epilepticus[ICD10: G40.919] [facility]: 68115 12/02/2017 ([id number]) OFFICE/OUTPATIENT VISIT EST Diagnosis: Other allergic rhinitis[ICD10: J30.89] [facility]ou [facility] CPT-[facility]: 67619 10/12/2017 OFFICE/OUTPATIENT VISIT EST Diagnosis: Acute suppurative otitis media without spontaneous rupture of ear drum, recurrent, left ear[ICD10: H66.005] Diagnosis: Epilepsy, unspecified, intractable, without status epilepticus[ICD10: G40.919] Diagnosis: Hesitancy of micturition[ICD10: R39.11] [facility]ou [facility] CPT-[facility]: 61356 09/17/2017 OFFICE/OUTPATIENT VISIT EST Diagnosis: Otitis media, unspecified, left ear[ICD10: H66.92] Fatou Bobby [facility] CPT-4: 98759 08/06/2017 ([id number]) OFFICE/OUTPATIENT VISIT EST Diagnosis: Vertigo of central origin, 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.49] Diagnosis: Dizziness and giddiness[ICD10: R42] Keily Bobby [facility] CPT-4: 78569 04/01/2017 OFFICE/OUTPATIENT VISIT EST Diagnosis: Vomiting, unspecified[ICD10: R11.10] Diagnosis: 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)[ICD10: K56.5] Diagnosis: Personal history of urinary calculi[ICD10: Z87.442] Emely Hdz KEILY Bobby [facility] CPT-4: 89741 03/01/2017 ([id number]) OFFICE/OUTPATIENT VISIT EST Diagnosis: Allergic rhinitis due to pollen[ICD10: J30.1] Diagnosis: Acute and subacute allergic otitis media (mucoid) (sanguinous) (serous), left ear[ICD10: H65.112] Keily [facility] CPT-4: 03173 11/10/2016 ([id number]) OFFICE/OUTPATIENT VISIT EST Diagnosis: 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] Diagnosis: Unspecified ovarian cyst, right side[ICD10: N83.201] Diagnosis: Cyst of kidney, 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] [facility] CPT-[facility]: 32501 08/13/2016 ([id number]) OFFICE/OUTPATIENT VISIT EST Diagnosis: Rash and other nonspecific skin eruption[ICD10: R21] Aziza [facility] CPT-[facility]: 82982 03/27/2016 ([id number]) OFFICE/OUTPATIENT VISIT EST Diagnosis: Urinary tract infection, site not specified[ICD10: N39.0] [facility] CPT-[facility]: 54983 03/23/2016 ([id number]) OFFICE/OUTPATIENT VISIT EST Diagnosis: Retention of urine, unspecified[ICD10: R33.9] Diagnosis: Dysuria[ICD10: R30.0] Diagnosis: Constipation, unspecified[ICD10: K59.00] Aziza Elpidio [facility] C[facility]: 18729 03/19/2016 ([id number]) OFFICE/OUTPATIENT VISIT EST Diagnosis: Acute sinusitis, unspecified[ICD10: J01.90] [facility] CPT-[facility]: 12183 03/02/2016 OFFICE/OUTPATIENT VISIT EST Diagnosis: Other fatigue[ICD10: R53.83] Diagnosis: Retention of urine, unspecified[ICD10: R33.9] Diagnosis: Dysuria[ICD10: R30.0] Diagnosis: Generalized abdominal pain[ICD10: R10.84] 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] Aziza Magallanes KEILY Diamante [facility] CPT-4: 50284 02/24/2016 ([id number]) OFFICE/OUTPATIENT VISIT EST Diagnosis: Chronic mucoid otitis media, right ear[ICD10: H65.31] Diagnosis: Allergic rhinitis, unspecified[ICD10: J30.9] Diagnosis: 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] [facility] CPT[facility]: 12679 12/16/2015 ([id number]) OFFICE/OUTPATIENT VISIT EST Diagnosis: Allergic rhinitis, unspecified[ICD10: J30.9] Diagnosis: Acute recurrent sinusitis, unspecified[ICD10: J01.91] [facility] CPT-[facility]: 95949 11/12/2015 ([id number]) OFFICE/OUTPATIENT VISIT EST Diagnosis: Other seasonal allergic rhinitis[ICD10: J30.2] Diagnosis: Nausea with vomiting, unspecified[ICD10: R11.2] Diagnosis: Epigastric pain[ICD10: R10.13] [facility]: 56123 10/16/2015 OFFICE/OUTPATIENT VISIT EST Diagnosis: Encounter for follow-up examination after completed treatment for conditions other than malignant neoplasm[ICD10: Z09] Diagnosis: Generalized abdominal pain[ICD10: R10.84] Keily [facility] 85936 09/23/2015 ([id number]) OFFICE/OUTPATIENT VISIT EST Diagnosis: Otitis media, unspecified, right ear[ICD10: H66.91] Diagnosis: Constipation, unspecified[ICD10: K59.00] Diagnosis: Allergic rhinitis, unspecified[ICD10: J30.9] [facility] 78185 09/20/2015 OFFICE/OUTPATIENT VISIT EST Diagnosis: Allergic rhinitis, unspecified[ICD10: J30.9] Diagnosis: Unspecified perforation of tympanic membrane, right ear[ICD10: H72.91] Bibiana Garg [facility] CPT-4: 32435 09/10/2015 OFFICE/OUTPATIENT VISIT NEW Diagnosis: Epilepsy, unspecified, intractable, without status epilepticus[ICD10: G40.919] Diagnosis: Gastric ulcer, unspecified as acute or chronic, without hemorrhage or perforation[ICD10: K25.9] Diagnosis: Severe intellectual disabilities[ICD10: F72] Keily ARANGO DO [facility] CPT-4: 13739 08/21/2015 Plan of Care Planned Activity Notes [...] J18.9 05/08/2019 Appointment: [facility] [phone] [facility] [facility] 05/08/2019 Visit Diagnosis [...] ICD-10 : H66.91 05/03/2019 Appointment: Fatou Onofre [address] [place], [place] [id number] ACUTE ILLNESS 05/03/2019 Patient Education: amoxicillin- Opt[employer] Coupon [phone] [email or web address] Completed 05/03/2019 Visit Diagnosis Plan: Irritability and [...] : R45.4 11/25/2018 Appointment: Nataliia Hsieh [address] ACUTE ILLNESS 11/25/2018 Visit Diagnosis Plan: Acute suppurative otitis media without spontaneous rupture of ear drum, bilateral Discussion: cefdinir for 10 days. if wor sening symptoms later this week, call clinic. push fluids and tylenol/ibuprofen prn pain or fever. ICD-9 : 382.00 ICD-10 : H66.003 06/13/2018 Appointment: Fatou Onofre [address] [place] [address] ACUTE ILLNESS 06/13/2018 Visit Diagnosis Plan: Anuria [...] ICD-10 : K29.00 01/04/2018 Appointment: Fatou Onofre [address] [place], [place] [phone] ACUTE ILLNESS 01/04/2018 Patient Education: Patient Medication Summary Completed 01/04/2018 Visit Diagnosis Plan: Acute bronchitis, unspecified Di scussion: zithromax prescribed to take as directed. continue with allergy meds including flonase to help dry congestion. call office next week if new or worsening symptoms. ICD-9 : 466.0 ICD-10 : J20.9 12/31/2017 Appointment: Fatou Onofre [address] [place], [place] [address] ACUTE ILLNESS 12/31/2017 Patient Education: Patient Medication [...] Z00.00 12/14/2017 Appointment: Keily Arango WPtel: [address] [place] [address] CHECK UP 12/14/2017 Patient Education: Patient Medication [...] : J30.1 12/02/2017 Appointment: Keily Arango WPtel: [address] [place] [address] ACUTE ILLNESS 12/02/2017 Patient Education: Patient Medication Summary Completed 12/02/2017 Visit Diagnosis Plan: Other allergic rhinitis Discussi on: symptoms most likely caused from allergies. patient sent to hospital for decadron injection. instructed to restart patient's flonase at home. if new or worsening symptoms, call or rtc. ICD-9 : 477.8 ICD-10 : J30.89 10/12/2017 Appointment: Fatou Onofre [address] [place] [address] ACUTE ILLNESS 10/12/2017 Patient Education: Patient Medication [...] ICD-10 : G40.919 09/17/2017 Appointment: Fatou Onofre [address] [place] [address] ACUTE ILLNESS 09/17/2017 Patient Education: Patient Medication Summary Completed 09/17/2017 Visit Diagnosis Plan: Otitis media, unspecified, left ear Discussion: cefdinir prescribed daily for 10 days. instructed to administer tylenol/ibuprofen for pain or fever. if no improvement, or worsening symptoms, call or rtc. ICD-9 : 380.14 ICD-10 : H66.92 08/06/2017 Appointment: Fatou Onofre [address] [place], [place] [address] ACUTE ILLNESS 08/06/2017 Patient Education: Patient Medication Summary Completed 08/06/2017 Patient Education: Patient Medication Summary Completed 08/02/2017 Patient Education: Patient Medication Summary Completed 04/21/2017 Care Plan: MRI BRAIN STEM W/O DYE LOINC : 36665-1 Pending 04/21/2017 Patient Education: Patient Medication Summary Completed 04/20/2017 Care Plan: MRI BRAIN STEM W/O DYE LOINC : 71731-6 Pending 04/20/2017 Visit Diagnosis Plan: Vertigo of central origin, unspe cified ear Discussion: Continue meclizine at 12.5mg po BID for 2 more weeks then go to 12.5mg daily for 2 weeks then 6.25mg daily for 2 weeks then stop Notify if any symptoms return with weaning process ICD-9 : 386.2 ICD-10 : H81.49 04/01/2017 Appointment: Keily Arango WPtel: [facility]8 [facility] FOLLOW UP 04/01/2017 Patient Education: Patient Medication Summary Completed 04/01/2017 Patient Education: Patient Medication Summary Completed 03/09/2017 Care Plan: CT HEAD/BRAIN W/O DYE LOINC : 02817-1 Pending 03/09/2017 Visit Plan: It's difficult to [...] indicated. 03/01/2017 Appointment: Emely Hdz WPtel: [address] [place] [address] ACUTE ILLNESS 03/01/2017 Patient Education: Patient Medication Summary Completed 03/01/2017 Patient Education: Patient Medication Summary Completed 12/17/2016 Visit Diagnosis Plan: Acute and subacute allergic otitis media (mucoid) (sanguinous) (serous), left ear Discussion: Zithromax ICD-9 : 381.05 ICD-10 : H65.112 11/10/2016 Visit Diagnosis Plan: Allergic rhinitis due to pollen Discussion: Continue zyrtec/singulair ICD-9 : 477.9 ICD-10 : J30.1 11/10/2016 Appointment: Keily Arango WPtel: [facility]9 [place] [phone] ACUTE ILLNESS 11/10/2016 Patient Education: Patient Medication Summary Completed 11/10/2016 Patient Education: Patient Medication Summary Completed 09/07/2016 Care Plan: URINALYSIS [place] : [address]-8 Pending 09/07/2016 Visit Diagnosis Plan: Cyst of [...] : N83.201 08/13/2016 Appointment: Keily Arango WPtel: [phone] [facility] 08/12 confirmed-sp FOLLOW UP 08/13/2016 Patient Education: Patient Medication Summary Completed 08/13/2016 Patient Education: Patient Medication Summary Completed 05/19/2016 Care Plan: X-RAY EXAM OF FOOT left foot LOINC : 26 095-0 Pending 05/19/2016 Visit Plan: Discussed with Dr Arango CB C to be drawn Order sent to Will call with results 03/27/2016 Appointment: Aziza Magallanes [address] [facility]6[address] ACUTE ILLNESS 03/27/2016 Patient Education: Patient Medication Summary Completed 03/27/2016 Visit Plan: Go for dose of rocephin 1gm IM today and tomorrow then done Diflucan 150mg x1 today Discussed with mom via phone about urology fwup--she will talk with her and let us know 03/23/2016 Appointment: Keily [facility]el[facility] [phone] [facility] 03/23 confirmed ~sl FOLLOW UP 03/23/2016 Patient Education: Patient Medication Summary Completed 03/23/2016 Visit Plan: Per Dr Arango, straight cat h for UA and culture today Ok to have a standing order for further UA needs at for straight cath Rocephin IM today and daily through Wednesday Mom has arranged a family friend that is an [employer] to give Wednesday and Sundays injections - rxs for rocephin and lido sent to [facility] cannot order the lido in the qty patient needs) Dr Arango wants patient to be re-evaluated on Wednesday in clinic Referral to Urology for recurrent UTIs and urinary retention - mom wants to research who she wants her sent to and let us know 03/19/2016 Appointment: Aziza Magallanes [address] [place], [place] [id number] ACUTE ILL[facility] 03/19/2016 Patient Education: Patient Medication Summary Completed 03/19/2016 Visit Plan: 1 more week of cefdinir 03/02/2016 Appointment: Keily Arango WPtel: [address] [place], [place] [phone] 03/02 confirmed~sl WORK IN 03/02/2016 Patient Education: [...] seen if worsening 02/24/2016 Appointment: Aziza Magallanes [address] [place], [place] [id number] ACUTE ILL[facility] 02/24/2016 Patient Education: Patient Medication Summary Completed 02/24/2016 Care Plan: CHEST X-RAY 2VW FRONTAL&LATL LOINC : 20880-3 Pending 02/24/2016 Care Plan: X-RAY EXAM OF ABDOMEN LOINC : 28825-6 Pending 02/24/2016 Visit Plan: Repeat zithromax x1 week Cip rodex to right ear x1 week Add Pepcid q HS x2-4 weeks for total histamine blockade and for extra stomach protection while on zithromax 12/16/2015 Appointment: Keily Arango WPtel: [facility]5 [facility] 12/11 lm~sl 12/12 lm ~sl FOLLOW UP 12/16/2015 Patient Education: Patient Medication Summary Completed 12/16/2015 Patient Education: [facility] - Saving Auto[employer]j - Sertraline HCL - 18-64 - Dynamic Portal ID Completed 12/16/2015 Visit Plan: Saline nasal flushes prn. Ty lenol/Motrin prn headache. Notify if persists/symptoms worsens Dexamethasone given 11/12/2015 Appointment: Keily Arango WPtel: [address] [place], [place] [phone] [place] 5/ lm~sl 11/11 lm~sl 11/11 confirm-sp [...] for Belkys 10/16/2015 Appointment: Aziza Magallanes [address] [place], [place] [phone] ACUTE ILLNESS 10/16/2015 Patient Education: Patient Medication Summary Completed 10/16/2015 Appointment: Aziza Magallanes [address] [place], [place] [phone] [place] canceled, feeling better CANCELED 016 Visit Plan: No further abx needed Go mariela k to jevity for next 3 days and restart carafate Notify if abdominal pain worsens 09/23/2015 Appointment: Keily Arango WPtel: [facility] 09/19 confirmed-sp FOLLOW UP 09/23/2015 Patient [...] try for now. 09/20/2015 Appointment: Aziza Magallanes [address] [facility] ACUTE ILLNESS 09/20/2015 Patient Education: Patient Medication Summary Completed 09/20/2015 Visit Plan: Depo Medrol 40mg/ Kenalog 40 mg IM today Resume Ciprodex otic gtts. bid to Rt. ear 09/10/2015 Appointment: Bibiana Garg WPtel: [phone] [facility] 09/08 confirmed-sp ACUTE ILLNESS 09/10/2015 Patient Education: Patient Medication Summary Completed 09/10/2015 Visit Plan: Increase Protonix to 40mg po BID for 1month Continue carafate at q AC dosing for full month then wean off Jevity for 2 more days then advance diet if able Continue current meds 08/21/2015 Appointment: [facility]ily [facility]ango [facility]Ptel[phone] [facility] [place] NEW PATIENT 08/21/2015 Patient Education: [...] arranged a family friend that is an [employer] to give Wednesday and Sundays injections - [...]
--- OUTSIDE RECORDS SUMMARY | 2019-11-10 19:44 | XMS REPORT | CCD ---
Author Author Belkys Arango D.O. Organization KEILY ARANGO DO 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 Name Role Phone Keily Arango D.O., PP Unavailable CCM Unavailable Summary Purpose Interface Exchange Insurance Providers Payer name Policy type / Coverage type Covered alliance party ID Effective Begin Date Effective End Date [employer] [facility] [place] Medicaid [id number] U nknown Family History Family History data not found Social History Social History Element Codes Description Effective Dates Marital status Unknown Single 08/21/2015 Employment Unknown Currently unemployed Physically handicapped 08/21/[address]: 788762780 Has never smoked or chewed tobacco 08/21/[address]: 589764702 Never drinks alcohol 2015 Allergies, Adverse Reactions, [...] unit-126,000 unit-168,000 unit capsule,d elayed release RxNorm: 1126673 1 Capsule(s) Oral AC 06/12/2019 10/10/2019 Active Zenpep 40,000 unit-126,000 unit-168,000 unit capsule,d elayed release RxNorm: 4350989 1 Capsule(s) Oral AC 05/24/2019 05/23/2019 Inactive Zenpep 40,000 unit-126,000 unit-168,000 unit capsule,d elayed release RxNorm: 5770958 1 Capsule(s) Oral AC 05/24/2019 06/11/2019 Inactive Ciprodex 0.3 %-0.1 % ear drops,suspension RxNorm: 591729 DROP(S) 4 DROP(S) OTIC BID 05/22/2019 06/18/2019 Active oxcarbazepine 300 mg/5 mL (60 mg/mL) oral suspension RxNorm: 438862 15 Milliliter(s) Oral two times a day 05/08/2019 11/03/2019 Active meclizine 12.5 mg tablet RxNorm: 154924 1 TABLET(S) PO TID NEEDE D 05/05/2019 08/02/2019 Active change in quantity Zithromax 200 mg/5 mL oral suspension RxNorm: 655706 12.5 Dilcia liter(s) Oral QD 05/04/2019 05/09/2019 Inactive amoxicillin 400 mg/5 mL oral suspension RxNorm: 496523 10 Milliliter(s) Oral two times a day 05/03/2019 05/13/2019 Inactive Singulair 10 mg tablet RxNorm: 112618 1 TABLET(S) PO QD 03/28/2019 Active Macrobid 100 mg capsule RxNorm: 410180 1 Capsule(s) PO BID 03/16/2003/22/2019 Inactive meclizine 12.5 mg tablet RxNorm: 189693 1 Tablet(s) PO TID as neede d 03/10/2019 05/04/2019 Inactive change in quantity Ciprodex 0.3 %-0.1 % ear drops,suspension RxNorm: 308056 DROP(S) 4 DROP(S) OTIC BID 03/08/2019 04/04/2019 Inactive oxcarbazepine 300 mg/5 mL (60 mg/mL) oral suspension RxNorm: 303175 15 Milliliter(s) PO BID 03/07/2019 05/07/2019 Inactive Macrobid 100 mg capsule RxNorm: 554053 1 Capsule(s) PO BID 02/21/2003/01/2019 Inactive Macrobid 100 mg capsule RxNorm: 605545 1 Capsule(s) PO BID 02/21/2002/19/2019 Inactive meclizine 12.5 mg tablet RxNorm: 005371 1 Tablet(s) PO TID as neede d 02/06/2019 03/07/2019 Inactive change in quantity Ciprodex 0.3 %-0.1 % ear drops,suspension RxNorm: 070453 DROP(S) 4 DROP(S) OTIC BID 01/30/2019 02/12/2019 Inactive diazepam 10 mg tablet RxNorm: 750081 1 Tablet(s) PO QHS as needed 0 01/27/2019 03/27/2019 Inactive sertraline 50 mg tablet RxNorm: 236988 1 Tablet(s) PO QHS 12/29/2018 06/26/2019 Active famotidine 20 mg tablet RxNorm: 864332 1 Tablet(s) PO QHS 12/29/2018 06/26/2019 Active Ciprodex 0.3 %-0.1 % ear drops,suspension RxNorm: 616333 DROP(S) 4 DROP(S) OTIC BID 12/14/2018 12/27/2018 Inactive Generlac 10 gram/15 mL oral solution RxNorm: 381461 15 Milliliter(s) PO TWO TO THREE TIMES DAILY 12/06/2018 06/03/2019 Inactive Protonix 40 mg tablet,delayed release RxNorm: 794794 1 Tablet(s) PO or per feeding tube BID 11/24/2018 05/22/2019 Inactive meclizine 12.5 mg tablet RxNorm: 877669 1 Tablet(s) PO TID as neede d 11/11/2018 02/06/2019 Inactive change in quantity Ciprodex 0.3 %-0.1 % ear drops,suspension RxNorm: 765745 DROP(S) 4 DROP(S) OTIC BID 11/08/2018 11/21/2018 Inactive diazepam 10 mg tablet RxNorm: 206088 1 Tablet(s) PO QHS as needed 0 10/21/2018 11/19/2018 Inactive Generlac 10 gram/15 mL oral solution RxNorm: 811210 Mil liliter(s) 15 MILLILITER(S) PO TWO TO THREE TIMES DAILY 10/07/2018 11/05/2018 Inacti ve Ciprodex 0.3 %-0.1 % ear drops,suspension RxNorm: 511129 DROP(S) DROP(S) 4 DROP(S) OTIC BID 08/26/2018 03/15/2019 Inactive meclizine 12.5 mg tablet RxNorm: 533026 1 TABLET(S) PO TID NEEDE D 07/25/2018 10/22/2018 Inactive change in quantity oxcarbazepine 300 mg/5 mL (60 mg/mL) oral suspension RxNorm: 495620 15 Milliliter(s) PO BID 07/08/2018 07/07/2018 Inactive oxcarbazepine 300 mg/5 mL (60 mg/mL) oral suspension RxNorm: 165962 15 Milliliter(s) PO BID 07/08/2018 01/03/2019 Inactive sertraline 50 mg tablet RxNorm: 860957 1 TABLET(S) PO QHS 07/06/2018 12/28/2018 Inactive Singulair 10 mg tablet RxNorm: 155399 1 TABLET(S) PO QD 06/24/2018 Inactive Ciprodex 0.3 %-0.1 % ear drops,suspension RxNorm: 157848 DROP(S) 4 DROP(S) OTIC BID 06/20/2018 06/19/2018 Inactive Ciprodex 0.3 %-0.1 % ear drops,suspension RxNorm: 278741 Drop(s) DROP(S) 4 DROP(S) OTIC BID 06/20/2018 07/03/2018 Inactive cefdinir 250 mg/5 mL oral suspension RxNorm: 324262 12 Milliliter(s) PO QD though PEG tube 06/13/2018 06/22/2018 Inactive famotidine 20 mg tablet RxNorm: 476583 1 Tablet(s) PO QHS 05/31/2018 11/26/2018 Inactive famotidine 40 mg/5 mL (8 mg/mL) oral suspension RxNorm: 3102 74 2.5 Milliliter(s) PO QHS 04/29/2018 06/12/2018 Inactive meclizine 12.5 mg tablet RxNorm: 377728 1 TABLET(S) PO TID NEEDE D 04/25/2018 07/23/2018 Inactive change in quantity Generlac 10 gram/15 mL oral solution RxNorm: 964896 Mil liliter(s) 15 MILLILITER(S) PO TWO TO THREE TIMES DAILY 04/04/2018 05/03/2018 Inacti ve Ciprodex 0.3 %-0.1 % ear drops,suspension RxNorm: 858964 Drop(s) 4 DROP(S) OTIC BID 04/04/2018 04/17/2018 Inactive diazepam 10 mg tablet RxNorm: 844601 1 Tablet(s) PO QHS as needed 1 05/03/2018 Inactive famotidine 40 mg/5 mL (8 mg/mL) oral suspension RxNorm: 3102 74 2.5 Milliliter(s) PO QHS 04/04/2018 04/28/2018 Inactive Generlac 10 gram/15 mL oral solution RxNorm: 568407 15 MILLILITER(S) PO TWO TO THREE TIMES DAILY 03/24/2018 04/03/2018 Inactive Singulair 10 mg tablet RxNorm: 562927 1 TABLET(S) PO QD 03/18/2018 Inactive Ciprodex 0.3 %-0.1 % ear drops,suspension RxNorm: 181171 Drop(s) 4 DROP(S) OTIC BID 03/08/2018 03/21/2018 Inactive Generlac 10 gram/15 mL oral solution RxNorm: 467243 15 Milliliter(s) PO two to three times daily 03/03/2018 03/23/2018 Inactive meclizine 12.5 mg tablet RxNorm: 585578 1 Tablet(s) PO TID as neede d 02/10/2018 04/10/2018 Inactive change in quantity meclizine 12.5 mg tablet RxNorm: 101049 1 Tablet(s) PO BID as neede d 02/07/2018 02/09/2018 Inactive change in quantity Ciprodex 0.3 %-0.1 % ear drops,suspension RxNorm: 005483 Drop(s) 4 DROP(S) OTIC BID 02/02/2018 03/08/2018 Inactive sertraline 50 mg tablet RxNorm: 082378 1 TABLET(S) PO QHS 01/25/2018 07/05/2018 Inactive Zithromax 200 mg/5 mL oral suspension RxNorm: 573300 12.5 Dilcia liter(s) PO QD 12/31/2017 01/04/2018 Inactive Pepcid 20 mg tablet RxNorm: 688442 TABLET(S) 1 TABLET(S) PO QHS 04/29/2018 Inactive famotidine 40 mg/5 mL (8 mg/mL) oral suspension RxNorm: 3102 74 2.5 Milliliter(s) PO QHS 12/28/2017 12/27/2017 Inactive famotidine 40 mg/5 mL (8 mg/mL) oral suspension RxNorm: 3102 74 2.5 Milliliter(s) PO QHS 12/28/2017 04/03/2018 Inactive Ciprodex 0.3 %-0.1 % ear drops,suspension RxNorm: 533406 Drop(s) 4 DROP(S) OTIC BID 12/27/2017 02/02/2018 Inactive meclizine 12.5 mg tablet RxNorm: 667598 1 Tablet(s) PO BID as neede d 12/23/2017 02/06/2018 Inactive change in quantity Protonix 40 mg tablet,delayed release RxNorm: 459847 1 Tablet(s) PO or per feeding tube BID 12/16/2017 07/13/2018 Inactive oxcarbazepine 300 mg/5 mL (60 mg/mL) oral suspension RxNorm: 293539 15 Milliliter(s) PO BID 12/16/2017 07/08/2018 Inactive meclizine 12.5 mg tablet RxNorm: 203104 1 Tablet(s) PO BID as neede d 12/15/2017 02/07/2018 Inactive change in quantity Pepcid 40 mg/5 mL (8 mg/mL) oral suspension RxNorm: 390616 5 Milliliter(s) PO QHS to replace nighttime pantoprazole dose 12/14/2017 12/27/2017 Inact марина meclizine 12.5 mg tablet RxNorm: 392818 1 Tablet(s) PO BID as neede d 12/13/2017 12/23/2017 Inactive diazepam 10 mg tablet RxNorm: 921754 1 Tablet(s) PO QHS as needed 0 12/02/2017 03/01/2018 Inactive prednisolone 15 mg/5 mL oral solution RxNorm: 675162 5 Milliliter(s) PO BID for 3 days then 5ml daily for 3 days then 2.5ml daily for 3 days 12/02/2017 12/13/2017 Inactive sertraline 50 mg tablet RxNorm: 573589 1 Tablet(s) PO QHS 11/04/2017 01/24/2018 Inactive Ciprodex 0.3 %-0.1 % ear drops,suspension RxNorm: 001335 Drop(s) 4 DROP(S) OTIC BID 10/18/2017 10/31/2017 Inactive Ciprodex 0.3 %-0.1 % ear drops,suspension RxNorm: 799594 Drop(s) 4 DROP(S) OTIC BID 10/18/2017 12/27/2017 Inactive Singulair 10 mg tablet RxNorm: 390192 1 Tablet(s) PO QD 09/30/2017 Inactive diazepam 5 mg/5 mL (1 mg/mL) oral solution RxNorm: 765990 2.5 Milliliter(s) PO QD give additional 5 mg dose if seizure occurs 09/17/2017 No Stop Date A ctive Bactrim DS 800 mg-160 mg tablet RxNorm: 865149 1 Tablet(s) PO BID 0 09/17/2017 09/23/2017 Inactive Ciprodex 0.3 %-0.1 % ear drops,suspension RxNorm: 877060 4 DROP (S) OTIC BID 09/13/2017 10/18/2017 Inactive cefdinir 250 mg/5 mL oral suspension RxNorm: 368037 12 Milliliter(s) PO QD though PEG tube 08/06/2017 08/15/2017 Inactive sertraline 50 mg tablet RxNorm: 661713 1 Tablet(s) PO QHS 08/02/2017 11/04/2017 Inactive Ciprodex 0.3 %-0.1 % ear drops,suspension RxNorm: 430598 4 DROP (S) OTIC BID 07/22/2017 08/11/2017 Inactive Singulair 10 mg tablet RxNorm: 831061 1 Tablet(s) PO QD 06/30/2017 Inactive diazepam 10 mg tablet RxNorm: 821586 TAKE 1 TABLET BY M OUTH EVERY NIGHT AT BEDTIME NEEDED 06/04/2017 07/03/2017 Inactive oxcarbazepine 300 mg/5 mL (60 mg/mL) oral suspension RxNorm: 382255 15 MILLILITER(S) PO BID 05/03/2017 12/16/2017 Inactive sertraline 50 mg tablet RxNorm: 041737 1 Tablet(s) PO QHS 05/03/2017 08/02/2017 Inactive Protonix 40 mg tablet,delayed release RxNorm: 790292 1 Tablet(s) PO or per feeding tube BID 04/26/2017 12/16/2017 Inactive Ciprodex 0.3 %-0.1 % ear drops,suspension RxNorm: 686635 4 DROP (S) OTIC BID 04/26/2017 05/23/2017 Inactive Generlac 10 gram/15 mL oral solution RxNorm: 969097 Mil liliter(s) TAKE 15 ML BY MOUTH TWO-THREE TIMES DAILY 04/08/2017 03/03/2018 Inactive Singulair 10 mg tablet RxNorm: 300230 1 Tablet(s) PO QD 03/03/2017 Inactive diazepam 10 mg tablet RxNorm: 196007 1 Tablet(s) PO QHS as needed 0 02/15/2017 06/04/2017 Inactive Singulair 10 mg tablet RxNorm: 840637 1 Tablet(s) PO QD 12/01/2016 Inactive Diflucan 150 mg tablet RxNorm: 685620 Tablet(s) Give 1 tab PO now and then repeat dose in 5 days 11/10/2016 03/31/2017 Inactive Zithromax 200 mg/5 mL oral suspension RxNorm: 644272 12.5 Dilcia liter(s) PO QD 11/10/2016 11/14/2016 Inactive Singulair 10 mg tablet RxNorm: 627058 TAKE 1 TABLET BY MOUTH ON CE DAILY 11/02/2016 12/01/2016 Inactive diazepam 10 mg tablet RxNorm: 795474 TAKE 1 TABLET BY M OUTH EVERY NIGHT AT BEDTIME NEEDED 10/21/2016 11/19/2016 Inactive sertraline 50 mg tablet RxNorm: 200139 1 Tablet(s) PO QHS 10/12/2016 01/09/2017 Inactive fluconazole 100 mg tablet RxNorm: 552667 1 Tablet(s) PO QD 09/23/19 17 09/24/2016 Inactive fluconazole 100 mg tablet RxNorm: 726024 1 Tablet(s) PO QD 09/23/19 17 09/21/2016 Inactive Bactrim DS 800 mg-160 mg tablet RxNorm: 975111 1 Tablet(s) PO BID 0 09/10/2016 09/09/2016 Inactive Bactrim DS 800 mg-160 mg tablet RxNorm: 423151 1 Tablet(s) PO BID 0 09/10/2016 09/16/2016 Inactive oxcarbazepine 300 mg/5 mL (60 mg/mL) oral suspension RxNorm: 593614 15 Milliliter(s) PO BID 09/07/2016 03/05/2017 Inactive sertraline 50 mg tablet RxNorm: 687274 1 Tablet(s) PO QHS 07/06/2016 10/03/2016 Inactive Pepcid 20 mg tablet RxNorm: 018044 Tablet(s) 1 TABLET(S) PO QHS 08/201603/08/2017 Inactive sertraline 50 mg tablet RxNorm: 340585 1 Tablet(s) PO QHS 06/08/2016 05/03/2017 Inactive Generlac 10 gram/15 mL oral solution RxNorm: 398774 Mil liliter(s) TAKE 15 ML BY MOUTH TWO-THREE TIMES DAILY 06/08/2016 09/08/2016 Inactive Pepcid 20 mg tablet RxNorm: 344204 1 TABLET(S) PO QHS 06/04/201607/2016 Inactive fluconazole 100 mg tablet RxNorm: 505225 1 Tablet(s) QD through PEG tube 05/13/2016 12/01/2017 Inactive Diflucan 150 mg tablet RxNorm: 828090 Give 1 tab PO now and then repeat dose in 5 days 03/19/2016 11/09/2016 Inactive ceftriaxone 1 gram solution for injection RxNorm: 8621693 1 Gram(s) IM QD Wednesday and Wednesday03/19/2016 11/09/2016 Inactive lidocaine 10 mg/mL (1 %) injection solution RxNorm: 9507799 Use as directed to reconstitute Rocephin when needed 03/19/2016 12/13/2017 Inactive Generlac 10 gram/15 mL oral solution RxNorm: 882064 JOE E 15 ML BY MOUTH TWO- THREE TIMES DAILY 03/19/2016 06/07/2016 Inactive oxcarbazepine 300 mg/5 mL oral suspension RxNorm: 370182 15 Milliliter(s) PO BID 03/13/2016 09/07/2016 Inactive Ciprodex 0.3 %-0.1 % ear drops,suspension RxNorm: 173209 4 DROP (S) OTIC BID 03/09/2016 03/15/2016 Inactive cefdinir 250 mg/5 mL oral suspension RxNorm: 811998 11. 75 Milliliter(s) PO QD though PEG tube 03/02/2016 03/08/2016 Inactive cefdinir 250 mg/5 mL oral suspension RxNorm: 922714 11. 75 Milliliter(s) PO QD though PEG tube 02/24/2016 03/01/2016 Inactive cefdinir 250 mg/5 mL oral suspension RxNorm: 216542 11. 75 Milliliter(s) PO QD though PEG tube 02/24/2016 02/23/2016 Inactive Ciprodex 0.3 %-0.1 % ear drops,suspension RxNorm: 214578 4 Drop (s) OTIC BID 02/24/2016 03/01/2016 Inactive Generlac 10 gram/15 mL oral solution RxNorm: 686886 JOE E 15 ML BY MOUTH TWICE DAILY 02/17/2016 03/18/2016 Inactive Generlac 10 gram/15 mL oral solution RxNorm: 804130 15 Millilit er(s) PO BID 01/23/2016 02/16/2016 Inactive Pepcid 20 mg tablet RxNorm: 553276 1 TABLET(S) PO QHS 01/13/201605/07 Inactive Ciprodex 0.3 %-0.1 % ear drops,suspension RxNorm: 487687 4 Drop (s) OTIC BID 12/23/2015 12/29/2015 Inactive sertraline 50 mg tablet RxNorm: 951362 1 Tablet(s) PO QHS 12/16/2015 06/07/2016 Inactive Zithromax 500 mg tablet RxNorm: 582871 1 Tablet(s) PO QD 12/16/2015 0 12/22/2015 Inactive Pepcid 20 mg tablet RxNorm: 008592 1 Tablet(s) PO QHS 12/16/201501/02 Inactive Zithromax 500 mg tablet RxNorm: 717760 1 Tablet(s) PO QD 11/12/2015 0 11/18/2015 Inactive Singulair 10 mg tablet RxNorm: 962156 1 Tablet(s) PO BID 10/16/2015 0 11/11/2015 Inactive diazepam 10 mg tablet RxNorm: 576712 1 Tablet(s) PO QHS 10/07/2015 Inactive diazepam 10 mg tablet RxNorm: 541767 1 Tablet(s) PO QHS 10/07/2015 Inactive fexofenadine 30 mg/5 mL oral suspension RxNorm: 991801 10 Milliliter(s) PO one to two times daily PRN allergies 09/20/2015 12/15/2015 Inactive ceftriaxone 1 gram solution for injection RxNorm: 2591079 1 Gram (s) IM QD 09/20/2015 09/21/2015 Inactive Ciprodex 0.3 %-0.1 % ear drops,suspension RxNorm: 036253 4 Drop (s) OTIC BID 09/20/2015 10/03/2015 Inactive Protonix 40 mg tablet,delayed release RxNorm: 845052 1 Tablet(s) PO or per feeding tube BID 08/21/2015 12/18/2015 Inactive Carafate 100 mg/mL oral suspension RxNorm: 059398 10 Mi lliliter(s) Miscellaneous per feeding tube AC & HS 08/21/2015 09/19/2015 Inactive Zyrtec 10 mg tablet RxNorm: 0457786 1 Tablet(s) PO QD No Start Date Active diazepam 20 mg rectal kit RxNorm: 050068 RTL as needed No Start Date Active Lortab Elixir 10 mg-300 mg/15 mL oral solution RxNorm: 49113 45 8 PO Q6-8H as needed No Start Date Active ondansetron HCl 4 mg/5 mL oral solution RxNorm: 751937 10 Milliliter(s) PO as needed and through tube No Start Date Active sertraline 50 mg tablet RxNorm: 656982 1 Tablet(s) PO QD No Start D ate 12/15/2015 Inactive Brittany 180 mg tablet RxNorm: 649773 1 Tablet(s) PO QD No Start Date 06/12/2018 Inactive Generlac 10 gram/15 mL oral solution RxNorm: 572918 15 Millilit er(s) PO BID No Start Date 01/22/2016 Inactive oxcarbazepine 300 mg/5 mL oral suspension RxNorm: 475730 13.5 Milliliter(s) PO QAM and 15ml in the evening No Start Date 12/15/2015 Inactive Singulair 10 mg tablet RxNorm: 264445 1 Tablet(s) PO QD No Start Da te 11/30/2016 Inactive meclizine 12.5 mg tablet RxNorm: 553191 1 Tablet(s) PO TID as needed for dizziness No Start Date 09/13/2017 Inactive meclizine 12.5 mg tablet RxNorm: 081551 1 Tablet(s) PO BID No Start Date 12/12/2017 Inactive fluconazole 100 mg tablet RxNorm: 812420 1 Tablet(s) QD through PEG tube No Start Date 05/12/2016 Inactive Flomax 0.4 mg capsule RxNorm: 036687 1 Capsule(s) PO QD No Start Da te 06/12/2018 Inactive diazepam 10 mg tablet RxNorm: 144520 1 Tablet(s) PO QHS as needed N o Start Date 02/14/2017 Inactive Generlac 10 gram/15 mL oral solution RxNorm: 838729 15 Milliliter(s) PO two to three times daily No Start Date 03/02/2018 Inactive oxcarbazepine 300 mg/5 mL oral suspension RxNorm: 683431 15 Milliliter(s) PO BID No Start Date 12/15/2017 Inactive Medication Administered No Medication Administered data Immunizations Vaccine Codes Date Status Influenza CVX: 141 04/21/2019 Results No Results data Procedures Procedure Codes Date DEXAMETHASONE SODIUM PHOS CPT-4: J1100 05/03/2019 THER/PROPH/DIAG INJ SC/IM CPT-4: 93429 05/03/2019 CEFTRIAXONE SODIUM INJECTION CPT-4: J0696 03/19/2016 THER/PROPH/DIAG INJ SC/IM CPT-4: 47590 03/19/2016 DEXAMETHASONE SODIUM PHOS CPT-4: J1100 11/12/2015 THER/PROPH/DIAG INJ SC/IM CPT-4: 77265 11/12/2015 CEFTRIAXONE SODIUM INJECTION CPT-4: J0696 09/20/2015 THER/PROPH/DIAG INJ SC/IM CPT-4: 45378 09/20/2015 THER/PROPH/DIAG INJ SC/IM CPT-4: 23592 09/10/2015 METHYLPREDNISOLONE 40 MG INJ CPT-4: J1030 09/10/2015 TRIAMCINOLONE ACET INJ NOS CPT-4: J3301 09/10/2015 Vital Signs Date Vital 06/12/2019 Blood Pressure 1: 112/74 Code: 8480-6 BMI: 23.2 Code: 93103-6 Heart Rate 1: 102 bpm Height: 4'5" [...] 1: 114/70 Code: 8480-6 BMI: 23.1 Code: 02960-6 Heart Rate 1: 80 bpm Height: 4'6" [...] 09/20/2015 otalgia 09/10/2015 ~generic 08/21/2015 New Patient----[facility] visit Encounters Encounter Performer Location Codes Date ([id number]) PREV VISIT EST AGE 18-39 Diagnosis: Encounter for general adult medical examination with abnormal findings[ICD10: Z00.01] Diagnosis: Chronic pancreatitis[ICD10: K86.1] Diagnosis: Cerebral palsy, unspecified[ICD10: G80.9] Keily ARANGO DO [facility] CPT-4: 76155 06/12/2019 ([id number]) OFFICE/OUTPATIENT VISIT EST Diagnosis: Pneumonia, organism unspecified[ICD10: J18.9] Diagnosis: Breast mass, right[ICD10: N63.10] Keily ARANGO [address] [facility] CPT-4: 68375 05/08/2019 ([id number]) OFFICE/OUTPATIENT VISIT EST Diagnosis: Allergic rhinitis due to pollen[ICD10: J30.1] Diagnosis: Otitis media, unspecified, right ear[ICD10: H66.91] Fatou ARANGO [address] [facility] CPT-4: 11594 05/03/2019 ([id number]) OFFICE/OUTPATIENT VISIT EST Diagnosis: Irritability and anger[ICD10: R45.4] Nataliia ARANGO [address] [facility] CPT-4: 31907 11/25/2018 ([id number]) OFFICE/OUTPATIENT VISIT EST Diagnosis: Acute suppurative otitis media without spontaneous rupture of ear drum, bilateral[ICD10: H66.003] Fatou ARANGO [address] [facility] CPT-4: 44764 06/13/2018 ([id number]) OFFICE/OUTPATIENT VISIT EST Diagnosis: Other fatigue[ICD10: R53.83] Diagnosis: Anuria and oliguria[ICD10: R34] Diagnosis: Acute gastritis without bleeding[ICD10: K29.00] Fatou ARANGO [address] [facility] CPT-4: 35225 01/04/2018 ([id number]) OFFICE/OUTPATIENT VISIT EST Diagnosis: Acute bronchitis, unspecified[ICD10: J20.9] Fatou ARANGO [address] [facility] CPT-4: 91298 12/31/2017 ([id number]) PREV VISIT EST AGE 18-39 Diagnosis: Encounter for general adult medical examination without abnormal findings[ICD10: Z00.00] Diagnosis: Severe intellectual disabilities[ICD10: F72] Diagnosis: Allergic rhinitis due to pollen[ICD10: J30.1] Diagnosis: Epilepsy, unspecified, intractable, without status epilepticus[ICD10: G40.919] Diagnosis: Gastro-esophageal reflux disease without esophagitis[ICD10: K21.9] Keily Conchita ARANGO [employer] CPT-4: 75713 12/14/2017 ([id number]) OFFICE/OUTPATIENT VISIT EST Diagnosis: Allergic rhinitis due to pollen[ICD10: J30.1] Diagnosis: Epilepsy, unspecified, intractable, without status epilepticus[ICD10: G40.919] [facility] CPT-4: 53823 12/02/2017 ([id number]) OFFICE/OUTPATIENT VISIT EST Diagnosis: Other allergic rhinitis[ICD10: J30.89] [facility] CPT-4: 74209 10/12/2017 OFFICE/OUTPATIENT VISIT EST Diagnosis: Acute suppurative otitis media without spontaneous rupture of ear drum, recurrent, left ear[ICD10: H66.005] Diagnosis: Epilepsy, unspecified, intractable, without status epilepticus[ICD10: G40.919] Diagnosis: Hesitancy of micturition[ICD10: R39.11] Fatou [facility] CPT-4: 77499 09/17/2017 OFFICE/OUTPATIENT VISIT EST Diagnosis: Otitis media, unspecified, left ear[ICD10: H66.92] Fatou Bobby [facility] CPT-4: 98453 08/06/2017 ([id number]) OFFICE/OUTPATIENT VISIT EST Diagnosis: Vertigo of central origin, 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.49] Diagnosis: Dizziness and giddiness[ICD10: R42] Keily Bobby [facility] CPT-4: 69729 04/01/2017 OFFICE/OUTPATIENT VISIT EST Diagnosis: Vomiting, unspecified[ICD10: R11.10] Diagnosis: 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)[ICD10: K56.5] Diagnosis: Personal history of urinary calculi[ICD10: Z87.442] Emely Hdz KEILY Bobby [facility] CPT-4: 63345 03/01/2017 ([id number]) OFFICE/OUTPATIENT VISIT EST Diagnosis: Allergic rhinitis due to pollen[ICD10: J30.1] Diagnosis: Acute and subacute allergic otitis media (mucoid) (sanguinous) (serous), left ear[ICD10: H65.112] Keily [facility] CPT-4: 56216 11/10/2016 ([id number]) OFFICE/OUTPATIENT VISIT EST Diagnosis: 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] Diagnosis: Unspecified ovarian cyst, right side[ICD10: N83.201] Diagnosis: Cyst of kidney, 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] Keily [facility] CPT-4: 66575 08/13/2016 ([id number]) OFFICE/OUTPATIENT VISIT EST Diagnosis: Rash and other nonspecific skin eruption[ICD10: R21] Aziza [facility] CPT-4: 77671 03/27/2016 ([id number]) OFFICE/OUTPATIENT VISIT EST Diagnosis: Urinary tract infection, site not specified[ICD10: N39.0] Keily [facility] CPT-4: 50052 03/23/2016 ([id number]) OFFICE/OUTPATIENT VISIT EST Diagnosis: Retention of urine, unspecified[ICD10: R33.9] Diagnosis: Dysuria[ICD10: R30.0] Diagnosis: Constipation, unspecified[ICD10: K59.00] Aziaz Elpidio [facility] CPT-[facility]: 14312 03/19/2016 ([id number]) OFFICE/OUTPATIENT VISIT EST Diagnosis: Acute sinusitis, unspecified[ICD10: J01.90] Keily [facility] CPT-4: 30908 03/02/2016 OFFICE/OUTPATIENT VISIT EST Diagnosis: Other fatigue[ICD10: R53.83] Diagnosis: Retention of urine, unspecified[ICD10: R33.9] Diagnosis: Dysuria[ICD10: R30.0] Diagnosis: Generalized abdominal pain[ICD10: R10.84] 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] Aziza Magallanes KEILY Diamante [facility] CPT-4: 22411 02/24/2016 ([id number]) OFFICE/OUTPATIENT VISIT EST Diagnosis: Chronic mucoid otitis media, right ear[ICD10: H65.31] Diagnosis: Allergic rhinitis, unspecified[ICD10: J30.9] Diagnosis: 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] Keily [facility] CPT-4: 79442 12/16/2015 ([id number]) OFFICE/OUTPATIENT VISIT EST Diagnosis: Allergic rhinitis, unspecified[ICD10: J30.9] Diagnosis: Acute recurrent sinusitis, unspecified[ICD10: J01.91] Keily [facility] CPT-4: 89725 11/12/2015 ([id number]) OFFICE/OUTPATIENT VISIT EST Diagnosis: Other seasonal allergic rhinitis[ICD10: J30.2] Diagnosis: Nausea with vomiting, unspecified[ICD10: R11.2] Diagnosis: Epigastric pain[ICD10: R10.13] Aziza [facility] CPT-4: 33125 10/16/2015 OFFICE/OUTPATIENT VISIT EST Diagnosis: Encounter for follow-up examination after completed treatment for conditions other than malignant neoplasm[ICD10: Z09] Diagnosis: Generalized abdominal pain[ICD10: R10.84] Keily [facility] CPT-4: 97541 09/23/2015 ([id number]) OFFICE/OUTPATIENT VISIT EST Diagnosis: Otitis media, unspecified, right ear[ICD10: H66.91] Diagnosis: Constipation, unspecified[ICD10: K59.00] Diagnosis: Allergic rhinitis, unspecified[ICD10: J30.9] [facility] 84070 09/20/2015 OFFICE/OUTPATIENT VISIT EST Diagnosis: Allergic rhinitis, unspecified[ICD10: J30.9] Diagnosis: Unspecified perforation of tympanic membrane, right ear[ICD10: H72.91] Bibiana Garg [facility] CPT-4: 08927 09/10/2015 OFFICE/OUTPATIENT VISIT NEW Diagnosis: Epilepsy, unspecified, intractable, without status epilepticus[ICD10: G40.919] Diagnosis: Gastric ulcer, unspecified as acute or chronic, without hemorrhage or perforation[ICD10: K25.9] Diagnosis: Severe intellectual disabilities[ICD10: F72] Keily ARANGO DO [facility] CPT-4: 15065 08/21/2015 Plan of Care Planned Activity Notes [...] J18.9 05/08/2019 Appointment: [phone] [facility] [facility] 05/08/2019 Visit [...] : J30.1 05/03/2019 Appointment: Fatou Onofre [address] [place], [place] [id number] ACUTE ILLNESS 05/03/2019 Patient Education: amoxicillin- Opt[employer] Coupon [phone] [email or web address] Completed 05/03/2019 Visit Diagnosis Plan: Irritability and [...] : R45.4 11/25/2018 Appointment: Nataliia Hsieh [address] ACUTE ILLNESS 11/25/2018 Visit Diagnosis Plan: Acute suppurative otitis media without spontaneous rupture of ear drum, bilateral Discussion: cefdinir for 10 days. if wor sening symptoms later this week, call clinic. push fluids and tylenol/ibuprofen prn pain or fever. ICD-9 : 382.00 ICD-10 : H66.003 06/13/2018 Appointment: Fatou Onofre [address] [place] [address] ACUTE ILLNESS 06/13/2018 Visit Diagnosis Plan: Anuria [...] ICD-10 : R53.83 01/04/2018 Appointment: Fatou Onofre [address] [place], [place] [id number] ACUTE ILLNESS 01/04/2018 Patient Education: Patient Medication Summary Completed 01/04/2018 Visit Diagnosis Plan: Acute bronchitis, unspecified Di scussion: zithromax prescribed to take as directed. continue with allergy meds including flonase to help dry congestion. call office next week if new or worsening symptoms. ICD-9 : 466.0 ICD-10 : J20.9 12/31/2017 Appointment: Fatou Onofre [address] [place], [place] [address] ACUTE ILLNESS 12/31/2017 Patient Education: Patient Medication Summary Completed 12/31/2017 Visit Diagnosis Plan: Epilepsy, unspecif ied, intractable, without status epilepticus Discussion: Stable on current regimen ICD-9 : 345.91 ICD-10 : G40.919 12/14/2017 Visit Diagnosis Plan: Encounter for [facility] adult medical examination without abnormal findings Discussion: Had recent lab done Follow Up: 3 months ICD-9 : V70.9 ICD-10 : Z00.00 12/14/2017 Visit Diagnosis Plan: Allergic rhinitis due to pollen Discussion: Continue current meds Change night time protonix to pepcid for total histamine blockade ICD-9 : 477.9 ICD-10 : J30.1 12/14/2017 Appointment: Keily Arango WPtel: [address] [place] [address] CHECK UP 12/14/2017 Patient Education: Patient Medication [...] : G40.919 12/02/2017 Appointment: Keily Arango WPtel: [address] [place] [address] ACUTE ILLNESS 12/02/2017 Patient Education: Patient Medication Summary Completed 12/02/2017 Visit Diagnosis Plan: Other allergic rhinitis Discussi on: symptoms most likely caused from allergies. patient sent to hospital for decadron injection. instructed to restart patient's flonase at home. if new or worsening symptoms, call or rtc. ICD-9 : 477.8 ICD-10 : J30.89 10/12/2017 Appointment: Fatou Onofre [address] [place] [address] ACUTE ILLNESS 10/12/2017 Patient Education: Patient Medication [...] ICD-10 : R39.11 09/17/2017 Appointment: Fatou Onofre [address] [place] [address] ACUTE ILLNESS 09/17/2017 Patient Education: Patient Medication Summary Completed 09/17/2017 Visit Diagnosis Plan: Otitis media, unspecified, left ear Discussion: cefdinir prescribed daily for 10 days. instructed to administer tylenol/ibuprofen for pain or fever. if no improvement, or worsening symptoms, call or rtc. ICD-9 : 380.14 ICD-10 : H66.92 08/06/2017 Appointment: Fatou Onofre [address] [place] [address] ACUTE ILLNESS 08/06/2017 Patient Education: Patient Medication Summary Completed 08/06/2017 Patient Education: Patient Medication Summary Completed 08/02/2017 Patient Education: Patient Medication Summary Completed 04/21/2017 Care Plan: MRI BRAIN STEM W/O DYE LOINC : 00150-0 Pending 04/21/2017 Patient Education: Patient Medication Summary Completed 04/20/2017 Care Plan: MRI BRAIN STEM W/O DYE LOINC : 26841-8 Pending 04/20/2017 Visit Diagnosis Plan: Vertigo of central origin, unspe cified ear Discussion: Continue meclizine at 12.5mg po BID for 2 more weeks then go to 12.5mg daily for 2 weeks then 6.25mg daily for 2 weeks then stop Notify if any symptoms return with weaning process ICD-9 : 386.2 ICD-10 : H81.49 04/01/2017 Appointment: Keily Arango WPtel: [facility]4 [facility] FOLLOW UP 04/01/2017 Patient Education: Patient Medication Summary Completed 04/01/2017 Patient Education: Patient Medication Summary Completed 03/09/2017 Care Plan: CT HEAD/BRAIN W/O DYE LOINC : 82656-3 Pending 03/09/2017 Visit Plan: It's difficult to [...] indicated. 03/01/2017 Appointment: Emely Hdz WPtel: [address] [place] [address] ACUTE ILLNESS 03/01/2017 Patient Education: Patient Medication Summary Completed 03/01/2017 Patient Education: Patient Medication Summary Completed 12/17/2016 Visit Diagnosis Plan: Acute and subacute allergic otitis media (mucoid) (sanguinous) (serous), left ear Discussion: Zithromax ICD-9 : 381.05 ICD-10 : H65.112 11/10/2016 Visit Diagnosis Plan: Allergic rhinitis due to pollen Discussion: Continue zyrtec/singulair ICD-9 : 477.9 ICD-10 : J30.1 11/10/2016 Appointment: Keily Arango WPtel: [facility]8 [place] [phone] ACUTE ILLNESS 11/10/2016 Patient Education: Patient Medication Summary Completed 11/10/2016 Patient Education: Patient Medication Summary Completed 09/07/2016 Care Plan: URINALYSIS [place] : [address]3082-3 Pending 09/07/2016 Visit Diagnosis Plan: Cyst of [...] : 620.2 ICD-10 : N83.201 08/13/2016 Appointment: eKily Arango WPtel: [phone] [facility] 08/12 confirmed-sp FOLLOW UP 08/13/2016 Patient Education: Patient Medication Summary Completed 08/13/2016 Patient Education: Patient Medication Summary Completed 05/19/2016 Care Plan: X-RAY EXAM OF FOOT left foot LOINC : 26 095-0 Pending 05/19/2016 Visit Plan: Discussed with Dr Arango CB C to be drawn Order sent to Will call with results 03/27/2016 Appointment: Aziza Magallanes [address] [facility] ACUTE ILLNESS 03/27/2016 Patient Education: Patient Medication Summary Completed 03/27/2016 Visit Plan: Go for dose of rocephin 1gm IM today and tomorrow then done Diflucan 150mg x1 today Discussed with mom via phone about urology fwup--she will talk with her and let us know 03/23/2016 Appointment: [phone] 03/23 confirmed ~sl FOLLOW UP 03/23/2016 Patient Education: Patient Medication Summary Completed 03/23/2016 Visit Plan: Per Dr Arango, straight cat h for UA and culture today Ok to have a standing order for further UA needs at for straight cath Rocephin IM today and daily through Wednesday Mom has arranged a family friend that is an [employer]EC[employer] to give Wednesday and Sundays injections - rxs for rocephin and lido sent to [facility] cannot order the lido in the qty patient needs) Dr Arango wants patient to be re-evaluated on Wednesday in clinic Referral to Urology for recurrent UTIs and urinary retention - mom wants to research who she wants her sent to and let us know 03/19/2016 Appointment: Aziza Magallanes [address] [place], [place] [id number] ACUTE ILLNESS 03/19/2016 Patient Education: Patient Medication Summary Completed 03/19/2016 Visit Plan: 1 more week of cefdinir 03/02/2016 Appointment: Keily Arango WPtel: [address] [place], [place] [phone] 03/02 confirmed~sl WORK IN 03/02/2016 Patient Education: [...] seen if worsening 02/24/2016 Appointment: Aziza Magallanes [address] [place], [place] [id number] ACUTE ILLNESS 02/24/2016 Patient Education: Patient Medication Summary Completed 02/24/2016 Care Plan: CHEST X-RAY 2VW FRONTAL&LATL LOINC : 64259-8 Pending 02/24/2016 Care Plan: X-RAY EXAM OF ABDOMEN LOINC : 71974-3 Pending 02/24/2016 Visit Plan: Repeat zithromax x1 week Cip rodex to right ear x1 week Add Pepcid q HS x2-4 weeks for total histamine blockade and for extra stomach protection while on zithromax 12/16/2015 Appointment: Keily Arango WPtel: [facility] 12/11 lm~sl 12/12 lm ~sl FOLLOW UP 12/16/2015 Patient Education: Patient Medication Summary Completed 12/16/2015 Patient Education: [facility] - [employer]aving [employer] - Sertraline HCL - 18-64 - Dynamic Portal ID Completed 12/16/2015 Visit Plan: Saline nasal flushes prn. Ty lenol/Motrin prn headache. Notify if persists/symptoms worsens Dexamethasone given 11/12/2015 Appointment: Keily Arango WPtel: [address] [place], [place] [phone] [place] 5/ lm~sl 11/11 lm~sl 11/11 confirm-sp [...] visits for Belkys 10/16/2015 Appointment: Aziza Magallanes [address] [place], [place] [phone] ACUTE ILLNESS 10/16/2015 Patient Education: Patient Medication Summary Completed 10/16/2015 Appointment: Aziza Magallanes [address] [place], [place] [phone] [place] canceled, feeling better CANCELED 016 Visit Plan: No further abx needed Go mariela k to jevity for next 3 days and restart carafate Notify if abdominal pain worsens 09/23/2015 Appointment: Keily Arango WPtel: [facility]0 [facility] 09/19 confirmed-sp FOLLOW UP 09/23/2015 Patient Education: [...] try for now. 09/20/2015 Appointment: Aziza Magallanes [address] [facility] ACUTE ILLNESS 09/20/2015 Patient Education: Patient Medication Summary Completed 09/20/2015 Visit Plan: Depo Medrol 40mg/ Kenalog 40 mg IM today Resume Ciprodex otic gtts. bid to Rt. ear 09/10/2015 Appointment: Bibiana Garg WPtel: [phone] [facility] 09/08 confirmed-sp ACUTE ILLNESS 09/10/2015 Patient Education: Patient Medication Summary Completed 09/10/2015 Visit Plan: Increase Protonix to 40mg po BID for 1month Continue carafate at q AC dosing for full month then wean off Jevity for 2 more days then advance diet if able Continue current meds 08/21/2015 Appointment: Keily Arango [facility]el[phone] [place] NEW PATIENT 08/21/2015 Patient Education: [...] arranged a family friend that is an [employer] EXEC[employer] to give Wednesday and Sundays injections - [...]
--- OUTSIDE RECORDS SUMMARY | 2019-11-10 19:45 | XMS REPORT | CCD ---
Author Author Belkys Arango D.O. 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 Role Phone Keily Arango D.O., PP Unavailable CCM Unavailable Summary Purpose Interface Exchange Insurance Providers Payer name Policy type / Coverage type Covered green party ID Effective Begin Date Effective End Date [employer] [facility] [place] Medicaid [id number] 2018 Unknown Family History Family History data not found Social History Social History Element Codes Description Effective Dates Marital status Unknown S halima 08/21/2015 Employment Unknown Curre ntly unemployed Physically handicapped 08/21/[address]: 050043957 Has never smoked or chewed tobacco 08/21/[address]: 983285658 Never drinks alcohol 08/21/2015 Allergies, Adverse Reactions, Alerts Substance Reaction Codes Entered Date Inactivated Date Status * NO KNOWN FOOD MIRYAM RGIES Unknown 08/21/2015 No Inactive Date Active _ Unknown 08/21/2015 No Inactive Date Active * NO KNOWN DRUG MIRYAM RGIES Unknown 08/21/2015 No Inactive Date Active Past Medical History Illness Codes Condition Status Onset Date Resolved Date Irritability and anger ICD-9: 799.22 ICD-10: R45.4 Active 11/25/2018 Unknown Acute suppurative ot itis media without spontaneous rupture of ear drum, bilateral ICD-9: 382.00 ICD-10: H66.003 Active 06/13/2018 Unknown Acute gastritis with out bleeding ICD-9: 535.00 ICD-10: K29.00 Active 01/04/2018 Unknown Anuria and oliguria ICD- 9: 788.5 ICD-10: R34 Active 01/04/2018 Unknown Other fatigue ICD-9: 780.79 ICD-10: R53.83 Active 02/23/2016 Unknown Acute bronchitis, un specified ICD-9: 466.0 ICD-10: J20.9 Active 12/31/2017 Unknown Allergic rhinitis du e to pollen ICD-9: 477.9 ICD-10: J30.1 Active 11/10/2016 Unknown Encounter for genera l adult medical examination without abnormal findings ICD-9: V70.9 ICD-10: Z00.00 Active 12/14/2017 Unknown Epilepsy, unspecifie d, intractable, without status epilepticus ICD-9: 345.91 ICD-10: G40.919 Active 08/20/2015 Unknown Gastric ulcer, unspe cified as acute or chronic, without hemorrhage or perforation ICD-9: 531.90 ICD-10: K25.9 Active 08/20/2015 Unknown Gastro-esophageal re flux disease without esophagitis ICD-9: 530.81 ICD-10: K21.9 Active 12/14/2017 Unknown Severe intellectual disabilities ICD-9: 318.1 ICD-10: F72 Active 08/20/2015 Unknown Other allergic rhinitis ICD-9: 477.8 ICD-10: J30.89 Active 10/12/2017 Unknown Acute suppurative ot itis media without spontaneous rupture of ear drum, recurrent, left ear ICD-9: 382.00 ICD-10: H66.005 Active 09/17/2017 Unknown Hesitancy of micturi tion ICD-9: 788.64 ICD-10: R39.11 Active 09/17/2017 Unknown Otitis media, unspec ified, left ear ICD-9: 380.14 ICD-10: H66.92 Active 08/06/2017 Unknown Urinary tract infect ion, site not specified ICD-9: 599.0 ICD-10: N39.0 Active 03/22/2016 Unknown Cyclical vomiting, i ntractable ICD-9: 536.2 ICD-10: G43.A1 Active 04/21/2017 Unknown Dizziness and giddiness ICD-9: 780.4 ICD-10: R42 Active 03/09/2017 Unknown Altered mental statu s, unspecified ICD-9: 780.97 ICD-10: R41.82 Active 03/09/2017 Unknown Vomiting, unspecified ICD-9: 787.03 ICD-10: R11.10 Active 03/01/2017 Unknown Vertigo of central o rigin, unspecified ear ICD-9: 386.2 ICD-10: H81.49 Active 04/01/2017 Unknown Calculus of kidney ICD- 9: 592.0 ICD-10: N20.0 Active 08/13/2016 Unknown 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) ICD-9: 560.81 ICD-10: K56.5 Active 03/01/2017 Unknown Personal history of urinary calculi ICD-9: V13.01 ICD-10: Z87.442 Active 03/01/2017 Unknown Constipation, unspec ified ICD-9: 564.00 ICD-10: K59.00 Active 03/18/2016 Unknown Acute and subacute a llergic otitis media (mucoid) (sanguinous) (serous), left ear ICD-9: 381.05 ICD-10: H65.112 Active 11/10/2016 Unknown Other polyuria ICD-9: 788.42 ICD-10: R35.8 Active 09/07/2016 Unknown Unspecified urinary incontinence ICD-9: 788.30 ICD-10: R32 Active 09/07/2016 Unknown Cyst of kidney, acqu ired ICD-9: 753.10 ICD-10: N28.1 Active 08/13/2016 Unknown Unspecified ovarian cyst, right side ICD-9: 620.2 ICD-10: N83.201 Active 08/13/2016 Unknown Pain in left foot ICD-9: 729.5 ICD-10: M79.672 Active 05/18/2016 Unknown Rash and other nonsp ecific skin eruption ICD-9: 782.1 ICD-10: R21 Active 03/26/2016 Unknown Dysuria ICD-9: 788.1 ICD-10: R30.0 Active 03/18/2016 Unknown Retention of urine, unspecified ICD-9: 788.20 ICD-10: R33.9 Active 03/18/2016 Unknown Acute sinusitis, uns pecified ICD-9: 461.9 ICD-10: J01.90 Active 03/01/2016 Unknown Generalized abdomina l pain ICD-9: 789.07 ICD-10: R10.84 Active 02/23/2016 Unknown 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 Active 02/23/2016 Unknown Allergic rhinitis, u nspecified ICD-9: 477.9 ICD-10: J30.9 Active 12/15/2015 Unknown Chronic mucoid otiti s media, right ear ICD-9: 381.20 ICD-10: H65.31 Active 12/15/2015 Unknown Functional dyspepsia ICD-9: 536.8 ICD-10: K30 Active 12/15/2015 Unknown Acute recurrent sinu sitis, unspecified ICD-9: 461.9 ICD-10: J01.91 Active 11/11/2015 Unknown Epigastric pain ICD-9: 789.06 ICD-10: R10.13 Active 10/15/2015 Unknown Nausea with vomiting , unspecified ICD-9: 787.01 ICD-10: R11.2 Active 10/15/2015 Unknown Other seasonal aller gic rhinitis ICD-9: 477.9 ICD-10: J30.2 Active 10/15/2015 Unknown Encounter for follow -up examination after completed treatment for conditions other than malignant neoplasm ICD-9: V67.59 ICD-10: Z09 Active 09/22/2015 Unknown Generalized abdomina l pain ICD-9: 789.00 ICD-10: R10.84 Active 09/22/2015 Unknown Otitis media, unspec ified, right ear ICD-9: 382.9 ICD-10: H66.91 Active 09/19/2015 Unknown Unspecified perforat ion of tympanic membrane, right ear ICD-9: 384.20 ICD-10: H72.91 Active 09/09/2015 Unknown Problems Condition Codes Effectiv e Dates Condition Status Irritability and anger ICD-9: 799.22 ICD-10: R45.4 11/25/2018 Active Acute suppurative ot itis media without spontaneous rupture of ear drum, bilateral ICD-9: 382.00 ICD-10: H66.003 06/13/2018 Active Acute gastritis with out bleeding ICD-9: 535.00 ICD-10: K29.00 01/04/2018 Active Anuria and oliguria ICD- 9: 788.5 ICD-10: R34 01/04/2018 Active Other fatigue ICD-9: 780.79 ICD-10: R53.83 02/23/2016 Active Acute bronchitis, un specified ICD-9: 466.0 ICD-10: J20.9 12/31/2017 Active Allergic rhinitis du e to pollen ICD-9: 477.9 ICD-10: J30.1 11/10/2016 Active Encounter for genera l adult medical examination without abnormal findings ICD-9: V70.9 ICD-10: Z00.00 12/14/2017 Active Epilepsy, unspecifie d, intractable, without status epilepticus ICD-9: 345.91 ICD-10: G40.919 08/20/2015 Active Gastric ulcer, unspe cified as acute or chronic, without hemorrhage or perforation ICD-9: 531.90 ICD-10: K25.9 08/20/2015 Active Gastro-esophageal re flux disease without esophagitis ICD-9: 530.81 ICD-10: K21.9 12/14/2017 Active Severe intellectual disabilities ICD-9: 318.1 ICD-10: F72 08/20/2015 Active Other allergic rhinitis ICD-9: 477.8 ICD-10: J30.89 10/12/2017 Active Acute suppurative ot itis media without spontaneous rupture of ear drum, recurrent, left ear ICD-9: 382.00 ICD-10: H66.005 09/17/2017 Active Hesitancy of micturi tion ICD-9: 788.64 ICD-10: R39.11 09/17/2017 Active Otitis media, unspec ified, left ear ICD-9: 380.14 ICD-10: H66.92 08/06/2017 Active Urinary tract infect ion, site not specified ICD-9: 599.0 ICD-10: N39.0 03/22/2016 Active Cyclical vomiting, i ntractable ICD-9: 536.2 ICD-10: G43.A1 04/21/2017 Active Dizziness and giddiness ICD-9: 780.4 ICD-10: R42 03/09/2017 Active Altered mental statu s, unspecified ICD-9: 780.97 ICD-10: R41.82 03/09/2017 Active Vomiting, unspecified ICD-9: 787.03 ICD-10: R11.10 03/01/2017 Active Vertigo of central o rigin, unspecified ear ICD-9: 386.2 ICD-10: H81.49 04/01/2017 Active Calculus of kidney ICD- 9: 592.0 ICD-10: N20.0 08/13/2016 Active 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) ICD-9: 560.81 ICD-10: K56.5 03/01/2017 Active Personal history of urinary calculi ICD-9: V13.01 ICD-10: Z87.442 03/01/2017 Active Constipation, unspec ified ICD-9: 564.00 ICD-10: K59.00 03/18/2016 Active Acute and subacute a llergic otitis media (mucoid) (sanguinous) (serous), left ear ICD-9: 381.05 ICD-10: H65.112 11/10/2016 Active Other polyuria ICD-9: 788.42 ICD-10: R35.8 09/07/2016 Active Unspecified urinary incontinence ICD-9: 788.30 ICD-10: R32 09/07/2016 Active Cyst of kidney, acqu ired ICD-9: 753.10 ICD-10: N28.1 08/13/2016 Active Unspecified ovarian cyst, right side ICD-9: 620.2 ICD-10: N83.201 08/13/2016 Active Pain in left foot ICD-9: 729.5 ICD-10: M79.672 05/18/2016 Active Rash and other nonsp ecific skin eruption ICD-9: 782.1 ICD-10: R21 03/26/2016 Active Dysuria ICD-9: 788.1 ICD-10: R30.0 03/18/2016 Active Retention of urine, unspecified ICD-9: 788.20 ICD-10: R33.9 03/18/2016 Active Acute sinusitis, uns pecified ICD-9: 461.9 ICD-10: J01.90 03/01/2016 Active Generalized abdomina l pain ICD-9: 789.07 ICD-10: R10.84 02/23/2016 Active 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 02/23/2016 Active Allergic rhinitis, u nspecified ICD-9: 477.9 ICD-10: J30.9 12/15/2015 Active Chronic mucoid otiti s media, right ear ICD-9: 381.20 ICD-10: H65.31 12/15/2015 Active Functional dyspepsia ICD-9: 536.8 ICD-10: K30 12/15/2015 Active Acute recurrent sinu sitis, unspecified ICD-9: 461.9 ICD-10: J01.91 11/11/2015 Active Epigastric pain ICD-9: 789.06 ICD-10: R10.13 10/15/2015 Active Nausea with vomiting , unspecified ICD-9: 787.01 ICD-10: R11.2 10/15/2015 Active Other seasonal aller gic rhinitis ICD-9: 477.9 ICD-10: J30.2 10/15/2015 Active Encounter for follow -up examination after completed treatment for conditions other than malignant neoplasm ICD-9: V67.59 ICD-10: Z09 09/22/2015 Active Generalized abdomina l pain ICD-9: 789.00 ICD-10: R10.84 09/22/2015 Active Otitis media, unspec ified, right ear ICD-9: 382.9 ICD-10: H66.91 09/19/2015 Active Unspecified perforat ion of tympanic membrane, right ear ICD-9: 384.20 ICD-10: H72.91 09/09/2015 Active Medications Medication Codes Instruc tions Start Date Stop Date Sta tus Fill Instructions Macrobid 100 mg capsule RxNorm: 346198 1 Capsule(s) PO BID 03/16/2019 03/22/2019 Active meclizine 12.5 mg ta blet RxNorm: 025502 1 Tablet(s) PO TID as needed 03/10/2019 05/08/2019 Ac tive change in quantity Ciprodex 0.3 %-0.1 % ear drops,suspension RxNorm: 149824 DROP(S) 4 DROP(S) ATILIO C BID 03/08/2019 04/04/2019 Ac tive oxcarbazepine 300 mg /5 mL (60 mg/mL) oral suspension RxNorm: 758550 15 Milliliter(s) PO BID 03/07/2019 09/02/2019 Active Macrobid 100 mg capsule RxNorm: 831848 1 Capsule(s) PO BID 02/20/2019 03/01/2019 Inactive Macrobid 100 mg capsule RxNorm: 805158 1 Capsule(s) PO BID 02/20/2019 02/19/2019 Inactive meclizine 12.5 mg ta blet RxNorm: 627227 1 Tablet(s) PO TID as needed 02/06/2019 03/07/2019 In active change in quantity Ciprodex 0.3 %-0.1 % ear drops,suspension RxNorm: 646124 DROP(S) 4 DROP(S) ATILIO C BID 01/30/2019 02/12/2019 Inactive diazepam 10 mg tablet RxNorm: 782556 1 Tablet(s) PO QHS as needed 01/27/2019 03/27/2019 Active sertraline 50 mg tablet RxNorm: 813037 1 Tablet(s) PO QHS 12/29/2018 06/26/2019 Active famotidine 20 mg tablet RxNorm: 143919 1 Tablet(s) PO QHS 12/29/2018 06/26/2019 Active Ciprodex 0.3 %-0.1 % ear drops,suspension RxNorm: 898264 DROP(S) 4 DROP(S) ATILIO C BID 12/14/2018 12/27/2018 Inactive Generlac 10 gram/15 mL oral solution RxNorm: 194777 15 Milliliter(s) PO T WO TO THREE TIMES DAILY 12/06/2018 06/03/2019 Active Protonix 40 mg table t,delayed release RxNorm: 781735 1 Tablet(s) PO or per feeding tube BID 11/24/2018 05/22/2019 Active meclizine 12.5 mg ta blet RxNorm: 462985 1 Tablet(s) PO TID as needed 11/11/2018 02/06/2019 In active change in quantity Ciprodex 0.3 %-0.1 % ear drops,suspension RxNorm: 963940 DROP(S) 4 DROP(S) ATILIO C BID 11/08/2018 11/21/2018 Inactive diazepam 10 mg tablet RxNorm: 937361 1 Tablet(s) PO QHS as needed 10/21/2018 11/19/2018 Inactive Generlac 10 gram/15 mL oral solution RxNorm: 003628 Milliliter(s) 15 MILL ILITER(S) PO TWO TO THREE TIMES DAILY 10/07/2018 11/05/2018 Inactive Ciprodex 0.3 %-0.1 % ear drops,suspension RxNorm: 415695 DROP(S) DROP(S) 4 JENELLE P(S) OTIC BID 08/26/2018 03/15/2019 Inactive meclizine 12.5 mg ta blet RxNorm: 062377 1 TABLET(S) PO TID NEEDED 07/25/2018 10/22/2018 In active change in quantity oxcarbazepine 300 mg /5 mL (60 mg/mL) oral suspension RxNorm: 614024 15 Milliliter(s) PO BID 07/08/2018 07/07/2018 Inactive oxcarbazepine 300 mg /5 mL (60 mg/mL) oral suspension RxNorm: 311224 15 Milliliter(s) PO BID 07/08/2018 01/03/2019 Inactive sertraline 50 mg tablet RxNorm: 925612 1 TABLET(S) PO QHS 07/06/2018 12/28/2018 Inactive Singulair 10 mg tablet RxNorm: 423377 1 TABLET(S) PO QD 06/24/2018 03/20/2019 Active Ciprodex 0.3 %-0.1 % ear drops,suspension RxNorm: 109182 DROP(S) 4 DROP(S) ATILIO C BID 06/20/2018 06/19/2018 Inactive Ciprodex 0.3 %-0.1 % ear drops,suspension RxNorm: 061925 Drop(s) DROP(S) 4 JENELLE P(S) OTIC BID 06/20/2018 07/03/2018 Inactive cefdinir 250 mg/5 mL oral suspension RxNorm: 230348 12 Milliliter(s) PO Q D though PEG tube 06/13/2018 06/22/2018 Inactive famotidine 20 mg tablet RxNorm: 564346 1 Tablet(s) PO QHS 05/31/2018 11/26/2018 Inactive famotidine 40 mg/5 m L (8 mg/mL) oral suspension RxNorm: 523861 2.5 Milliliter(s) PO QHS 04/29/2018 06/12/2018 Inactive meclizine 12.5 mg ta blet RxNorm: 557336 1 TABLET(S) PO TID NEEDED 04/25/2018 07/23/2018 In active change in quantity Generlac 10 gram/15 mL oral solution RxNorm: 347462 Milliliter(s) 15 MILL ILITER(S) PO TWO TO THREE TIMES DAILY 04/04/2018 05/03/2018 Inactive Ciprodex 0.3 %-0.1 % ear drops,suspension RxNorm: 528391 Drop(s) 4 DROP(S) ATILIO C BID 04/04/2018 04/17/2018 Inactive diazepam 10 mg tablet RxNorm: 589529 1 Tablet(s) PO QHS as needed 04/04/2018 05/03/2018 Inactive famotidine 40 mg/5 m L (8 mg/mL) oral suspension RxNorm: 689651 2.5 Milliliter(s) PO QHS 04/04/2018 04/28/2018 Inactive Generlac 10 gram/15 mL oral solution RxNorm: 260645 15 MILLILITER(S) PO T WO TO THREE TIMES DAILY 03/24/2018 04/03/2018 Inactive Singulair 10 mg tablet RxNorm: 167420 1 TABLET(S) PO QD 03/18/2018 06/15/2018 Inactive Ciprodex 0.3 %-0.1 % ear drops,suspension RxNorm: 242147 Drop(s) 4 DROP(S) ATILIO C BID 03/08/2018 03/21/2018 Inactive Generlac 10 gram/15 mL oral solution RxNorm: 190861 15 Milliliter(s) PO t wo to three times daily 03/03/2018 03/23/2018 Inactive meclizine 12.5 mg ta blet RxNorm: 944610 1 Tablet(s) PO TID as needed 02/10/2018 04/10/2018 In active change in quantity meclizine 12.5 mg ta blet RxNorm: 890692 1 Tablet(s) PO BID as needed 02/07/2018 02/09/2018 In active change in quantity Ciprodex 0.3 %-0.1 % ear drops,suspension RxNorm: 077725 Drop(s) 4 DROP(S) ATILIO C BID 02/02/2018 03/08/2018 Inactive sertraline 50 mg tablet RxNorm: 184321 1 TABLET(S) PO QHS 01/25/2018 07/05/2018 Inactive Zithromax 200 mg/5 m L oral suspension RxNorm: 800775 12.5 Milliliter(s) PO QD 12/31/2017 01/04/2018 In active Pepcid 20 mg tablet RxNorm: 084210 TABLET(S) 1 TABLET(S) PO QHS 12/28/2017 04/29/2018 Inactive famotidine 40 mg/5 m L (8 mg/mL) oral suspension RxNorm: 739059 2.5 Milliliter(s) PO QHS 12/28/2017 12/27/2017 Inactive famotidine 40 mg/5 m L (8 mg/mL) oral suspension RxNorm: 793033 2.5 Milliliter(s) PO QHS 12/28/2017 04/03/2018 Inactive Ciprodex 0.3 %-0.1 % ear drops,suspension RxNorm: 545879 Drop(s) 4 DROP(S) ATILIO C BID 12/27/2017 02/02/2018 Inactive meclizine 12.5 mg ta blet RxNorm: 035951 1 Tablet(s) PO BID as needed 12/23/2017 02/06/2018 In active change in quantity Protonix 40 mg table t,delayed release RxNorm: 588861 1 Tablet(s) PO or per feeding tube BID 12/16/2017 07/13/2018 Inactive oxcarbazepine 300 mg /5 mL (60 mg/mL) oral suspension RxNorm: 365114 15 Milliliter(s) PO BID 12/16/2017 07/08/2018 Inactive meclizine 12.5 mg ta blet RxNorm: 343141 1 Tablet(s) PO BID as needed 12/15/2017 02/07/2018 In active change in quantity Pepcid 40 mg/5 mL (8 mg/mL) oral suspension RxNorm: 497576 5 Milliliter(s) PO QH S to replace nighttime pantoprazole dose 12/14/2017 12/27/2017 Inactive meclizine 12.5 mg ta blet RxNorm: 567903 1 Tablet(s) PO BID as needed 12/13/2017 12/23/2017 In active diazepam 10 mg tablet RxNorm: 109572 1 Tablet(s) PO QHS as needed 12/02/2017 03/01/2018 Inactive prednisolone 15 mg/5 mL oral solution RxNorm: 889501 5 Milliliter(s) PO BI D for 3 days then 5ml daily for 3 days then 2.5ml daily for 3 days 12/02/2017 12/13/2017 Inactive sertraline 50 mg tablet RxNorm: 200906 1 Tablet(s) PO QHS 11/04/2017 01/24/2018 Inactive Ciprodex 0.3 %-0.1 % ear drops,suspension RxNorm: 365112 Drop(s) 4 DROP(S) ATILIO C BID 10/18/2017 10/31/2017 Inactive Ciprodex 0.3 %-0.1 % ear drops,suspension RxNorm: 513104 Drop(s) 4 DROP(S) ATILIO C BID 10/18/2017 12/27/2017 Inactive Singulair 10 mg tablet RxNorm: 432039 1 Tablet(s) PO QD 09/30/2017 03/17/2018 Inactive diazepam 5 mg/5 mL ( 1 mg/mL) oral solution RxNorm: 127510 2.5 Milliliter(s) PO QD give additional 5 mg dose if seizure occurs 09/17/2017 No Stop Date Active Bactrim DS 800 mg-16 0 mg tablet RxNorm: 348415 1 Tablet(s) PO BID 09/17/2017 09/23/2017 Inactive Ciprodex 0.3 %-0.1 % ear drops,suspension RxNorm: 281190 4 DROP(S) OTIC BID 09/13/2017 10/18/2017 In active cefdinir 250 mg/5 mL oral suspension RxNorm: 948983 12 Milliliter(s) PO Q D though PEG tube 08/06/2017 08/15/2017 Inactive sertraline 50 mg tablet RxNorm: 266528 1 Tablet(s) PO QHS 08/02/2017 11/04/2017 Inactive Ciprodex 0.3 %-0.1 % ear drops,suspension RxNorm: 585638 4 DROP(S) OTIC BID 07/22/2017 08/11/2017 In active Singulair 10 mg tablet RxNorm: 591484 1 Tablet(s) PO QD 06/30/2017 09/30/2017 Inactive diazepam 10 mg tablet RxNorm: 052168 TAKE 1 TABLET BY MOUTH EVERY NIGHT AT [facility] NEEDED 06/04/2017 07/03/2017 Inactive oxcarbazepine 300 mg /5 mL (60 mg/mL) oral suspension RxNorm: 640245 15 MILLILITER(S) PO BID 05/03/2017 12/16/2017 Inactive sertraline 50 mg tablet RxNorm: 299828 1 Tablet(s) PO QHS 05/03/2017 08/02/2017 Inactive Protonix 40 mg table t,delayed release RxNorm: 906636 1 Tablet(s) PO or per feeding tube BID 04/26/2017 12/16/2017 Inactive Ciprodex 0.3 %-0.1 % ear drops,suspension RxNorm: 120781 4 DROP(S) OTIC BID 04/26/2017 05/23/2017 In active Generlac 10 gram/15 mL oral solution RxNorm: 901022 Milliliter(s) TAKE 15 ML BY MOUTH TWO-THREE TIMES DAILY 04/08/2017 03/03/2018 Inactive Singulair 10 mg tablet RxNorm: 280317 1 Tablet(s) PO QD 03/03/2017 06/30/2017 Inactive diazepam 10 mg tablet RxNorm: 884923 1 Tablet(s) PO QHS as needed 02/15/2017 06/04/2017 Inactive Singulair 10 mg tablet RxNorm: 674915 1 Tablet(s) PO QD 12/01/2016 03/03/2017 Inactive Diflucan 150 mg tablet RxNorm: 214464 Tablet(s) Give 1 tab PO now and then rep eat dose in 5 days 11/10/2016 03/31/2017 Inactive Zithromax 200 mg/5 m L oral suspension RxNorm: 391022 12.5 Milliliter(s) PO QD 11/10/2016 11/14/2016 In active Singulair 10 mg tablet RxNorm: 201808 TAKE 1 TABLET BY MOUTH ONCE DAILY 11/02/2016 12/01/2016 In active diazepam 10 mg tablet RxNorm: 925366 TAKE 1 TABLET BY MOUTH EVERY NIGHT AT BE DTIME NEEDED 10/21/2016 11/19/2016 Inactive sertraline 50 mg tablet RxNorm: 697811 1 Tablet(s) PO QHS 10/12/2016 01/09/2017 Inactive fluconazole 100 mg t ablet RxNorm: 424268 1 Tablet(s) PO QD 09/22/2016 09/24/2016 Inactive fluconazole 100 mg t ablet RxNorm: 790343 1 Tablet(s) PO QD 09/22/2016 09/21/2016 Inactive Bactrim DS 800 mg-16 0 mg tablet RxNorm: 924239 1 Tablet(s) PO BID 09/10/2016 09/09/2016 Inactive Bactrim DS 800 mg-16 0 mg tablet RxNorm: 273604 1 Tablet(s) PO BID 09/10/2016 09/16/2016 Inactive oxcarbazepine 300 mg /5 mL (60 mg/mL) oral suspension RxNorm: 957281 15 Milliliter(s) PO BID 09/07/2016 03/05/2017 Inactive sertraline 50 mg tablet RxNorm: 984106 1 Tablet(s) PO QHS 07/06/2016 10/03/2016 Inactive Pepcid 20 mg tablet RxNorm: 031452 Tablet(s) 1 TABLET(S) PO QHS 07/06/2016 03/08/2017 Inactive sertraline 50 mg tablet RxNorm: 029116 1 Tablet(s) PO QHS 06/08/2016 05/03/2017 Inactive Generlac 10 gram/15 mL oral solution RxNorm: 036238 Milliliter(s) TAKE 15 ML BY MOUTH TWO-THREE TIMES DAILY 06/08/2016 09/08/2016 Inactive Pepcid 20 mg tablet RxNorm: 861318 1 TABLET(S) PO QHS 06/04/2016 07/05/2016 Inactive fluconazole 100 mg t ablet RxNorm: 197507 1 Tablet(s) QD throug h PEG tube 05/13/2016 12/01/2017 In active Diflucan 150 mg tablet RxNorm: 311048 Give 1 tab PO now and then repeat dose i n 5 days 03/19/2016 11/09/2016 Inactive ceftriaxone 1 gram s olution for injection RxNorm: 1201641 1 Gram(s) IM QD Satu and Wednesday03/19/2016 11/09/2016 Inactive lidocaine 10 mg/mL ( 1 %) injection solution RxNorm: 1156422 Use as directed to reconstitute Rocephin when needed 03/19/2016 12/13/2017 Inactive Generlac 10 gram/15 mL oral solution RxNorm: 558485 TAKE 15 ML BY MOUTH T WO-THREE TIMES DAILY 03/19/2016 06/07/2016 Inactive oxcarbazepine 300 mg /5 mL oral suspension RxNorm: 399853 15 Milliliter(s) PO B ID 03/13/2016 09/07/2016 In active Ciprodex 0.3 %-0.1 % ear drops,suspension RxNorm: 964063 4 DROP(S) OTIC BID 03/09/2016 03/15/2016 In active cefdinir 250 mg/5 mL oral suspension RxNorm: 605969 11.75 Milliliter(s) P O QD though PEG tube 03/02/2016 03/08/2016 Inactive cefdinir 250 mg/5 mL oral suspension RxNorm: 730121 11.75 Milliliter(s) P O QD though PEG tube 02/24/2016 03/01/2016 Inactive cefdinir 250 mg/5 mL oral suspension RxNorm: 726567 11.75 Milliliter(s) P O QD though PEG tube 02/24/2016 02/23/2016 Inactive Ciprodex 0.3 %-0.1 % ear drops,suspension RxNorm: 490408 4 Drop(s) OTIC BID 02/24/2016 03/01/2016 In active Generlac 10 gram/15 mL oral solution RxNorm: 553136 TAKE 15 ML BY MOUTH T WICE DAILY 02/17/2016 03/18/2016 Inactive Generlac 10 gram/15 mL oral solution RxNorm: 565127 15 Milliliter(s) PO B ID 01/23/2016 02/16/2016 In active Pepcid 20 mg tablet RxNorm: 227262 1 TABLET(S) PO QHS 01/13/2016 06/03/2016 Inactive Ciprodex 0.3 %-0.1 % ear drops,suspension RxNorm: 491053 4 Drop(s) OTIC BID 12/23/2015 12/29/2015 In active sertraline 50 mg tablet RxNorm: 597653 1 Tablet(s) PO QHS 12/16/2015 06/07/2016 Inactive Zithromax 500 mg tablet RxNorm: 552368 1 Tablet(s) PO QD 12/16/2015 12/22/2015 Inactive Pepcid 20 mg tablet RxNorm: 413305 1 Tablet(s) PO QHS 12/16/2015 01/12/2016 Inactive Zithromax 500 mg tablet RxNorm: 039086 1 Tablet(s) PO QD 11/12/2015 11/18/2015 Inactive Singulair 10 mg tablet RxNorm: 296477 1 Tablet(s) PO BID 10/16/2015 11/11/2015 Inactive diazepam 10 mg tablet RxNorm: 055076 1 Tablet(s) PO QHS 10/07/2015 10/21/2016 Inactive diazepam 10 mg tablet RxNorm: 379715 1 Tablet(s) PO QHS 10/07/2015 10/06/2015 Inactive fexofenadine 30 mg/5 mL oral suspension RxNorm: 105131 10 Milliliter(s) PO o ne to two times daily PRN allergies 09/20/2015 12/15/2015 Inactive ceftriaxone 1 gram s olution for injection RxNorm: 4322103 1 Gram(s) IM QD 09/20/2015 09/21/2015 In active Ciprodex 0.3 %-0.1 % ear drops,suspension RxNorm: 155835 4 Drop(s) OTIC BID 09/20/2015 10/03/2015 In active Protonix 40 mg table t,delayed release RxNorm: 208191 1 Tablet(s) PO or per feeding tube BID 08/21/2015 12/18/2015 Inactive Carafate 100 mg/mL o ral suspension RxNorm: 043307 10 Milliliter(s) Misc ellaneous per feeding tube AC & HS 08/21/2015 09/19/2015 Inactive Zyrtec 10 mg tablet RxNorm: 1440931 1 Tablet(s) PO QD No Start Date Active diazepam 20 mg recta l kit RxNorm: 756354 RTL as needed No Start Date Active Lortab Elixir 10 mg- 300 mg/15 mL oral solution RxNorm: 2726775 8 PO Q6-8H as needed No Start Date Active ondansetron HCl 4 mg /5 mL oral solution RxNorm: 754027 10 Milliliter(s) PO a s needed and through tube No Start Date Active sertraline 50 mg tablet RxNorm: 306693 1 Tablet(s) PO QD No Start Date 12/15/2015 Inactive Brittany 180 mg tablet RxNorm: 555915 1 Tablet(s) PO QD No Start Date 06/12/2018 Inactive Generlac 10 gram/15 mL oral solution RxNorm: 453987 15 Milliliter(s) PO B ID No Start Date 01/22/2016 Inactive oxcarbazepine 300 mg /5 mL oral suspension RxNorm: 810612 13.5 Milliliter(s) PO QAM and 15ml in the evening No Start Date 12/15/2015 Inactive Singulair 10 mg tablet RxNorm: 311764 1 Tablet(s) PO QD No Start Date 11/30/2016 Inactive meclizine 12.5 mg ta blet RxNorm: 665189 1 Tablet(s) PO TID as needed for dizziness No Start Date 09/13/2017 Inactive meclizine 12.5 mg ta blet RxNorm: 235270 1 Tablet(s) PO BID No Start Date 12/12/2017 Inactive fluconazole 100 mg t ablet RxNorm: 512277 1 Tablet(s) QD throug h PEG tube No Start Date 05/12/2016 Inactive Flomax 0.4 mg capsule RxNorm: 765093 1 Capsule(s) PO QD No Start Date 06/12/2018 Inactive diazepam 10 mg tablet RxNorm: 321482 1 Tablet(s) PO QHS as needed No Start Date 02/14/2017 Inactive Generlac 10 gram/15 mL oral solution RxNorm: 725974 15 Milliliter(s) PO t wo to three times daily No Start Date 03/02/2018 Inactive oxcarbazepine 300 mg /5 mL oral suspension RxNorm: 940625 15 Milliliter(s) PO B ID No Start Date 12/15/2017 Inactive Medication Administered No Medication Administered data Immunizations No Immunization data Assessments Condition Codes Effectiv e Dates Irritability and anger ICD-10: R45.4 ICD-9: 799.22 11/25/2018 Acute suppurative otitis media without s pontaneous rupture of ear drum, bilateral ICD-10: H66.003 ICD-9: 382.00 06/13/2018 Other fatigue ICD-10: R53.83 ICD-9: 780.79 01/04/2018 Acute gastritis without bleeding ICD -10: K29.00 ICD-9: 535.00 01/04/2018 Anuria and oliguria ICD-10: R34 ICD-9: 788.5 01/04/2018 Acute bronchitis, unspecified ICD-10 : J20.9 ICD-9: 466.0 12/31/2017 Allergic rhinitis due to pollen ICD- 10: J30.1 ICD-9: 477.9 12/14/2017 Encounter for general adult medical exam ination without abnormal findings ICD-10: Z00.00 ICD-9: V70.9 12/14/2017 Severe intellectual disabilities ICD -10: F72 ICD-9: 318.1 12/14/2017 Epilepsy, unspecified, intractable, with out status epilepticus ICD-10: G40.919 ICD-9: 345.91 12/14/2017 Gastro-esophageal reflux disease without esophagitis ICD-10: K21.9 ICD-9: 530.81 12/14/2017 Other allergic rhinitis ICD-10: J30. 89 ICD-9: 477.8 10/12/2017 Acute suppurative otitis media without s pontaneous rupture of ear drum, recurrent, left ear ICD-10: H66.005 ICD-9: 382.00 09/17/2017 Hesitancy of micturition ICD-10: R39 .11 ICD-9: 788.64 09/17/2017 Otitis media, unspecified, left ear ICD-10: H66.92 ICD-9: 380.14 08/06/2017 Urinary tract infection, site not specified ICD-10: N39.0 ICD-9: 599.0 08/02/2017 Dizziness and giddiness ICD-10: R42 ICD-9: 780.4 04/21/2017 Cyclical vomiting, intractable ICD-1 0: G43.A1 ICD-9: 536.2 04/21/2017 Vomiting, unspecified ICD-10: R11.10 ICD-9: 787.03 04/20/2017 Altered mental status, unspecified I CD-10: R41.82 ICD-9: 780.97 04/20/2017 Vertigo of central origin, unspecified ear ICD-10: H81.49 ICD-9: 386.2 04/01/2017 Personal history of urinary calculi ICD-10: Z87.442 ICD-9: V13.01 03/01/2017 Intestinal adhesions [bands] with obstru ction (postprocedural) (postinfection) ICD-10: K56.5 ICD-9: 560.81 03/01/2017 Constipation, unspecified ICD-10: K5 9.00 ICD-9: 564.00 12/17/2016 Acute and subacute allergic otitis media (mucoid) (sanguinous) (serous), left ear ICD-10: H65.112 ICD-9: 381.05 11/10/2016 Unspecified urinary incontinence ICD -10: R32 ICD-9: 788.30 09/07/2016 Other polyuria ICD-10: R35.8 ICD-9: 788.42 09/07/2016 Calculus of kidney ICD-10: N20.0 ICD-9: 592.0 08/13/2016 Cyst of kidney, acquired ICD-10: N28 .1 ICD-9: 753.10 08/13/2016 Unspecified ovarian cyst, right side ICD-10: N83.201 ICD-9: 620.2 08/13/2016 Pain in left foot ICD-10: M79.672 ICD-9: 729.5 05/19/2016 Rash and other nonspecific skin eruption ICD-10: R21 ICD-9: 782.1 03/27/2016 Retention of urine, unspecified ICD- 10: R33.9 ICD-9: 788.20 03/19/2016 Dysuria ICD-10: R30.0 ICD-9: 788.1 03/19/2016 Acute sinusitis, unspecified ICD-10: J01.90 ICD-9: 461.9 03/02/2016 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 ICD-9: 307.52 02/24/2016 Generalized abdominal pain ICD-10: R 10.84 ICD-9: 789.07 02/24/2016 Chronic mucoid otitis media, right ear ICD-10: H65.31 ICD-9: 381.20 12/16/2015 Functional dyspepsia ICD-10: K30 ICD-9: 536.8 12/16/2015 Allergic rhinitis, unspecified ICD-1 0: J30.9 ICD-9: 477.9 12/16/2015 Acute recurrent sinusitis, unspecified ICD-10: J01.91 ICD-9: 461.9 11/12/2015 Epigastric pain ICD-10: R10.13 ICD-9: 789.06 10/16/2015 Nausea with vomiting, unspecified IC D-10: R11.2 ICD-9: 787.01 10/16/2015 Other seasonal allergic rhinitis ICD -10: J30.2 ICD-9: 477.9 10/16/2015 Generalized abdominal pain ICD-10: R 10.84 ICD-9: 789.00 09/23/2015 Encounter for follow-up examination afte r completed treatment for conditions other than malignant neoplasm ICD-10: Z09 ICD-9: V67.59 09/23/2015 Otitis media, unspecified, right ear ICD-10: H66.91 ICD-9: 382.9 09/20/2015 Unspecified perforation of tympanic membrane, right ea r ICD- 10: H72.91 ICD-9: 384.20 09/10/2015 Gastric ulcer, unspecified as acute or c hronic, without hemorrhage or perforation ICD-10: K25.9 ICD-9: 531.90 08/21/2015 Reason For Visit Reason For Visit Effective Dates Notes pain, generalized 11/25/2018 Mother says patient is just off with increased agitation. She acts like she is in pain somewhere seizure 06/13/2018 gets these when she does not feel well follow up 01/04/2018 Grace bonilla was seen last Wednesday for acute bronchitis. Patient given zithromax and to continue allergy medications. She has been having trouble urinating intermittently this . According to mother, has not urinated since 0345 this am. She has also been vomiting and irritable/uncomfortable. They were able to give her her seizure medications last night. fatigue 12/31/2017 Per m other patient has been going "down hill for the last week". She only seems to perk up when given prednisone. She is more lethargic, is drooling more, and not wanting to eat. She is also pulling/picking at both of her ears nasal allergies 12/14/2017 seizure 12/02/2017 otalgia 10/12/2017 seizure 09/17/2017 Félix armstrong has concerns of UTI or ear infection. Stated she has had weight increase so seizure medication may need adjusted fussiness 08/06/2017 follow up 04/01/2017 vomiting 03/01/2017 nasal discharge 11/10/2016 Mother has concerns of sore throat due to not eating as well follow up 08/13/2016 rash 03/27/2016 follow up 03/23/2016 urinary retention/hesitancy 03/19/2016 Mom states she has hving increased episodes follow up 03/02/2016 Grace bonilla finished off the Cephelexin seizure 02/24/2016 follow up 12/16/2015 4mo fwup follow up 11/12/2015 Grace bonilla's mother states she messes with her ears and lip quivers with discomfort. Patient was prescribed Singulair last visit but mother does not want to proceed with that at this time follow up 10/16/2015 Grace bonilla's mother states she has been pulling at ears nonstop. She inquired about possibly getting allergy injections weekly or being tested. follow up 09/23/2015 follow up 09/20/2015 otalgia 09/10/2015 ~generic 08/21/2015 New Patient----establishing visit Results No Results data Review of Systems System Result Effective Dates Constitutional fussiness 11/25/2018 Constitutional No night sweats 11/25/2018 Constitutional No anorexia 11/25/2018 Constitutional No chills 11/25/2018 Constitutional No recent illness 11/25/2018 Constitutional No diaphoresis 11/25/2018 Constitutional No fatigue 11/25/2018 Constitutional No fever 11/25/2018 Constitutional insomnia 11/25/2018 Constitutional No malaise 11/25/2018 Constitutional No weight gain/obesity 11/25/2018 Constitutional No weight loss 11/25/2018 Eyes No eye pain 019 Eyes No eye discharge Ears/Nose/Throat/Neck No dizziness 11/25/2018 Cardiovascular No chest pain/pressure 11/25/2018 Cardiovascular No arrhythmia 11/25/2018 Respiratory No cough Gastrointestinal diarrhea 11/25/2018 Genitourinary/Nephrology No polyuria 11/25/2018 Genitourinary/Nephrology urinary ret ention/hesitancy 11/25/2018 Musculoskeletal No low back pain 11/25/2018 Musculoskeletal No arthralgia(s) 11/25/2018 Dermatologic No rash Dermatologic No sores Neurologic No mental status change 11/25/2018 Hematologic/Lymphatic No abnormal ec chymoses 11/25/2018 Hematologic/Lymphatic No abnormal bl eeding and bruising 11/25/2018 Constitutional fatigue 1 08/14/2017 Constitutional No fever 06/13/2018 Constitutional No chills 06/13/2018 Constitutional anorexia 06/13/2018 Respiratory No cough 04/2018 Respiratory No chest congestion 06/13/2018 Respiratory No wheezing 06/13/2018 Ears/Nose/Throat/Neck No sinusitis 06/13/2018 Ears/Nose/Throat/Neck No sinus congestion 06/13/2018 Ears/Nose/Throat/Neck No otalgia 06/13/2018 Dermatologic No rash 04/2018 Neurologic weakness 06/04 Gastrointestinal No abdominal pain 06/13/2018 Gastrointestinal No constipation 06/13/2018 Gastrointestinal No diarrhea 06/13/2018 Gastrointestinal No vomiting 06/13/2018 Genitourinary/Nephrology No anuria/oliguri a 06/13/2018 Genitourinary/Nephrology No dysuria 06/13/2018 Genitourinary/Nephrology No hematuria 06/13/2018 Neurologic seizure 06/13 Constitutional No fever 01/04/2018 Constitutional fatigue 0 01/04/2018 Genitourinary/Nephrology anuria/oliguria 01/04/2018 Gastrointestinal vomiting 01/04/2018 Gastrointestinal No melena 01/04/2018 Gastrointestinal No constipation 01/04/2018 Gastrointestinal No diarrhea 01/04/2018 Respiratory No cough 09/2017 Dermatologic No rash 09/2017 Cardiovascular No dyspnea 01/04/2018 Constitutional anorexia 01/04/2018 Constitutional No fever 12/31/2017 Constitutional fatigue 0 12/31/2017 Constitutional No chills 12/31/2017 Ears/Nose/Throat/Neck otalgia 12/31/2017 Constitutional anorexia 12/31/2017 Gastrointestinal No abdominal pain 12/31/2017 Gastrointestinal No constipation 12/31/2017 Gastrointestinal No diarrhea 12/31/2017 Gastrointestinal No vomiting 12/31/2017 Genitourinary/Nephrology No hematuria 12/31/2017 Genitourinary/Nephrology No urinary frequency 12/31/2017 Dermatologic No rash Respiratory No cough Constitutional No night sweats 12/14/2017 Constitutional No fatigue 12/14/2017 Constitutional No fever 12/14/2017 Constitutional No insomnia 12/14/2017 Constitutional No weight loss 12/14/2017 Eyes No eye pain 018 Eyes No photophobia 12/03 Eyes No vision change Eyes No visual disturbance 12/14/2017 Ears/Nose/Throat/Neck No hearing loss 12/14/2017 Ears/Nose/Throat/Neck No nasal discharge 12/14/2017 Ears/Nose/Throat/Neck No sinus congestion 12/14/2017 Ears/Nose/Throat/Neck No sore throat 12/14/2017 Cardiovascular No arrhythmia 12/14/2017 Cardiovascular No chest pain/pressure 12/14/2017 Cardiovascular No edema 12/14/2017 Cardiovascular No exercise intolerance 12/14/2017 Cardiovascular No orthopnea 12/14/2017 Cardiovascular No palpitations 12/14/2017 Respiratory No asthma Respiratory No cough 06/2018 Respiratory No dyspnea 0 12/14/2017 Respiratory No pleuritic pain 12/14/2017 Respiratory No productive sputum 12/14/2017 Respiratory No wheezing 12/14/2017 Gastrointestinal No hemorrhoids 12/14/2017 Gastrointestinal No hepatitis 12/14/2017 Gastrointestinal No abdominal pain 12/14/2017 Gastrointestinal No constipation 12/14/2017 Gastrointestinal No diarrhea 12/14/2017 Gastrointestinal No gastroesophageal reflu x 12/14/2017 Gastrointestinal No melena 12/14/2017 Gastrointestinal No nausea 12/14/2017 Gastrointestinal No vomiting 12/14/2017 Genitourinary/Nephrology No dysuria 12/14/2017 Genitourinary/Nephrology No nocturia 12/14/2017 Genitourinary/Nephrology No urinary incontinence 12/14/2017 Musculoskeletal No muscle weakness 12/14/2017 Musculoskeletal No myalgias 12/14/2017 Musculoskeletal No stiffness 12/14/2017 Musculoskeletal No swelling 12/14/2017 Dermatologic No rash 06/2018 Dermatologic No scar 06/2018 Neurologic No dizziness 12/14/2017 Neurologic No headache 0 12/14/2017 Neurologic No neck pain 12/14/2017 Neurologic No syncope Psychiatric No anxiety 0 12/14/2017 Psychiatric No depression 12/14/2017 Endocrine No goiter 12/03 Endocrine No hyperglycemia 12/14/2017 Endocrine No hypoglycemia 12/14/2017 Hematologic/Lymphatic No abnormal ec chymoses 12/14/2017 Hematologic/Lymphatic No petechiae 12/14/2017 Hematologic/Lymphatic No abnormal bl eeding and bruising 12/14/2017 Hematologic/Lymphatic No anemia 12/14/2017 Hematologic/Lymphatic No lymph node enlargement/mass 12/14/2017 Allergy/Immunology No food allergy 12/14/2017 Psychiatric disturbances of emotion 12/14/2017 Ears/Nose/Throat/Neck nasal allergies 12/14/2017 Neurologic seizure 12/14 Constitutional No night sweats 12/02/2017 Constitutional No fatigue 12/02/2017 Constitutional No fever 12/02/2017 Constitutional No insomnia 12/02/2017 Constitutional No weight loss 12/02/2017 Ears/Nose/Throat/Neck No hearing loss 12/02/2017 Ears/Nose/Throat/Neck nasal discharge 12/02/2017 Ears/Nose/Throat/Neck No sinus congestion 12/02/2017 Ears/Nose/Throat/Neck No sore throat 12/02/2017 Ears/Nose/Throat/Neck nasal allergies 12/02/2017 Respiratory cough 2017 Constitutional No fatigue 10/12/2017 Constitutional No fever 10/12/2017 Ears/Nose/Throat/Neck otalgia 10/12/2017 Ears/Nose/Throat/Neck No sore throat 10/12/2017 Ears/Nose/Throat/Neck sinus congestion 10/12/2017 Ears/Nose/Throat/Neck sinusitis 10/12/2017 Respiratory No cough 04/2018 Ears/Nose/Throat/Neck nasal allergies 10/12/2017 Neurologic seizure 10/12 Genitourinary/Nephrology No anuria/oliguri a 09/17/2017 Genitourinary/Nephrology No dysuria 09/17/2017 Genitourinary/Nephrology No hematuria 09/17/2017 Genitourinary/Nephrology No urinary urgenc y 09/17/2017 Genitourinary/Nephrology No urinary frequency 09/17/2017 Genitourinary/Nephrology urinary ret ention/hesitancy 09/17/2017 Constitutional fussiness 09/17/2017 Constitutional fatigue 0 09/17/2017 Constitutional No fever 09/17/2017 Constitutional No chills 09/17/2017 Respiratory No cough Gastrointestinal No abdominal pain 09/17/2017 Constitutional No fever 08/06/2017 Constitutional No fatigue 08/06/2017 Ears/Nose/Throat/Neck otalgia 08/06/2017 Musculoskeletal No myalgias 08/06/2017 Respiratory No cough 08/2017 Respiratory No chest tightness 08/06/2017 Respiratory No chest congestion 08/06/2017 Gastrointestinal No abdominal pain 08/06/2017 Gastrointestinal No constipation 08/06/2017 Gastrointestinal No diarrhea 08/06/2017 Gastrointestinal No nausea 08/06/2017 Gastrointestinal No vomiting 08/06/2017 Constitutional anorexia 08/06/2017 Gastrointestinal No hemorrhoids 04/01/2017 Gastrointestinal No hepatitis 04/01/2017 Gastrointestinal No abdominal pain 04/01/2017 Gastrointestinal No constipation 04/01/2017 Gastrointestinal No diarrhea 04/01/2017 Gastrointestinal No gastroesophageal reflu x 04/01/2017 Gastrointestinal No melena 04/01/2017 Gastrointestinal No nausea 04/01/2017 Gastrointestinal No vomiting 04/01/2017 Neurologic No dizziness 04/01/2017 Neurologic No headache 0 04/01/2017 Neurologic No neck pain 04/01/2017 Neurologic No syncope Constitutional No fever 03/01/2017 Constitutional malaise 0 03/01/2017 Constitutional anorexia 03/01/2017 Constitutional fatigue 0 03/01/2017 Gastrointestinal constipation 03/01/2017 Gastrointestinal anorexia 03/01/2017 Gastrointestinal vomiting 03/01/2017 Genitourinary/Nephrology flank pain 03/01/2017 Gastrointestinal No hemorrhoids 11/10/2016 Gastrointestinal No hepatitis 11/10/2016 Gastrointestinal No abdominal pain 11/10/2016 Gastrointestinal constipation 11/10/2016 Gastrointestinal No diarrhea 11/10/2016 Gastrointestinal No gastroesophageal reflu x 11/10/2016 Gastrointestinal No melena 11/10/2016 Gastrointestinal No nausea 11/10/2016 Gastrointestinal No vomiting 11/10/2016 Ears/Nose/Throat/Neck No hearing loss 11/10/2016 Ears/Nose/Throat/Neck No nasal discharge 11/10/2016 Ears/Nose/Throat/Neck No sinus congestion 11/10/2016 Ears/Nose/Throat/Neck No sore throat 11/10/2016 Constitutional No night sweats 11/10/2016 Constitutional No fatigue 11/10/2016 Constitutional fever 03/2017 Constitutional No insomnia 11/10/2016 Constitutional No weight loss 11/10/2016 Gastrointestinal No hemorrhoids 08/13/2016 Gastrointestinal No hepatitis 08/13/2016 Gastrointestinal No abdominal pain 08/13/2016 Gastrointestinal No constipation 08/13/2016 Gastrointestinal No diarrhea 08/13/2016 Gastrointestinal No gastroesophageal reflu x 08/13/2016 Gastrointestinal No melena 08/13/2016 Gastrointestinal No nausea 08/13/2016 Gastrointestinal No vomiting 08/13/2016 Constitutional No night sweats 08/13/2016 Constitutional No fatigue 08/13/2016 Constitutional No fever 08/13/2016 Constitutional No insomnia 08/13/2016 Constitutional No weight loss 08/13/2016 Constitutional No night sweats 03/27/2016 Constitutional No recent illness 03/27/2016 Constitutional No fatigue 03/27/2016 Constitutional No fever 03/27/2016 Constitutional No insomnia 03/27/2016 Constitutional No weight loss 03/27/2016 Ears/Nose/Throat/Neck No hearing loss 03/27/2016 Ears/Nose/Throat/Neck No nasal discharge 03/27/2016 Ears/Nose/Throat/Neck No sinus congestion 03/27/2016 Ears/Nose/Throat/Neck No sore throat 03/27/2016 Cardiovascular No arrhythmia 03/27/2016 Cardiovascular No chest pain/pressure 03/27/2016 Cardiovascular No edema 03/27/2016 Cardiovascular No exercise intolerance 03/27/2016 Cardiovascular No orthopnea 03/27/2016 Cardiovascular No palpitations 03/27/2016 Respiratory No asthma Respiratory No cough Respiratory No dyspnea 0 03/27/2016 Respiratory No pleuritic pain 03/27/2016 Respiratory No productive sputum 03/27/2016 Respiratory No wheezing 03/27/2016 Gastrointestinal No hemorrhoids 03/27/2016 Gastrointestinal No hepatitis 03/27/2016 Gastrointestinal No abdominal pain 03/27/2016 Gastrointestinal No constipation 03/27/2016 Gastrointestinal No diarrhea 03/27/2016 Gastrointestinal No gastroesophageal reflu x 03/27/2016 Gastrointestinal No melena 03/27/2016 Gastrointestinal No nausea 03/27/2016 Gastrointestinal No vomiting 03/27/2016 Dermatologic rash 2015 Dermatologic No scar Psychiatric No anxiety 0 03/27/2016 Psychiatric No depression 03/27/2016 Constitutional No night sweats 03/19/2016 Constitutional No recent illness 03/19/2016 Constitutional No fatigue 03/19/2016 Constitutional No fever 03/19/2016 Constitutional No insomnia 03/19/2016 Constitutional No weight loss 03/19/2016 Respiratory No asthma Respiratory No cough Respiratory No dyspnea 0 03/19/2016 Respiratory No pleuritic pain 03/19/2016 Respiratory No productive sputum 03/19/2016 Respiratory No wheezing 03/19/2016 Ears/Nose/Throat/Neck No hearing loss 03/19/2016 Ears/Nose/Throat/Neck No nasal discharge 03/19/2016 Ears/Nose/Throat/Neck No sinus congestion 03/19/2016 Ears/Nose/Throat/Neck No sore throat 03/19/2016 Gastrointestinal No abdominal pain 03/19/2016 Gastrointestinal constipation 03/19/2016 Gastrointestinal No diarrhea 03/19/2016 Gastrointestinal No gastroesophageal reflu x 03/19/2016 Gastrointestinal No melena 03/19/2016 Gastrointestinal No nausea 03/19/2016 Gastrointestinal No vomiting 03/19/2016 Genitourinary/Nephrology dysuria 03/19/2016 Genitourinary/Nephrology No nocturia 03/19/2016 Genitourinary/Nephrology urinary ret ention/hesitancy 03/19/2016 Neurologic seizure 03/19 Hematologic/Lymphatic No abnormal ec chymoses 03/19/2016 Hematologic/Lymphatic No petechiae 03/19/2016 Hematologic/Lymphatic No abnormal bl eeding and bruising 03/19/2016 Hematologic/Lymphatic No anemia 03/19/2016 Hematologic/Lymphatic No lymph node enlargement/mass 03/19/2016 Ears/Nose/Throat/Neck sinus congestion 03/02/2016 Genitourinary/Nephrology No dysuria 03/02/2016 Genitourinary/Nephrology No nocturia 03/02/2016 Genitourinary/Nephrology No urinary incontinence 03/02/2016 Neurologic No dizziness 03/02/2016 Neurologic No headache 0 03/02/2016 Neurologic No neck pain 03/02/2016 Neurologic No syncope Constitutional anorexia 02/24/2016 Constitutional fatigue 0 02/24/2016 Constitutional No fever 02/24/2016 Eyes No eye erythema Eyes No eye discharge Ears/Nose/Throat/Neck No headache 02/24/2016 Ears/Nose/Throat/Neck No nasal discharge 02/24/2016 Ears/Nose/Throat/Neck No otorrhea 02/24/2016 Ears/Nose/Throat/Neck No postnasal drip 02/24/2016 Ears/Nose/Throat/Neck No sinus congestion 02/24/2016 Ears/Nose/Throat/Neck No sore throat 02/24/2016 Respiratory No chest congestion 02/24/2016 Respiratory No cough Respiratory No dyspnea 0 02/24/2016 Respiratory No wheezing 02/24/2016 Gastrointestinal No abdominal pain 02/24/2016 Gastrointestinal No gas and bloating 02/24/2016 Gastrointestinal No constipation 02/24/2016 Gastrointestinal No diarrhea 02/24/2016 Gastrointestinal No nausea 02/24/2016 Gastrointestinal No vomiting 02/24/2016 Dermatologic No rash Genitourinary/Nephrology dysuria 02/24/2016 Genitourinary/Nephrology No hematuria 02/24/2016 Genitourinary/Nephrology No urinary urgenc y 02/24/2016 Genitourinary/Nephrology No urinary frequency 02/24/2016 Neurologic seizure 02/23 Cardiovascular No arrhythmia 12/16/2015 Cardiovascular No chest pain/pressure 12/16/2015 Cardiovascular No edema 12/16/2015 Cardiovascular No exercise intolerance 12/16/2015 Cardiovascular No orthopnea 12/16/2015 Cardiovascular No palpitations 12/16/2015 Gastrointestinal gastroesophageal reflux 12/16/2015 Respiratory No asthma Respiratory No cough Respiratory No dyspnea 0 12/16/2015 Respiratory No pleuritic pain 12/16/2015 Respiratory No productive sputum 12/16/2015 Respiratory No wheezing 12/16/2015 Ears/Nose/Throat/Neck otalgia 12/16/2015 Ears/Nose/Throat/Neck No hearing loss 11/12/2015 Ears/Nose/Throat/Neck No nasal discharge 11/12/2015 Ears/Nose/Throat/Neck sinus congestion 11/12/2015 Ears/Nose/Throat/Neck No sore throat 11/12/2015 Gastrointestinal No hemorrhoids 11/12/2015 Gastrointestinal No hepatitis 11/12/2015 Gastrointestinal No abdominal pain 11/12/2015 Gastrointestinal No constipation 11/12/2015 Gastrointestinal No diarrhea 11/12/2015 Gastrointestinal No gastroesophageal reflu x 11/12/2015 Gastrointestinal No melena 11/12/2015 Gastrointestinal No nausea 11/12/2015 Gastrointestinal No vomiting 11/12/2015 Constitutional fatigue 0 11/12/2015 Ears/Nose/Throat/Neck sinusitis 11/12/2015 Respiratory No asthma Respiratory No cough 04/2016 Respiratory No dyspnea 0 11/12/2015 Respiratory No pleuritic pain 11/12/2015 Respiratory No productive sputum 11/12/2015 Respiratory No wheezing 11/12/2015 Neurologic headache 11/02 Constitutional No night sweats 10/16/2015 Constitutional No recent illness 10/16/2015 Constitutional No fatigue 10/16/2015 Constitutional No fever 10/16/2015 Constitutional No insomnia 10/16/2015 Constitutional No weight loss 10/16/2015 Constitutional fussiness 10/16/2015 Eyes No eye discharge Eyes No eye erythema Ears/Nose/Throat/Neck nasal discharge 10/16/2015 Ears/Nose/Throat/Neck nasal allergies 10/16/2015 Ears/Nose/Throat/Neck otalgia 10/16/2015 Ears/Nose/Throat/Neck postnasal drip 10/16/2015 Ears/Nose/Throat/Neck No otorrhea 10/16/2015 Ears/Nose/Throat/Neck sinus congestion 10/16/2015 Respiratory No chest congestion 10/16/2015 Respiratory No chest tightness 10/16/2015 Respiratory No cough Respiratory No dyspnea 0 10/16/2015 Respiratory No wheezing 10/16/2015 Gastrointestinal abdominal pain 10/16/2015 Gastrointestinal No constipation 10/16/2015 Gastrointestinal No diarrhea 10/16/2015 Gastrointestinal nausea 10/16/2015 Gastrointestinal gastroesophageal reflux 10/16/2015 Gastrointestinal vomiting 10/16/2015 Constitutional No night sweats 09/23/2015 Constitutional No fatigue 09/23/2015 Constitutional No fever 09/23/2015 Constitutional No insomnia 09/23/2015 Constitutional No weight loss 09/23/2015 Gastrointestinal No hemorrhoids 09/23/2015 Gastrointestinal No hepatitis 09/23/2015 Gastrointestinal abdominal pain 09/23/2015 Gastrointestinal No constipation 09/23/2015 Gastrointestinal No diarrhea 09/23/2015 Gastrointestinal No gastroesophageal reflu x 09/23/2015 Gastrointestinal No melena 09/23/2015 Gastrointestinal No nausea 09/23/2015 Gastrointestinal No vomiting 09/23/2015 Ears/Nose/Throat/Neck No hearing loss 09/23/2015 Ears/Nose/Throat/Neck No nasal discharge 09/23/2015 Ears/Nose/Throat/Neck No sinus congestion 09/23/2015 Ears/Nose/Throat/Neck No sore throat 09/23/2015 Constitutional No night sweats 09/20/2015 Constitutional No recent illness 09/20/2015 Constitutional fatigue 0 09/20/2015 Constitutional No fever 09/20/2015 Constitutional No insomnia 09/20/2015 Constitutional No weight loss 09/20/2015 Constitutional fussiness 09/20/2015 Eyes No eye pain 016 Eyes No photophobia 09/02 Eyes No vision change Eyes No visual disturbance 09/20/2015 Ears/Nose/Throat/Neck nasal discharge 09/20/2015 Ears/Nose/Throat/Neck No sinus congestion 09/20/2015 Ears/Nose/Throat/Neck No sore throat 09/20/2015 Ears/Nose/Throat/Neck nasal allergies 09/20/2015 Ears/Nose/Throat/Neck otalgia 09/20/2015 Ears/Nose/Throat/Neck No otorrhea 09/20/2015 Cardiovascular No arrhythmia 09/20/2015 Cardiovascular No chest pain/pressure 09/20/2015 Cardiovascular No edema 09/20/2015 Cardiovascular No exercise intolerance 09/20/2015 Cardiovascular No orthopnea 09/20/2015 Cardiovascular No palpitations 09/20/2015 Respiratory No asthma Respiratory No cough Respiratory No dyspnea 0 09/20/2015 Respiratory No pleuritic pain 09/20/2015 Respiratory No productive sputum 09/20/2015 Respiratory No wheezing 09/20/2015 Gastrointestinal constipation 09/20/2015 Gastrointestinal No diarrhea 09/20/2015 Gastrointestinal nausea 09/20/2015 Genitourinary/Nephrology No dysuria 09/20/2015 Genitourinary/Nephrology No nocturia 09/20/2015 Genitourinary/Nephrology No urinary incontinence 09/20/2015 Dermatologic No rash Dermatologic No scar Constitutional fever 02/2016 Constitutional No fussiness 09/10/2015 Ears/Nose/Throat/Neck sinus congestion 09/10/2015 Ears/Nose/Throat/Neck otalgia 09/10/2015 Ears/Nose/Throat/Neck nasal discharge 09/10/2015 Respiratory No cough 02/2016 Cardiovascular No arrhythmia 08/21/2015 Cardiovascular No chest pain/pressure 08/21/2015 Cardiovascular No edema 08/21/2015 Cardiovascular No exercise intolerance 08/21/2015 Cardiovascular No orthopnea 08/21/2015 Cardiovascular No palpitations 08/21/2015 Respiratory No asthma Respiratory No cough Respiratory No dyspnea 0 08/21/2015 Respiratory No pleuritic pain 08/21/2015 Respiratory No productive sputum 08/21/2015 Respiratory No wheezing 08/21/2015 Gastrointestinal No hemorrhoids 08/21/2015 Gastrointestinal No hepatitis 08/21/2015 Gastrointestinal No abdominal pain 08/21/2015 Gastrointestinal No constipation 08/21/2015 Gastrointestinal No diarrhea 08/21/2015 Gastrointestinal gastroesophageal reflux 08/21/2015 Gastrointestinal No melena 08/21/2015 Gastrointestinal No nausea 08/21/2015 Gastrointestinal vomiting 08/21/2015 Genitourinary/Nephrology No dysuria 08/21/2015 Genitourinary/Nephrology No nocturia 08/21/2015 Genitourinary/Nephrology No urinary incontinence 08/21/2015 Musculoskeletal No muscle weakness 08/21/2015 Musculoskeletal No myalgias 08/21/2015 Musculoskeletal No stiffness 08/21/2015 Musculoskeletal No swelling 08/21/2015 Dermatologic No rash Dermatologic No scar Neurologic No dizziness 08/21/2015 Neurologic No headache 0 08/21/2015 Neurologic No neck pain 08/21/2015 Neurologic No syncope Psychiatric No anxiety 0 08/21/2015 Psychiatric No depression 08/21/2015 Endocrine No goiter 08/05 Endocrine No hyperglycemia 08/21/2015 Endocrine No hypoglycemia 08/21/2015 Ears/Nose/Throat/Neck No hearing loss 08/21/2015 Ears/Nose/Throat/Neck No nasal discharge 08/21/2015 Ears/Nose/Throat/Neck No sinus congestion 08/21/2015 Ears/Nose/Throat/Neck No sore throat 08/21/2015 Constitutional No night sweats 08/21/2015 Constitutional No fatigue 08/21/2015 Constitutional No fever 08/21/2015 Constitutional No insomnia 08/21/2015 Constitutional No weight loss 08/21/2015 Psychiatric disturbances of consciousness 08/21/2015 Psychiatric disturbances of thinking 08/21/2015 Neurologic gait abnormality 08/21/2015 Gastrointestinal dyspepsia 08/21/2015 Neurologic seizure 08/21 Neurologic mental status change 08/21/2015 Physical Exam Exam Name System Name It em Name Status Result Effective Dates Notes Full Exam - General Constitutional general appearance Evidence of Distress: agitated 11/25/2018 None Full Exam - General Eyes conjunctiva/eyelids Overall: conjunctiva clear 11/25/2018 None Full Exam - General Eyes conjunctiva/eyelids Overall: cornea clear 11/25/2018 None Full Exam - General Eyes conjunctiva/eyelids Overall: eyelids normal 11/25/2018 None Full Exam - General Eyes pupils and irises Overall: pupils equal, round, reacti ve to light and accomodation 11/25/2018 None Full Exam - General Ears/Nose/Throat otoscopic exam Right tympanic membrane: perforated 11/25/2018 chronic Full Exam - General Ears/Nose/Throat otoscopic exam Left tympanic membrane: a normal exam 11/25/2018 None Full Exam - General Neck inspection of neck Overall: normal size 11/25/2018 None Full Exam - General Neck inspection of neck Overall: normal appearance 11/25/2018 None Full Exam - General Respiratory auscultation Overall: breath sounds clear bilater ally 11/25/2018 None Full Exam - General Respiratory respiratory effort/rhythm Overall: no retractions 11/25/2018 None Full Exam - General Respiratory respiratory effort/rhythm Overall: normal rate 11/25/2018 None Full Exam - General Cardiovascular auscultation of heart Overall: regular rate 11/25/2018 None Full Exam - General Cardiovascular auscultation of heart Overall: normal heart sounds 11/25/2018 None Full Exam - General Abdomen abdominal exam Overall: no tenderness 11/25/2018 None Full Exam - General Abdomen abdominal exam Overall: soft 11/25/2018 None Full Exam - General Abdomen abdominal exam Overall: no masses 11/25/2018 None Full Exam - General Abdomen abdominal exam Overall: normal bowel sounds 11/25/2018 None Full Exam - General Lymphatic neck nodes Overall: anterior cervical chain isabel ign 11/25/2018 None Full Exam - General Lymphatic neck nodes Overall: posterior cervical chain be nign 11/25/2018 None Full Exam - General Musculoskeletal head and neck Overall: head atraumatic 11/25/2018 None Full Exam - General Musculoskeletal head and neck Overall: cervical spine benign 11/25/2018 None Full Exam - General Musculoskeletal gait and station Gait: abnormal stride length 11/25/2018 None Full Exam - General Musculoskeletal gait and station Gait: abnormal stance 11/25/2018 None Full Exam - General Integument inspection of skin Overall: no rash, lesions 11/25/2018 None Full Exam - General Neurologic mental status Overall: alert 9 None Full Exam - General Psychiatric mood and affect Mood: irritable 11/25/2018 None Full Exam - General Respiratory respiratory effort/rhythm Overall: no retractions 06/13/2018 None Full Exam - General Respiratory respiratory effort/rhythm Overall: normal rate 06/13/2018 None Full Exam - General Respiratory auscultation Overall: breath sounds clear bilater ally 06/13/2018 None Full Exam - General Cardiovascular auscultation of heart Overall: regular rate 06/13/2018 None Full Exam - General Cardiovascular auscultation of heart Overall: no murmurs 06/13/2018 None Full Exam - General Constitutional general appearance Overall: well nourished 06/13/2018 None Full Exam - General Ears/Nose/Throat otoscopic exam Left tympanic membrane: effusion 06/13/2018 None Full Exam - General Ears/Nose/Throat otoscopic exam Left tympanic membrane: erythematous 06/13/2018 None Full Exam - General Ears/Nose/Throat otoscopic exam Left tympanic membrane: air- fluid level 06/13/2018 None Full Exam - General Lymphatic neck nodes Overall: anterior cervical chain isabel ign 06/13/2018 None Full Exam - General Lymphatic neck nodes Overall: posterior cervical chain be nign 06/13/2018 None Full Exam - General Constitutional general appearance Assistive Device: wheelchair 06/13/2018 None Full Exam - General Ears/Nose/Throat otoscopic exam Right tympanic membrane: effusion 06/13/2018 None Full Exam - General Constitutional general appearance Overall: well nourished 01/04/2018 None Full Exam - General Constitutional general appearance Overall: in no acute distress 01/04/2018 None Full Exam - General Cardiovascular auscultation of heart Overall: regular rate 01/04/2018 None Full Exam - General Cardiovascular auscultation of heart Overall: no murmurs 01/04/2018 None Full Exam - General Respiratory respiratory effort/rhythm Overall: no retractions 01/04/2018 None Full Exam - General Respiratory respiratory effort/rhythm Overall: normal rate 01/04/2018 None Full Exam - General Respiratory auscultation Overall: breath sounds clear bilater ally 01/04/2018 None Full Exam - General Ears/Nose/Throat otoscopic exam Left tympanic membrane: a normal exam 01/04/2018 None Full Exam - General Abdomen abdominal exam Overall: no tenderness 01/04/2018 None Full Exam - General Abdomen abdominal exam Overall: soft 01/04/2018 None Full Exam - General Abdomen abdominal exam Overall: no masses 01/04/2018 None Full Exam - General Abdomen abdominal exam Overall: normal bowel sounds 01/04/2018 None Full Exam - General Ears/Nose/Throat otoscopic exam Right tympanic membrane: a normal exam 01/04/2018 with no TM. normal for patient Full Exam - General Neurologic mental status Overall: alert 8 None Full Exam - General Neurologic mental status Overall: oriented 01/04/2018 None Full Exam - General Constitutional general appearance Overall: well nourished 12/31/2017 None Full Exam - General Respiratory percussion Overall: benign percussion 12/31/2017 None Full Exam - General Respiratory respiratory effort/rhythm Overall: no retractions 12/31/2017 None Full Exam - General Respiratory respiratory effort/rhythm Overall: normal rate 12/31/2017 None Full Exam - General Respiratory auscultation Diffuse: bronchial 12/31/2017 None Full Exam - General Ears/Nose/Throat otoscopic exam Left tympanic membrane: air- fluid level 12/31/2017 None Full Exam - General Ears/Nose/Throat otoscopic exam Left tympanic membrane: erythematous 12/31/2017 None Full Exam - General Ears/Nose/Throat otoscopic exam Right tympanic membrane: not visualized 12/31/2017 collection of ear drops are present in ear canal Full Exam - General Cardiovascular auscultation of heart Overall: regular rate 12/31/2017 None Full Exam - General Cardiovascular auscultation of heart Overall: no murmurs 12/31/2017 None Full Exam - General Lymphatic neck nodes Overall: anterior cervical chain isabel ign 12/31/2017 None Full Exam - General Lymphatic neck nodes Overall: posterior cervical chain be nign 12/31/2017 None Full Exam - General Neurologic mental status Overall: alert 8 None Full Exam - General Neurologic mental status Overall: oriented 12/31/2017 None Full Exam - General Constitutional general appearance Stature/Body Habitus: short stature 12/14/2017 None Full Exam - General Constitutional general appearance Overall: well nourished 12/02/2017 None Full Exam - General Constitutional general appearance Overall: well developed 12/02/2017 None Full Exam - General Ears/Nose/Throat otoscopic exam Overall: external auditory canals clear 12/02/2017 None Full Exam - General Ears/Nose/Throat otoscopic exam Overall: tympanic membranes clear 12/02/2017 None Full Exam - General Ears/Nose/Throat internal nose Turbinates: pale 12/02/2017 None Full Exam - General Ears/Nose/Throat internal nose Turbinates: hypertrophy 12/02/2017 None Full Exam - General Ears/Nose/Throat internal nose Drainage: clear 12/02/2017 None Full Exam - General Ears/Nose/Throat oral cavity/pharynx/larynx Oropharynx: postnasal drainage 12/02/2017 None Full Exam - General Neck inspection of neck Overall: normal size 12/02/2017 None Full Exam - General Neck inspection of neck Overall: no masses 12/02/2017 None Full Exam - General Respiratory auscultation Overall: breath sounds clear bilater ally 12/02/2017 None Full Exam - General Cardiovascular auscultation of heart Overall: regular rate 12/02/2017 None Full Exam - General Cardiovascular auscultation of heart Overall: normal heart sounds 12/02/2017 None Full Exam - General Cardiovascular auscultation of heart Overall: no murmurs 12/02/2017 None Full Exam - General Neurologic mental status Overall: alert 8 None Full Exam - General Neurologic mental status Overall: oriented 12/02/2017 None Full Exam - General Psychiatric mood and affect Overall: normal mood and affect 12/02/2017 None Full Exam - General Constitutional general appearance Deformities: facial deformity 12/02/2017 None Full Exam - General Constitutional general appearance Overall: well nourished 10/12/2017 None Full Exam - General Constitutional general appearance Overall: in no acute distress 10/12/2017 None Full Exam - General Cardiovascular auscultation of heart Overall: regular rate 10/12/2017 None Full Exam - General Cardiovascular auscultation of heart Overall: no murmurs 10/12/2017 None Full Exam - General Respiratory respiratory effort/rhythm Overall: no retractions 10/12/2017 None Full Exam - General Respiratory respiratory effort/rhythm Overall: normal rate 10/12/2017 None Full Exam - General Respiratory auscultation Overall: breath sounds clear bilater ally 10/12/2017 None Full Exam - General Ears/Nose/Throat otoscopic exam Overall: external auditory canals clear 10/12/2017 None Full Exam - General Ears/Nose/Throat otoscopic exam Overall: tympanic membranes clear 10/12/2017 None Full Exam - General Neurologic mental status Overall: alert 8 None Full Exam - General Neurologic mental status Overall: oriented 10/12/2017 None Full Exam - General Respiratory percussion Overall: benign percussion 09/17/2017 None Full Exam - General Respiratory respiratory effort/rhythm Overall: no retractions 09/17/2017 None Full Exam - General Respiratory respiratory effort/rhythm Overall: normal rate 09/17/2017 None Full Exam - General Respiratory auscultation Overall: breath sounds clear bilater ally 09/17/2017 None Full Exam - General Constitutional general appearance Overall: well nourished 09/17/2017 None Full Exam - General Constitutional general appearance Overall: in no acute distress 09/17/2017 None Full Exam - General Ears/Nose/Throat otoscopic exam Left tympanic membrane: air- fluid level 09/17/2017 None Full Exam - General Ears/Nose/Throat otoscopic exam Left tympanic membrane: erythematous 09/17/2017 None Full Exam - General Ears/Nose/Throat otoscopic exam Left tympanic membrane: effusion 09/17/2017 None Full Exam - General Ears/Nose/Throat otoscopic exam Right tympanic membrane: a normal exam 09/17/2017 None Full Exam - General Cardiovascular auscultation of heart Overall: regular rate 09/17/2017 None Full Exam - General Cardiovascular auscultation of heart Overall: no murmurs 09/17/2017 None Full Exam - General Abdomen abdominal exam Overall: no tenderness 09/17/2017 None Full Exam - General Abdomen abdominal exam Overall: soft 09/17/2017 None Full Exam - General Abdomen abdominal exam Overall: no masses 09/17/2017 None Full Exam - General Abdomen abdominal exam Overall: normal bowel sounds 09/17/2017 None Full Exam - General Constitutional general appearance Overall: well nourished 08/06/2017 None Full Exam - General Constitutional general appearance Evidence of Distress: in acute distress 08/06/2017 pulling at ears randomly during exam. Full Exam - General Cardiovascular auscultation of heart Overall: regular rate 08/06/2017 None Full Exam - General Cardiovascular auscultation of heart Overall: no murmurs 08/06/2017 None Full Exam - General Respiratory respiratory effort/rhythm Overall: no retractions 08/06/2017 None Full Exam - General Respiratory respiratory effort/rhythm Overall: normal rate 08/06/2017 None Full Exam - General Respiratory auscultation Overall: breath sounds clear bilater ally 08/06/2017 None Full Exam - General Ears/Nose/Throat otoscopic exam Left tympanic membrane: erythematous 08/06/2017 None Full Exam - General Ears/Nose/Throat otoscopic exam Left tympanic membrane: bulging 08/06/2017 None Full Exam - General Ears/Nose/Throat otoscopic exam Left tympanic membrane: effusion 08/06/2017 None Full Exam - General Constitutional general appearance Assistive Device: wheelchair 04/01/2017 None Full Exam - General Constitutional general appearance Deformities: facial deformity 04/01/2017 None Full Exam - General Neurologic mental status Overall: alert 7 None Full Exam - General Psychiatric mood and affect Appropriateness: inappropriate emotional responses 04/01/2017 None Full Exam - General Abdomen abdominal exam Overall: no masses 04/01/2017 None Full Exam - General Abdomen abdominal exam Overall: no tenderness 04/01/2017 None Full Exam - General Abdomen abdominal exam Overall: normal bowel sounds 04/01/2017 None Full Exam - General Abdomen abdominal exam Overall: soft 04/01/2017 None Full Exam - General Ears/Nose/Throat otoscopic exam Overall: external auditory canals clear 04/01/2017 None Full Exam - General Ears/Nose/Throat otoscopic exam Overall: tympanic membranes clear 04/01/2017 None Full Exam - General Constitutional general appearance Stature/Body Habitus: short stature 03/01/2017 None Full Exam - General Constitutional general appearance Evidence of Distress: obtunded 03/01/2017 long standing decreased m ental capacity, difficult to evaluate level of distress. Full Exam - General Ears/Nose/Throat otoscopic exam Left external auditory canal: drainage 03/01/2017 has small puncture in outer canal (from tweezer per mom), some cerumen Full Exam - General Ears/Nose/Throat otoscopic exam Right external auditory canal: complete cerumen impaction 03/01/2017 None Full Exam - General Respiratory auscultation Overall: breath sounds clear bilater ally 03/01/2017 None Full Exam - General Cardiovascular auscultation of heart Overall: regular rate 03/01/2017 None Full Exam - General Cardiovascular auscultation of heart Overall: normal heart sounds 03/01/2017 None Full Exam - General Cardiovascular auscultation of heart Overall: no murmurs 03/01/2017 None Full Exam - General Abdomen abdominal exam Overall: no tenderness 03/01/2017 no obvious reaction to abdominal palpati on Full Exam - General Abdomen abdominal exam Overall: soft 03/01/2017 None Full Exam - General Abdomen abdominal exam Overall: no masses 03/01/2017 tube present midline Full Exam - General Abdomen abdominal exam Overall: normal bowel sounds 03/01/2017 None Full Exam - General Neurologic gait Conventional walking: ataxic rhythm 03/01/2017 None Full Exam - General Constitutional general appearance Overall: well nourished 11/10/2016 None Full Exam - General Constitutional general appearance Overall: well developed 11/10/2016 None Full Exam - General Constitutional general appearance Overall: in no acute distress 11/10/2016 None Full Exam - General Neurologic mental status Overall: alert 7 None Full Exam - General Neurologic mental status Overall: oriented 11/10/2016 None Full Exam - General Psychiatric mood and affect Overall: normal mood and affect 11/10/2016 None Full Exam - General Respiratory auscultation Overall: breath sounds clear bilater ally 11/10/2016 None Full Exam - General Cardiovascular auscultation of heart Overall: regular rate 11/10/2016 None Full Exam - General Cardiovascular auscultation of heart Overall: normal heart sounds 11/10/2016 None Full Exam - General Cardiovascular auscultation of heart Overall: no murmurs 11/10/2016 None Full Exam - General Ears/Nose/Throat otoscopic exam Overall: external auditory canals clear 11/10/2016 None Full Exam - General Ears/Nose/Throat otoscopic exam Left tympanic membrane: erythematous 11/10/2016 None Full Exam - General Ears/Nose/Throat otoscopic exam Right tympanic membrane: a normal exam 11/10/2016 None Full Exam - General Ears/Nose/Throat internal nose Overall: bilateral nasal cavities clear 11/10/2016 None Full Exam - General Ears/Nose/Throat oral cavity/pharynx/larynx Oropharynx: erythema 11/10/2016 None Full Exam - General Constitutional general appearance Overall: well nourished 08/13/2016 None Full Exam - General Constitutional general appearance Overall: in no acute distress 08/13/2016 None Full Exam - General Neurologic mental status Overall: alert 7 None Full Exam - General Neurologic mental status Overall: oriented 08/13/2016 None Full Exam - General Psychiatric mood and affect Overall: normal mood and affect 08/13/2016 None Full Exam - General Abdomen abdominal exam Overall: no masses 08/13/2016 None Full Exam - General Abdomen abdominal exam Overall: no tenderness 08/13/2016 None Full Exam - General Abdomen abdominal exam Overall: normal bowel sounds 08/13/2016 None Full Exam - General Abdomen abdominal exam Overall: soft 08/13/2016 None Full Exam - General Constitutional general appearance Overall: well nourished 03/27/2016 None Full Exam - General Constitutional general appearance Overall: well developed 03/27/2016 None Full Exam - General Constitutional general appearance Overall: in no acute distress 03/27/2016 None Full Exam - General Eyes conjunctiva/eyelids Overall: conjunctiva clear 03/27/2016 None Full Exam - General Eyes conjunctiva/eyelids Overall: eyelids normal 03/27/2016 None Full Exam - General Ears/Nose/Throat external ear Overall: normal appearance 03/27/2016 None Full Exam - General Ears/Nose/Throat external nose Overall: benign appearance 03/27/2016 None Full Exam - General Ears/Nose/Throat otoscopic exam Left tympanic membrane: a normal exam 03/27/2016 None Full Exam - General Ears/Nose/Throat otoscopic exam Right tympanic membrane: perforated 03/27/2016 None Full Exam - General Ears/Nose/Throat internal nose Overall: bilateral nasal cavities clear 03/27/2016 None Full Exam - General Ears/Nose/Throat internal nose Overall: no drainage 03/27/2016 None Full Exam - General Ears/Nose/Throat lips/teeth/gingiva Overall: benign lips 03/27/2016 None Full Exam - General Ears/Nose/Throat oral cavity/pharynx/larynx Overall: oral mucosa clear 03/27/2016 None Full Exam - General Respiratory auscultation Overall: breath sounds clear bilater ally 03/27/2016 None Full Exam - General Respiratory respiratory effort/rhythm Overall: no retractions 03/27/2016 None Full Exam - General Respiratory respiratory effort/rhythm Overall: normal rate 03/27/2016 None Full Exam - General Cardiovascular auscultation of heart Overall: regular rate 03/27/2016 None Full Exam - General Cardiovascular auscultation of heart Overall: normal heart sounds 03/27/2016 None Full Exam - General Abdomen abdominal exam Overall: no tenderness 03/27/2016 None Full Exam - General Abdomen abdominal exam Overall: normal bowel sounds 03/27/2016 None Full Exam - General Abdomen abdominal exam Overall: no masses 03/27/2016 None Full Exam - General Abdomen abdominal exam Overall: soft 03/27/2016 None Full Exam - General Lymphatic neck nodes Overall: anterior cervical chain isabel ign 03/27/2016 None Full Exam - General Lymphatic neck nodes Overall: posterior cervical chain be nign 03/27/2016 None Full Exam - General Integument inspection of skin Location abdomen 03/27/2016 faint, fine, erythematous papular like r alicia scattered to mid abdomen and mid to low back Full Exam - General Neurologic mental status Overall: alert 6 None Full Exam - General Neurologic mental status Overall: oriented 03/27/2016 None Full Exam - General Constitutional general appearance Overall: well nourished 03/23/2016 None Full Exam - General Constitutional general appearance Overall: well developed 03/23/2016 None Full Exam - General Constitutional general appearance Overall: in no acute distress 03/23/2016 None Full Exam - General Neurologic mental status Overall: alert 6 None Full Exam - General Psychiatric mood and affect Mood: normal 03/23/2016 much more like old self today Full Exam - General Respiratory auscultation Overall: breath sounds clear bilater ally 03/23/2016 None Full Exam - General Cardiovascular auscultation of heart Overall: regular rate 03/23/2016 None Full Exam - General Cardiovascular auscultation of heart Overall: normal heart sounds 03/23/2016 None Full Exam - General Constitutional general appearance Overall: well nourished 03/19/2016 None Full Exam - General Constitutional general appearance Overall: well developed 03/19/2016 None Full Exam - General Constitutional general appearance Overall: in no acute distress 03/19/2016 None Full Exam - General Eyes conjunctiva/eyelids Overall: conjunctiva clear 03/19/2016 None Full Exam - General Eyes conjunctiva/eyelids Overall: eyelids normal 03/19/2016 None Full Exam - General Ears/Nose/Throat external ear Overall: normal appearance 03/19/2016 None Full Exam - General Ears/Nose/Throat external nose Overall: benign appearance 03/19/2016 None Full Exam - General Ears/Nose/Throat lips/teeth/gingiva Overall: benign lips 03/19/2016 None Full Exam - General Ears/Nose/Throat lips/teeth/gingiva Overall: normal dentition 03/19/2016 None Full Exam - General Ears/Nose/Throat oral cavity/pharynx/larynx Overall: oral mucosa clear 03/19/2016 None Full Exam - General Respiratory auscultation Overall: breath sounds clear bilater ally 03/19/2016 None Full Exam - General Cardiovascular auscultation of heart Overall: regular rate 03/19/2016 None Full Exam - General Cardiovascular auscultation of heart Overall: normal heart sounds 03/19/2016 None Full Exam - General Abdomen abdominal exam Overall: no tenderness 03/19/2016 None Full Exam - General Abdomen abdominal exam Overall: soft 03/19/2016 None Full Exam - General Abdomen abdominal exam Overall: no masses 03/19/2016 None Full Exam - General Abdomen abdominal exam Overall: normal bowel sounds 03/19/2016 None Full Exam - General Lymphatic neck nodes Overall: anterior cervical chain isabel ign 03/19/2016 None Full Exam - General Lymphatic neck nodes Overall: posterior cervical chain be nign 03/19/2016 None Full Exam - General Constitutional general appearance Overall: well nourished 03/02/2016 None Full Exam - General Constitutional general appearance Overall: well developed 03/02/2016 None Full Exam - General Constitutional general appearance Overall: in no acute distress 03/02/2016 None Full Exam - General Neurologic mental status Overall: alert 6 None Full Exam - General Neurologic mental status Overall: oriented 03/02/2016 None Full Exam - General Psychiatric mood and affect Overall: normal mood and affect 03/02/2016 None Full Exam - General Respiratory auscultation Overall: breath sounds clear bilater ally 03/02/2016 None Full Exam - General Cardiovascular auscultation of heart Overall: regular rate 03/02/2016 None Full Exam - General Cardiovascular auscultation of heart Overall: normal heart sounds 03/02/2016 None Full Exam - General Cardiovascular auscultation of heart S3 (ventricular gallop): present 03/02/2016 None Full Exam - General Cardiovascular auscultation of heart Murmur: previously known murmur unchanged 03/02/2016 None Full Exam - General Cardiovascular extremities Overall: no clubbing 03/02/2016 None Full Exam - General Cardiovascular extremities Overall: No edema 03/02/2016 None Full Exam - General Cardiovascular extremities Overall: No cyanosis 03/02/2016 None Full Exam - General Neck inspection of neck Overall: normal size 03/02/2016 None Full Exam - General Neck inspection of neck Overall: no masses 03/02/2016 None Full Exam - General Ears/Nose/Throat otoscopic exam Overall: external auditory canals clear 03/02/2016 None Full Exam - General Ears/Nose/Throat otoscopic exam Overall: tympanic membranes clear 03/02/2016 None Full Exam - General Ears/Nose/Throat internal nose Overall: bilateral nasal cavities clear 03/02/2016 None Full Exam - General Ears/Nose/Throat oral cavity/pharynx/larynx Overall: oral mucosa clear 03/02/2016 None Full Exam - General Abdomen abdominal exam Overall: no masses 03/02/2016 None Full Exam - General Abdomen abdominal exam Overall: no tenderness 03/02/2016 None Full Exam - General Abdomen abdominal exam Overall: normal bowel sounds 03/02/2016 None Full Exam - General Abdomen abdominal exam Overall: soft 03/02/2016 None Full Exam - General Constitutional general appearance Overall: well nourished 02/24/2016 None Full Exam - General Constitutional general appearance Overall: well developed 02/24/2016 None Full Exam - General Constitutional general appearance Overall: in no acute distress 02/24/2016 None Full Exam - General Eyes conjunctiva/eyelids Overall: conjunctiva clear 02/24/2016 None Full Exam - General Eyes conjunctiva/eyelids Overall: eyelids normal 02/24/2016 None Full Exam - General Ears/Nose/Throat external ear Overall: normal appearance 02/24/2016 None Full Exam - General Ears/Nose/Throat external nose Overall: benign appearance 02/24/2016 None Full Exam - General Ears/Nose/Throat otoscopic exam Left external auditory canal: a normal exam 02/24/2016 None Full Exam - General Ears/Nose/Throat otoscopic exam Right external auditory canal: a normal exam 02/24/2016 None Full Exam - General Ears/Nose/Throat otoscopic exam Left tympanic membrane: a normal exam 02/24/2016 possible very mild erythema Full Exam - General Ears/Nose/Throat otoscopic exam Right tympanic membrane: perforated 02/24/2016 None Full Exam - General Ears/Nose/Throat otoscopic exam Otorrhea: absent 02/24/2016 None Full Exam - General Ears/Nose/Throat otoscopic exam Perforation: right 02/24/2016 None Full Exam - General Ears/Nose/Throat internal nose Overall: bilateral nasal cavities clear 02/24/2016 None Full Exam - General Ears/Nose/Throat internal nose Overall: no drainage 02/24/2016 None Full Exam - General Ears/Nose/Throat lips/teeth/gingiva Overall: benign lips 02/24/2016 None Full Exam - General Ears/Nose/Throat lips/teeth/gingiva Overall: normal dentition 02/24/2016 None Full Exam - General Ears/Nose/Throat oral cavity/pharynx/larynx Overall: oral mucosa clear 02/24/2016 None Full Exam - General Respiratory auscultation Overall: breath sounds clear bilater ally 02/24/2016 None Full Exam - General Respiratory respiratory effort/rhythm Overall: no retractions 02/24/2016 None Full Exam - General Respiratory respiratory effort/rhythm Overall: normal rate 02/24/2016 None Full Exam - General Cardiovascular auscultation of heart Overall: regular rate 02/24/2016 None Full Exam - General Cardiovascular auscultation of heart Overall: normal heart sounds 02/24/2016 None Full Exam - General Abdomen abdominal exam Overall: soft 02/24/2016 guarding with palpation, tenses up, seem s uncomfortable Full Exam - General Abdomen abdominal exam Overall: normal bowel sounds 02/24/2016 None Full Exam - General Lymphatic neck nodes Overall: anterior cervical chain isabel ign 02/24/2016 None Full Exam - General Lymphatic neck nodes Overall: posterior cervical chain be nign 02/24/2016 None Full Exam - General Integument inspection of skin Overall: no rash, lesions 02/24/2016 None Full Exam - General Constitutional general appearance Overall: well nourished 12/16/2015 None Full Exam - General Constitutional general appearance Overall: in no acute distress 12/16/2015 None Full Exam - General Neurologic mental status Overall: alert 6 None Full Exam - General Psychiatric mood and affect Appropriateness: inappropriate emotional responses 12/16/2015 None Full Exam - General Ears/Nose/Throat otoscopic exam Overall: external auditory canals clear 12/16/2015 None Full Exam - General Ears/Nose/Throat otoscopic exam Right tympanic membrane: erythematous 12/16/2015 None Full Exam - General Ears/Nose/Throat otoscopic exam Right tympanic membrane: perforated 12/16/2015 None Full Exam - General Ears/Nose/Throat otoscopic exam Right tympanic membrane: loss of landmarks 12/16/2015 None Full Exam - General Ears/Nose/Throat otoscopic exam Left tympanic membrane: a normal exam 12/16/2015 None Full Exam - General Ears/Nose/Throat internal nose Turbinates: hypertrophy 12/16/2015 None Full Exam - General Ears/Nose/Throat oral cavity/pharynx/larynx Overall: oral mucosa clear 12/16/2015 None Full Exam - General Respiratory auscultation Overall: breath sounds clear bilater ally 12/16/2015 None Full Exam - General Cardiovascular auscultation of heart Overall: regular rate 12/16/2015 None Full Exam - General Cardiovascular auscultation of heart Overall: normal heart sounds 12/16/2015 None Full Exam - General Cardiovascular auscultation of heart Overall: no murmurs 12/16/2015 None Full Exam - General Constitutional general appearance Overall: well developed 12/16/2015 None Full Exam - General Constitutional general appearance Deformities: facial deformity 12/16/2015 None Full Exam - General Constitutional general appearance Deformities: limb deformity 12/16/2015 None Full Exam - General Constitutional general appearance Overall: well nourished 11/12/2015 None Full Exam - General Constitutional general appearance Overall: well developed 11/12/2015 None Full Exam - General Constitutional general appearance Overall: in no acute distress 11/12/2015 None Full Exam - General Ears/Nose/Throat otoscopic exam Overall: external auditory canals clear 11/12/2015 None Full Exam - General Ears/Nose/Throat otoscopic exam Left tympanic membrane: air- fluid level 11/12/2015 None Full Exam - General Ears/Nose/Throat otoscopic exam Right tympanic membrane: air- fluid level 11/12/2015 None Full Exam - General Ears/Nose/Throat internal nose Turbinates: erythema 11/12/2015 None Full Exam - General Ears/Nose/Throat internal nose Turbinates: hypertrophy 11/12/2015 None Full Exam - General Ears/Nose/Throat internal nose Drainage: cloudy 11/12/2015 None Full Exam - General Ears/Nose/Throat oral cavity/pharynx/larynx Oropharynx: postnasal drainage 11/12/2015 None Full Exam - General Neck inspection of neck Overall: normal size 11/12/2015 None Full Exam - General Neck inspection of neck Overall: no masses 11/12/2015 None Full Exam - General Respiratory auscultation Overall: breath sounds clear bilater ally 11/12/2015 None Full Exam - General Cardiovascular auscultation of heart Overall: regular rate 11/12/2015 None Full Exam - General Cardiovascular auscultation of heart Overall: normal heart sounds 11/12/2015 None Full Exam - General Cardiovascular auscultation of heart Overall: no murmurs 11/12/2015 None Full Exam - General Lymphatic neck nodes Left anterior cervical chain: shotty 11/12/2015 None Full Exam - General Lymphatic neck nodes Left anterior cervical chain: tender 11/12/2015 None Full Exam - General Lymphatic neck nodes Right anterior cervical chain: shott y 11/12/2015 None Full Exam - General Lymphatic neck nodes Right anterior cervical chain: tende r 11/12/2015 None Full Exam - General Neurologic mental status Overall: alert 6 None Full Exam - General Neurologic mental status Overall: oriented 11/12/2015 None Full Exam - General Psychiatric mood and affect Overall: normal mood and affect 11/12/2015 None Full Exam - General Constitutional general appearance Overall: well nourished 10/16/2015 None Full Exam - General Constitutional general appearance Overall: well developed 10/16/2015 None Full Exam - General Constitutional general appearance Overall: in no acute distress 10/16/2015 None Full Exam - General Eyes conjunctiva/eyelids Overall: conjunctiva clear 10/16/2015 None Full Exam - General Eyes conjunctiva/eyelids Overall: eyelids normal 10/16/2015 None Full Exam - General Ears/Nose/Throat external ear Overall: normal appearance 10/16/2015 None Full Exam - General Ears/Nose/Throat external nose Overall: benign appearance 10/16/2015 None Full Exam - General Ears/Nose/Throat otoscopic exam Overall: external auditory canals clear 10/16/2015 None Full Exam - General Ears/Nose/Throat otoscopic exam Left tympanic membrane: erythematous 10/16/2015 None Full Exam - General Ears/Nose/Throat otoscopic exam Right tympanic membrane: erythematous 10/16/2015 None Full Exam - General Ears/Nose/Throat otoscopic exam Right tympanic membrane: perforated 10/16/2015 None Full Exam - General Ears/Nose/Throat otoscopic exam Otorrhea: absent 10/16/2015 None Full Exam - General Ears/Nose/Throat internal nose Left nasal cavity: mucosal edema 10/16/2015 None Full Exam - General Ears/Nose/Throat internal nose Right nasal cavity: mucosal edema 10/16/2015 None Full Exam - General Ears/Nose/Throat lips/teeth/gingiva Overall: benign lips 10/16/2015 None Full Exam - General Ears/Nose/Throat oral cavity/pharynx/larynx Overall: oral mucosa clear 10/16/2015 None Full Exam - General Ears/Nose/Throat oral cavity/pharynx/larynx Overall: oropharyngeal mucosa clear 10/16/2015 None Full Exam - General Respiratory auscultation Overall: breath sounds clear bilater ally 10/16/2015 None Full Exam - General Respiratory respiratory effort/rhythm Overall: normal rate 10/16/2015 None Full Exam - General Respiratory respiratory effort/rhythm Overall: no retractions 10/16/2015 None Full Exam - General Cardiovascular auscultation of heart Overall: regular rate 10/16/2015 None Full Exam - General Cardiovascular auscultation of heart Overall: normal heart sounds 10/16/2015 None Full Exam - General Abdomen abdominal exam Overall: soft 10/16/2015 None Full Exam - General Abdomen abdominal exam Overall: no masses 10/16/2015 None Full Exam - General Abdomen abdominal exam Overall: normal bowel sounds 10/16/2015 None Full Exam - General Abdomen abdominal exam Epigastric: tender to palpation 10/16/2015 generalized tenderness to upper abdominal region Full Exam - General Lymphatic neck nodes Overall: anterior cervical chain isabel ign 10/16/2015 None Full Exam - General Lymphatic neck nodes Overall: posterior cervical chain be nign 10/16/2015 None Full Exam - General Integument inspection of skin Overall: no rash, lesions 10/16/2015 None Full Exam - General Neurologic mental status Overall: alert 6 None Full Exam - General Neurologic mental status Overall: oriented 10/16/2015 None Full Exam - General Constitutional general appearance Overall: well nourished 09/23/2015 None Full Exam - General Constitutional general appearance Overall: well developed 09/23/2015 None Full Exam - General Constitutional general appearance Evidence of Distress: in distress secondary to pain 09/23/2015 whe palpate abdomen Full Exam - General Ears/Nose/Throat otoscopic exam Overall: external auditory canals clear 09/23/2015 None Full Exam - General Ears/Nose/Throat otoscopic exam Overall: tympanic membranes clear 09/23/2015 None Full Exam - General Abdomen abdominal exam Overall: no masses 09/23/2015 None Full Exam - General Abdomen abdominal exam Overall: normal bowel sounds 09/23/2015 None Full Exam - General Abdomen abdominal exam Overall: soft 09/23/2015 None Full Exam - General Abdomen abdominal exam Epigastric: tender to palpation 09/23/2015 None Full Exam - General Abdomen abdominal exam Left upper quadrant: tender to palpa tion 09/23/2015 None Full Exam - General Abdomen abdominal exam Right upper quadrant: tender to palp ation 09/23/2015 None Full Exam - General Psychiatric mood and affect Mood: irritable 09/23/2015 when abdomen palpated Full Exam - General Constitutional general appearance Overall: well nourished 09/20/2015 None Full Exam - General Constitutional general appearance Overall: well developed 09/20/2015 None Full Exam - General Constitutional general appearance Overall: in no acute distress 09/20/2015 None Full Exam - General Eyes conjunctiva/eyelids Overall: conjunctiva clear 09/20/2015 None Full Exam - General Eyes conjunctiva/eyelids Overall: eyelids normal 09/20/2015 None Full Exam - General Eyes pupils and irises Overall: pupils equal, round, reacti ve to light and accomodation 09/20/2015 None Full Exam - General Ears/Nose/Throat external ear Overall: normal appearance 09/20/2015 None Full Exam - General Ears/Nose/Throat external nose Overall: benign appearance 09/20/2015 None Full Exam - General Ears/Nose/Throat otoscopic exam Overall: external auditory canals clear 09/20/2015 None Full Exam - General Ears/Nose/Throat otoscopic exam Left tympanic membrane: a normal exam 09/20/2015 None Full Exam - General Ears/Nose/Throat otoscopic exam Right tympanic membrane: perforated 09/20/2015 None Full Exam - General Ears/Nose/Throat otoscopic exam Right tympanic membrane: erythematous 09/20/2015 None Full Exam - General Ears/Nose/Throat otoscopic exam Otorrhea: absent 09/20/2015 None Full Exam - General Ears/Nose/Throat internal nose Overall: bilateral nasal cavities clear 09/20/2015 None Full Exam - General Ears/Nose/Throat lips/teeth/gingiva Overall: benign lips 09/20/2015 None Full Exam - General Ears/Nose/Throat oral cavity/pharynx/larynx Overall: oral mucosa clear 09/20/2015 None Full Exam - General Ears/Nose/Throat oral cavity/pharynx/larynx Overall: oropharyngeal mucosa clear 09/20/2015 None Full Exam - General Respiratory auscultation Overall: breath sounds clear bilater ally 09/20/2015 None Full Exam - General Respiratory respiratory effort/rhythm Overall: normal rate 09/20/2015 None Full Exam - General Respiratory respiratory effort/rhythm Overall: no retractions 09/20/2015 None Full Exam - General Cardiovascular auscultation of heart Overall: regular rate 09/20/2015 None Full Exam - General Cardiovascular auscultation of heart Overall: normal heart sounds 09/20/2015 None Full Exam - General Cardiovascular auscultation of heart Overall: no murmurs 09/20/2015 None Full Exam - General Abdomen abdominal exam Overall: no tenderness 09/20/2015 None Full Exam - General Abdomen abdominal exam Overall: no masses 09/20/2015 None Full Exam - General Abdomen abdominal exam Overall: normal bowel sounds 09/20/2015 None Full Exam - General Abdomen abdominal exam Contour: rounded 016 slightly distended and firm Full Exam - General Lymphatic neck nodes Overall: anterior cervical chain isabel ign 09/20/2015 None Full Exam - General Lymphatic neck nodes Overall: posterior cervical chain be nign 09/20/2015 None Full Exam - General Integument inspection of skin Overall: no rash, lesions 09/20/2015 None Full Exam - General Neurologic mental status Overall: alert 6 None Full Exam - General Neurologic mental status Overall: oriented 09/20/2015 None Full Exam - General Respiratory auscultation Overall: breath sounds clear bilater ally 09/10/2015 None Full Exam - General Ears/Nose/Throat otoscopic exam Right tympanic membrane: perforated 09/10/2015 history of tubes; Full Exam - General Ears/Nose/Throat otoscopic exam Left tympanic membrane: air- fluid level 09/10/2015 None Full Exam - General Constitutional general appearance Overall: well nourished 09/10/2015 None Full Exam - General Constitutional general appearance Overall: in no acute distress 09/10/2015 None Full Exam - General Ears/Nose/Throat oral cavity/pharynx/larynx Oropharynx: erythema 09/10/2015 None Full Exam - General Ears/Nose/Throat oral cavity/pharynx/larynx Oropharynx: postnasal drainage 09/10/2015 None Full Exam - General Psychiatric orientation/consciousness Level of consciousness: alert 09/10/2015 None Full Exam - General Cardiovascular auscultation of heart Murmur: previously known murmur unchanged 09/10/2015 None Full Exam - General Cardiovascular auscultation of heart Overall: regular rate 09/10/2015 None Full Exam - General Constitutional general appearance Deformities: facial deformity 09/10/2015 None Full Exam - General Constitutional general appearance Deformities: limb deformity 09/10/2015 None Full Exam - General Constitutional general appearance Deformities: truncal deformity 09/10/2015 None Full Exam - General Neurologic gait Heel walking: abnormal 0 09/10/2015 None Full Exam - General Neurologic gait Conventional walking: spastic hemipa resis 09/10/2015 None Full Exam - General Constitutional general appearance Deformities: facial deformity 08/21/2015 None Full Exam - General Constitutional general appearance Deformities: truncal deformity 08/21/2015 None Full Exam - General Abdomen abdominal exam Overall: no masses 08/21/2015 None Full Exam - General Abdomen abdominal exam Overall: normal bowel sounds 08/21/2015 None Full Exam - General Abdomen abdominal exam Overall: soft 08/21/2015 None Full Exam - General Respiratory auscultation Overall: breath sounds clear bilater ally 08/21/2015 None Full Exam - General Cardiovascular auscultation of heart Overall: regular rate 08/21/2015 None Full Exam - General Cardiovascular auscultation of heart Overall: normal heart sounds 08/21/2015 None Full Exam - General Neck inspection of neck Overall: normal size 08/21/2015 None Full Exam - General Neck inspection of neck Overall: no masses 08/21/2015 None Full Exam - General Cardiovascular extremities Overall: no clubbing 08/21/2015 None Full Exam - General Cardiovascular extremities Overall: No edema 08/21/2015 None Full Exam - General Cardiovascular extremities Overall: No cyanosis 08/21/2015 None Full Exam - General Neurologic mental status Overall: alert 6 None Full Exam - General Neurologic mental status Overall: oriented 08/21/2015 None Full Exam - General Psychiatric mood and affect Overall: normal mood and affect 08/21/2015 None Full Exam - General Musculoskeletal gait and station Gait: asymmetric 08/21/2015 None Full Exam - General Musculoskeletal gait and station Gait: abnormal stride length 08/21/2015 None Full Exam - General Musculoskeletal gait and station Gait: abnormal heel strike 08/21/2015 None Full Exam - General Musculoskeletal gait and station Gait: abnormal stance 08/21/2015 None Full Exam - General Musculoskeletal gait and station Gait: abnormal toe off 08/21/2015 None Full Exam - General Musculoskeletal gait and station Gait: abnormal swing through 08/21/2015 None Full Exam - General Musculoskeletal gait and station Gait: unable to turn quickly 08/21/2015 None Full Exam - General Ears/Nose/Throat otoscopic exam Overall: external auditory canals clear 08/21/2015 None Full Exam - General Ears/Nose/Throat otoscopic exam Overall: tympanic membranes clear 08/21/2015 None Full Exam - General Ears/Nose/Throat internal nose Overall: bilateral nasal cavities clear 08/21/2015 None Full Exam - General Ears/Nose/Throat oral cavity/pharynx/larynx Overall: oral mucosa clear 08/21/2015 None Procedures Procedure Codes Date CEFTRIAXONE SODIUM I NJECTION CPT-4: J0696 03/19/2016 THER/PROPH/DIAG INJ SC/IM CPT-4: 16168 03/19/2016 DEXAMETHASONE SODIUM PHOS CPT-4: J1100 11/12/2015 THER/PROPH/DIAG INJ SC/IM CPT-4: 08595 11/12/2015 CEFTRIAXONE SODIUM I NJECTION CPT-4: J0696 09/20/2015 THER/PROPH/DIAG INJ SC/IM CPT-4: 86200 09/20/2015 THER/PROPH/DIAG INJ SC/IM CPT-4: 97005 09/10/2015 METHYLPREDNISOLONE 4 0 MG INJ CPT-4: J1030 09/10/2015 TRIAMCINOLONE ACET I NJ NOS CPT-4: J3301 09/10/2015 Vital Signs Date Vital 11/25/2018 Blood Pressure 1: 132/82 Code: 8480-6 Heart Rate 1: 124 bpm Temperature: 37.0 (C) / 98.6 (F) Weight: 91 lbs 06/13/2018 Blood Pressure 1: 104/70 Code: 8480-6 Heart Rate 1: 84 bpm Respiratory Rate: 20 bpm SpO2: 92% Temperature: 36.6 (C ) / 97.8 (F) Weight: 94 lbs 01/04/2018 Blood Pressure 1: 100/66 Code: 8480-6 Heart Rate 1: 88 bpm Respiratory Rate: 24 bpm SpO2: 98% Temperature: 36.6 (C ) / 97.9 (F) 12/31/2017 Blood Pressure 1: 96/48 Code: 8480-6 Heart Rate 1: 96 bpm Respiratory Rate: 22 bpm SpO2: 97% Temperature: 36.4 (C ) / 97.6 (F) Weight: 95 lbs 12/14/2017 Blood Pressure 1: 124/74 Code: 8480-6 Heart Rate 1: 126 bpm Temperature: 36.8 (C) / 98.3 (F) Weight: 98 lbs 12/02/2017 Blood Pressure 1: 146/92 Code: 8480-6 Heart Rate 1: 126 bpm Temperature: 36.8 (C) / 98.3 (F) Weight: 95 lbs 10/12/2017 Heart Rate 1: 92 bpm Temperature: 36.7 (C ) / 98.1 (F) Weight: 95 lbs 09/17/2017 Blood Pressure 1: 114/68 Code: 8480-6 Heart Rate 1: 104 bpm Temperature: 36.7 (C) / 98.0 (F) 08/06/2017 Blood Pressure 1: 122/88 Code: 8480-6 Heart Rate 1: 84 bpm Respiratory Rate: 24 bpm SpO2: 96% Temperature: 36.6 (C ) / 97.8 (F) Weight: 94 lbs 04/01/2017 Blood Pressure 1: 92/60 Code: 8480-6 Heart Rate 1: 92 bpm Temperature: 37.0 (C) / 98.6 (F) Weight: 90 lbs 03/01/2017 Blood Pressure 1: 114/72 Code: 8480-6 Heart Rate 1: 92 bpm Temperature: 36.8 (C) / 98.2 (F) Weight: 88 lbs 11/10/2016 Blood Pressure 1: 124/78 Code: 8480-6 Heart Rate 1: 100 bpm Height: Respiratory Rate: 20 bpm SpO2: 95% Temperature: 36.9 (C ) / 98.4 (F) Weight: 86 lbs 08/13/2016 Blood Pressure 1: 114/68 Code: 8480-6 Heart Rate 1: 72 bpm SpO2: 99% Temperature: 36.9 (C ) / 98.4 (F) Weight: 86 lbs 03/27/2016 Heart Rate 1: 86 bpm Respiratory Rate: 24 bpm Temperature: 36.4 (C ) / 97.6 (F) Weight: 92 lbs 03/23/2016 Blood Pressure 1: 124/70 Code: 8480-6 Heart Rate 1: 100 bpm Height: Respiratory Rate: 20 bpm Temperature: 37.0 (C ) / 98.6 (F) Weight: 03/19/2016 Heart Rate 1: 84 bpm Height: Respiratory Rate: 20 bpm SpO2: 97% Temperature: 36.4 (C) / 97.6 (F) Weight: 03/02/2016 Blood Pressure 1: 102/78 Code: 8480-6 Heart Rate 1: 98 bpm Height: Respiratory Rate: 24 bpm SpO2: 98% Temperature: 35.9 (C ) / 96.7 (F) Weight: 02/24/2016 Blood Pressure 1: 114/78 Code: 8480-6 Heart Rate 1: 88 bpm Respiratory Rate: 22 bpm SpO2: 94% Temperature: 35.9 (C ) / 96.7 (F) Weight: 12/16/2015 Blood Pressure 1: 116/68 Code: 8480-6 Heart Rate 1: 88 bpm Respiratory Rate: 20 bpm Temperature: 36.7 (C) / 98.1 (F) Weight: 89 lbs 11/12/2015 Blood Pressure 1: 106/64 Code: 8480-6 Heart Rate 1: 84 bpm Respiratory Rate: 24 bpm SpO2: 96% Temperature: 35.9 (C ) / 96.7 (F) Weight: 94 lbs 10/16/2015 Heart Rate 1: 92 bpm Respiratory Rate: 22 bpm SpO2: 97% Temperature: 36.4 (C ) / 97.6 (F) Weight: 90 lbs 09/23/2015 Blood Pressure 1: 114/70 Code: 8480-6 Heart Rate 1: 76 bpm Respiratory Rate: 20 bpm Temperature: 36.6 (C) / 97.8 (F) Weight: 102 lbs 09/20/2015 Heart Rate 1: 92 bpm Height: Respiratory Rate: 22 bpm SpO2: 99% Temperature: 35.8 (C) / 96.4 (F) Weight: 102 lbs 09/10/2015 Heart Rate 1: 88 bpm Height: Respiratory Rate: 24 bpm Temperature: 36.3 (C ) / 97.4 (F) Weight: 08/21/2015 Blood Pressure 1: 114/70 Code: 8480-6 BMI: 23.1 Code: 77513-9 Heart Rate 1: 80 bpm Height: 4'6" Respiratory Rate: 20 bpm Temperature: 36.5 (C ) / 97.7 (F) Weight: 96 lbs Functional Status No Functional Status data History of Present Illness Symptom Name Status Resu lt Effective Date Notes Quality acute 11/25/2018 None seizure Quality chronic 12/14/2017 None well woman exam (18-39 years) Lifestyle no history of physical abuse 12/14/2017 None well woman exam (18-39 years) Lifestyle no history of sexual abuse 12/14/2017 None well woman exam (18-39 years) Lifestyle no history of verbal abuse 12/14/2017 None well woman exam (18-39 years) Lifestyle regular seatbelt use 12/14/2017 None well woman exam (18-39 years) Lifestyle abnormal amount of stress 12/14/2017 None well woman exam (18-39 years) Lifestyle normal sleep patterns 12/14/2017 None well woman exam (18-39 years) Nutrit ion and Exercise overweight 12/14/2017 No ne well woman exam (18-39 years) Nutrit ion and Exercise balanced nutrition 12/14/2017 None well woman exam (18-39 years) Nutrit ion and Exercise minimal exercise 12/14/2017 None well woman exam (18-39 years) Sexual Activity is not sexually active 12/14/2017 None well woman exam (18-39 years) Reprod uctive System Development abnormal development 12/14/2017 None well woman exam (18-39 years) Health Guidance self-breast exam 12/14/2017 None nasal allergies Location in both nares 12/14/2017 None seizure Quality chronic 12/02/2017 Mother said has been having seizures the last 4 days nasal discharge Location in both nares 12/02/2017 None nasal discharge Quality clear 12/02/2017 None nasal discharge Quality thick 12/02/2017 None nasal discharge Onset and Resolution ongoing 12/02/2017 None otalgia Location on both sides 10/12/2017 None otalgia Quality acute 10/12/2017 None seizure Quality chronic 09/17/2017 None seizure Quality worsening 09/17/2017 None anorexia Quality acute 08/06/2017 None anorexia Quality loss of appetite for liquids 08/06/2017 None anorexia Quality loss of appetite for all foods 08/06/2017 None anorexia Onset and Resolution ongoing 08/06/2017 None otalgia Location on both sides 08/06/2017 None otalgia Quality acute 08/06/2017 None vomiting Quality chronic 04/01/2017 None vomiting Quality improvi ng 04/01/2017 Giving Pantoprazole 40mg BID dizziness Quality feelin gs of unsteadiness 04/01/2017 None dizziness Quality stagge ring 04/01/2017 None dizziness Quality improv ing. 04/01/2017 Mother said they are givi ng her meclizine 12.5mg BID routinely and doing well vomiting Onset and Resolution ongoing 03/01/2017 Mother says she does ok w hen just giving Jevity supplements vomiting Onset of Symptom 5 days ago 03/01/2017 None vomiting Quality bilious 03/01/2017 None vomiting Quality food pa rticles 03/01/2017 None otorrhea Location on the right 03/01/2017 None otorrhea Quality bloody 03/01/2017 None nasal discharge Location in both nares 11/10/2016 None nasal discharge Quality clear 11/10/2016 None nasal discharge Quality thin 11/10/2016 None nasal discharge Onset and Resolution ongoing 11/10/2016 None sore throat Location dif fusely 11/10/2016 None sore throat Quality inte rmittent 11/10/2016 None vomiting Onset and Resolution resolved 08/13/2016 None urinary retention/hesitancy Quality improving 08/13/2016 None rash Quality acute 03/27/2016 None rash Quality erythematous 03/27/2016 None rash Quality expanding 03/27/2016 None rash Quality dry 03/27/2016 None rash Quality Petichiae 03/27/2016 None rash Location-Extremities anterior thighs 03/27/2016 None rash Location-Major on t he chest 03/27/2016 None rash Location-Major on t he back 03/27/2016 None rash Color erythematous 03/27/2016 None rash Onset of Symptom 2- 3 days ago 03/27/2016 None dysuria Quality acute 03/23/2016 None constipation Quality hard 03/23/2016 None constipation Quality imp roving 03/23/2016 Had 4 bowel movements yes terday and the last stool was solid yesterday evening anxiety Quality agitation 03/23/2016 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 anxiety Quality worsening 03/23/2016 None seizure Quality acute 03/19/2016 None seizure Quality focal 03/19/2016 None seizure Onset and Resolution sudden in onset 03/19/2016 None seizure Onset of Symptom 3-4 days ago 03/19/2016 None urinary retention/hesitancy Quality acute 03/19/2016 None urinary retention/hesitancy Quality reduced force of stream 03/19/2016 None urinary retention/hesitancy Onset an d Resolution gradual in onset 03/19/2016 None urinary retention/hesitancy Onset of Symptom 3-4 days ago 03/19/2016 None urinary retention/hesitancy Quality acute 03/02/2016 None urinary retention/hesitancy Quality dribbling 03/02/2016 None urinary retention/hesitancy Quality hesitancy 03/02/2016 None sinus congestion Location on the right 03/02/2016 None sinus congestion Quality acute 03/02/2016 eye seems swollen seizure Quality chronic 02/24/2016 None seizure Quality worsening 02/24/2016 None urinary retention/hesitancy Quality acute 02/24/2016 None urinary retention/hesitancy Quality reduced force of stream 02/24/2016 None urinary retention/hesitancy Quality hesitancy 02/24/2016 None urinary retention/hesitancy Onset of Symptom 1 daysago 02/24/2016 Non e fatigue Quality acute 02/24/2016 None fatigue Quality worsening 02/24/2016 None fatigue Onset and Resolution ongoing 02/24/2016 None seizure Quality chronic 12/16/2015 None dyspepsia Quality burning 12/16/2015 None dyspepsia Quality chronic 12/16/2015 None dyspepsia Quality ulcer 12/16/2015 None seizure Onset of Symptom during childhood 12/16/2015 None seizure Quality multiple event 12/16/2015 None dyspepsia Onset and Resolution ongoing 12/16/2015 None sinus congestion Quality acute 11/12/2015 None sinus congestion Quality fullness 11/12/2015 None sinus congestion Quality pain 11/12/2015 None sinus congestion Quality pressure 11/12/2015 None sinus congestion Location on both sides 11/12/2015 None abdominal pain Location diffusely 11/12/2015 None abdominal pain Quality a cute 11/12/2015 None abdominal pain Onset and Resolution ongoing 11/12/2015 None abdominal pain Quality n on-verbal patient 11/12/2015 None otalgia Location on both sides 11/12/2015 None sinus pain Location diff usely 11/12/2015 None sinus pain Quality acute 11/12/2015 None abdominal pain Location diffusely 10/16/2015 Patient groans in pain lee ggesting her abdomen hurts otalgia Location on both sides 10/16/2015 pulling on ears otalgia Quality acute 10/16/2015 None otalgia Quality dull 10/16/2015 None otitis media Location on the right. 09/23/2015 Patient had rocephin inje ctions over the weekend and using ciprodex abdominal pain Quality n on-verbal patient 09/23/2015 None abdominal pain Quality g urgling 09/23/2015 None abdominal pain Location in the periumbilical area 09/23/2015 None abdominal pain Onset and Resolution ongoing 09/23/2015 None abdominal pain Location diffusely 09/20/2015 None abdominal pain Quality a cute 09/20/2015 None abdominal pain Quality p atient is nonverbal 09/20/2015 None otalgia Location on both sides 09/20/2015 None otalgia Quality acute 09/20/2015 None otalgia Quality pulling at ears 09/20/2015 None otalgia Onset and Resolution ongoing 09/20/2015 None otalgia Location on the left 09/10/2015 None otalgia Quality acute 09/10/2015 None otalgia Quality messing with ears 09/10/2015 None otalgia Onset and Resolution ongoing 09/10/2015 None otalgia Quality odor 09/10/2015 None seizure Quality chronic 08/21/2015 None seizure Onset and Resolution ongoing 08/21/2015 None seizure Onset of Symptom during childhood 08/21/2015 None seizure Frequency of Episodes 2 times a day 08/21/2015 unless sick seizure Triggers stress 08/21/2015 to body hematemesis Quality bloo d-streaking 08/21/2015 None hematemesis Quality inte rmittent 08/21/2015 None hematemesis Onset and Resolution ongoing 08/21/2015 None hematemesis Severity mod erate 08/21/2015 None seizure Significant Medications antiepileptic medications 08/21/2015 None seizure Severity severe 08/21/2015 None hematemesis Quality acute 08/21/2015 None hematemesis Onset of Symptom 4-5 days ago 08/21/2015 None developmental delay Severity severe 08/21/2015 None developmental delay Significant Medi [facility] Conditions seizure disorder 08/21/2015 None Advance Directives No Advance Directive data Encounters Encounter Performer Loca tion Codes Date ([id number]) OFFICE/OUTPA TIENT VISIT EST Diagnosis: Irritability and anger[ICD10: R45.4] Nataliia ARANGO DO [facility] CPT-4: 61916 11/25/2018 ([id number]) OFFICE/OUTPA TIENT VISIT EST Diagnosis: Acute suppurative otitis media without spontaneous rupture of ear drum, bilateral[ICD10: H66.003] Fatou ARANGO DO [facility] CPT-4: 26114 06/13/2018 ([id number]) OFFICE/OUTPA TIENT VISIT EST Diagnosis: Other fatigue[ICD10: R53.83] Diagnosis: Anuria and oliguria[ICD10: R34] Diagnosis: Acute gastritis without bleeding[ICD10: K29.00] Fatou GILBERT Muzui CPT-4: 11977 01/04/2018 ([id number]) OFFICE/OUTPA TIENT VISIT EST Diagnosis: Acute bronchitis, unspecified[ICD10: J20.9] Fatou GILBERT Muzui CPT-4: 53334 12/31/2017 ([id number]) PREV VISIT E ST AGE 18-39 Diagnosis: Encounter for general adult medical examination without abnormal findings[ICD10: Z00.00] Diagnosis: Severe intellectual disabilities[ICD10: F72] Diagnosis: Allergic rhinitis due to pollen[ICD10: J30.1] Diagnosis: Epilepsy, unspecified, intractable, without status epilepticus[ICD10: G40.919] Diagnosis: Gastro-esophageal reflux disease without esophagitis[ICD10: K21.9] Keily ARANGO M[facility] CPT-4: 27663 12/14/2017 ([id number]) OFFICE/OUTPA TIENT VISIT EST Diagnosis: Allergic rhinitis due to pollen[ICD10: J30.1] Diagnosis: Epilepsy, unspecified, intractable, without status epilepticus[ICD10: G40.919] Keily ARANGO Muzui CPT-4: 91473 12/02/2017 ([id number]) OFFICE/OUTPA TIENT VISIT EST Diagnosis: Other allergic rhinitis[ICD10: J30.89] Fatou GILBERT Muzui CPT-4: 66989 10/12/2017 OFFICE/OUTPATIENT SIT EST Diagnosis: Acute suppurative otitis media without spontaneous rupture of ear drum, recurrent, left ear[ICD10: H66.005] Diagnosis: Epilepsy, unspecified, intractable, without status epilepticus[ICD10: G40.919] Diagnosis: Hesitancy of micturition[ICD10: R39.11] Fatou CASTILLO [facility] CPT-4: 82773 09/17/2017 OFFICE/OUTPATIENT SIT EST Diagnosis: Otitis media, unspecified, left ear[ICD10: H66.92] Fatou CASTILLO [facility] CPT-4: 34050 08/06/2017 ([id number]) OFFICE/OUTPA TIENT VISIT EST Diagnosis: Vertigo of central origin, 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.49] Diagnosis: Dizziness and giddiness[ICD10: R42] Keily Conchita RIOSLINE Diamante [facility] CPT-4: 70795 04/01/2017 OFFICE/OUTPATIENT SIT EST Diagnosis: Vomiting, unspecified[ICD10: R11.10] Diagnosis: 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)[ICD10: K56.5] Diagnosis: Personal history of urinary calculi[ICD10: Z87.442] Emely Hdz KEILY Diamante [facility] CPT-4: 72868 03/01/2017 ([id number]) OFFICE/OUTPA TIENT VISIT EST Diagnosis: Allergic rhinitis due to pollen[ICD10: J30.1] Diagnosis: Acute and subacute allergic otitis media (mucoid) (sanguinous) (serous), left ear[ICD10: H65.112] Keily Pepeeros LINARES [facility] CPT-[facility]: 00535 11/10/2016 ([id number]) OFFICE/OUTPA TIENT VISIT EST Diagnosis: 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] Diagnosis: Unspecified ovarian cyst, right side[ICD10: N83.201] Diagnosis: Cyst of kidney, 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] Keily LINARES Diamante [facility] CPT-4: 95826 08/13/2016 ([id number]) OFFICE/OUTPA TIENT VISIT EST Diagnosis: Rash and other nonspecific skin eruption[ICD10: R21] Aziza LÓPEZSANNA Bobby [facility] CPT-4: 90428 03/27/2016 ([id number]) OFFICE/OUTPA TIENT VISIT EST Diagnosis: Urinary tract infection, site not specified[ICD10: N39.0] Keily Pepeeros LINARES ThorAlicia [facility]OS [facility] CPT-4: 46494 03/23/2016 ([id number]) OFFICE/OUTPA TIENT VISIT EST Diagnosis: Retention of urine, unspecified[ICD10: R33.9] Diagnosis: Dysuria[ICD10: R30.0] Diagnosis: Constipation, unspecified[ICD10: K59.00] Aziza Magallanes KEILY ARANGO [facility] CPT-4: 94541 03/19/2016 ([id number]) OFFICE/OUTPA TIENT VISIT EST Diagnosis: Acute sinusitis, unspecified[ICD10: J01.90] Keily Bobby PEPE EROS [facility] CPT-4: 60523 03/02/2016 OFFICE/OUTPATIENT SIT EST Diagnosis: Other fatigue[ICD10: R53.83] Diagnosis: Retention of urine, unspecified[ICD10: R33.9] Diagnosis: Dysuria[ICD10: R30.0] Diagnosis: Generalized abdominal pain[ICD10: R10.84] 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] Aziza Magallanes KEILY ARANGO [facility] CPT-4: 69773 02/24/2016 ([id number]) OFFICE/OUTPA TIENT VISIT EST Diagnosis: Chronic mucoid otitis media, right ear[ICD10: H65.31] Diagnosis: Allergic rhinitis, unspecified[ICD10: J30.9] Diagnosis: 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] Keily Bobby [facility] CPT-4: 99785 12/16/2015 ([id number]) OFFICE/OUTPA TIENT VISIT EST Diagnosis: Allergic rhinitis, unspecified[ICD10: J30.9] Diagnosis: Acute recurrent sinusitis, unspecified[ICD10: J01.91] Keily Bobby PEPE EROS [employer] [facility] CPT-4: 30406 11/12/2015 ([id number]) OFFICE/OUTPA TIENT VISIT EST Diagnosis: Other seasonal allergic rhinitis[ICD10: J30.2] Diagnosis: Nausea with vomiting, unspecified[ICD10: R11.2] Diagnosis: Epigastric pain[ICD10: R10.13] [facility]: 70918 10/16/2015 OFFICE/OUTPATIENT SIT EST Diagnosis: Encounter for follow-up examination after completed treatment for conditions other than malignant neoplasm[ICD10: Z09] Diagnosis: Generalized abdominal pain[ICD10: R10.84] Keily COONEY [employer] [facility] CPT-4: 70347 09/23/2015 ([id number]) OFFICE/OUTPA TIENT VISIT EST Diagnosis: Otitis media, unspecified, right ear[ICD10: H66.91] Diagnosis: Constipation, unspecified[ICD10: K59.00] Diagnosis: Allergic rhinitis, unspecified[ICD10: J30.9] [facility] CPT-[facility]: 46938 09/20/2015 OFFICE/OUTPATIENT SIT EST Diagnosis: Allergic rhinitis, unspecified[ICD10: J30.9] Diagnosis: Unspecified perforation of tympanic membrane, right ear[ICD10: H72.91] Bibiana CASTILLO [employer] [facility] CPT-4: 86154 09/10/2015 OFFICE/OUTPATIENT SIT NEW Diagnosis: Epilepsy, unspecified, intractable, without status epilepticus[ICD10: G40.919] Diagnosis: Gastric ulcer, unspecified as acute or chronic, without hemorrhage or perforation[ICD10: K25.9] Diagnosis: Severe intellectual disabilities[ICD10: F72] Keily COONEY [employer] [facility] CPT-4: 09445 08/21/2015 Plan of Care Planned Activity Notes C odes Status Date Visit Diagnosis Plan: Irritability and anger Discussion: Patient's mother and caregiver state she has been much more irritable over the past week. Usually her irritability indicates pain somewhere. Her UA was clear yesterday. Exam benign- ears and throat ok no pain with palpation of belly and lungs clear. Patient to proceed with labwork- CBC, CMP, ESR. Mother states understanding. ICD-9 : 799.22 ICD-10 : R45.4 11/25/2018 Appointment: Nataliia Hsieh [facility] [address] ACUTE ILLNESS 11/25/2018 Visit Diagnosis Plan: Acute suppurative otitis media without spontaneous rupture of ear drum, bilateral Discussion: cefdinir for 10 days. if worsening symptoms later this week, call clinic. push fluids and tylenol/ibuprofen prn pain or fever. ICD-9 : 382.00 ICD-10 : H66.003 06/13/2018 Appointment: Fatou Onofre [address] [place] [address] ACUTE ILLNESS 06/13/2018 Visit Diagnosis Plan: Anuria and oliguria Discussion: marcelinan sent to hospital for outpatient straight cath with C&S if indicated. will review initial urine and order additional treatments as needed. ICD-9 : 788.5 ICD-10 : R34 01/04/2018 Visit Diagnosis Plan: Acute gastritis without bleeding Discussion: see other plans. ICD-9 : 535.00 ICD-10 : K29.00 01/04/2018 Visit Diagnosis Plan: Other fatigue Discussion: congestion and ears improved since last visit. but see other plan. ICD-9 : 780.79 ICD-10 : R53.83 01/04/2018 Appointment: Fatou Onofre [address] [place] [address] ACUTE ILLNESS 01/04/2018 Patient Education: Patient Medication Summary Completed 01/04/2018 Visit Diagnosis Plan: Acute bronchitis, unspecified Discussion: zithromax prescribed to take as directed. continue with allergy meds including flonase to help dry congestion. call office next week if new or worsening symptoms. ICD-9 : 466.0 ICD-10 : J20.9 12/31/2017 Appointment: Fatou Onofre [address] [place] [address] ACUTE ILLNESS 12/31/2017 Patient Education: Patient Medication [...] 12/14/2017 Visit Diagnosis Plan: Encounter for [facility] adult medical examination without abnormal findings Discussion: Had recent lab done Follow Up: 3 months ICD-9 : V70.9 ICD-10 : Z00.00 12/14/2017 Appointment: Keily Arango WPtel: [address] [place] [address] CHECK UP 12/14/2017 Patient Education: Patient Medication [...] : J30.1 12/02/2017 Appointment: Keily Arango WPtel: [address] [place] [address] ACUTE ILLNESS 12/02/2017 Patient Education: Patient Medication Summary Completed 12/02/2017 Visit Diagnosis Plan: Other allergic rhinitis Discussion: symptoms most likely caused from allergies. patient sent to hospital for decadron injection. instructed to restart patient's flonase at home. if new or worsening symptoms, call or rtc. ICD-9 : 477.8 ICD-10 : J30.89 10/12/2017 Appointment: Fatou Onofre [address] [place] [address] ACUTE ILLNESS 10/12/2017 Patient Education: Patient Medication Summary Completed 10/12/2017 Visit Diagnosis Plan: Acute suppurative otitis media without spontaneous rupture of ear drum, recurrent, left ear Discussion: bactrim ds bid for 10 days to be given to cover for ear infection and uti. ICD-9 : 382.00 ICD-10 : H66.005 09/17/2017 Visit Diagnosis Plan: Hesitancy of micturition Discussion: bactrim ds bid for 10 days to [...] ICD-10 : G40.919 09/17/2017 Appointment: Fatou Onofre [address] [place] [address] ACUTE ILLNESS 09/17/2017 Patient Education: Patient Medication Summary Completed 09/17/2017 Visit Diagnosis Plan: Otitis media, unspecified, left ear Discussion: cefdinir prescribed daily for 10 days. instructed to administer tylenol/ibuprofen for pain or fever. if no improvement, or worsening symptoms, call or rtc. ICD-9 : 380.14 ICD-10 : H66.92 08/06/2017 Appointment: Fatou Onofre [address] [place] [address] ACUTE ILLNESS 08/06/2017 Patient Education: Patient Medication Summary Completed 08/06/2017 Patient Education: Patient Medication Summary Completed 08/02/2017 Patient Education: Patient Medication Summary Completed 04/21/2017 Care Plan: MRI BRAIN STEM W/O DYE Pending 04/21/2017 Patient Education: Patient Medication Summary Completed 04/20/2017 Care Plan: MRI BRAIN STEM W/O DYE Pending 04/20/2017 Visit Diagnosis Plan: Vertigo of central origin, unspecified ear Discussion: Continue meclizine at 12.5mg po BID for 2 more weeks then go to 12.5mg daily for 2 weeks then 6.25mg daily for 2 weeks then stop Notify if any symptoms return with weaning process ICD-9 : 386.2 ICD-10 : H81.49 04/01/2017 Appointment: Keily Arango tel: [address] [place] [address] FOLLOW UP 04/01/2017 Patient Education: Patient Medication Summary Completed 04/01/2017 Patient Education: Patient Medication Summary Completed 03/09/2017 Care Plan: CT HEAD/BRAIN W/O DYE LOINC : 80167-8 Pending 03/09/2017 Visit Plan: It's difficult to evalu ate this patient and level of distress. Sent to [facility] for labs: CBC, CMP, Amylase, Lipase, ESR, Cath UA CT of abdomen/pelvis w/wo contrast (IV), with oral If no abnormalities found, discussed to let us know if pain continues and vomiting continues or any change for the worse in condition. Has Zofran at home for nausea. Will await results to determine if additional medications indicated. 03/01/2017 Visit Plan: It's difficult to evalu ate this patient and level of distress. Sent to [...] determine if additional medications indicated. 03/01/2017 Appointment: Emley Hdz WPtel: [address] [place] [address] ACUTE ILLNESS 03/01/2017 Patient Education: Patient Medication Summary Completed 03/01/2017 Patient Education: Patient Medication Summary Completed 12/17/2016 Visit Diagnosis Plan: Allergic rhinitis due to pollen Discussion: Continue zyrtec/singulair ICD-9 : 477.9 ICD-10 : J30.1 11/10/2016 Visit Diagnosis Plan: Acute and subacute allergic otitis media (mucoid) (sanguinous) (serous), left ear Discussion: Zithromax ICD-9 : 381.05 ICD-10 : H65.112 11/10/2016 Appointment: Keily Arango WPtel: [facility] [address] ACUTE ILLNESS 11/10/2016 Patient Education: Patient Medication Summary Completed 11/10/2016 Patient Education: Patient Medication Summary Completed 09/07/2016 Care Plan: URINALYSIS AUTO W/O SCOPE LOINC : 31431-4 Pending 09/07/2016 Visit Diagnosis Plan: Cyst of kidney, acquired Discussion: Renal US in 6mos to assess stability ICD-9 : 753.10 ICD-10 : N28.1 08/13/2016 Visit Diagnosis Plan: Calculus of kidney Discussion: Finish cipro Finish flomax Will observe for now since pain is resolved ICD-9 : 592.0 ICD-10 : N20.0 08/13/2016 Visit Diagnosis Plan: Unspecified ovarian cyst, right side Discussion: Pain resolved so will only get pelvic US if pain or vomiting return ICD-9 : 620.2 ICD-10 : N83.201 08/13/2016 Appointment: Keily Arango WPtel: [phone] [id number] 08/12 confirmed-sp FOLLOW UP 08/13/2016 Patient Education: Patient Medication Summary Completed 08/13/2016 Patient Education: Patient Medication Summary Completed 05/19/2016 Care Plan: X-RAY EXAM OF FOOT left foot LOINC : 12196-1 Pending 05/19/2016 Visit Plan: Discussed with Dr Burton gilbert CBC to be drawn Order sent to Will call with results 03/27/2016 Visit Plan: Discussed with Dr Burton gilbert CBC to be drawn Order sent to Will call with results 03/27/2016 Appointment: Aziza Magallanes [address] ACUTE ILLNESS 03/27/2016 Patient Education: Patient Medication Summary Completed 03/27/2016 Visit Plan: Go for dose of rocephin 1gm IM today and tomorrow then done Diflucan 150mg x1 today Discussed with mom via phone about urology fwup--she will talk with her and let us know 03/23/2016 Appointment: Keily Arango WPtel: [address] [place], [place] [phone] 03/23 confirmed ~sl FOLLOW UP 03/23/2016 Patient Education: Patient Medication Summary Completed 03/23/2016 Visit Plan: Per karen Brizuela for UA and culture today Ok to have a standing order for further UA needs at for straight cath Rocephin IM today and daily through Wednesday Mom has arranged a family friend that is an ROPE LAY[employer] MACHINE OPERATOR to give Wednesday and Sundays injections - rxs for rocephin and lido sent to [facility] and [facility] cannot order the lido in the qty patient needs) Dr Arango wants patient to be re-evaluated on Wednesday in clinic Referral to Urology for recurrent UTIs and urinary retention - mom wants to research who she wants her sent to and let us know 03/19/2016 Visit Plan: Per karen Brizuela t cath for UA and culture today Ok to have a standing order for further UA needs at [facility] for straight cath Rocephin IM today and daily through Wednesday Mom has arranged a family friend that is an ROPE LAYING MACHINE OPERATOR to give Wednesday and Sundays injections - rxs for rocephin and lido sent to [facility] cannot order the lido in the qty patient needs) Dr Arango wants patient to be re-evaluated on Wednesday in clinic Referral to Urology for recurrent UTIs and urinary retention - mom wants to research who she wants her sent to and let us know 03/19/2016 Visit Plan: Per karen Brizuela cath for UA and culture today Ok to have a standing order for further UA needs at for straight cath Rocephin IM today and daily through Wednesday Mom has arranged a family friend that is an ROPE LAYING MACHINE OPERATOR to give Wednesday and Sundays injections [...] us know 03/19/2016 [phone] [facility] [facility] 03/19/2016 Patient Education: Patient Medication Summary Completed 03/19/2016 Visit Plan: 1 more week of cefdinir 03/02/2016 Appointment: Keily Arango WPtel: [address] [place], [place] [id number] 03/02 confirmed~sl WORK IN 03/02/2016 Patient Education: Patient Medication Summary Completed 03/02/2016 Visit Plan: Mom reports after discu ssion of patient seeming uncomfortable with abdominal exam, [...] but will need seen if worsening 02/24/2016 Visit Plan: Mom reports after discu ssion of patient seeming uncomfortable with abdominal exam, that she has a history of eating objects - nail clippers, brisa needles, etc Will get CXR and abdominal/KUB Straight cath, cbc and cmp All ordered stat so hopefully can call mom back today with results 02/24/2016 [facility]: [facility] [facility] [facility] 02/24/2016 Patient Education: Patient Medication Summary Completed 02/24/2016 Care Plan: CHEST X-RAY 2VW FRONTAL&LATL LOINC : 24097-4 Pending 02/24/2016 Care Plan: X-RAY EXAM OF ABDOMEN LOINC : 21818-2 Pending 02/24/2016 Visit Plan: Repeat zithromax x1 wee k Ciprodex to right ear x1 week Add Pepcid q HS x2-4 weeks for total histamine blockade and for extra stomach protection while on zithromax 12/16/2015 Appointment: Keily Arango WPtel: [address] [place], [place] [id number] 6/9 lm~sl 6/10 lm ~sl FOLLOW UP 12/16/2015 Patient Education: Patient Medication Summary Completed 12/16/2015 Patient Education: [facility] - Saving AutoInj - Sertraline HCL - 18-64 - Dynamic Portal ID Completed 12/16/2015 Visit Plan: Saline nasal flushes pr n. Tylenol/Motrin prn headache. Notify if persists/symptoms worsens Dexamethasone given 11/12/2015 Visit Plan: Saline nasal flushes pr n. Tylenol/Motrin prn headache. Notify if persists/symptoms worsens Dexamethasone given 11/12/2015 Appointment: Keily Arango WPtel: [phone] [facility] [place] 5/9 lm~sl 5/10 lm~sl 5/10 confirm-sp FOLLOW UP 11/12/2015 Patient Education: Patient Medication Summary Completed 11/12/2015 Visit Plan: Lengthy visit Trial sin gulair in addition to zyrtec and flonase If [...] arrange updated office visits for Belkys 10/16/2015 Visit Plan: Lengthy visit Trial sin gulair in addition to zyrtec and flonase If [...] for Belkys 10/16/2015 Appointment: Aziza Magallanes [address] [facility] ACUTE ILLNESS 10/16/2015 Patient Education: Patient Medication Summary Completed 10/16/2015 Appointment: Aziza Magallanes [address] [facility] [place] canceled, feeling better CANCELED 10/03/2015 Visit Plan: No further abx needed G o back to [facility] for next 3 days and restart carafate Notify if abdominal pain worsens 09/23/2015 Appointment: Keily Arango WPtel: [phone] [facility] 09/19 confirmed-sp FOLLOW UP 09/23/2015 Patient Education: Patient Medication Summary Completed 09/23/2015 Visit Plan: Mom would prefer IM ant ibiotic so the oral doesn't affect her stomach. She reports Dr Salgado has treated with rocephin IM x 3 days and Belkys has done well with that. Will get 1st dose of rocephin he re - orders written for [facility] to given Rocephin tomorrow and Wednesday. Mom would prefer to get rx for that to be done at home since her is a Dr and that is what they have done in the past. [facility] Recheck in [...] the past to try for now. 09/20/2015 Visit Plan: Mom would prefer IM ant ibiotic so the oral doesn't affect her stomach. She reports Dr Salgado has treated with rocephin IM x 3 days and Belkys has done well with that. Will get 1st dose of rocephin he re - orders written for [facility] to given Rocephin tomorrow and Wednesday. Mom would prefer to get rx for that to be done at home since her is a Dr and that is what they have done in the past. Order sent to [facility] since [facility] does not have in stock. Recheck in [...] try for now. 09/20/2015 [facility] [facility] [facility] 09/20/2015 Patient Education: Patient Medication Summary Completed 09/20/2015 Visit Plan: Depo Medrol 40mg/ Kenal og 40 mg IM today Resume Ciprodex otic gtts. bid to Rt. ear 09/10/2015 Visit Plan: Depo Medrol 40mg/ Kenal og 40 mg IM today Resume Ciprodex otic gtts. bid to Rt. ear 09/10/2015 Visit Plan: Depo Medrol 40mg/ Kenal og 40 mg IM today Resume Ciprodex otic gtts. bid to Rt. ear 09/10/2015 Appointment: Bibiana Garg [facility] [phone] [facility] 09/08 confirmed-sp ACUTE ILLNESS 09/10/2015 Patient Education: Patient Medication Summary Completed 09/10/2015 Visit Plan: Increase Protonix to 40 mg po BID for 1month Continue carafate at q AC dosing for full month then wean off Jevity for 2 more days then advance diet if able Continue current meds 08/21/2015 Appointment: [facility] [phone] [facility] [facility] 08/21/2015 Patient Education: Patient Medication Summary Completed 08/21/2015 Instructions Comment . Repeat zithromax x 1 week Ciprodex to right ear x1 week Add Pepcid q HS x2-4 weeks for total histamine blockade and for extra stomach protection while on zithromax . Saline nasal flush es prn. Tylenol/Motrin prn headache. Notify if persists/symptoms worsens Dexamethasone given . Saline nasal flush es prn. Tylenol/Motrin prn headache. Notify if persists/symptoms worsens Dexamethasone given . Discussed with Dr Aragno CBC to be drawn Order sent to Will call with results . Discussed with Dr Arango CBC to be drawn Order sent to Will call with results . It's difficult to evaluate this patient and level of distress. Sent to [facility] for labs: CBC, CMP, Amylase, Lipase, ESR, Cath UA CT of abdomen/pelvis w/wo contrast (IV), with oral If no abnormalities found, discussed to let us know if pain continues and vomiting continues or any change for the worse in condition. Has Zofran at home for nausea. Will await results to determine if additional medications indicated. . It's difficult to evaluate this patient and level of distress. Sent to for labs: CBC, CMP, Amylase, Lipase, ESR, Cath UA CT of abdomen/pelvis w/wo contrast (IV), with oral If no abnormalities found, discussed to let us know if pain continues and vomiting continues or any change for the worse in condition. Has Zofran at home for nausea. Will await results to determine if additional medications indicated. . Increase Protonix to 40mg po BID for 1month Continue carafate at q AC dosing for full month then wean off Jevity for 2 more days then advance diet if able Continue current meds . Depo Medrol 40mg/ Kenalog 40 mg IM today Resume Ciprodex otic gtts. bid to Rt. ear . Depo Medrol 40mg/ Kenalog 40 mg IM today Resume Ciprodex otic gtts. bid to Rt. ear . Depo Medrol 40mg/ Kenalog 40 mg IM today Resume Ciprodex otic gtts. bid to Rt. ear . Go for dose of kim ephin 1gm IM today and tomorrow then done Diflucan 150mg x1 today Discussed with mom via phone about urology fwup--she will talk with her and let us know . Mom reports after discussion of patient seeming [...] but will need seen if worsening . Mom reports after discussion of patient seeming uncomfortable with abdominal exam, that she has a history of eating objects - nail clippers, brisa needles, etc Will get CXR and abdominal/KUB Straight cath, cbc and cmp All ordered stat so hopefully can call mom back today with results . Mom would prefer I M antibiotic so the oral doesn't affect her stomach. She reports Dr Salgado has treated with rocephin IM x 3 days and Belkys has done well with that. Will get 1st dose of rocephin here - orders written for [facility] to given Rocephin tomorr and Wednesday. Mom would prefer to get rx for that to be done at home since her is a Dr and that is what they have done in the past. Order sent to [facility] since [facility] does not have in stock. [...] the past to try for now. . Mom would prefer I M antibiotic so the oral doesn't affect her stomach. She reports Dr Salgado has treated with rocephin IM x 3 days and Belkys has done well with that. Will get 1st dose of rocephin here - orders written for to given Rocephin tomorrow and Wednesday. Mom would prefer to get rx for that to be done at home since her is a Dr and that is what they have done in the past. Order sent to [facility] since [facility] does not have in stock. [...] the past to try for now. . No further abx nee ded Go back to [facility] for next 3 days and restart carafate Notify if abdominal pain worsens . Per st racheal Brizuela for UA and culture today Ok to have a standing order for further UA needs at for straight cath Rocephin IM today and daily through Wednesday Mom has arranged a family friend that is an ROPE LAYING MACHINE OPERATOR to give Wednesday and Sundays injections - rxs for rocephin and lido sent to [facility] cannot order the lido in the qty patient needs) Dr Arango wants patient to be re-evaluated on Wednesday in clinic Referral to Urology for recurrent UTIs and urinary retention - mom wants to research who she wants her sent to and let us know . Per [facility] cath for UA and culture today Ok to have a standing order for further UA needs at for straight cath Rocephin IM today and daily through Wednesday Mom has arranged a family friend that is an ROPE LAYING MACHINE OPERATOR to give Wednesday and Sundays injections - rxs for rocephin and lido sent to [facility] cannot order the lido in the qty patient needs) Dr Arango wants patient to be re-evaluated on Wednesday in clinic Referral to Urology for recurrent UTIs and urinary retention - mom wants to research who she wants her sent to and let us know . Per Dr Arango [facility] cath for UA and culture today Ok to have a standing order for further UA needs at for straight cath Rocephin IM today and daily through Wednesday Mom has arranged a family friend that is an ROPE LAYING MACHINE OPERATOR to give Wednesday and Sundays injections - rxs for rocephin and lido sent to [facility] cannot order the lido in the qty patient needs) Dr Arango wants patient to be re-evaluated on Wednesday in clinic Referral to Urology for recurrent UTIs and urinary retention - mom wants to research who she wants her sent to and let us know . Lengthy visit Trial singulair in addition [...] arrange updated office visits for Belkys . Lengthy visit Trial singulair in addition [...] arrange updated office visits for Belkys . 1 more week of cef dinir
--- OUTSIDE RECORDS SUMMARY | 2019-11-10 19:46 | XMS REPORT | CCD ---
Author Author Belkys Arango D.O. Organization [facility] Address [address] [place] [address] Phone Care Team Providers Care Mathematical Engineer Name Role Phone Keily Arango D.O., PP Unavailable CCM Unavailable Summary Purpose Interface Exchange Insurance Providers Payer name Policy type / Coverage type Covered constitution party ID Effective Begin Date Effective End Date [employer] [facility] [place] Medicaid [id number] 2018 Unknown Family History Family History data not found Social History Social History Element Codes Description Effective Dates Marital status Unknown S halima 08/21/2015 Employment Unknown Curre ntly unemployed Physically handicapped 08/21/[address]: 047933839 Has never smoked or chewed tobacco 08/21/[address]: 127175993 Never drinks alcohol 08/21/2015 Allergies, Adverse Reactions, [...] Date Stop Date Sta tus Fill Instructions meclizine 12.5 mg ta blet RxNorm: 837937 1 Tablet(s) PO TID as needed 03/10/2019 05/08/2019 Ac tive change in quantity Ciprodex 0.3 %-0.1 % ear drops,suspension RxNorm: 491978 DROP(S) 4 DROP(S) ATILIO C BID 03/08/2019 04/04/2019 Ac tive oxcarbazepine 300 mg /5 mL (60 mg/mL) oral suspension RxNorm: 278449 15 Milliliter(s) PO BID 03/07/2019 09/02/2019 Active Macrobid 100 mg capsule RxNorm: 234599 1 Capsule(s) PO BID 02/20/2019 03/01/2019 Inactive Macrobid 100 mg capsule RxNorm: 313109 1 Capsule(s) PO BID 02/20/2019 02/19/2019 Inactive meclizine 12.5 mg ta blet RxNorm: 529058 1 Tablet(s) PO TID as needed 02/06/2019 03/07/2019 In active change in quantity Ciprodex 0.3 %-0.1 % ear drops,suspension RxNorm: 823042 DROP(S) 4 DROP(S) ATILIO C BID 01/30/2019 02/12/2019 Inactive diazepam 10 mg tablet RxNorm: 820582 1 Tablet(s) PO QHS as needed 01/27/2019 03/27/2019 Active sertraline 50 mg tablet RxNorm: 795177 1 Tablet(s) PO QHS 12/29/2018 06/26/2019 Active famotidine 20 mg tablet RxNorm: 176607 1 Tablet(s) PO QHS 12/29/2018 06/26/2019 Active Ciprodex 0.3 %-0.1 % ear drops,suspension RxNorm: 606677 DROP(S) 4 DROP(S) ATILIO C BID 12/14/2018 12/27/2018 Inactive Generlac 10 gram/15 mL oral solution RxNorm: 373648 15 Milliliter(s) PO T WO TO THREE TIMES DAILY 12/06/2018 06/03/2019 Active Protonix 40 mg table t,delayed release RxNorm: 942521 1 Tablet(s) PO or per feeding tube BID 11/24/2018 05/22/2019 Active meclizine 12.5 mg ta blet RxNorm: 379685 1 Tablet(s) PO TID as needed 11/11/2018 02/06/2019 In active change in quantity Ciprodex 0.3 %-0.1 % ear drops,suspension RxNorm: 288738 DROP(S) 4 DROP(S) ATILIO C BID 11/08/2018 11/21/2018 Inactive diazepam 10 mg tablet RxNorm: 128550 1 Tablet(s) PO QHS as needed 10/21/2018 11/19/2018 Inactive Generlac 10 gram/15 mL oral solution RxNorm: 380716 Milliliter(s) 15 MILL ILITER(S) PO TWO TO THREE TIMES DAILY 10/07/2018 11/05/2018 Inactive Ciprodex 0.3 %-0.1 % ear drops,suspension RxNorm: 892106 DROP(S) DROP(S) 4 JENELLE P(S) OTIC BID 08/26/2018 09/08/2018 Inactive meclizine 12.5 mg ta blet RxNorm: 524560 1 TABLET(S) PO TID NEEDED 07/25/2018 10/22/2018 In active change in quantity oxcarbazepine 300 mg /5 mL (60 mg/mL) oral suspension RxNorm: 660258 15 Milliliter(s) PO BID 07/08/2018 07/07/2018 Inactive oxcarbazepine 300 mg /5 mL (60 mg/mL) oral suspension RxNorm: 711924 15 Milliliter(s) PO BID 07/08/2018 01/03/2019 Inactive sertraline 50 mg tablet RxNorm: 154120 1 TABLET(S) PO QHS 07/06/2018 12/28/2018 Inactive Singulair 10 mg tablet RxNorm: 452305 1 TABLET(S) PO QD 06/24/2018 03/20/2019 Active Ciprodex 0.3 %-0.1 % ear drops,suspension RxNorm: 460577 DROP(S) 4 DROP(S) ATILIO C BID 06/20/2018 06/19/2018 Inactive Ciprodex 0.3 %-0.1 % ear drops,suspension RxNorm: 519518 Drop(s) DROP(S) 4 JENELLE P(S) OTIC BID 06/20/2018 07/03/2018 Inactive cefdinir 250 mg/5 mL oral suspension RxNorm: 691402 12 Milliliter(s) PO Q D though PEG tube 06/13/2018 06/22/2018 Inactive famotidine 20 mg tablet RxNorm: 890247 1 Tablet(s) PO QHS 05/31/2018 11/26/2018 Inactive famotidine 40 mg/5 m L (8 mg/mL) oral suspension RxNorm: 584854 2.5 Milliliter(s) PO QHS 04/29/2018 06/12/2018 Inactive meclizine 12.5 mg ta blet RxNorm: 155586 1 TABLET(S) PO TID NEEDED 04/25/2018 07/23/2018 In active change in quantity Generlac 10 gram/15 mL oral solution RxNorm: 210262 Milliliter(s) 15 MILL ILITER(S) PO TWO TO THREE TIMES DAILY 04/04/2018 05/03/2018 Inactive Ciprodex 0.3 %-0.1 % ear drops,suspension RxNorm: 858624 Drop(s) 4 DROP(S) ATILIO C BID 04/04/2018 04/17/2018 Inactive diazepam 10 mg tablet RxNorm: 114327 1 Tablet(s) PO QHS as needed 04/04/2018 05/03/2018 Inactive famotidine 40 mg/5 m L (8 mg/mL) oral suspension RxNorm: 189628 2.5 Milliliter(s) PO QHS 04/04/2018 04/28/2018 Inactive Generlac 10 gram/15 mL oral solution RxNorm: 121433 15 MILLILITER(S) PO T WO TO THREE TIMES DAILY 03/24/2018 04/03/2018 Inactive Singulair 10 mg tablet RxNorm: 007493 1 TABLET(S) PO QD 03/18/2018 06/15/2018 Inactive Ciprodex 0.3 %-0.1 % ear drops,suspension RxNorm: 499155 Drop(s) 4 DROP(S) ATILIO C BID 03/08/2018 03/21/2018 Inactive Generlac 10 gram/15 mL oral solution RxNorm: 183224 15 Milliliter(s) PO t wo to three times daily 03/03/2018 03/23/2018 Inactive meclizine 12.5 mg ta blet RxNorm: 269381 1 Tablet(s) PO TID as needed 02/10/2018 04/10/2018 In active change in quantity meclizine 12.5 mg ta blet RxNorm: 295863 1 Tablet(s) PO BID as needed 02/07/2018 02/09/2018 In active change in quantity Ciprodex 0.3 %-0.1 % ear drops,suspension RxNorm: 897354 Drop(s) 4 DROP(S) ATILIO C BID 02/02/2018 03/08/2018 Inactive sertraline 50 mg tablet RxNorm: 072857 1 TABLET(S) PO QHS 01/25/2018 07/05/2018 Inactive Zithromax 200 mg/5 m L oral suspension RxNorm: 833365 12.5 Milliliter(s) PO QD 12/31/2017 01/04/2018 In active Pepcid 20 mg tablet RxNorm: 591753 TABLET(S) 1 TABLET(S) PO QHS 12/28/2017 04/29/2018 Inactive famotidine 40 mg/5 m L (8 mg/mL) oral suspension RxNorm: 534967 2.5 Milliliter(s) PO QHS 12/28/2017 12/27/2017 Inactive famotidine 40 mg/5 m L (8 mg/mL) oral suspension RxNorm: 341117 2.5 Milliliter(s) PO QHS 12/28/2017 04/03/2018 Inactive Ciprodex 0.3 %-0.1 % ear drops,suspension RxNorm: 261808 Drop(s) 4 DROP(S) ATILIO C BID 12/27/2017 02/02/2018 Inactive meclizine 12.5 mg ta blet RxNorm: 605734 1 Tablet(s) PO BID as needed 12/23/2017 02/06/2018 In active change in quantity Protonix 40 mg table t,delayed release RxNorm: 484128 1 Tablet(s) PO or per feeding tube BID 12/16/2017 07/13/2018 Inactive oxcarbazepine 300 mg /5 mL (60 mg/mL) oral suspension RxNorm: 363222 15 Milliliter(s) PO BID 12/16/2017 07/08/2018 Inactive meclizine 12.5 mg ta blet RxNorm: 490346 1 Tablet(s) PO BID as needed 12/15/2017 02/07/2018 In active change in quantity Pepcid 40 mg/5 mL (8 mg/mL) oral suspension RxNorm: 511969 5 Milliliter(s) PO QH S to replace nighttime pantoprazole dose 12/14/2017 12/27/2017 Inactive meclizine 12.5 mg ta blet RxNorm: 682193 1 Tablet(s) PO BID as needed 12/13/2017 12/23/2017 In active diazepam 10 mg tablet RxNorm: 195938 1 Tablet(s) PO QHS as needed 12/02/2017 03/01/2018 Inactive prednisolone 15 mg/5 mL oral solution RxNorm: 372793 5 Milliliter(s) PO BI D for 3 days then 5ml daily for 3 days then 2.5ml daily for 3 days 12/02/2017 12/13/2017 Inactive sertraline 50 mg tablet RxNorm: 794968 1 Tablet(s) PO QHS 11/04/2017 01/24/2018 Inactive Ciprodex 0.3 %-0.1 % ear drops,suspension RxNorm: 774695 Drop(s) 4 DROP(S) ATILIO C BID 10/18/2017 10/31/2017 Inactive Ciprodex 0.3 %-0.1 % ear drops,suspension RxNorm: 846570 Drop(s) 4 DROP(S) ATILIO C BID 10/18/2017 12/27/2017 Inactive Singulair 10 mg tablet RxNorm: 331696 1 Tablet(s) PO QD 09/30/2017 03/17/2018 Inactive diazepam 5 mg/5 mL ( 1 mg/mL) oral solution RxNorm: 161096 2.5 Milliliter(s) PO QD give additional 5 mg dose if seizure occurs 09/17/2017 No Stop Date Active Bactrim DS 800 mg-16 0 mg tablet RxNorm: 988156 1 Tablet(s) PO BID 09/17/2017 09/23/2017 Inactive Ciprodex 0.3 %-0.1 % ear drops,suspension RxNorm: 336477 4 DROP(S) OTIC BID 09/13/2017 10/18/2017 In active cefdinir 250 mg/5 mL oral suspension RxNorm: 620365 12 Milliliter(s) PO Q D though PEG tube 08/06/2017 08/15/2017 Inactive sertraline 50 mg tablet RxNorm: 062861 1 Tablet(s) PO QHS 08/02/2017 11/04/2017 Inactive Ciprodex 0.3 %-0.1 % ear drops,suspension RxNorm: 399543 4 DROP(S) OTIC BID 07/22/2017 08/11/2017 In active Singulair 10 mg tablet RxNorm: 765530 1 Tablet(s) PO QD 06/30/2017 09/30/2017 Inactive diazepam 10 mg tablet RxNorm: 228197 TAKE 1 TABLET BY MOUTH EVERY NIGHT AT [facility] NEEDED 06/04/2017 07/03/2017 Inactive oxcarbazepine 300 mg /5 mL (60 mg/mL) oral suspension RxNorm: 513182 15 MILLILITER(S) PO BID 05/03/2017 12/16/2017 Inactive sertraline 50 mg tablet RxNorm: 997755 1 Tablet(s) PO QHS 05/03/2017 08/02/2017 Inactive Protonix 40 mg table t,delayed release RxNorm: 995784 1 Tablet(s) PO or per feeding tube BID 04/26/2017 12/16/2017 Inactive Ciprodex 0.3 %-0.1 % ear drops,suspension RxNorm: 367786 4 DROP(S) OTIC BID 04/26/2017 05/23/2017 In active Generlac 10 gram/15 mL oral solution RxNorm: 997072 Milliliter(s) TAKE 15 ML BY MOUTH TWO-THREE TIMES DAILY 04/08/2017 03/03/2018 Inactive Singulair 10 mg tablet RxNorm: 648553 1 Tablet(s) PO QD 03/03/2017 06/30/2017 Inactive diazepam 10 mg tablet RxNorm: 500150 1 Tablet(s) PO QHS as needed 02/15/2017 06/04/2017 Inactive Singulair 10 mg tablet RxNorm: 735182 1 Tablet(s) PO QD 12/01/2016 03/03/2017 Inactive Diflucan 150 mg tablet RxNorm: 887586 Tablet(s) Give 1 tab PO now and then rep eat dose in 5 days 11/10/2016 03/31/2017 Inactive Zithromax 200 mg/5 m L oral suspension RxNorm: 309619 12.5 Milliliter(s) PO QD 11/10/2016 11/14/2016 In active Singulair 10 mg tablet RxNorm: 890469 TAKE 1 TABLET BY MOUTH ONCE DAILY 11/02/2016 12/01/2016 In active diazepam 10 mg tablet RxNorm: 784944 TAKE 1 TABLET BY MOUTH EVERY NIGHT AT [facility] NEEDED 10/21/2016 11/19/2016 Inactive sertraline 50 mg tablet RxNorm: 160951 1 Tablet(s) PO QHS 10/12/2016 01/09/2017 Inactive fluconazole 100 mg t ablet RxNorm: 251648 1 Tablet(s) PO QD 09/22/2016 09/24/2016 Inactive fluconazole 100 mg t ablet RxNorm: 593239 1 Tablet(s) PO QD 09/22/2016 09/21/2016 Inactive Bactrim DS 800 mg-16 0 mg tablet RxNorm: 191480 1 Tablet(s) PO BID 09/10/2016 09/09/2016 Inactive Bactrim DS 800 mg-16 0 mg tablet RxNorm: 292156 1 Tablet(s) PO BID 09/10/2016 09/16/2016 Inactive oxcarbazepine 300 mg /5 mL (60 mg/mL) oral suspension RxNorm: 684524 15 Milliliter(s) PO BID 09/07/2016 03/05/2017 Inactive sertraline 50 mg tablet RxNorm: 248567 1 Tablet(s) PO QHS 07/06/2016 10/03/2016 Inactive Pepcid 20 mg tablet RxNorm: 187295 Tablet(s) 1 TABLET(S) PO QHS 07/06/2016 03/08/2017 Inactive sertraline 50 mg tablet RxNorm: 437397 1 Tablet(s) PO QHS 06/08/2016 05/03/2017 Inactive Generlac 10 gram/15 mL oral solution RxNorm: 221320 Milliliter(s) TAKE 15 ML BY MOUTH TWO-THREE TIMES DAILY 06/08/2016 09/08/2016 Inactive Pepcid 20 mg tablet RxNorm: 360734 1 TABLET(S) PO QHS 06/04/2016 07/05/2016 Inactive fluconazole 100 mg t ablet RxNorm: 621040 1 Tablet(s) QD throug h PEG tube 05/13/2016 12/01/2017 In active Diflucan 150 mg tablet RxNorm: 324752 Give 1 tab PO now and then repeat dose i n 5 days 03/19/2016 11/09/2016 Inactive ceftriaxone 1 gram s olution for injection RxNorm: 8639855 1 Gram(s) IM QD Wedu and Wednesday03/19/2016 11/09/2016 Inactive lidocaine 10 mg/mL ( 1 %) injection solution RxNorm: 1976477 Use as directed to reconstitute Rocephin when needed 03/19/2016 12/13/2017 Inactive Generlac 10 gram/15 mL oral solution RxNorm: 805291 TAKE 15 ML BY MOUTH T WO-THREE TIMES DAILY 03/19/2016 06/07/2016 Inactive oxcarbazepine 300 mg /5 mL oral suspension RxNorm: 429213 15 Milliliter(s) PO B ID 03/13/2016 09/07/2016 In active Ciprodex 0.3 %-0.1 % ear drops,suspension RxNorm: 622860 4 DROP(S) OTIC BID 03/09/2016 03/15/2016 In active cefdinir 250 mg/5 mL oral suspension RxNorm: 741732 11.75 Milliliter(s) P O QD though PEG tube 03/02/2016 03/08/2016 Inactive cefdinir 250 mg/5 mL oral suspension RxNorm: 499856 11.75 Milliliter(s) P O QD though PEG tube 02/24/2016 03/01/2016 Inactive cefdinir 250 mg/5 mL oral suspension RxNorm: 892113 11.75 Milliliter(s) P O QD though PEG tube 02/24/2016 02/23/2016 Inactive Ciprodex 0.3 %-0.1 % ear drops,suspension RxNorm: 360804 4 Drop(s) OTIC BID 02/24/2016 03/01/2016 In active Generlac 10 gram/15 mL oral solution RxNorm: 555990 TAKE 15 ML BY MOUTH T WICE DAILY 02/17/2016 03/18/2016 Inactive Generlac 10 gram/15 mL oral solution RxNorm: 192932 15 Milliliter(s) PO B ID 01/23/2016 02/16/2016 In active Pepcid 20 mg tablet RxNorm: 023456 1 TABLET(S) PO QHS 01/13/2016 06/03/2016 Inactive Ciprodex 0.3 %-0.1 % ear drops,suspension RxNorm: 028696 4 Drop(s) OTIC BID 12/23/2015 12/29/2015 In active sertraline 50 mg tablet RxNorm: 919725 1 Tablet(s) PO QHS 12/16/2015 06/07/2016 Inactive Zithromax 500 mg tablet RxNorm: 167242 1 Tablet(s) PO QD 12/16/2015 12/22/2015 Inactive Pepcid 20 mg tablet RxNorm: 795773 1 Tablet(s) PO QHS 12/16/2015 01/12/2016 Inactive Zithromax 500 mg tablet RxNorm: 061874 1 Tablet(s) PO QD 11/12/2015 11/18/2015 Inactive Singulair 10 mg tablet RxNorm: 279590 1 Tablet(s) PO BID 10/16/2015 11/11/2015 Inactive diazepam 10 mg tablet RxNorm: 839826 1 Tablet(s) PO QHS 10/07/2015 10/21/2016 Inactive diazepam 10 mg tablet RxNorm: 463147 1 Tablet(s) PO QHS 10/07/2015 10/06/2015 Inactive fexofenadine 30 mg/5 mL oral suspension RxNorm: 956907 10 Milliliter(s) PO o ne to two times daily PRN allergies 09/20/2015 12/15/2015 Inactive ceftriaxone 1 gram s olution for injection RxNorm: 3012606 1 Gram(s) IM QD 09/20/2015 09/21/2015 In active Ciprodex 0.3 %-0.1 % ear drops,suspension RxNorm: 241247 4 Drop(s) OTIC BID 09/20/2015 10/03/2015 In active Protonix 40 mg table t,delayed release RxNorm: 124345 1 Tablet(s) PO or per feeding tube BID 08/21/2015 12/18/2015 Inactive Carafate 100 mg/mL o ral suspension RxNorm: 783775 10 Milliliter(s) Misc ellaneous per feeding tube AC & HS 08/21/2015 09/19/2015 Inactive Zyrtec 10 mg tablet RxNorm: 2855114 1 Tablet(s) PO QD No Start Date Active diazepam 20 mg recta l kit RxNorm: 985108 RTL as needed No Start Date Active Lortab Elixir 10 mg- 300 mg/15 mL oral solution RxNorm: 3724615 8 PO Q6-8H as needed No Start Date Active ondansetron HCl 4 mg /5 mL oral solution RxNorm: 850891 10 Milliliter(s) PO a s needed and through tube No Start Date Active sertraline 50 mg tablet RxNorm: 685583 1 Tablet(s) PO QD No Start Date 12/15/2015 Inactive Brittany 180 mg tablet RxNorm: 635220 1 Tablet(s) PO QD No Start Date 06/12/2018 Inactive Generlac 10 gram/15 mL oral solution RxNorm: 418485 15 Milliliter(s) PO B ID No Start Date 01/22/2016 Inactive oxcarbazepine 300 mg /5 mL oral suspension RxNorm: 762863 13.5 Milliliter(s) PO QAM and 15ml in the evening No Start Date 12/15/2015 Inactive Singulair 10 mg tablet RxNorm: 441756 1 Tablet(s) PO QD No Start Date 11/30/2016 Inactive meclizine 12.5 mg ta blet RxNorm: 047762 1 Tablet(s) PO TID as needed for dizziness No Start Date 09/13/2017 Inactive meclizine 12.5 mg ta blet RxNorm: 491867 1 Tablet(s) PO BID No Start Date 12/12/2017 Inactive fluconazole 100 mg t ablet RxNorm: 524032 1 Tablet(s) QD throug h PEG tube No Start Date 05/12/2016 Inactive Flomax 0.4 mg capsule RxNorm: 752218 1 Capsule(s) PO QD No Start Date 06/12/2018 Inactive diazepam 10 mg tablet RxNorm: 685091 1 Tablet(s) PO QHS as needed No Start Date 02/14/2017 Inactive Generlac 10 gram/15 mL oral solution RxNorm: 816381 15 Milliliter(s) PO t wo to three times daily No Start Date 03/02/2018 Inactive oxcarbazepine 300 mg /5 mL oral suspension RxNorm: 371995 15 Milliliter(s) PO B ID No Start Date 12/15/2017 Inactive Medication Administered No Medication Administered data Immunizations No Immunization data Assessments Condition Codes Effectiv e Dates Irritability and anger ICD-10: R45.4 ICD-9: 799.22 11/25/2018 Acute suppurative otitis media without s pontaneous rupture of ear drum, bilateral ICD-10: H66.003 ICD-9: 382.00 06/13/2018 Acute gastritis without bleeding ICD -10: K29.00 ICD-9: 535.00 01/04/2018 Other fatigue ICD-10: R53.83 ICD-9: 780.79 01/04/2018 Anuria and oliguria ICD-10: R34 ICD-9: 788.5 01/04/2018 Acute bronchitis, unspecified ICD-10 : J20.9 ICD-9: 466.0 12/31/2017 Gastro-esophageal reflux disease without esophagitis ICD-10: K21.9 ICD-9: 530.81 12/14/2017 Allergic rhinitis due to pollen ICD- 10: J30.1 ICD-9: 477.9 12/14/2017 Epilepsy, unspecified, intractable, with out status epilepticus ICD-10: G40.919 ICD-9: 345.91 12/14/2017 Severe intellectual disabilities ICD -10: F72 ICD-9: 318.1 12/14/2017 Encounter for general adult medical exam ination without abnormal findings ICD-10: Z00.00 ICD-9: V70.9 12/14/2017 Other allergic rhinitis ICD-10: J30. 89 ICD-9: 477.8 10/12/2017 Hesitancy of micturition ICD-10: R39 .11 ICD-9: 788.64 09/17/2017 Acute suppurative otitis media without s pontaneous rupture of ear drum, recurrent, left ear ICD-10: H66.005 ICD-9: 382.00 09/17/2017 Otitis media, unspecified, left ear ICD-10: H66.92 ICD-9: 380.14 08/06/2017 Urinary tract infection, site not specified ICD-10: N39.0 ICD-9: 599.0 08/02/2017 Dizziness and giddiness ICD-10: R42 ICD-9: 780.4 04/21/2017 Cyclical vomiting, intractable ICD-1 0: G43.A1 ICD-9: 536.2 04/21/2017 Altered mental status, unspecified I CD-10: R41.82 ICD-9: 780.97 04/20/2017 Vomiting, unspecified ICD-10: R11.10 ICD-9: 787.03 04/20/2017 Vertigo of central origin, unspecified ear ICD-10: H81.49 ICD-9: 386.2 04/01/2017 Personal history of urinary calculi ICD-10: Z87.442 ICD-9: V13.01 03/01/2017 Intestinal adhesions [bands] with obstru ction (postprocedural) (postinfection) ICD-10: K56.5 ICD-9: 560.81 03/01/2017 Constipation, unspecified ICD-10: K5 9.00 ICD-9: 564.00 12/17/2016 Acute and subacute allergic otitis media (mucoid) (sanguinous) (serous), left ear ICD-10: H65.112 ICD-9: 381.05 11/10/2016 Other polyuria ICD-10: R35.8 ICD-9: 788.42 09/07/2016 Unspecified urinary incontinence ICD -10: R32 ICD-9: 788.30 09/07/2016 Unspecified ovarian cyst, right side ICD-10: N83.201 ICD-9: 620.2 08/13/2016 Calculus of kidney ICD-10: N20.0 ICD-9: 592.0 08/13/2016 Cyst of kidney, acquired ICD-10: N28 .1 ICD-9: 753.10 08/13/2016 Pain in left foot ICD-10: M79.672 ICD-9: 729.5 05/19/2016 Rash and other nonspecific skin eruption ICD-10: R21 ICD-9: 782.1 03/27/2016 Dysuria ICD-10: R30.0 ICD-9: 788.1 03/19/2016 Retention of urine, unspecified ICD- 10: R33.9 ICD-9: 788.20 03/19/2016 Acute sinusitis, unspecified ICD-10: J01.90 ICD-9: 461.9 03/02/2016 Generalized abdominal pain ICD-10: R 10.84 ICD-9: 789.07 02/24/2016 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 ICD-9: 307.52 02/24/2016 Chronic mucoid otitis media, right ear ICD-10: H65.31 ICD-9: 381.20 12/16/2015 Functional dyspepsia ICD-10: K30 ICD-9: 536.8 12/16/2015 Allergic rhinitis, unspecified ICD-1 0: J30.9 ICD-9: 477.9 12/16/2015 Acute recurrent sinusitis, unspecified ICD-10: J01.91 ICD-9: 461.9 11/12/2015 Nausea with vomiting, unspecified IC D-10: R11.2 ICD-9: 787.01 10/16/2015 Other seasonal allergic rhinitis ICD -10: J30.2 ICD-9: 477.9 10/16/2015 Epigastric pain ICD-10: R10.13 ICD-9: 789.06 10/16/2015 Generalized abdominal pain ICD-10: R 10.84 ICD-9: 789.00 09/23/2015 Encounter for follow-up examination dustin armstrong completed treatment for conditions other than malignant [...] CPT-4: J0696 03/19/2016 THER/PROPH/DIAG INJ SC/IM CPT-4: 71078 03/19/2016 DEXAMETHASONE SODIUM PHOS CPT-4: J1100 11/12/2015 THER/PROPH/DIAG INJ SC/IM CPT-4: 09221 11/12/2015 CEFTRIAXONE SODIUM I NJECTION CPT-4: J0696 09/20/2015 THER/PROPH/DIAG INJ SC/IM CPT-4: 78756 09/20/2015 THER/PROPH/DIAG INJ SC/IM CPT-4: 73491 09/10/2015 METHYLPREDNISOLONE 4 0 MG INJ CPT-4: [...] 1: 114/70 Code: 8480-6 BMI: 23.1 Code: 60752-2 Heart Rate 1: 80 bpm Height: 4'6" [...] solid yesterday evening anxiety Quality agitation 03/23/2016 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 [...] severe 08/21/2015 None developmental delay Significant Medi [facility] Conditions seizure disorder 08/21/2015 None Advance Directives No Advance Directive data Encounters Encounter Performer Loca tion Codes Date ([id number]) OFFICE/OUTPA TIENT VISIT EST Diagnosis: Irritability and anger[ICD10: R45.4] Nataliia ARANGO DO [facility] CPT-4: 58443 11/25/2018 ([id number]) OFFICE/OUTPA TIENT VISIT EST Diagnosis: Acute suppurative otitis media without spontaneous rupture of ear drum, bilateral[ICD10: H66.003] Fatou ARANGO DO [facility] CPT-4: 68472 06/13/2018 ([id number]) OFFICE/OUTPA TIENT VISIT EST Diagnosis: Other fatigue[ICD10: R53.83] Diagnosis: Anuria and oliguria[ICD10: R34] Diagnosis: Acute gastritis without bleeding[ICD10: K29.00] Fatou [facility] CPT-4: 29533 01/04/2018 ([id number]) OFFICE/OUTPA TIENT VISIT EST Diagnosis: Acute bronchitis, unspecified[ICD10: J20.9] Fatou [facility] CPT-4: 45331 12/31/2017 ([id number]) PREV VISIT E ST AGE 18-39 Diagnosis: Encounter for general adult medical examination without abnormal findings[ICD10: Z00.00] Diagnosis: Severe intellectual disabilities[ICD10: F72] Diagnosis: Allergic rhinitis due to pollen[ICD10: J30.1] Diagnosis: Epilepsy, unspecified, intractable, without status epilepticus[ICD10: G40.919] Diagnosis: Gastro-esophageal reflux disease without esophagitis[ICD10: K21.9] Keily ARANGO [facility] CPT-4: 28570 12/14/2017 ([id number]) OFFICE/OUTPA TIENT VISIT EST Diagnosis: Allergic rhinitis due to pollen[ICD10: J30.1] Diagnosis: Epilepsy, unspecified, intractable, without status epilepticus[ICD10: G40.919] Keily ARANGO DO [facility] CPT-4: 21513 12/02/2017 ([id number]) OFFICE/OUTPA TIENT VISIT EST Diagnosis: Other allergic rhinitis[ICD10: J30.89] Fatou [facility] CPT-4: 84596 10/12/2017 OFFICE/OUTPATIENT SIT EST Diagnosis: Acute suppurative otitis media without spontaneous rupture of ear drum, recurrent, left ear[ICD10: H66.005] Diagnosis: Epilepsy, unspecified, intractable, without status epilepticus[ICD10: G40.919] Diagnosis: Hesitancy of micturition[ICD10: R39.11] Fatou [facility] CPT-4: 83900 09/17/2017 OFFICE/OUTPATIENT SIT EST Diagnosis: Otitis media, unspecified, left ear[ICD10: H66.92] [facility] 20680 08/06/2017 ([id number]) OFFICE/OUTPA TIENT VISIT EST Diagnosis: Vertigo of central origin, 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.49] Diagnosis: Dizziness and giddiness[ICD10: R42] Keily LINARES [facility] CPT-4: 30958 04/01/2017 OFFICE/OUTPATIENT SIT EST Diagnosis: Vomiting, unspecified[ICD10: R11.10] Diagnosis: 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)[ICD10: K56.5] Diagnosis: Personal history of urinary calculi[ICD10: Z87.442] Emely LINARES [facility]lic[facility] CPT-4: 69785 03/01/2017 ([id number]) OFFICE/OUTPA TIENT VISIT EST Diagnosis: Allergic rhinitis due to pollen[ICD10: J30.1] Diagnosis: Acute and subacute allergic otitis media (mucoid) (sanguinous) (serous), left ear[ICD10: H65.112] Keily LINARES [facility] CPT-4: 70312 11/10/2016 ([id number]) OFFICE/OUTPA TIENT VISIT EST Diagnosis: 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] Diagnosis: Unspecified ovarian cyst, right side[ICD10: N83.201] Diagnosis: Cyst of kidney, 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] Keily LINARES ThorAlicia [facility] CPT-4: 03290 08/13/2016 ([id number]) OFFICE/OUTPA TIENT VISIT EST Diagnosis: Rash and other nonspecific skin eruption[ICD10: R21] Aziza Bobby [facility] CPT-4: 79573 03/27/2016 ([id number]) OFFICE/OUTPA TIENT VISIT EST Diagnosis: Urinary tract infection, site not specified[ICD10: N39.0] Keily ARANGO [facility] CPT-4: 99703 03/23/2016 ([id number]) OFFICE/OUTPA TIENT VISIT EST Diagnosis: Retention of urine, unspecified[ICD10: R33.9] Diagnosis: Dysuria[ICD10: R30.0] Diagnosis: Constipation, unspecified[ICD10: K59.00] Aziza ARANGO [facility] CPT-4: 83298 03/19/2016 ([id number]) OFFICE/OUTPA TIENT VISIT EST Diagnosis: Acute sinusitis, unspecified[ICD10: J01.90] Keily COONEY [facility] CPT-4: 22402 03/02/2016 OFFICE/OUTPATIENT SIT EST Diagnosis: Other fatigue[ICD10: R53.83] Diagnosis: Retention of urine, unspecified[ICD10: R33.9] Diagnosis: Dysuria[ICD10: R30.0] Diagnosis: Generalized abdominal pain[ICD10: R10.84] 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] Aziza ARANGO [facility] CPT-4: 71084 02/24/2016 ([id number]) OFFICE/OUTPA TIENT VISIT EST Diagnosis: Chronic mucoid otitis media, right ear[ICD10: H65.31] Diagnosis: Allergic rhinitis, unspecified[ICD10: J30.9] Diagnosis: 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] Keily ARANGO [facility] CPT-4: 36246 12/16/2015 ([id number]) OFFICE/OUTPA TIENT VISIT EST Diagnosis: Allergic rhinitis, unspecified[ICD10: J30.9] Diagnosis: Acute recurrent sinusitis, unspecified[ICD10: J01.91] Keily COONEY [facility] CPT-4: 49644 11/12/2015 ([id number]) OFFICE/OUTPA TIENT VISIT EST Diagnosis: Other seasonal allergic rhinitis[ICD10: J30.2] Diagnosis: Nausea with vomiting, unspecified[ICD10: R11.2] Diagnosis: Epigastric pain[ICD10: R10.13] Aziza ARANGO [facility] CPT-4: 45723 10/16/2015 OFFICE/OUTPATIENT SIT EST Diagnosis: Encounter for follow-up examination after completed treatment for conditions other than malignant neoplasm[ICD10: Z09] Diagnosis: Generalized abdominal pain[ICD10: R10.84] Keily COONEY [facility] CPT-4: 36825 09/23/2015 ([id number]) OFFICE/OUTPA TIENT VISIT EST Diagnosis: Otitis media, unspecified, right ear[ICD10: H66.91] Diagnosis: Constipation, unspecified[ICD10: K59.00] Diagnosis: Allergic rhinitis, unspecified[ICD10: J30.9] Aziza ARANGO [employer] [facility] CPT-4: 53752 09/20/2015 OFFICE/OUTPATIENT SIT EST Diagnosis: Allergic rhinitis, unspecified[ICD10: J30.9] Diagnosis: Unspecified perforation of tympanic membrane, right ear[ICD10: H72.91] Bibiana RiosAprilmason CASTILLO [employer] [facility] CPT-4: 32133 09/10/2015 OFFICE/OUTPATIENT SIT NEW Diagnosis: Epilepsy, unspecified, intractable, without status epilepticus[ICD10: G40.919] Diagnosis: Gastric ulcer, unspecified as acute or chronic, without hemorrhage or perforation[ICD10: K25.9] Diagnosis: Severe intellectual disabilities[ICD10: F72] Keily COONEY [employer] [facility] CPT-4: 39217 08/21/2015 Plan of Care Planned Activity Notes [...] : R45.4 11/25/2018 Appointment: Nataliia Hsieh [address] ACUTE ILLNESS 11/25/2018 Visit Diagnosis Plan: Acute suppurative otitis media without spontaneous rupture of ear drum, bilateral Discussion: cefdinir for 10 days. if worsening symptoms later this week, call clinic. push fluids and tylenol/ibuprofen prn pain or fever. ICD-9 : 382.00 ICD-10 : H66.003 06/13/2018 Appointment: Fatou Onofre [address] [place] [address] ACUTE ILLNESS 06/13/2018 Visit Diagnosis Plan: Anuria [...] : R53.83 01/04/2018 Appointment: Fatou Onofre [address] [place] [address] ACUTE ILLNESS 01/04/2018 Patient Education: Patient Medication Summary Completed 01/04/2018 Visit Diagnosis Plan: Acute bronchitis, unspecified Discussion: zithromax prescribed to take as directed. continue with allergy meds including flonase to help dry congestion. call office next week if new or worsening symptoms. ICD-9 : 466.0 ICD-10 : J20.9 12/31/2017 Appointment: Fatou Onofre [address] [place] [address] ACUTE ILLNESS 12/31/2017 Patient Education: Patient Medication [...] G40.919 12/14/2017 Visit Diagnosis Plan: Encounter for [facility] adult medical examination without abnormal findings Discussion: Had recent lab done Follow Up: 3 months ICD-9 : V70.9 ICD-10 : Z00.00 12/14/2017 Appointment: Keily Arango WPtel: [address] [place] [address] CHECK UP 12/14/2017 Patient Education: Patient Medication [...] : J30.1 12/02/2017 Appointment: Keily Arango WPtel: [facility] [address] ACUTE ILLNESS 12/02/2017 Patient Education: Patient Medication Summary Completed 12/02/2017 Visit Diagnosis Plan: Other allergic rhinitis Discussion: symptoms most likely caused from allergies. patient sent to hospital for decadron injection. instructed to restart patient's flonase at home. if new or worsening symptoms, call or rtc. ICD-9 : 477.8 ICD-10 : J30.89 10/12/2017 Appointment: Fatou Onofre [address] [place] [address] ACUTE ILLNESS 10/12/2017 Patient Education: Patient Medication [...] ICD-10 : G40.919 09/17/2017 Appointment: Fatou Onofre [address] [place], [place] [email or web address] ACUTE ILLNESS 09/17/2017 Patient Education: Patient Medication Summary Completed 09/17/2017 Visit Diagnosis Plan: Otitis media, unspecified, left ear Discussion: cefdinir prescribed daily for 10 days. instructed to administer tylenol/ibuprofen for pain or fever. if no improvement, or worsening symptoms, call or rtc. ICD-9 : 380.14 ICD-10 : H66.92 08/06/2017 Appointment: Fatou Onofre [address] [place], [place] [id number] ACUTE ILLNESS 08/06/2017 Patient Education: Patient Medication [...] H81.49 04/01/2017 Appointment: [facility]ily [facility]el[facility] [phone] [facility] FOLLOW UP 04/01/2017 Patient Education: Patient Medication Summary Completed 04/01/2017 Patient Education: Patient Medication Summary Completed 03/09/2017 Care Plan: CT HEAD/BRAIN W/O DYE LOINC : 26914-6 Pending 03/09/2017 Visit Plan: It's difficult to [...] indicated. 03/01/2017 Appointment: Emely Hdz WPtel: [address] [place] [address] ACUTE ILLNESS 03/01/2017 Patient Education: Patient Medication Summary Completed 03/01/2017 Patient Education: Patient Medication Summary Completed 12/17/2016 Visit Diagnosis Plan: Allergic rhinitis due to pollen Discussion: Continue zyrtec/singulair ICD-9 : 477.9 ICD-10 : J30.1 11/10/2016 Visit Diagnosis Plan: Acute and subacute allergic otitis media (mucoid) (sanguinous) (serous), left ear Discussion: Zithromax ICD-9 : 381.05 ICD-10 : H65.112 11/10/2016 Appointment: Keily Arango WPtel: [facility] ACUTE ILLNESS 11/10/2016 Patient Education: Patient Medication Summary Completed 11/10/2016 Patient Education: Patient Medication Summary Completed 09/07/2016 Care Plan: URINALYSIS AUTO W/O SCOPE LOINC : 65589-4 Pending 09/07/2016 Visit Diagnosis Plan: Cyst of kidney, acquired Discussion: Renal US in 6mos to assess stability ICD-9 : 753.10 ICD-10 : N28.1 08/13/2016 Visit Diagnosis Plan: Unspecified ovarian cyst, right side Discussion: Pain resolved so will only get pelvic US if pain or vomiting return ICD-9 : 620.2 ICD-10 : N83.201 08/13/2016 Visit Diagnosis Plan: Calculus of kidney Discussion: Finish cipro Finish flomax Will observe for now since pain is resolved ICD-9 : 592.0 ICD-10 : N20.0 08/13/2016 Appointment: Keily Arango [facility]Ptel[facility] [phone] [facility] 08/12 confirmed-sp FOLLOW UP 08/13/2016 Patient Education: Patient Medication Summary Completed 08/13/2016 Patient Education: Patient Medication Summary Completed 05/19/2016 Care Plan: X-RAY EXAM OF FOOT left foot LOINC : 69802-9 Pending 05/19/2016 Visit Plan: Discussed with Dr Burton gilbert CBC to be drawn Order sent to Will call with results 03/27/2016 Visit Plan: Discussed with Dr Burton gilbert CBC to be drawn Order sent to Will call with results 03/27/2016 Appointment: [facility] [facility] [facility] 03/27/2016 Patient Education: Patient Medication Summary Completed 03/27/2016 Visit Plan: Go for dose of rocephin 1gm IM today and tomorrow then done Diflucan 150mg x1 today Discussed with mom via phone about urology fwup--she will talk with her and let us know 03/23/2016 Appointment: Keily Arango [facility]Ptel: [phone] [facility] 03/23 confirmed ~sl FOLLOW UP 03/23/2016 Patient Education: Patient Medication Summary Completed 03/23/2016 Visit Plan: Per karen Brizuela cath for UA and culture today Ok to have a standing order for further UA needs at for straight cath Rocephin IM today and daily through Wednesday Mom has arranged a family friend that is an [employer] to give Wednesday and Sundays injections - [...] arranged a family friend that is an CHA[employer] to give Wednesday and Sundays injections - [...] arranged a family friend that is an CHA[employer] to give Wednesday and Sundays injections - [...] us know 03/19/2016 Appointment: Aziza [facility]anes [address] [facility] [place] 03/19/2016 Patient Education: Patient Medication Summary Completed 03/19/2016 Visit Plan: 1 more week of cefdinir 03/02/2016 Appointment: Keily Arango WPtel: [address] [facility] 03/02 confirmed~sl WORK IN 03/02/2016 Patient Education: [...] today with results 02/24/2016 Appointment: Aziza [facility] [address] [facility] [place] 02/24/2016 Patient Education: Patient Medication Summary Completed 02/24/2016 Care Plan: CHEST X-RAY 2VW FRONTAL&LATL LOINC : 68762-1 Pending 02/24/2016 Care Plan: X-RAY EXAM OF ABDOMEN LOINC : 35673-0 Pending 02/24/2016 Visit Plan: Repeat zithromax x1 wee k Ciprodex to right ear x1 week Add Pepcid q HS x2-4 weeks for total histamine blockade and for extra stomach protection while on zithromax 12/16/2015 Appointment: Keily Arango WPtel: [address] [place], [place] [address] 6/9 lm~sl 6/10 lm ~sl FOLLOW UP 12/16/2015 Patient Education: Patient Medication Summary Completed 12/16/2015 Patient Education: [facility] Saving AutoInj - Sertraline HCL - 18-64 - Dynamic Portal ID Completed 12/16/2015 Visit Plan: Saline nasal flushes pr n. Tylenol/Motrin prn headache. Notify if persists/symptoms worsens Dexamethasone given 11/12/2015 Visit Plan: Saline nasal flushes pr n. Tylenol/Motrin prn headache. Notify if persists/symptoms worsens Dexamethasone given 11/12/2015 Appointment: Keily Arango WPtel: [phone] [facility] [place] 11/10 lm~sl 11/11 lm~sl 11/11 confirm-sp [...] for Belkys 10/16/2015 Appointment: Aziza Magallanes [phone] [facility] ACUTE ILLNESS 10/16/2015 Patient Education: Patient Medication Summary Completed 10/16/2015 Appointment: Aziza Magallanes [phone] [facility] [place] canceled, feeling better CANCELED 10/03/2015 Visit Plan: No further abx needed G o back to [facility] for next 3 days and restart carafate Notify if abdominal pain worsens 09/23/2015 Appointment: Keily Arango WPtel: [phone] [facility] 09/19 confirmed-sp FOLLOW UP 09/23/2015 Patient [...] try for now. 09/20/2015 Appointment: Aziza [facility]anes [address] [facility] [place] 09/20/2015 Patient Education: Patient [...] ear 09/10/2015 Appointment: Bibiana Garg [facility]Ptel: [phone] [facility] 09/08 confirmed-sp ACUTE ILLNESS 09/10/2015 Patient Education: Patient Medication Summary Completed 09/10/2015 Visit Plan: Increase Protonix to 40 mg po BID for 1month Continue carafate at q AC dosing for full month then wean off Jevity for 2 more days then advance diet if able Continue current meds 08/21/2015 Appointment: Keily Arango WPtel: [phone] [facility] NEW PATIENT 08/21/2015 Patient Education: Patient Medication [...] worsens Dexamethasone given . Discussed with Dr Arango CBC to be drawn Order sent to [facility] Will call with results . Discussed with Dr Arango CBC to be drawn Order sent to [facility] Will call with results . It's difficult [...] further abx nee ded Go back to [facility] for next 3 days and restart carafate Notify if abdominal pain worsens . Per Dr Arango, [facility] cath for UA and culture today Ok to have a standing order for further UA needs at for straight cath Rocephin IM today and daily through Wednesday Mom has arranged a family friend that is an [employer] to give Wednesday and Sundays injections - rxs for rocephin and lido sent to [facility] cannot order the lido in the qty patient needs) Dr Arango wants patient to be re-evaluated on Wednesday in clinic Referral to Urology for recurrent UTIs and urinary retention - mom wants to research who she wants her sent to and let us know . Per Dr Arango [facility] cath for UA and culture today Ok to have a standing order for further UA needs at for straight cath Rocephin IM today and daily through Wednesday Mom has arranged a family friend that is an [employer] to give Wednesday and Sundays injections - [...] let us know . Per Dr Arango, [facility] cath for UA and culture today Ok to have a standing order for further UA needs at for straight cath Rocephin IM today and daily through Wednesday Mom has arranged a family friend that is an [employer] to give Wednesday and Sundays injections - [...]
--- OUTSIDE RECORDS SUMMARY | 2019-11-10 19:48 | XMS REPORT | CCD ---
Author Author Belkys Arango D.O. Organization KEILY ARANGO DO [facility] Address [address] [place] [address] Phone Care Team Providers Care Parts Coordinator Name Role Phone Keily Arango D.O., PP Unavailable CCM Unavailable Summary Purpose Interface Exchange Insurance Providers Payer name Policy type / Coverage type Covered republican ID Effective Begin Date Effective End Date [employer] [facility] Medicaid [id number] 2018 Unknown Family History Family History data not found Social History Social History Element Codes Description Effective Dates Marital status Unknown S halima 08/21/2015 Employment Unknown Curre ntly unemployed Physically handicapped 08/21/[address]: 210624711 Has never smoked or chewed tobacco 08/21/[address]: 654448277 Never drinks alcohol 08/21/2015 Allergies, Adverse Reactions, [...] Date Stop Date Sta tus Fill Instructions Ciprodex 0.3 %-0.1 % ear drops,suspension RxNorm: 399378 DROP(S) 4 DROP(S) ATILIO C BID 03/08/2019 04/04/2019 Ac tive oxcarbazepine 300 mg /5 mL (60 mg/mL) oral suspension RxNorm: 469157 15 Milliliter(s) PO BID 03/07/2019 09/02/2019 Active Macrobid 100 mg capsule RxNorm: 034094 1 Capsule(s) PO BID 02/20/2019 03/01/2019 Inactive Macrobid 100 mg capsule RxNorm: 536966 1 Capsule(s) PO BID 02/20/2019 02/19/2019 Inactive meclizine 12.5 mg ta blet RxNorm: 154406 1 Tablet(s) PO TID as needed 02/06/2019 03/07/2019 In active change in quantity Ciprodex 0.3 %-0.1 % ear drops,suspension RxNorm: 729199 DROP(S) 4 DROP(S) ATILIO C BID 01/30/2019 02/12/2019 Inactive diazepam 10 mg tablet RxNorm: 231313 1 Tablet(s) PO QHS as needed 01/27/2019 03/27/2019 Active sertraline 50 mg tablet RxNorm: 093469 1 Tablet(s) PO QHS 12/29/2018 06/26/2019 Active famotidine 20 mg tablet RxNorm: 425359 1 Tablet(s) PO QHS 12/29/2018 06/26/2019 Active Ciprodex 0.3 %-0.1 % ear drops,suspension RxNorm: 022850 DROP(S) 4 DROP(S) ATILIO C BID 12/14/2018 12/27/2018 Inactive Generlac 10 gram/15 mL oral solution RxNorm: 499838 15 Milliliter(s) PO T WO TO THREE TIMES DAILY 12/06/2018 06/03/2019 Active Protonix 40 mg table t,delayed release RxNorm: 374411 1 Tablet(s) PO or per feeding tube BID 11/24/2018 05/22/2019 Active meclizine 12.5 mg ta blet RxNorm: 300422 1 Tablet(s) PO TID as needed 11/11/2018 02/06/2019 In active change in quantity Ciprodex 0.3 %-0.1 % ear drops,suspension RxNorm: 388794 DROP(S) 4 DROP(S) ATILIO C BID 11/08/2018 11/21/2018 Inactive diazepam 10 mg tablet RxNorm: 964644 1 Tablet(s) PO QHS as needed 10/21/2018 11/19/2018 Inactive Generlac 10 gram/15 mL oral solution RxNorm: 822503 Milliliter(s) 15 MILL ILITER(S) PO TWO TO THREE TIMES DAILY 10/07/2018 11/05/2018 Inactive Ciprodex 0.3 %-0.1 % ear drops,suspension RxNorm: 112721 DROP(S) DROP(S) 4 JENELLE P(S) OTIC BID 08/26/2018 09/08/2018 Inactive meclizine 12.5 mg ta blet RxNorm: 680490 1 TABLET(S) PO TID NEEDED 07/25/2018 10/22/2018 In active change in quantity oxcarbazepine 300 mg /5 mL (60 mg/mL) oral suspension RxNorm: 298436 15 Milliliter(s) PO BID 07/08/2018 07/07/2018 Inactive oxcarbazepine 300 mg /5 mL (60 mg/mL) oral suspension RxNorm: 963497 15 Milliliter(s) PO BID 07/08/2018 01/03/2019 Inactive sertraline 50 mg tablet RxNorm: 376698 1 TABLET(S) PO QHS 07/06/2018 12/28/2018 Inactive Singulair 10 mg tablet RxNorm: 998597 1 TABLET(S) PO QD 06/24/2018 03/20/2019 Active Ciprodex 0.3 %-0.1 % ear drops,suspension RxNorm: 652665 DROP(S) 4 DROP(S) ATILIO C BID 06/20/2018 06/19/2018 Inactive Ciprodex 0.3 %-0.1 % ear drops,suspension RxNorm: 019865 Drop(s) DROP(S) 4 JENELLE P(S) OTIC BID 06/20/2018 07/03/2018 Inactive cefdinir 250 mg/5 mL oral suspension RxNorm: 480925 12 Milliliter(s) PO Q D though PEG tube 06/13/2018 06/22/2018 Inactive famotidine 20 mg tablet RxNorm: 245857 1 Tablet(s) PO QHS 05/31/2018 11/26/2018 Inactive famotidine 40 mg/5 m L (8 mg/mL) oral suspension RxNorm: 156637 2.5 Milliliter(s) PO QHS 04/29/2018 06/12/2018 Inactive meclizine 12.5 mg ta blet RxNorm: 863624 1 TABLET(S) PO TID NEEDED 04/25/2018 07/23/2018 In active change in quantity Generlac 10 gram/15 mL oral solution RxNorm: 147403 Milliliter(s) 15 MILL ILITER(S) PO TWO TO THREE TIMES DAILY 04/04/2018 05/03/2018 Inactive Ciprodex 0.3 %-0.1 % ear drops,suspension RxNorm: 716208 Drop(s) 4 DROP(S) ATILIO C BID 04/04/2018 04/17/2018 Inactive diazepam 10 mg tablet RxNorm: 657462 1 Tablet(s) PO QHS as needed 04/04/2018 05/03/2018 Inactive famotidine 40 mg/5 m L (8 mg/mL) oral suspension RxNorm: 762869 2.5 Milliliter(s) PO QHS 04/04/2018 04/28/2018 Inactive Generlac 10 gram/15 mL oral solution RxNorm: 979869 15 MILLILITER(S) PO T WO TO THREE TIMES DAILY 03/24/2018 04/03/2018 Inactive Singulair 10 mg tablet RxNorm: 029249 1 TABLET(S) PO QD 03/18/2018 06/15/2018 Inactive Ciprodex 0.3 %-0.1 % ear drops,suspension RxNorm: 422299 Drop(s) 4 DROP(S) ATILIO C BID 03/08/2018 03/21/2018 Inactive Generlac 10 gram/15 mL oral solution RxNorm: 995210 15 Milliliter(s) PO t wo to three times daily 03/03/2018 03/23/2018 Inactive meclizine 12.5 mg ta blet RxNorm: 427678 1 Tablet(s) PO TID as needed 02/10/2018 04/10/2018 In active change in quantity meclizine 12.5 mg ta blet RxNorm: 238943 1 Tablet(s) PO BID as needed 02/07/2018 02/09/2018 In active change in quantity Ciprodex 0.3 %-0.1 % ear drops,suspension RxNorm: 956113 Drop(s) 4 DROP(S) ATILIO C BID 02/02/2018 03/08/2018 Inactive sertraline 50 mg tablet RxNorm: 461907 1 TABLET(S) PO QHS 01/25/2018 07/05/2018 Inactive Zithromax 200 mg/5 m L oral suspension RxNorm: 907812 12.5 Milliliter(s) PO QD 12/31/2017 01/04/2018 In active Pepcid 20 mg tablet RxNorm: 931355 TABLET(S) 1 TABLET(S) PO QHS 12/28/2017 04/29/2018 Inactive famotidine 40 mg/5 m L (8 mg/mL) oral suspension RxNorm: 764122 2.5 Milliliter(s) PO QHS 12/28/2017 12/27/2017 Inactive famotidine 40 mg/5 m L (8 mg/mL) oral suspension RxNorm: 508877 2.5 Milliliter(s) PO QHS 12/28/2017 04/03/2018 Inactive Ciprodex 0.3 %-0.1 % ear drops,suspension RxNorm: 938968 Drop(s) 4 DROP(S) ATILIO C BID 12/27/2017 02/02/2018 Inactive meclizine 12.5 mg ta blet RxNorm: 380036 1 Tablet(s) PO BID as needed 12/23/2017 02/06/2018 In active change in quantity Protonix 40 mg table t,delayed release RxNorm: 924123 1 Tablet(s) PO or per feeding tube BID 12/16/2017 07/13/2018 Inactive oxcarbazepine 300 mg /5 mL (60 mg/mL) oral suspension RxNorm: 931934 15 Milliliter(s) PO BID 12/16/2017 07/08/2018 Inactive meclizine 12.5 mg ta blet RxNorm: 045645 1 Tablet(s) PO BID as needed 12/15/2017 02/07/2018 In active change in quantity Pepcid 40 mg/5 mL (8 mg/mL) oral suspension RxNorm: 338273 5 Milliliter(s) PO QH S to replace nighttime pantoprazole dose 12/14/2017 12/27/2017 Inactive meclizine 12.5 mg ta blet RxNorm: 859982 1 Tablet(s) PO BID as needed 12/13/2017 12/23/2017 In active diazepam 10 mg tablet RxNorm: 565529 1 Tablet(s) PO QHS as needed 12/02/2017 03/01/2018 Inactive prednisolone 15 mg/5 mL oral solution RxNorm: 012482 5 Milliliter(s) PO BI D for 3 days then 5ml daily for 3 days then 2.5ml daily for 3 days 12/02/2017 12/13/2017 Inactive sertraline 50 mg tablet RxNorm: 059397 1 Tablet(s) PO QHS 11/04/2017 01/24/2018 Inactive Ciprodex 0.3 %-0.1 % ear drops,suspension RxNorm: 678724 Drop(s) 4 DROP(S) ATILIO C BID 10/18/2017 10/31/2017 Inactive Ciprodex 0.3 %-0.1 % ear drops,suspension RxNorm: 269474 Drop(s) 4 DROP(S) ATIILO C BID 10/18/2017 12/27/2017 Inactive Singulair 10 mg tablet RxNorm: 981033 1 Tablet(s) PO QD 09/30/2017 03/17/2018 Inactive diazepam 5 mg/5 mL ( 1 mg/mL) oral solution RxNorm: 717941 2.5 Milliliter(s) PO QD give additional 5 mg dose if seizure occurs 09/17/2017 No Stop Date Active Bactrim DS 800 mg-16 0 mg tablet RxNorm: 625012 1 Tablet(s) PO BID 09/17/2017 09/23/2017 Inactive Ciprodex 0.3 %-0.1 % ear drops,suspension RxNorm: 464391 4 DROP(S) OTIC BID 09/13/2017 10/18/2017 In active cefdinir 250 mg/5 mL oral suspension RxNorm: 126135 12 Milliliter(s) PO Q D though PEG tube 08/06/2017 08/15/2017 Inactive sertraline 50 mg tablet RxNorm: 220771 1 Tablet(s) PO QHS 08/02/2017 11/04/2017 Inactive Ciprodex 0.3 %-0.1 % ear drops,suspension RxNorm: 733065 4 DROP(S) OTIC BID 07/22/2017 08/11/2017 In active Singulair 10 mg tablet RxNorm: 111218 1 Tablet(s) PO QD 06/30/2017 09/30/2017 Inactive diazepam 10 mg tablet RxNorm: 622482 TAKE 1 TABLET BY MOUTH EVERY NIGHT AT [facility] NEEDED 06/04/2017 07/03/2017 Inactive oxcarbazepine 300 mg /5 mL (60 mg/mL) oral suspension RxNorm: 302643 15 MILLILITER(S) PO BID 05/03/2017 12/16/2017 Inactive sertraline 50 mg tablet RxNorm: 746841 1 Tablet(s) PO QHS 05/03/2017 08/02/2017 Inactive Protonix 40 mg table t,delayed release RxNorm: 257808 1 Tablet(s) PO or per feeding tube BID 04/26/2017 12/16/2017 Inactive Ciprodex 0.3 %-0.1 % ear drops,suspension RxNorm: 504868 4 DROP(S) OTIC BID 04/26/2017 05/23/2017 In active Generlac 10 gram/15 mL oral solution RxNorm: 656851 Milliliter(s) TAKE 15 ML BY MOUTH TWO-THREE TIMES DAILY 04/08/2017 03/03/2018 Inactive Singulair 10 mg tablet RxNorm: 509292 1 Tablet(s) PO QD 03/03/2017 06/30/2017 Inactive diazepam 10 mg tablet RxNorm: 595548 1 Tablet(s) PO QHS as needed 02/15/2017 06/04/2017 Inactive Singulair 10 mg tablet RxNorm: 302072 1 Tablet(s) PO QD 12/01/2016 03/03/2017 Inactive Diflucan 150 mg tablet RxNorm: 703447 Tablet(s) Give 1 tab PO now and then rep eat dose in 5 days 11/10/2016 03/31/2017 Inactive Zithromax 200 mg/5 m L oral suspension RxNorm: 024539 12.5 Milliliter(s) PO QD 11/10/2016 11/14/2016 In active Singulair 10 mg tablet RxNorm: 840753 TAKE 1 TABLET BY MOUTH ONCE DAILY 11/02/2016 12/01/2016 In active diazepam 10 mg tablet RxNorm: 655464 TAKE 1 TABLET BY MOUTH EVERY NIGHT AT [facility] NEEDED 10/21/2016 11/19/2016 Inactive sertraline 50 mg tablet RxNorm: 576049 1 Tablet(s) PO QHS 10/12/2016 01/09/2017 Inactive fluconazole 100 mg t ablet RxNorm: 947895 1 Tablet(s) PO QD 09/22/2016 09/24/2016 Inactive fluconazole 100 mg t ablet RxNorm: 680970 1 Tablet(s) PO QD 09/22/2016 09/21/2016 Inactive Bactrim DS 800 mg-16 0 mg tablet RxNorm: 740385 1 Tablet(s) PO BID 09/10/2016 09/09/2016 Inactive Bactrim DS 800 mg-16 0 mg tablet RxNorm: 961459 1 Tablet(s) PO BID 09/10/2016 09/16/2016 Inactive oxcarbazepine 300 mg /5 mL (60 mg/mL) oral suspension RxNorm: 688778 15 Milliliter(s) PO BID 09/07/2016 03/05/2017 Inactive sertraline 50 mg tablet RxNorm: 873398 1 Tablet(s) PO QHS 07/06/2016 10/03/2016 Inactive Pepcid 20 mg tablet RxNorm: 326976 Tablet(s) 1 TABLET(S) PO QHS 07/06/2016 03/08/2017 Inactive sertraline 50 mg tablet RxNorm: 288116 1 Tablet(s) PO QHS 06/08/2016 05/03/2017 Inactive Generlac 10 gram/15 mL oral solution RxNorm: 663192 Milliliter(s) TAKE 15 ML BY MOUTH TWO-THREE TIMES DAILY 06/08/2016 09/08/2016 Inactive Pepcid 20 mg tablet RxNorm: 282168 1 TABLET(S) PO QHS 06/04/2016 07/05/2016 Inactive fluconazole 100 mg t ablet RxNorm: 499461 1 Tablet(s) QD throug h PEG tube 05/13/2016 12/01/2017 In active Diflucan 150 mg tablet RxNorm: 260831 Give 1 tab PO now and then repeat dose i n 5 days 03/19/2016 11/09/2016 Inactive ceftriaxone 1 gram s olution for injection RxNorm: 8790063 1 Gram(s) IM QD Wedu and Wednesday03/19/2016 11/09/2016 Inactive lidocaine 10 mg/mL ( 1 %) injection solution RxNorm: 7409413 Use as directed to reconstitute Rocephin when needed 03/19/2016 12/13/2017 Inactive Generlac 10 gram/15 mL oral solution RxNorm: 167869 TAKE 15 ML BY MOUTH T WO-THREE TIMES DAILY 03/19/2016 06/07/2016 Inactive oxcarbazepine 300 mg /5 mL oral suspension RxNorm: 792592 15 Milliliter(s) PO B ID 03/13/2016 09/07/2016 In active Ciprodex 0.3 %-0.1 % ear drops,suspension RxNorm: 761847 4 DROP(S) OTIC BID 03/09/2016 03/15/2016 In active cefdinir 250 mg/5 mL oral suspension RxNorm: 874142 11.75 Milliliter(s) P O QD though PEG tube 03/02/2016 03/08/2016 Inactive cefdinir 250 mg/5 mL oral suspension RxNorm: 228950 11.75 Milliliter(s) P O QD though PEG tube 02/24/2016 03/01/2016 Inactive cefdinir 250 mg/5 mL oral suspension RxNorm: 390565 11.75 Milliliter(s) P O QD though PEG tube 02/24/2016 02/23/2016 Inactive Ciprodex 0.3 %-0.1 % ear drops,suspension RxNorm: 935805 4 Drop(s) OTIC BID 02/24/2016 03/01/2016 In active Generlac 10 gram/15 mL oral solution RxNorm: 863159 TAKE 15 ML BY MOUTH T WICE DAILY 02/17/2016 03/18/2016 Inactive Generlac 10 gram/15 mL oral solution RxNorm: 313664 15 Milliliter(s) PO B ID 01/23/2016 02/16/2016 In active Pepcid 20 mg tablet RxNorm: 059698 1 TABLET(S) PO QHS 01/13/2016 06/03/2016 Inactive Ciprodex 0.3 %-0.1 % ear drops,suspension RxNorm: 256883 4 Drop(s) OTIC BID 12/23/2015 12/29/2015 In active sertraline 50 mg tablet RxNorm: 108329 1 Tablet(s) PO QHS 12/16/2015 06/07/2016 Inactive Zithromax 500 mg tablet RxNorm: 670816 1 Tablet(s) PO QD 12/16/2015 12/22/2015 Inactive Pepcid 20 mg tablet RxNorm: 413194 1 Tablet(s) PO QHS 12/16/2015 01/12/2016 Inactive Zithromax 500 mg tablet RxNorm: 269055 1 Tablet(s) PO QD 11/12/2015 11/18/2015 Inactive Singulair 10 mg tablet RxNorm: 892453 1 Tablet(s) PO BID 10/16/2015 11/11/2015 Inactive diazepam 10 mg tablet RxNorm: 703490 1 Tablet(s) PO QHS 10/07/2015 10/21/2016 Inactive diazepam 10 mg tablet RxNorm: 217204 1 Tablet(s) PO QHS 10/07/2015 10/06/2015 Inactive fexofenadine 30 mg/5 mL oral suspension RxNorm: 405973 10 Milliliter(s) PO o ne to two times daily PRN allergies 09/20/2015 12/15/2015 Inactive ceftriaxone 1 gram s olution for injection RxNorm: 9046043 1 Gram(s) IM QD 09/20/2015 09/21/2015 In active Ciprodex 0.3 %-0.1 % ear drops,suspension RxNorm: 857807 4 Drop(s) OTIC BID 09/20/2015 10/03/2015 In active Protonix 40 mg table t,delayed release RxNorm: 837158 1 Tablet(s) PO or per feeding tube BID 08/21/2015 12/18/2015 Inactive Carafate 100 mg/mL o ral suspension RxNorm: 492720 10 Milliliter(s) Misc ellaneous per feeding tube AC & HS 08/21/2015 09/19/2015 Inactive Zyrtec 10 mg tablet RxNorm: 5573183 1 Tablet(s) PO QD No Start Date Active diazepam 20 mg recta l kit RxNorm: 201241 RTL as needed No Start Date Active Lortab Elixir 10 mg- 300 mg/15 mL oral solution RxNorm: 9527843 8 PO Q6-8H as needed No Start Date Active ondansetron HCl 4 mg /5 mL oral solution RxNorm: 558779 10 Milliliter(s) PO a s needed and through tube No Start Date Active sertraline 50 mg tablet RxNorm: 837070 1 Tablet(s) PO QD No Start Date 12/15/2015 Inactive Brittany 180 mg tablet RxNorm: 686614 1 Tablet(s) PO QD No Start Date 06/12/2018 Inactive Generlac 10 gram/15 mL oral solution RxNorm: 553177 15 Milliliter(s) PO B ID No Start Date 01/22/2016 Inactive oxcarbazepine 300 mg /5 mL oral suspension RxNorm: 688092 13.5 Milliliter(s) PO QAM and 15ml in the evening No Start Date 12/15/2015 Inactive Singulair 10 mg tablet RxNorm: 464168 1 Tablet(s) PO QD No Start Date 11/30/2016 Inactive meclizine 12.5 mg ta blet RxNorm: 617283 1 Tablet(s) PO TID as needed for dizziness No Start Date 09/13/2017 Inactive meclizine 12.5 mg ta blet RxNorm: 637208 1 Tablet(s) PO BID No Start Date 12/12/2017 Inactive fluconazole 100 mg t ablet RxNorm: 996512 1 Tablet(s) QD throug h PEG tube No Start Date 05/12/2016 Inactive Flomax 0.4 mg capsule RxNorm: 730323 1 Capsule(s) PO QD No Start Date 06/12/2018 Inactive diazepam 10 mg tablet RxNorm: 212798 1 Tablet(s) PO QHS as needed No Start Date 02/14/2017 Inactive Generlac 10 gram/15 mL oral solution RxNorm: 084883 15 Milliliter(s) PO t wo to three times daily No Start Date 03/02/2018 Inactive oxcarbazepine 300 mg /5 mL oral suspension RxNorm: 100431 15 Milliliter(s) PO B ID No Start [...] CPT-4: J0696 03/19/2016 THER/PROPH/DIAG INJ SC/IM CPT-4: 32992 03/19/2016 DEXAMETHASONE SODIUM PHOS CPT-4: J1100 11/12/2015 THER/PROPH/DIAG INJ SC/IM CPT-4: 67677 11/12/2015 CEFTRIAXONE SODIUM I NJECTION CPT-4: J0696 09/20/2015 THER/PROPH/DIAG INJ SC/IM CPT-4: 91061 09/20/2015 THER/PROPH/DIAG INJ SC/IM CPT-4: 71945 09/10/2015 METHYLPREDNISOLONE 4 0 MG INJ CPT-4: [...] 1: 114/70 Code: 8480-6 BMI: 23.1 Code: 16347-7 Heart Rate 1: 80 bpm Height: 4'6" [...] solid yesterday evening anxiety Quality agitation 03/23/2016 Film 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 thinks she may be having incre ased [...] severe 08/21/2015 None developmental delay Significant Medi [facility] Conditions seizure disorder 08/21/2015 None Advance Directives No Advance Directive data Encounters Encounter Performer Loca tion Codes Date ([id number]) OFFICE/OUTPA TIENT VISIT EST Diagnosis: Irritability and anger[ICD10: R45.4] Nataliia ARANGO [facility] CPT-4: 21383 11/25/2018 ([id number]) OFFICE/OUTPA TIENT VISIT EST Diagnosis: Acute suppurative otitis media without spontaneous rupture of ear drum, bilateral[ICD10: H66.003] [facility]ou [facility] CPT-4: 08260 06/13/2018 ([id number]) OFFICE/OUTPA TIENT VISIT EST Diagnosis: Other fatigue[ICD10: R53.83] Diagnosis: Anuria and oliguria[ICD10: R34] Diagnosis: Acute gastritis without bleeding[ICD10: K29.00] Fatou GILBERT DO [facility] CPT-4: 01995 01/04/2018 ([id number]) OFFICE/OUTPA TIENT VISIT EST Diagnosis: Acute bronchitis, unspecified[ICD10: J20.9] Fatou GILBERT DO [facility] CPT-4: 42109 12/31/2017 ([id number]) PREV VISIT E ST AGE 18-39 Diagnosis: Encounter for general adult medical examination without abnormal findings[ICD10: Z00.00] Diagnosis: Severe intellectual disabilities[ICD10: F72] Diagnosis: Allergic rhinitis due to pollen[ICD10: J30.1] Diagnosis: Epilepsy, unspecified, intractable, without status epilepticus[ICD10: G40.919] Diagnosis: Gastro-esophageal reflux disease without esophagitis[ICD10: K21.9] Keily ARANGO [facility] CPT-4: 25577 12/14/2017 ([id number]) OFFICE/OUTPA TIENT VISIT EST Diagnosis: Allergic rhinitis due to pollen[ICD10: J30.1] Diagnosis: Epilepsy, unspecified, intractable, without status epilepticus[ICD10: G40.919] Keily ARANGO DO [facility] CPT-4: 02232 12/02/2017 ([id number]) OFFICE/OUTPA TIENT VISIT EST Diagnosis: Other allergic rhinitis[ICD10: J30.89] Fatou GILBERT DO [facility] CPT-4: 53377 10/12/2017 OFFICE/OUTPATIENT SIT EST Diagnosis: Acute suppurative otitis media without spontaneous rupture of ear drum, recurrent, left ear[ICD10: H66.005] Diagnosis: Epilepsy, unspecified, intractable, without status epilepticus[ICD10: G40.919] Diagnosis: Hesitancy of micturition[ICD10: R39.11] [facility] CPT-4: 89545 09/17/2017 OFFICE/OUTPATIENT SIT EST Diagnosis: Otitis media, unspecified, left ear[ICD10: H66.92] Fatou CASTILLO [facility] CPT-4: 03632 08/06/2017 ([id number]) OFFICE/OUTPA TIENT VISIT EST Diagnosis: Vertigo of central origin, 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.49] Diagnosis: Dizziness and giddiness[ICD10: R42] Keily Conchita [facility] CPT-4: 56919 04/01/2017 OFFICE/OUTPATIENT SIT EST Diagnosis: Vomiting, unspecified[ICD10: R11.10] Diagnosis: 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)[ICD10: K56.5] Diagnosis: Personal history of urinary calculi[ICD10: Z87.442] Emely Hdz KEILY [facility] CPT-4: 87749 03/01/2017 ([id number]) OFFICE/OUTPA TIENT VISIT EST Diagnosis: Allergic rhinitis due to pollen[ICD10: J30.1] Diagnosis: Acute and subacute allergic otitis media (mucoid) (sanguinous) (serous), left ear[ICD10: H65.112] Keily Conchita RIOSLINE [facility] CPT-[facility]: 57369 11/10/2016 ([id number]) OFFICE/OUTPA TIENT VISIT EST Diagnosis: 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] Diagnosis: Unspecified ovarian cyst, right side[ICD10: N83.201] Diagnosis: Cyst of kidney, 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] Keily Conchita RIOSLINE Diamante [facility] CPT-4: 48270 08/13/2016 ([id number]) OFFICE/OUTPA TIENT VISIT EST Diagnosis: Rash and other nonspecific skin eruption[ICD10: R21] Aziza LINARES [facility] CPT-4: 10162 03/27/2016 ([id number]) OFFICE/OUTPA TIENT VISIT EST Diagnosis: Urinary tract infection, site not specified[ICD10: N39.0] Keily ARANGO [facility] CPT-4: 17928 03/23/2016 ([id number]) OFFICE/OUTPA TIENT VISIT EST Diagnosis: Retention of urine, unspecified[ICD10: R33.9] Diagnosis: Dysuria[ICD10: R30.0] Diagnosis: Constipation, unspecified[ICD10: K59.00] Aziza ARANGO [facility] CPT-4: 10849 03/19/2016 ([id number]) OFFICE/OUTPA TIENT VISIT EST Diagnosis: Acute sinusitis, unspecified[ICD10: J01.90] Keily COONEY [facility] CPT-4: 72527 03/02/2016 OFFICE/OUTPATIENT SIT EST Diagnosis: Other fatigue[ICD10: R53.83] Diagnosis: Retention of urine, unspecified[ICD10: R33.9] Diagnosis: Dysuria[ICD10: R30.0] Diagnosis: Generalized abdominal pain[ICD10: R10.84] 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] Aziza ARANGO [facility] CPT-4: 88886 02/24/2016 ([id number]) OFFICE/OUTPA TIENT VISIT EST Diagnosis: Chronic mucoid otitis media, right ear[ICD10: H65.31] Diagnosis: Allergic rhinitis, unspecified[ICD10: J30.9] Diagnosis: 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] Keily ARANGO [facility] CPT-4: 44296 12/16/2015 ([id number]) OFFICE/OUTPA TIENT VISIT EST Diagnosis: Allergic rhinitis, unspecified[ICD10: J30.9] Diagnosis: Acute recurrent sinusitis, unspecified[ICD10: J01.91] Keily COONEY [facility] CPT-4: 40291 11/12/2015 ([id number]) OFFICE/OUTPA TIENT VISIT EST Diagnosis: Other seasonal allergic rhinitis[ICD10: J30.2] Diagnosis: Nausea with vomiting, unspecified[ICD10: R11.2] Diagnosis: Epigastric pain[ICD10: R10.13] Aziza ARANGO [facility] CPT-4: 58909 10/16/2015 OFFICE/OUTPATIENT SIT EST Diagnosis: Encounter for follow-up examination after completed treatment for conditions other than malignant neoplasm[ICD10: Z09] Diagnosis: Generalized abdominal pain[ICD10: R10.84] Keily COONEY [facility] CPT-4: 97152 09/23/2015 ([id number]) OFFICE/OUTPA TIENT VISIT EST Diagnosis: Otitis media, unspecified, right ear[ICD10: H66.91] Diagnosis: Constipation, unspecified[ICD10: K59.00] Diagnosis: Allergic rhinitis, unspecified[ICD10: J30.9] Aziza AARNGO [facility] CPT-4: 62599 09/20/2015 OFFICE/OUTPATIENT SIT EST Diagnosis: Allergic rhinitis, unspecified[ICD10: J30.9] Diagnosis: Unspecified perforation of tympanic membrane, right ear[ICD10: H72.91] Bibiana ARANGO [employer] [facility] CPT-4: 70891 09/10/2015 OFFICE/OUTPATIENT SIT NEW Diagnosis: Epilepsy, unspecified, intractable, without status epilepticus[ICD10: G40.919] Diagnosis: Gastric ulcer, unspecified as acute or chronic, without hemorrhage or perforation[ICD10: K25.9] Diagnosis: Severe intellectual disabilities[ICD10: F72] Keily COONEY [facility] CPT-4: 49031 08/21/2015 Plan of Care Planned Activity Notes [...] : R45.4 11/25/2018 Appointment: Nataliia Hsieh [address] [place], [place] [id number] ACUTE ILLNESS 11/25/2018 Visit Diagnosis Plan: Acute suppurative otitis media without spontaneous rupture of ear drum, bilateral Discussion: cefdinir for 10 days. if worsening symptoms later this week, call clinic. push fluids and tylenol/ibuprofen prn pain or fever. ICD-9 : 382.00 ICD-10 : H66.003 06/13/2018 Appointment: Fatou Onofre [address] [place] [address] ACUTE ILLNESS 06/13/2018 Visit Diagnosis Plan: Anuria [...] ICD-10 : R53.83 01/04/2018 Appointment: Fatou Onofre [address] [place] [address] ACUTE ILLNESS 01/04/2018 Patient Education: Patient Medication Summary Completed 01/04/2018 Visit Diagnosis Plan: Acute bronchitis, unspecified Discussion: zithromax prescribed to take as directed. continue with allergy meds including flonase to help dry congestion. call office next week if new or worsening symptoms. ICD-9 : 466.0 ICD-10 : J20.9 12/31/2017 Appointment: Fatou Onofre [address] [place] [address] ACUTE ILLNESS 12/31/2017 Patient Education: Patient Medication [...] G40.919 12/14/2017 Visit Diagnosis Plan: Encounter for [facility] medical examination without abnormal findings Discussion: Had recent lab done Follow Up: 3 months ICD-9 : V70.9 ICD-10 : Z00.00 12/14/2017 Appointment: Keily Arango WPtel: [address] [place] [address] CHECK UP 12/14/2017 Patient Education: Patient Medication [...] : J30.1 12/02/2017 Appointment: Keily Arango WPtel: [facility] [place] [address] ACUTE ILLNESS 12/02/2017 Patient Education: Patient Medication Summary Completed 12/02/2017 Visit Diagnosis Plan: Other allergic rhinitis Discussion: symptoms most likely caused from allergies. patient sent to hospital for decadron injection. instructed to restart patient's flonase at home. if new or worsening symptoms, call or rtc. ICD-9 : 477.8 ICD-10 : J30.89 10/12/2017 Appointment: Fatou Onofre [address] [place] [address] ACUTE ILLNESS 10/12/2017 Patient Education: Patient Medication [...] : G40.919 09/17/2017 Appointment: Fatou Onofre [address] [place] [address] ACUTE ILLNESS 09/17/2017 Patient Education: Patient Medication Summary Completed 09/17/2017 Visit Diagnosis Plan: Otitis media, unspecified, left ear Discussion: cefdinir prescribed daily for 10 days. instructed to administer tylenol/ibuprofen for pain or fever. if no improvement, or worsening symptoms, call or rtc. ICD-9 : 380.14 ICD-10 : H66.92 08/06/2017 Appointment: Fatou Onofre [address] [place], [place] [id number] ACUTE ILLNESS 08/06/2017 Patient Education: Patient Medication [...] H81.49 04/01/2017 Appointment: Keily Arango WPtel: [facility] FOLLOW UP 04/01/2017 Patient Education: Patient Medication Summary Completed 04/01/2017 Patient Education: Patient Medication Summary Completed 03/09/2017 Care Plan: CT HEAD/BRAIN W/O DYE [facility] : 84930-4 Pending 03/09/2017 Visit Plan: It's difficult to [...] medications indicated. 03/01/2017 Appointment: Emely Hdz WPtel: [facility] [place] [address] ACUTE ILLNESS 03/01/2017 Patient Education: Patient Medication Summary Completed 03/01/2017 Patient Education: Patient Medication Summary Completed 12/17/2016 Visit Diagnosis Plan: Allergic rhinitis due to pollen Discussion: Continue zyrtec/singulair ICD-9 : 477.9 ICD-10 : J30.1 11/10/2016 Visit Diagnosis Plan: Acute and subacute allergic otitis media (mucoid) (sanguinous) (serous), left ear Discussion: Zithromax ICD-9 : 381.05 ICD-10 : H65.112 11/10/2016 Appointment: Keily Arango WPtel: [facility] [place] [place] [phone] ACUTE ILLNESS 11/10/2016 Patient Education: Patient Medication Summary Completed 11/10/2016 Patient Education: Patient Medication Summary Completed 09/07/2016 Care Plan: URINALYSIS AUTO W/O SCOPE LOINC : 66203-8 Pending 09/07/2016 Visit Diagnosis Plan: Cyst of [...] N83.201 08/13/2016 [facility]ment[phone] [facility]/12 confirmed-sp FOLLOW UP 08/13/2016 Patient Education: Patient Medication Summary Completed 08/13/2016 Patient Education: Patient Medication Summary Completed 05/19/2016 Care Plan: X-RAY EXAM OF FOOT left foot LOINC : 27000-0 Pending 05/19/2016 Visit Plan: Discussed with Dr Burton gilbert CBC to be drawn Order sent to Will call with results 03/27/2016 Visit Plan: Discussed with Dr Burton gilbert CBC to be drawn Order sent to Will call with results 03/27/2016 Appointment: Aziza Magallanes [address] [facility] ACUTE ILLNESS 03/27/2016 Patient Education: Patient Medication Summary Completed 03/27/2016 Visit Plan: Go for dose of rocephin 1gm IM today and tomorrow then done Diflucan 150mg x1 today Discussed with mom via phone about urology fwup--she will talk with her and let us know 03/23/2016 Appointment: [phone] 03/23 confirmed ~sl FOLLOW UP 03/23/2016 Patient Education: Patient Medication Summary Completed 03/23/2016 Visit Plan: Per Dr Arango, auraigh t cath for UA and culture today Ok to have a standing order for further UA needs at for straight cath Rocephin IM today and daily through Wednesday Mom has arranged a family friend that is an [employer] to give Wednesday and Sundays injections - rxs for rocephin and lido sent to [facility] and [facility]([employer] cannot order the lido in the qty [...] arranged a family friend that is an [employer] to give Wednesday and Sundays injections - [...] arranged a family friend that is an [employer] to give Wednesday and Sundays injections - [...] us know 03/19/2016 [facility]ment[facility] [facility] 03/19/2016 Patient Education: Patient Medication Summary Completed 03/19/2016 Visit Plan: 1 more week of cefdinir 03/02/2016 Appointment: Keily Arango WPtel: [address] [place], [place] [id number] 03/02 confirmed~sl WORK IN 03/02/2016 Patient Education: [...] mom back today with results 02/24/2016 Appointment: ElpidioAziza [address] [place], [place] [phone] ACUTE ILLNESS 02/24/2016 Patient Education: Patient Medication Summary Completed 02/24/2016 Care Plan: CHEST X-RAY 2VW FRONTAL&LATL LOINC : 54375-3 Pending 02/24/2016 Care Plan: X-RAY EXAM OF ABDOMEN LOINC : 40624-4 Pending 02/24/2016 Visit Plan: Repeat zithromax x1 wee k Ciprodex to right ear x1 week Add Pepcid q HS x2-4 weeks for total histamine blockade and for extra stomach protection while on zithromax 12/16/2015 Appointment: Keily Arango WPtel: [address] [place], [place] [phone] [place] 6/9 lm~sl 6/10 lm ~sl FOLLOW [...] Dexamethasone given 11/12/2015 Appointment: Keily Arango WPtel: [address] [place], [place] [phone] [place] 5/9 lm~sl 5/10 lm~sl 5/10 confirm-sp [...] for Belkys 10/16/2015 Appointment: [facility] [facility] [facility] 10/16/2015 Patient Education: Patient Medication Summary Completed 10/16/2015 Appointment: Aziza Magallanes [address] [place], [place] [id number] [place] canceled, feeling better CANCELED 10/03/2015 Visit Plan: No further abx needed [facility] and restart carafate Notify if abdominal pain worsens 09/23/2015 Appointment: [phone] 09/19 confirmed-sp FOLLOW UP 09/23/2015 Patient [...] done in the past. Order sent to [facility] since [facility] does not have [...] done in the past. Order sent to [facility] since [facility] does not have [...] try for now. 09/20/2015 Appointment: [facility] [facility] [facility] 09/20/2015 Patient Education: Patient [...] ear 09/10/2015 Appointment: Bibiana Garg [facility]Ptel[facility] [phone] [facility] [place] 09/08 confirmed-sp ACUTE ILLNESS 09/10/2015 Patient Education: Patient Medication Summary Completed 09/10/2015 Visit Plan: Increase Protonix to 40 mg po BID for 1month Continue carafate at q AC dosing for full month then wean off Jevity for 2 more days then advance diet if able Continue current meds 08/21/2015 Appointment: [facility]el[phone] [place] NEW PATIENT 08/21/2015 Patient Education: Patient Medication Summary Completed 08/21/2015 Instructions Comment . Depo Medrol 40mg/ Kenalog 40 mg IM today Resume Ciprodex otic gtts. bid to Rt. ear . Increase Protonix to 40mg po BID for 1month Continue carafate at q AC dosing for full month then wean off Jevity for 2 more days then advance diet if able Continue current meds . It's difficult to evaluate this patient [...] sent to Will call with results . Saline nasal flush es prn. Tylenol/Motrin prn headache. Notify if persists/symptoms worsens Dexamethasone given . Saline nasal flush es prn. Tylenol/Motrin prn headache. Notify if persists/symptoms worsens Dexamethasone given . Go for dose of kim ephin 1gm IM today and tomorrow then done Diflucan 150mg x1 today Discussed with mom via phone about urology fwup--she will talk with her and let us know . Depo Medrol 40mg/ Kenalog 40 mg IM today Resume Ciprodex otic gtts. bid to Rt. ear . Depo Medrol 40mg/ Kenalog 40 mg IM today Resume Ciprodex otic gtts. bid to Rt. ear . It's difficult to evaluate this patient [...] sent to Will call with results . Mom reports after discussion of patient [...] need seen if worsening . Repeat zithromax x 1 week Ciprodex to right ear x1 week Add Pepcid q HS x2-4 weeks for total histamine blockade and for extra stomach protection while on zithromax . Mom would prefer I M antibiotic [...] done in the past. Order sent to [facility] since [facility] does not have [...] further abx nee ded Go back [facility] days and restart carafate Notify if abdominal pain worsens . Per Dr Arango, st raight cath for UA and culture today Ok to have a standing order for further UA needs at for straight cath Rocephin IM today and daily through Wednesday Mom has arranged a family friend that is an [employer] to give Wednesday and Sundays injections - [...] let us know . Per Dr Arango raight cath for UA and culture today Ok to have a standing order for further UA needs at for straight cath Rocephin IM today and daily through Wednesday Mom has arranged a family friend that is an [employer] to give Wednesday and Sundays injections - [...] let us know . [facility] Ok to have a standing order for further UA needs at for straight cath Rocephin IM today and daily through Wednesday Mom has arranged a family friend that is an [employer] to give Wednesday and Sundays injections - [...] . 1 more week of cef dinir . Mom reports after discussion of patient [...] done in the past. Order sent to [facility] since [facility] does not have in stock. Recheck [...]
--- OUTSIDE RECORDS SUMMARY | 2019-11-10 19:49 | XMS REPORT | CCD ---
Author Author Belkys Arango D.O. Organization KEILY ARANGO DO [facility] Address [address] [place] [address] Phone Care Team Providers Care Intake Specialist Name Role Phone Keily Arango D.O., PP Unavailable CCM Unavailable Summary Purpose Interface Exchange Insurance Providers Payer name Policy type / Coverage type Covered libertarian ID Effective Begin Date Effective End Date [employer] [facility] [place] Medicaid [id number] 2018 Unknown Family History Family History data not found Social History Social History Element Codes Description Effective Dates Marital status Unknown S halima 08/21/2015 Employment Unknown Curre ntly unemployed Physically handicapped 08/21/[address]: 911699966 Has never smoked or chewed tobacco 08/21/[address]: 756965204 Never drinks alcohol 08/21/2015 Allergies, Adverse Reactions, [...] Date Stop Date Sta tus Fill Instructions oxcarbazepine 300 mg /5 mL (60 mg/mL) oral suspension RxNorm: 357148 15 Milliliter(s) PO BID 03/07/2019 09/02/2019 Active Macrobid 100 mg capsule RxNorm: 526444 1 Capsule(s) PO BID 02/20/2019 03/01/2019 Inactive Macrobid 100 mg capsule RxNorm: 312273 1 Capsule(s) PO BID 02/20/2019 02/19/2019 Inactive meclizine 12.5 mg ta blet RxNorm: 276767 1 Tablet(s) PO TID as needed 02/06/2019 03/07/2019 In active change in quantity Ciprodex 0.3 %-0.1 % ear drops,suspension RxNorm: 214221 DROP(S) 4 DROP(S) ATILIO C BID 01/30/2019 02/12/2019 Inactive diazepam 10 mg tablet RxNorm: 677344 1 Tablet(s) PO QHS as needed 01/27/2019 03/27/2019 Active sertraline 50 mg tablet RxNorm: 824210 1 Tablet(s) PO QHS 12/29/2018 06/26/2019 Active famotidine 20 mg tablet RxNorm: 402267 1 Tablet(s) PO QHS 12/29/2018 06/26/2019 Active Ciprodex 0.3 %-0.1 % ear drops,suspension RxNorm: 683639 DROP(S) 4 DROP(S) ATILIO C BID 12/14/2018 12/27/2018 Inactive Generlac 10 gram/15 mL oral solution RxNorm: 940438 15 Milliliter(s) PO T WO TO THREE TIMES DAILY 12/06/2018 06/03/2019 Active Protonix 40 mg table t,delayed release RxNorm: 461726 1 Tablet(s) PO or per feeding tube BID 11/24/2018 05/22/2019 Active meclizine 12.5 mg ta blet RxNorm: 815563 1 Tablet(s) PO TID as needed 11/11/2018 02/06/2019 In active change in quantity Ciprodex 0.3 %-0.1 % ear drops,suspension RxNorm: 912459 DROP(S) 4 DROP(S) ATILIO C BID 11/08/2018 11/21/2018 Inactive diazepam 10 mg tablet RxNorm: 552517 1 Tablet(s) PO QHS as needed 10/21/2018 11/19/2018 Inactive Generlac 10 gram/15 mL oral solution RxNorm: 626099 Milliliter(s) 15 MILL ILITER(S) PO TWO TO THREE TIMES DAILY 10/07/2018 11/05/2018 Inactive Ciprodex 0.3 %-0.1 % ear drops,suspension RxNorm: 603560 DROP(S) DROP(S) 4 JENELLE P(S) OTIC BID 08/26/2018 09/08/2018 Inactive meclizine 12.5 mg ta blet RxNorm: 546331 1 TABLET(S) PO TID NEEDED 07/25/2018 10/22/2018 In active change in quantity oxcarbazepine 300 mg /5 mL (60 mg/mL) oral suspension RxNorm: 762020 15 Milliliter(s) PO BID 07/08/2018 07/07/2018 Inactive oxcarbazepine 300 mg /5 mL (60 mg/mL) oral suspension RxNorm: 836786 15 Milliliter(s) PO BID 07/08/2018 01/03/2019 Inactive sertraline 50 mg tablet RxNorm: 270758 1 TABLET(S) PO QHS 07/06/2018 12/28/2018 Inactive Singulair 10 mg tablet RxNorm: 030438 1 TABLET(S) PO QD 06/24/2018 03/20/2019 Active Ciprodex 0.3 %-0.1 % ear drops,suspension RxNorm: 456114 DROP(S) 4 DROP(S) ATILIO C BID 06/20/2018 06/19/2018 Inactive Ciprodex 0.3 %-0.1 % ear drops,suspension RxNorm: 744627 Drop(s) DROP(S) 4 JENELLE P(S) OTIC BID 06/20/2018 07/03/2018 Inactive cefdinir 250 mg/5 mL oral suspension RxNorm: 877953 12 Milliliter(s) PO Q D though PEG tube 06/13/2018 06/22/2018 Inactive famotidine 20 mg tablet RxNorm: 288372 1 Tablet(s) PO QHS 05/31/2018 11/26/2018 Inactive famotidine 40 mg/5 m L (8 mg/mL) oral suspension RxNorm: 468901 2.5 Milliliter(s) PO QHS 04/29/2018 06/12/2018 Inactive meclizine 12.5 mg ta blet RxNorm: 242149 1 TABLET(S) PO TID NEEDED 04/25/2018 07/23/2018 In active change in quantity Generlac 10 gram/15 mL oral solution RxNorm: 668739 Milliliter(s) 15 MILL ILITER(S) PO TWO TO THREE TIMES DAILY 04/04/2018 05/03/2018 Inactive Ciprodex 0.3 %-0.1 % ear drops,suspension RxNorm: 089125 Drop(s) 4 DROP(S) ATILIO C BID 04/04/2018 04/17/2018 Inactive diazepam 10 mg tablet RxNorm: 221762 1 Tablet(s) PO QHS as needed 04/04/2018 05/03/2018 Inactive famotidine 40 mg/5 m L (8 mg/mL) oral suspension RxNorm: 800473 2.5 Milliliter(s) PO QHS 04/04/2018 04/28/2018 Inactive Generlac 10 gram/15 mL oral solution RxNorm: 077816 15 MILLILITER(S) PO T WO TO THREE TIMES DAILY 03/24/2018 04/03/2018 Inactive Singulair 10 mg tablet RxNorm: 451852 1 TABLET(S) PO QD 03/18/2018 06/15/2018 Inactive Ciprodex 0.3 %-0.1 % ear drops,suspension RxNorm: 201420 Drop(s) 4 DROP(S) ATILIO C BID 03/08/2018 03/21/2018 Inactive Generlac 10 gram/15 mL oral solution RxNorm: 298551 15 Milliliter(s) PO t wo to three times daily 03/03/2018 03/23/2018 Inactive meclizine 12.5 mg ta blet RxNorm: 861131 1 Tablet(s) PO TID as needed 02/10/2018 04/10/2018 In active change in quantity meclizine 12.5 mg ta blet RxNorm: 562770 1 Tablet(s) PO BID as needed 02/07/2018 02/09/2018 In active change in quantity Ciprodex 0.3 %-0.1 % ear drops,suspension RxNorm: 757782 Drop(s) 4 DROP(S) ATILIO C BID 02/02/2018 03/08/2018 Inactive sertraline 50 mg tablet RxNorm: 378690 1 TABLET(S) PO QHS 01/25/2018 07/05/2018 Inactive Zithromax 200 mg/5 m L oral suspension RxNorm: 980416 12.5 Milliliter(s) PO QD 12/31/2017 01/04/2018 In active Pepcid 20 mg tablet RxNorm: 959748 TABLET(S) 1 TABLET(S) PO QHS 12/28/2017 04/29/2018 Inactive famotidine 40 mg/5 m L (8 mg/mL) oral suspension RxNorm: 807296 2.5 Milliliter(s) PO QHS 12/28/2017 12/27/2017 Inactive famotidine 40 mg/5 m L (8 mg/mL) oral suspension RxNorm: 370291 2.5 Milliliter(s) PO QHS 12/28/2017 04/03/2018 Inactive Ciprodex 0.3 %-0.1 % ear drops,suspension RxNorm: 431998 Drop(s) 4 DROP(S) ATILIO C BID 12/27/2017 02/02/2018 Inactive meclizine 12.5 mg ta blet RxNorm: 122532 1 Tablet(s) PO BID as needed 12/23/2017 02/06/2018 In active change in quantity Protonix 40 mg table t,delayed release RxNorm: 828236 1 Tablet(s) PO or per feeding tube BID 12/16/2017 07/13/2018 Inactive oxcarbazepine 300 mg /5 mL (60 mg/mL) oral suspension RxNorm: 769160 15 Milliliter(s) PO BID 12/16/2017 07/08/2018 Inactive meclizine 12.5 mg ta blet RxNorm: 818521 1 Tablet(s) PO BID as needed 12/15/2017 02/07/2018 In active change in quantity Pepcid 40 mg/5 mL (8 mg/mL) oral suspension RxNorm: 550308 5 Milliliter(s) PO QH S to replace nighttime pantoprazole dose 12/14/2017 12/27/2017 Inactive meclizine 12.5 mg ta blet RxNorm: 506502 1 Tablet(s) PO BID as needed 12/13/2017 12/23/2017 In active diazepam 10 mg tablet RxNorm: 875046 1 Tablet(s) PO QHS as needed 12/02/2017 03/01/2018 Inactive prednisolone 15 mg/5 mL oral solution RxNorm: 793441 5 Milliliter(s) PO BI D for 3 days then 5ml daily for 3 days then 2.5ml daily for 3 days 12/02/2017 12/13/2017 Inactive sertraline 50 mg tablet RxNorm: 314024 1 Tablet(s) PO QHS 11/04/2017 01/24/2018 Inactive Ciprodex 0.3 %-0.1 % ear drops,suspension RxNorm: 095711 Drop(s) 4 DROP(S) ATILIO C BID 10/18/2017 10/31/2017 Inactive Ciprodex 0.3 %-0.1 % ear drops,suspension RxNorm: 960994 Drop(s) 4 DROP(S) ATILIO C BID 10/18/2017 12/27/2017 Inactive Singulair 10 mg tablet RxNorm: 076436 1 Tablet(s) PO QD 09/30/2017 03/17/2018 Inactive diazepam 5 mg/5 mL ( 1 mg/mL) oral solution RxNorm: 037995 2.5 Milliliter(s) PO QD give additional 5 mg dose if seizure occurs 09/17/2017 No Stop Date Active Bactrim DS 800 mg-16 0 mg tablet RxNorm: 530887 1 Tablet(s) PO BID 09/17/2017 09/23/2017 Inactive Ciprodex 0.3 %-0.1 % ear drops,suspension RxNorm: 425499 4 DROP(S) OTIC BID 09/13/2017 10/18/2017 In active cefdinir 250 mg/5 mL oral suspension RxNorm: 271465 12 Milliliter(s) PO Q D though PEG tube 08/06/2017 08/15/2017 Inactive sertraline 50 mg tablet RxNorm: 637333 1 Tablet(s) PO QHS 08/02/2017 11/04/2017 Inactive Ciprodex 0.3 %-0.1 % ear drops,suspension RxNorm: 997666 4 DROP(S) OTIC BID 07/22/2017 08/11/2017 In active Singulair 10 mg tablet RxNorm: 043051 1 Tablet(s) PO QD 06/30/2017 09/30/2017 Inactive diazepam 10 mg tablet RxNorm: 029094 TAKE 1 TABLET BY MOUTH EVERY NIGHT AT [facility] NEEDED 06/04/2017 07/03/2017 Inactive oxcarbazepine 300 mg /5 mL (60 mg/mL) oral suspension RxNorm: 880295 15 MILLILITER(S) PO BID 05/03/2017 12/16/2017 Inactive sertraline 50 mg tablet RxNorm: 649756 1 Tablet(s) PO QHS 05/03/2017 08/02/2017 Inactive Protonix 40 mg table t,delayed release RxNorm: 694598 1 Tablet(s) PO or per feeding tube BID 04/26/2017 12/16/2017 Inactive Ciprodex 0.3 %-0.1 % ear drops,suspension RxNorm: 502219 4 DROP(S) OTIC BID 04/26/2017 05/23/2017 In active Generlac 10 gram/15 mL oral solution RxNorm: 684304 Milliliter(s) TAKE 15 ML BY MOUTH TWO-THREE TIMES DAILY 04/08/2017 03/03/2018 Inactive Singulair 10 mg tablet RxNorm: 794325 1 Tablet(s) PO QD 03/03/2017 06/30/2017 Inactive diazepam 10 mg tablet RxNorm: 261724 1 Tablet(s) PO QHS as needed 02/15/2017 06/04/2017 Inactive Singulair 10 mg tablet RxNorm: 492710 1 Tablet(s) PO QD 12/01/2016 03/03/2017 Inactive Diflucan 150 mg tablet RxNorm: 351368 Tablet(s) Give 1 tab PO now and then rep eat dose in 5 days 11/10/2016 03/31/2017 Inactive Zithromax 200 mg/5 m L oral suspension RxNorm: 407505 12.5 Milliliter(s) PO QD 11/10/2016 11/14/2016 In active Singulair 10 mg tablet RxNorm: 546478 TAKE 1 TABLET BY MOUTH ONCE DAILY 11/02/2016 12/01/2016 In active diazepam 10 mg tablet RxNorm: 207181 TAKE 1 TABLET BY MOUTH EVERY NIGHT AT [facility] NEEDED 10/21/2016 11/19/2016 Inactive sertraline 50 mg tablet RxNorm: 209585 1 Tablet(s) PO QHS 10/12/2016 01/09/2017 Inactive fluconazole 100 mg t ablet RxNorm: 381298 1 Tablet(s) PO QD 09/22/2016 09/24/2016 Inactive fluconazole 100 mg t ablet RxNorm: 007380 1 Tablet(s) PO QD 09/22/2016 09/21/2016 Inactive Bactrim DS 800 mg-16 0 mg tablet RxNorm: 409104 1 Tablet(s) PO BID 09/10/2016 09/09/2016 Inactive Bactrim DS 800 mg-16 0 mg tablet RxNorm: 699541 1 Tablet(s) PO BID 09/10/2016 09/16/2016 Inactive oxcarbazepine 300 mg /5 mL (60 mg/mL) oral suspension RxNorm: 581457 15 Milliliter(s) PO BID 09/07/2016 03/05/2017 Inactive sertraline 50 mg tablet RxNorm: 191726 1 Tablet(s) PO QHS 07/06/2016 10/03/2016 Inactive Pepcid 20 mg tablet RxNorm: 283317 Tablet(s) 1 TABLET(S) PO QHS 07/06/2016 03/08/2017 Inactive sertraline 50 mg tablet RxNorm: 241903 1 Tablet(s) PO QHS 06/08/2016 05/03/2017 Inactive Generlac 10 gram/15 mL oral solution RxNorm: 918459 Milliliter(s) TAKE 15 ML BY MOUTH TWO-THREE TIMES DAILY 06/08/2016 09/08/2016 Inactive Pepcid 20 mg tablet RxNorm: 595653 1 TABLET(S) PO QHS 06/04/2016 07/05/2016 Inactive fluconazole 100 mg t ablet RxNorm: 535652 1 Tablet(s) QD throug h PEG tube 05/13/2016 12/01/2017 In active Diflucan 150 mg tablet RxNorm: 662566 Give 1 tab PO now and then repeat dose i n 5 days 03/19/2016 11/09/2016 Inactive ceftriaxone 1 gram s olution for injection RxNorm: 9606967 1 Gram(s) IM QD and Wednesday03/19/2016 11/09/2016 Inactive lidocaine 10 mg/mL ( 1 %) injection solution RxNorm: 3239236 Use as directed to reconstitute Rocephin when needed 03/19/2016 12/13/2017 Inactive Generlac 10 gram/15 mL oral solution RxNorm: 553431 TAKE 15 ML BY MOUTH T WO-THREE TIMES DAILY 03/19/2016 06/07/2016 Inactive oxcarbazepine 300 mg /5 mL oral suspension RxNorm: 107678 15 Milliliter(s) PO B ID 03/13/2016 09/07/2016 In active Ciprodex 0.3 %-0.1 % ear drops,suspension RxNorm: 980224 4 DROP(S) OTIC BID 03/09/2016 03/15/2016 In active cefdinir 250 mg/5 mL oral suspension RxNorm: 887204 11.75 Milliliter(s) P O QD though PEG tube 03/02/2016 03/08/2016 Inactive cefdinir 250 mg/5 mL oral suspension RxNorm: 085370 11.75 Milliliter(s) P O QD though PEG tube 02/24/2016 03/01/2016 Inactive cefdinir 250 mg/5 mL oral suspension RxNorm: 873538 11.75 Milliliter(s) P O QD though PEG tube 02/24/2016 02/23/2016 Inactive Ciprodex 0.3 %-0.1 % ear drops,suspension RxNorm: 275147 4 Drop(s) OTIC BID 02/24/2016 03/01/2016 In active Generlac 10 gram/15 mL oral solution RxNorm: 473561 TAKE 15 ML BY MOUTH T WICE DAILY 02/17/2016 03/18/2016 Inactive Generlac 10 gram/15 mL oral solution RxNorm: 811071 15 Milliliter(s) PO B ID 01/23/2016 02/16/2016 In active Pepcid 20 mg tablet RxNorm: 117668 1 TABLET(S) PO QHS 01/13/2016 06/03/2016 Inactive Ciprodex 0.3 %-0.1 % ear drops,suspension RxNorm: 051487 4 Drop(s) OTIC BID 12/23/2015 12/29/2015 In active sertraline 50 mg tablet RxNorm: 776554 1 Tablet(s) PO QHS 12/16/2015 06/07/2016 Inactive Zithromax 500 mg tablet RxNorm: 017596 1 Tablet(s) PO QD 12/16/2015 12/22/2015 Inactive Pepcid 20 mg tablet RxNorm: 941889 1 Tablet(s) PO QHS 12/16/2015 01/12/2016 Inactive Zithromax 500 mg tablet RxNorm: 250056 1 Tablet(s) PO QD 11/12/2015 11/18/2015 Inactive Singulair 10 mg tablet RxNorm: 686438 1 Tablet(s) PO BID 10/16/2015 11/11/2015 Inactive diazepam 10 mg tablet RxNorm: 207123 1 Tablet(s) PO QHS 10/07/2015 10/21/2016 Inactive diazepam 10 mg tablet RxNorm: 446073 1 Tablet(s) PO QHS 10/07/2015 10/06/2015 Inactive fexofenadine 30 mg/5 mL oral suspension RxNorm: 280466 10 Milliliter(s) PO o ne to two times daily PRN allergies 09/20/2015 12/15/2015 Inactive ceftriaxone 1 gram s olution for injection RxNorm: 4116048 1 Gram(s) IM QD 09/20/2015 09/21/2015 In active Ciprodex 0.3 %-0.1 % ear drops,suspension RxNorm: 591518 4 Drop(s) OTIC BID 09/20/2015 10/03/2015 In active Protonix 40 mg table t,delayed release RxNorm: 509926 1 Tablet(s) PO or per feeding tube BID 08/21/2015 12/18/2015 Inactive Carafate 100 mg/mL o ral suspension RxNorm: 345535 10 Milliliter(s) Misc ellaneous per feeding tube AC & HS 08/21/2015 09/19/2015 Inactive Zyrtec 10 mg tablet RxNorm: 9617573 1 Tablet(s) PO QD No Start Date Active diazepam 20 mg recta l kit RxNorm: 553075 RTL as needed No Start Date Active Lortab Elixir 10 mg- 300 mg/15 mL oral solution RxNorm: 8636174 8 PO Q6-8H as needed No Start Date Active ondansetron HCl 4 mg /5 mL oral solution RxNorm: 932882 10 Milliliter(s) PO a s needed and through tube No Start Date Active sertraline 50 mg tablet RxNorm: 087464 1 Tablet(s) PO QD No Start Date 12/15/2015 Inactive Brittany 180 mg tablet RxNorm: 253928 1 Tablet(s) PO QD No Start Date 06/12/2018 Inactive Generlac 10 gram/15 mL oral solution RxNorm: 177997 15 Milliliter(s) PO B ID No Start Date 01/22/2016 Inactive oxcarbazepine 300 mg /5 mL oral suspension RxNorm: 239651 13.5 Milliliter(s) PO QAM and 15ml in the evening No Start Date 12/15/2015 Inactive Singulair 10 mg tablet RxNorm: 673536 1 Tablet(s) PO QD No Start Date 11/30/2016 Inactive meclizine 12.5 mg ta blet RxNorm: 387887 1 Tablet(s) PO TID as needed for dizziness No Start Date 09/13/2017 Inactive meclizine 12.5 mg ta blet RxNorm: 281702 1 Tablet(s) PO BID No Start Date 12/12/2017 Inactive fluconazole 100 mg t ablet RxNorm: 833733 1 Tablet(s) QD throug h PEG tube No Start Date 05/12/2016 Inactive Flomax 0.4 mg capsule RxNorm: 343672 1 Capsule(s) PO QD No Start Date 06/12/2018 Inactive diazepam 10 mg tablet RxNorm: 704778 1 Tablet(s) PO QHS as needed No Start Date 02/14/2017 Inactive Generlac 10 gram/15 mL oral solution RxNorm: 874194 15 Milliliter(s) PO t wo to three times daily No Start Date 03/02/2018 Inactive oxcarbazepine 300 mg /5 mL oral suspension RxNorm: 585964 15 Milliliter(s) PO B ID No Start [...] unspecified ear ICD-10: H81.49 ICD-9: 386.2 04/01/2017 Intestinal adhesions [bands] with obstru ction (postprocedural) (postinfection) ICD-10: K56.5 ICD-9: 560.81 03/01/2017 Personal history of urinary calculi ICD-10: Z87.442 ICD-9: V13.01 03/01/2017 Constipation, unspecified ICD-10: K5 9.00 ICD-9: [...] unspecified IC D-10: R11.2 ICD-9: 787.01 10/16/2015 Epigastric pain ICD-10: R10.13 ICD-9: 789.06 10/16/2015 Other seasonal allergic rhinitis ICD -10: J30.2 ICD-9: 477.9 10/16/2015 Encounter for follow-up examination afte r completed treatment for conditions other than malignant neoplasm ICD-10: Z09 ICD-9: V67.59 09/23/2015 Generalized abdominal pain ICD-10: R 10.84 ICD-9: 789.00 09/23/2015 Otitis media, unspecified, right ear ICD-10: [...] CPT-4: J0696 03/19/2016 THER/PROPH/DIAG INJ SC/IM CPT-4: 75885 03/19/2016 DEXAMETHASONE SODIUM PHOS CPT-4: J1100 11/12/2015 THER/PROPH/DIAG INJ SC/IM CPT-4: 89466 11/12/2015 CEFTRIAXONE SODIUM I NJECTION CPT-4: J0696 09/20/2015 THER/PROPH/DIAG INJ SC/IM CPT-4: 92633 09/20/2015 THER/PROPH/DIAG INJ SC/IM CPT-4: 70643 09/10/2015 METHYLPREDNISOLONE 4 0 MG INJ CPT-4: [...] 1: 114/70 Code: 8480-6 BMI: 23.1 Code: 41023-6 Heart Rate 1: 80 bpm Height: 4'6" [...] solid yesterday evening anxiety Quality agitation 03/23/2016 [employer] Doubling [employer] Operator thinks she may be having incre ased [...] severe 08/21/2015 None developmental delay Significant [facility] [place] Conditions seizure disorder 08/21/2015 None Advance Directives No Advance Directive data Encounters Encounter Performer Loca tion Codes Date ([id number]) OFFICE/OUTPA TIENT VISIT EST Diagnosis: Irritability and anger[ICD10: R45.4] Nataliia [facility] CPT-4: 34331 11/25/2018 ([id number]) OFFICE/OUTPA TIENT VISIT EST Diagnosis: Acute suppurative otitis media without spontaneous rupture of ear drum, bilateral[ICD10: H66.003] Fatoudora [facility] CPT-4: 63357 06/13/2018 ([id number]) OFFICE/OUTPA TIENT VISIT EST Diagnosis: Other fatigue[ICD10: R53.83] Diagnosis: Anuria and oliguria[ICD10: R34] Diagnosis: Acute gastritis without bleeding[ICD10: K29.00] Fatou [facility] CPT-4: 02584 01/04/2018 ([id number]) OFFICE/OUTPA TIENT VISIT EST Diagnosis: Acute bronchitis, unspecified[ICD10: J20.9] Fatou [facility] CPT-4: 39380 12/31/2017 ([id number]) PREV VISIT E ST AGE 18-39 Diagnosis: Encounter for general adult medical examination without abnormal findings[ICD10: Z00.00] Diagnosis: Severe intellectual disabilities[ICD10: F72] Diagnosis: Allergic rhinitis due to pollen[ICD10: J30.1] Diagnosis: Epilepsy, unspecified, intractable, without status epilepticus[ICD10: G40.919] Diagnosis: Gastro-esophageal reflux disease without esophagitis[ICD10: K21.9] [facility] 19178 12/14/2017 ([id number]) OFFICE/OUTPA TIENT VISIT EST Diagnosis: Allergic rhinitis due to pollen[ICD10: J30.1] Diagnosis: Epilepsy, unspecified, intractable, without status epilepticus[ICD10: G40.919] Keily ARANGO [facility] CPT-4: 74561 12/02/2017 ([id number]) OFFICE/OUTPA TIENT VISIT EST Diagnosis: Other allergic rhinitis[ICD10: J30.89] Fatou [facility]ILL[facility] CPT-4: 14157 10/12/2017 OFFICE/OUTPATIENT SIT EST Diagnosis: Acute suppurative otitis media without spontaneous rupture of ear drum, recurrent, left ear[ICD10: H66.005] Diagnosis: Epilepsy, unspecified, intractable, without status epilepticus[ICD10: G40.919] Diagnosis: Hesitancy of micturition[ICD10: R39.11] Fatou [facility] CPT-4: 04208 09/17/2017 OFFICE/OUTPATIENT SIT EST Diagnosis: Otitis media, unspecified, left ear[ICD10: H66.92] Fatousavannah [facility]ILLO [facility] CPT-4: 52797 08/06/2017 ([id number]) OFFICE/OUTPA TIENT VISIT EST Diagnosis: Vertigo of central origin, 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.49] Diagnosis: Dizziness and giddiness[ICD10: R42] Keily PEDROZA [facility] CPT-4: 01914 04/01/2017 OFFICE/OUTPATIENT SIT EST Diagnosis: Vomiting, unspecified[ICD10: R11.10] Diagnosis: 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)[ICD10: K56.5] Diagnosis: Personal history of urinary calculi[ICD10: Z87.442] Emely Hdz KEILY PEDROZA [facility] CPT-4: 40085 03/01/2017 ([id number]) OFFICE/OUTPA TIENT VISIT EST Diagnosis: Allergic rhinitis due to pollen[ICD10: J30.1] Diagnosis: Acute and subacute allergic otitis media (mucoid) (sanguinous) (serous), left ear[ICD10: H65.112] [facility]: 34925 11/10/2016 ([id number]) OFFICE/OUTPA TIENT VISIT EST Diagnosis: 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] Diagnosis: Unspecified ovarian cyst, right side[ICD10: N83.201] Diagnosis: Cyst of kidney, 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] Keily PEDROZA [facility] CPT-4: 31618 08/13/2016 ([id number]) OFFICE/OUTPA TIENT VISIT EST Diagnosis: Rash and other nonspecific skin eruption[ICD10: R21] Aziza Magallanes [facility]: 32076 03/27/2016 ([id number]) OFFICE/OUTPA TIENT VISIT EST Diagnosis: Urinary tract infection, site not specified[ICD10: N39.0] [facility] C[facility]: 73839 03/23/2016 ([id number]) OFFICE/OUTPA TIENT VISIT EST Diagnosis: Retention of urine, unspecified[ICD10: R33.9] Diagnosis: Dysuria[ICD10: R30.0] Diagnosis: Constipation, unspecified[ICD10: K59.00] Aziza ARANGO [facility] CPT-4: 18262 03/19/2016 ([id number]) OFFICE/OUTPA TIENT VISIT EST Diagnosis: Acute sinusitis, unspecified[ICD10: J01.90] Keily COONEY [facility] CPT-4: 24293 03/02/2016 OFFICE/OUTPATIENT SIT EST Diagnosis: Other fatigue[ICD10: R53.83] Diagnosis: Retention of urine, unspecified[ICD10: R33.9] Diagnosis: Dysuria[ICD10: R30.0] Diagnosis: Generalized abdominal pain[ICD10: R10.84] 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] [facility]: 74669 02/24/2016 ([id number]) OFFICE/OUTPA TIENT VISIT EST Diagnosis: Chronic mucoid otitis media, right ear[ICD10: H65.31] Diagnosis: Allergic rhinitis, unspecified[ICD10: J30.9] Diagnosis: 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] [facility]: 72534 12/16/2015 ([id number]) OFFICE/OUTPA TIENT VISIT EST Diagnosis: Allergic rhinitis, unspecified[ICD10: J30.9] Diagnosis: Acute recurrent sinusitis, unspecified[ICD10: J01.91] Keily COONEY [facility] CPT-4: 52675 11/12/2015 ([id number]) OFFICE/OUTPA TIENT VISIT EST Diagnosis: Other seasonal allergic rhinitis[ICD10: J30.2] Diagnosis: Nausea with vomiting, unspecified[ICD10: R11.2] Diagnosis: Epigastric pain[ICD10: R10.13] [facility]: 94523 10/16/2015 OFFICE/OUTPATIENT SIT EST Diagnosis: Encounter for follow-up examination after completed treatment for conditions other than malignant neoplasm[ICD10: Z09] Diagnosis: Generalized abdominal pain[ICD10: R10.84] Keily COONEY [facility] CPT-4: 00145 09/23/2015 ([id number]) OFFICE/OUTPA TIENT VISIT EST Diagnosis: Otitis media, unspecified, right ear[ICD10: H66.91] Diagnosis: Constipation, unspecified[ICD10: K59.00] Diagnosis: Allergic rhinitis, unspecified[ICD10: J30.9] Aziza ARANGO [facility] CPT-4: 41523 09/20/2015 OFFICE/OUTPATIENT SIT EST Diagnosis: Allergic rhinitis, unspecified[ICD10: J30.9] Diagnosis: Unspecified perforation of tympanic membrane, right ear[ICD10: H72.91] Bibiana ARANGO [facility] CPT-4: 42123 09/10/2015 OFFICE/OUTPATIENT SIT NEW Diagnosis: Epilepsy, unspecified, intractable, without status epilepticus[ICD10: G40.919] Diagnosis: Gastric ulcer, unspecified as acute or chronic, without hemorrhage or perforation[ICD10: K25.9] Diagnosis: Severe intellectual disabilities[ICD10: F72] Keily COONEY YesPlz! [facility] CPT-4: 85550 08/21/2015 Plan of Care Planned Activity Notes [...] : R45.4 11/25/2018 Appointment: Nataliia Hsieh [address] [place], [place] [id number] ACUTE ILLNESS 11/25/2018 Visit Diagnosis Plan: Acute suppurative otitis media without spontaneous rupture of ear drum, bilateral Discussion: cefdinir for 10 days. if worsening symptoms later this week, call clinic. push fluids and tylenol/ibuprofen prn pain or fever. ICD-9 : 382.00 ICD-10 : H66.003 06/13/2018 Appointment: Fatou Onofre [address] [place], [place] [id number] ACUTE ILLNESS 06/13/2018 Visit Diagnosis Plan: Anuria [...] ICD-10 : K29.00 01/04/2018 Appointment: Fatou Onofre [address] [place], [place] [id number] ACUTE ILLNESS 01/04/2018 Patient Education: Patient Medication Summary Completed 01/04/2018 Visit Diagnosis Plan: Acute bronchitis, unspecified Discussion: zithromax prescribed to take as directed. continue with allergy meds including flonase to help dry congestion. call office next week if new or worsening symptoms. ICD-9 : 466.0 ICD-10 : J20.9 12/31/2017 Appointment: Fatou Onofre [address] [place], [place] [address] ACUTE ILLNESS 12/31/2017 Patient Education: Patient Medication [...] G40.919 12/14/2017 Visit Diagnosis Plan: Encounter for [facility] adult medical examination without abnormal findings Discussion: Had recent lab done Follow Up: 3 months ICD-9 : V70.9 ICD-10 : Z00.00 12/14/2017 Appointment: Keily Arango WPtel: [facility] [facility] 12/14/2017 Patient Education: Patient Medication [...] J30.1 12/02/2017 Appointment: Keily Arango WPtel: [phone] [facility] ACUTE ILLNESS 12/02/2017 Patient Education: Patient Medication Summary Completed 12/02/2017 Visit Diagnosis Plan: Other allergic rhinitis Discussion: symptoms most likely caused from allergies. patient sent to hospital for decadron injection. instructed to restart patient's flonase at home. if new or worsening symptoms, call or rtc. ICD-9 : 477.8 ICD-10 : J30.89 10/12/2017 Appointment: Fatou Onofre [address] [place], [place] [id number] ACUTE ILLNESS 10/12/2017 Patient Education: Patient Medication [...] : G40.919 09/17/2017 Appointment: Fatou Onofre [address] [place], [place] [id number] ACUTE [facility] 09/17/2017 Patient Education: Patient Medication Summary Completed 09/17/2017 Visit Diagnosis Plan: Otitis media, unspecified, left ear Discussion: cefdinir prescribed daily for 10 days. instructed to administer tylenol/ibuprofen for pain or fever. if no improvement, or worsening symptoms, call or rtc. ICD-9 : 380.14 ICD-10 : H66.92 08/06/2017 Appointment: Fatou Onofre [address] [place] [address] ACUTE ILLNESS 08/06/2017 Patient Education: Patient Medication [...] H81.49 04/01/2017 Appointment: Keily Arango WPtel: [phone] [facility] FOLLOW UP 04/01/2017 Patient Education: Patient Medication Summary Completed 04/01/2017 Patient Education: Patient Medication Summary Completed 03/09/2017 Care Plan: CT HEAD/BRAIN W/O DYE LOINC : 01613-2 Pending 03/09/2017 Visit Plan: It's difficult to [...] indicated. 03/01/2017 Appointment: Emely Hdz WPtel: [phone] ACUTE ILLNESS 03/01/2017 Patient Education: Patient Medication Summary Completed 03/01/2017 Patient Education: Patient Medication Summary Completed 12/17/2016 Visit Diagnosis Plan: Acute and subacute allergic otitis media (mucoid) (sanguinous) (serous), left ear Discussion: Zithromax ICD-9 : 381.05 ICD-10 : H65.112 11/10/2016 Visit Diagnosis Plan: Allergic rhinitis due to pollen Discussion: Continue zyrtec/singulair ICD-9 : 477.9 ICD-10 : J30.1 11/10/2016 Appointment: Keily Arango WPtel: [phone] ACUTE ILLNESS 11/10/2016 Patient Education: Patient Medication Summary Completed 11/10/2016 Patient Education: Patient Medication Summary Completed 09/07/2016 Care Plan: URINALYSIS AUTO W/O SCOPE LOINC : 56193-3 Pending 09/07/2016 Visit Diagnosis Plan: Cyst of [...] N83.201 08/13/2016 Appointment: [facility]ily [facility]ango [facility]Ptel: [phone] 08/12 confirmed-sp FOLLOW UP 08/13/2016 Patient Education: Patient Medication Summary Completed 08/13/2016 Patient Education: Patient Medication Summary Completed 05/19/2016 Care Plan: X-RAY EXAM OF FOOT left foot LOINC : 22097-2 Pending 05/19/2016 Visit Plan: Discussed with Dr Burton fox CBC to be drawn Order sent to Will call with results 03/27/2016 Visit Plan: Discussed with Dr Burton fox CBC to be drawn Order sent to Will call with results 03/27/2016 Appointment: Aziza Magallanes 2305 [facility] ACUTE ILLNESS 03/27/2016 Patient Education: Patient Medication Summary Completed 03/27/2016 Visit Plan: Go for dose of rocephin 1gm IM today and tomorrow then done Diflucan 150mg x1 today Discussed with mom via phone about urology fwup--she will talk with her and let us know 03/23/2016 Appointment: [facility]ily Arango [facility]Ptel[phone] 03/23 confirmed ~sl FOLLOW UP 03/23/2016 Patient Education: Patient Medication Summary Completed 03/23/2016 Visit Plan: Per karen Brizuela cath for UA and culture today Ok to have a standing order for further UA needs at for straight cath Rocephin IM today and daily through Wednesday Mom has arranged a family friend that is an [employer] to give Wednesday and Sundays injections - rxs for rocephin and lido sent to [facility] cannot order the lido in the qty patient needs) Dr Arango wants patient to be re-evaluated on Wednesday in clinic Referral to Urology for recurrent UTIs and urinary retention - mom wants to research who she wants her sent to and let us know 03/19/2016 Visit Plan: Per Dr Orender, straigh t cath for UA and culture today Ok to have a standing order for further UA needs at for straight cath Rocephin IM today and daily through Wednesday Mom has arranged a family friend that is an [employer] to give Wednesday and Sundays injections - [...] let us know 03/19/2016 Visit Plan: Per Dr Arango, karen t cath for UA and culture today Ok to have a standing order for further UA needs at for straight cath Rocephin IM today and daily through Wednesday Mom has arranged a family friend that is an [employer] to give Wednesday and Sundays injections - [...] us know 03/19/2016 Appointment: Aziza Magallanes 2[address] [facility] ACUTE ILLNESS 03/19/2016 Patient Education: Patient Medication Summary Completed 03/19/2016 Visit Plan: 1 more week of cefdinir 03/02/2016 Appointment: Keily Arango WPtel: [phone] [place], [place] [id number] 03/02 confirmed~sl WORK IN 03/02/2016 Patient Education: [...] with results 02/24/2016 Appointment: Aziza Magallanes 2[address] [facility] ACUTE ILLNESS 02/24/2016 Patient Education: Patient Medication Summary Completed 02/24/2016 Care Plan: CHEST X-RAY 2VW FRONTAL&LATL LOINC : 24279-4 Pending 02/24/2016 Care Plan: X-RAY EXAM OF ABDOMEN LOINC : 25443-4 Pending 02/24/2016 Visit Plan: Repeat zithromax x1 wee k Ciprodex to right ear x1 week Add Pepcid q HS x2-4 weeks for total histamine blockade and for extra stomach protection while on zithromax 12/16/2015 Appointment: Keily Arango WPtel: [address] [place], [place] [phone] [place] 6/9 lm~sl 6/10 lm ~sl FOLLOW [...] Dexamethasone given 11/12/2015 Appointment: Keily Arango WPtel: [facility] US 5/9 lm~sl 5/10 lm~sl [...] office visits for [facility] 10/16/2015 Appointment: [facility] [facility] 10/16/2015 Patient Education: Patient Medication Summary Completed 10/16/2015 Appointment: [facility]anes [facility] [place] canceled, feeling better CANCELED 10/03/2015 Visit Plan: No further abx needed G o back to [facility] for next 3 days and restart carafate Notify if abdominal pain worsens 09/23/2015 Appointment: Keily Arango WPtel: [address] [place], [place] [address] 09/19 confirmed-sp FOLLOW UP 09/23/2015 Patient Education: [...] done in the past. Order sent to [facility] since [facility] does not have in stock. Recheck in [...] done in the past. Order sent to [facility] since [facility] does not have in [...] for now. 09/20/2015 Appointment: [facility]anes [facility] [facility] 09/20/2015 Patient Education: Patient [...] ear 09/10/2015 Appointment: Bibiana Garg [facility]Ptel: [phone] 09/08 confirmed-sp ACUTE ILLNESS 09/10/2015 Patient [...] Medication Summary Completed 08/21/2015 Instructions Comment . Discussed with Dr Arango CBC to be drawn Order sent to Will call with results . Go for dose of kim ephin [...] Notify if persists/symptoms worsens Dexamethasone given . Repeat zithromax x 1 week Ciprodex to right ear x1 week Add Pepcid q HS x2-4 weeks for total histamine blockade and for extra stomach protection while on zithromax . Depo Medrol 40mg/ Kenalog 40 mg [...] to determine if additional medications indicated. . Mom reports after discussion of patient seeming uncomfortable with abdominal exam, that she has a history of eating objects - nail clippers, birsa needles, etc Will get CXR and abdominal/KUB [...] done in the past. Order sent to [facility] since [facility] does not have in [...] doesn't affect her stomach. She reports Dr Naomi has treated with rocephin IM x 3 [...] done in the past. Order sent to [facility] since [facility] does not have in [...] further abx nee ded Go back to [facility] for next 3 days and restart carafate Notify if abdominal pain worsens . [facility] Ok to have a standing order for further UA needs at for straight cath Rocephin IM today and daily through Wednesday Mom has arranged a family friend that is an [employer] to give Wednesday and Sundays injections - [...] let us know . Per Dr Arango, [facility] cath for UA and culture today Ok to have a standing order for further UA needs at for straight cath Rocephin IM today and daily through Wednesday Mom has arranged a family friend that is an [employer] to give Wednesday and Sundays injections - [...] let us know . Per Dr Arango, [facility] cath for UA and culture today Ok to have a standing order for further UA needs at for straight cath Rocephin IM today and daily through Wednesday Mom has arranged a family friend that is an [employer] to give Wednesday and Sundays injections - [...] Trial singulair in addition to zyrtec and prafulnasada If not helpful, will need to see [...]
--- OUTSIDE RECORDS SUMMARY | 2019-11-10 19:50 | XMS REPORT | CCD ---
Author Author Belkys Arango D.O. Organization KEILY ARANGO DO [facility] Address [address] [place] [address] Phone Care Team Providers Care Sky Cap Name Role Phone Keily Arango D.O., PP Unavailable CCM Unavailable Summary Purpose Interface Exchange Insurance Providers Payer name Policy type / Coverage type Covered constitution party ID Effective Begin Date Effective End Date [employer] [facility] Medicaid [id number] 2018 Unknown Family History Family History data not found Social History Social History Element Codes Description Effective Dates Marital status Unknown S halima 08/21/2015 Employment Unknown Curre ntly unemployed Physically handicapped 08/21/[address]: 045079513 Has never smoked or chewed tobacco 08/21/[address]: 570836181 Never drinks alcohol 08/21/2015 Allergies, Adverse Reactions, [...] Fill Instructions Macrobid 100 mg capsule RxNorm: 178345 1 Capsule(s) PO BID 02/20/2019 03/01/2019 Active Macrobid 100 mg capsule RxNorm: 964225 1 Capsule(s) PO BID 02/20/2019 02/19/2019 Inactive meclizine 12.5 mg ta blet RxNorm: 875159 1 Tablet(s) PO TID as needed 02/06/2019 03/07/2019 Ac tive change in quantity Ciprodex 0.3 %-0.1 % ear drops,suspension RxNorm: 725064 DROP(S) 4 DROP(S) ATILIO C BID 01/30/2019 02/12/2019 Inactive diazepam 10 mg tablet RxNorm: 007592 1 Tablet(s) PO QHS as needed 01/27/2019 03/27/2019 Active sertraline 50 mg tablet RxNorm: 086765 1 Tablet(s) PO QHS 12/29/2018 06/26/2019 Active famotidine 20 mg tablet RxNorm: 376667 1 Tablet(s) PO QHS 12/29/2018 06/26/2019 Active Ciprodex 0.3 %-0.1 % ear drops,suspension RxNorm: 116136 DROP(S) 4 DROP(S) ATILIO C BID 12/14/2018 12/27/2018 Inactive Generlac 10 gram/15 mL oral solution RxNorm: 854535 15 Milliliter(s) PO T WO TO THREE TIMES DAILY 12/06/2018 06/03/2019 Active Protonix 40 mg table t,delayed release RxNorm: 275156 1 Tablet(s) PO or per feeding tube BID 11/24/2018 05/22/2019 Active meclizine 12.5 mg ta blet RxNorm: 337475 1 Tablet(s) PO TID as needed 11/11/2018 02/06/2019 In active change in quantity Ciprodex 0.3 %-0.1 % ear drops,suspension RxNorm: 803385 DROP(S) 4 DROP(S) ATILIO C BID 11/08/2018 11/21/2018 Inactive diazepam 10 mg tablet RxNorm: 849106 1 Tablet(s) PO QHS as needed 10/21/2018 11/19/2018 Inactive Generlac 10 gram/15 mL oral solution RxNorm: 512580 Milliliter(s) 15 MILL ILITER(S) PO TWO TO THREE TIMES DAILY 10/07/2018 11/05/2018 Inactive Ciprodex 0.3 %-0.1 % ear drops,suspension RxNorm: 283697 DROP(S) DROP(S) 4 JENELLE P(S) OTIC BID 08/26/2018 09/08/2018 Inactive meclizine 12.5 mg ta blet RxNorm: 625816 1 TABLET(S) PO TID NEEDED 07/25/2018 10/22/2018 In active change in quantity oxcarbazepine 300 mg /5 mL (60 mg/mL) oral suspension RxNorm: 282723 15 Milliliter(s) PO BID 07/08/2018 01/03/2019 Inactive oxcarbazepine 300 mg /5 mL (60 mg/mL) oral suspension RxNorm: 450751 15 Milliliter(s) PO BID 07/08/2018 07/07/2018 Inactive sertraline 50 mg tablet RxNorm: 987346 1 TABLET(S) PO QHS 07/06/2018 12/28/2018 Inactive Singulair 10 mg tablet RxNorm: 977075 1 TABLET(S) PO QD 06/24/2018 03/20/2019 Active Ciprodex 0.3 %-0.1 % ear drops,suspension RxNorm: 587424 DROP(S) 4 DROP(S) ATILIO C BID 06/20/2018 06/19/2018 Inactive Ciprodex 0.3 %-0.1 % ear drops,suspension RxNorm: 499903 Drop(s) DROP(S) 4 JENELLE P(S) OTIC BID 06/20/2018 07/03/2018 Inactive cefdinir 250 mg/5 mL oral suspension RxNorm: 131984 12 Milliliter(s) PO Q D though PEG tube 06/13/2018 06/22/2018 Inactive famotidine 20 mg tablet RxNorm: 503852 1 Tablet(s) PO QHS 05/31/2018 11/26/2018 Inactive famotidine 40 mg/5 m L (8 mg/mL) oral suspension RxNorm: 527544 2.5 Milliliter(s) PO QHS 04/29/2018 06/12/2018 Inactive meclizine 12.5 mg ta blet RxNorm: 582478 1 TABLET(S) PO TID NEEDED 04/25/2018 07/23/2018 In active change in quantity Generlac 10 gram/15 mL oral solution RxNorm: 947350 Milliliter(s) 15 MILL ILITER(S) PO TWO TO THREE TIMES DAILY 04/04/2018 05/03/2018 Inactive Ciprodex 0.3 %-0.1 % ear drops,suspension RxNorm: 879211 Drop(s) 4 DROP(S) ATILIO C BID 04/04/2018 04/17/2018 Inactive diazepam 10 mg tablet RxNorm: 429367 1 Tablet(s) PO QHS as needed 04/04/2018 05/03/2018 Inactive famotidine 40 mg/5 m L (8 mg/mL) oral suspension RxNorm: 719040 2.5 Milliliter(s) PO QHS 04/04/2018 04/28/2018 Inactive Generlac 10 gram/15 mL oral solution RxNorm: 601445 15 MILLILITER(S) PO T WO TO THREE TIMES DAILY 03/24/2018 04/03/2018 Inactive Singulair 10 mg tablet RxNorm: 864088 1 TABLET(S) PO QD 03/18/2018 06/15/2018 Inactive Ciprodex 0.3 %-0.1 % ear drops,suspension RxNorm: 908133 Drop(s) 4 DROP(S) ATILIO C BID 03/08/2018 03/21/2018 Inactive Generlac 10 gram/15 mL oral solution RxNorm: 348318 15 Milliliter(s) PO t wo to three times daily 03/03/2018 03/23/2018 Inactive meclizine 12.5 mg ta blet RxNorm: 004643 1 Tablet(s) PO TID as needed 02/10/2018 04/10/2018 In active change in quantity meclizine 12.5 mg ta blet RxNorm: 724502 1 Tablet(s) PO BID as needed 02/07/2018 02/09/2018 In active change in quantity Ciprodex 0.3 %-0.1 % ear drops,suspension RxNorm: 946852 Drop(s) 4 DROP(S) ATILIO C BID 02/02/2018 03/08/2018 Inactive sertraline 50 mg tablet RxNorm: 979604 1 TABLET(S) PO QHS 01/25/2018 07/05/2018 Inactive Zithromax 200 mg/5 m L oral suspension RxNorm: 952947 12.5 Milliliter(s) PO QD 12/31/2017 01/04/2018 In active Pepcid 20 mg tablet RxNorm: 670104 TABLET(S) 1 TABLET(S) PO QHS 12/28/2017 04/29/2018 Inactive famotidine 40 mg/5 m L (8 mg/mL) oral suspension RxNorm: 830666 2.5 Milliliter(s) PO QHS 12/28/2017 12/27/2017 Inactive famotidine 40 mg/5 m L (8 mg/mL) oral suspension RxNorm: 230416 2.5 Milliliter(s) PO QHS 12/28/2017 04/03/2018 Inactive Ciprodex 0.3 %-0.1 % ear drops,suspension RxNorm: 971242 Drop(s) 4 DROP(S) ATILIO C BID 12/27/2017 02/02/2018 Inactive meclizine 12.5 mg ta blet RxNorm: 030142 1 Tablet(s) PO BID as needed 12/23/2017 02/06/2018 In active change in quantity Protonix 40 mg table t,delayed release RxNorm: 386427 1 Tablet(s) PO or per feeding tube BID 12/16/2017 07/13/2018 Inactive oxcarbazepine 300 mg /5 mL (60 mg/mL) oral suspension RxNorm: 698406 15 Milliliter(s) PO BID 12/16/2017 07/08/2018 Inactive meclizine 12.5 mg ta blet RxNorm: 972800 1 Tablet(s) PO BID as needed 12/15/2017 02/07/2018 In active change in quantity Pepcid 40 mg/5 mL (8 mg/mL) oral suspension RxNorm: 160890 5 Milliliter(s) PO QH S to replace nighttime pantoprazole dose 12/14/2017 12/27/2017 Inactive meclizine 12.5 mg ta blet RxNorm: 936427 1 Tablet(s) PO BID as needed 12/13/2017 12/23/2017 In active diazepam 10 mg tablet RxNorm: 028766 1 Tablet(s) PO QHS as needed 12/02/2017 03/01/2018 Inactive prednisolone 15 mg/5 mL oral solution RxNorm: 066886 5 Milliliter(s) PO BI D for 3 days then 5ml daily for 3 days then 2.5ml daily for 3 days 12/02/2017 12/13/2017 Inactive sertraline 50 mg tablet RxNorm: 523920 1 Tablet(s) PO QHS 11/04/2017 01/24/2018 Inactive Ciprodex 0.3 %-0.1 % ear drops,suspension RxNorm: 306648 Drop(s) 4 DROP(S) ATILIO C BID 10/18/2017 10/31/2017 Inactive Ciprodex 0.3 %-0.1 % ear drops,suspension RxNorm: 467215 Drop(s) 4 DROP(S) ATILIO C BID 10/18/2017 12/27/2017 Inactive Singulair 10 mg tablet RxNorm: 497177 1 Tablet(s) PO QD 09/30/2017 03/17/2018 Inactive diazepam 5 mg/5 mL ( 1 mg/mL) oral solution RxNorm: 705096 2.5 Milliliter(s) PO QD give additional 5 mg dose if seizure occurs 09/17/2017 No Stop Date Active Bactrim DS 800 mg-16 0 mg tablet RxNorm: 442266 1 Tablet(s) PO BID 09/17/2017 09/23/2017 Inactive Ciprodex 0.3 %-0.1 % ear drops,suspension RxNorm: 259792 4 DROP(S) OTIC BID 09/13/2017 10/18/2017 In active cefdinir 250 mg/5 mL oral suspension RxNorm: 899820 12 Milliliter(s) PO Q D though PEG tube 08/06/2017 08/15/2017 Inactive sertraline 50 mg tablet RxNorm: 757227 1 Tablet(s) PO QHS 08/02/2017 11/04/2017 Inactive Ciprodex 0.3 %-0.1 % ear drops,suspension RxNorm: 048881 4 DROP(S) OTIC BID 07/22/2017 08/11/2017 In active Singulair 10 mg tablet RxNorm: 734497 1 Tablet(s) PO QD 06/30/2017 09/30/2017 Inactive diazepam 10 mg tablet RxNorm: 130018 TAKE 1 TABLET BY MOUTH EVERY NIGHT AT BE [facility] NEEDED 06/04/2017 07/03/2017 Inactive oxcarbazepine 300 mg /5 mL (60 mg/mL) oral suspension RxNorm: 728823 15 MILLILITER(S) PO BID 05/03/2017 12/16/2017 Inactive sertraline 50 mg tablet RxNorm: 089433 1 Tablet(s) PO QHS 05/03/2017 08/02/2017 Inactive Protonix 40 mg table t,delayed release RxNorm: 003962 1 Tablet(s) PO or per feeding tube BID 04/26/2017 12/16/2017 Inactive Ciprodex 0.3 %-0.1 % ear drops,suspension RxNorm: 800536 4 DROP(S) OTIC BID 04/26/2017 05/23/2017 In active Generlac 10 gram/15 mL oral solution RxNorm: 611850 Milliliter(s) TAKE 15 ML BY MOUTH TWO-THREE TIMES DAILY 04/08/2017 03/03/2018 Inactive Singulair 10 mg tablet RxNorm: 706158 1 Tablet(s) PO QD 03/03/2017 06/30/2017 Inactive diazepam 10 mg tablet RxNorm: 802823 1 Tablet(s) PO QHS as needed 02/15/2017 06/04/2017 Inactive Singulair 10 mg tablet RxNorm: 143471 1 Tablet(s) PO QD 12/01/2016 03/03/2017 Inactive Diflucan 150 mg tablet RxNorm: 306157 Tablet(s) Give 1 tab PO now and then rep eat dose in 5 days 11/10/2016 03/31/2017 Inactive Zithromax 200 mg/5 m L oral suspension RxNorm: 947349 12.5 Milliliter(s) PO QD 11/10/2016 11/14/2016 In active Singulair 10 mg tablet RxNorm: 849464 TAKE 1 TABLET BY MOUTH ONCE DAILY 11/02/2016 12/01/2016 In active diazepam 10 mg tablet RxNorm: 529252 TAKE 1 TABLET BY MOUTH EVERY NIGHT AT [facility] NEEDED 10/21/2016 11/19/2016 Inactive sertraline 50 mg tablet RxNorm: 891742 1 Tablet(s) PO QHS 10/12/2016 01/09/2017 Inactive fluconazole 100 mg t ablet RxNorm: 902750 1 Tablet(s) PO QD 09/22/2016 09/24/2016 Inactive fluconazole 100 mg t ablet RxNorm: 217895 1 Tablet(s) PO QD 09/22/2016 09/21/2016 Inactive Bactrim DS 800 mg-16 0 mg tablet RxNorm: 470050 1 Tablet(s) PO BID 09/10/2016 09/09/2016 Inactive Bactrim DS 800 mg-16 0 mg tablet RxNorm: 385684 1 Tablet(s) PO BID 09/10/2016 09/16/2016 Inactive oxcarbazepine 300 mg /5 mL (60 mg/mL) oral suspension RxNorm: 760741 15 Milliliter(s) PO BID 09/07/2016 03/05/2017 Inactive sertraline 50 mg tablet RxNorm: 417882 1 Tablet(s) PO QHS 07/06/2016 10/03/2016 Inactive Pepcid 20 mg tablet RxNorm: 418948 Tablet(s) 1 TABLET(S) PO QHS 07/06/2016 03/08/2017 Inactive sertraline 50 mg tablet RxNorm: 190413 1 Tablet(s) PO QHS 06/08/2016 05/03/2017 Inactive Generlac 10 gram/15 mL oral solution RxNorm: 039430 Milliliter(s) TAKE 15 ML BY MOUTH TWO-THREE TIMES DAILY 06/08/2016 09/08/2016 Inactive Pepcid 20 mg tablet RxNorm: 145296 1 TABLET(S) PO QHS 06/04/2016 07/05/2016 Inactive fluconazole 100 mg t ablet RxNorm: 775319 1 Tablet(s) QD throug h PEG tube 05/13/2016 12/01/2017 In active Diflucan 150 mg tablet RxNorm: 673604 Give 1 tab PO now and then repeat dose i n 5 days 03/19/2016 11/09/2016 Inactive ceftriaxone 1 gram s olution for injection RxNorm: 1723401 1 Gram(s) IM QD and Wednesday03/19/2016 11/09/2016 Inactive lidocaine 10 mg/mL ( 1 %) injection solution RxNorm: 0861621 Use as directed to reconstitute Rocephin when needed 03/19/2016 12/13/2017 Inactive Generlac 10 gram/15 mL oral solution RxNorm: 742251 TAKE 15 ML BY MOUTH T WO-THREE TIMES DAILY 03/19/2016 06/07/2016 Inactive oxcarbazepine 300 mg /5 mL oral suspension RxNorm: 081108 15 Milliliter(s) PO B ID 03/13/2016 09/07/2016 In active Ciprodex 0.3 %-0.1 % ear drops,suspension RxNorm: 973644 4 DROP(S) OTIC BID 03/09/2016 03/15/2016 In active cefdinir 250 mg/5 mL oral suspension RxNorm: 877166 11.75 Milliliter(s) P O QD though PEG tube 03/02/2016 03/08/2016 Inactive cefdinir 250 mg/5 mL oral suspension RxNorm: 983260 11.75 Milliliter(s) P O QD though PEG tube 02/24/2016 03/01/2016 Inactive cefdinir 250 mg/5 mL oral suspension RxNorm: 428661 11.75 Milliliter(s) P O QD though PEG tube 02/24/2016 02/23/2016 Inactive Ciprodex 0.3 %-0.1 % ear drops,suspension RxNorm: 082808 4 Drop(s) OTIC BID 02/24/2016 03/01/2016 In active Generlac 10 gram/15 mL oral solution RxNorm: 626463 TAKE 15 ML BY MOUTH T WICE DAILY 02/17/2016 03/18/2016 Inactive Generlac 10 gram/15 mL oral solution RxNorm: 952051 15 Milliliter(s) PO B ID 01/23/2016 02/16/2016 In active Pepcid 20 mg tablet RxNorm: 352854 1 TABLET(S) PO QHS 01/13/2016 06/03/2016 Inactive Ciprodex 0.3 %-0.1 % ear drops,suspension RxNorm: 563494 4 Drop(s) OTIC BID 12/23/2015 12/29/2015 In active sertraline 50 mg tablet RxNorm: 447416 1 Tablet(s) PO QHS 12/16/2015 06/07/2016 Inactive Zithromax 500 mg tablet RxNorm: 398531 1 Tablet(s) PO QD 12/16/2015 12/22/2015 Inactive Pepcid 20 mg tablet RxNorm: 612446 1 Tablet(s) PO QHS 12/16/2015 01/12/2016 Inactive Zithromax 500 mg tablet RxNorm: 160402 1 Tablet(s) PO QD 11/12/2015 11/18/2015 Inactive Singulair 10 mg tablet RxNorm: 219865 1 Tablet(s) PO BID 10/16/2015 11/11/2015 Inactive diazepam 10 mg tablet RxNorm: 650149 1 Tablet(s) PO QHS 10/07/2015 10/21/2016 Inactive diazepam 10 mg tablet RxNorm: 176504 1 Tablet(s) PO QHS 10/07/2015 10/06/2015 Inactive fexofenadine 30 mg/5 mL oral suspension RxNorm: 656312 10 Milliliter(s) PO o ne to two times daily PRN allergies 09/20/2015 12/15/2015 Inactive ceftriaxone 1 gram s olution for injection RxNorm: 6938891 1 Gram(s) IM QD 09/20/2015 09/21/2015 In active Ciprodex 0.3 %-0.1 % ear drops,suspension RxNorm: 348096 4 Drop(s) OTIC BID 09/20/2015 10/03/2015 In active Protonix 40 mg table t,delayed release RxNorm: 406203 1 Tablet(s) PO or per feeding tube BID 08/21/2015 12/18/2015 Inactive Carafate 100 mg/mL o ral suspension RxNorm: 099790 10 Milliliter(s) Misc ellaneous per feeding tube AC & HS 08/21/2015 09/19/2015 Inactive Zyrtec 10 mg tablet RxNorm: 6681058 1 Tablet(s) PO QD No Start Date Active diazepam 20 mg recta l kit RxNorm: 748400 RTL as needed No Start Date Active Lortab Elixir 10 mg- 300 mg/15 mL oral solution RxNorm: 7269630 8 PO Q6-8H as needed No Start Date Active ondansetron HCl 4 mg /5 mL oral solution RxNorm: 494778 10 Milliliter(s) PO a s needed and through tube No Start Date Active sertraline 50 mg tablet RxNorm: 024506 1 Tablet(s) PO QD No Start Date 12/15/2015 Inactive Brittany 180 mg tablet RxNorm: 669805 1 Tablet(s) PO QD No Start Date 06/12/2018 Inactive Generlac 10 gram/15 mL oral solution RxNorm: 781209 15 Milliliter(s) PO B ID No Start Date 01/22/2016 Inactive oxcarbazepine 300 mg /5 mL oral suspension RxNorm: 218555 13.5 Milliliter(s) PO QAM and 15ml in the evening No Start Date 12/15/2015 Inactive Singulair 10 mg tablet RxNorm: 754929 1 Tablet(s) PO QD No Start Date 11/30/2016 Inactive meclizine 12.5 mg ta blet RxNorm: 962141 1 Tablet(s) PO TID as needed for dizziness No Start Date 09/13/2017 Inactive meclizine 12.5 mg ta blet RxNorm: 069889 1 Tablet(s) PO BID No Start Date 12/12/2017 Inactive fluconazole 100 mg t ablet RxNorm: 776018 1 Tablet(s) QD throug h PEG tube No Start Date 05/12/2016 Inactive Flomax 0.4 mg capsule RxNorm: 001026 1 Capsule(s) PO QD No Start Date 06/12/2018 Inactive diazepam 10 mg tablet RxNorm: 287776 1 Tablet(s) PO QHS as needed No Start Date 02/14/2017 Inactive Generlac 10 gram/15 mL oral solution RxNorm: 012937 15 Milliliter(s) PO t wo to three times daily No Start Date 03/02/2018 Inactive oxcarbazepine 300 mg /5 mL oral suspension RxNorm: 598165 15 Milliliter(s) PO B ID No Start [...] Lymphatic neck nodes Overall: anterior cervical chain iasbel ign 03/19/2016 None Full Exam - General [...] CPT-4: J0696 03/19/2016 THER/PROPH/DIAG INJ SC/IM CPT-4: 45566 03/19/2016 DEXAMETHASONE SODIUM PHOS CPT-4: J1100 11/12/2015 THER/PROPH/DIAG INJ SC/IM CPT-4: 44066 11/12/2015 CEFTRIAXONE SODIUM I NJECTION CPT-4: J0696 09/20/2015 THER/PROPH/DIAG INJ SC/IM CPT-4: 96551 09/20/2015 THER/PROPH/DIAG INJ SC/IM CPT-4: 56929 09/10/2015 METHYLPREDNISOLONE 4 0 MG INJ CPT-4: [...] 1: 114/70 Code: 8480-6 BMI: 23.1 Code: 93740-6 Heart Rate 1: 80 bpm Height: 4'6" [...] solid yesterday evening anxiety Quality agitation 03/23/2016 [place] Expert thinks she may be having incre ased [...] severe 08/21/2015 None developmental delay Significant Medi [facility] Conditions seizure disorder 08/21/2015 None Advance Directives No Advance Directive data Encounters Encounter Performer Loca tion Codes Date ([id number]) OFFICE/OUTPA TIENT VISIT EST Diagnosis: Irritability and anger[ICD10: R45.4] Nataliia LINARES [employer] CPT-4: 08753 11/25/2018 ([id number]) OFFICE/OUTPA TIENT VISIT EST Diagnosis: Acute suppurative otitis media without spontaneous rupture of ear drum, bilateral[ICD10: H66.003] Fatou LINARES [employer] CPT-4: 34452 06/13/2018 ([id number]) OFFICE/OUTPA TIENT VISIT EST Diagnosis: Other fatigue[ICD10: R53.83] Diagnosis: Anuria and oliguria[ICD10: R34] Diagnosis: Acute gastritis without bleeding[ICD10: K29.00] Fatou LINARES [employer] [employer] CPT-4: 58841 01/04/2018 ([id number]) OFFICE/OUTPA TIENT VISIT EST Diagnosis: Acute bronchitis, unspecified[ICD10: J20.9] Fatou GILBERT [employer] [facility] CPT-4: 77521 12/31/2017 ([id number]) PREV VISIT E ST AGE 18-39 Diagnosis: Encounter for general adult medical examination without abnormal findings[ICD10: Z00.00] Diagnosis: Severe intellectual disabilities[ICD10: F72] Diagnosis: Allergic rhinitis due to pollen[ICD10: J30.1] Diagnosis: Epilepsy, unspecified, intractable, without status epilepticus[ICD10: G40.919] Diagnosis: Gastro-esophageal reflux disease without esophagitis[ICD10: K21.9] Keily ARANGO [employer] CPT-4: 88293 12/14/2017 ([id number]) OFFICE/OUTPA TIENT VISIT EST Diagnosis: Allergic rhinitis due to pollen[ICD10: J30.1] Diagnosis: Epilepsy, unspecified, intractable, without status epilepticus[ICD10: G40.919] Keily ARANGO [employer] CPT-4: 04534 12/02/2017 ([id number]) OFFICE/OUTPA TIENT VISIT EST Diagnosis: Other allergic rhinitis[ICD10: J30.89] Fatou CASTILLO [employer] CPT-4: 87006 10/12/2017 OFFICE/OUTPATIENT SIT EST Diagnosis: Acute suppurative otitis media without spontaneous rupture of ear drum, recurrent, left ear[ICD10: H66.005] Diagnosis: Epilepsy, unspecified, intractable, without status epilepticus[ICD10: G40.919] Diagnosis: Hesitancy of micturition[ICD10: R39.11] Fatou GILBERT [employer] CPT-4: 95954 09/17/2017 OFFICE/OUTPATIENT SIT EST Diagnosis: Otitis media, unspecified, left ear[ICD10: H66.92] Fatou CASTILLO [employer] CPT-4: 19915 08/06/2017 ([id number]) OFFICE/OUTPA TIENT VISIT EST Diagnosis: Vertigo of central origin, 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.49] Diagnosis: Dizziness and giddiness[ICD10: R42] Keily PEDROZA [facility] CPT-4: 55966 04/01/2017 OFFICE/OUTPATIENT SIT EST Diagnosis: Vomiting, unspecified[ICD10: R11.10] Diagnosis: 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)[ICD10: K56.5] Diagnosis: Personal history of urinary calculi[ICD10: Z87.442] Emely Hdz KEILY PEDROZA [facility] CPT-4: 50829 03/01/2017 ([id number]) OFFICE/OUTPA TIENT VISIT EST Diagnosis: Allergic rhinitis due to pollen[ICD10: J30.1] Diagnosis: Acute and subacute allergic otitis media (mucoid) (sanguinous) (serous), left ear[ICD10: H65.112] Keily Bobby [facility] CPT-4: 11023 11/10/2016 ([id number]) OFFICE/OUTPA TIENT VISIT EST Diagnosis: 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] Diagnosis: Unspecified ovarian cyst, right side[ICD10: N83.201] Diagnosis: Cyst of kidney, 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] Keily PEDROZA [facility] CPT-4: 63180 08/13/2016 ([id number]) OFFICE/OUTPA TIENT VISIT EST Diagnosis: Rash and other nonspecific skin eruption[ICD10: R21] Aziza Magallanes KEILY Diamante [facility] CPT-4: 48531 03/27/2016 ([id number]) OFFICE/OUTPA TIENT VISIT EST Diagnosis: Urinary tract infection, site not specified[ICD10: N39.0] [facility] CPT-[facility]: 36765 03/23/2016 ([id number]) OFFICE/OUTPA TIENT VISIT EST Diagnosis: Retention of urine, unspecified[ICD10: R33.9] Diagnosis: Dysuria[ICD10: R30.0] Diagnosis: Constipation, unspecified[ICD10: K59.00] Aziza ARANGO [facility] CPT-4: 73556 03/19/2016 ([id number]) OFFICE/OUTPA TIENT VISIT EST Diagnosis: Acute sinusitis, unspecified[ICD10: J01.90] Keily COONEY [facility] CPT-4: 83905 03/02/2016 OFFICE/OUTPATIENT SIT EST Diagnosis: Other fatigue[ICD10: R53.83] Diagnosis: Retention of urine, unspecified[ICD10: R33.9] Diagnosis: Dysuria[ICD10: R30.0] Diagnosis: Generalized abdominal pain[ICD10: R10.84] 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] Aziza ARANGO [facility] CPT-4: 88749 02/24/2016 ([id number]) OFFICE/OUTPA TIENT VISIT EST Diagnosis: Chronic mucoid otitis media, right ear[ICD10: H65.31] Diagnosis: Allergic rhinitis, unspecified[ICD10: J30.9] Diagnosis: 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] Keily ARANGO [facility] CPT-4: 86870 12/16/2015 ([id number]) OFFICE/OUTPA TIENT VISIT EST Diagnosis: Allergic rhinitis, unspecified[ICD10: J30.9] Diagnosis: Acute recurrent sinusitis, unspecified[ICD10: J01.91] Keily COONEY [facility] CPT-4: 24102 11/12/2015 ([id number]) OFFICE/OUTPA TIENT VISIT EST Diagnosis: Other seasonal allergic rhinitis[ICD10: J30.2] Diagnosis: Nausea with vomiting, unspecified[ICD10: R11.2] Diagnosis: Epigastric pain[ICD10: R10.13] Aziza ARANGO [facility] CPT-4: 11973 10/16/2015 OFFICE/OUTPATIENT SIT EST Diagnosis: Encounter for follow-up examination after completed treatment for conditions other than malignant neoplasm[ICD10: Z09] Diagnosis: Generalized abdominal pain[ICD10: R10.84] Keily COONEY [facility] CPT-4: 18665 09/23/2015 ([id number]) OFFICE/OUTPA TIENT VISIT EST Diagnosis: Otitis media, unspecified, right ear[ICD10: H66.91] Diagnosis: Constipation, unspecified[ICD10: K59.00] Diagnosis: Allergic rhinitis, unspecified[ICD10: J30.9] Aziza CASTILLO [employer] [facility] CPT-4: 47330 09/20/2015 OFFICE/OUTPATIENT SIT EST Diagnosis: Allergic rhinitis, unspecified[ICD10: J30.9] Diagnosis: Unspecified perforation of tympanic membrane, right ear[ICD10: H72.91] Bibiana CASTILLO [employer] [facility] CPT-4: 19121 09/10/2015 OFFICE/OUTPATIENT SIT NEW Diagnosis: Epilepsy, unspecified, intractable, without status epilepticus[ICD10: G40.919] Diagnosis: Gastric ulcer, unspecified as acute or chronic, without hemorrhage or perforation[ICD10: K25.9] Diagnosis: Severe intellectual disabilities[ICD10: F72] Keily Castillo KEILY LFORES [employer] [facility] CPT-4: 71842 08/21/2015 Plan of Care Planned Activity Notes [...] : R45.4 11/25/2018 Appointment: Nataliia Hsieh [phone] [id number] ACUTE ILLNESS 11/25/2018 Visit Diagnosis Plan: Acute suppurative otitis media without spontaneous rupture of ear drum, bilateral Discussion: cefdinir for 10 days. if worsening symptoms later this week, call clinic. push fluids and tylenol/ibuprofen prn pain or fever. ICD-9 : 382.00 ICD-10 : H66.003 06/13/2018 Appointment: Fatou Onofre [address] ACUTE ILLNESS 06/13/2018 Visit Diagnosis Plan: [...] ICD-10 : K29.00 01/04/2018 Appointment: Fatou Onofre [address] [place], [place] [id number] ACUTE [facility] 01/04/2018 Patient Education: Patient Medication Summary Completed 01/04/2018 Visit Diagnosis Plan: Acute bronchitis, unspecified Discussion: zithromax prescribed to take as directed. continue with allergy meds including flonase to help dry congestion. call office next week if new or worsening symptoms. ICD-9 : 466.0 ICD-10 : J20.9 12/31/2017 Appointment: Fatou Onofre [address] [place], [place] [id number] ACUTE ILLNESS 12/31/2017 Patient Education: Patient Medication [...] G40.919 12/14/2017 Visit Diagnosis Plan: Encounter for [facility] adult medical examination without abnormal findings Discussion: Had recent lab done Follow Up: 3 months ICD-9 : V70.9 ICD-10 : Z00.00 12/14/2017 Appointment: Keily Arango WPtel: [phone] [id number] CHECK UP 12/14/2017 Patient Education: Patient Medication [...] J30.1 12/02/2017 Appointment: Keily Arango WPtel: [phone] ACUTE ILLNESS 12/02/2017 Patient Education: Patient Medication Summary Completed 12/02/2017 Visit Diagnosis Plan: Other allergic rhinitis Discussion: symptoms most likely caused from allergies. patient sent to hospital for decadron injection. instructed to restart patient's flonase at home. if new or worsening symptoms, call or rtc. ICD-9 : 477.8 ICD-10 : J30.89 10/12/2017 Appointment: Fatou Onofre [address] [place] [address] ACUTE ILLNESS 10/12/2017 Patient Education: Patient Medication [...] : G40.919 09/17/2017 [facility] [facility] 09/17/2017 Patient Education: Patient Medication Summary Completed 09/17/2017 Visit Diagnosis Plan: Otitis media, unspecified, left ear Discussion: cefdinir prescribed daily for 10 days. instructed to administer tylenol/ibuprofen for pain or fever. if no improvement, or worsening symptoms, call or rtc. ICD-9 : 380.14 ICD-10 : H66.92 08/06/2017 Appointment: Fatou Onofre [address] [facility] ACUTE ILLNESS 08/06/2017 Patient Education: Patient Medication [...] Keily Arango WPtel: [phone] [facility] FOLLOW UP 04/01/2017 Patient Education: Patient Medication Summary Completed 04/01/2017 Patient Education: Patient Medication Summary Completed 03/09/2017 Care Plan: CT HEAD/BRAIN W/O DYE LOINC : 29205-7 Pending 03/09/2017 Visit Plan: It's difficult to [...] medications indicated. 03/01/2017 Appointment: Emely Hdz WPtel: [facility] [address] ACUTE ILLNESS 03/01/2017 Patient Education: Patient Medication Summary Completed 03/01/2017 Patient Education: Patient Medication Summary Completed 12/17/2016 Visit Diagnosis Plan: Allergic rhinitis due to pollen Discussion: Continue zyrtec/singulair ICD-9 : 477.9 ICD-10 : J30.1 11/10/2016 Visit Diagnosis Plan: Acute and subacute allergic otitis media (mucoid) (sanguinous) (serous), left ear Discussion: Zithromax ICD-9 : 381.05 ICD-10 : H65.112 11/10/2016 Appointment: Keily Arango WPtel: [address] [place] [address] ACUTE ILLNESS 11/10/2016 Patient Education: Patient Medication Summary Completed 11/10/2016 Patient Education: Patient Medication Summary Completed 09/07/2016 Care Plan: URINALYSIS AUTO W/O SCOPE LOINC : 28911-4 Pending 09/07/2016 Visit Diagnosis Plan: Cyst of [...] N83.201 08/13/2016 App[facility]ment: [facility]el[facility] [phone] [facility] 08/12 confirmed-sp FOLLOW UP 08/13/2016 Patient Education: Patient Medication Summary Completed 08/13/2016 Patient Education: Patient Medication Summary Completed 05/19/2016 Care Plan: X-RAY EXAM OF FOOT left foot LOINC : 10499-2 Pending 05/19/2016 Visit Plan: Discussed with Dr Burton gilbert CBC to be drawn Order sent to [facility] Will call with results 03/27/2016 Visit Plan: Discussed with Dr Burton gilbert CBC to be drawn Order sent to [facility] Will call with results 03/27/2016 [phone] [facility] [facility] 03/27/2016 Patient Education: Patient Medication Summary Completed 03/27/2016 Visit Plan: Go for dose of rocephin 1gm IM today and tomorrow then done Diflucan 150mg x1 today Discussed with mom via phone about urology fwup--she will talk with her and let us know 03/23/2016 Appointment: [facility]el[phone] [facility] 03/23 confirmed ~sl FOLLOW UP 03/23/2016 Patient Education: Patient Medication Summary Completed 03/23/2016 Visit Plan: Per karen Brizuela cath for UA and culture today Ok to have a standing order for further UA needs at for straight cath Rocephin IM today and daily through Wednesday Mom has arranged a family friend that is an PHARMACIST to give Wednesday and Sundays injections - [...] arranged a family friend that is an PHARMACIST to give Wednesday and Sundays injections - [...] know 03/19/2016 Visit Plan: Per Dr Arango, [facility] t cath for UA and culture today Ok to have a standing order for further UA needs at for straight cath Rocephin IM today and daily through Wednesday Mom has arranged a family friend that is an PHARMACIST to give Wednesday and Sundays injections - [...] us know 03/19/2016 Appointment: Aziza Magallanes [address] [facility] ACUTE ILLNESS 03/19/2016 Patient Education: Patient Medication Summary Completed 03/19/2016 Visit Plan: 1 more week of cefdinir 03/02/2016 Appointment: Keily Arango WPtel: [address] [place], [place] [phone] 03/02 confirmed~sl WORK IN 03/02/2016 Patient Education: [...] with results 02/24/2016 Appointment: Aziza Magallanes [address] [facility] ACUTE ILLNESS 02/24/2016 Patient Education: Patient Medication Summary Completed 02/24/2016 Care Plan: CHEST X-RAY 2VW FRONTAL&LATL LOINC : 80029-4 Pending 02/24/2016 Care Plan: X-RAY EXAM OF ABDOMEN LOINC : 74568-0 Pending 02/24/2016 Visit Plan: Repeat zithromax x1 wee k Ciprodex to right ear x1 week Add Pepcid q HS x2-4 weeks for total histamine blockade and for extra stomach protection while on zithromax 12/16/2015 Appointment: Keily Arango WPtel: [address] [place], [place] [phone] [place] 6/9 lm~sl 6/10 lm ~sl FOLLOW UP 12/16/2015 Patient Education: Patient Medication Summary Completed 12/16/2015 Patient Education: [facility] - Saving AutoInj - Sertraline HCL - 18-64 - Dynamic Portal ID Completed 12/16/2015 Visit Plan: Saline nasal flushes pr n. Tylenol/Motrin prn headache. Notify if persists/symptoms worsens Dexamethasone given 11/12/2015 Visit Plan: Saline nasal flushes pr n. Tylenol/Motrin prn headache. Notify if persists/symptoms worsens Dexamethasone given 11/12/2015 Appointment: Keily Arango WPtel: [address] [place], [place] [phone] [place] 5/9 lm~sl 5/10 lm~sl 5/10 confirm-sp [...] visits for Belk[place] 10/16/2015 Appointment: Aziza Magallanes [address] [place], [place] [phone] ACUTE ILLNESS 10/16/2015 Patient Education: Patient Medication Summary Completed 10/16/2015 Appointment: Aziza Magallanes [address] [place], [place] [phone] [place] canceled, feeling better CANCELED 10/03/2015 Visit Plan: No further abx needed G o back to [facility] for next 3 days and restart carafate Notify if abdominal pain worsens 09/23/2015 Appointment: Keily Arango tel: [address] [place], [place] [phone] 09/19 confirmed-sp FOLLOW UP 09/23/2015 Patient Education: [...] Order sent to [facility] since [facility] does not have [...] Order sent to [facility] since [facility] does not have [...] try for now. 09/20/2015 Appointment: [phone] [facility] [facility] 09/20/2015 Patient Education: Patient Medication [...] Appointment: Bibiana Garg [facility]el[facility] [phone] [facility] 09/08 confirmed-sp ACUTE ILLNESS 09/10/2015 Patient Education: Patient Medication Summary Completed 09/10/2015 Visit Plan: Increase Protonix to 40 mg po BID for 1month Continue carafate at q AC dosing for full month then wean off Jevity for 2 more days then advance diet if able Continue current meds 08/21/2015 Appointment: Keily Arango WPtel: [phone] [facility] [place] NEW PATIENT 08/21/2015 Patient Education: Patient Medication [...] history of eating objects - nail clippers, brias needles, etc Will get CXR and abdominal/KUB [...] [facility] to [facility]. Recheck in [...] Order sent to [facility] since [facility] does not have [...] further abx nee ded Go back to [facility] for next 3 days and restart carafate Notify if abdominal pain worsens . [facility] and culture today Ok to have a standing order for further UA needs at for straight cath Rocephin IM today and daily through Wednesday Mom has arranged a family friend that is an PHARMACIST to give Wednesday and Sundays injections - [...] let us know . [facility] for UA and culture today Ok to have a standing order for further UA needs at for straight cath Rocephin IM today and daily through Wednesday Mom has arranged a family friend that is an PHARMACIST to give Wednesday and Sundays injections - [...] let us know . [facility] cath for UA and culture today Ok to have a standing order for further UA needs at for straight cath Rocephin IM today and daily through Wednesday Mom has arranged a family friend that is an PHARMACIST to give Wednesday and Sundays injections - [...] Lengthy visit Trial singulair in addition to zyrterichie and yodit If not helpful, will need to see [...]
--- OUTSIDE RECORDS SUMMARY | 2019-11-10 19:51 | XMS REPORT | CCD ---
Author Author Belkys Arango D.O. Organization KEILY ARANGO DO [facility] Address [address] [place] [address] Phone Care Team Providers Care Parole Hearing Officer Name Role Phone Keily Arango D.O., PP Unavailable CCM Unavailable Summary Purpose Interface Exchange Insurance Providers Payer name Policy type / Coverage type Covered alliance party ID Effective Begin Date Effective End Date [employer] [facility] [place] Medicaid [id number] 2018 Unknown Family History Family History data not found Social History Social History Element Codes Description Effective Dates Marital status Unknown S halima 08/21/2015 Employment Unknown Curre ntly unemployed Physically handicapped 08/21/[address]: 119028266 Has never smoked or chewed tobacco 08/21/[address]: 628523316 Never drinks alcohol 08/21/2015 Allergies, Adverse Reactions, [...] Instructions meclizine 12.5 mg ta blet RxNorm: 333623 1 Tablet(s) PO TID as needed 02/06/2019 03/07/2019 Ac tive change in quantity Ciprodex 0.3 %-0.1 % ear drops,suspension RxNorm: 769339 DROP(S) 4 DROP(S) ATILIO C BID 01/30/2019 02/12/2019 Ac tive diazepam 10 mg tablet RxNorm: 441177 1 Tablet(s) PO QHS as needed 01/27/2019 03/27/2019 Active sertraline 50 mg tablet RxNorm: 067119 1 Tablet(s) PO QHS 12/29/2018 06/26/2019 Active famotidine 20 mg tablet RxNorm: 146206 1 Tablet(s) PO QHS 12/29/2018 06/26/2019 Active Ciprodex 0.3 %-0.1 % ear drops,suspension RxNorm: 988125 DROP(S) 4 DROP(S) ATILIO C BID 12/14/2018 12/27/2018 Inactive Generlac 10 gram/15 mL oral solution RxNorm: 395487 15 Milliliter(s) PO T WO TO THREE TIMES DAILY 12/06/2018 06/03/2019 Active Protonix 40 mg table t,delayed release RxNorm: 744384 1 Tablet(s) PO or per feeding tube BID 11/24/2018 05/22/2019 Active meclizine 12.5 mg ta blet RxNorm: 701642 1 Tablet(s) PO TID as needed 11/11/2018 02/06/2019 In active change in quantity Ciprodex 0.3 %-0.1 % ear drops,suspension RxNorm: 299031 DROP(S) 4 DROP(S) ATILIO C BID 11/08/2018 11/21/2018 Inactive diazepam 10 mg tablet RxNorm: 678942 1 Tablet(s) PO QHS as needed 10/21/2018 11/19/2018 Inactive Generlac 10 gram/15 mL oral solution RxNorm: 172578 Milliliter(s) 15 MILL ILITER(S) PO TWO TO THREE TIMES DAILY 10/07/2018 11/05/2018 Inactive Ciprodex 0.3 %-0.1 % ear drops,suspension RxNorm: 797926 DROP(S) DROP(S) 4 JENELLE P(S) OTIC BID 08/26/2018 09/08/2018 Inactive meclizine 12.5 mg ta blet RxNorm: 995895 1 TABLET(S) PO TID NEEDED 07/25/2018 10/22/2018 In active change in quantity oxcarbazepine 300 mg /5 mL (60 mg/mL) oral suspension RxNorm: 954592 15 Milliliter(s) PO BID 07/08/2018 01/03/2019 Inactive oxcarbazepine 300 mg /5 mL (60 mg/mL) oral suspension RxNorm: 207579 15 Milliliter(s) PO BID 07/08/2018 07/07/2018 Inactive sertraline 50 mg tablet RxNorm: 552720 1 TABLET(S) PO QHS 07/06/2018 12/28/2018 Inactive Singulair 10 mg tablet RxNorm: 013431 1 TABLET(S) PO QD 06/24/2018 03/20/2019 Active Ciprodex 0.3 %-0.1 % ear drops,suspension RxNorm: 151032 DROP(S) 4 DROP(S) ATILIO C BID 06/20/2018 06/19/2018 Inactive Ciprodex 0.3 %-0.1 % ear drops,suspension RxNorm: 367575 Drop(s) DROP(S) 4 JENELLE P(S) OTIC BID 06/20/2018 07/03/2018 Inactive cefdinir 250 mg/5 mL oral suspension RxNorm: 700289 12 Milliliter(s) PO Q D though PEG tube 06/13/2018 06/22/2018 Inactive famotidine 20 mg tablet RxNorm: 766823 1 Tablet(s) PO QHS 05/31/2018 11/26/2018 Inactive famotidine 40 mg/5 m L (8 mg/mL) oral suspension RxNorm: 070346 2.5 Milliliter(s) PO QHS 04/29/2018 06/12/2018 Inactive meclizine 12.5 mg ta blet RxNorm: 426210 1 TABLET(S) PO TID NEEDED 04/25/2018 07/23/2018 In active change in quantity Generlac 10 gram/15 mL oral solution RxNorm: 932320 Milliliter(s) 15 MILL ILITER(S) PO TWO TO THREE TIMES DAILY 04/04/2018 05/03/2018 Inactive Ciprodex 0.3 %-0.1 % ear drops,suspension RxNorm: 457122 Drop(s) 4 DROP(S) ATILIO C BID 04/04/2018 04/17/2018 Inactive diazepam 10 mg tablet RxNorm: 594453 1 Tablet(s) PO QHS as needed 04/04/2018 05/03/2018 Inactive famotidine 40 mg/5 m L (8 mg/mL) oral suspension RxNorm: 972467 2.5 Milliliter(s) PO QHS 04/04/2018 04/28/2018 Inactive Generlac 10 gram/15 mL oral solution RxNorm: 200485 15 MILLILITER(S) PO T WO TO THREE TIMES DAILY 03/24/2018 04/03/2018 Inactive Singulair 10 mg tablet RxNorm: 930739 1 TABLET(S) PO QD 03/18/2018 06/15/2018 Inactive Ciprodex 0.3 %-0.1 % ear drops,suspension RxNorm: 198699 Drop(s) 4 DROP(S) ATILIO C BID 03/08/2018 03/21/2018 Inactive Generlac 10 gram/15 mL oral solution RxNorm: 416631 15 Milliliter(s) PO t wo to three times daily 03/03/2018 03/23/2018 Inactive meclizine 12.5 mg ta blet RxNorm: 826841 1 Tablet(s) PO TID as needed 02/10/2018 04/10/2018 In active change in quantity meclizine 12.5 mg ta blet RxNorm: 643717 1 Tablet(s) PO BID as needed 02/07/2018 02/09/2018 In active change in quantity Ciprodex 0.3 %-0.1 % ear drops,suspension RxNorm: 149772 Drop(s) 4 DROP(S) ATILIO C BID 02/02/2018 03/08/2018 Inactive sertraline 50 mg tablet RxNorm: 962798 1 TABLET(S) PO QHS 01/25/2018 07/05/2018 Inactive Zithromax 200 mg/5 m L oral suspension RxNorm: 601975 12.5 Milliliter(s) PO QD 12/31/2017 01/04/2018 In active Pepcid 20 mg tablet RxNorm: 298329 TABLET(S) 1 TABLET(S) PO QHS 12/28/2017 04/29/2018 Inactive famotidine 40 mg/5 m L (8 mg/mL) oral suspension RxNorm: 092709 2.5 Milliliter(s) PO QHS 12/28/2017 12/27/2017 Inactive famotidine 40 mg/5 m L (8 mg/mL) oral suspension RxNorm: 566070 2.5 Milliliter(s) PO QHS 12/28/2017 04/03/2018 Inactive Ciprodex 0.3 %-0.1 % ear drops,suspension RxNorm: 222021 Drop(s) 4 DROP(S) ATILIO C BID 12/27/2017 02/02/2018 Inactive meclizine 12.5 mg ta blet RxNorm: 268469 1 Tablet(s) PO BID as needed 12/23/2017 02/06/2018 In active change in quantity Protonix 40 mg table t,delayed release RxNorm: 157445 1 Tablet(s) PO or per feeding tube BID 12/16/2017 07/13/2018 Inactive oxcarbazepine 300 mg /5 mL (60 mg/mL) oral suspension RxNorm: 935644 15 Milliliter(s) PO BID 12/16/2017 07/08/2018 Inactive meclizine 12.5 mg ta blet RxNorm: 270575 1 Tablet(s) PO BID as needed 12/15/2017 02/07/2018 In active change in quantity Pepcid 40 mg/5 mL (8 mg/mL) oral suspension RxNorm: 045839 5 Milliliter(s) PO QH S to replace nighttime pantoprazole dose 12/14/2017 12/27/2017 Inactive meclizine 12.5 mg ta blet RxNorm: 638126 1 Tablet(s) PO BID as needed 12/13/2017 12/23/2017 In active diazepam 10 mg tablet RxNorm: 120272 1 Tablet(s) PO QHS as needed 12/02/2017 03/01/2018 Inactive prednisolone 15 mg/5 mL oral solution RxNorm: 497739 5 Milliliter(s) PO BI D for 3 days then 5ml daily for 3 days then 2.5ml daily for 3 days 12/02/2017 12/13/2017 Inactive sertraline 50 mg tablet RxNorm: 487780 1 Tablet(s) PO QHS 11/04/2017 01/24/2018 Inactive Ciprodex 0.3 %-0.1 % ear drops,suspension RxNorm: 198679 Drop(s) 4 DROP(S) ATILIO C BID 10/18/2017 10/31/2017 Inactive Ciprodex 0.3 %-0.1 % ear drops,suspension RxNorm: 532728 Drop(s) 4 DROP(S) ATILIO C BID 10/18/2017 12/27/2017 Inactive Singulair 10 mg tablet RxNorm: 241943 1 Tablet(s) PO QD 09/30/2017 03/17/2018 Inactive diazepam 5 mg/5 mL ( 1 mg/mL) oral solution RxNorm: 004771 2.5 Milliliter(s) PO QD give additional 5 mg dose if seizure occurs 09/17/2017 No Stop Date Active Bactrim DS 800 mg-16 0 mg tablet RxNorm: 041906 1 Tablet(s) PO BID 09/17/2017 09/23/2017 Inactive Ciprodex 0.3 %-0.1 % ear drops,suspension RxNorm: 914731 4 DROP(S) OTIC BID 09/13/2017 10/18/2017 In active cefdinir 250 mg/5 mL oral suspension RxNorm: 768576 12 Milliliter(s) PO Q D though PEG tube 08/06/2017 08/15/2017 Inactive sertraline 50 mg tablet RxNorm: 199603 1 Tablet(s) PO QHS 08/02/2017 11/04/2017 Inactive Ciprodex 0.3 %-0.1 % ear drops,suspension RxNorm: 653381 4 DROP(S) OTIC BID 07/22/2017 08/11/2017 In active Singulair 10 mg tablet RxNorm: 080210 1 Tablet(s) PO QD 06/30/2017 09/30/2017 Inactive diazepam 10 mg tablet RxNorm: 781478 TAKE 1 TABLET BY MOUTH EVERY NIGHT AT [facility] NEEDED 06/04/2017 07/03/2017 Inactive oxcarbazepine 300 mg /5 mL (60 mg/mL) oral suspension RxNorm: 480907 15 MILLILITER(S) PO BID 05/03/2017 12/16/2017 Inactive sertraline 50 mg tablet RxNorm: 524199 1 Tablet(s) PO QHS 05/03/2017 08/02/2017 Inactive Protonix 40 mg table t,delayed release RxNorm: 319717 1 Tablet(s) PO or per feeding tube BID 04/26/2017 12/16/2017 Inactive Ciprodex 0.3 %-0.1 % ear drops,suspension RxNorm: 387276 4 DROP(S) OTIC BID 04/26/2017 05/23/2017 In active Generlac 10 gram/15 mL oral solution RxNorm: 687318 Milliliter(s) TAKE 15 ML BY MOUTH TWO-THREE TIMES DAILY 04/08/2017 03/03/2018 Inactive Singulair 10 mg tablet RxNorm: 400858 1 Tablet(s) PO QD 03/03/2017 06/30/2017 Inactive diazepam 10 mg tablet RxNorm: 680673 1 Tablet(s) PO QHS as needed 02/15/2017 06/04/2017 Inactive Singulair 10 mg tablet RxNorm: 135560 1 Tablet(s) PO QD 12/01/2016 03/03/2017 Inactive Diflucan 150 mg tablet RxNorm: 556292 Tablet(s) Give 1 tab PO now and then rep eat dose in 5 days 11/10/2016 03/31/2017 Inactive Zithromax 200 mg/5 m L oral suspension RxNorm: 573052 12.5 Milliliter(s) PO QD 11/10/2016 11/14/2016 In active Singulair 10 mg tablet RxNorm: 858704 TAKE 1 TABLET BY MOUTH ONCE DAILY 11/02/2016 12/01/2016 In active diazepam 10 mg tablet RxNorm: 935368 TAKE 1 TABLET BY MOUTH EVERY NIGHT AT [facility] NEEDED 10/21/2016 11/19/2016 Inactive sertraline 50 mg tablet RxNorm: 343569 1 Tablet(s) PO QHS 10/12/2016 01/09/2017 Inactive fluconazole 100 mg t ablet RxNorm: 655979 1 Tablet(s) PO QD 09/22/2016 09/24/2016 Inactive fluconazole 100 mg t ablet RxNorm: 725854 1 Tablet(s) PO QD 09/22/2016 09/21/2016 Inactive Bactrim DS 800 mg-16 0 mg tablet RxNorm: 993557 1 Tablet(s) PO BID 09/10/2016 09/09/2016 Inactive Bactrim DS 800 mg-16 0 mg tablet RxNorm: 806146 1 Tablet(s) PO BID 09/10/2016 09/16/2016 Inactive oxcarbazepine 300 mg /5 mL (60 mg/mL) oral suspension RxNorm: 295087 15 Milliliter(s) PO BID 09/07/2016 03/05/2017 Inactive sertraline 50 mg tablet RxNorm: 331996 1 Tablet(s) PO QHS 07/06/2016 10/03/2016 Inactive Pepcid 20 mg tablet RxNorm: 716417 Tablet(s) 1 TABLET(S) PO QHS 07/06/2016 03/08/2017 Inactive sertraline 50 mg tablet RxNorm: 433061 1 Tablet(s) PO QHS 06/08/2016 05/03/2017 Inactive Generlac 10 gram/15 mL oral solution RxNorm: 265008 Milliliter(s) TAKE 15 ML BY MOUTH TWO-THREE TIMES DAILY 06/08/2016 09/08/2016 Inactive Pepcid 20 mg tablet RxNorm: 399967 1 TABLET(S) PO QHS 06/04/2016 07/05/2016 Inactive fluconazole 100 mg t ablet RxNorm: 105624 1 Tablet(s) QD throug h PEG tube 05/13/2016 12/01/2017 In active Diflucan 150 mg tablet RxNorm: 219256 Give 1 tab PO now and then repeat dose i n 5 days 03/19/2016 11/09/2016 Inactive ceftriaxone 1 gram s olution for injection RxNorm: 7812197 1 Gram(s) IM QD and Wednesday03/19/2016 11/09/2016 Inactive lidocaine 10 mg/mL ( 1 %) injection solution RxNorm: 0490857 Use as directed to reconstitute Rocephin when needed 03/19/2016 12/13/2017 Inactive Generlac 10 gram/15 mL oral solution RxNorm: 513041 TAKE 15 ML BY MOUTH T WO-THREE TIMES DAILY 03/19/2016 06/07/2016 Inactive oxcarbazepine 300 mg /5 mL oral suspension RxNorm: 228849 15 Milliliter(s) PO B ID 03/13/2016 09/07/2016 In active Ciprodex 0.3 %-0.1 % ear drops,suspension RxNorm: 300036 4 DROP(S) OTIC BID 03/09/2016 03/15/2016 In active cefdinir 250 mg/5 mL oral suspension RxNorm: 833090 11.75 Milliliter(s) P O QD though PEG tube 03/02/2016 03/08/2016 Inactive cefdinir 250 mg/5 mL oral suspension RxNorm: 272591 11.75 Milliliter(s) P O QD though PEG tube 02/24/2016 03/01/2016 Inactive cefdinir 250 mg/5 mL oral suspension RxNorm: 442436 11.75 Milliliter(s) P O QD though PEG tube 02/24/2016 02/23/2016 Inactive Ciprodex 0.3 %-0.1 % ear drops,suspension RxNorm: 006523 4 Drop(s) OTIC BID 02/24/2016 03/01/2016 In active Generlac 10 gram/15 mL oral solution RxNorm: 490549 TAKE 15 ML BY MOUTH T WICE DAILY 02/17/2016 03/18/2016 Inactive Generlac 10 gram/15 mL oral solution RxNorm: 437778 15 Milliliter(s) PO B ID 01/23/2016 02/16/2016 In active Pepcid 20 mg tablet RxNorm: 862159 1 TABLET(S) PO QHS 01/13/2016 06/03/2016 Inactive Ciprodex 0.3 %-0.1 % ear drops,suspension RxNorm: 113720 4 Drop(s) OTIC BID 12/23/2015 12/29/2015 In active sertraline 50 mg tablet RxNorm: 609462 1 Tablet(s) PO QHS 12/16/2015 06/07/2016 Inactive Zithromax 500 mg tablet RxNorm: 738238 1 Tablet(s) PO QD 12/16/2015 12/22/2015 Inactive Pepcid 20 mg tablet RxNorm: 774547 1 Tablet(s) PO QHS 12/16/2015 01/12/2016 Inactive Zithromax 500 mg tablet RxNorm: 210755 1 Tablet(s) PO QD 11/12/2015 11/18/2015 Inactive Singulair 10 mg tablet RxNorm: 937787 1 Tablet(s) PO BID 10/16/2015 11/11/2015 Inactive diazepam 10 mg tablet RxNorm: 469947 1 Tablet(s) PO QHS 10/07/2015 10/21/2016 Inactive diazepam 10 mg tablet RxNorm: 720051 1 Tablet(s) PO QHS 10/07/2015 10/06/2015 Inactive fexofenadine 30 mg/5 mL oral suspension RxNorm: 531146 10 Milliliter(s) PO o ne to two times daily PRN allergies 09/20/2015 12/15/2015 Inactive ceftriaxone 1 gram s olution for injection RxNorm: 9314074 1 Gram(s) IM QD 09/20/2015 09/21/2015 In active Ciprodex 0.3 %-0.1 % ear drops,suspension RxNorm: 960510 4 Drop(s) OTIC BID 09/20/2015 10/03/2015 In active Protonix 40 mg table t,delayed release RxNorm: 464096 1 Tablet(s) PO or per feeding tube BID 08/21/2015 12/18/2015 Inactive Carafate 100 mg/mL o ral suspension RxNorm: 336653 10 Milliliter(s) Misc ellaneous per feeding tube AC & HS 08/21/2015 09/19/2015 Inactive Zyrtec 10 mg tablet RxNorm: 3783268 1 Tablet(s) PO QD No Start Date Active diazepam 20 mg recta l kit RxNorm: 230791 RTL as needed No Start Date Active Lortab Elixir 10 mg- 300 mg/15 mL oral solution RxNorm: 9805334 8 PO Q6-8H as needed No Start Date Active ondansetron HCl 4 mg /5 mL oral solution RxNorm: 678708 10 Milliliter(s) PO a s needed and through tube No Start Date Active sertraline 50 mg tablet RxNorm: 445406 1 Tablet(s) PO QD No Start Date 12/15/2015 Inactive Brittany 180 mg tablet RxNorm: 810925 1 Tablet(s) PO QD No Start Date 06/12/2018 Inactive Generlac 10 gram/15 mL oral solution RxNorm: 880448 15 Milliliter(s) PO B ID No Start Date 01/22/2016 Inactive oxcarbazepine 300 mg /5 mL oral suspension RxNorm: 336818 13.5 Milliliter(s) PO QAM and 15ml in the evening No Start Date 12/15/2015 Inactive Singulair 10 mg tablet RxNorm: 327882 1 Tablet(s) PO QD No Start Date 11/30/2016 Inactive meclizine 12.5 mg ta blet RxNorm: 786039 1 Tablet(s) PO TID as needed for dizziness No Start Date 09/13/2017 Inactive meclizine 12.5 mg ta blet RxNorm: 102467 1 Tablet(s) PO BID No Start Date 12/12/2017 Inactive fluconazole 100 mg t ablet RxNorm: 901463 1 Tablet(s) QD throug h PEG tube No Start Date 05/12/2016 Inactive Flomax 0.4 mg capsule RxNorm: 250750 1 Capsule(s) PO QD No Start Date 06/12/2018 Inactive diazepam 10 mg tablet RxNorm: 753630 1 Tablet(s) PO QHS as needed No Start Date 02/14/2017 Inactive Generlac 10 gram/15 mL oral solution RxNorm: 205828 15 Milliliter(s) PO t wo to three times daily No Start Date 03/02/2018 Inactive oxcarbazepine 300 mg /5 mL oral suspension RxNorm: 070317 15 Milliliter(s) PO B ID No Start [...] CPT-4: J0696 03/19/2016 THER/PROPH/DIAG INJ SC/IM CPT-4: 19079 03/19/2016 DEXAMETHASONE SODIUM PHOS CPT-4: J1100 11/12/2015 THER/PROPH/DIAG INJ SC/IM CPT-4: 17572 11/12/2015 CEFTRIAXONE SODIUM I NJECTION CPT-4: J0696 09/20/2015 THER/PROPH/DIAG INJ SC/IM CPT-4: 32652 09/20/2015 THER/PROPH/DIAG INJ SC/IM CPT-4: 79626 09/10/2015 METHYLPREDNISOLONE 4 0 MG INJ CPT-4: [...] 1: 114/70 Code: 8480-6 BMI: 23.1 Code: 57854-1 Heart Rate 1: 80 bpm Height: 4'6" [...] solid yesterday evening anxiety Quality agitation 03/23/2016 Ramp Attendant thinks she may be having incre ased [...] severe 08/21/2015 None developmental delay Significant Medi rossy Conditions seizure disorder 08/21/2015 None Advance Directives No Advance Directive data Encounters Encounter Performer Loca tion Codes Date ([id number]) OFFICE/OUTPA TIENT VISIT EST Diagnosis: Irritability and anger[ICD10: R45.4] Nataliia [facility] CPT-4: 33126 11/25/2018 ([id number]) OFFICE/OUTPA TIENT VISIT EST Diagnosis: Acute suppurative otitis media without spontaneous rupture of ear drum, bilateral[ICD10: H66.003] Fatou Bobby [facility] CPT-4: 77279 06/13/2018 ([id number]) OFFICE/OUTPA TIENT VISIT EST Diagnosis: Other fatigue[ICD10: R53.83] Diagnosis: Anuria and oliguria[ICD10: R34] Diagnosis: Acute gastritis without bleeding[ICD10: K29.00] Fatou Bobby KitOrderJAMES [employer] CPT-4: 44697 01/04/2018 ([id number]) OFFICE/OUTPA TIENT VISIT EST Diagnosis: Acute bronchitis, unspecified[ICD10: J20.9] Fatou Bobby [employer] [employer] CPT-4: 44252 12/31/2017 ([id number]) PREV VISIT E ST AGE 18-39 Diagnosis: Encounter for general adult medical examination without abnormal findings[ICD10: Z00.00] Diagnosis: Severe intellectual disabilities[ICD10: F72] Diagnosis: Allergic rhinitis due to pollen[ICD10: J30.1] Diagnosis: Epilepsy, unspecified, intractable, without status epilepticus[ICD10: G40.919] Diagnosis: Gastro-esophageal reflux disease without esophagitis[ICD10: K21.9] [facility] 68239 12/14/2017 ([id number]) OFFICE/OUTPA TIENT VISIT EST Diagnosis: Allergic rhinitis due to pollen[ICD10: J30.1] Diagnosis: Epilepsy, unspecified, intractable, without status epilepticus[ICD10: G40.919] [facility] CPT[facility]: 26722 12/02/2017 ([id number]) OFFICE/OUTPA TIENT VISIT EST Diagnosis: Other allergic rhinitis[ICD10: J30.89] Fatou [facility] CPT-4: 54091 10/12/2017 OFFICE/OUTPATIENT SIT EST Diagnosis: Acute suppurative otitis media without spontaneous rupture of ear drum, recurrent, left ear[ICD10: H66.005] Diagnosis: Epilepsy, unspecified, intractable, without status epilepticus[ICD10: G40.919] Diagnosis: Hesitancy of micturition[ICD10: R39.11] Fatou [facility]ILLO [facility] CPT-4: 04540 09/17/2017 OFFICE/OUTPATIENT SIT EST Diagnosis: Otitis media, unspecified, left ear[ICD10: H66.92] Fatou CASTILLO [facility] CPT-4: 76923 08/06/2017 ([id number]) OFFICE/OUTPA TIENT VISIT EST Diagnosis: Vertigo of central origin, 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.49] Diagnosis: Dizziness and giddiness[ICD10: R42] [facility] 39724 04/01/2017 OFFICE/OUTPATIENT SIT EST Diagnosis: Vomiting, unspecified[ICD10: R11.10] Diagnosis: 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)[ICD10: K56.5] Diagnosis: Personal history of urinary calculi[ICD10: Z87.442] Emely LÓPEZQUELINE ThorAlicia PEPE COONEY [facility] CPT-4: 88724 03/01/2017 ([id number]) OFFICE/OUTPA TIENT VISIT EST Diagnosis: Allergic rhinitis due to pollen[ICD10: J30.1] Diagnosis: Acute and subacute allergic otitis media (mucoid) (sanguinous) (serous), left ear[ICD10: H65.112] Keily Pepenicole LINARES [facility] CPT-[facility]: 35916 11/10/2016 ([id number]) OFFICE/OUTPA TIENT VISIT EST Diagnosis: 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] Diagnosis: Unspecified ovarian cyst, right side[ICD10: N83.201] Diagnosis: Cyst of kidney, 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] Keily Conchita KEILY [facility]licia [facility] CPT-[facility]: 37920 08/13/2016 ([id number]) OFFICE/OUTPA TIENT VISIT EST Diagnosis: Rash and other nonspecific skin eruption[ICD10: R21] Azizafelix Magallanes [facility]ILY [facility] 63810 03/27/2016 ([id number]) OFFICE/OUTPA TIENT VISIT EST Diagnosis: Urinary tract infection, site not specified[ICD10: N39.0] Keily Pepejamesdominique KEILY [facility]licia [facility] CPT-[facility]: 55771 03/23/2016 ([id number]) OFFICE/OUTPA TIENT VISIT EST Diagnosis: Retention of urine, unspecified[ICD10: R33.9] Diagnosis: Dysuria[ICD10: R30.0] Diagnosis: Constipation, unspecified[ICD10: K59.00] Azizamabel Magallanes KEILY [facility] CPT-[facility]: 59759 03/19/2016 ([id number]) OFFICE/OUTPA TIENT VISIT EST Diagnosis: Acute sinusitis, unspecified[ICD10: J01.90] Keily PEDROZA [facility] CPT-4: 44072 03/02/2016 OFFICE/OUTPATIENT SIT EST Diagnosis: Other fatigue[ICD10: R53.83] Diagnosis: Retention of urine, unspecified[ICD10: R33.9] Diagnosis: Dysuria[ICD10: R30.0] Diagnosis: Generalized abdominal pain[ICD10: R10.84] 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] [facility]: 95909 02/24/2016 ([id number]) OFFICE/OUTPA TIENT VISIT EST Diagnosis: Chronic mucoid otitis media, right ear[ICD10: H65.31] Diagnosis: Allergic rhinitis, unspecified[ICD10: J30.9] Diagnosis: 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] [facility]: 44890 12/16/2015 ([id number]) OFFICE/OUTPA TIENT VISIT EST Diagnosis: Allergic rhinitis, unspecified[ICD10: J30.9] Diagnosis: Acute recurrent sinusitis, unspecified[ICD10: J01.91] Keily PEDROZA [facility] CPT-4: 44390 11/12/2015 ([id number]) OFFICE/OUTPA TIENT VISIT EST Diagnosis: Other seasonal allergic rhinitis[ICD10: J30.2] Diagnosis: Nausea with vomiting, unspecified[ICD10: R11.2] Diagnosis: Epigastric pain[ICD10: R10.13] [facility]: 83772 10/16/2015 OFFICE/OUTPATIENT SIT EST Diagnosis: Encounter for follow-up examination after completed treatment for conditions other than malignant neoplasm[ICD10: Z09] Diagnosis: Generalized abdominal pain[ICD10: R10.84] Keily COONEY [facility] CPT-4: 67945 09/23/2015 ([id number]) OFFICE/OUTPA TIENT VISIT EST Diagnosis: Otitis media, unspecified, right ear[ICD10: H66.91] Diagnosis: Constipation, unspecified[ICD10: K59.00] Diagnosis: Allergic rhinitis, unspecified[ICD10: J30.9] Aziza ARANGO [employer] CPT-4: 58752 09/20/2015 OFFICE/OUTPATIENT SIT EST Diagnosis: Allergic rhinitis, unspecified[ICD10: J30.9] Diagnosis: Unspecified perforation of tympanic membrane, right ear[ICD10: H72.91] Bibiana ARANGO [employer] CPT-4: 64275 09/10/2015 OFFICE/OUTPATIENT SIT NEW Diagnosis: Epilepsy, unspecified, intractable, without status epilepticus[ICD10: G40.919] Diagnosis: Gastric ulcer, unspecified as acute or chronic, without hemorrhage or perforation[ICD10: K25.9] Diagnosis: Severe intellectual disabilities[ICD10: F72] Keily COONEY [employer] CPT-4: 15961 08/21/2015 Plan of Care Planned Activity Notes [...] : R45.4 11/25/2018 Appointment: Nataliia Hsieh [address] ACUTE ILLNESS 11/25/2018 Visit Diagnosis Plan: Acute suppurative otitis media without spontaneous rupture of ear drum, bilateral Discussion: cefdinir for 10 days. if worsening symptoms later this week, call clinic. push fluids and tylenol/ibuprofen prn pain or fever. ICD-9 : 382.00 ICD-10 : H66.003 06/13/2018 Appointment: Fatou Onofre [address] ACUTE ILLNESS 06/13/2018 Visit Diagnosis Plan: [...] ICD-10 : K29.00 01/04/2018 Appointment: Fatou Onofre [address] [place] [address] ACUTE ILLNESS 01/04/2018 Patient Education: Patient Medication Summary Completed 01/04/2018 Visit Diagnosis Plan: Acute bronchitis, unspecified Discussion: zithromax prescribed to take as directed. continue with allergy meds including flonase to help dry congestion. call office next week if new or worsening symptoms. ICD-9 : 466.0 ICD-10 : J20.9 12/31/2017 Appointment: Fatou Onofre [address] [place] [address] ACUTE ILLNESS 12/31/2017 Patient Education: Patient Medication [...] G40.919 12/14/2017 Visit Diagnosis Plan: Encounter for [facility] medical examination without abnormal findings Discussion: Had recent lab done Follow Up: 3 months ICD-9 : V70.9 ICD-10 : Z00.00 12/14/2017 Appointment: Keily Arango WPtel: [phone] [id number] CHECK UP 12/14/2017 Patient Education: Patient Medication [...] Appointment: Keily Arango WPtel: [phone] [id number] ACUTE ILLNESS 12/02/2017 Patient Education: Patient Medication Summary Completed 12/02/2017 Visit Diagnosis Plan: Other allergic rhinitis Discussion: symptoms most likely caused from allergies. patient sent to hospital for decadron injection. instructed to restart patient's flonase at home. if new or worsening symptoms, call or rtc. ICD-9 : 477.8 ICD-10 : J30.89 10/12/2017 Appointment: Fatou Onofre [address] ACUTE ILLNESS 10/12/2017 Patient Education: Patient [...] ICD-10 : G40.919 09/17/2017 Appointment: Fatou Onofre [address] ACUTE ILLNESS 09/17/2017 Patient Education: Patient Medication Summary Completed 09/17/2017 Visit Diagnosis Plan: Otitis media, unspecified, left ear Discussion: cefdinir prescribed daily for 10 days. instructed to administer tylenol/ibuprofen for pain or fever. if no improvement, or worsening symptoms, call or rtc. ICD-9 : 380.14 ICD-10 : H66.92 08/06/2017 Appointment: Fatou Onofre [address] [facility] ACUTE ILLNESS 08/06/2017 Patient Education: Patient Medication [...] H81.49 04/01/2017 Appointment: Keily Arango WPtel: [phone] [facility] FOLLOW UP 04/01/2017 Patient Education: Patient Medication Summary Completed 04/01/2017 Patient Education: Patient Medication Summary Completed 03/09/2017 Care Plan: CT HEAD/BRAIN W/O DYE [facility] : 80630-7 Pending 03/09/2017 Visit Plan: It's difficult to [...] medications indicated. 03/01/2017 Appointment: Emely Hdz WPtel: [facility] ACUTE ILLNESS 03/01/2017 Patient Education: Patient Medication Summary Completed 03/01/2017 Patient Education: Patient Medication Summary Completed 12/17/2016 Visit Diagnosis Plan: Allergic rhinitis due to pollen Discussion: Continue zyrtec/singulair ICD-9 : 477.9 ICD-10 : J30.1 11/10/2016 Visit Diagnosis Plan: Acute and subacute allergic otitis media (mucoid) (sanguinous) (serous), left ear Discussion: Zithromax ICD-9 : 381.05 ICD-10 : H65.112 11/10/2016 Appointment: Keily Arango WPtel: [address] [place] [address] ACUTE ILLNESS 11/10/2016 Patient Education: Patient Medication Summary Completed 11/10/2016 Patient Education: Patient Medication Summary Completed 09/07/2016 Care Plan: URINALYSIS AUTO W/O SCOPE LOINC : 34831-8 Pending 09/07/2016 Visit Diagnosis Plan: Cyst of [...] : N83.201 08/13/2016 Appointment: Keily Arango WPtel: [facility] 08/12 confirmed-sp FOLLOW UP 08/13/2016 Patient Education: Patient Medication Summary Completed 08/13/2016 Patient Education: Patient Medication Summary Completed 05/19/2016 Care Plan: X-RAY EXAM OF FOOT left foot LOINC : 03702-3 Pending 05/19/2016 Visit Plan: Discussed with Dr Anna fox CBC to be drawn Order sent to [facility] Will call with results 03/27/2016 Visit Plan: Discussed with Dr Anna fox CBC to be drawn Order sent to [facility] Will call with results 03/27/2016 [facility]ment: [facility] [facility] 03/27/2016 Patient Education: Patient Medication Summary Completed 03/27/2016 Visit Plan: Go for dose of rocephin 1gm IM today and tomorrow then done Diflucan 150mg x1 today Discussed with mom via phone about urology fwup--she will talk with her and let us know 03/23/2016 Appointment: Keily Arango WPtel: [address] [place] [id number] 03/23 confirmed ~sl FOLLOW UP 03/23/2016 Patient Education: Patient Medication Summary Completed 03/23/2016 Visit Plan: Per karen Brizuela cath for UA and culture today Ok to have a standing order for further UA needs at [facility] for straight cath Rocephin IM today and daily through Wednesday Mom has arranged a family friend that is an [employer] COUNSE[employer]OR to give Wednesday and Sundays injections - [...] arranged a family friend that is an SEXUAL ASSAULT COUNSE[employer]OR to give day and Sundays injections - rxs for rocephin [...] 03/19/2016 Visit Plan: Per Dr Arango, karen pittman cath for UA and culture today Ok to have a standing order for further UA needs at for straight cath Rocephin IM today and daily through Wednesday Mom has arranged a family friend that is an SEX[employer] COUNSE[employer] to give Wednesday and Sundays injections - [...] let us know 03/19/2016 Appointment: Aziza Magallanes [address] [place] [id number] ACUTE ILLNESS 03/19/2016 Patient Education: Patient Medication Summary Completed 03/19/2016 Visit Plan: 1 more week of cefdinir 03/02/2016 Appointment: Keily Arango WPtel: [address] [place], [place] [id number] 03/02 confirmed~sl WORK IN 03/02/2016 Patient Education: [...] today with results 02/24/2016 [facility]ment[facility] [facility] 02/24/2016 Patient Education: Patient Medication Summary Completed 02/24/2016 Care Plan: CHEST X-RAY 2VW FRONTAL&LATL LOINC : 10533-9 Pending 02/24/2016 Care Plan: X-RAY EXAM OF ABDOMEN LOINC : 72150-3 Pending 02/24/2016 Visit Plan: Repeat zithromax x1 wee k Ciprodex to right ear x1 week Add Pepcid q HS x2-4 weeks for total histamine blockade and for extra stomach protection while on zithromax 12/16/2015 Appointment: Keily rAango WPtel: [phone] [facility] US 6/9 lm~sl 6/10 lm ~sl FOLLOW [...] given 11/12/2015 Appointment: [phone] [place] 5/9 lm~sl 5/10 lm~sl 5/10 [...] Appointment: Aziza Magallanes [facility] [facility] [facility] 10/16/2015 Patient Education: Patient Medication Summary Completed 10/16/2015 Appointment: Aziza Magallanes [address] [place] [id number] [place] canceled, feeling better CANCELED 10/03/2015 Visit Plan: No further abx needed [facility] restart carafate Notify if abdominal pain worsens 09/23/2015 Appointment: Keily Arango WPtel: [address] [place], [place] [id number] 09/19 confirmed-sp FOLLOW UP 09/23/2015 Patient Education: [...] [facility] since [facility] does not have in stock. [...] try for now. 09/20/2015 Appointment: [facility] Magallanes [facility] [facility] [facility] 09/20/2015 Patient Education: [...] Bibiana Garg [facility]Ptel: [phone] [facility] 09/08 confirmed-sp ACUTE ILLNESS 09/10/2015 Patient Education: Patient Medication Summary Completed 09/10/2015 Visit Plan: Increase Protonix to 40 mg po BID for 1month Continue carafate at q AC dosing for full month then wean off Jevity for 2 more days then advance diet if able Continue current meds 08/21/2015 Appointment: Keily Arango [facility]Ptel[phone] [facility] NEW [facility] 08/21/2015 Patient Education: Patient [...] but will need seen if worsening . Go for dose of kim ephin [...] [facility] since [facility] does not have in stock. [...] [facility] since [facility] does not have in stock. [...] further abx nee ded Go back to [facility] for next 3 days and restart carafate Notify if abdominal pain worsens . Depo Medrol 40mg/ Kenalog 40 mg IM today Resume Ciprodex otic gtts. bid to Rt. ear . Per st rachael Brizuela [facility] for UA and culture today Ok to have a standing order for further UA needs at for straight cath Rocephin IM today and daily through Wednesday Mom has arranged a family friend that is an S[employer] COUNSE[employer] to give Wednesday and Sundays injections - rxs for rocephin and lido sent to [facility] and [facility] cannot order the lido in the qty patient needs) Dr Arango wants patient to be re-evaluated on Wednesday in clinic Referral to Urology for recurrent UTIs and urinary retention - mom wants to research who she wants her sent to and let us know . Discussed with Dr Arango CBC to be drawn Order sent to [facility] Will call with results . Per [facility] for UA and culture today Ok to have a standing order for further UA needs at for straight cath Rocephin IM today and daily through Wednesday Mom has arranged a family friend that is an S[employer] ASSA[employer] COUNSE[employer]OR to give Wednesday and Sundays injections - [...] let us know . Per st [facility] for UA and culture today Ok to have a standing order for further UA needs at for straight cath Rocephin IM today and daily through Wednesday Mom has arranged a family friend that is an SEX[employer] ASSA[employer] COUNSE[employer]OR to give Wednesday and Sundays injections - [...]
--- OUTSIDE RECORDS SUMMARY | 2019-11-10 19:53 | XMS REPORT | Continuity of Care Document ---
Demographics x Preferred Language Unknown Marital Status Unknown Hoahaoism Affiliation Unknown Race Unknown Ethnic Group Unknown Author Organization Unknown Address Unknown Phone Unavailable Allergies Active Description Code Type Severity Reaction Onset Reported/Identified Relationship to Patient Clinical Status Yes No Known Drug Allergies Drug Allergy 04/26/2012 Yes No Known Allergies No Known Allergies Drug Allergy Unknown N/A 01/15/2014 Yes No Known Drug Allergy Drug Allergy Unknown N/A 09/28/2016 Yes No Known Drug Allergies [id number] Drug Allergy Unknown N/A 07/13/2018 Medications Medication Packaging Start Date St op Date Route Dosage Sig Stool Softener 100 mg capsule Capsule 09/28/2016 100 mg take 1 (one) Capsule by Oral route daily diazePAM 2.5 mg rectal kit K it 09/28/2016 2.5 mg take 1 (one) Kit by Rectal route daily montelukast 10 mg tablet Bli ster 09/28/2016 09/28/2016 10 mg take 1 (one) Tablet by Oral route daily OXcarbazepine 150 mg tablet Tablet 09/28/2016 150 mg take 1 (one) Tablet by Oral route daily Zoloft 100 mg tablet Tablet 09/28/2016 09/28/2016 100 mg take 1 (one) Tablet by Oral route daily ZyrTEC 10 mg capsule Capsule 09/28/2016 10 mg take 1 (one) Capsule by Oral route daily Generlac 10 gram/15 mL oral solution Bottle 09/27/2017 10 gram/15 mL 10 Milliliter(s) by Oral route daily meclizine 12.5 mg tablet Tab let 09/27/2017 12.5 mg take 1 (one) Tablet by Oral route daily Problems Date Dx Coded Attending Type Code Diagnosis Diagnosed By 08/25/2010 Ot 276.51 08/25/2010 Ot 381.4 08/25/2010 Ot 462 04/03/2012 Ot 599.0 URIN TRACT INFECTION NOS 04/03/2012 Ot 780.60 FEV ER, UNSPECIFIED 04/25/2012 Ot 276.51 DEH YDRATION 04/25/2012 Ot 276.8 HYPO POTASSEMIA 04/25/2012 Ot 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 04/25/2012 Ot 345.90 EPI LEPSY UNSPEC W/O MENTION INTRACTABLE 04/25/2012 Ot 591 HYDRON EPHROSIS 04/25/2012 Ot 592.0 CALC ULUS OF KIDNEY 04/25/2012 Ot 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 04/25/2012 Ot 599.0 URIN TRACT INFECTION NOS 04/25/2012 Ot 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 06/02/2012 Ot 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 06/02/2012 Ot 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 06/02/2012 Ot 345.90 EPI LEPSY UNSPEC W/O MENTION INTRACTABLE 06/02/2012 Ot 532.90 DUO DENAL ULCER NOS 06/02/2012 Ot 535.50 UNS P GASTRITIS GASTRODUODENITIS W/O ME 06/02/2012 Ot 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 8 HYPOPOTASSEMIA 12/27/2013 DANICA JOHNSTON MD Ot 318. 1 SEVERE INTELLECTUAL DISABILITIES 12/27/2013 DANICA JOHNSTON MD Ot 564. 00 UNSPEC CONSTIPATION 12/27/2013 DANICA JOHNSTON MD Ot 787. 01 NAUSEA WITH VOMITING 12/27/2013 DANICA JOHNSTON MD R Ot 936 FB IN INTESTINE COLON 12/27/2013 DANICA JOHNSTON MD R Ot E915 FB ENTERING [facility] 12/27/2013 DANICA JOHNSTON MD Ot V44. 1 GASTROSTOMY STATUS 04/03/2014 MARY EM MD Ot [...] MD Ot 787.91 07/23/2014 WEI TORRES, ENEDINA W Ot 577.0 07/23/2014 WEI TORRES, ENEDINA W Ot 592.0 07/23/2014 MANAV TORRES, MARY Schilling Ot 599.0 07/23/2014 WEI TORRES, ENEDINA W Ot 3 19 07/23/2014 WEI TORRES, ENEDINA W Ot 530.81 07/23/2014 WEI TORRES, ENEDINA W Ot 787.03 07/23/2014 WEI TORRES, ENEDINA Ny Ot V44.1 07/23/2014 MANAV TORRES, MARY Schilling Ot 789.00 07/23/2014 Ot 783.5 07/23/2014 MANAV TORRES, MARY Schilling Ot 593.2 07/23/2014 MANAV TORRES, MARY Schilling Ot 787.01 07/23/2014 MANAV TORRES, MARY Schilling Ot 788.30 07/23/2014 WEI TORRES, ENEDINA W Ot 787.01 07/23/2014 WEI TORRES, ENEDINA Ny Ot V44.1 07/23/2014 ELI DO, CHANDROUTIE Ot 936 07/23/2014 ELI DO, CHANDROUTIE Ot E915 07/23/2014 ELI DO, CHANDROUTIE Ot 938 07/23/2014 ELI DO, CHANDROUTIE Ot E915 07/23/2014 MANAV TORRES, MARY Schilling Ot 789.00 07/23/2014 Ot 388.60 07/23/2014 MANAV TORRES, MARY Schilling Ot 789.00 08/04/2014 MANAV TORRES, MARY Schilling Ot 780.60 08/11/2014 JULITO NELSON MD Ot 780.60 FEVER, UNSPECIFIED 08/14/2014 LESLIE TORRES, JULITO Carr Ot 733.00 08/14/2014 JULITO NELSON MD Ot 755 .9 08/14/2014 JULITO NELSON MD Ot 758 .0 08/23/2014 JULITO NELSON MD Ot 733.00 08/23/2014 JULITO NELSON MD Ot 755 .9 08/23/2014 JULITO NELSON MD Ot 758 .0 10/09/2014 MANAV TORRES, MARY Schilling Ot 276.8 10/09/2014 MARY EM MD Ot 288.00 11/04/2014 MARY EM MD Ot 343.9 11/04/2014 MARY EM MD Ot 780.39 11/18/2014 JULITO NELSON MD Ot 758 .0 DOWN'S SYNDROME 11/18/2014 JULITO NELSON MD Ot 780.60 FEVER, UNSPECIFIED 11/18/2014 JULITO NELSON MD Ot V44 .1 GASTROSTOMY STATUS 12/25/2014 MARY EM MD Ot [...] MANAV TORRES, MARY Schilling Ot R30.0 07/31/2015 MANAV TORRES, MARY Schilling Ot N20.0 08/13/2015 Ot K92.0 08/13/2015 Ot Z53.21 02/27/2016 SAIRA SANJIV N STACKER AND SORTER OPERATOR Ot R10.84 GENERALIZED ABDOMINAL PAIN 02/27/2016 SAIRA SANJIV N STACKER AND SORTER OPERATOR Ot R30.0 DYSURIA 02/27/2016 SAIRA SANJIV Aristeo STACKER AND SORTER OPERATOR Ot R53.83 OTHER FATIGUE 03/06/2016 SAIRA SANJIV N STACKER AND SORTER OPERATOR Ot R10.84 GENERALIZED ABDOMINAL PAIN 03/06/2016 SAIRA SANJIV Aristeo STACKER AND SORTER OPERATOR Ot R30.0 DYSURIA 03/06/2016 SAIRA SANJIV Aristeo STACKER AND SORTER OPERATOR Ot R53.83 OTHER FATIGUE 03/20/2016 Ot 087.9 RELA PSING FEVER NOS 03/20/2016 Ot 564.00 UNS PEC CONSTIPATION 03/20/2016 Ot 592.0 CALC ULUS OF KIDNEY 03/20/2016 Ot 780.60 FEV ER, UNSPECIFIED 03/20/2016 Ot 780.60 FEV ER, UNSPECIFIED 03/20/2016 Ot 592.0 CALC ULUS OF KIDNEY 03/20/2016 Ot 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 03/20/2016 Ot 592.0 CALC ULUS OF KIDNEY 03/20/2016 Ot 780.39 OTH ER CONVULSIONS 03/20/2016 Ot V13.02 PER LUIS HISTORY, URINARY (TRACT) INFECT 03/20/2016 Ot V58.69 OTH MED,LT,CURRENT USE 03/20/2016 Ot 592.0 CALC ULUS OF KIDNEY 03/20/2016 Ot V72.84 EXA M PRE- OPERATIVE NOS 03/20/2016 Ot 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 03/20/2016 Ot 791.9 ABN URINE FINDINGS NEC 03/20/2016 Ot 787.91 ADAN RRHEA 03/20/2016 Ot 592.0 CALC ULUS OF KIDNEY 03/20/2016 Ot 599.0 URIN TRACT INFECTION NOS 03/20/2016 Ot 592.0 CALC ULUS OF KIDNEY 03/20/2016 Ot 599.0 URIN TRACT INFECTION NOS 03/20/2016 Ot 593.89 DIRK AL URETERAL DIS NEC 03/20/2016 Ot V13.01 PER LUIS HISTORY OF URINARY CALCULI 03/20/2016 MARY EM [...] INFECTION NOS 03/20/2016 ENEDINA CARVAJAL MD Ot 3 19 UNSPECIFIED INTELLECTUAL DISABILITIES 03/20/2016 ENEDINA CARVAJAL MD Ot 530.81 ESOPHAGEAL REFLUX 03/20/2016 WEI TORRES, ENEDINA Ny Ot 787.03 VOMITING ALONE 03/20/2016 WEI TORRES, ENEDINA Ny Ot V44.1 GASTROSTOMY STATUS 03/20/2016 MARY EM MD Ot 789.00 ABDOMINAL PAIN, UNSPECIFIED SITE 03/20/2016 Ot 783.5 POLY DIPSIA 03/20/2016 MARY EM MD Ot 593.2 CYST OF KIDNEY, ACQUIRED 03/20/2016 MARY EM MD Ot 787.01 NAUSEA WITH VOMITING 03/20/2016 MARY EM MD Ot 788.30 UNSPECIFIED URINARY INCONTINENCE 03/20/2016 ENEDINA CARVAJAL MD Ot 787.01 NAUSEA WITH VOMITING 03/20/2016 WEI TORRES, ENEDINA Ny Ot V44.1 GASTROSTOMY STATUS 03/20/2016 KENNEY BENITEZ DO Ot 936 FB IN INTESTINE COLON 03/20/2016 KENNEY BENITEZ DO Ot E915 FB ENTERING OTH ORIFICE 03/20/2016 KENNEY BENITEZ DO Ot 938 FOREIGN BODY GI NOS 03/20/2016 KENNEY BENITEZ DO Ot E915 FB ENTERING OTH ORIFICE 03/20/2016 MARY EM MD Ot 789.00 ABDOMINAL PAIN, UNSPECIFIED SITE 03/20/2016 Ot 388.60 ALVAREZ RRHEA NOS 03/20/2016 MARY EM MD Ot 789.00 ABDOMINAL PAIN, UNSPECIFIED SITE 03/20/2016 MARY EM MD Ot 780.60 FEVER, UNSPECIFIED 03/20/2016 JULITO NELSON MD Ot 733.00 OSTEOPOROSIS NOS 03/20/2016 JULITO NELSON MD Ot 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 03/20/2016 JULITO NELSON MD Ot 758 .0 DOWN'S SYNDROME 03/20/2016 MARY EM MD Ot 276.8 HYPOPOTASSEMIA 03/20/2016 MARY EM MD Ot 288.00 NEUTROPENIA, UNSPECIFIED 03/20/2016 MARY EM MD Ot 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 03/20/2016 MARY EM MD Ot 780.39 OTHER CONVULSIONS 03/20/2016 MANAV TORRES, MARY Schilling Ot 788.1 DYSURIA 03/20/2016 LEE ALVAREZ MD [...] N20.0 CALCULUS OF KIDNEY 03/20/2016 Ot K92.0 HOUSTON TEMESIS 03/20/2016 Ot Z53.21 PRO C/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 PT LV BEF SEE 03/20/2016 SANJIV CHÁVEZ APRN Ot R10.84 GENERALIZED ABDOMINAL PAIN 03/20/2016 SANJIV CHÁVEZ STACKER AND SORTER OPERATOR Ot R30.0 DYSURIA 03/20/2016 SANJIV CHÁVEZ STACKER AND SORTER OPERATOR Ot R53.83 OTHER FATIGUE 03/20/2016 SANJIV CHÁVEZ STACKER AND SORTER OPERATOR Ot R30.0 DYSURIA 03/20/2016 SANJIV CHÁVEZ STACKER AND SORTER OPERATOR Ot R33.9 RETENTION OF URINE, UNSPECIFIED 03/20/2016 SANJIV CHÁVEZ STACKER AND SORTER OPERATOR Ot R30.0 DYSURIA 03/20/2016 SANJIV CHÁVEZ STACKER AND SORTER OPERATOR Ot R33.9 RETENTION OF URINE, UNSPECIFIED 03/20/2016 SANJIV CHÁVEZ STACKER AND SORTER OPERATOR Ot N39.0 URINARY TRACT INFECTION, SITE NOT SPECIF 03/24/2016 YOVANYNDER DO, KEILY S Ot N39.0 URINARY TRACT INFECTION, SITE NOT SPECIF 03/26/2016 SANJIV CHÁVEZ STACKER AND SORTER OPERATOR Ot N39.0 URINARY TRACT INFECTION, SITE NOT SPECIF 03/30/2016 SANJIV CHÁVEZ STACKER AND SORTER OPERATOR Ot R21 RASH AND OTHER NONSPECIFIC SKIN ERUPTION 04/01/2016 SANJIV CHÁVEZ STACKER AND SORTER OPERATOR Ot R30.0 DYSURIA 04/01/2016 SANJIV CHÁVEZ STACKER AND SORTER OPERATOR Ot R33.9 RETENTION OF URINE, UNSPECIFIED 04/01/2016 SANJIV CHÁVEZ STACKER AND SORTER OPERATOR Ot N39.0 URINARY TRACT INFECTION, SITE NOT SPECIF 04/08/2016 SANJIV CHÁVEZ STACKER AND SORTER OPERATOR Ot R21 RASH AND OTHER NONSPECIFIC SKIN ERUPTION 04/16/2016 KIM TORRES, LEE Ot Z01.81 8 ENCOUNTER FOR OTHER PREPROCEDURAL EXAMIN 04/17/2016 ORENDER [...] URINARY TRACT INFECTION, SITE NOT SPECIF 08/09/2016 BRINA COPELAND MD Ot F72 SEVERE INTELLECTUAL DISABILITIES 08/09/2016 BRINA COPELAND MD Ot G80. 9 CEREBRAL PALSY, UNSPECIFIED 08/09/2016 BRINA COPELAND MD Ot K76. 89 OTHER SPECIFIED DISEASES OF LIVER 08/09/2016 BRINA COPELAND MD Ot N20. 0 CALCULUS OF KIDNEY 08/09/2016 BRINA COPELAND MD Ot N28. 1 CYST OF KIDNEY, ACQUIRED 08/09/2016 BRINA COPELAND MD Ot N83.201 UNSPECIFIED OVARIAN CYST, RIGHT SIDE 08/09/2016 BRINA COPELAND MD Ot R10. 84 GENERALIZED ABDOMINAL PAIN 08/09/2016 BRINA COPELAND MD Ot R11. 2 NAUSEA WITH VOMITING, UNSPECIFIED 08/09/2016 BRINA COPELAND MD Ot Z93. 1 GASTROSTOMY STATUS 08/09/2016 BRINA COPELAND MD Ot Z93. 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 08/11/2016 BRINA COPELAND MD Ot F72 SEVERE INTELLECTUAL DISABILITIES 08/11/2016 BRINA COPELAND MD Ot G80. 9 CEREBRAL PALSY, UNSPECIFIED 08/11/2016 BRINA COPELAND MD Ot K76. 89 OTHER SPECIFIED DISEASES OF LIVER 08/11/2016 BRINA COPELAND MD Ot N20. 0 CALCULUS OF KIDNEY 08/11/2016 BRINA COPELAND MD Ot N28. 1 CYST OF KIDNEY, ACQUIRED 08/11/2016 BRINA COPELAND MD Ot N83.201 UNSPECIFIED OVARIAN CYST, RIGHT SIDE 08/11/2016 BRINA COPELAND MD Ot R10. 84 GENERALIZED ABDOMINAL PAIN 08/11/2016 BRINA COPELAND MD Ot R11. 2 NAUSEA WITH VOMITING, UNSPECIFIED 08/11/2016 BRINA COPELAND MD Ot Z93. 1 GASTROSTOMY STATUS 08/11/2016 BRINA COPELAND MD Ot Z93. 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 08/12/2016 ORENDER DO, KEILY S Ot R10.9 UNSPECIFIED ABDOMINAL PAIN 08/12/2016 ORENDER DO, KEILY S Ot R50.9 FEVER, UNSPECIFIED 08/18/2016 BRINA COPELAND MD Ot F72 SEVERE INTELLECTUAL DISABILITIES 08/18/2016 BRINA COPELAND MD Ot G80. 9 CEREBRAL PALSY, UNSPECIFIED 08/18/2016 BRINA COPELAND MD Ot K76. 89 OTHER SPECIFIED DISEASES OF LIVER 08/18/2016 BRINA COPELAND MD Ot N20. 0 CALCULUS OF KIDNEY 08/18/2016 BRINA COPELAND MD Ot N28. 1 CYST OF KIDNEY, ACQUIRED 08/18/2016 BRINA COPELAND MD Ot N83.201 UNSPECIFIED OVARIAN CYST, RIGHT SIDE 08/18/2016 BRINA COPELAND MD Ot R10. 84 GENERALIZED ABDOMINAL PAIN 08/18/2016 DINORAH TORRES, BRINA Mcrae Ot R11. 2 NAUSEA WITH VOMITING, UNSPECIFIED 08/18/2016 DINORAH TORRES, BRINA Mcrae Ot Z93. 1 GASTROSTOMY STATUS 08/18/2016 DINORAH TORRES, BRINA Mcrae Ot Z93. 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 08/25/2016 ORENDER DO, KEILY S Ot R10.9 UNSPECIFIED ABDOMINAL PAIN 08/25/2016 ORENDER DO, KEILY S Ot R50.9 FEVER, UNSPECIFIED 09/18/2016 ORENDER DO, KEILY S Ot R32 UNSPECIFIED URINARY INCONTINENCE 09/18/2016 ORENDER DO, KEILY S Ot R35.8 OTHER POLYURIA 09/26/2016 JULITO NELSON MD Ot F79 UNSPECIFIED INTELLECTUAL DISABILITIES 09/26/2016 JULITO NELSON MD Ot G40.909 EPILEPSY, UNSP, NOT INTRACTABLE, WITHOUT 09/26/2016 JULITO NELSON MD Ot G80 .9 CEREBRAL PALSY, UNSPECIFIED 09/26/2016 JULITO NELSON MD Ot K59.00 CONSTIPATION, UNSPECIFIED 09/26/2016 JULITO NELSON MD Ot R10 .9 UNSPECIFIED ABDOMINAL PAIN 09/26/2016 JULITO NELSON MD Ot Z93 .1 GASTROSTOMY STATUS 09/26/2016 JULITO NELSON MD Ot Z93 .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 09/30/2016 REKHA TORRES, CECILIO Hodges F84. 8 Other pervasive developmental disorders REKHA TORRES, CECILIO Hodges 09/30/2016 CECILIO DA SILVA MD N20. 0 Calculus of kidney REKHA TORRES, CECILIO Hodges 09/30/2016 CECILIO DA SILVA MD Q62. 5 Duplication of ureter CECILIO DA SILVA MD 11/05/2016 ORENDER , KEILY S Ot J30.9 ALLERGIC RHINITIS, UNSPECIFIED 11/11/2016 LEE ALVAREZ MD Ot K94.23 GASTROSTOMY MALFUNCTION 11/11/2016 LEE ALVAREZ MD Ot Z01.81 8 ENCOUNTER FOR OTHER PREPROCEDURAL EXAMIN 11/13/2016 LEE ALVAREZ MD Ot K94.23 GASTROSTOMY MALFUNCTION 11/13/2016 LEE ALVAREZ MD Ot R13.10 DYSPHAGIA, UNSPECIFIED 11/13/2016 LEE ALVAREZ MD Ot R56.9 UNSPECIFIED CONVULSIONS 11/13/2016 LEE ALVAREZ MD Ot R62.50 UNSP LACK OF EXPECTED NORMAL PHYSIOL DEV 11/13/2016 LEE ALVAREZ MD Ot Z79.89 9 OTHER LONGTERM (CURRENT) DRUG THERAPY 11/16/2016 LEE ALVAREZ MD Ot K94.23 GASTROSTOMY MALFUNCTION 11/16/2016 LEE ALVAREZ MD Ot R13.10 DYSPHAGIA, UNSPECIFIED 11/16/2016 LEE ALVAREZ MD Ot R56.9 UNSPECIFIED CONVULSIONS 11/16/2016 LEE ALVAREZ MD Ot R62.50 UNSP LACK OF EXPECTED NORMAL PHYSIOL DEV 11/16/2016 LEE ALVAREZ MD Ot Z79.89 9 OTHER CRATE MAKER (CURRENT) DRUG THERAPY 12/10/2016 LEE ALVAREZ MD Ot K94.23 GASTROSTOMY MALFUNCTION 12/10/2016 LEE ALVAREZ MD Ot R13.10 DYSPHAGIA, UNSPECIFIED 12/10/2016 LEE ALVAREZ MD Ot R56.9 UNSPECIFIED CONVULSIONS 12/10/2016 LEE ALVAREZ MD Ot Z79.89 9 OTHER LONGTERM (CURRENT) DRUG THERAPY 12/16/2016 LEE ALVAREZ MD Ot K94.23 GASTROSTOMY MALFUNCTION 12/16/2016 LEE ALVAREZ MD Ot R13.10 DYSPHAGIA, UNSPECIFIED 12/16/2016 LEE ALVAREZ MD Ot R56.9 UNSPECIFIED CONVULSIONS 12/16/2016 LEE ALVAREZ MD Ot Z79.89 9 OTHER CRATE MAKER (CURRENT) DRUG THERAPY 12/29/2016 KEILY ARANGO DO [...] G40.909 EPILEPSY, UNSP, NOT INTRACTABLE, WITHOUT 09/16/2017 CARLYN DESIR APRN Ot S90.32XA CONTUSION OF LEFT FOOT, INITIAL ENCOUNTE 09/16/2017 CARLYN DESIR STACKER AND SORTER OPERATOR Ot S99.922A UNSPECIFIED INJURY OF LEFT FOOT, INITIAL 09/16/2017 CARLYN DESIR APRN Ot W22.09XA STRIKING AGAINST OTHER STATIONARY OBJECT 09/16/2017 CARLYN DESIR STACKER AND SORTER OPERATOR Ot Z87.19 PERSONAL HISTORY OF OTHER DISEASES OF TH 09/16/2017 CARLYN DESIR APRN Ot Z87.442 PERSONAL HISTORY OF URINARY CALCULI 09/16/2017 CARLYN DESIR APRN Ot Z98.890 OTHER SPECIFIED POSTPROCEDURAL STATES 09/23/2017 CECILIO DA SILVA MD F Ot N20. 0 CALCULUS OF KIDNEY 09/23/2017 CECILIO DA SILVA MD F Ot N28. 1 CYST OF KIDNEY, ACQUIRED 09/23/2017 CECILIO DA SILVA MD F Ot Z93. 1 GASTROSTOMY STATUS 09/24/2017 CECILIO DA SILVA MD F Ot N20. 0 CALCULUS OF KIDNEY 09/24/2017 CECILIO DA SILVA MD F Ot N28. 1 CYST OF KIDNEY, ACQUIRED 09/24/2017 CECILIO DA SILVA MD F Ot Z93. 1 GASTROSTOMY STATUS 09/28/2017 CECILIO DA SILVA MD F F84. 8 Other pervasive developmental disorders CECILIO DA SILVA MD F 09/28/2017 CECILIO DA SILVA MD F N20. 0 Calculus of kidney CECILIO DA SILVA MD F 09/28/2017 CECILIO DA SILVA MD F N28. 1 Cyst of kidney, acquired DA SILVACECILIO BOWLES MD F 09/28/2017 CECILIO DA SILVA MD F Ot N20. 0 CALCULUS OF KIDNEY 09/28/2017 CECILIO DA SILVA MD F Ot N28. 1 CYST OF KIDNEY, ACQUIRED 09/28/2017 CECILIO DA SILVA MD F Ot Z93. 1 GASTROSTOMY STATUS 11/02/2017 FATOU BECERRA R STACKER AND SORTER OPERATOR Ot J30.89 OTHER ALLERGIC RHINITIS 11/09/2017 FATOU BECERRA R STACKER AND SORTER OPERATOR Ot J30.89 OTHER ALLERGIC RHINITIS 01/04/2018 JEMIMA, FATOU R STACKER AND SORTER OPERATOR Ot R11.10 VOMITING, UNSPECIFIED 01/04/2018 JEMIMA, FATOU R STACKER AND SORTER OPERATOR Ot R34 ANURIA AND OLIGURIA 01/04/2018 JEMIMA, FATOU R STACKER AND SORTER OPERATOR Ot R53.83 OTHER FATIGUE 01/06/2018 JEMIMA, FATOU R STACKER AND SORTER OPERATOR Ot R11.10 VOMITING, UNSPECIFIED 01/06/2018 JEMIMA, FATOU R STACKER AND SORTER OPERATOR Ot R34 ANURIA AND OLIGURIA 01/06/2018 JEMIMA, FATOU R STACKER AND SORTER OPERATOR Ot R53.83 OTHER FATIGUE 07/13/2018 Ot 783.5 POLY DIPSIA 07/13/2018 Ot 388.60 ALVAREZ RRHEA NOS 07/13/2018 KEILY ARANGO DO Ot N39.0 URINARY TRACT INFECTION, SITE NOT SPECIF 07/14/2018 KIM TORRES, LEE Ot Z01.81 8 ENCOUNTER FOR OTHER PREPROCEDURAL EXAMIN 07/15/2018 MANAV [...] NOS 07/15/2018 WEI TORRES, ENEDINA Ny Ot 3 19 UNSPECIFIED INTELLECTUAL DISABILITIES 07/15/2018 WEI TORRES, ENEDINA Ny Ot 530.81 ESOPHAGEAL REFLUX 07/15/2018 ENEDINA CARVAJAL MD Ot 787.03 VOMITING ALONE 07/15/2018 ENEDINA CARVAJAL MD Ot V44.1 GASTROSTOMY STATUS 07/15/2018 MANAV TORRES, MARY Schilling Ot 789.00 ABDOMINAL PAIN, UNSPECIFIED SITE 07/15/2018 Ot 783.5 POLY DIPSIA 07/15/2018 MANAV TORRES, MARY Schilling Ot 593.2 CYST OF KIDNEY, ACQUIRED 07/15/2018 MANAV TORRES, MARY Schilling Ot 787.01 NAUSEA WITH VOMITING 07/15/2018 MANAV TORRES, MARY Schilling Ot 788.30 UNSPECIFIED URINARY INCONTINENCE 07/15/2018 WEI TORRES, ENEDINA Ny Ot 787.01 NAUSEA WITH VOMITING 07/15/2018 ENEDINA CARVAJAL MD Ot V44.1 GASTROSTOMY STATUS 07/15/2018 ELI , LALITOROUEZE Ot 936 FB IN INTESTINE COLON 07/15/2018 [facility] DO [facility] Ot E915 FB ENTERING OTH ORIFICE 07/15/2018 [facility] KENNEY HURLEY Ot 938 FOREIGN BODY GI NOS 07/15/2018 [facility] , KENNEY Ot E915 FB ENTERING OTH ORIFICE 07/15/2018 MANAV TORRES, MARY Schilling Ot 789.00 ABDOMINAL PAIN, UNSPECIFIED SITE 07/15/2018 Ot 388.60 ALVAREZ RRHEA NOS 07/15/2018 MANAV TORRES, MARY Schilling Ot 789.00 ABDOMINAL PAIN, UNSPECIFIED SITE 07/15/2018 MANAV TORRES, MARY Schilling Ot 780.60 FEVER, UNSPECIFIED 07/15/2018 LESLIE TORRES, JULITO Carr Ot 733.00 OSTEOPOROSIS NOS 07/15/2018 LESLIE TORRES, JULITO Carr Ot 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 07/15/2018 LESLIE TORRES, JULITO Carr Ot 758 .0 DOWN'S SYNDROME 07/15/2018 MANAV TORRES, MARY Schilling Ot 276.8 HYPOPOTASSEMIA 07/15/2018 MARY EM MD Ot 288.00 NEUTROPENIA, UNSPECIFIED 07/15/2018 MARY EM MD Ot 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 07/15/2018 MARY EM MD Ot 780.39 OTHER CONVULSIONS 07/15/2018 MARY EM MD Ot 788.1 DYSURIA 07/15/2018 KIM TORRES, LEE Ot V72.84 EXAM PRE-OPERATIVE NOS 07/15/2018 MARY EM MD Ot 788.1 DYSURIA 07/15/2018 MANAV TORRES, MARY Schilling Ot 788.1 DYSURIA 07/15/2018 KIM TORRES, LEE Ot 345.90 EPILEPSY UNSPEC W/O MENTION INTRACTABLE 07/15/2018 KIM TORRES, LEE Ot 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 07/15/2018 KIM TORRES, LEE Ot 787.20 DYSPHAGIA, UNSPECIFIED 07/15/2018 KIM TORRES, LEE Ot V58.69 OTH MED,LT,CURRENT USE 07/15/2018 MARY EM MD Ot R50.9 FEVER, UNSPECIFIED 07/15/2018 MARY EM MD Ot R56.9 UNSPECIFIED CONVULSIONS 07/15/2018 MARY EM MD Ot N39.0 URINARY TRACT INFECTION, SITE NOT SPECIF 07/15/2018 MARY EM MD Ot R30.0 DYSURIA 07/15/2018 MARY EM MD Ot N20.0 CALCULUS OF KIDNEY 07/15/2018 Ot K92.0 [place] TEMESIS 07/15/2018 Ot Z53.21 PRO C/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 PT LV BEF SEE 07/15/2018 SANJIV CHÁVEZ APRN Ot R10.84 GENERALIZED ABDOMINAL PAIN 07/15/2018 SANJIV CHÁVEZ STACKER AND SORTER OPERATOR Ot R30.0 DYSURIA 07/15/2018 SANJIV CHÁVEZ STACKER AND SORTER OPERATOR Ot R53.83 OTHER FATIGUE 07/15/2018 SANJIV CHÁVEZ APRN Ot R30.0 DYSURIA 07/15/2018 SANJIV CHÁVEZ APRN Ot R33.9 RETENTION OF URINE, UNSPECIFIED 07/15/2018 SANJIV CHÁVEZ APRN Ot N39.0 URINARY TRACT INFECTION, SITE NOT SPECIF 07/15/2018 SANJIV CHÁVEZ APRN Ot R21 RASH AND OTHER NONSPECIFIC SKIN ERUPTION 07/15/2018 KIM TORRES, LEE Ot Z01.81 8 ENCOUNTER FOR OTHER PREPROCEDURAL EXAMIN 07/15/2018 KEILY ARANGO DO Ot M79.672 PAIN IN LEFT FOOT 07/15/2018 KEILY ARANGO DO Ot M79.89 OTHER SPECIFIED SOFT TISSUE DISORDERS 07/15/2018 ORENDER DO, KEILY S Ot N39.0 URINARY [...] S Ot R10.84 GENERALIZED ABDOMINAL PAIN 07/15/2018 ORENDER DO, KEILY S Ot R50.9 FEVER, UNSPECIFIED 07/15/2018 CECILIO DA SILVA MD Ot N20. 0 CALCULUS OF KIDNEY 07/15/2018 CECILIO DA SILVA MD Ot N28. 1 CYST OF KIDNEY, ACQUIRED 07/15/2018 CECILIO DA SILVA MD Ot Z93. 1 GASTROSTOMY STATUS 07/15/2018 FATOU BECERRA APRN Ot J30.89 OTHER ALLERGIC RHINITIS 07/15/2018 KIM TORRES, LEE Ot Z01.81 8 ENCOUNTER FOR OTHER PREPROCEDURAL EXAMIN 07/15/2018 NINO TORRES, DIANA Schilling Ot E86. 0 DEHYDRATION 07/15/2018 NINO TORRES, DIANA Schilling Ot G40.909 EPILEPSY, UNSP, NOT INTRACTABLE, WITHOUT 07/15/2018 DIANA ONEILL MD Ot N39. 0 URINARY TRACT INFECTION, SITE NOT SPECIF 07/15/2018 DIANA ONEILL MD J Ot Q90. 9 DOWN SYNDROME, UNSPECIFIED 07/15/2018 DIANA ONEILL MD Ot R11. 2 NAUSEA WITH VOMITING, UNSPECIFIED 07/15/2018 DIANA ONEILL MD J Ot R21 RASH AND OTHER NONSPECIFIC SKIN ERUPTION 07/15/2018 DIANA ONEILL MD Ot Z82. 49 FAMILY HX OF ISCHEM HEART DIS AND OTH DI 07/15/2018 DIANA ONEILL MD Ot Z87. 01 PERSONAL HISTORY OF PNEUMONIA (RECURRENT 07/15/2018 DIANA ONEILL MD Ot Z87. 19 PERSONAL HISTORY OF OTHER DISEASES OF 07/15/2018 DIANA ONEILL MD Ot Z87.442 PERSONAL HISTORY OF URINARY CALCULI 07/15/2018 DIANA ONEILL MD Ot Z93. 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 07/15/2018 DIANA ONEILL MD Ot Z98.890 OTHER SPECIFIED POSTPROCEDURAL STATES 07/18/2018 KIM TORRES, LEE Ot Z01.81 8 ENCOUNTER FOR OTHER PREPROCEDURAL EXAMIN 07/19/2018 DIANA ONEILL MD Ot E86. 0 DEHYDRATION 07/19/2018 DIANA ONEILL MD Ot G40.909 EPILEPSY, UNSP, NOT INTRACTABLE, WITHOUT 07/19/2018 DIANA ONEILL MD Ot N39. 0 URINARY TRACT INFECTION, SITE NOT SPECIF 07/19/2018 DIANA ONEILL MD Ot Q90. 9 DOWN SYNDROME, UNSPECIFIED 07/19/2018 DIANA ONEILL MD Ot R11. 2 NAUSEA WITH VOMITING, UNSPECIFIED 07/19/2018 DIANA ONEILL MD Ot R21 RASH AND OTHER NONSPECIFIC SKIN ERUPTION 07/19/2018 DIANA ONEILL MD Ot Z82. 49 FAMILY HX OF ISCHEM HEART DIS AND OTH DI 07/19/2018 DIANA ONEILL MD Ot Z87. 01 PERSONAL HISTORY OF PNEUMONIA (RECURRENT 07/19/2018 DIANA ONEILL MD Ot Z87. 19 PERSONAL HISTORY OF OTHER DISEASES OF TH 07/19/2018 DIANA ONEILL MD Ot Z87.442 PERSONAL HISTORY OF URINARY CALCULI 07/19/2018 NINO TORRES, DIANA Schilling Ot Z93. 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 07/19/2018 NINO TORRES, DIANA Schilling Ot Z98.890 OTHER SPECIFIED POSTPROCEDURAL STATES 07/19/2018 MARY EM MD Ot 788.1 DYSURIA 07/19/2018 MARY EM MD Ot 593.89 RENAL URETERAL DIS NEC 07/19/2018 MARY EM MD Ot 787.01 NAUSEA WITH VOMITING 07/19/2018 MARY EM MD Ot 788.1 DYSURIA 07/19/2018 MARY EM MD Ot 788.1 DYSURIA 07/19/2018 MARY EM MD Ot 787.91 DIARRHEA 07/19/2018 WEI TORRES, ENEDINA Ny Ot 577.0 ACUTE PANCREATITIS 07/19/2018 ENEDINA CARVAJAL MD Ot 592.0 CALCULUS OF KIDNEY 07/19/2018 MARY EM MD Ot 599.0 URIN TRACT INFECTION NOS 07/19/2018 WEI TORRES, ENEDINA Ny Ot 3 19 UNSPECIFIED INTELLECTUAL DISABILITIES 07/19/2018 WEI TORRES, ENEDINA Ny Ot 530.81 ESOPHAGEAL REFLUX 07/19/2018 ENEDINA CARVAJAL MD Ot 787.03 VOMITING ALONE 07/19/2018 ENEDINA CARVAJAL MD Ot V44.1 GASTROSTOMY STATUS 07/19/2018 MARY EM MD Ot 789.00 ABDOMINAL PAIN, UNSPECIFIED SITE 07/19/2018 Ot 783.5 POLY DIPSIA 07/19/2018 MARY EM MD Ot 593.2 CYST OF KIDNEY, ACQUIRED 07/19/2018 MARY EM MD Ot 787.01 NAUSEA WITH VOMITING 07/19/2018 MARY EM MD Ot 788.30 UNSPECIFIED URINARY INCONTINENCE 07/19/2018 ENEDINA CARVAJAL MD Ot 787.01 NAUSEA WITH VOMITING 07/19/2018 ENEDINA CARVAJAL MD Ot V44.1 GASTROSTOMY STATUS 07/19/2018 KENNEY BENITEZ DO Ot 936 FB IN INTESTINE COLON 07/19/2018 ELI HURLEY KENNEY Ot E915 FB ENTERING OTH ORIFICE 07/19/2018 KENNEY BENITEZ DO Ot 938 FOREIGN BODY GI NOS 07/19/2018 KENNEY BENITEZ DO Ot E915 FB ENTERING OTH ORIFICE 07/19/2018 MANAV TORRES, MARY Schilling Ot 789.00 ABDOMINAL PAIN, UNSPECIFIED SITE 07/19/2018 Ot 388.60 ALVAREZ RRHEA NOS 07/19/2018 MANAV TORRES, MARY Schilling Ot 789.00 ABDOMINAL PAIN, UNSPECIFIED SITE 07/19/2018 MANAV TORRES, MARY Schilling Ot 780.60 FEVER, UNSPECIFIED 07/19/2018 LESLIE TORRES, JULITO Carr Ot 733.00 OSTEOPOROSIS NOS 07/19/2018 JULITO NELSON MD Ot 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 07/19/2018 JULITO NELSON MD Ot 758 .0 DOWN'S SYNDROME 07/19/2018 MARY EM MD Ot 276.8 HYPOPOTASSEMIA 07/19/2018 MARY EM MD Ot 288.00 NEUTROPENIA, UNSPECIFIED 07/19/2018 MARY EM MD Ot 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 07/19/2018 MANAV TORRES, MARY Schilling Ot 780.39 OTHER CONVULSIONS 07/19/2018 MARY EM MD Ot 788.1 DYSURIA 07/19/2018 LEE ALVAREZ MD Ot V72.84 EXAM PRE-OPERATIVE NOS 07/19/2018 MANAV TORRES, MARY Schilling Ot 788.1 DYSURIA 07/19/2018 MARY EM MD [...] SITE NOT SPECIF 07/19/2018 MARY EM MD Ot R30.0 DYSURIA 07/19/2018 MARY EM MD Ot N20.0 CALCULUS OF KIDNEY 07/19/2018 Ot K92.0 HOUSTON TEMESIS 07/19/2018 Ot Z53.21 PRO C/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 PT LV BEF SEE 07/19/2018 SANJIV CHÁVEZ STACKER AND SORTER OPERATOR Ot R10.84 GENERALIZED ABDOMINAL PAIN 07/19/2018 SANJIV CHÁVEZ APRN Ot R30.0 DYSURIA 07/19/2018 SANJIV CHÁVEZ STACKER AND SORTER OPERATOR Ot R53.83 OTHER FATIGUE 07/19/2018 SANJIV CHÁVEZ STACKER AND SORTER OPERATOR Ot R30.0 DYSURIA 07/19/2018 SANJIV CHÁVEZ STACKER AND SORTER OPERATOR Ot R33.9 RETENTION OF URINE, UNSPECIFIED 07/19/2018 SANJIV CHÁVEZ STACKER AND SORTER OPERATOR Ot N39.0 URINARY TRACT INFECTION, SITE NOT SPECIF 07/19/2018 SANJIV CHÁVEZ STACKER AND SORTER OPERATOR Ot R21 RASH AND OTHER NONSPECIFIC SKIN ERUPTION 07/19/2018 KIM TORRES, LEE Ot Z01.81 8 ENCOUNTER FOR OTHER PREPROCEDURAL EXAMIN 07/19/2018 RENE ARANGO DOQUELINE S Ot M79.672 PAIN IN LEFT FOOT 07/19/2018 RENE ARANGO DOQUELINE S Ot M79.89 OTHER SPECIFIED SOFT TISSUE DISORDERS 07/19/2018 YOVANYNDER RENE HURLEYKEILY S Ot N39.0 URINARY TRACT INFECTION, SITE NOT SPECIF 07/19/2018 YOVANYNDER DO KEILY S Ot R10.9 UNSPECIFIED ABDOMINAL PAIN 07/19/2018 YOVANYNDER RENE HURLEYKEILY S Ot R50.9 FEVER, UNSPECIFIED 07/19/2018 YOVANYNDER DO KEILY S Ot R32 UNSPECIFIED URINARY INCONTINENCE 07/19/2018 YOVANYNDRENE GILBERT DOQUELINE S Ot R35.8 OTHER POLYURIA 07/19/2018 YOVANYNDRENE GILBERT DOQUELINE S Ot J30.9 ALLERGIC RHINITIS, UNSPECIFIED 07/19/2018 ORENDER DO, KEILY S Ot K59.00 CONSTIPATION, UNSPECIFIED 07/19/2018 [...] KEILY S Ot R50.9 FEVER, UNSPECIFIED 07/19/2018 CECILIO DA SILVA MD Ot N20. 0 CALCULUS OF KIDNEY 07/19/2018 CECILIO DA SILVA MD Ot N28. 1 CYST OF KIDNEY, ACQUIRED 07/19/2018 CECILIO DA SILVA MD Ot Z93. 1 GASTROSTOMY STATUS 07/19/2018 JEMIMA FATOU R STACKER AND SORTER OPERATOR Ot J30.89 OTHER ALLERGIC RHINITIS 07/20/2018 MANAV TORRES, MARY Schilling Ot 788.1 DYSURIA 07/20/2018 MANAV TORRES, MARY Schilling Ot 593.89 RENAL URETERAL DIS NEC 07/20/2018 MANAV TORRES, MARY Schilling Ot 787.01 NAUSEA WITH VOMITING 07/20/2018 MANAV TORRES, MARY Schilling Ot 788.1 DYSURIA 07/20/2018 MANAV TORRES, MARY Schilling Ot 788.1 DYSURIA 07/20/2018 MANAV TORRES, AMRY Schilling Ot 787.91 DIARRHEA 07/20/2018 ENEDINA CARVAJAL MD Ot 577.0 ACUTE PANCREATITIS 07/20/2018 ENEDINA CARVAJAL MD Ot 592.0 CALCULUS OF KIDNEY 07/20/2018 MARY EM MD Ot 599.0 URIN TRACT INFECTION NOS 07/20/2018 ENEDINA CARVAJAL MD Ot 3 19 UNSPECIFIED INTELLECTUAL DISABILITIES 07/20/2018 WEI TORRES, ENEDINA Ny Ot 530.81 ESOPHAGEAL REFLUX 07/20/2018 ENEDINA CARVAJAL MD Ot 787.03 VOMITING ALONE 07/20/2018 WEI TORRES, ENEDINA Ny Ot V44.1 GASTROSTOMY STATUS 07/20/2018 MARY EM MD Ot 789.00 ABDOMINAL PAIN, UNSPECIFIED SITE 07/20/2018 Ot 783.5 POLY DIPSIA 07/20/2018 MARY EM MD Ot 593.2 CYST OF KIDNEY, ACQUIRED 07/20/2018 MARY EM MD Ot 787.01 NAUSEA WITH VOMITING 07/20/2018 MARY EM MD Ot 788.30 UNSPECIFIED URINARY INCONTINENCE 07/20/2018 WEI [...] Ot E915 FB ENTERING OTH ORIFICE 07/20/2018 MARY EM MD Ot 789.00 ABDOMINAL PAIN, UNSPECIFIED SITE 07/20/2018 Ot 388.60 ALVAREZ RRHEA NOS 07/20/2018 MARY EM MD Ot 789.00 ABDOMINAL PAIN, UNSPECIFIED SITE 07/20/2018 AMRY EM MD Ot 780.60 FEVER, UNSPECIFIED 07/20/2018 JULITO NELSON MD Ot 733.00 OSTEOPOROSIS NOS 07/20/2018 JULITO NELSON MD Ot 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 07/20/2018 JULITO NELSON MD Ot 758 .0 DOWN'S SYNDROME 07/20/2018 MARY EM MD Ot 276.8 HYPOPOTASSEMIA 07/20/2018 MARY EM MD Ot 288.00 NEUTROPENIA, UNSPECIFIED 07/20/2018 MARY EM MD Ot 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 07/20/2018 MANAV TORRES, MARY Schilling Ot 780.39 OTHER CONVULSIONS 07/20/2018 MARY EM MD Ot 788.1 DYSURIA 07/20/2018 LEE ALVAREZ MD Ot V72.84 EXAM PRE-OPERATIVE NOS 07/20/2018 MARY ME MD Ot 788.1 DYSURIA 07/20/2018 MARY EM MD Ot 788.1 DYSURIA 07/20/2018 LEE ALVAREZ MD Ot 345.90 EPILEPSY UNSPEC W/O MENTION INTRACTABLE 07/20/2018 LEE ALVAREZ MD Ot 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 07/20/2018 LEE ALVAREZ MD Ot 787.20 DYSPHAGIA, UNSPECIFIED 07/20/2018 LEE ALVAREZ MD Ot V58.69 OTH MED,LT,CURRENT USE 07/20/2018 MARY EM MD Ot R50.9 FEVER, UNSPECIFIED 07/20/2018 MARY EM MD Ot R56.9 UNSPECIFIED CONVULSIONS 07/20/2018 MARY EM MD Ot N39.0 URINARY TRACT INFECTION, SITE NOT SPECIF 07/20/2018 MARY EM MD Ot R30.0 DYSURIA 07/20/2018 MARY EM MD Ot N20.0 CALCULUS OF KIDNEY 07/20/2018 Ot K92.0 [place]ST[place] TEMESIS 07/20/2018 Ot Z53.21 PRO C/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 PT LV BEF SEE 07/20/2018 SANJIV CHÁVEZ APRN Ot R10.84 GENERALIZED ABDOMINAL PAIN 07/20/2018 SANJIV CHÁVEZ STACKER AND SORTER OPERATOR Ot R30.0 DYSURIA 07/20/2018 SANJIV CHÁVEZ APRN Ot R53.83 OTHER FATIGUE 07/20/2018 SANJIV CHÁVEZ STACKER AND SORTER OPERATOR Ot R30.0 DYSURIA 07/20/2018 SANJIV CHÁVEZ STACKER AND SORTER OPERATOR Ot R33.9 RETENTION OF URINE, UNSPECIFIED 07/20/2018 SANJIV CHÁVEZ STACKER AND SORTER OPERATOR Ot N39.0 URINARY TRACT INFECTION, SITE NOT SPECIF 07/20/2018 SANJIV CHÁVEZ APRN Ot R21 RASH AND OTHER NONSPECIFIC SKIN ERUPTION 07/20/2018 KIM TORRES, LEE Ot Z01.81 8 ENCOUNTER FOR OTHER PREPROCEDURAL EXAMIN 07/20/2018 ORENDER DO, KEILY S Ot M79.672 PAIN IN LEFT FOOT 07/20/2018 ORENDER DO, KEILY S Ot M79.89 OTHER SPECIFIED SOFT TISSUE DISORDERS 07/20/2018 ORENDER DO, KEILY S Ot N39.0 URINARY TRACT INFECTION, SITE NOT SPECIF 07/20/2018 ORENDER DO, KEILY S Ot R10.9 UNSPECIFIED ABDOMINAL PAIN 07/20/2018 ORENDER DO, KEILY S Ot R50.9 FEVER, UNSPECIFIED 07/20/2018 ORENDER DO, KEILY S Ot R32 UNSPECIFIED URINARY INCONTINENCE 07/20/2018 ORENDER DO, KEILY S Ot R35.8 OTHER POLYURIA 07/20/2018 ORENDER DO, KEILY S Ot J30.9 ALLERGIC RHINITIS, UNSPECIFIED 07/20/2018 ORENDER DO, KEILY S Ot K59.00 CONSTIPATION, UNSPECIFIED 07/20/2018 KYRA LIPSCOMB Ot K22.9 DISEASE OF ESOPHAGUS, UNSPECIFIED 07/20/2018 KYRA LIPSCOMB Ot Z93.1 GASTROSTOMY STATUS 07/20/2018 ORENDER DO, KEILY S Ot R42 DIZZINESS AND GIDDINESS 07/20/2018 ORENDER DO, KEILY S Ot R93.0 ABNORMAL FINDINGS ON DX IMAGING OF SKULL 07/20/2018 ORENDER DO, KEILY S Ot R11.10 VOMITING, UNSPECIFIED 07/20/2018 ORENDER DO, KEILY S Ot R42 DIZZINESS AND GIDDINESS 07/20/2018 ORENDER DO, KEILY S Ot R10.84 GENERALIZED ABDOMINAL PAIN 07/20/2018 ORENDER DO, KEILY S Ot R50.9 FEVER, UNSPECIFIED 07/20/2018 REKHA TORRES, CECILIO Hodges Ot N20. 0 CALCULUS OF KIDNEY 07/20/2018 CECILIO DA SILVA MD Ot N28. 1 CYST OF KIDNEY, ACQUIRED 07/20/2018 REKHA TORRES, CECILIO Hodges Ot Z93. 1 GASTROSTOMY STATUS 07/20/2018 FATOU BECERRA STACKER AND SORTER OPERATOR Ot J30.89 OTHER ALLERGIC RHINITIS 07/21/2018 LEE ALVAREZ MD, Ot K94.23 GASTROSTOMY MALFUNCTION 07/21/2018 LEE ALVAREZ MD Ot R13.10 DYSPHAGIA, UNSPECIFIED 07/21/2018 LEE ALVAREZ MD Ot R56.9 UNSPECIFIED CONVULSIONS 07/21/2018 LEE ALVAREZ MD Ot R62.50 UNSP LACK OF EXPECTED NORMAL PHYSIOL DEV 07/21/2018 LEE ALVAREZ MD, Ot Z79.89 9 OTHER CRATE MAKER (CURRENT) DRUG THERAPY 07/21/2018 LEE ALVAREZ MD, Ot Z87.11 PERSONAL HISTORY OF PEPTIC ULCER DISEASE 07/21/2018 LEE ALVAREZ MD, Ot Z87.44 2 PERSONAL HISTORY OF URINARY CALCULI 07/21/2018 LEE ALVAREZ MD Ot Z99.3 DEPENDENCE ON WHEELCHAIR 07/28/2018 LEE ALVAREZ MD, Ot K94.23 GASTROSTOMY MALFUNCTION 07/28/2018 LEE ALVAREZ MD Ot R13.10 DYSPHAGIA, UNSPECIFIED 07/28/2018 LEE ALVAREZ MD Ot R56.9 UNSPECIFIED CONVULSIONS 07/28/2018 LEE ALVAREZ MD Ot R62.50 UNSP LACK OF EXPECTED NORMAL PHYSIOL DEV 07/28/2018 LEE ALVAREZ MD Ot Z79.89 9 OTHER CRATE MAKER (CURRENT) DRUG THERAPY 07/28/2018 LEE ALVAREZ MD, Ot Z87.11 PERSONAL HISTORY OF PEPTIC ULCER DISEASE 07/28/2018 LEE ALVAREZ MD, Ot Z87.44 2 PERSONAL HISTORY OF URINARY CALCULI 07/28/2018 LEE ALVAREZ MD Ot Z99.3 DEPENDENCE ON WHEELCHAIR 08/25/2018 NINO TORRES, DIANA Schilling Ot E86. 0 DEHYDRATION 08/25/2018 NINO TORRES, DIANA Schilling Ot G40.909 EPILEPSY, UNSP, NOT INTRACTABLE, WITHOUT 08/25/2018 NINO TORRES, DIANA Schilling Ot N39. 0 URINARY TRACT INFECTION, SITE NOT SPECIF 08/25/2018 DIANA ONEILL MD Ot Q90. 9 DOWN SYNDROME, UNSPECIFIED 08/25/2018 DIANA ONEILL MD Ot R11. 2 NAUSEA WITH VOMITING, UNSPECIFIED 08/25/2018 DIANA ONEILL MD Ot R21 RASH AND OTHER NONSPECIFIC SKIN ERUPTION 08/25/2018 DIANA ONEILL MD Ot Z82. 49 FAMILY HX OF ISCHEM HEART DIS AND OTH DI 08/25/2018 DIANA ONEILL MD Ot Z87. 01 PERSONAL HISTORY OF PNEUMONIA (RECURRENT 08/25/2018 DIANA ONEILL MD Ot Z87. 19 PERSONAL HISTORY OF OTHER DISEASES OF TH 08/25/2018 DIANA ONEILL MD Ot Z87.442 PERSONAL HISTORY OF URINARY CALCULI 08/25/2018 DIANA ONEILL MD Ot Z93. 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 08/25/2018 DIANA ONEILL MD Ot Z98.890 OTHER SPECIFIED POSTPROCEDURAL STATES 11/24/2018 MARY EM MD Ot 788.1 DYSURIA 11/24/2018 MARY EM MD Ot 788.1 DYSURIA 11/24/2018 MARY EM MD Ot 787.91 DIARRHEA 11/24/2018 ENEDINA CARVAJAL MD Ot 577.0 ACUTE PANCREATITIS 11/24/2018 ENEDINA CARVAJAL MD Ot 592.0 CALCULUS OF KIDNEY 11/24/2018 MARY EM MD Ot 599.0 URIN TRACT INFECTION NOS 11/24/2018 ENEDINA CARVAJAL MD Ot 3 19 UNSPECIFIED INTELLECTUAL DISABILITIES 11/24/2018 ENEDINA CARVAJAL MD Ot 530.81 ESOPHAGEAL REFLUX 11/24/2018 ENEDINA CARVAJAL MD Ot 787.03 VOMITING ALONE 11/24/2018 ENEDINA CARVAJAL MD Ot V44.1 GASTROSTOMY STATUS 11/24/2018 MARY EM MD Ot 789.00 ABDOMINAL PAIN, UNSPECIFIED SITE 11/24/2018 Ot 783.5 POLY DIPSIA 11/24/2018 MARY EM MD Ot 593.2 CYST OF KIDNEY, ACQUIRED 11/24/2018 MARY EM MD Ot 787.01 NAUSEA WITH VOMITING 11/24/2018 MARY EM MD Ot 788.30 UNSPECIFIED URINARY INCONTINENCE 11/24/2018 ENEDINA CARVAJAL MD Ot 787.01 NAUSEA WITH VOMITING 11/24/2018 WEI TORRES, ENEDINA Ny Ot V44.1 GASTROSTOMY STATUS 11/24/2018 ELI HURLEY LALITOJIMBO Ot 936 FB IN INTESTINE COLON 11/24/2018 ELI HURLEY LATASHAEZE Ot E915 FB ENTERING OTH ORIFICE 11/24/2018 ELI HURLEY LALITOJIMBO Ot 938 FOREIGN BODY GI NOS 11/24/2018 ELI HURLEY LATASHAEZE Ot E915 FB ENTERING OTH ORIFICE 11/24/2018 MANAV TORRES, MARY Schilling Ot 789.00 ABDOMINAL PAIN, UNSPECIFIED SITE 11/24/2018 Ot 388.60 ALVAREZ RRHEA NOS 11/24/2018 MANAV TORRES, MARY Schilling Ot 789.00 ABDOMINAL PAIN, UNSPECIFIED SITE 11/24/2018 MANAV TORRES, MARY Schilling Ot 780.60 FEVER, UNSPECIFIED 11/24/2018 LESLIE TORRES, JULITO Carr Ot 733.00 OSTEOPOROSIS NOS 11/24/2018 LESLIE TORRES, JULITO Carr Ot 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 11/24/2018 JULITO NELSON MD Ot 758 .0 DOWN'S SYNDROME 11/24/2018 MANAV TORRES, MARY Schilling Ot 276.8 HYPOPOTASSEMIA 11/24/2018 MANAV TORRES, MARY Schilling Ot 288.00 NEUTROPENIA, UNSPECIFIED 11/24/2018 MANAV TORRES, MARY Schilling Ot 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 11/24/2018 MANAV TORRES, MARY Schilling Ot 780.39 OTHER CONVULSIONS 11/24/2018 MANAV TORRES, MARY Schilling Ot 788.1 DYSURIA 11/24/2018 LEE ALVAREZ MD Ot V72.84 EXAM PRE-OPERATIVE NOS 11/24/2018 MANAV TORRES, MARY Schilling Ot 788.1 DYSURIA 11/24/2018 MARY EM MD Ot 788.1 DYSURIA 11/24/2018 LEE ALVAREZ MD Ot 345.90 EPILEPSY UNSPEC W/O MENTION INTRACTABLE 11/24/2018 LEE ALVAREZ MD Ot 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 11/24/2018 LEE ALVAREZ MD Ot 787.20 DYSPHAGIA, UNSPECIFIED 11/24/2018 LEE ALVAREZ MD Ot V58.69 OTH MED,LT,CURRENT USE 11/24/2018 MANAV TORRES, MARY Schilling Ot R50.9 FEVER, UNSPECIFIED 11/24/2018 MARY EM MD Ot R56.9 UNSPECIFIED CONVULSIONS 11/24/2018 MARY EM MD Ot N39.0 URINARY TRACT INFECTION, SITE NOT SPECIF 11/24/2018 MARY EM MD Ot R30.0 DYSURIA 11/24/2018 MARY EM MD Ot N20.0 CALCULUS OF KIDNEY 11/24/2018 Ot K92.0 [place]ST[place] TEMESIS 11/24/2018 Ot Z53.21 PRO C/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 PT LV BEF SEE 11/24/2018 SANJIV CHÁVEZ STACKER AND SORTER OPERATOR Ot R10.84 GENERALIZED ABDOMINAL PAIN 11/24/2018 SANJIV CHÁVEZ STACKER AND SORTER OPERATOR Ot R30.0 DYSURIA 11/24/2018 SANJIV CHÁVEZ STACKER AND SORTER OPERATOR Ot R53.83 OTHER FATIGUE 11/24/2018 SANJIV CHÁVEZ STACKER AND SORTER OPERATOR Ot R30.0 DYSURIA 11/24/2018 SANJIV CHÁVEZ STACKER AND SORTER OPERATOR Ot R33.9 RETENTION OF URINE, UNSPECIFIED 11/24/2018 SANJIV CHÁVEZ STACKER AND SORTER OPERATOR Ot N39.0 URINARY TRACT INFECTION, SITE NOT SPECIF 11/24/2018 SANJIV CHÁVEZ STACKER AND SORTER OPERATOR Ot R21 RASH AND OTHER NONSPECIFIC SKIN ERUPTION 11/24/2018 KIM TORRES, LEE Ot Z01.81 8 ENCOUNTER FOR OTHER PREPROCEDURAL EXAMIN 11/24/2018 KEILY ARANGO DO S Ot M79.672 PAIN IN LEFT FOOT 11/24/2018 KEILY ARANGO DO S Ot M79.89 OTHER SPECIFIED SOFT TISSUE DISORDERS 11/24/2018 KEILY ARANGO DO S Ot N39.0 URINARY TRACT INFECTION, SITE NOT SPECIF 11/24/2018 KEILY ARANGO DO S Ot R10.9 UNSPECIFIED ABDOMINAL PAIN 11/24/2018 KEILY ARANGO DO S Ot R50.9 FEVER, UNSPECIFIED 11/24/2018 KEILY ARANGO DO S Ot R32 UNSPECIFIED URINARY INCONTINENCE 11/24/2018 ORENDER DO, KEILY S Ot R35.8 OTHER POLYURIA 11/24/2018 ORENDER DO, KEILY S Ot J30.9 ALLERGIC RHINITIS, UNSPECIFIED 11/24/2018 YOVANYNDER DO, KEILY S Ot K59.00 CONSTIPATION, UNSPECIFIED 11/24/2018 KYRA LIPSCOMB Ot K22.9 DISEASE OF ESOPHAGUS, UNSPECIFIED 11/24/2018 KYRA LIPSCOMB Ot Z93.1 GASTROSTOMY STATUS 11/24/2018 ORENDER DO, KEILY S Ot R42 DIZZINESS AND GIDDINESS 11/24/2018 ORENDER DO, KEILY S Ot R93.0 ABNORMAL FINDINGS ON DX IMAGING OF SKULL 11/24/2018 ORENDER DO, KEILY S Ot R11.10 VOMITING, UNSPECIFIED 11/24/2018 ORENDER DO, KEILY S Ot R42 DIZZINESS AND GIDDINESS 11/24/2018 ORENDER DO, KEILY S Ot R10.84 GENERALIZED ABDOMINAL PAIN 11/24/2018 YOVANYNDER , KEILY S Ot R50.9 FEVER, UNSPECIFIED 11/24/2018 CECILIO DA SILVA MD Ot N20. 0 CALCULUS OF KIDNEY 11/24/2018 CECILIO DA SILVA MD Ot N28. 1 CYST OF KIDNEY, ACQUIRED 11/24/2018 CECILIO DA SILVA MD Ot Z93. 1 GASTROSTOMY STATUS 11/24/2018 FATOU BECERRA Dale TAVAREZ Ot J30.89 OTHER ALLERGIC RHINITIS 11/24/2018 LEE ALVAREZ MD Ot K94.23 GASTROSTOMY MALFUNCTION 11/24/2018 LEE ALVAREZ MD Ot R13.10 DYSPHAGIA, UNSPECIFIED 11/24/2018 LEE ALVAREZ MD Ot R56.9 UNSPECIFIED CONVULSIONS 11/24/2018 LEE ALVAREZ MD Ot R62.50 UNSP LACK OF EXPECTED NORMAL PHYSIOL DEV 11/24/2018 LEE ALVAREZ MD, Ot Z79.89 9 OTHER CRATE MAKER (CURRENT) DRUG THERAPY 11/24/2018 LEE ALVAREZ MD, Ot Z87.11 PERSONAL HISTORY OF PEPTIC ULCER DISEASE 11/24/2018 LEE ALVAREZ MD, Ot Z87.44 2 PERSONAL HISTORY OF URINARY CALCULI 11/24/2018 LEE ALVAREZ MD Ot Z99.3 DEPENDENCE ON WHEELCHAIR 11/29/2018 LEONOR HURLEY KEILY Thor Ot R41.82 ALTERED MENTAL STATUS, UNSPECIFIED 11/29/2018 ANNAOFELIA DO KEILY S Ot Z87.440 PERSONAL HISTORY OF URINARY (TRACT) INFE 11/29/2018 SHEILA BELLAMY STACKER AND SORTER OPERATOR Ot G80.9 CEREBRAL PALSY, UNSPECIFIED 11/29/2018 SHEILA BELLAMY STACKER AND SORTER OPERATOR Ot R33.9 RETENTION OF URINE, UNSPECIFIED 02/21/2019 JEMIMA, FATOU R STACKER AND SORTER OPERATOR Ot Z01.89 ENCOUNTER FOR OTHER SPECIFIED SPECIAL EX 02/21/2019 JEMIMA FATOU R STACKER AND SORTER OPERATOR Ot Z87.440 PERSONAL HISTORY OF URINARY (TRACT) INFE 02/22/2019 JEMIMA, FATOU R STACKER AND SORTER OPERATOR Ot Z01.89 ENCOUNTER FOR OTHER SPECIFIED SPECIAL EX 02/22/2019 JEMIMA, FATOU R STACKER AND SORTER OPERATOR Ot Z87.440 PERSONAL HISTORY OF URINARY (TRACT) INFE 05/03/2019 MARY TORRES, HODAN Blue Ot E86.1 HYPOVOLEMIA 05/03/2019 MARY TORRES, HODAN Blue Ot G40.909 EPILEPSY, UNSP, NOT INTRACTABLE, WITHOUT 05/03/2019 HODAN HERNANDEZ MD Ot J18.9 PNEUMONIA, UNSPECIFIED ORGANISM 05/03/2019 HODAN HERNANDEZ MD Ot K85.90 ACUTE PANCREATITIS WITHOUT NECROSIS OR I 05/03/2019 HODAN HERNANDEZ MD Ot N64.89 OTHER SPECIFIED DISORDERS OF BREAST 05/03/2019 HODAN HERNANDEZ MD Ot R11.2 NAUSEA WITH VOMITING, UNSPECIFIED 05/03/2019 HODAN HERNANDEZ MD Ot Z82.49 FAMILY HX OF ISCHEM HEART DIS AND OTH DI 05/03/2019 HODAN HERNANDEZ MD Ot Z87.440 PERSONAL HISTORY OF URINARY (TRACT) INFE 05/03/2019 HODAN HERNANDEZ MD Ot Z87.442 PERSONAL HISTORY OF URINARY CALCULI 05/03/2019 HODAN HERNANDEZ MD Ot Z93.1 GASTROSTOMY STATUS 05/17/2019 FATOU BECERRA STACKER AND SORTER OPERATOR Ot Z01.89 ENCOUNTER FOR OTHER SPECIFIED SPECIAL EX 05/17/2019 FATOU BECERRA STACKER AND SORTER OPERATOR Ot Z87.440 PERSONAL HISTORY OF URINARY (TRACT) INFE 05/17/2019 MNAAV TORRES, MARY Schilling Ot 788.30 UNSPECIFIED URINARY INCONTINENCE 05/17/2019 WEI TORRES, ENEDINA Ny Ot 787.01 NAUSEA WITH VOMITING 05/17/2019 WEI TORRES, ENEDINA Ny Ot V44.1 GASTROSTOMY STATUS 05/17/2019 [facility] Ot [facility] FB IN INTESTINE COLON 05/17/2019 ELI , [facility] Ot E915 FB ENTERING OTH ORIFICE 05/17/2019 [facility] Ot 938 FOREIGN BODY GI NOS 05/17/2019 [facility] Ot E915 FB ENTERING OTH ORIFICE 05/17/2019 MANAV TORRES, MARY Schilling Ot 789.00 ABDOMINAL PAIN, UNSPECIFIED SITE 05/17/2019 Ot 388.60 ALVAREZ RRHEA NOS 05/17/2019 MANAV TORRES, MARY Schilling Ot 789.00 ABDOMINAL PAIN, UNSPECIFIED SITE 05/17/2019 MANAV TORRES, MARY Schilling Ot 780.60 FEVER, UNSPECIFIED 05/17/2019 LESLIE TORRES, JULITO Carr Ot 733.00 OSTEOPOROSIS NOS 05/17/2019 JULITO NELSON MD Ot 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 05/17/2019 JULITO NELSON MD Ot 758 .0 DOWN'S SYNDROME 05/17/2019 MANAV TORRES, MARY Schilling Ot 276.8 HYPOPOTASSEMIA 05/17/2019 MANAV TORRES, MARY Schilling Ot 288.00 NEUTROPENIA, UNSPECIFIED 05/17/2019 MANAV TORRES, MARY Schilling Ot 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 05/17/2019 MANAV TORRES, MARY Schilling Ot 780.39 OTHER CONVULSIONS 05/17/2019 MARY EM MD Ot 788.1 DYSURIA 05/17/2019 KIM TORRES, LEE Ot V72.84 EXAM PRE-OPERATIVE NOS 05/17/2019 MANAV TORRES, MARY Schilling Ot 788.1 DYSURIA 05/17/2019 MARY EM MD, Ot 788.1 DYSURIA 05/17/2019 LEE ALVAREZ MD Ot 345.90 EPILEPSY UNSPEC W/O MENTION INTRACTABLE 05/17/2019 LEE ALVAREZ MD Ot 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 05/17/2019 LEE ALVAREZ MD Ot 787.20 DYSPHAGIA, UNSPECIFIED 05/17/2019 LEE ALVAREZ MD Ot V58.69 OTH MED,LT,CURRENT USE 05/17/2019 MARY EM MD Ot R50.9 FEVER, UNSPECIFIED 05/17/2019 MARY EM MD Ot R56.9 UNSPECIFIED CONVULSIONS 05/17/2019 MARY EM MD Ot N39.0 URINARY TRACT INFECTION, SITE NOT SPECIF 05/17/2019 MARY EM MD Ot R30.0 DYSURIA 05/17/2019 MARY EM MD Ot N20.0 CALCULUS OF KIDNEY 05/17/2019 Ot K92.0 [place]STON TEMESIS 05/17/2019 Ot Z53.21 PRO C/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 PT LV BEF SEE 05/17/2019 SANJIV CHÁVEZ STACKER AND SORTER OPERATOR Ot R10.84 GENERALIZED ABDOMINAL PAIN 05/17/2019 SANJIV CHÁVEZ STACKER AND SORTER OPERATOR Ot R30.0 DYSURIA 05/17/2019 SANJIV CHÁVEZ STACKER AND SORTER OPERATOR Ot R53.83 OTHER FATIGUE 05/17/2019 SANJIV CHÁVEZ STACKER AND SORTER OPERATOR Ot R30.0 DYSURIA 05/17/2019 SANJIV CHÁVEZ STACKER AND SORTER OPERATOR Ot R33.9 RETENTION OF URINE, UNSPECIFIED 05/17/2019 SANJIV CHÁVEZ STACKER AND SORTER OPERATOR Ot N39.0 URINARY TRACT INFECTION, SITE NOT SPECIF 05/17/2019 SANJIV CHÁVEZ STACKER AND SORTER OPERATOR Ot R21 RASH AND OTHER NONSPECIFIC SKIN ERUPTION 05/17/2019 LEE ALVAREZ MD Ot Z01.81 8 ENCOUNTER FOR OTHER PREPROCEDURAL EXAMIN 05/17/2019 KEILY ARANGO DO Ot M79.672 PAIN IN LEFT FOOT 05/17/2019 KEILY ARANGO DO Ot M79.89 OTHER SPECIFIED SOFT TISSUE DISORDERS 05/17/2019 ORENDER DO, KEILY S Ot N39.0 URINARY TRACT INFECTION, SITE NOT SPECIF 05/17/2019 YOVANYNDER DO, KEILY S Ot R10.9 UNSPECIFIED ABDOMINAL PAIN 05/17/2019 YOVANYNDER DO, KEILY S Ot R50.9 FEVER, UNSPECIFIED 05/17/2019 ORENDER DO, KEILY S Ot R32 UNSPECIFIED URINARY INCONTINENCE 05/17/2019 ORENDER DO, KEILY S Ot R35.8 OTHER POLYURIA 05/17/2019 ORENDER DO, KEILY S Ot J30.9 ALLERGIC RHINITIS, UNSPECIFIED 05/17/2019 ORENDER DO, KEILY S Ot K59.00 CONSTIPATION, UNSPECIFIED 05/17/2019 KYRA LIPSCOMB Ot K22.9 DISEASE OF ESOPHAGUS, UNSPECIFIED 05/17/2019 KYRA LIPSCOMB Ot Z93.1 GASTROSTOMY STATUS 05/17/2019 YOVANYNDER DO, KEILY S Ot R42 DIZZINESS AND GIDDINESS 05/17/2019 YOVANYNDER DO, KEILY S Ot R93.0 ABNORMAL FINDINGS ON DX IMAGING OF SKULL 05/17/2019 YOVANYNDER DO, KEILY S Ot R11.10 VOMITING, UNSPECIFIED 05/17/2019 ORENDER DO, KEILY S Ot R42 DIZZINESS AND GIDDINESS 05/17/2019 YOVANYNDER DO, KEILY S Ot R10.84 GENERALIZED ABDOMINAL PAIN 05/17/2019 YOVANYNDER DO, KEILY S Ot R50.9 FEVER, UNSPECIFIED 05/17/2019 REKHA TORRES, CECILIO Hodges Ot N20. 0 CALCULUS OF KIDNEY 05/17/2019 CECILIO DA SILVA MD Ot N28. 1 CYST OF KIDNEY, ACQUIRED 05/17/2019 REKHA TORRES, CECILIO Hodges Ot Z93. 1 GASTROSTOMY STATUS 05/17/2019 FATOU BECERRA APRN Ot J30.89 OTHER ALLERGIC RHINITIS 05/17/2019 ELE ALVAREZ MD Ot K94.23 GASTROSTOMY MALFUNCTION 05/17/2019 LEE ALVAREZ MD Ot R13.10 DYSPHAGIA, UNSPECIFIED 05/17/2019 LEE ALVAREZ MD Ot R56.9 UNSPECIFIED CONVULSIONS 05/17/2019 LEE ALVAREZ MD Ot R62.50 UNSP LACK OF EXPECTED NORMAL PHYSIOL DEV 05/17/2019 LEE ALVAREZ MD, Ot Z79.89 9 OTHER LONGTERM (CURRENT) DRUG THERAPY 05/17/2019 LEE ALVAREZ MD, Ot Z87.11 PERSONAL HISTORY OF PEPTIC ULCER DISEASE 05/17/2019 LEE ALVAREZ MD, Ot Z87.44 2 PERSONAL HISTORY OF URINARY CALCULI 05/17/2019 LEE ALVAREZ MD, Ot Z99.3 DEPENDENCE ON WHEELCHAIR 05/17/2019 YOVANYNDER DORENEKEILY S Ot R41.82 ALTERED MENTAL STATUS, UNSPECIFIED 05/17/2019 ORENDER DO, KEILY S Ot Z87.440 PERSONAL HISTORY OF URINARY (TRACT) INFE 05/17/2019 SHEILA BELLAMY APRN Ot G80.9 CEREBRAL PALSY, UNSPECIFIED 05/17/2019 SHEILA BELLAMY APRN Ot R33.9 RETENTION OF URINE, UNSPECIFIED 05/19/2019 YOVANYNDER DOBLANCAKEILY S Ot N60.01 SOLITARY CYST OF RIGHT BREAST 05/19/2019 YOVANYNDER DO, KEILY S Ot N63.10 UNSPECIFIED LUMP IN THE RIGHT BREAST, UN 05/25/2019 YOVANYNDER BLANCA HURLEYLINE S Ot J18.9 PNEUMONIA, UNSPECIFIED ORGANISM 05/25/2019 YOVANYNDER DO KEILY S Ot N39.0 URINARY TRACT INFECTION, SITE NOT SPECIF 05/25/2019 YOVANYNDRENE GILBERT DOQUELINE S Ot R74.8 ABNORMAL LEVELS OF OTHER SERUM ENZYMES 07/19/2019 BLANCA ARANGO DOLINE S Ot K86.1 OTHER CHRONIC PANCREATITIS 09/01/2019 Rene Arangoqueline S. W J32.9 Sinusitis Jemima, Fatou 10/05/2019 Rene Arangoqueline S. W J30.9 Allergic rhinitis Jemima, Fatou 10/05/2019 Blanca Arangoline S. W J30.9 Allergic rhinitis Jmeima, Fatou 10/05/2019 YovanyndRene gilbertKeily S. W J30.9 Allergic rhinitis Jemima, Fatou 10/06/2019 Blanca Arangoline S. W J30.9 Allergic rhinitis, unspecified Orender, Galina ueline S. 10/06/2019 Leonor Keily S. W J30.9 Allergic rhinitis, unspecified Galina Arango ueline S. 10/23/2019 Yovanyndofelia Keily S. W H92.03 Otalgia, bilateral Jemima, Fatou 10/23/2019 Yovanyndofelia Keily S. W H92.03 Otalgia, bilateral Jemima, Fatou 10/23/2019 Yovanyndofelia Keily S. W H92.03 Otalgia, bilateral Jemima, Fatou Procedures Code Description Performed By Per mandy On 38.93 04/24/2012 45.16 ESOP HAGOGASTRODUODENOSCOPY [EGD] W/CLOSE 04/04/2013 43.11 PERC UTANEOUS [ENDOSCOPIC] GASTROSTOMY [PEG] 01/15/2014 45.13 OTHE R ENDOSCOPY OF SM INTEST 01/15/2014 51.23 LAPA ROSCOPIC CHOLECYSTECTOMY 01/15/2014 [id number] OFFI CE OR OTHER OUTPATIENT VISIT FOR THE EVALUATION AND MANAGEMENT OF ANEW PATIENT, WHICH REQUIRES CECILIO TIDWELL MD 10/08/2016 [id number] OFFI CE OR OTHER OUTPATIENT VISIT FOR THE EVALUATION AND MANAGEMENT OF ANESTABLISHED PATIENT, WHICH CECILIO ACEVEDO MD 09/28/2017 [id number] OFFI CE OR OTHER OUTPATIENT VISIT FOR THE EVALUATION [...] DIPSTICK NEGATIVE NEGATIVE UA UROBILINOGEN DIPSTICK NORMAL GET L UA BILIRUBIN DIPSTICK NEGATIVE NEGATIVE UA BLOOD DIPSTICK NEGATIVE NEGATIVE UA SPECIFIC GRAVITY 1.015 1.015-1.02 5 UR PH 7.0 5.0-7.0 Complete urinalysis with reflex to cultu re - 08/22/16 10:25 Urine color determination YELLOW NRG Urine clarity determination CLEAR NR G Urine pH measurement by test strip 6 5-9 Specific gravity of urine by test strip 1.020 1.016-1.022 Urine protein assay by test strip, semi-quantitative 1+ NEGATIVE Urine glucose detection by automated test strip NE GATIVE NEGATIVE Erythrocytes detection in urine sediment by light micr oscopy 1+ NEGATIVE Urine ketones detection by automated test strip NE GATIVE NEGATIVE Urine nitrite detection by test strip NEGATIVE NEGATIVE Urine total bilirubin detection by test strip NEGA TIVE NEGATIVE Urine urobilinogen measurement by automated test strip (mass/volume) NORMAL NORMAL Urine leukocyte esterase detection by dipstick 1+ NEGATIVE Automated urine sediment erythrocyte cou nt by microscopy (number/high power field) [HPF] NRG Automated urine sediment leukocyte count by microscopy (number/high power field) [HPF] NRG Bacteria detection in urine sediment by light microsco py TRACE NRG Squamous epithelial cells detection in u rine sediment by light microscopy 0-2 NRG Crystals detection in urine sediment by light microsco py NONE NRG Casts detection in urine sediment by light microscopy NONE NRG Mucus detection in urine sediment by light microscopy MODERATE NRG Complete urinalysis with reflex to culture YES NRG Bacterial urine culture - 02/24/16 10:25 Bacterial urine culture NG NRG Complete blood count (CBC) with automate d white blood cell (WBC) differential - 02/24/16 10:40 Blood leukocytes automated count (number/volume) 4.5 10*3/uL 4.3-11.0 Blood erythrocytes automated count (number/volume) 4.43 10*6/uL 4.35-5.85 Venous blood hemoglobin measurement (mass/volume) 14.0 g/dL 11.5-16.0 Blood hematocrit (volume fraction) 41 % 35-52 Automated erythrocyte mean corpuscular volume 94 [ foz_us] 80-99 Automated erythrocyte mean corpuscular h emoglobin (mass per erythrocyte) 32 pg 25-34 Automated erythrocyte mean corpuscular h emoglobin concentration measurement (mass/volume) 34 g/dL 32-36 Automated erythrocyte distribution width ratio 12. 9 % 10.0- 14.5 Automated blood platelet count (count/volume) 267 10*3/uL [...] 10*3 1.0-4.0 Blood monocytes automated count (number/volume) 0. 9 10*3 0.0-1.0 Automated eosinophil count 0.1 10*3/uL 0 .0-0.3 Automated blood basophil count (count/volume) 0.0 10*3/uL 0.0-0.1 Comprehensive metabolic panel - 02/24/16 10:40 Serum or plasma sodium measurement (moles/volume) 139 mmol/L 135-145 Serum or plasma potassium measurement (moles/volume) 3.3 mmol/L 3.6-5.0 Serum or plasma chloride measurement (moles/volume) 107 mmol/L 98-107 Carbon dioxide 21 mmol/L 21-32 Serum or plasma anion gap determination (moles/volume) 11 mmol/L 5-14 Serum or plasma urea nitrogen measurement (mass/volume ) 13 mg/dL 7-18 Serum or plasma creatinine measurement (mass/volume) 0.64 mg/dL 0.60-1.30 Serum or plasma urea nitrogen/creatinine mass ratio 20 NRG Serum or plasma creatinine measurement w ith calculation of estimated glomerular filtration rate > NRG Serum or plasma glucose measurement (mass/volume) 76 mg/dL 70-105 Serum or plasma calcium measurement (mass/volume) 9.2 mg/dL 8.5-10.1 Serum or plasma total bilirubin measurement (mass/volu me) 0.2 mg/dL 0.1-1.0 Serum or plasma alkaline phosphatase destiny surement (enzymatic activity/volume) 67 U/L 40-136 Serum or plasma aspartate aminotransfera se measurement (enzymatic activity/volume) 24 U/L 5-34 Serum or plasma alanine aminotransferase measurement (enzymatic activity/volume) 22 U/L 0-55 Serum or plasma protein measurement (mass/volume) 6.9 g/dL 6.4-8.2 Serum or plasma albumin measurement (mass/volume) 4.3 g/dL 3.2-4.5 Blood manual differential performed dete ction - 02/24/16 10:40 Blood monocytes/100 leukocytes 12 % NRG Manual blood segmented neutrophils/100 leukocytes 30 % NRG Blood band neutrophils/100 leukocytes 0 % NRG Manual blood lymphocytes/100 leukocytes 57 % NRG Manual eosinophils/100 leukocytes in nose 1 % NRG Blood erythrocyte morphology finding identification NORMAL NRG Complete urinalysis with reflex to cultu re - 03/19/16 11:45 Urine color determination YELLOW NRG Urine clarity determination CLEAR NR G Urine pH measurement by test strip 6 5-9 Specific gravity of urine by test strip 1.025 1.016-1.022 Urine protein assay by test strip, semi-quantitative 2+ NEGATIVE Urine glucose detection by automated test strip NE GATIVE NEGATIVE Erythrocytes detection in urine sediment by light micr oscopy 1+ NEGATIVE Urine ketones detection by automated test strip NE GATIVE NEGATIVE Urine nitrite detection by test strip NEGATIVE NEGATIVE Urine total bilirubin detection by test strip NEGA TIVE NEGATIVE Urine urobilinogen measurement by automated test strip (mass/volume) NORMAL NORMAL Urine leukocyte esterase detection by dipstick 1+ NEGATIVE Automated urine sediment erythrocyte cou nt by microscopy (number/high power field) [HPF] NRG Automated urine sediment leukocyte count by microscopy (number/high power field) [HPF] NRG Bacteria detection in urine sediment by light microsco py TRACE NRG Squamous epithelial cells detection in u rine sediment by light microscopy 2-5 NRG Crystals detection in urine sediment by light microsco py PRESENT NRG Casts detection in urine sediment by light microscopy NONE NRG Mucus detection in urine sediment by light microscopy SMALL NRG Complete urinalysis with reflex to culture YES NRG Yeast detection in urine sediment by light microscopy FEW NRG Amorphous sediment detection in urine sediment by ligh t microscopy FEW RICHARD URATES NRG Calcium oxalate crystals detection in ur ine sediment by light microscopy RARE NRG Bacterial urine culture - 03/19/16 11:45 Bacterial urine culture [id number] NRG COLONY COUNT 10,000/ML - 100,000/ML NRG Complete blood count (CBC) with automate d white blood cell (WBC) differential - 03/27/16 12:00 Blood leukocytes automated count (number/volume) 4.6 10*3/uL 4.3-11.0 Blood erythrocytes automated count (number/volume) 4.47 10*6/uL 4.35-5.85 Venous blood hemoglobin measurement (mass/volume) 14.2 g/dL 11.5-16.0 Blood hematocrit (volume fraction) 41 % 35-52 Automated erythrocyte mean corpuscular volume 93 [ foz_us] 80-99 Automated erythrocyte mean corpuscular h emoglobin (mass per erythrocyte) 32 pg 25-34 Automated erythrocyte mean corpuscular h emoglobin concentration measurement (mass/volume) 34 g/dL 32-36 Automated erythrocyte distribution width ratio 12. 9 % 10.0- 14.5 Automated blood platelet count (count/volume) 271 10*3/uL [...] 10*3 1.0-4.0 Blood monocytes automated count (number/volume) 0. 7 10*3 0.0-1.0 Automated eosinophil count 0.1 10*3/uL 0 .0-0.3 Automated blood basophil count (count/volume) 0.0 10*3/uL 0.0-0.1 Complete blood count (CBC) with automate d white blood cell (WBC) differential - 08/09/16 15:25 Blood leukocytes automated count (number/volume) 9.5 10*3/uL 4.3-11.0 Blood erythrocytes automated count (number/volume) 4.56 10*6/uL 4.35-5.85 Venous blood hemoglobin measurement (mass/volume) 14.4 g/dL 11.5-16.0 Blood hematocrit (volume fraction) 41 % 35-52 Automated erythrocyte mean corpuscular volume 90 [ foz_us] 80-99 Automated erythrocyte mean corpuscular h emoglobin (mass per erythrocyte) 32 pg 25-34 Automated erythrocyte mean corpuscular h emoglobin concentration measurement (mass/volume) 35 g/dL 32-36 Automated erythrocyte distribution width ratio 13. 3 % 10.0- 14.5 Automated blood platelet count (count/volume) 292 10*3/uL [...] 10*3 1.0-4.0 Blood monocytes automated count (number/volume) 0. 8 10*3 0.0-1.0 Automated eosinophil count 0.0 10*3/uL 0 .0-0.3 Automated blood basophil count (count/volume) 0.0 10*3/uL 0.0-0.1 Complete urinalysis with reflex to cultu re - 08/09/16 15:25 Urine color determination YELLOW NRG Urine clarity determination CLEAR NR G Urine pH measurement by test strip 6.5 5-9 Specific gravity of urine by test strip 1.015 1.016-1.022 Urine protein assay by test strip, semi-quantitative 1+ NEGATIVE Urine glucose detection by automated test strip NE GATIVE NEGATIVE Erythrocytes detection in urine sediment by light micr oscopy NEGATIVE NEGATIVE Urine ketones detection by automated test strip 3+ NEGATIVE Urine nitrite detection by test strip NEGATIVE NEGATIVE Urine total bilirubin detection by test strip NEGA TIVE NEGATIVE Urine urobilinogen measurement by automated test strip (mass/volume) NORMAL NORMAL Urine leukocyte esterase detection by dipstick 1+ NEGATIVE Automated urine sediment erythrocyte cou nt by microscopy (number/high power field) NONE NRG Automated urine sediment leukocyte count by microscopy (number/high power field) [HPF] NRG Bacteria detection in urine sediment by light microsco py NONE NRG Squamous epithelial cells detection in u rine sediment by light microscopy 0-2 NRG Crystals detection in urine sediment by light microsco py PRESENT NRG Casts detection in urine sediment by light microscopy NONE NRG Mucus detection in urine sediment by light microscopy NEGATIVE NRG Complete urinalysis with reflex to culture NO NRG Amorphous sediment detection in urine sediment by ligh t microscopy MOD RICHARD URATES NRG Comprehensive metabolic panel - 08/09/16 15:25 Serum or plasma sodium measurement (moles/volume) 137 mmol/L 135-145 Serum or plasma potassium measurement (moles/volume) 3.4 mmol/L 3.6-5.0 Serum or plasma chloride measurement (moles/volume) 106 mmol/L 98-107 Carbon dioxide 15 mmol/L 21-32 Serum or plasma anion gap determination (moles/volume) 16 mmol/L 5-14 Serum or plasma urea nitrogen measurement (mass/volume ) 13 mg/dL 7-18 Serum or plasma creatinine measurement (mass/volume) 0.63 mg/dL 0.60-1.30 Serum or plasma urea nitrogen/creatinine mass ratio 21 [facility] Serum or plasma creatinine measurement w ith calculation of estimated glomerular filtration rate > [facility] Serum or plasma glucose measurement (mass/volume) 155 mg/dL 70-105 Serum or plasma calcium measurement (mass/volume) 8.8 mg/dL 8.5-10.1 Serum or plasma total bilirubin measurement (mass/volu me) 0.3 mg/dL 0.1-1.0 Serum or plasma alkaline phosphatase destiny surement (enzymatic activity/volume) 84 U/L 40-136 Serum or plasma aspartate aminotransfera se measurement (enzymatic activity/volume) 33 U/L 5-34 Serum or plasma alanine aminotransferase measurement (enzymatic activity/volume) 23 U/L 0-55 Serum or plasma protein [...] 5-14 Serum or plasma urea nitrogen measurement (mass/volume ) 12 mg/dL 7-18 Serum or plasma creatinine measurement (mass/volume) 0.66 mg/dL 0.60-1.30 Serum or plasma urea nitrogen/creatinine mass ratio 18 NRG Serum or plasma creatinine measurement w ith calculation of estimated glomerular filtration rate > NRG Serum or plasma glucose measurement (mass/volume) 91 mg/dL 70-105 Serum or plasma calcium measurement (mass/volume) 8.6 mg/dL 8.5-10.1 Serum or plasma total bilirubin measurement (mass/volu me) 0.2 mg/dL 0.1-1.0 Serum or plasma alkaline phosphatase destiny surement (enzymatic activity/volume) 70 U/L 40-136 Serum or plasma aspartate aminotransfera se measurement (enzymatic activity/volume) 52 U/L 5-34 Serum or plasma alanine aminotransferase measurement (enzymatic activity/volume) 39 U/L 0-55 Serum or plasma protein measurement (mass/volume) 6.5 g/dL 6.4-8.2 Serum or plasma albumin measurement (mass/volume) 4.0 g/dL 3.2-4.5 Serum or plasma amylase measurement (enz ymatic activity/volume) - 08/11/16 13:50 Serum or plasma amylase measurement (enzymatic activit y/volume) 94 U/L 25-125 Lipase - 08/11/16 13:50 Lipase 65 U/L 8-78 Automated blood complete blood count (he mogram) panel - 08/11/16 13:56 Blood leukocytes automated count (number/volume) 4.0 10*3/uL 4.3-11.0 Blood erythrocytes automated count (number/volume) 4.43 10*6/uL 4.35-5.85 Venous blood hemoglobin measurement (mass/volume) 13.8 g/dL 11.5-16.0 Blood hematocrit (volume fraction) 41 % 35-52 Automated erythrocyte mean corpuscular volume 93 [ foz_us] 80-99 Automated erythrocyte mean corpuscular h emoglobin (mass per erythrocyte) 31 pg 25-34 Automated erythrocyte mean corpuscular h emoglobin concentration measurement (mass/volume) 34 g/dL 32-36 Automated erythrocyte distribution width ratio 13. 4 % 10.0- 14.5 Automated blood platelet count (count/volume) 291 10*3/uL 130-400 Automated blood platelet mean volume measurement 8.6 [foz_us] 7.4-10.4 Influenza virus A and B antigen detectio n - 08/11/16 13:56 FLU RESULT NEGATIVE FOR INFLUENZA A AND B ANTIGENS BY IA NRG Complete urinalysis with reflex to cultu re - 09/08/16 09:00 Urine color determination YELLOW NRG Urine clarity determination CLEAR NR G Urine pH measurement by test strip 6.5 5-9 Specific gravity of urine by test strip 1.015 1.016-1.022 Urine protein assay by test strip, semi-quantitative 1+ NEGATIVE Urine glucose detection by automated test strip NE GATIVE NEGATIVE Erythrocytes detection in urine sediment by light micr oscopy NEGATIVE NEGATIVE Urine ketones detection by automated test strip NE GATIVE NEGATIVE Urine nitrite detection by test strip NEGATIVE NEGATIVE Urine total bilirubin detection by test strip NEGA TIVE NEGATIVE Urine urobilinogen measurement by automated test strip (mass/volume) NORMAL NORMAL Urine leukocyte esterase detection by dipstick NEG ATIVE NEGATIVE Automated urine sediment erythrocyte cou nt by microscopy (number/high power field) RARE NRG Automated urine sediment leukocyte count by microscopy (number/high power field) [HPF] NRG Bacteria detection in urine sediment by light microsco py NONE NRG Squamous epithelial cells detection in u rine sediment by light microscopy 2-5 NRG Crystals detection in urine sediment by light microsco py NONE NRG Casts detection in urine sediment by light microscopy NONE NRG Mucus detection in urine sediment by light microscopy SMALL NRG Complete urinalysis with reflex to culture NO NRG Bacterial urine culture - 09/08/16 09:00 Bacterial urine culture [id number] NRG COLONY COUNT 10,000/ML - 100,000/ML NRG FTX;REPORTABLE SENSITIVITY REPORTED 09/10/16 10:45 NRG Bacterial susceptibility panel - 7 09:00 Oxacillin susceptibility test by minimum inhibitory co ncentration >= NRG Gentamicin susceptibility test by minimum inhibitory c oncentration <= NRG Trimethoprim/sulfamethoxazole susceptibi lity test by minimum inhibitoryconcentration <= NRG Vancomycin susceptibility test by minimum inhibitory c oncentration 1 NRG Levofloxacin susceptibility test by minimum inhibitory concentration >= NRG Rifampin susceptibility test by minimum inhibitory con centration <= NRG Tetracycline susceptibility test by minimum inhibitory concentration <= NRG Ciprofloxacin susceptibility test by minimum inhibitor y concentration R NRG Complete blood count (CBC) with automate d white blood cell (WBC) differential - 09/26/16 14:10 Blood leukocytes automated count (number/volume) 10.3 10*3/uL 4.3-11.0 Blood erythrocytes automated count (number/volume) 4.46 10*6/uL 4.35-5.85 Venous blood hemoglobin measurement (mass/volume) 14.0 g/dL 11.5-16.0 Blood hematocrit (volume fraction) 42 % 35-52 Automated erythrocyte mean corpuscular volume 93 [ foz_us] 80-99 Automated erythrocyte mean corpuscular h emoglobin (mass per erythrocyte) 31 pg 25-34 Automated erythrocyte mean corpuscular h emoglobin concentration measurement (mass/volume) 34 g/dL 32-36 Automated erythrocyte distribution width ratio 13. 0 % 10.0- 14.5 Automated blood platelet count (count/volume) 246 10*3/uL [...] 10*3 1.0-4.0 Blood monocytes automated count (number/volume) 0. 8 10*3 0.0-1.0 Automated eosinophil count 0.0 10*3/uL 0 .0-0.3 Automated blood basophil count (count/volume) 0.0 10*3/uL 0.0-0.1 Lipase - 09/26/16 14:10 Lipase 172 U/L 8-78 Complete urinalysis with reflex to cultu re - 09/26/16 14:12 Urine color determination YELLOW NRG Urine clarity determination SLIGHTLY CLOUDY NRG Urine pH measurement by test strip 6 5-9 Specific gravity of urine by test strip 1.025 1.016-1.022 Urine protein assay by test strip, semi-quantitative 1+ NEGATIVE Urine glucose detection by automated test strip NE GATIVE NEGATIVE Erythrocytes detection in urine sediment by light micr oscopy NEGATIVE NEGATIVE Urine ketones detection by automated test strip NE GATIVE NEGATIVE Urine nitrite detection by test strip NEGATIVE NEGATIVE Urine total bilirubin detection by test strip NEGA TIVE NEGATIVE Urine urobilinogen measurement by automated test strip (mass/volume) NORMAL NORMAL Urine leukocyte esterase detection by dipstick 1+ NEGATIVE Automated urine sediment erythrocyte cou nt by microscopy (number/high power field) NONE NRG Automated urine sediment leukocyte count by microscopy (number/high power field) [HPF] NRG Bacteria detection in urine sediment by light microsco py TRACE NRG Squamous epithelial cells detection in u rine sediment by light microscopy 0-2 NRG Crystals detection in urine sediment by light microsco py NONE NRG Casts detection in urine sediment by light microscopy NONE NRG Mucus detection in urine sediment by light microscopy NEGATIVE NRG Complete urinalysis with reflex to culture NO NRG Automated blood complete blood count (he mogram) panel - 03/01/17 12:11 Blood leukocytes automated count (number/volume) 4.1 10*3/uL 4.3-11.0 Blood erythrocytes automated count (number/volume) 4.39 10*6/uL 4.35-5.85 Venous blood hemoglobin measurement (mass/volume) 13.7 g/dL 11.5-16.0 Blood hematocrit (volume fraction) 42 % 35-52 Automated erythrocyte mean corpuscular volume 96 [ foz_us] 80-99 Automated erythrocyte mean corpuscular h emoglobin (mass per erythrocyte) 31 pg 25-34 Automated erythrocyte mean corpuscular h emoglobin concentration measurement (mass/volume) 33 g/dL 32-36 Automated erythrocyte distribution width ratio 13. 0 % 10.0- 14.5 Automated blood platelet count (count/volume) 257 10*3/uL 130-400 Automated blood platelet mean volume measurement 9.1 [foz_us] 7.4-10.4 Erythrocyte sedimentation rate by richie gren method - 03/01/17 12:11 Erythrocyte sedimentation rate by westergren method 8 mm 0- 20 Complete urinalysis with reflex to cultu re - 03/01/17 12:45 Urine color determination YELLOW NRG Urine clarity determination CLEAR NR G Urine pH measurement by test strip 8 5-9 Specific gravity of urine by test strip 1.010 1.016-1.022 Urine protein assay by test strip, semi-quantitative NEGATIVE NEGATIVE Urine glucose detection by automated test strip NE GATIVE NEGATIVE Erythrocytes detection in urine sediment by light micr oscopy NEGATIVE NEGATIVE Urine ketones detection by automated test strip NE GATIVE NEGATIVE Urine nitrite detection by test strip NEGATIVE NEGATIVE Urine total bilirubin detection by test strip NEGA TIVE NEGATIVE Urine urobilinogen measurement by automated test strip (mass/volume) NORMAL NORMAL Urine leukocyte esterase detection by dipstick 1+ NEGATIVE Automated urine sediment erythrocyte cou nt by microscopy (number/high power field) NONE NRG Automated urine sediment leukocyte count by microscopy (number/high power field) NONE NRG Bacteria detection in urine sediment by light microsco py NEGATIVE NRG Squamous epithelial cells detection in u rine sediment by light microscopy RARE NRG Crystals detection in urine sediment by light microsco py NONE NRG Casts detection in urine sediment by light microscopy NONE NRG Mucus detection in urine sediment by light microscopy NEGATIVE NRG Complete urinalysis with reflex to culture NO NRG Amorphous sediment detection in urine sediment by ligh t microscopy MOD RICHARD PHOSPHATE NRG Complete urinalysis with reflex to cultu re - 08/03/17 10:35 Urine color determination YELLOW NRG Urine clarity determination CLEAR NR G Urine pH measurement by test strip 7 5-9 Specific gravity of urine by test strip 1.015 1.016-1.022 Urine protein assay by test strip, semi-quantitative 1+ NEGATIVE Urine glucose detection by automated test strip NE GATIVE NEGATIVE Erythrocytes detection in urine sediment by light micr oscopy NEGATIVE NEGATIVE Urine ketones detection by automated test strip NE GATIVE NEGATIVE Urine nitrite detection by test strip POSITIVE NEGATIVE Urine total bilirubin detection by test strip NEGA TIVE NEGATIVE Urine urobilinogen measurement by automated test strip (mass/volume) 1 mg/dL NORMAL Urine leukocyte esterase detection by dipstick 1+ NEGATIVE Automated urine sediment erythrocyte cou nt by microscopy (number/high power field) NONE NRG Automated urine sediment leukocyte count by microscopy (number/high power field) [HPF] NRG Bacteria detection in urine sediment by light microsco py TRACE NRG Squamous epithelial cells detection in u rine sediment by light microscopy 2-5 NRG Crystals detection in urine sediment by light microsco py NONE NRG Casts detection in urine sediment by light microscopy NONE NRG Mucus detection in urine sediment by light microscopy NEGATIVE NRG Complete urinalysis with reflex to culture NO NRG Bacterial urine culture - 08/03/17 10:35 Bacterial urine culture NG NRG Complete urinalysis with reflex to cultu re - 01/04/18 11:10 Urine color determination YELLOW NRG Urine clarity determination CLEAR NR G Urine pH measurement by test strip 8 5-9 Specific gravity of urine by test strip 1.015 1.016-1.022 Urine protein assay by test strip, semi-quantitative 1+ NEGATIVE Urine glucose detection by automated test strip NE GATIVE NEGATIVE Erythrocytes detection in urine sediment by light micr oscopy NEGATIVE NEGATIVE Urine ketones detection by automated test strip NE GATIVE NEGATIVE Urine nitrite detection by test strip NEGATIVE NEGATIVE Urine total bilirubin detection by test strip NEGA TIVE NEGATIVE Urine urobilinogen measurement by automated test strip (mass/volume) NORMAL NORMAL Urine leukocyte esterase detection by dipstick 1+ NEGATIVE Automated urine sediment erythrocyte cou nt by microscopy (number/high power field) NONE NRG Automated urine sediment leukocyte count by microscopy (number/high power field) [HPF] NRG Bacteria detection in urine sediment by light microsco py NEGATIVE NRG Squamous epithelial cells detection in u rine sediment by light microscopy NONE NRG Crystals detection in urine sediment by light microsco py NONE NRG Casts detection in urine sediment by light microscopy NONE NRG Mucus detection in urine sediment by light microscopy NEGATIVE NRG Complete urinalysis with reflex to culture NO NRG Amorphous sediment detection in urine sediment by ligh t microscopy MOD RICHARD PHOSPHATE NRG Complete blood count (CBC) with automate d white blood cell (WBC) differential - 07/15/18 18:16 Blood leukocytes automated count (number/volume) 9.6 10*3/uL 4.3-11.0 Blood erythrocytes automated count (number/volume) 4.47 10*6/uL 4.35-5.85 Venous blood hemoglobin measurement (mass/volume) 13.2 g/dL 11.5-16.0 Blood hematocrit (volume fraction) 40 % 35-52 Automated erythrocyte mean corpuscular volume 89 [ foz_us] 80-99 Automated erythrocyte mean corpuscular h emoglobin (mass per erythrocyte) 30 pg 25-34 Automated erythrocyte mean corpuscular h emoglobin concentration measurement (mass/volume) 33 g/dL 32-36 Automated erythrocyte distribution width ratio 14. 1 % 10.0- 14.5 Automated blood platelet count (count/volume) 270 10*3/uL [...] 10*3 1.0-4.0 Blood monocytes automated count (number/volume) 0. 7 10*3 0.0-1.0 Automated eosinophil count 0.0 10*3/uL 0 .0-0.3 Automated blood basophil count (count/volume) 0.0 10*3/uL 0.0-0.1 Complete urinalysis with reflex to cultu re - 07/15/18 18:16 Urine color determination AI NRG Urine clarity determination SLIGHTLY CLOUDY NRG Urine pH measurement by test strip 7 5-9 Specific gravity of urine by test strip 1.015 1.016-1.022 Urine protein assay by test strip, semi-quantitative 2+ NEGATIVE Urine glucose detection by automated test strip 1+ NEGATIVE Erythrocytes detection in urine sediment by light micr oscopy NEGATIVE NEGATIVE Urine ketones detection by automated test strip 3+ NEGATIVE Urine nitrite detection by test strip POSITIVE NEGATIVE Urine total bilirubin detection by test strip 2+ NEGATIVE Urine urobilinogen measurement by automated test strip (mass/volume) 8 mg/dL NORMAL Urine leukocyte esterase detection by dipstick 2+ NEGATIVE Automated urine sediment erythrocyte cou nt by microscopy (number/high power field) NONE NRG Automated urine sediment leukocyte count by microscopy (number/high power field) [HPF] NRG Bacteria detection in urine sediment by light microsco py TRACE NRG Squamous epithelial cells detection in u rine sediment by light microscopy RARE NRG Crystals detection in urine sediment by light microsco py NONE NRG Casts detection in urine sediment by light microscopy NONE NRG Mucus detection in urine sediment by light microscopy NEGATIVE NRG Complete urinalysis with reflex to culture NO NRG Amorphous sediment detection in urine sediment by ligh t microscopy MOD RICHARD URATES NR Comprehensive metabolic panel - 07/15/18 18:16 Serum or plasma sodium measurement (moles/volume) 141 mmol/L 135-145 Serum or plasma potassium measurement (moles/volume) 3.3 mmol/L 3.6-5.0 Serum or plasma chloride measurement (moles/volume) 107 mmol/L 98-107 Carbon dioxide 21 mmol/L 21-32 Serum or plasma anion gap determination (moles/volume) 13 mmol/L 5-14 Serum or plasma urea nitrogen measurement (mass/volume ) 14 mg/dL 7-18 Serum or plasma creatinine measurement (mass/volume) 0.63 mg/dL 0.60-1.30 Serum or plasma urea nitrogen/creatinine mass ratio 22 NRG Serum or plasma creatinine measurement w ith calculation of estimated glomerular filtration rate > NRG Serum or plasma glucose measurement (mass/volume) 105 mg/dL 70-105 Serum or plasma calcium measurement (mass/volume) 8.8 mg/dL 8.5-10.1 Serum or plasma total bilirubin measurement (mass/volu me) 0.2 mg/dL 0.1-1.0 Serum or plasma alkaline phosphatase destiny surement (enzymatic activity/volume) 73 U/L 40-136 Serum or plasma aspartate aminotransfera se measurement (enzymatic activity/volume) 24 U/L 5-34 Serum or plasma alanine aminotransferase measurement (enzymatic activity/volume) 18 U/L 0-55 Serum or plasma protein measurement (mass/volume) 7.3 g/dL 6.4-8.2 Serum or plasma albumin measurement (mass/volume) 4.5 g/dL 3.2-4.5 CALCIUM CORRECTED 8.4 mg/dL 8.5-10.1 Blood manual differential performed dete ction - 07/15/18 18:16 Blood monocytes/100 leukocytes 8 % NRG Manual blood segmented neutrophils/100 leukocytes 85 % NRG Manual blood lymphocytes/100 leukocytes 7 % NRG Blood erythrocyte morphology finding identification NORMAL NRG Complete urinalysis with reflex to cultu re - 11/24/18 13:35 Urine color determination YELLOW NRG Urine clarity determination CLEAR NR G Urine pH measurement by test strip 6.5 5-9 Specific gravity of urine by test strip 1.020 1.016-1.022 Urine protein assay by test strip, semi-quantitative 1+ NEGATIVE Urine glucose detection by automated test strip NE GATIVE NEGATIVE Erythrocytes detection in urine sediment by light micr oscopy NEGATIVE NEGATIVE Urine ketones detection by automated test strip NE GATIVE NEGATIVE Urine nitrite detection by test strip NEGATIVE NEGATIVE Urine total bilirubin detection by test strip NEGA TIVE NEGATIVE Urine urobilinogen measurement by automated test strip (mass/volume) NORMAL NORMAL Urine leukocyte esterase detection by dipstick 1+ NEGATIVE Automated urine sediment erythrocyte cou nt by microscopy (number/high power field) NONE NRG Automated urine sediment leukocyte count by microscopy (number/high power field) NONE NRG Bacteria detection in urine sediment by light microsco py NEGATIVE NRG Squamous epithelial cells detection in u rine sediment by light microscopy NONE NRG Crystals detection in urine sediment by light microsco py NONE NRG Casts detection in urine sediment by light microscopy NONE NRG Mucus detection in urine sediment by light microscopy NEGATIVE NRG Complete urinalysis with reflex to culture NO NRG Amorphous sediment detection in urine sediment by ligh t microscopy FEW RICHARD URATES NRG Complete urinalysis with reflex to cultu re - 02/17/19 14:10 Urine color determination YELLOW NRG Urine clarity determination CLEAR NR G Urine pH measurement by test strip 6 5-9 Specific gravity of urine by test strip 1.020 1.016-1.022 Urine protein assay by test strip, semi-quantitative NEGATIVE NEGATIVE Urine glucose detection by automated test strip NE GATIVE NEGATIVE Erythrocytes detection in urine sediment by light micr oscopy 1+ NEGATIVE Urine ketones detection by automated test strip NE GATIVE NEGATIVE Urine nitrite detection by test strip NEGATIVE NEGATIVE Urine total bilirubin detection by test strip NEGA TIVE NEGATIVE Urine urobilinogen measurement by automated test strip (mass/volume) NORMAL NORMAL Urine leukocyte esterase detection by dipstick 2+ NEGATIVE Automated urine sediment erythrocyte cou nt by microscopy (number/high power field) [HPF] NRG Automated urine sediment leukocyte count by microscopy (number/high power field) [HPF] NRG Bacteria detection in urine sediment by light microsco py LARGE NRG Squamous epithelial cells detection in u rine sediment by light microscopy RARE NRG Crystals detection in urine sediment by light microsco py NONE NRG Casts detection in urine sediment by light microscopy NONE NRG Mucus detection in urine sediment by light microscopy NEGATIVE NRG Complete urinalysis with reflex to culture YES NRG Bacterial urine culture - 02/17/19 14:10 Bacterial urine culture [id number] NRG COLONY COUNT >100,000/ML NRG FTX;REPORTABLE SUSCEPTIBILITY REPORTED 02/19 12:20 NRG Dirithromycin susceptibility test by dis k diffusion - 02/17/19 14:10 Gentamicin susceptibility test by minimum inhibitory c oncentration <= NRG Trimethoprim/sulfamethoxazole susceptibi lity test by minimum inhibitoryconcentration > NRG Levofloxacin susceptibility test by minimum inhibitory concentration <= NRG Ampicillin susceptibility test by minimum inhibitory c oncentration > NRG Cefazolin susceptibility test by minimum inhibitory co ncentration 4 NRG Ceftriaxone susceptibility test by minimum inhibitory concentration <= NRG Ciprofloxacin susceptibility test by minimum inhibitor y concentration <= NRG Meropenem susceptibility test by minimum inhibitory co ncentration <= NRG Nitrofurantoin susceptibility test by mi nimum inhibitory concentration <= NRG Amoxicillin and clavulanate potassium susc VANESSA = NRG Complete blood count (CBC) with automate d white blood cell (WBC) differential - 05/03/19 15:30 Blood leukocytes automated count (number/volume) 8.1 10*3/uL 4.3-11.0 Blood erythrocytes automated count (number/volume) 4.45 10*6/uL 4.35-5.85 Venous blood hemoglobin measurement (mass/volume) 13.8 g/dL 11.5-16.0 Blood hematocrit (volume fraction) 42 % 35-52 Automated erythrocyte mean corpuscular volume 94 [ foz_us] 80-99 Automated erythrocyte mean corpuscular h emoglobin (mass per erythrocyte) 31 pg 25-34 Automated erythrocyte mean corpuscular h emoglobin concentration measurement (mass/volume) 33 g/dL 32-36 Automated erythrocyte distribution width ratio 13. 7 % 10.0- 14.5 Automated blood platelet count (count/volume) 297 10*3/uL 130-400 Automated blood platelet mean volume measurement 8.6 [foz_us] 7.4-10.4 Automated blood neutrophils/100 leukocytes 91 % 42-75 Automated blood lymphocytes/100 leukocytes 8 % 12-44 Blood monocytes/100 leukocytes 1 % 0-12 Automated blood eosinophils/100 leukocytes 0 % 0-10 Automated blood basophils/100 leukocytes 0 % 0-10 Blood neutrophils automated count (number/volume) 7.4 10*3 1.8-7.8 Blood lymphocytes automated count (number/volume) 0.7 10*3 1.0-4.0 Blood monocytes automated count (number/volume) 0. 1 10*3 0.0-1.0 Automated eosinophil count 0.0 10*3/uL 0 .0-0.3 Automated blood basophil count (count/volume) 0.0 10*3/uL 0.0-0.1 Comprehensive metabolic panel - 05/03/19 15:30 Serum or plasma sodium measurement (moles/volume) 142 mmol/L 135-145 Serum or plasma potassium measurement (moles/volume) 3.4 mmol/L 3.6-5.0 Serum or plasma chloride measurement (moles/volume) 107 mmol/L 98-107 Carbon dioxide 24 mmol/L 21-32 Serum or plasma anion gap determination (moles/volume) 11 mmol/L 5-14 Serum or plasma urea nitrogen measurement (mass/volume ) 15 mg/dL 7-18 Serum or plasma creatinine measurement (mass/volume) 0.69 mg/dL 0.60-1.30 Serum or plasma urea nitrogen/creatinine mass ratio 22 NRG Serum or plasma creatinine measurement w ith calculation of estimated glomerular filtration rate > NRG Serum or plasma glucose measurement (mass/volume) 194 mg/dL 70-105 Serum or plasma calcium measurement (mass/volume) 9.0 mg/dL 8.5-10.1 Serum or plasma total bilirubin measurement (mass/volu me) 0.2 mg/dL 0.1-1.0 Serum or plasma alkaline phosphatase destiny surement (enzymatic activity/volume) 84 U/L 40-136 Serum or plasma aspartate aminotransfera se measurement (enzymatic activity/volume) 25 U/L 5-34 Serum or plasma alanine aminotransferase measurement (enzymatic activity/volume) 21 U/L 0-55 Serum or plasma protein measurement (mass/volume) 7.4 g/dL 6.4-8.2 Serum or plasma albumin measurement (mass/volume) 4.6 g/dL 3.2-4.5 Serum or plasma C reactive protein measu rement (mass/volume) - 05/03/19 15:30 Serum or plasma C reactive protein measurement (mass/v olume) 0.42 mg/dL 0.00-0.50 Manual absolute plasma cell count - 04/06 15:30 Manual blood segmented neutrophils/100 leukocytes 92 % NRG Blood band neutrophils/100 leukocytes 2 % NRG Manual blood lymphocytes/100 leukocytes 5 % NRG Blood erythrocyte morphology finding identification NORMAL NRG Complete urinalysis with reflex to cultu re - 05/03/19 16:15 Urine color determination YELLOW NRG Urine clarity determination CLEAR NR G Urine pH measurement by test strip 6.5 5-9 Specific gravity of urine by test strip 1.020 1.016-1.022 Urine protein assay by test strip, semi-quantitative 2+ NEGATIVE Urine glucose detection by automated test strip 4+ NEGATIVE Erythrocytes detection in urine sediment by light micr oscopy NEGATIVE NEGATIVE Urine ketones detection by automated test strip 4+ NEGATIVE Urine nitrite detection by test strip NEGATIVE NEGATIVE Urine total bilirubin detection by test strip NEGA TIVE NEGATIVE Urine urobilinogen measurement by automated test strip (mass/volume) NORMAL NORMAL Urine leukocyte esterase detection by dipstick NEG ATIVE NEGATIVE Automated urine sediment erythrocyte cou nt by microscopy (number/high power field) RARE NRG Automated urine sediment leukocyte count by microscopy (number/high power field) RARE NRG Bacteria detection in urine sediment by light microsco py NEGATIVE NRG Squamous epithelial cells detection in u rine sediment by light microscopy 0-2 NRG Crystals detection in urine sediment by light microsco py PRESENT NRG Casts detection in urine sediment by light microscopy NONE NRG Mucus detection in urine sediment by light microscopy SMALL NRG Complete urinalysis with reflex to culture NO NRG Amorphous sediment detection in urine sediment by ligh t microscopy FEW RICHARD URATES NRG Lipase - 05/03/19 17:00 Lipase 155 U/L 8-78 Complete urinalysis with reflex to cultu re - 05/23/19 14:20 Urine color determination YELLOW NRG Urine clarity determination SL CLOUDY N RG Urine pH measurement by test strip 6.5 5-9 Specific gravity of urine by test strip 1.020 1.016-1.022 Urine protein assay by test strip, semi-quantitative NEGATIVE NEGATIVE Urine glucose detection by automated test strip NE GATIVE NEGATIVE Erythrocytes detection in urine sediment by light micr oscopy TRACE-I NEGATIVE Urine ketones detection by automated test strip NE GATIVE NEGATIVE Urine nitrite detection by test strip NEGATIVE NEGATIVE Urine total bilirubin detection by test strip NEGA TIVE NEGATIVE Urine urobilinogen measurement by automated test strip (mass/volume) 0.2 mg/dL < = 1.0 Urine leukocyte esterase detection by dipstick NEG ATIVE NEGATIVE Automated urine sediment erythrocyte cou nt by microscopy (number/high power field) [HPF] NRG Automated urine sediment leukocyte count by microscopy (number/high power field) NONE NRG Bacteria detection in urine sediment by light microsco py NEGATIVE NRG Squamous epithelial cells detection in u rine sediment by light microscopy NONE NRG Crystals detection in urine sediment by light microsco py PRESENT NRG Casts detection in urine sediment by light microscopy NONE NRG Mucus detection in urine sediment by light microscopy NEGATIVE NRG Complete urinalysis with reflex to culture NO NRG Amorphous sediment detection in urine sediment by lig t microscopy MOD RICHARD URATES NRG Complete blood count (CBC) with automate d white blood cell (WBC) differential - 05/23/19 14:40 Blood leukocytes automated count (number/volume) 3.6 10*3/uL 4.3-11.0 Blood erythrocytes automated count (number/volume) 3.99 10*6/uL 4.35-5.85 Venous blood hemoglobin measurement (mass/volume) 12.5 g/dL 11.5-16.0 Blood hematocrit (volume fraction) 39 % 35-52 Automated erythrocyte mean corpuscular volume 97 [ foz_us] 80-99 Automated erythrocyte mean corpuscular h emoglobin (mass per erythrocyte) 31 pg 25-34 Automated erythrocyte mean corpuscular h emoglobin concentration measurement (mass/volume) 33 g/dL 32-36 Automated erythrocyte distribution width ratio 13. 4 % 10.0- 14.5 Automated blood platelet count (count/volume) 268 10*3/uL 130-400 Automated blood platelet mean volume measurement 8.7 [foz_us] 7.4-10.4 Automated blood neutrophils/100 leukocytes 42 % 42-75 Automated blood lymphocytes/100 leukocytes 42 % 12-44 Blood monocytes/100 leukocytes 10 % 0-12 Automated blood eosinophils/100 leukocytes 6 % 0-10 Automated blood basophils/100 leukocytes 0 % 0-10 Blood neutrophils automated count (number/volume) 1.5 10*3 1.8-7.8 Blood lymphocytes automated count (number/volume) 1.5 10*3 1.0-4.0 Blood monocytes automated count (number/volume) 0. 4 10*3 0.0-1.0 Automated eosinophil count 0.2 10*3/uL 0 .0-0.3 Automated blood basophil count (count/volume) 0.0 10*3/uL 0.0-0.1 Whole blood basic metabolic panel - 05/05 03/23 14:40 Serum or plasma sodium measurement (moles/volume) 143 mmol/L 135-145 Serum or plasma potassium measurement (moles/volume) 3.9 mmol/L 3.6-5.0 Serum or plasma chloride measurement (moles/volume) 108 mmol/L 98-107 Carbon dioxide 26 mmol/L 21-32 Serum or plasma anion gap determination (moles/volume) 9 mmol/L 5-14 Serum or plasma urea nitrogen measurement (mass/volume ) 13 mg/dL 7-18 Serum or plasma creatinine measurement (mass/volume) 0.63 mg/dL 0.60-1.30 Serum or plasma urea nitrogen/creatinine mass ratio 21 NRG Serum or plasma creatinine measurement w ith calculation of estimated glomerular filtration rate > NRG Serum or plasma glucose measurement (mass/volume) 105 mg/dL 70-105 Serum or plasma calcium measurement (mass/volume) 8.6 mg/dL 8.5-10.1 Serum or plasma amylase measurement (enz ymatic activity/volume) - 05/23/19 14:40 Serum or plasma amylase measurement (enzymatic activit y/volume) 103 U/L 25-125 Lipase - 05/23/19 14:40 Lipase 85 U/L 8-78 Comprehensive metabolic panel - 07/13/19 14:15 Serum or plasma sodium measurement (moles/volume) 138 mmol/L 135-145 Serum or plasma potassium measurement (moles/volume) 3.8 mmol/L 3.6-5.0 Serum or plasma chloride measurement (moles/volume) 106 mmol/L 98-107 Carbon dioxide 21 mmol/L 21-32 Serum or plasma anion gap determination (moles/volume) 11 mmol/L 5-14 Serum or plasma urea nitrogen measurement (mass/volume ) 11 mg/dL 7-18 Serum or plasma creatinine measurement (mass/volume) 0.63 mg/dL 0.60-1.30 Serum or plasma urea nitrogen/creatinine mass ratio 17 NRG Serum or plasma creatinine measurement w ith calculation of estimated glomerular filtration rate > NRG Serum or plasma glucose measurement (mass/volume) 98 mg/dL 70-105 Serum or plasma calcium measurement (mass/volume) 9.3 mg/dL 8.5-10.1 Serum or plasma total bilirubin measurement (mass/volu me) 0.1 mg/dL 0.1-1.0 Serum or plasma alkaline phosphatase destiny surement (enzymatic activity/volume) 55 U/L 40-136 Serum or plasma aspartate aminotransfera se measurement (enzymatic activity/volume) 19 U/L 5-34 Serum or plasma alanine aminotransferase measurement (enzymatic activity/volume) 17 U/L 0-55 Serum or plasma protein measurement (mass/volume) 6.6 g/dL 6.4-8.2 Serum or plasma albumin measurement (mass/volume) 4.3 g/dL 3.2-4.5 CALCIUM CORRECTED 9.1 mg/dL 8.5-10.1 Serum or plasma amylase measurement (enz ymatic activity/volume) - 07/13/19 14:15 Serum or plasma amylase measurement (enzymatic activit y/volume) 114 U/L 25-125 Lipase - 07/13/19 14:15 Lipase 113 U/L 8-78 Radiology Report from [id number] on 012 16:58:00 Final ReportADMITTING DIAGNOSIS: Kidney stone, sepsis lt nephrostomyU/S GUIDE NEEDLE PLMT ADDITIONAL - 04/26/2012 [facility] ON RESULT: INDICATION: Urosepsis, renal calculi, hydronephrosis.COMPARISON: None.FINDINGS:Ultrasound was utilized to access the right kidney for percutaneous nephrostomycatheter placement. A large stone and moderate hydronephrosis are present.IMPRESSION: Ultrasound-guided needle placement, left kidney.Dictated on work station # [id number] RADIOLOGIST: MISTI ROMO M.D., RADIOLOGISTELECTRONICALLY SIGNED BY: MISTI ROMO M.D., RADIOLOGISTD Apr 26 2012 12:11PT PH : Apr 26 2012 4:56PS Apr 26 2012 4:56P Radiology Report from [id number] on 012 16:58:00 Final ReportADMITTING DIAGNOSIS: Kidney stone, sepsis lt nephrostomyNEPHROSTOGRAM LT - 04/26/2012 [facility] ON RESULT: INDICATION: Hydronephrosis, renal calculi, fever.COMPARISON: CT abdomen and pelvis, 04/25/2012.PROCEDURE and TECHNIQUE:The risks and benefits of the procedure were explained to the patient andinformed consent obtained. Consent was obtained through a family member. Thepatient was placed prone on the fluoroscopic table. The left flank was preppedand draped in the usual sterile fashion. 1% lidocaine was used to anesthetizethe overlying tissues. Under ultrasound guidance lower pole left kidney wasaccessed with a 22-gauge needle. Contrast was infused to confirm positioningwithin the lower pole calyx. This was followed by catheter and wire placementof the mid ureter. Next, a nephrostomy catheter was placed into the lower polein the region of the large stone and formed. Nephrostogram demonstratedsatisfactory placement of the PCN tube. Note is made of a double collectingsystem.SEDATION: Due to the painful nature of this procedure, moderate conscioussedation was employed after the careful evaluation of the patient by myself andmembers of the radiology nursing staff. Under my direct supervision, theradiology nurse administered intravenous medications to alter the level ofconscious. I was present with the patient while the sedation was [id number] to [id number] for a total time of 60 minutes. The patient was continuouslymonitored by the radiology nurse for changes in heart rate, blood pressure andpulse oximetry.IMPRESSION: Percutaneous nephrostomy catheter jonathan cement lower pole left kidney.Dictated on work station # [id number] BY: MISTI ROMO M.D., RADIOLOGISTELECTRONICALLY SIGNED BY: MISTI ROMO M.D., RADIOLOGISTD Apr 26 2012 12:11PT PH : Apr 26 2012 4:56PS Apr 26 2012 4:56P Radiology Report from [id number] on 012 15:25:00 Final ReportADMITTING DIAGNOSIS: Kidney stone, sepsis Check Central line placementCHEST PORTABLE SINGLE VIEW - 04/27/2012 [facility] RESULT: INDICATION: Left arm central line placement.COMPARISON: 04/24/2012.FINDINGS: Single frontal view of the chest was obtained and demonstrates leftsubclavian central line, the tip of which terminates in the low SVC. Radiopaquetubing is also seen projecting over the left upper extremity and terminating inthe region of the left axillary vein.Cardiac silhouette and pulmonary vascularity are stable. The lungs show diffusehazy opacification, whic h may be technical in nature. There is no focalconsolidation or pneumothorax, bilaterally. Osseous structures show no focalabnormalities.IMPRESSION: 1. Radiopaque tubing overlying the left upper extremity terminating in theregion of the left axillary vein.2. Stable left subclavian central line.3. Diffuse hazy opacification of both lung pat, which could be related totechnique versus layering pleural effusions. Lateral view may be of benefit.Dictated on work station # [id number] BY: SERG ST M.D., ELECTRONICALLY SIGNED BY: SERG ST M.D., Uriel Apr 27 2012 9:47PT STEPHANIE: Apr 29 2012 9:04AS Apr 29 2012 9:04A Radiology Report from [id number] on 15:33:00 Final ReportADMITTING DIAGNOSIS: Kidney stone, sepsis abdominal painKUB (ABDOMEN) - 05/01/2012 [facility]: INDICATION: Renal stent. Constipation.A portable supine abdomen 0745 hours.FINDINGS:Since the previous study of 04/20/2012, there has been placement of a pigtailcatheter over the left upper quadrant. The left ureteral stent remains inplace. High density is noted over the tip of the pigtail catheter compatiblewith stone. Bowel gas pattern demonstrates scattered gas-filled loops of bowel.There is a mild amount of retained fecal material in both the proximal colonand distally at the level of the rectum. Stomach is mildly distended. Otherwisethere are no findings suggest bowel obstruction.IMPRESSION: 1. Interval placement of an apparent likely nephrostomy tube in the region of alarge renal stone.2. Mild severity constipation without evidence of bowel obstruction.Dictated on work station # [id number] BY: CÉSAR LOYD D.O., RADIOLOGISTELECTRONICALLY SIGNED BY: CÉSAR LOYD D.O., RADIOLOGISTD May 01 2012 7:53AT STEPHANIE: May 01 2012 9:05AS May 01 2012 9:05A Radiology Report from [id number] on 15:38:00 Final ReportADMITTING DIAGNOSIS: Kidney stone, sepsis kidney stonesCT ABD/PELVIS W/O - 05/02/2012 [facility] RES[facility]: INDICATION: History of kidney stones. Recently placed left nephrostomy tube.COMPARISON: CT dated 04/23/2012TECHNIQUE: Routine noncontrast CT images were obtained through the abdomen andpelvis.FINDINGS: views of the lung bases demonstrate small bibasilarpleural effusions and associated dependent compressive atelectasis.CT abdomen: Since the previous exam, there has been interval placement ofleft-sided percutaneous nephrostomy tube. There is mild amount of perinephrichemorrhage. Small amount of air is also seen in the perinephric fat, as well aswithin the central collecting system. Evaluation is somewhat suboptimalsecondary to lack of contrast, but the catheter appears to be located centrallywithin the collecting system, and there appears to be interval improvement ofhydronephrosis. Left-sided double-J ureteral stent remains. Multiple largecollecting system calculi remain. There is some residual contrast within thedistal ureter.Nonobstructive right renal calculus remains. Note is again made of largehypodense right renal cyst.The liver, spleen, adrenal glands and pancreas demonstrate normal noncontrastappearance. Small bowel loops are nondistended. Normal appendix is identified.There is moderate amount of stool scattered throughout the colon.No free fluid, free air or loculated fluid collections are seen in the abdomen.No pathologically enlarged or morphologically abnormal lymph nodes areidentified. Osseous structures are age appropriate.CT pelvis: Small amount of free fluid is noted in lower pelvis. There is noloculated fluid collection or free air. No pathologically enlarged ormorphologically abnormal lymph nodes are identified. Urinary bladder is grosslyunremarkable. Osseous structures are age appropriate.IMPRESSION: 1. Interval left-sided percutaneous nephrostomy tube placement. Small amount ofperinephric hemorrhage, but no loculated fluid collections are identified,although evaluation is somewhat suboptimal secondary to lack of IV contrast.2. Interval improvement in hydronephrosis.3. Normal appendix.4. Moderate colonic stool. Please correlate for constipation.5. Nonobstructive right renal calculus.Dictated on work station #[id number] BY: SERG ST M.D., ELECTRONICALLY SIGNED BY: SERG ST M.D., D May 02 2012 7:45AT RF : May 02 2012 5:00PS May 02 2012 5:00P Radiology Report from [id number] on 012 15:48:00 Final ReportADMITTING DIAGNOSIS: Kidney stone, sepsis Assess post-op stom burdenCT ABD/PELVIS W/O - 05/04/2012 [facility]: INDICATION: Evaluate postoperative renal calculi burden.RESULT: Noncontrast CT scanning of the abdomen and pelvis is compared to aprevious exam from two days ago. A left ureteral stent and nephrostomy tuberemain in place. There is some left-sided hydronephrosis and dilatation of theleft ureter which has slightly decreased. There is an area of calcification inthe superior aspect of the left renal pelvis measuring 15 x 5 mm. This has morethe appearance of several small calculi or sludge than a single large calculus.A small calculus is seen in the proximal ureter adjacent to the stent. Thismeasures approximately 2-3 mm. Subcentimeter bilateral pleural effusions andmild adjacent atelectasis are present. These have decreased from two days ago.There is a minimal hiatal hernia. A simple cyst is seen in the right kidney.There is a 3 mm calculus in the mid to lower pole of the right kidney. This waspresent on the previous exam. The liver, gallbladder, spleen, pancreas, andadrenal glands appear normal. There is a trace amount of free fluid in thepelvis. The uterus appears normal. A Woods catheter is present within theurinary bladder.IMPRESSION: 1. Mild left hydronephrosis and dilatation of the left ureter is slightlydecreased.2. There is a conglomerate region of small calculi and sludge in the superioraspect of the left renal pelvis measuring 15 x 5 mm.3. A 3 mm calculus is seen in the mid to lower pole of the right kidney and a2-3 mm calculus is seen in the proximal left ureter.Dictated on work station # [id number] BY: DENICE NEGRO M.D., ELECTRONICALLY SIGNED BY: DENICE NEGRO M.D., Uriel May 04 2012 3:26PT MSK: May 04 2012 5:16PS May 04 2012 5:16P Radiology Report from [id number] on 012 16:03:00 Final ReportADMITTING DIAGNOSIS: Kidney stone, sepsis WIth NT RemovalNEPHROSTOGRAM LT - 05/06/2012 [facility]: INDICATION: Left renal stones. Nephrostomy catheter removal.COMPARISON: 05/03/2012, 05/04/2012.FINDINGS:Existing nephrostomy catheter was injected with contrast showing continued milddilation of the lower pole moiety. The double-J stent is in the upper polemoiety and in good position. Contrast flowed freely into the distal ureter. Noobvious calculi are seen. The nephrostomy catheter was removed.CONSCIOUS SEDATION: Due to the painful nature of this procedure, mo derateconscious sedation was employed after the careful evaluation of the patient bymyself and members of the radiology nursing staff. Under my direct supervision,the radiology nurse administered intravenous medications to alter the level ofconscious. I was present with the patient while the sedation was administeredfor a total time of 30 minutes. The patient was continuously monitored by theradiology nurse for changes in heart rate, blood pressure and pulse oximetry.IMPRESSION: Interval removal of a left kidney nephrostomy catheter as described.Dictated on work station # [id number] BY: MISTI ROMO M.D., RADIOLOGISTELECTRONICALLY SIGNED BY: MISTI ROMO M.D., RADIOLOGISTD May 06 2012 1:56PT YUE: May 06 2012 4:01PS May 06 2012 4:01P Radiology Report from [id number] on 012 13:46:00 Final ReportADMITTING DIAGNOSIS: Kidney stone, sepsis for stent placementABDOMEN(KUB) - 05/09/2012 [facility]P ON [facility] RESULT: INDICATION: Stent placement.EXAMINATION: Frontal abdomen 05/09/2012.COMPARISON: Made to 05/01/2012.FINDINGS: Left-sided stent is noted along its proximal aspect. Proximalaspect is seen in the left midabdomen. It courses down into the pelvis.Scattered stool seen throughout the colon. A few prominent loops of air- filledof bowel in the left upper quadrant likely superimposed large and small bowelloops. No definite obstructive process is seen. There is no free air.IMPRESSION: 1. Left-sided ureteral stent, partially imaged. Visualized aspectsunremarkable.2. Nonspecific, nonobstructive bowel gas pattern.Dictated on work station # [id number] BY: XAVIER COLES M.D., ELECTRONICALLY SIGNED BY: XAVIER COLES M.D., D May 09 2012 6:25PT GS : May 10 2012 1:44PS May 10 2012 1:44P Radiology Report from [id number] on 012 16:27:00 Final ReportADMITTING DIAGNOSIS: Kidney stone, sepsis S/p PCNL eval for possible lower obstructionCT ABD/PELVIS W W/O - 05/10/2012 [facility]: INDICATION: Status post PCNL evaluation for possible obstruction.RESULT: Precontrast, postcontrast and delayed images of the abdomen and pelvisare obtained without oral contrast. The exam is compared to a noncontrast studyfrom May 04.The lung bases are clear. The liver, gallbladder, spleen, pancreas and adrenalglands appear normal. The right kidney has a 4.8 cm simple cyst. There aresmall 3 mm calculi in the right renal pelvis towards the lower pole. On theleft side, a left ureteral stent remains in place. The nephrostomy tube hasbeen removed. A small amount of hemorrhage is seen along the nephrostomy tubetract. The previous calculi seen in the upper pole of the left kidney are nolonger identified. A left ureteral stent remains in place. The previous calculiseen at the left ureteropelvic junction is no longer identified. The proximalureter still remains mildly dilated as does the renal pelvis. The calyces aredecompressed. No calculi are seen within the urinary bladder. The uterusappears unremarkable. Constipation is present. Small bowel loops are normal. Noascites or free air is present.IMPRESSION: 1. Interval removal of the left nephrostomy tube. There is a small amount ofhemorrhage along the nephrostomy tube tract which appears acute. The calculi inthe upper pole of the left kidney and in the ureteropelvic junction are nolonger identified. There is still some dilatation of the left renal pelvis andproximal ureter.2. Small calculi in the inferior aspect of the right renal pelvis, stable.3. Constipation.Dictated on work station # [id number] BY: DENICE NEGRO M.D., ELECTRONICALLY SIGNED BY: DENICE NEGRO M.D., D May 10 2012 9:08AT RF : May 10 2012 4:25PS May 10 2012 4:25P Radiology Report from [id number] on 012 11:31:00 Final ReportADMITTING DIAGNOSIS: Kidney stone, sepsis feverCHEST PORTABLE SINGLE VIEW - 05/11/2012 [facility]: INDICATION: Fever.FINDINGS: The heart size is normal. Lungs are clear. There is no pleuraleffusion or pneumothorax. There is a left subclavian central venous catheterwhich has its tip in the superior vena cava.IMPRESSION: No acute cardiopulmonary abnormality.Dictated on work station # [id number] BY: YENI COKO II, M.D., RADIOLOGISTELECTRONICALLY SIGNED BY: YENI COOK II, M.D., RADIOLOGISTD May 11 2012 10:01AT ESTELA : May 11 2012 11:29AS May 11 2012 11:29A Radiology Report from [id number] on 16:18:00 Final ReportADMITTING DIAGNOSIS: Kidney stone, sepsis CONSTIPATIONABDOMEN(KUB) - 05/13/2012 [facility]: INDICATION: ConstipationEXAMINATION: KUBFINDINGS:Mild ileus or air trapping. There is air in colon and smallbowel. No obstruction. Specifically, no evidence of any stool incolon. There is a mass over the pelvis but it appears to be afull bladder. No free fluid or abnormal calcifications. No othermasses are seen.IMPRESSION: 1. Minimal ileus or possibly air swallowing but no obstruction.2. No evidence of any stool in colon.Dictated on workstation # [id number] BY: BARAK WORTHY M.D., RADIOLOGISTELECTRONICALLY SIGNED BY: BARAK WORTHY M.D., RADIOLOGISTD May 13 2012 9:40AT RF : May 13 2012 4:16PS May 13 2012 4:16P Radiology Report from [id number] on 18:29:00 Final ReportADMITTING DIAGNOSIS: Kidney stone, sepsis abd pain and feverCT ABD/PELVIS W/O - 05/14/2012 [facility]: INDICATION: Abdominal pain and feverCT abdomen and pelvis without contrastThe lung bases are clear. The liver appears normal. Thegallbladder is present. The spleen is not enlarged. There are nopancreatic masses. There is a 4 cm cyst in the upper lateralmargin of the right kidney. There is a tiny calcification in theinferior pole calyx of left kidney and a 3 mm calculus in theinferior pole calyx of the right kidney. There is nohydronephrosis. Ureters are not dilated. The appendix appearsnormal. Uterus is present. There is no intraperitoneal free airor free fluid.IMPRESSION: Bilateral nephrolithiasis. There are no acuteabnormalities seen in the abdomen or pelvis.Dictated on workstation # [id number] BY: RUFUS GRAFF M.D., RADIOLOGISTELECTRONICALLY SIGNED BY: RUFUS GRAFF M.D., RADIOLOGISTD May 14 2012 6:24PT STEPHANIE: May 14 2012 6:26PS May 14 2012 6:26P Radiology Report from [id number] on 012 10:48:00 Final ReportADMITTING DIAGNOSIS: Kidney stone, sepsis PICCCHEST PIC LINE PLACEMENT-ONE VIE - 05/14/2012 [facility]: INDICATION: PICC line placementEXAMINATION: Chest AP portable upright 05/14 at 10:25FINDINGS: PICC line is in the superior vena cava but it isfolded on itself with the tip going back anteriorly, it can beinjected through, it is adequate. The chest exam is normal.IMPRESSION: PICC line is folded on itself but it is in thesuperior vena cava as discussed in more detail above.Dictated on workstation # [id number] BY: BARAK WORTHY M.D., RADIOLOGISTELECTRONICALLY SIGNED BY: BARAK WORTHY M.D., RADIOLOGISTD May 15 2012 7:34AT STEPHANIE: May 15 2012 10:46AS May 15 2012 10:46A Radiology Report from [id number] on 10:48:00 Final ReportADMITTING DIAGNOSIS: Kidney stone, sepsis Reposition PICCCHEST PIC LINE PLACEMENT-ONE VIE - 05/14/2012 [facility]: INDICATION: PICC lineEXAMINATION: 05/14/2012 at 10:41 AP upright.FINDINGS: PICC line has been straightened out. It no longerfolds on itself and is in good alignment still in the superiorvena cava. The chest is normal.IMPRESSION: PICC line is in good position in superior vena cava.It has been repositioned.Dictated on workstation # [id number] BY: BARAK WORTHY M.D., RADIOLOGISTELECTRONICALLY SIGNED BY: Danilo GAMBOA, RADIOLOGISTD May 15 2012 7:45AT TIFFANY: May 15 2012 10:46AS May 15 2012 10:46A Encounters ACCT No. Visit Date/Time Discharge Status Pt. Type Provider Facility Loc./Unit Complaint [id number] 09/28/2017 13:06:00 09/28/2017 23:5 9:59 CLS Outpatient REKHA TORRES, CECILIO Hodges [id number] 07/13/2019 14:04:00 23:59:59 CLS Outpatient KEILY ARANGO DO [facility] LAB CHRONIC PANCREA TITIS [id number] 05/23/2019 14:04:00 23:59:59 CLS Outpatient KEILY ARANGO DO S [facility] URINARY TRACT INFECTION,PNEUMONIA [id number] 05/17/2019 10:50:00 23:59:59 CLS Outpatient KEILY ARANGO DO [facility] RAD R BREAST NODULE [id number] 05/03/2019 14:06:00 19:42:00 DIS Emergency MARY TORRES, HODAN Blue [facility] ER SEIZURES;VOMITI NG [id number] 02/17/2019 13:45:00 23:59:59 CLS Outpatient FATOU BECERRA [employer] [facility] FREQ UTI [id number] 11/25/2018 10:02:00 23:59:59 CLS Outpatient SHEILA BELLAMY [employer] OPERATOR [facility] LAB URINARY RETENTI ON,CEREBRAL PALSY [id number] 11/24/2018 13:10:00 23:59:59 CLS Outpatient KEILY ARANGO DO [facility] MENTAL STATUS C JOHNE, HX OF UTIS [id number] 07/20/2018 10:27:00 23:59:59 CLS Outpatient LEE ALVAREZ MD [facility] ENDO NON FUNCTIONING PEG TUB E [id number] 07/13/2018 05:40:00 019 13:01:00 DIS Outpatient LEE ALVAREZ MD [facility] PREOP EGD [id number] 07/15/2018 17:39:00 019 21:47:00 DIS Emergency DIANA ONEILL MD [facility] ER VOMITING [id number] 01/04/2018 10:49:00 018 11:25:00 DIS Outpatient FATOU BECERRA [employer] OPERATOR [facility] ANURIA,FATIGUE, VOMITING [id number] 10/12/2017 10:23:00 018 23:59:59 CLS Outpatient FATOU BECERRA [employer] OPERATOR [facility] ALLERGY RELIEF [id number] 09/22/2017 12:06:00 018 23:59:59 CLS Outpatient CECILIO DA SILVA MD [facility] RAD N20.0 HX OF KIDNEY [id number] 09/14/2017 16:34:00 018 17:50:00 DIS Emergency CARLYN DESIR [employer] OPERATOR [facility] ER LEFT FOOT INJ;MULTIPLE SEIZURES [id number] 08/03/2017 10:09:00 018 23:59:59 CLS Outpatient KEILY ARANGO DO S [facility] FEBRILE ILLNESS ,ABD PAIN [id number] 04/24/2017 13:51:00 017 23:59:59 CLS Outpatient KEILY ARANGO DO S [facility] RAD VERTIGO W/INTRA CTABLE VOMITING [id number] 03/12/2017 09:00:00 017 23:59:59 CLS Outpatient BLANCA ARANGO DOLINE S [facility] RAD DIZZINESS [id number] 03/01/2017 11:49:00 017 23:59:59 CLS Outpatient KYRA LIPSCOMB [facility] RAD VOMITING X 5 DA YS, ABD PAIN, R RENAL CALC [id number] 12/17/2016 12:12:00 017 23:59:59 CLS Outpatient KEILY ARANGO DO S [facility] RAD K59.00 [id number] 11/13/2016 11:30:00 017 14:25:00 DIS Outpatient LEE ALVAERZ MD [facility] ENDO NON-FUNCTIONING PEP TUB E [id number] 11/11/2016 05:39:00 017 14:19:00 DIS Outpatient LEE ALVAREZ MD [facility] PREOP NON-FUNCTIONING PEG TUB E [id number] 10/22/2016 11:05:00 017 23:59:59 CLS Outpatient KEILY ARANGO DO [facility] ALERGIC RHINITI S [id number] 09/26/2016 13:43:00 017 16:30:00 DIS Emergency LESLIE TORRES, JULITO Carr [facility] ER VOMITING, POSS KIDNEY S TONES [id number] 09/08/2016 08:36:00 017 23:59:59 CLS Outpatient KEILY ARANGO DO S [facility] R32,R35-8 [id number] 08/11/2016 13:41:00 017 23:59:59 CLS Outpatient KELIY ARANGO DO S [facility] LAB FEBRILE ILLNESS ,ABD PAIN [id number] 08/09/2016 14:55:00 017 18:30:00 DIS Emergency DINORAH TORRES, BRINA S [facility] ER VOMITING/UNABLE TO URIN ATE [id number] 06/22/2016 00:09:00 016 23:59:59 CLS Preadmit KEILY ARANGO DO S [facility] UTI [id number] 03/24/2016 11:57:00 016 00:01:00 DIS Outpatient KEILY ARANGO DO S [facility] UTI [id number] 05/19/2016 14:09:00 23:59:59 CLS Outpatient LEONOR HURLEYKEILY [facility] RAD LT FOOT PAIN [id number] 04/14/2016 06:34:00 23:59:59 CLS Outpatient LEE ALVAREZ MD [facility] PREOP NONFUNCTIONING PEG TUBE [id number] 03/27/2016 11:54:00 23:59:59 CLS Outpatient SANJIV CHÁVEZ [employer] OPERATOR [facility] LAB RASH [id number] 03/20/2016 12:51:00 23:59:59 CLS Outpatient SANJIV CHÁVEZ APRN [facility] URINARY TRACK I NFECTION [id number] 03/19/2016 11:28:00 23:59:59 CLS Outpatient SANJIV CHÁVEZ [employer] OPERATOR [facility] DYSUNIA,URINARY RETENTION [id number] 02/24/2016 09:48:00 23:59:59 CLS Outpatient SANJIV CHÁVEZ [employer] OPERATOR [facility] FATIGUE,GENERAL IZED ABD PAIN [id number] 09/21/2015 10:39:00 23:59:59 CLS Preadmit SANJIV CHÁVEZ APRN [facility] R OTITIS MEDIA [id number] 07/19/2015 10:06:00 23:59:59 CLS Outpatient MARY EM MD [facility] RAD ABDOMINAL PAIN - HISTORY OF KIDNEY STONES [id number] 07/18/2015 15:03:00 23:59:59 CLS Outpatient MARY EM MD [facility] LAB DYSURIA [id number] 06/19/2015 12:14:00 23:59:59 CLS Outpatient MARY EM MD [facility] LAB URINARY TRACT I NFECTION [id number] 04/12/2015 11:21:00 015 23:59:59 CLS Outpatient MARY EM MD [facility] LAB FEVER [id number] 04/03/2015 08:30:00 015 23:59:59 CLS Outpatient LEE ALVAREZ MD [facility] SDC MALFUNCTIONING GASTROST ADRIAN TUBE [id number] 02/17/2015 15:18:00 015 20:16:00 DIS Emergency SANDRA HURLEY, NUNO Carr [facility] ER VOMITING [id number] 02/08/2015 11:27:00 015 23:59:59 CLS Outpatient MARY EM MD [facility] LAB DYSURIA [id number] 01/15/2015 14:45:00 015 23:59:59 CLS Outpatient MARY EM MD [facility] LAB DYSURIA [id number] 01/02/2015 09:33:00 015 13:15:00 DIS Outpatient LEE ALVAREZ MD [facility] SDC MALFUNCTIONING TUBE [id number] 01/01/2015 06:40:00 015 23:59:59 CLS Outpatient LEE ALVAREZ MD [facility] PREOP MALFUNCTIONING TUBE [id number] 12/31/2014 11:18:00 015 23:59:59 CLS Outpatient MARY EM MD [facility] LAB DYSURIA [id number] 11/18/2014 10:21:00 015 12:58:00 DIS Emergency JULITO NELSON MD [facility] ER FEVER VOMITING [id number] 10/25/2014 11:30:00 015 23:59:59 CLS Outpatient MARY EM MD [facility] HH CEREBRAL PALSY, CONVULSIONS [id number] 09/26/2014 10:46:00 23:59:59 CLS Outpatient MARY EM MD [facility] LAB NEUTROPENIA,HYP OTALEMIA [id number] 08/11/2014 11:28:00 23:59:59 CLS Outpatient JULITO NELSON MD [facility] RAD DOWNS SYNDROME/CONGENIT AL [id number] 08/11/2014 09:12:00 11:52:00 DIS Emergency JULITO NELSON MD [facility] ER FEVER [id number] 07/23/2014 10:12:00 23:59:59 CLS Outpatient MARY EM MD [facility] RAD FEVER [id number] 04/06/2014 11:39:00 23:59:59 CLS Outpatient MARY EM MD [facility] LAB ABD PAIN [id number] 01/03/2014 11:29:00 014 00:01:00 DIS Outpatient MARY EM MD [facility] LAB EAR DRAINAGE [id number] 01/11/2014 16:23:00 014 23:59:59 CLS Outpatient MARY EM MD [facility] LAB ABD PAIN [id number] 01/09/2014 09:05:00 014 23:59:59 CLS Outpatient WEI TORRES, ENEDINA Ny [facility] CARD NAUSEA VOMITING [id number] 12/29/2013 16:04:00 014 23:59:59 CLS Outpatient KENNEY BENITEZ DO [facility] RAD FORIEGN BODY IN BODY PASSAGE [id number] 12/28/2013 18:14:00 014 23:59:59 CLS Outpatient KENNEY BENITEZ DO [facility] RAD FOREIGN BODY F/ U [id number] 12/24/2013 02:06:00 014 15:45:00 DIS Inpatient PRESTON TORRES, DANICA Hunter [facility] SURGICAL GI FOREIGN BODY;NAUSEA + VOMITING [id number] 12/04/2013 09:23:00 23:59:59 CLS Outpatient MARY EM MD [facility] LAB URINARY INCONTI NENCE [id number] 11/06/2013 11:12:00 23:59:59 CLS Outpatient MARY EM MD [facility] RAD NAUSEA/VOMITING [id number] 10/21/2013 12:27:00 14:05:00 DIS Emergency AURORA TORRES, RUFUS Trevino [facility] ER UTI [id number] 07/07/2013 11:08:00 00:01:00 DIS Outpatient MARY EM MD [facility] LAB POLYDIPSIA [id number] 09/19/2013 10:14:00 23:59:59 CLS Outpatient MARY EM MD [facility] LAB ABD PAIN [id number] 09/05/2013 08:30:00 23:59:59 CLS Outpatient ENEDINA CARVAJAL MD [facility] RAD REGURGITATION [id number] 08/17/2013 07:31:00 23:59:59 CLS Outpatient ENEDINA CARVAJAL MD [facility] RAD STONE RISK,PANC REATITIS [id number] 08/08/2013 14:17:00 23:59:59 CLS Outpatient MARY EM MD [facility] LAB RECURRENT UTI [id number] 08/04/2013 19:31:00 23:59:59 CLS Outpatient MARY EM MD [facility] LAB DIARRHEA [id number] 07/25/2013 14:41:00 23:59:59 CLS Outpatient MARY EM MD [facility] LAB DYSURIA [id number] 06/19/2013 10:55:00 23:59:59 CLS Outpatient MARY EM MD [facility] LAB DYSURIA [id number] 05/28/2013 17:41:00 19:29:00 DIS Emergency HODAN HERNANDEZ MD [facility] ER LOSS OF APPETIT E/VOMITING [id number] 04/29/2013 15:25:00 16:44:00 DIS Emergency RUFUS SIMON MD [facility] ER L LEG PAIN [id number] 03/31/2013 19:17:00 18:55:00 DIS Inpatient MARY EM MD [facility] 4TH ACUTE PANCREATITIS, PIRATION PNEUMONIA [id number] 03/07/2013 13:39:00 23:59:59 CLS Outpatient MARY EM MD [facility] RAD LET RENAL PELVI C ELARGEMENT,VOMITING [id number] 02/03/2013 11:00:00 23:59:59 CLS Outpatient MARY EM MD [facility] LAB DYSURIA [id number] 12/26/2012 08:27:00 10:19:00 DIS Emergency RUFUS SIMON MD [facility] ER SEIZURE [id number] 12/20/2012 11:34:00 23:59:59 CLS Outpatient MARY EM MD [facility] LAB UTI [id number] 11/23/2012 14:00:00 23:59:59 CLS Outpatient MARY EM MD [facility] RAD HX OF NEPHROLIT HIASIS WITH UTI [id number] 11/16/2012 09:51:00 23:59:59 CLS Outpatient MARY EM MD [facility] LAB RECURRENT INFEC TION [id number] 11/01/2012 11:45:00 013 23:59:59 CLS Outpatient MARY EM MD [facility] LAB DYSURIA,HX OF MEPHROLITHIASIS [id number] 11/10/2019 19:15:[address] Emergency CARLYN DESIR APRN [facility] ER TREY BUTTON CAME OUT [id number] 08/13/2015 07:32:00 Document Registration [id number] 07/23/2014 10:37:00 Document Registration [id number] 07/23/2014 10:37:00 Document Registration [id number] 04/04/2014 00:00:00 Document Registration [id number] 10/06/2013 00:00:00 Document Registration [id number] 12/27/2012 00:00:00 Document Registration [id number] 10/06/2012 00:00:00 Document Registration [id number] 09/27/2012 13:45:00 Document Registration [id number] 09/12/2012 09:08:00 Document Registration [id number] 09/08/2012 15:35:00 Document Registration [id number] 09/08/2012 13:58:00 Document Registration [id number] 08/26/2012 11:05:00 Document Registration [id number] 07/12/2012 14:04:00 Document Registration [id number] 07/07/2012 12:13:00 Document Registration [id number] 07/01/2012 12:44:00 Document Registration [id number] 06/03/2012 11:30:00 Document Registration [id number] 06/01/2012 00:28:00 Document Registration [id number] 04/23/2012 14:00:00 Document Registration [id number] 04/20/2012 05:39:00 Document Registration [id number] 04/19/2012 13:32:00 Document Registration [id number] 04/11/2012 12:36:00 Document Registration [id number] 2012 14:09:00 Document Registration [id number] 2012 09:14:00 Document Registration [id number] 04/05/2012 23:28:00 Document Registration [id number] 04/03/2012 11:54:00 Document Registration [id number] 08/23/2010 13:45:00 Document Registration [id number] 07/10/2019 12:09:35 07/10/2019 23:59:5 9 CLS Outpatient Keily Arango [id number] 01/15/2014 13:07:00 014 17:00:00 DIS Outpatient Fracisco TORRES, [facility] W.OPRA [id number] 12/24/2013 00:00:00 014 00:00:00 CAN Outpatient Tej Martin DO [facility] W.O8TN [id number] 04/25/2012 21:48:00 05/23/20 12 15:24:00 DIS Inpatient Nicko Redd DO [facility] on [place] [id number]
[2019-11-10] MEDS ORDERED: DIATRIZOATE MEGLUM/SODIUM 37% 120 ML (GASTROGRAFIN) RC ONE (20:00)
--- NOTE | 2019-11-10 20:09 | Diagnostic Imaging Report ---
INDICATION: PEG check. COMPARISON: None available. FINDINGS: Contrast was hand injected into the patient's indwelling percutaneous gastrostomy tube and the contrast opacifies the gastric lumen. The balloon is insufflated within the gastric lumen as well. There is a 22 mm radiopaque foreign body within the right lower quadrant that has the appearance of a coin. IMPRESSION: 1. PEG tube has tip and balloon within the gastric lumen. 2. There is a coin-like radiopaque foreign body within the right lower quadrant of the abdomen and likely within the colon. Dictated by: Dictated on workstation # [id number]
== END 2019-11-10 20:00 | disposition home or self-care (01) ==
LOC: EDUNIT# 19:13 → ER 19:15
DX: K94.23 Gastrostomy malfunction (principal); G40.909 Epilepsy, unspecified, not intractable, without status epilepticus; F89 Unspecified disorder of psychological development; Z82.49 Family history of ischemic heart disease and other diseases of the circulatory system; Z93.6 Other artificial openings of urinary tract status
CPT/HCPCS: 49465

== ENCOUNTER → 2019-11-17 | Outpatient (CLI) | payer MEDICAID ==
[~2019-11-17] MED LIST changes: +LIPA1CAP70; +NF-CIPDEC
--- NOTE | 2019-11-17 17:26 | Diagnostic Imaging Report ---
INDICATION: Ingested foreign body. TIME OF EXAM: 3:04 p.m. COMPARISON: Correlation is made with prior radiograph from 11/10/2019. FINDINGS: Previously noted rounded metallic foreign body is again noted and now is in the lower midline of the abdomen at approximately the level of L5. This could be in the region of the sigmoid colon. No free air or bowel obstruction is seen. There is moderate stool in the right colon. There are surgical clips in the right upper quadrant. Patient does have a PEG tube. IMPRESSION: Rounded metallic coin foreign body in lower midline abdomen, as described. Dictated by: Dictated on workstation # [id number]
== END ==
LOC: RAD 14:43
PROVIDERS: ATTEND Family Medicine
DX: T18.4XXA Foreign body in colon, initial encounter (principal)
CPT/HCPCS: 74019

== ENCOUNTER → 2020-03-13 | Outpatient (CLI) | payer MEDICAID | LOC: LABNPT 06:07 | PROVIDERS: ATTEND Family Medicine | DX: J02.9 Acute pharyngitis, unspecified (principal); Z20.828 Contact with and (suspected) exposure to other viral communicable diseases | CPT/HCPCS: 87635 ==

== ENCOUNTER 2020-03-15 11:14 | Outpatient (CLI) | payer MEDICAID ==
[~2020-03-15] VITALS: Ht 134.6 cm; Wt 41.8 kg
[2020-03-15 11:15] VITALS: BP 139/96
[2020-03-15 11:54] LABS: BASOPHILS % (AUTO) 0 % (0-10); EOSINOPHILS # (AUTO) 0.1 10^3/uL (0.0-0.3); EOSINOPHILS % (AUTO) 2 % (0-10); HEMATOCRIT 38 % (35-52); HEMOGLOBIN 12.5 G/DL (11.5-16.0); LYMPHOCYTES # (AUTO) 1.8 X 10^3 (1.0-4.0); LYMPHOCYTES % (AUTO) 43 % (12-44); MEAN CORPUSCULAR HEMOGLOBIN 32 PG (25-34); MEAN CORPUSCULAR HGB CONC 33 G/DL (32-36); MEAN CORPUSCULAR VOLUME 95 FL (80-99); MEAN PLATELET VOLUME 8.8 FL (7.4-10.4); MONOCYTES # (AUTO) 0.6 X 10^3 (0.0-1.0); MONOCYTES % (AUTO) 15 % (0-12); NEUTROPHILS # (AUTO) 1.6 X 10^3 (1.8-7.8); NEUTROPHILS % (AUTO) 40 % (42-75); PLATELET COUNT 274 10^3/uL (130-400); WHITE BLOOD COUNT 4.1 10^3/uL (4.3-11.0)
[2020-03-15 11:54] LABS: BILIRUBIN,URINE NEGATIVE (NEGATIVE); CLARITY,URINE CLEAR; COLOR,URINE YELLOW; GLUCOSE, URINE (UA) NEGATIVE (NEGATIVE); KETONES,URINE NEGATIVE (NEGATIVE); LEUKOCYTE ESTERASE ,URINE NEGATIVE (NEGATIVE); NITRITE,URINE NEGATIVE (NEGATIVE); PH,URINE 7.5 (5-9); PROTEIN,URINE NEGATIVE (NEGATIVE)
[2020-03-15 12:03] LABS: AMORPHOUS SEDIMENT,UR LARGE AMOR URATES /LPF; BACTERIA,URINE TRACE /HPF; WBC,URINE 0-2 /HPF
[2020-03-15 12:07] LABS: ALBUMIN 4.1 GM/DL (3.2-4.5); CHLORIDE 107 MMOL/L (98-107); POTASSIUM 3.8 MMOL/L (3.6-5.0); SODIUM 142 MMOL/L (135-145)
[2020-03-15 12:10] LABS: GLUCOSE 102 MG/DL (70-105); TOTAL PROTEIN 6.6 GM/DL (6.4-8.2)
[2020-03-15 12:11] LABS: CARBON DIOXIDE 25 MMOL/L (21-32)
[2020-03-15 12:12] LABS: BILIRUBIN,TOTAL 0.1 MG/DL (0.1-1.0)
[2020-03-15 12:13] LABS: ALKALINE PHOSPHATASE 54 U/L (40-136); CREATININE SERUM 0.68 MG/DL (0.60-1.30); GFR ESTIMATED > 60
[2020-03-15 12:14] LABS: BUN/CREATININE RATIO 16
[2020-03-15 12:16] LABS: ALANINE AMINOTRANSFERASE 14 U/L (0-55)
== END 2020-03-15 11:48 | disposition home or self-care (01) ==
LOC: SDC 11:14
PROVIDERS: ATTEND Family Medicine
DX: J02.9 Acute pharyngitis, unspecified (principal)
CPT/HCPCS: 36415; 80053; 81000; 85025

== ENCOUNTER → 2020-04-17 | Outpatient (CLI) | payer MEDICAID ==
[~2020-04-17] MED LIST changes: +HOLD METFORMIN - RECEIVED CONTRAST 20 ML VIAL IV SCH; +IOHEXOL 350 MG/ML 100 ML (OMNIPAQUE 350) VIAL IV ONE; +NS 100 ML (IVPB) BAG IV ONE; -PANT40TA3 PO; +PANT40TA52 PO
--- NOTE | 2020-04-17 19:02 | Diagnostic Imaging Report ---
INDICATION: Refusing to eat or drink with vomiting for the last day. EXAMINATION: CT abdomen and pelvis with contrast, 04/17/2020. FINDINGS: Lung bases appear clear. The liver is grossly unremarkable. The spleen, pancreas and adrenal glands are unremarkable. Gallbladder appears surgically absent. There is a large cystic lesion along the anterior border of the right kidney simple in appearance. Kidney is otherwise unremarkable. There is a feeding tube along the anterior upper abdomen. There is motion artifact along the abdomen and pelvis limiting evaluation of the loops of bowel. There do appear to be some changes of constipation throughout the ascending colon and cecum. No definite inflammatory change is seen about the loops of bowel. Portions of what is likely the appendix unremarkable although the entire appendix is not well characterized due to the motion artifact. There is cystic change in the left adnexa, likely ovarian. Minimal free fluid in the pelvis, likely physiologic. No free air is appreciated. No acute osseous abnormality is seen. Dysplastic change noted in the right hip. There is osteopenia and scoliotic deformity of the spine. IMPRESSION: 1. Limited evaluation due to motion with findings of constipation throughout the right colon. Visualized appendix unremarkable but the entire appendix is not well characterized due to the motion artifact. 2. Cystic changes in the left adnexa, likely physiologic, with minimal free fluid in the pelvis. Dictated by: Dictated on workstation # [id number]
== END ==
LOC: RAD 16:59
PROVIDERS: ATTEND Family Medicine
DX: K59.00 Constipation, unspecified (principal); N83.8 Other noninflammatory disorders of ovary, fallopian tube and broad ligament; R11.10 Vomiting, unspecified; Z20.828 Contact with and (suspected) exposure to other viral communicable diseases
CPT/HCPCS: 74177

== ENCOUNTER → 2020-05-17 | Outpatient (CLI) | payer MEDICAID ==
[~2020-05-17] MED LIST changes: -HOLD METFORMIN - RECEIVED CONTRAST 20 ML VIAL IV SCH; -IOHEXOL 350 MG/ML 100 ML (OMNIPAQUE 350) VIAL IV ONE; -NS 100 ML (IVPB) BAG IV ONE
== END ==
LOC: LABNPT 05:58
PROVIDERS: ATTEND Family Medicine
DX: R11.2 Nausea with vomiting, unspecified (principal); R63.0 Anorexia; R53.83 Other fatigue; Z20.828 Contact with and (suspected) exposure to other viral communicable diseases
CPT/HCPCS: 87635

== ENCOUNTER 2020-08-12 06:02 | Outpatient (RCR) | payer MEDICAID ==
[~2020-08-12] VITALS: Ht 134.6 cm; Wt 41.8 kg
[~2020-08-12 06:02] MED LIST changes: +CRAN1CAP5 PO; -LIPA1CAP70; +LIPA1CAP70 PO; -MECL-172 PO; +MECL-173 PO; -MONT10TA26 PO; +MONT10TA97 PO; +MULT-1136 GT; +NITR25OR3 GT; -NITR25OR6 GT; +[UNRECOGNIZED DRUG - CODE] PO
== END 2020-08-13 10:55 | disposition home or self-care (01) ==
LOC: PREOP 06:02
PROVIDERS: ATTEND Surgery
DX: Z01.812 Encounter for preprocedural laboratory examination (principal); L98.9 Disorder of the skin and subcutaneous tissue, unspecified; Z87.11 Personal history of peptic ulcer disease; Z20.822 Contact with and (suspected) exposure to COVID-19
CPT/HCPCS: 87635

== ENCOUNTER 2020-08-15 06:26 | Day surgery (SDC) | payer MEDICAID ==
[2020-08-15] VITALS (9 sets, daily range): BP systolic 120–147; BP diastolic 79–89
[~2020-08-15] VITALS: Ht 134.6 cm; Wt 41.8 kg
[~2020-08-15 06:26] MED LIST changes: +MONT10TA32 PO; -MONT10TA97 PO; +SERT-413 PO; -SERT50TA9 PO
[2020-08-15] MEDS ORDERED: LACTATED RINGERS 1,000 ML IV PRN (06:45)
[2020-08-15] MEDS ORDERED: SUCCINYLCHOLINE INJ 100 MG/5 ML SYR/VIAL ONE (07:01)
[2020-08-15] MEDS ORDERED: LIDOCAINE PF 2% 5 ML (XYLOCAINE) VIAL ONE (07:01)
[2020-08-15] MEDS ORDERED: ONDANSETRON 4 MG/2 ML (SDV) Z0FRAN ONE (07:01)
[2020-08-15] MEDS ORDERED: proPOfol 200 MG/20 ML (DIPRIVAN) VIAL IV ONE (07:01)
[2020-08-15] MEDS ORDERED: fentaNYL INJECTION 100 MCG/2 ML AMP ONE (07:01)
[2020-08-15] MEDS ORDERED: MIDAZOLAM 2 MG/2 ML (VERSED) VIAL ONE (07:02)
[2020-08-15] MEDS ORDERED: LIDOCAINE/EPI 1%-1:100,000 (XYLOCAINE) 50 ML ONE (07:06)
--- NOTE | 2020-08-15 08:01 | Progress Note-Pre Operative ---
Pre-Operative Progress Note H&P Reviewed The H&P was reviewed, patient examined and no changes noted. Date Seen by Provider: Aug 15, 2020 Time Seen by Provider: 08:00 Date H&P Reviewed: Aug 15, 2020 Time H&P Reviewed: 08:00 Pre-Operative Diagnosis: skin lesions, n/v hx ulcers ELLYN FRANKS DO Aug 15, 2020 08:01
[2020-08-15] MEDS ORDERED: ceFAZolin INJECTION 1,000 MG ONE (08:09)
[2020-08-15] MEDS ORDERED: ROCURONIUM 10 MG/ML 5 ML SYRINGE IV ONE (08:15)
[2020-08-15] MEDS ORDERED: SEVOFLURANE (ULTANE) 15 ML INHAL SOLN ONE ×4 (08:15→08:41)
[2020-08-15] MEDS ORDERED: NEO/POLY/BAC (NEOSPORIN) OINT 15 GM TUBE ONE (08:29)
[2020-08-15] MEDS ORDERED: PHENYLEPHRINE 100 MCG/ML 10 ML (ANESTHESIA) SYR ONE (09:14)
[2020-08-15] MEDS ORDERED: ONDANSETRON 4 MG/2 ML (SDV) Z0FRAN IVP PRN (09:15)
[2020-08-15] MEDS ORDERED: morphine INJ 10 MG/ML 1ML (SYR OR VIAL) IVP ONE (09:15)
--- NOTE | 2020-08-15 09:15 | Discharge Inst-Simple/Standard ---
Discharge Inst-Standard Patient Instructions/Follow Up Plan of Care/Instructions/FU: 12-14 days Len (selvin) Activity as Tolerated: Yes Discharge Diet: Regular Diet Other Inst to Patient Follow up Appt: Make appointment [id number] days Len. Instructions:. No strenuous activity. May shower in 24 hours, no tub bath or soaking. Use incentive spirometer at home as directed. No Smoking Skin/Wound Care: Keep incisions clean and dry. Symptoms to Report: Appetite Changes, Extremity Discoloration, Numbness/Tingling, Swelling Increased, Bleeding Excessive, Eyesight Changes, Pain Increased, Urine Color Change, Constipation(Persistent), Fever over 101 degree F, Pain/Pressure in chest, Urinating Difficulty, Cough Up/Vomit Blood, Heart Beat Irreg/Pounding, Pain/Pressure in jaw, Vaginal Bleeding Increase, Cramps in feet or legs, Lightheadedness, Pain/Pressure in shoulder, Diarrhea(Persistent), Memory Changes Suddenly, Questions/Concerns, Weight gain consecutive days, Dizziness/Fainting, Nausea/Vomiting, Shortness of Breath, Weight gain over 2 pounds If questions or concerns contact your physician Or seek help at emergency department. ELLYN FRANKS DO Aug 15, 2020 09:15
--- NOTE | 2020-08-15 09:17 | Progress Note-Post Operative ---
Post-Operative Progess Note Surgeon (s)/Flame Cutting Supervisor (s) Surgeon ELLYN FRANKS DO Flame Cutting Supervisor: na Pre-Operative Diagnosis skin lesions, n/v hx ulcers Post-Operative Diagnosis skin lesions, hiatal hernia, esophagus questionable healing ulcer Procedure & Operative Findings Date of Procedure 08/15/20 Procedure Performed/Findings exicision multiple skin lesions, egd c biopsies Anesthesia Type general Estimated Blood Loss Estimated blood loss (mL): minimal Specimens/Packing Specimens Removed skin lesions, egd c biopsies ELLYN FRANKS DO Aug 15, 2020 09:17
[2020-08-15] MEDS ORDERED: ceFAZolin INJECTION 1,000 MG VIAL IV ONE (09:30)
[2020-08-15] MEDS ORDERED: ONDANSETRON 4 MG/2 ML (SDV) Z0FRAN IVP ONE (10:00)
[2020-08-15] MEDS ORDERED: HYDROcodone/APAP 7.5MG-325 MG/15 ML (LORTAB) UDC PO PRN (10:15)
--- NOTE | 2020-08-15 18:35 | OPERATIVE REPORT ---
DATE OF SERVICE: 08/15/2020 PREOPERATIVE DIAGNOSES: Multiple skin lesions, nausea, vomiting, history of peptic ulcer disease. POSTOPERATIVE DIAGNOSES: Skin lesions, hiatal hernia and possible healing esophageal ulcer. PROCEDURE: Excision of right leg skin lesion 2 x 3.6 cm, excision of left upper quadrant abdominal skin lesion 1.2 x 1.8 cm, excision of right anterior chest 0.6 x 1 cm, excision of right middle chest skin lesion 0.7 cm x 1.4 cm, excision of right posterior chest skin lesion 0.8 x 1.5 cm, excision of right upper arm skin lesion 1 x 2 cm, excision of right upper shoulder skin lesion 0.8 x 1.5 cm, excision of lower back skin lesion 1.1 x 2.1 cm, excision of left upper back skin lesion 0.8 x 1.4 cm and EGD with biopsies. SURGEON: Kolton Harrington DO ANESTHESIA: General. ESTIMATED BLOOD LOSS: Minimal. COMPLICATIONS: None. INDICATIONS: The patient is a 30-year-old female with multiple raised skin lesions. Her family and caregivers will have difficulty with getting on clothing and causes them to break and cause bleeding. They wished to have these raised lesions removed due to when this occurs, it seems to cause her some, slight discomfort as well. The patient also having occasional nausea and vomiting. She has a history of peptic ulcer disease, wished to proceed with EGD for further evaluation as well. Consent was signed in the chart. DESCRIPTION OF PROCEDURE: The patient was taken to the operating suite. She was prepped and draped in a sterile fashion around all the lesions. Local anesthetic was infiltrated around the lesions. Elliptical incisions were made, removing skin and subcutaneous tissues. The skin was then closed using 3-0 nylon. There were total of 9 lesions removed. Please see procedure for dimensions above. After lesions were removed, the skin was washed and dried and sterile bandages were applied. EGD was then performed. Scope was inserted in mouth, down the esophagus, stomach and into the duodenum without difficulty. There were no polyps, masses or ulcerations within the duodenum. Scope was slowly retracted back into the stomach where it was further insufflated. The Josias-Camilo button balloon was visualized in a good location. No evidence of any polyps, masses or ulcerations. A biopsy of the antrum was obtained. Scope was then slowly retracted back and retroflexed. There we noted a small hiatal hernia, no other pathology noted. Scope was returned to its normal position, slowly withdrawn into the distal esophagus, possibly a healing esophageal ulcer present. A biopsy was obtained, and the scope was then slowly retracted back noting no other pathology until completely removed. The patient tolerated procedure well without any complications, taken to recovery room in stable condition. RECOMMENDATIONS: The patient will have sutures removed in approximately 12 to 14 days. We will continue on current medications. We will await biopsy results. Job ID: [id number] DocumentID: [id number] Dictated Date: 08/15/2020 16:53:45 Cso Date: 08/15/2020 18:34:30 Dictated By: DO GLENNY MIDDLETON
--- NOTE | 2020-08-21 14:44 | Anesthesia-General Post-Op ---
General Significant Intra-Op Events Notes Late entry: 08/15/20 @1015 Patient Condition Mental Status/LOC: Same as Preop Cardiovascular: Satisfactory Nausea/Vomiting: Absent Respiratory: Satisfactory Pain: Controlled Complications: Absent Post Op Complications Complications None Follow Up Care/Instructions Patient Instructions None needed. Anesthesia/Patient Condition Patient Condition Patient is doing well, no complaints, stable vital signs, no apparent adverse anesthesia problems. No complications reported per nursing. SERENA,BLANCA Hunter CRNA Aug 21, 2020 14:44
== END 2020-08-15 10:55 | disposition home or self-care (01) ==
LOC: SDC 06:26
PROVIDERS: ATTEND Surgery
DX: K44.9 Diaphragmatic hernia without obstruction or gangrene (principal); D22.71 Melanocytic nevi of right lower limb, including hip; D22.5 Melanocytic nevi of trunk; D22.61 Melanocytic nevi of right upper limb, including shoulder; K21.00 Gastro-esophageal reflux disease with esophagitis, without bleeding; K21.9 Gastro-esophageal reflux disease without esophagitis; Z79.899 Other long term (current) drug therapy; Z87.11 Personal history of peptic ulcer disease; Z83.3 Family history of diabetes mellitus
CPT/HCPCS: 87081; 88305

== ENCOUNTER 2020-09-03 10:02 | Outpatient (CLI) | payer MEDICAID ==
[~2020-09-03] VITALS: Ht 134.6 cm; Wt 40.9 kg
[~2020-09-03 10:02] MED LIST changes: -MECL-173 PO; +MECL-215 PO
[2020-09-03 10:25] VITALS: BP 146/107
[2020-09-03 11:00] LABS: BILIRUBIN,URINE NEGATIVE (NEGATIVE); CLARITY,URINE CLOUDY; COLOR,URINE YELLOW; GLUCOSE, URINE (UA) NEGATIVE (NEGATIVE); KETONES,URINE NEGATIVE (NEGATIVE); LEUKOCYTE ESTERASE ,URINE TRACE (NEGATIVE); NITRITE,URINE POSITIVE (NEGATIVE); PROTEIN,URINE NEGATIVE (NEGATIVE)
[2020-09-03 11:07] LABS: BACTERIA,URINE MODERATE /HPF; SQUAMOUS EPITHELIAL CELL,UR RARE /HPF
[2020-09-03 11:08] LABS: AMORPHOUS SEDIMENT,UR MOD AMOR PHOSPHATE /LPF
== END 2020-09-03 10:25 | disposition home or self-care (01) ==
LOC: SDC 10:02
PROVIDERS: ATTEND Family Medicine
DX: N39.0 Urinary tract infection, site not specified (principal)
CPT/HCPCS: 81000; 87077; 87088

== ENCOUNTER 2020-10-02 20:13 | Emergency (ER) | payer MEDICAID ==
[~2020-10-02] VITALS: Ht 134.6 cm; Wt 39.9 kg
--- NOTE | 2020-10-02 22:30 | ED GI ---
General Chief Complaint: Abdominal/GI Problems Stated Complaint: POSS SWALLOWED OBJECT / CONSTIPATION Nursing Triage Note: no BM x 5 days, no results from fleets. Increased urinary frequency, digital rectal exam done by caregiver to check for impaction and "felt something weird in rectum" Called Dr. Galvez and ordered to come to ER Sepsis Screen: No Definite Risk Source of Information: Family Exam Limitations: Physical Impairments History of Present Illness Date Seen by Provider: Oct 02, 2020 Time Seen by Provider: 22:10 Initial Comments Patient is a 30-year-old female with pervasive developmental abnormality who presents with mom for a chief complaint of constipation no bowel movement in 3 days. Mom states that she had had a normal bowel movement last Wednesday a week ago and subsequently was given an enema 3 days ago on Wednesday but has had no output since. Normally she has a bowel movement every day to every other day. Mom states the bowel movement last Wednesday after the enema was green and watery. She has not had any vomiting. Has not appeared to be in any distress. No recent fevers, chills or other illnesses. Mom states that she did a rectal exam to evaluate and see if she was impacted and felt like something was in the rectum that might have been a foreign body. All other review of systems reviewed and negative except as stated. Timing/Duration: 1 Week Allergies and Home Medications Allergies Coded Allergies: No Known Drug Allergies (Verified , 07/13/18) Home Medications Cetirizine HCl 10 Mg Tab.chew, 10 MG PO DAILY, (Reported) Diazepam 5 Mg Tablet, 2.5 MG PO 1700, (Reported) Lactobacillus Acidophilus 1 Each Capsule, 1 EACH PO DAILY, (Reported) Lactulose 10 Gm/15 Ml Solution, 10 GM PO BID, (Reported) Lipase/Protease/Amylase 1 Each Capsule.dr, 1 CAP PO with meals, (Reported) Magnesium Hydroxide 400 Mg/5 Ml Oral.susp, 400 MG PO EVERY OTHER DAY, (Reported) Meclizine HCl 12.5 Mg Tablet, PO TID, (Reported) Montelukast Sodium 10 Mg Tablet, 10 MG PO DAILY, (Reported) Multivitamin 1 Each Tablet, 1 EACH GT DAILY, (Reported) Ondansetron HCl 4 Mg/5 Ml Solution, 4 MG PO Q4H PRN for NAUSEA/VOMITING Prescribed by: HODAN GRIMALDO on 05/03/191918 Oxcarbazepine 300 Mg/5 Ml Oral.susp, 13.5 ML GT DAILY, (Reported) Oxcarbazepine 300 Mg/5 Ml Oral.susp, 15 ML GT HS, (Reported) Pantoprazole Sodium 40 Mg Tablet.dr, 40 MG PO DAILY, (Reported) Sertraline HCl 50 Mg Tablet, 50 MG PO HS, (Reported) Patient Home Medication List Home Medication List Reviewed: Yes Review of Systems Review of Systems Constitutional: see HPI Other Comments Review of systems limited from the patient secondary to her pervasive developmental disorder. Review of systems was obtained from mom and was negative except as stated in the HPI. All Other Systems Reviewed Negative Unless Noted: Yes Past Mdnpdqg-Ejpjcf-Tliifb Hx Patient Social History 2nd Hand Smoke Exposure: No Recent Infectious Disease Expo: No Recent Hopitalizations: No Immunizations Up To Date Tetanus Booster (TDap): Less than 5yrs Date of Pneumonia Vaccine: Dec 27, 2013 Date of Influenza Vaccine: Apr 04, 2020 Seasonal Allergies Seasonal Allergies: Yes Past Medical History Surgeries: Yes (NEPHROSTOMY, G-TUBE, SALIVARY GLAND, BMT'S,EGD'S ) Ear Surgery, Eye Surgery, Gallbladder, Orthopedic Respiratory: Yes Pneumonia Currently Using CPAP: No Currently Using BIPAP: No Cardiac: No Neurological: Yes ( MR) Developmental Disorder, Seizure Disorder, Vertigo Reproductive Disorders: No (RECIEVES SHOTS EVERY 3 MONTHS) Genitourinary: Yes Kidney Stones, UTI-Chronic Gastrointestinal: Yes (PEG tube) Pancreatitis, Ulcer Musculoskeletal: Yes (LOW MUSCLE TONE, POINTS TOES DOWN, MULTIPLE HIP DISL OCATIONS) Endocrine: No HEENT: Yes Chronic Ear Infection Cancer: No Psychosocial: Yes Integumentary: No Blood Disorders: No Adverse Reaction/Blood Tranf: No Family Medical History Cancer Dementia Family history: Allergy Family history: Arthritis Family history: Asthma Family history: Breast disease Family history: Cardiovascular disease Family history: Diabetes mellitus Family history: Gastrointestinal disease Family history: Hypertension Family history: Osteoporosis Hearing loss Heart disease Stroke No Family History of: Abdominal aortic aneurysm Hugo's disease Alcoholism Aphasia Cancer of colon Cataract Chest pain Congenital heart disease Congestive heart failure Cystic fibrosis Dysphagia Family history: Alzheimer's disease Family history: Coronary thrombosis Family history: Glaucoma Family history: Thyroid disorder Headache Hereditary disease History of - anemia History of - disorder History of - respiratory disease History of drug abuse Human immunodeficiency virus (HIV) seropositivity Hypercholesterolemia Infertile Kidney disease Malignant neoplasm of lung Myocardial infarction Parkinson's disease Prostate cancer Psychotic disorder Seizure disorder Tuberculosis Visual impairment Physical Exam Vital Signs Vital Signs - First Documented 10/02/20 20:38 Temp 35.6 Pulse 77 Resp 18 B/P (MAP) 113/72 (86) Pulse Ox 100 O2 Delivery Room Air Capillary Refill : Less Than 3 Seconds Height/Weight/BMI Height: 4'8.00" Weight: 91lbs. 0.0oz. [id number]; 22.00 BMI Method:Stated General Appearance: WD/WN, no apparent distress HEENT: other (Drooling and appears well-hydrated) Respiratory: no respiratory distress, no accessory muscle use Cardiovascular: regular rate, rhythm Gastrointestinal: non tender, soft, other (PEG tube in place) Rectal: normal exam, other (Small pebbly stool felt in the rectal vault, no foreign object is identified on digital rectal exam, no bleeding is present) Extremities: normal range of motion, normal inspection Back: normal inspection Neurologic/Psychiatric: other (At developmental/neurologic baseline per mom) Skin: normal color, warm/dry Progress/Results/Core Measures Results/Orders Vital Signs/I&O 10/02/20 20:38 Temp 35.6 Pulse 77 Resp 18 B/P (MAP) 113/72 (86) Pulse Ox 100 O2 Delivery Room Air Blood Pressure Mean: 86 Diagnostic Imaging Diagonstic Imaging: Xray Plain Films/CT/US/NM/MRI: abdomen Comments KUB demonstrates significant amount of stool throughout the abdomen. She has clips in the right upper quadrant consistent with prior cholecystectomy. There are some lucencies in the left upper quadrant, the patient has had previous kidney instrumentation on the left. No large foreign bodies are noted in the colon. No suspicion for bowel obstruction on this film. Departure Impression Primary Impression: Constipation Qualified Codes: K59.00 - Constipation, unspecified Disposition: 01 HOME, SELF-CARE Condition: Stable Departure-Patient Inst. Decision time for Depature: 22:28 Referrals: VIJAY GALVEZ DO (PCP/Family) Primary Care Physician Patient Instructions: Constipation, Adult (DC) Add. Discharge Instructions: Start MiraLAX daily to help with bowel movements. Increase her water through her PEG tube for the next couple of days. You may try another enema to stimulate more stool. Return to the emergency room for reevaluation if she develops fever, starts vomiting or there are any other emergent concerning complaints. Copy Copies To 1: VIJAY GALVEZ KATHRYN M MD Oct 02, 2020 22:29
[2020-10-02 22:33] VITALS: BP 111/71
--- NOTE | 2020-10-03 07:21 | Diagnostic Imaging Report ---
INDICATION: Constipation. FINDINGS: Lung bases are clear. Bowel gas pattern is nonspecific. PEG tube is in place. Gallbladder surgically absent. There does appear to be a moderate amount of retained fecal material likely reflects some degree of constipation. IMPRESSION: Moderate amount of retained fecal material likely reflective of some degree of constipation otherwise unremarkable. Dictated by: Dictated on workstation # [id number]
== END 2020-10-02 22:33 | disposition home or self-care (01) ==
LOC: EDUNIT# 20:13 → ER 20:16
DX: K59.00 Constipation, unspecified (principal); F84.9 Pervasive developmental disorder, unspecified; G40.909 Epilepsy, unspecified, not intractable, without status epilepticus; Z87.01 Personal history of pneumonia (recurrent); Z93.1 Gastrostomy status
CPT/HCPCS: 74018

== ENCOUNTER → 2021-08-21 | Outpatient (CLI) | payer MEDICAID ==
[~2021-08-21] MED LIST changes: -CETI10TA23 PO; +CETI10TA24 PO; +MONT-40 PO; -MONT10TA32 PO; -NITR25OR3 GT; +NITR25OR7 GT
--- NOTE | 2021-08-21 10:32 | Diagnostic Imaging Report ---
CLINICAL INDICATION: R94.6. Abnormal results of thyroid function studies. EXAM: Ultrasound of the thyroid gland. COMPARISONS: None. FINDINGS: THYROID NODULES: There is an 8 mm x 5 mm x 6 mm hypoechoic solid nodule involving the posterior midportion of the right thyroid lobe. This nodule is wider than is tall and demonstrates some central Doppler flow. There are no calcifications associated with this. There are some areas which are slightly ill-defined. THYROID GLAND: Besides the thyroid nodule, the thyroid gland has normal size, shape and echogenicity. The right lobe measures 5.1 cm x 1.2 cm x 1.3 cm and the left lobe measures 4.5 cm x 0.9 cm x 1.7 cm in their three dimensions. ISTHMUS: The isthmus is unremarkable and measures 1 mm in thickness. IMPRESSION: 1: There is an 8 mm hypoechoic nodule involving the posterior midportion right thyroid lobe. TI-RADS 4. Follow-up thyroid ultrasound in 6 months is suggested to evaluate for stability. 2: Otherwise, the remainder of the thyroid gland is unremarkable Dictated by: Dictated on workstation # [id number]
== END ==
LOC: RAD 09:15
PROVIDERS: ATTEND Family Medicine
DX: E04.1 Nontoxic single thyroid nodule (principal)
CPT/HCPCS: 76536

== ENCOUNTER → 2021-10-31 | Outpatient (CLI) | payer MEDICAID ==
[2021-10-31 10:00] VITALS: BP 108/82
[2021-10-31 10:22] LABS: BILIRUBIN,URINE NEGATIVE (NEGATIVE); CLARITY,URINE SL CLOUDY; COLOR,URINE YELLOW; GLUCOSE, URINE (UA) NEGATIVE (NEGATIVE); KETONES,URINE NEGATIVE (NEGATIVE); LEUKOCYTE ESTERASE ,URINE NEGATIVE (NEGATIVE); NITRITE,URINE NEGATIVE (NEGATIVE); PROTEIN,URINE NEGATIVE (NEGATIVE)
[2021-10-31 11:04] LABS: AMORPHOUS SEDIMENT,UR LARGE AMOR PHOSPHATE /LPF; BACTERIA,URINE FEW /HPF; SQUAMOUS EPITHELIAL CELL,UR 0-2 /HPF; WBC,URINE 0-2 /HPF
== END ==
LOC: SDC 09:53
PROVIDERS: ATTEND Family Medicine
DX: R32 Unspecified urinary incontinence (principal); R56.9 Unspecified convulsions
CPT/HCPCS: 81000

== ENCOUNTER → 2022-03-31 | Outpatient (CLI) | payer MEDICAID ==
--- NOTE | 2022-03-31 16:03 | Diagnostic Imaging Report ---
INDICATION: Ankle pain. EXAMINATION: Left ankle, 3 views, on 03/31/2022. COMPARISON: 08/11/2014. FINDINGS: There is diffuse osteopenia. The ankle mortise and talar dome are unremarkable. There are post operative changes with screws along the tibiotalar joint and talonavicular joint spaces. The orthopedic hardware appears intact. There is partial fusion along the talonavicular joint with incomplete fusion noted. Fusion within the posterior subtalar joint is noted. No acute fracture is appreciated. IMPRESSION: Post operative changes as above with no superimposed acute fractures. Dictated by: Dictated on workstation # [id number]
--- NOTE | 2022-03-31 18:03 | Diagnostic Imaging Report ---
INDICATION: Abdominal pain, bloating COMPARISON: 10/02/2020 TECHNIQUE: Single radiograph of the abdomen dated 03/31/2022. FINDINGS: Surgical clips are seen overlying the right upper abdomen, stable. Catheter likely related to a percutaneous gastrostomy catheter is again noted overlying the left upper abdomen. An additional surgical clip is noted overlying the right mid abdomen, which appears new from the prior examination. Moderate amount of stool is identified throughout the colon, including extending into the lower pelvis. Stool load has increased since the prior examination. No abnormally dilated loops of small bowel. No differential air-fluid levels. No suspicious calcifications overlying the renal shadows. No acute osseous abnormality. IMPRESSION: Moderate amount of stool throughout the colon, particularly the ascending colon. This likely relates to constipation. Dictated by: Dictated on workstation # [id number]
== END ==
LOC: RAD 09:53
PROVIDERS: ATTEND Family Medicine
DX: R10.9 Unspecified abdominal pain (principal); R14.0 Abdominal distension (gaseous); M25.571 Pain in right ankle and joints of right foot
CPT/HCPCS: 73610; 74018

== ENCOUNTER 2022-06-29 11:21 | Emergency (ER) | payer MEDICAID ==
[~2022-06-29] VITALS: Ht 137 cm; Wt 43.0 kg
[2022-06-29] MEDS ORDERED: NS IV 1000 ML 1,000 ML IV SCH (12:15)
[2022-06-29 12:20] LABS: BASOPHILS % (AUTO) 0 % (0-10); EOSINOPHILS # (AUTO) 0.2 10^3/uL (0.0-0.3); EOSINOPHILS % (AUTO) 6 % (0-10); HEMATOCRIT 30 % (35-52); HEMOGLOBIN 9.2 g/dL (11.5-16.0); LYMPHOCYTES # (AUTO) 1.3 10^3/uL (1.0-4.0); LYMPHOCYTES % (AUTO) 32 % (12-44); MEAN CORPUSCULAR HEMOGLOBIN 25 pg (25-34); MEAN CORPUSCULAR HGB CONC 31 g/dL (32-36); MEAN CORPUSCULAR VOLUME 80 fL (80-99); MEAN PLATELET VOLUME 9.5 fL (9.0-12.2); MONOCYTES # (AUTO) 0.5 10^3/uL (0.0-1.0); MONOCYTES % (AUTO) 13 % (0-12); NEUTROPHILS % (AUTO) 49 % (42-75); PLATELET COUNT 354 10^3/uL (130-400)
[2022-06-29 12:29] LABS: BILIRUBIN,URINE NEGATIVE (NEGATIVE); CLARITY,URINE SL CLOUDY; COLOR,URINE YELLOW; GLUCOSE, URINE (UA) NEGATIVE (NEGATIVE); KETONES,URINE NEGATIVE (NEGATIVE); LEUKOCYTE ESTERASE ,URINE 1+ (NEGATIVE); NITRITE,URINE POSITIVE (NEGATIVE); PROTEIN,URINE TRACE (NEGATIVE)
--- NOTE | 2022-06-29 12:31 | ED Abdominal Pain ---
General Chief Complaint: Abdominal/GI Problems Stated Complaint: VOMITING | WEAKNESS | Nursing Triage Note: PT IS BROUGHT TO ED BY MOM COMPA FOR CONCERNS REGARDING WEAKNESS AND VOMITING. PT IS CIELO. DELAYED. PER MOM THE WEAKNESS HAS BEEN GOING ON FOR ABOUT A MONTH. THIS MORNING PT WAS ABLE TO AMB. TO BATHROOM WITH ASSIST HOWEVER WHEN RETURNING TO ROOM, PT FELL FACE FIRST INTO HER BED. UNABLE TO MOVE HER LEGS. AFTER HER FEEDING PT SEEMED TO IMPROVE SOME. PT HAD BEEN VERY PALE THIS MORING. PREVIOUS LABS SHOWED ANIEMA, CONCERNS FOR ANIEMA OR PARTIAL OBSTRUCTION. Source of Information: Caregiver Exam Limitations: Other (patient non-verbal) History of Present Illness Date Seen by Provider: Jun 29, 2022 Time Seen by Provider: 11:50 Initial Comments 32-year-old nonverbal female presents today with her mother and father who are her caregivers with reports of vomiting since April. Mother reports they have seen her primary care provider. Mother states she brought patient in today due to patient appearing weak, pale, dizzy with standing. Patient was seen on 06/09 and had lab work done. Labs showed anemia and decreased free T4 per mother. Mother reports history of pancreatic problems and constipation patient last had a bowel movement on either or Wednesday mother states that patient was eating normal food before the vomiting started. Patient was started on Jevity due to the vomiting. Patient was initially supposed to be on Jevity 1.5 but is on Jevity 1.2 due to a shortage of Jevity 1.5. Patient did have small amount of Jevity this morning, patient has not vomited today. Mother states that patient does not seem to be in distress, states occasionally she will moan as though she is in pain. Mother denies concern for urinary tract infection, states when patient has urinary tract infection she has urinary retention. Mother mentioned that they thought patient was getting migraines that preceded the vomiting because patient would grab her head. States that patient's brother has Chiari malformation, patient was scanned and is also noted to have Chiari malformation. Timing/Duration: Other (months) Allergies and Home Medications Allergies Coded Allergies: No Known Drug Allergies (Verified , 07/13/18) Patient Home Medication List Home Medication List Reviewed: Yes Cefdinir (Cefdinir) 250 Mg/5 Ml Susp.recon, 250 MG GT BID Prescribed by: Brittni Michael on 06/29/22 0365 Cetirizine HCl (Cetirizine HCl) 10 Mg Tab.chew, 10 MG PO DAILY, (Reported) Entered as Reported by: MARAL ISSA on 07/18/18 1257 Ciprofloxacin HCl/Dexameth (Ciprodex Otic Suspension) 7.5 Ml Soln, (Reported) Entered as Reported by: HOLA MENDOZA on 11/10/191922 Cranberry Extract/Vit C (Azo Cranberry Softgel) 1 Each Capsule, 1 EACH PO, ( Reported) Entered as Reported by: LAURA GUZMAN on 08/09/20 09 Diazepam (Diazepam) 5 Mg Tablet, 2.5 MG PO 1700, (Reported) Entered as Reported by: MARAL ISSA on 07/18/18 1257 Lactobacillus Acidophilus (Acidophilus Lactobacilli) 1 Each Capsule, 1 EACH PO DAILY, (Reported) Entered as Reported by: MARAL ISSA on 07/18/18 1257 Lactulose (Generlac) 10 Gm/15 Ml Solution, 10 GM PO BID, (Reported) Entered as Reported by: MARAL ISSA on 07/18/18 1257 Lipase/Protease/Amylase (Zenpep Dr 40,000 Units Capsule) 1 Each Capsule.dr, 1 CAP PO with meals, (Reported) Entered as Reported by: HOLA MENDOZA on 11/10/191922 Magnesium Hydroxide (Dulcolax) 400 Mg/5 Ml Oral.susp, 400 MG PO EVERY OTHER DAY, (Reported) Entered as Reported by: LAURA GUZMAN on 08/09/20950 Meclizine HCl (Meclizine HCl) 12.5 Mg Tablet, PO TID, (Reported) Entered as Reported by: MARAL ISSA on 07/18/18 1257 Montelukast Sodium (Montelukast Sodium) 10 Mg Tablet, 10 MG PO DAILY, (Reported) Entered as Reported by: MARAL ISSA on 07/18/18 1257 Multivitamin (Multivitamin) 1 Each Tablet, 1 EACH GT DAILY, (Reported) Entered as Reported by: LAURA GUZMAN on 08/09/20950 Ondansetron HCl (Ondansetron HCl) 4 Mg/5 Ml Solution, 4 MG PO Q4H PRN for NAUSEA/VOMITING Prescribed by: HODAN GRIMALDO on 05/03/19 191 Ondansetron HCl (Ondansetron HCl) 4 Mg/5 Ml Solution, 4 MG PO Q8H PRN for NAUSEA/VOMITING Prescribed by: Brittni Michael on 06/29/22 1416 Oxcarbazepine (Oxcarbazepine) 300 Mg/5 Ml Oral.susp, 13.5 ML GT DAILY, (Reported) Entered as Reported by: DEZ SANTAMARIA on 11/11/16 1416 Oxcarbazepine (Oxcarbazepine) 300 Mg/5 Ml Oral.susp, 15 ML GT HS, (Reported) Entered as Reported by: DEZ SANTAMARIA on 11/11/16 1417 Pantoprazole Sodium (Pantoprazole Sodium) 40 Mg Tablet.dr, 40 MG PO DAILY, (Reported) Entered as Reported by: MARAL ISSA on 07/18/18 1257 Sertraline HCl (Sertraline HCl) 50 Mg Tablet, 50 MG PO HS, (Reported) Entered as Reported by: MARAL ISSA on 07/18/18 1257 Review of Systems Review of Systems Constitutional: dizziness, weakness Respiratory: No Symptoms Reported Cardiovascular: No Symptoms Reported Gastrointestinal: Vomiting Genitourinary: No Symptoms Reported Skin: no symptoms reported Past Xobbwwd-Yknppu-Slwsuo Hx Patient Social History Tobacco Use?: No Substance use?: No Alcohol Use?: No Pt feels they are or have been: Unable to obtain Immunizations Up To Date Tetanus Booster (TDap): Less than 5yrs Influenza Vaccine Up-to-Date: No; Not Current First/Initial COVID19 Vaccinat: 2019 Second COVID19 Vaccination Francis: 2019 Third COVID19 Vaccination Date: 2020 COVID19 Vaccine Pathology Secretary: Jade Magnet Seasonal Allergies Seasonal Allergies: Yes Past Medical History Surgery/Hospitalization HX: PMH;SEIZURES, HIATAL HERNIA, ARNOLD'S SYNDROME SURGERY;BILATERAL HIP, LT ANKLE, GALLBLADDER REMOVAL, EAR TUBES, AND EYE SURGERY. Surgeries: Yes (NEPHROSTOMY, G-TUBE, SALIVARY GLAND, BMT'S,EGD'S ) Ear Surgery, Eye Surgery, Gallbladder, Orthopedic Respiratory: Yes Pneumonia Currently Using CPAP: No Currently Using BIPAP: No Cardiac: No Neurological: Yes ( MR) Developmental Disorder, Seizure Disorder, Vertigo Reproductive Disorders: No (RECIEVES SHOTS EVERY 3 MONTHS) Genitourinary: Yes Kidney Stones, UTI-Chronic Gastrointestinal: Yes (PEG tube) Pancreatitis, Ulcer Musculoskeletal: Yes (LOW MUSCLE TONE, POINTS TOES DOWN, MULTIPLE HIP DISLOCATIONS) Endocrine: No HEENT: Yes Chronic Ear Infection Cancer: No Psychosocial: Yes Integumentary: No Blood Disorders: No Adverse Reaction/Blood Tranf: No Family Medical History Cancer Dementia Family history: Allergy Family history: Arthritis Family history: Asthma Family history: Breast disease Family history: Cardiovascular disease Family history: Diabetes mellitus Family history: Gastrointestinal disease Family history: Hypertension Family history: Osteoporosis Hearing loss Heart disease Stroke No Family History of: Abdominal aortic aneurysm Comerío's disease Alcoholism Aphasia Cancer of colon Cataract Chest pain Congenital heart disease Congestive heart failure Cystic fibrosis Dysphagia Family history: Alzheimer's disease Family history: Coronary thrombosis Family history: Glaucoma Family history: Thyroid disorder Headache Hereditary disease History of - anemia History of - disorder History of - respiratory disease History of drug abuse Human immunodeficiency virus (HIV) seropositivity Hypercholesterolemia Infertile Kidney disease Malignant neoplasm of lung Myocardial infarction Parkinson's disease Prostate cancer Psychotic disorder Seizure disorder Tuberculosis Visual impairment Physical Exam Vital Signs Vital Signs - First Documented 06/29/22 11:28 Temp 36.0 Pulse 96 Resp 16 B/P (MAP) 100/71 (81) Pulse Ox 99 O2 Delivery Room Air Capillary Refill : Less Than 3 Seconds Height/Weight/BMI Height: 4'8.00" Weight: 91lbs. 0.0oz. 41.195881pu; 22.00 BMI Method:Stated General Appearance: WD/WN, no apparent distress Neck: supple, normal inspection Respiratory: chest non-tender, lungs clear, normal breath sounds, no respiratory distress, no accessory muscle use Cardiovascular: regular rate, rhythm, no edema, no gallop, no JVD, no murmur Gastrointestinal: normal bowel sounds, non tender, soft, no organomegaly, no pulsatile mass Neurologic/Psychiatric: alert Skin: normal color, warm/dry Progress/Results/Core Measures Results/Orders Lab Results Laboratory Tests Test 06/29/22 12:00 06/29/22 12:20 Range/Units White Blood Count 4.0 L 4.3-11.0 10^3/uL Red Blood Count 3.72 L 3.80-5.11 10^6/uL Hemoglobin 9.2 L 11.5-16.0 g/dL Hematocrit 30 L 35-52 % Mean Corpuscular Volume 80 80-99 fL Mean Corpuscular Hemoglobin 25 25-34 pg Mean Corpuscular Hemoglobin Concent 31 L 32-36 g/dL Red Cell Distribution Width 15.6 H 10.0-14.5 % Platelet Count 354 130-400 10^3/uL Mean Platelet Volume 9.5 9.0-12.2 fL Immature Granulocyte % (Auto) 0 % Neutrophils (%) (Auto) 49 42-75 % Lymphocytes (%) (Auto) 32 12-44 % Monocytes (%) (Auto) 13 H 0-12 % Eosinophils (%) (Auto) 6 0-10 % Basophils (%) (Auto) 0 0-10 % Neutrophils # (Auto) 2.0 1.8-7.8 10^3/uL Lymphocytes # (Auto) 1.3 1.0-4.0 10^3/uL Monocytes # (Auto) 0.5 0.0-1.0 10^3/uL Eosinophils # (Auto) 0.2 0.0-0.3 10^3/uL Basophils # (Auto) 0.0 0.0-0.1 10^3/uL Immature Granulocyte # (Auto) 0.0 0.0-0.1 10^3/uL Sodium Level 139 135-145 MMOL/L Potassium Level 4.7 3.6-5.0 MMOL/L Chloride Level 109 H 98-107 MMOL/L Carbon Dioxide Level 20 L 21-32 MMOL/L Anion Gap 10 5-14 MMOL/L Blood Urea Nitrogen 17 7-18 MG/DL Creatinine 0.59 L 0.60-1.30 MG/DL Estimat Glomerular Filtration Rate 121 BUN/Creatinine Ratio 29 Glucose Level 94 70-105 MG/DL Calcium Level 8.3 L 8.5-10.1 MG/DL Corrected Calcium 8.8 8.5-10.1 MG/DL Magnesium Level 1.6 1.6-2.4 MG/DL Total Bilirubin < 0.1 L 0.1-1.0 MG/DL Aspartate Amino Transf (AST/SGOT) 62 H 5-34 U/L Alanine Aminotransferase (ALT/SGPT) 58 H 0-55 U/L Alkaline Phosphatase 47 40-136 U/L Total Protein 5.7 L 6.4-8.2 GM/DL Albumin 3.4 3.2-4.5 GM/DL Lipase 105 H 8-78 U/L Thyroid Stimulating Hormone (TSH) 1.15 0.35-4.94 UIU/ML Free Thyroxine 0.66 L 0.70-1.48 NG/DL Urine Color YELLOW Urine Clarity SL CLOUDY Urine pH 7.0 5-9 Urine Specific [place] 1.025 H 1.016-1.022 Urine Protein TRACE H NEGATIVE Urine Glucose (UA) NEGATIVE NEGATIVE Urine Ketones NEGATIVE NEGATIVE Urine Nitrite POSITIVE H NEGATIVE Urine Bilirubin NEGATIVE NEGATIVE Urine Urobilinogen 0.2 < = 1.0 MG/DL Urine Leukocyte Esterase 1+ H NEGATIVE Urine RBC (Auto) NEGATIVE NEGATIVE Urine RBC NONE /HPF Urine WBC 2-5 /HPF Urine Squamous Epithelial Cells RARE /HPF Urine Crystals PRESENT H /LPF Urine Calcium Oxalate Crystals FEW H /LPF Urine Bacteria LARGE H /HPF Urine Casts NONE /LPF Urine Mucus NEGATIVE /LPF Urine Culture Indicated YES My Orders Orders - BRITTNI MICHAEL APRN Comprehensive Metabolic Panel (06/29/22 12:04) Lipase (06/29/22 12:04) Ua Culture If Indicated (06/29/22 12:04) Cbc With Automated Diff (06/29/22 12:04) Ct Abdomen/Pelvis W (06/29/22 12:04) Ed Iv/Invasive Line Start (06/29/22 12:04) Ns Iv 1000 Ml (Sodium Chloride 0.9%) (06/29/22 12:15) Urine Culture (06/29/22 12:20) Midazolam Injection (Versed Injection) (06/29/22 12:45) Magnesium (06/29/22 12:58) Thyroid Stimulating Hormone (06/29/22 12:58) Free T4 (Free Thyroxine) (06/29/22 12:58) Ceftriaxone 1 Gm Pre-Mix (Rocephin 1 Gm (06/29/22 13:15) Medications Given in ED Current Medications Medications Dose Ordered Sig/Fawad Route Start Time Stop Time Status Last Admin Dose Admin Ceftriaxone Sodium/Dextrose 50 ml @ 100 mls/hr ONCE ONCE IV 06/29/22 13:15 06/29/22 13:44 DC 06/29/22 13:44 100 MLS/HR Iohexol 45 ml ONCE ONCE IV 06/29/22 13:45 06/29/22 13:46 DC 06/29/22 13:43 45 ML Midazolam HCl 1 mg ONCE ONCE IVP 06/29/22 12:45 06/29/22 12:48 DC 06/29/22 12:53 1 MG Sodium Chloride 100 ml ONCE ONCE IV 06/29/22 13:45 06/29/22 13:46 DC 06/29/22 13:44 80 ML Vital Signs/I&O 06/29/22 06/29/22 11:28 14:55 Temp 36.0 36.0 Pulse 96 94 Resp 16 16 B/P (MAP) 100/71 (81) 100/71 Pulse Ox 99 96 O2 Delivery Room Air Room Air Blood Pressure Mean: 81 Progress Progress Note #1: Time: 12:05 Progress Note Patient seen and evaluated. Will initiate work-up for vomiting. CBC, CMP, lipase, UA, CT scan ordered. IV fluids ordered. Progress Note #2: Time: 12:35 Progress Note Patient's oxygen saturation dropped down to mid 50s with a good waveform. This provider and RN went to room to assess patient. Patient appeared to be awake. Mother reports that patient may have had a seizure. States that she has frequent seizures she stops breathing when she is seizing. Patient's oxygen saturation improved shortly thereafter. And patient was responding. Progress Note #3: Time: 12:52 Progress Note Versed ordered for CT scan due to patient being unable to lay still. Progress Note #4: Time: 13:[address] scan delayed due to loss of IV access. Parents updated on lab results that have resulted so far. Mother states that in the past when patient's lipase gets over 100 she has similar symptoms of vomiting. Waiting on CT scan report. Progress Note #5: Time: 14:11 Progress Note Results of CT scan communicated to parents at this time. Discussed discharge plan with parents. Parents agree to follow-up with primary care provider for possible endoscopy. Parents given return precautions. Progress Note #6: Time: 13:15 Progress Note UTI noted on urinalysis. Rocephin ordered. Diagnostic Imaging Diagonstic Imaging: CT Plain Films/CT/US/NM/MRI: abdomen Comments Date of Exam:06/29/22 CT ABDOMEN/PELVIS W PROCEDURE: CT abdomen and pelvis with contrast. TECHNIQUE: Multiple contiguous axial images were obtained through the abdomen and pelvis after administration of intravenous contrast. Auto Exposure Controls were utilized during the CT exam to meet ALARA standards for radiation dose reduction. All CT scans use one or more of the following dose optimizing techniques: automated exposure control, MA and/or KvP adjustment based on patient size and exam type or iterative reconstruction. INDICATION: Abdominal pain and emesis. COMPARISON: 04/17/2020. FINDINGS: There is mild hiatal hernia with mural thickening of distal esophagus. This may be related to reflux versus esophagitis. This could be assessed with endoscopy, if indicated. Gallbladder is surgically absent and there is persistent gastrostomy tube. No focal hepatic or splenic abnormalities identified. Pancreas and adrenal glands are unremarkable. There are several cortical cysts in both kidneys. The dominant cyst in the right kidney noted on the previous study is no longer identified. There is no significant free fluid. There is no bowel obstruction. Moderate amount of stool is seen throughout the colon. IMPRESSION: Mural thickening of distal esophagus could be related to reflux. Endoscopic assessment may be of value. Distortion of the right kidney is noted with interval rupture or removal of dominant right renal cyst seen on the previous study. Otherwise, no acute abnormality or significant adverse change is seen. Dictated on workstation # [id number] Dict: 06/29/22 1345 Trans: 06/29/22 1352 [id number] Interpreted by: TRUPTI RODRIGUEZ MD Electronically signed by: Departure Impression Primary Impression: Vomiting Additional Impressions: Hiatal hernia Urinary tract infection Anemia Constipation Disposition: 01 HOME, SELF-CARE Condition: Stable Departure-Patient Inst. Referrals: VIJAY GALVEZ DO (PCP/Family) Primary Care Physician Patient Instructions: Nausea and Vomiting, Adult ED Add. Discharge Instructions: Take antibiotic as prescribed. Finish full course of antibiotic even if her symptoms improve. Take Zofran as needed for vomiting. Follow-up with primary care provider for possible endoscopy. Continue home medications as prescribed. Return for any new or concerning symptoms. All discharge instructions reviewed with patient and/or family. Voiced understanding. Scripts Cefdinir (Cefdinir) 250 Mg/5 Ml Susp.recon 250 MG GT BID for 7 Days, #240 ML 0 Refills Prov: BRITTNI MICHAEL [employer] PLANNING CONSULTANT 06/29/22 Ondansetron HCl (Ondansetron HCl) 4 Mg/5 Ml Solution 4 MG PO Q8H PRN for NAUSEA/VOMITING, #240 ML 0 Refills Prov: BRITTNI MICHAEL APRN 06/29/22 BRITTNI MICHAEL APRN Jun 29, 2022 12:30
[2022-06-29 12:41] LABS: ALBUMIN 3.4 GM/DL (3.2-4.5)
[2022-06-29 12:42] LABS: BACTERIA,URINE LARGE /HPF; SQUAMOUS EPITHELIAL CELL,UR RARE /HPF
[2022-06-29 12:42] LABS: CHLORIDE 109 MMOL/L (98-107); POTASSIUM 4.7 MMOL/L (3.6-5.0); SODIUM 139 MMOL/L (135-145)
[2022-06-29 12:43] LABS: CALCIUM OXALATE CRYSTALS,UR FEW /LPF
[2022-06-29 12:43] LABS: CALCIUM 8.3 MG/DL (8.5-10.1)
[2022-06-29 12:44] LABS: GLUCOSE 94 MG/DL (70-105); TOTAL PROTEIN 5.7 GM/DL (6.4-8.2)
[2022-06-29 12:45] LABS: CARBON DIOXIDE 20 MMOL/L (21-32)
[2022-06-29] MEDS ORDERED: MIDAZOLAM 2 MG/2 ML (VERSED) VIAL IVP ONE (12:45)
[2022-06-29 12:46] LABS: BILIRUBIN,TOTAL < 0.1 MG/DL (0.1-1.0)
[2022-06-29 12:47] LABS: ALKALINE PHOSPHATASE 47 U/L (40-136)
[2022-06-29 12:48] LABS: CREATININE SERUM 0.59 MG/DL (0.60-1.30); GFR ESTIMATED 121
[2022-06-29 12:49] LABS: BUN/CREATININE RATIO 29
[2022-06-29 12:50] LABS: ALANINE AMINOTRANSFERASE 58 U/L (0-55)
[2022-06-29 12:51] LABS: LIPASE 105 U/L (8-78)
[2022-06-29] MEDS ORDERED: cefTRIAXone 1 GM PRE-MIX 50 ML IV ONE (13:15)
[2022-06-29 13:16] LABS: MAGNESIUM 1.6 MG/DL (1.6-2.4)
[2022-06-29 13:37] LABS: FREE T4 (FREE THYROXINE) 0.66 NG/DL (0.70-1.48)
[2022-06-29] MEDS ORDERED: HOLD METFORMIN - RECEIVED CONTRAST 20 ML VIAL IV SCH (13:45)
[2022-06-29] MEDS ORDERED: NS 100 ML (IVPB) BAG IV ONE (13:45)
[2022-06-29] MEDS ORDERED: IOHEXOL 350 MG/ML 100 ML (OMNIPAQUE 350) VIAL IV ONE (13:45)
--- NOTE | 2022-06-29 13:53 | Diagnostic Imaging Report ---
PROCEDURE: CT abdomen and pelvis with contrast. TECHNIQUE: Multiple contiguous axial images were obtained through the abdomen and pelvis after administration of intravenous contrast. Auto Exposure Controls were utilized during the CT exam to meet ALARA standards for radiation dose reduction. All CT scans use one or more of the following dose optimizing techniques: automated exposure control, MA and/or KvP adjustment based on patient size and exam type or iterative reconstruction. INDICATION: Abdominal pain and emesis. COMPARISON: 04/17/2020. FINDINGS: There is mild hiatal hernia with mural thickening of distal esophagus. This may be related to reflux versus esophagitis. This could be assessed with endoscopy, if indicated. Gallbladder is surgically absent and there is persistent gastrostomy tube. No focal hepatic or splenic abnormalities identified. Pancreas and adrenal glands are unremarkable. There are several cortical cysts in both kidneys. The dominant cyst in the right kidney noted on the previous study is no longer identified. There is no significant free fluid. There is no bowel obstruction. Moderate amount of stool is seen throughout the colon. IMPRESSION: Mural thickening of distal esophagus could be related to reflux. Endoscopic assessment may be of value. Distortion of the right kidney is noted with interval rupture or removal of dominant right renal cyst seen on the previous study. Otherwise, no acute abnormality or significant adverse change is seen. Dictated by: Dictated on workstation # [id number]
[2022-06-29] MEDS ORDERED: ONDA4SOL11 PO (14:16)
[2022-06-29] MEDS ORDERED: CEFD250S3 GT (14:25)
[2022-06-29 14:55] VITALS: BP 100/71
== END 2022-06-29 14:55 | disposition home or self-care (01) ==
LOC: EDUNIT# 11:21 → ER 11:23
DX: N39.0 Urinary tract infection, site not specified (principal); K44.9 Diaphragmatic hernia without obstruction or gangrene; D64.9 Anemia, unspecified; K59.00 Constipation, unspecified; Z88.1 Allergy status to other antibiotic agents
CPT/HCPCS: 36415; 51701; 74177; 80053; 81000; 83690; 83735; 84439; 84443; 85025; 87088

== ENCOUNTER → 2022-07-20 | Outpatient (CLI) | payer MEDICAID ==
[~2022-07-20] MED LIST changes: +BARIUM for suspension 96% w/w (Vanilla Silq Medium Density) PO ONE; +CEFD250S3 GT
--- NOTE | 2022-07-20 13:39 | Diagnostic Imaging Report ---
INDICATION: Difficulty with oral intake and vomiting. TECHNIQUE: The patient was administered 250 mL of thin barium through the patient's indwelling G-tube. The patient would not ingest anything orally. Serial radiographs of the abdomen were then obtained. FINDINGS: The preliminary radiograph demonstrates a large amount of stool throughout the colon. Bowel gas pattern is nonobstructed. There are surgical clips in the right upper quadrant. There is no free air. The initial radiograph does show contrast in the stomach and proximal small bowel. There is reflux of contrast into the distal esophagus. The small bowel loops are of normal caliber. The mucosal fold pattern is normal. The stomach is grossly unremarkable. IMPRESSION: Gastroesophageal reflux. No other significant abnormality is detected. Dictated by: Dictated on workstation # [id number]
--- NOTE | 2022-07-20 13:41 | Diagnostic Imaging Report ---
INDICATION: Vomiting. TECHNIQUE: 250 mL of thin barium was injected through the patient's G-tube and serial radiographs of the abdomen were obtained. FINDINGS: Contrast is seen throughout the small bowel which is nondilated. Contrast reaches the right colon at approximately 1 hour. No bowel obstruction is seen. The mucosal fold pattern is unremarkable. No mass is seen. The terminal ileum appears unremarkable. IMPRESSION: Unremarkable small bowel study. Dictated by: Dictated on workstation # [id number]
== END ==
LOC: RAD 08:02
PROVIDERS: ATTEND Surgery
DX: K21.9 Gastro-esophageal reflux disease without esophagitis (principal)
CPT/HCPCS: 74246; 74248

== ENCOUNTER 2022-08-26 05:47 | Outpatient (CLI) | payer MEDICAID ==
[~2022-08-26] VITALS: Ht 137.2 cm; Wt 43.6 kg
[~2022-08-26 05:47] MED LIST changes: -BARIUM for suspension 96% w/w (Vanilla Silq Medium Density) PO ONE
== END 2022-08-26 14:44 | disposition home or self-care (01) ==
LOC: PREOP 05:47
PROVIDERS: ATTEND Surgery
DX: Z01.818 Encounter for other preprocedural examination (principal)

== ENCOUNTER 2022-09-08 09:34 | Day surgery (SDC) | payer MEDICAID ==
[~2022-09-08] VITALS: Ht 137.2 cm; Wt 43.6 kg
[~2022-09-08 09:34] MED LIST changes: +LACTATED RINGERS 1,000 ML IV STA
[2022-09-08] MEDS ORDERED: HURRICAINE EXT TUBE (BENZOCAINE) XX PRN (09:45)
[2022-09-08 10:00] VITALS: BP 113/36
[2022-09-08] MEDS ORDERED: proPOfol 200 MG/20 ML (DIPRIVAN) VIAL IV ONE (10:43)
--- NOTE | 2022-09-08 11:16 | Progress Note-Post Operative ---
Post-Operative Progess Note Surgeon (s)/Regional Property Manager (s) Surgeon ELLYN FRANKS DO Regional Property Manager: na Pre-Operative Diagnosis Nausea, vomiting, reflux Post-Operative Diagnosis Gastritis Small hiatal hernia Procedure & Operative Findings Date of Procedure 09/08/22 Procedure Performed/Findings EGD with biopsies x2 Anesthesia Type per radiology technician Estimated Blood Loss Estimated blood loss (mL): none Specimens/Packing Specimens Removed Biopsies Antrum x1, Body x1 ELLYN FRANKS DO Sep 08, 2022 11:16
[2022-09-08] MEDS ORDERED: SUCR1TAB36 PO (11:17)
--- NOTE | 2022-09-08 11:18 | Discharge Inst-Simple/Standard ---
Discharge Inst-Standard Discharge Medications New, Converted or Re-Newed RX: Transmitted to Pharmacy Patient Instructions/Follow Up Plan of Care/Instructions/FU: 2 weeks Len Activity as Tolerated: Yes Discharge Diet: Regular Diet (tube feeds) ELLYN FRANKS DO Sep 08, 2022 11:18
[2022-09-08 11:20] VITALS: BP 128/79
[2022-09-08 11:26] VITALS: BP 128/79
[2022-09-08] MEDS ORDERED: LACTATED RINGERS 1,000 ML IV ONE (11:35)
[2022-09-08 11:45] VITALS: BP 128/79
--- NOTE | 2022-09-08 11:47 | Anesthesia-General Post-Op ---
MAC Patient Condition Mental Status/LOC: Same as Preop Cardiovascular: Satisfactory Nausea/Vomiting: Absent Respiratory: Satisfactory Pain: Controlled Complications: Absent Post Op Complications Complications None Follow Up Care/Instructions Patient Instructions None needed. Anesthesiology Discharge Order Discharge Order Patient is doing well, no complaints, stable vital signs, no apparent adverse anesthesia problems. No complications reported per nursing. TONE CRUZ CRNA Sep 08, 2022 11:47
--- NOTE | 2022-09-08 16:06 | OPERATIVE REPORT ---
DATE OF SERVICE: 09/08/2022 PREOPERATIVE DIAGNOSES: Nausea, vomiting, GERD. POSTOPERATIVE DIAGNOSES: Gastritis, small hiatal hernia. PROCEDURE: EGD with biopsy. SURGEON: Ellyn Harrington DO ANESTHESIA: Per ROOF PANEL HANGER. ESTIMATED BLOOD LOSS: None. COMPLICATIONS: None. INDICATIONS: The patient is a 32-year-old female with nausea, vomiting, GERD symptoms. Family understand risks and benefits of procedure and wishes to proceed. Consent was signed in chart. DESCRIPTION OF PROCEDURE: The patient was taken to endoscopy suite, placed in left lateral recumbent position. Timeout was performed. Scope was inserted in the mouth, down the esophagus, stomach and the duodenum without difficulty. No polyps, masses or ulcerations in the duodenum. Scope was slowly retracted back into stomach, gastritis present. Her gastrostomy tube was visualized and had normal appearance. Biopsy of the antrum and body were obtained. Scope was retroflexed noting a small hiatal hernia. No other pathology. Scope was returned to its normal position, slowly withdrawn until distal esophagus. No polyps, masses or ulcerations. No erythematous changes. Scope was slowly retracted back until completely removed. The patient tolerated the procedure well without complications, taken to recovery room in stable condition. RECOMMENDATIONS: The patient to continue on Protonix and Carafate. The patient will follow up in 2 weeks to discuss pathology results. Job ID: [id number] DocumentID: [id number] Dictated Date: 09/08/2022 11:48:40 Compensation/Benefits Specialist Date: 09/08/2022 16:03:00 Dictated By: ELLYN HARRINGTON DO [facility]
== END 2022-09-08 11:58 | disposition home or self-care (01) ==
LOC: ENDO 09:34
PROVIDERS: ATTEND Surgery
DX: K29.50 Unspecified chronic gastritis without bleeding (principal); K44.9 Diaphragmatic hernia without obstruction or gangrene; K21.9 Gastro-esophageal reflux disease without esophagitis; K31.89 Other diseases of stomach and duodenum; Z79.899 Other long term (current) drug therapy; Z93.1 Gastrostomy status
CPT/HCPCS: 84703; 88305

== ENCOUNTER 2022-09-28 11:36 | Outpatient (RCR) | payer MEDICAID ==
[2022-09-21 12:05] VITALS: BP 138/94
[2022-09-21] MEDS: FERRIC CARBOXYMALTOSE INJ 750 MG in NS (IVPB) 250 ML IV SCH (13:04)
[~2022-09-28] VITALS: Ht 137.2 cm; Wt 42.7 kg
[2022-09-28 11:35] VITALS: BP 89/61
[~2022-09-28 11:36] MED LIST changes: -LACTATED RINGERS 1,000 ML IV STA; +SUCR1TAB36 PO
[2022-09-28] MEDS: FERRIC CARBOXYMALTOSE INJ 750 MG in NS (IVPB) 250 ML IV SCH (12:15)
== END 2022-10-02 | disposition home or self-care (01) ==
LOC: SDC 11:36
PROVIDERS: ATTEND Family Medicine
DX: D50.9 Iron deficiency anemia, unspecified (principal)
CPT/HCPCS: 96365

== ENCOUNTER 2022-11-16 17:24 | Emergency (ER) | payer MEDICAID ==
[~2022-11-16] VITALS: Ht 137.2 cm; Wt 42.7 kg
--- NOTE | 2022-11-16 18:13 | ED Abdominal Pain ---
General Chief Complaint: Abdominal/GI Problems Stated Complaint: ABD PAIN/WEAKNESS Nursing Triage Note: PT TO RM 3 BY WC WITH PARENTS WITH COMPLAINT OF ABD PAIN, VOMITING, AND NOT WANTING TO STAND. STATES WHEN PT GETS CONSTIPATED, SHE WILL HAVE VOMITING WHEN WORKING ON A BOWEL MOVEMENT. Source of Information: Patient Exam Limitations: No Limitations (OLIVIA OJEDA) History of Present Illness Date Seen by Provider: November 16, 2022 Time Seen by Provider: 18:09 Initial Comments Patient is a 32-year-old female who is nonverbal who presents ED with mother and father who are caregivers for abdominal pain, vomiting. According to family this started this afternoon. Patient was bending over this evening and appeared in pain. Patient was bent over holding her abdomen. Went to the bathroom had a soft bowel movement and vomited. Patient is not wanting to stand or bear weight. Denies of any falls. History of anemia, decreased free T4 per mother. She does have a history of constipation. She does have a Satnam button. History of cholecystectomy. According to father they had to remove adhesions in her abdomen. She only had 1 episode of nonbilious vomiting today. Denies any c ough, runny nose, fever, change in urination. History of frequent urinary tract infections. Patient is urinating without any difficulties (OLIVIA OJEDA) Allergies and Home Medications Allergies Coded Allergies: No Known Drug Allergies (Verified , 07/13/18) Patient Home Medication List Home Medication List Reviewed: Yes (OLIVIA OJEDA) Cefdinir (Cefdinir) 125 Mg/5 Ml Susp.recon, 12 ML PO BID Prescribed by: HODAN GRIMALDO on 11/19/22 0837 Last Action: New Order Cetirizine HCl (Cetirizine HCl) 10 Mg Tab.chew, 10 MG PO DAILY, (Reported) Entered as Reported by: MARAL ISSA on 07/18/18 1257 Ciprofloxacin HCl/Dexameth (Ciprodex Otic Suspension) 7.5 Ml Soln, (Reported) Entered as Reported by: HOLA MENDOZA on 11/10/19 1923 Cranberry Extract/Vit C (Azo Cranberry Softgel) 1 Each Capsule, 1 EACH PO, (Reported) Entered as Reported by: LAURA GUZMAN on 08/09/20 0951 Diazepam (Diazepam) 5 Mg Tablet, 2.5 MG PO 1700, (Reported) Entered as Reported by: MARAL ISSA on 07/18/18 1257 Lactulose (Generlac) 10 Gm/15 Ml Solution, 10 GM PO BID, (Reported) Entered as Reported by: MARAL ISSA on 07/18/18 1257 Meclizine HCl (Meclizine HCl) 12.5 Mg Tablet, PO TID, (Reported) Entered as Reported by: MARAL ISSA on 07/18/18 1257 Montelukast Sodium (Montelukast Sodium) 10 Mg Tablet, 10 MG PO DAILY, (Reported) Entered as Reported by: MARAL ISSA on 07/18/18 1257 Oxcarbazepine (Oxcarbazepine) 300 Mg/5 Ml Oral.susp, 13.5 ML GT DAILY, (Reported) Entered as Reported by: DEZ SANTAMARIA on 11/11/16 1416 Oxcarbazepine (Oxcarbazepine) 300 Mg/5 Ml Oral.susp, 15 ML GT HS, (Reported) Entered as Reported by: DEZ SANTAMARIA on 11/11/16 1417 Pantoprazole Sodium (Pantoprazole Sodium) 40 Mg Tablet.dr, 40 MG PO DAILY, (Reported) Entered as Reported by: MARAL ISSA on 07/18/18 1257 Sertraline HCl (Sertraline HCl) 50 Mg Tablet, 50 MG PO HS, (Reported) Entered as Reported by: MARAL ISSA on 07/18/18 1257 Sucralfate (Carafate) 1 Gram Tablet, 1 GM PO QID Prescribed by: ELLYN FRANKS on 09/08/22 1117 Review of Systems Review of Systems Constitutional: No chills, No diaphoresis, No fever, No malaise, No weakness EENTM: No Eye Pain Respiratory: Denies Cough, Denies Orthopnea Cardiovascular: Denies Chest Pain, Denies Edema Gastrointestinal: Abdominal Pain; Denies Constipated, Denies Diarrhea; Nausea, Vomiting Genitourinary: Denies Drainage, Denies Frequency Musculoskeletal: No back pain, No joint pain Skin: No change in color, No change in hair/nails Psychiatric/Neurological: Denies Anxiety, Denies Depressed Endocrine: Denies Excessive Sweating, Denies Flushing (OLIVIA OJEDA) All Other Systems Reviewed Negative Unless Noted: Yes (OLIVIA OJEDA) Past Euxumyo-Yssoaj-Edfwks Hx Patient Social History Tobacco Use?: No Use of E-Cig and/or Vaping dev: No Substance use?: No Alcohol Use?: No Pt feels they are or have been: No (OLIVIA OJEDA) Immunizations Up To Date Tetanus Booster (TDap): Less than 5yrs First/Initial COVID19 Vaccinat: 2019 Second COVID19 Vaccination Francis: 2019 Third COVID19 Vaccination Date: 2020 (OLIVIA OJEDA) Seasonal Allergies Seasonal Allergies: Yes (OLIVIA OJEDA) Past Medical History Surgery/Hospitalization HX: PMH;SEIZURES, HIATAL HERNIA, ARNOLD'S SYNDROME SURGERY;BILATERAL HIP, LT ANKLE, GALLBLADDER REMOVAL, EAR TUBES, AND EYE SURGERY. Surgeries: Yes (NEPHROSTOMY tube placed/removed, G-TUBE, SALIVARY GLAND, BMT'S,EGD'S ) Ear Surgery, Eye Surgery, Gallbladder, Orthopedic Respiratory: Yes Pneumonia Currently Using CPAP: No Currently Using BIPAP: No Cardiac: No Neurological: Yes ( MR) Developmental Disorder, Seizure Disorder, Vertigo Reproductive Disorders: No (RECIEVES SHOTS EVERY 3 MONTHS) Genitourinary: Yes Kidney Stones, UTI-Chronic Gastrointestinal: Yes (PEG tube) Pancreatitis, Ulcer Musculoskeletal: Yes (LOW MUSCLE TONE, POINTS TOES DOWN, MULTIPLE HIP DISLOCATIONS) Endocrine: No HEENT: Yes Chronic Ear Infection Cancer: No Psychosocial: Yes Integumentary: No Blood Disorders: No Adverse Reaction/Blood Tranf: No (OLIVIA OJEDA) Family Medical History Cancer Dementia Family history: Allergy Family history: Arthritis Family history: Asthma Family history: Breast disease Family history: Cardiovascular disease Family history: Diabetes mellitus Family history: Gastrointestinal disease Family history: Hypertension Family history: Osteoporosis Hearing loss Heart disease Stroke No Family History of: Abdominal aortic aneurysm [place]'s disease Alcoholism Aphasia Cancer of colon Cataract Chest pain Congenital heart disease Congestive heart failure Cystic fibrosis Dysphagia Family history: Alzheimer's disease Family history: Coronary thrombosis Family history: Glaucoma Family history: Thyroid disorder Headache Hereditary disease History of - anemia History of - disorder History of - respiratory disease History of drug abuse Human immunodeficiency virus (HIV) seropositivity Hypercholesterolemia Infertile Kidney disease Malignant neoplasm of lung Myocardial infarction Parkinson's disease Prostate cancer Psychotic disorder Seizure disorder Tuberculosis Visual impairment Physical Exam Vital Signs Capillary Refill : (OLIVIA OJEDA) Height/Weight/BMI Height: 4'8.00" Weight: 91lbs. 0.0oz. [id number]; 22.00 BMI Method:Stated General Appearance: no apparent distress HEENT: PERRL/EOMI, normal ENT inspection, TMs normal, pharynx normal Neck: non-tender, full range of motion, normal inspection Respiratory: chest non-tender, lungs clear, normal breath sounds, no respirat ory distress, no accessory muscle use Cardiovascular: regular rate, rhythm, no edema, no gallop, no JVD Gastrointestinal: normal bowel sounds, non tender, soft, no organomegaly, no pulsatile mass Extremities: normal range of motion, no pedal edema Neurologic/Psychiatric: alert Skin: normal color (OLIVIA OJEDA) Progress/Results/Core Measures Results/Orders Lab Results Laboratory Tests Test 11/16/22 19:43 Range/Units Urine Color YELLOW Urine Clarity CLEAR Urine pH 6.5 5-9 Urine Specific [place] <=1.005 1.016-1.022 Urine Protein TRACE H NEGATIVE Urine Glucose (UA) NEGATIVE NEGATIVE Urine Ketones NEGATIVE NEGATIVE Urine Nitrite NEGATIVE NEGATIVE Urine Bilirubin NEGATIVE NEGATIVE Urine Urobilinogen 0.2 < = 1.0 MG/DL Urine Leukocyte Esterase TRACE H NEGATIVE Urine RBC (Auto) TRACE-I H NEGATIVE Urine RBC 0-2 /HPF Urine WBC 2-5 /HPF Urine Squamous Epithelial Cells 0-2 /HPF Urine Crystals NONE /LPF Urine Bacteria FEW H /HPF Urine Casts NONE /LPF Urine Mucus NEGATIVE /LPF Urine Culture Indicated YES (HODAN HERNANDEZ MD) Departure Communication (PCP) Patient is a 32-year-old female who presents ED with mother and father for abdominal pain with episode of vomiting. Symptoms started this evening. She did eat this morning. Does have a Satnam button. Not able to get any type of history from patient. History based on family's assumption of how patient was acting. Patient was leaning over holding her abdomen at that time. She Was not wanting to stand up. Do not believe she fall. She does have caregivers at home that take care of her during the day. History of constipation. Due to current complaint CBC, CMP, lipase, urinalysis and CT abdomen pelvis was ordered. Patient was a difficult IV stick. Several nurses attempted as well as bedside ultrasound and was unsuccessful. Family did not want to proceed with any more blood draws. Agreed for straight cath urinalysis and CT abdomen pelvis without contrast. Urinalysis without strong evidence of infection. Leukocytes and red blood cells noted. Culture pending. She Was not treated at this time. Will wait for culture. Mother states typically with urinary tract infection she urinates more frequently or has a decreased urine output. CT abdomen and pelvis did show large amount of stool. Nephrolithiasis without evidence of obstruction. No evidence of surgical abdomen. Normal appendix. Patient appears to be doing much better at this time. She did have a seizure during her stay. According to family patient has daily seizures. She did receive diazepam 5 mg today. Family did give her 5 mg of their diazepam when she had a seizure here. She did become postictal for a few minutes but that improved shortly after. Patient was observed. Family states she has daily seizures. Symptoms continued improved. She Was able to stand and walk. Discussed MiraLAX, drinking plenty water for the constipation. She did have large bowel movements today which seem to improve some of her symptoms. Lung sounds clear bilateral. She was not tachycardic or hypoxic. Patient will be discharged with strict return precautions. Follow-up your PCP in 2 to 3 days for reevaluation. If any worsening symptoms return back to ED. Family agrees with plan of action (OLIVIA OJEDA) Impression Primary Impression: Constipation Disposition: 01 HOME, SELF-CARE Condition: Stable Departure-Patient Inst. Decision time for Depature: 20:41 (OLIVIA OJEDA) Referrals: VIJAY GALVEZ DO (PCP/Family) Primary Care Physician Patient Instructions: Constipation, Adult (DC) Add. Discharge Instructions: May consider using a laxative to help with bowel movements and abdominal pain. If increasing pain, vomiting, fever to return back to ED All discharge instructions reviewed with patient and/or family. Voiced understanding. Scripts Cefdinir (Cefdinir) 125 Mg/5 Ml Susp.recon 12 ML PO BID, #170 ML 0 Refills Prov: HODAN HERNANDEZ MD 11/19/22 ATTENDING PHYSICIAN NOTE: I was physically present as attending physician in the emergency department during the care of this patient, but I was not directly involved in the decision making or delivery of care for this patient. (HODAN HERNANDEZ MD) OLIVIA OJEDA November 16, 2022 18:13 HODAN HERNANDEZ MD November 17, 2022 04:03
[2022-11-16] MEDS ORDERED: LORazepam INJ 2 MG/ML (ATIVAN) VIAL ONE (19:06)
[2022-11-16] MEDS ORDERED: LORazepam INJ 2 MG/ML (ATIVAN) VIAL IM ONE (19:15)
[2022-11-16 19:48] LABS: BILIRUBIN,URINE NEGATIVE (NEGATIVE); CLARITY,URINE CLEAR; COLOR,URINE YELLOW; GLUCOSE, URINE (UA) NEGATIVE (NEGATIVE); KETONES,URINE NEGATIVE (NEGATIVE); LEUKOCYTE ESTERASE ,URINE TRACE (NEGATIVE); NITRITE,URINE NEGATIVE (NEGATIVE); PH,URINE 6.5 (5-9); PROTEIN,URINE TRACE (NEGATIVE)
[2022-11-16 20:00] LABS: BACTERIA,URINE FEW /HPF; RBC,URINE 0-2 /HPF; SQUAMOUS EPITHELIAL CELL,UR 0-2 /HPF
--- NOTE | 2022-11-16 20:13 | Diagnostic Imaging Report ---
PROCEDURE: CT abdomen and pelvis without contrast. TECHNIQUE: Multiple contiguous axial images were obtained through the abdomen and pelvis without the use of intravenous contrast. Auto Exposure Controls were utilized during the CT exam to meet ALARA standards for radiation dose reduction. INDICATION: Abdominal pain. COMPARISON: 06/29/2022. FINDINGS: The heart is unremarkable. The lung bases are clear. Nonobstructing calculus is seen in the left kidney. No obstructing calculi or hydronephrosis. Stable chronic scarring is seen in the right kidney. The urinary bladder is nondistended. The liver, spleen, pancreas, and adrenal glands have a normal noncontrast CT appearance. The gallbladder is surgically absent. There is no pathologically enlarged mesenteric or retroperitoneal adenopathy. PEG tube is seen in appropriate configuration. The bowel loops are nondilated. A moderate volume of stool seen in the colon. Normal appendix is seen in the right lower quadrant. There is no free fluid or free air. No acute osseous abnormalities. There is no free air, loculated collection, or adenopathy in the pelvis. IMPRESSION: 1. Moderate amount of stool in the colon, suggestive of constipation. No bowel obstruction. Normal appendix. 2. Nonobstructing calculus in the left kidney. No hydronephrosis or obstructing calculi. Stable chronic scarring in the right kidney. Dictated by: Dictated on workstation # [id number]
[2022-11-19] MEDS ORDERED: CEFD125S3 PO (08:37)
== END 2022-11-16 20:52 | disposition home or self-care (01) ==
LOC: EDUNIT# 17:24 → ER 17:26
DX: K59.00 Constipation, unspecified (principal); D72.829 Elevated white blood cell count, unspecified; N20.0 Calculus of kidney; G40.909 Epilepsy, unspecified, not intractable, without status epilepticus; Z90.49 Acquired absence of other specified parts of digestive tract; Z87.440 Personal history of urinary (tract) infections
CPT/HCPCS: 51702; 74176; 81000; 87077; 87088; 87186

== ENCOUNTER 2023-04-23 10:08 | Emergency (ER) | payer MEDICAID ==
[~2023-04-23] VITALS: Ht 137.1 cm; Wt 43.0 kg
[~2023-04-23 10:08] MED LIST changes: +CEFD125S3 PO
--- NOTE | 2023-04-23 10:58 | ED Abdominal Pain ---
General Chief Complaint: Abdominal/GI Problems Stated Complaint: ABD PAIN | LETHARGY Nursing Triage Note: PT ARRIVED POV WITH CAREGIVER AND FATHER. PTS FATHER STATED THAT SHE HAS BEEN LETHARGIC AND CRYING IN PAIN FOR A COUPLE DAYS. SINCE PT IS NON-VERBAL FATHER IS UNCERTAIN OF CAUSE OF PAIN BUT BELIEVES IT IS HER ABD. PT HAS A HX OF CONSTIPATION. TYLENOL WAS GIVEN AT 0820. Source of Information: Patient, Family Exam Limitations: Physical Impairments History of Present Illness Date Seen by Provider: Apr 23, 2023 Time Seen by Provider: 10:16 Initial Comments 33-year-old female that is nonverbal and developmentally delayed coming in with family due to their concerns for abdominal pain. The patient has many cues that she is in pain that they are concerned she is exhibiting. When I push on her abdomen, they are concerned that she is showing signs of pain. She has had decreased bowel movements, and had a very small 1 yesterday, less than typical. No vomiting that they have noticed. Also denies any fever. Mostly just been acting more lethargic and crying more. This has been going on for maybe a couple of days. Allergies and Home Medications Allergies Coded Allergies: No Known Drug Allergies (Verified , 07/13/18) Patient Home Medication List Home Medication List Reviewed: Yes Cefdinir (Cefdinir) 125 Mg/5 Ml Susp.recon, 12 ML PO BID Prescribed by: HODAN GRIMALDO on 11/19/22 0837 Cetirizine HCl (Cetirizine HCl) 10 Mg Tab.chew, 10 MG PO DAILY, (Reported) Entered as Reported by: MARAL ISSA on 07/18/18 1257 Ciprofloxacin HCl/Dexameth (Ciprodex Otic Suspension) 7.5 Ml Soln, (Reported) Entered as Reported by: HOLA MENDOZA on 11/10/19 1923 Cranberry Extract/Vit C (Azo Cranberry Softgel) 1 Each Capsule, 1 EACH PO, (Reported) Entered as Reported by: LAURA GUZMAN on 08/09/20 0951 Diazepam (Diazepam) 5 Mg Tablet, 2.5 MG PO 1700, (Reported) Entered as Reported by: MARAL ISSA on 07/18/18 1257 Lactulose (Generlac) 10 Gm/15 Ml Solution, 10 GM PO BID, (Reported) Entered as Reported by: MARAL ISSA on 07/18/18 1257 Meclizine HCl (Meclizine HCl) 12.5 Mg Tablet, PO TID, (Reported) Entered as Reported by: MARAL ISSA on 07/18/18 1257 Montelukast Sodium (Montelukast Sodium) 10 Mg Tablet, 10 MG PO DAILY, (Reported) Entered as Reported by: MARAL ISSA on 07/18/18 1257 Oxcarbazepine (Oxcarbazepine) 300 Mg/5 Ml Oral.susp, 13.5 ML GT DAILY, (Reported) Entered as Reported by: DEZ SANTAMARIA on 11/11/16 1416 Oxcarbazepine (Oxcarbazepine) 300 Mg/5 Ml Oral.susp, 15 ML GT HS, (Reported) Entered as Reported by: DEZ SANTAMARIA on 11/11/16 1417 Pantoprazole Sodium (Pantoprazole Sodium) 40 Mg Tablet.dr, 40 MG PO DAILY, (Reported) Entered as Reported by: MARAL ISSA on 07/18/18 1257 Sertraline HCl (Sertraline HCl) 50 Mg Tablet, 50 MG PO HS, (Reported) Entered as Reported by: MARAL ISSA on 07/18/18 1257 Sucralfate (Carafate) 1 Gram Tablet, 1 GM PO QID Prescribed by: ELLYN FRANKS on 09/08/22 1117 Review of Systems Review of Systems Constitutional: No fever EENTM: No Symptoms Reported Respiratory: No Symptoms Reported Cardiovascular: No Symptoms Reported Gastrointestinal: See HPI Genitourinary: No Symptoms Reported Musculoskeletal: no symptoms reported Skin: no symptoms reported Psychiatric/Neurological: No Symptoms Reported Endocrine: No Symptoms Reported Hematologic/Lymphatic: No Symptoms Reported Past Kyxvtwk-Kdwrdt-Dvfqcn Hx Patient Social History Tobacco Use?: No Substance use?: No Alcohol Use?: No Immunizations Up To Date Tetanus Booster (TDap): Less than 5yrs First/Initial COVID19 Vaccinat: 2019 Second COVID19 Vaccination Francis: 2019 Third COVID19 Vaccination Date: 2020 Seasonal Allergies Seasonal Allergies: Yes Past Medical History Surgery/Hospitalization HX: PMH;SEIZURES, HIATAL HERNIA, ARNOLD'S SYNDROME SURGERY;BILATERAL HIP, LT ANKLE, GALLBLADDER REMOVAL, EAR TUBES, AND EYE SURGERY. Surgeries: Yes (NEPHROSTOMY tube placed/removed, G-TUBE, SALIVARY GLAND, BMT'S,EGD'S ) Ear Surgery, Eye Surgery, Gallbladder, Orthopedic Respiratory: Yes Pneumonia Currently Using CPAP: No Currently Using BIPAP: No Cardiac: No Neurological: Yes ( MR) Developmental Disorder, Seizure Disorder, Vertigo Reproductive Disorders: No (RECIEVES SHOTS EVERY 3 MONTHS) Genitourinary: Yes Kidney Stones, UTI-Chronic Gastrointestinal: Yes (PEG tube) Pancreatitis, Ulcer Musculoskeletal: Yes (LOW MUSCLE TONE, POINTS TOES DOWN, MULTIPLE HIP DISLOCATIONS) Endocrine: No HEENT: Yes Chronic Ear Infection Cancer: No Psychosocial: Yes Integumentary: No Blood Disorders: No Adverse Reaction/Blood Tranf: No Family Medical History Cancer Dementia Family history: Allergy Family history: Arthritis Family history: Asthma Family history: Breast disease Family history: Cardiovascular disease Family history: Diabetes mellitus Family history: Gastrointestinal disease Family history: Hypertension Family history: Osteoporosis Hearing loss Heart disease Stroke No Family History of: Abdominal aortic aneurysm Barnsdall's disease Alcoholism Aphasia Cancer of colon Cataract Chest pain Congenital heart disease Congestive heart failure Cystic fibrosis Dysphagia Family history: Alzheimer's disease Family history: Coronary thrombosis Family history: Glaucoma Family history: Thyroid disorder Headache Hereditary disease History of - anemia History of - disorder History of - respiratory disease History of drug abuse Human immunodeficiency virus (HIV) seropositivity Hypercholesterolemia Infertile Kidney disease Malignant neoplasm of lung Myocardial infarction Parkinson's disease Prostate cancer Psychotic disorder Seizure disorder Tuberculosis Visual impairment Physical Exam Vital Signs Vital Signs - First Documented 04/23/23 10:17 Temp 35.5 Pulse 96 B/P (MAP) 115/83 (94) Pulse Ox 98 O2 Delivery Room Air Capillary Refill : Height/Weight/BMI Height: 4'8.00" Weight: 91lbs. 0.0oz. 41.222201tf; 22.00 BMI Method:Stated General Appearance: WD/WN, no apparent distress HEENT: PERRL/EOMI, normal ENT inspection, pharynx normal Neck: non-tender, full range of motion, supple, normal inspection Respiratory: chest non-tender, lungs clear, normal breath sounds, no respiratory distress, no accessory muscle use Cardiovascular: regular rate, rhythm, no edema Gastrointestinal: normal bowel sounds, tenderness (grimaces when pushing everywhere) Extremities: normal range of motion, non-tender, normal inspection, no pedal edema, no calf tenderness Neurologic/Psychiatric: alert Skin: normal color, warm/dry Progress/Results/Core Measures Results/Orders Lab Results Laboratory Tests Test 04/23/23 11:03 04/23/23 11:27 Range/Units Urine Color YELLOW Urine Clarity CLEAR Urine pH 7.5 5-9 Urine Specific Bally 1.020 1.016-1.022 Urine Protein NEGATIVE NEGATIVE Urine Glucose (UA) NEGATIVE NEGATIVE Urine Ketones NEGATIVE NEGATIVE Urine Nitrite NEGATIVE NEGATIVE Urine Bilirubin NEGATIVE NEGATIVE Urine Urobilinogen 0.2 < = 1.0 MG/DL Urine Leukocyte Esterase NEGATIVE NEGATIVE Urine RBC (Auto) TRACE H NEGATIVE Urine RBC NONE /HPF Urine WBC 0-2 /HPF Urine Squamous Epithelial Cells RARE /HPF Urine Crystals PRESENT H /LPF Urine Amorphous Sediment MOD RICHARD PHOSPHATE H /LPF Urine Bacteria NEGATIVE /HPF Urine Casts NONE /LPF Urine Mucus NEGATIVE /LPF Urine Culture Indicated NO White Blood Count 6.6 4.3-11.0 10^3/uL Red Blood Count 3.94 3.80-5.11 10^6/uL Hemoglobin 12.1 11.5-16.0 g/dL Hematocrit 37 35-52 % Mean Corpuscular Volume 93 80-99 fL Mean Corpuscular Hemoglobin 31 25-34 pg Mean Corpuscular Hemoglobin Concent 33 32-36 g/dL Red Cell Distribution Width 14.0 10.0-14.5 % Platelet Count 303 130-400 10^3/uL Mean Platelet Volume 8.3 L 9.0-12.2 fL Immature Granulocyte % (Auto) 0 % Neutrophils (%) (Auto) 75 42-75 % Lymphocytes (%) (Auto) 12 12-44 % Monocytes (%) (Auto) 11 0-12 % Eosinophils (%) (Auto) 2 0-10 % Basophils (%) (Auto) 0 0-10 % Neutrophils # (Auto) 5.0 1.8-7.8 10^3/uL Lymphocytes # (Auto) 0.8 L 1.0-4.0 10^3/uL Monocytes # (Auto) 0.7 0.0-1.0 10^3/uL Eosinophils # (Auto) 0.1 0.0-0.3 10^3/uL Basophils # (Auto) 0.0 0.0-0.1 10^3/uL Immature Granulocyte # (Auto) 0.0 0.0-0.1 10^3/uL Prothrombin Time 14.4 12.2-14.7 SEC INR Comment 1.1 0.8-1.4 Activated Partial Thromboplast Time 34 24-35 SEC Sodium Level 136 135-145 MMOL/L Potassium Level 3.3 L 3.6-5.0 MMOL/L Chloride Level 105 98-107 MMOL/L Carbon Dioxide Level 22 21-32 MMOL/L Anion Gap 9 5-14 MMOL/L Blood Urea Nitrogen 12 7-18 MG/DL Creatinine 0.67 0.60-1.30 MG/DL Estimat Glomerular Filtration Rate 117 BUN/Creatinine Ratio 18 Glucose Level 110 H 70-105 MG/DL Calcium Level 8.4 L 8.5-10.1 MG/DL Corrected Calcium 8.6 8.5-10.1 MG/DL Total Bilirubin 0.3 0.1-1.0 MG/DL Aspartate Amino Transf (AST/SGOT) 333 H 5-34 U/L Alanine Aminotransferase (ALT/SGPT) 161 H 0-55 U/L Alkaline Phosphatase 90 40-136 U/L C-Reactive Protein High Sensitivity 0.18 0.00-0.50 MG/DL Total Protein 6.4 6.4-8.2 GM/DL Albumin 3.8 3.2-4.5 GM/DL Lipase 100 H 8-78 U/L My Orders Orders - OLIVIA CLANCY MD Ct Abdomen/Pelvis W (04/23/23 10:36) Ed Iv/Invasive Line Start (04/23/23 10:36) Cbc And Automated Diff (04/23/23 10:36) Comprehensive Metabolic Panel (04/23/23 10:36) Hs C Reactive Protein (04/23/23 10:36) Lipase (04/23/23 10:36) Protime With Inr (04/23/23 10:36) Partial Thromboplastin Time (04/23/23 10:36) Ua Culture If Indicated (04/23/23 10:36) Morphine Injection (Morphine Injection (04/23/23 11:27) Ondansetron Injection (Ondansetron Inj (04/23/23 11:30) Ns Iv 500 Ml (Ns Iv 500 Ml) (04/23/23 11:27) Iohexol Injection (Omnipaque 350 Mg/Ml 1 (04/23/23 12:15) Ns (Ivpb) 100 Ml (Sodium Chloride 0.9% 1 (04/23/23 12:15) Medications Given in ED Current Medications Medications Dose Ordered Sig/Fawad Route Start Time Stop Time Status Last Admin Dose Admin Iohexol 100 ml ONCE ONCE IV 04/23/23 12:15 04/23/23 12:16 DC 04/23/23 12:25 49 ML Ondansetron HCl 4 mg ONCE ONCE IVP 04/23/23 11:30 04/23/23 11:31 DC 04/23/23 11:49 4 MG Sodium Chloride 100 ml ONCE ONCE IV 04/23/23 12:15 04/23/23 12:16 DC 04/23/23 12:25 80 ML Vital Signs/I&O 04/23/23 10:17 Temp 35.5 Pulse 96 B/P (MAP) 115/83 (94) Pulse Ox 98 O2 Delivery Room Air Blood Pressure Mean: 94 Progress Progress Note : Progress Note 33-year-old female with above history coming in due to abdominal pain. ABCs were intact and vitals are stable on presentation. She does have a slightly distended abdomen which is soft, and grimaces somewhat to pain. No signs of peritonitis. Vital signs are also unremarkable. An IV was placed and basic labs were obtained and were significant for UA shows no evidence of abnormal chemistries, cells, or bacteria. White blood cell count, slightly elevated LFTs, normal creatinine, lipase of 100 which is not consistent with pancreatitis, and urinalysis negative for infection. CT abdomen pelvis ordered and on my interpretation she has a significant amount of stool burden. This is consistent with the constipation that family is mentioning. She also has an incidental renal mass versus potentially infection. Given the lack of fever, normal white blood cell count, and urine that appears normal, I think infection is less likely, however a trial of antibiotics would not be unreasonable and th en they can get repeat imaging. Family is agreeable to this plan. She was then discharged home in stable condition with strict return precautions. On arrival, she did receive some morphine, fluids, and Zofran which did make her feel better Diagnostic Imaging Diagonstic Imaging: CT (abd/pelvis) Comments [facility]. [place], [place] NAME: AMBROCIO PASCUAL [facility] REC#: [id number] PT STATUS: REG ER : 1990 PHYSICIAN: OLIVIA CLANCY MD ADMIT DATE: 04/23/23/ER Draft Date of Exam:04/23/23 CT ABDOMEN/PELVIS W EXAMINATION: CT abdomen and pelvis with intravenous contrast. TECHNIQUE: Multiple contiguous axial images were obtained through the abdomen and pelvis after the uneventful administration of intravenous contrast. All CT scans use one or more of the following dose optimizing techniques: automated exposure control, MA and/or KvP adjustment based on patient size and exam type or iterative reconstruction. HISTORY: Abdominal pain, nonverbal and developmental delay. COMPARISON: 11/16/2022 FINDINGS: Lung bases: The lung bases are clear. Solid organs: The liver is normal without focal lesion. The gallbladder is surgically absent. There is no biliary ductal dilation. Pancreas is normal. Spleen is normal. Adrenal glands are normal. There is a mildly complex lesion within the lateral right mid kidney measuring 2.0 x 2.6 cm which may demonstrate some peripheral enhancement. There was a large but simple-appearing cyst at this location on a CT of 04/17/2020 which showed interval decompression on 06/29/2022. Bowel: There is a moderate hiatal hernia present. Fluid is present within the distal thoracic esophagus and herniated gastric lumen. There is a percutaneous gastrostomy tube present. There is a large volume of stool seen throughout the colon. The appendix is normal. Peritoneum: There is no intraperitoneal free fluid or free air. No suspicious lymphadenopathy. Vasculature: Normal without aneurysm. Musculoskeletal: Degenerative changes of the spine without suspicious osseous lesion or compression fracture. Pelvis: The uterus and adnexa are normal. The urinary bladder is normal. IMPRESSION: 1. No acute abnormality in the abdomen or pelvis. 2. Indeterminate right renal cortical exophytic lesion. This is in the location of a decompressed simple right renal cyst with new mild peripheral enhancement. This could represent a mildly comminuted or infected cyst although neoplasm would remain in the differential. Recommend short-term CT or MRI follow-up renal mass protocol. 3. Fluid distention of the distal esophagus with hiatal hernia present. Dictated on workstation # [id number] Dict: 04/23/23 1234 Trans: 04/23/23 1244 [facility] [id number] Interpreted by: HOLA GRAFF DO Electronically signed by: Departure Impression Primary Impression: Constipation Qualified Codes: K59.01 - Slow transit constipation Additional Impression: Renal mass Disposition: HOME, SELF-CARE Condition: Stable Departure-Patient Inst. Decision time for Depature: 13:15 Referrals: VIJAY GALVEZ DO (PCP/Family) Primary Care Physician Patient Instructions: Constipation, Adult ED Add. Discharge Instructions: There is a very large amount of stool on her CT. We recommend MiraLAX, enema, or what ever you need to do to get her cleaned out. She also has a renal mass on the right side. This needs repeat imaging specific for renal mass protocol. We will trial her on antibiotics just in case this is some type of infection in her kidney. Additionally, her AST and ALT were 333 and 161 respectively. This will need repeat labs drawn in the next few weeks to month. These labs can be very nonspecific Scripts Cefdinir (Cefdinir) 300 Mg Capsule 300 MG PO BID for 10 Days, #20 CAP 0 Refills Prov: OLIVIA CLANCY MD 04/23/23 Metronidazole (Metronidazole) 500 Mg Tablet 500 MG PO TID for 10 Days, #30 TAB Prov: OLIVIA CLANCY MD 04/23/23 OLIVIA CLANCY MD Apr 23, 2023 10:58
[2023-04-23 11:16] LABS: BILIRUBIN,URINE NEGATIVE (NEGATIVE); CLARITY,URINE CLEAR; COLOR,URINE YELLOW; GLUCOSE, URINE (UA) NEGATIVE (NEGATIVE); KETONES,URINE NEGATIVE (NEGATIVE); NITRITE,URINE NEGATIVE (NEGATIVE); PH,URINE 7.5 (5-9); PROTEIN,URINE NEGATIVE (NEGATIVE)
[2023-04-23 11:17] LABS: AMORPHOUS SEDIMENT,UR MOD AMOR PHOSPHATE /LPF; BACTERIA,URINE NEGATIVE /HPF; LEUKOCYTE ESTERASE ,URINE NEGATIVE (NEGATIVE); SQUAMOUS EPITHELIAL CELL,UR RARE /HPF; WBC,URINE 0-2 /HPF
[2023-04-23] MEDS ORDERED: morphine INJ 10 MG/ML 1ML (SYR OR VIAL) IVP STA (11:27)
[2023-04-23] MEDS ORDERED: NS IV 500 ML 500 ML IV STA (11:27)
[2023-04-23] MEDS ORDERED: ONDANSETRON INJECTION 4 MG/2 ML (SDV) IVP ONE (11:30)
[2023-04-23 11:35] LABS: BASOPHILS % (AUTO) 0 % (0-10); EOSINOPHILS # (AUTO) 0.1 10^3/uL (0.0-0.3); EOSINOPHILS % (AUTO) 2 % (0-10); HEMATOCRIT 37 % (35-52); HEMOGLOBIN 12.1 g/dL (11.5-16.0); LYMPHOCYTES # (AUTO) 0.8 10^3/uL (1.0-4.0); LYMPHOCYTES % (AUTO) 12 % (12-44); MEAN CORPUSCULAR HEMOGLOBIN 31 pg (25-34); MEAN CORPUSCULAR HGB CONC 33 g/dL (32-36); MEAN CORPUSCULAR VOLUME 93 fL (80-99); MEAN PLATELET VOLUME 8.3 fL (9.0-12.2); MONOCYTES # (AUTO) 0.7 10^3/uL (0.0-1.0); MONOCYTES % (AUTO) 11 % (0-12); NEUTROPHILS % (AUTO) 75 % (42-75); PLATELET COUNT 303 10^3/uL (130-400); WHITE BLOOD COUNT 6.6 10^3/uL (4.3-11.0)
[2023-04-23 11:46] LABS: ALBUMIN 3.8 GM/DL (3.2-4.5); POTASSIUM 3.3 MMOL/L (3.6-5.0)
[2023-04-23 11:47] LABS: INR 1.1 (0.8-1.4); PROTHROMBIN TIME PATIENT 14.4 SEC (12.2-14.7)
[2023-04-23 11:48] LABS: CALCIUM 8.4 MG/DL (8.5-10.1)
[2023-04-23 11:49] LABS: TOTAL PROTEIN 6.4 GM/DL (6.4-8.2)
[2023-04-23 11:51] LABS: BILIRUBIN,TOTAL 0.3 MG/DL (0.1-1.0)
[2023-04-23 11:52] LABS: CREATININE SERUM 0.67 MG/DL (0.60-1.30)
[2023-04-23] MEDS ORDERED: NS 100 ML (IVPB) BAG IV ONE (12:15)
[2023-04-23] MEDS ORDERED: IOHEXOL 350 MG/ML 100 ML (OMNIPAQUE 350) VIAL IV ONE (12:15)
--- NOTE | 2023-04-23 12:44 | Diagnostic Imaging Report ---
EXAMINATION: CT abdomen and pelvis with intravenous contrast. TECHNIQUE: Multiple contiguous axial images were obtained through the abdomen and pelvis after the uneventful administration of intravenous contrast. All CT scans use one or more of the following dose optimizing techniques: automated exposure control, MA and/or KvP adjustment based on patient size and exam type or iterative reconstruction. HISTORY: Abdominal pain, nonverbal and developmental delay. COMPARISON: 11/16/2022 FINDINGS: Lung bases: The lung bases are clear. Solid organs: The liver is normal without focal lesion. The gallbladder is surgically absent. There is no biliary ductal dilation. Pancreas is normal. Spleen is normal. Adrenal glands are normal. There is a mildly complex lesion within the lateral right mid kidney measuring 2.0 x 2.6 cm which may demonstrate some peripheral enhancement. There was a large but simple-appearing cyst at this location on a CT of 04/17/2020 which showed interval decompression on 06/29/2022. Bowel: There is a moderate hiatal hernia present. Fluid is present within the distal thoracic esophagus and herniated gastric lumen. There is a percutaneous gastrostomy tube present. There is a large volume of stool seen throughout the colon. The appendix is normal. Peritoneum: There is no intraperitoneal free fluid or free air. No suspicious lymphadenopathy. Vasculature: Normal without aneurysm. Musculoskeletal: Degenerative changes of the spine without suspicious osseous lesion or compression fracture. Pelvis: The uterus and adnexa are normal. The urinary bladder is normal. IMPRESSION: 1. No acute abnormality in the abdomen or pelvis. 2. Indeterminate right renal cortical exophytic lesion. This is in the location of a decompressed simple right renal cyst with new mild peripheral enhancement. This could represent a mildly comminuted or infected cyst although neoplasm would remain in the differential. Recommend short-term CT or MRI follow-up renal mass protocol. 3. Fluid distention of the distal esophagus with hiatal hernia present. Dictated by: Dictated on workstation # [id number]
[2023-04-23] MEDS ORDERED: METR-145 PO (13:15)
[2023-04-23] MEDS ORDERED: CEFD300C3 PO (13:15)
[2023-04-23 13:27] VITALS: BP 123/77
== END 2023-04-23 13:29 | disposition home or self-care (01) ==
LOC: EDUNIT# 10:08 → ER 10:09
DX: K59.00 Constipation, unspecified (principal); N28.89 Other specified disorders of kidney and ureter; Z90.49 Acquired absence of other specified parts of digestive tract; Z93.6 Other artificial openings of urinary tract status
CPT/HCPCS: 36415; 74177; 80053; 81000; 83690; 85025; 85610; 85730; 86141; 96374; 96375